=== PATIENT | female | born 1990 | race Caucasian/White ===

== ENCOUNTER 2023-07-24 13:07 | Outpatient (OUT) | payer OTHER, SELFPAY ==
--- NOTE | 2023-07-24 13:12 | US_ITS ---
[address] [address] Patient Name: JESSEE JEFFERS MRN: [id number] date: 1990 Sex: F Assigned Patient Location: [facility] Current Patient Location: [facility] Accession/Order Number: [id number] Exam Date: 07/24/2023 13:12 Report Date: 07/24/2023 14:24 At the request of: TEE RUBIN Procedure: US OB transvaginal EXAMINATION: US OB transvaginal HISTORY: MISSED MENSES COMPARISON: No relevant comparison available. FINDINGS: GESTATIONAL SAC: Present and normal appearing. YOLK SAC: Present and normal appearing. POLE: Present and normal appearing. CARDIAC: Present. UTERUS: Normal size and appearance. OVARIES: Right: Normal. Left: Normal. CERVIX: 3.7 cm in length and closed. CUL-DE-SAC: Normal. OTHER: None. AGE BY LMP: 8 weeks 4 days MEHUL BY LMP: 02/29/2024 AGE BY US CRL: 7 weeks 0 days MEHUL BY US CRL: 03/11/2024 US/US OB transvaginal IMPRESSION: 1. Single live intrauterine . Electronically authenticated by: JENNIFER HARTLEY Date: 07/24/2023 14:24
== END 2023-07-24 13:08 | disposition home or self-care (01) ==
LOC: NOMS 13:07
PROVIDERS: Visit Provider Obstetrics & Gynecology
DX: Z34.91 Encounter for supervision of normal pregnancy, unspecified, first trimester (principal); Z3A.01 Less than 8 weeks gestation of pregnancy; N92.6 Irregular menstruation, unspecified
CPT/HCPCS: 76817

== ENCOUNTER 2023-10-21 13:29 | Outpatient (REF) | payer OTHER, SELFPAY ==
[2023-10-27 10:07] LABS: Age Gdln ACOG Testing Note (.); HPV Aptima Negative (Negative); IGP, Aptima HPV, rfx 16/18,45 Note (.)
== END 2023-10-21 13:30 | disposition home or self-care (01) ==
LOC: LAB 13:29
PROVIDERS: Visit Provider Obstetrics & Gynecology
DX: Z01.419 Encounter for gynecological examination (general) (routine) without abnormal findings (principal)
CPT/HCPCS: 87624; 88175

== ENCOUNTER 2023-12-20 09:59 | Outpatient (OUT) | payer OTHER, SELFPAY ==
--- NOTE | 2023-12-20 | US_ITS ---
[address] [address] Patient Name: JESSEE JEFFERS MRN: [id number] date: 1990 Sex: F Assigned Patient Location: US Current Patient Location: Accession/Order Number: [id number] Exam Date: 12/20/2023 10:15 Report Date: 12/23/2023 13:32 At the request of: TEE RUBIN Procedure: US OB growth EXAMINATION: US OB growth HISTORY: THYROID DISEASE E07.9 COMPARISON: Ultrasound OB transvaginal 07/24/2023 FINDINGS: Heart Rate: 150 bpm Amniotic Fluid Volume: 12.4 cm; normal range Number: 1 Position: CEPHALIC BIOMETRY: BPD: 7.49 cm; 30 weeks 0 days; 88.20 % HC: 27.80 cm; 30 weeks 3 days; 82 % AC: 26.51 cm; 30 weeks 4 days; 95.40 % FL: 5.69 cm; 29 weeks 6 days; 79.50 % EFW: 1552.10 g; 96.80 % FL/AC: 21.48 FL/BPD: 76.01 HC/AC: 1.05 GESTATIONAL AGE: Age by EDC: 20 weeks 2 days MEHUL by EDC: 2024-03-11 Age by US: 30 weeks 2 days MEHUL by US: 2024-02-26 US/US OB growth IMPRESSION: 1. Single live intrauterine with growth detailed above. 2. Estimated weight is at 97th percentile. Electronically authenticated by: JENNIFER HARTLEY Date: 12/23/2023 13:32
== END 2023-12-20 10:00 | disposition home or self-care (01) ==
LOC: US 09:59
PROVIDERS: Visit Provider Obstetrics & Gynecology
DX: E07.9 Disorder of thyroid, unspecified (principal); Z3A.30 30 weeks gestation of pregnancy
CPT/HCPCS: 76816

== ENCOUNTER 2024-01-17 07:02 | Outpatient (OUT) | payer OTHER, SELFPAY ==
--- OUTSIDE RECORDS SUMMARY | 2024-01-17 07:05 | XMS_ITS | CCD ---
Author Organization [facility] ion Partnership HYPNOTHERAPIST [facility] Care Team Providers Care Biology Instructor Name Role Phone Unavailable Primary Care Provider UnavailCHELSEA Murrieta Primary Care Physician Janice De La Rosa Unavailable Unavailable Unavailable Primary Care Provider UnavailPRAVIN Mclean Admitting Unavailable PRAVIN SANDERSON Attending Unavailable PEDRO, DR OLIVEIRA Primary Care Unavailable PRAVIN SANDERSON Consulting Unavailable PEDRO, DR OLIVEIRA Admitting Unavailable PEDRO, DR OLIVEIRA Attending Unavailable MISC, DR GABRIEL Primary Care Unavailable PEDRO, DR OLIVEIRA Consulting Unavailable ZIEBER, DR JENNIFER Escudero Consulting Unavailable PEDRO, DR OLIVEIRA Admitting Unavailable PEDRO, DR OLIVEIRA Attending Unavailable PEDRO, DR OLIVEIRA Primary Care Unavailable WESLACO, DR EMELIA Luna Consulting Unavailable PEDRO, DR OLIVEIRA Consulting Unavailable Chayo Anen Attending Unavailable Roxanne MOSLEY Attending Unavailable Asaad, Imad Unavailable Anupama Brown DO Primary Care Provider Emile Mesa MD Unavailable Guillaume Vasquez DO Unavailable Anupama Brown DO Primary Care Provider Emile Mesa MD Unavailable Chelsea Kraus DO Primary Care Provider [phone] ASIF SCHAEFER Attending Unavailable CHELSEA KRAUS Referring Unavailable CHELSEA KRAUS Primary Care Unavailable Anupama Brown MD Primary Care Provider ASIF SCHAEFER Attending Unavailable EFRA, CHELSEA A Referring Unavailable EFRA, CHELSEA A Primary Care Unavailable EFRA, CHELSEA A Referring Unavailable EFRA, CHELSEA A Primary Care Unavailable HECTOR MANCERA Attending Unavailable EFRA, CHELSEA A Referring Unavailable EFRA, CHELSEA A Primary Care Unavailable KEVIN, ANUPAMA DANIELLE Primary Care Unavailabl e [facility] Unavailabl e ROSAS MCKINNEY Attending Unavailable ABHYANKAR, RONI Referring Unavailable KEVIN, ANUPAMA DANIELLE Primary Care Unavailabl e ABHYANKAR, RONI Referring Unavailable [facility] Unavailabl e PEDRO, GUILLAUME R Referring Unavailable KEVIN, ANUPAMA DANIELLE Primary Care Unavailabl e KEVIN, [facility] Primary Care Unavailabl e ELISEO SANDERSON Referring Unavailable [facility] Primary Care Unavailabl e KEVIN, [facility] Primary Care Unavailabl e PEDRO, GUILLAUME R Referring Unavailable PEDRO, GUILLAUME R Referring Unavailable KEVIN, ANUPAMA DANIELLE Primary Care Unavailabl e KEVIN, [facility] Primary Care Unavailabl e ASIF SCHAEFER Referring Unavailable Kevin DO Anupama Martin Primary Care Provider Moshe PALOMINO, Imkatlyn Unavailable Pedro DO, Guillaume R Unavailable MICHAEL VASQUEZY Attending Unavailable PEDRO, GUILLAUME Attending Unavailable PEDRO, GUILLAUME Attending Unavailable KIN ELISEO Attending Unavailable PEDRO, GUILLAUME Attending Unavailable KIN ELISEO Attending Unavailable PEDRO, GUILLAUME Attending Unavailable PEDRO, GUILLAUME Attending Unavailable PEDRO, GUILLAUME Attending Unavailable Unavailable Primary Care Provider Unavailabl e Medications Current Medications Medication Drug Class(es) Dates Sig (Normalized) Sig (Original) amoxicillin 500 mg oral capsule (1 source) Penicillin-class Antibacterial Start: 05-26-2022 End: 06-05-2022 take 1 capsule by mouth every twelve hours amoxicillin 500 mg Cap 500 mg = 1 cap(s), Oral, q12hr, X 10 day(s), # 20 cap(s), Refills(s) 0, Pharmacy: [facility], 172, cm, 05/26/22 9:34:00 EST, Height/Length Dosing, 83.6, kg, 05/26/22 9:34:00 EST, Weight Dosing Start Date: 05/26/22 Stop Date: 06/05/22 Status: Ordered Biotin (13 sources) Start: 05-26-2022 biotin Refills(s) 0 Start Date: 05/26/22 Status: Ordered BIOTIN ORAL Take by mouth. Active biotin 1 MG caps ule Biotin 0 Active biotin 5 mg tabl et Take by mouth. 0 Active BIOTIN ORAL Take by mouth. 0 Active Comment on above: Take by mouth. desogestrel 0.15 mg / ethinyl estradiol 0.03 mg oral tablet (2 sources) Progestin, Estrogen Start: 4 End: 4 take 1 tablet by mouth in the morning, then take 1 tablet by mouth once daily desogestrel-ethinyl estradiol (Apri) 0.15-30 MG-MCG tablet Indications: Menorrhagia with regular cycle Take 1 tablet by mouth in the morning. Take 1 tablet by mouth daily. 90 tablet 0 05/29/2023 08/27/2023 Active levothyroxine sodium 0.2 mg oral tablet (20 sources) l-Thyroxine Start: 3 take 1 tablet by mouth once daily levothyroxine (SYNTHROID) 200 mcg tablet Take 1 tablet by mouth once daily. 90 tablet 11/18/2022 Active Start: 05-26-2022 levothyroxine 175 mcg (0.175 mg) oral capsule Refills(s) 0 Start Date: 05/26/22 Status: Ordered Start: 09-11-2021 End: 11-19-2022 take 1 tablet by mouth once daily levothyroxine (SYNTHROID) 175 mcg tablet Take 1 tablet by mouth once daily. 90 tablet 3 09/11/2021 11/19/2022 Discontinued (Dosage adjustment) take 1 tablet by suzanna th every twenty-four hours Levothyroxine Sodium 175 MCG 1 tablet Orally Once a day for 90 days Active Comment on above: Take 1 tablet by suzanna th once daily. Take 1 tablet by suzanna th once daily in the morning lisinopril 40 mg oral tablet (20 sources) Angiotensin Converting Enzyme Inhibitor Start: 11-13-2022 take 1 tablet by mouth once daily lisinopril (ZESTRIL) 40 mg tablet Take 1 tablet by mouth once daily. 90 tablet 3 11/13/2022 Active Start: 01-30-2022 End: 02-25-2023 take 1 tablet by mouth once daily lisinopril (ZESTRIL) 20 mg tablet Take 1 tablet by mouth once daily. Take 20-30 minutes before eating or taking other medications 30 tablet 5 01/30/2022 02/25/2023 Discontinued Start: 11-01-2021 End: 02-25-2023 take 1 tablet by mouth once daily lisinopril (ZESTRIL, PRINIVIL) 10 mg tablet Take 1 tablet by mouth once daily. 30 tablet 2 11/01/2021 02/25/2023 Discontinued Start: 09-11-2021 End: 02-25-2023 take 1 tablet by mouth once daily lisinopril (ZESTRIL, PRINIVIL) 5 mg tablet Take 1 tablet by mouth once daily. 30 tablet 2 09/11/2021 02/25/2023 Discontinued Comment on above: Take 1 tablet by suzanna th once daily. Take 1 tablet by suzanna th once daily. Take 20-30 minutes before eating or taking other medications evening dosing 24 hr methylphenidate hydrochloride 20 mg extended release oral capsule (7 sources) Central Nervous System Stimulant Start: End: take 1 capsule by mouth once daily methylphenidate HCl (JORNAY PM) 20 mg capsule,del rel,ext rel sprink Indications: Attention deficit hyperactivity disorder (ADHD), predominantly inattentive type Take 20 mg by mouth nightly for 15 days. Max Daily Amount: 20 mg 15 each 0 05/02/2023 05/17/2023 Active Start: 12-17-2022 End: 02-25-2023 take 1 tablet by mouth once daily in the morning methylphenidate ER 27 mg biphasic tablet Take 1 tablet by mouth every morning. Max Daily Amount: 27 mg 15 tablet 12/17/2022 02/25/2023 Discontinued Start: 12-03-2022 End: 02-25-2023 take 1 tablet by mouth once daily in the morning methylphenidate ER 18 mg biphasic tablet Take 1 tablet (18 mg total) by mouth every morning. Max Daily Amount: 18 mg 15 tablet 12/03/2022 02/25/2023 Discontinued Comment on above: Take 1 tablet (18 mg total) by mouth every morning. Max Daily Amount: 18 mg Take 1 tablet by suzanna th every morning. Max Daily Amount: 27 mg mupirocin 0.02 mg/mg topical ointment (13 sources) RNA Synthetase Inhibitor Antibacterial Start: 2 mupirocin (BACTROBAN) 2 % ointment Apply to affected area three times a day 22 g 09/11/2021 Active Comment on above: Apply to affected ar ea three times a day omeprazole 20 mg delayed release oral capsule (20 sources) Proton Pump Inhibitor Start: 3 take 1 capsule by mouth twice daily omeprazole (PRILOSEC) 20 mg capsule Take 1 capsule by mouth twice daily. 180 capsule 1 11/13/2022 Active Start: 01-30-2022 End: 02-25-2023 take 1 capsule by mouth once daily omeprazole (PRILOSEC) 20 mg capsule Take 1 capsule by mouth once daily. 20-30 minutes before eating or taking other medications 30 capsule 5 01/30/2022 02/25/2023 Discontinued Start: 09-11-2021 take 1 capsule by mo ut once daily in the morning omeprazole (PRILOSEC) 40 mg capsule Take 1 capsule by mouth once daily in the morning, wait 20-30 minutes before eating or taking other medications 90 capsule 1 12/31/2021 Active Comment on above: Take 1 capsule by mo ut once daily. Wait 20-30 minutes before eating or taking other medications. Take 1 capsule by mo ut once daily in the morning, wait 20-30 minutes before eating or taking other medications Take 1 capsule by mo ut once daily. 20-30 minutes before eating or taking other medications Take 1 tablet by suzanna once daily in the morning, 20-30 minutes before eating or taking other medications Take 1 capsule by mo ut twice daily. PNV no.95/ferrous fum/folic ac ( ORAL) (8 sources) PNV no.95/ferrou s fum/folic ac ( ORAL) Take by mouth. Active PNV no.95/ferrou s fum/folic ac ( ORAL) Take by mouth. 0 Active Comment on above: Take by mouth. 25/iron fum/folic/dha (-1 ORAL) (1 source) take 1 tablet by mouth once daily 25/iron fum/folic/dha (-1 ORAL) Take 1 tablet by mouth daily. 0 Active Multivitamins (1 source) Start: 3 take 1 tablet by mouth once daily Multivitamins 1 tab(s), Oral, Daily, Refill(s) 0 Start Date: 05/26/22 Status: Ordered MV-Min-Fe Fum-FA-DHA ( 1 PO) (3 sources) MV-Min- Fe Fum-FA-DHA ( 1 PO) Take by mouth. 0 Active traZODone hydrochloride 100 mg oral tablet (11 sources) Serotonin Reuptake Inhibitor Start: 3 traZODone (Desyrel) 100 MG tablet Take 100 mg by mouth as needed at bedtime. 0 02/26/2023 Active Start: 10-30-2022 End: 02-25-2023 take 1 tablet by mouth at bedtime as needed for sleep traZODone (DESYREL) 50 mg tablet Take 1 tablet (50 mg total) by mouth at bedtime as needed for sleep. 30 tablet 6 01/29/2023 Active Comment on above: Take 1 tablet (50 mg total) by mouth nightly as needed for sleep. Take 1 tablet (50 mg total) by mouth at bedtime as needed for sleep. Completed/Discontinued Medications Medication Drug Class(es) Dates Sig (Normalized) Sig (Original) amphetamine aspartate 2.5 mg / amphetamine sulfate 2.5 mg / dextroamphetamine saccharate 2.5 mg / dextroamphetamine sulfate 2.5 mg oral tablet (7 sources) Central Nervous System Stimulant Start: 03-27-2023 End: 05-02-2023 take 1 tablet by mouth in the morning dextroamphetamine- amphetamine (AdderalL) 10 mg tablet Indications: Attention deficit hyperactivity disorder (ADHD), predominantly inattentive type Take 1 tablet by mouth in the morning. Take 1 tablet by mouth after lunch. 30 tablet 0 03/27/2023 05/02/2023 Discontinued (Alternate therapy) Start: 02-11-2023 take 1 capsule by [facility] once daily in the morning amphetamine-dextroamphetamine XR (ADDERA LL XR) 20 mg capsule Take 1 capsule (20 mg total) by mouth in the morning for 15 days. Max Daily Amount: 20 mg. 15 capsule 02/11/2023 Active Start: 01-29-2023 End: 02-25-2023 take 1 capsule by mouth once daily in the morning amphetamine-dextroamphetamine XR (ADDERA LL XR) 10 mg capsule Take 1 capsule (10 mg total) by mouth in the morning for 15 days. Max Daily Amount: 10 mg. 15 capsule 01/29/2023 02/25/2023 Discontinued Comment on above: Take 1 capsule (10 m g total) by mouth in the morning for 15 days. Max Daily Amount: 10 mg. Take 1 capsule (20 m g total) by mouth in the morning for 15 days. Max Daily Amount: 20 mg. atomoxetine 40 mg oral capsule (12 sources) Norepinephrine Reuptake Inhibitor Start: End: take 1 capsule by mouth once daily in the morning atomoxetine (STRATTERA) 40 mg capsule Take 1 capsule by mouth once daily in the morning. 30 capsule 11/07/2021 02/25/2023 Discontinued Comment on above: Take 1 capsule by mo uth once daily in the morning. bifidobacterium infantis 4 mg oral capsule (7 sources) Start: End: take 1 capsule by mouth once daily Bifidobacterium Infantis (ALIGN) 4 mg cap Take 1 capsule by mouth once daily. 30 capsule 3 07/10/2022 02/25/2023 Discontinued Comment on above: Take 1 capsule by mo uth once daily. citalopram 20 mg oral tablet (13 sources) Serotonin Reuptake Inhibitor Start: End: take 1 tablet by mouth once daily citalopram (CELEXA) 20 mg tablet Indications: mental disorders of mother Take 1 tablet by mouth daily 30 tablet 3 10/12/2020 02/25/2023 Discontinued Comment on above: Take 1 tablet by suzanna th daily doxycycline hyclate 100 mg oral capsule (8 sources) Tetracycline-class Drug Start: End: take 1 capsule by mouth twice daily doxycycline hyclate (VIBRAMYCIN) 100 mg capsule Take 1 capsule by mouth twice daily. 28 capsule 12/12/2021 02/25/2023 Discontinued Comment on above: Take 1 capsule by [facility] twice daily. escitalopram 20 mg oral tablet (20 sources) Serotonin Reuptake Inhibitor Start: 022 End: 023 take 1 tablet by mouth once daily escitalopram oxalate (LEXAPRO) 20 mg tablet Take 1 tablet by mouth once daily. 90 tablet 1 09/11/2021 02/25/2023 Discontinued Start: 08-16-2021 End: 02-25-2023 take 1 tablet by mouth once daily escitalopram oxalate (LEXAPRO) 10 mg tablet Take 1 tablet by mouth once daily. 30 tablet 2 08/16/2021 02/25/2023 Discontinued Comment on above: Take 1 tablet by [facility] once daily. fluconazole 150 mg oral tablet (8 sources) Azole Antifungal Start: 02-07-20 End: 02-26-20 take 1 tablet by mouth once fluconazole (DIFLUCAN) 150 mg tablet 1 (one) tablet by mouth one time dose 1 tablet 1 02/06/2022 02/25/2023 Discontinued Comment on above: 1 (one) tablet by [facility] one time dose hydrOXYzine hydrochloride 50 mg oral tablet (17 sources) Antihistamine Start: 08-09-19 End: 02-26-20 take 1 tablet by mouth every eight hours as needed hydrOXYzine HCl (ATARAX) 50 mg tablet Take 1 tablet by mouth three times daily as needed. 90 tablet 3 08/08/2022 02/25/2023 Discontinued Start: 10-16-2021 End: 02-25-2023 take 1 tablet by mouth three times daily as needed hydrOXYzine HCl (ATARAX) 25 mg tablet Take 1 tablet by mouth three times daily as needed. 90 tablet 10/16/2021 02/25/2023 Discontinued Comment on above: Take 1 tablet by [facility] three times daily as needed. 10 ml lidocaine hydrochloride 10 mg/ml injection (1 source) Antiarrhythmic, Amide Local Anesthetic Start: 3 End: 3 lidocaine (PF) 10 mg/mL (1 %) 4 mL injection (XYLOCAINE) 1 ml medroxyPROGESTERone acetate 150 mg/ml prefilled syringe (20 sources) Progestin Start: 1 End: medroxyPROGESTERone (DEPO-PROVERA) 150 mg/mL Indications: Excessive or frequent menstruation Inject 1 (one) Milliliter every 12 weeks 1 mL 3 09/26/2020 02/25/2023 Discontinued Start: 08-23-2020 End: 02-25-2023 medroxyPROGESTERone (DEPO-WV OVERA) 150 mg/mL injection Indications: Excessive or frequent menstruation Inject 1 mL intramuscularly every 11-12 weeks 1 mL 3 08/23/2020 02/25/2023 Discontinued Comment on above: Inject 1 mL intramus cularly every 11-12 weeks Inject 1 (one) Mara liter every 12 weeks 20 ml ropivacaine hydrochloride 5 mg/ml injection (1 source) Amide Local Anesthetic Start: End: ROPivacaine (PF) 5 mg/mL (0.5 %) 4 mL injection (NAROPIN) 1 ml triamcinolone acetonide 40 mg/ml injection (1 source) Corticosteroid Start: End: triamcinolone acetonide 80 mg injection (KeNALog 40) 24 hr venlafaxine 150 mg extended release oral capsule (20 sources) Serotonin and Norepinephrine Reuptake Inhibitor Start: End: take 1 capsule by mouth every twenty-four hours in the morning venlafaxine ER (EFFEXOR XR) 150 mg 24 hr capsule Take 1 capsule (150 mg total) by mouth in the morning. 30 capsule 6 01/29/2023 10/16/2023 Discontinued (Discontinued by another Health Care Provider) Start: 08-08-2022 End: 02-25-2023 take 1 capsule by mouth every twenty-four hours in the morning venlafaxine ER (EFFEXOR XR) 37.5 mg 24 hr capsule Take 1 capsule (37.5 mg total) by mouth in the morning. 30 capsule 3 08/08/2022 02/25/2023 Discontinued Start: 05-26-2022 Effexor XR 75 mg Cap-ER Refills(s) 0 Start Date: 05/26/22 Status: Ordered Start: 12-05-2021 End: 02-25-2023 take 1 capsule by mouth once daily venlafaxine ER (EFFEXOR XR) 75 mg 24 hr capsule Take 1 capsule by mouth once daily. 90 capsule 1 07/24/2022 02/25/2023 Discontinued Start: 11-07-2021 End: 02-25-2023 take 1 capsule by mouth once daily at mealtime venlafaxine ER (EFFEXOR XR) 37.5 mg 24 hr capsule Take 1 capsule by mouth once daily with food. 30 capsule 11/07/2021 02/25/2023 Discontinued Effexor Active Comment on above: Take 1 capsule by mo uth once daily with food. Take 1 capsule by mo uth once a day Take 1 capsule by mo uth once daily. Take 1 capsule (37.5 mg total) by mouth in the morning. Take 1 capsule (150 mg total) by mouth in the morning. Problems Active Problems Problem Classification Problem Date Documented Da te Episodic/Chronic Anxiety disorders (4 sources) Generalized anxiety disorder; Translations: [Generalized anxiety disorder] Onset: 08-08-2022 05-02-2023 Chronic Attention-deficit, conduct, and disruptive behavior disorders (2 sources) Attention deficit hyperactivity disorder, predominantly inattentive type; Translations: [Attention-deficit hyperactivity disorder, predominantly inattentive type] Onset: 12-03-2022 05-02-2023 Chronic Attention-deficit, conduct, and disruptive behavior disorders (2 sources) Attention-deficit hyperactivity disorder, predominantly inattentive type; Translations: [Attention-deficit hyperactivity disorder, predominantly inattentive type] Onset: 12-03-2022 Chronic Deficiency and other anemia (1 source) Vegan's anemia; Translations: [Other dietary vitamin B12 deficiency anemia] 11-15-2022 Episodic Disorders of lipid metabolism (2 sources) Raised low density lipoprotein cholesterol; Translations: [Pure hypercholesterolemi a, unspecified] 11-15-2022 Chronic Essential hypertension (1 source) Malignant essential hypertension; Translations: [Essential (primary) hypertension] 11-15-2022 Chronic Genitourinary symptoms and ill-defined conditions (2 sources) Dysuria; Translations: [Dysuria] Episodic Hypertension complicating ; childbirth and the puerperium (1 source) Unspecified maternal hypertension, first trimester; Translations: [Unspecified maternal hypertension, first trimester] Onset: 09-16-2023 Chronic Menstrual disorders (5 sources) Irregular periods; Translations: [Irregular menstruation, unspecified] Onset: 06-02-2023 06-02-2023 Chronic Mood disorders (5 sources) Recurrent major depressive episodes, mild ; Translations: [Major depressive disorder, recurrent, mild] Onset: 08-08-2022 Chronic Other bone disease and musculoskeletal deformities (6 sources) Disorder of thigh; Translations: [Disorder of bone, unspecified] Episodic Other connective tissue disease (2 sources) Trochanteric bursitis; Translations: [Trochanteric bursitis, right hip] Onset: 02-25-2023 02-25-2023 Episodic Other female genital disorders (4 sources) Abnormal uterine and vaginal bleeding, unspecified; Translations: [ABNORMAL UTERINE VAGINAL BLEED UNS] Onset: 02-09-2022 Chronic Other female genital disorders (1 source) Polyp of corpus uteri; Translations: [POLYP OF CORPUS UTERI] Onset: 02-13-2022 Episodic Other gastrointestinal disorders (1 source) Constipation; Translations: [Constipation, unspecified] Episodic Other gastrointestinal disorders (1 source) Flatulence, eructation and gas pain; Translations: [Abdominal distension (gaseous)] Episodic Other gastrointestinal disorders (1 source) Altered bowel function; Translations: [Change in bowel habit] Episodic Other gastrointestinal disorders (1 source) Diarrhea; Translations: [Diarrhea, unspecified] Episodic Other gastrointestinal disorders (1 source) Constipation, unspecified Episodic Other gastrointestinal disorders (1 source) Change in bowel habit Episodic Other gastrointestinal disorders (1 source) Diarrhea, unspecified Episodic Other gastrointestinal disorders (1 source) Abdominal distension (gaseous) Episodic Other non-traumatic joint disorders (2 sources) Hip pain; Translations: [Pain in right hip] Onset: 02-25-2023 02-25-2023 Episodic Other non-traumatic joint disorders (1 source) Pain in right hip joint; Translations: [Pain in right hip] 02-25-2023 Episodic Other nutritional; endocrine; and metabolic disorders (1 source) Overweight in adulthood with body mass index of 25 or more but less than 30; Translations: [Body mass index (BMI) 28.0-28.9, adult] Onset: 05-26-2022 Episodic Other screening for suspected conditions (not mental disorders or infectious disease) (3 sources) No current problems or disability; Translations: [Encounter for other specified screening] Onset: 10-16-2023 10-07-2013 Episodic Other upper respiratory infections (1 source) Streptococcal sore throat; Translations: [Streptococcal pharyngitis] Onset: 05-26-2022 Episodic Residual codes; unclassified (1 source) Insomnia, unspecified; Translations: [Insomnia, unspecified] Onset: 06-04-2023 Episodic Spondylosis; intervertebral disc disorders; other back problems (3 sources) Acute back pain with sciatica; Translations: [Lumbago with sciatica, left side] Onset: 02-25-2023 Episodic Sprains and strains (1 source) Sprain of left foot; Translations: [Unspecified sprain of left foot, initial encounter] Onset: 02-23-2022 Episodic Thyroid disorders (6 sources) Hypothyroidism; Translations: [Hypothyroidism, unspecified] Chronic Unclassified (1 source) mfm video visit Onset: 10-16-2023 Past or Other Problems Problem Classification Problem Date Documented Da te Episodic/Chronic Abdominal pain (5 sources) Pain in pelvis; Translations: [Pelvic and perineal pain] Onset: 01-08-2022 Episodic Mood disorders (1 source) Mood disorders Onset: 08-08-2022 08-08-2022 Other bone disease and musculoskeletal deformities (2 sources) Disorder of bone, unspecified; Translations: [Disorder of bone and cartilage, unspecified] Onset: 02-20-2023 02-25-2023 Episodic Other complications of (1 source) Hypothyroidism in ; Translations: [Endocrine, nutritional and metabolic diseases complicating , unspecified trimester] Onset: 07-02-2019 07-02-2019 Episodic Results Test Name Value Interpretation Reference Range Facil ity T4 Free SerPl-mCncon 024 Free T4 [Mass/Vol] 0.9 ng/dL Normal 0.9-1.[address] [facility] Comment on above: Order Comment: Speci men Type: BLOOD SPECIMEN Ordering Facility: [facility] Karina Address: [address] [place] [address] [place] [address] Performed By: #### 3 024-7, 3016-3 #### [facility] CLIA [id number] [address] [place] [address] [place] TSH SerPl-aCncon 01-05-2024 TSH Qn 1.220 m[IU]/L Normal 0.270-4.200 [facility] Comment on above: Order Comment: Tammy mares Type: BLOOD SPECIMEN Ordering Facility: [facility] Karina Address: [address] [place], [place] [address] [place] [address] Result Comment: If t he patient is , TSH reference range varies by gestational period: First Trimester (weeks 9-12): 0.180-2.990 mIU/L Second Trimester: 0.110-3.980 mIU/L Third Trimester: 0.480-4.710 mIU/L Manuel Grayson et al. A Practical Approach for the Verifications and Determination of Site- and Trimester-Specific Reference Intervals for Thyroid Function tests in . Thyroid, 2019:29:3:412-420. Emanuel Nassar, et al. 2017 Guidelines of the [place] [employer] for the Diagnosis and Management of Thyroid Disease during and the . Thyroid, 2017:27:3:315-389. Performed By: #### 3 024-7, 3016-3 #### [facility] CLIA [id number] [address] [place] [address] [place] T4 Free SerPl-mCncon 024 Free T4 [Mass/Vol] 1.1 ng/dL Normal 0.9-1.[address] [facility] Comment on above: Order Comment: Tammy mares Type: BLOOD SPECIMEN Ordering Facility: External Submitter Address: , , Performed By: #### 3 1201-7, 5195-3 #### [facility] CLIA [id number] [address] [place], [place] [id number] [place] TSH SerPl-aCncon 12-08-2023 TSH Qn 0.607 m[IU]/L Normal 0.270-4.200 [facility] Comment on above: Order Comment: Tammy mares Type: BLOOD SPECIMEN Ordering Facility: External Submitter Address: , , Result Comment: If t he patient is , TSH reference range varies by gestational period: First Trimester (weeks 9-12): 0.180-2.990 mIU/L Second Trimester: 0.110-3.980 mIU/L Third Trimester: 0.480-4.710 mIU/L Manuel Grayson et al. A Practical Approach for the Verifications and Determination of Site- and Trimester-Specific Reference Intervals for Thyroid Function tests in . Thyroid, 2019:29:3:412-420. Emanuel Nassar et al. 2017 Guidelines of the [place] [employer] Association for the Diagnosis and Management of Thyroid Disease during and the . Thyroid, 2017:27:3:315-389. Performed By: #### 3 1201-7, 5194-3 #### [facility] CLIA [id number] [address] [place] [address] [place] CBC W Auto Differential pane l (Bld)on 11-20-2023 Basophils (Bld) [#/Vol] 0.04 10*3/uL Normal <0.11 [facility] Comment on above: Order Comment: Speci men Type: BLOOD SPECIMEN Ordering Facility: External Submitter Address: , , Performed By: #### 3 1201-7, 3 #### [facility] CLIA [id number] [address] [place] [address] [place] Basophils/100 WBC (Bld) 0.6 % Normal [facility] Comment on above: Order Comment: Speci men Type: BLOOD SPECIMEN Ordering Facility: External Submitter Address: , , Performed By: #### 3 1201-7, 3 #### [facility] CLIA [id number] [address] [place] [address] [place] Differential cell count method Nom (Bld) Auto Normal [facility] Comment on above: Order Comment: Speci men Type: BLOOD SPECIMEN Ordering Facility: External Submitter Address: , , Performed By: #### 3 1201-7, 3 #### [facility] CLIA [id number] [address] [place] [address] [place] Eosinophils (Bld) [#/Vol] 0.05 10*3/uL Normal <0.46 [facility] Comment on above: Order Comment: Speci men Type: BLOOD SPECIMEN Ordering Facility: External Submitter Address: , , Performed By: #### 3 120-7, 5194-06 #### [facility] CLIA [id number] [address] [place] [address] [place] Eosinophils/100 WBC (Bld) 0.7 % Normal [facility] Comment on above: Order Comment: Speci men Type: BLOOD SPECIMEN Ordering Facility: External Submitter Address: , , Performed By: #### 3 1207, 5194-06 #### [facility] CLIA [id number] [address] [place] [address] [place] Erythrocyte distribution width (RBC) [Ratio] 12.9 % Normal 11.5-15.0 [facility] Comment on above: Order Comment: Speci men Type: BLOOD SPECIMEN Ordering Facility: External Submitter Address: , , Performed By: #### 3 1207, 5194-06 #### [facility] CLIA [id number] [address] [place] [address] [place] Hematocrit (Bld) [Volume fraction] 35.0 % Low 36.0-46.0 [facility] Comment on above: Order Comment: Speci men Type: BLOOD SPECIMEN Ordering Facility: External Submitter Address: , , Performed By: #### 3 1207, 5194-06 #### [facility] CLIA [id number] [address] [place] [address] [place] Hemoglobin (Bld) [Mass/Vol] 11.4 g/dL Low 11.5-15.5 [facility] Comment on above: Order Comment: Speci men Type: BLOOD SPECIMEN Ordering Facility: External Submitter Address: , , Performed By: #### 3 1207, 5194-06 #### [facility] CLIA [id number] [address] [place] [address] [place] Immature granulocytes (Bld) [#/Vol] 10*3/uL Normal <0.10 [facility] Comment on above: Order Comment: Speci men Type: BLOOD SPECIMEN Ordering Facility: External Submitter Address: , , Performed By: #### 3 120-7, 3 #### [facility] CLIA [id number] [address] [place] [address] [place] Immature granulocytes/100 WBC (Bld) 0.3 % Normal [facility] Comment on above: Order Comment: Speci men Type: BLOOD SPECIMEN Ordering Facility: External Submitter Address: , , Performed By: #### 3 1207, 5194-06 #### [facility] CLIA [id number] [address] [place] [address] [place] Lymphocytes (Bld) [#/Vol] 1.25 10*3/uL Normal 1.00-4.00 [facility] Comment on above: Order Comment: Speci men Type: BLOOD SPECIMEN Ordering Facility: External Submitter Address: , , Performed By: #### 3 1207, 3 #### [facility] CLIA [id number] [address] [place] [address] [place] Lymphocytes/100 WBC (Bld) 18.3 % Normal [facility] Comment on above: Order Comment: Speci men Type: BLOOD SPECIMEN Ordering Facility: External Submitter Address: , , Performed By: #### 3 1207, 3 #### [facility] CLIA [id number] [address] [place] [address] [place] MCH (RBC) [Entitic mass] 29.9 pg Normal 26.0-34.0 [facility] Comment on above: Order Comment: Speci men Type: BLOOD SPECIMEN Ordering Facility: External Submitter Address: , , Performed By: #### 3 1201-7, 3 #### [facility] CLIA [id number] [address] [place] [address] [place] MCHC (RBC) [Mass/Vol] 32.6 g/dL Normal 30.5-36.0 [facility] Comment on above: Order Comment: Speci men Type: BLOOD SPECIMEN Ordering Facility: External Submitter Address: , , Performed By: #### 3 1207, 5194-06 #### [facility] CLIA [id number] [address] [place] [address] [place] MCV (RBC) [Entitic vol] 91.9 fL Normal 80.0-100.0 [facility] Comment on above: Order Comment: Speci men Type: BLOOD SPECIMEN Ordering Facility: External Submitter Address: , , Performed By: #### 3 1207, 5194-06 #### [facility] CLIA [id number] [address] [place] [address] [place] Monocytes (Bld) [#/Vol] 0.52 10*3/uL Normal <0.87 [facility] Comment on above: Order Comment: Speci men Type: BLOOD SPECIMEN Ordering Facility: External Submitter Address: , , Performed By: #### 3 1200-10, 5194-06 #### [facility] CLIA [id number] [address] [place] [address] [place] Monocytes/100 WBC (Bld) 7.6 % Normal [facility] Comment on above: Order Comment: Speci men Type: BLOOD SPECIMEN Ordering Facility: External Submitter Address: , , Performed By: #### 3 1207, 5194-06 #### [facility] CLIA [id number] [address] [place] [address] [place] Neutrophils (Bld) [#/Vol] 4.94 10*3/uL Normal 1.45-7.50 [facility] Comment on above: Order Comment: Speci men Type: BLOOD SPECIMEN Ordering Facility: External Submitter Address: , , Performed By: #### 3 1207, 5194-06 #### [facility] CLIA [id number] [address] [place] [id number] [place] Neutrophils/100 WBC (Bld) 72.5 % Normal [facility] Comment on above: Order Comment: Speci men Type: BLOOD SPECIMEN Ordering Facility: External Submitter Address: , , Performed By: #### 3 1201-7, 3 #### [facility] CLIA [id number] [address] [place] [address] [place] Nucleated RBC (Bld) [#/Vol] 10*3/uL Normal <0.01 [facility] Comment on above: Order Comment: Speci men Type: BLOOD SPECIMEN Ordering Facility: External Submitter Address: , , Performed By: #### 3 1207, 5194-06 #### [facility] CLIA [id number] [address] [place] [address] [place] Nucleated RBC/100 WBC (Bld) [Ratio] 0.0 /100 WBC Normal [facility] Comment on above: Order Comment: Speci men Type: BLOOD SPECIMEN Ordering Facility: External Submitter Address: , , Performed By: #### 3 1207, 5194-06 #### [facility] CLIA [id number] [address] [place] [address] [place] Platelet mean volume (Bld) [Entitic vol] 11.4 fL Normal 9.0-12.7 [facility] Comment on above: Order Comment: Speci men Type: BLOOD SPECIMEN Ordering Facility: External Submitter Address: , , Performed By: #### 3 1201-7, 3 #### [facility] CLIA [id number] [address] [place] [address] [place] Platelets (Bld) [#/Vol] 167 10*3/uL Normal 150-400 [facility] Comment on above: Order Comment: Speci men Type: BLOOD SPECIMEN Ordering Facility: External Submitter Address: , , Performed By: #### 3 1201-7, 5194-3 #### [facility] CLIA [id number] [address] [place] [address] [place] RBC (Bld) [#/Vol] 3.81 10*6/uL Low 3.90-5.20 [facility] Comment on above: Order Comment: Speci men Type: BLOOD SPECIMEN Ordering Facility: External Submitter Address: , , Performed By: #### 3 1201-7, 5194-3 #### [facility] CLIA [id number] [address] [place] [address] [place] WBC (Bld) [#/Vol] 6.82 10*3/uL Normal 3.70-11.00 [facility] Comment on above: Order Comment: Speci men Type: BLOOD SPECIMEN Ordering Facility: External Submitter Address: , , Performed By: #### 3 1201-7, 5194-3 #### [facility] CLIA [id number] [address] [place] [address] [place] GESTATIONAL GLUCOSE SCREEN, 1-HOUR, 50 GRAM, NON-FASTINGon 11-20-2023 Glucose [Mass/Vol] 97 mg/dL Normal 74-[address] [facility] Comment on above: Order Comment: Speci men Type: BLOOD SPECIMEN Ordering Facility: [facility] [place] Address: [address] [place] [address] , [place] [address] Result Comment: [facility] Congress of Obstetricians and Gynecologists (Alma/Adrián) guidelines state a gestational diabetes mellitus positive screen is made, in women not previously diagnosed with overt diabetes, when the 1 hr plasma glucose level is equal to or above 140 mg/dL. The [facility] [employer] and [facility] recommends a 135 mg/dL cutoff. Performed By: #### G LTGST #### [facility] CLIA [id number] [address] [place] [id number] [place] T4 Free SerPl-mCncon 024 Free T4 [Mass/Vol] 1.0 ng/dL Normal 0.9-1.[address] [facility] Comment on above: Order Comment: Speci men Type: BLOOD SPECIMEN Ordering Facility: [facility] [place] Address: [facility] [address] [place] [address] Performed By: #### 3 024-7, 3016-3 #### [facility] CLIA [id number] [address] [place] [address] [place] TSH SerPl-aCncon 10-22-2023 TSH Qn 4.510 m[IU]/L High 0.270-4.200 [facility] Comment on above: Order Comment: Speci vishnu Type: BLOOD SPECIMEN Ordering Facility: [facility] [place] Address: [facility] [address] [place] [address] Result Comment: If t he patient is , TSH reference range varies by gestational period: First Trimester (weeks 9-12): 0.180-2.990 mIU/L Second Trimester: 0.110-3.980 mIU/L Third Trimester: 0.480-4.710 mIU/L Manuel Grayson et al. A Practical Approach for the Verifications and Determination of Site- and Trimester-Specific Reference Intervals for Thyroid Function tests in . Thyroid, 2019:29:3:412-420. Emanuel Nassar, et al. 2017 Guidelines of the [place] Thyroid Association for the Diagnosis and Management of Thyroid Disease during and the . Thyroid, 2017:27:3:315-389. Performed By: #### 3 024-7, 3015-3 #### [facility] CLIA [id number] [address] [place] [address] [place] CBC W Auto Differential pane l (Bld)on 08-08-2023 Basophils (Bld) [#/Vol] 10*3/uL Normal <0.11 [facility] Comment on above: Order Comment: Speci men Type: BLOOD SPECIMEN Ordering Facility: External Submitter Address: , , Performed By: #### 5 7021-8 #### [facility] CLIA [id number] [address] [place] [address] Basophils/100 WBC (Bld) 0.3 % Normal [facility] Comment on above: Order Comment: Speci men Type: BLOOD SPECIMEN Ordering Facility: External Submitter Address: , , Performed By: #### 5 7021-8 #### [facility] CLIA [id number] [address] [place] [address] Differential cell count method Nom (Bld) Auto Normal [facility] Comment on above: Order Comment: Speci men Type: BLOOD SPECIMEN Ordering Facility: External Submitter Address: , , Performed By: #### 5 7021-8 #### [facility] CLIA [id number] [address] [place] [address] Eosinophils (Bld) [#/Vol] 0.06 10*3/uL Normal <0.46 [facility] Comment on above: Order Comment: Speci men Type: BLOOD SPECIMEN Ordering Facility: External Submitter Address: , , Performed By: #### 5 7021-8 #### [facility] CLIA [id number] [address] [place] [address] Eosinophils/100 WBC (Bld) 0.9 % Normal [facility] Comment on above: Order Comment: Speci men Type: BLOOD SPECIMEN Ordering Facility: External Submitter Address: , , Performed By: #### 5 7021-8 #### [facility] CLIA [id number] [address] [place] [address] Erythrocyte distribution width (RBC) [Ratio] 13.7 % Normal 11.5-15.0 [facility] Comment on above: Order Comment: Speci men Type: BLOOD SPECIMEN Ordering Facility: External Submitter Address: , , Performed By: #### 5 7021-8 #### [facility] CLIA [id number] [address] [place] [address] Hematocrit (Bld) [Volume fraction] 40.1 % Normal 36.0-46.0 [facility] Comment on above: Order Comment: Speci men Type: BLOOD SPECIMEN Ordering Facility: External Submitter Address: , , Performed By: #### 5 7021-8 #### [facility] CLIA [id number] [address] [place] [address] Hemoglobin (Bld) [Mass/Vol] 13.4 g/dL Normal 11.5-15.5 [facility] Comment on above: Order Comment: Speci men Type: BLOOD SPECIMEN Ordering Facility: External Submitter Address: , , Performed By: #### 5 7021-8 #### [facility] CLIA [id number] [address] [place] [address] Immature granulocytes (Bld) [#/Vol] 10*3/uL Normal <0.10 [facility] Comment on above: Order Comment: Speci men Type: BLOOD SPECIMEN Ordering Facility: External Submitter Address: , , Performed By: #### 5 7021-8 #### [facility] CLIA [id number] [address] [place] [address] Immature granulocytes/100 WBC (Bld) 0.3 % Normal [facility] Comment on above: Order Comment: Speci men Type: BLOOD SPECIMEN Ordering Facility: External Submitter Address: , , Performed By: #### 5 7021-8 #### [facility] CLIA [id number] [address] [place] [address] Lymphocytes (Bld) [#/Vol] 1.67 10*3/uL Normal 1.00-4.00 [facility] Comment on above: Order Comment: Speci men Type: BLOOD SPECIMEN Ordering Facility: External Submitter Address: , , Performed By: #### 5 7021-8 #### [facility] CLIA [id number] [address] [place] [address] Lymphocytes/100 WBC (Bld) 24.9 % Normal [facility] Comment on above: Order Comment: Speci men Type: BLOOD SPECIMEN Ordering Facility: External Submitter Address: , , Performed By: #### 5 7021-8 #### [facility] CLIA [id number] [address] [place] [address] MCH (RBC) [Entitic mass] 31.1 pg Normal 26.0-34.0 [facility] Comment on above: Order Comment: Speci men Type: BLOOD SPECIMEN Ordering Facility: External Submitter Address: , , Performed By: #### 5 7021-8 #### [facility] CLIA [id number] [address] [place] [address] MCHC (RBC) [Mass/Vol] 33.4 g/dL Normal 30.5-36.0 [facility] Comment on above: Order Comment: Speci men Type: BLOOD SPECIMEN Ordering Facility: External Submitter Address: , , Performed By: #### 5 7021-8 #### [facility] CLIA [id number] [address] [place] [address] MCV (RBC) [Entitic vol] 93.0 fL Normal 80.0-100.0 [facility] Comment on above: Order Comment: Speci men Type: BLOOD SPECIMEN Ordering Facility: External Submitter Address: , , Performed By: #### 5 7021-8 #### [facility] CLIA [id number] [address] [place] [address] Monocytes (Bld) [#/Vol] 0.50 10*3/uL Normal <0.87 [facility] Comment on above: Order Comment: Speci men Type: BLOOD SPECIMEN Ordering Facility: External Submitter Address: , , Performed By: #### 5 7021-8 #### [facility] CLIA [id number] [address] [place] [address] Monocytes/100 WBC (Bld) 7.5 % Normal [facility] Comment on above: Order Comment: Speci men Type: BLOOD SPECIMEN Ordering Facility: External Submitter Address: , , Performed By: #### 5 7021-8 #### [facility] CLIA [id number] [address] [place] [address] Neutrophils (Bld) [#/Vol] 4.44 10*3/uL Normal 1.45-7.50 [facility] Comment on above: Order Comment: Speci men Type: BLOOD SPECIMEN Ordering Facility: External Submitter Address: , , Performed By: #### 5 7021-8 #### [facility] CLIA [id number] [address] [place] [address]183 Neutrophils/100 WBC (Bld) 66.1 % Normal [facility] Comment on above: Order Comment: Speci men Type: BLOOD SPECIMEN Ordering Facility: External Submitter Address: , , Performed By: #### 5 7021-8 #### [facility] CLIA [id number] [address] [place] [address]97 Nucleated RBC (Bld) [#/Vol] 10*3/uL Normal <0.01 [facility] Comment on above: Order Comment: Speci men Type: BLOOD SPECIMEN Ordering Facility: External Submitter Address: , , Performed By: #### 5 7021-8 #### [facility] CLIA [id number] [address] [place] [address] Nucleated RBC/100 WBC (Bld) [Ratio] 0.0 /100 WBC Normal [facility] Comment on above: Order Comment: Speci men Type: BLOOD SPECIMEN Ordering Facility: External Submitter Address: , , Performed By: #### 5 7021-8 #### [facility] CLIA [id number] [address] [place] [address] Platelet mean volume (Bld) [Entitic vol] 12.1 fL Normal 9.0-12.7 [facility] Comment on above: Order Comment: Speci men Type: BLOOD SPECIMEN Ordering Facility: External Submitter Address: , , Performed By: #### 5 7021-8 #### [facility] CLIA [id number] [address] [place] [address] Platelets (Bld) [#/Vol] 148 10*3/uL Low 150-400 [facility] Comment on above: Order Comment: Speci men Type: BLOOD SPECIMEN Ordering Facility: External Submitter Address: , , Performed By: #### 5 7021-8 #### [facility] CLIA [id number] [address] [place] [address] RBC (Bld) [#/Vol] 4.31 10*6/uL Normal 3.90-5.20 [facility] Comment on above: Order Comment: Speci men Type: BLOOD SPECIMEN Ordering Facility: External Submitter Address: , , Performed By: #### 5 7021-8 #### [facility] CLIA [id number] [address] [place] [address] WBC (Bld) [#/Vol] 6.71 10*3/uL Normal 3.70-11.00 [facility] Comment on above: Order Comment: Speci men Type: BLOOD SPECIMEN Ordering Facility: External Submitter Address: , , Performed By: #### 5 7021-8 #### [facility] CLIA [id number] [address] [place] [address]278 HBV surface Ag Ser Qlon 07-20 HBV surface Ag Ql (S) Negative Normal Negative [facility] Comment on above: Order Comment: Speci men Type: BLOOD SPECIMEN Ordering Facility: External Submitter Address: , , Performed By: #### 3 1201-7, 5195-3 #### [facility] CLIA [id number] [address] [place] [address] [place] HCV Ab Ser Qlon 08-08-2023 HCV Ab Ql (S) Negative Normal Negative [facility] Comment on above: Order Comment: Speci men Type: BLOOD SPECIMEN Ordering Facility: External Submitter Address: , , Result Comment: The result suggests no evidence of active infection with Hepatitis C virus. Should recent infection be suspected, repeat testing may be considered 4-6 weeks after this draw. Performed By: #### 1 6128-1 #### [facility] CLIA [id number] [address] [place] [address] [place] HIV 1+2 Ab IA Qlon 04-19-202 4 HIV 1 and 2 Ab IA.rapid Nom (S/P/Bld) Normal [facility] Comment on above: Order Comment: Specbertha mares Type: BLOOD SPECIMEN Ordering Facility: External Submitter Address: , , Result Comment: Test not indicated. Performed By: #### 3 1201-7, 5195-3 #### [facility] CLIA [id number] [address] [place] [address] [place] HIV 1+2 Ab+HIV1 p24 Ag IA Ql Non-Reactive Normal Nonreactive [facility] Comment on above: Order Comment: Tammy mares Type: BLOOD SPECIMEN Ordering Facility: External Submitter Address: , , Performed By: #### 3 1201-7, 5195-3 #### [facility] CLIA [id number] [address] [place] [address] [place] HIV immunoassay testing algorithm interpretation (S/P/Bld) [Interp] Normal [facility] Comment on above: Order Comment: Tammy mares Type: BLOOD SPECIMEN Ordering Facility: External Submitter Address: , , Result Comment: No e vidence of HIV-1 or HIV-2 infection. Should recent infection be suspected, repeat testing may be considered 2-3 weeks after this draw. [place] Rev. Code 3701.243(E): This information has been disclosed to you from confidential records protected from disclosure by state law. ???You shall make no further disclosure of this information without the specific, written, and informed release of the individual to whom it pertains or as otherwise permitted by state law. A general authorization for the release of medical or other information is not sufficient for the purpose of the release of HIV test results or diagnoses. Performed By: #### 3 1201-7, 5195-3 #### [facility] CLIA [id number] [address] [place] [address] [place] HbA1c (Bld)on 08-08-2023 Average glucose Estimated from glycated hemoglobin (Bld) [Mass/Vol] 105 mg/dL Normal [facility] Comment on above: Order Comment: Speci vishnu Type: BLOOD SPECIMEN Ordering Facility: External Submitter Address: , , Result Comment: eAG: (Estimated average glucose) is a calculated value from HgbA1c and is quality audit representative of the average blood glucose level in the last 2-3 month period. Performed By: #### 5 5454-3 #### [facility] CLIA [id number] [address] [place] [address] [place] HbA1c (Bld) [Mass fraction] 5.3 % Normal 4.3-5.6 [facility] Comment on above: Order Comment: Tammy mares Type: BLOOD SPECIMEN Ordering Facility: External Submitter Address: , , Result Comment: [place] [employer] guidelines indicate that patients with HgbA1c in the range 5.7-6.4% are at increased risk for development of diabetes, and intervention by lifestyle modification may be beneficial. HgbA1c greater or equal to 6.5% is considered diagnostic of diabetes. Performed By: #### 5 5454-3 #### [facility] CLIA [id number] [address] [place] [address] [place] RPR Ser Qlon 08-08-2023 Reagin Ab RPR Ql (S) Non-Reactive Normal Nonreactive [facility] Comment on above: Order Comment: Tammy mares Type: BLOOD SPECIMEN Ordering Facility: External Submitter Address: , , Result Comment: Rapi d plasma reagin (RPR) test detects non-treponemal antibodies. RPR may be reactive in a variety of infectious and non-infectious conditions. Correlation with clinical picture and with treponemal antibody results is required for final interpretation. Performed By: #### 3 1201-7, 5195-3 #### [facility] CLIA [id number] [address] [place] [address] OF [place] RUBELLA IGG ANTIBODYon 08-07 RUBELLA IGG AB, QUAL Positive Normal Positive [facility] Comment on above: Order Comment: Tammy mares Type: BLOOD SPECIMEN Ordering Facility: External Submitter Address: , , Result Comment: The result suggests recent or past exposure to Rubella virus or history of Rubella vaccination. Positive result may also be seen due to presence of passively-transferred antibodies. Please correlate with patient's history. Performed By: #### 3 1201-7, 5195-3 #### [facility] CLIA [id number] [facility] [address] OF [place] TYPE + SCREENon 08-08-2023 ABO A Normal [facility] Comment on above: Order Comment: Speci men Type: BLOOD SPECIMEN Ordering Facility: External Submitter Address: , , Performed By: #### T SCR #### [facility] CLIA [id number] [address] OF [place] HISTORICAL AB SCR STATUS Negative Normal [facility] Comment on above: Order Comment: Speci men Type: BLOOD SPECIMEN Ordering Facility: External Submitter Address: , , Performed By: #### T SCR #### [facility] CLIA [id number] [address] [place] [address] OF [place] Rh Nom (Bld) Positive Normal [facility] Comment on above: Order Comment: Speci men Type: BLOOD SPECIMEN Ordering Facility: External Submitter Address: , , Performed By: #### T SCR #### [facility] CLIA [id number] [address] [place] [address] OF [place] TYPE AND SCREEN EXPIRATION 08/11/2023 23:59 Normal [facility] Comment on above: Order Comment: Speci men Type: BLOOD SPECIMEN Ordering Facility: External Submitter Address: , , Performed By: #### T SCR #### [facility] CLIA [id number] [address] [place] [address] [place] B-HCG SerPl-aCncon 4 HCG.beta subunit Qn m[IU]/mL Normal <5.0 [facility] Comment on above: Order Comment: Speci men Type: BLOOD SPECIMEN Ordering Facility: [facility] [place] Address: [address] [place], [place] [address] [place] [address] Result Comment: Nega tiolvin Performed By: #### 3 024-7, 3016-3 #### [facility] CLIA [id number] [address] [place] [address] OF [facility] Jenni 05-16-2023 SUN Telephone (HEMASA) JESSEE ALMODOVAR ([id number]) 1990 [facility] Date Time Provider Department 05/16/23 RONI DUMAS During your visit today, we recorded the following information about you: Allergies As of Date: 05/16/2023 (No Known Allergies) Date Reviewed: 04/11/2023 Reviewed by: Macy Jones APRN.SHELL MOLDER - Fully Assessed Reason for Visit: Lab Orders [1688] Primary Visit Diagnosis:Possible , not confirmed [Z32.00] Order(s):HCG QUANTITATIVE [SQHCGQT] Order #: [id number] FUTURE Prescriptions as of 05/16/2023 - doxycycline hyclate (VIBRAMYCIN) 100 mg capsule Take 1 capsule (100 mg) by mouth in the morning and 1 capsule (100 mg) before bedtime. Do all this for 7 days. Take with at least 8 ounces (large glass) of water, do not lie down for 30 minutes after. - amphetamine-dextroamphe tamine XR (ADDERALL XR) 30 mg capsule Take 1 capsule (30 mg total) by mouth in the morning for 15 days. Max Daily Amount: 30 mg. - traZODone (DESYREL) 100 mg tablet Take 1 tablet (100 mg total) by mouth nightly as needed for sleep. - amphetamine-dextroamphe tamine XR (ADDERALL XR) 20 mg capsule Take 1 capsule (20 mg total) by mouth in the morning for 15 days. Max Daily Amount: 20 mg. - traZODone (DESYREL) 50 mg tablet Take 1 tablet (50 mg total) by mouth at bedtime as needed for sleep. - venlafaxine ER (EFFEXOR XR) 150 mg 24 hr capsule Take 1 capsule (150 mg total) by mouth in the morning. - levothyroxine (SYNTHROID) 200 mcg tablet Take 1 tablet by mouth once daily. - lisinopril (ZESTRIL) 40 mg tablet Take 1 tablet by mouth once daily. - omeprazole (PRILOSEC) 20 mg capsule Take 1 capsule by mouth twice daily. - venlafaxine ER (EFFEXOR XR) 150 mg 24 hr capsule Take 1 capsule (150 mg total) by mouth in the morning. - omeprazole (PRILOSEC) 20 mg capsule Take 1 tablet by mouth once daily in the morning, 20-30 minutes before eating or taking other medications - BIOTIN ORAL Take by mouth. - PNV no.95/ferrous fum/folic ac ( ORAL) Take by mouth. - omeprazole (PRILOSEC) 40 mg capsule Take 1 capsule by mouth once daily in the morning, wait 20-30 minutes before eating or taking other medications - mupirocin (BACTROBAN) 2 % ointment Apply to affected area three times a day Problem List As Of Date 05/16/2023 Noted Resolved Greater trochanteric bursitis of right hip [M70*02/25/2023 Chronic low back pain [M54.50, G89.29] 02/25/2023 Chronic pain of right hip [M25.551, G89.29] 02/25/2023 Encounter Status:Closed by RONI DUMAS on 05/16/23 Normal [facility] TOX SCREEN ROUT URon 024 Amphetamines Confirm (U) [Mass/Vol] Negative Normal Negative [facility] Comment on above: Order Comment: Speci men Type: BLOOD SPECIMEN Ordering Facility: [facility] [place] Address: [address] [place] [address] , [place] [address] Result Comment: Cuto ff threshold at 1000 ng/mL. Performed By: #### 3 024-7, 3016-3 #### [facility] CLIA [id number] [address] [place] [address] [place] BARBITURATES, URINE Negative Normal Negative [facility] Comment on above: Order Comment: Speci men Type: BLOOD SPECIMEN Ordering Facility: [facility] [place] Address: [facility] [address] [place] [address] Result Comment: Cuto ff threshold at 200 ng/mL. Performed By: #### 3 024-7, 301-3 #### [facility] CLIA [id number] [address] [place] [address] [place] BENZODIAZEPINES, UR Negative Normal Negative [facility] Comment on above: Order Comment: Speci men Type: BLOOD SPECIMEN Ordering Facility: [facility] [place] Address: [facility] [address] [place] [address] Result Comment: Cuto ff threshold at 200 ng/mL. Performed By: #### 3 024-7, 3015-3 #### [facility] CLIA [id number] [address] [place] [address] [place] Cannabinoids Screen Ql (U) Negative Normal Negative [facility] Comment on above: Order Comment: Speci men Type: BLOOD SPECIMEN Ordering Facility: [facility] [place] Address: [facility] [address] [place] [address] Result Comment: Cuto ff threshold at 50 ng/mL. Performed By: #### 3 024-7, 3015-3 #### [facility] CLIA [id number] [address] [place] [address] [place] Cocaine Ql (U) Negative Normal Negative [facility] Comment on above: Order Comment: Speci men Type: BLOOD SPECIMEN Ordering Facility: [facility] Address: [facility] [address] [place] [address] Result Comment: Cuto ff threshold at 300 ng/mL. Performed By: #### 3 024-7, 6-3 #### [facility] CLIA [id number] [address] [place] [id number] [place] Ethanol (U) [Mass/Vol] <11 Normal <11 [facility] Comment on above: Order Comment: Speci men Type: BLOOD SPECIMEN Ordering Facility: [facility] [place] Address: [facility] [address] [place] [address] Performed By: #### 3 024-7, 3016-3 #### [facility] IA [id number] [address] [place] [address] [place] Opiates Screen Ql (U) Negative Normal Negative [facility] Comment on above: Order Comment: Speci men Type: BLOOD SPECIMEN Ordering Facility: [facility] [place] Address: [facility] [address] [place] [address] Result Comment: Cuto ff threshold at 300 ng/mL. Performed By: #### 3 024-7, 6-3 #### [facility] IA [id number] [address] [place] [address] [place] oxyCODONE cutoff Screen (U) [Mass/Vol] Negative Normal Negative [facility] Comment on above: Order Comment: Speci men Type: BLOOD SPECIMEN Ordering Facility: [facility] Address: [address] [place], [place] [address] [place] [address] Result Comment: Cuto ff threshold at 100 ng/mL. Performed By: #### 3 024-7, 6-3 #### [facility] IA [id number] [address] [place] [address] [place] Phencyclidine Ql (U) Negative Normal Negative [facility] Comment on above: Order Comment: Speci men Type: BLOOD SPECIMEN Ordering Facility: [facility] Address: [facility] [address] [place] [address] Result Comment: Cuto ff threshold at 25 ng/mL. Performed By: #### 3 024-7, 3016-3 #### [facility] IA [id number] [address] [place] [address] [place] B-HCG SerPl-aCncon 4 HCG.beta subunit Qn m[IU]/mL Normal <5.0 [facility] Comment on above: Order Comment: Speci men Type: BLOOD SPECIMEN Ordering Facility: [facility] [place] Address: [address] [place] [address] , [place] [address] Result Comment: Dianne logan Performed By: #### 3 024-7, 3016-3 #### [facility] CLIA [id number] [address] [place] [address] CNOVon 02-25-2023 CNOV Office Visit (ORTHMN ) JESSEE ALMODOVAR ([id number]) 1990 [facility] Date Time Provider Department 02/25/23 1:00 PM ROSAS MCKINNEY ORTHMN During your visit today, we recorded the following information about you: Weight Height 76.7 kg 1.854 m Rosas Mckinney MD 03/01/2023 10:50 PM Signed [facility] Note Chief Complaint: Bone lesion of right femur- follow up Referring Physician: Roni Dumas History of Present Illness: Jessee is a 33-year-old female presenting for follow-up with right hip pain. She states she has had chronic pain on and off in the hip for many years but in the past year it has gotten worse. She notes most of her pain is on the lateral aspect of the hip and states that it can be worse at night. She notes the pain is Aching, pulsing, throbbing pain. Burning groin pain periodically she also notes low back /lateral hip pain along with iliac wing. She has tried Motrin and Tylenol, alternating, for pain. She has also been trying to do yoga and has done physical therapy in the past throughout the years. She does also note occasional groin pain and low back pain. She notes limited motion of the hip pain with range of motion and catching sensations. She does not walk with an assistive device. She denies any sensations of her leg giving out on her and she denies any radicular symptoms. She denies any swelling. She had updated x-rays of her right hip. She saw Dr. Mckinney last year for an incidental finding of a sclerotic bone lesion in the right proximal femur. Review of Systems: Review of systems is positive for easy bruising and abdominal pain. Other complete ROS is questioned and negative. PAST MEDICAL HISTORY Diagnosis Date Anxiety Depression Hypertension Hypothyroidism No past surgical history on file. ALLERGIES No Known Allergies No current facility-administered medications on file prior to visit. FAMILY HISTORY Problem Relation Age of Onset Anxiety disorder Mother Dementia Maternal Grandmother Pancreatic Cancer Maternal Grandfather Social History Tobacco Use Smoking status: Some Days Types: Cigarettes Passive exposure: Past Smokeless tobacco: Never Substance Use Topics Alcohol use: Yes Drug use: Not Currently Physical Examination: Ht 6' 1 (1.85m) Wt 169 lb 0.3 oz (76.7kg) LMP 02/04/2022 BMI 22.30 kg/(m2). General: alert, oriented, no acute distress Skin: small bruising lateral aspect of left foot HEENT: normocephalic, extraocular movements intact, mucous membranes moist/intact Neck: no cervical lymphadenopathy Cardiovascular: pulse regular, no lower extremity edema Pulmonary: normal respiratory effort and chest wall excursion Abdomen: soft, non-tender, non-distended Hip Musculoskeletal Exam Gait Gait is normal. Inspection Right Erythema: none Ecchymosis: none Edema: none Deformity: none Previous incision: no previous incision Palpation Right Increased warmth: none Tenderness: present Greater trochanteric region pain: moderate Range of Motion Right Right hip range of motion is within functional limits. Active ROM: pain. Passive ROM: pain. Active extension: 20. Passive extension: 20. Active flexion: 110. Passive flexion: 110. Active internal rotation: 30. Passive internal rotation: 30. Active external rotation: 30. Passive external rotation: 30. Active adduction: 30. Passive adduction: 30. Active abduction: 30. Passive abduction: 30. Strength Right Extension: 5/5. Flexion: 5/5. Internal rotation: 5/5. External rotation: 5/5. Adduction: 5/5. Abduction: 5/5. Neurovascular Right Right hip neurovascular exam is normal. Special Tests Right JOSE test (right): positive TTP over the right greater trochanter. Results Reviewed: Laboratory evaluation: CBC, CMP essentially normal, Cr with mild elevation to 1.00. Decreased ferritin and increased TIBC. Radiographic evaluation: XR HIP 02/19/2022 1. Intramedullary bone lesion in the proximal right femur with nonaggressive radiographic characteristics. Differential diagnosis considerations include liposclerosing myxofibrous tumor. CT ABD/PELV 02/09/2022: No acute intraperitoneal abnormality Indeterminate lytic lesion with sclerotic rim in the right intertrochanteric femur. Plain film correlation recommended. 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 Due to continue pain, recommend MRI to evaluate lesion along with a (more content not included)... Normal [facility] XR HIP 3V PELV+ AP/LAT RTon 02-20-2023 XR HIP 3V PELV+ AP/LAT RT * * *Final Report* * * DATE OF EXAM: Feb 20 2023 9:30AM [id number] [id number] - XR HIP 3V PELV+ AP/LAT RT / PROCEDURE REASON: Lytic bone lesion of femur * * * * Physician Interpretation * * * * RESULT: HISTORY: Lytic bone lesion of femur . bone lesion; increasing pain from pelvis through hip into groin area. TECHNIQUE: XR HIP 3V PELV+ AP/LAT RT Laterality: RIGHT Number of different views (projections): 3 COMPARISON: 02/18/2022 and 08/01/2022 RESULT: Again seen is a right intertrochanteric femur bone lesion with predominant lytic component centrally and more peripheral sclerotic component, measuring approximately 5.4 cm and craniocaudal dimension, and overall similar in size and configuration to the prior exams. No visualized cortical destruction or callus reaction. Right hip joint space is maintained. Left hip joint space and pubic symphysis are maintained. Bilateral sacroiliac and lower lumbar spine degenerative changes. Soft tissues about the right hip are unremarkable. IMPRESSION: Right intertrochanteric femur bone lesion, similar to prior, and 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 Transcribe Date/Time: Feb 20 2023 9:56A Dictated by: NEREYDA OSUNA MD This examination was interpreted and the report reviewed and electronically signed by: NEREYDA OSUNA MD on Feb 20 2023 10:04AM EST Thank you for allowing us to participate in the care of your patient. Should there be any questions regarding this interpretation, please call [phone]. If you are unable to reach us at the number above, please feel free to contact [facility]Radiology at [phone]. [id number] Normal [facility] XR Pelvis and Hip - right AP and Lateral frogon 02-20-2023 IMPRESSION: Right intertrochanteric femur bone lesion, similar to prior, and 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 Transcribe Date/Time: Feb 20 2023 9:56A Dictated by: NEREYDA OSUNA MD This examination was interpreted and the report reviewed and electronically signed by: NEREYDA OSUNA MD on Feb 20 2023 10:04AM EST Thank you for allowing us to participate in the care of your patient. Should there be any questions regarding this interpretation, please call [phone]. If you are unable to reach us at the number above, please feel free to contact [facility] at [phone]. DIVISION OF RADIOLOGY * * *Final Report* * * DATE OF EXAM: Feb 20 2023 9:30AM [id number] [id number] - XR HIP 3V PELV+ AP/LAT RT / PROCEDURE REASON: Lytic bone lesion of femur * * * * Physician Interpretation * * * * RESULT: HISTORY: Lytic bone lesion of femur . bone lesion; increasing pain from pelvis through hip into groin area. TECHNIQUE: XR HIP 3V PELV+ AP/LAT RT Laterality: RIGHT Number of different views (projections): 3 COMPARISON: 02/18/2022 and 08/01/2022 RESULT: Again seen is a right intertrochanteric femur bone lesion with predominant lytic component centrally and more peripheral sclerotic component, measuring approximately 5.4 cm and craniocaudal dimension, and overall similar in size and configuration to the prior exams. No visualized cortical destruction or callus reaction. Right hip joint space is maintained. Left hip joint space and pubic symphysis are maintained. Bilateral sacroiliac and lower lumbar spine degenerative changes. Soft tissues about the right hip are unremarkable. DIVISION OF RADIOLOGY Provider, Tom Salinas [facility] - 02/20/2023 * * *Final Report* * * DATE OF EXAM: Feb 20 2023 9:30AM [id number] [id number] - XR HIP 3V PELV+ AP/LAT RT / PROCEDURE REASON: Lytic bone lesion of femur * * * * Physician Interpretation * * * * RESULT: HISTORY: Lytic bone lesion of femur . bone lesion; increasing pain from pelvis through hip into groin area. TECHNIQUE: XR HIP 3V PELV+ AP/LAT RT Laterality: RIGHT Number of different views (projections): 3 COMPARISON: 02/18/2022 and 08/01/2022 RESULT: Again seen is a right intertrochanteric femur bone lesion with predominant lytic component centrally and more peripheral sclerotic component, measuring approximately 5.4 cm and craniocaudal dimension, and overall similar in size and configuration to the prior exams. No visualized cortical destruction or callus reaction. Right hip joint space is maintained. Left hip joint space and pubic symphysis are maintained. Bilateral sacroiliac and lower lumbar spine degenerative changes. Soft tissues about the right hip are unremarkable. IMPRESSION IMPRESSION: Right intertrochanteric femur bone lesion, similar to prior, and 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 Transcribe Date/Time: Feb 20 2023 9:56A Dictated by: NEREYDA OSUNA MD This examination was interpreted and the report reviewed and electronically signed by: NEREYDA OSUNA MD on Feb 20 2023 10:04AM EST Thank you for allowing us to participate in the care of your patient. Should there be any questions regarding this interpretation, please call [phone]. If you are unable to reach us at the number above, please feel free to contact [facility] eRadiology at [phone]. [facility] Radiology Study observation (narrative) [facility] XR Pelvis and Hip - right AP and Lateral frogOrdered By: [facility] Provider on 02-20-2023 [facility] Jenni 02-17-2023 YOLAN Telephone (HEMASA) JESSEE ALMODOVAR ([id number]) 1990 [facility] Date Time Provider Department 02/17/23 RONI DUMAS During your visit today, we recorded the following information about you: Roni Dumas MD 02/17/2023 8:20 AM Signed Jourdan Atkins, My MA Karyna is having quite a bit of pain and dysfunction in the right hip. Most days in the mornings especially, are excruciating for her and she's unable to sleep on her right side. Would you mind to see her again please? I can get additional imaging first, if you'd like. Thanks, Td. Allergies As of Date: 02/17/2023 (No Known Allergies) Date Reviewed: 01/20/2023 Reviewed by: Macy Jones APRN.SHELL MOLDER - Fully Assessed Primary Visit Diagnosis: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] Order(s):XR HIP GENERAL 3V PELV/AP/LAT RIGHT [[id number]] Order #: [id number] FUTURE Prescriptions as of 02/17/2023 - amphetamine-dextroamphe tamine XR (ADDERALL XR) 20 mg capsule Take 1 capsule (20 mg total) by mouth in the morning for 15 days. Max Daily Amount: 20 mg. - traZODone (DESYREL) 50 mg tablet Take 1 tablet (50 mg total) by mouth at bedtime as needed for sleep. - venlafaxine ER (EFFEXOR XR) 150 mg 24 hr capsule Take 1 capsule (150 mg total) by mouth in the morning. - amphetamine-dextroamphe tamine XR (ADDERALL XR) 10 mg capsule Take 1 capsule (10 mg total) by mouth in the morning for 15 days. Max Daily Amount: 10 mg. - methylphenidate ER 27 mg biphasic tablet Take 1 tablet by mouth every morning. Max Daily Amount: 27 mg - methylphenidate ER 18 mg biphasic tablet Take 1 tablet (18 mg total) by mouth every morning. Max Daily Amount: 18 mg - levothyroxine (SYNTHROID) 200 mcg tablet Take 1 tablet by mouth once daily. - lisinopril (ZESTRIL) 40 mg tablet Take 1 tablet by mouth once daily. - omeprazole (PRILOSEC) 20 mg capsule Take 1 capsule by mouth twice daily. - traZODone (DESYREL) 50 mg tablet Take 1 tablet (50 mg total) by mouth nightly as needed for sleep. - venlafaxine ER (EFFEXOR XR) 150 mg 24 hr capsule Take 1 capsule (150 mg total) by mouth in the morning. - hydrOXYzine HCl (ATARAX) 50 mg tablet Take 1 tablet by mouth three times daily as needed. - venlafaxine ER (EFFEXOR XR) 37.5 mg 24 hr capsule Take 1 capsule (37.5 mg total) by mouth in the morning. - venlafaxine ER (EFFEXOR XR) 75 mg 24 hr capsule Take 1 capsule by mouth once daily. - venlafaxine ER (EFFEXOR XR) 75 mg 24 hr capsule Take 1 capsule by mouth once daily. - Bifidobacterium Infantis (ALIGN) 4 mg cap Take 1 capsule by mouth once daily. - lisinopril (ZESTRIL) 20 mg tablet Take 1 tablet by mouth once daily. - omeprazole (PRILOSEC) 20 mg capsule Take 1 tablet by mouth once daily in the morning, 20-30 minutes before eating or taking other medications - venlafaxine ER (EFFEXOR XR) 75 mg 24 hr capsule Take 1 capsule by mouth once a day - BIOTIN ORAL Take by mouth. - PNV no.95/ferrous fum/folic ac ( ORAL) Take by mouth. - fluconazole (DIFLUCAN) 150 mg tablet 1 (one) tablet by mouth one time dose - lisinopril (ZESTRIL) 20 mg tablet Take 1 tablet by mouth once daily. Take 20-30 minutes before eating or taking other medications - omeprazole (PRILOSEC) 20 mg capsule Take 1 capsule by mouth once daily. 20-30 minutes before eating or taking other medications - omeprazole (PRILOSEC) 40 mg capsule Take 1 capsule by mouth once daily in the morning, wait 20-30 minutes before eating or taking other medications - doxycycline hyclate (VIBRAMYCIN) 100 mg capsule Take 1 capsule by mouth twice daily. - venlafaxine ER (EFFEXOR XR) 37.5 mg 24 hr capsule Take 1 capsule by mouth once daily with food. - atomoxetine (STRATTERA) 40 mg capsule Take 1 capsule by mouth once daily in the morning. - lisinopril (ZESTRIL, PRINIVIL) 10 mg tablet Take 1 tablet by mouth once daily. - hydrOXYzine HCl (ATARAX) 25 mg tablet Take 1 tablet by mouth three times daily as needed. - escitalopram oxalate (LEXAPRO) 20 mg tablet Take 1 tablet by mouth once daily. - lisinopril (ZESTRIL, PRINIVIL) 5 mg tablet Take 1 tablet by mouth once daily. - mupirocin (BACTROBAN) 2 % ointment Apply to affected area three times a day - escitalopram oxalate (LEXAPRO) 10 mg tablet Take 1 tablet by mouth once daily. - citalopram (CELEXA) 20 mg tablet Take 1 tablet by mouth daily - medroxyPROGESTERone (DEPO-PROVERA) 150 mg/mL Inject 1 (one) Milliliter every 12 weeks - medroxyPROGESTERone (DEPO-PROVERA) 150 mg/mL injection Inject 1 mL intramuscularly every 11-12 weeks Problem List As Of Date: 02/17/2023 (None) Encounter Status:Closed by TIANA CRONIN on 02/17/23 Normal [facility] CBC W Auto Differential pane l (Bld)on 11-15-2022 Basophils (Bld) [#/Vol] 0.04 10*3/uL <0.11 k/uL [facility] Basophils/100 WBC (Bld) 0.8 % [facility] Differential cell count method Nom (Bld) Auto [facility] Eosinophils (Bld) [#/Vol] 0.11 10*3/uL <0.46 k/uL [facility] Eosinophils/100 WBC (Bld) 2.1 % [facility] Erythrocyte distribution width (RBC) [Ratio] 13.7 % 11.5 - 15.0 % [facility] Hematocrit (Bld) [Volume fraction] 46.7 % High 36.0 - 46.0 % [facility] Hemoglobin (Bld) [Mass/Vol] 15.6 g/dL High 11.5 - 15.5 g/dL [facility] Immature granulocytes (Bld) [#/Vol] <0.10 k/uL [facility] Immature granulocytes/100 WBC (Bld) 0.2 % [facility] Lymphocytes (Bld) [#/Vol] 1.77 10*3/uL 1.00 - 4.00 k/uL [facility] Lymphocytes/100 WBC (Bld) 33.7 % [facility] MCH (RBC) [Entitic mass] 31.8 pg 26.0 - 34.0 pg [facility] MCHC (RBC) [Mass/Vol] 33.4 g/dL 30.5 - 36.0 g/dL [facility] MCV (RBC) [Entitic vol] 95.3 fL 80.0 - 100.0 fL [facility] Monocytes (Bld) [#/Vol] 0.64 10*3/uL <0.87 k/uL [facility] Monocytes/100 WBC (Bld) 12.2 % [facility] Neutrophils (Bld) [#/Vol] 2.68 10*3/uL 1.45 - 7.50 k/uL [facility] Neutrophils/100 WBC (Bld) 51.0 % [facility] Nucleated RBC (Bld) [#/Vol] <0.01 k/uL [facility] Nucleated RBC/100 WBC (Bld) [Ratio] 0.0 /100 WBC [facility] Platelet mean volume (Bld) [Entitic vol] 11.3 fL 9.0 - 12.7 fL [facility] Platelets (Bld) [#/Vol] 154 10*3/uL 150 - 400 k/uL [facility] RBC (Bld) [#/Vol] 4.90 10*6/uL 3.90 - 5.2 0 m/uL [facility] WBC (Bld) [#/Vol] 5.25 10*3/uL 3.70 - 11. 00 k/uL [facility] CBC W Auto Differential pane l (Bld)on 08-09-2022 Basophils (Bld) [#/Vol] 0.03 10*3/uL <0.11 k/uL [facility] Basophils/100 WBC (Bld) 0.6 % [facility] Differential cell count method Nom (Bld) Auto [facility] Eosinophils (Bld) [#/Vol] 0.05 10*3/uL <0.46 k/uL [facility] Eosinophils/100 WBC (Bld) 0.9 % [facility] Erythrocyte distribution width (RBC) [Ratio] 13.6 % 11.5 - 15.0 % [facility] Hematocrit (Bld) [Volume fraction] 42.0 % 36.0 - 46.0 % [facility] Hemoglobin (Bld) [Mass/Vol] 13.5 g/dL 11.5 - 15.5 g/dL [facility] Immature granulocytes (Bld) [#/Vol] <0.10 k/uL [facility] Immature granulocytes/100 WBC (Bld) 0.4 % [facility] Lymphocytes (Bld) [#/Vol] 1.57 10*3/uL 1.00 - 4.00 k/uL [facility] Lymphocytes/100 WBC (Bld) 29.0 % [facility] MCH (RBC) [Entitic mass] 30.5 pg 26.0 - 34.0 pg [facility] MCHC (RBC) [Mass/Vol] 32.1 g/dL 30.5 - 36.0 g/dL [facility] MCV (RBC) [Entitic vol] 94.8 fL 80.0 - 100.0 fL [facility] Monocytes (Bld) [#/Vol] 0.47 10*3/uL <0.87 k/uL [facility] Monocytes/100 WBC (Bld) 8.7 % [facility] Neutrophils (Bld) [#/Vol] 3.27 10*3/uL 1.45 - 7.50 k/uL [facility] Neutrophils/100 WBC (Bld) 60.4 % [facility] Nucleated RBC (Bld) [#/Vol] <0.01 k/uL [facility] Nucleated RBC/100 WBC (Bld) [Ratio] 0.0 /100 WBC [facility] Platelet mean volume (Bld) [Entitic vol] 11.1 fL 9.0 - 12.7 fL [facility] Platelets (Bld) [#/Vol] 145 10*3/uL Low 150 - 400 k/uL [facility] RBC (Bld) [#/Vol] 4.43 10*6/uL 3.90 - 5.2 0 m/uL [facility] WBC (Bld) [#/Vol] 5.41 10*3/uL 3.70 - 11. 00 k/uL [facility] XR Pelvis and Hip - right AP and Lateral frogon 08-01-2022 IMPRESSION: 1. Stable sclerotic lesion of the subtrochanteric RIGHT femur. 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 Transcribe Date/Time: Aug 01 2022 11:54A Dictated by: JUSTIN LORENZANA MD This examination was interpreted and the report reviewed and electronically signed by: JUSTIN LORENZANA MD on Aug 01 2022 11:56AM EST Thank you for allowing us to participate in the care of your patient. Should there be any questions regarding this interpretation, please call [phone]. If you are unable to reach us at the number above, please feel free to contact [facility] eRadiology at [phone]. DIVISION OF RADIOLOGY * * *Final Report* * * DATE OF EXAM: Aug 01 2022 8:52AM [id number] - XR HIP 3V PELV+ AP/LAT RT / PROCEDURE REASON: Lytic bone lesion of femur * * * * Physician Interpretation * * * * RESULT: Pelvis and RIGHT hip x-rays: HISTORY: Bone lesion TECHNIQUE: An AP view of the pelvis and AP and lateral views of the RIGHT hip are reviewed. COMPARISON: 02/18/2022 RESULT: There has been no significant interval change. Osseous structures are intact, without evidence of an acute fracture. The hip joints and sacroiliac joint spaces are maintained. Again demonstrated is a 5.3 cm lesion within the subtrochanteric RIGHT femur with peripheral sclerosis which appears unchanged in the interval. DIVISION OF RADIOLOGY Provider, [facility] - 08/01/2022 * * *Final Report* * * DATE OF EXAM: Aug 01 2022 8:52AM [id number] [id number] - XR HIP 3V PELV+ AP/LAT RT / PROCEDURE REASON: Lytic bone lesion of femur * * * * Physician Interpretation * * * * RESULT: Pelvis and RIGHT hip x-rays: HISTORY: Bone lesion TECHNIQUE: An AP view of the pelvis and AP and lateral views of the RIGHT hip are reviewed. COMPARISON: 02/18/2022 RESULT: There has been no significant interval change. Osseous structures are intact, without evidence of an acute fracture. The hip joints and sacroiliac joint spaces are maintained. Again demonstrated is a 5.3 cm lesion within the subtrochanteric RIGHT femur with peripheral sclerosis which appears unchanged in the interval. IMPRESSION IMPRESSION: 1. Stable sclerotic lesion of the subtrochanteric RIGHT femur. 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 Transcribe Date/Time: Aug 01 2022 11:54A Dictated by: JUSTIN LORENZANA MD This examination was interpreted and the report reviewed and electronically signed by: JUSTIN LORENZANA MD on Aug 01 2022 11:56AM EST Thank you for allowing us to participate in the care of your patient. Should there be any questions regarding this interpretation, please call [phone]. If you are unable to reach us at the number above, please feel free to contact [facility] eRadiology at [phone]. [facility] Radiology Study observation (narrative) [facility] XR Pelvis and Hip - right AP and Lateral frogOrdered By: [facility] Provider on 08-01-2022 [facility] Ambulatory Visit Summaryon 0 05-26-2022 Ambulatory Visit Summary JESSEE ALMODOVAR :1990 Visit Date:05/26/2022 Ambulatory Visit Instructions Your Diagnosis Strep pharyngitis BMI 28.0-28.9,adult Sore throat Your Care Team Attending Physician - Roxanne MOSLEY CNP Primary Care Physician - CHELSEA KRAUS DO This Is Your Medications List amoxicillin (amoxicillin 500 mg Cap) Contact prescribing physician if questions or concerns biotin levothyroxine (levothyroxine 175 mcg (0.175 mg) oral capsule) lisinopril (lisinopril 10 mg Tab) multivitamin, ( Multivitamins) omeprazole (omeprazole 40 mg Cap-DR) venlafaxine (Effexor XR 75 mg Cap-ER) Procedures Performed Dilatation and curettage (09/01/2015), Myringotomy with Insertion of Tube (1995). Discharge Vitals Temperature (Oral) 36.9 ?C Heart Rate (Peripheral) 115 Blood Pressure 120/78 Height 172 cm Height 68 in Weight 83.6 kg Weight 183.92 lb BMI 28.26 What to do next You Need to Schedule the Following Appointments Follow Up with CHELSEA KRAUS DO When: Where: [facility] [address] [place] [id number]- Medications What How Much When Why Instructions New amoxicillin (amoxicillin 500 mg Cap) 1 Capsules By Mouth Every 12 hours Strep pharyngitis Duration: 10 Days Pickup at [facility] 1985 Unchanged biotin Contact prescribing physician if questions or concerns Unchanged levothyroxine (levothyroxine 175 mcg (0.175 mg) oral capsule) Contact prescribing physician if questions or concerns Unchanged lisinopril (lisinopril 10 mg Tab) Contact prescribing physician if questions or concerns Unchanged multivitamin, ( Multivitamins) 1 Tablets By Mouth Every day Contact prescribing physician if questions or concerns Unchanged omeprazole (omeprazole 40 mg Cap-DR) Contact prescribing physician if questions or concerns Unchanged venlafaxine (Effexor XR 75 mg Cap-ER) Contact prescribing physician if questions or concerns Pharmacy Information [facility]: [address] [place], [place] [id number] [phone] Allergies No Known Allergies Problems Ongoing - Any problem that you are currently receiving treatment for. Denies Education Materials Strep Throat, Adult Strep throat is an infection of the throat. It is caused by germs (bacteria). Strep throat is common during the cold months of the year. It mostly affects children who are 5?15 years old. However, people of all ages can get it at any time of the year. When strep throat affects the tonsils, it is called tonsillitis. When it affects the back of the throat, it is called pharyngitis. This infection spreads from person to person through coughing, sneezing, or having close contact. What are the causes? This condition is caused by the Streptococcus pyogenes germ. What increases the risk? You are more likely to develop this condition if: ? You care for young children. Children are more likely to get strep throat and may spread it to others. ? You go to crowded places. Germs can spread easily in such places. ? You kiss or touch someone who has strep throat. What are the signs or symptoms? Symptoms of this condition include: ? Fever or chills. ? Redness, swelling, or pain in the tonsils or throat. ? Pain or trouble when swallowing. ? White or yellow spots on the tonsils or throat. ? Tender glands in the neck and under the jaw. ? Bad breath. ? Red rash all over the body. This is rare. How is this treated? This condition may be treated with: ? Medicines that kill germs (antibiotics). ? Medicines that treat pain or fever. These include: ? Ibuprofen or acetaminophen. ? Aspirin, only for patients who are over the age of 18. ? Throat lozenges. ? Throat sprays. Follow these instructions at home: Medicines ? Take rjnr-czf-rtkdtmw and prescription medicines only as told by your doctor. ? Take your antibiotic medicine as told by your doctor. Do not stop taking the antibiotic even if you start to feel better. Eating and drinking ? If you have trouble swallowing, eat soft foods until your throat feels better. ? Drink enough fluid to keep your pee (urine) pale yellow. ? To help with pain, you may have: ? Warm fluids, such as soup and tea. ? Cold fluids, such as frozen desserts or popsicles. General instructions ? Rinse your mouth (gargle) with a salt-water mixture 3?4 times a day or as needed. To make a salt-water mixture, dissolve ??1 tsp (3?6 g) of salt in 1 cup (237 mL) of warm water. ? Rest as much as you can. ? Stay home from work or school until you have been taking antibiotics for 24 hours. ? Avoid smoking or being around people who smoke. ? Keep all follow-up visits as told by your doctor. This is important. How is this prevented? ? Do not share food, drinking cup (more content not included)... Normal [facility] Family Medicine Office/Clini c Noteon 05-26-2022 Family Medicine Office/Clinic Note Chief Complaint [employer]- sore throat/ ear pain HPI Staff Jessee is a 32 year old female who presents for sore throat and ear pain. Symptoms started- x 2 weeks with a sore throat Headache- yes Body aches- yes Earache- yes LT Runny/stuffy nose- yes Problem with Smell- no Problem with Taste- no Sore throat- yes Cough- yes Scratchy tickly throat- yes Chest symptoms- no SOB- no Lung Hx asthma, bronchitis, chest colds- no Fever/chills- yes chills Nausea/ vomiting- no GI symptoms- no COVID exposure/ sick- no Treatments- Tylenol cold and FLU NyQuil. History of Present Illness I have reviewed and verified the staff HPI to be accurate for this encounter. Patient presents in office for concern of sore throat x 2 weeks. Nasal congestion, nasal drainage, left ear pain, body aches, headache x 1-2 days. Denies cough. Denies shortness of breath or wheezing. Symptoms started 2 weeks ago. Denies GI symptoms. Denies known COVID or flu exposure. Complains of chills. Denies fever. Has been using Tylenol Cold and flu, NyQuil with minimal improvement. No oapy-tdl-ysvwdnq medications today. Review of Systems PHQ Score Initial Depression Screen Score: 0 Physical Exam Vitals & Measurements T: 36.9 ?C(Oral) HR: 115(Peripheral) BP: 120/78 SpO2: 98% HT: 68 in HT: 172 cm WT: 83.6 kg WT: 183.92 lb BMI: 28.26 General: Well developed, well nourished, in no acute distress Ears: No deformity or lesion of external ear. Canals and TM appear normal bilaterally. TM?s intact, not inflamed, with normal light reflex. Hearing grossly normal to conversational speech Nose: mild nasal mucosa inflammation and edema, scant clear rhinorrhea Mouth: Moderate pharyngeal erythema, 2+ tonsils, Mild exudate to left tonsils. No petechiae, no palatal inflammation Neck: Palpable anterior cervical nodes bilaterally Lungs: clear to auscultation throughout, no wheezing, no rales. No respiratory distress Cardio: regular rate and rhythm, no murmur Mental Status: Alert and oriented x3. Normal mood and affect Assessment/Plan 1. Strep pharyngitis (J02.0: Streptococcal pharyngitis) Rapid strep +. Will treat with amoxil. Finish course. Fluids/rest, PRN tylenol/ibuprofen for pain and/or fever. May use salt water gargles, otc throat sprays and lozenges for pain. Change toothbrush and pillowcases after 48 hours on ATB. Advised significantly less contagious after 24 hours on ATB. Follow up with PCP if not improving over next 4-5 days with antibiotic or fevers continuing. Patient and/or parent verbalized understanding of treatment plan Ordered: amoxicillin, 500 mg = 1 cap(s), Oral, q12hr, X 10 day(s), # 20 cap(s), Refills(s) 0, Pharmacy: [facility], 172, cm, 05/26/22 9:34:00 EST, Height/Length Dosing, 83.6, kg, 05/26/22 9:34:00 EST, Weight Dosing 2. BMI 28.0-28.9,adult (Z68.28: Body mass index [BMI] 28.0-28.9, adult) The standard range for ages 18 and older is >=18.5 and < 25 kg/m2. Your BMI today was above this range, this falls in the overweight to obese category and there are medical benefits to weight loss. We can offer counselling, referral, and/or medical support in addressing this problem. Your BMI and weight management will be followed at subsequent visits. Ordered: Body Mass Index (BMI) documented 3008F Sore throat (J02.9: Acute pharyngitis, unspecified) Ordered: Rapid Strep POC 57598 Follow-up With When Contact Information CHELSEA KRAUS DO [facility] [address] [place] [phone]- Additional Instructions: Patient Education Strep Throat, Adult, Tukk-cc-Fbvv BMI for Adults Problem List/Past Medical History Ongoing Denies Historical No qualifying data Procedure/Surgical History Dilatation and curettage (09/01/2015), Myringotomy with Insertion of Tube (1995). Medications amoxicillin 500 mg Cap, 500 mg= 1 cap(s), Oral, q12hr biotin Effexor XR 75 mg Cap-ER levothyroxine 175 mcg (0.175 mg) oral capsule lisinopril 10 mg Tab omeprazole 40 mg Cap-DR Multivitamins, 1 tab(s), Oral, Daily Allergies No Known Allergies Social History Alcohol - Denies Alcohol Use, 04/26/2011 Substance Abuse - Denies Substance Abuse, 04/26/2011 Tobacco - No Risk, 05/26/2022 Former smoker, quit more than 30 days ago Tobacco Use:. Never Smokeless Tobacco Use:. Cigarettes, Household tobacco concerns: No., 05/26/2022 Former Smoker, Cigarettes, 03/21/2013 Cigarettes, 04/26/2011 Family History Family history is unknown Lab Results Ambulatory Point of Care Results Rapid Strep POC Result: Positive (05/26/22 09:56:00) Normal [facility] Comment on above: Result Comment: Rafal longo Signed By: Roxanne MOSLEY CNP.shelley\Date and Time Signed: 05/26/22 10:07 EST Patient Educationon 05-26-19 Patient Education Infectious Disease Strep Throat, Adult Strep throat is an infection of the throat. It is caused by germs (bacteria). Strep throat is common during the cold months of the year. It mostly affects children who are 5?15 years old. However, people of all ages can get it at any time of the year. When strep throat affects the tonsils, it is called tonsillitis. When it affects the back of the throat, it is called pharyngitis. This infection spreads from person to person through coughing, sneezing, or having close contact. What are the causes? This condition is caused by the Streptococcus pyogenes germ. What increases the risk? You are more likely to develop this condition if: ? You care for young children. Children are more likely to get strep throat and may spread it to others. ? You go to crowded places. Germs can spread easily in such places. ? You kiss or touch someone who has strep throat. What are the signs or symptoms? Symptoms of this condition include: ? Fever or chills. ? Redness, swelling, or pain in the tonsils or throat. ? Pain or trouble when swallowing. ? White or yellow spots on the tonsils or throat. ? Tender glands in the neck and under the jaw. ? Bad breath. ? Red rash all over the body. This is rare. How is this treated? This condition may be treated with: ? Medicines that kill germs (antibiotics). ? Medicines that treat pain or fever. These include: ? Ibuprofen or acetaminophen. ? Aspirin, only for patients who are over the age of 18. ? Throat lozenges. ? Throat sprays. Follow these instructions at home: Medicines ? Take pdtg-yrb-xuecvug and prescription medicines only as told by your doctor. ? Take your antibiotic medicine as told by your doctor. Do not stop taking the antibiotic even if you start to feel better. Eating and drinking ? If you have trouble swallowing, eat soft foods until your throat feels better. ? Drink enough fluid to keep your pee (urine) pale yellow. ? To help with pain, you may have: ? Warm fluids, such as soup and tea. ? Cold fluids, such as frozen desserts or popsicles. General instructions ? Rinse your mouth (gargle) with a salt-water mixture 3?4 times a day or as needed. To make a salt-water mixture, dissolve ??1 tsp (3?6 g) of salt in 1 cup (237 mL) of warm water. ? Rest as much as you can. ? Stay home from work or school until you have been taking antibiotics for 24 hours. ? Avoid smoking or being around people who smoke. ? Keep all follow-up visits as told by your doctor. This is important. How is this prevented? ? Do not share food, drinking cups, or personal items. They can cause the germs to spread. ? Wash your hands well with soap and water. Make sure that all people in your house wash their hands well. ? Have family members tested if they have a fever or a sore throat. They may need an antibiotic if they have strep throat. Contact a doctor if: ? You have swelling in your neck that keeps getting bigger. ? You get a rash, cough, or earache. ? You cough up a thick fluid that is green, yellow-brown, or bloody. ? You have pain that does not get better with medicine. ? Your symptoms get worse instead of getting better. ? You have a fever. Get help right away if: ? You vomit. ? You have a very bad headache. ? Your neck hurts or feels stiff. ? You have chest pain or are short of breath. ? You have drooling, very bad throat pain, or changes in your voice. ? Your neck is swollen, or the skin gets red and tender. ? Your mouth is dry, or you are peeing less than normal. ? You keep feeling more tired or have trouble waking up. ? Your joints are red or painful. Summary ? Strep throat is an infection of the throat. It is caused by germs (bacteria). ? This infection can spread from person to person through coughing, sneezing, or having close contact. ? Take your medicines, including antibiotics, as told by your doctor. Do not stop taking the antibiotic even if you start to feel better. ? To prevent the spread of germs, wash your hands well with soap and water. Have others do the same. Do not share food, drinking cups, or personal items. ? Get help right away if you have a bad headache, chest pain, shortness of breath, a stiff or painful neck, or you vomit. This information is not intended to replace advice given to you by your health care provider. Make sure you discuss any questions you have with your health care provider. Document Released: 09/23/2008 Document Revised: 06/25/2019 Document Reviewed: 06/25/2019 [employer] Patient Education ? 2019 [employer]. Nutrition BMI for Adults Body mass index (BMI) is a number that is calculated from a person's weight and height. BMI may help to estimate how much of a person's weight is composed of fat. BMI can help identify those who may be (more content not included)... Normal [facility] Coding Summary.on 02-26-2022 Coding Summary. [id number] Gh0 bWw+PGhlYWQ+MF0JBQKwE82 vkVJacE3KP4tCCF7HZAMRNH HWOF9LNG0bhFV6CFodL4Rgi iAv QecksXLvFP45VDu8GXP2iPv jCCnsdG8faBZyY9z7FlYyGJ 60wS43HYmpCHWtLaJ4JvJfo jsgbWFy T4jmAeUezQHnHhm+PHRhYmx lIHdpZHRoPScxMDAlJyBzdH ipAI8pWe4lCPYpOLAklIjrp HNlOiBj o5bbTLVyZHorKA6paVdvQ8N grXZ1NWSmx1g5Im80iRN+PH UnUWF4hYrmVMlvg338RrBwd 2qgRIB1 kCKiFQwdYRK9P30pt0D5JOJ wWBVuJAY2aEI7eS1waPfyqy ngZ3ZdiKKyWfI1BRZ9pZMyw H4blQgy cbfamA7gOqo+X71PWS9QLYH ILV6DWjo1Z6YzHdghyUE+PC 79WBAfMD49nISciTErt5cwj Xj3VwTx SYJsPHX9tUweTMmxq3PfTHD xV42glPVjh2L9UUVeqQhnbB WlNgOhcCK9pR4qHBdedksyz 2hvdzsn Qpiem8brso16aP93I61eLNw hEBCiQLM8QAUiAYUkdXrqrm 7gnV7bXs3+FMfix6feg3vgl Cz6DiVw HJNwjgMajPvbOOJ6d6FuWd0 3B5ZxcQwgg8IxLxf4kq17jS Qsy5C5bFK2CSpfWICkmC8yB WxlZnQ6 IVFlVrAckJ93bEXzBVseFj4 jdIzrgKcaLQ1aQQKccfrxKL EhcD4oNOAtrZRqbYkeAP9uV TBpbjtm h206VjRgNEG9DEGdyKQaE5M vhF6yOnQjUMKyVADaZ7DdwO XiTPhiY401KNfuYoB4DZJrt sYbY6We LVPyeBzsJoE5u9Y9Sm3Ah4A xzqxlBIC2YWcsECQsNsS7Yq SaDnP5L5FtHos3THDcoLbdV S5aS6Qt MLJqjcbksfjfhVW4ZPFcQLN aeV76rWDdBQgtFf0pa1N4l2 71COBpHGWezR04Zy3fiOvcF TBwdCBU qM1svuofu7archwhDuRiYDA vAPt6XBu2ZEGdnFfuGsYfCY S9YuP6TBH1yKOebZ4yxCmli mbtoM2s Oyc+A99mkN9nZFV3RSA4vva nJTAeflAeAX73WV97T7XfIu wvdGFibGU+PGRpdiBzdHlsZ S2uHzOx r0nje5MdBZkjW7SyTDNeAWk hTlk9TABfPAP7qRI7sW6dMC EvTPwaz4B1xPN8L4EfcfQsp o3jp1om MHJnEIwpE88ovVXsl9M2THA htCP3HHOecJglZoKhjC29Vk c+RIUqnFjqy1RsVmhcs6aza 6vyoYz2 OcXhQKVevxVrbUmrNZN8p7E aLb86X16tLDlmYCWxKYVkIS UqNFKgxGowcv2pvB8rVq4+P GNvbCB3 fLQ0sN7vIPDeRkW3SHxwI18 2JbSijOJeWgeal1tdp9ihlT f0OdFsKQPaxpFfpFzyLML3x 8LqPd68 V25tRGhvKIGyYNVmHIVmYQB ukDmthq6pwP6uKr6+PC9jb2 wnqp96gB34xDB+ZUAhKVN4x WxlPSdw RSHdzA8zFCmoRpJ1MTMbEvH fzT95kYSdDChsJp5abMoutP ctIT9yPDKentbzc958LxRkx 2xkIDEw mSLhAJfpBSC1M34zk0I1OFX dQPHdHCD7cPG4qS0tjKzunz ogbGVmdDsgdmVydGljYWwtY BhnV790 IHRvcDsnPlBhdGllbnQgTmF xWCv5R6PqUko0SSEdzDtqQM 0haUHtVPsyAw2koNoueQthX X3kFZAi bgbyy186HoQes5ftBGUtpCO sVQxdKTO3Y26dd0D3UEQzAB MnARW5zXS7qV2gqCjdqykof GVmdDsg svFncRwcOVhjJLreD045NOY zgRoaWzQkhvZdNSOowLJ7EJ 24WL90cZYfo2R3iST6P3LbO GRpbmct lnmpqEO4QWNiTQJpgT92Fe3 sdBpoOh5dVPIlTKQ8LWXutV BiN0QzsU3iZrRzWZJyYQXcD 3RleHQt MHjqJ454NPocKjH6WLAjajC uQ4ZxWPXbvCjyKvM8n3N1Fy 3QX6D3MQ82EK73zQHpl6B4f XQ4L7Yr TFAyugbiinmcwXN0QXHtEPU sbJ75Nz2aaTryWd1yQWOhZA E3QWNfkNWvT3UpaT1vDnBgC DAwMDAw X3HilRMkDLorI045MFvsKoP 0DZJqskJzB3NbJOYelKegDi L6z7Q7Yi0YYXp5KR44BU46a SRgr1P6 mXC5Y6ZoGMUkxuaopbcckBQ 7BVOqDLGhwI72Um9tjOwpKc 4hCZInKCZ8RVWhoVCvR0Wqp H3iHwSs RQQlVUKsB0EquMQtVOryV88 6LYggXtG0EPVzvsSjX2YhRZ NjsEqlWwC1y0S8Fc0NPLLtS W33JTY9 oMZ5SM12HW84I4TyJtztxXO ibGU+PHRhYmxlIHdpZHRoPS ceAMTnAdCqyXstVU4qVo6uE GVyLWNv eOxzfCIuVbZwa9dwKGVoBAw mGZ4mzBytZ1KyaGY4YBWdb7 n4Rb19C27fX1CykDA+PGNvb AU3bKQ7 lG6eTzEkDbA6HZxkO985RuB wjBNbSofpa8hnu7uvsPb4Ci E5OGDvyxTujNzxVFA1h0BgJ l52P22f IHdpZHRoPSIxNSUiIHZhbGl eqd1ssP0zTj0+VZXyePQ4mQ O4yQ7vGvSjEiS0QJbxB917D nRvcCIv Mzuvz7ovi8lmkRu4MpKrKXK cyfHjnMbtJUL0u9EvJj68U8 DsjQerr6NeVte8ef54aBSwq 8V8rBI6 Q5IhSEKodrniaVFsxKevWW5 bCSHiuwxkHKUfoN7uVKWkZ3 e6JtBqXmB8QJbtI9NtgvJ8V DEwcHQg SJiuDLY4P72pk5V7YNKvWPI xCFN4tBS8aW4pmZyzgqodqK VmdDsgdmVydGljYWwtYWxpZ 246IHRv kYgzHBPtuI2zNPIoyCBiaOk qQJ6sPXNlpeitQljXEJlGCD yQSkqjFHRMLA20Z7GvTpc1E CBzdHls MO4ffCYxHTyxLa5bqCshnIa gJB5rQAJtmxqkGBPwfY3jFV UfpTRzvJwxWE9iUWTfmuizr 250OiAx ARJ3XNLzcPRpH5UvhK9jGuD qXLPpQGKiN3HayTWtHVwtW1 19TLciVaM9WXXkvwQdK1XdI WFsaWdu TmV7g0T3Kb5pAI8mEG5oVVl cDA12JH35cPSew2O7lVE0J0 TfMCEjbnwhwfxzvIH9KVNxX DUwaW47 hSZzCSvtKq7ii6I6r373NQA hBHHrqJ04Ie7dbProLTUrdV PJgX0ygdhst0xbctplKiOwM DAwMDt0 TZr3EFMzgXuvOeFxGSX6HpW 3LYM0sCUsvC5tfNbyqlpylD 9wOyc+QiEiMWPhgxW0K4OxY eh9FIKa lXmrHZ3mgEQvOTlgEr8gcZb yqRddWD6xGARaovxgSPFcwZ 0jWHLqnAMfmUixOB4fGEOfa ifbc498 CnRmHRH2OFGqwUDdW5LctK3 hNtReWPToUHQzN7SbvEGhEE xtE698SShuUpS8FTWnpfLdQ 2FsLWFs aVngVnL6p3O4Ci9ALS5idPF 1K4NfSby5AKDqwQzeML8gmZ IvHHxvMu1hsRiqlQysEX4xX TBpbjtw WFWpiU4mMSVhiZResQqqYG7 pSTLvmdmlr927HuOzYEP0JH BdmNOjE4CdzH0cNtTcINFfZ YDgU6Nk aIUgXQyhL380PHifTnA0NRV zmzYuS8XsIJSudLlqPsJ2t4 F8Ci0HsNWjY1GzO4z7N5FxX jwvdHI+ JW28MCQgAD71fOXtsLVjw0i tcRr1RpWhVOXaSNP8sQpnZX hih7AgFLBtV59lzAOoj2U6C GNvbGxh gOVpIzEffRG5uY6pNIxdnsy aa8khqdajPnvva6dmwu82tO 48T64fUAfyARWcWQIhPPGdG HZhbGln np2myF9bDo2+AGGnzUT2tPC 1qF1vYkKjKfN1XPumB406Tw CqyLEnXzrae4lhy5jxlRx5S jIwJSIg wxYxnPzzTLD6t5UgSy05C65 sIHdpZHRoPSIyMCUiIHZhbG xwkr7mgM3dGq7+YJ4eb7giw z71pN69 dHI+HLBuPJW2qRgjMEwhWNJ gmU1kXTfrFlE9XZArMpGobK 19qHXqPRceCn6fnArkoTiwJ V2tIHQy wejwi447AeRzr9ppPXJaiED bRTbpRMR7Q02zr5E5UDSfOI PsFPX7wCO2dD1zlKrnczkih GVmdDsg qvAycYkmRDfaBWnzU224NDA mpYslErWznOCnU8edrnXQER 1lOjwvdGQ+JBUlPMK8nLpwU SdwYWRk kD9lZOReA0d9RwTkEdB0ZQk lL4WbdpI4ALIajEArPGMchK ZKdE8bdsogb8hynymyZhOwB DAwMDt0 FQv9IQQfvMedGuUnPZE3LpE 1PPG2nUAjyT8vnTbhhmpcmW 9wOyc+RklOOjwvdGQ+PHRkI XS8vOyt FRkqOXOqsL9fSDMcG2c9KxQ tXkK4HPqvK3ElvrN1UXBfuO MiSOVibQNNyI6majico0xqf jogIzAw KQCrRTf3ZYl6ICVquPucDeD kAGH5AmW5AAK4gUKxxU6xnU hxnyndjN4mUys+TVJOOjwvd GQ+PHRk SMO7aGinEFtwUKCwgA1ePFK kK8v5WdYrUgT2ETceF9Bxsz Z3IDDytSCiERNpgDYEaD0rg wbwc4gd qahpCkNqPQYjKYv2SDk6MOX zpLdkVoLrYXY7ZyO3TRW1bG ZiaX6cvOpafterwB3lRxl+U RQ9OEU1 YU71KM61S3JvZvxftZBmcMH +PHRhYmxlIHdpZHRoPScxMD HjFyAhcGuzZR3zFz5eLDWwT WNvbGxh cHNl (more content not included)... Normal [facility] Discharge Instructionson Discharge Instructions [id number] CD:127 Normal [facility] ED Clinical Summaryon 2021 ED Clinical Summary (Inserted Image. Kelsi ble to display) [address] [address] ED Clinical Summary Person Information Name: JESSEE ALMODOVAR/[facility] Age: 32 Years : 1990 Sex: Female Language: Argentine PCP: Marital Status: Phone: [phone] Visit Id: Visit Reason: Foot pain-swelling; HURT LEFT FOOT Speciality: Acuity: 4 Enc Type: Emergency Med Service: Emergency Arrival: 02/23/2022 09:05:13 Discharge: 02/23/2022 10:55:00 LOS: 000 01:50 Checkin: 02/23/2022 09:05:13 Checkout: 02/23/2022 10:55:00 Dispo Type: Home (Routine DC) EVENTS: Event Name Event Status Request Date/Time Start Date/Time Complete Date/Time Arrive Complete 02/23/2022 09:05:13 02/23/2022 09:05:13 02/23/2022 09:05:13 Document Home Meds Request 02/23/2022 09:05:13 Triage Complete 02/23/2022 09:05:13 02/23/2022 09:12:26 02/23/2022 09:12:26 Bed Assign Complete 02/23/2022 09:07:36 02/23/2022 09:07:36 02/23/2022 09:07:36 Dr Exam Complete 02/23/2022 09:07:36 02/23/2022 09:09:23 02/23/2022 09:09:23 RN Exam Complete 02/23/2022 09:07:36 02/23/2022 09:14:44 02/23/2022 09:14:44 Registration Complete 02/23/2022 09:08:31 02/23/2022 09:08:31 02/23/2022 09:08:31 Reg Complete Request 02/23/2022 09:08:31 Reg Bed Request Complete 02/23/2022 09:08:32 02/23/2022 09:08:32 02/23/2022 09:08:32 Registration Complete 02/23/2022 09:09:23 02/23/2022 09:17:54 02/23/2022 09:17:54 Dr Exam Complete 02/23/2022 09:11:26 02/23/2022 09:11:26 02/23/2022 09:11:26 X-Ray Complete 02/23/2022 09:14:39 02/23/2022 09:54:31 02/23/2022 10:11:59 Wet Read Complete 02/23/2022 10:11:59 02/23/2022 10:14:54 02/23/2022 10:14:54 Patient Care Request 02/23/2022 10:46:17 Discharge Complete 02/23/2022 10:47:04 02/23/2022 11:07:01 02/23/2022 11:07:01 Transfer Complete 02/23/2022 11:07:01 02/23/2022 11:07:01 02/23/2022 11:07:01 AD[address]ESS: [address] [place] [id number] PHYS DOC NOTES: MEDICAL INFORMATION: Prescriptions Given: PATIENT EDUCATION INFORMATION: Instructions: Foot Sprain; How to Use Cold Therapy, Azfk-lc-Amkg; Elastic Bandage and RICE Therapy Follow up: With: Address: When: [employer], [address] [place] [id number] Business (3) In 3 days 02/26/2022 Comments: Follow-up with your primary care provider in 3 to 5 days. If symptoms worsen, do not improve, or new symptoms arise please report back to emergency department for further evaluation. DIAGNOSIS: Sprain of left foot [facility] ED Note-Physicianon 02-24-20 ED Note-Physician Basic Information Time Seen: Jose BALL, Mohan Daily. 02/23/2022 09:09 Chief Complaint PT REPORTS L FOOT PAIN THAT STARTED IN THE NIGHT, STATES SHE WOKE UP THIS MORNING TO FOOT SWELLING BUT UNSURE OF ANY INJURY. HX OF SLEEP WALKING History of Present Illness 32-year-old female reports emergency department chief plaint of left foot pain. Reports it started last night. States that she woke up this morning with foot swelling, but is unsure of any injury. She states that she believes that she may have been sleepwalking, or was just barely awake, and thoughts that she did hear a pop in her left foot. Denies any other known trauma or injury to this area. Reports that she has a hard time walking on it because of the pain. Reports it is small on the outside of her foot. Denies taking any medication for this, but stated that she did ice it slightly. Denies any numbness or tingling in her foot. Review of Systems A 10 point review of systems is negative except as noted above. Medical and Surgical History: Reviewed and noted Social history: Lives at home Family History: Reviewed. Tobacco: Denies, former Physical Exam Vitals & Measurements T: 36.9 ?C(Oral) HR: 88(Peripheral) RR: 18 BP: 141/67 SpO2: 98% HT: 172 cm WT: 70 kg BMI: 23.66 General: The patient appears well and in no apparent distress. Patient is resting comfortably in chair. Afebrile. Skin: Warm, dry, no pallor noted. Head: Normocephalic, atraumatic Neck: No JVD Eye: PERRLA, EOMI ENT: Moist mucus membranes Cardiovascular: Regular rate normal peripheral perfusion Respiratory: No respiratory distress no accessory muscle use no obvious audible wheezing Chest Wall: no deformity Musculoskeletal: Limited range of motion of the left foot due to the pain. Tenderness on palpation through the third, fourth, and fifth metatarsal bones. Mild swelling noted on the lateral side of the left foot. GI: No obvious distention Neurological: A&O moves all extremities equal strength and symmetry. Full sensations Psychiatric: Cooperative and appropriate Medical Decision Making 32-year-old female reports emergency department with chief complaint of left foot pain. Denies any injury or trauma to this area, but states that she may have heard a popping sound late last night/early this morning. Reports that she may sleepwalk. Denies any falls or any other types of injuries to the foot. On physical exam, the foot is neurovascularly intact. There is some mild swelling noted on the lateral side of the left foot along the fifth metatarsal bone. Tenderness to palpation on the third, fourth, and fifth metatarsal bones. Based on the patient's concerns, we did perform an x-ray. X-ray reviewed and no acute osseous abnormalities were seen. I discussed with the patient. I discussed is likely a sprain or strain in her foot. Discussed that she needs to continue to rest, ice, compress, and elevate. Follow-up with your primary care provider in 3 to 5 days. If symptoms worsen, do not improve, or new symptoms arise please report back to emergency department for further evaluation. The patient was understanding and agreeable to plan moving forward. May take ibuprofen or Tylenol for pain. Assessment/Plan Sprain of left foot (S93.602A: Unspecified sprain of left foot, initial encounter) Orders: Crutches Elastic Bandage Application XR Foot 3+ Views Left Disposition Plan Patient Discharge Condition Stable Discharge Disposition To home Discharge Prescription List Prescriptions No active prescription medications Follow-up With When Contact Information CHELSEA KRAUS In 3 days 02/26/2022 [facility] [address] [place] [id number] [facility] (1) Additional Instructions: Follow-up with your primary care provider in 3 to 5 days. If symptoms worsen, do not improve, or new symptoms arise please report back to emergency department for further evaluation. Patient Education Foot Sprain How to Use Cold Therapy, Sgbd-bb-Vwvd Elastic Bandage and RICE Therapy Attestation Patient seen and evaluated by the physician program services assistant. Attending physician was present in the emergency department and supervised care. This visit was performed by both the physician and an APC. I performed all aspects of the MDM as documented. This report was transcribed using voice recognition software. Every effort was made to ensure accuracy, however, inadvertently computerized bi manager mistakes may be present. Appropriate healthcare PPE was used in evaluating this patient. The patient was placed in a mask. The healthcare provider was wearing mask, gloves, and utilizing proper hand hygiene. All equipment was properly cleansed. Problem List/Past Medical History Ongoing Denies Historical No qualifying data Procedure/Surgical History Dilatation and curettage (09/01/2015), Myringotomy with Insertion of Tube (1995). Medications Inpatient No active inpatient medications Ho (more content not included)... [facility] Comment on above: Result Comment: Elec tronically Signed By: Mohan Garcia PA-C\.br\Date and Time Signed: 02/23/22 13:47 EDT\.br\Electronically Co-Signed By: Chayo Anne DO\.shelley\Date and Time Co-Signed: 02/23/22 15:49 EDT ED Patient Education Noteon 02-23-2022 ED Patient Education Note Orthopedics Foot Sprain A foot sprain is an injury to one of the strong bands of tissue (ligaments) that connect and support the bones in your feet. The ligament can be stretched too much and tear. A tear can be either partial or complete. The severity of the sprain depends on how much of the ligament was damaged or torn. What are the causes? This condition is usually caused by suddenly twisting or pivoting your foot. What increases the risk? This injury is more likely to occur in people who: ? Play a sport, such as basketball or football. ? Exercise or play a sport without warming up. ? Start a new workout or sport. ? Suddenly increase how long or hard they exercise or play a sport. ? Have previously injured their foot or ankle. What are the signs or symptoms? Symptoms of this condition start soon after an injury and include: ? Pain, especially in the arch of the foot. ? Bruising. ? Swelling. ? Inability to walk or use the foot to support body weight. How is this diagnosed? This condition is diagnosed with a medical history and physical exam. You may also have imaging tests, such as: ? X-rays to make sure there are no broken bones (fractures). ? An MRI to see if the ligament is torn. How is this treated? Treatment for this condition depends on the severity of the sprain. ? Mild sprains can be treated with: ? Rest, ice, compression, and elevation (RICE). ? Keeping your foot in a fixed position (immobilization) for a period of time. This is done if your ligament is overstretched or partially torn. Your health care provider will apply a bandage, splint, or walking boot to keep your foot from moving until it heals. ? Using crutches or a scooter for a few weeks to avoid putting weight on your foot while it is healing. ? Major sprains can be treated with: ? Surgery. This is done if your ligament is fully torn and a procedure is needed to reconnect it to the bone. ? A cast or splint. This will be needed after surgery. A cast or splint will need to stay on your foot while it heals. ? In both types of sprains, you may need to exercise or have physical therapy to strengthen your foot. Follow these instructions at home: If you have a bandage, splint, or boot: ? Wear the bandage, splint, or boot as told by your health care provider. Remove only as told by your health care provider. ? Loosen the bandage, splint, or boot if your toes tingle, become numb, or turn cold and blue. ? Keep the bandage, splint, or boot clean and dry. If you have a cast: ? Do not stick anything inside the cast to scratch your skin. Doing that increases your risk for infection. ? Check the skin around the cast every day. Tell your health care provider about any concerns. ? You may put lotion on dry skin around the edges of the cast. Do not put lotion on the skin underneath the cast. ? Keep the cast clean and dry. Bathing ? Do not take baths, swim, or use a hot tub until your health care provider approves. Ask your health care provider if you may take showers. You may only be allowed to take sponge baths. ? If the bandage, splint, boot, or cast is not waterproof: ? Do not let it get wet. ? Cover it with a watertight covering when you take a shower. Managing pain, stiffness, and swelling ? If directed, put ice on the injured area: ? If you have a removable splint, boot, or immobilizer, remove it as told by your health care provider. ? Put ice in a plastic bag. ? Place a towel between your skin and the bag. ? Leave the ice on for 20 minutes, 2?3 times per day. ? Move your toes often to avoid stiffness and to lessen swelling. ? Raise (elevate) the injured area above the level of your heart while you are sitting or lying down. Driving ? Do not drive or operate heavy machinery while taking pain medicine. ? Ask your health care provider when it is safe to drive if you have a bandage, splint, or walking boot on your foot. Activity ? Do not use the injured foot to support your body weight until your health care provider says that you can. Use crutches or other supportive devices as directed by your health care provider. ? Ask your health care provider what activities are safe for you. Do any exercise or physical therapy as directed. ? Gradually increase how much and how far you walk until your health care provider says it is safe to return to full activity. General instructions ? If you have a cast, do not put pressure on any part of it until it is fully hardened. This may take several hours. ? Take cipy-hdi-rtayueu and prescription medicines only as told by your health care provider. ? When you can walk without pain, wear supportive shoes that have stiff soles. Do not wear flip-flops, and do not walk barefoot. ? Keep all follow-up visits as told by your health care provider. This is important. Contact a health care provider if: ? Your pain is no (more content not included)... [facility] ED Patient Summaryon 022 ED Patient Summary (Inserted Image. Kelsi ble to display) [address] [address] Patient Discharge Instructions Person Information Name: JESSEE ALMODOVAR Age: 32 Years Arrival Date: 02/23/2022 09:05:13 Discharge Diagnosis: Sprain of left foot Primary Care Physician: Provider Information Primary Provider: Chayo Anne DO Advanced Core Drill Operator:None The exam and treatment you received in the Emergency Department were for an urgent problem and are not intended as complete care. It is important that you follow up with a doctor, nurse practitioner, or physician?s program services assistant for ongoing care. If your symptoms become worse or you do not improve as expected and you are unable to reach your usual health care provider, you should return to the Emergency Department. We are available 24 hours a day. JESSEE ALMODOVAR has been given the following list of patient education materials, prescriptions and follow-up instructions: Follow-up Instructions: With: Address: When: CHELSEA COLEEAU [facility], [address] [place] [phone] Business (1) In 3 days 02/26/2022 Comments: Follow-up with your primary care provider in 3 to 5 days. If symptoms worsen, do not improve, or new symptoms arise please report back to emergency department for further evaluation. In the event that this physician does not participate in your insurance network, please consult with your insurance company to find a nearby participating provider. Patient Education Materials: Foot Sprain; How to Use Cold Therapy, Iocx-sx-Inbq; Elastic Bandage and RICE Therapy A MESSAGE TO ALL PATIENTS REGARDING OPIOIDS PRESCRIPTION OPIOIDS: WHAT YOU NEED TO KNOW Prescription opioids can be used to help relieve lklfirac-eo-xgctwp pain and are often prescribed following a surgery or injury, or for certain health conditions. These medications can be an important part of the treatment but also come with serious risks. It is important to work with your healthcare provider to make sure you are getting the safest, most effective care. WHAT ARE THE RISKS AND SIDE EFFECTS OF OPIOID USE? Prescription opioids carry serious risks of addiction and overdose, especially with prolonged use. An opioid overdose, often marked by slowed breathing, can cause sudden . The use of prescription opioids can have a number of side effects as well, even when taken as directed: ? Tolerance?meaning you might need to take more of the medication for the same pain relief ? Physical dependence?meaning you have symptoms of withdrawal when a medication is stopped ? Increased sensitivity to pain ? Constipation ? Nausea, vomiting, and dry mouth ? Sleepiness and dizziness ? Confusion ? Depression ? Low levels of testosterone that can result in lower sex drive, energy, and strength ? Itching and sweating RISKS ARE GREATER WITH: ? History of drug misuse, substance use disorder, or overdose ? Mental health conditions (such as depression or anxiety) ? Sleep apnea ? Older age (65 years and older) ? Avoid alcohol while taking prescription opioids. Also, unless specifically advised by your health care provider, medications to avoid include: ? Benzodiazepines (such as Xanax or Valium) ? Muscle relaxants (such as Soma or Flexeril) ? Hypnotics (such as Ambien or Lunesta) ? Other prescription opioids KNOW YOUR OPTIONS Talk to your health care provider about ways to manage your pain that don?t involve prescription opioids. Some of these options may actually work better and have fewer risks and side effects. Options may include: ? Pain relievers such as acetaminophen, ibuprofen, and naproxen ? Some medication that are also used for depression or seizures ? Physical therapy and exercise ? Cognitive behavioral therapy, a psychological, goal-directed approach, in which patients learn how to modify physical, behavioral, and emotional triggers of pain and stress. IF YOU ARE PRESCRIBED OPIOIDS FOR PAIN: ? Never take opioids in greater amounts or more often than prescribed. ? Follow up with your primary health care provider. o Work together to create a plan on how to manage your pain. o Talk about ways to help manage your pain that don?t involve prescription opioids. o Talk about any and all concerns and side effects. ? Help prevent misuse and abuse o Never sell or share prescription opioids. o Never use another person?s prescription opioids. ? Store prescription opioids in a secure place and out of reach of others (this may include visitors, children, friends, and family). ? Safely dispose of unused prescription opioids: Find your community drug take-back program or your pharmacy mail-back program, or flush them down the toilet, following guidance from the Food and Drug Administration (www.fda.gov/Drugs/Reso Noniu). ? Visit www.cdc.gov/ (more content not included)... [facility] XR Foot 3+ Views Lefton 11-0 XR Foot 3+ Views Left Exam Date/Time: 02/23/2022 10:11 EDT Reason for Exam: Pain, Non Traumatic Report IMPRESSION: NO ACUTE OSSEOUS ABNORMALITY. EXAM: XR Foot 3+ Views Left COMPARISON: None available HISTORY: Lateral foot pain. TECHNIQUE: AP, lateral and oblique views of the foot obtained. FINDINGS: No acute fracture or dislocation. Joint spaces are preserved. Soft tissues are within normal limits. FINAL REPORT Dictated: 02/23/2022 10:35 am Azar Chatterjee DO Signed (Electronic Signature): 02/23/2022 10:35 am Signed by: Azar Chatterjee DO Transcribed by: SUZY Technologist: TIM [facility] XR Pelvis and Hip - right AP and Lateral frogon 02-19-2022 IMPRESSION: 1. Intramedullary bone lesion in the proximal right femur with nonaggressive radiographic characteristics. Differential diagnosis considerations include liposclerosing myxofibrous tumor. Transcribe Date/Time: Feb 19 2022 8:13A Dictated by: CHAYO CORTEZ MD This examination was interpreted and the report reviewed and electronically signed by: CHAYO CORTEZ MD on Feb 19 2022 10:27AM EST Thank you for allowing us to participate in the care of your patient. Should there be any questions regarding this interpretation, please call [phone]. If you are unable to reach us at the number above, please feel free to contact [facility] at [phone]. DIVISION OF RADIOLOGY * * *Final Report* * * DATE OF EXAM: Feb 18 2022 3:07PM [id number] - XR HIP 3V PELV+ AP/LAT RT / PROCEDURE REASON: Lytic bone lesion of femur * * * * Physician Interpretation * * * * RESULT: HIP RADIOGRAPHS - RIGHT HISTORY: Lytic bone lesion of femur TECHNOLOGIST PROVIDED HISTORY (if applicable): pain; lesion on CT rt hip TECHNIQUE: XR HIP 3V PELV+ AP/LAT RT COMPARISON: CT pelvis 02/09/2022 RESULT: 5.4 cm intramedullary bone lesion in the right intertrochanteric femoral neck. There is an inner ring of well-defined sclerosis with peripheral sclerosis that is less well-defined. There is no cortical destruction, periostitis, or appreciated soft tissue mass. The femoral head and hip joint have normal appearance. Pelvic ring is intact. There is mild symphysis pubis arthrosis. Sacroiliac joints appear intact. The left femoral head and neck morphology is normal, and there is no radiographic abnormality of the femoral head. The hip joint appears preserved. DIVISION OF RADIOLOGY Provider, [facility] - 02/19/2022 * * *Final Report* * * DATE OF EXAM: Feb 18 2022 3:07PM [id number] - XR HIP 3V PELV+ AP/LAT RT / PROCEDURE REASON: Lytic bone lesion of femur * * * * Physician Interpretation * * * * RESULT: HIP RADIOGRAPHS - RIGHT HISTORY: Lytic bone lesion of femur TECHNOLOGIST PROVIDED HISTORY (if applicable): pain; lesion on CT rt hip TECHNIQUE: XR HIP 3V PELV+ AP/LAT RT COMPARISON: CT pelvis 02/09/2022 RESULT: 5.4 cm intramedullary bone lesion in the right intertrochanteric femoral neck. There is an inner ring of well-defined sclerosis with peripheral sclerosis that is less well-defined. There is no cortical destruction, periostitis, or appreciated soft tissue mass. The femoral head and hip joint have normal appearance. Pelvic ring is intact. There is mild symphysis pubis arthrosis. Sacroiliac joints appear intact. The left femoral head and neck morphology is normal, and there is no radiographic abnormality of the femoral head. The hip joint appears preserved. IMPRESSION IMPRESSION: 1. Intramedullary bone lesion in the proximal right femur with nonaggressive radiographic characteristics. Differential diagnosis considerations include liposclerosing myxofibrous tumor. Transcribe Date/Time: Feb 19 2022 8:13A Dictated by: CHAYO CORTEZ MD This examination was interpreted and the report reviewed and electronically signed by: CHAYO CORTEZ MD on Feb 19 2022 10:27AM EST Thank you for allowing us to participate in the care of your patient. Should there be any questions regarding this interpretation, please call [phone]. If you are unable to reach us at the number above, please feel free to contact [facility] eRadiology at [phone]. [facility] XR Pelvis and Hip - right AP and Lateral frogOrdered By: [facility] Provider on 02-19-2022 [facility] XR Pelvis and Hip - right AP and Lateral frogon 02-18-2022 Radiology Study observation (narrative) [facility] CT ABD/PELV W CONon 02-12-20 CT ABD/PELV W CON EXAMINATION: CT ABD/PELV W CON, 02/09/2022 8:33 AM EDT HISTORY: Abnormal uterine bleeding unrelated to menstrual cycle COMPARISON: None. TECHNIQUE: CT scan of the abdomen and pelvis was performed with IV contrast. CT dose reduction technique was used, including Automated Exposure Control. FINDINGS: LUNG BASES: No visible pulmonary or pleural disease. LIVER: No enlargement, atrophy, abnormal density, or significant focal lesion. BILIARY: No dilatation or calcification. PANCREAS: No lesion, fluid collection, ductal dilatation, or atrophy. SPLEEN: No enlargement or focal lesion. ADRENALS: No mass or enlargement. KIDNEYS: No mass, obstruction, or calcification. BOWEL/MESENTERY: No visible mass, obstruction, or bowel wall thickening. AORTA/VASCULAR: No aneurysm or dissection. RETROPERITONEUM: No mass or adenopathy. LYMPH NODES: No adenopathy. URINARY BLADDER: No visible focal wall thickening, lesion, or calculus. PELVIC ORGANS: No visible mass. Pelvic organs appropriate for patient age. Tampon in the vagina ABDOMINAL WALL: No mass or hernia. BONES: 4.5 cm lytic lesion with a wide zone of transition identified in the proximal right femur no cortical breakthrough. OTHER: Negative. IMPRESSION: No acute intraperitoneal abnormality Indeterminate lytic lesion with a sclerotic rim in the right intertrochanteric femur. Plain film correlation recommended Electronically authenticated by: EMELIA STEWART Date: 2022-02-11 07:23 Normal [facility] US PELVIS AND TRANSVAGon US PELVIS AND TRANSVAG EXAMINATION: US PELVIS AND TRANSVAG HISTORY: Pelvic and perineal pain ; intermittent right lower quadrant pain for 2 months COMPARISON: Ultrasound pelvis 10/28/2020 TECHNIQUE: Transabdominal and transvaginal sonographic examination. FINDINGS: UTERUS: Normal size and appearance. Uterus size: 8.2 x 3.8 x 5.3 cm ENDOMETRIUM: Normal homogeneous appearance. Endometrial thickness: 6 mm RIGHT OVARY: Normal size and appearance. Duplex Doppler demonstrates normal waveform and flow; resistive index 0.6. Ovary size: 2.4 x 1.3 x 3.0 cm LEFT OVARY: Normal size and appearance. Duplex Doppler demonstrates normal waveform and flow; resistive index 0.5. Ovary size: 3.4 x 1.6 x 3.2 cm CUL-DE-SAC: Unremarkable. No significant free fluid. BLADDER: Unremarkable. OTHER: None. IMPRESSION: 1. No abnormal or suspicious findings to account for patient's symptoms. Electronically authenticated by: JENNIFER HARTLEY Date: 2022-01-08 14:12 Normal [facility] UA DIP, URINE (POC)on 2021 BILIRUBIN UA (POCT) Negative Negative [facility] CLARITY UA (POCT) Cloudy [facility] COLOR UA (POCT) Yellow [facility] GLUCOSE UA (POCT) Negative Negative mg/dL [facility] HEMOGLOBIN/BLOOD UA (POCT) Trace-intact Abnormal Negative [facility] KETONE UA (POCT) Negative Negative mg/dL [facility] LEUKOCYTES UA (POCT) Small Abnormal Negative [facility] NITRITE UA (POCT) Negative Negative [facility] PH UA (POCT) 6.5 4.5 - 8.0 [facility] Protein Ql (U) Negative Negative mg/dL [facility] SPECIFIC GRAVITY UA (POCT) 1.015 1.005 - 1.030 [facility] UROBILINOGEN UA (POCT) 0.2 E.U./dL Normal E.U./dL [facility] Large Joint Arthro/Inj: R gr eater trochanteric bursa [facility] Vital Signs Date Time Vital Sign Value Performing Clinician Facility 02-25-2023 13:16050 Body height 185.4 cm Rosas Mckinney MD Work Phone: [facility] 02-25-2023 13:16050 Body weight 76.67 kg Rosas Mckinney MD Work Phone: [facility] 07-10-2022 15:15-0400 Body height 181.61 cm Imad Asaad Other [employer] Other 07-10-2022 15:15-0400 Body mass index (BMI) [Ratio] 24.48 kg/m2 Imad Asaad Other [employer] Other 07-10-2022 15:15-0400 Body weight 80.74 kg Imad Asaad Other [employer] Other 07-10-2022 15:15-0400 Diastolic blood pressure 78 mm[Hg] Imad Asaad Other [employer] Other 07-10-2022 15:15-0400 Systolic blood pressure 130 mm[Hg] Imad Asaad Other [employer] Other 05-26-2022 09:29-0500 Blood Pressure Location Roxanne MOSLEY [facility] 05-26-2022 09:29-0500 Body temperature 98.42 [degF] Roxanne MOSLEY [facility] 05-26-2022 09:29-0500 Diastolic blood pressure 78 mm[Hg] Roxanne MOSLEY [facility] 05-26-2022 09:29-0500 Heart rate 115 /min Roxanne MOSLEY [facility] 05-26-2022 09:29-0500 SaO2% (BldA) [Mass fraction] 98 % Roxanne MOSLEY [facility] 05-26-2022 09:29-0500 Systolic blood pressure 120 mm[Hg] Roxanne MOSLEY [facility] 02-23-2022 09:10-0400 Body temperature 98.42 [degF] Chayo Anne [facility] 02-23-2022 09:10-0400 Diastolic blood pressure 67 mm[Hg] Chayo Anne [facility] 02-23-2022 09:10-0400 Heart rate 88 /min Chayo Anne [facility] 02-23-2022 09:10-0400 Respiratory rate 18 /min Chayo Anne [facility] 02-23-2022 09:10-0400 SaO2% (BldA) [Mass fraction] 98 % Chayo Anne [facility] 02-23-2022 09:10-0400 Systolic blood pressure 141 mm[Hg] Chayo Anne [facility] Encounters Encounter Date Encounter Type Care Provider Facility Start: 01-13-2024 End: 01-13-2024 ambulatory GUILLAUME PEDRO Not Available Start: 01-05-2024 End: 01-05-2024 ambulatory ANUPAMA BROWN [facility] Start: 12-30-2023 End: 12-30-2023 ambulatory GUILLAUME PEDRO Not Available Start: 12-16-2023 End: 12-16-2023 ambulatory GUILLAUME PEDRO Not Available Start: 12-08-2023 End: 12-08-2023 ambulatory ANUPAMA BROWN Facility[facility] Start: 11-20-2023 End: 11-20-2023 ambulatory ANUPAMA BROWN [facility] Start: 11-18-2023 End: 11-18-2023 ambulatory ELISEO SANDERSON Not Available Start: 10-22-2023 End: 10-22-2023 ambulatory GUILLAUME R PEDRO Facility:[facility] Start: 10-21-2023 End: 10-21-2023 ambulatory GUILLAUME PEDRO Not Available Start: 10-16-2023 End: 10-16-2023 ambulatory [facility] Start: 09-24-2023 End: 09-24-2023 ambulatory ELISEO SANDERSON Not Available Start: 08-26-2023 End: 08-26-2023 ambulatory GUILLAUME PEDRO Not Available Start: 08-08-2023 End: 08-08-2023 ambulatory GUILLAUME R PEDRO Facility:[facility] Start: 07-24-2023 End: 07-24-2023 ambulatory GUILLAUME PEDRO Not Available Start: 06-04-2023 End: 06-04-2023 ambulatory ASIF SCHAEFER [facility] Start: 06-02-2023 End: 06-02-2023 Phys/qhp telephone evaluation 5-10 min Guillaume Pedro DO Work Phone: [facility] Comment on above: Irregular menses (Pr imary Dx) Start: 06-02-2023 End: 06-02-2023 ambulatory GUILLAUME PEDRO Not Available Start: 05-28-2023 Chart abstracting Guillaume Pedro DO Work Phone: [facility] Start: 05-16-2023 End: 05-16-2023 ambulatory ANUPAMA BROWN Facility[facility] Start: 05-05-2023 End: 05-05-2023 ambulatory ANUPAMA BROWN [facility] Start: 05-02-2023 End: 05-02-2023 ambulatory ASIF SCHAEFER [facility] Start: 05-02-2023 End: 05-02-2023 Office outpatient visit 25 minutes Asif Schaefer VIDEOTAPE EDITOR-SHELL MOLDER Work Phone: [facility] Comment on above: Attention deficit hy peractivity disorder (ADHD), predominantly inattentive type (Primary Dx); Moderate episode of recurrent major depressive disorder (CMS-HCC); Generalized anxiety disorder Start: 03-04-2023 End: 03-04-2023 ambulatory GUILLAUME PEDRO Not Available Start: 02-25-2023 End: 02-25-2023 ambulatory ANUPAMA BROWN Facility[facility] Start: 02-25-2023 End: 02-25-2023 Office outpatient visit 25 minutes Rosas Mckinney MD Work Phone: Orthopaedics Comment on above: Lytic bone lesion of femur (Primary Dx); Greater trochanteric bursitis of right hip; Chronic pain of right hip; Chronic low back pain, unspecified back pain laterality, unspecified whether sciatica present; Pain of right hip; Bone lesion Start: 02-20-2023 End: 02-20-2023 ambulatory ANUPAMA BROWN Facility[facility] Start: 02-20-2023 End: 02-20-2023 Subsequent hospital visit by physician General Thi Bunch Mc Work Phone: Radiology Comment on above: 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] Start: 02-17-2023 Telephone encounter Roni harvey MD Work Phone: Hematology/Oncology Start: 11-15-2022 Orders Only Anupama Brown DO Work Phone: Hematology/Oncology Comment on above: Unspecified hypothyr oidism (Primary Dx); Essential hypertension, malignant; Lipids blood increased; Vegans' anemia Start: 08-09-2022 Orders Only Roni escudero MD Work Phone: Hematology/Oncology Comment on above: Moderate episode of recurrent major depressive disorder (HCC) (Primary Dx) Start: 08-01-2022 End: 08-01-2022 Subsequent hospital visit by physician General Thi Bunch Work Phone: Radiology Comment on above: 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] Start: 07-10-2022 End: 07-10-2022 ambulatory Imad Asaad Other [employer] Other Start: 07-10-2022 Office outpatient ne w 45 minutes Imad Asaad [facility] Start: 05-26-2022 End: 05-27-2022 ambulatory Roxanne MOSLEY Facility:[facility] Start: 05-26-2022 End: 05-26-2022 Patient encounter procedure Roxanne MOSLEY [facility] Start: 05-08-2022 End: 05-08-2022 ambulatory PRAVIN ELISEO SANDERSON Facility: Start: 02-26-2022 End: 02-26-2022 Patient encounter procedure Rosas Mckinney MD Work Phone: Orthopaedics Comment on above: Lytic bone lesion of femur (Primary Dx) Start: 02-23-2022 End: 02-23-2022 Emergency department patient visit Chayo Anne Facility:[facility] Start: 02-23-2022 End: 02-23-2022 Emergency department patient visit hCayo Anne [facility] Start: 02-18-2022 End: 02-18-2022 Subsequent hospital visit by physician General Thi Bunch Mc Work Phone: Radiology Comment on above: 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] Start: 02-09-2022 End: 02-10-[address] GUILLAUME VASQUEZ Facility:[facility] Start: 01-08-2022 End: 01-09-[address] GUILLAUME VASQUEZ Facility: Start: 12-06-2021 Orders Only Rebecca Treadwell RN Hematol ogy/Oncology Comment on above: Unspecified hypothyr oidism (Primary Dx) Start: 11-08-2021 Manual pelvic examination Natanael Mixon MD Work Phone: Hematology/Oncology Comment on above: Pelvic pain (Primary Dx) Dysuria (Primary Dx) Start: 11-08-2021 End: 11-08-2021 Nursing evaluation of patient and report Félix Mcwilliams Work Phone: Hematology/Oncology Comment on above: Dysuria (Primary Dx) Start: 10-04-2021 Orders Only Macy Jones APRN.CNP Work Phone: Hematology/Oncology Comment on above: Acute bilateral low back pain with bilateral sciatica (Primary Dx) Procedures Date Procedure Procedure Detail Performing Clinician Start: 08-08-2023 Antibody screen ANUPAMA AVERY Comment on above: Order Comment: Speci men Type: BLOOD SPECIMEN Ordering Facility: External Submitter Address: , , Performed By: #### T SCR #### CC MAIN BLOOD BANK [facility] [id number] [place] [address] [place] Start: 02-25-2023 Arthrocentesis aspir &/inj major jt/bursa w/o us Tiana Cronin PA-C Work Phone: Start: 02-20-2023 Radex hip unilateral with pelvis 2-3 views Roni Dumas MD Work Phone: Start: 08-08-2022 Adult depression scr eening assessment Asif Schaefer VIDEOTAPE EDITOR-SHELL MOLDER Work Phone: Start: 08-01-2022 Radex hip unilateral with pelvis 2-3 views Jerome Avery DO Work Phone: Start: 02-18-2022 Radex hip unilateral with pelvis 2-3 views Roni Dumas MD Work Phone: Start: 11-08-2021 Urnls dip stick/tabl et rgnt auto w/o microscopy Natanael Mixon MD Work Phone: Start: 09-01-2015 Dilation and curetta ge of uterus Chayo Anne Start: 04-21-1995 Myringotomy with ins ertion of tube Chayo Anne Plan of Treatment Date Care Activity Detail Author Start: 01-04-2030 DTaP,Tdap and Td Vac cines (4 - Td or Tdap) DTaP,Tdap and Td Vaccines (4 - Td or Tdap) [facility] Start: 01-04-2030 Urine microalbumin profile DTa P,Tdap,Td Vaccine (4 - Td or Tdap) [facility] Start: 03-10-2024 Tobacco Screening Tobacco Screening [facility] Start: 02-23-2024 Screening for malign ant neoplasm of cervix [facility] Start: 12-21-2023 Covid-19 Vaccine ( season) Covid-19 Vaccine ( season) [facility] Start: 12-21-2023 Covid-19 Vaccine ( season) Covid-19 Vaccine ( season) [facility] Start: 12-21-2023 Influenza vaccination Influenza Vacc ine (#1) [facility] Start: 08-09-2023 Adult BMI Screening Adult BMI Screen ing [facility] Start: 08-09-2023 Depression Screening Depression Scre ening [facility] Start: 05-29-2023 End: 05-29-2023 Patient encounter procedure 05/29/2023 8:10 AM EST Office Visit [facility] [address] [place] [id number] Guillaume Vasquez, [address] [place], [place] [id number] Irregular menses [facility] Comment on above: Irregular menses Start: 12-20-2022 Covid-19 Vaccine ( season) Covid-19 Vaccine ( season) [facility] Start: 12-20-2022 Influenza vaccination INFLUENZA (#1) [facility] Start: 11-15-2022 End: 01-15-2023 Comprehensive metabolic 2000 panel - Serum or Plasma [facility] Work Phone: Comment on above: Expected: 11/15/2022 , Expires: 01/15/2023 Start: 11-15-2022 End: 01-15-2023 Lipid 1996 panel - Serum or Plasma [facility] Work Phone: Comment on above: Expected: 11/15/2022 , Expires: 01/15/2023 Start: 11-15-2022 End: 01-15-2023 T4/FTI/T4U [facility] Work Phone: Comment on above: Expected: 11/15/2022 , Expires: 01/15/2023 Start: 11-15-2022 End: 01-15-2023 Thyrotropin [Units/volume] in Serum or Plasma [facility] Work Phone: Comment on above: Expected: 11/15/2022 , Expires: 01/15/2023 Start: 08-26-2022 End: 03-28-2023 XR HIP GENERAL 3V PELV/AP/LAT RIGHT XR HIP GENERAL 3V PELV/AP/LAT RIGHT Radiology Routine Lytic bone lesion of femur Expected: 08/26/2022, Expires: 03/28/2023 [facility] Work Phone: Comment on above: Expected: 08/26/2022 , Expires: 03/28/2023 Start: 08-09-2022 End: 10-09-2022 25-hydroxyvitamin D3 [Mass/volume] in Serum or Plasma [facility] Work Phone: Comment on above: Expected: 08/09/2022 , Expires: 10/09/2022 Start: 04-21-2022 DEPRESSION ASSESSMENT [facility] Start: 12-20-2021 Influenza vaccination INFLUENZA (#1) [facility] Start: 12-06-2021 End: 02-05-2022 Thyrotropin [Units/volume] in Serum or Plasma [facility] Work Phone: Comment on above: Expected: 12/06/2021 , Expires: 02/05/2022 Start: 12-06-2021 End: 02-05-2022 Thyroxine (T4) free [Mass/volume] in Serum or Plasma [facility] Work Phone: Comment on above: Expected: 12/06/2021 , Expires: 02/05/2022 Start: 12-06-2021 End: 02-05-2022 Triiodothyronine (T3) [Mass/volume] in Serum or Plasma [facility] Work Phone: Comment on above: Expected: 12/06/2021 , Expires: 02/05/2022 Start: 11-08-2021 End: 01-08-2022 Choriogonadotropin ( test) [Presence] in Urine [facility] Work Phone: Comment on above: Expected: 11/08/2021 , Expires: 01/08/2022 Start: 11-08-2021 End: 01-08-2022 URINALYSIS, REFLEX MICROSCOPIC [facility] Work Phone: Comment on above: Expected: 11/08/2021 , Expires: 01/08/2022 Start: 04-21-2021 DEPRESSION ASSESSMENT DEPRESSION ASS ESSMENT [facility] Start: 2021 HPV TESTING HPV TESTING [facility] Start: 10-13-2020 COVID-19 VACCINE (3 - Booster for Moderna series) COVID-19 VACCINE (3 - Booster for Moderna series) [facility] Start: 07-10-2020 COVID-19 VACCINE (3 - Booster for Moderna series) COVID-19 VACCINE (3 - Booster for Moderna series) [facility] Start: 07-10-2020 COVID-19 VACCINE (3 - Moderna series) COVID-19 VACCINE (3 - Moderna series) [facility] Start: 02-08-2012 PAP TESTING PAP TESTING [facility] Start: 02-08-2012 Screening for malign ant neoplasm of cervix [facility] Start: 2010 Urine microalbumin profile DTA P,TDAP,TD (1 - Tdap) [facility] Start: 2009 Anxiety Screening Anxiety Screening [facility] Start: 2009 Depression Screening Depression Scre ening [facility] Start: 2009 HEPATITIS C SCREENING HEPATITIS C SC REENING [facility] Start: 2009 HIV SCREENING HIV SCREENING [facility] Start: 2003 Adult depression scr eening assessment DEPRESSION SCREENING [facility] Start: 1997 Pneumococcal vaccination [facility] Start: 1991 HEPATITIS B (1 of 3 - 3-dose series) HEPATITIS B (1 of 3 - 3-dose series) [facility] Bacteria identified in Urine by Culture URINE CULTURE Microbiology Routine Pelvic pain 11/08/2021 11:36 AM EDT [facility] Work Phone: End: 06-02-2023 Drug Screen, Urine Drug Screen, Urine Lab Routine Attention deficit hyperactivity disorder (ADHD), predominantly inattentive type 1 Occurrences starting 05/02/2023 until 06/02/2023 [facility] Work Phone: Comment on above: 1 Occurrences starti ng 05/02/2023 until 06/02/2023 End: 03-26-2024 MRI HIP WO IVCON RIGHT MRI HIP WO IVCON RIGHT Radiology Routine Greater trochanteric bursitis of right hip Chronic pain of right hip Pain of right hip Bone lesion 1 Occurrences starting 02/25/2023 until 03/26/2024 [facility] Work Phone: Comment on above: 1 Occurrences starti ng 02/25/2023 until 03/26/2024 End: 03-18-2024 XR HIP GENERAL 3V PELV/AP/LAT RIGHT XR HIP GENERAL 3V PELV/AP/LAT RIGHT Radiology Routine Lytic bone lesion of femur 1 Occurrences starting 02/17/2023 until 03/18/2024 [facility] Work Phone: Comment on above: 1 Occurrences starti ng 02/17/2023 until 03/18/2024 [facility] c Immunizations Immunization Date Immunization Notes Care Provider [facility] 01-28-2023 influenza virus vaccine, unspecified formulation Roni Dumas MD Work Phone: [facility] 02-14-2022 influenza virus vaccine, unspecified formulation Rosas Mckinney MD Work Phone: [facility] 01-18-2021 influenza virus vaccine, unspecified formulation Macy Jones APRN.CNP Work Phone: [facility] 03-01-2020 influenza, seasonal, injectable Imad Asaad Other [employer] Other 02-03-2016 influenza, injectable, quadrivalent, contains preservative Imad Asaad Other [employer] Other NEGATED: Highlighted row has not occurred!03-02-2019 influenza, seasonal, injectable Imad Asaad Other [employer] Other Payers Date Payer Category Payer Unknown [id number] 1991 Unknown [id number] 2.16.84 [id number] 1991 Unknown [id number] 2.16.84 [id number] 1991 Unknown [id number] 2.16.84 [id number] 1991 Unknown [id number] 2.16.8 40.1.978186.3.579.2.727 1991 Unknown [id number] 2.16.8 40.1.639975.3.579.2.727 1991 Unknown [id number] 2.16.84 0.1.489801.3.579.2.1286 1991 Unknown [id number] 2.16.8 40.1.211273.3.579.2.1286 1991 Unknown [id number] 2.16.8 40.1.436739.3.579.2.1286 1991 Unknown [id number] 2.16.8 40.1.168853.3.579.2.1286 1991 Unknown [id number] 2.16.84 0.1.016593.3.579.2.1259 1991 Unknown [id number] 2.16.84 0.1.253903.3.579.2.1259 1991 Unknown [id number] 2.16.84 0.1.999397.3.579.2.1259 1991 Unknown [id number] 2.16.84 0.1.548720.3.579.2.1259 1991 Unknown [id number] 2.16.84 0.1.855036.3.579.2.1259 1991 Unknown [id number] 2.16.84 0.1.642111.3.579.2.1259 1991 Unknown [id number] 2.16.84 0.1.968781.3.579.2.1259 1991 Unknown [id number] 2.16.84 0.1.861762.3.579.2.1259 1991 Unknown [id number] 2.16.84 0.1.567663.3.579.2.1259 1991 Unknown [id number] 2.16.840. [id number] 1959 Unknown [id number] Social History Date Type Detail Facility Tobacco smoking status AZIS Tobacco smoking consumption unknown [facility] Work Phone: Start: 1991 Sex Assigned At Not on file [facility] Start: 10-29-2021 End: 02-26-2022 Exposure to SARS-CoV-2 (event) Not sure [facility] Start: 03-21-2013 End: 02-11-2022 Tobacco smoking status Ex-smoker (finding) [facility] Comment on above: quit 01/2013 Start: 02-11-2022 End: 02-26-2022 Sex Assigned At Female [facility] History of tobacco use Current smoker [facility] History of tobacco use Cigarette Smoker [facility] History of tobacco use Passive smoker [facility] Start: 02-11-2022 End: 08-08-2022 Tobacco use and exposure Smokeless tobacco non-user [facility] Start: 02-11-2022 End: 02-26-2022 Alcohol intake Current drinker of alcohol (finding) [facility] Tobacco smoking status Never [facility] Start: 02-11-2022 End: 02-26-2022 History of Social function [facility] Start: 02-25-2023 End: 05-28-2023 Tobacco smoking status NHIS Occasional tobacco smoker [facility] Start: 08-08-2022 Alcohol Comment on the weekends [facility] Start: 05-28-2023 Alcohol Comment caffeine: 2-3 cups per day coffee; soda [facility] Functional Status Date Assessment Result Facility 05-26-2022 Functional Status N/A [facility] 02-23-2022 Functional Status N/A [facility] Clinical Notes 08-20-2015 to 06-02-2023 Guillaume Vasquez DO - 06/02/2023 4:20 PM ESTPsychiatric Progress Note - Asif Schaefer APRN-YOLA - 05/02/2023 10:00 AM ESTPatient Rosas Wilson MD - 02/25/2023 1:10 PM EST Note Date & Type Note Facility 06-02-2023 History of Present illness Narrative Reason for Appointment: Patient ID: Jessee Almodovar is a 33 y.o. female who presents for No chief complaint on file. Patient presents today via telephone call for a telehealth appointment. Patients Phone #: [phone] (mobile) Current Medications: has a current medication list which includes the following prescription(s): biotin, desogestrel-ethinyl estradiol, levothyroxine, lisinopril, omeprazole, mv-min-fe fum-fa-dha, trazodone, and venlafaxine xr. Medical History: Active Ambulatory Problems Diagnosis Date Noted No Active Ambulatory Problems Resolved Ambulatory Problems Diagnosis Date Noted No Resolved Ambulatory Problems Past Medical History: Diagnosis Date Acne Anxiety Endometrial polyp Hypertension (CMS/HCC) Hypothyroidism (CMS/HCC) Family History Problem Relation Name Age of Onset Hypertension Mother Osteoarthritis Father Other (Heart problems) Maternal Grandmother Cancer Maternal Grandfather Social History Tobacco Use Smoking status: Some Days Types: Cigarettes Smokeless tobacco: Not on file Substance Use Topics Alcohol use: Yes Comment: caffeine: 2-3 cups per day coffee; soda Drug use: Never Past Surgical History: Procedure Laterality Date CERVICAL BIOPSY W/ LOOP ELECTRODE EXCISION 2013 (CIN1...neg. margins). Dr. Hernandez COLPOSCOPY 2013 with biopsies (CIN2). Dr. Hernandez INNER EAR SURGERY tubes in ears No Known Allergies Vitals: Estimated body mass index is 22.74 kg/m as calculated from the following: Height as of 05/07/22: 6' 0.5 . Weight as of 03/04/23: 170 lb. BP: No LMP recorded. Assessment/Plan Irregular menses-start apri, obtain menorrhagia labs and ultrasound, pt considering all options, rto for yearly exam or as needed. Will consider referral to [facility] in future Documented by Guillaume Vasquez DO on behalf of: Guillaume Vasquez DO documented in this encounter [facility] 05-02-2023 Miscellaneous Notes [address] [facility] [id number] Patient: Jessee Almodovar Date of : 1990 Encounter Date: 05/02/2023 History of Present Illness/Psychiatric Review of Symptoms/Medical Review of Systems: Video Visit via Real-time Synchronous Audiovisual Provider Location: [facility] [address] [place] [address] Patient Location: patient's office in [place], [place] Video Visit Consent Statement: I discussed risks, benefits, and alternatives of a real-time synchronous audiovisual consultation with the patient (and any accompanying persons) including the risks that the patient's personal health details and medical records will be discussed over real-time, synchronous, interactive video/audio/telecommunication technology, the visit will not be recorded without the express consent of both the provider and the patient, and that there are some limitations compared to [id number] evaluations. The patient consented to the presence of additional virtual and/or in-person participants. We elected to proceed. Jessee is a 33 y.o. female, established patient, and is logged on via Monitor110 for a follow-up video visit. HPI: Jessee reports she is feeling about the same since last visit. She was unable to tell the difference between taking the immediate release Adderall. She expresses frustrations with still feeling easily distractible. She has had a lot going on since the holidays. She enjoyed Gina and new year's with her immediate family. She traveled to [place] to see her parents, which went well. Since she has been back at work, her schedule has been changing just about every week. She admits to feeling more irritable and becoming short tempered with her loved ones over the last month. She also attributes stress as she is looking for a 2nd job to pay off her stepdaughter's car that was repossessed after her stepdaughter failed to make payments. Jessee also found out that her stepdaughter is with her 2nd child. She reports everything going on with her stepdaughter has been weighing heavy on her and making her feel as if she is in 'limbo.' She endorses feeling tense and on edge. Her anxiety is somewhat triggered ranging between 4-7/10 (with 10 being severe). She is able to cope by talking with her , utilizing positive self talk and directing her thoughts, focusing on her daughter, and putting her energy into things she can control. She reports the depression has been 'pretty steady, ' rating symptoms as a 2/10. Her energy and motivation remains lower than expected. She describes her sleep schedule as a roller coaster. The trazodone has been helpful to obtain 6-7 hours of sleep. She denies major appetite changes, however noticed she has been snacking more than usual. She continues to enjoy spending time with her daughter. She denies feeling hopeless or helpless. She adamantly denies suicidal ideations, plans, or intent for self-harm whatsoever. Patient feels that they are doing well with current medications: Depression and anxiety is manageable. ADHD remains uncontrolled. Patient complains of constitutional, neurological, or gastrointestinal symptoms or other adverse effects possibly from the medication: Patient denies Review of Systems Past Medical, Family, and Social History Update: The following portions of the patient's history were reviewed and updated as appropriate: allergies, current medications, past family history, past medical history, past social history, past surgical history and problem list. Past Medical History: Diagnosis Date Anxiety Depression Thyroid disease Urinary tract infection Past Surgical History: Procedure Laterality Date TYMPANOSTOMY TUBE PLACEMENT Current Outpatient Medications Medication Sig Dispense Refill biotin 5 mg tablet Take by mouth. levothyroxine (SYNTHROID, LEVOTHROID) 175 MCG tablet Take 1 tablet (175 mcg total) by mouth in the morning. lisinopriL (PRINIVIL,ZESTRIL) 10 mg tablet Take 1 tablet (10 mg total) by mouth in the morning. methylphenidate HCl ( PM) 20 mg capsule,del rel,ext rel sprink Take 20 mg by mouth nightly for 15 days. Max Daily Amount: 20 mg 15 each 0 omeprazole (PriLOSEC) 40 mg capsule Take 1 capsule (40 mg total) by mouth in the morning. 25/iron fum/folic/dha (-1 ORAL) Take 1 tablet by mouth daily. traZODone (DESYREL) 100 mg tablet Take 1 tablet (100 mg total) by mouth nightly as needed for sleep. 30 tablet 3 venlafaxine XR (EFFEXOR-XR) 150 mg 24 hr capsule Take 1 capsule (150 mg total) by mouth in the morning. 30 capsule 6 No current facility-administered medications for this visit. (All medications reviewed and updated by provider since last office visit or hospitalization) Allergies: Patient has no known allergies. Tobacco History: Social History Tobacco Use Smoking Status Former Smokeless Tobacco Never (If patient a smoker, smoking cessation counseling offered) Social History: Social History Substance and Sexual Activity Alcohol Use Yes Alcohol/week: 2.0 standard drinks of alcohol Types: 2 Glasses of wine per week Comment: on the weekends Problem List: Patient Active Problem List Diagnosis Hypothyroidism affecting Moderate episode of recurrent major depressive disorder ([facility]) Generalized anxiety disorder Attention deficit hyperactivity disorder (ADHD), predominantly inattentive type ? Physical Exam: There were no vitals taken for this visit. MENTAL STATUS EXAM Level of consciousness: Alert and appears oriented x3. Appearance: Casually dressed. Appropriate for setting. Behavior/Motor: Coordinated and deliberate. Attitude toward examiner: Cooperative, pleasant and open to discussion. Speech: Normal rate, rhythm, and tone. Mood: The same Affect: Calm and mood congruent. Brightens on approach. Thought processes: Logical and linear. Thought content: Homicidal ideation: Patient denies HI, plans and intent. Suicidal Ideation: Patient denies SI, plans and intent for harming self during evaluation. Delusions: Not evident. Perceptual Disturbance: Does not appear to be responding to internal stimuli. Cognition: Age appropriate. Memory: Intact. Insight & Judgement: Intact. ? Assessment and Plan: Diagnoses and all orders for this visit: Attention deficit hyperactivity disorder (ADHD), predominantly inattentive type - methylphenidate HCl (RNA PM) 20 mg capsule,del rel,ext rel sprink; Take 20 mg by mouth nightly for 15 days. Max Daily Amount: 20 mg - Drug Screen, Urine; Future Moderate episode of recurrent major depressive disorder ([facility]) Generalized anxiety disorder Medication Changes: yes start Jornay 20mg nightly for ADHD Patient was well informed of side effects associated with stimulant therapy including risk of habit formation, headaches, increased heart rate and blood pressure, behavioral changes, appetite suppression, weight loss, insomnia, sweating, and anticholinergic effects. Labs Ordered: Urine drug screen per controlled medication protocol OARRS reviewed: Yes Listened and provided supportive therapy during session. YES 30 minutes Risks and benefits of medication reviewed. YES Patient voiced understanding and agreement with the treatment plan. YES Follow-up: In 4 weeks ASIF SCHAEFER CNP, PMHNP-BC. BARAK De Leon 05/02/23 1746 documented [facility] encounter [facility] Progress note Formatting of t his note is different from the original. [address] [facility] [facility] [id number] Patient: Jessee Almodovar Date of : 1990 Encounter Date: 05/02/2023 History of Present Illness/Psychiatric Review of Symptoms/Medical Review of Systems: Video Visit via Real-time Synchronous Audiovisual Provider Location: [facility] [address] [place] [address] Patient Location: patient's office in [place], [place] Video Visit Consent Statement: I discussed risks, benefits, and alternatives of a real-time synchronous audiovisual consultation with the patient (and any accompanying persons) including the risks that the patient's personal health details and medical records will be discussed over real-time, synchronous, interactive video/audio/telecommunication technology, the visit will not be recorded without the express consent of both the provider and the patient, and that there are some limitations compared to [id number] evaluations. The patient consented to the presence of additional virtual and/or in-person participants. We elected to proceed. Jessee is a 33 y.o. female, established patient, and is logged on via Monitor110 for a follow-up video visit. HPI: Jessee reports she is feeling about the same since last visit. She was unable to tell the difference between taking the immediate release Adderall. She expresses frustrations with still feeling easily distractible. She has had a lot going on since the holidays. She enjoyed Gina and new year's with her immediate family. She traveled to [place] to see her parents, which went well. Since she has been back at work, her schedule has been changing just about every week. She admits to feeling more irritable and becoming short tempered with her loved ones over the last month. She also attributes stress as she is looking for a 2nd job to pay off her stepdaughter's car that was repossessed after her stepdaughter failed to make payments. Jessee also found out that her stepdaughter is with her 2nd child. She reports everything going on with her stepdaughter has been weighing heavy on her and making her feel as if she is in 'limbo.' She endorses feeling tense and on edge. Her anxiety is somewhat triggered ranging between 4-7/10 (with 10 being severe). She is able to cope by talking with her , utilizing positive self talk and directing her thoughts, focusing on her daughter, and putting her energy into things she can control. She reports the depression has been 'pretty steady, ' rating symptoms as a 2/10. Her energy and motivation remains lower than expected. She describes her sleep schedule as a roller coaster. The trazodone has been helpful to obtain 6-7 hours of sleep. She denies major appetite changes, however noticed she has been snacking more than usual. She continues to enjoy spending time with her daughter. She denies feeling hopeless or helpless. She adamantly denies suicidal ideations, plans, or intent for self-harm whatsoever. Patient feels that they are doing well with current medications: Depression and anxiety is manageable. ADHD remains uncontrolled. Patient complains of constitutional, neurological, or gastrointestinal symptoms or other adverse effects possibly from the medication: Patient denies Review of Systems Past Medical, Family, and Social History Update: The following portions of the patient's history were reviewed and updated as appropriate: allergies, current medications, past family history, past medical history, past social history, past surgical history and problem list. Past Medical History: Diagnosis Date Anxiety Depression Thyroid disease Urinary tract infection Past Surgical History: Procedure Laterality Date TYMPANOSTOMY TUBE PLACEMENT Current Outpatient Medications Medication Sig Dispense Refill biotin 5 mg tablet Take by mouth. levothyroxine (SYNTHROID, LEVOTHROID) 175 MCG tablet Take 1 tablet (175 mcg total) by mouth in the morning. lisinopriL (PRINIVIL,ZESTRIL) 10 mg tablet Take 1 tablet (10 mg total) by mouth in the morning. methylphenidate HCl (JORNA PM) 20 mg capsule,del rel,ext rel sprink Take 20 mg by mouth nightly for 15 days. Max Daily Amount: 20 mg 15 each 0 omeprazole (PriLOSEC) 40 mg capsule Take 1 capsule (40 mg total) by mouth in the morning. 25/iron fum/folic/dha (-1 ORAL) Take 1 tablet by mouth daily. traZODone (DESYREL) 100 mg tablet Take 1 tablet (100 mg total) by mouth nightly as needed for sleep. 30 tablet 3 venlafaxine XR (EFFEXOR-XR) 150 mg 24 hr capsule Take 1 capsule (150 mg total) by mouth in the morning. 30 capsule 6 No current facility-administered medications for this visit. (All medications reviewed and updated by provider since last office visit or hospitalization) Allergies: Patient has no known allergies. Tobacco History: Social History Tobacco Use Smoking Status Former Smokeless Tobacco Never (If patient a smoker, smoking cessation counseling offered) Social History: Social History Substance and Sexual Activity Alcohol Use Yes Alcohol/week: 2.0 standard drinks of alcohol Types: 2 Glasses of wine per week Comment: on the weekends Problem List: Patient Active Problem List Diagnosis Hypothyroidism affecting Moderate episode of recurrent major depressive disorder (CMS-HCC) Generalized anxiety disorder Attention deficit hyperactivity disorder (ADHD), predominantly inattentive type ? Physical Exam: There were no vitals taken for this visit. MENTAL STATUS EXAM Level of consciousness: Alert and appears oriented x3. Appearance: Casually dressed. Appropriate for setting. Behavior/Motor: Coordinated and deliberate. Attitude toward examiner: Cooperative, pleasant and open to discussion. Speech: Normal rate, rhythm, and tone. Mood: The same Affect: Calm and mood congruent. Brightens on approach. Thought processes: Logical and linear. Thought content: Homicidal ideation: Patient denies HI, plans and intent. Suicidal Ideation: Patient denies SI, plans and intent for harming self during evaluation. Delusions: Not evident. Perceptual Disturbance: Does not appear to be responding to internal stimuli. Cognition: Age appropriate. Memory: Intact. Insight & Judgement: Intact. ? Assessment and Plan: Diagnoses and all orders for this visit: Attention deficit hyperactivity disorder (ADHD), predominantly inattentive type - methylphenidate HCl (JORNAY PM) 20 mg capsule,del rel,ext rel sprink; Take 20 mg by mouth nightly for 15 days. Max Daily Amount: 20 mg - Drug Screen, Urine; Future Moderate episode of recurrent major depressive disorder ([facility]) Generalized anxiety disorder Medication Changes: yes start Jornay 20mg nightly for ADHD Patient was well informed of side effects associated with stimulant therapy including risk of habit formation, headaches, increased heart rate and blood pressure, behavioral changes, appetite suppression, weight loss, insomnia, sweating, and anticholinergic effects. Labs Ordered: Urine drug screen per controlled medication protocol OARRS reviewed: Yes Listened and provided supportive therapy during session. YES 30 minutes Risks and benefits of medication reviewed. YES Patient voiced understanding and agreement with the treatment plan. YES Follow-up: In 4 weeks ASIF SCHAEFER CNP, PMP-. BARAK De Leon 05/02/23 1746 [facility] 02-25-2023 Instructions Tiana Cronin PA-C - 02/25/2023 1:56 PM EST Images from the original note were not included. MRI right hip Home exercises Continue with NSAIDS CSI right hip- may repeat in 3 months if needed documented in this encounter [facility] 02-25-2023 Note HNO ID: [id number] Author: Rosas Mckinney MD Service: ? Author Type: Physician Type: Progress Notes Filed: 03/01/2023 10:50 PM Note Text: [facility] Note Chief Complaint: Bone lesion of right femur- follow up Referring Physician: Roni Dumas History of Present Illness: Jessee is a 33-year-old female presenting for follow-up with right hip pain. She states she has had chronic pain on and off in the hip for many years but in the past year it has gotten worse. She notes most of her pain is on the lateral aspect of the hip and states that it can be worse at night. She notes the pain is Aching, pulsing, throbbing pain. Burning groin pain periodically she also notes low back /lateral hip pain along with iliac wing. She has tried Motrin and Tylenol, alternating, for pain. She has also been trying to do yoga and has done physical therapy in the past throughout the years. She does also note occasional groin pain and low back pain. She notes limited motion of the hip pain with range of motion and catching sensations. She does not walk with an assistive device. She denies any sensations of her leg giving out on her and she denies any radicular symptoms. She denies any swelling. She had updated x-rays of her right hip. She saw Dr. Mckinney last year for an incidental finding of a sclerotic bone lesion in the right proximal femur. Review of Systems: Review of systems is positive for easy bruising and abdominal pain. Other complete ROS is questioned and negative. PAST MEDICAL HISTORY Diagnosis Date Anxiety Depression Hypertension Hypothyroidism No past surgical history on file. ALLERGIES No Known Allergies No current facility-administered medications on file prior to visit. FAMILY HISTORY Problem Relation Age of Onset Anxiety disorder Mother Dementia Maternal Grandmother Pancreatic Cancer Maternal Grandfather Social History Tobacco Use Smoking status: Some Days Types: Cigarettes Passive exposure: Past Smokeless tobacco: Never Substance Use Topics Alcohol use: Yes Drug use: Not Currently Physical Examination: Ht 6' 1 (1.85m) Wt 169 lb 0.3 oz (76.7kg) LMP 02/04/2022 BMI 22.30 kg/(m2). General: alert, oriented, no acute distress Skin: small bruising lateral aspect of left foot HEENT: normocephalic, extraocular movements intact, mucous membranes moist/intact Neck: no cervical lymphadenopathy Cardiovascular: pulse regular, no lower extremity edema Pulmonary: normal respiratory effort and chest wall excursion Abdomen: soft, non-tender, non-distended Hip Musculoskeletal Exam Gait Gait is normal. Inspection Right Erythema: none Ecchymosis: none Edema: none Deformity: none Previous incision: no previous incision Palpation Right Increased warmth: none Tenderness: present Greater trochanteric region pain: moderate Range of Motion Right Right hip range of motion is within functional limits. Active ROM: pain. Passive ROM: pain. Active extension: 20. Passive extension: 20. Active flexion: 110. Passive flexion: 110. Active internal rotation: 30. Passive internal rotation: 30. Active external rotation: 30. Passive external rotation: 30. Active adduction: 30. Passive adduction: 30. Active abduction: 30. Passive abduction: 30. Strength Right Extension: 5/5. Flexion: 5/5. Internal rotation: 5/5. External rotation: 5/5. Adduction: 5/5. Abduction: 5/5. Neurovascular Right Right hip neurovascular exam is normal. Special Tests Right JOSE test (right): positive TTP over the right greater trochanter. Results Reviewed: Laboratory evaluation: CBC, CMP essentially normal, Cr with mild elevation to 1.00. Decreased ferritin and increased TIBC. Radiographic evaluation: XR HIP 02/19/2022 1. Intramedullary bone lesion in the proximal right femur with nonaggressive radiographic characteristics. Differential diagnosis considerations include liposclerosing myxofibrous tumor. CT ABD/PELV 02/09/2022: No acute intraperitoneal abnormality Indeterminate lytic lesion with sclerotic rim in the right intertrochanteric femur. Plain film correlation recommended. 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 Due to continue pain, recommend MRI to evaluate lesion along with assessing soft tissue in the right hip GTB right hip- recommend trialing CSI today into the right GTB MRI right hip due to continue pain failing conservative measures Continue with NDSAIDS Home exercises given from [facility] (more content not included)... [facility] 02-25-2023 History of Present illness Narrative Associated Order(s): Large Joint Arthro/Inj: R greater trochanteric bursa Post-Procedure Diagnose(s): Greater trochanteric bursitis of right hip [facility] Note Chief Complaint: Bone lesion of right femur- follow up Referring Physician: Roni Dumas History of Present Illness: Jessee is a 33-year-old female presenting for follow-up with right hip pain. She states she has had chronic pain on and off in the hip for many years but in the past year it has gotten worse. She notes most of her pain is on the lateral aspect of the hip and states that it can be worse at night. She notes the pain is Aching, pulsing, throbbing pain. Burning groin pain periodically she also notes low back /lateral hip pain along with iliac wing. She has tried Motrin and Tylenol, alternating, for pain. She has also been trying to do yoga and has done physical therapy in the past throughout the years. She does also note occasional groin pain and low back pain. She notes limited motion of the hip pain with range of motion and catching sensations. She does not walk with an assistive device. She denies any sensations of her leg giving out on her and she denies any radicular symptoms. She denies any swelling. She had updated x-rays of her right hip. She saw Dr. Mckinney last year for an incidental finding of a sclerotic bone lesion in the right proximal femur. Review of Systems: Review of systems is positive for easy bruising and abdominal pain. Other complete ROS is questioned and negative. PAST MEDICAL HISTORY Diagnosis Date Anxiety Depression Hypertension Hypothyroidism No past surgical history on file. ALLERGIES No Known Allergies No current facility-administered medications on file prior to visit. FAMILY HISTORY Problem Relation Age of Onset Anxiety disorder Mother Dementia Maternal Grandmother Pancreatic Cancer Maternal Grandfather Social History Tobacco Use Smoking status: Some Days Types: Cigarettes Passive exposure: Past Smokeless tobacco: Never Substance Use Topics Alcohol use: Yes Drug use: Not Currently Physical Examination: Ht 6' 1 (1.85m) Wt 169 lb 0.3 oz (76.7kg) LMP 02/04/2022 BMI 22.30 kg/(m^2). General: alert, oriented, no acute distress Skin: small bruising lateral aspect of left foot HEENT: normocephalic, extraocular movements intact, mucous membranes moist/intact Neck: no cervical lymphadenopathy Cardiovascular: pulse regular, no lower extremity edema Pulmonary: normal respiratory effort and chest wall excursion Abdomen: soft, non-tender, non-distended Hip Musculoskeletal Exam Gait Gait is normal. Inspection Right Erythema: none Ecchymosis: none Edema: none Deformity: none Previous incision: no previous incision Palpation Right Increased warmth: none Tenderness: present Greater trochanteric region pain: moderate Range of Motion Right Right hip range of motion is within functional limits. Active ROM: pain. Passive ROM: pain. Active extension: 20. Passive extension: 20. Active flexion: 110. Passive flexion: 110. Active internal rotation: 30. Passive internal rotation: 30. Active external rotation: 30. Passive external rotation: 30. Active adduction: 30. Passive adduction: 30. Active abduction: 30. Passive abduction: 30. Strength Right Extension: 5/5. Flexion: 5/5. Internal rotation: 5/5. External rotation: 5/5. Adduction: 5/5. Abduction: 5/5. Neurovascular Right Right hip neurovascular exam is normal. Special Tests Right JOSE test (right): positive TTP over the right greater trochanter. Results Reviewed: Laboratory evaluation: CBC, CMP essentially normal, Cr with mild elevation to 1.00. Decreased ferritin and increased TIBC. Radiographic evaluation: XR HIP 02/19/2022 1. Intramedullary bone lesion in the proximal right femur with nonaggressive radiographic characteristics. Differential diagnosis considerations include liposclerosing myxofibrous tumor. CT ABD/PELV 02/09/2022: No acute intraperitoneal abnormality Indeterminate lytic lesion with sclerotic rim in the right intertrochanteric femur. Plain film correlation recommended. 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 Due to continue pain, recommend MRI to evaluate lesion along with assessing soft tissue in the right hip GTB right hip- recommend trialing CSI today into the right GTB MRI right hip due to continue pain failing conservative measures Continue with NDSAIDS Home exercises given from [employer] website for hip conditioning Large Joint Arthro/Inj: R greater trochanteric bursa Informed Consent Consent Obtained: Verbal [place] Protocol A moment to CARE was completed. SIGN IN Personnel directly involved with the procedure wore the appropriate PPE. Special Equipment: N/A Patient/Surrogate Stated/Verified: Patient name, Date of , Relevant allergies and Intended procedure TIME OUT Intended patient and procedure match the source document(s). Consent documented and matches the intended procedure. Relevant labs, photos, and/or imaging studies have been reviewed. Correct side/site marked and visible. Medications required for procedure verified. Fire risk assessed and interventions discussed. No implant(s) inserted. 02/25/2023 2:00 PM The procedure site was prepped in the usual sterile fashion. Site: R greater trochanteric bursa Medications: 80 mg triamcinolone acetonide 40 mg/mL Anesthetics: 4 mL lidocaine (PF) 10 mg/mL (1 %); 4 mL ROPivacaine (PF) 5 mg/mL (0.5 %) Outcome: Tolerated well, no immediate complications Post-injection instructions were reviewed with the patient and the patient voiced understanding of these instructions. SIGN OUT All instruments, equipment, possible retained foreign bodies accounted for. Attending Note I have personally performed a face to face assessment of the patient and have reviewed the SHERRIE note. I performed a substantive portion of the visit including all aspects of the following. My matias findings include: History is both for worsening right hip pain. The pain is localized laterally Exam is significant for greater trochanteric bursitis. The pain extends across a broad area. There is no detectable abductor weakness. Medical Decision Making. Other additions or changes: None Signature: Rosas Mckinney MD Date: 03/01/2023 Time: 10:49 PM documented in this encounter [facility] 02-20-2023 History of Present illness Narrative Radiology Service Progress Note PATIENT NAME: Jessee Almodovar DATE OF SERVICE: February 20, 2023 TIME: 8:45 AM PATIENT IDENTITY VERIFICATION COMPLETED USING TWO (2) IDENTIFIERS: Name and Date of confirmed by patient verbally. FALL SCREENING: Has the patient had 2 falls in the last year or 1 fall with injury or currently using an Ambulatory Assistive Device (Walker, Cane, Wheelchair, Crutches, etc.)? No PATIENT GENDER DATA: Female. status: : No status: NO. PATIENT RELEVANT IMPLANT DATA REVIEWED: Not Applicable RADIOLOGY DEPARTMENT: General X-ray: Exam(s) Completed: Pelvis X-Ray: Pelvis with Hip Right PERIPHERAL IV DATA: Not applicable SIGNED BY: RT Francisco(R) February 20, 2023 8:45 AM documented in this encounter [facility] 02-20-2023 Note HNO ID: [id number] Author: Kathrine Smith RT(R) Service: ? Author Type: Technologist Type: Progress Notes Filed: 02/20/2023 8:46 AM Note Text: Radiology Service Progress Note PATIENT NAME: Jessee Almodovar DATE OF SERVICE: February 20, 2023 TIME: 8:45 AM PATIENT IDENTITY VERIFICATION COMPLETED USING TWO (2) IDENTIFIERS: Name and Date of confirmed by patient verbally. FALL SCREENING: Has the patient had 2 falls in the last year or 1 fall with injury or currently using an Ambulatory Assistive Device (Walker, Cane, Wheelchair, Crutches, etc.)? No PATIENT GENDER DATA: Female. status: : No status: NO. PATIENT RELEVANT IMPLANT DATA REVIEWED: Not Applicable RADIOLOGY DEPARTMENT: General X-ray: Exam(s) Completed: Pelvis X-Ray: Pelvis with Hip Right PERIPHERAL IV DATA: Not applicable SIGNED BY: RT Francisco(R) February 20, 2023 8:45 AM [facility] 02-17-2023 Miscellaneous Notes Jourdan Dennise, My MA Karyna is having quite a bit of pain and dysfunction in the right hip. Most days in the mornings especially, are excruciating for her and she's unable to sleep on her right side. Would you mind to see her again please? I can get additional imaging first, if you'd like. Thanks, Td. documented in this encounter [facility] 08-01-2022 History of Present illness Narrative Radiology Service Progress Note PATIENT NAME: Jessee Almodovar DATE OF SERVICE: August 01, 2022 TIME: 9:04 AM PATIENT IDENTITY VERIFICATION COMPLETED USING TWO (2) IDENTIFIERS: Name and Date of confirmed by patient verbally. FALL SCREENING: Has the patient had 2 falls in the last year or 1 fall with injury or currently using an Ambulatory Assistive Device (Walker, Cane, Wheelchair, Crutches, etc.)? No PATIENT GENDER DATA: Female. status: : No status: NO. PATIENT RELEVANT IMPLANT DATA REVIEWED: Not Applicable RADIOLOGY DEPARTMENT: General X-ray: Exam(s) Completed: Pelvis X-Ray: Pelvis with Hip Right PERIPHERAL IV DATA: Not applicable SIGNED BY: RT Francisco(R) August 01, 2022 9:04 AM documented in this encounter [facility] 07-10-2022 Evaluation note Encounter Date Diagnosis Assessment Notes Jun, Constipation (ICD-10 - K59.00) Jun, Change in bowel habits (ICD-10 - R19.4) Jun, Diarrhea (ICD-10 - R19.7) Patient to start Align probiotic. Jun, Bloating (ICD-10 - R14.0) [employer] Other 02-05-2023 Hospital Discharge instructions Patient Education 05/26/2022 10:06:58 Strep Throat, Adult, [id number] Strep Throat, Adult Strep throat is an infection of the throat. It is caused by germs (bacteria). Strep throat is common during the cold months of the year. It mostly affects children who are 5 15 years old. However, people of all ages can get it at any time of the year. When strep throat affects the tonsils, it is called tonsillitis. When it affects the back of the throat, it is called pharyngitis. This infection spreads from person to person through coughing, sneezing, or having close contact. What are the causes? This condition is caused by the Streptococcus pyogenes germ. What increases the risk? You are more likely to develop this condition if: You care for young children. Children are more likely to get strep throat and may spread it to others. You go to crowded places. Germs can spread easily in such places. You kiss or touch someone who has strep throat. What are the signs or symptoms? Symptoms of this condition include: Fever or chills. Redness, swelling, or pain in the tonsils or throat. Pain or trouble when swallowing. White or yellow spots on the tonsils or throat. Tender glands in the neck and under the jaw. Bad breath. Red rash all over the body. This is rare. How is this treated? This condition may be treated with: Medicines that kill germs (antibiotics). Medicines that treat pain or fever. These include: ?Ibuprofen or acetaminophen. ?Aspirin, only for patients who are over the age of 18. ?Throat lozenges. ?Throat sprays. Follow these instructions at home: Medicines Take [id number] and prescription medicines only as told by your doctor. Take your antibiotic medicine as told by your doctor. Do not stop taking the antibiotic even if youstart to feel better. Eating and drinking If you have trouble swallowing, eat soft foods until your throat feels better. Drink enough fluid to keep your pee (urine) pale yellow. To help with pain, you may have: ?Warm fluids, such as soup and tea. ?Cold fluids, such as frozen desserts or popsicles. General instructions Rinse your mouth (gargle) with a salt-water mixture 3 4 times a day or as needed. To make a salt-water mixture, dissolve 1 tsp (3 6 g) of salt in 1 cup (237 mL) of warm water. Rest as much as you can. Stay home from work or school until you have been taking antibiotics for 24 hours. Avoid smoking or being around people who smoke. Keep all follow-up visits as told by your doctor. This is important. How is this prevented? Do not share food, drinking cups, or personal items. They can cause the germs to spread. Wash your hands well with soap and water. Make sure that all people in your house wash their hands well. Have family members tested if they have a fever or a sore throat. They may need an antibiotic if they have strep throat. Contact a doctor if: You have swelling in your neck that keeps getting bigger. You get a rash, cough, or earache. You cough up a thick fluid that is green, yellow-brown, or bloody. You have pain that does not get better with medicine. Your symptoms get worse instead of getting better. You have a fever. Get help right away if: You vomit. You have a very bad headache. Your neck hurts or feels stiff. You have chest pain or are short of breath. You have drooling, very bad throat pain, or changes in your voice. Your neck is swollen, or the skin gets red and tender. Your mouth is dry, or you are peeing less than normal. You keep feeling more tired or have trouble waking up. Your joints are red or painful. Summary Strep throat is an infection of the throat. It is caused by germs (bacteria). This infection can spread from person to person through coughing, sneezing, or having close contact. Take your medicines, including antibiotics, as told by your doctor. Do not stop taking the antibiotic even if you start to feel better. To prevent the spread of germs, wash your hands well with soap and water. Have others do the same. Do not share food, drinking cups, or personal items. Get help right away if you have a bad headache, chest pain, shortness of breath, a stiff or painfulneck, or you vomit. This information is not intended to replace advice given to you by your health care provider. Make sure you discuss any questions you have with your health care provider. Document Released: 09/23/2008 Document Revised: 06/25/2019 Document Reviewed: 06/25/2019 [employer] Patient Education 2020 [employer]. 05/26/2022 10:06:56 BMI for Adults BMI for Adults Body mass index (BMI) is a number that is calculated from a person's weight and height. BMI may help to estimate how much of a person's weight is composed of fat. BMI can help identify those who may be at higher risk for certain medical problems. How is BMI used with adults? BMI is used as a screening tool to identify possible weight problems. It is used to check whether aperson is obese, overweight, healthy weight, or underweight. How is BMI calculated? BMI measures your weight and compares it to your height. This can be done either in [place] or metric measurements. Note that charts are available to help you find your BMI quickly and easily without having to do these calculations yourself. To calculate your BMI in [place] measurements, your health care provider will: 1.Measure your weight in pounds (lb). 2.Multiply the number of pounds by 703. For example, for a person who weighs 180 lb, multiply that number by 703, which equals 126,540. 3.Measure your height in inches (in). Then multiply that number by itself to get a measurement called inches squared. For example, for a person who is 70 in tall, the inches squared measurement is 70 in x 70 in, which equals 4900 inches squared. 4.Divide the total from Step 2 (number of lb x 703) by the total from Step 3 (inches squared): 126,540 4900 = 25.8. This is your BMI. To calculate your BMI in metric measurements, your health care provider will: 1.Measure your weight in kilograms (kg). 2.Measure your height in meters (m). Then multiply that number by itself to get a measurement called meters squared. For example, for a person who is 1.75 m tall, the meters squared measurement is 1.75 m x 1.75 m, which is equal to 3.1 meters squared. 3.Divide the number of kilograms (your weight) by the meters squared number. In this example: 70 3.1 = 22.6. This is your BMI. How is BMI interpreted? To interpret your results, your health care provider will use BMI charts to identify whether you are underweight, normal weight, overweight, or obese. The following guidelines will be used: Underweight: BMI less than 18.5. Normal weight: BMI between 18.5 and 24.9. Overweight: BMI between 25 and 29.9. Obese: BMI of 30 and above. Please note: Weight includes both fat and muscle, so someone with a muscular build, such as an athlete, may havea BMI that is higher than 24.9. In cases like these, BMI is not an accurate measure of body fat. To determine if excess body fat is the cause of a BMI of 25 or higher, further assessments may needto be done by a health care provider. BMI is usually interpreted in the same way for men and women. Why is BMI a useful tool? BMI is useful in two ways: Identifying a weight problem that may be related to a medical condition, or that may increase the risk for medical problems. Promoting lifestyle and diet changes in order to reach a healthy weight. Summary Body mass index (BMI) is a number that is calculated from a person's weight and height. BMI may help to estimate how much of a person's weight is composed of fat. BMI can help identify those who may be at higher risk for certain medical problems. BMI can be measured using [place] measurements or metric measurements. To interpret your results, your health care provider will use BMI charts to identify whether you are underweight, normal weight, overweight, or obese. This information is not intended to replace advice given to you by your health care provider. Make sure you discuss any questions you have with your health care provider. Document Released: 12/17/2004 Document Revised: 03/20/2018 Document Reviewed: 02/18/2018 [employer] Patient Education 2020 [employer] Follow Up Care 05/26/2022 09:09:50 With:CHELSEA KRAUS DO Address: [facility] [address] [place] [address]- When: Unknown [facility] 11-08-2022 History of Present illness Narrative* Rosas Mckinney MD - 02/26/2022 11:00 AM EST Orthopaedic Oncology New Patient Evaluation Chief Complaint: Bone lesion of right femur Referring Physician: Roni Dumas History of Present Illness: Jessee Almodovar is a 32 year old year old female who presents for evaluation of the above chief complaint. 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 She states she underwent a CT scan of her chest, abdomen, and pelvis that revealed an incidental finding of a lesion within the rightproximal femur, and presents today for evaluation. She reports baseline occasional hip pain that has been present since high school. She relates this to her prior basketball play in high school. States pain is located at outer aspect of hip over the IT band, and is burning in sensation, and is worsened by a long active day. Does states this pain improves with use of OTC tylenol. She denies any acute worsening in recent months, and denies associated radicular symptoms. States it does interfere with her day to day activities such as volleyball and lifting her 2 year old child. She does relate additional chronic low back pain which has been present for 9 years without any acute worsening. States present at lumbar spine and bilateral SI joints.Denies any recent trauma to this hip. States she has undergone PT, chiropractor, and ice without permanent relief. 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 Patient does endorse a remote history of bilateral lower leg stress fractures treated conservatively approximately 15 years ago. Review of Systems: Review of systems is positive for easy bruising and abdominal pain. Other complete ROS is questioned and negative. PAST MEDICAL HISTORY Diagnosis Date Anxiety Depression Hypertension Hypothyroidism No past surgical history on file. ALLERGIES No Known Allergies Current Outpatient Medications on File Prior to Visit Medication Sig BIOTIN ORAL Take by mouth. PNV no.95/ferrous fum/folic ac ( ORAL) Take by mouth. fluconazole (DIFLUCAN) 150 mg tablet 1 (one) tablet by mouth one time dose (Patient not taking: Reported on 02/11/2022) lisinopril (ZESTRIL, PRINIVIL) 20 mg tablet Take 1 tablet by mouth once daily. Take 20-30 minutes before eating or taking other medications (Patient not taking: Reported on 02/11/2022) omeprazole (PRILOSEC) 20 mg capsule Take 1 capsule by mouth once daily. 20-30 minutes before eatingor taking other medications omeprazole (PRILOSEC) 40 mg capsule Take 1 capsule by mouth once daily in the morning, wait 20-30 minutes before eating or taking other medications doxycycline hyclate (VIBRAMYCIN) 100 mg capsule Take 1 capsule by mouth twice daily. venlafaxine ER (EFFEXOR XR) 75 mg 24 hr capsule Take 1 capsule by mouth once a day venlafaxine ER (EFFEXOR XR) 37.5 mg 24 hr capsule Take 1 capsule by mouth once daily with food. atomoxetine (STRATTERA) 40 mg capsule Take 1 capsule by mouth once daily in the morning. lisinopril (ZESTRIL, PRINIVIL) 10 mg tablet Take 1 tablet by mouth once daily. hydrOXYzine HCl (ATARAX) 25 mg tablet Take 1 tablet by mouth three times daily as needed. (Patient not taking: Reported on 02/11/2022) escitalopram oxalate (LEXAPRO) 20 mg tablet Take 1 tablet by mouth once daily. levothyroxine (SYNTHROID) 175 mcg tablet Take 1 tablet by mouth once daily. lisinopril (ZESTRIL, PRINIVIL) 5 mg tablet Take 1 tablet by mouth once daily. mupirocin (BACTROBAN) 2 % ointment Apply to affected area three times a day escitalopram oxalate (LEXAPRO) 10 mg tablet Take 1 tablet by mouth once daily. citalopram (CELEXA) 20 mg tablet Take 1 tablet by mouth daily medroxyPROGESTERone (DEPO-PROVERA) 150 mg/mL Inject 1 (one) Milliliter every 12 weeks medroxyPROGESTERone (DEPO-PROVERA) 150 mg/mL injection Inject 1 mL intramuscularly every 11-12 weeks No current facility-administered medications on file prior to visit. FAMILY HISTORY Problem Relation Age of Onset Anxiety disorder Mother Dementia Maternal Grandmother Pancreatic Cancer Maternal Grandfather Social History Tobacco Use Smoking status: Former Types: Cigarettes Passive exposure: Past Smokeless tobacco: Never Substance Use Topics Alcohol use: Yes Drug use: Not Currently Physical Examination: LMP 02/04/2022 General: alert, oriented, no acute distress Skin: small bruising lateral aspect of left foot HEENT: normocephalic, extraocular movements intact, mucous membranes moist/intact Neck: no cervical lymphadenopathy Cardiovascular: pulse regular, no lower extremity edema Pulmonary: normal respiratory effort and chest wall excursion Abdomen: soft, non-tender, non-distended Hip Musculoskeletal Exam Gait Gait is normal. Inspection Right Erythema: none Ecchymosis: none Edema: none Deformity: none Previous incision: no previous incision Palpation Right Increased warmth: none Tenderness: none Range of Motion Right Right hip range of motion is within functional limits. Active extension: 20. Passive extension: 20. Active flexion: 120. Passive flexion: 120. Passive internal rotation: 30. Passive external rotation: 30. Passive adduction: 30. Passive abduction: 30. Strength Right Extension: 5/5. Flexion: 5/5. Internal rotation: 5/5. External rotation: 5/5. Adduction: 5/5. Abduction: 5/5. Neurovascular Right Right hip neurovascular exam is normal. TTP over the right greater trochanter. Results Reviewed: Laboratory evaluation: CBC, CMP essentially normal, Cr with mild elevation to 1.00. Decreased ferritin and increased TIBC. Radiographic evaluation: XR HIP 02/19/2022 1. Intramedullary bone lesion in the proximal right femur with nonaggressive radiographic characteristics. Differential diagnosis considerations include liposclerosing myxofibrous tumor. CT ABD/PELV 02/09/2022: No acute intraperitoneal abnormality Indeterminate lytic lesion with sclerotic rim in the right intertrochanteric femur. Plain film correlation recommended. Impression: No diagnosis found. Right hip liposclerosing myxofibrous tumor Plan: Discussed with patient that findings overall on right hip XR and CT demonstrate a benign picture. Discussed that the hip lesion likely represents a liposclerosing myxofibrous tumor. Discussed with patient this has likely been present for some time and at this juncture does not warrant additional testing such as MRI or biopsy. Given the overall benign presentation on imaging and exam, will plan for conservative observation with repeat XR in 6 months to assess for stability of lesion Discussed continued intervention for intermittent hip discomfort with tylenol, stretching, ice, PT. Will reevalute patient in 6 months with repeat XR at office followup. XR ordered. Jerome Avery DO (PGY-4) ATTENDING PHYSICIAN NOTE I have personally interviewed and examined the patient. I agree with the findings in the above note. This patient presents with an incidental finding of a right proximal femoral bone lesion. Radiographic characteristics of this are very indolent with no endosteal scalloping, no periosteal reaction or associated soft tissue mass and no perilesional lucencies. 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 Other benign etiologies are considered. Given that she does have some chronic pain associated in the area I recommend repeat plain radiographic surveillance in 6 months. Sooner if needed. All questions were answered and she is comfo rtable with this plan. These recommendations are being sent back to Roni Dumas via [employer] or Chart CC for [facility] Providers. Rosas Mckinney MD Slip Laster, Orthopaedic Surgery Division of Musculoskeletal Oncology documented in this encounterLouis [facility] Evaluation + Plan note Extracted from: Title:ED Note Author:Jose BALL, Mohan Diamond te:02/23/22 Sprain of left foot (S93.602 A: Unspecified sprain of left foot, initial encounter) Orders: Crutches Elastic Bandage Application XR Foot 3+ Views Left [facility]11-05-2022 Hospital Discharge instructions Patient Education 02/23/2022 11:07:01 Foot Sprain Foot Sprain A foot sprain is an injury to one of the strong bands of tissue (ligaments) that connect and support the bones in your feet. The ligament can be stretched too much and tear. A tear can be either partial or complete. The severity of the sprain depends on how much of the ligament was damaged or torn. What are the causes? This condition is usually caused by suddenly twisting or pivoting your foot. What increases the risk? This injury is more likely to occur in people who: Play a sport, such as basketball or football. Exercise or play a sport without warming up. Start a new workout or sport. Suddenly increase how long or hard they exercise or play a sport. Have previously injured their foot or ankle. What are the signs or symptoms? Symptoms of this condition start soon after an injury and include: Pain, especially in the arch of the foot. Bruising. Swelling. Inability to walk or use the foot to support body weight. How is this diagnosed? This condition is diagnosed with a medical history and physical exam. You may also have imaging tests, such as: X-rays to make sure there are no broken bones (fractures). An MRI to see if the ligament is torn. How is this treated? Treatment for this condition depends on the severity of the sprain. Mild sprains can be treated with: ?Rest, ice, compression, and elevation (RICE). ?Keeping your foot in a fixed position (immobilization) for a period of time. This is done if your ligament is overstretched or partially torn. Your health care provider will apply a bandage, splint,or walking boot to keep your foot from moving until it heals. ?Using crutches or a scooter for a few weeks to avoid putting weight on your foot while it is healing. Major sprains can be treated with: ?Surgery. This is done if your ligament is fully torn and a procedure is needed to reconnect it to the bone. ?A cast or splint. This will be needed after surgery. A cast or splint will need to stay on your foot while it heals. In both types of sprains, you may need to exercise or have physical therapy to strengthen your foot. Follow these instructions at home: If you have a bandage, splint, or boot: Wear the bandage, splint, or boot as told by your health care provider. Remove only as told by yourhealth care provider. Loosen the bandage, splint, or boot if your toes tingle, become numb, or turn cold and blue. Keep the bandage, splint, or boot clean and dry. If you have a cast: Do not stick anything inside the cast to scratch your skin. Doing that increases your risk for infection. Check the skin around the cast every day. Tell your health care provider about any concerns. You may put lotion on dry skin around the edges of the cast. Do not put lotion on the skin underneath the cast. Keep the cast clean and dry. Bathing Do not take baths, swim, or use a hot tub until your health care provider approves. Ask your healthcare provider if you may take showers. You may only be allowed to take sponge baths. If the bandage, splint, boot, or cast is not waterproof: ?Do not let it get wet. ?Cover it with a watertight covering when you take a shower. Managing pain, stiffness, and swelling If directed, put ice on the injured area: ?If you have a removable splint, boot, or immobilizer, remove it as told by your health care provider. ?Put ice in a plastic bag. ?Place a towel between your skin and the bag. ?Leave the ice on for 20 minutes, 2 3 times per day. Move your toes often to avoid stiffness and to lessen swelling. Raise (elevate) the injured area above the level of your heart while you are sitting or lying down. Driving Do not drive or operate heavy machinery while taking pain medicine. Ask your health care provider when it is safe to drive if you have a bandage, splint, or walking boot on your foot. Activity Do not use the injured foot to support your body weight until your health care provider says that you can. Use crutches or other supportive devices as directed by your health care provider. Ask your health care provider what activities are safe for you. Do any exercise or physical therapyas directed. Gradually increase how much and how far you walk until your health care provider says it is safe toreturn to full activity. General instructions If you have a cast, do not put pressure on any part of it until it is fully hardened. This may takeseveral hours. Take ezoh-fjr-ssndfjy and prescription medicines only as told by your health care provider. When you can walk without pain, wear supportive shoes that have stiff soles. Do not wear flip-flops, and do not walk barefoot. Keep all follow-up visits as told by your health care provider. This is important. Contact a health care provider if: Your pain is not controlled with medicine. Your bruising or swelling gets worse or does not get better with treatment. Your splint, boot, or cast is damaged. Get help right away if: You develop severe numbness or tingling in your foot. Your foot turns blue, white, or mitchell, and it feels cold. Summary A foot sprain is an injury to one of the strong bands of tissue (ligaments) that connect and support the bones in your feet. Your health care provider may recommend a splint or boot for your foot to support it while it heals. In some cases, surgery may be needed. Physical therapy can help keep your other muscles strong until your foot gets better. This information is not intended to replace advice given to you by your health care provider. Make sure you discuss any questions you have with your health care provider. Document Released: 09/27/2002 Document Revised: 04/11/2018 Document Reviewed: 04/11/2018 [employer] Patient Education 2020 [employer]. 02/23/2022 11:07:01 How to Use Cold Therapy, Tutc-ml-Fzwn How to Use Cold Therapy Cold therapy, or cryotherapy, is a treatment that uses cold temperatures to treat an injury or medical condition. It includes using cold packs or ice packs to reduce pain and swelling. Only use cold therapy if your doctor says it is okay. What are the risks? Generally, cold therapy is a safe treatment. However, it is not safe for: People who are not able to say they are in pain. These include small children and people who have memory problems. People who have certain conditions, such as: ?A problem in the vessels that slows blood flow to the fingers and toes (Raynaud's syndrome). ?Feeling very cold easily (cold hypersensitivity). ?Lack of feeling in the area being iced. Cold therapy may not be safe for people who have other conditions. Do not use it without talking toyour doctor if you have: A heart condition. High blood pressure. Open or healing wounds. An infection. Pain and swelling in your joints (rheumatoid arthritis). Poor blood flow in the body. Diabetes. Certain skin conditions. How can I make a cold pack? When using a cold pack at home to reduce pain and swelling, you can use: A silica gel cold pack that has been left in the freezer. You can buy this online or in stores. A sealable plastic bag that has been filled with crushed ice. A washcloth or paper towels soaked in cold (or ice) water. A plastic bag of frozen vegetables. Throw them away when you are finished using them as a cold pack. Supplies needed: A cold pack. A towel. This can be dry or damp, based on what you like. How to use cold therapy 1.Have your cold pack ready. 2.Place a towel between the cold pack and your skin. You may also wrap the cold pack in a towel. 3.Put the cold pack on the affected area. Keep it on for no more than 20 minutes at a time. 4.Check your skin after 5 minutes to make sure that there is no damage to the area. Check for: White spots on your skin. Your skin may look blotchy or mottled. Skin that looks blue or pale. Skin that feels waxy or hard. 5.Repeat these steps as many times each day as told by your doctor. Always use a towel to avoid direct contact with your skin. Contact a doctor if: You start to have white spots on your skin. This may give your skin a blotchy or mottled look. Your skin turns blue or pale. Your skin becomes waxy or hard. Your swelling gets worse. Summary Cold therapy, or cryotherapy, is used to treat an injury or other conditions. It includes using cold packs or ice packs to reduce pain and swelling. Cold therapy is not safe for people who are not able to say they are in pain. When using cold packs or ice packs, always place a towel between the cold source and your skin. Check your skin after 5 minutes of icing it. This is to make sure that there is no skin damage. Contact your doctor if you notice changes in your skin or your swelling gets worse. This information is not intended to replace advice given to you by your health care provider. Make sure you discuss any questions you have with your health care provider. Document Released: 09/23/2008 Document Revised: 01/04/2019 Document Reviewed: 01/04/2019 [employer] Patient Education 2020 [employer]. 02/23/2022 11:07:01 Elastic Bandage and RICE Therapy Elastic Bandage and RICE Therapy Elastic bandages come in different shapes and sizes. They generally provide support to your injury and reduce swelling while you are healing, but they can perform different functions. Your health care provider will help you to decide what is best for your protection, recovery, or rehabilitation after an injury. The routine care of many injuries includes rest, ice, compression, and elevation (RICE therapy). RICE therapy is often recommended for injuries to soft tissues, such as muscle strain, sprains, bruises, and overuse injuries. It can also be used for some bone injuries. Using RICE therapy can help to relieve pain and lessen swelling. What are some general tips for using an elastic bandage? Use the bandage as directed by the maker of the bandage that you are using. Do not wrap the bandage too tightly. This may block (cut off) the circulation in the arm or leg in the area below the bandage. ?If part of your body beyond the bandage becomes blue, numb, cold, swollen, or more painful, your bandage is probably too tight. If this occurs, remove your bandage and reapply it more loosely. Remove and reapply an elastic bandage every 3 4 hours or as told by your health care provider. See your health care provider if the bandage seems to be making your problems worse rather than better. How to care for your injury with RICE therapy Rest Rest your injury. This may help with the healing process. Rest usually involves limiting your normal activities and not using the injured part of your body. Generally, you can return to your normal activities when your health care provider says it is okay and you can do them without much discomfort. If you rest the injury too much, it may not heal as well. Some injuries heal better with early movement instead of resting for too long. Talk with your health care provider about how you should limityour activities and whether you should start jwblf-vs-rhzxfg exercises for your injury. Ice Ice your injury to lessen swelling and pain. Do not apply ice directly to your skin. Put ice in a plastic bag. Place a towel between your skin and the bag. Leave the ice on for 20 minutes, 2 3 times a day. Use ice on as many days as told by your health care provider. Compression Put pressure (compression) on your injured area to control swelling, give support, and help with discomfort. Compression may be done with an elastic bandage. Elevation Raise (elevate) your injured area to lessen swelling and pain. If possible, elevate your injured area at or above the level of your heart or the center of your chest. Contact a health care provider if: Your pain and swelling continue. Your symptoms are getting worse rather than improving. Having these problems may mean that you need further evaluation or imaging tests, such as X-rays radha MRI. Sometimes, X-rays may not show a small broken bone (fracture) until days after the injury happened. Make a follow-up appointment with your health care provider. Ask your health care provider,or the department that is doing the imaging test, when your results will be ready. Get help right away if: You have sudden severe pain at or below the area of your injury. You have redness or increased swelling around your injury. You have tingling or numbness at or below the area of your injury and it does not improve after youremove the elastic bandage. Summary Elastic bandages provide support to your injury and reduce swelling while you are healing. Your health care provider will help you decide which type of elastic bandage is best for your injury. Do not wrap the bandage too tightly. This may block (cut off) the circulation in the arm or leg in the area below the bandage. Putting pressure (compression) on your injured area with an elastic bandage is part of RICE therapy. RICE therapy includes rest, ice, compression, and elevation. This treatment is recommended for theroutine care of many injuries. This information is not intended to replace advice given to you by your health care provider. Make sure you discuss any questions you have with your health care provider. Document Released: 09/27/2002 Document Revised: 12/26/2017 Document Reviewed: 12/26/2017 [employer] Patient Education 2020 [employer]. Follow Up Care 02/23/2022 09:05:48 With:CHELSEA KRAUS Address: [employer] [address] [place] [address] Business (1) When:02/26/2022 10:46:43 Comments:Follow-up with your primary care provider in 3 to 5 days. If symptoms worsen, do not improve, or new symptoms arise please report back to emergency department for further evaluation. [facility]10-31-2022 History of Present illness Narrative* Kathrine Smith RT(R) - 02/18/2022 3:00 PM EDT Radiology Service Progress Note PATIENT NAME: Jessee Almodovar DATE OF SERVICE: February 18, 2022 TIME: 3:09 PM PATIENT IDENTITY VERIFICATION COMPLETED USING TWO (2) IDENTIFIERS: Name and Date of confirmedby patient verbally. FALL SCREENING: Has the patient had 2 falls in the last year or 1 fall with injury or currently using an Ambulatory Assistive Device (Walker, Cane, Wheelchair, Crutches, etc.)? No PATIENT GENDER DATA: Female. status: : No status: NO. PATIENT RELEVANT IMPLANT DATA REVIEWED: Not Applicable RADIOLOGY DEPARTMENT: General X-ray: Exam(s) Completed: Pelvis X-Ray: Pelvis with Hip Right PERIPHERAL IV DATA: Not applicable SIGNED BY: RT Francisco(R) February 18, 2022 3:09 PM documented in this encounterLouis [facility]07[facility] Nurse Note* Lillie Smith - 11/08/2021 11:25 AM EDT UA performed as ordered. Lillie Smith documented in this encounterLouis [facility]06-16-2022 History of Present illness Narrative* Macy Jones APRN.CNP - 10/04/2021 3:36 PM EDT Physical documented in this encounterLouis [facility]05-[facility]-2016 History general Narrative - Reported* Type Description Date Medical History Bernardo's thyroiditis Medical History Post- depression 2019 Surgical History D & C d/t miscarriage 08/2015 Surgical History LEEP 2012 Hospitalization History child [employer] Other Evaluation note* Diagnosis Acute bilateral low back pain with bilateral sciatica- Primary [facility]* Diagnosis Pelvic pain- Primary [facility]* Diagnosis Dysuria- Primary [facility]* Diagnosis Dysuria- Primary [facility]* Diagnosis Unspecified hypothyroidism- Primary [facility]* Diagnosis Lytic bone lesion of femur- Primary [facility]* Diagnosis Moderate episode of recurrent major depressive disorder (HCC)- Primary [facility]* Diagnosis Unspecified hypothyroidism- Primary Essential hypertension, malignant Lipids blood increased Other and unspecified hyperlipidemia Vegans' anemia Other vitamin B12 deficiency anemia [facility]* Diagnosis Lytic bone lesion of femur- Primary [facility]* Diagnosis Lytic bone lesion of femur- Primary Greater trochanteric bursitis of right hip Enthesopathy of hip region Chronic pain of right hip Chronic low back pain, unspecified back pain laterality, unspecified whether sciatica present Pain of right hip Bone lesion Disorder of bone and cartilage, unspecified [facility]* Diagnosis Attention deficit hyperactivity disorder (ADHD), predominantly 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 (CMS-HCC) Generalized anxiety disorder [facility] Diagnosis Irregular menses- Primary Irregular menstrual cycle [facility] Diagnosis Lytic bone lesion of femur [facility] Lytic bone lesion of femur [facility] Diagnosis Lytic bone lesion of femur [facility] Narrative No data available for this section [facility]* Attachments The following attachments cannot be sent through Care Everywhere. * Methylphenidate, ADULT ([place]) [facility] No data available for this section [facility] (narrative)* Diagnostic Procedure Only (Routine) - Pending Review Specialty Diagnoses / Procedures Referred By Contac t Referred To Contact XR IMAGING Diagnoses Lytic bone lesion of femur Procedures XR HIP GENERAL 3V PELV/AP/LAT RIGHT RADEX HIP UNILATERAL WITH PELVIS 2-3 VIEWS Rosas Mckinney MD [address] [place] [address] Xr Imaging Referral ID Status Reason Start Date Expiration Date Visits Requested Visits Authorized [id number] Pending Review Auto-Generat ed Referral 08/26/2022 03/28/2023 1 1 [facility] for referral (narrative)* Diagnostic Procedure Only (Routine) - Pending Review Specialty Diagnoses / Procedures Referred By Contac t Referred To Contact XR IMAGING Diagnoses Lytic bone lesion of femur Procedures XR HIP GENERAL 3V PELV/AP/LAT RIGHT RADEX HIP UNILATERAL WITH PELVIS 2-3 VIEWS Tiana Cronin PA-C [address] [place] [address] Xr Imaging [place] [address] Referral ID Status Reason Start Date Expiration Date Visits Requested Visits Authorized [id number] Pending Review Auto-Generat ed Referral 03/18/2024 1 1 [facility] for referral (narrative)* Diagnostic Procedure Only (Routine) - Closed Specialty Diagnoses / Procedures Referred By Contac t Referred To Contact XR IMAGING Diagnoses Lytic bone lesion of femur Procedures XR HIP GENERAL 3V PELV/AP/LAT RIGHT RADEX HIP UNILATERAL WITH PELVIS 2-3 VIEWS Abhyankar, Roni, MD [address] [place] [address] [place] [address] Referral ID Status Reason Start Date Expiration Date V isits Requested Visits Authorized [id number] Closed Auto-Generate d Referral 02/17/2023 03/18/2024 1 1 [facility] for referral (narrative)* Diagnostic Procedure Only (Routine) - Closed Specialty Diagnoses / Procedures Referred By Contac t Referred To Contact XR IMAGING Diagnoses Lytic bone lesion of femur Procedures XR HIP GENERAL 3V PELV/AP/LAT RIGHT RADEX HIP UNILATERAL WITH PELVIS 2-3 VIEWS Rosas Mckinney MD [address] [place] [address] [place] [address] Referral ID Status Reason Start Date Expiration Date V isits Requested Visits Authorized [id number] Closed Auto-Generate d Referral 08/26/2022 03/28/2023 1 1 [facility] for referral (narrative)* Diagnostic Procedure Only (Routine) - Closed Specialty Diagnoses / Procedures Referred By Contac t Referred To Contact XR IMAGING Diagnoses Lytic bone lesion of femur Procedures XR HIP GENERAL 3V PELV/AP/LAT RIGHT RADEX HIP UNILATERAL WITH PELVIS 2-3 VIEWS Roni Dumas MD [address] [place] [address] [place] [address] Referral ID Status Reason Start Date Expiration Date V isits Requested Visits Authorized [id number] Closed Auto-Generate d Referral 02/18/2022 03/20/2023 1 1 [facility] Reason for Referral Specialty Diagnoses / Procedures Referred By Contac t Referred To Contact [facility] Diagnoses Acute bilateral low back pain with bilateral sciatica Procedures CONSULT TO PHYSICAL THERAPY PHYSICAL THERAPY EVALUATION HIGH COMPLEX 45 MINS Macy Jones, VIDEOTAPE EDITOR.SHELL MOLDER [address] [place] [address] [place] [address] [facility] [address] [place] [address] Referral ID Status Reason Start Date Expiration Date Visits Requested Visits Authorized [id number] Pending Review Auto-Generat ed Referral 10/04/2021 10/04/2022 1 1 Specialty Diagnoses / Procedures Referred By Contac t Referred To Contact MR IMAGING Diagnoses Greater trochanteric bursitis of right hip Chronic pain of right hip Pain of right hip Bone lesion Procedures MRI HIP WO IVCON RIGHT MRI ANY JT LOWER EXTREM W/O CONTRAST Tiana Ji PA-C [address] [place] [address] [place] [address] Referral ID Status Reason Start Date Expiration Date Visits Requested Visits Authorized [id number] Authorized Auto-Generat ed Referral 02/25/2023 03/26/2024 1 1 Summary Purpose Family History No Family History Records FoundNo Family History Records FoundNo Family History Records FoundNo Family History Records FoundNo Family History Records FoundNo Family History Records FoundNo Family History Records Found Advance Directives No Advanced Directives Records FoundNo Advanced Directives Records FoundNo Advanced Directives Records FoundNo Advanced Directives Records FoundNo Advanced Directives Records FoundNo Advanced Directives Records FoundNo Advanced Directives Records Found Medications Administered Section Inactive Administered Medications - up to 3 most recent administrations Medication Order MAR Action Action Date Dose Rate Site lidocaine (PF) 10 mg/mL (1 %) 4 mL injection (XYLOCAINE) 4 mL, Injection - FOR ORTHO USE ONLY, ONCE, 1 dose, Starting on Fri02/25/23 at 1400, Until Fri02/25/23 at 1400 Given 02/25/2023 2:00 PM EST 4 mL Hip, Right ROPivacaine (PF) 5 mg/mL (0.5 %) 4 mL injection (NAROPIN) 4 mL, Injection - FOR ORTHO USE ONLY, ONCE, 1 dose, Starting on Fri02/25/23 at 1400, Until Fri02/25/23 at 1400 Given 02/25/2023 2:00 PM EST 4 mL Hip, Right triamcinolone acetonide 80 mg injection (KeNALog 40) 80 mg, Injection - FOR ORTHO USE ONLY, ONCE, 1 dose, Starting on Fri02/25/23 at 1400, Until Fri02/25/23 at 1400 Given 02/25/2023 2:00 PM EST 80 mg Hip, Right Additional Source Comments Source Comments (unrecognize d section and content) In the event this informatio n is protected by the Federal Confidentiality of Alcohol and Drug Abuse Patient Records regulations: The Federal rules restrict any use of the information to criminally investigate or prosecute any alcohol or drug abuse patient.[facility] the event this information is protected by the Federal Confidentiality of Alcohol and Drug Abuse Patient Records regulations: The Federal rules restrict any use of the information to criminally investigate or prosecute any alcohol or drug abuse patient.[facility] the event this information is protected by the Federal Confidentiality of Alcohol and Drug Abuse Patient Records regulations: The Federal rules restrict any use of the information to criminally investigate or prosecute any alcohol or drug abuse patient.[facility] the event this information is protected by the Federal Confidentiality of Alcohol and Drug Abuse Patient Records regulations: The Federal rules restrict any use of the information to criminally investigate or prosecute any alcohol or drug abuse patient.[facility] the event this information is protected by the Federal Confidentiality of Alcohol and Drug Abuse Patient Records regulations: The Federal rules restrict any use of the information to criminally investigate or prosecute any alcohol or drug abuse patient.[facility] the event this information is protected by the Federal Confidentiality of Alcohol and Drug Abuse Patient Records regulations: The Federal rules restrict any use of the information to criminally investigate or prosecute any alcohol or drug abuse patient.[facility] the event this information is protected by the Federal Confidentiality of Alcohol and Drug Abuse Patient Records regulations: The Federal rules restrict any use of the information to criminally investigate or prosecute any alcohol or drug abuse patient.[facility] the event this information is protected by the Federal Confidentiality of Alcohol and Drug Abuse Patient Records regulations: The Federal rules restrict any use of the information to criminally investigate or prosecute any alcohol or drug abuse patient.[facility] the event this information is protected by the Federal Confidentiality of Alcohol and Drug Abuse Patient Records regulations: The Federal rules restrict any use of the information to criminally investigate or prosecute any alcohol or drug abuse patient.[facility] the event this information is protected by the Federal Confidentiality of Alcohol and Drug Abuse Patient Records regulations: The Federal rules restrict any use of the information to criminally investigate or prosecute any alcohol or drug abuse patient.[facility] Center[facility] the event this information is protected by the Federal Confidentiality of Alcohol and Drug Abuse Patient Records regulations: The Federal rules restrict any use of the information to criminally investigate or prosecute any alcohol or drug abuse patient.[facility] Center[facility] the event this information is protected by the Federal Confidentiality of Alcohol and Drug Abuse Patient Records regulations: The Federal rules restrict any use of the information to criminally investigate or prosecute any alcohol or drug abuse patient.[facility] CenterIn the event this information is protected by the Federal Confidentiality of Alcohol and Drug Abuse Patient Records regulations: The Federal rules restrict any use of the information to criminally investigate or prosecute any alcohol or drug abuse patient.[facility] Patient Care team informatio n (unrecognized section and content) Biology Instructor Relationship Specialty Start Date End Date Anupama Brown DO [address] [place] [address] PCP - General Family Medicine 07/25/22 Emile Mesa MD [address] [address] Gastroenterology 07/25/22 Guillaume Vasquez, DO [address] [place] [address] [place] [address] DUCT LAYER SUPERVISOR 07/25/22 Biology Instructor Relationship Specialty Start Date End Date Anupama Brown DO [address] [place] [address] PCP - General Family Medicine 07/25/22 Emile Mesa MD [address] [place] [address] Gastroenterology 07/25/22 Guillaume Vasquez DO [address] [place] [address] DUCT LAYER SUPERVISOR 07/25/22 Biology Instructor Relationship Specialty Start Date End Date Anupama Brown DO [address] [place] [place] [address] PCP - General Family Medicine 07/25/22 Emile Mesa MD [address] [address] Gastroenterology 07/25/22 Guillaume Vasquez DO [address] [place] [address] DUCT LAYER SUPERVISOR 07/25/22 Biology Instructor Relationship Specialty Start Date End Date Anupama Brown DO [address] [place] [address] PCP - General Family Medicine 07/25/22 Emile Mesa MD [address] [place] [address] Gastroenterology 07/25/22 Guillaume Vasquez DO [address] [place] [address] DUCT LAYER SUPERVISOR 07/25/22 Biology Instructor Relationship Specialty Start Date End Date Chelsea Kraus DO [address] [facility] [address] [place] [address] PCP - General Family Medicine 07/02/19 Biology Instructor Relationship Specialty Start Date End Date Anupama Brown MD [address] [place] [id number] PCP - General Family Medicine 03/04/23 Biology Instructor Relationship Specialty Start Date End Date Anupama Brown MD [address] [place] [phone] PCP - General Family Medicine 03/04/23 Biology Instructor Relationship Specialty Start Date End Date Anupama Brown DO [address] [place] [address] PCP - General Family Medicine 07/25/22 Emile Mesa MD [address] [place] [address] Gastroenterology 07/25/22 Guillaume Vasquez DO [address] [place] [address] [place] [address] Gas Utility Worker 07/25/22 Biology Instructor Relationship Specialty Start Date End Date Anupama Brown DO [address] [place] [address] PCP - General Family Medicine 07/25/22 Emile Mesa MD [address] [place] [address] Gastroenterology 07/25/22 Guillaume Vasquez DO [address] [place] [address] [place] [address] Gas Utility Worker 07/25/22 Reason for Visit (unrecogniz ed section and content) Reason Comments New Pain Tumor/Mass Specialty Diagnoses / Procedures Referred By Contac t Referred To Contact Orthopedics Diagnoses Lytic bone lesion of femur Procedures CONSULT TO ORTHOPAEDICS OFFICE/OUTPATIENT NEW HIGH MDM 60-74 MINUTES Roni Dumas MD [address] [place] [address] [place] [address] Referral ID Status Reason Start Date Expiration Date V isits Requested Visits Authorized [id number] Closed PCP Requested Referral 02/18/2022 02/18/2023 1 1 Reason Comments New Pain Reason Comments Radio Gen RMP Specialty Diagnoses / Procedures Referred By Contac t Referred To Contact XR IMAGING Diagnoses Lytic bone lesion of femur Procedures XR HIP GENERAL 3V PELV/AP/LAT RIGHT RADEX HIP UNILATERAL WITH PELVIS 2-3 VIEWS Roni Dumas MD [address] [facility] [place] [address] [place] [address] Referral ID Status Reason Start Date Expiration Date V isits Requested Visits Authorized [id number] Closed Auto-Generate d Referral 02/17/2023 03/18/2024 1 1 Specialty Diagnoses / Procedures Referred By Contac t Referred To Contact XR IMAGING Diagnoses Lytic bone lesion of femur Procedures XR HIP GENERAL 3V PELV/AP/LAT RIGHT RADEX HIP UNILATERAL WITH PELVIS 2-3 VIEWS Rosas Mckinney MD [address] [place] [address] [place] [address] Referral ID Status Reason Start Date Expiration Date V isits Requested Visits Authorized [id number] Closed Auto-Generate d Referral 08/26/2022 03/28/2023 1 1 Referral ID Status Reason Start Date Expiration Date V isits Requested Visits Authorized [id number] Closed Auto-Generate d Referral 02/18/2022 03/20/2023 1 1 INFORMATION SOURCE (unrecogn ized section and content) DATE CREATED AUTHOR 05/08/2022 [facility] DATE CREATED AUTHOR AUTHOR'S ORGANIZ ATION 05/26/2022 [facility] DATE CREATED AUTHOR AUTHOR'S ORGANIZ ATION 05/04/2023 [facility] DATE CREATED AUTHOR AUTHOR'S ORGANIZ ATION 06/06/2023 [facility] DATE CREATED AUTHOR AUTHOR'S ORGANIZ ATION 10/17/2023 [facility] DATE CREATED AUTHOR AUTHOR'S ORGANIZ ATION 01/06/2024 [facility] DATE CREATED AUTHOR AUTHOR'S ORGANIZ ATION 01/15/2024 [facility] FOR RECORDS PERTAINING TO PATIENTS WHO ARE OR HAVE BEEN ENROLLED IN A CHEMICAL DEPENDENCY/SUBSTANCEABUSE PROGRAM, SOME INFORMATION MAY BE OMITTED. This clinical summary was aggregated from multiple sources. Caution should be exercised in using it in the provision of clinical care. This summary normalizes information from multiple sources, and as a consequence, information in this document may materially change the coding, format and clinical context of patient data. In addition, data may be omitted in some cases. CLINICAL DECISIONS SHOULD BE BASED ON THE PRIMARY CLINICAL RECORDS. [facility] [employer] [facility]. provides no warranty or guarantee of the accuracy or completeness of information in this document.
--- NOTE | 2024-01-17 13:03 | US_ITS ---
[address] [address] Patient Name: JESSEE JEFFERS MRN: [id number] date: 1990 Sex: F Assigned Patient Location: US Current Patient Location: US Accession/Order Number: [id number] Exam Date: 01/17/2024 13:30 Report Date: 01/18/2024 06:52 At the request of: TEE RUBIN Procedure: US OB BPP w non-stress EXAMINATION: US OB BPP w non-stress HISTORY:Thyroid disease COMPARISON: Ultrasound OB growth 12/20/2023 TECHNIQUE: Ultrasound biophysical profile was performed in the radiology department. BREATHING MOVEMENTS: 2 GROSS BODY MOVEMENTS: 2 TONE: 2 QUALITATIVE AMNIOTIC FLUID VOLUME: 2 PRESENTATION: CEPHALIC HEART RATE: 137.06 bpm AMNIOTIC FLUID VOLUME: 18.16 cm GESTATIONAL AGE: 32 weeks 2 days US/US OB BPP w non-stress IMPRESSION: Total biophysical profile score: 8 Electronically authenticated by: JENNIFER HARTLEY Date: 01/18/2024 06:52
--- NOTE | 2024-01-17 13:03 | US_ITS ---
[address] [address] Patient Name: JESSEE JEFFERS MRN: [id number] date: 1990 Sex: F Assigned Patient Location: US Current Patient Location: Accession/Order Number: [id number] Exam Date: 01/17/2024 13:30 Report Date: 01/18/2024 06:55 At the request of: TEE RUBIN Procedure: US OB growth EXAMINATION: US OB growth HISTORY: Excessive growth COMPARISON: Ultrasound OB growth 12/20/2023 FINDINGS: Heart Rate: 137.06 bpm Amniotic Fluid Volume: 18.2 cm; normal range. Number: 1 Position: CEPHALIC BIOMETRY: BPD: 8.63 cm; 34 weeks 6 days; 96.20 % HC: 32.40 cm; 36 weeks 5 days; >97 % AC: 29.87 cm; 33 weeks 6 days; 88.20 % FL: 6.57 cm; 33 weeks 6 days; 78.20 % EFW: 2377.31 g; 92.40 % FL/AC: 21.99 FL/BPD: 76.05 HC/AC: 1.08 GESTATIONAL AGE: Age by EDC: 32 weeks 2 days MEHUL by EDC: 2024-03-11 Age by US: 34 weeks 6 days MEHUL by US: 2024-02-22 US/US OB growth IMPRESSION: 1. Single live intrauterine with growth detailed above. 2. Head circumference is greater than 97th percentile. Electronically authenticated by: JENNIFER HARTLEY Date: 01/18/2024 06:55
[2024-01-17 13:04] VITALS: BP 131/63; PULSE 83
== END 2024-01-17 13:50 | disposition home or self-care (01) ==
LOC: US 07:02 → FBC 12:57
PROVIDERS: Visit Provider Obstetrics & Gynecology
DX: O36.63X0 Maternal care for excessive fetal growth, third trimester, not applicable or unspecified (principal); Z3A.34 34 weeks gestation of pregnancy
CPT/HCPCS: 76816; 76818

== ENCOUNTER 2024-01-21 07:00 | Outpatient (OUT) | payer OTHER, SELFPAY ==
--- OUTSIDE RECORDS SUMMARY | 2024-01-21 07:03 | XMS_ITS | CCD ---
Author Organization [facility] Care Team Providers Care Painter Touch Up Name Role Phone Unavailable Primary Care Provider UnavailCHELSEA Murrieta Primary Care Physician [phone] Janice De La Rosa Unavailable Unavailable Unavailable [...] Unavailable PEDRO, DR OLIVEIRA Primary Care Unavailable KINGSTREE, DR EMELIA Luna Consulting Unavailable PEDRO, DR OLIVEIRA Consulting Unavailable Chayo Anne Attending Unavailable Roxanne MOSLEY Attending Unavailable Asakatlyn, Imad Unavailable Anupama Brown DO Primary Care Provider Emile Mesa MD Unavailable Guillaume Vasquez DO Unavailable Anupama Brown DO Primary Care Provider Emile Mesa MD Unavailable Chelsea Kraus DO Primary Care Provider [phone] ASIF SCHAEFER Attending Unavailable CHELSEA KRAUS Referring Unavailable CHELSEA KRAUS Primary Care Unavailable Anupama Brown MD Primary Care Provider [phone] ASIF SCHAEFER Attending Unavailable EFRA, CHELSEA Quezada Referring Unavailable EFRA, CHELSEA A Primary Care Unavailable EFRA, CHELSEA A Referring Unavailable EFRA, CHELSEA A Primary Care Unavailable HECTOR MANCERA Attending Unavailable EFRA, CHELSEA A Referring Unavailable EFRA, CHELSEA A Primary Care Unavailable Kevin OVERTON Anupama Danielle Primary Care Provider Moshe PALOMINO, Imad Unavailable Pedro DO, Guillaume R Unavailable PEDRO, GUILLAUME Attending Unavailable PEDRO, GUILLAUME Attending Unavailable PEDRO, GUILLAUME Attending Unavailable KIN, ELISEO Attending Unavailable PEDRO, GUILLAUME Attending Unavailable KIN, ELISEO Attending Unavailable PEDRO, GUILLAUME Attending Unavailable PEDRO, GUILLAUME Attending Unavailable PEDRO, GUILLAUME Attending Unavailable Unavailable Primary Care Provider Unavailabl e PEDRO, GUILLAUME R Referring Unavailable [facility] Unavailabl e KEVIN, [facility] Primary Care Unavailabl e ELISEO SANDERSON Referring Unavailable PEDRO, GUILLAUME R Referring Unavailable [facility] Unavailabl e PEDRO, GUILLAUME R Referring Unavailable KEVIN, [facility] Primary Care Unavailabl e KEVIN, [facility] Primary Care Unavailabl e ASIF SCHAEFER Referring Unavailable [facility] Primary Care Unavailabl e KEVIN, [facility] Primary Care Unavailabl e KEVIN, [facility] Primary Care Unavailabl e ROSAS MCKINNEY Attending Unavailable ABHYANKAR, RONI Referring Unavailable KEVIN, [facility] Primary Care Unavailabl e ABHYANKAR, RONI Referring Unavailable KEVIN, [facility] Primary Care Unavailabl e KEVIN, [facility] Primary Care Unavailabl e Medications Current Medications Medication Drug Class(es) Dates Sig (Normalized) Sig (Original) amoxicillin 500 mg oral capsule (1 source) Penicillin-class Antibacterial Start: 05-26-2022 End: 06-05-2022 take 1 capsule by mouth every twelve hours amoxicillin 500 mg Cap 500 mg = 1 cap(s), Oral, q12hr, X 10 day(s), # 20 cap(s), Refills(s) 0, Pharmacy: [facility], 172, cm, 05/26/22 9:34:00 EST, [...] Start: 09-11-2021 take [address] [facility] once daily in the morning omeprazole (PRILOSEC) 40 mg capsule Take 1 capsule by mouth once daily in the morning, wait 20-30 minutes before eating or taking other medications 90 capsule 1 12/31/2021 Active Comment on above: Take 1 capsule by [facility] once daily. Wait 20-30 minutes before eating or taking other medications. Take [address] [facility] once daily in the morning, wait 20-30 minutes before eating or taking other medications Take [address] [facility] once daily. 20-30 minutes before eating or [...] therapy) Start: 02-11-2023 take 1 capsule by [facility] once daily in the morning amphetamine-dextroamphetamine XR [...] by mo ut once daily in the morning. bifidobacterium infantis 4 mg oral capsule (7 sources) Start: End: take 1 capsule by mouth once daily Bifidobacterium Infantis (ALIGN) 4 mg cap Take 1 capsule by mouth once daily. 30 capsule 3 07/10/2022 02/25/2023 Discontinued Comment on above: Take 1 capsule by mo ut once daily. citalopram 20 mg oral tablet [...] Comment on above: Take 1 capsule by [facility] twice daily. escitalopram 20 mg oral tablet [...] Comment on above: Take 1 tablet by [facility] once daily. fluconazole 150 mg oral tablet (8 sources) Azole Antifungal Start: 02-07-20 End: 02-26-20 take 1 tablet by mouth once fluconazole (DIFLUCAN) 150 mg tablet 1 (one) tablet by mouth one time dose 1 tablet 1 02/06/2022 02/25/2023 Discontinued Comment on above: 1 (one) tablet by [facility] one time dose hydrOXYzine hydrochloride 50 mg [...] Comment on above: Take 1 tablet by [facility] three times daily as needed. 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 Conditions associated with dizziness or vertigo (1 source) Dizziness and giddiness; Translations: [Dizziness] Onset: 01-19-2024 Episodic Deficiency and other anemia (1 source) Vegan's [...] Name Value Interpretation Reference Range Facil ity CBC W Auto Differential pane l (Bld)on 01-19-2024 Basophils (Bld) [#/Vol] 10*3/uL Normal <0.11 [facility] Comment on above: Order Comment: Speci men Type: BLOOD SPECIMEN Ordering Facility: External Submitter Address: , , Performed By: #### 5 5454-3 #### [facility] CLIA [id number] [address] [place] [address] [place] Basophils/100 WBC (Bld) 0.2 % Normal [facility] Comment on above: Order Comment: Speci men Type: BLOOD SPECIMEN Ordering Facility: External Submitter Address: , , Performed By: #### 5 5454-3 #### [facility] CLIA [id number] [address] [place] [address] [place] Differential cell count method Nom (Bld) Auto Normal [facility] Comment on above: Order Comment: Speci men Type: BLOOD SPECIMEN Ordering Facility: External Submitter Address: , , Performed By: #### 5 5454-3 #### [facility] CLIA [id number] [address] [place] [address] [place] Eosinophils (Bld) [#/Vol] 0.06 10*3/uL Normal <0.46 [facility] Comment on above: Order Comment: Speci men Type: BLOOD SPECIMEN Ordering Facility: External Submitter Address: , , Performed By: #### 5 5454-3 #### [facility] CLIA [id number] [address] [place] [address] [place] Eosinophils/100 WBC (Bld) 0.6 % Normal [facility] Comment on above: Order Comment: Speci men Type: BLOOD SPECIMEN Ordering Facility: External Submitter Address: , , Performed By: #### 5 5454-3 #### [facility] CLIA [id number] [address] [place] [address] [place] Erythrocyte distribution width (RBC) [Ratio] 13.3 % Normal 11.5-15.0 [facility] Comment on above: Order Comment: Speci men Type: BLOOD SPECIMEN Ordering Facility: External Submitter Address: , , Performed By: #### 5 5454-3 #### [facility] CLIA [id number] [address] [place] [address] [place] Hematocrit (Bld) [Volume fraction] 32.8 % Low 36.0-46.0 [facility] Comment on above: Order Comment: Speci men Type: BLOOD SPECIMEN Ordering Facility: External Submitter Address: , , Performed By: #### 5 5454-3 #### [facility] CLIA [id number] [address] [place] [address] [place] Hemoglobin (Bld) [Mass/Vol] 10.7 g/dL Low 11.5-15.5 [facility] Comment on above: Order Comment: Speci men Type: BLOOD SPECIMEN Ordering Facility: External Submitter Address: , , Performed By: #### 5 5454-3 #### [facility] CLIA [id number] [address] [place] [address] [place] Immature granulocytes (Bld) [#/Vol] 0.05 10*3/uL Normal <0.10 [facility] Comment on above: Order Comment: Speci men Type: BLOOD SPECIMEN Ordering Facility: External Submitter Address: , , Performed By: #### 5 5454-3 #### [facility] CLIA [id number] [address] [place] [address] [place] Immature granulocytes/100 WBC (Bld) 0.5 % Normal [facility] Comment on above: Order Comment: Speci men Type: BLOOD SPECIMEN Ordering Facility: External Submitter Address: , , Performed By: #### 5 5454-3 #### [facility] CLIA [id number] [address] [place] [address] [place] Lymphocytes (Bld) [#/Vol] 1.55 10*3/uL Normal 1.00-4.00 [facility] Comment on above: Order Comment: Speci men Type: BLOOD SPECIMEN Ordering Facility: External Submitter Address: , , Performed By: #### 5 5454-3 #### [facility] CLIA [id number] [address] [place] [address] [place] Lymphocytes/100 WBC (Bld) 15.1 % Normal [facility] Comment on above: Order Comment: Speci men Type: BLOOD SPECIMEN Ordering Facility: External Submitter Address: , , Performed By: #### 5 5454-3 #### [facility] CLIA [id number] [address] [place] [address] [place] MCH (RBC) [Entitic mass] 27.8 pg Normal 26.0-34.0 [facility] Comment on above: Order Comment: Speci men Type: BLOOD SPECIMEN Ordering Facility: External Submitter Address: , , Performed By: #### 5 5454-3 #### [facility] CLIA [id number] [address] [place] [address] [place] MCHC (RBC) [Mass/Vol] 32.6 g/dL Normal 30.5-36.0 [facility] Comment on above: Order Comment: Speci men Type: BLOOD SPECIMEN Ordering Facility: External Submitter Address: , , Performed By: #### 5 5454-3 #### [facility] CLIA [id number] [address] [place] [address] [place] MCV (RBC) [Entitic vol] 85.2 fL Normal 80.0-100.0 [facility] Comment on above: Order Comment: Speci men Type: BLOOD SPECIMEN Ordering Facility: External Submitter Address: , , Performed By: #### 5 5454-3 #### [facility] CLIA [id number] [address] [place] [address] [place] Monocytes (Bld) [#/Vol] 0.77 10*3/uL Normal <0.87 [facility] Comment on above: Order Comment: Speci men Type: BLOOD SPECIMEN Ordering Facility: External Submitter Address: , , Performed By: #### 5 5454-3 #### [facility] CLIA [id number] [address] [place] [address] [place] Monocytes/100 WBC (Bld) 7.5 % Normal [facility] Comment on above: Order Comment: Speci men Type: BLOOD SPECIMEN Ordering Facility: External Submitter Address: , , Performed By: #### 5 5454-3 #### [facility] CLIA [id number] [address] [place] [address] [place] Neutrophils (Bld) [#/Vol] 7.81 10*3/uL High 1.45-7.50 [facility] Comment on above: Order Comment: Speci men Type: BLOOD SPECIMEN Ordering Facility: External Submitter Address: , , Performed By: #### 5 5454-3 #### [facility] CLIA [id number] [address] [place] [address] [place] Neutrophils/100 WBC (Bld) 76.1 % Normal [facility] Comment on above: Order Comment: Speci men Type: BLOOD SPECIMEN Ordering Facility: External Submitter Address: , , Performed By: #### 5 5454-3 #### [facility] CLIA [id number] [address] [place] [address] [place] Nucleated RBC (Bld) [#/Vol] 10*3/uL Normal <0.01 [facility] Comment on above: Order Comment: Speci men Type: BLOOD SPECIMEN Ordering Facility: External Submitter Address: , , Performed By: #### 5 5454-3 #### [facility] CLIA [id number] [address] [place] [address] [place] Nucleated RBC/100 WBC (Bld) [Ratio] 0.0 /100 WBC Normal [facility] Comment on above: Order Comment: Speci men Type: BLOOD SPECIMEN Ordering Facility: External Submitter Address: , , Performed By: #### 5 5454-3 #### [facility] CLIA [id number] [address] [place] [address] [place] Platelet mean volume (Bld) [Entitic vol] 11.3 fL Normal 9.0-12.7 [facility] Comment on above: Order Comment: Speci men Type: BLOOD SPECIMEN Ordering Facility: External Submitter Address: , , Performed By: #### 5 5454-3 #### [facility] CLIA [id number] [address] [place] [address] [place] Platelets (Bld) [#/Vol] 172 10*3/uL Normal 150-400 [facility] Comment on above: Order Comment: Speci men Type: BLOOD SPECIMEN Ordering Facility: External Submitter Address: , , Performed By: #### 5 5454-3 #### [facility] CLIA [id number] [address] [place] [address] [place] RBC (Bld) [#/Vol] 3.85 10*6/uL Low 3.90-5.[address] [facility] Comment on above: Order Comment: Speci men Type: BLOOD SPECIMEN Ordering Facility: External Submitter Address: , , Performed By: #### 5 5454-3 #### [facility] CLIA [id number] [address] [place] [address] [place] WBC (Bld) [#/Vol] 10.26 10*3/uL Normal 3.70-11.00 [facility] Comment on above: Order Comment: Speci men Type: BLOOD SPECIMEN Ordering Facility: External Submitter Address: , , Performed By: #### 5 5454-3 #### [facility] CLIA [id number] [address] [place] [address] [place] T4 Free SerPl-mCncon 024 Free T4 [Mass/Vol] 0.9 ng/dL Normal 0.9-1.7 [facility] Comment on above: Order Comment: Speci men Type: BLOOD SPECIMEN Ordering Facility: [facility] [place]ina Address: [facility] [address] [place] [address] Performed By: #### 3 024-7, 3016-3 #### [facility] CLIA [id number] [address] [place] [id number] [place] TSH SerPl-aCncon 01-05-2024 TSH Qn 1.220 m[IU]/L Normal 0.270-4.200 [facility] Comment on above: Order Comment: Speci [...] Nassar, et al. 2017 Guidelines of the [place] [employer] for the Diagnosis and Management of Thyroid Disease during and the . Thyroid, 2017:27:3:315-389. Performed By: #### 5 5454-3 #### [facility] CLIA [id number] [address] [place], [place] [address] [place] T4 Free SerPl-mCncon 024 Free T4 [Mass/Vol] 1.1 ng/dL Normal 0.9-1.7 [facility] Comment on above: Order Comment: Speci men Type: BLOOD SPECIMEN Ordering Facility: [facility] OB-DENTAL PRACTITIONER [place] Address: [facility] [place] [address] [place] [address] Performed By: #### 3 024-7, 3016-3 #### [facility] CLIA [id number] [address] [place], [place] [address] [place] TSH SerPl-aCncon 12-08-2023 TSH Qn 0.607 m[IU]/L Normal 0.270-4.200 [facility] Comment on above: Order Comment: Speci men Type: BLOOD SPECIMEN Ordering Facility: [facility] OB-DENTAL PRACTITION[facility] [place] Address: [address] [place] [address] Result Comment: If t he patient is , TSH reference range varies by gestational period: First Trimester (weeks 9-12): 0.180-2.990 mIU/L Second Trimester: 0.110-3.980 mIU/L Third Trimester: 0.480-4.710 mIU/L Manuel Grayson et al. A Practical Approach for the Verifications and Determination of Site- and Trimester-Specific Reference Intervals for Thyroid Function tests in . Thyroid, 2019:29:3:412-420. Emanuel Nassar, et al. 2017 Guidelines of the [place] Thy[employer] Association for the Diagnosis and Management of Thyroid Disease during and the . Thyroid, 2017:27:3:315-389. Performed By: #### 3 024-7, 3016-3 #### [facility] CLIA [id number] [address] [place] [address] [place] CBC W Auto Differential pane l (Bld)on 11-20-2023 Basophils (Bld) [#/Vol] 0.04 10*3/uL Normal <0.11 [facility] Comment on above: Order Comment: Speci men Type: BLOOD SPECIMEN Ordering Facility: [facility] OB[facility]DENTAL PRACT[facility] [place] Address: [address] [place] [address] Performed By: #### 5 7021-8 #### [facility] CLIA [id number] [address] [place] [address] Basophils/100 WBC (Bld) 0.6 % Normal [facility] Comment on above: Order Comment: Speci men Type: BLOOD SPECIMEN Ordering Facility: [facility] OB-DENTAL PRACT[facility] [place] Address: [address] [place] [address] Performed By: #### 5 7021-8 #### [facility] CLIA [id number] [address] [place] [address]266 Differential cell count method Nom (Bld) Auto Normal [facility] Comment on above: Order Comment: Speci men Type: BLOOD SPECIMEN Ordering Facility: [facility] OB-DENTAL PRACTITIONER [place] Address: [address] [place] [id number] Performed By: #### 5 7021-8 #### [facility] CLIA [id number] [address] [place] [address] Eosinophils (Bld) [#/Vol] 0.05 10*3/uL Normal <0.46 [facility] Comment on above: Order Comment: Speci men Type: BLOOD SPECIMEN Ordering Facility: [facility] OB-DENTAL PRACTITION[facility] [place] Address: [facility] [place] [address] Performed By: #### 5 7021-8 #### [facility] CLIA [id number] [address] [place] [address]46 Eosinophils/100 WBC (Bld) 0.7 % Normal [facility] Comment on above: Order Comment: Speci men Type: BLOOD SPECIMEN Ordering Facility: [facility] OB-DENTAL PRACTITION[facility] [place] Address: [facility] [place] [address] Performed By: #### 5 7021-8 #### [facility] CLIA [id number] [address] [place] [address] 11838 Erythrocyte distribution width (RBC) [Ratio] 12.9 % Normal 11.5-15.0 [facility] Comment on above: Order Comment: Speci men Type: BLOOD SPECIMEN Ordering Facility: [facility] Address: [facility] [address] [place] [id number] Performed By: #### 5 7021-8 #### [facility] CLIA [id number] [address] [place] [address]28 Hematocrit (Bld) [Volume fraction] 35.0 % Low 36.0-46.0 [facility] Comment on above: Order Comment: Speci men Type: BLOOD SPECIMEN Ordering Facility: [facility] OBDENTAL PRACTITIONER [place] Address: [facility] [address] [place] [id number] Performed By: #### 5 7021-8 #### [facility] CLIA [id number] [address] [place] [address]6844 Hemoglobin (Bld) [Mass/Vol] 11.4 g/dL Low 11.5-15.5 [facility] Comment on above: Order Comment: Speci men Type: BLOOD SPECIMEN Ordering Facility: [facility] OB-DENTAL PRACTITIONER [place] Address: [address] [place] [address] Performed By: #### 5 7021-8 #### [facility] CLIA [id number] [address] [place] [address]758 Immature granulocytes (Bld) [#/Vol] 10*3/uL Normal <0.10 [facility] Comment on above: Order Comment: Speci men Type: BLOOD SPECIMEN Ordering Facility: [facility] OB-DENTAL PRACTITION[facility] [place] Address: [address] [place] [address] Performed By: #### 5 7021-8 #### [facility] CLIA [id number] [address] [place] [address] 22957 Immature granulocytes/100 WBC (Bld) 0.3 % Normal [facility] Comment on above: Order Comment: Speci men Type: BLOOD SPECIMEN Ordering Facility: [facility] OB-DENTAL PRACTITIONER [place] Address: [address] [place] [address] Performed By: #### 5 7021-8 #### [facility] CLIA [id number] [address] [place] [address] 58436 Lymphocytes (Bld) [#/Vol] 1.25 10*3/uL Normal 1.00-4.00 [facility] Comment on above: Order Comment: Speci men Type: BLOOD SPECIMEN Ordering Facility: [facility] OB-DENTAL PRACTITIONER [place] Address: [address] [place] [address] Performed By: #### 5 7021-8 #### [facility] CLIA [id number] [address] [place] [address] 67399 Lymphocytes/100 WBC (Bld) 18.3 % Normal [facility] Comment on above: Order Comment: Speci men Type: BLOOD SPECIMEN Ordering Facility: [facility] OB-DENTAL PRACTITIONER [place] Address: [address] [place] [address] Performed By: #### 5 7021-8 #### [facility] CLIA [id number] [address] [place] [address] MCH (RBC) [Entitic mass] 29.9 pg Normal 26.0-34.0 [facility] Comment on above: Order Comment: Speci men Type: BLOOD SPECIMEN Ordering Facility: [facility] OB-DENTAL PRACTITIONER [place] Address: [facility] [place] [place] [address] Performed By: #### 5 7021-8 #### [facility] CLIA [id number] [address] [place] [address] 42550 MCHC (RBC) [Mass/Vol] 32.6 g/dL Normal 30.5-36.0 [facility] Comment on above: Order Comment: Speci men Type: BLOOD SPECIMEN Ordering Facility: [facility] OB-DENTAL PRACTITIONER [place] Address: [facility] [address] [place] [id number] Performed By: #### 5 7021-8 #### [facility] CLIA [id number] [address] [place] [address] 23407 MCV (RBC) [Entitic vol] 91.9 fL Normal 80.0-100.0 [facility] Comment on above: Order Comment: Speci men Type: BLOOD SPECIMEN Ordering Facility: [facility] Address: [facility] [address] [place] [id number] Performed By: #### 5 7021-8 #### [facility] CLIA [id number] [address] [place] [address] 76948 Monocytes (Bld) [#/Vol] 0.52 10*3/uL Normal <0.87 [facility] Comment on above: Order Comment: Speci men Type: BLOOD SPECIMEN [facility] Address: [facility] [address] [place] [id number] Performed By: #### 5 7021-8 #### [facility] CLIA [id number] [address] [place] [address] 00244 Monocytes/100 WBC (Bld) 7.6 % Normal [facility] Comment on above: Order Comment: Speci men Type: BLOOD SPECIMEN Ordering Facility: [facility] OB-DENTAL PRACTITIONER [place] Address: [address] [place] [address] Performed By: #### 5 7021-8 #### [facility] CLIA [id number] [address] [place] [address] 13420 Neutrophils (Bld) [#/Vol] 4.94 10*3/uL Normal 1.45-7.50 [facility] Comment on above: Order Comment: Speci men Type: BLOOD SPECIMEN Ordering Facility: [facility] OB-DENTAL PRACTITIONER [place] Address: [address] [place] [address] Performed By: #### 5 7021-8 #### [facility] CLIA [id number] [address] [place] [address] 91271 Neutrophils/100 WBC (Bld) 72.5 % Normal [facility] Comment on above: Order Comment: Speci men Type: BLOOD SPECIMEN Ordering Facility: [facility] PRACTITION[facility] [place] Address: [address] [place] [address] Performed By: #### 5 7021-8 #### [facility] CLIA [id number] [address] [place] [address] 80028 Nucleated RBC (Bld) [#/Vol] 10*3/uL Normal <0.01 [facility] Comment on above: Order Comment: Speci men Type: BLOOD SPECIMEN Ordering Facility: [facility] [place] Address: [address] [place] [address] Performed By: #### 5 7021-8 #### [facility] CLIA [id number] [address] [place] [address] 29660 Nucleated RBC/100 WBC (Bld) [Ratio] 0.0 /100 WBC Normal [facility] Comment on above: Order Comment: Speci men Type: BLOOD SPECIMEN Ordering Facility: [facility] Address: [address] [place] [address] Performed By: #### 5 7021-8 #### [facility] CLIA [id number] [address] [place] [address] 82633 Platelet mean volume (Bld) [Entitic vol] 11.4 fL Normal 9.0-12.7 [facility] Comment on above: Order Comment: Speci men Type: BLOOD SPECIMEN [facility] Address: [facility] [place] [address] [place] [address] Performed By: #### 5 7021-8 #### [facility] CLIA [id number] [address] [place] [address] 11429 Platelets (Bld) [#/Vol] 167 10*3/uL Normal 150-400 [facility] Comment on above: Order Comment: Speci men Type: BLOOD SPECIMEN Ordering Facility: [facility] [place] Address: [facility] [place] [address] [place] [address] Performed By: #### 5 7021-8 #### [facility] CLIA [id number] [address] [place] [address] 34329 RBC (Bld) [#/Vol] 3.81 10*6/uL Low 3.90-5.[address] [facility] Comment on above: Order Comment: Speci men Type: BLOOD SPECIMEN Ordering Facility: [facility] Address: [facility] [place] [address] [place] [address] Performed By: #### 5 7021-8 #### [facility] CLIA [id number] [address] [place] [address] 44090 WBC (Bld) [#/Vol] 6.82 10*3/uL Normal 3.70-11.[address] [facility] Comment on above: Order Comment: Speci men Type: BLOOD SPECIMEN [facility]ing [facility] Address: [facility] [place] [address] [place] [address] Performed By: #### 5 7021-8 #### [facility] CLIA [id number] [address] [place] [address] 93990 GESTATIONAL GLUCOSE SCREEN, 1-HOUR, 50 GRAM, NON-FASTINGon 11-20-2023 Glucose [Mass/Vol] 97 mg/dL Normal 74-134 [facility] Comment on above: Order Comment: Tammy mares Type: BLOOD SPECIMEN Ordering Facility: [facility] OBDENTAL PRACTITION[facility] [place] Address: [facility] [place] [address] [place] [address] Result Comment: [facility] Congress of Obstetricians and Gynecologists (Alma/Adrián) guidelines state a gestational diabetes mellitus positive screen is made, in women not previously diagnosed with overt diabetes, when the 1 hr plasma glucose level is equal to or above 140 mg/dL. [facility] Personal Lines Appraiser and [facility] Cisne recommends a 135 mg/dL cutoff. Performed By: #### G LTGST #### [facility] CLIA [id number] [address] [place] [address] [place] T4 Free SerPl-mCncon 024 Free T4 [Mass/Vol] 1.0 ng/dL Normal 0.9-1.7 [facility] Comment on above: Order Comment: Tammy mares Type: BLOOD SPECIMEN Ordering Facility: [facility] Address: [facility] [place] [address] Performed By: #### 3 024-7, 3016-3 #### [facility] CLIA [id number] [address] [place] [address] [place] TSH SerPl-aCncon 10-22-2023 TSH Qn 4.510 m[IU]/L High 0.270-4.200 [facility] Comment on above: Order Comment: Tammy mares Type: BLOOD SPECIMEN Ordering Facility: [facility] Address: [facility] [place] [address] [place] [address] Result Comment: If t he patient is , TSH reference range varies by gestational period: First Trimester (weeks 9-12): 0.180-2.990 mIU/L Second Trimester: 0.110-3.980 mIU/L Third Trimester: 0.480-4.710 mIU/L Manuel Grayson et al. A Practical Approach for the Verifications and Determination of Site- and Trimester-Specific Reference Intervals for Thyroid Function tests in . Thyroid, 2019:29:3:412-420. Emanuel Nassar, et al. 2017 Guidelines of the [place] Thyroid Association for the Diagnosis and Management of Thyroid Disease during and the . Thyroid, 2017:27:3:315-389. Performed By: #### 3 024-7, 3016-3 #### [facility] CLIA [id number] [facility] [place] [address] [place] CBC W Auto Differential pane l (Bld)on 08-08-2023 Basophils (Bld) [#/Vol] 10*3/uL Normal <0.11 [facility] Comment on above: Order Comment: Speci men Type: BLOOD SPECIMEN Ordering Facility: External Submitter Address: , , Performed By: #### 5 7021-8 #### [facility] CLIA [id number] [address] [place] [address] 50252 Basophils/100 WBC (Bld) 0.3 % Normal [facility] Comment on above: Order Comment: Speci men Type: BLOOD SPECIMEN Ordering Facility: External Submitter Address: , , Performed By: #### 5 7021-8 #### [facility] CLIA [id number] [address] [place] [address] 23368 Differential cell count method Nom (Bld) Auto Normal [facility] Comment on above: Order Comment: Speci men Type: BLOOD SPECIMEN Ordering Facility: External Submitter Address: , , Performed By: #### 5 7021-8 #### [facility] CLIA [id number] [address] [place] [address] 77255 Eosinophils (Bld) [#/Vol] 0.06 10*3/uL Normal <0.46 [facility] Comment on above: Order Comment: Speci men Type: BLOOD SPECIMEN Ordering Facility: External Submitter Address: , , Performed By: #### 5 7021-8 #### [facility] CLIA [id number] [address] [place] [address] 19549 Eosinophils/100 WBC (Bld) 0.9 % Normal [facility] Comment on above: Order Comment: Speci men Type: BLOOD SPECIMEN Ordering Facility: External Submitter Address: , , Performed By: #### 5 7021-8 #### [facility] CLIA [id number] [address] [place] [address] 52815 Erythrocyte distribution width (RBC) [Ratio] 13.7 % Normal 11.5-15.0 [facility] Comment on above: Order Comment: Speci men Type: BLOOD SPECIMEN Ordering Facility: External Submitter Address: , , Performed By: #### 5 7021-8 #### [facility] CLIA [id number] [address] [place] [address] 90359 Hematocrit (Bld) [Volume fraction] 40.1 % Normal 36.0-46.0 [facility] Comment on above: Order Comment: Speci men Type: BLOOD SPECIMEN Ordering Facility: External Submitter Address: , , Performed By: #### 5 7021-8 #### [facility] CLIA [id number] [address] [place] [address] 39702 Hemoglobin (Bld) [Mass/Vol] 13.4 g/dL Normal 11.5-15.5 [facility] Comment on above: Order Comment: Speci men Type: BLOOD SPECIMEN Ordering Facility: External Submitter Address: , , Performed By: #### 5 7021-8 #### [facility] CLIA [id number] [address] [place] [address] 53281 Immature granulocytes (Bld) [#/Vol] 10*3/uL Normal <0.10 [facility] Comment on above: Order Comment: Speci men Type: BLOOD SPECIMEN Ordering Facility: External Submitter Address: , , Performed By: #### 5 7021-8 #### [facility] CLIA [id number] [address] [place] [address] 46224 Immature granulocytes/100 WBC (Bld) 0.3 % Normal [facility] Comment on above: Order Comment: Speci men Type: BLOOD SPECIMEN Ordering Facility: External Submitter Address: , , Performed By: #### 5 7021-8 #### [facility] CLIA [id number] [address] [place] [address] 17518 Lymphocytes (Bld) [#/Vol] 1.67 10*3/uL Normal 1.00-4.00 [facility] Comment on above: Order Comment: Speci men Type: BLOOD SPECIMEN Ordering Facility: External Submitter Address: , , Performed By: #### 5 7021-8 #### [facility] CLIA [id number] [address] [place] [address] 04216 Lymphocytes/100 WBC (Bld) 24.9 % Normal [facility] Comment on above: Order Comment: Speci men Type: BLOOD SPECIMEN Ordering Facility: External Submitter Address: , , Performed By: #### 5 7021-8 #### [facility] CLIA [id number] [address] [place] [address] 90134 MCH (RBC) [Entitic mass] 31.1 pg Normal 26.0-34.0 [facility] Comment on above: Order Comment: Speci men Type: BLOOD SPECIMEN Ordering Facility: External Submitter Address: , , Performed By: #### 5 7021-8 #### [facility] CLIA [id number] [address] [place] [address] 71791 MCHC (RBC) [Mass/Vol] 33.4 g/dL Normal 30.5-36.0 [facility] Comment on above: Order Comment: Speci men Type: BLOOD SPECIMEN Ordering Facility: External Submitter Address: , , Performed By: #### 5 7021-8 #### [facility] CLIA [id number] [address] [place] [address] 77165 MCV (RBC) [Entitic vol] 93.0 fL Normal 80.0-100.0 [facility] Comment on above: Order Comment: Speci men Type: BLOOD SPECIMEN Ordering Facility: External Submitter Address: , , Performed By: #### 5 7021-8 #### [facility] CLIA [id number] [address] [place] [address] 26606 Monocytes (Bld) [#/Vol] 0.50 10*3/uL Normal <0.87 [facility] Comment on above: Order Comment: Speci men Type: BLOOD SPECIMEN Ordering Facility: External Submitter Address: , , Performed By: #### 5 7021-8 #### [facility] CLIA [id number] [address] [place] [address] Monocytes/100 WBC (Bld) 7.5 % Normal [facility] Comment on above: Order Comment: Speci men Type: BLOOD SPECIMEN Ordering Facility: External Submitter Address: , , Performed By: #### 5 7021-8 #### [facility] CLIA [id number] [address] [place] [address] 77319 Neutrophils (Bld) [#/Vol] 4.44 10*3/uL Normal 1.45-7.50 [facility] Comment on above: Order Comment: Speci men Type: BLOOD SPECIMEN Ordering Facility: External Submitter Address: , , Performed By: #### 5 7021-8 #### [facility] CLIA [id number] [address] [place] [address] 37975 Neutrophils/100 WBC (Bld) 66.1 % Normal [facility] Comment on above: Order Comment: Speci men Type: BLOOD SPECIMEN Ordering Facility: External Submitter Address: , , Performed By: #### 5 7021-8 #### [facility] CLIA [id number] [address] [place] [address] 88616 Nucleated RBC (Bld) [#/Vol] 10*3/uL Normal <0.01 [facility] Comment on above: Order Comment: Speci men Type: BLOOD SPECIMEN Ordering Facility: External Submitter Address: , , Performed By: #### 5 7021-8 #### [facility] CLIA [id number] [address] [place] [address] 91735 Nucleated RBC/100 WBC (Bld) [Ratio] 0.0 /100 WBC Normal [facility] Comment on above: Order Comment: Speci men Type: BLOOD SPECIMEN Ordering Facility: External Submitter Address: , , Performed By: #### 5 7021-8 #### [facility] CLIA [id number] [address] [place] [address] 97847 Platelet mean volume (Bld) [Entitic vol] 12.1 fL Normal 9.0-12.7 [facility] Comment on above: Order Comment: Speci men Type: BLOOD SPECIMEN Ordering Facility: External Submitter Address: , , Performed By: #### 5 7021-8 #### [facility] CLIA [id number] [address] [place] [address] 22081 Platelets (Bld) [#/Vol] 148 10*3/uL Low 150-400 [facility] Comment on above: Order Comment: Speci men Type: BLOOD SPECIMEN Ordering Facility: External Submitter Address: , , Performed By: #### 5 7021-8 #### [facility] [place] [id number] [address] [place] [address] 68722 RBC (Bld) [#/Vol] 4.31 10*6/uL Normal 3.90-5.[address] [facility] Comment on above: Order Comment: Speci men Type: BLOOD SPECIMEN Ordering Facility: External Submitter Address: , , Performed By: #### 5 7021-8 #### [facility] [place] [id number] [address] [place] [address] 94155 WBC (Bld) [#/Vol] 6.71 10*3/uL Normal 3.70-11.[address] [facility] Comment on above: Order Comment: Speci men Type: BLOOD SPECIMEN Ordering Facility: External Submitter Address: , , Performed By: #### 5 7021-8 #### [facility] [place] [id number] [address] [place] [address] 27275 HBV surface Ag Ser Qlon 04- HBV surface Ag Ql (S) Negative Normal Negative [facility] Comment on above: Order Comment: Speci men Type: BLOOD SPECIMEN Ordering Facility: External Submitter Address: , , Performed By: #### 5 5454-3 #### [facility] CLIA [id number] [address] [place] [address] [place] HCV Ab Ser Qlon 08-08-2023 HCV Ab Ql (S) Negative Normal Negative [facility] Comment on above: Order Comment: Speci vishnu Type: BLOOD SPECIMEN Ordering Facility: External Submitter Address: , , Result Comment: The result suggests no evidence of active infection with Hepatitis C virus. Should recent infection be suspected, repeat testing may be considered 4-6 weeks after this draw. Performed By: #### 1 6128-1 #### [facility] CLIA [id number] [address] [place] [address] [facility] OF [place] HIV 1+2 Ab IA Qlon HIV 1 and 2 Ab IA.rapid Nom (S/P/Bld) Normal [facility] Comment on above: Order Comment: Speci vishnu Type: BLOOD SPECIMEN Ordering Facility: External Submitter Address: , , Result Comment: Test not indicated. Performed By: #### 5 5454-3 #### [facility] CLIA [id number] [address] [place] [address] [place] HIV 1+2 Ab+HIV1 p24 Ag IA Ql Non-Reactive Normal Nonreactive [facility] Comment on above: Order Comment: Speci vishnu Type: BLOOD SPECIMEN Ordering Facility: External Submitter Address: , , Performed By: #### 5 5454-3 #### [facility] CLIA [id number] [address] [place] [address] [place] HIV immunoassay testing algorithm interpretation (S/P/Bld) [Interp] Normal [facility] Comment on above: Order Comment: Speci vishnu Type: BLOOD SPECIMEN Ordering Facility: External Submitter Address: , , Result Comment: No e vidence of HIV-1 or HIV-2 infection. Should recent infection be suspected, repeat testing may be considered 2-3 weeks after this draw. [place] Rev. Code 3701.243(E): This information has been [...] test results or diagnoses. Performed By: #### 5 5454-3 #### [facility] CLIA [id number] [address] [place] [address] [place] [facility] HbA1c (Bld)on 08-08-2023 Average glucose Estimated from glycated hemoglobin (Bld) [Mass/Vol] 105 mg/dL Normal [facility] Comment on above: Order Comment: Tammy mares Type: BLOOD SPECIMEN Ordering Facility: External Submitter Address: , , Result Comment: eAG: (Estimated average glucose) is a calculated value from HgbA1c and is inside account representative of the average blood glucose level in the last 2-3 month period. Performed By: #### 5 5454-3 #### [facility] CLIA [id number] [address] [place] [address] [place] [facility] HbA1c (Bld) [Mass fraction] 5.3 % Normal 4.3-5.6 [facility] Comment on above: Order Comment: Tammy [...] diabetes. Performed By: #### 5 5454-3 #### [facility] CLIA [id number] [address] [place] [address] [place] RPR Ser Qlon 08-08-2023 Reagin Ab RPR Ql (S) Non-Reactive Normal Nonreactive [facility] Comment on above: Order Comment: Speci men Type: BLOOD SPECIMEN Ordering Facility: [facility] [place] Address: [address] [place], [place] [address] [place] [address] Result Comment: Rapi d plasma reagin (RPR) test detects non-treponemal antibodies. RPR may be reactive in a variety of infectious and non-infectious conditions. Correlation with clinical picture and with treponemal antibody results is required for final interpretation. Performed By: #### 3 024-7, 3016-3 #### [facility] CLIA [id number] [address] OF [place] RUBELLA IGG ANTIBODYon 08-07 RUBELLA IGG AB, QUAL Positive Normal Positive [facility] Comment on above: Order Comment: Speci men Type: BLOOD SPECIMEN Ordering Facility: [facility]ACT[facility] [place] Address: [address] [place] [address] [place] [address] Result Comment: The result suggests recent or past exposure to Rubella virus or history of Rubella vaccination. Positive result may also be seen due to presence of passively-transferred antibodies. Please correlate with patient's history. Performed By: #### 3 024-7, 3016-3 #### [facility] CLIA [id number] [address] [place] TYPE + SCREENon 08-08-2023 ABO A Normal [facility] Comment on above: Order Comment: Speci men Type: BLOOD SPECIMEN Ordering Facility: External Submitter Address: , , Performed By: #### T SCR #### [facility] CLIA [id number] [address] [place] [address] [place] HISTORICAL AB SCR STATUS Negative Normal [facility] Comment on above: Order Comment: Speci men Type: BLOOD SPECIMEN Ordering Facility: External Submitter Address: , , Performed By: #### T SCR #### [facility] CLIA [id number] [address] [place] [address] [place] Rh Nom (Bld) Positive Normal [facility] Comment on above: Order Comment: Speci men Type: BLOOD SPECIMEN Ordering Facility: External Submitter Address: , , Performed By: #### T SCR #### [facility] CLIA [id number] [address] [place] [id number] [facility] OF [place] TYPE AND SCREEN EXPIRATION 08/11/2023 23:59 Normal [facility] Comment on above: Order Comment: Tammy mares Type: BLOOD SPECIMEN Ordering Facility: External Submitter Address: , , Performed By: #### T SCR #### [facility] CLIA [id number] [address] OF [place] B-HCG SerPl-aCncon 4 HCG.beta subunit Qn m[IU]/mL Normal <5.[address] [facility] Comment on above: Order Comment: Tammy mares Type: BLOOD SPECIMEN Ordering Facility: External Submitter Address: , , Result Comment: Dianne logan Performed By: #### 5 5454-3 #### [facility] CLIA [id number] [address] OF [place] CNPBritt 05-16-2023 CNPN Telephone (HEMASA) JESSEE ALMODOVAR ([id number]) 1990 [facility] Date Time Provider Department 05/16/23 RONI DUMAS During your visit today, we recorded the following information about you: Allergies As of Date: 05/16/2023 (No Known Allergies) Date Reviewed: 04/11/2023 Reviewed by: Macy Jones APRN.WALL WASHER - Fully Assessed Reason for Visit: Lab Orders [1688] Primary Visit Diagnosis:Possible , not confirmed [Z32.00] Order(s):HCG QUANTITATIVE [SQHCGQT] Order #: [id number] FUTURE Prescriptions as of 05/16/2023 - doxycycline [...] Status:Closed by RONI DUMAS on 05/16/23 Normal [facility] TOX SCREEN ROUT URon 024 Amphetamines Confirm (U) [Mass/Vol] Negative Normal Negative [facility] Comment on above: Order Comment: Speci men Type: BLOOD SPECIMEN Ordering Facility: [facility] [place] Address: [facility] [address] [place] [address] Result Comment: Cuto ff threshold at 1000 ng/mL. Performed By: #### 3 024-7, 3016-3 #### [facility] CLIA [id number] [address] [place] [address] [place] BARBITURATES, URINE Negative Normal Negative [facility] Comment on above: Order Comment: Speci men Type: BLOOD SPECIMEN Ordering Facility: [facility] [place] Address: [facility] [address] [place] [address] Result Comment: Cuto ff threshold at 200 ng/mL. Performed By: #### 3 024-7, 3016-3 #### [facility] CLIA [id number] [address] [place] [address] [place] BENZODIAZEPINES, UR Negative Normal Negative [facility] Comment on above: Order Comment: Speci men Type: BLOOD SPECIMEN Ordering Facility: [facility] Address: [facility] [address] [place] [address] Result Comment: Cuto ff threshold at 200 ng/mL. Performed By: #### 3 024-7, 3016-3 #### [facility] CLIA [id number] [address] [place], [place] [address] [place] Cannabinoids Screen Ql (U) Negative Normal Negative [facility] Comment on above: Order Comment: Speci men Type: BLOOD SPECIMEN Ordering Facility: [facility] Address: [facility] [address] [place] [address] Result Comment: Cuto ff threshold at 50 ng/mL. Performed By: #### 3 024-7, 3016-3 #### [facility] CLIA [id number] [address] [place] [address] [place] Cocaine Ql (U) Negative Normal Negative [facility] Comment on above: Order Comment: Speci men Type: BLOOD SPECIMEN Ordering Facility: [facility] [place] Address: [facility] [address] [place] [address] Result Comment: Cuto ff threshold at 300 ng/mL. Performed By: #### 3 024-7, 3015-3 #### [facility] CLIA [id number] [address] [place] [address] [place] Ethanol (U) [Mass/Vol] <11 Normal <11 [facility] Comment on above: Order Comment: Speci men Type: BLOOD SPECIMEN Ordering Facility: [facility] Address: [facility] [address] [place] [address] Performed By: #### 3 024-7, 3015-3 #### [facility] CLIA [id number] [address] [place] [address] [place] Opiates Screen Ql (U) Negative Normal Negative [facility] Comment on above: Order Comment: Speci men Type: BLOOD SPECIMEN Ordering Facility: [facility] Address: [facility] [address] [place] [address] Result Comment: Cuto ff threshold at 300 ng/mL. Performed By: #### 3 024-7, 3015-3 #### [facility] CLIA [id number] [address] [address] [place] oxyCODONE cutoff Screen (U) [Mass/Vol] Negative Normal Negative [facility] Comment on above: Order Comment: Speci men Type: BLOOD SPECIMEN Ordering Facility: [facility] Address: [facility] [address] [place] [address] Result Comment: Cuto ff threshold at 100 ng/mL. Performed By: #### 3 024-7, 3015-3 #### [facility] CLIA [id number] [address] [place] [address] [place] Phencyclidine Ql (U) Negative Normal Negative [facility] Comment on above: Order Comment: Speci men Type: BLOOD SPECIMEN Ordering Facility: [facility]ACTITION[facility] [place] Address: [address] [place] [address] , [place] [address] Result Comment: Cuto ff threshold at 25 ng/mL. Performed By: #### 3 024-7, 3016-3 #### [facility] CLIA [id number] [address] [place] [address] [place] B-HCG SerPl-aCncon 4 HCG.beta subunit Qn m[IU]/mL Normal <5.[address] [facility] Comment on above: Order Comment: Speci men Type: BLOOD SPECIMEN Ordering Facility: External Submitter Address: , , Result Comment: Dianne logan Performed By: #### 5 [id number] #### [facility] CLIA [id number] [facility] [place] [address] [place] CNOVon 02-25-2023 CNOV Office Visit (ORTHMN ) JESSEE ALMODOVAR ([id number]) 1990 [facility] Date Time Provider Department 02/25/23 1:00 PM [...] with a (more content not included)... Normal [facility] XR HIP 3V PELV+ AP/LAT RTon [...] any questions regarding this interpretation, please call [phone]. If you are unable to reach us at the number above, please feel free to contact [facility]iology at [phone]. [id number] Normal [facility] XR Pelvis and Hip - right [...] any questions regarding this interpretation, please call [phone]. If you are unable to reach us at the number above, please feel free to contact [facility]iology at [phone]. DIVISION OF RADIOLOGY * * *Final Report* [...] hip are unremarkable. DIVISION OF RADIOLOGY Provider, [facility] - 02/20/2023 * * *Final Report* * [...] any questions regarding this interpretation, please call [phone]. If you are unable to reach us at the number above, please feel free to contact [facility] at [phone]. 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] Order(s):XR HIP GENERAL 3V PELV/AP/LAT RIGHT [[id number]] Order #: [id number] FUTURE Prescriptions as of 02/17/2023 - amphetamine-dextroamphe [...] Status:Closed by TIANA CRONIN on 02/17/23 Normal [facility] CBC W Auto Differential pane l (Bld)on 11-15-2022 Basophils (Bld) [#/Vol] 0.04 10*3/uL <0.11 k/uL [facility] Basophils/100 WBC (Bld) 0.8 % [facility] Differential cell count method Nom (Bld) Auto [facility] Eosinophils (Bld) [#/Vol] 0.11 10*3/uL <0.46 k/uL [facility] Eosinophils/100 WBC (Bld) 2.1 % [facility] Erythrocyte distribution width (RBC) [Ratio] 13.7 % 11.5 - 15.0 % [facility] Hematocrit (Bld) [Volume fraction] 46.7 % High 36.0 - 46.0 % [facility] Hemoglobin (Bld) [Mass/Vol] 15.6 g/dL High 11.5 - 15.5 g/dL [facility] Immature granulocytes (Bld) [#/Vol] <0.10 k/uL [facility] Immature granulocytes/100 WBC (Bld) 0.2 % [facility] Lymphocytes (Bld) [#/Vol] 1.77 10*3/uL 1.00 - 4.00 k/uL [facility] Lymphocytes/100 WBC (Bld) 33.7 % [facility] MCH (RBC) [Entitic mass] 31.8 pg 26.0 - 34.0 pg [facility] MCHC (RBC) [Mass/Vol] 33.4 g/dL 30.5 - 36.0 g/dL [facility] MCV (RBC) [Entitic vol] 95.3 fL 80.0 - 100.0 fL [facility] Monocytes (Bld) [#/Vol] 0.64 10*3/uL <0.87 k/uL [facility] Monocytes/100 WBC (Bld) 12.2 % [facility] Neutrophils (Bld) [#/Vol] 2.68 10*3/uL 1.45 - 7.50 k/uL [facility] Neutrophils/100 WBC (Bld) 51.0 % [facility] Nucleated RBC (Bld) [#/Vol] <0.01 k/uL [facility] Nucleated RBC/100 WBC (Bld) [Ratio] 0.0 /100 WBC [facility] Platelet mean volume (Bld) [Entitic vol] 11.3 fL 9.0 - 12.7 fL [facility] Platelets (Bld) [#/Vol] 154 10*3/uL 150 - 400 k/uL [facility] RBC (Bld) [#/Vol] 4.90 10*6/uL 3.90 - 5.2 0 m/uL [facility] WBC (Bld) [#/Vol] 5.25 10*3/uL 3.70 - 11. 00 k/uL [facility] CBC W Auto Differential pane l (Bld)on 08-09-2022 Basophils (Bld) [#/Vol] 0.03 10*3/uL <0.11 k/uL [facility] Basophils/100 WBC (Bld) 0.6 % [facility] Differential cell count method Nom (Bld) Auto [facility] Eosinophils (Bld) [#/Vol] 0.05 10*3/uL <0.46 k/uL [facility] Eosinophils/100 WBC (Bld) 0.9 % [facility] Erythrocyte distribution width (RBC) [Ratio] 13.6 % 11.5 - 15.0 % [facility] Hematocrit (Bld) [Volume fraction] 42.0 % 36.0 - 46.0 % [facility] Hemoglobin (Bld) [Mass/Vol] 13.5 g/dL 11.5 - 15.5 g/dL [facility] Immature granulocytes (Bld) [#/Vol] <0.10 k/uL [facility] Immature granulocytes/100 WBC (Bld) 0.4 % [facility] Lymphocytes (Bld) [#/Vol] 1.57 10*3/uL 1.00 - 4.00 k/uL [facility] Lymphocytes/100 WBC (Bld) 29.0 % [facility] MCH (RBC) [Entitic mass] 30.5 pg 26.0 - 34.0 pg [facility] MCHC (RBC) [Mass/Vol] 32.1 g/dL 30.5 - 36.0 g/dL [facility] MCV (RBC) [Entitic vol] 94.8 fL 80.0 - 100.0 fL [facility] Monocytes (Bld) [#/Vol] 0.47 10*3/uL <0.87 k/uL [facility] Monocytes/100 WBC (Bld) 8.7 % [facility] Neutrophils (Bld) [#/Vol] 3.27 10*3/uL 1.45 - 7.50 k/uL [facility] Neutrophils/100 WBC (Bld) 60.4 % [facility] Nucleated RBC (Bld) [#/Vol] <0.01 k/uL [facility] Nucleated RBC/100 WBC (Bld) [Ratio] 0.0 /100 WBC [facility] Platelet mean volume (Bld) [Entitic vol] 11.1 fL 9.0 - 12.7 fL [facility] Platelets (Bld) [#/Vol] 145 10*3/uL Low 150 - 400 k/uL [facility] RBC (Bld) [#/Vol] 4.43 10*6/uL 3.90 - 5.2 0 m/uL [facility] WBC (Bld) [#/Vol] 5.41 10*3/uL 3.70 - 11. 00 k/uL [facility] XR Pelvis and Hip - right [...] any questions regarding this interpretation, please call [phone]. If you are unable to reach us at the number above, please feel free to contact [facility] at [phone]. DIVISION OF RADIOLOGY * * *Final Report* [...] in the interval. DIVISION OF RADIOLOGY Provider, Tmo amaro Cisne - 08/01/2022 * * *Final Report* * [...] any questions regarding this interpretation, please call [phone]. If you are unable to reach us at the number above, please feel free to contact [facility] at [phone]. [facility] Radiology Study observation (narrative) [facility] XR Pelvis and Hip - right AP and Lateral frogOrdered By: Ccf Provider on 08-01-2022 [facility] Ambulatory Visit Summaryon 0 05-26-2022 Ambulatory Visit Summary ZEYAD JESSEE :1990 Visit Date:05/26/2022 Ambulatory Visit Instructions Your [...] Up with CHELSEA KRAUS DO When: Where: [facility] [address] [place] [id number]- Medications What How Much When Why Instructions New amoxicillin (amoxicillin 500 mg Cap) 1 Capsules By Mouth Every 12 hours Strep pharyngitis Duration: 10 Days Pickup at [facility] Unchanged biotin Contact prescribing physician if [...] physician if questions or concerns Pharmacy Information [facility]: [address] [place], [place] [id number] [phone] Allergies No Known Allergies Problems Ongoing - [...] these instructions at home: Medicines ? Take owzw-xzn-mwrvgxz and prescription medicines only as told by [...] cup (more content not included)... 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 No ksiw-rff-ypknfae medications today. Review of Systems PHQ Score [...] day(s), # 20 cap(s), Refills(s) 0, Pharmacy: [facility], 172, cm, 05/26/22 9:34:00 EST, [...] Acute pharyngitis, unspecified) Ordered: Rapid Strep POC 69590 Follow-up With When Contact Information CHELSEA KRAUS DO [facility] [address] [place] [address]- Additional Instructions: Patient Education Strep Throat, Adult, Oawp-xv-Vupo BMI for Adults Problem List/Past Medical History [...] Strep POC Result: Positive (05/26/22 09:56:00) Normal [facility] Comment on above: Result Comment: Elec tronically Signed By: Roxanne MOSLEY CNP\.br\Date and Time Signed: 05/26/22 10:07 EST Patient [...] these instructions at home: Medicines ? Take gngr-bvv-iinxlnj and prescription medicines only as told by [...] 09/23/2008 Document Revised: 06/25/2019 Document Reviewed: 06/25/2019 [employer]aTrace software Patient Education ? 2019 [employer]. Nutrition BMI for Adults Body mass index (BMI) is a number that is calculated from a person's weight and height. BMI may help to estimate how much of a person's weight is composed of fat. BMI can help identify those who may be (more content not included)... Normal [facility] Coding Summary.on 02-26-2022 Coding Summary. [id number] Gh0 bWw+PGhlYWQ+WP2RFHKaF93 upBRquC3ZI5fBJF6IULYCQJ DYIN2DZQ6uxJF8XJodK4Qxl iAv GygfzPGiTX92YNw2TYG1rLa oPBbkbM9gqMYjI9x5ElGrWS 86aQ46UEmkWUGeEvP1QnWiy jsgbWFy X1fkYsZygNRtWuz+PHRhYmx lIHdpZHRoPScxMDAlJyBzdH kvVK4eIy6nLBFaXNDcwSxjd HNlOiBj g0qhSWUbNFgoWH0vxLwkT2X rnAI3CXIoi9q8El27wMN+PH PsWZA2vSbyFLzbx769VzWkp 7qfOSP8 qEAaDXuiHWA7W34ab2Z4YVS xIQYwQTW6aTX3cJ6sjJrywh buC7JvhODlLhZ8SSD9dNRfx U2zdPxu xgzyhF0wObl+B53LSE1DWRO UJW5OZys6F4BrVouorRL+PC 02VTRjLZ38hXQqvLIxr8yok Yx8EeFd YQSmKGH6xZhpAYarj2BvTQL xL36zeDXbr1T3XNGosBwdhP EcPuGuiXC8iQ9dTCnjwztab 2hvdzsn Llast6gjvn53fA73U36lSCy oHCPiACP0BDBeRBWeoBqdvw 8kxV2hWq7+MWzww7wvk4bbd Ev7YkOt SVWnwlWeeZcnMJW6o3UcRc8 2U4HulOkfo3KkQam9bc18uD Eaj4G3zNL3DBcaYSGntX9wC WxlZnQ6 YNYaCmRepR66sDEdFVfdMv0 kgDbvoByrZI2tNFKeudyyTT CumL6dJAHpwFRiaWyzXG3eW TBpbjtm j600QlAkJAI7BUEcyYBlE4Y nxU1rBgJdNMDdHTGyR6LahB WnSJxvN448YVeiLfB1TEZkh nZqF9Ml KCMgzClbPuF4v0O9Qy5My0Z rdaxyUDN7IDdjTDWlFjX5Lh YrEdP2P9NzEsd1ZCMhfLrlK L4iO3Dn UZWgklrybnhurXP3NRFhGEC ulS80bTVjWYfsGk5wl6W4l0 08VTZrQHWnmQ07Pd6hdOcvM TBwdCBU lS2jvorvo4ttwuljIjGbYIJ iAVc6MOl5DAMqpJnfLeXbQD A3HaY9MMX4pAIogU0jqLmjc fuxsA9d Oyc+M01naA4vNAZ2KYL6ofi aFUVuoiEgLL55YX11B9LgZb wvdGFibGU+PGRpdiBzdHlsZ T5wYrKv a6iuj2CkUUnwO3HdUQSvTMg yYmz1QLRzNQC9tTL6xM4bTL VtAGtyx9G3rLV4K2ZnduSpb d7up3ky FEGzDZrdH02qwGHul1S3TXE vnRX0JHEenHnlZnAgoH54Cb c+QAXxoJxml3WeQyswy1ibw 9eslKl0 GlGoHREsxaHbsRplZTB5z0P qJw75Y95aWFeiHMTqMNUbFY OoXQVfjBcnff0reM1mWw8+P GNvbCB3 lXN1hJ9jAJPcNnJ7CTpfI61 9VmEbpONbSmqly1ciu1mypY c3HrOnQIDbfeLmpSqoKYD4d 8BnWm95 G21nNAqeRQVaAIOrGAJxAEP tpZtlhy5neH6cXf5+PC9jb2 wyie69yS48dWH+YNYjGKY0s WxlPSdw QWSkwQ5oWJiaQcI4DNBlGxR byH20fFScOKzaNn4eiJikvR loLX7mNRLjjixrx429RoCat 2xkIDEw vWFhRHtpWLX9O09no6K4JYO mXVXwGZS0aHP6gJ3vvJrknx ogbGVmdDsgdmVydGljYWwtY TbuI005 IHRvcDsnPlBhdGllbnQgTmF eVEq1M8KmTlg3GDSnmZadIO 8ntZBmKLzdHx2ifEbltJjfE Q9iEXQo zbcur903YtPur2jqHJHawUD pJBxvFDU6Q24mv5V4HVCpYX SdFVN1pMM8yH2qoQhnaakth GVmdDsg niOxgHqdSLusZWgkB827SDI yhFsgGeJlmiTgJZKrkUG3NE 37TM69mBVut5G8rER6G6MbX GRpbmct sdumhEX6XUEfBVFtlQ72Il4 hwFmeWg5hPNEbXAF8ETGqjO QuN0PhmP0bKrZjCTZaEZEnQ 3RleHQt REmxP980PHwlDtI1VHNrlzA mE0SsKHSogDdzArP6y3Z1Et 7YI6C0XF51FN45mOXvj8J2g LN9B3Vk PIHxzjnynnesjKV0FFGcQUD giL27Gu9llNrfFt3aVGXkEQ A7XJUhtOKhR9RxbE9jLzHkU DAwMDAw X2KxnJZwHVqsT957UQgrWfR 4FQFykiRwY3SpBCEroLzmBt X7n8O4Tf8YDZn7KM10ZO30f YMfd0Q2 jRO7N4PsCARtfwgydiomfZH 6CAJqSLNcaI67Ld4zwIayKk 4nVJFnNGO3GYRykVBtI1Ksu U9dNwYw WMRkYLQwS2OaaGZyMThfK44 3WWkxKcS4ODFztrZfW5VnMG WuqGvaHeQ0q7L1Iv6YUKQxL X42DFQ0 iRI5GX43SR59E4LvJdrxtYV ibGU+PHRhYmxlIHdpZHRoPS siRRWrQzFvpHadSD4xLw0gE GVyLWNv fSsjxITxKzKow9fzZJMfAVq eZQ7teDcoZ6NqhDJ5CDSgd6 s8Mi07Y85lX7RhjZD+PGNvb BA8jEX2 iR9lZzOuYzU2IJbeL888XwG plXKrHqupr0uri0ejhUo9My P0EHYzvaSdyLfoJYK6c6QyV c92B76h IHdpZHRoPSIxNSUiIHZhbGl uxk1cmV4dZo8+LLVjzWU9vU S3fN5iYeBxOkK5LBkbW294V nRvcCIv Hbazz8qbn3oamTn3CiNdEVS ebzXrfZblGPX4j4ZlCp88P8 IlzHjng4MxDda4ak22cOZdi 5Y5qFJ5 Q1ZePZRslifjoTBnfXfzKW4 cNFJhdcyvWUPpaN8cNKTbH1 l4JzShWqV4RYbcN9RwykI6B DEwcHQg NRqbRLW2E89in0G5NYGiETA bLVG6hDG0kK7fcZwuvaiobA VmdDsgdmVydGljYWwtYWxpZ 246IHRv rYloTIGwnH6cPRSidNBooXy hLH2sRRYeygatQbtUVXqUHY dJBilnBPEGLD50Y5OtKnq1C CBzdHls XN8rlJNsKOxjTj1osDbtzQj yEQ0mRFZidhtnHSLatW3wCH WxoAUuqXjtFZ0wOYYanzixw 250OiAx ASZ6WXPhfYRkT0GfqK7qNyC oKKYiSEYkZ8WubZFaWEpqY7 67GPdzEvA0VCQpfgQuF1XpA WFsaWdu ChB5l2B1Fq9iTC5xBZ2gPBu bYI88EX87kCIdo2M5dRN6E9 AmNEVomsnsgshvgKU2YOLmB DUwaW47 pTQbFHwrFk9zc4H3g208AMX oTQPywC45Yk3gzOyjBGHwbH YOkE6slbcit5sgpqxcBnLiA DAwMDt0 ZDg8NZIjsYuzUqQzIJM9SbV 9PFT5zVSslY6cvKtijjfleR 9wOyc+ObLdGFBhhcJ5W6QaQ hf0KHBl dIunAX2suSDyYTxdBl2wpTi fzFudDY7vQCZbqcugQAZxhA 7gFZWjlTZgaXvjQG4fMOWhz xmtx894 RuZzYJD4DDXnuVYgA4KcgH7 wZrFzZSUoGPFnJ1DqsBXuJZ tuU275HAtxUdR9BQZmetArD 2FsLWFs dDqqHjS8t9B0Op6CBJ7vmDX 3L8DwZto4IKKujRlcEV1ypC DqALxtQm9bcYswhMkuYN3gF TBpbjtw CJBuyU9nSBStlJOmbCizQQ7 sCAJayncem269XyTbUUF9PE VmfGBeF0EbkN6tBlKaYPUyS FUdI4Ge lHCzJQceP118KFslYyJ1YJE wpoKqD2YjVIZqkPsfVzG9u5 V9Dy2EuIFzR4QiZ9q5V7JyJ jwvdHI+ NE48TIToPE72eXTkmNJhi5w qbCw7TpGkJOJjHHS9qIrtHY ptf6FaVQUzH82tnZBuh7G8Y GNvbGxh xVWhMhYqmBV8lC3sYFzmbox zp0zmhrgaBxcrc7lwsc23eX 83E70dHSteFLGmEKNaNHTpE HZhbGln np5laK1lPx5+NCMyqKB7lGI 5iW4xYbGkBpO0ELrnJ929Oj ScjYBnWkluw6iap9dhoQr5G jIwJSIg ekEdyTtqYKX0n1RoLa68M75 sIHdpZHRoPSIyMCUiIHZhbG pyin3fpU1uXx2+DA6rk8fdp b30eQ48 dHI+SBOrXQZ9oIntYExaRTD xjX6wDZpyNmF6TZQpWbXsyW 69hXSnNTdvAb2piHccmMafL M4eUAYf lucgi606YsVij1sqYRYawDP kXQxxYFA1T98na3V4QJKpCL JbHIZ0dSO5pA8kzLytscugk GVmdDsg koXbpArcLPwdXPdjB951IMS beUlkBaXasOQiW5dsvkLZMN 1lOjwvdGQ+EWApSCV6lKgbH SdwYWRk qQ6jHNJcK3h4PeFmHaV2NZr fY8ZlphV0FPNahAKdVHNwfR FOcF6uvbktn0qhdcphTbXcS DAwMDt0 JCo4WTPjsUodBcJhIAQ1ZcR 3BGH3gQLidY9ipGaljrigvP 9wOyc+RklOOjwvdGQ+PHRkI PN5qGcz RDsnNSOoiX2hWCUgN7s0ZfQ fGtZ3JKpdL9HrfiS4KXXffP JpVGTlkMRWlD1ddkxlk3wfp jogIzAw TTWlIEb7ATl1RRTigAmvVpM wRIP1MpI9TMK4nKVopP5muT vikqhddB7wCqn+TVJOOjwvd GQ+PHRk UWS1sHysVOaqNRPenJ5gALX pP2g1ZpKvJoX3CBedI9Bqcr A7QKEtbADmCFRycZMCmB7fm xvyg1ih mdzvHyKiLJFnNEj1OBt6FCM zbMybMyMgHUY9MkF6SJA6kX UtdV3ujFtgpcbxcQ7kBjs+U KF1QYJ1 PR25ER80K4BnMidahSByrVJ +PHRhYmxlIHdpZHRoPScxMD SiCtOuzXoeMI1jRw5tTIGmG WNvbGxh cHNl (more content not included)... Normal [facility] Discharge Instructionson Discharge Instructions [id number] CD:127 Normal [facility] ED Clinical Summaryon 2021 ED Clinical Summary (Inserted Image. Kelsi ble to display) [place] [id number] ED Clinical Summary Person Information Name: [facility] Age: 32 Years : 1990 Sex: Female Language: Gabonese PCP: Marital Status: Phone: [phone] Visit Id: Visit Reason: Foot pain-swelling; HURT [...] 02/23/2022 11:07:01 02/23/2022 11:07:01 02/23/2022 11:07:01 ADDRESS: [address] [facility] [id number] PHYS DOC NOTES: MEDICAL INFORMATION: Prescriptions Given: PATIENT EDUCATION INFORMATION: Instructions: Foot Sprain; How to Use Cold Therapy, Wxxv-jl-Jibg; Elastic Bandage and RICE Therapy Follow up: With: Address: When: CHELSEA KRAUS [employer], [address] [place] [address] [facility] ([employer] In 3 days 02/26/2022 Comments: Follow-up with your primary care provider in 3 to 5 days. If symptoms worsen, do not improve, or new symptoms arise please report back to emergency department for further evaluation. DIAGNOSIS: Sprain of left foot Normal [facility] ED Note-Physicianon 02-24-20 ED Note-Physician Basic Information Time Seen: Mohan Garcia PA-C 02/23/2022 09:09 Chief Complaint PT REPORTS L [...] Information CHELSEA KRAUS In 3 days 02/26/2022 [facility] [employer] [address] [place], [place] [id number] [facility] (1) Additional Instructions: Follow-up with your primary care provider in 3 to 5 days. If symptoms worsen, do not improve, or new symptoms arise please report back to emergency department for further evaluation. Patient Education Foot Sprain How to Use Cold Therapy, Xiqk-ob-Dudl Elastic Bandage and RICE Therapy Attestation Patient seen and evaluated by the physician assistant import manager. Attending physician was present in the emergency department and supervised care. This visit was performed by both the physician and an APC. I performed all aspects of the MDM as documented. This report was transcribed using voice recognition software. Every effort was made to ensure accuracy, however, inadvertently computerized piano technician mistakes may be present. Appropriate healthcare PPE [...] medications Ho (more content not included)... Normal [facility] Comment on above: Result Comment: Elec tronically Signed By: Mohan Garcia PA-C\.br\Date and Time Signed: 02/23/22 13:47 EDT\.br\Electronically Co-Signed By: Chayo Anne DO\.br\Date and Time Co-Signed: 02/23/22 15:49 EDT ED [...] This may take several hours. ? Take vuhd-llp-ickfsbg and prescription medicines only as told by [...] is no (more content not included)... Normal [facility] ED Patient Summaryon 022 ED Patient Summary (Inserted Image. Kelsi ble to display) [address] [address] Patient Discharge Instructions Person Information Name: JESSEE ALMODOVAR Age: 32 Years Arrival Date: 02/23/2022 09:05:13 Discharge Diagnosis: Sprain of left foot Primary Care Physician: Provider Information Primary Provider: Chayo Anne DO Advanced Loan Representative:None The exam and treatment you received in the Emergency Department were for an urgent problem and are not intended as complete care. It is important that you follow up with a doctor, nurse practitioner, or physician?s assistant import manager for ongoing care. If your symptoms become worse or you do not improve as expected and you are unable to reach your usual health care provider, you should return to the Emergency Department. We are available 24 hours a day. JESSEE ALMODOVAR has been given the following list of patient education materials, prescriptions and follow-up instructions: Follow-up Instructions: With: Address: When: CHELSEA KRAUS [employer], [address] [place] [address] Business (1) In 3 days 02/26/2022 [...] Foot Sprain; How to Use Cold Therapy, Rdxb-di-Shiy; Elastic Bandage and RICE Therapy A MESSAGE TO ALL PATIENTS REGARDING OPIOIDS PRESCRIPTION OPIOIDS: WHAT YOU NEED TO KNOW Prescription opioids can be used to help relieve zzvgevjw-rk-qlvzlm pain and are often prescribed following a [...] from the Food and Drug Administration (www.fda.gov/Drugs/Reso urcesForYou). ? Visit www.cdc.gov/ (more content not included)... Normal [facility] XR Foot 3+ Views Lefton -0 XR Foot 3+ Views Left Exam Date/Time: [...] Chatterjee DO Transcribed by: SUZY Technologist: TIM Normal [facility] XR Pelvis and Hip - right [...] any questions regarding this interpretation, please call [phone]. If you are unable to reach us at the number above, please feel free to [facility] at [phone]. DIVISION OF RADIOLOGY * * *Final Report* [...] joint appears preserved. DIVISION OF RADIOLOGY Provider, [facility] - 02/19/2022 * * *Final Report* [...] any questions regarding this interpretation, please call [phone]. If you are unable to reach us at the number above, please feel free to contact [facility] eRadiology at [phone]. [facility] XR Pelvis and Hip - right AP and Lateral frogOrdered By: Ccf Provider on 02-19-2022 [facility] XR Pelvis and Hip - right AP and Lateral frogon 02-18-2022 Radiology Study observation (narrative) [facility] CT ABD/PELV W CONon 02-12-20 CT ABD/PELV [...] by: EMELIA STEWART Date: 2022-02-11 07:23 Normal [facility] US PELVIS AND TRANSVAGon US PELVIS AND [...] by: JENNIFER HARTLEY Date: 2022-01-08 14:12 Normal [facility] UA DIP, URINE (POC)on 2021 BILIRUBIN UA (POCT) Negative Negative [facility] CLARITY UA (POCT) Cloudy [facility] COLOR UA (POCT) Yellow [facility] GLUCOSE UA (POCT) Negative Negative mg/dL [facility] HEMOGLOBIN/BLOOD UA (POCT) Trace-intact Abnormal Negative [facility] KETONE UA (POCT) Negative Negative mg/dL [facility] LEUKOCYTES UA (POCT) Small Abnormal Negative [facility] NITRITE UA (POCT) Negative Negative [facility] PH UA (POCT) 6.5 4.5 - 8.0 [facility] Protein Ql (U) Negative Negative mg/dL [facility] SPECIFIC GRAVITY UA (POCT) 1.015 1.005 - 1.030 [facility] UROBILINOGEN UA (POCT) 0.2 E.U./dL Normal E.U./dL [facility] Large Joint Arthro/Inj: R gr eater trochanteric bursa [facility] Vital Signs Date Time Vital Sign Value Performing Clinician Facility 02-25-2023 13:16-0500 Body height 185.4 cm Rosas Mckinney MD Work Phone: [facility] 02-25-2023 [id number] Body weight 76.67 kg Rosas Mckinney MD Work Phone: [facility] 07-10-2022 15:15-0400 Body height 181.61 cm Imad Asaad Other [facility] [employer] Other 07-10-2022 15:15-0400 Body mass index (BMI) [Ratio] 24.48 kg/m2 Imad Asaad Other [employer] [employer] Other 07-10-2022 15:15-0400 Body weight 80.74 kg Imad Asaad Other [employer] Other 07-10-2022 15:15-0400 Diastolic blood pressure 78 mm[Hg] Imad Asaad Other [employer] [employer] Other 07-10-2022 15:15-0400 Systolic blood pressure 130 mm[Hg] Imad Asaad Other [employer] Other 05-26-2022 09:29-0500 Blood Pressure Location Roxanne MOSLEY [facility] 05-26-2022 09:29-0500 Body temperature 98.42 [degF] Roxanne MOSLEY [facility] 05-26-2022 09:29-0500 Diastolic blood pressure 78 mm[Hg] Roxanne MOSLEY [facility] 05-26-2022 09:29-0500 Heart rate 115 /min Roxanne MOSLEY [facility] 05-26-2022 09:29-0500 SaO2% (BldA) [Mass fraction] 98 % Roxanne MOSLEY [facility] 05-26-2022 09:29-0500 Systolic blood pressure 120 mm[Hg] Roxanne MOSLEY [facility] 02-23-2022 09:10-0400 Body temperature 98.42 [degF] Chayo Anne [facility] 02-23-2022 09:10-0400 Diastolic blood pressure 67 mm[Hg] Chayo Anne [facility] 02-23-2022 09:10-0400 Heart rate 88 /min Chayo Anne [facility] 02-23-2022 09:10-0400 Respiratory rate 18 /min Chayo Anne [facility] 02-23-2022 09:10-0400 SaO2% (BldA) [Mass fraction] 98 % Chayo Anne [facility] 02-23-2022 09:10-0400 Systolic blood pressure 141 mm[Hg] Chayo Anne [facility] Encounters Encounter Date Encounter Type Care Provider Facility Start: 01-19-2024 End: 01-19-2024 ambulatory ANUPAMA BROWN Facility:[facility] Start: 01-13-2024 End: 01-13-2024 ambulatory GUILLAUME VASQUEZ Not Available Start: 01-05-2024 End: 01-05-2024 ambulatory ANUPAMA BROWN Facility:[facility] Start: 12-30-2023 End: 12-30-2023 ambulatory GUILLAUME PEDRO Not Available Start: 12-16-2023 End: 12-16-2023 ambulatory GUILLAUME PEDRO Not Available Start: 12-08-2023 End: 12-08-2023 ambulatory GUILLAUME R PEDRO Facility:[facility] Start: 11-20-2023 End: 11-20-2023 ambulatory ANUPAMA BROWN Facility:[facility] Start: 11-18-2023 End: 11-18-2023 ambulatory ELISEO KIN Not Available Start: 10-22-2023 End: 10-22-2023 ambulatory GUILLAUME R PEDRO Facility:[facility] Start: 10-21-2023 End: 10-21-2023 ambulatory GUILLAUME PEDRO Not Available Start: 10-16-2023 End: 10-16-2023 ambulatory [facility] Start: 09-24-2023 End: 09-24-2023 ambulatory ELISEO KIN Not Available Start: 08-26-2023 End: 08-26-2023 ambulatory GUILLAUME PEDRO Not Available Start: 08-08-2023 End: 08-08-2023 ambulatory GUILLAUME R PEDRO Facility:[facility] Start: 07-24-2023 End: 07-24-2023 ambulatory GUILLAUME PEDRO Not Available Start: 06-04-2023 End: 06-04-2023 ambulatory ASIF GRIFFIN [facility] Start: 06-02-2023 End: 06-02-2023 Phys/qhp telephone evaluation 5-10 min Guillaume Pedro DO Work Phone: [facility] Comment on above: Irregular menses (Pr imary Dx) Start: 06-02-2023 End: 06-02-2023 ambulatory GUILLAUME PEDRO Not Available Start: 05-28-2023 Chart abstracting Guillaume Pedro DO Work Phone: [facility] Start: 05-16-2023 End: 05-16-2023 ambulatory ANUPAMA BROWN Facility:[facility] Start: 05-05-2023 End: 05-05-2023 ambulatory ASIF SCHAEFER Facility:[facility] Start: 05-02-2023 End: 05-02-2023 ambulatory [facility] Start: 05-02-2023 End: 05-02-2023 Office outpatient visit 25 minutes Asif Schaefer PORTRAIT PHOTOGRAPHER-WALL WASHER Work Phone: [facility] Comment on above: Attention deficit hy peractivity disorder (ADHD), predominantly inattentive type (Primary Dx); Moderate episode of recurrent major depressive disorder (CMS-HCC); Generalized anxiety disorder Start: 03-04-2023 End: 03-04-2023 ambulatory GUILLAUME VASQUEZ Not Available Start: 02-25-2023 End: 02-25-2023 ambulatory ANUPAMA DANIELLE BROWN Facility:[facility] Start: 02-25-2023 End: 02-25-2023 Office outpatient visit 25 minutes Rosas Mckinney MD Work Phone: Orthopaedics Comment on above: Lytic bone lesion of femur (Primary Dx); Greater trochanteric bursitis of right hip; Chronic pain of right hip; Chronic low back pain, unspecified back pain laterality, unspecified whether sciatica present; Pain of right hip; Bone lesion Start: 02-20-2023 End: 02-20-2023 ambulatory ANUPAMA BROWN Facility:[facility] Start: 02-20-2023 End: 02-20-2023 Subsequent hospital visit by physician General Thi Bunch Mc Work Phone: Radiology Comment on above: 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] Start: 02-17-2023 Telephone encounter Roni harvey MD Work Phone: Hematology/Oncology Start: 11-15-2022 Orders Only Anupama Danielle Brown DO Work Phone: Hematology/Oncology Comment on [...] 07-10-2022 End: 07-10-2022 ambulatory Imad Asaad Other [facility] [employer] Other Start: 07-10-2022 Office outpatient ne w 45 minutes Imad Asaad [facility] G[facility] Start: 05-26-2022 End: 05-27-2022 ambulatory Roxanne MOSLEY Facility:[facility] Start: 05-26-2022 End: 05-26-2022 Patient encounter procedure Roxanne MOSLEY [facility] Start: 05-08-2022 End: 05-08-2022 ambulatory PRAVIN SANDERSON Facility: Start: 02-26-2022 End: 02-26-2022 Patient encounter procedure Rosas Mckinney MD Work Phone: Orthopaedics Comment on above: Lytic bone lesion of femur (Primary Dx) Start: 02-23-2022 End: 02-23-2022 Emergency department patient visit Chayo Anne Facility:[facility] Start: 02-23-2022 End: 02-23-2022 Emergency department patient visit Chayo Anne [facility] Start: 02-18-2022 End: 02-18-2022 Subsequent hospital visit by physician General Thi Bunch Mc Work Phone: Radiology Comment on above: 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] Start: 02-09-2022 End: 02-10-[address] GUILLAUME VASQUEZ Facility: Start: 01-08-2022 End: 01-09-[address] GUILLAUME VASQUEZ Facility:[facility] Start: 12-06-2021 Orders Only Rebecca Treadwell RN Hematol ogy/Oncology Comment on above: Unspecified hypothyr oidism (Primary Dx) Start: 11-08-2021 Manual pelvic examination Natanael Mixon MD Work Phone: Hematology/Oncology Comment on above: Pelvic pain (Primary Dx) Dysuria (Primary Dx) Start: 11-08-2021 End: 11-08-2021 Nursing evaluation of patient and report Ma Nurse Yamil Mcwilliams Work Phone: Hematology/Oncology Comment on above: Dysuria (Primary Dx) Start: 10-04-2021 Orders Only Macy Jones APRN.WALL WASHER Work Phone: Hematology/Oncology Comment on above: Acute bilateral low back pain with bilateral sciatica (Primary Dx) Procedures Date Procedure Procedure Detail Performing Clinician Start: 08-08-2023 Antibody screen GUILLAUME MURILLO Comment on above: Order Comment: Speci men Type: BLOOD SPECIMEN Ordering Facility: External Submitter Address: , , Performed By: #### T SCR #### CC MAIN BLOOD BANK [facility] [id number] [address] [place] [address] [place] Start: 02-25-2023 Arthrocentesis aspir &/inj major jt/bursa w/o us Tiana Cronin PA-C Work Phone: Start: 02-20-2023 Radex hip unilateral with pelvis 2-3 views Roni Dumas MD Work Phone: Start: 08-08-2022 Adult depression scr eening assessment Asif Schaefer PORTRAIT PHOTOGRAPHER-WALL WASHER Work Phone: Start: 08-01-2022 Radex hip unilateral [...] Td Vaccines (4 - Td or Tdap) [facility] Start: 01-04-2030 Urine microalbumin profile DTa P,Tdap,Td Vaccine (4 - Td or Tdap) [facility] Start: 03-10-2024 Tobacco Screening Tobacco Screening [facility] Start: 02-23-2024 Screening for malign ant neoplasm of cervix [facility] Start: 12-21-2023 Covid-19 Vaccine () Covid-19 Vaccine () [facility] Start: 12-21-2023 Covid-19 Vaccine ( season) Covid-19 Vaccine () [facility] Start: 12-21-2023 Influenza vaccination Influenza Vacc ine (#1) [facility] Start: 08-09-2023 Adult BMI Screening Adult BMI Screen ing [facility] Start: 08-09-2023 Depression Screening Depression Scre ening [facility] Start: 05-29-2023 End: 05-29-2023 Patient encounter procedure 05/29/2023 8:10 AM EST Office Visit [facility] [address] [place] [address] Guillaume Vasquez, DO [address] [place] [address] Irregular menses [facility] Comment on above: Irregular menses Start: 12-20-2022 Covid-19 Vaccine () Covid-19 Vaccine () [facility] Start: 12-20-2022 Influenza vaccination INFLUENZA (#1) [facility] Start: 11-15-2022 End: 01-15-2023 Comprehensive metabolic 2000 panel - Serum or Plasma [facility] Work Phone: Comment on above: Expected: 11/15/2022 , Expires: 01/15/2023 Start: 11-15-2022 End: 01-15-2023 Lipid 1996 panel - Serum or Plasma [facility] Work Phone: Comment on above: Expected: 11/15/2022 , Expires: 01/15/2023 Start: 11-15-2022 End: 01-15-2023 T4/FTI/T4U [facility] Work Phone: Comment on above: Expected: 11/15/2022 , Expires: 01/15/2023 Start: 11-15-2022 End: 01-15-2023 Thyrotropin [Units/volume] in Serum or Plasma [facility] Work Phone: Comment on above: Expected: 11/15/2022 , Expires: 01/15/2023 Start: 08-26-2022 End: 03-28-2023 XR HIP GENERAL 3V PELV/AP/LAT RIGHT XR HIP GENERAL 3V PELV/AP/LAT RIGHT Radiology Routine Lytic bone lesion of femur Expected: 08/26/2022, Expires: 03/28/2023 [facility] Work Phone: Comment on above: Expected: 08/26/2022 , Expires: 03/28/2023 Start: 08-09-2022 End: 10-09-2022 25-hydroxyvitamin D3 [Mass/volume] in Serum or Plasma [facility] Work Phone: Comment on above: Expected: 08/09/2022 , Expires: 10/09/2022 Start: 04-21-2022 DEPRESSION ASSESSMENT DEPRESSION ASS ESSMENT [facility] Start: 12-20-2021 Influenza vaccination INFLUENZA (#1) [facility] Start: 12-06-2021 End: 02-05-2022 Thyrotropin [Units/volume] in Serum or Plasma [facility] Work Phone: Comment on above: Expected: 12/06/2021 , Expires: 02/05/2022 Start: 12-06-2021 End: 02-05-2022 Thyroxine (T4) free [Mass/volume] in Serum or Plasma [facility] Work Phone: Comment on above: Expected: 12/06/2021 , Expires: 02/05/2022 Start: 12-06-2021 End: 02-05-2022 Triiodothyronine (T3) [Mass/volume] in Serum or Plasma [facility] Work Phone: Comment on above: Expected: 12/06/2021 , Expires: 02/05/2022 Start: 11-08-2021 End: 01-08-2022 Choriogonadotropin ( test) [Presence] in Urine [facility] Work Phone: Comment on above: Expected: 11/08/2021 , Expires: 01/08/2022 Start: 11-08-2021 End: 01-08-2022 URINALYSIS, REFLEX MICROSCOPIC [facility] Work Phone: Comment on above: Expected: 11/08/2021 , Expires: 01/08/2022 Start: 04-21-2021 DEPRESSION ASSESSMENT DEPRESSION ASS ESSMENT [facility] Start: 2021 HPV TESTING HPV TESTING [facility] Start: 10-13-2020 COVID-19 VACCINE (3 - Booster for Moderna series) COVID-19 VACCINE (3 - Booster for Moderna series) [facility] Start: 07-10-2020 COVID-19 VACCINE (3 - Booster for Moderna series) COVID-19 VACCINE (3 - Booster for Moderna series) [facility] Start: 07-10-2020 COVID-19 VACCINE (3 - Moderna series) COVID-19 VACCINE (3 - Moderna series) [facility] Start: 02-08-2012 PAP TESTING PAP TESTING [facility] Start: 02-08-2012 Screening for malign ant neoplasm of cervix [facility] Start: 2010 Urine microalbumin profile DTA P,TDAP,TD (1 - Tdap) [facility] Start: 2009 Anxiety Screening Anxiety Screening [facility] Start: 2009 Depression Screening Depression Scre ening [facility] Start: 2009 HEPATITIS C SCREENING HEPATITIS C SC KILEY [facility] Start: 2009 HIV SCREENING HIV SCREENING [facility] Start: 2003 Adult depression scr eening assessment DEPRESSION SCREENING [facility] Start: 1997 Pneumococcal vaccination [facility] Start: 1991 HEPATITIS B (1 of 3 - 3-dose series) HEPATITIS B (1 of 3 - 3-dose series) [facility] Bacteria identified in Urine by Culture URINE CULTURE Microbiology Routine Pelvic pain 11/08/2021 11:36 AM EDT [facility] Work Phone: End: 06-02-2023 Drug Screen, Urine [...] lesion 1 Occurrences starting 02/25/2023 until 03/26/2024 [facility] Work Phone: Comment on above: 1 Occurrences starti ng 02/25/2023 until 03/26/2024 End: 03-18-2024 XR HIP GENERAL 3V PELV/AP/LAT RIGHT XR HIP GENERAL 3V PELV/AP/LAT RIGHT Radiology Routine Lytic bone lesion of femur 1 Occurrences starting 02/17/2023 until 03/18/2024 [facility] Work Phone: Comment on above: 1 Occurrences starti ng 02/17/2023 until 03/[facility] Immunization Date Immunization Notes Care Provider Jonathan lara 01-28-2023 influenza virus vaccine, unspecified formulation Roni Dumas MD Work Phone: [facility] 02-14-2022 influenza virus vaccine, unspecified formulation Rosas Mckinney MD Work Phone: [facility] 01-18-2021 influenza virus vaccine, unspecified formulation Macy Jones APRN.CNP Work Phone: [facility] 03-01-2020 influenza, seasonal, injectable Imad Asaad Other [facility] Other 02-03-2016 influenza, injectable, quadrivalent, contains preservative Imad Asaad Other [employer] Other NEGATED: Highlighted row has not occurred!03-02-2019 influenza, seasonal, injectable Imad Asaad Other [employer] Other Payers Date Payer Category Payer Unknown [id number] 1990 Unknown [id number] 2.16.84 [id number] 1991 Unknown [id number] 2.16.84 0.1.448081.3.579.2.593 1991 Unknown [id number] 2.16.84 0.1.249459.3.579.2.593 1991 Unknown [id number] 2.16.8 40.1.694176.3.579.2.727 1991 Unknown [id number] 2.16.8 40.1.103725.3.579.2.727 1991 Unknown [id number] 2.16.84 0.1.419694.3.579.2.1286 1991 Unknown [id number] 2.16.8 40.1.702881.3.579.2.1286 1991 Unknown [id number] 2.16.8 40.1.941828.3.579.2.1286 1991 Unknown [id number] 2.16.8 40.1.360677.3.579.2.1286 1991 Unknown [id number] 2.16.84 0.1.736528.3.579.2.1259 1991 Unknown [id number] 2.16.84 0.1.360579.3.579.2.1259 1991 Unknown [id number] 2.16.84 0.1.050361.3.579.2.1259 1991 Unknown [id number] 2.16.84 0.1.488129.3.579.2.1259 1991 Unknown [id number] 2.16.84 0.1.370105.3.579.2.1259 1991 Unknown [id number] 2.16.84 0.1.822368.3.579.2.1259 1991 Unknown [id number] 2.16.84 0.1.868126.3.579.2.1259 1991 Unknown [id number] 2.16.84 0.1.982873.3.579.2.1259 1991 Unknown [id number] 2.16.84 0.1.309723.3.579.2.1259 1991 Unknown [id number] 2.16.840. 1.863898.3.579.2.1259 1959 Unknown [id number] Social History Date Type Detail Facility Tobacco smoking status NJIS Tobacco smoking consumption unknown [facility] Work Phone: Start: 1990 Sex Assigned At Not on file [facility] Start: 10-29-2021 End: 02-26-2022 Exposure to SARS-CoV-2 (event) Not sure [facility] Start: 03-21-2013 End: 02-11-2022 Tobacco smoking status Ex-smoker (finding) [facility] Comment on above: quit 01/2013 Start: 02-11-2022 End: 02-26-2022 Sex Assigned At Female [facility] History of tobacco use Current smoker [facility] History of tobacco use Cigarette Smoker [facility] History of tobacco use Passive smoker [facility] Start: 02-11-2022 End: 08-08-2022 Tobacco use and exposure Smokeless tobacco non-user [facility] Start: 02-11-2022 End: 02-26-2022 Alcohol intake Current drinker of alcohol (finding) [facility] Tobacco smoking status Never [facility] Start: 02-11-2022 End: 02-26-2022 History of Social function [facility] Start: 02-25-2023 End: 05-28-2023 Tobacco smoking status NHIS Occasional tobacco smoker [facility] Start: 08-08-2022 Alcohol Comment on the weekends [facility] Start: 05-28-2023 Alcohol Comment caffeine: 2-3 cups per day coffee; soda [facility] Functional Status Date Assessment Result Facility 05-26-2022 Functional Status N/A [facility] 02-23-2022 Functional Status N/A [facility] Clinical Notes 08-20-2015 to 06-02-2023 Guillaume Vasquez DO - 06/02/2023 4:20 PM ESTPsychiatric Progress Note - Asif Schaefer APRN-WALL WASHER - 05/02/2023 10:00 AM ESTPatient Rosas Wilson MD - 02/25/2023 1:10 PM EST Note Date & Type Note Facility 06-02-2023 History of Present illness Narrative Reason for Appointment: Patient ID: Jessee Almodovar is a 33 y.o. female who presents for No chief complaint on file. Patient presents today via telephone call for a telehealth appointment. Patients Phone #: [phone] (mobile) Current Medications: has a current medication [...] or as needed. Will consider referral to [facility] in future Documented by Guillaume Vasquez DO on behalf of: Guillaume Vasquez DO documented in this encounter [facility] 05-02-2023 Miscellaneous Notes [address] [place] [address] Patient: Jessee Almodovar Date of : 1990 Encounter Date: 05/02/2023 History of Present Illness/Psychiatric Review of Symptoms/Medical Review of Systems: Video Visit via Real-time Synchronous Audiovisual Provider Location: [facility] [place] [facility] [address] [place] [address] Patient Location: patient's office in [place], [place] Video Visit Consent Statement: I discussed [...] that there are some limitations compared to hdgq-ie-plkl evaluations. The patient consented to the presence of additional virtual and/or in-person participants. We elected to proceed. Jessee is a 33 y.o. female, established patient, and is logged on via Aibo for a follow-up video visit. HPI: Jessee reports she is feeling about the same since last visit. She was unable to tell the difference between taking the immediate release Adderall. She expresses frustrations with still feeling easily distractible. She has had a lot going on since the holidays. She enjoyed Gina and new 's with her immediate family. She traveled to [place] to see her parents, which went well. [...] Moderate episode of recurrent major depressive disorder ([facility]) Generalized anxiety disorder Medication Changes: yes [...] CNP, PMP-. BARAK De Leon 05/02/23 1746 documented in this encounter Narrative 05-02-2023 Progress note Formatting of t his note is [place] [address] Patient: Jessee Almodovar Date of : 1990 Encounter Date: 05/02/2023 History of Present Illness/Psychiatric Review of Symptoms/Medical Review of Systems: Video Visit via Real-time Synchronous Audiovisual Provider Location: [facility] [place] [facility] [address] [place] [address] Patient Location: patient's office in [place], [place] Video Visit Consent Statement: I discussed [...] that there are some limitations compared to ktvj-sn-hrgl evaluations. The patient consented to the presence of additional virtual and/or in-person participants. We elected to proceed. Jessee is a 33 y.o. female, established patient, and is logged on via Aibo for a follow-up video visit. HPI: Jessee reports she is feeling about the same since last visit. She was unable to tell the difference between taking the immediate release Adderall. She expresses frustrations with still feeling easily distractible. She has had a lot going on since the holidays. She enjoyed Gina and 's with her immediate family. She traveled to [place] to see her parents, which went well. [...] by mouth in the morning. methylphenidate HCl (RNA PM) 20 mg capsule,del rel,ext rel sprink [...] Moderate episode of recurrent major depressive disorder ([facility]) Generalized anxiety disorder Attention deficit hyperactivity [...] Moderate episode of recurrent major depressive disorder ([facility]) Generalized anxiety disorder Medication Changes: yes [...] SCHAEFER CNP, PMP-. BARAK De Leon 05/02/23 5230 [facility] 02-25-2023 Instructions Tiana Cronin PA-C - 02/25/2023 1:56 PM EST Images from the original note were not included. MRI right hip Home exercises Continue with NSAIDS CSI right hip- may repeat in 3 months if needed documented in this encounter [facility] 02-25-2023 Note HNO ID: [id number] Author: Rosas Mckinney MD Service: ? Author [...] given from [facility] (more content not included)... [facility] 02-25-2023 History of Present illness Narrative [...] trochanteric bursa Informed Consent Consent Obtained: Verbal [place] Protocol A moment to CARE was completed. [...] Time: 10:49 PM documented in this encounter [facility] 02-20-2023 History of Present illness Narrative Radiology [...] IV DATA: Not applicable SIGNED BY: RT Francisco(Kena) February 20, 2023 8:45 AM documented in this encounter [facility] 02-20-2023 Note HNO ID: [id number] Author: Kathrine Smith RT(Kena) Service: ? Author Type: Technologist Type: Progress [...] RT Francisco(R) February 20, 2023 8:45 AM [facility] 02-17-2023 Miscellaneous Notes Jourdan Atkins, My MA Karyna is having quite a bit of pain and dysfunction in the right hip. Most days in the mornings especially, are excruciating for her and she's unable to sleep on her right side. Would you mind to see her again please? I can get additional imaging first, if you'd like. Thanks, Td. documented in this encounter [facility] 08-01-2022 History of Present illness Narrative Radiology [...] 2022 9:04 AM documented in this encounter [facility] 07-10-2022 Evaluation note Encounter Date Diagnosis Assessment Notes Jun, Constipation (ICD-10 - K59.00) Jun, Change in bowel habits (ICD-10 - R19.4) Jun, Diarrhea (ICD-10 - R19.7) Patient to start Align probiotic. Jun, Bloating (ICD-10 - R14.0) [facility] Other 02-05-2023 Hospital Discharge instructions Patient Education 05/26/2022 10:06:58 Strep Throat, Adult, Wrma-qs-Mbet Strep Throat, Adult Strep throat is an [...] Follow these instructions at home: Medicines Take xbvz-dxn-lftiomq and prescription medicines only as told by [...] 09/23/2008 Document Revised: 06/25/2019 Document Reviewed: 06/25/2019 [employer] software Patient Education 2020 [employer]. 05/26/2022 10:06:56 BMI for Adults BMI for [...] height. This can be done either in [place] ([place] or metric measurements. Note that charts are available to help you find your BMI quickly and easily without having to do these calculations yourself. To calculate your BMI in [place] measurements, your health care provider will: [...] medical problems. BMI can be measured using Gabonese measurements or metric measurements. To interpret your [...] 12/17/2004 Document Revised: 03/20/2018 Document Reviewed: 02/18/2018 [employer] Patient Education 2020 [employer]. Follow Up Care 05/26/2022 09:09:50 With:CHELSEA KRAUS DO Address: [employer] [address] [place] [address]- When: Unknown [facility] 11-08-2022 History of Present illness [...] she has undergone a workup with her rn clinical. She states she underwent a CT scan [...] abdominal pain with planned GI followup, as manager policy workup so far is unremarkable. Patient does [...] being sent back to Roni Dumas via [employer]amz[employer]e[facility] Epidemiologist or Chart CC for [facility] Providers. Rosas Mckinney MD Warehouse Material Handler, Orthopaedic Surgery Division of Musculoskeletal Oncology [facility] Evaluation + Plan note Extracted from: Title:ED Note Author:Mohan Garcia PA-C te:02/23/22 Sprain of left foot (S93.602 A: Unspecified sprain of left foot, initial encounter) Orders: Crutches Elastic Bandage Application XR Foot 3+ Views Left [facility]11-05-2022 Hospital Discharge instructions Patient Education 02/23/2022 11:07:01 [...] fully hardened. This may takeseveral hours. Take kvap-ukl-giabrky and prescription medicines only as told by [...] 09/27/2002 Document Revised: 04/11/2018 Document Reviewed: 04/11/2018 [employer] Patient Education 2020 [employer]. 02/23/2022 11:07:01 How to Use Cold Therapy, Jlqt-vv-Wmcl How to Use Cold Therapy Cold therapy, [...] 09/23/2008 Document Revised: 01/04/2019 Document Reviewed: 01/04/2019 [employer] software Patient Education 2020 [employer] 02/23/2022 11:07:01 Elastic Bandage and RICE Therapy [...] limityour activities and whether you should start wnjrw-jn-lyrbcb exercises for your injury. Ice Ice your [...] 09/27/2002 Document Revised: 12/26/2017 Document Reviewed: 12/26/2017 [employer] software Patient Education 2020 [employer]. Follow Up Care 02/23/2022 09:05:48 With:CHELSEA KRAUS Address: [employer] [address] [place], [place] [address]- Business (1) When:02/26/2022 10:46:43 Comments:Follow-up with your primary care provider in 3 to 5 days. If symptoms worsen, do not improve, or new symptoms arise please report back to emergency department for further evaluation. [facility]10-31-2022 History of Present illness Narrative* Kathrine Smith, RT(R) - 02/18/2022 3:00 PM EDT Radiology [...] PERIPHERAL IV DATA: Not applicable SIGNED BY: Kathrine Smith RT(R) February 18, 2022 3:09 PM [facility] Nurse Note* Lillie Smith - 11/08/2021 11:25 AM EDT UA performed as ordered. Lillie Smith [facility] History of Present illness Narrative* Macy Jones APRN.CNP - 10/04/2021 3:36 PM EDT Physical [facility] History general Narrative - Reported* Type Description Date Medical History Bernardo's thyroiditis Medical History Post- depression 2019 Surgical History D & C d/t miscarriage 08/2015 Surgical History LEEP 2012 Hospitalization History child [employer] Other Evaluation note* Diagnosis Acute bilateral low back pain with bilateral sciatica- Primary [facility]* Diagnosis Pelvic pain- Primary documented in this encounter [facility]* Diagnosis Dysuria- Primary documented in this encounter [facility]* Diagnosis Dysuria- Primary documented in this encounter [facility]* Diagnosis Unspecified hypothyroidism- Primary documented in this encounter [facility]* Diagnosis Lytic bone lesion of femur- Primary documented in this encounter [facility]* Diagnosis Moderate episode of recurrent major depressive disorder (HCC)- Primary documented [facility] this [facility]* Diagnosis Unspecified hypothyroidism- Primary Essential hypertension, malignant Lipids blood increased Other and unspecified hyperlipidemia Vegans' anemia Other vitamin B12 deficiency anemia [facility] Diagnosis Lytic bone lesion of femur- Primary [facility] Diagnosis Lytic bone lesion of femur- Primary Greater trochanteric bursitis of right hip Enthesopathy of hip region Chronic pain of right hip Chronic low back pain, unspecified back pain laterality, unspecified whether sciatica present Pain of right hip Bone lesion Disorder of bone and cartilage, unspecified [facility]* Diagnosis Attention deficit hyperactivity disorder (ADHD), predominantly 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 ([facility]) Generalized anxiety disorder [facility] Diagnosis Irregular menses- Primary Irregular menstrual cycle [facility] Diagnosis Lytic bone lesion of femur [facility]* Diagnosis Lytic bone lesion of femur [facility]* Diagnosis Lytic bone lesion of femur documented in this encounter [facility] course Narrative No data available for this section [facility]* Attachments The following attachments cannot be sent through Care Everywhere. * Methylphenidate, ADULT (Gabonese) [facility] No data available for this section [facility] CenterReason for referral (narrative)* Diagnostic Procedure Only (Routine) - Pending Review Specialty Diagnoses / Procedures Referred By Contac t Referred To Contact XR IMAGING Diagnoses Lytic bone lesion of femur Procedures XR HIP GENERAL 3V PELV/AP/LAT RIGHT RADEX HIP UNILATERAL WITH PELVIS 2-3 VIEWS Rosas Mckinney MD [address] [facility] [place] [address] Xr Imaging Referral ID Status Reason Start Date Expiration Date Visits Requested Visits Authorized [id number] Pending Review Auto-Generat ed Referral 08/26/2022 03/28/2023 1 1 [facility] for referral (narrative)* Diagnostic Procedure Only (Routine) - Pending Review Specialty Diagnoses / Procedures Referred By Contac t Referred To Contact XR IMAGING Diagnoses Lytic bone lesion of femur Procedures XR HIP GENERAL 3V PELV/AP/LAT RIGHT RADEX HIP UNILATERAL WITH PELVIS 2-3 VIEWS Tiana Cronin PA-C [address] [place] [address] [place] [address] Referral ID Status Reason Start Date Expiration Date Visits Requested Visits Authorized [id number] Pending Review Auto-Generat ed Referral 03/18/2024 1 1 [facility] for referral (narrative)* Diagnostic Procedure Only (Routine) - Closed Specialty Diagnoses / Procedures Referred By Contac t Referred To Contact XR IMAGING Diagnoses Lytic bone lesion of femur Procedures XR HIP GENERAL 3V PELV/AP/LAT RIGHT RADEX HIP UNILATERAL WITH PELVIS 2-3 VIEWS Roni Dumas MD [address] [place] [address] [place] [address] [place] [address] Referral ID Status Reason Start Date Expiration Date V isits Requested Visits Authorized [id number] Closed Auto-Generate d Referral 02/17/2023 03/18/2024 1 1 [facility] for referral (narrative)* Diagnostic Procedure Only (Routine) - Closed Specialty Diagnoses / Procedures Referred By Contac t Referred To Contact XR IMAGING Diagnoses Lytic bone lesion of femur Procedures XR HIP GENERAL 3V PELV/AP/LAT RIGHT RADEX HIP UNILATERAL WITH PELVIS 2-3 VIEWS Rosas Mckinney MD [address] [place] [address] [place] [address] Referral ID Status Reason Start Date Expiration Date V isits Requested Visits Authorized [id number] Closed Auto-Generate d Referral 08/26/2022 03/28/2023 1 1 [facility] for referral (narrative)* Diagnostic Procedure Only (Routine) - Closed Specialty Diagnoses / Procedures Referred By Bry pittman Referred To Contact XR IMAGING Diagnoses Lytic bone lesion of femur Procedures XR HIP GENERAL 3V PELV/AP/LAT RIGHT RADEX HIP UNILATERAL WITH PELVIS 2-3 VIEWS Roni Dumas MD [address] [facility] [place] [address] Xr Imaging [facility] Referral ID Status Reason Start Date Expiration Date V isits Requested Visits Authorized [id number] Closed Auto-Generate d Referral 02/18/2022 03/20/2023 1 1 [facility] Reason for Referral Specialty Diagnoses / Procedures Referred By Bry pittman Referred To Contact [facility] Diagnoses Acute bilateral low back pain with bilateral sciatica Procedures CONSULT TO PHYSICAL THERAPY PHYSICAL THERAPY EVALUATION HIGH COMPLEX 45 MINS Macy Jones, PORTRAIT PHOTOGRAPHER.WALL WASHER [address] [facility] [place] [address] [facility] [address] [place] [address] Referral ID Status Reason Start Date Expiration Date Visits Requested Visits Authorized [id number] Pending Review Auto-Generat ed Referral 10/04/2021 10/04/2022 1 1 Specialty Diagnoses / Procedures Referred By Bry pittman Referred To Contact MR IMAGING Diagnoses Greater trochanteric bursitis of right hip Chronic pain of right hip Pain of right hip Bone lesion Procedures MRI HIP WO IVCON RIGHT MRI ANY JT LOWER EXTREM W/O CONTRAST MATRL Tiana Cronin PA-C [address] [place] [address] Mr Imaging [place] [address] Referral ID Status Reason Start Date Expiration Date Visits Requested Visits Authorized [id number] Authorized Auto-Generat ed Referral 02/25/2023 03/26/2024 1 [...] or prosecute any alcohol or drug abuse patient.[facility] HospitalIn the event this information is protected by the Federal Confidentiality of Alcohol and Drug Abuse Patient Records regulations: The Federal rules restrict any use of the information to criminally investigate or prosecute any alcohol or drug abuse patient.[facility] HospitalIn the event this information is protected by the Federal Confidentiality of Alcohol and Drug Abuse Patient Records regulations: The Federal rules restrict any use of the information to criminally investigate or prosecute any alcohol or drug abuse patient.[facility] HospitalIn the event this information is protected by the Federal Confidentiality of Alcohol and Drug Abuse Patient Records regulations: The Federal rules restrict any use of the information to criminally investigate or prosecute any alcohol or drug abuse patient.[facility] HospitalIn the event this information is protected by the Federal Confidentiality of Alcohol and Drug Abuse Patient Records regulations: The Federal rules restrict any use of the information to criminally investigate or prosecute any alcohol or drug abuse patient.[facility] HospitalIn the event this information is protected by the Federal Confidentiality of Alcohol and Drug Abuse Patient Records regulations: The Federal rules restrict any use of the information to criminally investigate or prosecute any alcohol or drug abuse patient.[facility] HospitalIn the event this information is protected by the Federal Confidentiality of Alcohol and Drug Abuse Patient Records regulations: The Federal rules restrict any use of the information to criminally investigate or prosecute any alcohol or drug abuse patient.[facility] HospitalIn the event this information is protected by the Federal Confidentiality of Alcohol and Drug Abuse Patient Records regulations: The Federal rules restrict any use of the information to criminally investigate or prosecute any alcohol or drug abuse patient.[facility] HospitalIn the event this information is protected by the Federal Confidentiality of Alcohol and Drug Abuse Patient Records regulations: The Federal rules restrict any use of the information to criminally investigate or prosecute any alcohol or drug abuse patient.[facility] HospitalIn the event this information is protected by the Federal Confidentiality of Alcohol and Drug Abuse Patient Records regulations: The Federal rules restrict any use of the information to criminally investigate or prosecute any alcohol or drug abuse patient.[facility] HospitalIn the event this information is protected by the Federal Confidentiality of Alcohol and Drug Abuse Patient Records regulations: The Federal rules restrict any use of the information to criminally investigate or prosecute any alcohol or drug abuse patient.[facility] HospitalIn the event this information is protected by the Federal Confidentiality of Alcohol and Drug Abuse Patient Records regulations: The Federal rules restrict any use of the information to criminally investigate or prosecute any alcohol or drug abuse patient.[facility] HospitalIn the event this information is protected by the Federal Confidentiality of Alcohol and Drug Abuse Patient Records regulations: The Federal rules restrict any use of the information to criminally investigate or prosecute any alcohol or drug abuse patient.[facility] Patient Care team informatio n (unrecognized section and content) Painter Touch Up Relationship Specialty Start Date End Date Anupama Brown DO [address] [place] [address] [place] [address] PCP - General Family Medicine 07/25/22 Emile Mesa MD [address] [place] [address] Gastroenterology 07/25/22 Guillaume Vasquez, DO [address] [place] [address] PROGRAMMER ANALYST 07/25/22 Painter Touch Up Relationship Specialty Start Date End Date Anupama Brown DO [address] [address] PCP - General Family Medicine 07/25/22 Emile Mesa MD [address] [place] [address] Gastroenterology 07/25/22 Guillaume Vasquez DO [address] [place] [address] PROGRAMMER ANALYST 07/25/22 Painter Touch Up Relationship Specialty Start Date End Date Anupama Brown DO [address] [place] [address] PCP - General Family Medicine 07/25/22 Emile Mesa MD [address] [place] [address] Gastroenterology 07/25/22 Guillaume Vasquez DO [address] [place] [address] PROGRAMMER ANALYST 07/25/22 Painter Touch Up Relationship Specialty Start Date End Date Anupama Brown, [address] [place] [address] PCP - General Family Medicine 07/25/22 Emile Mesa MD [address] [place] [address] [place] [address] Gastroenterology 07/25/22 Guillaume Vasquez DO [address] [place] [address] [place] [address] PROGRAMMER ANALYST 07/25/22 Painter Touch Up Relationship Specialty Start Date End Date Chelsea Kraus DO [address] [facility] [address] [place] [address] PCP - General Family Medicine 07/02/19 Painter Touch Up Relationship Specialty Start Date End Date Anupama Brown MD [address] [place] [id number] PCP - General Family Medicine 03/04/23 Painter Touch Up Relationship Specialty Start Date End Date Anupama Brown MD [address] [place] [id number] PCP - General Family Medicine 03/04/23 Painter Touch Up Relationship Specialty Start Date End Date Anupama Brown DO [address] [place] [address] PCP - General Family Medicine 07/25/22 Emile Mesa MD [address] [place] [address] [place] [address] Gastroenterology 07/25/22 Guillaume Vasquez DO [address] [place] [address] Personal Lines Appraiser 07/25/22 Painter Touch Up Relationship Specialty Start Date End Date KevinAnupama garcía DanielleDO [address] [facility] [place] [address] PCP - General Family Medicine 07/25/22 Emile Mesa MD [address] [place] [address] Gastroenterology 07/25/22 Guillaume Vasquez DO [address] [place] [address] Personal Lines Appraiser 07/25/22 Reason for Visit (unrecogniz ed section and content) Reason Comments New Pain Tumor/Mass Specialty Diagnoses / Procedures Referred By Contac t Referred To Contact Orthopedics Diagnoses Lytic bone lesion of femur Procedures CONSULT TO ORTHOPAEDICS OFFICE/OUTPATIENT NEW HIGH MDM 60-74 MINUTES Roni Dumas MD [address] [place] [address] [place] [address] Referral ID Status Reason Start Date Expiration Date V isits Requested Visits Authorized [id number] Closed PCP Requested Referral 02/18/2022 02/18/2023 1 1 Reason Comments New Pain Reason Comments Radio Gen RMP Specialty Diagnoses / Procedures Referred By Contac t Referred To Contact XR IMAGING Diagnoses Lytic bone lesion of femur Procedures XR HIP GENERAL 3V PELV/AP/LAT RIGHT RADEX HIP UNILATERAL WITH PELVIS 2-3 VIEWS Roni Dumas MD [address] [facility] [place] [address] [place] [address] Referral ID Status Reason Start Date Expiration Date V isits Requested Visits Authorized [id number] Closed Auto-Generate d Referral 02/17/2023 03/18/2024 1 1 Specialty Diagnoses / Procedures Referred By Contac t Referred To Contact XR IMAGING Diagnoses Lytic bone lesion of femur Procedures XR HIP GENERAL 3V PELV/AP/LAT RIGHT RADEX HIP UNILATERAL WITH PELVIS 2-3 VIEWS Rosas Mckinney MD [address] [place] [address] Xr Imaging [place] [address] Referral ID Status Reason Start Date Expiration Date V isits Requested Visits Authorized [id number] Closed Auto-Generate d Referral 08/26/2022 03/28/2023 1 1 Referral ID Status Reason Start Date Expiration Date V isits Requested Visits Authorized [id number] Closed Auto-Generate d Referral 02/18/2022 03/20/2023 1 1 INFORMATION SOURCE (unrecogn ized section and content) DATE CREATED AUTHOR [facility]/08/2022 [facility] DATE CREATED AUTHOR AUTHOR'S ORGANIZ ATION 05/26/2022 [facility] DATE CREATED AUTHOR AUTHOR'S ORGANIZ ATION 05/04/2023 [facility] DATE CREATED AUTHOR AUTHOR'S ORGANIZ ATION 06/06/2023 [facility] DATE CREATED AUTHOR AUTHOR'S ORGANIZ ATION 10/17/2023 [facility] DATE CREATED AUTHOR AUTHOR'S ORGANIZ ATION 01/15/2024 [facility] EPIC DATE CREATED AUTHOR AUTHOR'S ORGANIZ ATION 01/20/2024 [facility] FOR RECORDS PERTAINING TO PATIENTS WHO ARE [...] BE BASED ON THE PRIMARY CLINICAL RECORDS. [employer] [facility]. provides no warranty or guarantee of the accuracy or completeness of information in this document.
[2024-01-21 18:32] VITALS: BP 135/75; PULSE 101
== END 2024-01-21 19:16 | disposition home or self-care (01) ==
LOC: FBCO 07:00
PROVIDERS: Visit Provider Obstetrics & Gynecology
DX: O36.63X0 Maternal care for excessive fetal growth, third trimester, not applicable or unspecified (principal)
CPT/HCPCS: 59025

== ENCOUNTER 2024-01-24 06:26 | Outpatient (OUT) | payer OTHER, SELFPAY ==
--- OUTSIDE RECORDS SUMMARY | 2024-01-24 06:28 | XMS_ITS | CCD ---
Author Organization 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 Name Role Phone Unavailable Primary Care Provider [...] Unavailable PEDRO, DR OLIVEIRA Primary Care Unavailable VINCENNES, DR EMELIA Luna Consulting Unavailable PEDRO, DR OLIVEIRA Consulting Unavailable Chayo Anne Attending Unavailable Roxanne MOSLEY Attending Unavailable [place], Imad Unavailable Anupama Brown DO Primary Care Provider Emile Mesa MD Unavailable Guillaume Vasquez DO Unavailable Anupama Brown DO Primary Care Provider Emile Mesa MD Unavailable Chlesea Kraus DO Primary Care Provider ASIF SCHAEFER Attending Unavailable CHELSEA KRAUS Referring Unavailable CHELSEA KRAUS Primary Care Unavailable Anupama Brown MD Primary Care Provider ASIF SCHAEFER Attending Unavailable EFRA, CHELSEA Quezada Referring Unavailable EFRA, CHELSEA A Primary Care Unavailable EFRA, CHELESA A Referring Unavailable EFRA, CHELSEA A Primary [...] e PEDRO, GUILLAUME R Referring Unavailable [facility] Unavailabl e KEVIN, [facility] Primary Care Unavailabl e ELISEO SANDERSON Referring Unavailable PEDRO, GUILLAUME R Referring Unavailable [facility], [facility] Primary Care Unavailabl e PEDRO, GUILLAUME R Referring Unavailable KEVIN, [facility] Primary Care Unavailabl e KEVIN, [facility] Primary Care Unavailabl e ASIF SCHAEFER Referring Unavailable [facility], [facility] Primary Care Unavailabl e KEVIN, [facility] Primary Care Unavailabl e KEVIN, [facility] Primary Care Unavailabl e ROSAS MCKINNEY Attending Unavailable ABHYANKAR, RONI Referring Unavailable KEVIN, [facility] Primary Care Unavailabl e ABHYANKAR, RONI Referring Unavailable KEVIN, [facility] Primary Care Unavailabl e KEVIN, [facility] Primary Care Unavailabl e Medications Current Medications Medication Drug Class(es) Dates Sig (Normalized) Sig (Original) amoxicillin 500 mg oral capsule (1 source) Penicillin-class Antibacterial Start: 05-26-2022 End: 06-05-2022 take 1 capsule by mouth every twelve hours amoxicillin 500 mg Cap 500 mg = 1 cap(s), Oral, q12hr, X 10 day(s), # 20 cap(s), Refills(s) 0, Pharmacy: [facility] 1986, 172, cm, 05/26/22 9:34:00 EST, [...] Start: 09-11-2021 take 1 capsule by mo [facility] once daily in the morning omeprazole (PRILOSEC) 40 mg capsule Take 1 capsule by mouth once daily in the morning, wait 20-30 minutes before eating or taking other medications 90 capsule 1 12/31/2021 Active Comment on above: Take 1 capsule by [facility] once daily. Wait 20-30 minutes before eating or taking other medications. Take 1 capsule by mo [facility] once daily in the morning, wait 20-30 minutes before eating or taking other medications Take 1 capsule by mo [facility] once daily. 20-30 minutes before eating [...] therapy) Start: 02-11-2023 take 1 capsule by [facility] once daily in the morning amphetamine-dextroamphetamine XR [...] Comment on above: Take 1 capsule by [facility] twice daily. escitalopram 20 mg oral tablet [...] Comment on above: Take 1 tablet by [facility] once daily. fluconazole 150 mg oral tablet (8 sources) Azole Antifungal Start: 02-07-20 End: 02-26-20 take 1 tablet by mouth once fluconazole (DIFLUCAN) 150 mg tablet 1 (one) tablet by mouth one time dose 1 tablet 1 02/06/2022 02/25/2023 Discontinued Comment on above: 1 (one) tablet by [facility] one time dose hydrOXYzine hydrochloride 50 mg [...] Comment on above: Take 1 tablet by [facility] three times daily as needed. 10 ml [...] 01-19-2024 Basophils (Bld) [#/Vol] 10*3/uL Normal <0.11 [facility] Comment on above: Order Comment: Speci men Type: BLOOD SPECIMEN Ordering Facility: External Submitter Address: , , Performed By: #### 5 5454-3 #### [facility] CLIA [id number] [address] [place] [address] [place] Basophils/100 WBC (Bld) 0.2 % Normal [facility] Comment on above: Order Comment: Speci men Type: BLOOD SPECIMEN Ordering Facility: External Submitter Address: , , Performed By: #### 5 5454-3 #### [facility] CLIA [id number] [address] [place] [address] [place] Differential cell count method Nom (Bld) Auto Normal [facility] Comment on above: Order Comment: Speci men Type: BLOOD SPECIMEN Ordering Facility: External Submitter Address: , , Performed By: #### 5 5454-3 #### [facility] CLIA [id number] [address] [place] [address] [place] Eosinophils (Bld) [#/Vol] 0.06 10*3/uL Normal <0.46 [facility] Comment on above: Order Comment: Speci men Type: BLOOD SPECIMEN Ordering Facility: External Submitter Address: , , Performed By: #### 5 5454-3 #### [facility] CLIA [id number] [address] [place] [address] [place] Eosinophils/100 WBC (Bld) 0.6 % Normal [facility] Comment on above: Order Comment: Speci men Type: BLOOD SPECIMEN Ordering Facility: External Submitter Address: , , Performed By: #### 5 5454-3 #### [facility] CLIA [id number] [address] [place] [address] [place] Erythrocyte distribution width (RBC) [Ratio] 13.3 % Normal 11.5-15.0 [facility] Comment on above: Order Comment: Speci men Type: BLOOD SPECIMEN Ordering Facility: External Submitter Address: , , Performed By: #### 5 5454-3 #### [facility] CLIA [id number] [address] [place] [address] [place] Hematocrit (Bld) [Volume fraction] 32.8 % Low 36.0-46.0 [facility] Comment on above: Order Comment: Speci men Type: BLOOD SPECIMEN Ordering Facility: External Submitter Address: , , Performed By: #### 5 5454-3 #### [facility] CLIA [id number] [address] [place] [address] [place] Hemoglobin (Bld) [Mass/Vol] 10.7 g/dL Low 11.5-15.5 [facility] Comment on above: Order Comment: Speci men Type: BLOOD SPECIMEN Ordering Facility: External Submitter Address: , , Performed By: #### 5 5454-3 #### [facility] CLIA [id number] [address] [place] [address] [place] Immature granulocytes (Bld) [#/Vol] 0.05 10*3/uL Normal <0.10 [facility] Comment on above: Order Comment: Speci men Type: BLOOD SPECIMEN Ordering Facility: External Submitter Address: , , Performed By: #### 5 5454-3 #### [facility] CLIA [id number] [address] [place] [address] [place] Immature granulocytes/100 WBC (Bld) 0.5 % Normal [facility] Comment on above: Order Comment: Speci men Type: BLOOD SPECIMEN Ordering Facility: External Submitter Address: , , Performed By: #### 5 5454-3 #### [facility] CLIA [id number] [address] [place] [address] [place] Lymphocytes (Bld) [#/Vol] 1.55 10*3/uL Normal 1.00-4.00 [facility] Comment on above: Order Comment: Speci men Type: BLOOD SPECIMEN Ordering Facility: External Submitter Address: , , Performed By: #### 5 5454-3 #### [facility] CLIA [id number] [address] [place] [address] [place] Lymphocytes/100 WBC (Bld) 15.1 % Normal [facility] Comment on above: Order Comment: Speci men Type: BLOOD SPECIMEN Ordering Facility: External Submitter Address: , , Performed By: #### 5 5454-3 #### [facility] CLIA [id number] [address] [place] [address] [place] MCH (RBC) [Entitic mass] 27.8 pg Normal 26.0-34.0 [facility] Comment on above: Order Comment: Speci men Type: BLOOD SPECIMEN Ordering Facility: External Submitter Address: , , Performed By: #### 5 5454-3 #### [facility] CLIA [id number] [address] [place] [address] [place] MCHC (RBC) [Mass/Vol] 32.6 g/dL Normal 30.5-36.0 [facility] Comment on above: Order Comment: Speci men Type: BLOOD SPECIMEN Ordering Facility: External Submitter Address: , , Performed By: #### 5 5454-3 #### [facility] CLIA [id number] [address] [place] [address] [place] MCV (RBC) [Entitic vol] 85.2 fL Normal 80.0-100.0 [facility] Comment on above: Order Comment: Speci men Type: BLOOD SPECIMEN Ordering Facility: External Submitter Address: , , Performed By: #### 5 5454-3 #### [facility] CLIA [id number] [address] [place] [address] [place] Monocytes (Bld) [#/Vol] 0.77 10*3/uL Normal <0.87 [facility] Comment on above: Order Comment: Speci men Type: BLOOD SPECIMEN Ordering Facility: External Submitter Address: , , Performed By: #### 5 5454-3 #### [facility] CLIA [id number] [address] [place] [address] [place] Monocytes/100 WBC (Bld) 7.5 % Normal [facility] Comment on above: Order Comment: Speci men Type: BLOOD SPECIMEN Ordering Facility: External Submitter Address: , , Performed By: #### 5 5454-3 #### [facility] CLIA [id number] [address] [place] [address] [place] Neutrophils (Bld) [#/Vol] 7.81 10*3/uL High 1.45-7.50 [facility] Comment on above: Order Comment: Speci men Type: BLOOD SPECIMEN Ordering Facility: External Submitter Address: , , Performed By: #### 5 5454-3 #### [facility] CLIA [id number] [address] [place] [address] [place] Neutrophils/100 WBC (Bld) 76.1 % Normal [facility] Comment on above: Order Comment: Speci men Type: BLOOD SPECIMEN Ordering Facility: External Submitter Address: , , Performed By: #### 5 5454-3 #### [facility] CLIA [id number] [address] [place] [address] [place] Nucleated RBC (Bld) [#/Vol] 10*3/uL Normal <0.01 [facility] Comment on above: Order Comment: Speci men Type: BLOOD SPECIMEN Ordering Facility: External Submitter Address: , , Performed By: #### 5 5454-3 #### [facility] CLIA [id number] [address] [place] [address] [place] Nucleated RBC/100 WBC (Bld) [Ratio] 0.0 /100 WBC Normal [facility] Comment on above: Order Comment: Speci men Type: BLOOD SPECIMEN Ordering Facility: External Submitter Address: , , Performed By: #### 5 5454-3 #### [facility] CLIA [id number] [address] [place] [address] [place] Platelet mean volume (Bld) [Entitic vol] 11.3 fL Normal 9.0-12.7 [facility] Comment on above: Order Comment: Speci men Type: BLOOD SPECIMEN Ordering Facility: External Submitter Address: , , Performed By: #### 5 5454-3 #### [facility] CLIA [id number] [address] [place] [address] [place] Platelets (Bld) [#/Vol] 172 10*3/uL Normal 150-400 [facility] Comment on above: Order Comment: Speci men Type: BLOOD SPECIMEN Ordering Facility: External Submitter Address: , , Performed By: #### 5 5454-3 #### [facility] CLIA [id number] [address] [place] [address] [place] RBC (Bld) [#/Vol] 3.85 10*6/uL Low 3.90-5.20 [facility] Comment on above: Order Comment: Speci men Type: BLOOD SPECIMEN Ordering Facility: External Submitter Address: , , Performed By: #### 5 5454-3 #### [facility] CLIA [id number] [address] [place] [address] [place] WBC (Bld) [#/Vol] 10.26 10*3/uL Normal 3.70-11.00 [facility] Comment on above: Order Comment: Speci men Type: BLOOD SPECIMEN Ordering Facility: External Submitter Address: , , Performed By: #### 5 5454-3 #### [facility] CLIA [id number] [address] [place] [address] [place] T4 Free SerPl-mCncon 024 Free T4 [Mass/Vol] 0.9 ng/dL Normal 0.9-1.7 [facility] Comment on above: Order Comment: Speci men Type: BLOOD SPECIMEN Ordering Facility: [facility] Address: [facility] [address] [place] [address] Performed By: #### 3 024-7, 3016-3 #### [facility] CLIA [id number] [address] [place] [id number] [place] TSH SerPl-aCncon 01-05-2024 TSH Qn 1.220 m[IU]/L Normal 0.270-4.200 [facility] Comment on above: Order Comment: Speci men [...] Nassar, et al. 2017 Guidelines of the [employer] Thy[employer] Association for the Diagnosis and Management of Thyroid Disease during and the . Thyroid, 2017:27:3:315-389. Performed By: #### 5 5454-3 #### [facility] CLIA [id number] [address] [place], [place] [address] [place] T4 Free SerPl-mCncon 024 Free T4 [Mass/Vol] 1.1 ng/dL Normal 0.9-1.7 [facility] Comment on above: Order Comment: Speci men Type: BLOOD SPECIMEN Ordering Facility: [facility] [facility] [place] Address: [facility] [address] [address] Performed By: #### 3 024-7, 3016-3 #### [facility] CLIA [id number] [address] [place], [place] [address] [place] TSH SerPl-aCncon 12-08-2023 TSH Qn 0.607 m[IU]/L Normal 0.270-4.200 [facility] Comment on above: Order Comment: Speci men Type: BLOOD SPECIMEN Ordering Facility: [facility] [place] Address: [address] [place] [address] Result Comment: If t he patient is , TSH reference range varies by gestational period: First Trimester (weeks 9-12): 0.180-2.990 mIU/L Second Trimester: 0.110-3.980 mIU/L Third Trimester: 0.480-4.710 mIU/L Manule Grayson et al. A Practical Approach for the Verifications and Determination of Site- and Trimester-Specific Reference Intervals for Thyroid Function tests in . Thyroid, 2019:29:3:412-420. Emanuel Nassar, et al. 2017 Guidelines of the [employer] Thy[employer] Association for the Diagnosis and Management of Thyroid Disease during and the . Thyroid, 2017:27:3:315-389. Performed By: #### 3 024-7, 3016-3 #### [facility] CLIA [id number] [address] [place] [address] [place] CBC W Auto Differential pane l (Bld)on 11-20-2023 Basophils (Bld) [#/Vol] 0.04 10*3/uL Normal <0.11 [facility] Comment on above: Order Comment: Speci men Type: BLOOD SPECIMEN Ordering Facility: [facility] [place] Address: [address] [place] [address] Performed By: #### 5 7021-8 #### [facility] CLIA [id number] [address] [place] [address] Basophils/100 WBC (Bld) 0.6 % Normal [facility] Comment on above: Order Comment: Speci men Type: BLOOD SPECIMEN Ordering Facility: [facility] [place] Address: [address] [place] [address] Performed By: #### 5 7021-8 #### [facility] CLIA [id number] [address] [place] [address] Differential cell count method Nom (Bld) Auto Normal [facility] Comment on above: Order Comment: Speci men Type: BLOOD SPECIMEN Ordering Facility: [facility] [place] Address: [address] [place] [id number] Performed By: #### 5 7021-8 #### [facility] CLIA [id number] [address] [place] [address] Eosinophils (Bld) [#/Vol] 0.05 10*3/uL Normal <0.46 [facility] Comment on above: Order Comment: Speci men Type: BLOOD SPECIMEN Ordering Facility: [facility] [place] Address: [facility] [place] [place] [address] Performed By: #### 5 7021-8 #### [facility] CLIA [id number] [address] [place] [address] Eosinophils/100 WBC (Bld) 0.7 % Normal [facility] Comment on above: Order Comment: Speci men Type: BLOOD SPECIMEN Ordering Facility: [facility] [place] Address: [facility] [place] [address] Performed By: #### 5 7021-8 #### [facility] CLIA [id number] [address] [place] [address] Erythrocyte distribution width (RBC) [Ratio] 12.9 % Normal 11.5-15.0 [facility] Comment on above: Order Comment: Speci men Type: BLOOD SPECIMEN Ordering Facility: [facility] Address: [facility] [address] [place] [id number] Performed By: #### 5 7021-8 #### [facility] CLIA [id number] [address] [place] [address] Hematocrit (Bld) [Volume fraction] 35.0 % Low 36.0-46.0 [facility] Comment on above: Order Comment: Speci men Type: BLOOD SPECIMEN Ordering Facility: [facility] [place] Address: [facility] [address] [place] [id number] Performed By: #### 5 7021-8 #### [facility] CLIA [id number] [address] [place] [address] Hemoglobin (Bld) [Mass/Vol] 11.4 g/dL Low 11.5-15.5 [facility] Comment on above: Order Comment: Speci men Type: BLOOD SPECIMEN Ordering Facility: [facility] [place] Address: [address] [place] [address] Performed By: #### 5 7021-8 #### [facility] CLIA [id number] [address] [place] [address] Immature granulocytes (Bld) [#/Vol] 10*3/uL Normal <0.10 [facility] Comment on above: Order Comment: Speci men Type: BLOOD SPECIMEN Ordering Facility: [facility] [place] Address: [address] [place] [address] Performed By: #### 5 7021-8 #### [facility] CLIA [id number] [address] [place] [address] Immature granulocytes/100 WBC (Bld) 0.3 % Normal [facility] Comment on above: Order Comment: Speci men Type: BLOOD SPECIMEN Ordering Facility: [facility] [place] Address: [address] [place] [address] Performed By: #### 5 7021-8 #### [facility] CLIA [id number] [address] [place] [address] Lymphocytes (Bld) [#/Vol] 1.25 10*3/uL Normal 1.00-4.00 [facility] Comment on above: Order Comment: Speci men Type: BLOOD SPECIMEN Ordering Facility: [facility] [place] Address: [address] [place] [address] Performed By: #### 5 7021-8 #### [facility] CLIA [id number] [address] [place] [address] Lymphocytes/100 WBC (Bld) 18.3 % Normal [facility] Comment on above: Order Comment: Speci men Type: BLOOD SPECIMEN Ordering Facility: [facility] [place] Address: [address] [place] [address] Performed By: #### 5 7021-8 #### [facility] CLIA [id number] [address] [place] [address] MCH (RBC) [Entitic mass] 29.9 pg Normal 26.0-34.0 [facility] Comment on above: Order Comment: Speci men Type: BLOOD SPECIMEN Ordering Facility: [facility] [place] Address: [facility] [place] [address] Performed By: #### 5 7021-8 #### [facility] CLIA [id number] [address] [place] [address] MCHC (RBC) [Mass/Vol] 32.6 g/dL Normal 30.5-36.0 [facility] Comment on above: Order Comment: Speci men Type: BLOOD SPECIMEN Ordering Facility: [facility] [facility] [place] Address: [facility] [address] [place] [id number] Performed By: #### 5 7021-8 #### [facility] CLIA [id number] [address] [place] [address] MCV (RBC) [Entitic vol] 91.9 fL Normal 80.0-100.0 [facility] Comment on above: Order Comment: Speci men Type: BLOOD SPECIMEN Ordering Facility: [facility] Address: [facility] [address] [place] [id number] Performed By: #### 5 7021-8 #### [facility] CLIA [id number] [address] [place] [address] Monocytes (Bld) [#/Vol] 0.52 10*3/uL Normal <0.87 [facility] Comment on above: Order Comment: Speci men Type: BLOOD SPECIMEN [facility] Address: [facility] [address] [place] [id number] Performed By: #### 5 7021-8 #### [facility] CLIA [id number] [address] [place] [address]644 Monocytes/100 WBC (Bld) 7.6 % Normal [facility] Comment on above: Order Comment: Speci men Type: BLOOD SPECIMEN Ordering Facility: [facility] [facility] [place] Address: [address] [place] [address] Performed By: #### 5 7021-8 #### [facility] CLIA [id number] [address] [place] [address]65 Neutrophils (Bld) [#/Vol] 4.94 10*3/uL Normal 1.45-7.50 [facility] Comment on above: Order Comment: Speci men Type: BLOOD SPECIMEN Ordering Facility: [facility] [facility] [place] Address: [address] [place] [address] Performed By: #### 5 7021-8 #### [facility] CLIA [id number] [address] [place] [address]237 Neutrophils/100 WBC (Bld) 72.5 % Normal [facility] Comment on above: Order Comment: Speci men Type: BLOOD SPECIMEN Ordering Facility: [facility] [facility] [place] Address: [address] [place] [address] Performed By: #### 5 7021-8 #### [facility] CLIA [id number] [address] [place] [address]3693 Nucleated RBC (Bld) [#/Vol] 10*3/uL Normal <0.01 [facility] Comment on above: Order Comment: Speci men Type: BLOOD SPECIMEN Ordering Facility: [facility] [facility] [place] Address: [address] [place] [address] Performed By: #### 5 7021-8 #### [facility] CLIA [id number] [address] [place] [address]346 Nucleated RBC/100 WBC (Bld) [Ratio] 0.0 /100 WBC Normal [facility] Comment on above: Order Comment: Speci men Type: BLOOD SPECIMEN Ordering Facility: [facility] Address: [address] [place] [address] Performed By: #### 5 7021-8 #### [facility] CLIA [id number] [address] [place] [address]207 Platelet mean volume (Bld) [Entitic vol] 11.4 fL Normal 9.0-12.7 [facility] Comment on above: Order Comment: Speci men Type: BLOOD SPECIMEN [facility] Address: [facility] [place] [address] Performed By: #### 5 7021-8 #### [facility] CLIA [id number] [address] [place] [address]182 Platelets (Bld) [#/Vol] 167 10*3/uL Normal 150-400 [facility] Comment on above: Order Comment: Speci men Type: BLOOD SPECIMEN Ordering Facility: [facility] [place] Address: [facility] [place] [address] Performed By: #### 5 7021-8 #### [facility] CLIA [id number] [address] [place] [address] 18765 RBC (Bld) [#/Vol] 3.81 10*6/uL Low 3.90-5.20 [facility] Comment on above: Order Comment: Speci men Type: BLOOD SPECIMEN Ordering Facility[facility] Address: [facility] [address] [address] Performed By: #### 5 7021-8 #### [facility] CLIA [id number] [address] [place] [address] 77791 WBC (Bld) [#/Vol] 6.82 10*3/uL Normal 3.70-11.00 [facility] Comment on above: Order Comment: Speci men Type: BLOOD SPECIMEN [facility] Address: [facility] [address] [address] Performed By: #### 5 7021-8 #### [facility] CLIA [id number] [address] [place] [address] 44396 GESTATIONAL GLUCOSE SCREEN, 1-HOUR, 50 GRAM, NON-FASTINGon 11-20-2023 Glucose [Mass/Vol] 97 mg/dL Normal 74-134 [facility] Comment on above: Order Comment: Tammy mares Type: BLOOD SPECIMEN Ordering Facility: [facility] [facility] [place] Address: [facility] [address] [address] Result Comment: [facility] Congress of Obstetricians and Gynecologists (Alma/Adrián) guidelines state a gestational diabetes mellitus positive screen is made, in women not previously diagnosed with overt diabetes, when the 1 hr plasma glucose level is equal to or above 140 mg/dL. The [facility] [place] recommends a 135 mg/dL cutoff. Performed By: #### G LTGST #### [facility] CLIA [id number] [address] [place] [address] [place] T4 Free SerPl-mCncon 024 Free T4 [Mass/Vol] 1.0 ng/dL Normal 0.9-1.7 [facility] Comment on above: Order Comment: Tammy mares Type: BLOOD SPECIMEN Ordering Facility: [facility] Address: [facility] [place] [place] [address] Performed By: #### 3 024-7, 3016-3 #### [facility] CLIA [id number] [address] [place] [address] [place] TSH SerPl-aCncon 10-22-2023 TSH Qn 4.510 m[IU]/L High 0.270-4.200 [facility] Comment on above: Order Comment: Tammy mares Type: BLOOD SPECIMEN Ordering Facility: [facility] Address: [facility] [place] [address] Result Comment: If t he patient is , TSH reference range varies by gestational period: First Trimester (weeks 9-12): 0.180-2.990 mIU/L Second Trimester: 0.110-3.980 mIU/L Third Trimester: 0.480-4.710 mIU/L Manuel Grayson et al. A Practical Approach for the Verifications and Determination of Site- and Trimester-Specific Reference Intervals for Thyroid Function tests in . Thyroid, 2019:29:3:412-420. Emanuel Nassar, et al. 2017 Guidelines of the [place] Thyroid Association for the Diagnosis and Management of Thyroid Disease during and the . Thyroid, 2017:27:3:315-389. Performed By: #### 3 024-7, 3016-3 #### [facility] CLIA [id number] [facility] [place] [address] [place] CBC W Auto Differential pane l (Bld)on 08-08-2023 Basophils (Bld) [#/Vol] 10*3/uL Normal <0.11 [facility] Comment on above: Order Comment: Speci men Type: BLOOD SPECIMEN Ordering Facility: [facility] Address: , , Performed By: #### 5 7021-8 #### [facility] CLIA [id number] [address] [place] [address] 26403 Basophils/100 WBC (Bld) 0.3 % Normal [facility] Comment on above: Order Comment: Speci men Type: BLOOD SPECIMEN Ordering Facility: [facility] Address: , , Performed By: #### 5 7021-8 #### [facility] CLIA [id number] [address] [place] [address] 74831 Differential cell count method Nom (Bld) Auto Normal [facility] Comment on above: Order Comment: Speci men Type: BLOOD SPECIMEN Ordering Facility: [facility] Address: , , Performed By: #### 5 7021-8 #### [facility] CLIA [id number] [address] [place] [address] 79126 Eosinophils (Bld) [#/Vol] 0.06 10*3/uL Normal <0.46 [facility] Comment on above: Order Comment: Speci men Type: BLOOD SPECIMEN Ordering Facility: [facility] Address: , , Performed By: #### 5 7021-8 #### [facility] CLIA [id number] [address] [place] [address] 84641 Eosinophils/100 WBC (Bld) 0.9 % Normal [facility] Comment on above: Order Comment: Speci men Type: BLOOD SPECIMEN Ordering Facility: [facility] Address: , , Performed By: #### 5 7021-8 #### [facility] CLIA [id number] [address] [place] [address] 42037 Erythrocyte distribution width (RBC) [Ratio] 13.7 % Normal 11.5-15.0 [facility] Comment on above: Order Comment: Speci men Type: BLOOD SPECIMEN Ordering Facility: [facility] Address: , , Performed By: #### 5 7021-8 #### [facility] CLIA [id number] [address] [place] [address] 34137 Hematocrit (Bld) [Volume fraction] 40.1 % Normal 36.0-46.0 [facility] Comment on above: Order Comment: Speci men Type: BLOOD SPECIMEN Ordering Facility: External [facility] Address: , , Performed By: #### 5 7021-8 #### [facility] CLIA [id number] [address] [place] [address] 88669 Hemoglobin (Bld) [Mass/Vol] 13.4 g/dL Normal 11.5-15.5 [facility] Comment on above: Order Comment: Speci men Type: BLOOD SPECIMEN Ordering Facility: [facility] Address: , , Performed By: #### 5 7021-8 #### [facility] CLIA [id number] [address] [place] [address] 06893 Immature granulocytes (Bld) [#/Vol] 10*3/uL Normal <0.10 [facility] Comment on above: Order Comment: Speci men Type: BLOOD SPECIMEN Ordering Facility: [facility] Address: , , Performed By: #### 5 7021-8 #### [facility] CLIA [id number] [address] [place] [address] 51771 Immature granulocytes/100 WBC (Bld) 0.3 % Normal [facility] Comment on above: Order Comment: Speci men Type: BLOOD SPECIMEN Ordering Facility: [facility] Address: , , Performed By: #### 5 7021-8 #### [facility] CLIA [id number] [address] [place] [address] 62269 Lymphocytes (Bld) [#/Vol] 1.67 10*3/uL Normal 1.00-4.00 [facility] Comment on above: Order Comment: Speci men Type: BLOOD SPECIMEN Ordering Facility: [facility] Address: , , Performed By: #### 5 7021-8 #### [facility] CLIA [id number] [address] [place] [address] 46146 Lymphocytes/100 WBC (Bld) 24.9 % Normal [facility] Comment on above: Order Comment: Speci men Type: BLOOD SPECIMEN Ordering Facility: [facility] Address: , , Performed By: #### 5 7021-8 #### [facility] CLIA [id number] [address] [place] [address] 36474 MCH (RBC) [Entitic mass] 31.1 pg Normal 26.0-34.0 [facility] Comment on above: Order Comment: Speci men Type: BLOOD SPECIMEN Ordering Facility: [facility] Address: , , Performed By: #### 5 7021-8 #### [facility] CLIA [id number] [address] [place] [address] 09777 MCHC (RBC) [Mass/Vol] 33.4 g/dL Normal 30.5-36.0 [facility] Comment on above: Order Comment: Speci men Type: BLOOD SPECIMEN Ordering Facility: [facility] Address: , , Performed By: #### 5 7021-8 #### [facility] CLIA [id number] [address] [place] [address] 92363 MCV (RBC) [Entitic vol] 93.0 fL Normal 80.0-100.0 [facility] Comment on above: Order Comment: Speci men Type: BLOOD SPECIMEN Ordering Facility: [facility] Address: , , Performed By: #### 5 7021-8 #### [facility] CLIA [id number] [address] [place] [address] 58228 Monocytes (Bld) [#/Vol] 0.50 10*3/uL Normal <0.87 [facility] Comment on above: Order Comment: Speci men Type: BLOOD SPECIMEN Ordering Facility: [facility] Address: , , Performed By: #### 5 7021-8 #### [facility] CLIA [id number] [address] [place] [address] Monocytes/100 WBC (Bld) 7.5 % Normal [facility] Comment on above: Order Comment: Speci men Type: BLOOD SPECIMEN Ordering Facility: [facility] Address: , , Performed By: #### 5 7021-8 #### [facility] CLIA [id number] [address] [place] [address] 85710 Neutrophils (Bld) [#/Vol] 4.44 10*3/uL Normal 1.45-7.50 [facility] Comment on above: Order Comment: Speci men Type: BLOOD SPECIMEN Ordering Facility: [facility] Address: , , Performed By: #### 5 7021-8 #### [facility] CLIA [id number] [address] [place] [address] 84008 Neutrophils/100 WBC (Bld) 66.1 % Normal [facility] Comment on above: Order Comment: Speci men Type: BLOOD SPECIMEN Ordering Facility: [facility] Address: , , Performed By: #### 5 7021-8 #### [facility] CLIA [id number] [address] [place] [address] 38306 Nucleated RBC (Bld) [#/Vol] 10*3/uL Normal <0.01 [facility] Comment on above: Order Comment: Speci men Type: BLOOD SPECIMEN Ordering Facility: [facility] Address: , , Performed By: #### 5 7021-8 #### [facility] CLIA [id number] [address] [place] [address] 17924 Nucleated RBC/100 WBC (Bld) [Ratio] 0.0 /100 WBC Normal [facility] Comment on above: Order Comment: Speci men Type: BLOOD SPECIMEN Ordering Facility: [facility] Address: , , Performed By: #### 5 7021-8 #### [facility] CLIA [id number] [address] [place] [address] 00642 Platelet mean volume (Bld) [Entitic vol] 12.1 fL Normal 9.0-12.7 [facility] Comment on above: Order Comment: Speci men Type: BLOOD SPECIMEN Ordering Facility: External [facility]mitter Address: , , Performed By: #### 5 7021-8 #### [facility] CLIA [id number] [address] [place] [address] 90645 Platelets (Bld) [#/Vol] 148 10*3/uL Low 150-400 [facility] Comment on above: Order Comment: Speci men Type: BLOOD SPECIMEN Ordering Facility: [facility] Address: , , Performed By: #### 5 7021-8 #### [facility] IA [id number] [address] [place] [address] 04244 RBC (Bld) [#/Vol] 4.31 10*6/uL Normal 3.90-5.20 [facility] Comment on above: Order Comment: Speci men Type: BLOOD SPECIMEN Ordering Facility: External [facility]mitter Address: , , Performed By: #### 5 7021-8 #### [facility] IA [id number] [address] [place] [address] 81904 WBC (Bld) [#/Vol] 6.71 10*3/uL Normal 3.70-11.00 [facility] Comment on above: Order Comment: Speci men Type: BLOOD SPECIMEN Ordering Facility: External [facility]mitter Address: , , Performed By: #### 5 7021-8 #### [facility] IA [id number] [address] [place] [address] 15981 HBV surface Ag Ser Qlon 04- HBV surface Ag Ql (S) Negative Normal Negative [facility] Comment on above: Order Comment: Speci men Type: BLOOD SPECIMEN Ordering Facility: External [facility] Address: , , Performed By: #### 5 5454-3 #### [facility] CLIA [id number] [address] [place] [address] [place] HCV Ab Ser Qlon 08-08-2023 HCV Ab Ql (S) Negative Normal Negative [facility] Comment on above: Order Comment: Speci vishnu Type: BLOOD SPECIMEN Ordering Facility: External [facility] Address: , , Result Comment: The result suggests no evidence of active infection with Hepatitis C virus. Should recent infection be suspected, repeat testing may be considered 4-6 weeks after this draw. Performed By: #### 1 6128-1 #### [facility] CLIA [id number] [address] [place] [address] [facility] [place] HIV 1+2 Ab IA Qlon HIV 1 and 2 Ab IA.rapid Nom (S/P/Bld) Normal [facility] Comment on above: Order Comment: Speci vishnu Type: BLOOD SPECIMEN Ordering Facility: External [facility] Address: , , Result Comment: Test not indicated. Performed By: #### 5 5454-3 #### [facility] CLIA [id number] [address] [place] [address] OF [place] HIV 1+2 Ab+HIV1 p24 Ag IA Ql Non-Reactive Normal Nonreactive [facility] Comment on above: Order Comment: Speci vishnu Type: BLOOD SPECIMEN Ordering Facility: External Submitter Address: , , Performed By: #### 5 5454-3 #### [facility] CLIA [id number] [address] [place] [address] [place] HIV immunoassay testing algorithm interpretation (S/P/Bld) [Interp] Normal [facility] Comment on above: Order Comment: Speci vishnu Type: BLOOD SPECIMEN Ordering Facility: External Submitter Address: , , Result Comment: No e vidence of HIV-1 or HIV-2 infection. Should recent infection be suspected, repeat testing may be considered 2-3 weeks after this draw. [place] Rev. Code 3701.243(E): This information has been [...] diagnoses. Performed By: #### 5 5454-3 #### [facility] CLIA [id number] [address] [place] [address] [place] [facility] HbA1c (Bld)on 08-08-2023 Average glucose Estimated from glycated hemoglobin (Bld) [Mass/Vol] 105 mg/dL Normal [facility] Comment on above: Order Comment: Tammy mares Type: BLOOD SPECIMEN Ordering Facility: External [facility] Address: , , Result Comment: eAG: (Estimated average glucose) is a calculated value from HgbA1c and is sales representative consultant of the average blood glucose level in the last 2-3 month period. Performed By: #### 5 5454-3 #### [facility] CLIA [id number] [address] [place] [address] STATES OF [facility] HbA1c (Bld) [Mass fraction] 5.3 % Normal 4.3-5.6 [facility] Comment on above: Order Comment: Tammy mares [...] diabetes. Performed By: #### 5 5454-3 #### [facility] CLIA [id number] [address] [place] [address] [place] RPR Ser Qlon 08-08-2023 Reagin Ab RPR Ql (S) Non-Reactive Normal Nonreactive [facility] Comment on above: Order Comment: Speci men Type: BLOOD SPECIMEN Ordering Facility: [facility] [facility] [place] Address: [address] [place], [place] [address] [place] [address] Result Comment: Rapi d plasma reagin (RPR) test detects non-treponemal antibodies. RPR may be reactive in a variety of infectious and non-infectious conditions. Correlation with clinical picture and with treponemal antibody results is required for final interpretation. Performed By: #### 3 024-7, 3016-3 #### [facility] CLIA [id number] [address] OF [place] RUBELLA IGG ANTIBODYon 08-07 RUBELLA IGG AB, QUAL Positive Normal Positive [facility] Comment on above: Order Comment: Speci men Type: BLOOD SPECIMEN Ordering Facility: [facility] [facility] [place] Address: [address] [place] [address] [place] [address] Result Comment: The result suggests recent or past exposure to Rubella virus or history of Rubella vaccination. Positive result may also be seen due to presence of passively-transferred antibodies. Please correlate with patient's history. Performed By: #### 3 024-7, 3016-3 #### [facility] CLIA [id number] [address] STATES [place] TYPE + SCREENon 08-08-2023 ABO A Normal [facility] Comment on above: Order Comment: Speci men Type: BLOOD SPECIMEN Ordering Facility: External Submitter Address: , , Performed By: #### T SCR #### [facility] CLIA [id number] [address] [place] [address] [place] HISTORICAL AB SCR STATUS Negative Normal [facility] Comment on above: Order Comment: Speci men Type: BLOOD SPECIMEN Ordering Facility: External [facility] Address: , , Performed By: #### T SCR #### [facility] CLIA [id number] [address] [place] [address] [place] Rh Nom (Bld) Positive Normal [facility] Comment on above: Order Comment: Speci men Type: BLOOD SPECIMEN Ordering Facility: External Submitter Address: , , Performed By: #### T SCR #### [facility] CLIA [id number] [address] [place] [id number] [facility] OF [place] TYPE AND SCREEN EXPIRATION 08/11/2023 23:59 Normal [facility] Comment on above: Order Comment: Tammy mares Type: BLOOD SPECIMEN Ordering Facility: External Submitter Address: , , Performed By: #### T SCR #### [facility] CLIA [id number] [address] OF [place] B-HCG SerPl-aCncon 4 HCG.beta subunit Qn m[IU]/mL Normal <5.0 [facility] Comment on above: Order Comment: Tammy mares Type: BLOOD SPECIMEN Ordering Facility: External [facility] Address: , , Result Comment: Dianne logan Performed By: #### 5 5454-3 #### [facility] CLIA [id number] [address] OF [place] CNPBritt 05-16-2023 CNPN Telephone (HEMASA) JESSEE ALMODOVAR ([id number]) 1990 [facility] Date Time Provider Department 05/16/23 RONI DUMAS During your visit today, we recorded the following information about you: Allergies As of Date: 05/16/2023 (No Known Allergies) Date Reviewed: 04/11/2023 Reviewed by: Macy Jones APRN.ANNEALING OPERATOR - Fully Assessed Reason for Visit: Lab Orders [1688] Primary Visit Diagnosis:Possible , not confirmed [Z32.00] Order(s):HCG QUANTITATIVE [SQHCGQT] Order #: [id number] FUTURE Prescriptions as of 05/16/2023 - doxycycline [...] Status:Closed by RONI DUMAS on 05/16/23 Normal [facility] TOX SCREEN ROUT URon 024 Amphetamines Confirm (U) [Mass/Vol] Negative Normal Negative [facility] Comment on above: Order Comment: Speci men Type: BLOOD SPECIMEN Ordering Facility: [facility] [facility] [place] Address: [facility] [address] [place] [address] Result Comment: Cuto ff threshold at 1000 ng/mL. Performed By: #### 3 024-7, 3016-3 #### [facility] CLIA [id number] [address] [place] [address] [place] BARBITURATES, URINE Negative Normal Negative [facility] Comment on above: Order Comment: Speci men Type: BLOOD SPECIMEN Ordering Facility: [facility] [facility] [place] Address: [facility] [address] [place] [address] Result Comment: Cuto ff threshold at 200 ng/mL. Performed By: #### 3 024-7, 3016-3 #### [facility] CLIA [id number] [address] [place] [address] [place] BENZODIAZEPINES, UR Negative Normal Negative [facility] Comment on above: Order Comment: Speci men Type: BLOOD SPECIMEN Order[facility] Address: [facility] [address] [place] [address] Result Comment: Cuto ff threshold at 200 ng/mL. Performed By: #### 3 024-7, 3016-3 #### [facility] CLIA [id number] [address] [place], [place] [address] [place] Cannabinoids Screen Ql (U) Negative Normal Negative [facility] Comment on above: Order Comment: Speci men Type: BLOOD SPECIMEN Ordering Facility: [facility] Address: [facility] [address] [place] [address] Result Comment: Cuto ff threshold at 50 ng/mL. Performed By: #### 3 024-7, 3016-3 #### [facility] CLIA [id number] [address] [place] [address] [place] Cocaine Ql (U) Negative Normal Negative [facility] Comment on above: Order Comment: Speci men Type: BLOOD SPECIMEN Ordering Facility: [facility] [facility] [place] Address: [facility] [address] [place] [address] Result Comment: Cuto ff threshold at 300 ng/mL. Performed By: #### 3 024-7, 3015-3 #### [facility] CLIA [id number] [address] [place] [address] [place] Ethanol (U) [Mass/Vol] <11 Normal <11 [facility] Comment on above: Order Comment: Speci men Type: BLOOD SPECIMEN Ordering Facility: [facility] Address: [facility] [address] [place] [address] Performed By: #### 3 024-7, 3015-3 #### [facility] CLIA [id number] [address] [place] [address] [place] Opiates Screen Ql (U) Negative Normal Negative [facility] Comment on above: Order Comment: Speci men Type: BLOOD SPECIMEN Ordering Facility: [facility] Address: [facility] [address] [place] [address] Result Comment: Cuto ff threshold at 300 ng/mL. Performed By: #### 3 024-7, 3015-3 #### [facility] CLIA [id number] [address] [address] [place] oxyCODONE cutoff Screen (U) [Mass/Vol] Negative Normal Negative [facility] Comment on above: Order Comment: Speci men Type: BLOOD SPECIMEN Ordering Facility: [facility] Address: [facility] [address] [place] [address] Result Comment: Cuto ff threshold at 100 ng/mL. Performed By: #### 3 024-7, 3015-3 #### [facility] CLIA [id number] [address] [place] [address] [place] Phencyclidine Ql (U) Negative Normal Negative [facility] Comment on above: Order Comment: Speci men Type: BLOOD SPECIMEN Ordering Facility: [facility] [place] Address: [address] [place] [address] , [place] [address] Result Comment: Cuto ff threshold at 25 ng/mL. Performed By: #### 3 024-7, 3016-3 #### [facility] CLIA [id number] [address] [place] [address] [place] B-HCG SerPl-aCncon 4 HCG.beta subunit Qn m[IU]/mL Normal <5.0 [facility] Comment on above: Order Comment: Speci men Type: BLOOD SPECIMEN Ordering Facility: External Submitter Address: , , Result Comment: Dianne logan Performed By: #### 5 5454-3 #### [facility] CLIA [id number] [facility] [place] [address] [place] CNOVon 02-25-2023 CNOV Office Visit (ORTHMN ) JESSEE ALMODOVAR ([id number]) 1990 [facility] Date Time Provider Department 02/25/23 1:00 [...] with a (more content not included)... Normal [facility] XR HIP 3V PELV+ AP/LAT RTon 02-20-2023 [...] any questions regarding this interpretation, please call [phone]. If you are unable to reach us at the number above, please feel free to contact [facility] at [phone]. [id number] Normal [facility] XR Pelvis and Hip - right AP [...] any questions regarding this interpretation, please call [phone]. If you are unable to reach us at the number above, please feel free to contact [facility] at [phone]. DIVISION OF RADIOLOGY * * *Final Report* [...] hip are unremarkable. DIVISION OF RADIOLOGY Provider, [facility] - 02/20/2023 * * *Final Report* [...] any questions regarding this interpretation, please call [phone]. If you are unable to reach us at the number above, please feel free to contact [facility] at [phone]. 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] Order(s):XR HIP GENERAL 3V PELV/AP/LAT RIGHT [[id number]] Order #: [id number] FUTURE Prescriptions as of 02/17/2023 - amphetamine-dextroamphe [...] Status:Closed by TIANA CRONIN on 02/17/23 Normal [facility] CBC W Auto Differential pane l (Bld)on 11-15-2022 Basophils (Bld) [#/Vol] 0.04 10*3/uL <0.11 k/uL [facility] Basophils/100 WBC (Bld) 0.8 % [facility] Differential cell count method Nom (Bld) Auto [facility] Eosinophils (Bld) [#/Vol] 0.11 10*3/uL <0.46 k/uL [facility] Eosinophils/100 WBC (Bld) 2.1 % [facility] Erythrocyte distribution width (RBC) [Ratio] 13.7 % 11.5 - 15.0 % [facility] Hematocrit (Bld) [Volume fraction] 46.7 % High 36.0 - 46.0 % [facility] Hemoglobin (Bld) [Mass/Vol] 15.6 g/dL High 11.5 - 15.5 g/dL [facility] Immature granulocytes (Bld) [#/Vol] <0.10 k/uL [facility] Immature granulocytes/100 WBC (Bld) 0.2 % [facility] Lymphocytes (Bld) [#/Vol] 1.77 10*3/uL 1.00 - 4.00 k/uL [facility] Lymphocytes/100 WBC (Bld) 33.7 % [facility] MCH (RBC) [Entitic mass] 31.8 pg 26.0 - 34.0 pg [facility] MCHC (RBC) [Mass/Vol] 33.4 g/dL 30.5 - 36.0 g/dL [facility] MCV (RBC) [Entitic vol] 95.3 fL 80.0 - 100.0 fL [facility] Monocytes (Bld) [#/Vol] 0.64 10*3/uL <0.87 k/uL [facility] Monocytes/100 WBC (Bld) 12.2 % [facility] Neutrophils (Bld) [#/Vol] 2.68 10*3/uL 1.45 - 7.50 k/uL [facility] Neutrophils/100 WBC (Bld) 51.0 % [facility] Nucleated RBC (Bld) [#/Vol] <0.01 k/uL [facility] Nucleated RBC/100 WBC (Bld) [Ratio] 0.0 /100 WBC [facility] Platelet mean volume (Bld) [Entitic vol] 11.3 fL 9.0 - 12.7 fL [facility] Platelets (Bld) [#/Vol] 154 10*3/uL 150 - 400 k/uL [facility] RBC (Bld) [#/Vol] 4.90 10*6/uL 3.90 - 5.2 0 m/uL [facility] WBC (Bld) [#/Vol] 5.25 10*3/uL 3.70 - 11. 00 k/uL [facility] CBC W Auto Differential pane l (Bld)on 08-09-2022 Basophils (Bld) [#/Vol] 0.03 10*3/uL <0.11 k/uL [facility] Basophils/100 WBC (Bld) 0.6 % [facility] Differential cell count method Nom (Bld) Auto [facility] Eosinophils (Bld) [#/Vol] 0.05 10*3/uL <0.46 k/uL [facility] Eosinophils/100 WBC (Bld) 0.9 % [facility] Erythrocyte distribution width (RBC) [Ratio] 13.6 % 11.5 - 15.0 % [facility] Hematocrit (Bld) [Volume fraction] 42.0 % 36.0 - 46.0 % [facility] Hemoglobin (Bld) [Mass/Vol] 13.5 g/dL 11.5 - 15.5 g/dL [facility] Immature granulocytes (Bld) [#/Vol] <0.10 k/uL [facility] Immature granulocytes/100 WBC (Bld) 0.4 % [facility] Lymphocytes (Bld) [#/Vol] 1.57 10*3/uL 1.00 - 4.00 k/uL [facility] Lymphocytes/100 WBC (Bld) 29.0 % [facility] MCH (RBC) [Entitic mass] 30.5 pg 26.0 - 34.0 pg [facility] MCHC (RBC) [Mass/Vol] 32.1 g/dL 30.5 - 36.0 g/dL [facility] MCV (RBC) [Entitic vol] 94.8 fL 80.0 - 100.0 fL [facility] Monocytes (Bld) [#/Vol] 0.47 10*3/uL <0.87 k/uL [facility] Monocytes/100 WBC (Bld) 8.7 % [facility] Neutrophils (Bld) [#/Vol] 3.27 10*3/uL 1.45 - 7.50 k/uL [facility] Neutrophils/100 WBC (Bld) 60.4 % [facility] Nucleated RBC (Bld) [#/Vol] <0.01 k/uL [facility] Nucleated RBC/100 WBC (Bld) [Ratio] 0.0 /100 WBC [facility] Platelet mean volume (Bld) [Entitic vol] 11.1 fL 9.0 - 12.7 fL [facility] Platelets (Bld) [#/Vol] 145 10*3/uL Low 150 - 400 k/uL [facility] RBC (Bld) [#/Vol] 4.43 10*6/uL 3.90 - 5.2 0 m/uL [facility] WBC (Bld) [#/Vol] 5.41 10*3/uL 3.70 - 11. 00 k/uL [facility] XR Pelvis and Hip - right AP [...] any questions regarding this interpretation, please call [phone]. If you are unable to reach us at the number above, please feel free to contact [facility] eRadiology at [phone]. DIVISION OF RADIOLOGY * * *Final Report* [...] in the interval. DIVISION OF RADIOLOGY Provider, Tom amaro Rodeo - 08/01/2022 * * *Final Report* * [...] any questions regarding this interpretation, please call [phone]. If you are unable to reach us at the number above, please feel free to contact [facility] eRadiology at [phone]. [facility] Radiology Study observation (narrative) [facility] XR Pelvis and Hip - right AP and Lateral frogOrdered By: Ccf Provider on 08-01-2022 [facility] Ambulatory Visit Summaryon 0 05-26-2022 Ambulatory Visit [...] Up with CHELSEA KRAUS DO When: Where: [facility] [address] [place] [id number]- Medications What How Much When Why Instructions New amoxicillin (amoxicillin 500 mg Cap) 1 Capsules By Mouth Every 12 hours Strep pharyngitis Duration: 10 Days Pickup at [facility] Unchanged biotin Contact prescribing physician [...] physician if questions or concerns Pharmacy Information [facility]: [address] [place], [place] [id number] [phone] Allergies No Known Allergies Problems Ongoing - [...] these instructions at home: Medicines ? Take edwj-kyd-atrdmow and prescription medicines only as told by [...] cup (more content not included)... Normal [facility] Family Medicine Office/Clini c Noteon 05-26-2022 Family Medicine Office/Clinic Note Chief Complaint [employer]- sore throat/ ear pain HPI Staff [...] and flu, NyQuil with minimal improvement. No lswd-eya-qqbpeox medications today. Review of Systems PHQ Score [...] day(s), # 20 cap(s), Refills(s) 0, Pharmacy: [facility] 1985, 172, cm, 05/26/22 9:34:00 EST, [...] Acute pharyngitis, unspecified) Ordered: Rapid Strep POC 47823 Follow-up With When Contact Information CHELSEA KRAUS DO [facility] [address] [place] [address]- Additional Instructions: Patient Education Strep Throat, Adult, Hwlf-rx-Raon BMI for Adults Problem List/Past Medical History [...] Strep POC Result: Positive (05/26/22 09:56:00) Normal [facility] Comment on above: Result Comment: Elec [...] these instructions at home: Medicines ? Take twfi-ksn-pbccbcb and prescription medicines only as told by [...] 09/23/2008 Document Revised: 06/25/2019 Document Reviewed: 06/25/2019 [employer] Patient Education ? 2019 [employer] Nutrition BMI for Adults Body mass index (BMI) is a number that is calculated from a person's weight and height. BMI may help to estimate how much of a person's weight is composed of fat. BMI can help identify those who may be (more content not included)... Normal [facility] Coding Summary.on 02-26-2022 Coding Summary. [id number] Gh0 bWw+PGhlYWQ+LF3PFCQxH08 pcLOxdR5HZ9rYKD2UBRIQBC BRSZ1SNO5swUF5OFmeO9Xiz iAv AavvpAHiNI11OVf5EBI1dVt bWPbrpP8hmRByN8j3JePgDV 35fJ03TTeqLWVnViK3BsVcf jsgbWFy O5flSnEvxPPtFnx+PHRhYmx lIHdpZHRoPScxMDAlJyBzdH nnZP0oEn1iINDyYRHkyKdos HNlOiBj c7pqIQSwQWttYW7ttMioS8U rxXL3TMOss0r0Px69kMJ+PH OhFJQ6sZilURglq404OmDjh 7vcXYO7 jBOyDIciCZP0W29hk0X7LBQ kNCKqRYH6gTZ7mM7mnGxpxb gfD4VncDXmXoM9ANX0zTHgg B9elYjn rzsdbA8dUrv+Q31UKG9LENR TMD7DXyi4X0WxZzmkmXK+PC 53OEYmAM07cQUziREpe4epm Ic3OyNm FIPwPZJ3iHouPDiif9MqTEA lJ90dpASsq6W0CPKooNvosN CeLvAsgWI5pF1iWQttkgyzn 2hvdzsn Igtjg2monc50hE57Y78gLLk hWSZjINI9ZPMfDKUuxEbegh 4fzR2tQy7+VIfet6nem0rpu Py6CjYp APTrkoKkbAxfIWJ4w1VhEn0 1D3FayEnpl3HhXdn5pk05dT Ntd6R6iNV4GSycAVZspT7zN WxlZnQ6 EMUiGjSxwF68iREsHRgiSd8 kkGltqRnhSU6hJQVabocgKY EvlF3eFZPawWOdrUgmAU1nL TBpbjtm p541GgWmCWQ1HEFtgPIlX4S zwU6cCmUpIBCiOSOrA1KrqQ BsHCnxM111BMufWoB0NROei wTvD4Hl EYDrdKpuXjY1r3S1Sc1Vz7H wgvugATS7TXniFFNcVoL0Ge MuUrW3B0CxJou1YEXtiKosT M2xS0Av QPZgzwgbdhacaGR3ZNRuRGO ymD08pQPeONbnFw1uy0S9g2 60LUZqKFBswK42Ow1jaBcsQ TBwdCBU kW2vadsrn5qipsvbHoMbABR mXJw2XHk9XUNmhVpsQkLjPN X3NuH5PFG8nPXdgU4ezFfxa sewxN4t Oyc+S44zrK0bEXW3LUL7fxw kQYOfxzCsGI18IV44D9ZcAi wvdGFibGU+PGRpdiBzdHlsZ W5xWjKr y5csw0AuXKcrS9IrOYGcPJx yYhb1YTMhKPQ3vGH7fB9kDC ZwLQvuc7R9cNX1J3XeqdJhm c4pa7vy KQOzWGgsU60yoPCry2G6CUK ptBT8DCNluGfuPaXxrM89Wk c+UCQhvNyza2LgEokkr0acl 8gppSr3 FcNaMJPiozVwmLcqWLR7q3D fRu13K76aSRbjJXUuFIUfQE SpOKPheLwyzr8upD5rEk6+P GNvbCB3 dCY0yC9zPLLzTyK3WUbjV93 3VoEfnXSyCcmkj0neu1ovwM m8CrMjOEFtoxBcuMluXYF7k 4AuGg15 N38lAGhjMXCjDDEvAJRtDVB rgZmmix1keI0vIy8+PC9jb2 kyza58lV43xFU+GBFjLWO4s WxlPSdw AKOjxX9yRZhtIpV8VOQkTmF trD88qSAxYTuxZt8fvQqhxY vaRV7qYYDiaxpnw898SkUyt 2xkIDEw rRLaAVlvEVJ2L35xp8C8IAC hVQOoZRH7bVO3kQ5kaXnsvb ogbGVmdDsgdmVydGljYWwtY PfqB383 IHRvcDsnPlBhdGllbnQgTmF vQUy5E8DuSjz6XUBjdEhlPK 9htQBsZUmrVd4irIznaIllW O6qCRId ibkzj569XcZrb6xcTRPziGQ lUJdsXDH3X38ol6A1XWLkBD AuZQH6sOY4zQ1zvHrbbulnu GVmdDsg gsUwyEdyALtrYGcoW800QVA pnFdqEzXlzwXnZKMbgKP9UD 71QR42dBNxz6Y0uVS6E6OrP GRpbmct xnvnhKW2SRLbBMMwkV62Vi5 jcGjlTw3vSXJmYVM7IRWzuJ RlS4MqdJ0oAeUwCUYdHZUzR 3RleHQt THwoG645DReuZgI4BEJpftM uY5NkTKDisPcxLaM6r2C0Tl 6ZT9T0LB08MQ66mLIps0X9z EC7A4Db RGCdxsewuhqvwYY2LGNhTMR wcK21Vq8nhMkzBt7nFCYuKN W2RIJquZDwM8CrcO9kUySxF DAwMDAw E1SkqSIiCIdoT037YLqkFvL 0TODjpfIdM0PeKTDnhDdhPu E6a4G7Um4BWGg7QF14LY09t IZhq9V1 fHM6F1SuBFYcmzbfocwiqHK 6XGFfXWSvmL47Ic6qmRcpQn 6lGNDjFNE1QAPbvCKcN9Axl T4kJyAl FHSsFLKcQ0YuuNJaCIvsH80 1ALepLeQ7OTUzynMoY4OxRP HqyKqjYtB0k6I5Or2NPSAhC P72VLD7 pUR9FF96VT32D6JqHajsmGD ibGU+PHRhYmxlIHdpZHRoPS kjBPZdGiJjcYslQW6mHu5pX GVyLWNv dKxivRFdIzKdd1rfJGMoPLa lFG2rjGeuD2VpiHS0LOOin7 m9We93Y99fB0OnwHG+PGNvb GQ6dRQ1 dA2kCpEuDgY5YCjcC057TwO shDFhMgene6sru1czlYj6Ry L1RTCscgXbvGslVZY4p4CsI p06V59e IHdpZHRoPSIxNSUiIHZhbGl mpy9snC2kNg1+UDWkzLH7iK B4zH2sOfLwJrK2LMujT034H nRvcCIv Nboqb4lhr7lsvHs5CmSxPJY elrAxjRkmPYB7g6FeJb10O9 WidLfmp1WjXqy9mm01sELhm 1B1cKG3 Q3EyQDYbiulpzVUgnZjuGY2 gDCHxeaaaXYPluZ7bQCXeP6 y8JsMtZfV6EKpmY7WdnaI6X DEwcHQg ZBwePOJ2V83qu3W4IJOtIFQ pFQQ4qXW4uD5joNtzpscmdV VmdDsgdmVydGljYWwtYWxpZ 246IHRv uUrmPWZuvU0yBQXsiNHneJz xIQ8sJQZqgtuzMzkMAUxUDB mETbwiDAQRNO14X8CuLeo9T CBzdHls BX5dtZGnQZxhNx1qbVltvBw lBF6cTTGxnlvgAJJzoH1gRO UncGKtsVefNJ9yRRHmgolsq 250OiAx BKK6QFKpuVCuY0CfqM7gDkD fBYNvDTMiP4EdpBHcMJquL3 64LDkfTlY7LFUzhtLyU4SwA WFsaWdu CoR2a8M7Rc3jIC1wWC5qRHa sZD64RH69mJYvx1W3sWU1B4 JrOXVjgapvkiouqGH8EGWlJ DUwaW47 eHUeKSojWf8nr1V2a953QOG vQLLvgY99Vj1xoGfsRYEokT OWbX1fxddjw3rtugbyIeVqV DAwMDt0 DUr0ATDfdDrxGmZbXUD8PeT 7XAC7kEZzzK6ypIdjlqasgK 9wOyc+RgEbEFVwstN4B0SdG vr3UYSd uTxvWW1etJPsOJxkJt8obSc ayWicPY6cENCfpypiNCDctD 6xTSGasSLcuCupXD2iZZPki njrj951 BzKgGED6FTIqkUSjK4RtpY6 cSdYwMLGtBUYnE8LjoSMoSZ bbN190YZukLbO2EAYyhfQwZ 2FsLWFs sXlrZwR7d7P5Sj3YZC5tfKI 4O9EvKrv4JONyySjzUM1qzI IwKLgcVz5yoVdcaOmxWB4jK TBpbjtw KXQfsN9vHQYycEWnwKugKX0 uFELtilplk142YxSnPQW3FJ BhfLTtT5FsuC9rHxKjUVGgL JRsL3Bn jVYhEWdhJ256QIfxSxQ5RPR aswHlG3NaCGUziLozPcN1q1 H3Xl3MhICrS0MhB5z0H4KfM jwvdHI+ RI82OFYvXX96wGYfcBEiq6p ytKu5PnRdZCSsHXQ7uNwlSJ mgn5NvDNBoG01jxMImp1Y1T GNvbGxh fMAtGgRtoVG9cU2cEFohosv pd4sjkypgCffwk6rhss24tP 41B13qEMvfCXIrXSExOEChW HZhbGln le4djS9mOb3+WUWmqTC2uBI 8pN6dZuVoSgS7NUvvK866Al DrdUEhIuvrq8mau4vbfZj9W jIwJSIg dlFkcMrlGJS0q1CaJl21C41 sIHdpZHRoPSIyMCUiIHZhbG vmtk4qmA2gXk2+CX6lx2dox y04dZ58 dHI+CVMpKOD9mNyoRXyyCLJ xbV6qCElfVvV3SFAbHtSyzF 10iYPnLBptKu2mkQwnnFxfI A2kRISp jgxpd939RyFzn0ruQSXtzZZ xOOevKKB6V90yo4N3SSHcWB LjBIW5mHZ6dH8wgFkibrvhh GVmdDsg koRjnDffYAarKMddB724FRH wkPljJjHclATtH7buupGTFF 1lOjwvdGQ+IBJuZTC0hLviF SdwYWRk sH6mTULoZ6v6JbWoNmF0WOx rP8EkijU6MSNfiVMwCROogA FJcM9iqmkpx7mpfyaoLcBnY DAwMDt0 RLv3LQIhdYjeMpKtNXH7RiP 6TJS4cAEfsT3yxDfvmnnyvA 9wOyc+RklOOjwvdGQ+PHRkI PB0qHrq SUeqJCQdpY5qVJMcD6k5OcT vYdL1DWwmL4HshgY7ZEXtuK JnYXOixPIWhM9rhkadp2whv jogIzAw COTdKHa4SNd3TZPkuZfkXsI gTJY4MtX4JDI2hXPsiC5doP lasqmszX4zJyj+TVJOOjwvd GQ+PHRk IUM2qLgoTWqdBXPfcB0bPTC xU9h7BaKzQsN3OUkcT1Xokw V2TCGhxNQeKDXngJZQtO0az zqhy7nh gqbfKqAfZZKcPZt9TFt0TVG nwMcpRdOlLFA6PgP8WLR7hJ DzoS9caRugrejxsX1xUmm+U DM7XID2 PB60CH22U9FpGrppgZDqlHD +PHRhYmxlIHdpZHRoPScxMD TkRyDfaSorPT0kDc2qYYEoK WNvbGxh cHNl (more content not included)... Normal [facility] Discharge Instructionson Discharge Instructions [id number] CD:127 Normal [facility] ED Clinical Summaryon 2021 ED Clinical Summary (Inserted Image. Kelsi ble to display) [place] [id number] ED Clinical Summary Person Information [facility] Age: 32 Years : 1990 Sex: Female Language: Swiss PCP: Marital Status: Phone: [phone] Visit Id: Visit Reason: Foot pain-swelling; HURT [...] 02/23/2022 11:07:01 02/23/2022 11:07:01 ADDRESS: [address] [address] [facility] [id number] PHYS DOC NOTES: MEDICAL INFORMATION: Prescriptions Given: PATIENT EDUCATION INFORMATION: Instructions: Foot Sprain; How to Use Cold Therapy, Qlos-gz-Njtj; Elastic Bandage and RICE Therapy Follow up: With: Address: When: CHELSEA KRAUS [employer] [facility], [address] [place] [address] [facility] ([employer] In 3 days 02/26/2022 Comments: Follow-up with your primary care provider in 3 to 5 days. If symptoms worsen, do not improve, or new symptoms arise please report back to emergency department for further evaluation. DIAGNOSIS: Sprain of left foot Normal [facility] ED Note-Physicianon 02-24-20 ED Note-Physician Basic [...] Information CHELSEA KRAUS In 3 days 02/26/2022 RUST [employer] [facility] [address] [place], [place] [id number] [facility] (1) Additional Instructions: Follow-up with your primary care provider in 3 to 5 days. If symptoms worsen, do not improve, or new symptoms arise please report back to emergency department for further evaluation. Patient Education Foot Sprain How to Use Cold Therapy, Kjpz-gv-Ofbi Elastic Bandage and RICE Therapy Attestation Patient seen and evaluated by the physician commercial lines assistant. Attending physician was present in the emergency department and supervised care. This visit was performed by both the physician and an APC. I performed all aspects of the MDM as documented. This report was transcribed using voice recognition software. Every effort was made to ensure accuracy, however, inadvertently computerized piece dyeing machine tender mistakes may be present. Appropriate healthcare PPE [...] medications Ho (more content not included)... Normal [facility] Comment on above: Result Comment: Elec [...] This may take several hours. ? Take cmub-jqr-ijetzce and prescription medicines only as told by [...] is no (more content not included)... Normal [facility] ED Patient Summaryon 022 ED Patient Summary (Inserted Image. Kelsi ble to display) [address] [address] Patient Discharge Instructions Person Information Name: JESSEE ALMODOVAR Age: 32 Years Arrival Date: 02/23/2022 09:05:13 Discharge Diagnosis: Sprain of left foot Primary Care Physician: Provider Information Primary Provider: Chayo Anne DO Advanced Collections Agent:None The exam and treatment you received in the Emergency Department were for an urgent problem and are not intended as complete care. It is important that you follow up with a doctor, nurse practitioner, or physician?s commercial lines assistant for ongoing care. If your symptoms [...] Follow-up Instructions: With: Address: When: CHELSEA KRAUS [employer], [address] [place] [address] Business (1) In 3 days 02/26/2022 [...] Foot Sprain; How to Use Cold Therapy, Sydm-eo-Jpio; Elastic Bandage and RICE Therapy A MESSAGE TO ALL PATIENTS REGARDING OPIOIDS PRESCRIPTION OPIOIDS: WHAT YOU NEED TO KNOW Prescription opioids can be used to help relieve vlfdtcvy-ux-rnloky pain and are often prescribed following a [...] Visit www.cdc.gov/ (more content not included)... Normal [facility] XR Foot 3+ Views Lefton -0 [...] DO Transcribed by: SUZY Technologist: TIM Normal [facility] XR Pelvis and Hip - [...] any questions regarding this interpretation, please call [phone]. If you are unable to reach us at the number above, please feel free to [facility] at [phone]. DIVISION OF RADIOLOGY * * *Final Report* [...] joint appears preserved. DIVISION OF RADIOLOGY Provider, [facility] - 02/19/2022 * * *Final Report* [...] any questions regarding this interpretation, please call [phone]. If you are unable to reach us at the number above, please feel free to contact [facility] eRadiology at [phone]. [facility] XR Pelvis and Hip - right AP and Lateral frogOrdered By: Ccf Provider on 02-19-2022 [facility] XR Pelvis and Hip - right AP and Lateral frogon 02-18-2022 Radiology Study observation (narrative) [facility] CT ABD/PELV W CONon 02-12-20 CT ABD/PELV [...] by: EMELIA STEWART Date: 2022-02-11 07:23 Normal [facility] US PELVIS AND TRANSVAGon US PELVIS [...] by: JENNIFER HARTLEY Date: 2022-01-08 14:12 Normal [facility] UA DIP, URINE (POC)on 2021 BILIRUBIN UA (POCT) Negative Negative [facility] CLARITY UA (POCT) Cloudy [facility] COLOR UA (POCT) Yellow [facility] GLUCOSE UA (POCT) Negative Negative mg/dL [facility] HEMOGLOBIN/BLOOD UA (POCT) Trace-intact Abnormal Negative [facility] KETONE UA (POCT) Negative Negative mg/dL [facility] LEUKOCYTES UA (POCT) Small Abnormal Negative [facility] NITRITE UA (POCT) Negative Negative [facility] PH UA (POCT) 6.5 4.5 - 8.0 [facility] Protein Ql (U) Negative Negative mg/dL [facility] SPECIFIC GRAVITY UA (POCT) 1.015 1.005 - 1.030 [facility] UROBILINOGEN UA (POCT) 0.2 E.U./dL Normal E.U./dL [facility] Large Joint Arthro/Inj: R gr eater trochanteric bursa [facility] Vital Signs Date Time Vital Sign Value Performing Clinician Facility 02-25-2023 13:16-0500 Body height 185.4 cm Rosas Mckinney MD Work Phone: [facility] 02-25-2023 13:16050 Body weight 76.67 kg Rosas Mckinney MD Work Phone: [facility] 07-10-2022 15:15-0400 Body height 181.61 cm Imad Asaad Other [email or web address] Other 07-10-2022 15:15-0400 Body mass index (BMI) [Ratio] 24.48 kg/m2 Imad Asaad Other [email or web address] Other 07-10-2022 15:15-0400 Body weight 80.74 kg Imad Asaad Other [email or web address] Other 07-10-2022 15:15-0400 Diastolic blood pressure 78 mm[Hg] Imad Asaad Other [email or web address] Other 07-10-2022 15:15-0400 Systolic blood pressure 130 mm[Hg] Imad Asaad Other [email or web address] Other 05-26-2022 09:29-0500 Blood Pressure Location Roxanne MOSLEY [facility] 05-26-2022 09:29-0500 Body temperature 98.42 [degF] Roxanne MOSLEY [facility] 05-26-2022 09:29-0500 Diastolic blood pressure 78 mm[Hg] Roxanne MOSLEY [facility] 05-26-2022 09:29-0500 Heart rate 115 /min Roxanne MOSLEY [facility] 05-26-2022 09:29-0500 SaO2% (BldA) [Mass fraction] 98 % Roxanne MOSLEY [facility] 05-26-2022 09:29-0500 Systolic blood pressure 120 mm[Hg] Roxanne MOSLEY [facility] 02-23-2022 09:10-0400 Body temperature 98.42 [degF] Chayo Anne [facility] 02-23-2022 09:10-0400 Diastolic blood pressure 67 mm[Hg] Chayo Anne [facility] 02-23-2022 09:10-0400 Heart rate 88 /min Chayo Anne [facility] 02-23-2022 09:10-0400 Respiratory rate 18 /min Chayo Anne [facility] 02-23-2022 09:10-0400 SaO2% (BldA) [Mass fraction] 98 % Chayo Anne [facility] 02-23-2022 09:10-0400 Systolic blood pressure 141 mm[Hg] Chayo Anne [facility] Encounters Encounter Date Encounter Type Care Provider Facility Start: 01-19-2024 End: 01-19-2024 ambulatory ANUPAMA BROWN Facility:[facility] Start: 01-13-2024 End: 01-13-2024 ambulatory GUILLAUME VASQUEZ Not Available Start: 01-05-2024 End: 01-05-2024 ambulatory ANUPAMA BROWN Facility:[facility] Start: 12-30-2023 End: 12-30-2023 ambulatory GUILLAUME PEDRO Not Available Start: 12-16-2023 End: 12-16-2023 ambulatory GUILLAUME PEDRO Not Available Start: 12-08-2023 End: 12-08-2023 ambulatory GUILLAUME R PEDRO Facility:[facility] Start: 11-20-2023 End: 11-20-2023 ambulatory ANUPAMA BROWN Facility:[facility] Start: 11-18-2023 End: 11-18-2023 ambulatory ELISEO KIN Not Available Start: 10-22-2023 End: 10-22-2023 ambulatory GUILLAUME R PEDRO Facility:[facility] Start: 10-21-2023 End: 10-21-2023 ambulatory GUILLAUME PEDRO Not Available Start: 10-16-2023 End: 10-16-2023 ambulatory [facility] Start: 09-24-2023 End: 09-24-2023 ambulatory ELISEO KIN Not Available Start: 08-26-2023 End: 08-26-2023 ambulatory GUILLAUME PEDRO Not Available Start: 08-08-2023 End: 08-08-2023 ambulatory GUILLAUME R PEDRO Facility:[facility] Start: 07-24-2023 End: 07-24-2023 ambulatory GUILLAUME PEDRO Not Available Start: 06-04-2023 End: 06-04-2023 ambulatory ASIF GRIFFIN [facility] Start: 06-02-2023 End: 06-02-2023 Phys/qhp telephone evaluation 5-10 min Guillaume Pedro DO Work Phone: [facility] Comment on above: Irregular menses (Pr imary Dx) Start: 06-02-2023 End: 06-02-2023 ambulatory GUILLAUME PEDRO Not Available Start: 05-28-2023 Chart abstracting Guillaume Pedro DO Work Phone: [facility] Start: 05-16-2023 End: 05-16-2023 ambulatory ANUPAMA BROWN Facility:[facility] Start: 05-05-2023 End: 05-05-2023 ambulatory ASIF SCHAEFER Facility:[facility] Start: 05-02-2023 End: 05-02-2023 ambulatory [facility] Start: 05-02-2023 End: 05-02-2023 Office outpatient visit 25 minutes Asif Schaefer [employer] Work Phone: [facility] Comment on above: Attention deficit hy peractivity disorder (ADHD), predominantly inattentive type (Primary Dx); Moderate episode of recurrent major depressive disorder (CMS-HCC); Generalized anxiety disorder Start: 03-04-2023 End: 03-04-2023 ambulatory GUILLAUME VASQUEZ Not Available Start: 02-25-2023 End: 02-25-2023 ambulatory ANUPAMA DANIELLE BROWN Facility:[facility] Start: 02-25-2023 End: 02-25-2023 Office outpatient visit 25 minutes Rosas Mckinney MD Work Phone: Orthopaedics Comment on above: Lytic bone lesion of femur (Primary Dx); Greater trochanteric bursitis of right hip; Chronic pain of right hip; Chronic low back pain, unspecified back pain laterality, unspecified whether sciatica present; Pain of right hip; Bone lesion Start: 02-20-2023 End: 02-20-2023 ambulatory ANUPAMA BROWN Facility:[facility] Start: 02-20-2023 End: 02-20-2023 Subsequent hospital [...] 07-10-2022 End: 07-10-2022 ambulatory Imad Asaad Other [facility] [employer] Other Start: 07-10-2022 Office outpatient ne w 45 minutes Imad Asaad [facility] G[facility] Start: 05-26-2022 End: 05-27-2022 ambulatory Roxanne MOSLEY Facility:[facility] Start: 05-26-2022 End: 05-26-2022 Patient encounter procedure Roxanne MOSLEY [facility] Start: 05-08-2022 End: 05-08-2022 ambulatory PRAVIN SANDERSON Facility: Start: 02-26-2022 End: 02-26-2022 Patient encounter procedure Rosas Mckinney MD Work Phone: Orthopaedics Comment on above: Lytic bone lesion of femur (Primary Dx) Start: 02-23-2022 End: 02-23-2022 Emergency department patient visit Chayo Anne Facility:[facility] Start: 02-23-2022 End: 02-23-2022 Emergency department patient visit Chayo Anne [facility] Start: 02-18-2022 End: 02-18-2022 Subsequent hospital [...] Dx) Start: 10-04-2021 Orders Only Macy Jones APRN.ANNEALING OPERATOR Work Phone: Hematology/Oncology Comment on above: Acute bilateral low back pain with bilateral sciatica (Primary Dx) Procedures Date Procedure Procedure Detail Performing Clinician Start: 08-08-2023 Antibody screen GUILLAUME MURILLO Comment on above: Order Comment: Speci men Type: BLOOD SPECIMEN Ordering Facility: External Submitter Address: , , Performed By: #### T SCR #### CC MAIN BLOOD BANK [facility] [id number] [address] [place] [address] [place] Start: 02-25-2023 Arthrocentesis aspir &/inj major jt/bursa w/o us Tiana Cronin PA-C Work Phone: Start: 02-20-2023 Radex hip unilateral with pelvis 2-3 views Roni Dumas MD Work Phone: Start: 08-08-2022 Adult depression scr eening assessment Asif Schaefer LEGEND MAKER-ANNEALING OPERATOR Work Phone: Start: 08-01-2022 Radex hip unilateral [...] Td Vaccines (4 - Td or Tdap) [facility] Start: 01-04-2030 Urine microalbumin profile DTa P,Tdap,Td Vaccine (4 - Td or Tdap) [facility] Start: 03-10-2024 Tobacco Screening Tobacco Screening [facility] Start: 02-23-2024 Screening for malign ant neoplasm of cervix [facility] Start: 12-21-2023 Covid-19 Vaccine () Covid-19 Vaccine () [facility] Start: 12-21-2023 Covid-19 Vaccine ( season) Covid-19 Vaccine () [facility] Start: 12-21-2023 Influenza vaccination Influenza Vacc ine (#1) [facility] Start: 08-09-2023 Adult BMI Screening Adult BMI Screen ing [facility] Start: 08-09-2023 Depression Screening Depression Scre ening [facility] Start: 05-29-2023 End: 05-29-2023 Patient encounter procedure 05/29/2023 8:10 AM EST Office Visit [facility] [address] [address] Guillaume Vasquez, DO [address] [place] [address] Irregular menses [facility] Comment on above: Irregular menses Start: 12-20-2022 Covid-19 Vaccine () Covid-19 Vaccine () [facility] Start: 12-20-2022 Influenza vaccination INFLUENZA (#1) [facility] Start: 11-15-2022 End: 01-15-2023 Comprehensive metabolic 2000 panel - Serum or Plasma [facility] Work Phone: Comment on above: Expected: 11/15/2022 , Expires: 01/15/2023 Start: 11-15-2022 End: 01-15-2023 Lipid 1996 panel - Serum or Plasma [facility] Work Phone: Comment on above: Expected: 11/15/2022 , Expires: 01/15/2023 Start: 11-15-2022 End: 01-15-2023 T4/FTI/T4U [facility] Work Phone: Comment on above: Expected: 11/15/2022 , Expires: 01/15/2023 Start: 11-15-2022 End: 01-15-2023 Thyrotropin [Units/volume] in Serum or Plasma [facility] Work Phone: Comment on above: Expected: 11/15/2022 , Expires: 01/15/2023 Start: 08-26-2022 End: 03-28-2023 XR HIP GENERAL 3V PELV/AP/LAT RIGHT XR HIP GENERAL 3V PELV/AP/LAT RIGHT Radiology Routine Lytic bone lesion of femur Expected: 08/26/2022, Expires: 03/28/2023 [facility] Work Phone: Comment on above: Expected: 08/26/2022 , Expires: 03/28/2023 Start: 08-09-2022 End: 10-09-2022 25-hydroxyvitamin D3 [Mass/volume] in Serum or Plasma [facility] Work Phone: Comment on above: Expected: 08/09/2022 , Expires: 10/09/2022 Start: 04-21-2022 DEPRESSION ASSESSMENT DEPRESSION ASS ESSMENT [facility] Start: 12-20-2021 Influenza vaccination INFLUENZA (#1) [facility] Start: 12-06-2021 End: 02-05-2022 Thyrotropin [Units/volume] in Serum or Plasma [facility] Work Phone: Comment on above: Expected: 12/06/2021 , Expires: 02/05/2022 Start: 12-06-2021 End: 02-05-2022 Thyroxine (T4) free [Mass/volume] in Serum or Plasma [facility] Work Phone: Comment on above: Expected: 12/06/2021 , Expires: 02/05/2022 Start: 12-06-2021 End: 02-05-2022 Triiodothyronine (T3) [Mass/volume] in Serum or Plasma [facility] Work Phone: Comment on above: Expected: 12/06/2021 , Expires: 02/05/2022 Start: 11-08-2021 End: 01-08-2022 Choriogonadotropin ( test) [Presence] in Urine [facility] Work Phone: Comment on above: Expected: 11/08/2021 , Expires: 01/08/2022 Start: 11-08-2021 End: 01-08-2022 URINALYSIS, REFLEX MICROSCOPIC [facility] Work Phone: Comment on above: Expected: 11/08/2021 , Expires: 01/08/2022 Start: 04-21-2021 DEPRESSION ASSESSMENT DEPRESSION ASS ESSMENT [facility] Start: 2021 HPV TESTING HPV TESTING [facility] Start: 10-13-2020 COVID-19 VACCINE (3 - Booster for Moderna series) COVID-19 VACCINE (3 - Booster for Moderna series) [facility] Start: 07-10-2020 COVID-19 VACCINE (3 - Booster for Moderna series) COVID-19 VACCINE (3 - Booster for Moderna series) [facility] Start: 07-10-2020 COVID-19 VACCINE (3 - Moderna series) COVID-19 VACCINE (3 - Moderna series) [facility] Start: 02-08-2012 PAP TESTING PAP TESTING [facility] Start: 02-08-2012 Screening for malign ant neoplasm of cervix [facility] Start: 2010 Urine microalbumin profile DTA P,TDAP,TD (1 - Tdap) [facility] Start: 2009 Anxiety Screening Anxiety Screening [facility] Start: 2009 Depression Screening Depression Scre ening [facility] Start: 2009 HEPATITIS C SCREENING HEPATITIS C SC KILEY [facility] Start: 2009 HIV SCREENING HIV SCREENING [facility] Start: 2003 Adult depression scr eening assessment DEPRESSION SCREENING [facility] Start: 1997 Pneumococcal vaccination [facility] Start: 1991 HEPATITIS B (1 of 3 - 3-dose series) HEPATITIS B (1 of 3 - 3-dose series) [facility] Bacteria identified in Urine by Culture URINE CULTURE Microbiology Routine Pelvic pain 11/08/2021 11:36 AM EDT [facility] Work Phone: End: 06-02-2023 Drug Screen, [...] lesion 1 Occurrences starting 02/25/2023 until 03/26/2024 [facility] Work Phone: Comment on above: 1 Occurrences starti ng 02/25/2023 until 03/26/2024 End: 03-18-2024 XR HIP GENERAL 3V PELV/AP/LAT RIGHT XR HIP GENERAL 3V PELV/AP/LAT RIGHT Radiology Routine Lytic bone lesion of femur 1 Occurrences starting 02/17/2023 until 03/18/2024 [facility] Work Phone: Comment on above: 1 Occurrences starti ng 02/17/2023 until 03/[facility] Immunization Date Immunization Notes Care Provider Jonathan lara 01-28-2023 influenza virus vaccine, unspecified formulation Roni Dumas MD Work Phone: [facility] 02-14-2022 influenza virus vaccine, unspecified formulation Rosas Mckinney MD Work Phone: [facility] 01-18-2021 influenza virus vaccine, unspecified formulation Macy Jones APRN.CNP Work Phone: [facility] 03-01-2020 influenza, seasonal, injectable Imad Asaad Other [email or web address] Other 02-03-2016 influenza, injectable, quadrivalent, contains preservative Imad Asaad Other [email or web address] Other NEGATED: Highlighted row has not occurred!03-02-2019 influenza, seasonal, injectable Imad Asaad Other [email or web address] Other Payers Date Payer Category Payer Unknown [id number] 1991 Unknown [id number] 2.16.84 [id number] 1991 Unknown [id number] 2.16.84 0.1.988963.3.579.2.593 1991 Unknown [id number] 2.16.84 0.1.989282.3.579.2.593 1991 Unknown [id number] 2.16.8 40.1.216618.3.579.2.727 1991 Unknown [id number] 2.16.8 40.1.588937.3.579.2.727 1991 Unknown [id number] 2.16.84 0.1.340093.3.579.2.1286 1991 Unknown [id number] 2.16.8 40.1.370730.3.579.2.1286 1991 Unknown [id number] 2.16.8 40.1.084381.3.579.2.1286 1991 Unknown [id number] 2.16.8 40.1.564359.3.579.2.1286 1991 Unknown [id number] 2.16.84 0.1.627117.3.579.2.1259 1991 Unknown [id number] 2.16.84 0.1.939435.3.579.2.1259 1991 Unknown [id number] 2.16.84 0.1.751698.3.579.2.1259 1991 Unknown [id number] 2.16.84 0.1.247723.3.579.2.1259 1991 Unknown [id number] 2.16.84 0.1.772333.3.579.2.1259 1991 Unknown [id number] 2.16.84 0.1.977882.3.579.2.1259 1991 Unknown [id number] 2.16.84 0.1.154098.3.579.2.1259 1991 Unknown [id number] 2.16.84 0.1.401408.3.579.2.1259 1991 Unknown [id number] 2.16.84 0.1.667636.3.579.2.1259 1991 Unknown [id number] 2.16.840. 1.906965.3.579.2.1259 1959 Unknown [id number] Social History Date Type Detail Facility Tobacco smoking status MAIS Tobacco smoking consumption unknown [facility] Work Phone: Start: 1990 Sex Assigned At Not on file C [facility] Start: 10-29-2021 End: 02-26-2022 Exposure to SARS-CoV-2 (event) Not sure [facility] Start: 03-21-2013 End: 02-11-2022 Tobacco smoking status Ex-smoker (finding) [facility] Comment on above: quit 01/2013 Start: 02-11-2022 End: 02-26-2022 Sex Assigned At Female [facility] History of tobacco use Current smoker [facility] History of tobacco use Cigarette Smoker [facility] History of tobacco use Passive smoker [facility] Start: 02-11-2022 End: 08-08-2022 Tobacco use and exposure Smokeless tobacco non-user [facility] Start: 02-11-2022 End: 02-26-2022 Alcohol intake Current drinker of alcohol (finding) [facility] Tobacco smoking status Never [facility] Start: 02-11-2022 End: 02-26-2022 History of Social function [facility] Start: 02-25-2023 End: 05-28-2023 Tobacco smoking status NHIS Occasional tobacco smoker [facility] Start: 08-08-2022 Alcohol Comment on the weekends [facility] Start: 05-28-2023 Alcohol Comment caffeine: 2-3 cups per day coffee; soda [facility] Functional Status Date Assessment Result Facility 05-26-2022 Functional Status N/A [facility] 02-23-2022 Functional Status N/A [facility] Clinical Notes 08-20-2015 to 06-02-2023 Guillaume Vasquez DO - 06/02/2023 4:20 PM ESTPsychiatric Progress Note - Asif Schaefer APRN-ANNEALING OPERATOR - 05/02/2023 10:00 AM ESTPatient Rosas Wilson MD - 02/25/2023 1:10 PM EST Note Date & Type Note Facility 06-02-2023 History of Present illness Narrative Reason for Appointment: Patient ID: Jessee Almodovar is a 33 y.o. female who presents for No chief complaint on file. Patient presents today via telephone call for a telehealth appointment. Patients Phone #: [phone] (mobile) Current Medications: has a current medication [...] or as needed. Will consider referral to [facility] in future Documented by Guillaume Vasquez DO on behalf of: Guillaume Vasquez DO documented in this encounter [facility] 05-02-2023 Miscellaneous Notes [address] [place] [address] Patient: Jessee Almodovar Date of : 1990 Encounter Date: 05/02/2023 History of Present Illness/Psychiatric Review of Symptoms/Medical Review of Systems: Video Visit via Real-time Synchronous Audiovisual Provider [facility] [address] [place] [address] Patient Location: patient's office in [place], [place] Video Visit Consent Statement: I discussed [...] that there are some limitations compared to mapl-uu-bhoa evaluations. The patient consented to the presence of additional virtual and/or in-person participants. We elected to proceed. Jessee is a 33 y.o. female, established patient, and is logged on via [employer] for a follow-up video visit. HPI: Jessee [...] Moderate episode of recurrent major depressive disorder ([facility]) Generalized anxiety disorder Medication Changes: yes start [...] Leon 05/02/23 1746 documented in this encounter [facility] 05-02-2023 Progress note Formatting of t his note is different [place] [address] Patient: Jessee Almodovar Date of : 1990 Encounter Date: 05/02/2023 History of Present Illness/Psychiatric Review of Symptoms/Medical Review of Systems: Video Visit via Real-time Synchronous Audiovisual Provider Location: [facility] [address] [facility] [place] [address] Patient Location: patient's office in [place], [place] Video Visit Consent Statement: I discussed [...] that there are some limitations compared to qsvj-jp-jlsy evaluations. The patient consented to the presence of additional virtual and/or in-person participants. We elected to proceed. Jessee is a 33 y.o. female, established patient, and is logged on via [employer] for a follow-up video visit. HPI: Jessee [...] Moderate episode of recurrent major depressive disorder ([facility]) Generalized anxiety disorder Attention deficit hyperactivity disorder [...] Moderate episode of recurrent major depressive disorder ([facility]) Generalized anxiety disorder Medication Changes: yes start [...] SCHAEFER CNP, PMP-. BARAK De Leon 05/02/23 6047 [facility] 02-25-2023 Instructions Tiana Cronin PA-C - 02/25/2023 1:56 PM EST Images from the original note were not included. MRI right hip Home exercises Continue with NSAIDS CSI right hip- may repeat in 3 months if needed documented in this encounter [facility] 02-25-2023 Note HNO ID: [id number] Author: Rosas Mckinney MD Service: ? Author [...] given from AAOS (more content not included)... [facility] 02-25-2023 History of Present illness Narrative Associated Order(s): Large Joint Arthro/Inj: R greater trochanteric bursa Post-Procedure Diagnose(s): Greater trochanteric bursitis of right hip [facility] Note Chief Complaint: Bone lesion of right femur- follow up Referring Physician: Roni Dumas History of Present Illness: eJssee is a 33-year-old female presenting for follow-up [...] trochanteric bursa Informed Consent Consent Obtained: Verbal [place] Protocol A moment to CARE was completed. [...] Time: 10:49 PM documented in this encounter [facility] 02-20-2023 History of Present illness Narrative Radiology [...] 2023 8:45 AM documented in this encounter [facility] 02-20-2023 Note HNO ID: [id number] Author: Kathrine Smith RT(Kena) Service: ? Author [...] RT Francisco(R) February 20, 2023 8:45 AM [facility] 02-17-2023 Miscellaneous Notes Jourdan Atkins, My MA Karyna is having quite a bit of pain and dysfunction in the right hip. Most days in the mornings especially, are excruciating for her and she's unable to sleep on her right side. Would you mind to see her again please? I can get additional imaging first, if you'd like. Thanks, Td. documented in this encounter [facility] 08-01-2022 History of Present illness Narrative Radiology [...] 2022 9:04 AM documented in this encounter [facility] 07-10-2022 Evaluation note Encounter Date Diagnosis Assessment Notes Jun, Constipation (ICD-10 - K59.00) Jun, Change in bowel habits (ICD-10 - R19.4) Jun, Diarrhea (ICD-10 - R19.7) Patient to start Align probiotic. Jun, Bloating (ICD-10 - R14.0) [email or web address] Other 02-05-2023 Hospital Discharge instructions Patient Education 05/26/2022 10:06:58 Strep Throat, Adult, Ojfm-gh-Btpl Strep Throat, Adult Strep throat is an [...] Follow these instructions at home: Medicines Take rcob-axh-iqkcjyw and prescription medicines only as told by [...] 09/23/2008 Document Revised: 06/25/2019 Document Reviewed: 06/25/2019 [employer] Patient Education 2020 [employer]Connect. 05/26/2022 10:06:56 BMI for Adults BMI for [...] height. This can be done either in [place] ([place] or metric measurements. Note that charts are available to help you find your BMI quickly and easily without having to do these calculations yourself. To calculate your BMI in [place] ([place] measurements, your health care provider will: [...] medical problems. BMI can be measured using Swiss measurements or metric measurements. To interpret your [...] 12/17/2004 Document Revised: 03/20/2018 Document Reviewed: 02/18/2018 [employer] Patient Education 2020 uConnect. 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 She states she underwent a CT scan [...] abdominal pain with planned GI followup, as mortarman workup so far is unremarkable. Patient does [...] being sent back to Roni Dumas via [employer]sRunae/[employer] or Chart CC for [facility] Providers. Rosas Mckinney MD Colon Therapist, Orthopaedic Surgery Division of Musculoskeletal Oncology [facility] Evaluation + Plan note Extracted from: Title:ED Note Author:Mohan Garcia PA-C te:02/23/22 Sprain of left foot (S93.602 A: Unspecified sprain of left foot, initial encounter) Orders: Crutches Elastic Bandage Application XR Foot 3+ Views Left [facility]11-05-2022 Hospital Discharge instructions Patient Education 02/23/2022 [...] fully hardened. This may takeseveral hours. Take pmrp-icv-bbdcycj and prescription medicines only as told by [...] 09/27/2002 Document Revised: 04/11/2018 Document Reviewed: 04/11/2018 [employer] Patient Education 2020 [employer]Connect. 02/23/2022 11:07:01 How to Use Cold Therapy, Eycj-lq-Ryiq How to Use Cold Therapy Cold therapy, [...] 09/23/2008 Document Revised: 01/04/2019 Document Reviewed: 01/04/2019 [employer] Patient Education 2020 [employer] 02/23/2022 11:07:01 Elastic Bandage and RICE [...] limityour activities and whether you should start rvjjt-ar-hxcbua exercises for your injury. Ice Ice your [...] 09/27/2002 Document Revised: 12/26/2017 Document Reviewed: 12/26/2017 [employer] Patient Education 2020 uConnect. Follow Up Care 02/23/2022 09:05:48 With:CHELSEA KRAUS Address: [employer] [address] [place], [place] [id number]- Business (1) When:02/26/2022 10:46:43 Comments:Follow-up with your primary care provider in 3 to 5 days. If symptoms worsen, do not improve, or new symptoms arise please report back to emergency department for further evaluation. [facility]10-31-2022 History of Present illness Narrative* Kathrine Smith, [...] 18, 2022 3:09 PM [facility] Nurse Note* Lillie Smith - 11/08/2021 11:25 AM EDT UA performed as ordered. Lillie Smith [facility] History of Present illness Narrative* Macy Jones APRN.CNP - 10/04/2021 3:36 PM EDT Physical [facility] History general Narrative - Reported* Type Description Date Medical History Bernardo's thyroiditis Medical History Post- depression 2019 Surgical History D & C d/t miscarriage 08/2015 Surgical History LEEP 2012 Hospitalization History child [email or web address] Other Evaluation note* Diagnosis Acute bilateral low back pain with bilateral sciatica- Primary [facility]* Diagnosis Pelvic pain- Primary [facility]* Diagnosis Dysuria- Primary [facility]* Diagnosis Dysuria- Primary [facility]* Diagnosis Unspecified hypothyroidism- Primary [facility]* Diagnosis Lytic bone lesion of femur- Primary [facility]* Diagnosis Moderate episode of recurrent major depressive disorder (HCC)- Primary [facility]* Diagnosis Unspecified hypothyroidism- Primary Essential hypertension, malignant Lipids blood increased Other and unspecified hyperlipidemia Vegans' anemia Other vitamin B12 deficiency anemia [facility] Diagnosis Lytic bone lesion of femur- Primary [facility] Diagnosis Lytic bone lesion of femur- Primary Greater trochanteric bursitis of right hip Enthesopathy of hip region Chronic pain of right hip Chronic low back pain, unspecified back pain laterality, unspecified whether sciatica present Pain of right hip Bone lesion Disorder of bone and cartilage, unspecified [facility] [place] [facility]* Diagnosis Attention deficit hyperactivity disorder (ADHD), predominantly 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 ([facility]) Generalized anxiety disorder [facility] Diagnosis Irregular menses- Primary Irregular menstrual cycle [facility] Diagnosis Lytic bone lesion of femur documented in this [facility] [place] [facility]* Diagnosis Lytic bone lesion of femur documented in this [facility] [place] [facility]* Diagnosis Lytic bone lesion of femur documented in this encounter [facility] course Narrative No data available for this section [facility]* Attachments The following attachments cannot be sent through Care Everywhere. * Methylphenidate, ADULT (Swiss) [facility] No data available for this section [facility] (narrative)* Diagnostic Procedure Only (Routine) - Pending Review Specialty Diagnoses / Procedures Referred By Contac t Referred To Contact XR IMAGING Diagnoses Lytic bone lesion of femur Procedures XR HIP GENERAL 3V PELV/AP/LAT RIGHT RADEX HIP UNILATERAL WITH PELVIS 2-3 VIEWS Rosas Mckinney MD [address] [facility] [address] [place] [address] Xr Imaging Referral ID Status Reason Start Date Expiration Date Visits Requested Visits Authorized [id number] Pending Review Auto-Generat ed Referral 08/26/2022 03/28/2023 1 1 [facility] for referral (narrative)* Diagnostic Procedure Only (Routine) - Pending Review Specialty Diagnoses / Procedures Referred By Contac t Referred To Contact XR IMAGING Diagnoses Lytic bone lesion of femur Procedures XR HIP GENERAL 3V PELV/AP/LAT RIGHT RADEX HIP UNILATERAL WITH PELVIS 2-3 VIEWS Tiana Cronin PA-C [address] [place] [address] [place] [address] Referral ID Status Reason Start Date Expiration Date Visits Requested Visits Authorized [id number] Pending Review Auto-Generat ed Referral 03/18/2024 [address] [facility] for referral (narrative)* Diagnostic Procedure Only (Routine) - Closed Specialty Diagnoses / Procedures Referred By Contac t Referred To Contact XR IMAGING Diagnoses Lytic bone lesion of femur Procedures XR HIP GENERAL 3V PELV/AP/LAT RIGHT RADEX HIP UNILATERAL WITH PELVIS 2-3 VIEWS Roni Dumas MD [address] [place] [address] [place] [address] [place] [address] Referral ID Status Reason Start Date Expiration Date V isits Requested Visits Authorized [id number] Closed Auto-Generate d Referral 02/17/2023 03/18/2024 [address] [facility] for referral (narrative)* Diagnostic Procedure Only (Routine) - Closed Specialty Diagnoses / Procedures Referred By Contac t Referred To Contact XR IMAGING Diagnoses Lytic bone lesion of femur Procedures XR HIP GENERAL 3V PELV/AP/LAT RIGHT RADEX HIP UNILATERAL WITH PELVIS 2-3 VIEWS Rosas Mckinney MD [address] [place] [address] [place] [address] Referral ID Status Reason Start Date Expiration Date V isits Requested Visits Authorized [id number] Closed Auto-Generate d Referral 08/26/2022 03/28/2023 [address] [facility] for referral (narrative)* Diagnostic Procedure Only (Routine) - Closed Specialty Diagnoses / Procedures Referred By Bry pittman Referred To Contact XR IMAGING Diagnoses Lytic bone lesion of femur Procedures XR HIP GENERAL 3V PELV/AP/LAT RIGHT RADEX HIP UNILATERAL WITH PELVIS 2-3 VIEWS Roni Dumas MD [address] [place] [address] Xr Imaging [facility] Referral ID Status Reason Start Date Expiration Date V isits Requested Visits Authorized [id number] Closed Auto-Generate d Referral 02/18/2022 03/20/2023 1 1 [facility] Reason for Referral Specialty Diagnoses / Procedures Referred By Bry pittman Referred To Contact [facility] Diagnoses Acute bilateral low back pain with bilateral sciatica Procedures CONSULT TO PHYSICAL THERAPY PHYSICAL THERAPY EVALUATION HIGH COMPLEX 45 MINS Macy Jones, LEGEND MAKER.ANNEALING OPERATOR [address] [place] [address] [facility] [place] [address] [place] [address] Referral ID Status Reason Start Date Expiration Date Visits Requested Visits Authorized [id number] Pending Review Auto-Generat ed Referral 10/04/2021 10/04/2022 1 1 Specialty Diagnoses / Procedures Referred By Bry pittman Referred To Contact MR IMAGING Diagnoses Greater trochanteric bursitis of right hip Chronic pain of right hip Pain of right hip Bone lesion Procedures MRI HIP WO IVCON RIGHT MRI ANY JT LOWER EXTREM W/O CONTRAST MATRL Tiana Cronin PA-C [address] [place] [address] Mr Imaging [place] [address] Referral ID Status Reason Start Date Expiration Date Visits Requested Visits Authorized [id number] Authorized Auto-Generat ed Referral 02/25/2023 03/26/2024 1 [...] or prosecute any alcohol or drug abuse patient.[facility] the event this information is protected by the Federal Confidentiality of Alcohol and Drug Abuse Patient Records regulations: The Federal rules restrict any use of the information to criminally investigate or prosecute any alcohol or drug abuse patient.[facility] the event this information is protected by the Federal Confidentiality of Alcohol and Drug Abuse Patient Records regulations: The Federal rules restrict any use of the information to criminally investigate or prosecute any alcohol or drug abuse patient.[facility] the event this information is protected by the Federal Confidentiality of Alcohol and Drug Abuse Patient Records regulations: The Federal rules restrict any use of the information to criminally investigate or prosecute any alcohol or drug abuse patient.[facility] the event this information is protected by the Federal Confidentiality of Alcohol and Drug Abuse Patient Records regulations: The Federal rules restrict any use of the information to criminally investigate or prosecute any alcohol or drug abuse patient.[facility] the event this information is protected by the Federal Confidentiality of Alcohol and Drug Abuse Patient Records regulations: The Federal rules restrict any use of the information to criminally investigate or prosecute any alcohol or drug abuse patient.[facility]on[facility] the event this information is protected by the Federal Confidentiality of Alcohol and Drug Abuse Patient Records regulations: The Federal rules restrict any use of the information to criminally investigate or prosecute any alcohol or drug abuse patient.[facility]on[facility] the event this information is protected by the Federal Confidentiality of Alcohol and Drug Abuse Patient Records regulations: The Federal rules restrict any use of the information to criminally investigate or prosecute any alcohol or drug abuse patient.[facility]on[facility] the event this information is protected by the Federal Confidentiality of Alcohol and Drug Abuse Patient Records regulations: The Federal rules restrict any use of the information to criminally investigate or prosecute any alcohol or drug abuse patient.[facility]on[facility] the event this information is protected by the Federal Confidentiality of Alcohol and Drug Abuse Patient Records regulations: The Federal rules restrict any use of the information to criminally investigate or prosecute any alcohol or drug abuse patient.[facility]on[facility] the event this information is protected by the Federal Confidentiality of Alcohol and Drug Abuse Patient Records regulations: The Federal rules restrict any use of the information to criminally investigate or prosecute any alcohol or drug abuse patient.[facility]on[facility] the event this information is protected by the Federal Confidentiality of Alcohol and Drug Abuse Patient Records regulations: The Federal rules restrict any use of the information to criminally investigate or prosecute any alcohol or drug abuse patient.[facility]on[facility] the event this information is protected by the Federal Confidentiality of Alcohol and Drug Abuse Patient Records regulations: The Federal rules restrict any use of the information to criminally investigate or prosecute any alcohol or drug abuse patient.[facility] Patient Care team informatio n (unrecognized section and content) Machine Overhauler Relationship Specialty Start Date End Date Anupama Brown DO [address] [place] [address] [place] [address] PCP - General Family Medicine 07/25/22 Emile Mesa MD [address] [place] [address] Gastroenterology 07/25/22 Guillaume Vasquez, DO [address] [place] [address] ROTARY SAW OPERATOR 07/25/22 Machine Overhauler Relationship Specialty Start Date End Date Anupama Brown DO [address] [address] PCP - General Family Medicine 07/25/22 Emile Mesa MD [address] [place] [address] Gastroenterology 07/25/22 Guillaume Vasquez DO [address] [place] [address] ROTARY SAW OPERATOR 07/25/22 Machine Overhauler Relationship Specialty Start Date End Date Anupama Brown DO [address] [place] [address] PCP - General Family Medicine 07/25/22 Emile Mesa MD [address] [place] [address] Gastroenterology 07/25/22 Guillaume Vasquez DO [address] [place] [address] ROTARY SAW OPERATOR 07/25/22 Machine Overhauler Relationship Specialty Start Date End Date Anupama Brown, [address] [place] [address] PCP - General Family Medicine 07/25/22 Emile Mesa MD [address] [place] [address] [place] [address] Gastroenterology 07/25/22 Guillaume Vasquez DO [address] [place] [address] [place] [address] ROTARY SAW OPERATOR 07/25/22 Machine Overhauler Relationship Specialty Start Date End Date Chelsea Kraus DO [address] [facility] [address] [place] [address] PCP - General Family Medicine 07/02/19 Machine Overhauler Relationship Specialty Start Date End Date Anupama Brown MD [address] [place] [id number] PCP - General Family Medicine 03/04/23 Machine Overhauler Relationship Specialty Start Date End Date Anupama Brown MD [address] [place] [id number] PCP - General Family Medicine 03/04/23 Machine Overhauler Relationship Specialty Start Date End Date Anupama Brown DO [address] [place] [address] PCP - General Family Medicine 07/25/22 Emile Mesa MD [address] [place] [address] [place] [address] Gastroenterology 07/25/22 Guillaume Vasquez DO [address] [place] [address] Tunneller 07/25/22 Machine Overhauler Relationship Specialty Start Date End Date KevinAnupama garcía DanielleDO [address] [facility] [place] [address] PCP - General Family Medicine 07/25/22 Emile Mesa MD [address] [place] [address] Gastroenterology 07/25/22 Guillaume Vasquez DO [address] [place] [address] Tunneller 07/25/22 Reason for Visit (unrecogniz ed section and content) Reason Comments New Pain Tumor/Mass Specialty Diagnoses / Procedures Referred By Contac t Referred To Contact Orthopedics Diagnoses Lytic bone lesion of femur Procedures CONSULT TO ORTHOPAEDICS OFFICE/OUTPATIENT NEW HIGH MDM 60-74 MINUTES Roni Dumas MD [address] [place] [address] [place] [address] Referral ID Status Reason Start Date Expiration Date V isits Requested Visits Authorized [id number] Closed PCP Requested Referral 02/18/2022 02/18/2023 1 1 Reason Comments New Pain Reason Comments Radio Gen RMP Specialty Diagnoses / Procedures Referred By Contac t Referred To Contact XR IMAGING Diagnoses Lytic bone lesion of femur Procedures XR HIP GENERAL 3V PELV/AP/LAT RIGHT RADEX HIP UNILATERAL WITH PELVIS 2-3 VIEWS Roni Dumas MD [address] [facility] [place] [address] [place] [address] Referral ID Status Reason Start Date Expiration Date V isits Requested Visits Authorized [id number] Closed Auto-Generate d Referral 02/17/2023 03/18/2024 1 1 Specialty Diagnoses / Procedures Referred By Contac t Referred To Contact XR IMAGING Diagnoses Lytic bone lesion of femur Procedures XR HIP GENERAL 3V PELV/AP/LAT RIGHT RADEX HIP UNILATERAL WITH PELVIS 2-3 VIEWS Rosas Mckinney MD [address] [place] [address] Xr Imaging [place] [address] Referral ID Status Reason Start Date Expiration Date V isits Requested Visits Authorized [id number] Closed Auto-Generate d Referral 08/26/2022 03/28/2023 1 1 Referral ID Status Reason Start Date Expiration Date V isits Requested Visits Authorized [id number] Closed Auto-Generate d Referral 02/18/2022 03/20/2023 1 1 INFORMATION SOURCE (unrecogn ized section and content) DATE CREATED AUTHOR [facility]/08/2022 [facility] DATE CREATED AUTHOR AUTHOR'S ORGANIZ ATION 05/26/2022 [facility] DATE CREATED AUTHOR AUTHOR'S ORGANIZ ATION 05/04/2023 [facility] DATE CREATED AUTHOR AUTHOR'S ORGANIZ ATION 06/06/2023 [facility] DATE CREATED AUTHOR AUTHOR'S ORGANIZ ATION 10/17/2023 [facility] DATE CREATED AUTHOR AUTHOR'S ORGANIZ ATION 01/15/2024 [facility] DATE CREATED AUTHOR AUTHOR'S ORGANIZ ATION 01/20/2024 [facility] FOR RECORDS PERTAINING TO PATIENTS WHO ARE [...] BE BASED ON THE PRIMARY CLINICAL RECORDS. [employer] [facility]. provides no warranty or guarantee of the accuracy or completeness of information in this document.
[2024-01-24 11:09] VITALS: BP 120/73; PULSE 89
--- NOTE | 2024-01-24 11:36 | US_ITS ---
[address] [address] Patient Name: JESSEE JEFFERS MRN: [id number] date: 1990 Sex: F Assigned Patient Location: US Current Patient Location: US Accession/Order Number: [id number] Exam Date: 01/24/2024 11:40 Report Date: 01/25/2024 06:17 At the request of: TEE RUBIN Procedure: US OB BPP w non-stress EXAMINATION: US OB BPP w non-stress HISTORY:LARGE FOR GESTATIONAL AGE COMPARISON: Ultrasound OB biophysical 01/09/2024 TECHNIQUE: Ultrasound biophysical profile was performed in the radiology department. BREATHING MOVEMENTS: 0 GROSS BODY MOVEMENTS: 2 TONE: 2 QUALITATIVE AMNIOTIC FLUID VOLUME: 2 PRESENTATION: CEPHALIC HEART RATE: 125.58 bpm AMNIOTIC FLUID VOLUME: 24.15 cm GESTATIONAL AGE: 33 weeks 2 days US/US OB BPP w non-stress IMPRESSION: 1. Total biophysical profile score: 6 2. Amniotic fluid volume is at 95th percentile. [facility] notified of these findings at time of imaging. Electronically authenticated by: JENNIFER HARTLEY Date: 01/25/2024 06:17
== END 2024-01-24 12:45 | disposition home or self-care (01) ==
LOC: US 06:26 → FBC 11:01
PROVIDERS: Visit Provider Obstetrics & Gynecology
DX: O36.63X0 Maternal care for excessive fetal growth, third trimester, not applicable or unspecified (principal); Z3A.33 33 weeks gestation of pregnancy
CPT/HCPCS: 76818

== ENCOUNTER 2024-01-28 07:01 | Outpatient (OUT) | payer OTHER, SELFPAY ==
--- OUTSIDE RECORDS SUMMARY | 2024-01-28 07:05 | XMS_ITS | CCD ---
Author Organization [facility] Care Team Providers Care Disciplinary Hearing Officer Name Role Phone Unavailable Primary Care Provider UnavailCHELSEA Murrieta Primary Care Physician [phone] Janice De La Rosa Unavailable Unavailable Unavailable [...] Unavailable PEDRO, DR OLIVEIRA Primary Care Unavailable GUSTINE, DR EMELIA Luna Consulting Unavailable PEDRO, DR OLIVEIRA Consulting Unavailable Chayo Anne Attending Unavailable Roxanne MOSLEY Attending Unavailable [place]akatlyn, Imad Unavailable Anupama Brown DO Primary Care Provider Moshe PALOMINO, Emile Unavailable Guillaume Vasquez DO Unavailable Anupama Brown DO Primary Care Provider Emile Mesa MD Unavailable Chelsea Kraus DO Primary Care Provider ASIF SCHAEFER [...] Unavailable Unavailable Primary Care Provider Unavailabl e PERDO, GUILLAUME R Referring Unavailable [facility] Unavailabl e [facility], [facility] Primary Care Unavailabl e ELISEO SANDERSON Referring Unavailable PEDRO, GUILLAUME R Referring Unavailable [facility] Unavailabl e PEDRO, GUILLAUME R Referring Unavailable KEVIN, [facility] Primary Care Unavailabl e KEVIN, [facility] Primary Care Unavailabl e ASIF SCHAEFER Referring Unavailable [facility], [facility] Primary Care Unavailabl e KEVIN, [facility] Primary Care Unavailabl e KEVIN, [facility] Primary Care Unavailabl e ROSAS MCKINNEY Attending Unavailable ABHYANKAR, RONI Referring Unavailable KEVIN, [facility] Primary Care Unavailabl e ABHYANKAR, RONI Referring Unavailable KEVIN, [facility] Primary Care Unavailabl e KEVIN, [facility] Primary Care Unavailabl e Medications Current Medications Medication Drug Class(es) Dates Sig (Normalized) Sig (Original) amoxicillin 500 mg oral capsule (1 source) Penicillin-class Antibacterial Start: 05-26-2022 End: 06-05-2022 take 1 capsule by mouth every twelve hours amoxicillin 500 mg Cap 500 mg = 1 cap(s), Oral, q12hr, X 10 day(s), # 20 cap(s), Refills(s) 0, Pharmacy: [facility], 172, cm, 05/26/22 9:34:00 EST, [...] Start: 09-11-2021 take 1 capsule by [facility] once daily in the morning omeprazole (PRILOSEC) 40 mg capsule Take 1 capsule by mouth once daily in the morning, wait 20-30 minutes before eating or taking other medications 90 capsule 1 12/31/2021 Active Comment on above: Take 1 capsule by [facility] once daily. Wait 20-30 minutes before eating or taking other medications. Take 1 capsule by mo [facility] once daily in the morning, wait 20-30 minutes before eating or taking other medications Take 1 capsule by mo [facility] once daily. 20-30 minutes before eating or [...] therapy) Start: 02-11-2023 take 1 capsule by [facility] once daily in the morning amphetamine-dextroamphetamine XR [...] Comment on above: Take 1 capsule by [facility] twice daily. escitalopram 20 mg oral tablet [...] Comment on above: Take 1 tablet by [facility] once daily. fluconazole 150 mg oral tablet (8 sources) Azole Antifungal Start: 02-07-20 End: 02-26-20 take 1 tablet by mouth once fluconazole (DIFLUCAN) 150 mg tablet 1 (one) tablet by mouth one time dose 1 tablet 1 02/06/2022 02/25/2023 Discontinued Comment on above: 1 (one) tablet by [facility] one time dose hydrOXYzine hydrochloride 50 mg [...] Comment on above: Take 1 tablet by [facility] three times daily as needed. 10 [...] 02/25/2023 Discontinued Start: 08-23-2020 End: 02-25-2023 medroxyPROGESTERone (DEPO-KY OVERA) 150 mg/mL injection Indications: Excessive or [...] (Bld) [#/Vol] 10*3/uL Normal <0.11 [facility] Comment on above: Order Comment: Speci men Type: BLOOD SPECIMEN Ordering Facility: External Submitter Address: , , Performed By: #### 5 5454-3 #### [facility] CLIA [id number] [address] [place] [address] [place] Basophils/100 WBC (Bld) 0.2 % Normal [facility] Comment on above: Order Comment: Speci men Type: BLOOD SPECIMEN Ordering Facility: External Submitter Address: , , Performed By: #### 5 5454-3 #### [facility] CLIA [id number] [address] [place] [address] [place] Differential cell count method Nom (Bld) Auto Normal [facility] Comment on above: Order Comment: Speci men Type: BLOOD SPECIMEN Ordering Facility: External Submitter Address: , , Performed By: #### 5 5454-3 #### [facility] CLIA [id number] [address] [place] [address] [place] Eosinophils (Bld) [#/Vol] 0.06 10*3/uL Normal <0.46 [facility] Comment on above: Order Comment: Speci men Type: BLOOD SPECIMEN Ordering Facility: External Submitter Address: , , Performed By: #### 5 5454-3 #### [facility] CLIA [id number] [address] [place] [address] [place] Eosinophils/100 WBC (Bld) 0.6 % Normal [facility] Comment on above: Order Comment: Speci men Type: BLOOD SPECIMEN Ordering Facility: External Submitter Address: , , Performed By: #### 5 5454-3 #### [facility] CLIA [id number] [address] [place] [address] [place] Erythrocyte distribution width (RBC) [Ratio] 13.3 % Normal 11.5-15.0 [facility] Comment on above: Order Comment: Speci men Type: BLOOD SPECIMEN Ordering Facility: External Submitter Address: , , Performed By: #### 5 5454-3 #### [facility] CLIA [id number] [address] [place] [address] [place] Hematocrit (Bld) [Volume fraction] 32.8 % Low 36.0-46.0 [facility] Comment on above: Order Comment: Speci men Type: BLOOD SPECIMEN Ordering Facility: External Submitter Address: , , Performed By: #### 5 5454-3 #### [facility] CLIA [id number] [address] [place] [address] [place] Hemoglobin (Bld) [Mass/Vol] 10.7 g/dL Low 11.5-15.5 [facility] Comment on above: Order Comment: Speci men Type: BLOOD SPECIMEN Ordering Facility: External Submitter Address: , , Performed By: #### 5 5454-3 #### [facility] CLIA [id number] [address] [place] [address] [place] Immature granulocytes (Bld) [#/Vol] 0.05 10*3/uL Normal <0.10 [facility] Comment on above: Order Comment: Speci men Type: BLOOD SPECIMEN Ordering Facility: External Submitter Address: , , Performed By: #### 5 5454-3 #### [facility] CLIA [id number] [address] [place] [address] [place] Immature granulocytes/100 WBC (Bld) 0.5 % Normal [facility] Comment on above: Order Comment: Speci men Type: BLOOD SPECIMEN Ordering Facility: External Submitter Address: , , Performed By: #### 5 5454-3 #### [facility] CLIA [id number] [address] [place] [address] [place] Lymphocytes (Bld) [#/Vol] 1.55 10*3/uL Normal 1.00-4.00 [facility] Comment on above: Order Comment: Speci men Type: BLOOD SPECIMEN Ordering Facility: External Submitter Address: , , Performed By: #### 5 5454-3 #### [facility] CLIA [id number] [address] [place] [address] [place] Lymphocytes/100 WBC (Bld) 15.1 % Normal [facility] Comment on above: Order Comment: Speci men Type: BLOOD SPECIMEN Ordering Facility: External Submitter Address: , , Performed By: #### 5 5454-3 #### [facility] CLIA [id number] [address] [place] [address] [place] MCH (RBC) [Entitic mass] 27.8 pg Normal 26.0-34.0 [facility] Comment on above: Order Comment: Speci men Type: BLOOD SPECIMEN Ordering Facility: External Submitter Address: , , Performed By: #### 5 5454-3 #### [facility] CLIA [id number] [address] [place] [address] [place] MCHC (RBC) [Mass/Vol] 32.6 g/dL Normal 30.5-36.0 [facility] Comment on above: Order Comment: Speci men Type: BLOOD SPECIMEN Ordering Facility: External Submitter Address: , , Performed By: #### 5 5454-3 #### [facility] CLIA [id number] [address] [place] [address] [place] MCV (RBC) [Entitic vol] 85.2 fL Normal 80.0-100.0 [facility] Comment on above: Order Comment: Speci men Type: BLOOD SPECIMEN Ordering Facility: External Submitter Address: , , Performed By: #### 5 5454-3 #### [facility] CLIA [id number] [address] [place] [address] [place] Monocytes (Bld) [#/Vol] 0.77 10*3/uL Normal <0.87 [facility] Comment on above: Order Comment: Speci men Type: BLOOD SPECIMEN Ordering Facility: External Submitter Address: , , Performed By: #### 5 5454-3 #### [facility] CLIA [id number] [address] [place] [address] [place] Monocytes/100 WBC (Bld) 7.5 % Normal [facility] Comment on above: Order Comment: Speci men Type: BLOOD SPECIMEN Ordering Facility: External Submitter Address: , , Performed By: #### 5 5454-3 #### [facility] CLIA [id number] [address] [place] [address] [place] Neutrophils (Bld) [#/Vol] 7.81 10*3/uL High 1.45-7.50 [facility] Comment on above: Order Comment: Speci men Type: BLOOD SPECIMEN Ordering Facility: External Submitter Address: , , Performed By: #### 5 5454-3 #### [facility] CLIA [id number] [address] [place] [address] [place] Neutrophils/100 WBC (Bld) 76.1 % Normal [facility] Comment on above: Order Comment: Speci men Type: BLOOD SPECIMEN Ordering Facility: External Submitter Address: , , Performed By: #### 5 5454-3 #### [facility] CLIA [id number] [address] [place] [address] [place] Nucleated RBC (Bld) [#/Vol] 10*3/uL Normal <0.01 [facility] Comment on above: Order Comment: Speci men Type: BLOOD SPECIMEN Ordering Facility: External Submitter Address: , , Performed By: #### 5 5454-3 #### [facility] CLIA [id number] [address] [place] [address] [place] Nucleated RBC/100 WBC (Bld) [Ratio] 0.0 /100 WBC Normal [facility] Comment on above: Order Comment: Speci men Type: BLOOD SPECIMEN Ordering Facility: External Submitter Address: , , Performed By: #### 5 5454-3 #### [facility] CLIA [id number] [address] [place] [address] [place] Platelet mean volume (Bld) [Entitic vol] 11.3 fL Normal 9.0-12.7 [facility] Comment on above: Order Comment: Speci men Type: BLOOD SPECIMEN Ordering Facility: External Submitter Address: , , Performed By: #### 5 5454-3 #### [facility] CLIA [id number] [address] [place] [address] [place] Platelets (Bld) [#/Vol] 172 10*3/uL Normal 150-400 [facility] Comment on above: Order Comment: Speci men Type: BLOOD SPECIMEN Ordering Facility: External Submitter Address: , , Performed By: #### 5 5454-3 #### [facility] CLIA [id number] [address] [place] [address] [place] RBC (Bld) [#/Vol] 3.85 10*6/uL Low 3.90-5.20 [facility] Comment on above: Order Comment: Speci men Type: BLOOD SPECIMEN Ordering Facility: External Submitter Address: , , Performed By: #### 5 5454-3 #### [facility] CLIA [id number] [address] [place] [address] [place] WBC (Bld) [#/Vol] 10.26 10*3/uL Normal 3.70-11.00 [facility] Comment on above: Order Comment: Speci men Type: BLOOD SPECIMEN Ordering Facility: External Submitter Address: , , Performed By: #### 5 5454-3 #### [facility] CLIA [id number] [address] [place] [address] [place] T4 Free SerPl-mCncon 024 Free T4 [Mass/Vol] 0.9 ng/dL Normal 0.9-1.7 [facility] Comment on above: Order Comment: Speci men Type: BLOOD SPECIMEN Ordering Facility: [facility] Karina Address: [facility] [address] [place] [address] Performed By: #### 3 024-7, 3016-3 #### [facility] CLIA [id number] [address] [place] [address] [place] TSH SerPl-aCncon 01-05-2024 TSH Qn 1.220 m[IU]/L Normal 0.270-4.200 [facility] Comment on above: Order Comment: Speci men [...] Nassar, et al. 2017 Guidelines of the [place] [employer] for the Diagnosis and Management of Thyroid Disease during and the . Thyroid, 2017:27:3:315-389. Performed By: #### 5 5454-3 #### [facility] CLIA [id number] [address] [place], [place] [address] [place] T4 Free SerPl-mCncon 024 Free T4 [Mass/Vol] 1.1 ng/dL Normal 0.9-1.7 [facility] Comment on above: Order Comment: Speci men Type: BLOOD SPECIMEN Ordering Facility: [facility] Karina Address: [facility] [place] [place] [address] Performed By: #### 3 024-7, 3016-3 #### [facility] CLIA [id number] [address] [place], [place] [address] [place] TSH SerPl-aCncon 12-08-2023 TSH Qn 0.607 m[IU]/L Normal 0.270-4.200 [facility] Comment on above: Order Comment: Speci men Type: BLOOD SPECIMEN Ordering Facility: [facility] Burna Address: [address] [place] [address] Result Comment: If t he patient is , TSH reference range varies by gestational period: First Trimester (weeks 9-12): 0.180-2.990 mIU/L Second Trimester: 0.110-3.980 mIU/L Third Trimester: 0.480-4.710 mIU/L Manuel Grayson et al. A Practical Approach for the Verifications and Determination of Site- and Trimester-Specific Reference Intervals for Thyroid Function tests in . Thyroid, 2019:29:3:412-420. Emanuel Nassar, et al. 2017 Guidelines of the [place] Thy[employer] Association for the Diagnosis and Management of Thyroid Disease during and the . Thyroid, 2017:27:3:315-389. Performed By: #### 3 024-7, 3016-3 #### [facility] CLIA [id number] [address] [place] [address] [place] CBC W Auto Differential pane l (Bld)on 11-20-2023 Basophils (Bld) [#/Vol] 0.04 10*3/uL Normal <0.11 [facility] Comment on above: Order Comment: Speci men Type: BLOOD SPECIMEN Ordering Facility: [facility] Burna Address: [address] [place] [address] Performed By: #### 5 7021-8 #### [facility] CLIA [id number] [address] [place] [address] Basophils/100 WBC (Bld) 0.6 % Normal [facility] Comment on above: Order Comment: Speci men Type: BLOOD SPECIMEN Ordering Facility: [facility] Burna Address: [address] [place] [address] Performed By: #### 5 7021-8 #### [facility] CLIA [id number] [address] [place] [address] Differential cell count method Nom (Bld) Auto Normal [facility] Comment on above: Order Comment: Speci men Type: BLOOD SPECIMEN Ordering Facility: [facility] Burna Address: [address] [place] [id number] Performed By: #### 5 7021-8 #### [facility] CLIA [id number] [address] [place] [address] Eosinophils (Bld) [#/Vol] 0.05 10*3/uL Normal <0.46 [facility] Comment on above: Order Comment: Speci men Type: BLOOD SPECIMEN Ordering Facility: [facility] Burna Address: [facility] [address] [place] [address] Performed By: #### 5 7021-8 #### [facility] CLIA [id number] [address] [place] [address] Eosinophils/100 WBC (Bld) 0.7 % Normal [facility] Comment on above: Order Comment: Speci men Type: BLOOD SPECIMEN Ordering Facility: [facility] Burna Address: [facility] [address] [place] [address] Performed By: #### 5 7021-8 #### [facility] CLIA [id number] [address] [place] [address] Erythrocyte distribution width (RBC) [Ratio] 12.9 % Normal 11.5-15.0 [facility] Comment on above: Order Comment: Speci men Type: BLOOD SPECIMEN Ordering Facility: [facility] Address: [facility] [address] [place] [id number] Performed By: #### 5 7021-8 #### [facility] CLIA [id number] [address] [place] [address] Hematocrit (Bld) [Volume fraction] 35.0 % Low 36.0-46.0 [facility] Comment on above: Order Comment: Speci men Type: BLOOD SPECIMEN Ordering Facility: [facility] OBTIMING INSPECTOR Burna Address: [facility] [address] [place] [id number] Performed By: #### 5 7021-8 #### [facility] CLIA [id number] [address] [place] [address]76 Hemoglobin (Bld) [Mass/Vol] 11.4 g/dL Low 11.5-15.5 [facility] Comment on above: Order Comment: Speci men Type: BLOOD SPECIMEN Ordering Facility: [facility] Burna Address: [address] [place] [address] Performed By: #### 5 7021-8 #### [facility] CLIA [id number] [address] [place] [address]1988 Immature granulocytes (Bld) [#/Vol] 10*3/uL Normal <0.10 [facility] Comment on above: Order Comment: Speci men Type: BLOOD SPECIMEN Ordering Facility: [facility] Burna Address: [address] [place] [address] Performed By: #### 5 7021-8 #### [facility] CLIA [id number] [address] [place] [address] Immature granulocytes/100 WBC (Bld) 0.3 % Normal [facility] Comment on above: Order Comment: Speci men Type: BLOOD SPECIMEN Ordering Facility: [facility] Burna Address: [address] [place] [address] Performed By: #### 5 7021-8 #### [facility] CLIA [id number] [address] [place] [address] 19650 Lymphocytes (Bld) [#/Vol] 1.25 10*3/uL Normal 1.00-4.00 [facility] Comment on above: Order Comment: Speci men Type: BLOOD SPECIMEN Ordering Facility: [facility] INSPECTOR Burna Address: [address] [place] [address] Performed By: #### 5 7021-8 #### [facility] CLIA [id number] [address] [place] [address] 59118 Lymphocytes/100 WBC (Bld) 18.3 % Normal [facility] Comment on above: Order Comment: Speci men Type: BLOOD SPECIMEN Ordering Facility: [facility] Burna Address: [address] [place] [address] Performed By: #### 5 7021-8 #### [facility] CLIA [id number] [address] [place] [address] MCH (RBC) [Entitic mass] 29.9 pg Normal 26.0-34.0 [facility] Comment on above: Order Comment: Speci men Type: BLOOD SPECIMEN Ordering Facility: [facility] INSPECT[facility] Burna Address: [facility] [place] [address] Performed By: #### 5 7021-8 #### [facility] CLIA [id number] [address] [place] [address] 67673 MCHC (RBC) [Mass/Vol] 32.6 g/dL Normal 30.5-36.0 [facility] Comment on above: Order Comment: Speci men Type: BLOOD SPECIMEN Ordering Facility: [facility] INS[facility] Burna Address: [facility] [address] [place] [id number] Performed By: #### 5 7021-8 #### [facility] CLIA [id number] [address] [place] [address] 22485 MCV (RBC) [Entitic vol] 91.9 fL Normal 80.0-100.0 [facility] Comment on above: Order Comment: Speci men Type: BLOOD SPECIMEN Ordering Facility: [facility] Address: [facility] [address] [place] [id number] Performed By: #### 5 7021-8 #### [facility] CLIA [id number] [address] [place] [address] 20065 Monocytes (Bld) [#/Vol] 0.52 10*3/uL Normal <0.87 [facility] Comment on above: Order Comment: Speci men Type: BLOOD SPECIMEN [facility] Address: [facility] [address] [place] [id number] Performed By: #### 5 7021-8 #### [facility] CLIA [id number] [address] [place] [address] 69319 Monocytes/100 WBC (Bld) 7.6 % Normal [facility] Comment on above: Order Comment: Speci men Type: BLOOD SPECIMEN Ordering Facility: [facility]ING INSPECTOR Burna Address: [address] [place] [address] Performed By: #### 5 7021-8 #### [facility] CLIA [id number] [address] [place] [address] 04595 Neutrophils (Bld) [#/Vol] 4.94 10*3/uL Normal 1.45-7.50 [facility] Comment on above: Order Comment: Speci men Type: BLOOD SPECIMEN Ordering Facility: [facility] INS[facility] Burna Address: [address] [place] [address] Performed By: #### 5 7021-8 #### [facility] CLIA [id number] [address] [place] [address] 35798 Neutrophils/100 WBC (Bld) 72.5 % Normal [facility] Comment on above: Order Comment: Speci men Type: BLOOD SPECIMEN Ordering Facility: [facility] INSPECT[facility] Burna Address: [address] [place] [address] Performed By: #### 5 7021-8 #### [facility] CLIA [id number] [address] [place] [address] 72335 Nucleated RBC (Bld) [#/Vol] 10*3/uL Normal <0.01 [facility] Comment on above: Order Comment: Speci men Type: BLOOD SPECIMEN Ordering Facility: [facility] Burna Address: [address] [place] [address] Performed By: #### 5 7021-8 #### [facility] CLIA [id number] [address] [place] [address] 38979 Nucleated RBC/100 WBC (Bld) [Ratio] 0.0 /100 WBC Normal [facility] Comment on above: Order Comment: Speci men Type: BLOOD SPECIMEN Ordering Facility: [facility] Address: [address] [place] [address] Performed By: #### 5 7021-8 #### [facility] CLIA [id number] [address] [place] [address] 14136 Platelet mean volume (Bld) [Entitic vol] 11.4 fL Normal 9.0-12.7 [facility] Comment on above: Order Comment: Speci men Type: BLOOD SPECIMEN [facility] Address: [facility] [place] [place] [address] Performed By: #### 5 7021-8 #### [facility] CLIA [id number] [address] [place] [address] 76498 Platelets (Bld) [#/Vol] 167 10*3/uL Normal 150-400 [facility] Comment on above: Order Comment: Speci men Type: BLOOD SPECIMEN Ordering Facility: [facility] INSPECT[facility] Burna Address: [facility] [place] [address] Performed By: #### 5 7021-8 #### [facility] CLIA [id number] [address] [place] [address] 78778 RBC (Bld) [#/Vol] 3.81 10*6/uL Low 3.90-5.20 [facility] Comment on above: Order Comment: Speci men Type: BLOOD SPECIMEN Ordering Facility: [facility] Address: [facility] [place] [address] Performed By: #### 5 7021-8 #### [facility] CLIA [id number] [address] [place] [address] 16227 WBC (Bld) [#/Vol] 6.82 10*3/uL Normal 3.70-11.00 [facility] Comment on above: Order Comment: Speci men Type: BLOOD SPECIMEN [facility] Facility[facility] Address: [facility] [place] [place] [address] Performed By: #### 5 7021-8 #### [facility] CLIA [id number] [address] [place] [address] 31821 GESTATIONAL GLUCOSE SCREEN, 1-HOUR, 50 GRAM, NON-FASTINGon 11-20-2023 Glucose [Mass/Vol] 97 mg/dL Normal 74-134 [facility] Comment on above: Order Comment: Tammy mares Type: BLOOD SPECIMEN Ordering Facility: [facility] OBT[facility] INSPECTOR Burna Address: [facility] [place] [address] [place] [address] Result Comment: [facility] Congress of Obstetricians and Gynecologists (Alma/Adrián) guidelines state a gestational diabetes mellitus positive screen is made, in women not previously diagnosed with overt diabetes, when the 1 hr plasma glucose level is equal to or above 140 mg/dL. The [facility] [place] recommends a 135 mg/dL cutoff. Performed By: #### G LTGST #### [facility] CLIA [id number] [address] [place] [address] [place] T4 Free SerPl-mCncon 024 Free T4 [Mass/Vol] 1.0 ng/dL Normal 0.9-1.7 [facility] Comment on above: Order Comment: Tammy mares Type: BLOOD SPECIMEN Ordering Facility: [facility] Address: [facility] [address] [place] [address] Performed By: #### 3 024-7, 3016-3 #### [facility] CLIA [id number] [address] [place] [address] [place] TSH SerPl-aCncon 10-22-2023 TSH Qn 4.510 m[IU]/L High 0.270-4.200 [facility] Comment on above: Order Comment: Tammy mares Type: BLOOD SPECIMEN Ordering Facility: [facility] Address: [facility] [place] [place] [address] Result Comment: If t he patient is , TSH reference range varies by gestational period: First Trimester (weeks 9-12): 0.180-2.990 mIU/L Second Trimester: 0.110-3.980 mIU/L Third Trimester: 0.480-4.710 mIU/L Manuel Grayson et al. A Practical Approach for the Verifications and Determination of Site- and Trimester-Specific Reference Intervals for Thyroid Function tests in . Thyroid, 2019:29:3:412-420. Emanuel Nassar, et al. 2017 Guidelines of the [place] Thyroid Association for the Diagnosis and Management of Thyroid Disease during and the . Thyroid, 2017:27:3:315-389. Performed By: #### 3 024-7, 3016-3 #### [facility] CLIA [id number] [facility] [place] [address] [place] CBC W Auto Differential pane l (Bld)on 08-08-2023 Basophils (Bld) [#/Vol] 10*3/uL Normal <0.11 [facility] Comment on above: Order Comment: Speci men Type: BLOOD SPECIMEN Ordering Facility: External Submitter Address: , , Performed By: #### 5 7021-8 #### [facility] CLIA [id number] [address] [place] [address] Basophils/100 WBC (Bld) 0.3 % Normal [facility] Comment on above: Order Comment: Speci men Type: BLOOD SPECIMEN Ordering Facility: External Submitter Address: , , Performed By: #### 5 7021-8 #### [facility] CLIA [id number] [address] [place] [address] 46114 Differential cell count method Nom (Bld) Auto Normal [facility] Comment on above: Order Comment: Speci men Type: BLOOD SPECIMEN Ordering Facility: External Submitter Address: , , Performed By: #### 5 7021-8 #### [facility] CLIA [id number] [address] [place] [address] 77376 Eosinophils (Bld) [#/Vol] 0.06 10*3/uL Normal <0.46 [facility] Comment on above: Order Comment: Speci men Type: BLOOD SPECIMEN Ordering Facility: External Submitter Address: , , Performed By: #### 5 7021-8 #### [facility] CLIA [id number] [address] [place] [address] 06292 Eosinophils/100 WBC (Bld) 0.9 % Normal [facility] Comment on above: Order Comment: Speci men Type: BLOOD SPECIMEN Ordering Facility: External Submitter Address: , , Performed By: #### 5 7021-8 #### [facility] CLIA [id number] [address] [place] [address] 17513 Erythrocyte distribution width (RBC) [Ratio] 13.7 % Normal 11.5-15.0 [facility] Comment on above: Order Comment: Speci men Type: BLOOD SPECIMEN Ordering Facility: External Submitter Address: , , Performed By: #### 5 7021-8 #### [facility] CLIA [id number] [address] [place] [address]5824 Hematocrit (Bld) [Volume fraction] 40.1 % Normal 36.0-46.0 [facility] Comment on above: Order Comment: Speci men Type: BLOOD SPECIMEN Ordering Facility: External Submitter Address: , , Performed By: #### 5 7021-8 #### [facility] CLIA [id number] [address] [place] [address] 25818 Hemoglobin (Bld) [Mass/Vol] 13.4 g/dL Normal 11.5-15.5 [facility] Comment on above: Order Comment: Speci men Type: BLOOD SPECIMEN Ordering Facility: External Submitter Address: , , Performed By: #### 5 7021-8 #### [facility] CLIA [id number] [address] [place] [address]39 Immature granulocytes (Bld) [#/Vol] 10*3/uL Normal <0.10 [facility] Comment on above: Order Comment: Speci men Type: BLOOD SPECIMEN Ordering Facility: External Submitter Address: , , Performed By: #### 5 7021-8 #### [facility] CLIA [id number] [address] [place] [address] 01124 Immature granulocytes/100 WBC (Bld) 0.3 % Normal [facility] Comment on above: Order Comment: Speci men Type: BLOOD SPECIMEN Ordering Facility: External Submitter Address: , , Performed By: #### 5 7021-8 #### [facility] CLIA [id number] [address] [place] [address] 07127 Lymphocytes (Bld) [#/Vol] 1.67 10*3/uL Normal 1.00-4.00 [facility] Comment on above: Order Comment: Speci men Type: BLOOD SPECIMEN Ordering Facility: External Submitter Address: , , Performed By: #### 5 7021-8 #### [facility] CLIA [id number] [address] [place] [address] 25631 Lymphocytes/100 WBC (Bld) 24.9 % Normal [facility] Comment on above: Order Comment: Speci men Type: BLOOD SPECIMEN Ordering Facility: External Submitter Address: , , Performed By: #### 5 7021-8 #### [facility] CLIA [id number] [address] [place] [address] 06176 MCH (RBC) [Entitic mass] 31.1 pg Normal 26.0-34.0 [facility] Comment on above: Order Comment: Speci men Type: BLOOD SPECIMEN Ordering Facility: External Submitter Address: , , Performed By: #### 5 7021-8 #### [facility] CLIA [id number] [address] [place] [address] 08284 MCHC (RBC) [Mass/Vol] 33.4 g/dL Normal 30.5-36.0 [facility] Comment on above: Order Comment: Speci men Type: BLOOD SPECIMEN Ordering Facility: External Submitter Address: , , Performed By: #### 5 7021-8 #### [facility] CLIA [id number] [address] [place] [address] 02611 MCV (RBC) [Entitic vol] 93.0 fL Normal 80.0-100.0 [facility] Comment on above: Order Comment: Speci men Type: BLOOD SPECIMEN Ordering Facility: External Submitter Address: , , Performed By: #### 5 7021-8 #### [facility] CLIA [id number] [address] [place] [address] 19076 Monocytes (Bld) [#/Vol] 0.50 10*3/uL Normal <0.87 [facility] Comment on above: Order Comment: Speci men Type: BLOOD SPECIMEN Ordering Facility: External Submitter Address: , , Performed By: #### 5 7021-8 #### [facility] CLIA [id number] [address] [place] [address] Monocytes/100 WBC (Bld) 7.5 % Normal [facility] Comment on above: Order Comment: Speci men Type: BLOOD SPECIMEN Ordering Facility: External Submitter Address: , , Performed By: #### 5 7021-8 #### [facility] CLIA [id number] [address] [place] [address] 06618 Neutrophils (Bld) [#/Vol] 4.44 10*3/uL Normal 1.45-7.50 [facility] Comment on above: Order Comment: Speci men Type: BLOOD SPECIMEN Ordering Facility: External Submitter Address: , , Performed By: #### 5 7021-8 #### [facility] CLIA [id number] [address] [place] [address] 72159 Neutrophils/100 WBC (Bld) 66.1 % Normal [facility] Comment on above: Order Comment: Speci men Type: BLOOD SPECIMEN Ordering Facility: External Submitter Address: , , Performed By: #### 5 7021-8 #### [facility] CLIA [id number] [address] [place] [address] 22332 Nucleated RBC (Bld) [#/Vol] 10*3/uL Normal <0.01 [facility] Comment on above: Order Comment: Speci men Type: BLOOD SPECIMEN Ordering Facility: External Submitter Address: , , Performed By: #### 5 7021-8 #### [facility] CLIA [id number] [address] [place] [address] 42548 Nucleated RBC/100 WBC (Bld) [Ratio] 0.0 /100 WBC Normal [facility] Comment on above: Order Comment: Speci men Type: BLOOD SPECIMEN Ordering Facility: External Submitter Address: , , Performed By: #### 5 7021-8 #### [facility] CLIA [id number] [address] [place] [address] 02043 Platelet mean volume (Bld) [Entitic vol] 12.1 fL Normal 9.0-12.7 [facility] Comment on above: Order Comment: Speci men Type: BLOOD SPECIMEN Ordering Facility: External Submitter Address: , , Performed By: #### 5 7021-8 #### [facility] CLIA [id number] [address] [place] [address] 29551 Platelets (Bld) [#/Vol] 148 10*3/uL Low 150-400 [facility] Comment on above: Order Comment: Speci men Type: BLOOD SPECIMEN Ordering Facility: External Submitter Address: , , Performed By: #### 5 7021-8 #### [facility] IA [id number] [address] [place] [address] 25992 RBC (Bld) [#/Vol] 4.31 10*6/uL Normal 3.90-5.20 [facility] Comment on above: Order Comment: Speci men Type: BLOOD SPECIMEN Ordering Facility: External Submitter Address: , , Performed By: #### 5 7021-8 #### [facility] IA [id number] [address] [place] [address] 93225 WBC (Bld) [#/Vol] 6.71 10*3/uL Normal 3.70-11.00 [facility] Comment on above: Order Comment: Speci men Type: BLOOD SPECIMEN Ordering Facility: External Submitter Address: , , Performed By: #### 5 7021-8 #### [facility] IA [id number] [address] [place] [address] 05763 HBV surface Ag Ser Qlon 04- HBV surface Ag Ql (S) Negative Normal Negative [facility] Comment on above: Order Comment: Speci men Type: BLOOD SPECIMEN Ordering Facility: External Submitter Address: , , Performed By: #### 5 5454-3 #### [facility] CLIA [id number] [address] [place] [address] OF [place] HCV Ab Ser Qlon 08-08-2023 HCV Ab Ql (S) Negative Normal Negative [facility] Comment on above: Order Comment: Speci vishnu Type: BLOOD SPECIMEN Ordering Facility: External Submitter Address: , , Result Comment: The result suggests no evidence of active infection with Hepatitis C virus. Should recent infection be suspected, repeat testing may be considered 4-6 weeks after this draw. Performed By: #### 1 6128-1 #### [facility] CLIA [id number] [address] [place] [address] [facility] [place] HIV 1+2 Ab IA Qlon HIV 1 and 2 Ab IA.rapid Nom (S/P/Bld) Normal [facility] Comment on above: Order Comment: Speci vishnu Type: BLOOD SPECIMEN Ordering Facility: External Submitter Address: , , Result Comment: Test not indicated. Performed By: #### 5 5454-3 #### [facility] CLIA [id number] [address] [place] [address] OF [place] HIV 1+2 Ab+HIV1 p24 Ag IA Ql Non-Reactive Normal Nonreactive [facility] Comment on above: Order Comment: Speci vishnu Type: BLOOD SPECIMEN Ordering Facility: External Submitter Address: , , Performed By: #### 5 5454-3 #### [facility] CLIA [id number] [address] [place] [address] OF [place] HIV immunoassay testing algorithm interpretation (S/P/Bld) [Interp] Normal [facility] Comment on above: Order Comment: Speci vishnu Type: BLOOD SPECIMEN Ordering Facility: External Submitter Address: , , Result Comment: No e vidence of HIV-1 or HIV-2 infection. Should recent infection be suspected, repeat testing may be considered 2-3 weeks after this draw. [place] Rev. Code 3701.243(E): This information has been [...] diagnoses. Performed By: #### 5 5454-3 #### [facility] CLIA [id number] [address] [place] [address] STATES OF [facility] HbA1c (Bld)on 08-08-2023 Average glucose Estimated from glycated hemoglobin (Bld) [Mass/Vol] 105 mg/dL Normal [facility] Comment on above: Order Comment: Tammy mares Type: BLOOD SPECIMEN Ordering Facility: External Submitter Address: , , Result Comment: eAG: (Estimated average glucose) is a calculated value from HgbA1c and is agricultural sales representative of the average blood glucose level in the last 2-3 month period. Performed By: #### 5 5454-3 #### [facility] CLIA [id number] [address] [place] [address] STATES OF [facility] HbA1c (Bld) [Mass fraction] 5.3 % Normal 4.3-5.6 [facility] Comment on above: Order Comment: Tammy mraes Type: BLOOD SPECIMEN Ordering Facility: External Submitter Address: , , Result Comment: [place] Diabetes Association guidelines indicate that patients with HgbA1c in the range 5.7-6.4% are at increased risk for development of diabetes, and intervention by lifestyle modification may be beneficial. HgbA1c greater or equal to 6.5% is considered diagnostic of diabetes. Performed By: #### 5 5454-3 #### [facility] CLIA [id number] [address] [place] [address] [place] RPR Ser Qlon 08-08-2023 Reagin Ab RPR Ql (S) Non-Reactive Normal Nonreactive [facility] Comment on above: Order Comment: Speci men Type: BLOOD SPECIMEN Ordering Facility: [facility]-TIMING INSPECTOR Karina Address: [address] [place], [place] [address] [place] [address] Result Comment: Rapi d plasma reagin (RPR) test detects non-treponemal antibodies. RPR may be reactive in a variety of infectious and non-infectious conditions. Correlation with clinical picture and with treponemal antibody results is required for final interpretation. Performed By: #### 3 024-7, 3016-3 #### [facility] CLIA [id number] [address] OF [place] RUBELLA IGG ANTIBODYon 08-07 RUBELLA IGG AB, QUAL Positive Normal Positive [facility] Comment on above: Order Comment: Speci men Type: BLOOD SPECIMEN [facility]TIM[facility] INSPECTOR Burna Address: [address] [place] [address] [place] [address] Result Comment: The result suggests recent or past exposure to Rubella virus or history of Rubella vaccination. Positive result may also be seen due to presence of passively-transferred antibodies. Please correlate with patient's history. Performed By: #### 3 024-7, 3016-3 #### [facility] CLIA [id number] [address] STATES [place] TYPE + SCREENon 08-08-2023 ABO A Normal [facility] Comment on above: Order Comment: Speci men Type: BLOOD SPECIMEN Ordering Facility: External Submitter Address: , , Performed By: #### T SCR #### [facility] CLIA [id number] [address] [place] [address] [place] HISTORICAL AB SCR STATUS Negative Normal [facility] Comment on above: Order Comment: Speci men Type: BLOOD SPECIMEN Ordering Facility: External Submitter Address: , , Performed By: #### T SCR #### [facility] CLIA [id number] [address] [place] [address] [place] Rh Nom (Bld) Positive Normal [facility] Comment on above: Order Comment: Speci men Type: BLOOD SPECIMEN Ordering Facility: External Submitter Address: , , Performed By: #### T SCR #### [facility] CLIA [id number] [address] [place] [id number] [facility] OF [place] TYPE AND SCREEN EXPIRATION 08/11/2023 23:59 Normal [facility] Comment on above: Order Comment: Tammy mares Type: BLOOD SPECIMEN Ordering Facility: External Submitter Address: , , Performed By: #### T SCR #### [facility] CLIA [id number] [address] OF [place] B-HCG SerPl-aCncon 4 HCG.beta subunit Qn m[IU]/mL Normal <5.0 [facility] Comment on above: Order Comment: Tammy mares Type: BLOOD SPECIMEN Ordering Facility: External Submitter Address: , , Result Comment: Dianne logan Performed By: #### 5 5454-3 #### [facility] CLIA [id number] [address] OF [place] CNPBritt 05-16-2023 CNPN Telephone (HEMASA) JESSEE ALMODOVAR ([id number]) [address] [facility] Date Time Provider Department 05/16/23 RONI DUMAS During your visit today, we recorded the following information about you: Allergies As of Date: 05/16/2023 (No Known Allergies) Date Reviewed: 04/11/2023 Reviewed by: Macy Jones APRN.ELECTROTYPER HELPER - Fully Assessed Reason for Visit: Lab Orders [1688] Primary Visit Diagnosis:Possible , not confirmed [Z32.00] Order(s):HCG QUANTITATIVE [SQHCGQT] Order #: [id number] FUTURE Prescriptions as of 05/16/2023 - doxycycline [...] RONI DUMAS on 05/16/23 Normal [facility] TOX SCREEN ROUT URon 024 Amphetamines Confirm (U) [Mass/Vol] Negative Normal Negative [facility] Comment on above: Order Comment: Speci men Type: BLOOD SPECIMEN Ordering Facility: [facility]-TIMING INSPECTOR Burna Address: [facility] [address] [place] [address] Result Comment: Cuto ff threshold at 1000 ng/mL. Performed By: #### 3 024-7, 3016-3 #### [facility] CLIA [id number] [address] [place] [address] [place] BARBITURATES, URINE Negative Normal Negative [facility] Comment on above: Order Comment: Speci men Type: BLOOD SPECIMEN Ordering Facility: [facility]-TIMING INSPECTOR Burna Address: [facility] [address] [place] [address] Result Comment: Cuto ff threshold at 200 ng/mL. Performed By: #### 3 024-7, 3016-3 #### [facility] CLIA [id number] [address] [place] [address] [place] BENZODIAZEPINES, UR Negative Normal Negative [facility] Comment on above: Order Comment: Speci men Type: BLOOD SPECIMEN Ordering Facility: [facility] Address: [facility] [address] [place] [address] Result Comment: Cuto ff threshold at 200 ng/mL. Performed By: #### 3 024-7, 3016-3 #### [facility] CLIA [id number] [address] [place], [place] [address] [place] Cannabinoids Screen Ql (U) Negative Normal Negative [facility] Comment on above: Order Comment: Speci men Type: BLOOD SPECIMEN Ordering Facility: [facility] Address: [facility] [address] [place] [address] Result Comment: Cuto ff threshold at 50 ng/mL. Performed By: #### 3 024-7, 3016-3 #### [facility] CLIA [id number] [address] [place] [address] [place] Cocaine Ql (U) Negative Normal Negative [facility] Comment on above: Order Comment: Speci men Type: BLOOD SPECIMEN Ordering Facility: [facility] OB-TIMING INSPECTOR Burna Address: [facility] [address] [place] [address] Result Comment: Cuto ff threshold at 300 ng/mL. Performed By: #### 3 024-7, 3015-3 #### [facility] CLIA [id number] [address] [place] [address] [place] Ethanol (U) [Mass/Vol] <11 Normal <11 [facility] Comment on above: Order Comment: Speci men Type: BLOOD SPECIMEN Ordering Facility: [facility] Address: [facility] [address] [place] [address] Performed By: #### 3 024-7, 3015-3 #### [facility] CLIA [id number] [address] [place] [address] [place] Opiates Screen Ql (U) Negative Normal Negative [facility] Comment on above: Order Comment: Speci men Type: BLOOD SPECIMEN Ordering Facility: [facility] Address: [facility] [address] [place] [address] Result Comment: Cuto ff threshold at 300 ng/mL. Performed By: #### 3 024-7, 3015-3 #### [facility] CLIA [id number] [address] [address] [place] oxyCODONE cutoff Screen (U) [Mass/Vol] Negative Normal Negative [facility] Comment on above: Order Comment: Speci men Type: BLOOD SPECIMEN Ordering Facility: [facility] Address: [facility] [address] [place] [address] Result Comment: Cuto ff threshold at 100 ng/mL. Performed By: #### 3 024-7, 3015-3 #### [facility] CLIA [id number] [address] [place] [address] [place] Phencyclidine Ql (U) Negative Normal Negative [facility] Comment on above: Order Comment: Speci men Type: BLOOD SPECIMEN Ordering Facility: [facility] OB-TIMING INSPECTOR Karina Address: [address] [place] [address] , [place] [address] Result Comment: Cuto ff threshold at 25 ng/mL. Performed By: #### 3 024-7, 3016-3 #### [facility] CLIA [id number] [address] [place] [address] [place] B-HCG SerPl-aCncon 4 HCG.beta subunit Qn m[IU]/mL Normal <5.0 [facility] Comment on above: Order Comment: Speci men Type: BLOOD SPECIMEN Ordering Facility: External Submitter Address: , , Result Comment: Dianne logan Performed By: #### 5 5454-3 #### [facility] CLIA [id number] [facility] [place] [address] [place] CNOVon 02-25-2023 CNOV Office Visit (ORTHMN ) JESSEE ALMODOVAR ([id number]) 1990 [facility] Date Time Provider Department 02/25/23 [...] (more content not included)... Normal [facility] XR HIP 3V PELV+ AP/LAT RTon 02-20-2023 [...] any questions regarding this interpretation, please call [phone]. If you are unable to reach us at the number above, please feel free to contact [facility] at [phone]. [id number] Normal [facility] XR Pelvis and Hip - right AP [...] any questions regarding this interpretation, please call [phone]. If you are unable to reach us at the number above, please feel free to contact [facility] at [phone]. DIVISION OF RADIOLOGY * * *Final Report* [...] hip are unremarkable. DIVISION OF RADIOLOGY Provider, [facility] - 02/20/2023 * * *Final Report* * [...] any questions regarding this interpretation, please call [phone]. If you are unable to reach us at the number above, please feel free to contact [facility] at [phone]. 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] Order(s):XR HIP GENERAL 3V PELV/AP/LAT RIGHT [[id number]] Order #: [id number] FUTURE Prescriptions as of 02/17/2023 - amphetamine-dextroamphe [...] TIANA CRONIN on 02/17/23 Normal [facility] CBC W Auto Differential pane l (Bld)on 11-15-2022 Basophils (Bld) [#/Vol] 0.04 10*3/uL <0.11 k/uL [facility] Basophils/100 WBC (Bld) 0.8 % [facility] Differential cell count method Nom (Bld) Auto [facility] Eosinophils (Bld) [#/Vol] 0.11 10*3/uL <0.46 k/uL [facility] Eosinophils/100 WBC (Bld) 2.1 % [facility] Erythrocyte distribution width (RBC) [Ratio] 13.7 % 11.5 - 15.0 % [facility] Hematocrit (Bld) [Volume fraction] 46.7 % High 36.0 - 46.0 % [facility] Hemoglobin (Bld) [Mass/Vol] 15.6 g/dL High 11.5 - 15.5 g/dL [facility] Immature granulocytes (Bld) [#/Vol] <0.10 k/uL [facility] Immature granulocytes/100 WBC (Bld) 0.2 % [facility] Lymphocytes (Bld) [#/Vol] 1.77 10*3/uL 1.00 - 4.00 k/uL [facility] Lymphocytes/100 WBC (Bld) 33.7 % [facility] MCH (RBC) [Entitic mass] 31.8 pg 26.0 - 34.0 pg [facility] MCHC (RBC) [Mass/Vol] 33.4 g/dL 30.5 - 36.0 g/dL [facility] MCV (RBC) [Entitic vol] 95.3 fL 80.0 - 100.0 fL [facility] Monocytes (Bld) [#/Vol] 0.64 10*3/uL <0.87 k/uL [facility] Monocytes/100 WBC (Bld) 12.2 % [facility] Neutrophils (Bld) [#/Vol] 2.68 10*3/uL 1.45 - 7.50 k/uL [facility] Neutrophils/100 WBC (Bld) 51.0 % [facility] Nucleated RBC (Bld) [#/Vol] <0.01 k/uL [facility] Nucleated RBC/100 WBC (Bld) [Ratio] 0.0 /100 WBC [facility] Platelet mean volume (Bld) [Entitic vol] 11.3 fL 9.0 - 12.7 fL [facility] Platelets (Bld) [#/Vol] 154 10*3/uL 150 - 400 k/uL [facility] RBC (Bld) [#/Vol] 4.90 10*6/uL 3.90 - 5.2 0 m/uL [facility] WBC (Bld) [#/Vol] 5.25 10*3/uL 3.70 - 11. 00 k/uL [facility] CBC W Auto Differential pane l (Bld)on 08-09-2022 Basophils (Bld) [#/Vol] 0.03 10*3/uL <0.11 k/uL [facility] Basophils/100 WBC (Bld) 0.6 % [facility] Differential cell count method Nom (Bld) Auto [facility] Eosinophils (Bld) [#/Vol] 0.05 10*3/uL <0.46 k/uL [facility] Eosinophils/100 WBC (Bld) 0.9 % [facility] Erythrocyte distribution width (RBC) [Ratio] 13.6 % 11.5 - 15.0 % [facility] Hematocrit (Bld) [Volume fraction] 42.0 % 36.0 - 46.0 % [facility] Hemoglobin (Bld) [Mass/Vol] 13.5 g/dL 11.5 - 15.5 g/dL [facility] Immature granulocytes (Bld) [#/Vol] <0.10 k/uL [facility] Immature granulocytes/100 WBC (Bld) 0.4 % [facility] Lymphocytes (Bld) [#/Vol] 1.57 10*3/uL 1.00 - 4.00 k/uL [facility] Lymphocytes/100 WBC (Bld) 29.0 % [facility] MCH (RBC) [Entitic mass] 30.5 pg 26.0 - 34.0 pg [facility] MCHC (RBC) [Mass/Vol] 32.1 g/dL 30.5 - 36.0 g/dL [facility] MCV (RBC) [Entitic vol] 94.8 fL 80.0 - 100.0 fL [facility] Monocytes (Bld) [#/Vol] 0.47 10*3/uL <0.87 k/uL [facility] Monocytes/100 WBC (Bld) 8.7 % [facility] Neutrophils (Bld) [#/Vol] 3.27 10*3/uL 1.45 - 7.50 k/uL [facility] Neutrophils/100 WBC (Bld) 60.4 % [facility] Nucleated RBC (Bld) [#/Vol] <0.01 k/uL [facility] Nucleated RBC/100 WBC (Bld) [Ratio] 0.0 /100 WBC [facility] Platelet mean volume (Bld) [Entitic vol] 11.1 fL 9.0 - 12.7 fL [facility] Platelets (Bld) [#/Vol] 145 10*3/uL Low 150 - 400 k/uL [facility] RBC (Bld) [#/Vol] 4.43 10*6/uL 3.90 - 5.2 0 m/uL [facility] WBC (Bld) [#/Vol] 5.41 10*3/uL 3.70 - 11. 00 k/uL [facility] XR Pelvis and Hip - right AP [...] any questions regarding this interpretation, please call [phone]. If you are unable to reach us at the number above, please feel free to contact [facility] eRadiology at [phone]. DIVISION OF RADIOLOGY * * *Final Report* [...] interval. DIVISION OF RADIOLOGY Provider, Tom amaro Florala - 08/01/2022 * * *Final Report* * [...] any questions regarding this interpretation, please call [phone]. If you are unable to reach us at the number above, please feel free to contact [facility] at [phone]. [facility] Radiology Study observation (narrative) [facility] XR Pelvis and Hip - right AP and Lateral frogOrdered By: Ccf Provider on 08-01-2022 [facility] Ambulatory Visit Summaryon 0 05-26-2022 Ambulatory Visit [...] Up with CHELSEA KRAUS DO When: Where: [facility] [address] [place] [phone]- Medications What How Much When Why Instructions New amoxicillin (amoxicillin 500 mg Cap) 1 Capsules By Mouth Every 12 hours Strep pharyngitis Duration: 10 Days Pickup at [facility] 1984 Unchanged biotin Contact prescribing physician [...] physician if questions or concerns Pharmacy Information [facility] 1985: [address] [place], [place] [phone] Allergies No Known Allergies Problems Ongoing - [...] these instructions at home: Medicines ? Take yrsr-mcq-vcpkoty and prescription medicines only as told by [...] cup (more content not included)... 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 No bgpt-jzp-bjqagyg medications today. Review of Systems PHQ Score [...] day(s), # 20 cap(s), Refills(s) 0, Pharmacy: [facility] 1985, 172, cm, 05/26/22 9:34:00 EST, [...] Acute pharyngitis, unspecified) Ordered: Rapid Strep POC 88871 Follow-up With When Contact Information CHELSEA KRAUS DO [facility] [address] [place] [phone]- Additional Instructions: Patient Education Strep Throat, Adult, Uhbx-te-Fyhs BMI for Adults Problem List/Past Medical History [...] Strep POC Result: Positive (05/26/22 09:56:00) Normal [facility] Comment on above: Result Comment: Elec tronically [...] these instructions at home: Medicines ? Take hdxd-owk-imegijb and prescription medicines only as told by [...] 09/23/2008 Document Revised: 06/25/2019 Document Reviewed: 06/25/2019 [employer] Patient Education ? 2019 [employer]. Nutrition BMI for Adults Body mass index (BMI) is a number that is calculated from a person's weight and height. BMI may help to estimate how much of a person's weight is composed of fat. BMI can help identify those who may be (more content not included)... Normal [facility] Coding Summary.on 02-26-2022 Coding Summary. [id number] Gh0 bWw+PGhlYWQ+OJ8ZREGmI89 bkVOggV9HR6oVSS5AAOTFNJ ZTLS3FOE9fnEW6EVgdY1Xwr iAv EekysAEoTR96MRt0BRR9mOx yMKcyrM0ubHJzY9h6AnQoQN 20cB22RFdjIQClRfP5IpJhv jsgbWFy A4leFtKfwYUzUor+PHRhYmx lIHdpZHRoPScxMDAlJyBzdH urYP1eTa4cBDRvWBRcrPncd HNlOiBj y9gqXDPwWUzyIL8lqNovG6H cnTJ9SXFwx4h6Hj22sVA+PH BcUPZ4dJhjDFpij945OkYeh 6vvXHA7 cCNqNJtuDGU7W61in1L0LKS tDVZhOQP9lYH8nY1rlZdbon sfW4QacVBtUnU9OQU8sXEbi R0rfSnj nwrrlA1sUgb+D82VEO3YTLW YJD1QKdw4N3ZoOkwhpFQ+PC 26XXHhCB87nTGgmDFsp4otx Gi5KeTd PDIwALD9cRnnXPuug0ZlLEA eV82lcLLir1Y8QYMsbLehgB FbJiOedLJ8nK5vDGxdivsaf 2hvdzsn Qnsob1rubf33vT17E71aJHp jJIRwKCW7TTMhEYBnrVjkiy 1ihR9yFc7+VUosk2ypg6fes Ba2VpHf DFBsfpKqpBmvNIW6q6UbBm2 6W4YrnAegq3OtHjd4gg88cS Gzs8O1jZF7XFvqTOVioX4lD WxlZnQ6 VMWlOuTtdE55xHKjMGjfYw0 zqUrclReeZJ4vLRKfgwcbVJ ZruJ7cQJQitXIkbEhzLF0sW TBpbjtm s638TcKuWWI1OYDmfGBbM5Q tqK9jSmVmBNArFTVrI6EdkA IfLDhzT919UDtsGdJ2ENEqy fVfF4Zg EWGenVuoIcJ2g2T6Zy6Ol8X cisgpIAK2YYcnJXTzNmI0Vm NkJkJ9G5SmIiw1KSKceCwqX U2lZ5Ok JJUeseovvczdgXG9DUVdZFP rsB08gRQjGQpaKf6ys1L8h3 22TRRlRKGreM60Kl5spTbeL TBwdCBU zN2ujviwd5ehbjdsCbZpOTM qOXx9RTy1AQFpkIqfUmZtAA O4JpF0TUU3yWJszP8vdMudn bayhI5a Oyc+G07ldO8mOYH4QJU8xkf mWBRathKnKF37LB50R9McLw wvdGFibGU+PGRpdiBzdHlsZ M1nAxJw u2dqy6VyCDcfT6BbMZVeQVz oAng9GGQtEKL3iKA8bB1cIU PjBAaac8V8lCS7R8XwulVlo z5oo0bn OQLbMVzqF32kiYVpf9E6BIA luVC4ZLCojBukBhQtvM31Rs c+SGUnhStat1WcFpvth0xja 4zpkBe7 SkMgYYXgbpZkvBgyFNJ6v9N wVe73B64bCSalTINtVSZwRF GkOFNbmZtmqm0ynC7fBp6+P GNvbCB3 jFA4nX4vBQQgWzW8OVvwC17 2BdWasLUfRbpvz2ejw9erlK x4WgStEVUwqdMftEadOCE9u 0BdIg73 F08bGNpmFPWuCGSqBRYcKSX zfLhoyb8toT4uIg0+PC9jb2 dfkg44xY24rMD+UEMwOWF2s WxlPSdw HZJmwC0uPJylSaM0GUOfOqW soM58rTPgPSevBp2mlXdjhB vuLJ7bRNOnlnpwt116VwUtv 2xkIDEw vNEaCWemTBA3W56ru2C7NZG mUNCzMRC9mUZ5sD4jnOcwon ogbGVmdDsgdmVydGljYWwtY WgsA068 IHRvcDsnPlBhdGllbnQgTmF oJLh2R9BuGpy1LNYnjUmeNA 6oqAYkHDqwEi7orHhzcFyuS C4kDRVj nliiq353DzJlr8znTZVxrWD eWWmcOCM6K64ze1J0ECOyTK FnRFQ2gRQ4iO2oiTrllpptt GVmdDsg apZwwAakUTnkDDhbY762RBQ cdRpqYrWtpsDoYRMegXS6KA 72FZ94aLFlw6Q8tFB2Z6KwJ GRpbmct znocjQS8LBWcGQTdcN93Zw6 tiYyuQd9qHIGvDHF9ERFtsD NgB4TmiY1uBzMoLNLnWTZbT 3RleHQt ODoyJ901AEnkXrH2WCHgkiW lB1TkIMIirBzjMsO3s8Q0Kh 9PI7Q6KZ88NR36sAQtn1N0k WJ9T6Hm JFIkmwglcxcvgKE8JMPdFZU fgN30Zv8cvMuyDt7vEHIkZE B2NAGkgUTnA6RawG3bJpVqR DAwMDAw C7VdeYFgBDngC153LXduYmZ 0HGCaygGpX5TdHFYkbCwuGh Z3b9X0Ui9MJVe2HC78JN75c WIks1U3 gFT3O8IzOXEzsvybgbzowBC 2SEXiVSQkfR71Eb9oiYpoKy 3dLRScAAY8ZXLudFWuF0Gjf V8gTlDf SBCeJUKhI3VarGEuHIieE96 3VSwxCuL1CRKhtmZbX6BrBE RwwCfpWpG4n8V2Mi3SZAKkO J08UGH3 yKB7RX65WU45B5LqRmidhEH ibGU+PHRhYmxlIHdpZHRoPS okMUIkWsWacLjiYE9pHv8kC GVyLWNv eKdkgKPtJhZxh8daRAXhIOf fVJ0bfJrjB3YzgLR1DANkl3 f4Se04Y84cO6OpaSE+PGNvb PV2ySF0 oK8nUnPqQgV8HTyfC922HlI vsJDoPinfg1qtr3uikBo8Zx X8RSDbxcUtpRsiQMQ0z4YtD d44A84c IHdpZHRoPSIxNSUiIHZhbGl jkk0czY1nYm7+NWDcvIM6fQ X6aJ2vUtPwHeF6JGbsA550V nRvcCIv Plbhh2kia0uiyBe8DwVmDYF qngBdaSrkAHV7m9IwHr75W0 JugHmkd4GuDcz1yx30bAAbg 8Y6lTE2 B2IfXMLrydwowUEdbXtpPU6 sAEZikfgxPOEvgW6qVUTnP7 q2MmPlLuL8KZpyR2CfenO7P DEwcHQg MSaxUQX3S68ku8J9UQTbKTX cPPZ6hBS0oU4vmHqhriaqgM VmdDsgdmVydGljYWwtYWxpZ 246IHRv wMfhLRPrcE6wEDEwiPBlcYf iZX1mVNDtrubpBkmVKLlKKH dWXmboNMHIUK78I2SoMfv9F CBzdHls WO0hvOLqNDagDi4njPpniPu kCY2vJDWzndwpUDZoiX0dPD HzeADzuLbuWI0iYYCpbksfu 250OiAx DQE2QGAuwUOjV9OtvF9pIcM nZDDxYTKiC8ZmpNFwRZrpY5 94GLauVvZ3MOGxeoQcB6WpH WFsaWdu SmZ8f6I4Na8hER3iNX3uSMe hOL12DQ98nBAau2T8iRL1Y5 LjFSIxifnugtmogFU1EHFhP DUwaW47 bFZrVRfuPe8ne8X4h650BTC vWWWhcG12Pf1giIaiEGJurI YBeH8ogjkbn9ucwayrZnOaD DAwMDt0 VXi4UUEfqEeyYtFjDQW0IlC 2ELJ3aADqkG2xcVagdumviT 9wOyc+DfIyXQQdkrE9G1CwS ll8CHOx dWyaKW9cnRLaGUucZx6yyJg paQfxGS8kSDUerfvxCEAtjR 0oUWXddRIlxLduSN1gXOSlm zzhb729 VzZiXHW1ILDvbIEjD4FqtU7 yLpBgDQQeIAToJ5KcbRGaVU epJ261PNbbPbV7LZOhwrZaY 2FsLWFs rTymGrV6x0W4Ty4VSA8xcIE 0W4CjEhg8OYPlcLrqDV0enK MgFRqlAx2zmBizqIuvOW6bW TBpbjtw AEWyvC9bOWXvhKUxiSeqWC7 qPMRfcshuc834OiIeZKN1EG EwtQTtV0ZaiC5rSyJjOQUlM HRuZ1We hNQvOCouM916SGscSlU1LEF wdzOwY6FhYHBytXggIkI0w1 W4Ry3NzIKnV0WcL4l5F8YvZ jwvdHI+ YO91NWLfRM08pMKtdAFnk4o jlTh7XkQxPAExVVN6qXmcSL xxl3SwTNDyF96fpZOzv5H2A GNvbGxh jDIaZlPeoEY0kM3fVUumfxz ui1gfmcfsLbydp8khog56xQ 43Y44uOWtyRNOiOMUnWOSkW HZhbGln oc4mmR8gNz8+BXWysAU4iID 5gW3sWnBqQbD8LSmhO873Co JlkNNmOmhli2exq4stsHk4V jIwJSIg wgWqdIkpDQS7e2WyPc84U74 sIHdpZHRoPSIyMCUiIHZhbG xixv9qmC1gPf8+JR9rq2qrj i09hL82 dHI+DTIoVLP2jVomQJsqCAJ mtA8kEFhoYiB2TGDnWkGbcH 00eNYhCJhnLv8veBfbyUgmH J8eNECf qyuel744DmJkb0afFDWmoOA hAHrwVVK9K73mi1U3AKFpPL UtHWN3oXO0zZ7muRgteppvb GVmdDsg smIdrSjyUWgcRLicD114EBE hlFetQvNemIEwT8fsyaEWED 1lOjwvdGQ+FGUhXFI3eZmhE SdwYWRk kS8mOHWcN7q3DxXaJxR4SLk xC4CnygW4XHThcFKaGDIznC FDpZ2gyroqg3dpgnyvLjUyD DAwMDt0 TYz1VITqrPsdJqGhKUX9PiO 1TMX5xKClaC9ocVfipufvvA 9wOyc+RklOOjwvdGQ+PHRkI TD5tLeq BKpsQJXnkY9hJKQzE5x1MrC eFsL9CLskF2ErqwR0OJTbkW MgEYRedCMGlY4gfpoqt6wgk jogIzAw ZUKwXSx1HCe1KVRjhWgwMlS qNER5OfV1YJQ2rIIwqB0wsK lhnjotcL0mQlo+TVJOOjwvd GQ+PHRk KWC1dVoxQSwhQWKauK3uPYJ yL2n2SxKeTbD7VTqxK7Ouyi Y9GHIzcGQvASQnbESPwA4zc yiwu7vr jfgkAxEaAGYgYBb7LXs8ULZ jzCrmRqXlVWL8PaW1UFS2gM KqlR8woRdhrcvhtF4kAts+U SS4FPO7 HV30UF50R4TjBcisoFCdaBW +PHRhYmxlIHdpZHRoPScxMD CmTmUnfWevFC0vSb4xSJLkL WNvbGxh cHNl (more content not included)... Normal [facility] Discharge Instructionson Discharge Instructions [id number] CD:127 Normal [facility] ED Clinical Summaryon 2021 ED Clinical Summary (Inserted Image. Kelsi ble to display) [place] [id number] ED Clinical Summary Person Information Name[facility] Age[facility] 32 Years : 1990 Sex: Female Language: Botswanan PCP: Marital Status: Phone: [phone] Visit Id: Visit Reason: Foot pain-swelling; HURT [...] 02/23/2022 11:07:01 02/23/2022 11:07:01 ADDRESS: [address] [facility] [id number] PHYS DOC NOTES: MEDICAL INFORMATION: Prescriptions Given: PATIENT EDUCATION INFORMATION: Instructions: Foot Sprain; How to Use Cold Therapy, Jaol-co-Yvub; Elastic Bandage and RICE Therapy Follow up: With: Address: When: CHELSEA KRAUS [facility], [address] [place] [phone] [facility] In 3 days 02/26/2022 Comments: Follow-up with your primary care provider in 3 to 5 days. If symptoms worsen, do not improve, or new symptoms arise please report back to emergency department for further evaluation. DIAGNOSIS: Sprain of left foot Normal [facility] ED Note-Physicianon 02-24-20 ED Note-Physician Basic Information [...] In 3 days 02/26/2022 [facility] [address] [place], [place] [id number] [facility] (1) Additional Instructions: Follow-up with your primary care provider in 3 to 5 days. If symptoms worsen, do not improve, or new symptoms arise please report back to emergency department for further evaluation. Patient Education Foot Sprain How to Use Cold Therapy, Aqtc-yx-Uwfm Elastic Bandage and RICE Therapy Attestation Patient seen and evaluated by the physician observation assistant. Attending physician was present in the emergency department and supervised care. This visit was performed by both the physician and an APC. I performed all aspects of the MDM as documented. This report was transcribed using voice recognition software. Every effort was made to ensure accuracy, however, inadvertently computerized soakers supervisor mistakes may be present. Appropriate healthcare PPE [...] medications Ho (more content not included)... Normal [facility] Comment on above: Result Comment: Elec tronically [...] This may take several hours. ? Take mvjd-mrp-yoetzwl and prescription medicines only as told by [...] is no (more content not included)... Normal [facility] ED Patient Summaryon 022 ED Patient Summary (Inserted Image. Kelsi ble to display) [address] [address] Patient Discharge Instructions Person Information Name: JESSEE ALMODOVAR Age: 32 Years Arrival Date: 02/23/2022 09:05:13 Discharge Diagnosis: Sprain of left foot Primary Care Physician: Provider Information Primary Provider: Chayo Anne DO Advanced Retirement Manager:None The exam and treatment you received in the Emergency Department were for an urgent problem and are not intended as complete care. It is important that you follow up with a doctor, nurse practitioner, or physician?s observation assistant for ongoing care. If your symptoms [...] Follow-up Instructions: With: Address: When: CHELSEA KRAUS [facility], [address] [place] [id number] [employer] (1) In 3 days 02/26/2022 [...] Foot Sprain; How to Use Cold Therapy, Vizb-ff-Mgmg; Elastic Bandage and RICE Therapy A MESSAGE TO ALL PATIENTS REGARDING OPIOIDS PRESCRIPTION OPIOIDS: WHAT YOU NEED TO KNOW Prescription opioids can be used to help relieve sbcvarkv-ym-sgnhqw pain and are often prescribed following a [...] Visit www.cdc.gov/ (more content not included)... Normal [facility] XR Foot 3+ Views Lefton -0 XR [...] DO Transcribed by: SUZY Technologist: TIM Normal [facility] XR Pelvis and Hip - right AP [...] any questions regarding this interpretation, please call [phone]. If you are unable to reach us at the number above, please feel free to contact [facility] at [phone]. DIVISION OF RADIOLOGY * * *Final Report* [...] joint appears preserved. DIVISION OF RADIOLOGY Provider, [facility] - 02/19/2022 * * *Final Report* * [...] any questions regarding this interpretation, please call [phone]. If you are unable to reach us at the number above, please feel free to contact [facility]iology at [phone]. [facility] XR Pelvis and Hip - right AP and Lateral frogOrdered By: Ccf Provider on 02-19-2022 [facility] XR Pelvis and Hip - right AP and Lateral frogon 02-18-2022 Radiology Study observation (narrative) [facility] CT ABD/PELV W CONon 02-12-20 CT ABD/PELV [...] by: EMELIA STEWART Date: 2022-02-11 07:23 Normal [facility] US PELVIS AND TRANSVAGon US PELVIS [...] by: JENNIFER HARTLEY Date: 2022-01-08 14:12 Normal [facility] UA DIP, URINE (POC)on 2021 BILIRUBIN UA (POCT) Negative Negative [facility] CLARITY UA (POCT) Cloudy [facility] COLOR UA (POCT) Yellow [facility] GLUCOSE UA (POCT) Negative Negative mg/dL [facility] HEMOGLOBIN/BLOOD UA (POCT) Trace-intact Abnormal Negative [facility] KETONE UA (POCT) Negative Negative mg/dL [facility] LEUKOCYTES UA (POCT) Small Abnormal Negative [facility] NITRITE UA (POCT) Negative Negative [facility] PH UA (POCT) 6.5 4.5 - 8.0 [facility] Protein Ql (U) Negative Negative mg/dL [facility] SPECIFIC GRAVITY UA (POCT) 1.015 1.005 - 1.030 [facility] UROBILINOGEN UA (POCT) 0.2 E.U./dL Normal E.U./dL [facility] Large Joint Arthro/Inj: R gr eater trochanteric bursa [facility] Vital Signs Date Time Vital Sign Value Performing Clinician Facility 02-25-2023 13:16-0500 Body height 185.4 cm Rosas Mckinney MD Work Phone: [facility] 02-25-2023 13:16050 Body weight 76.67 kg Rosas Mckinney MD Work Phone: [facility] 07-10-2022 15:15-0400 Body height 181.61 cm Imad Asaad Other [employer] Other 07-10-2022 15:15-0400 Body mass index (BMI) [Ratio] 24.48 kg/m2 Imad Asaad Other [employer] Other 07-10-2022 15:15-0400 Body weight 80.74 kg Imad Asaad Other [employer] Other 07-10-2022 15:15-0400 Diastolic blood pressure 78 mm[Hg] Imad Asaad Other [employer] Other 07-10-2022 15:15-0400 Systolic blood pressure 130 mm[Hg] Imad Asaad Other [employer] Other 05-26-2022 09:29-0500 Blood Pressure Location Roxanne MOSLEY [facility] 05-26-2022 09:29-0500 Body temperature 98.42 [degF] Roxanne MOSLEY [facility] 05-26-2022 09:29-0500 Diastolic blood pressure 78 mm[Hg] Roxanne MOSLEY [facility] 05-26-2022 09:29-0500 Heart rate 115 /min Roxanne MOSLEY [facility] 05-26-2022 09:29-0500 SaO2% (BldA) [Mass fraction] 98 % Roxanne MOSLEY [facility] 05-26-2022 09:29-0500 Systolic blood pressure 120 mm[Hg] Roxanne MOSLEY [facility] 02-23-2022 09:10-0400 Body temperature 98.42 [degF] Chayo Anne [facility] 02-23-2022 09:10-0400 Diastolic blood pressure 67 mm[Hg] Chayo Anne [facility] 02-23-2022 09:10-0400 Heart rate 88 /min Chayo Anne [facility] 02-23-2022 09:10-0400 Respiratory rate 18 /min Chayo Anne [facility] 02-23-2022 09:10-0400 SaO2% (BldA) [Mass fraction] 98 % Chayo Anne [facility] 02-23-2022 09:10-0400 Systolic blood pressure 141 mm[Hg] Chayo Anne [facility] Encounters Encounter Date Encounter Type Care Provider Facility Start: 01-19-2024 End: 01-19-2024 ambulatory ANUPAMA BROWN Facility:[facility] Start: 01-13-2024 End: 01-13-2024 ambulatory GUILLAUME VASQUEZ Not Available Start: 01-05-2024 End: 01-05-2024 ambulatory ANUPAMA BROWN Facility:[facility] Start: 12-30-2023 End: 12-30-2023 ambulatory GUILLAUME PEDRO Not Available Start: 12-16-2023 End: 12-16-2023 ambulatory GUILLAUME PEDRO Not Available Start: 12-08-2023 End: 12-08-2023 ambulatory GUILLAUME R PEDRO Facility:[facility] Start: 11-20-2023 End: 11-20-2023 ambulatory ANUPAMA BROWN Facility:[facility] Start: 11-18-2023 End: 11-18-2023 ambulatory ELISEO KIN Not Available Start: 10-22-2023 End: 10-22-2023 ambulatory GUILLAUME R PEDRO Facility:[facility] Start: 10-21-2023 End: 10-21-2023 ambulatory GUILLAUME PEDRO Not Available Start: 10-16-2023 End: 10-16-2023 ambulatory [facility] Start: 09-24-2023 End: 09-24-2023 ambulatory ELISEO KIN Not Available Start: 08-26-2023 End: 08-26-2023 ambulatory GUILLAUME PEDRO Not Available Start: 08-08-2023 End: 08-08-2023 ambulatory GUILLAUME R PEDRO Facility:[facility] Start: 07-24-2023 End: 07-24-2023 ambulatory GUILLAUME PEDRO Not Available Start: 06-04-2023 End: 06-04-2023 ambulatory ASIF GRIFFIN [facility] Start: 06-02-2023 End: 06-02-2023 Phys/qhp telephone evaluation 5-10 min Guillaume Pedro DO Work Phone: [facility] Comment on above: Irregular menses (Pr imary Dx) Start: 06-02-2023 End: 06-02-2023 ambulatory GUILLAUME PEDRO Not Available Start: 05-28-2023 Chart abstracting Guillaume Pedro DO Work Phone: [facility] Start: 05-16-2023 End: 05-16-2023 ambulatory ANUPAMA BROWN Facility:[facility] Start: 05-05-2023 End: 05-05-2023 ambulatory ASIF SCHAEFER Facility:[facility] Start: 05-02-2023 End: 05-02-2023 [facility] Start: 05-02-2023 End: 05-02-2023 Office outpatient visit 25 minutes Asif Schaefer CERTIFIED BREASTFEEDING EDUCATOR-ELECTROTYPER HELPER Work Phone: [facility] Comment on above: Attention deficit hy peractivity disorder (ADHD), predominantly inattentive type (Primary Dx); Moderate episode of recurrent major depressive disorder (CMS-HCC); Generalized anxiety disorder Start: 03-04-2023 End: 03-04-2023 ambulatory GUILLAUME VASQUEZ Not Available Start: 02-25-2023 End: 02-25-2023 ambulatory ANUPAMA DANIELLE BROWN Facility:[facility] Start: 02-25-2023 End: 02-25-2023 Office outpatient visit 25 minutes Rosas Mckinney MD Work Phone: Orthopaedics Comment on above: Lytic bone lesion of femur (Primary Dx); Greater trochanteric bursitis of right hip; Chronic pain of right hip; Chronic low back pain, unspecified back pain laterality, unspecified whether sciatica present; Pain of right hip; Bone lesion Start: 02-20-2023 End: 02-20-2023 ambulatory ANUPAMA BROWN Facility:[facility] Start: 02-20-2023 End: 02-20-2023 Subsequent hospital visit [...] 07-10-2022 End: 07-10-2022 ambulatory Imad Asaad Other [facility] [employer] Other Start: 07-10-2022 Office outpatient ne w 45 minutes Imad Asaad [facility] Start: 05-26-2022 End: 05-27-2022 ambulatory Roxanne MOSLEY Facility:[facility] Start: 05-26-2022 End: 05-26-2022 Patient encounter procedure Roxanne MOSLEY [facility] Start: 05-08-2022 End: 05-08-2022 ambulatory PRAVIN SANDERSON Facility: Start: 02-26-2022 End: 02-26-2022 Patient encounter procedure Rosas Mckinney MD Work Phone: Orthopaedics Comment on above: Lytic bone lesion of femur (Primary Dx) Start: 02-23-2022 End: 02-23-2022 Emergency department patient visit Chayo Anne Facility:[facility] [place] Start: 02-23-2022 End: 02-23-2022 Emergency department patient visit Chayo Anne [facility] Start: 02-18-2022 End: 02-18-2022 Subsequent hospital [...] Dx) Start: 10-04-2021 Orders Only Macy Jones APRN.ELECTROTYPER HELPER Work Phone: Hematology/Oncology Comment on above: Acute bilateral low back pain with bilateral sciatica (Primary Dx) Procedures Date Procedure Procedure Detail Performing Clinician Start: 08-08-2023 Antibody screen GUILLAUME MURILLO Comment on above: Order Comment: Speci men Type: BLOOD SPECIMEN Ordering Facility: External Submitter Address: , , Performed By: #### T SCR #### CC MAIN BLOOD BANK [facility] [id number] [address] [place] [address] [place] Start: 02-25-2023 Arthrocentesis aspir &/inj major jt/bursa w/o us Tiana Cronin PA-C Work Phone: Start: 02-20-2023 Radex hip unilateral with pelvis 2-3 views Roni Dumas MD Work Phone: Start: 08-08-2022 Adult depression scr eening assessment Asif Schaefer CERTIFIED BREASTFEEDING EDUCATOR-ELECTROTYPER HELPER Work Phone: Start: 08-01-2022 Radex hip unilateral [...] Td Vaccines (4 - Td or Tdap) [facility] Start: 01-04-2030 Urine microalbumin profile DTa P,Tdap,Td Vaccine (4 - Td or Tdap) [facility] Start: 03-10-2024 Tobacco Screening Tobacco Screening [facility] Start: 02-23-2024 Screening for malign ant neoplasm of cervix [facility] Start: 12-21-2023 Covid-19 Vaccine () Covid-19 Vaccine () [facility] Start: 12-21-2023 Covid-19 Vaccine ( season) Covid-19 Vaccine () [facility] Start: 12-21-2023 Influenza vaccination Influenza Vacc ine (#1) [facility] Start: 08-09-2023 Adult BMI Screening Adult BMI Screen ing [facility] Start: 08-09-2023 Depression Screening Depression Scre ening [facility] Start: 05-29-2023 End: 05-29-2023 Patient encounter procedure 05/29/2023 8:10 AM EST Office Visit [facility] [address] [place] [place] [address] Guillaume Vasquez, DO [address] [place] [address] Irregular menses [facility] Comment on above: Irregular menses Start: 12-20-2022 Covid-19 Vaccine () Covid-19 Vaccine () [facility] Start: 12-20-2022 Influenza vaccination INFLUENZA (#1) [facility] Start: 11-15-2022 End: 01-15-2023 Comprehensive metabolic 2000 panel - Serum or Plasma [facility] Work Phone: Comment on above: Expected: 11/15/2022 , Expires: 01/15/2023 Start: 11-15-2022 End: 01-15-2023 Lipid 1996 panel - Serum or Plasma [facility] Work Phone: Comment on above: Expected: 11/15/2022 , Expires: 01/15/2023 Start: 11-15-2022 End: 01-15-2023 T4/FTI/T4U [facility] Work Phone: Comment on above: Expected: 11/15/2022 , Expires: 01/15/2023 Start: 11-15-2022 End: 01-15-2023 Thyrotropin [Units/volume] in Serum or Plasma [facility] Work Phone: Comment on above: Expected: 11/15/2022 , Expires: 01/15/2023 Start: 08-26-2022 End: 03-28-2023 XR HIP GENERAL 3V PELV/AP/LAT RIGHT XR HIP GENERAL 3V PELV/AP/LAT RIGHT Radiology Routine Lytic bone lesion of femur Expected: 08/26/2022, Expires: 03/28/2023 [facility] Work Phone: Comment on above: Expected: 08/26/2022 , Expires: 03/28/2023 Start: 08-09-2022 End: 10-09-2022 25-hydroxyvitamin D3 [Mass/volume] in Serum or Plasma [facility] Work Phone: Comment on above: Expected: 08/09/2022 , Expires: 10/09/2022 Start: 04-21-2022 DEPRESSION ASSESSMENT DEPRESSION ASS ESSMENT [facility] Start: 12-20-2021 Influenza vaccination INFLUENZA (#1) [facility] Start: 12-06-2021 End: 02-05-2022 Thyrotropin [Units/volume] in Serum or Plasma [facility] Work Phone: Comment on above: Expected: 12/06/2021 , Expires: 02/05/2022 Start: 12-06-2021 End: 02-05-2022 Thyroxine (T4) free [Mass/volume] in Serum or Plasma [facility] Work Phone: Comment on above: Expected: 12/06/2021 , Expires: 02/05/2022 Start: 12-06-2021 End: 02-05-2022 Triiodothyronine (T3) [Mass/volume] in Serum or Plasma [facility] Work Phone: Comment on above: Expected: 12/06/2021 , Expires: 02/05/2022 Start: 11-08-2021 End: 01-08-2022 Choriogonadotropin ( test) [Presence] in Urine [facility] Work Phone: Comment on above: Expected: 11/08/2021 , Expires: 01/08/2022 Start: 11-08-2021 End: 01-08-2022 URINALYSIS, REFLEX MICROSCOPIC [facility] Work Phone: Comment on above: Expected: 11/08/2021 , Expires: 01/08/2022 Start: 04-21-2021 DEPRESSION ASSESSMENT DEPRESSION ASS ESSMENT [facility] Start: 2021 HPV TESTING HPV TESTING [facility] Start: 10-13-2020 COVID-19 VACCINE (3 - Booster for Moderna series) COVID-19 VACCINE (3 - Booster for Moderna series) [facility] Start: 07-10-2020 COVID-19 VACCINE (3 - Booster for Moderna series) COVID-19 VACCINE (3 - Booster for Moderna series) [facility] Start: 07-10-2020 COVID-19 VACCINE (3 - Moderna series) COVID-19 VACCINE (3 - Moderna series) [facility] Start: 02-08-2012 PAP TESTING PAP TESTING [facility] Start: 02-08-2012 Screening for malign ant neoplasm of cervix [facility] Start: 2010 Urine microalbumin profile DTA P,TDAP,TD (1 - Tdap) [facility] Start: 2009 Anxiety Screening Anxiety Screening [facility] Start: 2009 Depression Screening Depression Scre ening [facility] Start: 2009 HEPATITIS C SCREENING HEPATITIS C SC KILEY [facility] Start: 2009 HIV SCREENING HIV SCREENING [facility] Start: 2003 Adult depression scr eening assessment DEPRESSION SCREENING [facility] Start: 1997 Pneumococcal vaccination [facility] Start: 1991 HEPATITIS B (1 of 3 - 3-dose series) HEPATITIS B (1 of 3 - 3-dose series) [facility] Bacteria identified in Urine by Culture URINE CULTURE Microbiology Routine Pelvic pain 11/08/2021 11:36 AM EDT [facility] Work Phone: End: 06-02-2023 Drug Screen, Urine [...] lesion 1 Occurrences starting 02/25/2023 until 03/26/2024 [facility] Work Phone: Comment on above: 1 Occurrences starti ng 02/25/2023 until 03/26/2024 End: 03-18-2024 XR HIP GENERAL 3V PELV/AP/LAT RIGHT XR HIP GENERAL 3V PELV/AP/LAT RIGHT Radiology Routine Lytic bone lesion of femur 1 Occurrences starting 02/17/2023 until 03/18/2024 [facility] Work Phone: Comment on above: 1 Occurrences starti ng 02/17/2023 until 03/18/20[facility] Immunization Date Immunization Notes Care Provider Jonathan lara 01-28-2023 influenza virus vaccine, unspecified formulation Roni Dumas MD Work Phone: [facility] 02-14-2022 influenza virus vaccine, unspecified formulation Rosas Mckinney MD Work Phone: [facility] 01-18-2021 influenza virus vaccine, unspecified formulation Macy Jones APRN.CNP Work Phone: [facility] 03-01-2020 influenza, seasonal, injectable Imad Asaad Other [employer] Other 02-03-2016 influenza, injectable, quadrivalent, contains preservative Imad Asaad Other [employer] Other NEGATED: Highlighted row has not occurred!03-02-2019 influenza, seasonal, injectable Imad Asaad Other [employer] Other Payers Date Payer Category Payer Unknown [id number] 1990 Unknown [id number] 2.16.84 [id number] 1991 Unknown [id number] 2.16.84 0.1.656403.3.579.2.593 1991 Unknown [id number] 2.16.84 0.1.395536.3.579.2.593 1991 Unknown [id number] 2.16.8 40.1.259838.3.579.2.727 1991 Unknown [id number] 2.16.8 40.1.449751.3.579.2.727 1991 Unknown [id number] 2.16.84 0.1.270314.3.579.2.1286 1991 Unknown [id number] 2.16.8 40.1.575765.3.579.2.1286 1991 Unknown [id number] 2.16.8 40.1.346668.3.579.2.1286 1991 Unknown [id number] 2.16.8 40.1.543558.3.579.2.1286 1991 Unknown [id number] 2.16.84 0.1.233780.3.579.2.1259 1991 Unknown [id number] 2.16.84 0.1.388015.3.579.2.1259 1991 Unknown [id number] 2.16.84 0.1.873442.3.579.2.1259 1991 Unknown [id number] 2.16.84 0.1.412186.3.579.2.1259 1991 Unknown [id number] 2.16.84 0.1.483132.3.579.2.1259 1991 Unknown [id number] 2.16.84 0.1.529896.3.579.2.1259 1991 Unknown [id number] 2.16.84 0.1.921382.3.579.2.1259 1991 Unknown [id number] 2.16.84 0.1.872522.3.579.2.1259 1991 Unknown [id number] 2.16.84 0.1.742684.3.579.2.1259 1991 Unknown [id number] 2.16.840. 1.591228.3.579.2.1259 1959 Unknown [id number] Social History Date Type Detail Facility Tobacco smoking status ORIS Tobacco smoking consumption unknown [facility] Work Phone: Start: 1990 Sex Assigned At Not on file [facility] Start: 10-29-2021 End: 02-26-2022 Exposure to SARS-CoV-2 (event) Not sure [facility] Start: 03-21-2013 End: 02-11-2022 Tobacco smoking status Ex-smoker (finding) [facility] Comment on above: quit 01/2013 Start: 02-11-2022 End: 02-26-2022 Sex Assigned At Female [facility] History of tobacco use Current smoker [facility] History of tobacco use Cigarette Smoker [facility] History of tobacco use Passive smoker [facility] Start: 02-11-2022 End: 08-08-2022 Tobacco use and exposure Smokeless tobacco non-user [facility] Start: 02-11-2022 End: 02-26-2022 Alcohol intake Current drinker of alcohol (finding) [facility] Tobacco smoking status Never [facility] Start: 02-11-2022 End: 02-26-2022 History of Social function [facility] Start: 02-25-2023 End: 05-28-2023 Tobacco smoking status NHIS Occasional tobacco smoker [facility] Start: 08-08-2022 Alcohol Comment on the weekends [facility] Start: 05-28-2023 Alcohol Comment caffeine: 2-3 cups per day coffee; soda [facility] Functional Status Date Assessment Result Facility 05-26-2022 Functional Status N/A [facility] 02-23-2022 Functional Status N/A [facility] Clinical Notes 08-20-2015 to 06-02-2023 Guillaume Vasquez DO - 06/02/2023 4:20 PM ESTPsychiatric Progress Note - Asif Schaefer APRN-ELECTROTYPER HELPER - 05/02/2023 10:00 AM ESTPatient Rosas Wilson MD - 02/25/2023 1:10 PM EST Note Date & Type Note Facility 06-02-2023 History of Present illness Narrative Reason for Appointment: Patient ID: Jessee Almodovar is a 33 y.o. female who presents for No chief complaint on file. Patient presents today via telephone call for a telehealth appointment. Patients Phone #: [phone] (mobile) Current Medications: has a current medication [...] or as needed. Will consider referral to [facility] in future Documented by Guillaume Vasquez DO on behalf of: Guillaume Vasquez DO documented in this encounter [facility] 05-02-2023 Miscellaneous Notes [address] [place] [address] Patient: Jessee Almodovar Date of : 1990 Encounter Date: 05/02/2023 History of Present Illness/Psychiatric Review of Symptoms/Medical Review of Systems: Video Visit via Real-time Synchronous Audiovisual Provider Location: [facility] [address] [place] [address] Patient Location: patient's office in [place], [place] Video Visit Consent Statement: I discussed [...] that there are some limitations compared to tvmw-op-lxpn evaluations. The patient consented to the presence of additional virtual and/or in-person participants. We elected to proceed. Jessee is a 33 y.o. female, established patient, and is logged on via [employer] [place] for a follow-up video visit. HPI: Jessee reports she is feeling about the same since last visit. She was unable to tell the difference between taking the immediate release Adderall. She expresses frustrations with still feeling easily distractible. She has had a lot going on since the holidays. She enjoyed Gina and new 's with her immediate family. She traveled to [place] to see her parents, which went well. [...] Moderate episode of recurrent major depressive disorder ([facility]) Generalized anxiety disorder Medication Changes: yes [...] Leon 05/02/23 1746 documented in this encounter [facility] 05-02-2023 Progress note Formatting of t his note is different [place] [address] Patient: Jessee Almodovar Date of : 1990 Encounter Date: 05/02/2023 History of Present Illness/Psychiatric Review of Symptoms/Medical Review of Systems: Video Visit via Real-time Synchronous Audiovisual Provider [facility] [address] [place] [address] Patient Location: patient's office in [place], [place] Video Visit Consent Statement: I discussed [...] that there are some limitations compared to nprc-ja-dgjt evaluations. The patient consented to the presence of additional virtual and/or in-person participants. We elected to proceed. Jessee is a 33 y.o. female, established patient, and is logged on via [employer] [place] for a follow-up video visit. HPI: Jessee reports she is feeling about the same since last visit. She was unable to tell the difference between taking the immediate release Adderall. She expresses frustrations with still feeling easily distractible. She has had a lot going on since the holidays. She enjoyed Gina and 's with her immediate family. She traveled to [place] to see her parents, which went well. [...] Moderate episode of recurrent major depressive disorder ([facility]) Generalized anxiety disorder Attention deficit hyperactivity [...] Moderate episode of recurrent major depressive disorder ([facility]) Generalized anxiety disorder Medication Changes: yes [...] SCHAEFER CNP, PMP-. BARAK De Leon 05/02/23 3204 [facility] 02-25-2023 Instructions Tiana Croinn PA-C - 02/25/2023 1:56 PM EST Images from the original note were not included. MRI right hip Home exercises Continue with NSAIDS CSI right hip- may repeat in 3 months if needed documented in this encounter [facility] 02-25-2023 Note HNO ID: [id number] Author: Rosas Mckinney MD Service: ? Author [...] AAOS (more content not included)... [facility] 02-25-2023 History of Present illness Narrative Associated [...] trochanteric bursa Informed Consent Consent Obtained: Verbal [place] Protocol A moment to CARE was completed. [...] Time: 10:49 PM documented in this encounter [facility] 02-20-2023 History of Present illness Narrative Radiology [...] 2023 8:45 AM documented in this encounter [facility] 02-20-2023 Note HNO ID: [id number] Author: Kathrine Smith RT(Kena) Service: ? Author [...] February 20, 2023 8:45 AM [facility] 02-17-2023 Miscellaneous Notes Jourdan Atkins, My MA Karyna is having quite a bit of pain and dysfunction in the right hip. Most days in the mornings especially, are excruciating for her and she's unable to sleep on her right side. Would you mind to see her again please? I can get additional imaging first, if you'd like. Thanks, Td. documented in this encounter [facility] 08-01-2022 History of Present illness Narrative Radiology [...] 2022 9:04 AM documented in this encounter [facility] 07-10-2022 Evaluation note Encounter Date Diagnosis Assessment Notes Jun, Constipation (ICD-10 - K59.00) Jun, Change in bowel habits (ICD-10 - R19.4) Jun, Diarrhea (ICD-10 - R19.7) Patient to start Align probiotic. Jun, Bloating (ICD-10 - R14.0) [employer] Other 02-05-2023 Hospital Discharge instructions Patient Education 05/26/2022 10:06:58 Strep Throat, Adult, Iwad-ke-Bqby Strep Throat, Adult Strep throat is an [...] Follow these instructions at home: Medicines Take ybsj-fvh-szxazdn and prescription medicines only as told by [...] 09/23/2008 Document Revised: 06/25/2019 Document Reviewed: 06/25/2019 [employer] Patient Education 2020 [employer]. 05/26/2022 10:06:56 BMI for Adults BMI for [...] height. This can be done either in [place] or metric measurements. Note that charts are available to help you find your BMI quickly and easily without having to do these calculations yourself. To calculate your BMI in [place] measurements, your health care provider will: [...] medical problems. BMI can be measured using [place] measurements or metric measurements. To interpret your [...] 12/17/2004 Document Revised: 03/20/2018 Document Reviewed: 02/18/2018 [employer] Patient Education 2020 [employer]. Follow Up Care 05/26/2022 09:09:50 With:CHELSEA KRAUS DO Address: [employer] [address] [place] [address]- When: Unknown 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 Patient does [...] being sent back to Roni Dumas via [email or web address] Historical Interpreter or Chart CC for [facility] Providers. Rosas Mckinney MD [employer] Fabrication Supervisor, Orthopaedic Surgery Division of Musculoskeletal Oncology [facility] Evaluation + Plan note Extracted from: Title:ED Note Author:Mohan Garcia PA-C te:02/23/22 Sprain of left foot (S93.602 A: Unspecified sprain of left foot, initial encounter) Orders: Crutches Elastic Bandage Application XR Foot 3+ Views Left [facility]11-05-2022 Hospital Discharge instructions Patient Education 02/23/2022 [...] fully hardened. This may takeseveral hours. Take enbs-mbl-pyjznou and prescription medicines only as told by [...] 09/27/2002 Document Revised: 04/11/2018 Document Reviewed: 04/11/2018 [employer] Patient Education 2020 [employer]. 02/23/2022 11:07:01 How to Use Cold Therapy, Oxun-sg-Ylif How to Use Cold Therapy Cold therapy, [...] 09/23/2008 Document Revised: 01/04/2019 Document Reviewed: 01/04/2019 [employer] Patient Education 2020 [employer] 02/23/2022 11:07:01 Elastic Bandage and RICE [...] limityour activities and whether you should start cglpd-sm-nfrldk exercises for your injury. Ice Ice your [...] 09/27/2002 Document Revised: 12/26/2017 Document Reviewed: 12/26/2017 [employer] Patient Education 2020 [employer]. Follow Up Care 02/23/2022 09:05:48 With:CHELSEA KRAUS Address: [employer] [address] [place], [place] [address]- Business (1) When:02/26/2022 10:46:43 Comments:Follow-up with your primary care provider in 3 to 5 days. If symptoms worsen, do not improve, or new symptoms arise please report back to emergency department for further evaluation. [facility]10-31-2022 History of Present illness Narrative* Kathrine [...] 18, 2022 3:09 PM [facility] Nurse Note* Lillie Smith - 11/08/2021 11:25 AM EDT UA performed as ordered. Lillie Smith documented in this encounterBl[facility]06-[facility] History of Present illness Narrative* Macy Jones APRN.CNP - 10/04/2021 3:36 PM EDT Physical documented in this [facility]2016 History general Narrative - Reported* Type Description Date Medical History Bernardo's thyroiditis Medical History Post- depression 2019 Surgical History D & C d/t miscarriage 08/2015 Surgical History LEEP 2012 Hospitalization History child [employer] Other Evaluation note* Diagnosis Acute bilateral low back pain with bilateral sciatica- Primary [facility]* Diagnosis Pelvic pain- Primary [facility]* Diagnosis Dysuria- Primary [facility]* Diagnosis Dysuria- Primary [facility]* Diagnosis Unspecified hypothyroidism- Primary [facility]* Diagnosis Lytic bone lesion of femur- Primary [facility]* Diagnosis Moderate episode of recurrent major depressive disorder (HCC)- Primary [facility]* Diagnosis Unspecified hypothyroidism- Primary Essential hypertension, malignant Lipids blood increased Other and unspecified hyperlipidemia Vegans' anemia Other vitamin B12 deficiency anemia [facility] Diagnosis Lytic bone lesion of femur- Primary [facility]* Diagnosis Lytic bone lesion of femur- Primary Greater trochanteric bursitis of right hip Enthesopathy of hip region Chronic pain of right hip Chronic low back pain, unspecified back pain laterality, unspecified whether sciatica present Pain of right hip Bone lesion Disorder of bone and cartilage, unspecified [facility]* Diagnosis Attention deficit hyperactivity disorder (ADHD), predominantly 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 ([facility]) Generalized anxiety disorder [facility]* Diagnosis Irregular menses- Primary Irregular menstrual cycle [facility] Diagnosis Lytic bone lesion of femur [facility]* Diagnosis Lytic bone lesion of femur [facility]* Diagnosis Lytic bone lesion of femur documented in this encounter [facility] course Narrative No data available for this section [facility]* Attachments The following attachments cannot be sent through Care Everywhere. * Methylphenidate, ADULT ([place]ots[place]an) [facility] No data available for this section [facility] (narrative)* Diagnostic Procedure Only (Routine) - Pending Review Specialty Diagnoses / Procedures Referred By Contac t Referred To Contact XR IMAGING Diagnoses Lytic bone lesion of femur Procedures XR HIP GENERAL 3V PELV/AP/LAT RIGHT RADEX HIP UNILATERAL WITH PELVIS 2-3 VIEWS Rosas Mckinney MD [address] [facility] [address] [place] [address] Xr Imaging Referral ID Status Reason Start Date Expiration Date Visits Requested Visits Authorized [id number] Pending Review Auto-Generat ed Referral 08/26/2022 03/28/2023 1 1 [facility] for referral (narrative)* Diagnostic Procedure Only (Routine) - Pending Review Specialty Diagnoses / Procedures Referred By Contac t Referred To Contact XR IMAGING Diagnoses Lytic bone lesion of femur Procedures XR HIP GENERAL 3V PELV/AP/LAT RIGHT RADEX HIP UNILATERAL WITH PELVIS 2-3 VIEWS Tiana Cronin PA-C [address] [place] [address] [place] [address] Referral ID Status Reason Start Date Expiration Date Visits Requested Visits Authorized [id number] Pending Review Auto-Generat ed Referral 03/18/2024 1 1 [facility] for referral (narrative)* Diagnostic Procedure Only (Routine) - Closed Specialty Diagnoses / Procedures Referred By Contac t Referred To Contact XR IMAGING Diagnoses Lytic bone lesion of femur Procedures XR HIP GENERAL 3V PELV/AP/LAT RIGHT RADEX HIP UNILATERAL WITH PELVIS 2-3 VIEWS Roni Dumas MD [address] [place] [address] [place] [address] [place] [address] Referral ID Status Reason Start Date Expiration Date V isits Requested Visits Authorized [id number] Closed Auto-Generate d Referral 02/17/2023 03/18/2024 1 1 [facility] for referral (narrative)* Diagnostic Procedure Only (Routine) - Closed Specialty Diagnoses / Procedures Referred By Contac t Referred To Contact XR IMAGING Diagnoses Lytic bone lesion of femur Procedures XR HIP GENERAL 3V PELV/AP/LAT RIGHT RADEX HIP UNILATERAL WITH PELVIS 2-3 VIEWS Rosas Mckinney MD [address] [place] [address] [place] [address] Referral ID Status Reason Start Date Expiration Date V isits Requested Visits Authorized [id number] Closed Auto-Generate d Referral 08/26/2022 03/28/2023 1 1 [facility] for referral (narrative)* Diagnostic Procedure Only (Routine) - Closed Specialty Diagnoses / Procedures Referred By Bry pittman Referred To Contact XR IMAGING Diagnoses Lytic bone lesion of femur Procedures XR HIP GENERAL 3V PELV/AP/LAT RIGHT RADEX HIP UNILATERAL WITH PELVIS 2-3 VIEWS Roni Dumas MD [address] [address] Xr Imaging [facility] Referral ID Status Reason Start Date Expiration Date V isits Requested Visits Authorized [id number] Closed Auto-Generate d Referral 02/18/2022 03/20/2023 1 1 [facility] Reason for Referral Specialty Diagnoses / Procedures Referred By Bry pittman Referred To Contact [facility] Diagnoses Acute bilateral low back pain with bilateral sciatica Procedures CONSULT TO PHYSICAL THERAPY PHYSICAL THERAPY EVALUATION HIGH COMPLEX 45 MINS Macy Jones, CERTIFIED BREASTFEEDING EDUCATOR.ELECTROTYPER HELPER [address] [place] [address] [facility] [place] [address] [place] [address] Referral ID Status Reason Start Date Expiration Date Visits Requested Visits Authorized [id number] Pending Review Auto-Generat ed Referral 10/04/2021 10/04/2022 1 1 Specialty Diagnoses / Procedures Referred By Bry pittman Referred To Contact MR IMAGING Diagnoses Greater trochanteric bursitis of right hip Chronic pain of right hip Pain of right hip Bone lesion Procedures MRI HIP WO IVCON RIGHT MRI ANY JT LOWER EXTREM W/O CONTRAST MATRL Tiana Cronin PA-C [address] [place] [address] Mr Imaging [place] [address] Referral ID Status Reason Start Date Expiration Date Visits Requested Visits Authorized [id number] Authorized Auto-Generat ed Referral 02/25/2023 03/26/2024 1 [...] or prosecute any alcohol or drug abuse patient.[facility] the event this information is protected by the Federal Confidentiality of Alcohol and Drug Abuse Patient Records regulations: The Federal rules restrict any use of the information to criminally investigate or prosecute any alcohol or drug abuse patient.[facility] System[facility] the event this information is protected by the Federal Confidentiality of Alcohol and Drug Abuse Patient Records regulations: The Federal rules restrict any use of the information to criminally investigate or prosecute any alcohol or drug abuse patient.[facility] System[facility] the event this information is protected by the Federal Confidentiality of Alcohol and Drug Abuse Patient Records regulations: The Federal rules restrict any use of the information to criminally investigate or prosecute any alcohol or drug abuse patient.[facility] System[facility] the event this information is protected by the Federal Confidentiality of Alcohol and Drug Abuse Patient Records regulations: The Federal rules restrict any use of the information to criminally investigate or prosecute any alcohol or drug abuse patient.[facility] System[facility] the event this information is protected by the Federal Confidentiality of Alcohol and Drug Abuse Patient Records regulations: The Federal rules restrict any use of the information to criminally investigate or prosecute any alcohol or drug abuse patient.[facility] System[facility] the event this information is protected by the Federal Confidentiality of Alcohol and Drug Abuse Patient Records regulations: The Federal rules restrict any use of the information to criminally investigate or prosecute any alcohol or drug abuse patient.[facility] System[facility] the event this information is protected by the Federal Confidentiality of Alcohol and Drug Abuse Patient Records regulations: The Federal rules restrict any use of the information to criminally investigate or prosecute any alcohol or drug abuse patient.[facility] System[facility] the event this information is protected by the Federal Confidentiality of Alcohol and Drug Abuse Patient Records regulations: The Federal rules restrict any use of the information to criminally investigate or prosecute any alcohol or drug abuse patient.[facility] System[facility] the event this information is protected by the Federal Confidentiality of Alcohol and Drug Abuse Patient Records regulations: The Federal rules restrict any use of the information to criminally investigate or prosecute any alcohol or drug abuse patient.[facility] System[facility] the event this information is protected by the Federal Confidentiality of Alcohol and Drug Abuse Patient Records regulations: The Federal rules restrict any use of the information to criminally investigate or prosecute any alcohol or drug abuse patient.[facility] System[facility] the event this information is protected by the Federal Confidentiality of Alcohol and Drug Abuse Patient Records regulations: The Federal rules restrict any use of the information to criminally investigate or prosecute any alcohol or drug abuse patient.[facility] SystemIn the event this information is protected by the Federal Confidentiality of Alcohol and Drug Abuse Patient Records regulations: The Federal rules restrict any use of the information to criminally investigate or prosecute any alcohol or drug abuse patient.[facility] Patient Care team informatio n (unrecognized section and content) Disciplinary Hearing Officer Relationship Specialty Start Date End Date Anupama Brown DO [address] [place] [address] [place] [address] PCP - General Family Medicine 07/25/22 Emile Mesa MD [address] [place] [address] Gastroenterology 07/25/22 Guillaume Vasquez, DO [address] [place] [place] [address] MILK RUNNER 07/25/22 Disciplinary Hearing Officer Relationship Specialty Start Date End Date Anupama Brown DO [address] [address] PCP - General Family Medicine 07/25/22 Emile Mesa MD [address] [place] [address] Gastroenterology 07/25/22 Guillaume Vasquez DO [address] [place] [place] [address] MILK RUNNER 07/25/22 Disciplinary Hearing Officer Relationship Specialty Start Date End Date Anupama Brown DO [address] [place] [address] PCP - General Family Medicine 07/25/22 Emile Mesa MD [address] [place] [address] Gastroenterology 07/25/22 Guillaume Vasquez DO [address] [place] [address] MILK RUNNER 07/25/22 Disciplinary Hearing Officer Relationship Specialty Start Date End Date Anupama Brown, [address] [place] [address] PCP - General Family Medicine 07/25/22 Emile Mesa MD [address] [place] [address] [place] [address] Gastroenterology 07/25/22 Guillaume Vasquez DO [address] [place] [address] [place] [address] MILK RUNNER 07/25/22 Disciplinary Hearing Officer Relationship Specialty Start Date End Date Chelsea Kraus DO [address] [facility] [address] [place] [address] PCP - General Family Medicine 07/02/19 Disciplinary Hearing Officer Relationship Specialty Start Date End Date Anupama Brown MD [address] [place] [id number] PCP - General Family Medicine 03/04/23 Disciplinary Hearing Officer Relationship Specialty Start Date End Date Anupama Brown MD [address] [place] [id number] PCP - General Family Medicine 03/04/23 Disciplinary Hearing Officer Relationship Specialty Start Date End Date Anupama Brown DO [address] [place] [address] PCP - General Family Medicine 07/25/22 Emile Mesa MD [address] [place] [address] [place] [address] Gastroenterology 07/25/22 Guillaume Vasquez DO [address] [place] [address] Meal Cooker 07/25/22 Disciplinary Hearing Officer Relationship Specialty Start Date End Date KevinAnupama garcía DanielleDO [address] [facility] [place] [address] PCP - General Family Medicine 07/25/22 Emile Mesa MD [address] [place] [address] Gastroenterology 07/25/22 Guillaume Vasquez DO [address] [place] [address] Meal Cooker 07/25/22 Reason for Visit (unrecogniz ed section and content) Reason Comments New Pain Tumor/Mass Specialty Diagnoses / Procedures Referred By Contac t Referred To Contact Orthopedics Diagnoses Lytic bone lesion of femur Procedures CONSULT TO ORTHOPAEDICS OFFICE/OUTPATIENT NEW HIGH MDM 60-74 MINUTES Roni Dumas MD [address] [place] [address] [place] [address] Referral ID Status Reason Start Date Expiration Date V isits Requested Visits Authorized [id number] Closed PCP Requested Referral 02/18/2022 02/18/2023 1 1 Reason Comments New Pain Reason Comments Radio Gen RMP Specialty Diagnoses / Procedures Referred By Contac t Referred To Contact XR IMAGING Diagnoses Lytic bone lesion of femur Procedures XR HIP GENERAL 3V PELV/AP/LAT RIGHT RADEX HIP UNILATERAL WITH PELVIS 2-3 VIEWS Roni Dumas MD [address] [facility] [place] [address] [place] [address] Referral ID Status Reason Start Date Expiration Date V isits Requested Visits Authorized [id number] Closed Auto-Generate d Referral 02/17/2023 03/18/2024 1 1 Specialty Diagnoses / Procedures Referred By Contac t Referred To Contact XR IMAGING Diagnoses Lytic bone lesion of femur Procedures XR HIP GENERAL 3V PELV/AP/LAT RIGHT RADEX HIP UNILATERAL WITH PELVIS 2-3 VIEWS Rosas Mckinney MD [address] [place] [address] Xr Imaging [place] [address] Referral ID Status Reason Start Date Expiration Date V isits Requested Visits Authorized [id number] Closed Auto-Generate d Referral 08/26/2022 03/28/2023 1 1 Referral ID Status Reason Start Date Expiration Date V isits Requested Visits Authorized [id number] Closed Auto-Generate d Referral 02/18/2022 03/20/2023 1 1 INFORMATION SOURCE (unrecogn ized section and content) DATE CREATED AUTHOR 05/08/2022 [facility] DATE CREATED AUTHOR AUTHOR'S ORGANIZ ATION 05/26/2022 [facility] DATE CREATED AUTHOR AUTHOR'S ORGANIZ ATION 05/04/2023 [facility] DATE CREATED AUTHOR AUTHOR'S ORGANIZ ATION 06/06/2023 [facility] DATE CREATED AUTHOR AUTHOR'S ORGANIZ ATION 10/17/2023 [facility] DATE CREATED AUTHOR AUTHOR'S ORGANIZ ATION 01/15/2024 [facility] EPIC DATE CREATED AUTHOR AUTHOR'S ORGANIZ ATION 01/20/2024 [facility] FOR RECORDS PERTAINING TO PATIENTS WHO ARE [...] BE BASED ON THE PRIMARY CLINICAL RECORDS. [employer] [facility]. provides no warranty or guarantee of the accuracy or completeness of information in this document.
--- NOTE | 2024-01-28 09:18 | US_ITS ---
[address] [address] Patient Name: JESSEE JEFFERS MRN: [id number] date: 1990 Sex: F Assigned Patient Location: [facility] Current Patient Location: [facility] Accession/Order Number: [id number] Exam Date: 01/28/2024 09:20 Report Date: 01/28/2024 10:20 At the request of: TEE RUBIN Procedure: US OB BPP w non-stress EXAMINATION: US OB BPP w non-stress HISTORY:repeat - 09/26 on Friday01/24/24 COMPARISON: Ultrasound OB biophysical 01/24/2024 TECHNIQUE: Ultrasound biophysical profile was performed in the radiology department. BREATHING MOVEMENTS: 2 GROSS BODY MOVEMENTS: 2 TONE: 2 QUALITATIVE AMNIOTIC FLUID VOLUME: 2 PRESENTATION: CEPHALIC HEART RATE: 142.86 bpm AMNIOTIC FLUID VOLUME: 21.89 cm GESTATIONAL AGE: 33 weeks 6 days US/US OB BPP w non-stress IMPRESSION: Total biophysical profile score: 8 Electronically authenticated by: JENNIFER HARTLEY Date: 01/28/2024 10:20
[2024-01-28 09:48] VITALS: BP 122/75; PULSE 85
== END 2024-01-28 10:27 | disposition home or self-care (01) ==
LOC: FBCO 07:01 → FBC 09:16
PROVIDERS: Visit Provider Obstetrics & Gynecology
DX: O99.283 Endocrine, nutritional and metabolic diseases complicating pregnancy, third trimester (principal); Z3A.33 33 weeks gestation of pregnancy
CPT/HCPCS: 76818

== ENCOUNTER 2024-01-31 06:32 | Outpatient (OUT) | payer OTHER, SELFPAY ==
--- OUTSIDE RECORDS SUMMARY | 2024-01-31 06:34 | XMS_ITS | CCD ---
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 [facility] Care Team Providers Care External Auditor Name Role Phone Unavailable Primary Care Provider [...] Unavailable PEDRO, DR OLIVEIRA Primary Care Unavailable [place], DR EMELIA Luna Consulting Unavailable PEDRO, DR OLIVEIRA Consulting Unavailable Chayo Anne Attending Unavailable Roxanne MOSLEY Attending Unavailable Asaad, Imad Unavailable Anupama Brown DO Primary Care Provider Emile Mesa MD Unavailable Guillaume Vasquez DO Unavailable Anupama Brown DO Primary Care Provider Emile Mesa MD Unavailable Chelsea Kraus DO Primary Care Provider ASIF SCHAEFER Attending Unavailable CHELSEA KRAUS Referring Unavailable CHELSEA KRAUS Primary Care Unavailable Anupama Brown MD Primary Care Provider [phone] ASIF SCHAEFER Attending Unavailable EFRA, CHELSEA Quezada Referring Unavailable EFRA, CHELSEA A Primary Care Unavailable EFRA, CHELSEA A Referring Unavailable EFRA, CHELSEA A Primary Care Unavailable HECTOR MANCERA Attending Unavailable EFRA, CHELSEA A Referring Unavailable EFRA, CHELSEA A Primary Care Unavailable Kevin Anupama Danielle Primary Care Provider Moshe PALOMINO, Imkatlyn Unavailable Pedro DO, Guillaume R Unavailable Unavailable Primary Care Provider Unavailabl e PEDRO, GUILLAUME R Referring Unavailable KEVIN, [facility] Primary Care Unavailabl e KEVIN, [facility] Primary Care Unavailabl e ELISEO SANDERSON Referring Unavailable PEDRO, GUILLAUME R Referring Unavailable [facility] Primary Care Unavailabl e PEDRO, GUILLAUME R Referring Unavailable KEVIN, [facility] Care Unavailabl e KEVIN, [facility] Primary Care Unavailabl e ASIF SCHAEFER Referring Unavailable KEVIN, [facility] Primary Care Unavailabl e KEVIN, [facility] Primary Care Unavailabl e KEVIN, [facility] Primary Care Unavailabl e ROSAS MCKINNEY Attending Unavailable ABHYANKAR, RONI Referring Unavailable [facility], [facility] Primary Care Unavailabl e ABHYANKARDOUGLASEK Referring Unavailable KEVIN, [facility] Primary Care Unavailabl e KEVIN, [facility] Primary Care Unavailabl e PEDRO, GUILLAUME Attending Unavailable PEDRO, GUILLAUME Attending Unavailable PEDRO, GUILLAUME Attending Unavailable KINELISEO BUTLER Attending Unavailable PEDRO, GUILLAUME Attending Unavailable KINELISEO BUTLER Attending Unavailable PEDRO, GUILLAUME Attending Unavailable PEDRO, GUILLAUME Attending Unavailable PEDRO, GUILLAUME Attending Unavailable KIN, ELISEO Attending Unavailable Medications Current Medications Medication Drug Class(es) Dates Sig (Normalized) Sig (Original) amoxicillin 500 mg oral capsule (1 source) Penicillin-class Antibacterial Start: 05-26-2022 End: 06-05-2022 take 1 capsule by mouth every twelve hours amoxicillin 500 mg Cap 500 mg = 1 cap(s), Oral, q12hr, X 10 day(s), # 20 cap(s), Refills(s) 0, Pharmacy: [facility], 172, cm, 05/26/22 9:34:00 [...] Start: 09-11-2021 take 1 capsule by mo uth once daily in the morning omeprazole (PRILOSEC) 40 mg capsule Take 1 capsule by mouth once daily in the morning, wait 20-30 minutes before eating or taking other medications 90 capsule 1 12/31/2021 Active Comment on above: Take 1 capsule by mo uth once daily. Wait 20-30 minutes before eating or taking other medications. Take 1 capsule by mo uth once daily in the morning, wait 20-30 minutes before eating or taking other medications Take 1 capsule by mo uth once daily. 20-30 minutes before eating or taking other medications Take 1 tablet by suzanna th once daily in the morning, 20-30 minutes before eating or taking other medications Take 1 capsule by mo uth twice daily. PNV no.95/ferrous fum/folic ac ( [...] tablet (11 sources) Serotonin Reuptake Inhibitor Start: traZODone (Desyrel) 100 MG tablet Take 100 [...] therapy) Start: 02-11-2023 take 1 capsule by mo ut once daily in the morning amphetamine-dextroamphetamine XR [...] on above: Take 1 capsule by mo [facility] once daily. citalopram 20 mg oral tablet [...] Comment on above: Take 1 capsule by [facility] twice daily. escitalopram 20 mg oral tablet [...] above: Take 1 tablet by [facility] once daily. fluconazole 150 mg oral tablet (8 sources) Azole Antifungal Start: 02-07-20 End: 02-26-20 take 1 tablet by mouth once fluconazole (DIFLUCAN) 150 mg tablet 1 (one) tablet by mouth one time dose 1 tablet 1 02/06/2022 02/25/2023 Discontinued Comment on above: 1 (one) tablet by [facility] one time dose hydrOXYzine hydrochloride 50 mg [...] above: Take 1 tablet by [facility] three times daily as needed. 10 ml lidocaine hydrochloride 10 mg/ml injection (1 source) Antiarrhythmic, Amide Local Anesthetic Start: 3 End: lidocaine (PF) 10 mg/mL (1 %) 4 mL injection (XYLOCAINE) 1 ml medroxyPROGESTERone acetate 150 mg/ml prefilled syringe (20 sources) Progestin Start: End: medroxyPROGESTERone (DEPO-PROVERA) 150 mg/mL Indications: Excessive or frequent menstruation Inject 1 (one) Milliliter every 12 weeks 1 mL 3 09/26/2020 02/25/2023 Discontinued Start: 08-23-2020 End: 02-25-2023 medroxyPROGESTERone (DEPO-[place] OVERA) 150 mg/mL injection Indications: Excessive or [...] 01-19-2024 Basophils (Bld) [#/Vol] 10*3/uL Normal <0.11 [facility] Comment on above: Order Comment: Speci men Type: BLOOD SPECIMEN Ordering Facility: External Submitter Address: , , Performed By: #### 5 5454-3 #### [facility] CLIA [id number] [address] [place] [address] [place] Basophils/100 WBC (Bld) 0.2 % Normal [facility] Comment on above: Order Comment: Speci men Type: BLOOD SPECIMEN Ordering Facility: External Submitter Address: , , Performed By: #### 5 5454-3 #### [facility] CLIA [id number] [address] [place] [address] [place] Differential cell count method Nom (Bld) Auto Normal [facility] Comment on above: Order Comment: Speci men Type: BLOOD SPECIMEN Ordering Facility: External Submitter Address: , , Performed By: #### 5 5454-3 #### [facility] CLIA [id number] [address] [place] [address] [place] Eosinophils (Bld) [#/Vol] 0.06 10*3/uL Normal <0.46 [facility] Comment on above: Order Comment: Speci men Type: BLOOD SPECIMEN Ordering Facility: External Submitter Address: , , Performed By: #### 5 5454-3 #### [facility] CLIA [id number] [address] [place] [address] [place] Eosinophils/100 WBC (Bld) 0.6 % Normal [facility] Comment on above: Order Comment: Speci men Type: BLOOD SPECIMEN Ordering Facility: External Submitter Address: , , Performed By: #### 5 5454-3 #### [facility] CLIA [id number] [address] [place] [address] [place] Erythrocyte distribution width (RBC) [Ratio] 13.3 % Normal 11.5-15.0 [facility] Comment on above: Order Comment: Speci men Type: BLOOD SPECIMEN Ordering Facility: External Submitter Address: , , Performed By: #### 5 5454-3 #### [facility] CLIA [id number] [address] [place] [address] [place] Hematocrit (Bld) [Volume fraction] 32.8 % Low 36.0-46.0 [facility] Comment on above: Order Comment: Speci men Type: BLOOD SPECIMEN Ordering Facility: External Submitter Address: , , Performed By: #### 5 5454-3 #### [facility] CLIA [id number] [address] [place] [address] [place] Hemoglobin (Bld) [Mass/Vol] 10.7 g/dL Low 11.5-15.5 [facility] Comment on above: Order Comment: Speci men Type: BLOOD SPECIMEN Ordering Facility: External Submitter Address: , , Performed By: #### 5 5454-3 #### [facility] CLIA [id number] [address] [place] [address] [place] Immature granulocytes (Bld) [#/Vol] 0.05 10*3/uL Normal <0.10 [facility] Comment on above: Order Comment: Speci men Type: BLOOD SPECIMEN Ordering Facility: External Submitter Address: , , Performed By: #### 5 5454-3 #### [facility] CLIA [id number] [address] [place] [address] [place] Immature granulocytes/100 WBC (Bld) 0.5 % Normal [facility] Comment on above: Order Comment: Speci men Type: BLOOD SPECIMEN Ordering Facility: External Submitter Address: , , Performed By: #### 5 5454-3 #### [facility] CLIA [id number] [address] [place] [address] [place] Lymphocytes (Bld) [#/Vol] 1.55 10*3/uL Normal 1.00-4.00 [facility] Comment on above: Order Comment: Speci men Type: BLOOD SPECIMEN Ordering Facility: External Submitter Address: , , Performed By: #### 5 5454-3 #### [facility] CLIA [id number] [address] [place] [address] [place] Lymphocytes/100 WBC (Bld) 15.1 % Normal [facility] Comment on above: Order Comment: Speci men Type: BLOOD SPECIMEN Ordering Facility: External Submitter Address: , , Performed By: #### 5 5454-3 #### [facility] CLIA [id number] [address] [place] [address] [place] MCH (RBC) [Entitic mass] 27.8 pg Normal 26.0-34.0 [facility] Comment on above: Order Comment: Speci men Type: BLOOD SPECIMEN Ordering Facility: External Submitter Address: , , Performed By: #### 5 5454-3 #### [facility] CLIA [id number] [address] [place] [address] [place] MCHC (RBC) [Mass/Vol] 32.6 g/dL Normal 30.5-36.0 [facility] Comment on above: Order Comment: Speci men Type: BLOOD SPECIMEN Ordering Facility: External Submitter Address: , , Performed By: #### 5 5454-3 #### [facility] CLIA [id number] [address] [place] [address] [place] MCV (RBC) [Entitic vol] 85.2 fL Normal 80.0-100.0 [facility] Comment on above: Order Comment: Speci men Type: BLOOD SPECIMEN Ordering Facility: External Submitter Address: , , Performed By: #### 5 5454-3 #### [facility] CLIA [id number] [address] [place] [address] [place] Monocytes (Bld) [#/Vol] 0.77 10*3/uL Normal <0.87 [facility] Comment on above: Order Comment: Speci men Type: BLOOD SPECIMEN Ordering Facility: External Submitter Address: , , Performed By: #### 5 5454-3 #### [facility] CLIA [id number] [address] [place] [address] [place] Monocytes/100 WBC (Bld) 7.5 % Normal [facility] Comment on above: Order Comment: Speci men Type: BLOOD SPECIMEN Ordering Facility: External Submitter Address: , , Performed By: #### 5 5454-3 #### [facility] CLIA [id number] [address] [place] [address] [place] Neutrophils (Bld) [#/Vol] 7.81 10*3/uL High 1.45-7.50 [facility] Comment on above: Order Comment: Speci men Type: BLOOD SPECIMEN Ordering Facility: External Submitter Address: , , Performed By: #### 5 5454-3 #### [facility] CLIA [id number] [address] [place] [address] [place] Neutrophils/100 WBC (Bld) 76.1 % Normal [facility] Comment on above: Order Comment: Speci men Type: BLOOD SPECIMEN Ordering Facility: External Submitter Address: , , Performed By: #### 5 5454-3 #### [facility] CLIA [id number] [address] [place] [address] [place] Nucleated RBC (Bld) [#/Vol] 10*3/uL Normal <0.01 [facility] Comment on above: Order Comment: Speci men Type: BLOOD SPECIMEN Ordering Facility: External Submitter Address: , , Performed By: #### 5 5454-3 #### [facility] CLIA [id number] [facility] [place] [address] [place] Nucleated RBC/100 WBC (Bld) [Ratio] 0.0 /[address] [facility] Comment on above: Order Comment: Speci men Type: BLOOD SPECIMEN Ordering Facility: External Submitter Address: , , Performed By: #### 5 5454-3 #### [facility] CLIA [id number] [address] [place] [address] [place] Platelet mean volume (Bld) [Entitic vol] 11.3 fL Normal 9.0-12.7 [facility] Comment on above: Order Comment: Speci men Type: BLOOD SPECIMEN Ordering Facility: External Submitter Address: , , Performed By: #### 5 5454-3 #### [facility] CLIA [id number] [address] [place] [address] [place] Platelets (Bld) [#/Vol] 172 10*3/uL Normal 150-400 [facility] Comment on above: Order Comment: Speci men Type: BLOOD SPECIMEN Ordering Facility: External Submitter Address: , , Performed By: #### 5 5454-3 #### [facility] CLIA [id number] [address] [place] [address] [place] RBC (Bld) [#/Vol] 3.85 10*6/uL Low 3.90-5.20 [facility] Comment on above: Order Comment: Speci men Type: BLOOD SPECIMEN Ordering Facility: External Submitter Address: , , Performed By: #### 5 5454-3 #### [facility] CLIA [id number] [address] [place] [address] [place] WBC (Bld) [#/Vol] 10.26 10*3/uL Normal 3.70-11.00 [facility] Comment on above: Order Comment: Speci men Type: BLOOD SPECIMEN Ordering Facility: External Submitter Address: , , Performed By: #### 5 5454-3 #### [facility] CLIA [id number] [address] [place] [address] [place] T4 Free SerPl-mCncon 024 Free T4 [Mass/Vol] 0.9 ng/dL Normal 0.9-1.7 [facility] Comment on above: Order Comment: Speci men Type: BLOOD SPECIMEN Ordering Facility: [facility] Karina Address: [address] [place], [place] [address] [place] [address] Performed By: #### 3 024-7, 3016-3 #### [facility] CLIA [id number] [facility] [place] [id number] [place] TSH SerPl-aCncon 01-05-2024 TSH Qn 1.220 m[IU]/L Normal 0.270-4.200 [facility] Comment on above: Order Comment: Speci [...] Thyroid Function tests in . Thyroid, 2019:29:3:412-420. Emanule E, et al. 2017 Guidelines of the [place] Thy[employer] Association for the Diagnosis and Management of Thyroid Disease during and the . Thyroid, 2017:27:3:315-389. Performed By: #### 5 5454-3 #### [facility] IA [id number] [address] [place] [address] [place] T4 Free SerPl-mCncon 024 Free T4 [Mass/Vol] 1.1 ng/dL Normal 0.9-1.7 [facility] Comment on above: Order Comment: Tammy mares Type: BLOOD SPECIMEN Ordering Facility: [facility] Karina Address: [address] [place] [address] Performed By: #### 3 024-7, 3016-3 #### [facility] CLIA [id number] [address] [place] [address] [place] TSH SerPl-aCncon 12-08-2023 TSH Qn 0.607 m[IU]/L Normal 0.270-4.200 [facility] Comment on above: Order Comment: Roycei vishnu Type: BLOOD SPECIMEN Ordering Facility: [facility] Karina Address: [address] [place] [address] Result Comment: If t he patient is , TSH reference range varies by gestational period: First Trimester (weeks 9-12): 0.180-2.990 mIU/L Second Trimester: 0.110-3.980 mIU/L Third Trimester: 0.480-4.710 mIU/L Manuel Grayson et al. A Practical Approach for the Verifications and Determination of Site- and Trimester-Specific Reference Intervals for Thyroid Function tests in . Thyroid, 2019:29:3:412-420. Emanuel Nassar, et al. 2017 Guidelines of the [place] Thyroid Association for the Diagnosis and Management of Thyroid Disease during and the . Thyroid, 2017:27:3:315-389. Performed By: #### 3 024-7, 3016-3 #### [facility] CLIA [id number] [address] [place] [address] [place] CBC W Auto Differential pane l (Bld)on 11-20-2023 Basophils (Bld) [#/Vol] 0.04 10*3/uL Normal <0.11 [facility] Comment on above: Order Comment: Speci men Type: BLOOD SPECIMEN Ordering Facility: [facility] Address: [address] [place] [address] Performed By: #### 5 7021-8 #### [facility] CLIA [id number] [address] [place] [address] Basophils/100 WBC (Bld) 0.6 % Normal [facility] Comment on above: Order Comment: Speci men Type: BLOOD SPECIMEN Ordering Facility: [facility] Address: [address] [place] [address] Performed By: #### 5 7021-8 #### [facility] CLIA [id number] [address] [place] [address] 19763 Differential cell count method Nom (Bld) Auto Normal [facility] Comment on above: Order Comment: Speci men Type: BLOOD SPECIMEN Ordering Facility: [facility] Address: [address] [place] [id number] Performed By: #### 5 7021-8 #### [facility] CLIA [id number] [address] [place] [address]347 Eosinophils (Bld) [#/Vol] 0.05 10*3/uL Normal <0.46 [facility] Comment on above: Order Comment: Speci men Type: BLOOD SPECIMEN Ordering Facility: [facility] Address: [address] [place] [address] Performed By: #### 5 7021-8 #### [facility] CLIA [id number] [address] [place] [address] 10664 Eosinophils/100 WBC (Bld) 0.7 % Normal [facility] Comment on above: Order Comment: Speci men Type: BLOOD SPECIMEN Ordering Facility: [facility] Address: [address] [place] [address] Performed By: #### 5 7021-8 #### [facility] CLIA [id number] [address] [place] [address]405 Erythrocyte distribution width (RBC) [Ratio] 12.9 % Normal 11.5-15.0 [facility] Comment on above: Order Comment: Speci men Type: BLOOD SPECIMEN Ordering Facility: [facility] Address: [address] [place] [id number] Performed By: #### 5 7021-8 #### [facility] CLIA [id number] [address] [place] [address] 21903 Hematocrit (Bld) [Volume fraction] 35.0 % Low 36.0-46.0 [facility] Comment on above: Order Comment: Speci men Type: BLOOD SPECIMEN Ordering Facility: [facility] Address: [address] [place] [id number] Performed By: #### 5 7021-8 #### [facility] CLIA [id number] [address] [place] [address]909 Hemoglobin (Bld) [Mass/Vol] 11.4 g/dL Low 11.5-15.5 [facility] Comment on above: Order Comment: Speci men Type: BLOOD SPECIMEN Ordering Facility: [facility] Address: [address] [place] [address] Performed By: #### 5 7021-8 #### [facility] CLIA [id number] [address] [place] [address] 32658 Immature granulocytes (Bld) [#/Vol] 10*3/uL Normal <0.10 [facility] Comment on above: Order Comment: Speci men Type: BLOOD SPECIMEN Ordering Facility: [facility] Address: [address] [place] [address] Performed By: #### 5 7021-8 #### [facility] CLIA [id number] [address] [place] [address] 97300 Immature granulocytes/100 WBC (Bld) 0.3 % Normal [facility] Comment on above: Order Comment: Speci men Type: BLOOD SPECIMEN [facility] Address: [address] [place] [address] Performed By: #### 5 7021-8 #### [facility] CLIA [id number] [address] [place] [address] 87389 Lymphocytes (Bld) [#/Vol] 1.25 10*3/uL Normal 1.00-4.00 [facility] Comment on above: Order Comment: Speci men Type: BLOOD SPECIMEN Ordering Facility: [facility] Address: [address] [place] [address] Performed By: #### 5 7021-8 #### [facility] CLIA [id number] [address] [place] [address] 30633 Lymphocytes/100 WBC (Bld) 18.3 % Normal [facility] Comment on above: Order Comment: Speci men Type: BLOOD SPECIMEN [facility]ing [facility] Address: [address] [place] [address] Performed By: #### 5 7021-8 #### [facility] CLIA [id number] [address] [place] [address] 45005 MCH (RBC) [Entitic mass] 29.9 pg Normal 26.0-34.0 [facility] Comment on above: Order Comment: Speci men Type: BLOOD SPECIMEN Ordering Facility: [facility] Address: [facility] [address] [place] [id number] Performed By: #### 5 7021-8 #### [facility] CLIA [id number] [address] [place] [address] 19081 MCHC (RBC) [Mass/Vol] 32.6 g/dL Normal 30.5-36.0 [facility] Comment on above: Order Comment: Speci men Type: BLOOD SPECIMEN Ordering Facility: [facility] Address: [facility] [place] [address] Performed By: #### 5 7021-8 #### [facility] CLIA [id number] [address] [place] [address] 90303 MCV (RBC) [Entitic vol] 91.9 fL Normal 80.0-100.0 [facility] Comment on above: Order Comment: Speci men Type: BLOOD SPECIMEN Ordering Facility: [facility] Address: [facility] [address] [place] [id number] Performed By: #### 5 7021-8 #### [facility] CLIA [id number] [address] [place] [address] 02386 Monocytes (Bld) [#/Vol] 0.52 10*3/uL Normal <0.87 [facility] Comment on above: Order Comment: Speci men Type: BLOOD SPECIMEN Ordering Facility: [facility] Address: [facility] [address] [place] [id number] Performed By: #### 5 7021-8 #### [facility] CLIA [id number] [address] [place] [address] 93990 Monocytes/100 WBC (Bld) 7.6 % Normal [facility] Comment on above: Order Comment: Speci men Type: BLOOD SPECIMEN Ordering Facility: [facility] Address: [address] [place] [address] Performed By: #### 5 7021-8 #### [facility] CLIA [id number] [address] [place] [address] Neutrophils (Bld) [#/Vol] 4.94 10*3/uL Normal 1.45-7.50 [facility] Comment on above: Order Comment: Speci men Type: BLOOD SPECIMEN Ordering Facility: [facility] Address: [address] [place] [address] Performed By: #### 5 7021-8 #### [facility] CLIA [id number] [address] [place] [address] 73826 Neutrophils/100 WBC (Bld) 72.5 % Normal [facility] Comment on above: Order Comment: Speci men Type: BLOOD SPECIMEN Ordering Facility: [facility] Address: [address] [place] [address] Performed By: #### 5 7021-8 #### [facility] CLIA [id number] [address] [place] [address] 31836 Nucleated RBC (Bld) [#/Vol] 10*3/uL Normal <0.01 [facility] Comment on above: Order Comment: Speci men Type: BLOOD SPECIMEN Ordering Facility: [facility] Address: [address] [place] [address] Performed By: #### 5 7021-8 #### [facility] CLIA [id number] [address] [place] [address] 11057 Nucleated RBC/100 WBC (Bld) [Ratio] 0.0 /[address] [facility] Comment on above: Order Comment: Speci men Type: BLOOD SPECIMEN Ordering Facility: [facility] Address: [address] [place] [address] Performed By: #### 5 7021-8 #### [facility] CLIA [id number] [address] [place] [address] Platelet mean volume (Bld) [Entitic vol] 11.4 fL Normal 9.0-12.7 [facility] Comment on above: Order Comment: Speci men Type: BLOOD SPECIMEN Ordering Facility: [facility] Address: [facility] [place] [place] [address] Performed By: #### 5 7021-8 #### [facility] CLIA [id number] [address] [place] [address] Platelets (Bld) [#/Vol] 167 10*3/uL Normal 150-400 [facility] Comment on above: Order Comment: Speci men Type: BLOOD SPECIMEN Ordering Facility: [facility] Address: [facility] [place] [address] Performed By: #### 5 7021-8 #### [facility] CLIA [id number] [address] [place] [address] 42418 RBC (Bld) [#/Vol] 3.81 10*6/uL Low 3.90-5.20 [facility] Comment on above: Order Comment: Speci men Type: BLOOD SPECIMEN [facility] Address: [facility] [place] [address] Performed By: #### 5 7021-8 #### [facility] CLIA [id number] [address] [place] [address] 92456 WBC (Bld) [#/Vol] 6.82 10*3/uL Normal 3.70-11.00 [facility] Comment on above: Order Comment: Speci men Type: BLOOD SPECIMEN Ordering Facility: [facility] Address: [facility] [place] [address] Performed By: #### 5 7021-8 #### [facility] CLIA [id number] [address] [place] [address] 88229 GESTATIONAL GLUCOSE SCREEN, 1-HOUR, 50 GRAM, NON-FASTINGon 11-20-2023 Glucose [Mass/Vol] 97 mg/dL Normal 74-134 [facility] Comment on above: Order Comment: Tammy mares Type: BLOOD SPECIMEN Ordering Facility: [facility] Address: [facility] [place] [address] Result Comment: [facility] Congress of Obstetricians and Gynecologists (Alma/Adrián) guidelines state a gestational diabetes mellitus positive screen is made, in women not previously diagnosed with overt diabetes, when the 1 hr plasma glucose level is equal to or above 140 mg/dL. The [facility] [employer] and [facility] [place] recommends a 135 mg/dL cutoff. Performed By: #### G LTGST #### [facility] CLIA [id number] [address] [place] [address] [place] T4 Free SerPl-mCncon 024 Free T4 [Mass/Vol] 1.0 ng/dL Normal 0.9-1.7 [facility] Comment on above: Order Comment: Tammy mares Type: BLOOD SPECIMEN Ordering Facility[facility] Address: [facility] [address] [place] [address] Performed By: #### 3 024-7, 3016-3 #### [facility] CLIA [id number] [address] [place] [address] [place] TSH SerPl-aCncon 10-22-2023 TSH Qn 4.510 m[IU]/L High 0.270-4.200 [facility] Comment on above: Order Comment: Tammy mares Type: BLOOD SPECIMEN Ordering Facility: [facility] Address: [facility] [place] [address] Result Comment: If t he patient is , TSH reference range varies by gestational period: First Trimester (weeks 9-12): 0.180-2.990 mIU/L Second Trimester: 0.110-3.980 mIU/L Third Trimester: 0.480-4.710 mIU/L Manuel Grayson et al. A Practical Approach for the Verifications and Determination of Site- and Trimester-Specific Reference Intervals for Thyroid Function tests in . Thyroid, 2019:29:3:412-420. Emanuel E, et al. 2017 Guidelines of the [place] Thyroid Association for the Diagnosis and Management of Thyroid Disease during and the . Thyroid, 2017:27:3:315-389. Performed By: #### 3 024-7, 3016-3 #### [facility] CLIA [id number] [facility] [address] [place] CBC W Auto Differential pane l (Bld)on 08-08-2023 Basophils (Bld) [#/Vol] 10*3/uL Normal <0.11 [facility] Comment on above: Order Comment: Speci men Type: BLOOD SPECIMEN Ordering Facility: [facility] Address: , , Performed By: #### 5 7021-8 #### [facility] CLIA [id number] [address] [place] [address] 47946 Basophils/100 WBC (Bld) 0.3 % Normal [facility] Comment on above: Order Comment: Speci men Type: BLOOD SPECIMEN Ordering Facility: [facility] Address: , , Performed By: #### 5 7021-8 #### [facility] CLIA [id number] [address] [place] [address] 42680 Differential cell count method Nom (Bld) Auto Normal [facility] Comment on above: Order Comment: Speci vishnu Type: BLOOD SPECIMEN Ordering Facility: [facility] Address: , , Performed By: #### 5 7021-8 #### [facility] CLIA [id number] [address] [place] [address] 67694 Eosinophils (Bld) [#/Vol] 0.06 10*3/uL Normal <0.46 [facility] Comment on above: Order Comment: Roycei vishnu Type: BLOOD SPECIMEN Ordering Facility: [facility] Address: , , Performed By: #### 5 7021-8 #### [facility] CLIA [id number] [address] [place] [address] 07441 Eosinophils/100 WBC (Bld) 0.9 % Normal [facility] Comment on above: Order Comment: Speci men Type: BLOOD SPECIMEN Ordering Facility: [facility] Address: , , Performed By: #### 5 7021-8 #### [facility] CLIA [id number] [address] [place] [address] 61860 Erythrocyte distribution width (RBC) [Ratio] 13.7 % Normal 11.5-15.0 [facility] Comment on above: Order Comment: Speci men Type: BLOOD SPECIMEN Ordering Facility: [facility] Address: , , Performed By: #### 5 7021-8 #### [facility] CLIA [id number] [address] [place] [address] 81718 Hematocrit (Bld) [Volume fraction] 40.1 % Normal 36.0-46.0 [facility] Comment on above: Order Comment: Speci men Type: BLOOD SPECIMEN Ordering Facility: [facility] Address: , , Performed By: #### 5 7021-8 #### [facility] CLIA [id number] [address] [place] [address] 60261 Hemoglobin (Bld) [Mass/Vol] 13.4 g/dL Normal 11.5-15.5 [facility] Comment on above: Order Comment: Speci men Type: BLOOD SPECIMEN Ordering Facility: [facility] Address: , , Performed By: #### 5 7021-8 #### [facility] CLIA [id number] [address] [place] [address] 42170 Immature granulocytes (Bld) [#/Vol] 10*3/uL Normal <0.10 [facility] Comment on above: Order Comment: Speci men Type: BLOOD SPECIMEN Ordering Facility: [facility] Address: , , Performed By: #### 5 7021-8 #### [facility] CLIA [id number] [address] [place] [address] 14747 Immature granulocytes/100 WBC (Bld) 0.3 % Normal [facility] Comment on above: Order Comment: Speci men Type: BLOOD SPECIMEN Ordering Facility: [facility] Address: , , Performed By: #### 5 7021-8 #### [facility] CLIA [id number] [address] [place] [address] 48197 Lymphocytes (Bld) [#/Vol] 1.67 10*3/uL Normal 1.00-4.00 [facility] Comment on above: Order Comment: Speci men Type: BLOOD SPECIMEN Ordering Facility: [facility] Address: , , Performed By: #### 5 7021-8 #### [facility] CLIA [id number] [address] [place] [address] 73922 Lymphocytes/100 WBC (Bld) 24.9 % Normal [facility] Comment on above: Order Comment: Speci men Type: BLOOD SPECIMEN Ordering Facility: [facility] Address: , , Performed By: #### 5 7021-8 #### [facility] CLIA [id number] [address] [place] [address] 08631 MCH (RBC) [Entitic mass] 31.1 pg Normal 26.0-34.0 [facility] Comment on above: Order Comment: Speci men Type: BLOOD SPECIMEN Ordering Facility: [facility] Address: , , Performed By: #### 5 7021-8 #### [facility] CLIA [id number] [address] [place] [address] 73554 MCHC (RBC) [Mass/Vol] 33.4 g/dL Normal 30.5-36.0 [facility] Comment on above: Order Comment: Speci men Type: BLOOD SPECIMEN Ordering Facility: [facility] Address: , , Performed By: #### 5 7021-8 #### [facility] CLIA [id number] [address] [place] [address] 68699 MCV (RBC) [Entitic vol] 93.0 fL Normal 80.0-100.0 [facility] Comment on above: Order Comment: Speci men Type: BLOOD SPECIMEN Ordering Facility: [facility] Address: , , Performed By: #### 5 7021-8 #### [facility] CLIA [id number] [address] [place] [address] 95163 Monocytes (Bld) [#/Vol] 0.50 10*3/uL Normal <0.87 [facility] Comment on above: Order Comment: Speci men Type: BLOOD SPECIMEN Ordering Facility: [facility] Address: , , Performed By: #### 5 7021-8 #### [facility] CLIA [id number] [address] [place] [address] 01863 Monocytes/100 WBC (Bld) 7.5 % Normal [facility] Comment on above: Order Comment: Speci men Type: BLOOD SPECIMEN Ordering Facility: [facility] Address: , , Performed By: #### 5 7021-8 #### [facility] CLIA [id number] [address] [place] [address] 60963 Neutrophils (Bld) [#/Vol] 4.44 10*3/uL Normal 1.45-7.50 [facility] Comment on above: Order Comment: Speci men Type: BLOOD SPECIMEN Ordering Facility: [facility] Address: , , Performed By: #### 5 7021-8 #### [facility] CLIA [id number] [address] [place] [address] 39876 Neutrophils/100 WBC (Bld) 66.1 % Normal [facility] Comment on above: Order Comment: Speci men Type: BLOOD SPECIMEN Ordering Facility: [facility] Address: , , Performed By: #### 5 7021-8 #### [facility] CLIA [id number] [address] [place] [address] 30621 Nucleated RBC (Bld) [#/Vol] 10*3/uL Normal <0.01 [facility] Comment on above: Order Comment: Speci men Type: BLOOD SPECIMEN Ordering Facility: External Submitter Address: , , Performed By: #### 5 7021-8 #### [facility] CLIA [id number] [address] [place] [address] 12199 Nucleated RBC/100 WBC (Bld) [Ratio] 0.0 /[address] [facility] Comment on above: Order Comment: Speci men Type: BLOOD SPECIMEN Ordering Facility: External Submitter Address: , , Performed By: #### 5 7021-8 #### [facility] CLIA [id number] [address] [place] [address] 54230 Platelet mean volume (Bld) [Entitic vol] 12.1 fL Normal 9.0-12.7 [facility] Comment on above: Order Comment: Speci men Type: BLOOD SPECIMEN Ordering Facility: [facility] Address: , , Performed By: #### 5 7021-8 #### [facility] CLIA [id number] [address] [place] [address] 15079 Platelets (Bld) [#/Vol] 148 10*3/uL Low 150-400 [facility] Comment on above: Order Comment: Speci men Type: BLOOD SPECIMEN Ordering Facility: [facility] Address: , , Performed By: #### 5 7021-8 #### [facility] CLIA [id number] [address] [place] [address] 93245 RBC (Bld) [#/Vol] 4.31 10*6/uL Normal 3.90-5.20 [facility] Comment on above: Order Comment: Speci men Type: BLOOD SPECIMEN Ordering Facility: [facility]mitter Address: , , Performed By: #### 5 7021-8 #### [facility] CLIA [id number] [address] [place] [address] 97017 WBC (Bld) [#/Vol] 6.71 10*3/uL Normal 3.70-11.00 [facility] Comment on above: Order Comment: Speci men Type: BLOOD SPECIMEN Ordering Facility: [facility] Address: , , Performed By: #### 5 7021-8 #### [facility] CLIA [id number] [address] [place] [address] 47436 HBV surface Ag Ser Qlon 04- HBV surface Ag Ql (S) Negative Normal Negative [facility] Comment on above: Order Comment: Speci men Type: BLOOD SPECIMEN Ordering Facility: External Submitter Address: , , Performed By: #### 5 5454-3 #### [facility] IA [id number] [address] [place] [address] OF [place] HCV Ab Ser Qlon 08-08-2023 HCV Ab Ql (S) Negative Normal Negative [facility] Comment on above: Order Comment: Speci men Type: BLOOD SPECIMEN Ordering Facility: [facility] Address: , , Result Comment: The result suggests no evidence of active infection with Hepatitis C virus. Should recent infection be suspected, repeat testing may be considered 4-6 weeks after this draw. Performed By: #### 1 6128-1 #### [facility] IA [id number] [address] [place] [address] OF [place] HIV 1+2 Ab IA Qlon HIV 1 and 2 Ab IA.rapid Nom (S/P/Bld) Normal [facility] Comment on above: Order Comment: Speci men Type: BLOOD SPECIMEN Ordering Facility: External Submitter Address: , , Result Comment: Test not indicated. Performed By: #### 5 5454-3 #### [facility] IA [id number] [address] [place] [address] OF [facility] HIV 1+2 Ab+HIV1 p24 Ag IA Ql Non-Reactive Normal Nonreactive [facility] Comment on above: Order Comment: Speci men Type: BLOOD SPECIMEN Ordering Facility: External Submitter Address: , , Performed By: #### 5 5454-3 #### [facility] IA [id number] [address] [place] [address] OF [place] HIV immunoassay testing algorithm interpretation (S/P/Bld) [Interp] Normal [facility] Comment on above: Order Comment: Speci vishnu Type: BLOOD SPECIMEN Ordering Facility: External Submitter Address: , , Result Comment: No e vidence of HIV-1 or HIV-2 infection. Should recent infection be suspected, repeat testing may be considered 2-3 weeks after this draw. [place] Rev. Code 3701.243(E): This information has been [...] By: #### 5 5454-3 #### [facility] IA [id number] [address] [place] [address] OF [place] HbA1c (Bld)on 08-08-2023 Average glucose Estimated from glycated hemoglobin (Bld) [Mass/Vol] 105 mg/dL Normal [facility] Comment on above: Order Comment: Tammy mares Type: BLOOD SPECIMEN Ordering Facility: External Submitter Address: , , Result Comment: eAG: (Estimated average glucose) is a calculated value from HgbA1c and is underwriting service representative of the average blood glucose level in the last 2-3 month period. Performed By: #### 5 5454-3 #### [facility] IA [id number] [address] [place] [address] [place] HbA1c (Bld) [Mass fraction] 5.3 % Normal 4.3-5.6 [facility] Comment on above: Order Comment: Tammy [...] By: #### 5 5454-3 #### [facility] IA [id number] [address] [place] [address] [place] RPR Ser Qlon 08-08-2023 Reagin Ab RPR Ql (S) Non-Reactive Normal Nonreactive [facility] Comment on above: Order Comment: Tammy mares Type: BLOOD SPECIMEN Ordering Facility: [facility] Address: [address] [place] [address] [address] [place] [address] Result Comment: Rapi d plasma reagin (RPR) test detects non-treponemal antibodies. RPR may be reactive in a variety of infectious and non-infectious conditions. Correlation with clinical picture and with treponemal antibody results is required for final interpretation. Performed By: #### 3 024-7, 3016-3 #### [facility] CLIA [id number] [address] [place] [address] [place] RUBELLA IGG ANTIBODYon 08-07 RUBELLA IGG AB, QUAL Positive Normal Positive [facility] Comment on above: Order Comment: Speci men Type: BLOOD SPECIMEN Ordering Facility: [facility] [place] Address: [address] [place], [place] [address] [place] [address] Result Comment: The result suggests recent or past exposure to Rubella virus or history of Rubella vaccination. Positive result may also be seen due to presence of passively-transferred antibodies. Please correlate with patient's history. Performed By: #### 3 024-7, 3016-3 #### [facility] CLIA [id number] [address] [place] [address] [place] TYPE + SCREENon 08-08-[address] [facility] Comment on above: Order Comment: Speci men Type: BLOOD SPECIMEN Ordering Facility: External Submitter Address: , , Performed By: #### T SCR #### [facility] CLIA [id number] [facility] [place] [address] [place] HISTORICAL AB SCR STATUS Negative Normal [facility] Comment on above: Order Comment: Speci men Type: BLOOD SPECIMEN Ordering Facility: External Submitter Address: , , Performed By: #### T SCR #### [facility] CLIA [id number] [facility] [place] [address] [place] Rh Nom (Bld) Positive Normal [facility] Comment on above: Order Comment: Speci men Type: BLOOD SPECIMEN Ordering Facility: External Submitter Address: , , Performed By: #### T SCR #### [facility] CLIA [id number] [address] TYPE AND SCREEN EXPIRATION 08/11/2023 23:[address] [facility] Comment on above: Order Comment: Specbertha mares Type: BLOOD SPECIMEN Ordering Facility: External Submitter Address: , , Performed By: #### T SCR #### [facility] CLIA [id number] [address] B-HCG SerPl-aCncon 4 HCG.beta subunit Qn m[IU]/mL Normal <5.0 [facility] Comment on above: Order Comment: Speci men Type: BLOOD SPECIMEN Ordering Facility: External Submitter Address: , , Result Comment: Dianne logan Performed By: #### 5 5454-3 #### [facility] CLIA [id number] [address] CNPBritt 05-16-2023 CNPN Telephone (HEMASA) JESSEE ALMODOVAR ([id number]) 1990 [facility] Date Time Provider Department 05/16/23 RONI DUMAS During your visit today, we recorded the following information about you: Allergies As of Date: 05/16/2023 (No Known Allergies) Date Reviewed: 04/11/2023 Reviewed by: Macy Jones APRN.OUTREACH LIBRARIAN - Fully Assessed Reason for Visit: Lab Orders [1688] Primary Visit Diagnosis:Possible , not confirmed [Z32.00] Order(s):HCG QUANTITATIVE [SQHCGQT] Order #: [id number] FUTURE Prescriptions as of 05/16/2023 - doxycycline [...] Status:Closed by RONI DUMAS on 05/16/[address] [facility] TOX SCREEN ROUT URon 024 Amphetamines Confirm (U) [Mass/Vol] Negative Normal Negative [facility] Comment on above: Order Comment: Speci men Type: BLOOD SPECIMEN Ordering Facility: [facility] Address: [facility] [address] [place] [address] Result Comment: Cuto ff threshold at 1000 ng/mL. Performed By: #### 3 024-7, 3016-3 #### [facility] CLIA [id number] [address] [place] [address] [place] BARBITURATES, URINE Negative Normal Negative [facility] Comment on above: Order Comment: Speci men Type: BLOOD SPECIMEN Ordering Facility: [facility] Address: [facility] [address] [place] [address] Result Comment: Cuto ff threshold at 200 ng/mL. Performed By: #### 3 024-7, 3016-3 #### [facility] CLIA [id number] [address] [place] [address] [place] BENZODIAZEPINES, UR Negative Normal Negative [facility] Comment on above: Order Comment: Speci men Type: BLOOD SPECIMEN Ordering Facility: [facility] Address: [facility] [address] [place] [address] Result Comment: Cuto ff threshold at 200 ng/mL. Performed By: #### 3 024-7, 3016-3 #### [facility] CLIA [id number] [address] [place] [address] [place] Cannabinoids Screen Ql (U) Negative Normal Negative [facility] Comment on above: Order Comment: Speci men Type: BLOOD SPECIMEN Ordering Facility: [facility] Address: [facility] [address] [place] [address] Result Comment: Cuto ff threshold at 50 ng/mL. Performed By: #### 3 024-7, 3015-3 #### [facility] CLIA [id number] [address] [place] [address] [place] Cocaine Ql (U) Negative Normal Negative [facility] Comment on above: Order Comment: Speci men Type: BLOOD SPECIMEN Ordering Facility: [facility] Address: [facility] [address] [place] [address] Result Comment: Cuto ff threshold at 300 ng/mL. Performed By: #### 3 024-7, 3015-3 #### [facility] CLIA [id number] [address] [place], [place] [address] [place] Ethanol (U) [Mass/Vol] <11 Normal <11 [facility] Comment on above: Order Comment: Speci men Type: BLOOD SPECIMEN Ordering Facility: [facility] [place] Address: [facility] [address] [place] [address] Performed By: #### 3 024-7, 3 #### [facility] IA [id number] [address] [place] [address] [place] Opiates Screen Ql (U) Negative Normal Negative [facility] Comment on above: Order Comment: Speci men Type: BLOOD SPECIMEN Ordering Facility: [facility] Address: [facility] [address] [place] [address] Result Comment: Cuto ff threshold at 300 ng/mL. Performed By: #### 3 024-7, 3015-3 #### [facility] CLIA [id number] [address] [address] [place] oxyCODONE cutoff Screen (U) [Mass/Vol] Negative Normal Negative [facility] Comment on above: Order Comment: Speci men Type: BLOOD SPECIMEN Ordering Facility: [facility] Address: [facility] [address] [place] [address] Result Comment: Cuto ff threshold at 100 ng/mL. Performed By: #### 3 024-7, 3016-3 #### [facility] CLIA [id number] [facility] [place] [address] [place] Phencyclidine Ql (U) Negative Normal Negative [facility] Comment on above: Order Comment: Speci men Type: BLOOD SPECIMEN Ordering Facility: [facility] Address: [address] [place] [address] , [place] [address] Result Comment: Cuto ff threshold at 25 ng/mL. Performed By: #### 3 024-7, 3016-3 #### [facility] CLIA [id number] [address] [place] [address] [place] B-HCG SerPl-aCncon 4 HCG.beta subunit Qn m[IU]/mL Normal <5.0 [facility] Comment on above: Order Comment: Speci men Type: BLOOD SPECIMEN Ordering Facility: External Submitter Address: , , Result Comment: Dianne logan Performed By: #### 5 5454-3 #### [facility] CLIA [id number] [facility] [place] [address] [place] SAGRARIOOVernie 02-25-2023 CNOV Office Visit (ORTHMN ) JESSEE ALMODOVAR ([id number]) 1990 [facility] Date Time Provider Department 02/25/23 1:00 PM ROSAS MCKINNEY ORTHVERONIKA During your visit today, we recorded the [...] with a (more content not included)... Normal [facility] XR HIP 3V PELV+ AP/LAT RTon [...] any questions regarding this interpretation, please call [phone]. If you are unable to reach us at the number above, please feel free to contact [facility] at [phone]. [id number] Normal [facility] XR Pelvis and Hip - right [...] any questions regarding this interpretation, please call [phone]. If you are unable to reach us at the number above, please feel free to contact [facility] eRadiology at [phone]. DIVISION OF RADIOLOGY * * *Final Report* [...] hip are unremarkable. DIVISION OF RADIOLOGY Provider, [facility] - 02/20/2023 * * *Final [...] any questions regarding this interpretation, please call [phone]. If you are unable to reach us at the number above, please feel free to contact [facility] at [phone]. [facility] Radiology Study observation (narrative) [facility] XR Pelvis and Hip - right AP and Lateral frogOrdered By: Ccf Provider on 02-20-2023 [facility] CNPNon 02-17-2023 CNPN Telephone (HEMASA) JESSEE ALMODOVAR ([id number]) 1990 [address] [facility] [facility] Date Time Provider Department 02/17/23 RONI DUMAS During your visit today, we recorded the following information about you: Roni Dumas MD 02/17/2023 8:20 AM Signed Hi Wilbert, My MA Karyna is having quite a [...] Date Reviewed: 01/20/2023 Reviewed by: Macy Jones APRN.OUTREACH LIBRARIAN - Fully Assessed 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 CBC W Auto Differential pane l (Bld)on 11-15-2022 Basophils (Bld) [#/Vol] 0.04 10*3/uL <0.11 k/uL [facility] Basophils/100 WBC (Bld) 0.8 % [facility] Differential cell count method Nom (Bld) Auto [facility] Eosinophils (Bld) [#/Vol] 0.11 10*3/uL <0.46 k/uL [facility] Eosinophils/100 WBC (Bld) 2.1 % [facility] Erythrocyte distribution width (RBC) [Ratio] 13.7 % 11.5 - 15.0 % [facility] Hematocrit (Bld) [Volume fraction] 46.7 % High 36.0 - 46.0 % [facility] Hemoglobin (Bld) [Mass/Vol] 15.6 g/dL High 11.5 - 15.5 g/dL [facility] Immature granulocytes (Bld) [#/Vol] <0.10 k/uL [facility] Immature granulocytes/100 WBC (Bld) 0.2 % [facility] Lymphocytes (Bld) [#/Vol] 1.77 10*3/uL 1.00 - 4.00 k/uL [facility] Lymphocytes/100 WBC (Bld) 33.7 % [facility] MCH (RBC) [Entitic mass] 31.8 pg 26.0 - 34.0 pg [facility] MCHC (RBC) [Mass/Vol] 33.4 g/dL 30.5 - 36.0 g/dL [facility] MCV (RBC) [Entitic vol] 95.3 fL 80.0 - 100.0 fL [facility] Monocytes (Bld) [#/Vol] 0.64 10*3/uL <0.87 k/uL [facility] Monocytes/100 WBC (Bld) 12.2 % [facility] Neutrophils (Bld) [#/Vol] 2.68 10*3/uL 1.45 - 7.50 k/uL [facility] Neutrophils/100 WBC (Bld) 51.0 % [facility] Nucleated RBC (Bld) [#/Vol] <0.01 k/uL [facility] Nucleated RBC/100 WBC (Bld) [Ratio] 0.0 /100 WBC [facility] Platelet mean volume (Bld) [Entitic vol] 11.3 fL 9.0 - 12.7 fL [facility] Platelets (Bld) [#/Vol] 154 10*3/uL 150 - 400 k/uL [facility] RBC (Bld) [#/Vol] 4.90 10*6/uL 3.90 - 5.2 0 m/uL [facility] WBC (Bld) [#/Vol] 5.25 10*3/uL 3.70 - 11. 00 k/uL [facility] CBC W Auto Differential pane l (Bld)on 08-09-2022 Basophils (Bld) [#/Vol] 0.03 10*3/uL <0.11 k/uL [facility] Basophils/100 WBC (Bld) 0.6 % [facility] Differential cell count method Nom (Bld) Auto [facility] Eosinophils (Bld) [#/Vol] 0.05 10*3/uL <0.46 k/uL [facility] Eosinophils/100 WBC (Bld) 0.9 % [facility] Erythrocyte distribution width (RBC) [Ratio] 13.6 % 11.5 - 15.0 % [facility] Hematocrit (Bld) [Volume fraction] 42.0 % 36.0 - 46.0 % [facility] Hemoglobin (Bld) [Mass/Vol] 13.5 g/dL 11.5 - 15.5 g/dL [facility] Immature granulocytes (Bld) [#/Vol] <0.10 k/uL [facility] Immature granulocytes/100 WBC (Bld) 0.4 % [facility] Lymphocytes (Bld) [#/Vol] 1.57 10*3/uL 1.00 - 4.00 k/uL [facility] Lymphocytes/100 WBC (Bld) 29.0 % [facility] MCH (RBC) [Entitic mass] 30.5 pg 26.0 - 34.0 pg [facility] MCHC (RBC) [Mass/Vol] 32.1 g/dL 30.5 - 36.0 g/dL [facility] MCV (RBC) [Entitic vol] 94.8 fL 80.0 - 100.0 fL [facility] Monocytes (Bld) [#/Vol] 0.47 10*3/uL <0.87 k/uL [facility] Monocytes/100 WBC (Bld) 8.7 % [facility] Neutrophils (Bld) [#/Vol] 3.27 10*3/uL 1.45 - 7.50 k/uL [facility] Neutrophils/100 WBC (Bld) 60.4 % [facility] Nucleated RBC (Bld) [#/Vol] <0.01 k/uL [facility] Nucleated RBC/100 WBC (Bld) [Ratio] 0.0 /100 WBC [facility] Platelet mean volume (Bld) [Entitic vol] 11.1 fL 9.0 - 12.7 fL [facility] Platelets (Bld) [#/Vol] 145 10*3/uL Low 150 - 400 k/uL [facility] RBC (Bld) [#/Vol] 4.43 10*6/uL 3.90 - 5.2 0 m/uL [facility] WBC (Bld) [#/Vol] 5.41 10*3/uL 3.70 - 11. 00 k/uL [facility] XR Pelvis and Hip - [...] any questions regarding this interpretation, please call [phone]. If you are unable to reach us at the number above, please feel free to contact [facility]iology at [phone]. DIVISION OF RADIOLOGY * * *Final Report* [...] the interval. DIVISION OF RADIOLOGY Provider, Tom Salinas [facility] - 08/01/2022 * * *Final Report* * [...] any questions regarding this interpretation, please call [phone]. If you are unable to reach us at the number above, please feel free to contact [facility] at [phone]. [facility] Radiology Study observation (narrative) [facility] XR Pelvis and Hip - right AP and Lateral frogOrdered By: Ccf Provider on 08-01-2022 [facility] Ambulatory Visit Summaryon 0 05-26-2022 [...] Up with CHELSEA KRAUS DO When: Where: [facility] [address] [place] [phone]- Medications What How Much When Why Instructions New amoxicillin (amoxicillin 500 mg Cap) 1 Capsules By Mouth Every 12 hours Strep pharyngitis Duration: 10 Days Pickup at [facility] Unchanged biotin Contact prescribing [...] physician if questions or concerns Pharmacy Information [facility]: [address] [place], [place] [id number] [phone] Allergies No Known Allergies Problems Ongoing - [...] these instructions at home: Medicines ? Take edtl-efk-swxmsjp and prescription medicines only as told by [...] cup (more content not included)... 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 No bmsa-snw-tezwirk medications today. Review of Systems PHQ Score [...] day(s), # 20 cap(s), Refills(s) 0, Pharmacy: [facility] 1985, 172, cm, 05/26/22 9:34:00 [...] Acute pharyngitis, unspecified) Ordered: Rapid Strep POC 49064 Follow-up With When Contact Information CHELSEA KRAUS DO [facility] [address] [place] [phone]- Additional Instructions: Patient Education Strep Throat, Adult, Ithr-xd-Mjjb BMI for Adults Problem List/Past Medical History [...] Strep POC Result: Positive (05/26/22 09:56:00) Normal [facility] Comment on above: Result Comment: Elec tronically [...] these instructions at home: Medicines ? Take vjam-dsp-artutrs and prescription medicines only as told by [...] 09/23/2008 Document Revised: 06/25/2019 Document Reviewed: 06/25/2019 [employer] Patient Education ? 2019 [employer]. Nutrition BMI for Adults Body mass index (BMI) is a number that is calculated from a person's weight and height. BMI may help to estimate how much of a person's weight is composed of fat. BMI can help identify those who may be (more content not included)... Normal [facility] Coding Summary.on 02-26-2022 Coding Summary. [id number] Gh0 bWw+PGhlYWQ+SK2DUMLeK10 ouCHwlQ0AR1mSNN3UCFPLQA NZOI6IGE7nvOE9LIweD8Yyj iAv TdyuoCMsZM48BVh7YHH8kNw bMNculV1rjTSiO5x1QwHtVQ 26qK79KQeoBPNpRaU8PhAtv jsgbWFy Y8hbQwQleXZsDjj+PHRhYmx lIHdpZHRoPScxMDAlJyBzdH uoDR9tTd1pVZLzTGHsjDauk HNlOiBj o7pkPWUbGKrpOW9uxJsjQ0C kgGZ9RHHmv6f4Gg27pQR+PH PoSTP1fSqaMDycu156BhEbb 9fjYSH7 lYYsYUoqKJL2O35kf3U2HLR zPZGgUWO2dXP8wU4rcEuxfw gdI3ZceXVkOpK0HMU3qWXfb T7qwCui mhjciA7eFqf+Q40NRJ8BTEQ IGG2FFgj6R9FcJiiuqXY+PC 38DENrJP92pTWxnIVux3ynr Yd7AdXs SLJfRBV2pRixPMsay2YyPQF uZ24icYOds7K4JXEghSukkW PuQpQnzAS2dK3uEVuflegis 2hvdzsn Ieqnv3jgtc38uE58B28kWQs qCCKxXQF2DCAyCPYewGssfe 3fuV6pYl9+EYfqi0kdq3mzv Sx3JmZg VVWgcmBelCtrEWK3b1AkEx6 1J8EfwGnfm0LbZlg8sh18bO Rmc1F9dLI6VWzfQAFiuB4aA WxlZnQ6 TOXlHsRwgW88kPCaQVqtBr5 hsEdwyQbhFH2cLNOypyobTF RgpJ5dMSZxmXDhjGtzLW6aI TBpbjtm x256LtVzUQR0HBKosDJcS7K inZ4nYpXmHXWwWLKxE1LqnI ItOYjjS274LDakKeW8JBHyz wJhS5Ow JUXsbFtkJqO6e6E8Fb9Uv0X jieipSBR8UYpqPDJyWpP3Uf IaZiU1I9MrBbt7IJFibQsnN M0jA9Lu LJOjwcxejzcpjKL4QUGgJLI iwZ64qSNvYKenSl6pa3B8l2 56CTPsPHOrrJ64Xn9bvNggM TBwdCBU pK6txjxim0apfahoOySrMHG tKRm4BYr5FCNsfIwsHoTrMH K1SwJ0VTG2vVVjhO7jrLssz vzadO1s Oyc+N77kpC9lVJY3LYS5sbi lNJCovaEwTT96UJ63G1DnTi wvdGFibGU+PGRpdiBzdHlsZ E0oIpNj w0zlb0RmLSuyI8TxZXWcBYe tWoe5DRGiCBF6wRU6cK9tEQ CfBJwgn9X6nXG0G0KzhhHeu p7zv0ip NJVmJApcL35upBShe9M0EFJ olDC8VYLqwDsjCfStoJ53Hk c+VLTcxGana0GiClegw9axj 8cawZp3 YrXjDJYrcyDidXkhNII5k5W qOe45C62jSQwsVRAwUOLhCJ WvGJLzfPqfob4uoU9cSe1+P GNvbCB3 zDH9bS6wVSNrTnZ1VOosM31 1SzQgiPLcKcwvb3nmh3eiaN d7GgPtQXMsunThgJpoMKC7q 5KzLd39 X61zFSzbNXCyNZFjXJAvABH glSdamc3neX4gFj4+PC9jb2 guvc24bB02nBL+UDKpBHU6q WxlPSdw OMDugL7mMTcbKvZ5AGPzMwZ sjP64kYVtLRepXq8ulWlbpO prFW5tLQOfrpmry460AfBkv 2xkIDEw wUJjHAfwOYP7R98xx4M2HXN wNZYjNRK2jQC7zY9zdCzgqv ogbGVmdDsgdmVydGljYWwtY NejU040 IHRvcDsnPlBhdGllbnQgTmF bHEk4T4WqOjf2UJOieZbcBL 6ywXIsZNdvUn4ryBmluJcdC C4cLEUv intqy280KoQxi9hzJSTtlJP xTIxrEKA5O30zi1X4SCVmZL BoRRC5bZA5uJ6ttKeocxcij GVmdDsg jjKggWqdSBcqRYqoN300ZGL ynEftMhCigsHeYYFazPN7CX 05LN51oOAef9S8kJP0J6ItD GRpbmct iavzsXW2NPTpOMXaoU18Ql5 ypKjsQe2hBJTpBPT7ONDesZ TvH1PvzJ9oQfMuOTTgCGUoT 3RleHQt ONuwN255NGbbRoA7FFMqlrM eK9UzLOFowTxtJoT7q8N3Zw 4RJ8E3TG86EP30nAFuc0F7b HT3T8Hq BSFaxcbltlkurQV5URLmLCX ttN81Ys8hfQjzRm5fQJZpYT F5OIRskAJeV8BqxM8fHoUeZ DAwMDAw E2AgjYExDZsmT617AAuoNxF 1QWCwftHkH0YbZEQqnDmzCz W2c3B1Cc0VDRx2ZP19SA16g INdh3E0 nUZ3C9JeNSAspzsoczcluBP 2AZIgDKXztU25Bt0ysGupFh 1yICGjIFR6BPWcrHXuE8Wka Y0gXoXf NXYvAIKcX7KmxXCwZTchX42 5ZJhkWcM0IMHjzfVkE4HjYW DdkUewRqD2b7Q3Jk0RUZHwG A69DCU9 eVE9MQ57GN68K4YmFpwmeWY ibGU+PHRhYmxlIHdpZHRoPS qmKBNmAvAcpXnaSO8lGo8sJ GVyLWNv aEvjdBRcNbNov8iaZSLoYRp oDZ0wcPxlT8TjyBY7ABAux2 s1Sc43J54wE7RwmZU+PGNvb NO5uPE9 pR0qHgHbBdI4EFbtN269UaX asWXsOthza4qko0qgaNq4Yk L2AUEyydRhcRffDYK9m0LyB s61H07c IHdpZHRoPSIxNSUiIHZhbGl nrw2fgM1hGg6+YXBqyPG3lO C4iD8tCbQhEeS5HEfcT716O nRvcCIv Kpgyz3gks7atcCz1UkTaKED tqmKqrZihAKY2w6QoVt57U3 HumEmgd8VdNzz4at50oAZmu 4M7rMU9 E7TzLJLynmhyjUIwyVtiBE5 fBLIwvinsLXVgqG5uQBLmV0 f3UlTeTbH4MTtaX0LjixU3K DEwcHQg DGmmSYK3L29dz7L3SKUwKIH nGGG0aEV0mV6pwRqshrgrpL VmdDsgdmVydGljYWwtYWxpZ 246IHRv kXhuCNIbuI4yKQCdeMUxnIi mEG3nNFWsockbYngALLcBJF eSTxzrZFDLDZ25A3NfKpy0D CBzdHls UH7rvFKbKRbrLf3itHebdZj dLT2wLGVkdvyuHGUbtU3gMW YeuPNedZasVV2zZAXdcznrw 250OiAx DBR7DMYawQEqL3SsqY7jDqU oIMUiLTMlP0IzrXXsMKfoZ1 97VBskIjL7CGMcdzLbC0KmD WFsaWdu LyX6i7R4Lc8vFG9tBV4yLDg eWM60YD34aKNnu6H9uUL2M8 QmMLAnnczpqwzfgED2XDEuO DUwaW47 rSAzBVroZq2rw4Q6b790VTA tCIHqxY41Ma3gdMehDSAppI TFmL0flfpbw4wtoqobFdQaS DAwMDt0 UAo8SNVazHzwIxZhNLF9MeM 3JPY9xZCgaW3zdGdkdlrnpZ 9wOyc+XtLxKRMjrrO7S8IiU yt0SBGv bGfzQL2fyNJtDHnmXq0rnBw jiLpgNO2hQNFaphglYUNeqS 3nWMWgvDZdhFpmJT7kYEPfc cokj804 YbPwENA9ZEYhwFZoB4TwgE5 gYiXaFYGwXQOkR3VnkJZrAO itE537XTigFkK4WGNcbsEdB 2FsLWFs uOtbIzU3q1Y9Ub2SVH1gmDM 4W7CdFoj5XZAbbAfrNF9yyB NqMUyoJu4nkDzvjPyyWX3gE TBpbjtw QTIjqJ8bOREkeFMviMnwLP8 sDHIclvcox031UyAnHKS7IW HcdYWtE2DzpY6fDgXtELZjZ GOfT5Rf uKUvEAehU277HSfbDzY9DJG gjoTjP9TiRTDraOkkYkP9j3 L0Vv2InSXmM4YnT0g2R9GtZ jwvdHI+ GV29FNQaRD32rNEfrNLkp5u lnDf2IkUjOIXzNBV3aHjhVM oqg2QfHCEyJ15exOEgw8J3T GNvbGxh aRQaVgEekLA4tN1oGBvldrj lq3iicgxcZcueq4atov98qN 24U18oZBvcNEMoXFRoYVExZ HZhbGln va3aoR5kEg4+NVZokXL4lKY 3pF1gTsPsQnB2OMjkU554Rb YyzSNiMprrf9vju9kliIc6X jIwJSIg rsSqbDuuXHE7k8ZqId15Z67 sIHdpZHRoPSIyMCUiIHZhbG prja6jhJ2bXh8+BD8np0hsm f62mF96 dHI+RXQnODD9lQwjICezUBB jbU3iQBioKrP2ODSoJxKaxL 26uDBkZDseNa6baGyhxWjtK Z1uOQSn zqkkv002GmRpa0lvDPFbgHC mOMkyKXR6H90uc9I8QANcOW SrUXF0rWQ0iT1ngTsqxredv GVmdDsg ykPhkNceAJwgSVfqZ833UCW zhMhuQjHceEJdN6jphwFRXU 1lOjwvdGQ+WPUsCAB2tJckX SdwYWRk yT4zGJZcH9e2TeYzTcK3TEb pW5NtruO0TXNijOHsWBEoaF DZjZ8rhqagn9hutvkzPaMqY DAwMDt0 SIa9ENLwgSglDyYwQRQ4VtY 2LTD0jMOuxA0chZlmisbrcG 9wOyc+RklOOjwvdGQ+PHRkI BZ1nOca FFmxNLYwpA8vIMEaO3b1SoS qRmK7EWrnJ4MvpoP5MAGnoU UrITRhkFFCkA5jgnqdg0wlu jogIzAw BOPuUHl8NIm3PKXgtEhrRmH oJRM3RzV4KKO8gGKfbY0imH qbaetakT8eDea+TVJOOjwvd GQ+PHRk TUD1fEukWHmkGVGqtP1rLES eS6x9VfDsJeG5WVobO6Jkco M5LDVzvIDoJFQhvKLWuC8ow wucd7bs cqidAvWaRMCsMSy4DDz5BGY asJsnShOoDSF0IuU5FDI9fU HuuV1noBcdgxmwmK2bDfp+U RE5XIH2 BY54NN23G6NyAqrzgSKhlXS +PHRhYmxlIHdpZHRoPScxMD MdYjTnuHndNG1fWg8zKXQkV WNvbGxh cHNl (more content not included)... Normal [facility] Discharge Instructionson Discharge Instructions [id number] CD:127 Normal [facility] ED Clinical Summaryon 2021 ED Clinical Summary (Inserted Image. Kelsi ble to display) [place] [id number] ED Clinical Summary Person Information Name: JESSEE ALMODOVAR/[employer] [facility] Age: 32 Years : 1990 Sex: Female Language: Estonian PCP: Marital Status: Phone: [phone] Visit Id: Visit Reason: Foot pain-swelling; HURT [...] 11:07:01 02/23/2022 11:07:01 02/23/2022 11:07:01 ADDRESS: [place] [id number] PHYS DOC NOTES: MEDICAL INFORMATION: Prescriptions Given: PATIENT EDUCATION INFORMATION: Instructions: Foot Sprain; How to Use Cold Therapy, Qeas-kx-Wwtr; Elastic Bandage and RICE Therapy Follow up: With: Address: When: [employer], [address] [place] [address] [facility] In 3 days 02/26/2022 Comments: Follow-up with your primary care provider in 3 to 5 days. If symptoms worsen, do not improve, or new symptoms arise please report back to emergency department for further evaluation. DIAGNOSIS: Sprain of left foot Normal [facility] ED Note-Physicianon 02-24-20 ED Note-Physician Basic Information [...] Information CHELSEA KRAUS In 3 days 02/26/2022 [facility] [employer] [address] [place] [address]- Business (1) Additional Instructions: Follow-up with your primary care provider in 3 to 5 days. If symptoms worsen, do not improve, or new symptoms arise please report back to emergency department for further evaluation. Patient Education Foot Sprain How to Use Cold Therapy, Mggv-uc-Zmmk Elastic Bandage and RICE Therapy Attestation Patient seen and evaluated by the physician medical assistant internal medicine. Attending physician was present in the emergency department and supervised care. This visit was performed by both the physician and an APC. I performed all aspects of the MDM as documented. This report was transcribed using voice recognition software. Every effort was made to ensure accuracy, however, inadvertently computerized cable mock up assembler mistakes may be present. Appropriate healthcare PPE [...] medications Ho (more content not included)... Normal [facility] Comment on above: Result Comment: Elec tronically [...] This may take several hours. ? Take bqcb-lua-trysdqe and prescription medicines only as told by [...] is no (more content not included)... Normal [facility] ED Patient Summaryon 022 ED Patient Summary (Inserted Image. Kelsi ble to display) [place] [id number] Patient Discharge Instructions Person Information Name: JESSEE ALMODOVAR Age: 32 Years Arrival Date: 02/23/2022 09:05:13 Discharge Diagnosis: Sprain of left foot Primary Care Physician: Provider Information Primary Provider: Chayo Anne DO [employer] Manager:None The exam and treatment you received in the Emergency Department were for an urgent problem and are not intended as complete care. It is important that you follow up with a doctor, nurse practitioner, or physician?s medical assistant internal medicine for ongoing care. If your symptoms become worse or you do not improve as expected and you are unable to reach your usual health care provider, you should return to the Emergency Department. We are available 24 hours a day. JESSEE ALMODOVAR has been given the following list of patient education materials, prescriptions and follow-up instructions: Follow-up Instructions: With: Address: When: CHELSEA KRAUS [employer], [address] [place] [address] Business (1) In 3 days 02/26/2022 [...] Foot Sprain; How to Use Cold Therapy, Iqpl-sc-Hddd; Elastic Bandage and RICE Therapy A MESSAGE TO ALL PATIENTS REGARDING OPIOIDS PRESCRIPTION OPIOIDS: WHAT YOU NEED TO KNOW Prescription opioids can be used to help relieve bmjsnhxl-ku-alsgmg pain and are often prescribed following a [...] Visit www.cdc.gov/ (more content not included)... Normal [facility] XR Foot 3+ Views Lefton XR Foot 3+ Views Left Exam Date/Time: [...] DO Transcribed by: SUZY Technologist: TIM Normal [facility] XR Pelvis and Hip - right [...] any questions regarding this interpretation, please call [phone]. If you are unable to reach us at the number above, please feel free to contact [facility] at [phone]. DIVISION OF RADIOLOGY * * *Final Report* [...] joint appears preserved. DIVISION OF RADIOLOGY Provider, [facility] - 02/19/2022 * * *Final [...] any questions regarding this interpretation, please call [phone]. If you are unable to reach us at the number above, please feel free to contact [facility] eRadiology at [phone]. [facility] XR Pelvis and Hip - right AP and Lateral frogOrdered By: Ccf Provider on 02-19-2022 [facility] XR Pelvis and Hip - right AP and Lateral frogon 02-18-2022 Radiology Study observation (narrative) [facility] CT ABD/PELV W CONon 02-12-20 [...] by: EMELIA STEWART Date: 2022-02-11 07:23 Normal [facility] US PELVIS AND TRANSVAGon US PELVIS [...] by: JENNIFER HARTLEY Date: 2022-01-08 14:12 Normal [facility] UA DIP, URINE (POC)on 2021 BILIRUBIN UA (POCT) Negative Negative [facility] CLARITY UA (POCT) Cloudy [facility] COLOR UA (POCT) Yellow [facility] GLUCOSE UA (POCT) Negative Negative mg/dL [facility] HEMOGLOBIN/BLOOD UA (POCT) Trace-intact Abnormal Negative [facility] KETONE UA (POCT) Negative Negative mg/dL [facility] LEUKOCYTES UA (POCT) Small Abnormal Negative [facility] NITRITE UA (POCT) Negative Negative [facility] PH UA (POCT) 6.5 4.5 - 8.0 [facility] Protein Ql (U) Negative Negative mg/dL [facility] SPECIFIC GRAVITY UA (POCT) 1.015 1.005 - 1.030 [facility] UROBILINOGEN UA (POCT) 0.2 E.U./dL Normal E.U./dL [facility] Large Joint Arthro/Inj: R gr eater trochanteric bursa [facility] Vital Signs Date Time Vital Sign Value Performing Clinician Facility 02-25-2023 13:16-0500 Body height 185.4 cm Rosas Mckinney MD Work Phone: [facility] 02-25-2023 13:16050 Body weight 76.67 kg Rosas Mckinney MD Work Phone: [facility] 07-10-2022 15:15-0400 Body height 181.61 cm Imad Asaad Other [facility] Other 07-10-2022 15:15-0400 Body mass index (BMI) [Ratio] 24.48 kg/m2 Imad Asaad Other [facility] Other 07-10-2022 15:15-0400 Body weight 80.74 kg Imad Asaad Other [facility] Other 07-10-2022 15:15-0400 Diastolic blood pressure 78 mm[Hg] Imad Asaad Other [facility] Other 07-10-2022 15:15-0400 Systolic blood pressure 130 mm[Hg] Imad Asaad Other [facility] Other 05-26-2022 09:29-0500 Blood Pressure Location Roxanne MOSLEY [facility] 05-26-2022 09:29-0500 Body temperature 98.42 [degF] Roxanne MOSLEY [facility] 05-26-2022 09:29-0500 Diastolic blood pressure 78 mm[Hg] Roxanne MOSLEY [facility] 05-26-2022 09:29-0500 Heart rate 115 /min Roxanne MOSLEY [facility] 05-26-2022 09:29-0500 SaO2% (BldA) [Mass fraction] 98 % Roxanne MOSLEY [facility] 05-26-2022 09:29-0500 Systolic blood pressure 120 mm[Hg] Roxanne MOSLEY [facility] 02-23-2022 09:10-0400 Body temperature 98.42 [degF] Chayo Anne [facility] 02-23-2022 09:10-0400 Diastolic blood pressure 67 mm[Hg] Chayo Anne [facility] 02-23-2022 09:10-0400 Heart rate 88 /min Chayo Anne [facility] 02-23-2022 09:10-0400 Respiratory rate 18 /min Chayo Anne [facility] 02-23-2022 09:10-0400 SaO2% (BldA) [Mass fraction] 98 % Chayo Anne [facility] 02-23-2022 09:10-0400 Systolic blood pressure 141 mm[Hg] Chayo Anen [facility] Encounters Encounter Date Encounter Type Care Provider Facility Start: 01-27-2024 End: 01-27-2024 ambulatory ELISEO SANDERSON Not Available Start: 01-19-2024 End: 01-19-2024 ambulatory ANUPAMA BROWN Facility:[facility] Start: 01-13-2024 End: 01-13-2024 ambulatory GUILLAUME PEDRO Not Available Start: 01-05-2024 End: 01-05-2024 ambulatory ANUPAMA BROWN Facility:[facility] Start: 12-30-2023 End: 12-30-2023 ambulatory GUILLAUME PEDRO Not Available Start: 12-16-2023 End: 12-16-2023 ambulatory GUILLAUME PEDRO Not Available Start: 12-08-2023 End: 12-08-2023 ambulatory GUILLAUME R PEDRO Facility:[facility] Start: 11-20-2023 End: 11-20-2023 ambulatory ANUPAMA BROWN Facility:[facility] Start: 11-18-2023 End: 11-18-2023 ambulatory ELISEO KIN Not Available Start: 10-22-2023 End: 10-22-2023 ambulatory GUILLAUME R PEDRO Facility:[facility] Start: 10-21-2023 End: 10-21-2023 ambulatory GUILLAUME PEDRO Not Available Start: 10-16-2023 End: 10-16-2023 ambulatory [facility] Start: 09-24-2023 End: 09-24-2023 ambulatory ELISEO KIN Not Available Start: 08-26-2023 End: 08-26-2023 ambulatory GUILLAUME PEDRO Not Available Start: 08-08-2023 End: 08-08-2023 ambulatory GUILLAUME R PEDRO Facility:[facility] Start: 07-24-2023 End: 07-24-2023 ambulatory GUILLAUME PEDRO Not Available Start: 06-04-2023 End: 06-04-2023 ambulatory [facility] Start: 06-02-2023 End: 06-02-2023 Phys/qhp telephone evaluation 5-10 min Guillaume Pedro DO Work Phone: [facility] Comment on above: Irregular menses (Pr imary Dx) Start: 06-02-2023 End: 06-02-2023 ambulatory GUILLAUME PEDRO Not Available Start: 05-28-2023 Chart abstracting Guillaume Pedro DO Work Phone: [facility] Start: 05-16-2023 End: 05-16-2023 ambulatory ANUPAMA HENDRICKSKER Facility:[facility] Start: 05-05-2023 End: 05-05-2023 ambulatory ASIF SCHAEFER Facility:[facility] Start: 05-02-2023 End: 05-02-2023 ambulatory ASIF SCHAEFER [facility] Start: 05-02-2023 End: 05-02-2023 Office outpatient visit 25 minutes Asif Schaefer USER INTERFACE ARTIST-OUTREACH LIBRARIAN Work Phone: [facility] Comment on above: Attention deficit hy peractivity disorder (ADHD), predominantly inattentive type (Primary Dx); Moderate episode of recurrent major depressive disorder (CMS-HCC); Generalized anxiety disorder Start: 03-04-2023 End: 03-04-2023 ambulatory GUILLAUME PEDRO Not Available Start: 02-25-2023 End: 02-25-2023 ambulatory ANUPAMA BROWN Facility:[facility] Start: 02-25-2023 End: 02-25-2023 Office outpatient visit 25 minutes Rosas Mckinney MD Work Phone: Orthopaedics Comment on above: Lytic bone lesion of femur (Primary Dx); Greater trochanteric bursitis of right hip; Chronic pain of right hip; Chronic low back pain, unspecified back pain laterality, unspecified whether sciatica present; Pain of right hip; Bone lesion Start: 02-20-2023 End: 02-20-2023 ambulatory ANUPAMA SANTOS KEVIN Facility:[facility] Start: 02-20-2023 End: 02-20-2023 Subsequent hospital [...] 07-10-2022 End: 07-10-2022 ambulatory Imad Asaad Other [facility] Other Start: 07-10-2022 Office outpatient ne w 45 minutes Imad Asaad [facility] Start: 05-26-2022 End: 05-27-2022 ambulatory Roxanne MOSLEY Facility:[facility] [place] Start: 05-26-2022 End: 05-26-2022 Patient encounter procedure Roxanne MOSLEY [facility] Start: 05-08-2022 End: 05-08-2022 ambulatory PRAVIN SANDERSON Facility: Start: 02-26-2022 End: 02-26-2022 Patient encounter procedure Rosas Mckinney MD Work Phone: Orthopaedics Comment on above: Lytic bone lesion of femur (Primary Dx) Start: 02-23-2022 End: 02-23-2022 Emergency department patient visit Chayo Anne Facility:[facility] Start: 02-23-2022 End: 02-23-2022 Emergency department patient visit Chayo Anne [facility] Start: 02-18-2022 End: 02-18-2022 Subsequent hospital [...] Dx) Start: 10-04-2021 Orders Only Macy Jones USER INTERFACE ARTIST.OUTREACH LIBRARIAN Work Phone: Hematology/Oncology Comment on above: Acute bilateral low back pain with bilateral sciatica (Primary Dx) Procedures Date Procedure Procedure Detail Performing Clinician Start: 08-08-2023 Antibody screen GUILLAUME MURILLO Comment on above: Order Comment: Speci men Type: BLOOD SPECIMEN Ordering Facility: External Submitter Address: , , Performed By: #### T SCR #### CC MAIN BLOOD BANK [facility] [id number] [address] [place] [address] [place] Start: 02-25-2023 Arthrocentesis aspir &/inj major jt/bursa w/o us Tiana Cronin PA-C Work Phone: Start: 02-20-2023 Radex hip unilateral with pelvis 2-3 views Roni Dumas MD Work Phone: Start: 08-08-2022 Adult depression scr eening assessment Asif Schaefer USER INTERFACE ARTIST-OUTREACH LIBRARIAN Work Phone: Start: 08-01-2022 Radex hip unilateral [...] Td Vaccines (4 - Td or Tdap) [facility] Start: 01-04-2030 Urine microalbumin profile DTa P,Tdap,Td Vaccine (4 - Td or Tdap) [facility] Start: 03-10-2024 Tobacco Screening Tobacco Screening [facility] Start: 02-23-2024 Screening for malign ant neoplasm of cervix [facility] Start: 12-21-2023 Covid-19 Vaccine ( season) Covid-19 Vaccine ( season) [facility] Start: 12-21-2023 Covid-19 Vaccine ( season) Covid-19 Vaccine ( season) [facility] Start: 12-21-2023 Influenza vaccination Influenza Vacc ine (#1) [facility] Start: 08-09-2023 Adult BMI Screening Adult BMI Screen ing [facility] Start: 08-09-2023 Depression Screening Depression Scre ening [facility] Start: 05-29-2023 End: 05-29-2023 Patient encounter procedure 05/29/2023 8:10 AM EST Office Visit [facility] [address] [place] [address] Guillaume Vasquez, [address], [place] [id number] Irregular menses [facility] Comment on above: Irregular menses Start: 12-20-2022 Covid-19 Vaccine ( season) Covid-19 Vaccine () [facility] Start: 12-20-2022 Influenza vaccination INFLUENZA (#1) [facility] Start: 11-15-2022 End: 01-15-2023 Comprehensive metabolic 2000 panel - Serum or Plasma [facility] Work Phone: Comment on above: Expected: 11/15/2022 , Expires: 01/15/2023 Start: 11-15-2022 End: 01-15-2023 Lipid 1996 panel - Serum or Plasma [facility] Work Phone: Comment on above: Expected: 11/15/2022 , Expires: 01/15/2023 Start: 11-15-2022 End: 01-15-2023 T4/FTI/T4U [facility] Work Phone: Comment on above: Expected: 11/15/2022 , Expires: 01/15/2023 Start: 11-15-2022 End: 01-15-2023 Thyrotropin [Units/volume] in Serum or Plasma [facility] Work Phone: Comment on above: Expected: 11/15/2022 , Expires: 01/15/2023 Start: 08-26-2022 End: 03-28-2023 XR HIP GENERAL 3V PELV/AP/LAT RIGHT XR HIP GENERAL 3V PELV/AP/LAT RIGHT Radiology Routine Lytic bone lesion of femur Expected: 08/26/2022, Expires: 03/28/2023 [facility] Work Phone: Comment on above: Expected: 08/26/2022 , Expires: 03/28/2023 Start: 08-09-2022 End: 10-09-2022 25-hydroxyvitamin D3 [Mass/volume] in Serum or Plasma [facility] Work Phone: Comment on above: Expected: 08/09/2022 , Expires: 10/09/2022 Start: 04-21-2022 DEPRESSION ASSESSMENT DEPRESSION ASS ESSMENT [facility] Start: 12-20-2021 Influenza vaccination INFLUENZA (#1) [facility] Start: 12-06-2021 End: 02-05-2022 Thyrotropin [Units/volume] in Serum or Plasma [facility] Work Phone: Comment on above: Expected: 12/06/2021 , Expires: 02/05/2022 Start: 12-06-2021 End: 02-05-2022 Thyroxine (T4) free [Mass/volume] in Serum or Plasma [facility] Work Phone: Comment on above: Expected: 12/06/2021 , Expires: 02/05/2022 Start: 12-06-2021 End: 02-05-2022 Triiodothyronine (T3) [Mass/volume] in Serum or Plasma [facility] Work Phone: Comment on above: Expected: 12/06/2021 , Expires: 02/05/2022 Start: 11-08-2021 End: 01-08-2022 Choriogonadotropin ( test) [Presence] in Urine [facility] Work Phone: Comment on above: Expected: 11/08/2021 , Expires: 01/08/2022 Start: 11-08-2021 End: 01-08-2022 URINALYSIS, REFLEX MICROSCOPIC [facility] Work Phone: Comment on above: Expected: 11/08/2021 , Expires: 01/08/2022 Start: 04-21-2021 DEPRESSION ASSESSMENT DEPRESSION ASS ESSMENT [facility] Start: 2021 HPV TESTING HPV TESTING [facility] Start: 10-13-2020 COVID-19 VACCINE (3 - Booster for Moderna series) COVID-19 VACCINE (3 - Booster for Moderna series) [facility] Start: 07-10-2020 COVID-19 VACCINE (3 - Booster for Moderna series) COVID-19 VACCINE (3 - Booster for Moderna series) [facility] Start: 07-10-2020 COVID-19 VACCINE (3 - Moderna series) COVID-19 VACCINE (3 - Moderna series) [facility] Start: 02-08-2012 PAP TESTING PAP TESTING [facility] Start: 02-08-2012 Screening for malign ant neoplasm of cervix [facility] Start: 2010 Urine microalbumin profile DTA P,TDAP,TD (1 - Tdap) [facility] Start: 2009 Anxiety Screening Anxiety Screening [facility] Start: 2009 Depression Screening Depression Scre ening [facility] Start: 2009 HEPATITIS C SCREENING HEPATITIS C SC REENING [facility] Start: 2009 HIV SCREENING HIV SCREENING [facility] Start: 2003 Adult depression scr eening assessment DEPRESSION SCREENING [facility] Start: 1997 Pneumococcal vaccination [facility] Start: 1991 HEPATITIS B (1 of 3 - 3-dose series) HEPATITIS B (1 of 3 - 3-dose series) [facility] Bacteria identified in Urine by Culture URINE CULTURE Microbiology Routine Pelvic pain 11/08/2021 11:36 AM EDT [facility] Work Phone: End: 06-02-2023 Drug Screen, Urine Drug Screen, Urine Lab Routine Attention deficit hyperactivity disorder (ADHD), predominantly inattentive type 1 Occurrences starting 05/02/2023 until 06/02/2023 [facility] Work Phone: Comment on above: 1 Occurrences starti ng 05/02/2023 until 06/02/2023 End: 03-26-2024 MRI HIP WO IVCON RIGHT MRI HIP WO IVCON RIGHT Radiology Routine Greater trochanteric bursitis of right hip Chronic pain of right hip Pain of right hip Bone lesion 1 Occurrences starting 02/25/2023 until 03/26/2024 [facility] Work Phone: Comment on above: 1 Occurrences starti ng 02/25/2023 until 03/26/2024 End: 03-18-2024 XR HIP GENERAL 3V PELV/AP/LAT RIGHT XR HIP GENERAL 3V PELV/AP/LAT RIGHT Radiology Routine Lytic bone lesion of femur 1 Occurrences starting 02/17/2023 until 03/18/2024 [facility] Work Phone: Comment on above: 1 Occurrences starti ng 02/17/2023 until 03/18/2024 [facility] Immunization Date Immunization Notes Care Provider Jonathan lara 01-28-2023 influenza virus vaccine, unspecified formulation Roni Dumas MD Work Phone: [facility] 02-14-2022 influenza virus vaccine, unspecified formulation Rosas Mckinney MD Work Phone: [facility] 01-18-2021 influenza virus vaccine, unspecified formulation Macy Jones APRN.CNP Work Phone: [facility] 03-01-2020 influenza, seasonal, injectable Imad Asaad Other [facility] Other 02-03-2016 influenza, injectable, quadrivalent, contains preservative Imad Asaad Other [facility] Other NEGATED: Highlighted row has not occurred!03-02-2019 influenza, seasonal, injectable Imad Asaad Other [facility] Other Payers Date Payer Category Payer Unknown [id number] 1990 Unknown [id number] 2.16.84 [id number] 1990 Unknown [id number] 2.16.84 0.1.641315.3.579.2.593 1991 Unknown [id number] 2.16.84 0.1.692667.3.579.2.593 1991 Unknown [id number] 2.16.8 40.1.104279.3.579.2.727 1991 Unknown [id number] 2.16.8 40.1.810690.3.579.2.727 1991 Unknown [id number] 2.16.84 0.1.013056.3.579.2.1286 1991 Unknown [id number] 2.16.8 40.1.506366.3.579.2.1286 1991 Unknown [id number] 2.16.8 40.1.375355.3.579.2.1286 1991 Unknown [id number] 2.16.8 40.1.004728.3.579.2.1286 1991 Unknown [id number] 2.16.84 0.1.023159.3.579.2.1259 1991 Unknown [id number] 2.16.84 0.1.376067.3.579.2.1259 1991 Unknown [id number] 2.16.84 0.1.781651.3.579.2.1259 1991 Unknown [id number] 2.16.84 0.1.362481.3.579.2.1259 1991 Unknown [id number] 2.16.84 0.1.560544.3.579.2.1259 1991 Unknown [id number] 2.16.84 0.1.891170.3.579.2.1259 1991 Unknown [id number] 2.16.84 0.1.521273.3.579.2.1259 1991 Unknown [id number] 2.16.84 0.1.657827.3.579.2.1259 1991 Unknown [id number] 2.16.84 0.1.424853.3.579.2.1259 1991 Unknown [id number] 2.16.84 0.1.190737.3.579.2.1259 1991 Unknown [id number] 2.16.840. 1.313322.3.579.2.1259 1959 Unknown [id number] Social History Date Type Detail Facility Tobacco smoking status MSIS Tobacco smoking consumption unknown [facility] Work Phone: Start: 1990 Sex Assigned At Not on file [facility] Start: 10-29-2021 End: 02-26-2022 Exposure to SARS-CoV-2 (event) Not sure [facility] Start: 03-21-2013 End: 02-11-2022 Tobacco smoking status Ex-smoker (finding) [facility] Comment on above: quit 01/2013 Start: 02-11-2022 End: 02-26-2022 Sex Assigned At Female [facility] History of tobacco use Current smoker [facility] History of tobacco use Cigarette Smoker [facility] History of tobacco use Passive smoker [facility] Start: 02-11-2022 End: 08-08-2022 Tobacco use and exposure Smokeless tobacco non-user [facility] Start: 02-11-2022 End: 02-26-2022 Alcohol intake Current drinker of alcohol (finding) [facility] Tobacco smoking status Never [facility] Start: 02-11-2022 End: 02-26-2022 History of Social function [facility] Start: 02-25-2023 End: 05-28-2023 Tobacco smoking status NHIS Occasional tobacco smoker [facility] Start: 08-08-2022 Alcohol Comment on the weekends [facility] Start: 05-28-2023 Alcohol Comment caffeine: 2-3 cups per day coffee; soda [facility] Functional Status Date Assessment Result Facility 05-26-2022 Functional Status N/A [facility] 02-23-2022 Functional Status N/A [facility] Clinical Notes 08-20-2015 to 06-02-2023 Guillaume Vasquez DO - 06/02/2023 4:20 PM ESTPsychiatric Progress Note - Asif Schaefer APRN-[facility] - 05/02/2023 10:00 AM ESTPatient Rosas Wilson MD - 02/25/2023 1:10 PM EST Note Date & Type Note Facility 06-02-2023 History of Present illness Narrative Reason for Appointment: Patient ID: Jessee Almodovar is a 33 y.o. female who presents for No chief complaint on file. Patient presents today via telephone call for a telehealth appointment. Patients Phone #: [phone] (mobile) Current Medications: has a current medication [...] or as needed. Will consider referral to [facility] in future Documented by Guillaume Vasquez DO on behalf of: Guillaume Vasquez DO documented in this encounter [facility] 05-02-2023 Miscellaneous Notes [address] [place] [address] Patient: Jessee Almodovar Date of : 1990 Encounter Date: 05/02/2023 History of Present Illness/Psychiatric Review of Symptoms/Medical Review of Systems: Video Visit via Real-time Synchronous Audiovisual Provider Location: [facility] [address] [place] [address] Patient Location: patient's office in [place], [place] Video Visit Consent Statement: I discussed [...] that there are some limitations compared to wvae-ae-psex evaluations. The patient consented to the presence of additional virtual and/or in-person participants. We elected to proceed. Jessee is a 33 y.o. female, established patient, and is logged on via [employer] for a follow-up video visit. HPI: Jessee reports she is feeling about the same since last visit. She was unable to tell the difference between taking the immediate release Adderall. She expresses frustrations with still feeling easily distractible. She has had a lot going on since the holidays. She enjoyed [place] and new 's with her immediate family. She traveled to [place] to see her parents, which went well. [...] Moderate episode of recurrent major depressive disorder ([facility]) Generalized anxiety disorder Attention deficit hyperactivity disorder [...] Moderate episode of recurrent major depressive disorder ([facility]) Generalized anxiety disorder Medication Changes: yes [...] SCHAEFER CNP, PMP-. BARAK De Leon 05/02/23 1369 [facility] Progress note Formatting of t his note is different from the original. [address] [facility] [address] Patient: Jessee Almodovar Date of : 1990 Encounter Date: 05/02/2023 History of Present Illness/Psychiatric Review of Symptoms/Medical Review of Systems: Video Visit via Real-time Synchronous Audiovisual Provider Location: [facility] [address] [place] [address] Patient Location: patient's office in [place], [place] Video Visit Consent Statement: I discussed [...] that there are some limitations compared to nmcv-ac-pdcx evaluations. The patient consented to the presence of additional virtual and/or in-person participants. We elected to proceed. Jessee is a 33 y.o. female, established patient, and is logged on via Air[employer] for a follow-up video visit. HPI: Jessee reports she is feeling about the same since last visit. She was unable to tell the difference between taking the immediate release Adderall. She expresses frustrations with still feeling easily distractible. She has had a lot going on since the holidays. She enjoyed [place] and 's with her immediate family. She traveled to [place] to see her parents, which went well. [...] Moderate episode of recurrent major depressive disorder ([facility]) Generalized anxiety disorder Attention deficit hyperactivity disorder [...] Moderate episode of recurrent major depressive disorder [facility] Generalized anxiety disorder Medication Changes: yes start [...] Follow-up: In 4 weeks ASIF SCHAEFER CNP, PMHNP-. BARAK De Leon 05/02/23 1746 [facility] 02-25-2023 Instructions Tiana Cronin PA-C - 02/25/2023 1:56 PM EST Images from the original note were not included. MRI right hip Home exercises Continue with NSAIDS CSI right hip- may repeat in 3 months if needed documented in this encounter [facility] 02-25-2023 Note HNO ID: [id number] Author: Rosas Mckinney MD Service: ? Author [...] given from [facility] (more content not included)... [facility] 02-25-2023 History of Present illness Narrative [...] trochanteric bursa Informed Consent Consent Obtained: Verbal [place] Protocol A moment to CARE was completed. [...] Time: 10:49 PM documented in this encounter [facility] 02-20-2023 History of Present illness [...] 2023 8:45 AM documented in this encounter [facility] 02-20-2023 Note HNO ID: [id number] Author: Kathrine Smith RT(Kena) Service: ? Author [...] RT Francisco(R) February 20, 2023 8:[address] [facility] 02-17-2023 Miscellaneous Notes Jourdan Atkins, My [...] like. Thanks, Td. documented in this encounter [facility] 08-01-2022 History of Present illness [...] 2022 9:04 AM documented in this encounter [facility] 07-10-2022 Evaluation note Encounter Date Diagnosis Assessment Notes Jun, Constipation (ICD-10 - K59.00) Jun, Change in bowel habits (ICD-10 - R19.4) Jun, Diarrhea (ICD-10 - R19.7) Patient to start Align probiotic. Jun, Bloating (ICD-10 - R14.0) [facility] Other 02-05-2023 Hospital Discharge instructions Patient Education 05/26/2022 10:06:58 Strep Throat, Adult, Ztrd-xw-Brue Strep Throat, Adult Strep throat is an [...] Follow these instructions at home: Medicines Take zfck-esh-oyeuhmj and prescription medicines only as told by [...] 09/23/2008 Document Revised: 06/25/2019 Document Reviewed: 06/25/2019 Attune Patient Education 2020 [employer]. 05/26/2022 10:06:56 BMI for Adults BMI for [...] height. This can be done either in [place]ian ([place] or metric measurements. Note that charts are available to help you find your BMI quickly and easily without having to do these calculations yourself. To calculate your BMI in [place]ian ([place] measurements, your health care provider will: [...] medical problems. BMI can be measured using Estonian measurements or metric measurements. To interpret your [...] 12/17/2004 Document Revised: 03/20/2018 Document Reviewed: 02/18/2018 Elsevier Patient Education 2020 [employer] Inc. Follow Up Care 05/26/2022 09:09:50 With:CHELSEA KRAUS DO Address: [employer] [address] [place] [address]- When: Unknown [facility] 11-08-2022 History of Present [...] she has undergone a workup with her social group worker. 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 Patient does [...] being sent back to Roni Dumas via facsAppirioe/[employer] Office Support Associate or Chart CC for [facility] Providers. Rosas Mckinney MD Health And Wellness Advisor, Orthopaedic Surgery Division of Musculoskeletal Oncology [facility] Evaluation + Plan note Extracted from: Title:ED Note Author:Mohan Garcia PA-C te:02/23/22 Sprain of left foot (S93.602 A: Unspecified sprain of left foot, initial encounter) Orders: Crutches Elastic Bandage Application XR Foot 3+ Views Left [facility]11-05-2022 Hospital Discharge instructions Patient Education 02/23/2022 [...] fully hardened. This may takeseveral hours. Take loez-sik-wfdgpju and prescription medicines only as told by [...] 09/27/2002 Document Revised: 04/11/2018 Document Reviewed: 04/11/2018 Attune Patient Education 2020 [employer]. 02/23/2022 11:07:01 How to Use Cold Therapy, Weir-qj-Rfuu How to Use Cold Therapy Cold therapy, [...] 09/23/2008 Document Revised: 01/04/2019 Document Reviewed: 01/04/2019 Attune Patient Education 2020 [employer] 02/23/2022 11:07:01 Elastic Bandage and RICE [...] limityour activities and whether you should start bzapk-gk-rkbjsd exercises for your injury. Ice Ice your [...] 09/27/2002 Document Revised: 12/26/2017 Document Reviewed: 12/26/2017 Attune Patient Education 2020 [employer]. Follow Up Care 02/23/2022 09:05:48 With:CHELSEA KRAUS Address: [employer] [address] [place], [place] [id number] Business (1) When:02/26/2022 10:46:43 Comments:Follow-up with your primary care provider in 3 to 5 days. If symptoms worsen, do not improve, or new symptoms arise please report back to emergency department for further evaluation. [facility]10-31-2022 History of Present illness Narrative* Kathrine [...] 18, 2022 3:09 PM [facility] Nurse Note* Lillie Smith - 11/08/2021 11:25 AM EDT UA performed as ordered. Lillie Smith [facility] History of Present illness Narrative* Macy Jones APRN.CNP - 10/04/2021 3:36 PM EDT Physical documented [facility]2016 History general Narrative - Reported* Type Description Date Medical History Bernardo's thyroiditis Medical History Post- depression 2019 Surgical History D & C d/t miscarriage 08/2015 Surgical History LEEP 2012 Hospitalization History child [facility] Other Evaluation note* Diagnosis Acute bilateral low back pain with bilateral sciatica- Primary [facility]* Diagnosis Pelvic pain- Primary [facility] Diagnosis Dysuria- Primary [facility]* Diagnosis Dysuria- Primary [facility]* Diagnosis Unspecified hypothyroidism- [facility] Diagnosis Lytic bone lesion of femur- Primary [facility]* Diagnosis Moderate episode of recurrent major depressive disorder (HCC)- Primary [facility]* Diagnosis Unspecified hypothyroidism- Primary Essential hypertension, malignant Lipids blood increased Other and unspecified hyperlipidemia Vegans' anemia Other vitamin B12 deficiency anemia [facility]* Diagnosis Lytic bone lesion of femur- Primary [facility]* Diagnosis Lytic bone lesion of femur- Primary Greater trochanteric bursitis of right hip Enthesopathy of hip region Chronic pain of right hip Chronic low back pain, unspecified back pain laterality, unspecified whether sciatica present Pain of right hip Bone lesion Disorder of bone and cartilage, unspecified documented in this [facility] Diagnosis Attention deficit hyperactivity disorder (ADHD), predominantly 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 (CMS-HCC) Generalized anxiety disorder documented in this encounter [facility]* Diagnosis Irregular menses- Primary Irregular menstrual cycle [facility] Diagnosis Lytic bone lesion of femur documented in this encounter [facility]* Diagnosis Lytic bone lesion of femur documented in this encounter [facility]* Diagnosis Lytic bone lesion of femur [facility] Narrative No data available for this section [facility] Attachments The following attachments cannot be sent through Care Everywhere. * Methylphenidate, ADULT (Estonian) [facility] No data available for this section [facility] (narrative)* Diagnostic Procedure Only (Routine) - Pending Review Specialty Diagnoses / Procedures Referred By Spencerac t Referred To Contact XR IMAGING Diagnoses Lytic bone lesion of femur Procedures XR HIP GENERAL 3V PELV/AP/LAT RIGHT RADEX HIP UNILATERAL WITH PELVIS 2-3 VIEWS Rosas Mckinney MD [address] [place] [address] Xr Imaging Referral ID Status Reason Start Date Expiration Date Visits Requested Visits Authorized [id number] Pending Review Auto-Generat ed Referral 08/26/2022 03/28/2023 1 1 [facility] for referral (narrative)* Diagnostic Procedure Only (Routine) - Pending Review Specialty Diagnoses / Procedures Referred By Contac t Referred To Contact XR IMAGING Diagnoses Lytic bone lesion of femur Procedures XR HIP GENERAL 3V PELV/AP/LAT RIGHT RADEX HIP UNILATERAL WITH PELVIS 2-3 VIEWS Tiana Cronin PA-C [address] [place] [address] [place] [address] Referral ID Status Reason Start Date Expiration Date Visits Requested Visits Authorized [id number] Pending Review Auto-Generat ed Referral 03/18/2024 1 1 [facility] for referral (narrative)* Diagnostic Procedure Only (Routine) - Closed Specialty Diagnoses / Procedures Referred By Contac t Referred To Contact XR IMAGING Diagnoses Lytic bone lesion of femur Procedures XR HIP GENERAL 3V PELV/AP/LAT RIGHT RADEX HIP UNILATERAL WITH PELVIS 2-3 VIEWS Roni Dumas MD [address] [place] [address] [place] [address] [place] [address] Referral ID Status Reason Start Date Expiration Date V isits Requested Visits Authorized [id number] Closed Auto-Generate d Referral 02/17/2023 03/18/2024 1 1 [facility] for referral (narrative)* Diagnostic Procedure Only (Routine) - Closed Specialty Diagnoses / Procedures Referred By Contac t Referred To Contact XR IMAGING Diagnoses Lytic bone lesion of femur Procedures XR HIP GENERAL 3V PELV/AP/LAT RIGHT RADEX HIP UNILATERAL WITH PELVIS 2-3 VIEWS Rosas Mckinney MD [address] [place] [address] [place] [address] Referral ID Status Reason Start Date Expiration Date V isits Requested Visits Authorized [id number] Closed Auto-Generate d Referral 08/26/2022 03/28/2023 1 1 [facility] Diagnostic Procedure Only (Routine) - Closed Specialty Diagnoses / Procedures Referred By Contac t Referred To Contact XR IMAGING Diagnoses Lytic bone lesion of femur Procedures XR HIP GENERAL 3V PELV/AP/LAT RIGHT RADEX HIP UNILATERAL WITH PELVIS 2-3 VIEWS Roni Dumas MD [address] [place] [address] [place] [address] Referral ID Status Reason Start Date Expiration Date V isits Requested Visits Authorized [id number] Closed Auto-Generate d Referral 02/18/2022 03/20/2023 1 1 [facility] Reason for Referral Specialty Diagnoses / Procedures Referred By Contac t Referred To Contact [facility] Diagnoses Acute bilateral low back pain with bilateral sciatica Procedures CONSULT TO PHYSICAL THERAPY PHYSICAL THERAPY EVALUATION HIGH COMPLEX 45 MINS Macy Jones, USER INTERFACE ARTIST.OUTREACH LIBRARIAN [address] [place] [address] [facility] [place] [address] [place] [address] Referral ID Status Reason Start Date Expiration Date Visits Requested Visits Authorized [id number] Pending Review Auto-Generat ed Referral 10/04/2021 10/04/2022 1 1 Specialty Diagnoses / Procedures Referred By Contac t Referred To Contact MR IMAGING Diagnoses Greater trochanteric bursitis of right hip Chronic pain of right hip Pain of right hip Bone lesion Procedures MRI HIP WO IVCON RIGHT MRI ANY JT LOWER EXTREM W/O CONTRAST MATRL Tiana Cronin, LIZZY [address] [facility] [address] [place] [address] [place] [address] Referral ID Status Reason Start Date Expiration Date Visits Requested Visits Authorized [id number] Authorized Auto-Generat ed Referral 02/25/2023 03/26/2024 1 [...] or prosecute any alcohol or drug abuse patient.[facility] the event this information is protected by the Federal Confidentiality of Alcohol and Drug Abuse Patient Records regulations: The Federal rules restrict any use of the information to criminally investigate or prosecute any alcohol or drug abuse patient.[facility] CenterIn the event this information is protected by the Federal Confidentiality of Alcohol and Drug Abuse Patient Records regulations: The Federal rules restrict any use of the information to criminally investigate or prosecute any alcohol or drug abuse patient.[facility] Center[facility] the event this information is protected by the Federal Confidentiality of Alcohol and Drug Abuse Patient Records regulations: The Federal rules restrict any use of the information to criminally investigate or prosecute any alcohol or drug abuse patient.[facility] Center[facility] the event this information is protected by the Federal Confidentiality of Alcohol and Drug Abuse Patient Records regulations: The Federal rules restrict any use of the information to criminally investigate or prosecute any alcohol or drug abuse patient.[facility] CenterIn the event this information is protected by the Federal Confidentiality of Alcohol and Drug Abuse Patient Records regulations: The Federal rules restrict any use of the information to criminally investigate or prosecute any alcohol or drug abuse patient.[facility] CenterIn the event this information is protected by the Federal Confidentiality of Alcohol and Drug Abuse Patient Records regulations: The Federal rules restrict any use of the information to criminally investigate or prosecute any alcohol or drug abuse patient.[facility] Center[facility] the event this information is protected by the Federal Confidentiality of Alcohol and Drug Abuse Patient Records regulations: The Federal rules restrict any use of the information to criminally investigate or prosecute any alcohol or drug abuse patient.[facility] CenterIn the event this information is protected by the Federal Confidentiality of Alcohol and Drug Abuse Patient Records regulations: The Federal rules restrict any use of the information to criminally investigate or prosecute any alcohol or drug abuse patient.[facility] CenterIn the event this information is protected by the Federal Confidentiality of Alcohol and Drug Abuse Patient Records regulations: The Federal rules restrict any use of the information to criminally investigate or prosecute any alcohol or drug abuse patient.[facility] CenterIn the event this information is protected by the Federal Confidentiality of Alcohol and Drug Abuse Patient Records regulations: The Federal rules restrict any use of the information to criminally investigate or prosecute any alcohol or drug abuse patient.[facility] CenterIn the event this information is protected by the Federal Confidentiality of Alcohol and Drug Abuse Patient Records regulations: The Federal rules restrict any use of the information to criminally investigate or prosecute any alcohol or drug abuse patient.[facility] CenterIn the event this information is protected by the Federal Confidentiality of Alcohol and Drug Abuse Patient Records regulations: The Federal rules restrict any use of the information to criminally investigate or prosecute any alcohol or drug abuse patient.[facility] Patient Care team informatio n (unrecognized section and content) External Auditor Relationship Specialty Start Date End Date Anupama Brown DO [address] [place] [address] PCP - General Family Medicine 07/25/22 Emile Mesa MD [address] [address] Gastroenterology 07/25/22 Guillaume Vasquez DO [address] [place] [address] [place] [address] GEOTECHNICAL DEPARTMENT MANAGER 07/25/22 External Auditor Relationship Specialty Start Date End Date Anupama Brown DO [address] [place] [address] PCP - General Family Medicine 07/25/22 Emile Mesa MD [address] [place] [address] Gastroenterology 07/25/22 Guillaume Vasquez DO [address] [place] [address] [place] [address] GEOTECHNICAL DEPARTMENT MANAGER 07/25/22 External Auditor Relationship Specialty Start Date End Date Anupama Brown DO [address] [place] [address] PCP - General Family Medicine 07/25/22 Emile Mesa MD [address] [place] [address] Gastroenterology 07/25/22 Guillaume Vasquez, DO [address] [facility] [place] [address] GEOTECHNICAL DEPARTMENT MANAGER 07/25/22 External Auditor Relationship Specialty Start Date End Date Anupama Brown, DO [address] [place] [address] PCP - General Family Medicine 07/25/22 Emile Mesa MD [address] [place] [address], [place] [address] Gastroenterology 07/25/22 Guillaume Vasquez, DO [address] [place] [address] GEOTECHNICAL DEPARTMENT MANAGER 07/25/22 External Auditor Relationship Specialty Start Date End Date Chelsea Kraus, DO [address] [facility] [address] [place] [address] PCP - General Family Medicine 07/02/19 External Auditor Relationship Specialty Start Date End Date Anupama Brown MD [address] [place] [id number] PCP - General Family Medicine 03/04/23 External Auditor Relationship Specialty Start Date End Date Anupama Brown MD [address] [place] [phone] PCP - General Family Medicine 03/04/23 External Auditor Relationship Specialty Start Date End Date Anupama Brown, DO [address] [place] [address] PCP - General Family Medicine 07/25/22 Emile Mesa MD [address] [place] [address] Gastroenterology 07/25/22 Guillaume Vasquez DO [address] [place] [address] Shellfish Dredge Operator 07/25/22 External Auditor Relationship Specialty Start Date End Date Anupama Brown DO [address] [facility] [place] [address] PCP - General [facility] 07/25/22 Emile Mesa MD [address] [place] [address] Gastroenterology 07/25/22 Guillaume Vasquez DO [address] [place] [address] Shellfish Dredge Operator 07/25/22 Reason for Visit (unrecogniz ed section and content) Reason Comments New Pain Tumor/Mass Specialty Diagnoses / Procedures Referred By Contac t Referred To Contact Orthopedics Diagnoses Lytic bone lesion of femur Procedures CONSULT TO ORTHOPAEDICS OFFICE/OUTPATIENT NEW HIGH MDM 60-74 MINUTES Roni Dumas MD [address] [place] [address] [place] [address] Referral ID Status Reason Start Date Expiration Date V isits Requested Visits Authorized [id number] Closed PCP Requested Referral 02/18/2022 02/18/2023 1 1 Reason Comments New Pain Reason Comments Radio Gen RMP Specialty Diagnoses / Procedures Referred By Contac t Referred To Contact XR IMAGING Diagnoses Lytic bone lesion of femur Procedures XR HIP GENERAL 3V PELV/AP/LAT RIGHT RADEX HIP UNILATERAL WITH PELVIS 2-3 VIEWS Roni Dumas MD [address] [place] [address] [place] [address] Referral ID Status Reason Start Date Expiration Date V isits Requested Visits Authorized [id number] Closed Auto-Generate d Referral 02/17/2023 03/18/2024 1 1 Specialty Diagnoses / Procedures Referred By Contac t Referred To Contact XR IMAGING Diagnoses Lytic bone lesion of femur Procedures XR HIP GENERAL 3V PELV/AP/LAT RIGHT RADEX HIP UNILATERAL WITH PELVIS 2-3 VIEWS Rosas Mckinney MD [address] [place] [address] [place] [address] Referral ID Status Reason Start Date Expiration Date V isits Requested Visits Authorized [id number] Closed Auto-Generate d Referral 08/26/2022 03/28/2023 1 1 Referral ID Status Reason Start Date Expiration Date V isits Requested Visits Authorized [id number] Closed Auto-Generate d Referral 02/18/2022 03/20/2023 1 1 INFORMATION SOURCE (unrecogn ized section and content) DATE CREATED AUTHOR 05/08/2022 [facility] DATE CREATED AUTHOR AUTHOR'S ORGANIZ ATION 05/26/2022 [facility] DATE CREATED AUTHOR AUTHOR'S ORGANIZ ATION 05/04/2023 [facility] DATE CREATED AUTHOR AUTHOR'S ORGANIZ ATION 06/06/2023 [facility] DATE CREATED AUTHOR AUTHOR'S ORGANIZ ATION 10/17/2023 [facility] DATE CREATED AUTHOR AUTHOR'S ORGANIZ ATION 01/20/2024 [facility] DATE CREATED AUTHOR AUTHOR'S ORGANIZ ATION 01/28/2024 [facility] dical Specialists EPIC FOR RECORDS PERTAINING TO PATIENTS WHO ARE [...] BE BASED ON THE PRIMARY CLINICAL RECORDS. [facility] [employer] [facility]. provides no warranty or guarantee of the accuracy or completeness of information in this document.
--- NOTE | 2024-01-31 13:04 | US_ITS ---
[address] [address] Patient Name: JESSEE JEFFERS MRN: [id number] date: 1990 Sex: F Assigned Patient Location: [facility] Current Patient Location: Accession/Order Number: [id number] Exam Date: 01/31/2024 13:06 Report Date: 02/01/2024 04:24 At the request of: TEE RUBIN Procedure: US OB BPP w non-stress EXAMINATION: US OB BPP w non-stress HISTORY:EXCESSIVE GROWTH AFFECTING O36.63X0 COMPARISON: Ultrasound OB biophysical 01/28/2024 TECHNIQUE: Ultrasound biophysical profile was performed in the radiology department. BREATHING MOVEMENTS: 2 GROSS BODY MOVEMENTS: 2 TONE: 2 QUALITATIVE AMNIOTIC FLUID VOLUME: 2 PRESENTATION: CEPHALIC HEART RATE: 142.86 bpm AMNIOTIC FLUID VOLUME: 16.45 cm GESTATIONAL AGE: 34 weeks 2 days US/US OB BPP w non-stress IMPRESSION: Total biophysical profile score: 8 Electronically authenticated by: JENNIFER HARTLEY Date: 02/01/2024 04:24
[2024-01-31 13:37] VITALS: BP 123/79; PULSE 88
== END 2024-01-31 14:10 | disposition home or self-care (01) ==
LOC: US 06:32 → FBC 13:01
PROVIDERS: Visit Provider Obstetrics & Gynecology
DX: O36.63X0 Maternal care for excessive fetal growth, third trimester, not applicable or unspecified (principal)
CPT/HCPCS: 76818

== ENCOUNTER 2024-02-04 06:57 | Outpatient (OUT) | payer OTHER, SELFPAY ==
--- OUTSIDE RECORDS SUMMARY | 2024-02-04 07:01 | XMS_ITS | CCD ---
Author Organization [facility] Care Team Providers Care Dress Fitter Name Role Phone Unavailable Primary Care Provider [...] Unavailable PEDRO, DR OLIVEIRA Primary Care Unavailable HAZEN, DR EMELIA Luna Consulting Unavailable PEDRO, DR OLIVEIRA Consulting Unavailable Chayo Anne Attending Unavailable Roxanne MOSLEY Attending Unavailable Asakatlyn, Imad Unavailable Anupama Brown DO Primary Care Provider Eimle Mesa MD Unavailable Guillaume Vasquez DO Unavailable Anupama Brown DO Primary Care Provider Emile Mesa MD Unavailable Chelsea Kraus DO Primary Care Provider [phone] ASIF SCHAEFER Attending Unavailable CHELSEA KRAUS Referring Unavailable CHELSEA KRAUS Primary Care Unavailable Anupama Brown MD Primary Care Provider [phone] ASIF SCHAEFER Attending Unavailable EFRA, CHELSEA Quezada Referring Unavailable EFRA, CHELSEA A Primary Care Unavailable EFRA, CHELSEA A Referring Unavailable EFRA, CHELSEA A Primary Care Unavailable HECTOR MANCERA Attending Unavailable EFRA, CHELSEA A Referring Unavailable EFRA, CHELSEA A Primary Care Unavailable Kevin , Anupama Veronica Primary Care Provider Moshe PALOMINO, Imkatlyn Unavailable Pedro DO, Guillaume R Unavailable Unavailable Primary Care Provider Unavailabl e PEDRO, GUILLAUME R Referring Unavailable KEVIN, [facility] Primary Care Unavailabl e KEVIN, [facility] Primary Care Unavailabl e FRANNY SANDERSON Referring Unavailable PEDRO, GUILLAUME R Referring Unavailable KEVIN, [facility] Primary Care Unavailabl e PEDRO, GUILLAUME R Referring Unavailable KEVIN, [facility] Unavailabl e KEVIN, [facility] Primary Care Unavailabl e ASIF SCHAEFER Referring Unavailable KEVIN, [facility] Primary Care Unavailabl e KEVIN, [facility] Primary Care Unavailabl e KEVIN, [facility] Primary Care Unavailabl e ROSAS MCKINNEY Attending Unavailable ABHYANKAR, RONI Referring Unavailable KEVIN, [facility] Primary Care Unavailabl e ABHYANKAR, RONI Referring Unavailable KEVIN, [facility] Primary Care Unavailabl e KEVIN, [facility] Primary Care Unavailabl e PEDROMICHAELY Attending Unavailable PEDRO, GUILLAUME Attending Unavailable PEDRO, GUILLAUME Attending Unavailable KINFRANNY Attending Unavailable PEDRO, GUILLAUME Attending Unavailable KIN FRANNY Attending Unavailable PEDRO, GUILLAUME Attending Unavailable PEDRO, GUILLAUME Attending Unavailable PEDRO, GUILLAUME Attending Unavailable KIN, FRANNY Attending Unavailable Medications Current Medications Medication Drug Class(es) Dates Sig (Normalized) Sig (Original) amoxicillin 500 mg oral capsule (1 source) Penicillin-class Antibacterial Start: 05-26-2022 End: 06-05-2022 take 1 capsule by mouth every twelve hours amoxicillin 500 mg Cap 500 mg = 1 cap(s), Oral, q12hr, X 10 day(s), # 20 cap(s), Refills(s) 0, Pharmacy: [facility], 172, cm, 05/26/22 9:34:00 EST, Height/Length Dosing, 83.6, kg, 05/26/22 9:34:00 EST, Weight Dosing Start Date: 05/26/22 Stop Date: 06/05/22 Status: Ordered aspirin 81 mg delayed release oral tablet (3 sources) Platelet Aggregation Inhibitor, Nonsteroidal Anti-inflammatory Drug take 1 tablet by mouth once daily aspirin 81 MG EC tablet Take 81 mg by mouth Daily Active Biotin (13 sources) Start: 05-26-2022 biotin Refills(s) [...] oral tablet (2 sources) Progestin, Estrogen Start: 05-29-19 End: 08-27-19 24 take 1 tablet by mouth in the morning, then take 1 tablet by mouth once daily desogestrel-ethinyl estradiol (Apri) 0.15-30 MG-MCG tablet Indications: Menorrhagia with regular cycle Take 1 tablet by mouth in the morning. Take 1 tablet by mouth daily. 90 tablet 0 05/29/2023 08/27/2023 Active docusate sodium 100 mg oral capsule (2 sources) Start: 01-27-20 End: 02-26-20 take 1 capsule by mouth twice daily as needed for constipation docusate sodium (Colace) 100 MG capsule Indications: Constipation, unspecified constipation type Take 1 capsule (100 mg) by mouth 2 (two) times a day as needed for constipation 30 capsule 5 01/27/2024 02/26/2024 Active labetalol hydrochloride 100 mg oral tablet (3 sources) beta-Adrenergic Anais Start: 07-24-19 End: 07-24-19 take 1 tablet by mouth in the morning labetalol (Normodyne) 100 MG tablet Indications: Pre-existing hypertension during , antepartum, unspecified pre-existing hypertension type Take 1 tablet (100 mg) by mouth in the morning and 1 tablet (100 mg) before bedtime. 60 tablet 11 07/24/2023 07/23/2024 Active levothyroxine sodium 0.025 mg oral tablet (20 sources) l-Thyroxine Start: 11-03-19 End: 11-03-19 take 1 tablet by mouth before mealtime levothyroxine (Synthroid) 25 MCG tablet Indications: Thyroid disease (CMS/HCC) Take 1 tablet (25 mcg) by mouth in the morning. Take before meals. 30 tablet 11 11/03/2023 11/02/2024 Active Start: 11-18-2022 take 1 tablet by suzanna th in the morning levothyroxine (Synthroid, Levoxyl) 200 MCG tablet Take 200 mcg by mouth in the morning. 11/18/2022 Active Start: 05-26-2022 levothyroxine 175 mcg [...] minutes before eating or taking other medications magnesium oxide 400 mg oral tablet (2 sources) Start: End: take 1 tablet by mouth once daily magnesium oxide (Mag-Ox) 400 MG tablet Indications: Nonintractable headache, unspecified chronicity pattern, unspecified headache type Take 1 tablet (400 mg) by mouth Daily 90 tablet 01/27/2024 04/26/2024 Active evening dosing 24 hr methylphenidate hydrochloride 20 [...] 18 mg Take 1 tablet by suzanna every morning. Max Daily Amount: 27 mg [...] 09-11-2021 take 1 capsule by mo ut before mealtime omeprazole (PriLOSEC) [address] capsule Take 40 mg by mouth in the morning. Take before meals. 05/26/2022 Active Comment on above: Take 1 capsule by mo ut once daily. Wait 20-30 minutes before eating or taking other medications. Take 1 capsule by mo ut once daily in the morning, wait 20-30 minutes before eating or taking other medications Take 1 capsule by mo [facility] once daily. 20-30 minutes before eating or taking other medications Take 1 tablet by [facility] once daily in the morning, 20-30 minutes before eating or taking other medications Take 1 capsule by mo ut twice daily. PNV no.95/ferrous fum/folic ac ( ORAL) (8 sources) PNV no.95/ferrou s fum/folic ac ( ORAL) Take by mouth. Active PNV no.95/ferrou s fum/folic ac ( ORAL) Take by mouth. 0 Active Comment on above: Take by mouth. polysaccharide iron complex 391 mg oral capsule (2 sources) Start: 4 End: 5 take 1 capsule by mouth once daily iron polysaccharides (ProFe) 391.3 (180 Fe) MG capsule Indications: Low iron Take 1 capsule (391.3 mg) by mouth Daily 90 capsule 01/27/2024 04/26/2024 Active 25/iron fum/folic/dha (-1 ORAL) (1 source) take 1 tablet by mouth once daily 25/iron fum/folic/dha (-1 ORAL) Take 1 tablet by mouth daily. 0 Active Multivitamins (1 source) Start: take 1 tablet by mouth once daily Multivitamins 1 tab(s), Oral, Daily, Refill(s) 0 Start Date: 05/26/22 Status: Ordered MV-Min-Fe Fum-FA-DHA ( 1 PO) (6 sources) MV-Min- Fe Fum-FA-DHA ( 1 PO) Take by mouth. Active MV-Min- Fe Fum-FA-DHA ( 1 PO) Take by mouth. 0 Active traZODone hydrochloride 100 mg oral tablet (11 sources) Serotonin Reuptake Inhibitor Start: 02-26-2023 traZODone (Desyrel) 100 MG tablet Take 100 [...] therapy) Start: 02-11-2023 take 1 capsule by [facility] once daily in the morning [...] Comment on above: Take 1 capsule by [facility] twice daily. escitalopram 20 mg [...] Comment on above: Take 1 tablet by [facility] once daily. fluconazole 150 mg oral tablet (8 sources) Azole Antifungal Start: 02-07-20 End: 02-26-20 take 1 tablet by mouth once fluconazole (DIFLUCAN) 150 mg tablet 1 (one) tablet by mouth one time dose 1 tablet 1 02/06/2022 02/25/2023 Discontinued Comment on above: 1 (one) tablet by [facility] one time dose hydrOXYzine hydrochloride [...] Comment on above: Take 1 tablet by [facility] three times daily as needed. 10 ml [...] 02/25/2023 Discontinued Start: 08-23-2020 End: 02-25-2023 medroxyPROGESTERone (DEPO-IA OVERA) 150 mg/mL injection Indications: Excessive or [...] conditions (2 sources) Dysuria; Translations: [Dysuria] Episodic Headache; including migraine (2 sources) Headache; Translations: [Nonintractable headache, unspecified chronicity pattern, unspecified headache type] 01-27-2024 Episodic Hypertension complicating ; childbirth and the puerperium (1 source) Unspecified maternal hypertension, first trimester; Translations: [Unspecified maternal hypertension, first trimester] Onset: 09-16-2023 Chronic Menstrual disorders (8 sources) Irregular periods; Translations: [Irregular menstruation, unspecified] Onset: 06-02-2023 06-02-2023 Chronic Mood disorders (5 sources) Recurrent major depressive episodes, mild ; Translations: [Major depressive disorder, recurrent, mild] Onset: 08-08-2022 Chronic Nutritional deficiencies (2 sources) Serum iron low; Translations: [Iron deficiency] 01-27-2024 Episodic Other bone disease and musculoskeletal deformities (6 [...] UTERI] Onset: 02-13-2022 Episodic Other gastrointestinal disorders (3 sources) Constipation; Translations: [Constipation, unspecified] 01-27-2024 Episodic Other gastrointestinal disorders (1 source) Flatulence, [...] (BMI) 28.0-28.9, adult] Onset: 05-26-2022 Episodic Other and delivery including normal (2 sources) Third trimester ; Translations: [Encounter for supervision of normal , unspecified, third trimester] 01-27-2024 Episodic Other screening for suspected conditions (not mental disorders or infectious disease) (3 sources) No current problems or disability; Translations: [Encounter for other specified screening] Onset: 10-16-2023 10-07-2013 Episodic Other upper respiratory infections (1 source) Streptococcal sore throat; Translations: [Streptococcal pharyngitis] Onset: 05-26-2022 Episodic Residual codes; unclassified (1 source) Insomnia, unspecified; Translations: [Insomnia, unspecified] Onset: 06-04-2023 Episodic Residual codes; unclassified (2 sources) Gestation period, 33 weeks; Translations: [33 weeks gestation of ] 01-27-2024 Episodic Spondylosis; intervertebral disc disorders; other back problems (3 sources) Acute back pain with sciatica; Translations: [Lumbago with sciatica, left side] Onset: 02-25-2023 Episodic Sprains and strains (1 source) Sprain of left foot; Translations: [Unspecified sprain of left foot, initial encounter] Onset: 02-23-2022 Episodic Thyroid disorders (6 sources) Hypothyroidism; Translations: [Hypothyroidism, unspecified] Chronic Unclassified (1 source) [facility] video visit Onset: 10-16-2023 Past or Other [...] Name Value Interpretation Reference Range Facil ity Urinalysis macro (dipstick) panel (U)on 01-27-2024 Bilirubin, UA Negative Negative - 4(70) +++ mg/dL [facility] Blood, UA Negative Negative - 50 Pepito/mcL [facility] Clarity, UA Clear [facility] Color, UA Yellow [facility] Glucose, UA Negative Negative - 2000(110) ++++ mg/dL [facility] Interpretation and review of laboratory results Normal [facility] Ketones, UA Negative Negative - 160(16) ++++ mg/dL [facility] Leukocytes, UA Negative Negative - 500+++ Ilia/mcL [facility] Nitrite, UA Negative Negative - Positive [facility] pH, UA 5.5 5 - 9 [facility] Protein, UA Negative Negative - 2000(20) ++++ mg/dL [facility] Spec Grav, UA 1.020 1 - 1.03 [facility] Urobilinogen, UA 0.2 0.2 - 12 mg/dL [facility] CBC W Auto Differential pane l (Bld)on 01-19-2024 Basophils (Bld) [#/Vol] 10*3/uL Normal <0.11 [facility] Comment on above: Order Comment: Speci men Type: BLOOD SPECIMEN Ordering Facility: External Submitter Address: , , Performed By: #### 5 5454-3 #### [facility] CLIA [id number] [address] [place] [address] [place] Basophils/100 WBC (Bld) 0.2 % Normal [facility] Comment on above: Order Comment: Speci men Type: BLOOD SPECIMEN Ordering Facility: External Submitter Address: , , Performed By: #### 5 5454-3 #### [facility] CLIA [id number] [address] [place] [address] [place] Differential cell count method Nom (Bld) Auto Normal [facility] Comment on above: Order Comment: Speci men Type: BLOOD SPECIMEN Ordering Facility: External Submitter Address: , , Performed By: #### 5 5154-3 #### [facility] CLIA [id number] [address] [place] [address] [place] Eosinophils (Bld) [#/Vol] 0.06 10*3/uL Normal <0.46 [facility] Comment on above: Order Comment: Speci men Type: BLOOD SPECIMEN Ordering Facility: External Submitter Address: , , Performed By: #### 5 5454-3 #### [facility] CLIA [id number] [address] [place] [address] [place] Eosinophils/100 WBC (Bld) 0.6 % Normal [facility] Comment on above: Order Comment: Speci men Type: BLOOD SPECIMEN Ordering Facility: External Submitter Address: , , Performed By: #### 5 5454-3 #### [facility] CLIA [id number] [address] [place] [address] [place] Erythrocyte distribution width (RBC) [Ratio] 13.3 % Normal 11.5-15.0 [facility] Comment on above: Order Comment: Speci men Type: BLOOD SPECIMEN Ordering Facility: External Submitter Address: , , Performed By: #### 5 5454-3 #### [facility] CLIA [id number] [address] [place] [address] [place] Hematocrit (Bld) [Volume fraction] 32.8 % Low 36.0-46.0 [facility] Comment on above: Order Comment: Speci men Type: BLOOD SPECIMEN Ordering Facility: External Submitter Address: , , Performed By: #### 5 5454-3 #### [facility] CLIA [id number] [address] [place] [address] [place] Hemoglobin (Bld) [Mass/Vol] 10.7 g/dL Low 11.5-15.5 [facility] Comment on above: Order Comment: Speci men Type: BLOOD SPECIMEN Ordering Facility: External Submitter Address: , , Performed By: #### 5 5454-3 #### [facility] CLIA [id number] [address] [place] [address] [place] Immature granulocytes (Bld) [#/Vol] 0.05 10*3/uL Normal <0.10 [facility] Comment on above: Order Comment: Speci men Type: BLOOD SPECIMEN Ordering Facility: External Submitter Address: , , Performed By: #### 5 5454-3 #### [facility] CLIA [id number] [address] [place] [address] [place] Immature granulocytes/100 WBC (Bld) 0.5 % Normal [facility] Comment on above: Order Comment: Speci men Type: BLOOD SPECIMEN Ordering Facility: External Submitter Address: , , Performed By: #### 5 5454-3 #### [facility] CLIA [id number] [address] [place] [address] [place] Lymphocytes (Bld) [#/Vol] 1.55 10*3/uL Normal 1.00-4.00 [facility] Comment on above: Order Comment: Speci men Type: BLOOD SPECIMEN Ordering Facility: External Submitter Address: , , Performed By: #### 5 5454-3 #### [facility] CLIA [id number] [address] [place] [address] [place] Lymphocytes/100 WBC (Bld) 15.1 % Normal [facility] Comment on above: Order Comment: Speci men Type: BLOOD SPECIMEN Ordering Facility: External Submitter Address: , , Performed By: #### 5 5454-3 #### [facility] CLIA [id number] [address] [place] [address] [place] MCH (RBC) [Entitic mass] 27.8 pg Normal 26.0-34.0 [facility] Comment on above: Order Comment: Speci men Type: BLOOD SPECIMEN Ordering Facility: External Submitter Address: , , Performed By: #### 5 5454-3 #### [facility] CLIA [id number] [address] [place] [address] [place] MCHC (RBC) [Mass/Vol] 32.6 g/dL Normal 30.5-36.0 [facility] Comment on above: Order Comment: Speci men Type: BLOOD SPECIMEN Ordering Facility: External Submitter Address: , , Performed By: #### 5 5454-3 #### [facility] CLIA [id number] [address] [place] [address] [place] MCV (RBC) [Entitic vol] 85.2 fL Normal 80.0-100.0 [facility] Comment on above: Order Comment: Speci men Type: BLOOD SPECIMEN Ordering Facility: External Submitter Address: , , Performed By: #### 5 5454-3 #### [facility] CLIA [id number] [address] [place] [address] [place] Monocytes (Bld) [#/Vol] 0.77 10*3/uL Normal <0.87 [facility] Comment on above: Order Comment: Speci men Type: BLOOD SPECIMEN Ordering Facility: External Submitter Address: , , Performed By: #### 5 5454-3 #### [facility] CLIA [id number] [address] [place] [address] [place] Monocytes/100 WBC (Bld) 7.5 % Normal [facility] Comment on above: Order Comment: Speci men Type: BLOOD SPECIMEN Ordering Facility: External Submitter Address: , , Performed By: #### 5 5454-3 #### [facility] CLIA [id number] [address] [place] [address] [place] Neutrophils (Bld) [#/Vol] 7.81 10*3/uL High 1.45-7.50 [facility] Comment on above: Order Comment: Speci men Type: BLOOD SPECIMEN Ordering Facility: External Submitter Address: , , Performed By: #### 5 5454-3 #### [facility] CLIA [id number] [address] [place] [address] [place] Neutrophils/100 WBC (Bld) 76.1 % Normal [facility] Comment on above: Order Comment: Speci men Type: BLOOD SPECIMEN Ordering Facility: External Submitter Address: , , Performed By: #### 5 5454-3 #### [facility] CLIA [id number] [address] [place] [address] [place] Nucleated RBC (Bld) [#/Vol] 10*3/uL Normal <0.01 [facility] Comment on above: Order Comment: Speci men Type: BLOOD SPECIMEN Ordering Facility: External Submitter Address: , , Performed By: #### 5 5454-3 #### [facility] CLIA [id number] [address] [place] [address] [place] Nucleated RBC/100 WBC (Bld) [Ratio] 0.0 /100 WBC Normal [facility] Comment on above: Order Comment: Speci men Type: BLOOD SPECIMEN Ordering Facility: External Submitter Address: , , Performed By: #### 5 5454-3 #### [facility] CLIA [id number] [address] [place] [address] [place] Platelet mean volume (Bld) [Entitic vol] 11.3 fL Normal 9.0-12.7 [facility] Comment on above: Order Comment: Speci men Type: BLOOD SPECIMEN Ordering Facility: External Submitter Address: , , Performed By: #### 5 5454-3 #### [facility] CLIA [id number] [address] [place] [address] [place] Platelets (Bld) [#/Vol] 172 10*3/uL Normal 150-400 [facility] Comment on above: Order Comment: Speci men Type: BLOOD SPECIMEN Ordering Facility: External Submitter Address: , , Performed By: #### 5 5454-3 #### [facility] CLIA [id number] [address] [place] [address] [place] RBC (Bld) [#/Vol] 3.85 10*6/uL Low 3.90-5.20 [facility] Comment on above: Order Comment: Speci men Type: BLOOD SPECIMEN Ordering Facility: External Submitter Address: , , Performed By: #### 5 5454-3 #### [facility] IA [id number] [address] [place] [address] [place] WBC (Bld) [#/Vol] 10.26 10*3/uL Normal 3.70-11.00 [facility] Comment on above: Order Comment: Speci men Type: BLOOD SPECIMEN Ordering Facility: External Submitter Address: , , Performed By: #### 5 5454-3 #### [facility] IA [id number] [address] [place] [address] [place] T4 Free SerPl-mCncon 024 Free T4 [Mass/Vol] 0.9 ng/dL Normal 0.9-1.7 [facility] Comment on above: Order Comment: Speci men Type: BLOOD SPECIMEN Ordering Facility: [facility] AND CHIEF INFORMATION OFFICER Karina Address: [address] [place] [address] , [place] [address] Performed By: #### 3 024-7, 3016-3 #### [facility] IA [id number] [address] [place] [address] [place] TSH SerPl-aCncon 01-05-2024 TSH Qn 1.220 m[IU]/L Normal 0.270-4.200 [facility] Comment on above: Order Comment: Speci men Type: BLOOD SPECIMEN Ordering Facility: External Submitter Address: , , Result Comment: If t he patient is , TSH reference range varies by gestational period: First Trimester (weeks 9-12): 0.180-2.990 mIU/L Second Trimester: 0.110-3.980 mIU/L Third Trimester: 0.480-4.710 mIU/L Manuel L, et al. A Practical Approach for the Verifications and Determination of Site- and Trimester-Specific Reference Intervals for Thyroid Function tests in . Thyroid, 2019:29:3:412-420. Emanuel Nassar et al. 2017 Guidelines of the [place] [employer] for the Diagnosis and Management of Thyroid Disease during and the . Thyroid, 2017:27:3:315-389. Performed By: #### 5 5454-3 #### [facility] CLIA [id number] [facility] [place] [address] [place] T4 Free SerPl-mCncon 024 Free T4 [Mass/Vol] 1.1 ng/dL Normal 0.9-1.7 [facility] Comment on above: Order Comment: Specbertha mares Type: BLOOD SPECIMEN Ordering Facility: [facility] VICE PRESIDENT AND CHIEF INFORMATION OFFICER [place] Address: [facility] [address] [place] [address] Performed By: #### 3 024-7, 3016-3 #### [facility] CLIA [id number] [address] [place] [address] [place] TSH SerPl-aCncon 12-08-2023 TSH Qn 0.607 m[IU]/L Normal 0.270-4.200 [facility] Comment on above: Order Comment: Speci vishnu Type: BLOOD SPECIMEN Ordering Facility: [facility] Address: [facility] [address] [place] [address] Result Comment: If t he patient is , TSH reference range varies by gestational period: First Trimester (weeks 9-12): 0.180-2.990 mIU/L Second Trimester: 0.110-3.980 mIU/L Third Trimester: 0.480-4.710 mIU/L Manuel Grayson et al. A Practical Approach for the Verifications and Determination of Site- and Trimester-Specific Reference Intervals for Thyroid Function tests in . Thyroid, 2019:29:3:412-420. Emanuel Nassar et al. 2017 Guidelines of the [place] Thy[employer] for the Diagnosis and Management of Thyroid Disease during and the . Thyroid, 2017:27:3:315-389. Performed By: #### 3 024-7, 3016-3 #### [facility] CLIA [id number] [address] [place] [address] [place] CBC W Auto Differential pane l (Bld)on 11-20-2023 Basophils (Bld) [#/Vol] 0.04 10*3/uL Normal <0.11 [facility] Comment on above: Order Comment: Speci men Type: BLOOD SPECIMEN Ordering Facility: [facility]ICE PRESIDENT AND CHIEF INFORMATION OFFICER [place] Address: [address] [place] [address] Performed By: #### 5 7021-8 #### [facility] CLIA [id number] [address] [place] [address] 17748 Basophils/100 WBC (Bld) 0.6 % Normal [facility] Comment on above: Order Comment: Speci men Type: BLOOD SPECIMEN Ordering Facility: [facility] [employer] PRES[employer] AND CHIEF INFORMATION OFFIC[employer] [place] Address: [address] [place] [address] Performed By: #### 5 7021-8 #### [facility] CLIA [id number] [address] [place] [address] 08638 Differential cell count method Nom (Bld) Auto Normal [facility] Comment on above: Order Comment: Speci men Type: BLOOD SPECIMEN Ordering Facility: [facility] VICE PRESIDENT AND [employer]IEF INFORMATION OFFIC[employer] [place] Address: [address] [place] [address] Performed By: #### 5 7021-8 #### [facility] CLIA [id number] [address] [place] [address] 02429 Eosinophils (Bld) [#/Vol] 0.05 10*3/uL Normal <0.46 [facility] Comment on above: Order Comment: Speci men Type: BLOOD SPECIMEN Ordering Facility: [facility] VICE PRESIDENT AND [employer]IEF INFORMATION OFFIC[employer] [place] Address: [address] [place] [address] Performed By: #### 5 7021-8 #### [facility] CLIA [id number] [address] [place] [address] 95892 Eosinophils/100 WBC (Bld) 0.7 % Normal [facility] Comment on above: Order Comment: Speci men Type: BLOOD SPECIMEN Ordering Facility: [facility] Address: [address] [place] [address] Performed By: #### 5 7021-8 #### [facility] CLIA [id number] [address] [place] [address] 09508 Erythrocyte distribution width (RBC) [Ratio] 12.9 % Normal 11.5-15.0 [facility] Comment on above: Order Comment: Speci men Type: BLOOD SPECIMEN Ordering Facility: [facility] Address: [address] [place] [address] Performed By: #### 5 7021-8 #### [facility] CLIA [id number] [address] [place] [address] 35394 Hematocrit (Bld) [Volume fraction] 35.0 % Low 36.0-46.0 [facility] Comment on above: Order Comment: Speci men Type: BLOOD SPECIMEN Ordering Facility: [facility] Address: [address] [place] [address] Performed By: #### 5 7021-8 #### [facility] CLIA [id number] [address] [place] [address] 21653 Hemoglobin (Bld) [Mass/Vol] 11.4 g/dL Low 11.5-15.5 [facility] Comment on above: Order Comment: Speci men Type: BLOOD SPECIMEN Ordering Facility: [facility] Address: [address] [place] [address] Performed By: #### 5 7021-8 #### [facility] CLIA [id number] [address] [place] [address] 79380 Immature granulocytes (Bld) [#/Vol] 10*3/uL Normal <0.10 [facility] Comment on above: Order Comment: Speci men Type: BLOOD SPECIMEN [facility]FORMATION [facility] [place] Address: [address] [place] [id number] Performed By: #### 5 7021-8 #### [facility] CLIA [id number] [address] [place] [address] Immature granulocytes/100 WBC (Bld) 0.3 % Normal [facility] Comment on above: Order Comment: Speci men Type: BLOOD SPECIMEN Ordering Facility: [facility]-SENIOR VICE PRESIDENT AND CHIEF INFORMATION OFFICER [place] Address: [address] [place] [address] Performed By: #### 5 7021-8 #### [facility] CLIA [id number] [address] [place] [address] 36315 Lymphocytes (Bld) [#/Vol] 1.25 10*3/uL Normal 1.00-4.00 [facility] Comment on above: Order Comment: Speci men Type: BLOOD SPECIMEN Ordering Facility: [facility] Address: [facility] [address] [place] [address] Performed By: #### 5 7021-8 #### [facility] CLIA [id number] [address] [place] [address] 60929 Lymphocytes/100 WBC (Bld) 18.3 % Normal [facility] Comment on above: Order Comment: Speci men Type: BLOOD SPECIMEN Ordering Facility: [facility] Address: [facility] [address] [place] [address] Performed By: #### 5 7021-8 #### [facility] CLIA [id number] [address] [place] [address] 07107 MCH (RBC) [Entitic mass] 29.9 pg Normal 26.0-34.0 [facility] Comment on above: Order Comment: Speci men Type: BLOOD SPECIMEN Ordering Facility: [facility] Address: [address] [place] [id number] Performed By: #### 5 7021-8 #### [facility] CLIA [id number] [address] [place] [address] 93648 MCHC (RBC) [Mass/Vol] 32.6 g/dL Normal 30.5-36.0 [facility] Comment on above: Order Comment: Speci men Type: BLOOD SPECIMEN Ordering Facility: [facility] VICE PRESIDENT AND CHIEF INFORMATION OFFIC[employer] [place] Address: [address] [place] [address] Performed By: #### 5 7021-8 #### [facility] CLIA [id number] [address] [place] [address] MCV (RBC) [Entitic vol] 91.9 fL Normal 80.0-100.0 [facility] Comment on above: Order Comment: Speci men Type: BLOOD SPECIMEN Ordering Facility: [facility] OBSENIOR VICE PRESIDENT AND CHIEF INFORMATION OFFICER [place] Address: [address] [place] [address] Performed By: #### 5 7021-8 #### [facility] CLIA [id number] [address] [place] [address] 43380 Monocytes (Bld) [#/Vol] 0.52 10*3/uL Normal <0.87 [facility] Comment on above: Order Comment: Speci men Type: BLOOD SPECIMEN Ordering Facility: [facility] Address: [address] [place] [address] Performed By: #### 5 7021-8 #### [facility] CLIA [id number] [address] [place] [address] 98328 Monocytes/100 WBC (Bld) 7.6 % Normal [facility] Comment on above: Order Comment: Speci men Type: BLOOD SPECIMEN [facility] Address: [address] [place] [address] Performed By: #### 5 7021-8 #### [facility] CLIA [id number] [address] [place] [address] 88560 Neutrophils (Bld) [#/Vol] 4.94 10*3/uL Normal 1.45-7.50 [facility] Comment on above: Order Comment: Speci men Type: BLOOD SPECIMEN Ordering Facility: [facility]-SENIOR VICE PRESIDENT AND CHIEF INFORMATION OFFICER [place] Address: [address] [place] [id number] Performed By: #### 5 7021-8 #### [facility] CLIA [id number] [address] [place] [address] Neutrophils/100 WBC (Bld) 72.5 % Normal [facility] Comment on above: Order Comment: Speci men Type: BLOOD SPECIMEN Ordering Facility: [facility] Address: [address] [place] [address] Performed By: #### 5 7021-8 #### [facility] CLIA [id number] [address] [place] [address] 04259 Nucleated RBC (Bld) [#/Vol] 10*3/uL Normal <0.01 [facility] Comment on above: Order Comment: Speci men Type: BLOOD SPECIMEN Ordering Facility: [facility]-SENIOR VICE PRESIDENT AND CHIEF INFORMATION OFFIC[employer] [place] Address: [facility] [place] [address] Performed By: #### 5 7021-8 #### [facility] CLIA [id number] [address] [place] [address] 68998 Nucleated RBC/100 WBC (Bld) [Ratio] 0.0 /100 WBC Normal [facility] Comment on above: Order Comment: Speci men Type: BLOOD SPECIMEN Ordering Facility: [facility] Address: [facility] [place] [address] Performed By: #### 5 7021-8 #### [facility] CLIA [id number] [address] [place] [address] 73848 Platelet mean volume (Bld) [Entitic vol] 11.4 fL Normal 9.0-12.7 [facility] Comment on above: Order Comment: Speci men Type: BLOOD SPECIMEN [facility] Address: [facility] [place] [address] Performed By: #### 5 7021-8 #### [facility] CLIA [id number] [address] [place] [address] Platelets (Bld) [#/Vol] 167 10*3/uL Normal 150-400 [facility] Comment on above: Order Comment: Speci men Type: BLOOD SPECIMEN Ordering Facility: [facility]-SENIOR VICE PRESIDENT AND CHIEF INFORMATION OFFIC[employer] [place] Address: [address] [place] [address] Performed By: #### 5 7021-8 #### [facility] CLIA [id number] [address] [place] [address] 40968 RBC (Bld) [#/Vol] 3.81 10*6/uL Low 3.90-5.20 [facility] Comment on above: Order Comment: Speci men Type: BLOOD SPECIMEN Ordering Facility: [facility]-SENIOR VICE PRESIDENT AND CHIEF INFORMATION OFFIC[employer] [place] Address: [address] [place] [address] Performed By: #### 5 7021-8 #### [facility] CLIA [id number] [address] [place] [address] 55860 WBC (Bld) [#/Vol] 6.82 10*3/uL Normal 3.70-11.00 [facility] Comment on above: Order Comment: Speci men Type: BLOOD SPECIMEN Ordering Facility: [facility]-SENIOR VICE PRESIDENT AND CHIEF INFORMATION OFFIC[employer] [place] Address: [facility] [place] [address] Performed By: #### 5 7021-8 #### [facility] CLIA [id number] [address] [place] [address] 42171 GESTATIONAL GLUCOSE SCREEN, 1-HOUR, 50 GRAM, NON-FASTINGon 11-20-2023 Glucose [Mass/Vol] 97 mg/dL Normal 74-134 [facility] Comment on above: Order Comment: Speci men Type: BLOOD SPECIMEN Ordering Facility: [facility]-SENIOR VICE PRESIDENT AND CHIEF INFORMATION OFFICER [place] Address: [address] [place] [address] Result Comment: [facility] Congress of Obstetricians and Gynecologists (Alma/Adrián) guidelines state a gestational diabetes mellitus positive screen is made, in women not previously diagnosed with overt diabetes, when the 1 hr plasma glucose level is equal to or above 140 mg/dL. The [facility] Supervisor [employer] [facility] [place] recommends a 135 mg/dL cutoff. Performed By: #### G LTGST #### [facility] CLIA [id number] [address] [place] [address] [place] T4 Free SerPl-mCncon 024 Free T4 [Mass/Vol] 1.0 ng/dL Normal 0.9-1.7 [facility] Comment on above: Order Comment: Speci men Type: BLOOD SPECIMEN Ordering Facility: [facility] VICE PRESIDENT AND CHIEF INFORMATION OFFICER [place] Address: [facility] [address] [place] [address] Performed By: #### 3 024-7, 3016-3 #### [facility] CLIA [id number] [address] [place] [address] [place] TSH SerPl-aCncon 10-22-2023 TSH Qn 4.510 m[IU]/L High 0.270-4.200 [facility] Comment on above: Order Comment: Speci men Type: BLOOD SPECIMEN Ordering Facility: [facility] VICE PRESIDENT AND CHIEF INFORMATION OFFICER [place] Address: [facility] [address] [place] [address] Result Comment: If t he patient is , TSH reference range varies by gestational period: First Trimester (weeks 9-12): 0.180-2.990 mIU/L Second Trimester: 0.110-3.980 mIU/L Third Trimester: 0.480-4.710 mIU/L Manuel Grayson et al. A Practical Approach for the Verifications and Determination of Site- and Trimester-Specific Reference Intervals for Thyroid Function tests in . Thyroid, 2019:29:3:412-420. Emanuel Nassar, et al. 2017 Guidelines of the [place] Thyroid Association for the Diagnosis and Management of Thyroid Disease during and the . Thyroid, 2017:27:3:315-389. Performed By: #### 3 024-7, 6-3 #### [facility] CLIA [id number] [facility] [place] [id number] [place] CBC W Auto Differential pane l (Bld)on 08-08-2023 Basophils (Bld) [#/Vol] 10*3/uL Normal <0.11 [facility] Comment on above: Order Comment: Speci men Type: BLOOD SPECIMEN Ordering Facility: [facility] Address: , , Performed By: #### 5 7021-8 #### [facility] CLIA [id number] [address] [place] [address] 62439 Basophils/100 WBC (Bld) 0.3 % Normal [facility] Comment on above: Order Comment: Speci men Type: BLOOD SPECIMEN Ordering Facility: [facility] Address: , , Performed By: #### 5 7021-8 #### [facility] CLIA [id number] [address] [place] [address] 31226 Differential cell count method Nom (Bld) Auto Normal [facility] Comment on above: Order Comment: Speci men Type: BLOOD SPECIMEN Ordering Facility: [facility] Address: , , Performed By: #### 5 7021-8 #### [facility] CLIA [id number] [address] [place] [address] 00795 Eosinophils (Bld) [#/Vol] 0.06 10*3/uL Normal <0.46 [facility] Comment on above: Order Comment: Speci men Type: BLOOD SPECIMEN Ordering Facility: [facility] Address: , , Performed By: #### 5 7021-8 #### [facility] CLIA [id number] [address] [place] [address] 18303 Eosinophils/100 WBC (Bld) 0.9 % Normal [facility] Comment on above: Order Comment: Speci men Type: BLOOD SPECIMEN Ordering Facility: [facility] Address: , , Performed By: #### 5 7021-8 #### [facility] CLIA [id number] [address] [place] [address] 66273 Erythrocyte distribution width (RBC) [Ratio] 13.7 % Normal 11.5-15.0 [facility] Comment on above: Order Comment: Speci men Type: BLOOD SPECIMEN Ordering Facility: [facility] Address: , , Performed By: #### 5 7021-8 #### [facility] CLIA [id number] [address] [place] [address] 06847 Hematocrit (Bld) [Volume fraction] 40.1 % Normal 36.0-46.0 [facility] Comment on above: Order Comment: Speci men Type: BLOOD SPECIMEN Ordering Facility: [facility] Address: , , Performed By: #### 5 7021-8 #### [facility] CLIA [id number] [address] [place] [address] 91310 Hemoglobin (Bld) [Mass/Vol] 13.4 g/dL Normal 11.5-15.5 [facility] Comment on above: Order Comment: Speci men Type: BLOOD SPECIMEN Ordering Facility: [facility] Address: , , Performed By: #### 5 7021-8 #### [facility] CLIA [id number] [address] [place] [address] 32200 Immature granulocytes (Bld) [#/Vol] 10*3/uL Normal <0.10 [facility] Comment on above: Order Comment: Speci men Type: BLOOD SPECIMEN Ordering Facility: [facility] Address: , , Performed By: #### 5 7021-8 #### [facility] CLIA [id number] [address] [place] [address] 94334 Immature granulocytes/100 WBC (Bld) 0.3 % Normal [facility] Comment on above: Order Comment: Speci men Type: BLOOD SPECIMEN Ordering Facility: [facility] Address: , , Performed By: #### 5 7021-8 #### [facility] CLIA [id number] [address] [place] [address] 29320 Lymphocytes (Bld) [#/Vol] 1.67 10*3/uL Normal 1.00-4.00 [facility] Comment on above: Order Comment: Speci men Type: BLOOD SPECIMEN Ordering Facility: [facility] Address: , , Performed By: #### 5 7021-8 #### [facility] CLIA [id number] [address] [place] [address] 56445 Lymphocytes/100 WBC (Bld) 24.9 % Normal [facility] Comment on above: Order Comment: Speci men Type: BLOOD SPECIMEN Ordering Facility: [facility] Address: , , Performed By: #### 5 7021-8 #### [facility] CLIA [id number] [address] [place] [address] 39590 MCH (RBC) [Entitic mass] 31.1 pg Normal 26.0-34.0 [facility] Comment on above: Order Comment: Speci men Type: BLOOD SPECIMEN Ordering Facility: [facility] Address: , , Performed By: #### 5 7021-8 #### [facility] CLIA [id number] [address] [place] [address] 98907 MCHC (RBC) [Mass/Vol] 33.4 g/dL Normal 30.5-36.0 [facility] Comment on above: Order Comment: Speci men Type: BLOOD SPECIMEN Ordering Facility: [facility] Address: , , Performed By: #### 5 7021-8 #### [facility] CLIA [id number] [address] [place] [address] 93010 MCV (RBC) [Entitic vol] 93.0 fL Normal 80.0-100.0 [facility] Comment on above: Order Comment: Speci men Type: BLOOD SPECIMEN Ordering Facility: [facility] Address: , , Performed By: #### 7021-8 #### [facility] CLIA [id number] [address] [place] [address] 29233 Monocytes (Bld) [#/Vol] 0.50 10*3/uL Normal <0.87 [facility] Comment on above: Order Comment: Speci men Type: BLOOD SPECIMEN Ordering Facility: [facility] Address: , , Performed By: #### 1 0321-8 #### [facility] CLIA [id number] [address] [place] [address] 86723 Monocytes/100 WBC (Bld) 7.5 % Normal [facility] Comment on above: Order Comment: Speci men Type: BLOOD SPECIMEN Ordering Facility: [facility] Address: , , Performed By: #### 8 3821-8 #### [facility] CLIA [id number] [address] [place] [address] 44194 Neutrophils (Bld) [#/Vol] 4.44 10*3/uL Normal 1.45-7.50 [facility] Comment on above: Order Comment: Speci men Type: BLOOD SPECIMEN Ordering Facility: [facility]mitter Address: , , Performed By: #### 5 7021-8 #### [facility] CLIA [id number] [address] [place] [address] 63547 Neutrophils/100 WBC (Bld) 66.1 % Normal [facility] Comment on above: Order Comment: Speci men Type: BLOOD SPECIMEN Ordering Facility: External [facility]mitter Address: , , Performed By: #### 5 7021-8 #### [facility] CLIA [id number] [address] [place] [address] 97401 Nucleated RBC (Bld) [#/Vol] 10*3/uL Normal <0.01 [facility] Comment on above: Order Comment: Speci men Type: BLOOD SPECIMEN Ordering Facility: External Submitter Address: , , Performed By: #### 5 7021-8 #### [facility] CLIA [id number] [address] [place] [address] 44551 Nucleated RBC/100 WBC (Bld) [Ratio] 0.0 /100 WBC Normal [facility] Comment on above: Order Comment: Speci men Type: BLOOD SPECIMEN Ordering Facility: External Submitter Address: , , Performed By: #### 5 7021-8 #### [facility] CLIA [id number] [address] [place] [address] 23963 Platelet mean volume (Bld) [Entitic vol] 12.1 fL Normal 9.0-12.7 [facility] Comment on above: Order Comment: Speci men Type: BLOOD SPECIMEN Ordering Facility: External Submitter Address: , , Performed By: #### 5 7021-8 #### [facility] CLIA [id number] [address] [place] [address] 81437 Platelets (Bld) [#/Vol] 148 10*3/uL Low 150-400 [facility] Comment on above: Order Comment: Speci men Type: BLOOD SPECIMEN Ordering Facility: External Submitter Address: , , Performed By: #### 5 7021-8 #### [facility] CLIA [id number] [address] [place] [address] 34131 RBC (Bld) [#/Vol] 4.31 10*6/uL Normal 3.90-5.20 [facility] Comment on above: Order Comment: Speci men Type: BLOOD SPECIMEN Ordering Facility: External Submitter Address: , , Performed By: #### 5 7021-8 #### [facility] CLIA [id number] [address] [place] [address] 57773 WBC (Bld) [#/Vol] 6.71 10*3/uL Normal 3.70-11.00 [facility] Comment on above: Order Comment: Speci men Type: BLOOD SPECIMEN Ordering Facility: External Submitter Address: , , Performed By: #### 5 7021-8 #### [facility] CLIA [id number] [address] [place] [address] 54612 HBV surface Ag Ser Qlon 07-20 HBV surface Ag Ql (S) Negative Normal Negative [facility] Comment on above: Order Comment: Speci [facility] Type: BLOOD SPECIMEN Ordering Facility: External Submitter Address: , , Performed By: #### 5 5454-3 #### [facility] CLIA [id number] [address] [place] [address] [place] HCV Ab Ser Qlon 08-08-2023 HCV Ab Ql (S) Negative Normal Negative [facility] Comment on above: Order Comment: Roycei men Type: BLOOD SPECIMEN Ordering Facility: External Submitter Address: , , Result Comment: The result suggests no evidence of active infection with Hepatitis C virus. Should recent infection be suspected, repeat testing may be considered 4-6 weeks after this draw. Performed By: #### 1 6128-1 #### [facility] CLIA [id number] [address] [place] [address] [place] HIV 1+2 Ab IA Qlon HIV 1 and 2 Ab IA.rapid Nom (S/P/Bld) Normal [facility] Comment on above: Order Comment: Speci men Type: BLOOD SPECIMEN Ordering Facility: External Submitter Address: , , Result Comment: Test not indicated. Performed By: #### 5 5454-3 #### [facility] CLIA [id number] [address] [place] [address] [place] HIV 1+2 Ab+HIV1 p24 Ag IA Ql Non-Reactive Normal Nonreactive [facility] Comment on above: Order Comment: Speci men Type: BLOOD SPECIMEN Ordering Facility: External Submitter Address: , , Performed By: #### 5 5454-3 #### [facility] CLIA [id number] [address] [place] [address] [place] HIV immunoassay testing algorithm interpretation (S/P/Bld) [Interp] Normal [facility] Comment on above: Order Comment: Speci men Type: BLOOD SPECIMEN Ordering Facility: External Submitter Address: , , Result Comment: No e vidence of HIV-1 or HIV-2 infection. Should recent infection be suspected, repeat testing may be considered 2-3 weeks after this draw. [place] Rev. Code 3701.243(E): This information has been [...] diagnoses. Performed By: #### 5 5454-3 #### [facility] CLIA [id number] [address] [place] [address] [place] HbA1c (Bld)on 08-08-2023 Average glucose Estimated from glycated hemoglobin (Bld) [Mass/Vol] 105 mg/dL Normal [facility] Comment on above: Order Comment: Speci men Type: BLOOD SPECIMEN Ordering Facility: External Submitter Address: , , Result Comment: eAG: (Estimated average glucose) is a calculated value from HgbA1c and is software sales representative of the average blood glucose level in the last 2-3 month period. Performed By: #### 5 5454-3 #### [facility] CLIA [id number] [address] [place] [address] [place] HbA1c (Bld) [Mass fraction] 5.3 % Normal 4.3-5.6 [facility] Comment on above: Order Comment: Specbertha [facility] Type: BLOOD SPECIMEN Ordering Facility: External Submitter Address: , , Result Comment: Amer ican Diabetes Association guidelines indicate that patients with HgbA1c in the range 5.7-6.4% are at increased risk for development of diabetes, and intervention by lifestyle modification may be beneficial. HgbA1c greater or equal to 6.5% is considered diagnostic of diabetes. Performed By: #### 5 5454-3 #### [facility] CLIA [id number] [facility] [place] [address] [place] RPR Ser Qlon 08-08-2023 Reagin Ab RPR Ql (S) Non-Reactive Normal Nonreactive [facility] Comment on above: Order Comment: Roycei vishnu Type: BLOOD SPECIMEN Ordering Facility: [facility] OB-SENIOR VICE PRESIDENT AND CHIEF INFORMATION OFFICER [place] Address: [address] [place] [address] [address]A [address], [place] [address] Result Comment: Rapi d plasma reagin (RPR) test detects non-treponemal antibodies. RPR may be reactive in a variety of infectious and non-infectious conditions. Correlation with clinical picture and with treponemal antibody results is required for final interpretation. Performed By: #### 3 024-7, 3016-3 #### [facility] CLIA [id number] [address] [place] [id number] [place] RUBELLA IGG ANTIBODYon 08-07 RUBELLA IGG AB, QUAL Positive Normal Positive [facility] Comment on above: Order Comment: Speci men Type: BLOOD SPECIMEN Ordering Facility: [facility] OB-SENIOR VICE PRESIDENT AND CHIEF INFORMATION OFFICER [place] Address: [address] [place], [place] [address] [place], [place] [address] Result Comment: The result suggests recent or past exposure to Rubella virus or history of Rubella vaccination. Positive result may also be seen due to presence of passively-transferred antibodies. Please correlate with patient's history. Performed By: #### 3 024-7, 3016-3 #### [facility] CLIA [id number] [facility] [address] OF [facility] TYPE + SCREENon 08-08-2023 ABO A Normal [facility] Comment on above: Order Comment: Speci men Type: BLOOD SPECIMEN Ordering Facility: External Submitter Address: , , Performed By: #### T SCR #### [facility] CLIA [id number] [facility] [address] OF [place] HISTORICAL AB SCR STATUS Negative Normal [facility] Comment on above: Order Comment: Speci men Type: BLOOD SPECIMEN Ordering Facility: External Submitter Address: , , Performed By: #### T SCR #### [facility] CLIA [id number] [facility] [place] [address] [place] Rh Nom (Bld) Positive Normal [facility] Comment on above: Order Comment: Speci men Type: BLOOD SPECIMEN Ordering Facility: External Submitter Address: , , Performed By: #### T SCR #### [facility] CLIA [id number] [facility] [place] [address] [place] TYPE AND SCREEN EXPIRATION 08/11/2023 23:59 Normal [facility] Comment on above: Order Comment: Speci men Type: BLOOD SPECIMEN Ordering Facility: External Submitter Address: , , Performed By: #### T SCR #### [facility] CLIA [id number] [address] [place] [address] [place] B-HCG SerPl-aCncon 4 HCG.beta subunit Qn m[IU]/mL Normal <5.0 [facility] Comment on above: Order Comment: Speci men Type: BLOOD SPECIMEN Ordering Facility: External Submitter Address: , , Result Comment: Dianne logan Performed By: #### 5 5454-3 #### [facility] CLIA [id number] [address] [place] [id number] [facility] CNPBritt 05-16-2023 CNPN Telephone (HEMASA) JESSEE ALMODOVAR ([id number]) 1990 [facility] Date Time Provider Department 05/16/23 RONI DUMAS During your visit today, we recorded the following information about you: Allergies As of Date: 05/16/2023 (No Known Allergies) Date Reviewed: 04/11/2023 Reviewed by: Macy Jones APRN.LEASING PROPERTY MANAGER - Fully Assessed Reason for Visit: Lab Orders [1688] Primary Visit Diagnosis:Possible , not confirmed [Z32.00] Order(s):HCG QUANTITATIVE [SQHCGQT] Order #: [id number] FUTURE Prescriptions as of 05/16/2023 - doxycycline [...] Status:Closed by RONI DUMAS on 05/16/23 Normal [facility] TOX SCREEN ROUT URon 024 Amphetamines Confirm (U) [Mass/Vol] Negative Normal Negative [facility] Comment on above: Order Comment: Speci men Type: BLOOD SPECIMEN Ordering Facility: [facility] OB-SENIOR VICE PRESIDENT AND CHIEF INFORMATION OFFICER [place] Address: [address] [place] [address] , [place] [address] Result Comment: Cuto ff threshold at 1000 ng/mL. Performed By: #### 3 024-7, 3016-3 #### [facility] CLIA [id number] [address] [place] [address] [place] BARBITURATES, URINE Negative Normal Negative [facility] Comment on above: Order Comment: Speci men Type: BLOOD SPECIMEN Ordering Facility: [facility] OB-SENIOR VICE PRESIDENT AND CHIEF INFORMATION OFFICER [place] Address: [facility] [address] [place] [address] Result Comment: Cuto ff threshold at 200 ng/mL. Performed By: #### 3 024-7, 3016-3 #### [facility] CLIA [id number] [facility] [place] [address] [place] BENZODIAZEPINES, UR Negative Normal Negative [facility] Comment on above: Order Comment: Speci men Type: BLOOD SPECIMEN Ordering Facility: [facility] OB-SENIOR VICE PRESIDENT AND CHIEF INFORMATION OFFICER [place] Address: [facility] [address] [place] [address] Result Comment: Cuto ff threshold at 200 ng/mL. Performed By: #### 3 024-7, 3016-3 #### [facility] CLIA [id number] [address] [place] [address] [place] Cannabinoids Screen Ql (U) Negative Normal Negative [facility] Comment on above: Order Comment: Speci men Type: BLOOD SPECIMEN Ordering Facility: [facility] OB-SENIOR VICE PRESIDENT AND CHIEF INFORMATION OFFICER [place] Address: [address] [place], [place] [address] [place] [address] Result Comment: Cuto ff threshold at 50 ng/mL. Performed By: #### 3 024-7, 3016-3 #### [facility] CLIA [id number] [address] [place] [address] [place] Cocaine Ql (U) Negative Normal Negative [facility] Comment on above: Order Comment: Speci men Type: BLOOD SPECIMEN Ordering Facility: [facility] OB-SENIOR VICE PRESIDENT AND CHIEF INFORMATION OFFICER [place] Address: [facility] [address] [place] [address] Result Comment: Cuto ff threshold at 300 ng/mL. Performed By: #### 3 024-7, 3016-3 #### [facility] CLIA [id number] [address] [place] [address] [place] Ethanol (U) [Mass/Vol] <11 Normal <11 [facility] Comment on above: Order Comment: Speci men Type: BLOOD SPECIMEN Ordering Facility: [facility] OB-SENIOR VICE PRESIDENT AND CHIEF INFORMATION OFFICER [place] Address: [facility] [address] [place] [address] Performed By: #### 3 024-7, 3016-3 #### [facility] CLIA [id number] [address] [place] [address] [place] Opiates Screen Ql (U) Negative Normal Negative [facility] Comment on above: Order Comment: Speci men Type: BLOOD SPECIMEN Ordering Facility: [facility] OB-SENIOR VICE PRESIDENT AND CHIEF INFORMATION OFFICER [place] Address: [facility] [address] [place] [address] Result Comment: Cuto ff threshold at 300 ng/mL. Performed By: #### 3 024-7, 3016-3 #### [facility] CLIA [id number] [address] [place] [address] [place] oxyCODONE cutoff Screen (U) [Mass/Vol] Negative Normal Negative [facility] Comment on above: Order Comment: Speci men Type: BLOOD SPECIMEN [facility] CHIEF INFORMATION OFFIC[facility] [place] Address: [facility] [address] [place] [address] Result Comment: Cuto ff threshold at 100 ng/mL. Performed By: #### 3 024-7, 3016-3 #### [facility] CLIA [id number] [address] [place] [address] [place] Phencyclidine Ql (U) Negative Normal Negative [facility] Comment on above: Order Comment: Speci men Type: BLOOD SPECIMEN Ordering Facility: [facility] OB-SENIOR VICE PRESIDENT AND CHIEF INFORMATION OFFICER [place] Address: [facility] [address] [place] [address] Result Comment: Cuto ff threshold at 25 ng/mL. Performed By: #### 3 024-7, 3016-3 #### [facility] CLIA [id number] [address] [place] [address] [place] B-HCG SerPl-aCncon 4 HCG.beta subunit Qn m[IU]/mL Normal <5.0 [facility] Comment on above: Order Comment: Speci men Type: BLOOD SPECIMEN Ordering Facility: External Submitter Address: , , Result Comment: Dianne logan Performed By: #### 5 5454-3 #### [facility] CLIA [id number] [address] [place], [place] [address], [place] [address] [facility] CNOVon 02-25-2023 CNOV Office Visit (ORTHMN ) JESSEE ALMODOVAR ([id number]) 1990 [facility] Date Time Provider [...] with a (more content not included)... Normal [facility] XR HIP 3V PELV+ AP/LAT RTon 02-20-2023 [...] any questions regarding this interpretation, please call [phone]. If you are unable to reach us at the number above, please feel free to contact [facility] eRadiology at [phone]. [id number] Normal [facility] XR Pelvis and Hip - right AP [...] any questions regarding this interpretation, please call [phone]. If you are unable to reach us at the number above, please feel free to contact [facility]iology at [phone]. DIVISION OF RADIOLOGY * * *Final Report* [...] hip are unremarkable. DIVISION OF RADIOLOGY Provider, [facility] - 02/20/2023 * * *Final Report* [...] any questions regarding this interpretation, please call [phone]. If you are unable to reach us at the number above, please feel free to contact [facility] at [phone]. 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] Order(s):XR HIP GENERAL 3V PELV/AP/LAT RIGHT [[id number]] Order #: [id number] FUTURE Prescriptions as of 02/17/2023 - amphetamine-dextroamphe [...] Status:Closed by TIANA CRONIN on 02/17/23 Normal [facility] CBC W Auto Differential pane l (Bld)on 11-15-2022 Basophils (Bld) [#/Vol] 0.04 10*3/uL <0.11 k/uL [facility] Basophils/100 WBC (Bld) 0.8 % [facility] Differential cell count method Nom (Bld) Auto [facility] Eosinophils (Bld) [#/Vol] 0.11 10*3/uL <0.46 k/uL [facility] Eosinophils/100 WBC (Bld) 2.1 % [facility] Erythrocyte distribution width (RBC) [Ratio] 13.7 % 11.5 - 15.0 % [facility] Hematocrit (Bld) [Volume fraction] 46.7 % High 36.0 - 46.0 % [facility] Hemoglobin (Bld) [Mass/Vol] 15.6 g/dL High 11.5 - 15.5 g/dL [facility] Immature granulocytes (Bld) [#/Vol] <0.10 k/uL [facility] Immature granulocytes/100 WBC (Bld) 0.2 % [facility] Lymphocytes (Bld) [#/Vol] 1.77 10*3/uL 1.00 - 4.00 k/uL [facility] Lymphocytes/100 WBC (Bld) 33.7 % [facility] MCH (RBC) [Entitic mass] 31.8 pg 26.0 - 34.0 pg [facility] MCHC (RBC) [Mass/Vol] 33.4 g/dL 30.5 - 36.0 g/dL [facility] MCV (RBC) [Entitic vol] 95.3 fL 80.0 - 100.0 fL [facility] Monocytes (Bld) [#/Vol] 0.64 10*3/uL <0.87 k/uL [facility] Monocytes/100 WBC (Bld) 12.2 % [facility] Neutrophils (Bld) [#/Vol] 2.68 10*3/uL 1.45 - 7.50 k/uL [facility] Neutrophils/100 WBC (Bld) 51.0 % [facility] Nucleated RBC (Bld) [#/Vol] <0.01 k/uL [facility] Nucleated RBC/100 WBC (Bld) [Ratio] 0.0 /100 WBC [facility] Platelet mean volume (Bld) [Entitic vol] 11.3 fL 9.0 - 12.7 fL [facility] Platelets (Bld) [#/Vol] 154 10*3/uL 150 - 400 k/uL [facility] RBC (Bld) [#/Vol] 4.90 10*6/uL 3.90 - 5.2 0 m/uL [facility] WBC (Bld) [#/Vol] 5.25 10*3/uL 3.70 - 11. 00 k/uL [facility] CBC W Auto Differential pane l (Bld)on 08-09-2022 Basophils (Bld) [#/Vol] 0.03 10*3/uL <0.11 k/uL [facility] Basophils/100 WBC (Bld) 0.6 % [facility] Differential cell count method Nom (Bld) Auto [facility] Eosinophils (Bld) [#/Vol] 0.05 10*3/uL <0.46 k/uL [facility] Eosinophils/100 WBC (Bld) 0.9 % [facility] Erythrocyte distribution width (RBC) [Ratio] 13.6 % 11.5 - 15.0 % [facility] Hematocrit (Bld) [Volume fraction] 42.0 % 36.0 - 46.0 % [facility] Hemoglobin (Bld) [Mass/Vol] 13.5 g/dL 11.5 - 15.5 g/dL [facility] Immature granulocytes (Bld) [#/Vol] <0.10 k/uL [facility] Immature granulocytes/100 WBC (Bld) 0.4 % [facility] Lymphocytes (Bld) [#/Vol] 1.57 10*3/uL 1.00 - 4.00 k/uL [facility] Lymphocytes/100 WBC (Bld) 29.0 % [facility] MCH (RBC) [Entitic mass] 30.5 pg 26.0 - 34.0 pg [facility] MCHC (RBC) [Mass/Vol] 32.1 g/dL 30.5 - 36.0 g/dL [facility] MCV (RBC) [Entitic vol] 94.8 fL 80.0 - 100.0 fL [facility] Monocytes (Bld) [#/Vol] 0.47 10*3/uL <0.87 k/uL [facility] Monocytes/100 WBC (Bld) 8.7 % [facility] Neutrophils (Bld) [#/Vol] 3.27 10*3/uL 1.45 - 7.50 k/uL [facility] Neutrophils/100 WBC (Bld) 60.4 % [facility] Nucleated RBC (Bld) [#/Vol] <0.01 k/uL [facility] Nucleated RBC/100 WBC (Bld) [Ratio] 0.0 /100 WBC [facility] Platelet mean volume (Bld) [Entitic vol] 11.1 fL 9.0 - 12.7 fL [facility] Platelets (Bld) [#/Vol] 145 10*3/uL Low 150 - 400 k/uL [facility] RBC (Bld) [#/Vol] 4.43 10*6/uL 3.90 - 5.2 0 m/uL [facility] WBC (Bld) [#/Vol] 5.41 10*3/uL 3.70 - 11. 00 k/uL [facility] XR Pelvis and Hip - right [...] any questions regarding this interpretation, please call [phone]. If you are unable to reach us at the number above, please feel free to contact [facility] at [phone]. DIVISION OF RADIOLOGY * * *Final Report* [...] the interval. DIVISION OF RADIOLOGY Provider, Tom Diaz - 08/01/2022 * * *Final Report* * [...] any questions regarding this interpretation, please call [phone]. If you are unable to reach us at the number above, please feel free to contact [facility] at [phone]. [facility] Radiology Study observation (narrative) [facility] XR Pelvis and Hip - right AP and Lateral frogOrdered By: Ccf Provider on 08-01-2022 [facility] Ambulatory Visit Summaryon 0 05-26-2022 Ambulatory [...] Up with CHELSEA KRAUS DO When: Where: [facility] [address] [place] [address]- Medications What How Much When Why Instructions New amoxicillin (amoxicillin 500 mg Cap) 1 Capsules By Mouth Every 12 hours Strep pharyngitis Duration: 10 Days Pickup at [facility] 1985 Unchanged biotin Contact prescribing [...] physician if questions or concerns Pharmacy Information [facility] 1985: [address] [facility] [place], [place] [phone] Allergies No Known Allergies Problems Ongoing - [...] these instructions at home: Medicines ? Take rzap-ugl-rpnlhdv and prescription medicines only as told by [...] cup (more content not included)... 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 No fzzx-uew-soteqzm medications today. Review of Systems PHQ Score [...] day(s), # 20 cap(s), Refills(s) 0, Pharmacy: [facility] 1986, 172, cm, 05/26/22 9:34:00 [...] Acute pharyngitis, unspecified) Ordered: Rapid Strep POC 65946 Follow-up With When Contact Information CHELSEA KRAUS DO [facility] [address] [place] [address]- Additional Instructions: Patient Education Strep Throat, Adult, Vefr-vd-Utsj BMI for Adults Problem List/Past Medical History [...] POC Result: Positive (05/26/22 09:56:00) Normal [facility] Comment on above: Result Comment: Elec tronically Signed By: Roxanne MOSLEY CNP.shelley\Date and Time [...] these instructions at home: Medicines ? Take ldjs-nfu-jpgyxck and prescription medicines only as told by [...] 09/23/2008 Document Revised: 06/25/2019 Document Reviewed: 06/25/2019 [facility] Patient Education ? 2019 [employer]. Nutrition BMI for Adults Body mass index (BMI) is a number that is calculated from a person's weight and height. BMI may help to estimate how much of a person's weight is composed of fat. BMI can help identify those who may be (more content not included)... Normal [facility] Coding Summary.on 02-26-2022 Coding Summary. [id number] Gh0 bWw+PGhlYWQ+SB0ADUQtX25 yvTJgaW8VP4oLMZ5PMKOHHG DYOW4RXZ7ixYC4CIvmH9Jmy iAv ZgrhwXUdTB47JMa8WYN9qXp nZMqlyI3hqYZlA2x2JpYnPI 12zZ60ULidIDTzTiC8OtOpk jsgbWFy E6ryToRvrKIxAsq+PHRhYmx lIHdpZHRoPScxMDAlJyBzdH plSV2gMb5jUNAeYSBzxEldm HNlOiBj j7hwPODrETkiOP6lmBmsY7R xrLG5ANKvw9c0Pj56vNP+PH TtMVO2wRdjAZaum912SbEmf 2pnNKV7 cBSlNSfhGEM1O27rj9F1QNG tPIFeHFG6lER5hN1scDcxhf mqC6NeuJVwKxU8LJA8oMBlq L8fhRjd lnlqlX9lJdv+R74MEO4QOBY OHX5MOfv4A4PuKaqqtUV+PC 17VCKeBI21lIBocFPra4wcx Ie5McMx DFNoZPW7wBkjBFngl8MiGVS fN68qwRBze1R1RXLieFzkoU YwKbLviOG0fY9nRKffodzge 2hvdzsn Qnctz6rkil59sX91Z53gCLw wWGJsYHY5TJSpPORyaOpbcl 4vvU0wVc3+WVswd8ofp7fuk Xh5FjSz WDCtkdVejZqiOZM5i9GvTg2 4X9QamXhxi5QfExl8bu79mK Ckl6J9tHW8NOcrZECpiK4uS WxlZnQ6 CVLrYxJwlY72eKRwVVlkPd4 rkQnkcNxfCM7jHGYlthkmOO RrmW4yHXLxhDXyiNjbCT1pA TBpbjtm g021UmPsOPQ1MHLpdBSmH8D xwR3aKxGlPXMyVWWrN5EydO BbWQtdF833GFqmHpC1CZHyc sRsU4Mk XQIagFvqOlB7f5F9Lv3Sn0J xbsxuIDO0UBkrAKYmHdD1Ye SlWlX0V6JcLwx0AFWfyMryD Z7yX6Vx MBUjuztvnwjwjXO0KHIfAHY yvE89uVKeVIfjBc4bk7C3x9 18POQxOLXilN69Qs0mcQdoE TBwdCBU oJ8qovksy3fpcodsSaPiVFQ qIXm3SGu6DDCetFwcIeSlCG M0TbD6AWQ2jEAxpQ8vcGpdv ikunD4f Oyc+V99otQ0cLSP6VWM9avl dYQQjjpMfAE16UC18W5LuOn wvdGFibGU+PGRpdiBzdHlsZ U1pXbQw t7ers9HhFWwiE5IrIBRyNHq vApy3FQAsAGX7cRJ0sX5cGG JwRQfgg5J3wTJ0Z2QfkrQgq d6qn2jg EKUtVMtbN45wtOXlw8E3XSA htTI8UEYhqIvyPuVwnA98Qh c+MASoiIayd0OqHjblo6hxd 0urzLj8 EuAzNQCsrwXufEquPQH4g2H hWo23R45wOTckCEOgPDStEB XcUJLvsEbtrx5ucO8oOb0+P GNvbCB3 vCF4vV0nOVMvWeV3MYydE14 7UkOrcPXyDsujz3srf4cuxD f2UzYiYIIavkInpVzuHFF6s 2QwGb81 M93gCKmrYTLsROUtVTSpBIK vdVecyn2eeH7uNi7+PC9jb2 sfxl03lH10vBZ+YRItJJR1g WxlPSdw TISxvJ2dXMxmNaD2LKPeHiE nyR91cCFqOQrmOe5cfTwjnP hdVT0qODQicbker747OiJnc 2xkIDEw fJNmPMwcSKA5N36gs8F2KVW qQVKwWIE4fLA7yF4bnBdgdp ogbGVmdDsgdmVydGljYWwtY SbzE334 IHRvcDsnPlBhdGllbnQgTmF tGJz2E6NgXts3DIFyjZccUA 9ccVGbECewKt6pdLjasGafD W0uBDXf nhybn040JaXgm4hbYRSsqEE oDWfvURT5C69ok7H9CRMxVN LwYYF2mSV8rB8duTplapnub GVmdDsg jqMavYxkXZkqNHfeD862DFL dqLciBjZlvqXtHFOdvGE0TT 83JP79tHEnk1D8tZU4F0DmY GRpbmct dhpocSE5BRAkJSWwiB01Yy7 wcQknRa6sEFIqZFC2SXLyqQ WkX3JsuB6wLbRkDSBaIEJnG 3RleHQt AIpyV185NVseZpE7SVGqbxG mX8WvIPUvaKnfLjB2u3T6Ch 3SR1M2WD85JP93mFHzb8L6q CY5D9Pn VXEfdxsdjdthmES2HITnAGI cmP92Ga6mvEpjXl5kMVNcEC F6OBWdsDIiT2FmkA7tNlYkC DAwMDAw F1JxqOFzIXhpE144IUutKwA 7QNEbhwThN0AdYUCoeAsmVu H2h9R5Gc9QVAu1QG27WZ46p ZAql8X9 wTW6M6YiBRQnirjjysgnjTN 8KYTgGFOdiT46Gu3zfQwjQc 6gYJOlOMY2MNUrhKCcW9Eik P5mWoCe OUDcVIBfL1WahUEeFDgrP39 9YPwkWkZ7ACZltvUuX4CyYH YldDssXzI1j9X9Fs3BSVYoA O39TJF7 lZI3XS59DZ13M3JlFdybnPS ibGU+PHRhYmxlIHdpZHRoPS qkWIYrOiDprWpxUW7tMo8sZ GVyLWNv tBwxvCQnBjNuf7jlKDDnCIb vGI2jqRqwD9PzuIE0KIVqa3 h2Vi08I44sX7RddUD+PGNvb RL9rKT5 mL4eVaXsHzR1CHxsF781KwJ pcMVyIzchy4crn9hhvIh9Go O8VRIygjNldNrtWTB1a6VrA p23K33g IHdpZHRoPSIxNSUiIHZhbGl pnu5cnP3tIe6+EHLbxCD3dF R2qQ2gIxNuPdO3LYbdH110I nRvcCIv Mcdun8ckf6eucHh6FoTfLKC sekVwiJdkBVX3n1TrBg27W0 AtzXziu8CsWwb0xw54mRBlr 0B3oDS5 S8EqCUCaesoldVNzwAowBN0 qDCRjgqxiAKJreU9gOQBeW2 i7AxKzArT8FKmsL8OltsN4E DEwcHQg FVcmRFA9Y56ma9D8BPOrUPN bIGM9wYX6xD6tuSwaozgfcE VmdDsgdmVydGljYWwtYWxpZ 246IHRv jAmwPLYnqQ7xNNClcGAveHk gEB6qAADhoknpIgyMRVsDNS eGTkouNUCGKX79R7EqCqn3V CBzdHls BJ1heJApIJbuEu5xbRnjuLe xAN5uLQAdnaftQTGjtR2wRE NypOFogVehBE8fCSBulcbbh 250OiAx IPM6RHZkpQLpB5KbnI4rUsT wUYYjRNYrQ7WsdZHjCGfqD6 10OOqfDgP0PXVcwiXvY6LpE WFsaWdu WmL6n8E9We2qUZ9tNO6eSPy sTN03ET86iNGgt8O9cWJ2Y7 BxIAZdtvlroffvgXR2CZVrL DUwaW47 kNGdGSolIk6iv3F4x691YSE jSSHudI26Qx7isIaaLTAwtG ALrX2yjazoi2ekodzuYpAbK DAwMDt0 DAd2QWIomJieIeSdMDR0VwI 9OHH7uBAmcP2dzLhsibwznV 9wOyc+XzSdCFXnjnW1P2HjI ps5AXPv nGvtAY8pnWMoWHvlRr9icGd scQooDG4oUNHncaywIAVsbP 2rVALwuNQptAduLX4iVRJti bwgh716 FvTjKVY1MFEycYEqL5HbjT7 oAiTcSCUoLMWsG3EmiQMlVB rjZ331TTraEeC6YEJkxcXvT 2FsLWFs gOmbGdJ0y2L1Gl6AGR8ljJB 4G9RxMgn8WZNfrRamZZ2uaY FjPGnwEf7ejCelbMwyMX9xF TBpbjtw SVCyiN4zNFDnzOJthDrxKY5 qWBTycnnno936DoFfMWC1GJ UbwNYrD6MgpK7aOxWxKHWgG WSdR4Bo vZZjLAptP745ATinAoQ0KZH fmeMeM6RmATNmfBzbXjX3r5 A0Ht2NzJYeU2HfQ4p6R9ZwS jwvdHI+ AB01KNEsVQ01fDZyvJUjb4b wnYx9UxCqIPLrWNG9rQvqUP hky2AdKXIkP54pdOHzl3H7T GNvbGxh xTYfSsWrePU3iZ6nJQbiabz no5ausahoOapue4abmx69oS 48S62xAVgbKXItWWHcZMAeZ HZhbGln ry8dvJ2vKr1+TECzuXL1uMH 3pX3hQlCdRwJ4ZUxjV419Wz WktDLpVlypu2kub9qexTr2S jIwJSIg naUouVzrGBO3t3HdRd60G08 sIHdpZHRoPSIyMCUiIHZhbG jqao1reA8pPk1+WC7lj9nex k69pK11 dHI+PQUcHAW4oSdkCGgbLDT fqK5tAEqjRyH5RFGgJiDdqQ 57wNWsIKcvPz9mtTuwbJdcF Z8rIYPd icsvv121DaDvp5oyDVUhwLT uNYorMMI7C75yf2M3UGOkVS TpYFS6uYI1iB6enAtukdufh GVmdDsg faVngTnfMHuiNJlsL426RQN ovGolGrZcjTZlP2sgnzIMUM 1lOjwvdGQ+COTxUNJ7iGteN SdwYWRk lW5cJLDfM6b4UxUkIlF6ZMu bC1QbfyE0HRQehOQzZKBvlW ZRgV3yuofbu9tohribQeHyZ DAwMDt0 XXy7PHKhaWphNxXcHUS3GoE 0LUE8hCTyrG5uuZvhcsmgkH 9wOyc+RklOOjwvdGQ+PHRkI YN6yYza QWefABQewB1cATYxY8y2RyH dXdU1SAgpA5YdbqF4CRMvjW DdGBEhwFTDkD6vjgkhc1owe jogIzAw GPVlBOy6AFo7TUWkyYumQkD qOCQ0SmF2XKI7oCYrpW5ovQ owtqntaP9tFgd+TVJOOjwvd GQ+PHRk BVQ6vBsfLRraOHSeyY4kAAB iL0x4YoPoOvS9FNdaT6Knqo Y1UKReqGWhBQRehRUYzB9kb lqth4yj fcuwRzPcNIWdMJs1ZBk7SYH keMmlOiMwDGA3CnX5SPC7cQ SdeQ3rsPuemuvfpW8xIaf+U VN1JKP5 NB31IT03I1KnAdigvXPhmOS +PHRhYmxlIHdpZHRoPScxMD ZyVyNbnBxdPB4iCm2wDRUqA WNvbGxh cHNl (more content not included)... Normal [facility] Discharge Instructionson Discharge Instructions [id number] CD:127 Normal [facility] ED Clinical Summaryon 2021 ED Clinical Summary [address] [address] ED Clinical Summary Person Information Name: JESSEE ALMODOVAR[place] Age: 32 Years : 1990 Sex: Female Language: Uruguayan PCP: Marital Status: Phone: [phone] Visit Id: Visit Reason: Foot pain-swelling; HURT [...] 11:07:01 02/23/2022 11:07:01 ADDRESS: [address] [place] [place] [id number] PHYS DOC NOTES: MEDICAL INFORMATION: Prescriptions Given: PATIENT EDUCATION INFORMATION: Instructions: Foot Sprain; How to Use Cold Therapy, Nnxf-tk-Iscv; Elastic Bandage and RICE Therapy Follow up: With: Address: When: [employer], [address] [place], [place] [id number] [facility] () In 3 days 02/26/2022 Comments: Follow-up with your primary care provider in 3 to 5 days. If symptoms worsen, do not improve, or new symptoms arise please report back to emergency department for further evaluation. DIAGNOSIS: Sprain of left foot Normal [facility] ED Note-Physicianon 02-24-20 ED Note-Physician Basic [...] Information CHELSEA KRAUS In 3 days 02/26/2022 [facility] [employer] [address] [place] [phone] Business (1) Additional Instructions: Follow-up with your primary care provider in 3 to 5 days. If symptoms worsen, do not improve, or new symptoms arise please report back to emergency department for further evaluation. Patient Education Foot Sprain How to Use Cold Therapy, Oevy-rx-Iyyb Elastic Bandage and RICE Therapy Attestation Patient seen and evaluated by the physician seismic survey assistant. Attending physician was present in the emergency department and supervised care. This visit was performed by both the physician and an APC. I performed all aspects of the MDM as documented. This report was transcribed using voice recognition software. Every effort was made to ensure accuracy, however, inadvertently computerized planimeter operator mistakes may be present. Appropriate healthcare PPE [...] medications Ho (more content not included)... Normal [facility] Comment on above: Result Comment: Elec [...] This may take several hours. ? Take ylbs-hvg-eodcasp and prescription medicines only as told by [...] is no (more content not included)... Normal [facility] ED Patient Summaryon ED Patient Summary (Inserted Image. Kelsi ble to display) [address] [address] Patient Discharge Instructions Person Information Name: JESSEE ALMODOVAR Age: 32 Years Arrival Date: 02/23/2022 09:05:13 Discharge Diagnosis: Sprain of left foot Primary Care Physician: Provider Information Primary Provider: Chayo Anne DO Advanced Parts Administrator:None The exam and treatment you received in the Emergency Department were for an urgent problem and are not intended as complete care. It is important that you follow up with a doctor, nurse practitioner, or physician?s seismic survey assistant for ongoing care. If your symptoms become worse or you do not improve as expected and you are unable to reach your usual health care provider, you should return to the Emergency Department. We are available 24 hours a day. JESSEE ALMODOVAR has been given the following list of patient education materials, prescriptions and follow-up instructions: Follow-up Instructions: With: Address: When: CHELSEA EFRABj[employer], [address] [place] [address] Business (1) In 3 days 02/26/2022 [...] Foot Sprain; How to Use Cold Therapy, Pxrn-ma-Tsny; Elastic Bandage and RICE Therapy A MESSAGE TO ALL PATIENTS REGARDING OPIOIDS PRESCRIPTION OPIOIDS: WHAT YOU NEED TO KNOW Prescription opioids can be used to help relieve znaafbyx-bs-gmyman pain and are often prescribed following a [...] Visit www.cdc.gov/ (more content not included)... Normal [facility] XR Foot 3+ Views Lefton 11- XR Foot 3+ Views Left Exam Date/Time: [...] DO Transcribed by: SUZY Technologist: TIM Normal [facility] XR Pelvis and Hip - right [...] any questions regarding this interpretation, please call [phone]. If you are unable to reach us at the number above, please feel free to contact [facility] at [phone]. DIVISION OF RADIOLOGY * * *Final Report* [...] any questions regarding this interpretation, please call [phone]. If you are unable to reach us at the number above, please feel free to contact [facility] eRadiology at [phone]. [facility] XR Pelvis and Hip - right AP and Lateral frogOrdered By: Ccf Provider on 02-19-2022 [facility] XR Pelvis and Hip - right AP and Lateral frogon 02-18-2022 Radiology Study observation (narrative) [facility] CT ABD/PELV W CONon 02-12-20 CT [...] STEWART Date: 2022-02-11 07:23 Normal [facility] US PELVIS AND TRANSVAGon US PELVIS [...] JENNIFER HARTLEY Date: 2022-01-08 14:12 Normal [facility] UA DIP, URINE (POC)on 2021 BILIRUBIN UA (POCT) Negative Negative [facility] CLARITY UA (POCT) Cloudy [facility] COLOR UA (POCT) Yellow [facility] GLUCOSE UA (POCT) Negative Negative mg/dL [facility] HEMOGLOBIN/BLOOD UA (POCT) Trace-intact Abnormal Negative [facility] KETONE UA (POCT) Negative Negative mg/dL [facility] LEUKOCYTES UA (POCT) Small Abnormal Negative [facility] NITRITE UA (POCT) Negative Negative [facility] PH UA (POCT) 6.5 4.5 - 8.0 [facility] Protein Ql (U) Negative Negative mg/dL [facility] SPECIFIC GRAVITY UA (POCT) 1.015 1.005 - 1.030 [facility] UROBILINOGEN UA (POCT) 0.2 E.U./dL Normal E.U./dL [facility] Large Joint Arthro/Inj: R gr eater trochanteric bursa [facility] Vital Signs Date Time Vital Sign Value Performing Clinician Facility 01-27-2024 10:040 Body mass index (BMI) [Ratio] 29 kg/m2 Franny COSTELLO Work Phone: [facility] 01-27-2024 10:17-0400 Body weight 98.34 kg Franny COSTELLO Work Phone: [facility] 01-27-2024 10:17-0400 Diastolic blood pressure 60 mm[Hg] Franny COSTELLO Work Phone: [facility] 01-27-2024 10:17-0400 Systolic blood pressure 110 mm[Hg] Franny COSTELLO Work Phone: [facility] 02-25-2023 13:16-0500 Body height 185.4 cm Rosas Mckinney MD Work Phone: [facility] 02-25-2023 13:16-0500 Body weight 76.67 kg Rosas Mckinney MD Work Phone: [facility] 07-10-2022 15:15-0400 Body height 181.61 cm Imad Asaad Other [facility] Other 07-10-2022 15:15-0400 Body mass index (BMI) [Ratio] 24.48 kg/m2 Imad Asaad Other [facility] 07-10-2022 15:15-0400 Body weight 80.74 kg Imad Asaad Other [facility] Other 07-10-2022 15:15-0400 Diastolic blood pressure 78 mm[Hg] Imad Asaad Other [facility] Other 07-10-2022 15:15-0400 Systolic blood pressure 130 mm[Hg] Imad Asaad Other [facility] Other 05-26-2022 09:29-0500 Blood Pressure Location Roxanne MOSLEY [facility] 05-26-2022 09:29-0500 Body temperature 98.42 [degF] Roxanne MOSLEY [facility] 05-26-2022 09:29-0500 Diastolic blood pressure 78 mm[Hg] Roxanne MOSLEY [facility] 05-26-2022 09:29-0500 Heart rate 115 /min Roxanne MOSLEY [facility] 05-26-2022 09:29-0500 SaO2% (BldA) [Mass fraction] 98 % Roxanne MOSLEY [facility] 05-26-2022 09:29-0500 Systolic blood pressure 120 mm[Hg] Roxanne MOSLEY [facility] 02-23-2022 09:10-0400 Body temperature 98.42 [degF] Chayo Anne [facility] 02-23-2022 09:10-0400 Diastolic blood pressure 67 mm[Hg] Chayo Anne [facility] 02-23-2022 09:10-0400 Heart rate 88 /min Chayo Anne [facility] 02-23-2022 09:10-0400 Respiratory rate 18 /min Chayo Anne [facility] 02-23-2022 09:10-0400 SaO2% (BldA) [Mass fraction] 98 % Chayo Anne [facility] 02-23-2022 09:10-0400 Systolic blood pressure 141 mm[Hg] Chayo Anne [facility] Encounters Encounter Date Encounter Type Care Provider Facility Start: 01-27-2024 End: 01-27-2024 Alexandra COSTELLO Work Phone: [facility] Start: 01-27-2024 End: 01-27-2024 Alexandra flowsunruly COSTELLO Work Phone: [facility] Start: 01-27-2024 End: 01-27-2024 ambulatory FRANNY SANDERSON Not Available Start: 01-27-2024 End: 01-27-2024 flow sheet Franny COSTELLO Work Phone: [facility] Comment on above: 33 weeks gestation o f ; Third trimester ; Low iron; Nonintractable headache, unspecified chronicity pattern, unspecified headache type; Constipation, unspecified constipation type Start: 01-19-2024 End: 01-19-2024 ambulatory ANUPAMA BROWN Facility:[facility] Start: 01-13-2024 End: 01-13-2024 ambulatory GUILLAUME PEDRO Not Available Start: 01-05-2024 End: 01-05-2024 ambulatory ANUPAMA BROWN Facility:[facility] Start: 12-30-2023 End: 12-30-2023 ambulatory GUILLAUME PEDRO Not Available Start: 12-16-2023 End: 12-16-2023 ambulatory GUILLAUME PEDRO Not Available Start: 12-08-2023 End: 12-08-2023 ambulatory GUILLAUME R PEDRO Facility:[facility] Start: 11-20-2023 End: 11-20-2023 ambulatory ANUPAMA BROWN Facility:[facility] Start: 11-18-2023 End: 11-18-2023 ambulatory FRANNY SANDERSON Not Available Start: 10-22-2023 End: 10-22-2023 ambulatory GUILLAUME R PEDRO Facility:[facility] Start: 10-21-2023 End: 10-21-2023 ambulatory GUILLAUME PEDRO Not Available Start: 10-16-2023 End: 10-16-2023 ambulatory [facility] Start: 09-24-2023 End: 09-24-2023 ambulatory FRANNY SANDERSON Not Available Start: 08-26-2023 End: 08-26-2023 ambulatory GUILLAUME PEDRO Not Available Start: 08-08-2023 End: 08-08-2023 ambulatory GUILLAUME R PEDRO Facility:[facility] Start: 07-24-2023 End: 07-24-2023 ambulatory GUILLAUME PEDRO Not Available Start: 06-04-2023 End: 06-04-2023 ambulatory ASIF SCHAEFER [facility] Start: 06-02-2023 End: 06-02-2023 Phys/qhp telephone evaluation 5-10 min Guillaume Pedro DO Work Phone: [facility] Comment on above: Irregular menses (Pr imary Dx) Start: 06-02-2023 End: 06-02-2023 ambulatory GUILLAUME PEDRO Not Available Start: 05-28-2023 Chart abstracting Guillaume Pedro DO Work Phone: [facility] Start: 05-16-2023 End: 05-16-2023 ambulatory ANUPAMA BROWN Facility:[facility] Start: 05-05-2023 End: 05-05-2023 ambulatory ASIF SCHAEFER Facility:[facility] Start: 05-02-2023 End: 05-02-2023 ambulatory ASIF SCHAEFER [facility] Start: 05-02-2023 End: 05-02-2023 Office outpatient visit 25 minutes Asif Schaefer DIVISION OPERATIONS SPECIALIST-LEASING PROPERTY MANAGER Work Phone: [facility] Comment on above: Attention deficit hy peractivity disorder (ADHD), predominantly inattentive type (Primary Dx); Moderate episode of recurrent major depressive disorder (CMS-HCC); Generalized anxiety disorder Start: 03-04-2023 End: 03-04-2023 ambulatory GUILLAUME PEDRO Not Available Start: 02-25-2023 End: 02-25-2023 ambulatory ANUPAMA BROWN Facility:[facility] Start: 02-25-2023 End: 02-25-2023 Office outpatient visit 25 minutes Rosas Mckinney MD Work Phone: Orthopaedics Comment on above: Lytic bone lesion of femur (Primary Dx); Greater trochanteric bursitis of right hip; Chronic pain of right hip; Chronic low back pain, unspecified back pain laterality, unspecified whether sciatica present; Pain of right hip; Bone lesion Start: 02-20-2023 End: 02-20-2023 ambulatory ANUPAMA BROWN Facility:[facility] Start: 02-20-2023 End: 02-20-2023 Subsequent hospital [...] 07-10-2022 End: 07-10-2022 ambulatory Imad Asaad Other [facility] Other Start: 07-10-2022 Office outpatient ne w 45 minutes Imad Asaad [facility] Start: 05-26-2022 End: 05-27-2022 ambulatory Roxanne MOSLEY Facility:[facility] Start: 05-26-2022 End: 05-26-2022 Patient encounter procedure Roxanne MOSLEY [facility] Start: 05-08-2022 End: 05-08-2022 ambulatory PRAVIN SANDERSON Facility:[facility] Start: 02-26-2022 End: 02-26-2022 Patient encounter procedure Rosas Mckinney MD Work Phone: Orthopaedics Comment on above: Lytic bone lesion of femur (Primary Dx) Start: 02-23-2022 End: 02-23-2022 Emergency department patient visit Chayo Anne Facility:[facility] Start: 02-23-2022 End: 02-23-2022 Emergency department patient visit Chayo Anne [facility] Start: 02-18-2022 End: 02-18-2022 Subsequent hospital visit by physician General Thi Bunch Work Phone: Radiology Comment on above: 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] Start: 02-09-2022 End: 02-10-[address] GUILLAUME VASQUEZ Facility:[facility] Start: 01-08-2022 End: 01-09-[address] GUILLAUME VASQUEZ Facility: Start: 12-06-2021 Orders Only Reebcca Treadwell RN Hematol ogy/Oncology Comment on above: Unspecified hypothyr oidism (Primary Dx) Start: 11-08-2021 Manual pelvic examination Natanael Mixon MD Work Phone: Hematology/Oncology Comment on above: Pelvic pain (Primary Dx) Dysuria (Primary Dx) Start: 11-08-2021 End: 11-08-2021 Nursing evaluation of patient and report Ma Nurse Yamil Poppy Work Phone: Hematology/Oncology Comment on above: Dysuria (Primary Dx) Start: 10-04-2021 Orders Only Macy Jones APRN.CNP Work Phone: Hematology/Oncology Comment on above: Acute bilateral low back pain with bilateral sciatica (Primary Dx) Procedures Date Procedure Procedure Detail Performing Clinician Start: 01-27-2024 Urnls dip stick/tabl et rgnt non-auto w/o micrscp Franny COSTELLO Work Phone: Start: 10-21-2023 Microscopic observat ion [Identifier] in Cervix by Cyto stain Franny COSTELLO Work Phone: Start: 08-08-2023 Antibody screen GUILLAUME MURILLO Comment on above: Order Comment: Speci men Type: BLOOD SPECIMEN Ordering Facility: External Submitter Address: , , Performed By: #### T SCR #### [facility] [place] [id number] [address] [place] [address] [place] Start: 02-25-2023 Arthrocentesis aspir &/inj major jt/bursa w/o us Tiana Cronin PA-C Work Phone: Start: 02-20-2023 Radex hip unilateral with pelvis 2-3 views Roni Dumas MD Work Phone: Start: 08-08-2022 Adult depression scr eening assessment Asif Schaefer DIVISION OPERATIONS SPECIALIST-LEASING PROPERTY MANAGER Work Phone: Start: 08-01-2022 Radex hip unilateral [...] Td Vaccines (4 - Td or Tdap) [facility] Start: 01-04-2030 Urine microalbumin profile DTa P,Tdap,Td Vaccine (4 - Td or Tdap) [facility] Start: 10-20-2028 Screening for malign ant neoplasm of cervix [facility] Start: 03-10-2024 Tobacco Screening Tobacco Screening [facility] Start: 02-23-2024 Screening for malign ant neoplasm of cervix [facility] Start: 02-10-2024 End: 02-10-2024 Patient encounter procedure 02/10/2024 1:00 PM EDT Routine [facility] [address] [place] [phone] Guillaume Vasquez, [address] [place] [address] [facility] Start: 12-21-2023 Covid-19 Vaccine () Covid-19 Vaccine () [facility] Start: 12-21-2023 Covid-19 Vaccine () Covid-19 Vaccine () [facility] Start: 12-21-2023 Influenza vaccination Influenza Vacc ine (#1) [facility] Start: 08-09-2023 Adult BMI Screening Adult BMI Screen ing [facility] Start: 08-09-2023 Depression Screening Depression Scre ening [facility] Start: 05-29-2023 End: 05-29-2023 Patient encounter procedure 05/29/2023 8:10 AM EST Office Visit [facility] [address] [place] [phone] Guillaume Vasquez, [address] [place] [address] Irregular menses [facility] Comment on above: Irregular menses Start: 12-20-2022 Covid-19 Vaccine () Covid-19 Vaccine () [facility] Start: 12-20-2022 Influenza vaccination INFLUENZA (#1) [facility] Start: 11-15-2022 End: 01-15-2023 Comprehensive metabolic 2000 panel - Serum or Plasma [facility] Work Phone: Comment on above: Expected: 11/15/2022 , Expires: 01/15/2023 Start: 11-15-2022 End: 01-15-2023 Lipid 1996 panel - Serum or Plasma [facility] Work Phone: Comment on above: Expected: 11/15/2022 , Expires: 01/15/2023 Start: 11-15-2022 End: 01-15-2023 T4/FTI/T4U [facility] Work Phone: Comment on above: Expected: 11/15/2022 , Expires: 01/15/2023 Start: 11-15-2022 End: 01-15-2023 Thyrotropin [Units/volume] in Serum or Plasma [facility] Work Phone: Comment on above: Expected: 11/15/2022 , Expires: 01/15/2023 Start: 08-26-2022 End: 03-28-2023 XR HIP GENERAL 3V PELV/AP/LAT RIGHT XR HIP GENERAL 3V PELV/AP/LAT RIGHT Radiology Routine Lytic bone lesion of femur Expected: 08/26/2022, Expires: 03/28/2023 [facility] Work Phone: Comment on above: Expected: 08/26/2022 , Expires: 03/28/2023 Start: 08-09-2022 End: 10-09-2022 25-hydroxyvitamin D3 [Mass/volume] in Serum or Plasma [facility] Work Phone: Comment on above: Expected: 08/09/2022 , Expires: 10/09/2022 Start: 04-21-2022 DEPRESSION ASSESSMENT DEPRESSION ASS ESSMENT [facility] Start: 12-20-2021 Influenza vaccination INFLUENZA (#1) [facility] Start: 12-06-2021 End: 02-05-2022 Thyrotropin [Units/volume] in Serum or Plasma [facility] Work Phone: Comment on above: Expected: 12/06/2021 , Expires: 02/05/2022 Start: 12-06-2021 End: 02-05-2022 Thyroxine (T4) free [Mass/volume] in Serum or Plasma [facility] Work Phone: Comment on above: Expected: 12/06/2021 , Expires: 02/05/2022 Start: 12-06-2021 End: 02-05-2022 Triiodothyronine (T3) [Mass/volume] in Serum or Plasma [facility] Work Phone: Comment on above: Expected: 12/06/2021 , Expires: 02/05/2022 Start: 11-08-2021 End: 01-08-2022 Choriogonadotropin ( test) [Presence] in Urine [facility] Work Phone: Comment on above: Expected: 11/08/2021 , Expires: 01/08/2022 Start: 11-08-2021 End: 01-08-2022 URINALYSIS, REFLEX MICROSCOPIC [facility] Work Phone: Comment on above: Expected: 11/08/2021 , Expires: 01/08/2022 Start: 04-21-2021 DEPRESSION ASSESSMENT DEPRESSION ASS ESSMENT [facility] Start: 2021 HPV TESTING HPV TESTING [facility] Start: 10-13-2020 COVID-19 VACCINE (3 - Booster for Moderna series) COVID-19 VACCINE (3 - Booster for Moderna series) [facility] Start: 07-10-2020 COVID-19 VACCINE (3 - Booster for Moderna series) COVID-19 VACCINE (3 - Booster for Moderna series) [facility] Start: 07-10-2020 COVID-19 VACCINE (3 - Moderna series) COVID-19 VACCINE (3 - Moderna series) [facility] Start: 02-08-2012 PAP TESTING PAP TESTING [facility] Start: 02-08-2012 Screening for malign ant neoplasm of cervix [facility] Start: 2010 Urine microalbumin profile DTA P,TDAP,TD (1 - Tdap) [facility] Start: 2009 Anxiety Screening Anxiety Screening [facility] Start: 2009 Depression Screening Depression Scre ening [facility] Start: 2009 HEPATITIS C SCREENING HEPATITIS C SC REENING [facility] Start: 2009 HIV SCREENING HIV SCREEN[facility] Start: 2003 Adult depression scr eening assessment DEPRESSION SCREENING [facility] Start: 1997 Pneumococcal vaccination [facility] Start: 1991 HEPATITIS B (1 of 3 - 3-dose series) HEPATITIS B (1 of 3 - 3-dose series) [facility] Bacteria identified in Urine by Culture URINE CULTURE Microbiology Routine Pelvic pain 11/08/2021 11:36 AM EDT [facility] Work Phone: End: 06-02-2023 Drug Screen, Urine [...] lesion 1 Occurrences starting 02/25/2023 until 03/26/2024 [facility] Work Phone: Comment on above: 1 Occurrences starti ng 02/25/2023 until 03/26/2024 End: 03-18-2024 XR HIP GENERAL 3V PELV/AP/LAT RIGHT XR HIP GENERAL 3V PELV/AP/LAT RIGHT Radiology Routine Lytic bone lesion of femur 1 Occurrences starting 02/17/2023 until 03/18/2024 [facility] Work Phone: Comment on above: 1 Occurrences starti ng 02/17/2023 until 03/18/2024 [facility] Immunizations Immunization Date Immunization Notes Care Provider [facility] 01-28-2023 influenza virus vaccine, unspecified formulation Roni Dumas MD Work Phone: [facility] 02-14-2022 influenza virus vaccine, unspecified formulation Rosas Mckinney MD Work Phone: [facility] 01-18-2021 influenza virus vaccine, unspecified formulation Macy Jones APRN.CNP Work Phone: [facility] 03-01-2020 influenza, seasonal, injectable Imad Asaad Other [facility] Other 02-03-2016 influenza, injectable, quadrivalent, contains preservative Imad Asaad Other [facility] Other NEGATED: Highlighted row has not occurred!03-02-2019 influenza, seasonal, injectable Imad Asaad Other [facility] Other Payers Date Payer Category Payer Unknown [id number] 1990 Unknown [id number] 2.16.84 [id number] 1990 Unknown [id number] 2.16.84 0.1.726212.3.579.2.593 1990 Unknown [id number] 2.16.84 0.1.226023.3.579.2.593 1990 Unknown [id number] 2.16.8 40.1.513998.3.579.2.727 1990 Unknown [id number] 2.16.8 40.1.681124.3.579.2.727 1990 Unknown [id number] 2.16.84 0.1.475675.3.579.2.1286 1990 Unknown [id number] 2.16.8 40.1.352633.3.579.2.1286 1990 Unknown [id number] 2.16.8 40.1.208299.3.579.2.1286 1990 Unknown [id number] 2.16.8 40.1.884189.3.579.2.1286 1991 Unknown [id number] 2.16.84 0.1.578865.3.579.2.1259 1990 Unknown [id number] 2.16.84 0.1.412512.3.579.2.1259 1991 Unknown [id number] 2.16.84 0.1.727766.3.579.2.1259 1991 Unknown [id number] 2.16.84 0.1.811985.3.579.2.1259 1991 Unknown [id number] 2.16.84 0.1.961695.3.579.2.1259 1991 Unknown [id number] 2.16.84 0.1.030101.3.579.2.1259 1991 Unknown [id number] 2.16.84 0.1.980339.3.579.2.1259 1991 Unknown [id number] 2.16.84 0.1.242586.3.579.2.1259 1991 Unknown [id number] 2.16.84 0.1.990169.3.579.2.1259 1991 Unknown [id number] 2.16.84 0.1.084446.3.579.2.1259 1991 Unknown [id number] 2.16.840. 1.640060.3.579.2.1259 1959 Unknown [id number] Social History Date Type Detail [facility] Work Phone: Start: 1990 Sex Assigned At Not on file [facility] Start: 10-29-2021 End: 02-26-2022 Exposure to SARS-CoV-2 (event) Not sure [facility] Start: 03-21-2013 End: 10-21-2023 Tobacco smoking status Ex-smoker (finding) [facility] Comment on above: quit 01/2013 Start: 02-26-2022 End: 10-21-2023 Sex Assigned At Female [facility] History of tobacco use Current smoker [facility] History of tobacco use Cigarette Smoker [facility] History of tobacco use Passive smoker [facility] Start: 02-11-2022 End: 10-21-2023 Tobacco use and exposure Smokeless tobacco non-user [facility] Start: 02-11-2022 End: 02-26-2022 Alcohol intake Current drinker of alcohol (finding) [facility] Tobacco smoking status Never [facility] Start: 02-26-2022 End: 10-21-2023 History of Social function [facility] Start: 02-25-2023 End: 05-28-2023 Tobacco smoking status NHIS Occasional tobacco smoker [facility] Start: 08-08-2022 Alcohol Comment on the weekends [facility] Start: 05-28-2023 Alcohol Comment caffeine: 2-3 cups per day coffee; soda [facility] Start: 01-13-2024 End: 01-27-2024 Alcoholic beverage intake Ex-drinker (finding) [facility] Start: 06-19-2023 [facility] Functional Status Date Assessment Result Facility 05-26-2022 Functional Status N/A [facility] 02-23-2022 Functional Status N/A [facility] Clinical Notes 08-20-2015 to 01-27-2024 PRAVIN Dumont - 01/27/2024 9:50 AM Billie Vasquez DO - 06/02/2023 4:20 PM ESTPsychiatric Progress Note - Asif Schaefer, DIVISION OPERATIONS SPECIALIST-LEASING PROPERTY MANAGER - 05/02/2023 10:00 AM ESTPatient Instructions Note Date & Type Note Facility 01-27-2024 History of Present illness Narrative Reason for Appointment: Patient ID: Jessee Almodovar is a 33 y.o. female who presents for Routine Visit Patient presents today for Return OB appointment. MEDICATIONS Current Outpatient Medications Medication Instructions aspirin 81 mg, Oral, Daily labetalol (NORMODYNE) 100 mg, Oral, 2 times daily levothyroxine (SYNTHROID) 25 mcg, Oral, Daily before breakfast levothyroxine (SYNTHROID, LEVOXYL) 200 mcg, Oral, Daily RT omeprazole (PRILOSEC) 40 mg, Oral, Daily before breakfast MV-Min-Fe Fum-FA-DHA ( 1 PO) Oral ALLERGIES No Known Allergies PROBLEMS Active Ambulatory Problems Diagnosis Date Noted Irregular menses 06/02/2023 Resolved Ambulatory Problems Diagnosis Date Noted No Resolved Ambulatory Problems Past Medical History: Diagnosis Date Acne Anxiety Endometrial polyp Hypertension (CMS/HCC) Hypothyroidism (CMS/HCC) HISTORY PAST MEDICAL HISTORY SOCIAL HISTORY Past Medical History: Diagnosis Date Acne Anxiety Endometrial polyp Hypertension (CMS/HCC) Hypothyroidism (CMS/HCC) Social History Tobacco Use Smoking status: Former Types: Cigarettes Smokeless tobacco: Never Substance Use Topics Alcohol use: Not Currently Comment: caffeine: 2-3 cups per day coffee; soda Drug use: Never FAMILY HISTORY Family History Problem Relation Name Age of Onset Hypertension Mother Osteoarthritis Father Other (Heart problems) Maternal Grandmother Cancer Maternal Grandfather Grandpa SURGICAL HISTORY Past Surgical History: Procedure Laterality Date CERVICAL BIOPSY W/ LOOP ELECTRODE EXCISION 2013 (CIN1...neg. margins). Dr. Hernandez COLPOSCOPY 2013 with biopsies (CIN2). Dr. Hernandez INNER EAR SURGERY tubes in ears REVIEW OF SYSTEMS Review of Systems: Review of Systems Constitutional: Negative. HENT: Negative. Eyes: Negative. Respiratory: Negative. Cardiovascular: Negative. Gastrointestinal: Negative. Genitourinary: Negative. Musculoskeletal: Negative. Skin: Negative. Neurological: Negative. All other systems reviewed and are negative. Hematological: Negative. Endocrine: Negative. Allergic/Immunologic: Negative. OBJECTIVE Objective: Physical Exam Constitutional: Appearance: Normal appearance. She is well-developed and normal weight. HENT: Head: Normocephalic. Cardiovascular: Rate and Rhythm: Normal rate and regular rhythm. Pulses: Normal pulses. Pulmonary: Effort: Pulmonary effort is normal. Breath sounds: Normal breath sounds. Abdominal: General: Bowel sounds are normal. There is no distension. Palpations: Abdomen is soft. Tenderness: There is no abdominal tenderness. There is no guarding or rebound. Musculoskeletal: General: No swelling. Normal range of motion. Right lower leg: No edema. Left lower leg: No edema. Neurological: General: No focal deficit present. Mental Status: She is alert and oriented to person, place, and time. Skin: General: Skin is warm and dry. Psychiatric: Mood and Affect: Mood normal. Behavior: Behavior normal. Thought Content: Thought content normal. Judgment: Judgment normal. Vitals and nursing note reviewed. Exam conducted with a fur blower present. Vitals: Estimated body mass index is 29 kg/m as calculated from the following: Height as of 05/07/22: 6' 0.5 . Weight as of this encounter: 216 lb 12.8 oz. BP: 110/60 Patient's last menstrual period was 05/25/2023. ASSESSMENT & PLAN ICD-10-CM 1. 33 weeks gestation of Z3A.33 POCT urinalysis dipstick manually resulted 2. Third trimester Z34.93 POCT urinalysis dipstick manually resulted Return OB: Patient presents today for a routine obstetrics appointment. Patient is currently 33w5d . Patient states she is doing well but has complaints of being tired due to current . Patient has verbalizes frequent movement. labor precautions was discussed/given and patient was instructed to perform kick counts three times a day. Orders Placed This Encounter Procedures POCT urinalysis dipstick manually resulted Follow Up: Patient is to return to office in 2 week for routine OB appointment. Documented by Lisa Montes LPN on behalf of: PRAVIN Dumont documented in this encounter [facility] 06-02-2023 History of Present illness Narrative Reason for Appointment: Patient ID: Jessee Almodovar is a 33 y.o. female who presents for No chief complaint on file. Patient presents today via telephone call for a telehealth appointment. Patients Phone #: [phone] (mobile) Current Medications: has a current medication [...] Hernandez COLPOSCOPY 2013 with biopsies (CIN2). Dr. Mary INNER EAR SURGERY tubes in ears No Known Allergies Vitals: Estimated body mass index is 22.74 kg/m as calculated from the following: Height as of 05/07/22: 6' 0.5 . Weight as of 03/04/23: 170 lb. BP: No LMP recorded. Assessment/Plan Irregular menses-start apri, obtain menorrhagia labs and ultrasound, pt considering all options, rto for yearly exam or as needed. Will consider referral to [facility] in future Documented by Guillaume Vasquez DO on behalf of: Guillaume Vasquez DO documented in this encounter [facility] 05-02-2023 Miscellaneous Notes [address] [facility] [id number] Patient: Jessee Almodovar Date of : 1990 Encounter Date: 05/02/2023 History of Present Illness/Psychiatric Review of Symptoms/Medical Review of Systems: Video Visit via Real-time Synchronous Audiovisual Provider Location: [facility] [address] [place] [address] Patient Location: patient's office in [place], [place] Video Visit Consent Statement: I discussed [...] that there are some limitations compared to xzlg-td-qgbu evaluations. The patient consented to the presence of additional virtual and/or in-person participants. We elected to proceed. Jessee is a 33 y.o. female, established patient, and is logged on via [employer] for a follow-up video visit. HPI: Jessee reports she is feeling about the same since last visit. She was unable to tell the difference between taking the immediate release Adderall. She expresses frustrations with still feeling easily distractible. She has had a lot going on since the holidays. She enjoyed Gina and new 's with her immediate family. She traveled to [place] to see her parents, which went well. [...] Moderate episode of recurrent major depressive disorder ([facility]) Generalized anxiety disorder Attention deficit hyperactivity [...] major depressive disorder (CMS-HCC) Generalized anxiety disorder Medication Changes: yes start [...] Leon 05/02/23 1746 documented in this encounter [facility] 05-02-2023 Progress note Formatting of t his note is different from the original. [address] [facility] [address] Patient: Jessee Almodovar Date of : 1990 Encounter Date: 05/02/2023 History of Present Illness/Psychiatric Review of Symptoms/Medical Review of Systems: Video Visit via Real-time Synchronous Audiovisual Provider Location: [facility] [address] [place] [address] Patient Location: patient's office in [place], [place] Video Visit Consent Statement: I discussed [...] that there are some limitations compared to nfjp-mo-yugx evaluations. The patient consented to the presence of additional virtual and/or in-person participants. We elected to proceed. Jessee is a 33 y.o. female, established patient, and is logged on via [employer] for a follow-up video visit. HPI: Jessee reports she is feeling about the same since last visit. She was unable to tell the difference between taking the immediate release Adderall. She expresses frustrations with still feeling easily distractible. She has had a lot going on since the holidays. She enjoyed Gina and new 's with her immediate family. She traveled to [place] to see her parents, which went well. [...] Moderate episode of recurrent major depressive disorder ([facility]) Generalized anxiety disorder Medication Changes: yes [...] CNP, PMP-. BARAK De Leon 05/02/23 1746 [facility] 02-25-2023 Instructions Tiana Cronin PA-C - 02/25/2023 1:56 PM EST Images from the original note were not included. MRI right hip Home exercises Continue with NSAIDS CSI right hip- may repeat in 3 months if needed documented in this encounter [facility] 02-25-2023 Note HNO ID: [id number] Author: Rosas Mckinney MD Service: ? Author [...] given from AAOS (more content not included)... [facility] 02-25-2023 History of Present illness Narrative Associated [...] trochanteric bursa Informed Consent Consent Obtained: Verbal Brewer Protocol A moment to CARE was completed. [...] Time: 10:49 PM documented in this encounter [facility] 11-02-2023 History of Present illness Narrative Radiology Service [...] 2023 8:45 AM documented in this encounter [facility] 02-20-2023 Note HNO ID: [id number] Author: Kathrine Smith RT(Kena) Service: ? Author [...] RT Francisco(R) February 20, 2023 8:45 AM [facility] 02-17-2023 Miscellaneous Notes Jourdan Atkins, My MA Karyna is having quite a bit of pain and dysfunction in the right hip. Most days in the mornings especially, are excruciating for her and she's unable to sleep on her right side. Would you mind to see her again please? I can get additional imaging first, if you'd like. Thanks, Td. documented in this encounter [facility] 08-01-2022 History of Present illness Narrative [...] 2022 9:04 AM documented in this encounter [facility] 07-10-2022 Evaluation note Encounter Date Diagnosis Assessment Notes Jun, Constipation (ICD-10 - K59.00) Jun, Change in bowel habits (ICD-10 - R19.4) Jun, Diarrhea (ICD-10 - R19.7) Patient to start Align probiotic. Jun, Bloating (ICD-10 - R14.0) [facility] Other 02-05-2023 Hospital Discharge instructions Patient Education 05/26/2022 10:06:58 Strep Throat, Adult, Vnrf-wc-Qlul Strep Throat, Adult Strep throat is an [...] Follow these instructions at home: Medicines Take vegj-iwg-hqinyao and prescription medicines only as told by [...] 09/23/2008 Document Revised: 06/25/2019 Document Reviewed: 06/25/2019 [facility] Patient Education 2020 [facility] 05/26/2022 10:06:56 BMI for Adults BMI for [...] height. This can be done either in [place] or metric measurements. Note that charts are available to help you find your BMI quickly and easily without having to do these calculations yourself. To calculate your BMI in [place] measurements, your health care provider will: [...] medical problems. BMI can be measured using [place] measurements or metric measurements. To interpret your [...] 12/17/2004 Document Revised: 03/20/2018 Document Reviewed: 02/18/2018 [facility] Patient Education 2020 [employer]. Follow Up Care 05/26/2022 09:09:50 With:CHELSEA KRAUS DO Address: [facility] [address] [place] [address]- When: Unknown [facility] 11-08-2022 History of Present [...] she has undergone a workup with her optometrist. She states she underwent a CT scan [...] abdominal pain with planned GI followup, as mica paster workup so far is unremarkable. Patient does [...] being sent back to Roni Dumas via [employer]School Admissions Senior Cobol Developer or Chart CC for [facility] Providers. Rosas Mckinney MD Jewelry Model Maker, Orthopaedic Surgery Division of Musculoskeletal Oncology [facility] Evaluation + Plan note Extracted from: Title:ED Note Author:Jose BALL, Mohan Diamond te:02/23/22 Sprain of left foot (S93.602 A: Unspecified sprain of left foot, initial encounter) Orders: Crutches Elastic Bandage Application XR Foot 3+ Views Left [facility]11-05-2022 Hospital Discharge instructions Patient Education 02/23/2022 [...] fully hardened. This may takeseveral hours. Take reor-gfb-badwmug and prescription medicines only as told by [...] 09/27/2002 Document Revised: 04/11/2018 Document Reviewed: 04/11/2018 [facility] Patient Education 2020 [employer]. 02/23/2022 11:07:01 How to Use Cold Therapy, Nomf-ju-Lbge How to Use Cold Therapy Cold therapy, [...] 09/23/2008 Document Revised: 01/04/2019 Document Reviewed: 01/04/2019 [facility] Patient Education 2020 [employer]. 02/23/2022 11:07:01 Elastic Bandage and RICE Therapy [...] limityour activities and whether you should start ttajq-dm-gvwnhs exercises for your injury. Ice Ice your [...] 09/27/2002 Document Revised: 12/26/2017 Document Reviewed: 12/26/2017 [facility] Patient Education 2020 [email or web address] Follow Up Care 02/23/2022 09:05:48 With:CHELSEA KRAUS Address: [employer] [address] [place], [place] [id number]- Business (1) When:02/26/2022 10:46:43 Comments:Follow-up with your primary care provider in 3 to 5 days. If symptoms worsen, do not improve, or new symptoms arise please report back to emergency department for further evaluation. [facility]10-31-2022 History of Present illness Narrative* Kathrine [...] 18, 2022 3:09 PM [facility] Nurse Note* Lillie Smith - 11/08/2021 11:25 AM EDT UA performed as ordered. Lillie Smith [facility] History of Present illness Narrative* Macy Jones APRN.CNP - 10/04/2021 3:36 PM EDT Physical [facility] History general Narrative - Reported* Type Description Date Medical History Bernardo's thyroiditis Medical History Post- depression 2019 Surgical History D & C d/t miscarriage 08/2015 Surgical History LEEP 2012 Hospitalization History child [facility] Other Evaluation note* Diagnosis Acute bilateral low back pain with bilateral sciatica- Primary [facility] Diagnosis Pelvic pain- Primary [facility]* Diagnosis Dysuria- Primary [facility]* Diagnosis Dysuria- Primary [facility]* Diagnosis Unspecified hypothyroidism- Primary [facility]* Diagnosis Lytic bone lesion of femur- Primary [facility]* Diagnosis Moderate episode of recurrent major depressive disorder (HCC)- Primary [facility]* Diagnosis Unspecified hypothyroidism- Primary Essential hypertension, malignant Lipids blood increased Other and unspecified hyperlipidemia Vegans' anemia Other vitamin B12 deficiency anemia [facility] Diagnosis Lytic bone lesion of femur- Primary [facility] Diagnosis Lytic bone lesion of femur- Primary Greater trochanteric bursitis of right hip Enthesopathy of hip region Chronic pain of right hip Chronic low back pain, unspecified back pain laterality, unspecified whether sciatica present Pain of right hip Bone lesion Disorder of bone and cartilage, unspecified [facility] Diagnosis Attention deficit hyperactivity disorder (ADHD), predominantly 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 ([facility]) Generalized anxiety disorder [facility] Diagnosis Irregular menses- Primary Irregular menstrual cycle documented in this encounter [facility]* Diagnosis Lytic bone lesion of femur [facility] Diagnosis Lytic bone lesion of femur [facility] Diagnosis Lytic bone lesion of femur [facility]* Diagnosis 33 weeks gestation of Third trimester state, incidental Low iron Unspecified iron deficiency anemia Nonintractable headache, unspecified chronicity pattern, unspecified headache type Constipation, unspecified constipation type documented in this encounter [facility] HealthcareHospital course Narrative No data available for this section [facility]* Attachments The following attachments cannot be sent through Care Everywhere. * Methylphenidate, ADULT ([place]) [facility] No data available for this section [facility] (narrative)* Diagnostic Procedure Only (Routine) - Pending Review Specialty Diagnoses / Procedures Referred By Bry pittman Referred To Contact XR IMAGING Diagnoses Lytic bone lesion of femur Procedures XR HIP GENERAL 3V PELV/AP/LAT RIGHT RADEX HIP UNILATERAL WITH PELVIS 2-3 VIEWS Rosas Mckinney MD [address] [place] [address] Xr Imaging Referral ID Status Reason Start Date Expiration Date Visits Requested Visits Authorized [id number] Pending Review Auto-Generat ed Referral 08/26/2022 03/28/2023 1 1 [facility] for referral (narrative)* Diagnostic Procedure Only (Routine) - Pending Review Specialty Diagnoses / Procedures Referred By Bry pittman Referred To Contact XR IMAGING Diagnoses Lytic bone lesion of femur Procedures XR HIP GENERAL 3V PELV/AP/LAT RIGHT RADEX HIP UNILATERAL WITH PELVIS 2-3 VIEWS Tiana Cronin PA-C [address] [place] [address] Xr Imaging [place] [address] Referral ID Status Reason Start Date Expiration Date Visits Requested Visits Authorized [id number] Pending Review Auto-Generat ed Referral 03/18/2024 1 1 [facility] for referral (narrative)* Diagnostic Procedure Only (Routine) - Closed Specialty Diagnoses / Procedures Referred By Contac t Referred To Contact XR IMAGING Diagnoses Lytic bone lesion of femur Procedures XR HIP GENERAL 3V PELV/AP/LAT RIGHT RADEX HIP UNILATERAL WITH PELVIS 2-3 VIEWS Roni Dumas MD [address] [place] [address] [place] [address] Referral ID Status Reason Start Date Expiration Date V isits Requested Visits Authorized [id number] Closed Auto-Generate d Referral 02/17/2023 03/18/2024 1 1 [facility] for referral (narrative)* Diagnostic Procedure Only (Routine) - Closed Specialty Diagnoses / Procedures Referred By Contac t Referred To Contact XR IMAGING Diagnoses Lytic bone lesion of femur Procedures XR HIP GENERAL 3V PELV/AP/LAT RIGHT RADEX HIP UNILATERAL WITH PELVIS 2-3 VIEWS Rosas Mckinney MD [address] [place] [address] [place] [address] Referral ID Status Reason Start Date Expiration Date V isits Requested Visits Authorized [id number] Closed Auto-Generate d Referral 08/26/2022 03/28/2023 1 1 T [facility] for referral (narrative)* Diagnostic Procedure Only (Routine) - Closed Specialty Diagnoses / Procedures Referred By Contac t Referred To Contact XR IMAGING Diagnoses Lytic bone lesion of femur Procedures XR HIP GENERAL 3V PELV/AP/LAT RIGHT RADEX HIP UNILATERAL WITH PELVIS 2-3 VIEWS Roni Dumas MD [address] [place] [address] [place] [address] Referral ID Status Reason Start Date Expiration Date V isits Requested Visits Authorized [id number] Closed Auto-Generate d Referral 02/18/2022 03/20/2023 1 1 [facility] Reason for Referral Specialty Diagnoses / Procedures Referred By Contac t Referred To Contact [facility] Diagnoses Acute bilateral low back pain with bilateral sciatica Procedures CONSULT TO PHYSICAL THERAPY PHYSICAL THERAPY EVALUATION HIGH COMPLEX 45 MINS Macy Jones, DIVISION OPERATIONS SPECIALIST.LEASING PROPERTY MANAGER [address] [place] [address] [place] [address] [facility] [place] [address] [place] [phone] Referral ID Status Reason Start Date Expiration Date Visits Requested Visits Authorized [id number] Pending Review Auto-Generat ed Referral 10/04/2021 10/04/2022 1 1 Specialty Diagnoses / Procedures Referred By Contac t Referred To Contact MR IMAGING Diagnoses Greater trochanteric bursitis of right hip Chronic pain of right hip Pain of right hip Bone lesion Procedures MRI HIP WO IVCON RIGHT MRI ANY JT LOWER EXTREM W/O CONTRAST MATRL Tiana Cronin, LIZZY [address] [place] [id number] Mr Imaging [facility] Referral ID Status Reason Start Date Expiration Date Visits Requested Visits Authorized [id number] Authorized Auto-Generat ed Referral 02/25/2023 03/26/2024 1 [...] or prosecute any alcohol or drug abuse patient.[facility] HospitalIn the event this information is protected by the Federal Confidentiality of Alcohol and Drug Abuse Patient Records regulations: The Federal rules restrict any use of the information to criminally investigate or prosecute any alcohol or drug abuse patient.[facility] HospitalIn the event this information is protected by the Federal Confidentiality of Alcohol and Drug Abuse Patient Records regulations: The Federal rules restrict any use of the information to criminally investigate or prosecute any alcohol or drug abuse patient.[facility] HospitalIn the event this information is protected by the Federal Confidentiality of Alcohol and Drug Abuse Patient Records regulations: The Federal rules restrict any use of the information to criminally investigate or prosecute any alcohol or drug abuse patient.[facility] HospitalIn the event this information is protected by the Federal Confidentiality of Alcohol and Drug Abuse Patient Records regulations: The Federal rules restrict any use of the information to criminally investigate or prosecute any alcohol or drug abuse patient.[facility] HospitalIn the event this information is protected by the Federal Confidentiality of Alcohol and Drug Abuse Patient Records regulations: The Federal rules restrict any use of the information to criminally investigate or prosecute any alcohol or drug abuse patient.[facility] HospitalIn the event this information is protected by the Federal Confidentiality of Alcohol and Drug Abuse Patient Records regulations: The Federal rules restrict any use of the information to criminally investigate or prosecute any alcohol or drug abuse patient.[facility] HospitalIn the event this information is protected by the Federal Confidentiality of Alcohol and Drug Abuse Patient Records regulations: The Federal rules restrict any use of the information to criminally investigate or prosecute any alcohol or drug abuse patient.[facility] HospitalIn the event this information is protected by the Federal Confidentiality of Alcohol and Drug Abuse Patient Records regulations: The Federal rules restrict any use of the information to criminally investigate or prosecute any alcohol or drug abuse patient.[facility] HospitalIn the event this information is protected by the Federal Confidentiality of Alcohol and Drug Abuse Patient Records regulations: The Federal rules restrict any use of the information to criminally investigate or prosecute any alcohol or drug abuse patient.[facility] HospitalIn the event this information is protected by the Federal Confidentiality of Alcohol and Drug Abuse Patient Records regulations: The Federal rules restrict any use of the information to criminally investigate or prosecute any alcohol or drug abuse patient.[facility] HospitalIn the event this information is protected by the Federal Confidentiality of Alcohol and Drug Abuse Patient Records regulations: The Federal rules restrict any use of the information to criminally investigate or prosecute any alcohol or drug abuse patient.[facility] HospitalIn the event this information is protected by the Federal Confidentiality of Alcohol and Drug Abuse Patient Records regulations: The Federal rules restrict any use of the information to criminally investigate or prosecute any alcohol or drug abuse patient.[facility] Patient Care team informatio n (unrecognized section and content) Dress Fitter Relationship Specialty Start Date End Date Anupama Brown DO [address] [place] [address] PCP - General Family Medicine 07/25/22 Emile Mesa MD [address] [address] Gastroenterology 07/25/22 Guillaume Vasquez, DO [address] [facility] [place] [address] MARINA DRY DOCK MANAGER 07/25/22 Dress Fitter Relationship Specialty Start Date End Date Anupama Brown, DO [address] [place] [address] PCP - General Family Medicine 07/25/22 Emile Mesa MD [address] [facility] [address] [place] [address] Gastroenterology 07/25/22 Guillaume Vasquez, DO [address] [facility] [address] [address] MARINA DRY DOCK MANAGER 07/25/22 Dress Fitter Relationship Specialty Start Date End Date Anupama Brown, DO [address] [place] [address] PCP - General Family Medicine 07/25/22 Emile Mesa MD [address] [address] Gastroenterology 07/25/22 Guillaume Vasquez, DO [address] [facility] [place] [address] MARINA DRY DOCK MANAGER 07/25/22 Dress Fitter Relationship Specialty Start Date End Date Anupama Brown, [address] [place] [address] PCP - General Family Medicine 07/25/22 Emile Mesa MD [address] [place] [address] [place] [address] Gastroenterology 07/25/22 Guillaume Vasquez DO [address] [facility] [place] [address] MARINA DRY DOCK MANAGER 07/25/22 Dress Fitter Relationship Specialty Start Date End Date Chelsea Kraus DO [address] [facility] [address] [place] [address] PCP - General Family Medicine 07/02/19 Dress Fitter Relationship Specialty Start Date End Date Anupama Brown MD [address] [place] [id number] PCP - General Family Medicine 03/04/23 Dress Fitter Relationship Specialty Start Date End Date Anupama Brown MD [address] [place] [phone] PCP - General Family Medicine 03/04/23 Dress Fitter Relationship Specialty Start Date End Date Anupama Brown DO [address] [place] [address] PCP - General Family Medicine 07/25/22 Emile Mesa MD [address] [place] [address] [place] [address] Gastroenterology 07/25/22 Guillaume Vasquez DO [address] [place] [address] Supervisor Capacitor Processing 07/25/22 Dress Fitter Relationship Specialty Start Date End Date Anupama Brown DO [address] [place] [address] PCP - General Family Medicine 07/25/22 Emile Mesa MD [address] [place] [address] [address] [place] [address] Gastroenterology 07/25/22 Guillaume Vasquez DO [address] [place] [address] [place] [address] Supervisor Capacitor Processing 07/25/22 Dress Fitter Relationship Specialty Start Date End Date Anupama Brown MD [address] [place] [phone] PCP - General Family Medicine 03/04/23 Dress Fitter Relationship Specialty Start Date End Date Anupama Brown MD [address] [place] [phone] PCP - General Family Medicine 03/04/23 Reason for Visit (unrecogniz ed section and content) Reason Comments New Pain Tumor/Mass Specialty Diagnoses / Procedures Referred By Contac t Referred To Contact Orthopedics Diagnoses Lytic bone lesion of femur Procedures CONSULT TO ORTHOPAEDICS OFFICE/OUTPATIENT NEW HIGH MDM 60-74 MINUTES Roni Dumas MD [address] [place] [address] [place] [address] Referral ID Status Reason Start Date Expiration Date V isits Requested Visits Authorized [id number] Closed PCP Requested Referral 02/18/2022 02/18/2023 1 1 Reason Comments New Pain Reason Comments Radio Gen RMP Specialty Diagnoses / Procedures Referred By Contac t Referred To Contact XR IMAGING Diagnoses Lytic bone lesion of femur Procedures XR HIP GENERAL 3V PELV/AP/LAT RIGHT RADEX HIP UNILATERAL WITH PELVIS 2-3 VIEWS Abhyankar, Roni, MD [address] [facility] [place] [address] [place] [address] Referral ID Status Reason Start Date Expiration Date V isits Requested Visits Authorized [id number] Closed Auto-Generate d Referral 02/17/2023 03/18/2024 1 1 Specialty Diagnoses / Procedures Referred By Contac t Referred To Contact XR IMAGING Diagnoses Lytic bone lesion of femur Procedures XR HIP GENERAL 3V PELV/AP/LAT RIGHT RADEX HIP UNILATERAL WITH PELVIS 2-3 VIEWS Rosas Mckinney MD [address] [place] [address] [place] [address] Referral ID Status Reason Start Date Expiration Date V isits Requested Visits Authorized [id number] Closed Auto-Generate d Referral 08/26/2022 03/28/2023 1 1 Referral ID Status Reason Start Date Expiration Date V isits Requested Visits Authorized [id number] Closed Auto-Generate d Referral 02/18/2022 03/20/2023 1 1 Reason Comments Routine Visit INFORMATION SOURCE (unrecogn ized section and content) DATE CREATED AUTHOR 05/08/2022 [facility] DATE CREATED AUTHOR AUTHOR'S ORGANIZ ATION 05/26/2022 [facility] DATE CREATED AUTHOR AUTHOR'S ORGANIZ ATION 05/04/2023 [facility] DATE CREATED AUTHOR AUTHOR'S ORGANIZ ATION 06/06/2023 [facility] DATE CREATED AUTHOR AUTHOR'S ORGANIZ ATION 10/17/2023 [facility] DATE CREATED AUTHOR AUTHOR'S ORGANIZ ATION 01/20/2024 [facility] DATE CREATED AUTHOR AUTHOR'S ORGANIZ ATION 01/28/2024 [facility] EPIC FOR RECORDS PERTAINING TO [...] BE BASED ON THE PRIMARY CLINICAL RECORDS. [facility]. provides no warranty or guarantee of the accuracy or completeness of information in this document.
[2024-02-04 09:24] VITALS: BP 131/80; PULSE 106
== END 2024-02-04 09:53 | disposition home or self-care (01) ==
LOC: FBCO 06:59 → FBC 09:17
PROVIDERS: Visit Provider Obstetrics & Gynecology
DX: O40.3XX0 Polyhydramnios, third trimester, not applicable or unspecified (principal); Z3A.34 34 weeks gestation of pregnancy
CPT/HCPCS: 59025

== ENCOUNTER 2024-02-07 07:27 | Outpatient (OUT) | payer OTHER, SELFPAY ==
--- NOTE | 2024-02-07 | US_ITS ---
[address] [address] Patient Name: JESSEE JEFFERS MRN: [id number] date: 1990 Sex: F Assigned Patient Location: Current Patient Location: Accession/Order Number: [id number] Exam Date: 02/07/2024 13:01 Report Date: 02/09/2024 07:33 At the request of: TEE RUBIN Procedure: US OB BPP w non-stress EXAMINATION: US OB BPP w non-stress HISTORY: Excessive growth O36.63x0 COMPARISON: No relevant comparison available. TECHNIQUE: Ultrasound biophysical profile was performed in the radiology department. non-reactive stress testing was performed by nursing staff in the birthing center. FINDINGS: BREATHING MOVEMENTS: 2 GROSS BODY MOVEMENTS: 2 TONE: 2 QUALITATIVE AMNIOTIC FLUID VOLUME: 2 PRESENTATION: CEPHALIC HEART RATE: 127.96 bpm AMNIOTIC FLUID VOLUME: 25.2 cm GESTATIONAL AGE: 35 weeks 2 days US/US OB BPP w non-stress IMPRESSION: Total biophysical profile score: 8 Electronically authenticated by: EMELIA STEWART Date: 02/09/2024 07:33
--- OUTSIDE RECORDS SUMMARY | 2024-02-07 07:30 | XMS_ITS | CCD ---
Author Organization [facility] Care Team Providers Care Practice Manager Name Role Phone Unavailable Primary Care Provider [...] Unavailable PEDRO, DR OLIVEIRA Primary Care Unavailable INGRAM, DR EMELIA Luna Consulting Unavailable PEDRO, DR OLIVEIRA Consulting Unavailable Chayo Anne Attending Unavailable Roxanne MOSLEY Attending Unavailable [place]ak[place], Imad Unavailable Anupama Brown DO Primary Care Provider Emile Mesa MD Unavailable Guillaume Vasquez DO Unavailable Anupama Brown DO Primary Care Provider Emile Mesa MD Unavailable Chelsea Kraus DO Primary Care Provider [phone] ASIF SCHAEFER Attending Unavailable CHELSEA KRAUS Referring [...] e PEDRO, GUILLAUME R Referring Unavailable [facility], [facility] Primary Care Unavailabl e [facility]EVIN, [facility] Primary Care Unavailabl e FRANNY SANDERSON Referring Unavailable PEDRO, GUILLAUME R Referring Unavailable KEVIN, [facility] Primary Care Unavailabl e PEDRO, GUILLAUME R Referring Unavailable KEVIN, [facility] Care Unavailabl e KEVIN, [facility] Primary Care Unavailabl e ASIF SCHAEFER Referring Unavailable KEVIN, [facility] Primary Care Unavailabl e KEVIN, [facility] Primary Care Unavailabl e KEVIN, [facility] Primary Care Unavailabl e ROSAS MCKINNEY Attending Unavailable ABHYANKAR, RONI Referring Unavailable KEVIN, [facility] Primary Care Unavailabl e ABHYANKAR, RONI Referring Unavailable KEVIN, [facility] Primary Care Unavailabl e KEVIN, [facility] Primary Care Unavailabl e PEDROMICHAELY Attending Unavailable [...] day(s), # 20 cap(s), Refills(s) 0, Pharmacy: [facility], 172, cm, 05/26/22 9:34:00 [...] other medications Take 1 capsule by mo [facility] once daily. 20-30 minutes before eating or taking other medications Take 1 tablet by [facility] once daily in the morning, 20-30 minutes [...] therapy) Start: 02-11-2023 take 1 capsule by [facility] once daily in the morning amphetamine-dextroamphetamine XR [...] Comment on above: Take 1 capsule by [facility] twice daily. escitalopram 20 mg oral tablet [...] Comment on above: Take 1 tablet by [facility] once daily. fluconazole 150 mg oral tablet (8 sources) Azole Antifungal Start: 02-07-20 End: 02-26-20 take 1 tablet by mouth once fluconazole (DIFLUCAN) 150 mg tablet 1 (one) tablet by mouth one time dose 1 tablet 1 02/06/2022 02/25/2023 Discontinued Comment on above: 1 (one) tablet by [facility] one time dose hydrOXYzine hydrochloride 50 mg [...] Comment on above: Take 1 tablet by [facility] three times daily as needed. 10 [...] 02/25/2023 Discontinued Start: 08-23-2020 End: 02-25-2023 medroxyPROGESTERone (DEPO-HI OVERA) 150 mg/mL injection Indications: Excessive or [...] Translations: [Hypothyroidism, unspecified] Chronic Unclassified (1 source) [facility] video visit Onset: 10-16-2023 Past or [...] UA Negative Negative - 4(70) +++ mg/dL [facility] Blood, UA Negative Negative - 50 Pepito/mcL [facility] Clarity, UA Clear [facility] Color, UA Yellow [facility] Glucose, UA Negative Negative - 2000(110) ++++ mg/dL [facility] Interpretation and review of laboratory results Normal [facility] Ketones, UA Negative Negative - 160(16) ++++ mg/dL [facility] Leukocytes, UA Negative Negative - 500+++ Ilia/mcL [facility] Nitrite, UA Negative Negative - Positive [facility] pH, UA 5.5 5 - 9 [facility] Protein, UA Negative Negative - 2000(20) ++++ mg/dL [facility] Spec Grav, UA 1.020 1 - 1.03 [facility] Urobilinogen, UA 0.2 0.2 - 12 mg/dL [facility] CBC W Auto Differential pane l (Bld)on 01-19-2024 Basophils (Bld) [#/Vol] 10*3/uL Normal <0.11 [facility] Comment on above: Order Comment: Speci men Type: BLOOD SPECIMEN Ordering Facility: External Submitter Address: , , Performed By: #### 5 5454-3 #### [facility] CLIA [id number] [address] [place] [address] [place] Basophils/100 WBC (Bld) 0.2 % Normal [facility] Comment on above: Order Comment: Speci men Type: BLOOD SPECIMEN Ordering Facility: External Submitter Address: , , Performed By: #### 5 5454-3 #### [facility] CLIA [id number] [address] [place] [address] [place] Differential cell count method Nom (Bld) Auto Normal [facility] Comment on above: Order Comment: Speci men Type: BLOOD SPECIMEN Ordering Facility: External Submitter Address: , , Performed By: #### 2 9854-3 #### [facility] CLIA [id number] [address] [place] [address] [place] Eosinophils (Bld) [#/Vol] 0.06 10*3/uL Normal <0.46 [facility] Comment on above: Order Comment: Speci men Type: BLOOD SPECIMEN Ordering Facility: External Submitter Address: , , Performed By: #### 5 5454-3 #### [facility] CLIA [id number] [address] [place] [address] [place] Eosinophils/100 WBC (Bld) 0.6 % Normal [facility] Comment on above: Order Comment: Speci men Type: BLOOD SPECIMEN Ordering Facility: External Submitter Address: , , Performed By: #### 5 5454-3 #### [facility] CLIA [id number] [address] [place] [address] [place] Erythrocyte distribution width (RBC) [Ratio] 13.3 % Normal 11.5-15.0 [facility] Comment on above: Order Comment: Speci men Type: BLOOD SPECIMEN Ordering Facility: External Submitter Address: , , Performed By: #### 5 5454-3 #### [facility] CLIA [id number] [address] [place] [address] [place] Hematocrit (Bld) [Volume fraction] 32.8 % Low 36.0-46.0 [facility] Comment on above: Order Comment: Speci men Type: BLOOD SPECIMEN Ordering Facility: External Submitter Address: , , Performed By: #### 5 5454-3 #### [facility] CLIA [id number] [address] [place] [address] [place] Hemoglobin (Bld) [Mass/Vol] 10.7 g/dL Low 11.5-15.5 [facility] Comment on above: Order Comment: Speci men Type: BLOOD SPECIMEN Ordering Facility: External Submitter Address: , , Performed By: #### 5 5454-3 #### [facility] CLIA [id number] [address] [place] [address] [place] Immature granulocytes (Bld) [#/Vol] 0.05 10*3/uL Normal <0.10 [facility] Comment on above: Order Comment: Speci men Type: BLOOD SPECIMEN Ordering Facility: External Submitter Address: , , Performed By: #### 5 5454-3 #### [facility] CLIA [id number] [address] [place] [address] [place] Immature granulocytes/100 WBC (Bld) 0.5 % Normal [facility] Comment on above: Order Comment: Speci men Type: BLOOD SPECIMEN Ordering Facility: External Submitter Address: , , Performed By: #### 5 5454-3 #### [facility] CLIA [id number] [address] [place] [address] [place] Lymphocytes (Bld) [#/Vol] 1.55 10*3/uL Normal 1.00-4.00 [facility] Comment on above: Order Comment: Speci men Type: BLOOD SPECIMEN Ordering Facility: External Submitter Address: , , Performed By: #### 5 5454-3 #### [facility] CLIA [id number] [address] [place] [address] [place] Lymphocytes/100 WBC (Bld) 15.1 % Normal [facility] Comment on above: Order Comment: Speci men Type: BLOOD SPECIMEN Ordering Facility: External Submitter Address: , , Performed By: #### 5 5454-3 #### [facility] CLIA [id number] [address] [place] [address] [place] MCH (RBC) [Entitic mass] 27.8 pg Normal 26.0-34.0 [facility] Comment on above: Order Comment: Speci men Type: BLOOD SPECIMEN Ordering Facility: External Submitter Address: , , Performed By: #### 5 5454-3 #### [facility] CLIA [id number] [address] [place] [address] [place] MCHC (RBC) [Mass/Vol] 32.6 g/dL Normal 30.5-36.0 [facility] Comment on above: Order Comment: Speci men Type: BLOOD SPECIMEN Ordering Facility: External Submitter Address: , , Performed By: #### 5 5454-3 #### [facility] CLIA [id number] [address] [place] [address] [place] MCV (RBC) [Entitic vol] 85.2 fL Normal 80.0-100.0 [facility] Comment on above: Order Comment: Speci men Type: BLOOD SPECIMEN Ordering Facility: External Submitter Address: , , Performed By: #### 5 5454-3 #### [facility] CLIA [id number] [address] [place] [address] [place] Monocytes (Bld) [#/Vol] 0.77 10*3/uL Normal <0.87 [facility] Comment on above: Order Comment: Speci men Type: BLOOD SPECIMEN Ordering Facility: External Submitter Address: , , Performed By: #### 5 5454-3 #### [facility] CLIA [id number] [address] [place] [address] [place] Monocytes/100 WBC (Bld) 7.5 % Normal [facility] Comment on above: Order Comment: Speci men Type: BLOOD SPECIMEN Ordering Facility: External Submitter Address: , , Performed By: #### 5 5454-3 #### [facility] CLIA [id number] [address] [place] [address] [place] Neutrophils (Bld) [#/Vol] 7.81 10*3/uL High 1.45-7.50 [facility] Comment on above: Order Comment: Speci men Type: BLOOD SPECIMEN Ordering Facility: External Submitter Address: , , Performed By: #### 5 5454-3 #### [facility] CLIA [id number] [address] [place] [address] [place] Neutrophils/100 WBC (Bld) 76.1 % Normal [facility] Comment on above: Order Comment: Speci men Type: BLOOD SPECIMEN Ordering Facility: External Submitter Address: , , Performed By: #### 5 5454-3 #### [facility] CLIA [id number] [address] [place] [address] [place] Nucleated RBC (Bld) [#/Vol] 10*3/uL Normal <0.01 [facility] Comment on above: Order Comment: Speci men Type: BLOOD SPECIMEN Ordering Facility: External Submitter Address: , , Performed By: #### 5 5454-3 #### [facility] CLIA [id number] [address] [place] [address] [place] Nucleated RBC/100 WBC (Bld) [Ratio] 0.0 /100 WBC Normal [facility] Comment on above: Order Comment: Speci men Type: BLOOD SPECIMEN Ordering Facility: External Submitter Address: , , Performed By: #### 5 5454-3 #### [facility] CLIA [id number] [address] [place] [address] [place] Platelet mean volume (Bld) [Entitic vol] 11.3 fL Normal 9.0-12.7 [facility] Comment on above: Order Comment: Speci men Type: BLOOD SPECIMEN Ordering Facility: External Submitter Address: , , Performed By: #### 5 5454-3 #### [facility] CLIA [id number] [address] [place] [address] [place] Platelets (Bld) [#/Vol] 172 10*3/uL Normal 150-400 [facility] Comment on above: Order Comment: Speci men Type: BLOOD SPECIMEN Ordering Facility: External Submitter Address: , , Performed By: #### 5 5454-3 #### [facility] CLIA [id number] [address] [place] [address] [place] RBC (Bld) [#/Vol] 3.85 10*6/uL Low 3.90-5.20 [facility] Comment on above: Order Comment: Speci men Type: BLOOD SPECIMEN Ordering Facility: External Submitter Address: , , Performed By: #### 5 5454-3 #### [facility] IA [id number] [address] [place] [address] [place] WBC (Bld) [#/Vol] 10.26 10*3/uL Normal 3.70-11.00 [facility] Comment on above: Order Comment: Speci men Type: BLOOD SPECIMEN Ordering Facility: External Submitter Address: , , Performed By: #### 5 5454-3 #### [facility] IA [id number] [address] [place] [address] [place] T4 Free SerPl-mCncon 024 Free T4 [Mass/Vol] 0.9 ng/dL Normal 0.9-1.7 [facility] Comment on above: Order Comment: Speci men Type: BLOOD SPECIMEN Ordering Facility: [facility] Address: [address] [place] [address] , [place] [address] Performed By: #### 3 024-7, 3016-3 #### [facility] IA [id number] [address] [place] [address] [place] TSH SerPl-aCncon 01-05-2024 TSH Qn 1.220 m[IU]/L Normal 0.270-4.200 [facility] Comment on above: Order Comment: [...] Nassar et al. 2017 Guidelines of the [place] [employer] for the Diagnosis and Management of Thyroid Disease during and the . Thyroid, 2017:27:3:315-389. Performed By: #### 5 5454-3 #### [facility] CLIA [id number] [facility] [place] [address] [place] T4 Free SerPl-mCncon 024 Free T4 [Mass/Vol] 1.1 ng/dL Normal 0.9-1.7 [facility] Comment on above: Order Comment: Specbertha mares Type: BLOOD SPECIMEN Ordering Facility: [facility] Address: [facility] [address] [place] [address] Performed By: #### 3 024-7, 3016-3 #### [facility] CLIA [id number] [address] [place] [address] [place] TSH SerPl-aCncon 12-08-2023 TSH Qn 0.607 m[IU]/L Normal 0.270-4.200 [facility] Comment on above: Order Comment: Speci vishnu Type: BLOOD SPECIMEN Ordering Facility: [facility] Address: [facility] [address] [place] [address] Result Comment: If t he patient is , TSH reference range varies by gestational period: First Trimester (weeks 9-12): 0.180-2.990 mIU/L Second Trimester: 0.110-3.980 mIU/L Third Trimester: 0.480-4.710 mIU/L Manuel Grayson et al. A Practical Approach for the Verifications and Determination of Site- and Trimester-Specific Reference Intervals for Thyroid Function tests in . Thyroid, 2019:29:3:412-420. Emanuel Nassar et al. 2017 Guidelines of the [place] Thy[employer] for the Diagnosis and Management of Thyroid Disease during and the . Thyroid, 2017:27:3:315-389. Performed By: #### 3 024-7, 3016-3 #### [facility] CLIA [id number] [address] [place] [address] [place] CBC W Auto Differential pane l (Bld)on 11-20-2023 Basophils (Bld) [#/Vol] 0.04 10*3/uL Normal <0.11 [facility] Comment on above: Order Comment: Speci men Type: BLOOD SPECIMEN Ordering Facility: [facility] Address: [address] [place] [address] Performed By: #### 5 7021-8 #### [facility] CLIA [id number] [address] [place] [address] Basophils/100 WBC (Bld) 0.6 % Normal [facility] Comment on above: Order Comment: Speci men Type: BLOOD SPECIMEN Ordering Facility: [facility] Address: [address] [place] [address] Performed By: #### 5 7021-8 #### [facility] CLIA [id number] [address] [place] [address] Differential cell count method Nom (Bld) Auto Normal [facility] Comment on above: Order Comment: Speci men Type: BLOOD SPECIMEN Ordering Facility: [facility] Address: [address] [place] [address] Performed By: #### 5 7021-8 #### [facility] CLIA [id number] [address] [place] [address] Eosinophils (Bld) [#/Vol] 0.05 10*3/uL Normal <0.46 [facility] Comment on above: Order Comment: Speci men Type: BLOOD SPECIMEN Ordering Facility: [facility] Address: [address] [place] [address] Performed By: #### 5 7021-8 #### [facility] CLIA [id number] [address] [place] [address] Eosinophils/100 WBC (Bld) 0.7 % Normal [facility] Comment on above: Order Comment: Speci men Type: BLOOD SPECIMEN Ordering Facility: [facility] Address: [address] [place] [address] Performed By: #### 5 7021-8 #### [facility] CLIA [id number] [address] [place] [address] Erythrocyte distribution width (RBC) [Ratio] 12.9 % Normal 11.5-15.0 [facility] Comment on above: Order Comment: Speci men Type: BLOOD SPECIMEN Ordering Facility: [facility] Address: [address] [place] [address] Performed By: #### 5 7021-8 #### [facility] CLIA [id number] [address] [place] [address]108 Hematocrit (Bld) [Volume fraction] 35.0 % Low 36.0-46.0 [facility] Comment on above: Order Comment: Speci men Type: BLOOD SPECIMEN Ordering Facility: [facility] Address: [address] [place] [address] Performed By: #### 5 7021-8 #### [facility] CLIA [id number] [address] [place] [address]12 Hemoglobin (Bld) [Mass/Vol] 11.4 g/dL Low 11.5-15.5 [facility] Comment on above: Order Comment: Speci men Type: BLOOD SPECIMEN Ordering Facility: [facility] Address: [address] [place] [address] Performed By: #### 5 7021-8 #### [facility] CLIA [id number] [address] [place] [address]843 Immature granulocytes (Bld) [#/Vol] 10*3/uL Normal <0.10 [facility] Comment on above: Order Comment: Speci men Type: BLOOD SPECIMEN [facility] Address: [address] [place] [address] Performed By: #### 5 7021-8 #### [facility] CLIA [id number] [address] [place] [address] Immature granulocytes/100 WBC (Bld) 0.3 % Normal [facility] Comment on above: Order Comment: Speci men Type: BLOOD SPECIMEN Ordering Facility: [facility] Address: [address] [place] [address] Performed By: #### 5 7021-8 #### [facility] CLIA [id number] [address] [place] [address]91 Lymphocytes (Bld) [#/Vol] 1.25 10*3/uL Normal 1.00-4.00 [facility] Comment on above: Order Comment: Speci men Type: BLOOD SPECIMEN Ordering Facility: [facility] Address: [facility] [address] [place] [address] Performed By: #### 5 7021-8 #### [facility] CLIA [id number] [address] [place] [address] 34649 Lymphocytes/100 WBC (Bld) 18.3 % Normal [facility] Comment on above: Order Comment: Speci men Type: BLOOD SPECIMEN Ordering Facility: [facility] Address: [facility] [address] [place] [address] Performed By: #### 5 7021-8 #### [facility] CLIA [id number] [address] [place] [address]9364 MCH (RBC) [Entitic mass] 29.9 pg Normal 26.0-34.0 [facility] Comment on above: Order Comment: Speci men Type: BLOOD SPECIMEN Ordering Facility: [facility] Address: [address] [place] [address] Performed By: #### 5 7021-8 #### [facility] CLIA [id number] [address] [place] [address] 59995 MCHC (RBC) [Mass/Vol] 32.6 g/dL Normal 30.5-36.0 [facility] Comment on above: Order Comment: Speci men Type: BLOOD SPECIMEN Ordering Facility: [facility] Address: [address] [place] [address] Performed By: #### 5 7021-8 #### [facility] CLIA [id number] [address] [place] [address] MCV (RBC) [Entitic vol] 91.9 fL Normal 80.0-100.0 [facility] Comment on above: Order Comment: Speci men Type: BLOOD SPECIMEN Ordering Facility: [facility] Address: [address] [place] [address] Performed By: #### 5 7021-8 #### [facility] CLIA [id number] [address] [place] [address] 52968 Monocytes (Bld) [#/Vol] 0.52 10*3/uL Normal <0.87 [facility] Comment on above: Order Comment: Speci men Type: BLOOD SPECIMEN Ordering Facility: [facility] Address: [address] [place] [address] Performed By: #### 5 7021-8 #### [facility] CLIA [id number] [address] [place] [address] 17557 Monocytes/100 WBC (Bld) 7.6 % Normal [facility] Comment on above: Order Comment: Speci men Type: BLOOD SPECIMEN [facility] Address: [address] [place] [address] Performed By: #### 5 7021-8 #### [facility] CLIA [id number] [address] [place] [address] 86446 Neutrophils (Bld) [#/Vol] 4.94 10*3/uL Normal 1.45-7.50 [facility] Comment on above: Order Comment: Speci men Type: BLOOD SPECIMEN Ordering Facility: [facility] Address: [address] [place] [address] Performed By: #### 5 7021-8 #### [facility] CLIA [id number] [address] [place] [address] Neutrophils/100 WBC (Bld) 72.5 % Normal [facility] Comment on above: Order Comment: Speci men Type: BLOOD SPECIMEN Ordering Facility: [facility] Address: [address] [place] [address] Performed By: #### 5 7021-8 #### [facility] CLIA [id number] [address] [place] [address] 16366 Nucleated RBC (Bld) [#/Vol] 10*3/uL Normal <0.01 [facility] Comment on above: Order Comment: Speci men Type: BLOOD SPECIMEN Ordering Facility: [facility] Address: [facility] [address] [place] [address] Performed By: #### 5 7021-8 #### [facility] CLIA [id number] [address] [place] [address] 13709 Nucleated RBC/100 WBC (Bld) [Ratio] 0.0 /100 WBC Normal [facility] Comment on above: Order Comment: Speci men Type: BLOOD SPECIMEN Ordering Facility: [facility] Address: [facility] [address] [place] [address] Performed By: #### 5 7021-8 #### [facility] CLIA [id number] [address] [place] [address] 33792 Platelet mean volume (Bld) [Entitic vol] 11.4 fL Normal 9.0-12.7 [facility] Comment on above: Order Comment: Speci men Type: BLOOD SPECIMEN [facility]ing [facility]: [facility] Address: [facility] [address] [place] [address] Performed By: #### 5 7021-8 #### [facility] CLIA [id number] [address] [place] [address] Platelets (Bld) [#/Vol] 167 10*3/uL Normal 150-400 [facility] Comment on above: Order Comment: Speci men Type: BLOOD SPECIMEN [facility] [facility] Address: [address] [place] [address] Performed By: #### 5 7021-8 #### [facility] CLIA [id number] [address] [place] [address] 57091 RBC (Bld) [#/Vol] 3.81 10*6/uL Low 3.90-5.20 [facility] Comment on above: Order Comment: Speci men Type: BLOOD SPECIMEN Ordering Facility: [facility] Address: [address] [place] [address] Performed By: #### 5 7021-8 #### [facility] CLIA [id number] [address] [place] [address] 69690 WBC (Bld) [#/Vol] 6.82 10*3/uL Normal 3.70-11.00 [facility] Comment on above: Order Comment: Speci men Type: BLOOD SPECIMEN Ordering Facility: [facility] Address: [facility] [address] [place] [address] Performed By: #### 5 7021-8 #### [facility] CLIA [id number] [address] [place] [address] 62988 GESTATIONAL GLUCOSE SCREEN, 1-HOUR, 50 GRAM, NON-FASTINGon 11-20-2023 Glucose [Mass/Vol] 97 mg/dL Normal 74-134 [facility] Comment on above: Order Comment: Speci men Type: BLOOD SPECIMEN Ordering Facility: [facility] Address: [address] [place] [address] Result Comment: Amer [facility] Congress of Obstetricians and Gynecologists (Alma/Adrián) guidelines state a gestational diabetes mellitus positive screen is made, in women not previously diagnosed with overt diabetes, when the 1 hr plasma glucose level is equal to or above 140 mg/dL. The [facility] and [facility] [place] recommends a 135 mg/dL cutoff. Performed By: #### G LTGST #### [facility] CLIA [id number] [address] [place] [address] [place] T4 Free SerPl-mCncon 024 Free T4 [Mass/Vol] 1.0 ng/dL Normal 0.9-1.7 [facility] Comment on above: Order Comment: Speci men Type: BLOOD SPECIMEN Ordering Facility: [facility] Address: [facility] [address] [place] [address] Performed By: #### 3 024-7, 3016-3 #### [facility] CLIA [id number] [address] [place] [address] [place] TSH SerPl-aCncon 10-22-2023 TSH Qn 4.510 m[IU]/L High 0.270-4.200 [facility] Comment on above: Order Comment: Speci men Type: BLOOD SPECIMEN Ordering Facility: [facility] Address: [facility] [address] [place] [address] Result Comment: If t he patient is , TSH reference range varies by gestational period: First Trimester (weeks 9-12): 0.180-2.990 mIU/L Second Trimester: 0.110-3.980 mIU/L Third Trimester: 0.480-4.710 mIU/L Manuel Grayson et al. A Practical Approach for the Verifications and Determination of Site- and Trimester-Specific Reference Intervals for Thyroid Function tests in . Thyroid, 2019:29:3:412-420. Emanuel Nassar, et al. 2017 Guidelines of the [place] Thyroid Association for the Diagnosis and Management of Thyroid Disease during and the . Thyroid, 2017:27:3:315-389. Performed By: #### 3 024-7, 6-3 #### [facility] CLIA [id number] [facility] [place] [id number] [place] CBC W Auto Differential pane l (Bld)on 08-08-2023 Basophils (Bld) [#/Vol] 10*3/uL Normal <0.11 [facility] Comment on above: Order Comment: Speci men Type: BLOOD SPECIMEN Ordering Facility: External Submitter Address: , , Performed By: #### 5 7021-8 #### [facility] CLIA [id number] [address] [place] [address] 92593 Basophils/100 WBC (Bld) 0.3 % Normal [facility] Comment on above: Order Comment: Speci men Type: BLOOD SPECIMEN Ordering Facility: External Submitter Address: , , Performed By: #### 5 7021-8 #### [facility] CLIA [id number] [address] [place] [address] 39529 Differential cell count method Nom (Bld) Auto Normal [facility] Comment on above: Order Comment: Speci men Type: BLOOD SPECIMEN Ordering Facility: External Submitter Address: , , Performed By: #### 5 7021-8 #### [facility] CLIA [id number] [address] [place] [address] 65731 Eosinophils (Bld) [#/Vol] 0.06 10*3/uL Normal <0.46 [facility] Comment on above: Order Comment: Speci men Type: BLOOD SPECIMEN Ordering Facility: External Submitter Address: , , Performed By: #### 5 7021-8 #### [facility] CLIA [id number] [address] [place] [address] 03976 Eosinophils/100 WBC (Bld) 0.9 % Normal [facility] Comment on above: Order Comment: Speci men Type: BLOOD SPECIMEN Ordering Facility: External Submitter Address: , , Performed By: #### 5 7021-8 #### [facility] CLIA [id number] [address] [place] [address] 19818 Erythrocyte distribution width (RBC) [Ratio] 13.7 % Normal 11.5-15.0 [facility] Comment on above: Order Comment: Speci men Type: BLOOD SPECIMEN Ordering Facility: External Submitter Address: , , Performed By: #### 5 7021-8 #### [facility] CLIA [id number] [address] [place] [address] 99198 Hematocrit (Bld) [Volume fraction] 40.1 % Normal 36.0-46.0 [facility] Comment on above: Order Comment: Speci men Type: BLOOD SPECIMEN Ordering Facility: External Submitter Address: , , Performed By: #### 5 7021-8 #### [facility] CLIA [id number] [address] [place] [address] 77013 Hemoglobin (Bld) [Mass/Vol] 13.4 g/dL Normal 11.5-15.5 [facility] Comment on above: Order Comment: Speci men Type: BLOOD SPECIMEN Ordering Facility: External Submitter Address: , , Performed By: #### 5 7021-8 #### [facility] CLIA [id number] [address] [place] [address] 61576 Immature granulocytes (Bld) [#/Vol] 10*3/uL Normal <0.10 [facility] Comment on above: Order Comment: Speci men Type: BLOOD SPECIMEN Ordering Facility: External Submitter Address: , , Performed By: #### 5 7021-8 #### [facility] CLIA [id number] [address] [place] [address] 54827 Immature granulocytes/100 WBC (Bld) 0.3 % Normal [facility] Comment on above: Order Comment: Speci men Type: BLOOD SPECIMEN Ordering Facility: External Submitter Address: , , Performed By: #### 5 7021-8 #### [facility] CLIA [id number] [address] [place] [address] 36599 Lymphocytes (Bld) [#/Vol] 1.67 10*3/uL Normal 1.00-4.00 [facility] Comment on above: Order Comment: Speci men Type: BLOOD SPECIMEN Ordering Facility: External Submitter Address: , , Performed By: #### 5 7021-8 #### [facility] CLIA [id number] [address] [place] [address] 29726 Lymphocytes/100 WBC (Bld) 24.9 % Normal [facility] Comment on above: Order Comment: Speci men Type: BLOOD SPECIMEN Ordering Facility: External Submitter Address: , , Performed By: #### 5 7021-8 #### [facility] CLIA [id number] [address] [place] [address] 06831 MCH (RBC) [Entitic mass] 31.1 pg Normal 26.0-34.0 [facility] Comment on above: Order Comment: Speci men Type: BLOOD SPECIMEN Ordering Facility: External Submitter Address: , , Performed By: #### 5 7021-8 #### [facility] CLIA [id number] [address] [place] [address] 73430 MCHC (RBC) [Mass/Vol] 33.4 g/dL Normal 30.5-36.0 [facility] Comment on above: Order Comment: Speci men Type: BLOOD SPECIMEN Ordering Facility: External Submitter Address: , , Performed By: #### 5 7021-8 #### [facility] CLIA [id number] [address] [place] [address] 99443 MCV (RBC) [Entitic vol] 93.0 fL Normal 80.0-100.0 [facility] Comment on above: Order Comment: Speci men Type: BLOOD SPECIMEN Ordering Facility: External Submitter Address: , , Performed By: #### 6 7021-8 #### [facility] CLIA [id number] [address] [place] [address] 96837 Monocytes (Bld) [#/Vol] 0.50 10*3/uL Normal <0.87 [facility] Comment on above: Order Comment: Speci men Type: BLOOD SPECIMEN Ordering Facility: External Submitter Address: , , Performed By: #### 5 1721-8 #### [facility] CLIA [id number] [address] [place] [address] 15298 Monocytes/100 WBC (Bld) 7.5 % Normal [facility] Comment on above: Order Comment: Speci men Type: BLOOD SPECIMEN Ordering Facility: External Submitter Address: , , Performed By: #### 3 7621-8 #### [facility] CLIA [id number] [address] [place] [address] 68643 Neutrophils (Bld) [#/Vol] 4.44 10*3/uL Normal 1.45-7.50 [facility] Comment on above: Order Comment: Speci men Type: BLOOD SPECIMEN Ordering Facility: External Submitter Address: , , Performed By: #### 5 7021-8 #### [facility] CLIA [id number] [address] [place] [address] 77911 Neutrophils/100 WBC (Bld) 66.1 % Normal [facility] Comment on above: Order Comment: Speci men Type: BLOOD SPECIMEN Ordering Facility: External Submitter Address: , , Performed By: #### 5 7021-8 #### [facility] CLIA [id number] [address] [place] [address] 56660 Nucleated RBC (Bld) [#/Vol] 10*3/uL Normal <0.01 [facility] Comment on above: Order Comment: Speci men Type: BLOOD SPECIMEN Ordering Facility: External Submitter Address: , , Performed By: #### 5 7021-8 #### [facility] CLIA [id number] [address] [place] [address] 41149 Nucleated RBC/100 WBC (Bld) [Ratio] 0.0 /100 WBC Normal [facility] Comment on above: Order Comment: Speci men Type: BLOOD SPECIMEN Ordering Facility: External Submitter Address: , , Performed By: #### 5 7021-8 #### [facility] CLIA [id number] [address] [place] [address] 48491 Platelet mean volume (Bld) [Entitic vol] 12.1 fL Normal 9.0-12.7 [facility] Comment on above: Order Comment: Speci men Type: BLOOD SPECIMEN Ordering Facility: External Submitter Address: , , Performed By: #### 5 7021-8 #### [facility] CLIA [id number] [address] [place] [address] 28630 Platelets (Bld) [#/Vol] 148 10*3/uL Low 150-400 [facility] Comment on above: Order Comment: Speci men Type: BLOOD SPECIMEN Ordering Facility: External Submitter Address: , , Performed By: #### 5 7021-8 #### [facility] CLIA [id number] [address] [place] [address] 58245 RBC (Bld) [#/Vol] 4.31 10*6/uL Normal 3.90-5.20 [facility] Comment on above: Order Comment: Speci men Type: BLOOD SPECIMEN Ordering Facility: External Submitter Address: , , Performed By: #### 5 7021-8 #### [facility] CLIA [id number] [address] [place] [address] 30007 WBC (Bld) [#/Vol] 6.71 10*3/uL Normal 3.70-11.00 [facility] Comment on above: Order Comment: Speci men Type: BLOOD SPECIMEN Ordering Facility: External Submitter Address: , , Performed By: #### 5 7021-8 #### [facility] CLIA [id number] [address] [place] [address] 30686 HBV surface Ag Ser Qlon 07-20 HBV surface Ag Ql (S) Negative Normal Negative [facility] Comment on above: Order Comment: Speci [facility] Type: BLOOD SPECIMEN Ordering Facility: External Submitter Address: , , Performed By: #### 5 5454-3 #### [facility] CLIA [id number] [address] [place] [address] [place] HCV Ab Ser Qlon 08-08-2023 HCV Ab Ql (S) Negative Normal Negative [facility] Comment on above: Order Comment: Roycei men Type: BLOOD SPECIMEN Ordering Facility: External Submitter Address: , , Result Comment: The result suggests no evidence of active infection with Hepatitis C virus. Should recent infection be suspected, repeat testing may be considered 4-6 weeks after this draw. Performed By: #### 1 6128-1 #### [facility] CLIA [id number] [address] [place] [address] [place] HIV 1+2 Ab IA Qlon HIV 1 and 2 Ab IA.rapid Nom (S/P/Bld) Normal [facility] Comment on above: Order Comment: Speci men Type: BLOOD SPECIMEN Ordering Facility: External Submitter Address: , , Result Comment: Test not indicated. Performed By: #### 5 5454-3 #### [facility] CLIA [id number] [address] [place] [address] [place] HIV 1+2 Ab+HIV1 p24 Ag IA Ql Non-Reactive Normal Nonreactive [facility] Comment on above: Order Comment: Speci men Type: BLOOD SPECIMEN Ordering Facility: External Submitter Address: , , Performed By: #### 5 5454-3 #### [facility] CLIA [id number] [address] [place] [address] [place] HIV immunoassay testing algorithm interpretation (S/P/Bld) [Interp] Normal [facility] Comment on above: Order Comment: Speci men Type: BLOOD SPECIMEN Ordering Facility: External Submitter Address: , , Result Comment: No e vidence of HIV-1 or HIV-2 infection. Should recent infection be suspected, repeat testing may be considered 2-3 weeks after this draw. [place] Rev. Code 3701.243(E): This information has been [...] diagnoses. Performed By: #### 5 5454-3 #### [facility] CLIA [id number] [address] [place] [address] [place] HbA1c (Bld)on 08-08-2023 Average glucose Estimated from glycated hemoglobin (Bld) [Mass/Vol] 105 mg/dL Normal [facility] Comment on above: Order Comment: Speci men Type: BLOOD SPECIMEN Ordering Facility: External Submitter Address: , , Result Comment: eAG: (Estimated average glucose) is a calculated value from HgbA1c and is home furnishings sales representative of the average blood glucose level in the last 2-3 month period. Performed By: #### 5 5454-3 #### [facility] CLIA [id number] [address] [place] [address] [place] HbA1c (Bld) [Mass fraction] 5.3 % Normal 4.3-5.6 [facility] Comment on above: Order Comment: [facility] Type: BLOOD SPECIMEN Ordering Facility: External Submitter Address: , , Result Comment: Amer [place] Diabetes Association guidelines indicate that patients with HgbA1c in the range 5.7-6.4% are at increased risk for development of diabetes, and intervention by lifestyle modification may be beneficial. HgbA1c greater or equal to 6.5% is considered diagnostic of diabetes. Performed By: #### 5 5454-3 #### [facility] CLIA [id number] [facility] [place] [address] [place] RPR Ser Qlon 08-08-2023 Reagin Ab RPR Ql (S) Non-Reactive Normal Nonreactive [facility] Comment on above: Order Comment: Roycei vishnu Type: BLOOD SPECIMEN Ordering Facility: [facility] Address: [address] [place] [address] [place] [address], [place] [address] Result Comment: Rapi d plasma reagin (RPR) test detects non-treponemal antibodies. RPR may be reactive in a variety of infectious and non-infectious conditions. Correlation with clinical picture and with treponemal antibody results is required for final interpretation. Performed By: #### 3 024-7, 3016-3 #### [facility] CLIA [id number] [address] [place] [id number] [place] RUBELLA IGG ANTIBODYon 08-07 RUBELLA IGG AB, QUAL Positive Normal Positive [facility] Comment on above: Order Comment: Speci men Type: BLOOD SPECIMEN Ordering Facility: [facility] Address: [address] [place], [place] [address] [place], [place] [address] Result Comment: The result suggests recent or past exposure to Rubella virus or history of Rubella vaccination. Positive result may also be seen due to presence of passively-transferred antibodies. Please correlate with patient's history. Performed By: #### 3 024-7, 3016-3 #### [facility] CLIA [id number] [facility] [address] [facility] TYPE + SCREENon 08-08-2023 ABO A Normal [facility] Comment on above: Order Comment: Speci men Type: BLOOD SPECIMEN Ordering Facility: External Submitter Address: , , Performed By: #### T SCR #### [facility] CLIA [id number] [facility] [address] OF [place] HISTORICAL AB SCR STATUS Negative Normal [facility] Comment on above: Order Comment: Speci men Type: BLOOD SPECIMEN Ordering Facility: External Submitter Address: , , Performed By: #### T SCR #### [facility] CLIA [id number] [facility] [place] [address] [place] Rh Nom (Bld) Positive Normal [facility] Comment on above: Order Comment: Speci men Type: BLOOD SPECIMEN Ordering Facility: External Submitter Address: , , Performed By: #### T SCR #### [facility] CLIA [id number] [facility] [place] [address] [place] TYPE AND SCREEN EXPIRATION 08/11/2023 23:59 Normal [facility] Comment on above: Order Comment: Speci men Type: BLOOD SPECIMEN Ordering Facility: External Submitter Address: , , Performed By: #### T SCR #### [facility] CLIA [id number] [address] [place] [address] [place] B-HCG SerPl-aCncon 4 HCG.beta subunit Qn m[IU]/mL Normal <5.0 [facility] Comment on above: Order Comment: Speci men Type: BLOOD SPECIMEN Ordering Facility: External Submitter Address: , , Result Comment: Dianne logan Performed By: #### 5 5454-3 #### [facility] CLIA [id number] [address] [place] [id number] [facility] CNPBritt 05-16-2023 CNPN Telephone (HEMASA) JESSEE ALMODOVAR ([id number]) 1990 [facility] Date Time Provider Department 05/16/23 RONI DUMAS During your visit today, we recorded the following information about you: Allergies As of Date: 05/16/2023 (No Known Allergies) Date Reviewed: 04/11/2023 Reviewed by: Macy Jones APRN.ESTHETICIAN AND MANAGER MEDICAL SPA - Fully Assessed Reason for Visit: Lab Orders [1688] Primary Visit Diagnosis:Possible , not confirmed [Z32.00] Order(s):HCG QUANTITATIVE [SQHCGQT] Order #: [id number] FUTURE Prescriptions as of 05/16/2023 - doxycycline [...] Status:Closed by RONI DUMAS on 05/16/23 Normal [facility] TOX SCREEN ROUT URon 024 Amphetamines Confirm (U) [Mass/Vol] Negative Normal Negative [facility] Comment on above: Order Comment: Speci men Type: BLOOD SPECIMEN Ordering Facility: [facility] Address: [address] [place] [address] , [place] [address] Result Comment: Cuto ff threshold at 1000 ng/mL. Performed By: #### 3 024-7, 3016-3 #### [facility] CLIA [id number] [address] [place] [address] [place] BARBITURATES, URINE Negative Normal Negative [facility] Comment on above: Order Comment: Speci men Type: BLOOD SPECIMEN Ordering Facility: [facility] Address: [facility] [place] [address] Result Comment: Cuto ff threshold at 200 ng/mL. Performed By: #### 3 024-7, 3016-3 #### [facility] CLIA [id number] [facility] [place] [address] [place] BENZODIAZEPINES, UR Negative Normal Negative [facility] Comment on above: Order Comment: Speci men Type: BLOOD SPECIMEN Ordering Facility: [facility] Address: [facility] [place] [address] Result Comment: Cuto ff threshold at 200 ng/mL. Performed By: #### 3 024-7, 3016-3 #### [facility] CLIA [id number] [address] [place] [address] [place] Cannabinoids Screen Ql (U) Negative Normal Negative [facility] Comment on above: Order Comment: Speci men Type: BLOOD SPECIMEN Ordering Facility: [facility] Address: [address] [place], [place] [address] [place] [address] Result Comment: Cuto ff threshold at 50 ng/mL. Performed By: #### 3 024-7, 3016-3 #### [facility] CLIA [id number] [address] [place] [address] [place] Cocaine Ql (U) Negative Normal Negative [facility] Comment on above: Order Comment: Speci men Type: BLOOD SPECIMEN Ordering Facility: [facility] Karina Address: [facility] [place] [address] Result Comment: Cuto ff threshold at 300 ng/mL. Performed By: #### 3 024-7, 3016-3 #### [facility] CLIA [id number] [address] [place] [address] [place] Ethanol (U) [Mass/Vol] <11 Normal <11 [facility] Comment on above: Order Comment: Speci men Type: BLOOD SPECIMEN Ordering Facility: [facility] Address: [facility] [address] [place] [address] Performed By: #### 3 024-7, 3016-3 #### [facility] CLIA [id number] [address] [place] [address] [place] Opiates Screen Ql (U) Negative Normal Negative [facility] Comment on above: Order Comment: Speci men Type: BLOOD SPECIMEN Ordering Facility: [facility] Address: [facility] [address] [place] [address] Result Comment: Cuto ff threshold at 300 ng/mL. Performed By: #### 3 024-7, 3016-3 #### [facility] CLIA [id number] [address] [place] [address] [place] oxyCODONE cutoff Screen (U) [Mass/Vol] Negative Normal Negative [facility] Comment on above: Order Comment: Speci men Type: BLOOD SPECIMEN [facility] Address: [facility] [address] [place] [address] Result Comment: Cuto ff threshold at 100 ng/mL. Performed By: #### 3 024-7, 3016-3 #### [facility] CLIA [id number] [address] [place] [address] [place] Phencyclidine Ql (U) Negative Normal Negative [facility] Comment on above: Order Comment: Speci men Type: BLOOD SPECIMEN Ordering Facility: [facility] Address: [facility] [address] [place] [address] Result Comment: Cuto ff threshold at 25 ng/mL. Performed By: #### 3 024-7, 3016-3 #### [facility] CLIA [id number] [address] [place] [address] [place] B-HCG SerPl-aCncon 4 HCG.beta subunit Qn m[IU]/mL Normal <5.0 [facility] Comment on above: Order Comment: Speci men Type: BLOOD SPECIMEN Ordering Facility: External Submitter Address: , , Result Comment: Dianne logan Performed By: #### 5 5454-3 #### [facility] CLIA [id number] [address] [place], [place] [address], [place] [address] [facility] CNOVon 02-25-2023 CNOV Office Visit (ORTHMN ) JESSEE ALMODOVAR ([id number]) 1990 [facility] Date Time Provider Department 02/25/23 [...] with a (more content not included)... Normal [facility] XR HIP 3V PELV+ AP/LAT RTon [...] any questions regarding this interpretation, please call [phone]. If you are unable to reach us at the number above, please feel free to contact [facility] [employer] at [phone]. 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 Transcribe Date/Time: Feb 20 2023 9:56A Dictated by: NEERYDA OSUNA MD This examination was interpreted and the report reviewed and electronically signed by: NEREYDA OSUNA MD on Feb 20 2023 10:04AM EST Thank you for allowing us to participate in the care of your patient. Should there be any questions regarding this interpretation, please call [phone]. If you are unable to reach us at the number above, please feel free to contact [facility] eRadiology at [phone]. DIVISION OF RADIOLOGY * * *Final Report* [...] hip are unremarkable. DIVISION OF RADIOLOGY Provider, [facility]/20/[facility]23 * * *Final Report* * [...] any questions regarding this interpretation, please call [phone]. If you are unable to reach us at the number above, please feel free to contact [facility] eRadiology at [phone]. 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] Order(s):XR HIP GENERAL 3V PELV/AP/LAT RIGHT [[id number]] Order #: [id number] FUTURE Prescriptions as of 02/17/2023 - amphetamine-dextroamphe [...] Status:Closed by TIANA CRONIN on 02/17/23 Normal [facility] CBC W Auto Differential pane l (Bld)on 11-15-2022 Basophils (Bld) [#/Vol] 0.04 10*3/uL <0.11 k/uL [facility] Basophils/100 WBC (Bld) 0.8 % [facility] Differential cell count method Nom (Bld) Auto [facility] Eosinophils (Bld) [#/Vol] 0.11 10*3/uL <0.46 k/uL [facility] Eosinophils/100 WBC (Bld) 2.1 % [facility] Erythrocyte distribution width (RBC) [Ratio] 13.7 % 11.5 - 15.0 % [facility] Hematocrit (Bld) [Volume fraction] 46.7 % High 36.0 - 46.0 % [facility] Hemoglobin (Bld) [Mass/Vol] 15.6 g/dL High 11.5 - 15.5 g/dL [facility] Immature granulocytes (Bld) [#/Vol] <0.10 k/uL [facility] Immature granulocytes/100 WBC (Bld) 0.2 % [facility] Lymphocytes (Bld) [#/Vol] 1.77 10*3/uL 1.00 - 4.00 k/uL [facility] Lymphocytes/100 WBC (Bld) 33.7 % [facility] MCH (RBC) [Entitic mass] 31.8 pg 26.0 - 34.0 pg [facility] MCHC (RBC) [Mass/Vol] 33.4 g/dL 30.5 - 36.0 g/dL [facility] MCV (RBC) [Entitic vol] 95.3 fL 80.0 - 100.0 fL [facility] Monocytes (Bld) [#/Vol] 0.64 10*3/uL <0.87 k/uL [facility] Monocytes/100 WBC (Bld) 12.2 % [facility] Neutrophils (Bld) [#/Vol] 2.68 10*3/uL 1.45 - 7.50 k/uL [facility] Neutrophils/100 WBC (Bld) 51.0 % [facility] Nucleated RBC (Bld) [#/Vol] <0.01 k/uL [facility] Nucleated RBC/100 WBC (Bld) [Ratio] 0.0 /100 WBC [facility] Platelet mean volume (Bld) [Entitic vol] 11.3 fL 9.0 - 12.7 fL [facility] Platelets (Bld) [#/Vol] 154 10*3/uL 150 - 400 k/uL [facility] RBC (Bld) [#/Vol] 4.90 10*6/uL 3.90 - 5.2 0 m/uL [facility] WBC (Bld) [#/Vol] 5.25 10*3/uL 3.70 - 11. 00 k/uL [facility] CBC W Auto Differential pane l (Bld)on 08-09-2022 Basophils (Bld) [#/Vol] 0.03 10*3/uL <0.11 k/uL [facility] Basophils/100 WBC (Bld) 0.6 % [facility] Differential cell count method Nom (Bld) Auto [facility] Eosinophils (Bld) [#/Vol] 0.05 10*3/uL <0.46 k/uL [facility] Eosinophils/100 WBC (Bld) 0.9 % [facility] Erythrocyte distribution width (RBC) [Ratio] 13.6 % 11.5 - 15.0 % [facility] Hematocrit (Bld) [Volume fraction] 42.0 % 36.0 - 46.0 % [facility] Hemoglobin (Bld) [Mass/Vol] 13.5 g/dL 11.5 - 15.5 g/dL [facility] Immature granulocytes (Bld) [#/Vol] <0.10 k/uL [facility] Immature granulocytes/100 WBC (Bld) 0.4 % [facility] Lymphocytes (Bld) [#/Vol] 1.57 10*3/uL 1.00 - 4.00 k/uL [facility] Lymphocytes/100 WBC (Bld) 29.0 % [facility] MCH (RBC) [Entitic mass] 30.5 pg 26.0 - 34.0 pg [facility] MCHC (RBC) [Mass/Vol] 32.1 g/dL 30.5 - 36.0 g/dL [facility] MCV (RBC) [Entitic vol] 94.8 fL 80.0 - 100.0 fL [facility] Monocytes (Bld) [#/Vol] 0.47 10*3/uL <0.87 k/uL [facility] Monocytes/100 WBC (Bld) 8.7 % [facility] Neutrophils (Bld) [#/Vol] 3.27 10*3/uL 1.45 - 7.50 k/uL [facility] Neutrophils/100 WBC (Bld) 60.4 % [facility] Nucleated RBC (Bld) [#/Vol] <0.01 k/uL [facility] Nucleated RBC/100 WBC (Bld) [Ratio] 0.0 /100 WBC [facility] Platelet mean volume (Bld) [Entitic vol] 11.1 fL 9.0 - 12.7 fL [facility] Platelets (Bld) [#/Vol] 145 10*3/uL Low 150 - 400 k/uL [facility] RBC (Bld) [#/Vol] 4.43 10*6/uL 3.90 - 5.2 0 m/uL [facility] WBC (Bld) [#/Vol] 5.41 10*3/uL 3.70 - 11. 00 k/uL [facility] XR Pelvis and Hip - [...] any questions regarding this interpretation, please call [phone]. If you are unable to reach us at the number above, please feel free to contact [facility] eRadiology at [phone]. DIVISION OF RADIOLOGY * * *Final Report* [...] any questions regarding this interpretation, please call [phone]. If you are unable to reach us at the number above, please feel free to contact [facility] eRadiology at [phone]. [facility] Radiology Study observation (narrative) [facility] XR Pelvis and Hip - right AP and Lateral frogOrdered By: Ccf Provider on 08-01-2022 [facility] Ambulatory Visit Summaryon 0 05-26-2022 [...] Up with CHELSEA KRAUS DO When: Where: [facility] [address] [place] [id number]- Medications What How Much When Why Instructions New amoxicillin (amoxicillin 500 mg Cap) 1 Capsules By Mouth Every 12 hours Strep pharyngitis Duration: 10 Days Pickup at [facility] 1985 Unchanged biotin Contact prescribing [...] physician if questions or concerns Pharmacy Information [facility]: [address] [facility] [place], [place] [id number] [phone] Allergies No Known Allergies Problems Ongoing - [...] these instructions at home: Medicines ? Take dvdp-zof-zkcporw and prescription medicines only as told by [...] cup (more content not included)... Normal 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 No kkfm-gxr-mgefsxl medications today. Review of Systems PHQ Score [...] day(s), # 20 cap(s), Refills(s) 0, Pharmacy: [facility] 1985, 172, cm, 05/26/22 9:34:00 [...] Acute pharyngitis, unspecified) Ordered: Rapid Strep POC 60188 Follow-up With When Contact Information CHELSEA KRAUS DO [facility] [address] [place] [id number]- Additional Instructions: Patient Education Strep Throat, Adult, Wcek-bu-Oiew BMI for Adults Problem List/Past Medical History [...] POC Result: Positive (05/26/22 09:56:00) Normal [facility] Comment on above: Result Comment: Elec [...] these instructions at home: Medicines ? Take xxjj-mzf-gbutihc and prescription medicines only as told by [...] 09/23/2008 Document Revised: 06/25/2019 Document Reviewed: 06/25/2019 [employer] Patient Education ? 2019 Status Overload. Nutrition BMI for Adults Body mass index (BMI) is a number that is calculated from a person's weight and height. BMI may help to estimate how much of a person's weight is composed of fat. BMI can help identify those who may be (more content not included)... Normal [facility] Coding Summary.on 02-26-2022 Coding Summary. CD:[id number] Gh0 bWw+PGhlYWQ+ZT2CHXUxA92 odNQlbK8DS6bJLF5ZHITQVL CMMK0MRZ4bdQL7WDmtY4Gqs iAv NubdoONkZF66NMr2HIY2wYy zOTtkvS5agIAqU5k5GcUyIK 19xZ41VAvtSYIzKkL1BvTzg jsgbWFy H9gaQsWzrJJhUla+PHRhYmx lIHdpZHRoPScxMDAlJyBzdH yoHA1bYe2sPGGkNSJjpXfgg HNlOiBj k1suCOIfUAddGY1xcIowK1B lgLN0AAEqa1i2Wg58jNF+PH HwHUW3jGkoXGtur041FcZtd 3eoNFI1 rCYzDChnSAP7Y81vm2A2TIA fBVGcYVG1dRO6jQ5arQmytl kbB7PziGFzVwI2AZX2vRAjv A0olKde rxylpE3lIjt+Y37AVW2GGQC CSR8BTxs6A7BiYcrdtDQ+PC 24YSTnSY45dSDywVHcm5xfb Dd6DhDl LXUkKAE6nGftKCtww5EnNPN rB53hwVYze7B3LSFqoMeseZ RgPbTmyAV8mK7nZIouktfpp 2hvdzsn Bsceu1jpdg16fH14J08qKAw pYRGxLRA1RMJyFWTyhAnbmt 6qqN4wRd5+GYvjh3bbq7jnu Nd2ZmJb QAHseuSchOcaRCS6t8RfBt0 1K3TgbPgwi6EkClv8jw18iL Oma7B4rMQ2AWrcOTXvvR7vE WxlZnQ6 HVGxYaQnfU13cVBtFKpvHa2 fvYfjuRoxYY3rNUUyodysNE GywT6pHSDgjEDxoSpuUV0bL TBpbjtm e516RzUtDZS5DUFrwRObK4Q npX2xLyVxSZXoQKJyM8RwpJ HcVAbxG016HMapKqA8YPQdz aRuT9Oa VTLofElaFhK6h3R9Kp8Il2W ahaxwPEB7VYoaSBDsSkP9Yx FpBcI7F9OuNwy1NRBlcNqoU H4aQ8Hz RBJoqqcelikysZN6FGIxCBV voS61lGGxOCffVo5wf4R6u6 24YVBjVQZicH47Ob1gpShgM TBwdCBU kD7kacqdd9wzajiyLzJiFGE yMAl4DJm9YJGakWcfSuGjHD P3RpV9FKN7hFVmqG9uxLspo mgwkG5s Oyc+R76heA2zBNW7IQB9ewx fEARtsfViVG55SH92Z8HhSc wvdGFibGU+PGRpdiBzdHlsZ M3cQuUh i7qae9MiFWmkW5QlVYZwEMt hLul7JOTqOEO9tLS1dN1qJG OkARvkr1X2xRA2B2VgreMth b1mk0hz GDBlIKswW62ewUWor1Y1EMZ kmCU2NWAuvYsjTnKlbS09Ue c+SGAnqBjay9XrIrkgi7ngp 5lbvCa9 PnIlRMNggiOkxBjlNJU8i4G bUk30N36fJOqnKANkWFVkQV UtJPRwnHpclx3ifO2dCw7+P GNvbCB3 rYA4nJ1tFYJnTnB2FMxxC40 7QyJckWKsHyepo5phn9ymcV p4PaMwZLXzkfJhrKknBOS5i 8DdYw77 C37sIOzqLKDkGIKsXNAnONC maFtlfg0luH7hDo1+PC9jb2 pzve85iA85iCF+NHTjJBD8y WxlPSdw VBSxwX4oICjcBuO4KSApOrP zuE97cSTbPOkaXx0prMfcoU kuYS0yMLBaqyyle561TxLzm 2xkIDEw iELkNAoqIXD7T44iv2B7SSF aYAOhXTJ5kJH0iR4yyPpait ogbGVmdDsgdmVydGljYWwtY IrjD997 IHRvcDsnPlBhdGllbnQgTmF jTTh0Q9HyQrt1XZFduWtaVT 9luPFuITgzGr4qtWtqzZzfG V7qMCNg uoigz320ScXxs9uuVUUhmLJ mXCuhOHQ4B29fo8C5RTWdBV RjTFJ8iME0pV4amOgukpxhj GVmdDsg ofGxbLzyAPgdIWveV602KGP cbNkjCjOzsoMdPKVwwYG8AH 49QG02wFMap0H5kWZ8F4AmP GRpbmct xolbxEM3QZBhABLaaR89Ap4 uzDlrAz4eJMZuUNM4AWWukH PkZ1ZlfM5iSrStXDWmKYPxK 3RleHQt FYilB579OGhiJwP0JCSafyZ wZ9XfGKFdcZofNsE3w3V0Sd 7HN1N6CA80VO65vWNhh3M8k RM0V3Ll APOncxmvguzxvJT4EHUzRAI wlX05Pz8eiQhpNv3xKYHaWT Z0IRGseQHmH1YaoF7aHcUbG DAwMDAw W6QcrFReRCwbB479RWqlTiH 1GHPitrZjD3OjLSHtqBsbGx T7t0P2Rw6BYGo0JA03ZS37w BAlm9B9 rBW7A1JrVBSvcwmhrgyyoOJ 9PIBdVOGllT34Qj7jgSfqNs 9eNLBbCBD7ALXmvDRrK4Jbd O7iOmMb FYBmBXDqJ2GqfUQyXTynY34 7JAahZsZ8ZLNvzsSfE2CnNZ TtrBooLgJ8p2P9So2OSAStM O19CQZ4 lTE0XQ73ST06A9GnDkinbJI ibGU+PHRhYmxlIHdpZHRoPS jcJEGyIlUcxOjuZG8lLo6rZ GVyLWNv pDapzCWlPdVkm8rjMDNkWOk lPI7wxMkdM5DaxQW6DVBcj9 c8Tw64A48bH2IeeUB+PGNvb IO9sVK8 gI9uXvVlUrW5GKscT835CmH vxKQkQommr4znu9vhaWx4Hv L1IUUklsFyvNplHZD2l6ByD c32G42d IHdpZHRoPSIxNSUiIHZhbGl dsl1gwX7vAa1+HHAjxDF3pR W3wK6qLoVmLyI0KPpzQ825P nRvcCIv Jmppv9cug1xclPm8OdHzNIX oqdJfuBeyGSN2g2BkUd97Y4 BnyVkiu4UjHnd2sx14cSMxc 3H8dRD1 E6AuQHTjoaxdaXBscZhmYB5 vPNBlebgnKYLsuM6tSXDkW2 x1WrHiIdO9YVjqT3DbteE8T DEwcHQg DBtkMDA7Q84co7P1XRLmPYI iAJP1hWC3bS7oyXrpxhiiaU VmdDsgdmVydGljYWwtYWxpZ 246IHRv dQorMUQxcA3cKOJgcZCjoZv iFN3rTOZwsfunBlpMVCoYVC eEPcyyAWCLYO25N0GwWzz2M CBzdHls TN3uwIBjTBjeKn4ypCebxTp sKG1pPRGgtcwbKKZfnA1hZG LinEMajMeeED9uGZTclymmh 250OiAx SYK9MKZpiDMcM6SxvW6dQbT jAFCaMTUpY2YlvIHvXMnoJ7 37LPjwWlZ3ODHknnIuG8CmN WFsaWdu BbV1z0E7Om4oHQ2iMV6aQHo wXD08MT65wUVsm2C8vJV6Q6 QrMFMtgurwxlevwXN6PLSvK DUwaW47 zRUhSVhmJh8dc9J7k017CVO aRJQsrZ34Pf7vsRmiAPJrzV VVwO9bntbbl3ktpuzeFhDgF DAwMDt0 ENb8BUTlmQnzHnHaWLZ2MyI 1DAH1eDLxhM2xlJlkbdzqsI 9wOyc+WoMlHUFvuvI3P4SwD ke9JGRt bHpoIE6noCXsFNyrQt2fdNf tfSxbYZ3pKYYsmeaiUFEwuR 2bLCJhmEWosRtmDL3vDDSns iulh225 JkPvARB2TRWutRUtY9WchR7 jVcChFGLuUNZsI1NadJPvVH wuE489VWmzZiC1CBTrvaTmK 2FsLWFs qGhfEbT4n9W9Fx2ZWF4niTE 2E8IcXoz4QMTbcCikLW6kgG OpDKjnMn3jkJaevKdkXL2aZ TBpbjtw QTCcpE0nKJNicILhtWjqFH7 dKWJoybtia220KrSuJSA2ZR NrsYAcB7UghZ7iPkDsBQWfM NKvW1Tc zNLjYYfyS609OOwzInP6NEL tcrOhD2EoSWCfyRatXgX8p1 B7Ty9IwMDxP2XqN9t4L4TaN jwvdHI+ XQ38LLQjJR34cMXbgNVwf0n fyMb0BrQfUAUhZGZ4oDxsYB tqo4DpJTXaS10ljFRul9L2H GNvbGxh mMEfXyTdhGV3bY3tNBpdhnk iy6qpddgmCyodp1poix57nY 23U21pKEreCCKiJZRgKSQjP HZhbGln nm9scH0xFe1+JQClbVB7fKO 2gB7oPdEkAsO5AAqoJ568Md SmqUSjBmgxg2ukd1eblWf5J jIwJSIg tuNmgBbtVHC0e9RrAl30Z01 sIHdpZHRoPSIyMCUiIHZhbG xexs4mkC5uCx2+WU3vb6hre t84vK29 dHI+GDYeJWP8mZcfQSfbLJU hpL8pTWttAiF7UBPxGhCeiJ 86cGPlBOapJz7ceRiszGdpH P8yKFEn vxdfo170HfJjt9qwNXNwtVI wEEosMSM1J53ix3R7YFMaEX CdEDQ1aAA8tG1gvPfxztskc GVmdDsg rpNlcFheGWgdBRrlE053GBQ ayLpzTiAvjTXeZ7dbtwODVY 1lOjwvdGQ+ZWRoQTQ2vIbcN SdwYWRk oO5oDGIzN7b8DeVdAsF4RLa sB5InilZ3HCHqnILuOHPgcZ TNvH9yjjnts5hgcvhhUyWuJ DAwMDt0 MAp0BNIubZjwCeGoEER7DqF 9VDC0aHHmiY4uxZetcyxglY 9wOyc+RklOOjwvdGQ+PHRkI WH1cMhk SRayQZEppY2jTOLaB7i1ZtA fHsG6VYcwA2SsszE8JCUnlZ VdYQBakBJXqI2kewdzs4ort jogIzAw IOVfYQj5NGn3SVOzoBivOcA rMSS7GcG3RZA7rYQwxP8svK uczanifV9xMlq+TVJOOjwvd GQ+PHRk LIR3tCisMMccFKUteJ6iYKQ sR3n8RsZrHkU5SJxkZ5Bgnq B2MAFhoCPhLVWquVUMiH5st tzcw8hm zfaaKnJoXKLoYPp2HRw9UJO gcNvuNyHsYIV5CuL6CTL6vQ YxuK3tcLjkofiskV4yGsn+U DF4QXB1 OU18TX98U8PkAjzuaHUdoZN +PHRhYmxlIHdpZHRoPScxMD BtHzVqtMvdTQ4xVj6eWGCgW WNvbGxh cHNl (more content not included)... Normal [facility] Discharge Instructionson Discharge Instructions [id number] CD:127 Normal [facility] ED Clinical Summaryon 2021 ED Clinical Summary [address] [address] ED Clinical Summary Person Information Name: JESSEE ALMODOVAR[place] Age: 32 Years : 1990 Sex: Female Language: Australian PCP: Marital Status: Phone: [phone] Visit Id: Visit Reason: Foot pain-swelling; HURT [...] 11:07:01 02/23/2022 11:07:01 ADDRESS: [address] [place] [id number] PHYS DOC NOTES: MEDICAL INFORMATION: Prescriptions Given: PATIENT EDUCATION INFORMATION: Instructions: Foot Sprain; How to Use Cold Therapy, Tdoq-um-Tbvh; Elastic Bandage and RICE Therapy Follow up: With: Address: When: [facility], [address] [place], [place] [id number] [facility] () In 3 days 02/26/2022 Comments: Follow-up with your primary care provider in 3 to 5 days. If symptoms worsen, do not improve, or new symptoms arise please report back to emergency department for further evaluation. DIAGNOSIS: Sprain of left foot Normal [facility] ED Note-Physicianon 02-24-20 ED Note-Physician Basic [...] In 3 days 02/26/2022 [facility] [address] [place] [id number] Business (1) Additional Instructions: Follow-up with your primary care provider in 3 to 5 days. If symptoms worsen, do not improve, or new symptoms arise please report back to emergency department for further evaluation. Patient Education Foot Sprain How to Use Cold Therapy, Jfze-iw-Hvfg Elastic Bandage and RICE Therapy Attestation Patient seen and evaluated by the physician medical billing assistant. Attending physician was present in the emergency department and supervised care. This visit was performed by both the physician and an APC. I performed all aspects of the MDM as documented. This report was transcribed using voice recognition software. Every effort was made to ensure accuracy, however, inadvertently computerized sewer digger mistakes may be present. Appropriate healthcare PPE [...] medications Ho (more content not included)... Normal [facility] Comment on above: Result Comment: Elec [...] This may take several hours. ? Take svbn-lxe-zdasgsh and prescription medicines only as told by [...] is no (more content not included)... Normal [facility] ED Patient Summaryon ED Patient Summary (Inserted Image. Kelsi ble to display) [address] [address] Patient Discharge Instructions Person Information Name: JESSEE ALMODOVAR Age: 32 Years Arrival Date: 02/23/2022 09:05:13 Discharge Diagnosis: Sprain of left foot Primary Care Physician: Provider Information Primary Provider: Chayo Anne DO Advanced Dressing Room Attendant:None The exam and treatment you received in the Emergency Department were for an urgent problem and are not intended as complete care. It is important that you follow up with a doctor, nurse practitioner, or physician?s medical billing assistant for ongoing care. If your symptoms become worse or you do not improve as expected and you are unable to reach your usual health care provider, you should return to the Emergency Department. We are available 24 hours a day. JESSEE ALMODOVAR has been given the following list of patient education materials, prescriptions and follow-up instructions: Follow-up Instructions: With: Address: When: [facility] [employer], [address] [place] [id number] Business (1) In 3 days 02/26/2022 [...] Foot Sprain; How to Use Cold Therapy, Wwlp-bj-Oeoe; Elastic Bandage and RICE Therapy A MESSAGE TO ALL PATIENTS REGARDING OPIOIDS PRESCRIPTION OPIOIDS: WHAT YOU NEED TO KNOW Prescription opioids can be used to help relieve vvbfosaz-mf-scbepi pain and are often prescribed following a [...] Visit www.cdc.gov/ (more content not included)... Normal [facility] XR Foot 3+ Views Lefton 11- XR [...] DO Transcribed by: SUZY Technologist: TIM Normal [facility] XR Pelvis and Hip - [...] any questions regarding this interpretation, please call [phone]. If you are unable to reach us at the number above, please feel free to [facility] at [phone]. DIVISION OF RADIOLOGY * * *Final Report* [...] joint appears preserved. DIVISION OF RADIOLOGY Provider, [facility] - 02/19/2022 * * *Final Report* * [...] any questions regarding this interpretation, please call [phone]. If you are unable to reach us at the number above, please feel free to contact [facility] eRadiology at [phone]. [facility] XR Pelvis and Hip - right AP and Lateral frogOrdered By: Ccf Provider on 02-19-2022 [facility] XR Pelvis and Hip - right AP and Lateral frogon 02-18-2022 Radiology Study observation (narrative) [facility] CT ABD/PELV W CONon 02-12-20 [...] STEWART Date: 2022-02-11 07:23 Normal [facility] US PELVIS AND TRANSVAGon US PELVIS [...] HARTLEY Date: 2022-01-08 14:12 Normal [facility] UA DIP, URINE (POC)on 2021 BILIRUBIN UA (POCT) Negative Negative [facility] CLARITY UA (POCT) Cloudy [facility] COLOR UA (POCT) Yellow [facility] GLUCOSE UA (POCT) Negative Negative mg/dL [facility] HEMOGLOBIN/BLOOD UA (POCT) Trace-intact Abnormal Negative [facility] KETONE UA (POCT) Negative Negative mg/dL [facility] LEUKOCYTES UA (POCT) Small Abnormal Negative [facility] NITRITE UA (POCT) Negative Negative [facility] PH UA (POCT) 6.5 4.5 - 8.0 [facility] Protein Ql (U) Negative Negative mg/dL [facility] SPECIFIC GRAVITY UA (POCT) 1.015 1.005 - 1.030 [facility] UROBILINOGEN UA (POCT) 0.2 E.U./dL Normal E.U./dL [facility] Large Joint Arthro/Inj: R gr eater trochanteric bursa [facility] Vital Signs Date Time Vital Sign Value Performing Clinician Facility 01-27-2024 10:040 Body mass index (BMI) [Ratio] 29 kg/m2 Franny COSTELLO Work Phone: [facility] 01-27-2024 10:17-0400 Body weight 98.34 kg Franny COSTELLO Work Phone: [facility] 01-27-2024 10:17-0400 Diastolic blood pressure 60 mm[Hg] Franny COSTELLO Work Phone: [facility] 01-27-2024 10:17-0400 Systolic blood pressure 110 mm[Hg] Franny COSTELLO Work Phone: [facility] 02-25-2023 13:16-0500 Body height 185.4 cm Rosas Mckinney MD Work Phone: [facility] 02-25-2023 13:16-0500 Body weight 76.67 kg Rosas Mckinney MD Work Phone: [facility] 07-10-2022 15:15-0400 Body height 181.61 cm Imad Asaad Other [facility] Other 07-10-2022 15:15-0400 Body mass index (BMI) [Ratio] 24.48 kg/m2 Imad Asaad Other [facility] Other 07-10-2022 15:15-0400 Body weight 80.74 kg Imad Asaad Other [facility] Other 07-10-2022 15:15-0400 Diastolic blood pressure 78 mm[Hg] Imad Asaad Other [facility] Other 07-10-2022 15:15-0400 Systolic blood pressure 130 mm[Hg] Imad Asaad Other [facility] Other 05-26-2022 09:29-0500 Blood Pressure Location Roxanne MOSLEY [facility] 05-26-2022 09:29-0500 Body temperature 98.42 [degF] Roxanne MOSLEY [facility] 05-26-2022 09:29-0500 Diastolic blood pressure 78 mm[Hg] Roxanne MOSLEY [facility] 05-26-2022 09:29-0500 Heart rate 115 /min Roxanne MOSLEY [facility] 05-26-2022 09:29-0500 SaO2% (BldA) [Mass fraction] 98 % Roxanne MOSLEY [facility] 05-26-2022 09:29-0500 Systolic blood pressure 120 mm[Hg] Roxanne MOSLEY [facility] 02-23-2022 09:10-0400 Body temperature 98.42 [degF] [facility] 02-23-2022 09:10-0400 Diastolic blood pressure 67 mm[Hg] [facility] 02-23-2022 09:10-0400 Heart rate 88 /min [facility] 02-23-2022 09:10-0400 Respiratory rate 18 /min [facility] 02-23-2022 09:10-0400 SaO2% (BldA) [Mass fraction] 98 % [facility] 02-23-2022 09:10-0400 Systolic blood pressure 141 mm[Hg] [facility] Encounters Encounter Date Encounter Type Care [...] Start: 01-19-2024 End: 01-19-2024 ambulatory ANUPAMA BROWN Facility:[facility] Start: 01-13-2024 End: 01-13-2024 ambulatory GUILLAUME PEDRO Not Available Start: 01-05-2024 End: 01-05-2024 ambulatory ANUPAMA BROWN Facility:[facility] Start: 12-30-2023 End: 12-30-2023 ambulatory GUILLAUME PEDRO Not Available Start: 12-16-2023 End: 12-16-2023 ambulatory GUILLAUME PEDRO Not Available Start: 12-08-2023 End: 12-08-2023 ambulatory GUILLAUME R PEDRO Facility:[facility] Start: 11-20-2023 End: 11-20-2023 ambulatory ANUPAMA BROWN Facility:[facility] Start: 11-18-2023 End: 11-18-2023 ambulatory FRANNY SANDERSON Not Available Start: 10-22-2023 End: 10-22-2023 ambulatory GUILLAUME R PEDRO Facility:[facility] Start: 10-21-2023 End: 10-21-2023 ambulatory GUILLAUME PEDRO Not Available Start: 10-16-2023 End: 10-16-2023 ambulatory [facility] Start: 09-24-2023 End: 09-24-2023 ambulatory FRANNY SANDERSON Not Available Start: 08-26-2023 End: 08-26-2023 ambulatory GUILLAUME PEDRO Not Available Start: 08-08-2023 End: 08-08-2023 ambulatory GUILLAUME R PEDRO Facility:[facility] Start: 07-24-2023 End: 07-24-2023 ambulatory GUILLAUME PEDRO Not Available Start: 06-04-2023 End: 06-04-[address] [facility] Start: 06-02-2023 End: 06-02-2023 Phys/qhp telephone evaluation 5-10 min Guillaume Pedro DO Work Phone: [facility] Comment on above: Irregular menses (Pr imary Dx) Start: 06-02-2023 End: 06-02-2023 ambulatory GUILLAUME PEDRO Not Available Start: 05-28-2023 Chart abstracting Guillaume Pedro DO Work Phone: [facility] Start: 05-16-2023 End: 05-16-2023 ambulatory ANUPAMA BROWN Facility:[facility] Start: 05-05-2023 End: 05-05-2023 ambulatory ASIF SCHAEFER Facility:[facility] Start: 05-02-2023 End: 05-02-2023 ambulatory ASIF SCHAEFER [facility] Start: 05-02-2023 End: 05-02-2023 Office outpatient visit 25 minutes Asif Schaefer MACHINE TOOL BUILDER-ESTHETICIAN AND MANAGER MEDICAL SPA Work Phone: [facility] Comment on above: Attention deficit hy peractivity disorder (ADHD), predominantly inattentive type (Primary Dx); Moderate episode of recurrent major depressive disorder (CMS-HCC); Generalized anxiety disorder Start: 03-04-2023 End: 03-04-2023 ambulatory GUILLAUME PEDRO Not Available Start: 02-25-2023 End: 02-25-2023 ambulatory ANUPAMA BROWN Facility:[facility] Start: 02-25-2023 End: 02-25-2023 Office outpatient visit 25 minutes Rosas Mckinney MD Work Phone: Orthopaedics Comment on above: Lytic bone lesion of femur (Primary Dx); Greater trochanteric bursitis of right hip; Chronic pain of right hip; Chronic low back pain, unspecified back pain laterality, unspecified whether sciatica present; Pain of right hip; Bone lesion Start: 02-20-2023 End: 02-20-2023 ambulatory ANUPAMA BROWN Facility:[facility] Start: 02-20-2023 End: 02-20-2023 Subsequent [...] 07-10-2022 End: 07-10-2022 ambulatory Imad Asaad Other [facility] Other Start: 07-10-2022 Office outpatient ne w 45 minutes Imad Asaad [facility] Start: 05-26-2022 End: 05-27-2022 ambulatory Roxanne MOSLEY Facility:[facility] Start: 05-26-2022 End: 05-26-2022 Patient encounter procedure Roxanne MOSLEY [facility] Start: 05-08-2022 End: 05-08-2022 ambulatory PRAVIN SANDERSON Facility:[facility] Start: 02-26-2022 End: 02-26-2022 Patient encounter procedure Rosas Mckinney MD Work Phone: Orthopaedics Comment on above: Lytic bone lesion of femur (Primary Dx) Start: 02-23-2022 End: 02-23-2022 Emergency department patient visit Chayo Anne Facility:[facility] Start: 02-23-2022 End: 02-23-2022 Emergency department patient visit Chayo Anne [facility] Start: 02-18-2022 End: 02-18-2022 Subsequent hospital [...] SCR #### CC MAIN BLOOD BANK [place] [id number] [address] [place] [address] [place] Start: 02-25-2023 Arthrocentesis aspir &/inj major jt/bursa w/o us Tiana Cronin PA-C Work Phone: Start: 02-20-2023 Radex hip unilateral with pelvis 2-3 views Roni Dumas MD Work Phone: Start: 08-08-2022 Adult depression scr eening assessment Asif Schaefer MACHINE TOOL BUILDER-ESTHETICIAN AND MANAGER MEDICAL SPA Work Phone: Start: 08-01-2022 Radex hip unilateral with pelvis 2-3 views Jerome Avery DO Work Phone: Start: 02-18-2022 Radex hip unilateral with pelvis 2-3 views Roni Dumas MD Work Phone: Start: 11-08-2021 Urnls dip stick/tabl et rgnt auto w/o microscopy Natanael Mixon MD Work Phone: Start: 09-01-2015 Dilation and curetta ge of uterus Chayo Anen Start: 04-21-1995 Myringotomy with ins ertion of tube Chayo Anne Plan of Treatment Date Care Activity Detail Author Start: 01-04-2030 DTaP,Tdap and Td Vac cines (4 - Td or Tdap) DTaP,Tdap and Td Vaccines (4 - Td or Tdap) [facility] Start: 01-04-2030 Urine microalbumin profile DTa P,Tdap,Td Vaccine (4 - Td or Tdap) [facility] Start: 10-20-2028 Screening for malign ant neoplasm of cervix [facility] Start: 03-10-2024 Tobacco Screening Tobacco Screening [facility] Start: 02-23-2024 Screening for malign ant neoplasm of cervix [facility] Start: 02-10-2024 End: 02-10-2024 Patient encounter procedure 02/10/2024 1:00 PM EDT Routine [facility] [address] [place] [id number] Guillaume Vasquez, [address] [place] [address] [facility] Start: 12-21-2023 Covid-19 Vaccine () Covid-19 Vaccine () [facility] Start: 12-21-2023 Covid-19 Vaccine () Covid-19 Vaccine () [facility] Start: 12-21-2023 Influenza vaccination Influenza Vacc ine (#1) [facility] Start: 08-09-2023 Adult BMI Screening Adult BMI Screen ing [facility] Start: 08-09-2023 Depression Screening Depression Scre ening [facility] Start: 05-29-2023 End: 05-29-2023 Patient encounter procedure 05/29/2023 8:10 AM EST Office Visit [facility] [address] [id number] Guillaume Vasquez, [address] [place] [address] Irregular menses [facility] Comment on above: Irregular menses Start: 12-20-2022 Covid-19 Vaccine () Covid-19 Vaccine () [facility] Start: 12-20-2022 Influenza vaccination INFLUENZA (#1) [facility] Start: 11-15-2022 End: 01-15-2023 Comprehensive metabolic 2000 panel - Serum or Plasma [facility] Work Phone: Comment on above: Expected: 11/15/2022 , Expires: 01/15/2023 Start: 11-15-2022 End: 01-15-2023 Lipid 1996 panel - Serum or Plasma [facility] Work Phone: Comment on above: Expected: 11/15/2022 , Expires: 01/15/2023 Start: 11-15-2022 End: 01-15-2023 T4/FTI/T4U [facility] Work Phone: Comment on above: Expected: 11/15/2022 , Expires: 01/15/2023 Start: 11-15-2022 End: 01-15-2023 Thyrotropin [Units/volume] in Serum or Plasma [facility] Work Phone: Comment on above: Expected: 11/15/2022 , Expires: 01/15/2023 Start: 08-26-2022 End: 03-28-2023 XR HIP GENERAL 3V PELV/AP/LAT RIGHT XR HIP GENERAL 3V PELV/AP/LAT RIGHT Radiology Routine Lytic bone lesion of femur Expected: 08/26/2022, Expires: 03/28/2023 [facility] Work Phone: Comment on above: Expected: 08/26/2022 , Expires: 03/28/2023 Start: 08-09-2022 End: 10-09-2022 25-hydroxyvitamin D3 [Mass/volume] in Serum or Plasma [facility] Work Phone: Comment on above: Expected: 08/09/2022 , Expires: 10/09/2022 Start: 04-21-2022 DEPRESSION ASSESSMENT DEPRESSION ASS ESSMENT [facility] Start: 12-20-2021 Influenza vaccination INFLUENZA (#1) [facility] Start: 12-06-2021 End: 02-05-2022 Thyrotropin [Units/volume] in Serum or Plasma [facility] Work Phone: Comment on above: Expected: 12/06/2021 , Expires: 02/05/2022 Start: 12-06-2021 End: 02-05-2022 Thyroxine (T4) free [Mass/volume] in Serum or Plasma [facility] Work Phone: Comment on above: Expected: 12/06/2021 , Expires: 02/05/2022 Start: 12-06-2021 End: 02-05-2022 Triiodothyronine (T3) [Mass/volume] in Serum or Plasma [facility] Work Phone: Comment on above: Expected: 12/06/2021 , Expires: 02/05/2022 Start: 11-08-2021 End: 01-08-2022 Choriogonadotropin ( test) [Presence] in Urine [facility] Work Phone: Comment on above: Expected: 11/08/2021 , Expires: 01/08/2022 Start: 11-08-2021 End: 01-08-2022 URINALYSIS, REFLEX MICROSCOPIC [facility] Work Phone: Comment on above: Expected: 11/08/2021 , Expires: 01/08/2022 Start: 04-21-2021 DEPRESSION ASSESSMENT DEPRESSION ASS ESSMENT [facility] Start: 2021 HPV TESTING HPV TESTING [facility] Start: 10-13-2020 COVID-19 VACCINE (3 - Booster for Moderna series) COVID-19 VACCINE (3 - Booster for Moderna series) [facility] Start: 07-10-2020 COVID-19 VACCINE (3 - Booster for Moderna series) COVID-19 VACCINE (3 - Booster for Moderna series) [facility] Start: 07-10-2020 COVID-19 VACCINE (3 - Moderna series) COVID-19 VACCINE (3 - Moderna series) [facility] Start: 02-08-2012 PAP TESTING PAP TESTING [facility] Start: 02-08-2012 Screening for malign ant neoplasm of cervix [facility] Start: 2010 Urine microalbumin profile DTA P,TDAP,TD (1 - Tdap) [facility] Start: 2009 Anxiety Screening Anxiety Screening [facility] Start: 2009 Depression Screening Depression Scre ening [facility] Start: 2009 HEPATITIS C SCREENING HEPATITIS C SC REENING [facility] Start: 2009 HIV SCREENING HIV SCREENING [facility] Start: 2003 Adult depression scr eening assessment DEPRESSION SCREENING [facility] Start: 1997 Pneumococcal vaccination [facility] Start: 1991 HEPATITIS B (1 of 3 - 3-dose series) HEPATITIS B (1 of 3 - 3-dose series) [facility] Bacteria identified in Urine by Culture URINE CULTURE Microbiology Routine Pelvic pain 11/08/2021 11:36 AM EDT [facility] Work Phone: End: 06-02-2023 Drug Screen, [...] lesion 1 Occurrences starting 02/25/2023 until 03/26/2024 [facility] Work Phone: Comment on above: 1 Occurrences starti ng 02/25/2023 until 03/26/2024 End: 03-18-2024 XR HIP GENERAL 3V PELV/AP/LAT RIGHT XR HIP GENERAL 3V PELV/AP/LAT RIGHT Radiology Routine Lytic bone lesion of femur 1 Occurrences starting 02/17/2023 until 03/18/2024 [facility] Work Phone: Comment on above: 1 Occurrences starti ng 02/17/2023 until 03/18/2024 [facility] Immunizations Immunization Date Immunization Notes Care Provider [facility] 01-28-2023 influenza virus vaccine, unspecified formulation Roni Dumas MD Work Phone: [facility] 02-14-2022 influenza virus vaccine, unspecified formulation Rosas Mckinney MD Work Phone: [facility] 01-18-2021 influenza virus vaccine, unspecified formulation Macy Jones APRN.CNP Work Phone: [facility] 03-01-2020 influenza, seasonal, injectable Imad Asaad Other [facility] Other 02-03-2016 influenza, injectable, quadrivalent, contains preservative Imad Asaad Other [facility] Other NEGATED: Highlighted row has not occurred!03-02-2019 influenza, seasonal, injectable Imad Asaad Other [facility] Other Payers Date Payer Category Payer Unknown [id number] 1990 Unknown [id number] 2.16.84 [id number] 1990 Unknown [id number] 2.16.84 0.1.057335.3.579.2.593 1991 Unknown [id number] 2.16.84 0.1.334385.3.579.2.593 1991 Unknown [id number] 2.16.8 40.1.055360.3.579.2.727 1991 Unknown [id number] 2.16.8 40.1.144918.3.579.2.727 1991 Unknown [id number] 2.16.84 0.1.160745.3.579.2.1286 1991 Unknown [id number] 2.16.8 40.1.413014.3.579.2.1286 1991 Unknown [id number] 2.16.8 40.1.622723.3.579.2.1286 1991 Unknown [id number] 2.16.8 40.1.632178.3.579.2.1286 1991 Unknown [id number] 2.16.84 0.1.987216.3.579.2.1259 1991 Unknown [id number] 2.16.84 0.1.454851.3.579.2.1259 1991 Unknown [id number] 2.16.84 0.1.261952.3.579.2.1259 1991 Unknown [id number] 2.16.84 0.1.190897.3.579.2.1259 1991 Unknown [id number] 2.16.84 0.1.776182.3.579.2.1259 1991 Unknown [id number] 2.16.84 0.1.580834.3.579.2.1259 1991 Unknown [id number] 2.16.84 0.1.142031.3.579.2.1259 1991 Unknown [id number] 2.16.84 0.1.251906.3.579.2.1259 1991 Unknown [id number] 2.16.84 0.1.303524.3.579.2.1259 1991 Unknown [id number] 2.16.84 0.1.120102.3.579.2.1259 1991 Unknown [id number] 2.16.840. 1.721682.3.579.2.1259 1959 Unknown [id number] Social History Date Type Detail [facility] Work Phone: Start: 1990 Sex Assigned At Not on file C [facility] Start: 10-29-2021 End: 02-26-2022 Exposure to SARS-CoV-2 (event) Not sure [facility] Start: 03-21-2013 End: 10-21-2023 Tobacco smoking status Ex-smoker (finding) [facility] Comment on above: quit 01/2013 Start: 02-26-2022 End: 10-21-2023 Sex Assigned At Female [facility] History of tobacco use Current smoker [facility] History of tobacco use Cigarette Smoker C [facility] History of tobacco use Passive smoker [facility] Start: 02-11-2022 End: 10-21-2023 Tobacco use and exposure Smokeless tobacco non-user [facility] Start: 02-11-2022 End: 02-26-2022 Alcohol intake Current drinker of alcohol (finding) [facility] Tobacco smoking status Never [facility] Start: 02-26-2022 End: 10-21-2023 History of Social function [facility] Start: 02-25-2023 End: 05-28-2023 Tobacco smoking status [facility] Occasional tobacco smoker [facility] Start: 08-08-2022 Alcohol Comment on the weekends [facility] Start: 05-28-2023 Alcohol Comment caffeine: 2-3 cups per day coffee; soda [facility] Start: 01-13-2024 End: 01-27-2024 Alcoholic beverage intake Ex-drinker (finding) [facility] Start: 06-19-2023 [facility] Functional Status Date Assessment Result Facility 05-26-2022 Functional Status N/A 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 Exam conducted with a hatchery helper present. Vitals: Estimated body mass index is [...] of: PRAVIN Dumont documented in this encounter [facility] 06-02-2023 History of Present illness Narrative Reason for Appointment: Patient ID: Jessee Almodovar is a 33 y.o. female who presents for No chief complaint on file. Patient presents today via telephone call for a telehealth appointment. Patients Phone #: [phone] (mobile) Current Medications: has a current medication [...] or as needed. Will consider referral to [facility] in future Documented by Guillaume Vasquez DO on behalf of: Guillaume Vasquez DO documented in this encounter [facility] 05-02-2023 Miscellaneous Notes [address] [facility] [id number] Patient: Jessee Almodovar Date of : 1990 Encounter Date: 05/02/2023 History of Present Illness/Psychiatric Review of Symptoms/Medical Review of Systems: Video Visit via Real-time Synchronous Audiovisual Provider [facility] [address] [address] Patient Location: patient's office in [place], [place] Video Visit Consent Statement: I discussed [...] that there are some limitations compared to exsv-pj-byxo evaluations. The patient consented to the presence of additional virtual and/or in-person participants. We elected to proceed. Jessee is a 33 y.o. female, established patient, and is logged on via HSystem for a follow-up video visit. HPI: Jessee reports she is feeling about the same since last visit. She was unable to tell the difference between taking the immediate release Adderall. She expresses frustrations with still feeling easily distractible. She has had a lot going on since the holidays. She enjoyed [place]ina and new 's with her immediate family. She traveled to [place] to see her parents, which went well. [...] episode of recurrent major depressive disorder ([facility]) Generalized anxiety disorder Attention deficit hyperactivity [...] Leon 05/02/23 1746 documented in this encounter [facility] 05-02-2023 Progress note Formatting of t his note is different from the original. [address] [facility] [address] Patient: Jessee Almodovar Date of : 1990 Encounter Date: 05/02/2023 History of Present Illness/Psychiatric Review of Symptoms/Medical Review of Systems: Video Visit via Real-time Synchronous Audiovisual Provider Location: [facility] [address] [place] [address] Patient Location: patient's office in [place], [place] Video Visit Consent Statement: I discussed [...] that there are some limitations compared to maab-tt-snel evaluations. The patient consented to the presence of additional virtual and/or in-person participants. We elected to proceed. Jessee is a 33 y.o. female, established patient, and is logged on via [employer]System for a follow-up video visit. HPI: Jessee reports she is feeling about the same since last visit. She was unable to tell the difference between taking the immediate release Adderall. She expresses frustrations with still feeling easily distractible. She has had a lot going on since the holidays. She enjoyed [place] and new 's with her immediate family. She traveled to [place] to see her parents, which went well. [...] episode of recurrent major depressive disorder ([facility]) Generalized anxiety disorder Medication Changes: yes [...] CNP, PMP-. BARAK De Leon 05/02/23 1746 [employer] 02-25-2023 Instructions Tiana Cronin PA-C - 02/25/2023 1:56 PM EST Images from the original note were not included. MRI right hip Home exercises Continue with NSAIDS CSI right hip- may repeat in 3 months if needed documented in this encounter [facility] 02-25-2023 Note HNO ID: [id number] Author: Rosas Mckinney MD Service: ? Author [...] given from AAOS (more content not included)... [facility] 02-25-2023 History of Present illness Narrative [...] bursa Informed Consent Consent Obtained: Verbal [place] Protocol A moment to CARE was completed. [...] Time: 10:49 PM documented in this encounter [facility] 11-02-2023 History of Present illness Narrative Radiology [...] 2023 8:45 AM documented in this encounter [facility] 02-20-2023 Note HNO ID: [id number] Author: Kathrine Smith RT(Kena) Service: ? Author [...] RT Francisco(R) February 20, 2023 8:45 AM [facility] 02-17-2023 Miscellaneous Notes Jourdan Atkins, My [...] like. Thanks, Td. documented in this encounter [facility] 08-01-2022 History of Present illness [...] 2022 9:04 AM documented in this encounter [facility] 07-10-2022 Evaluation note Encounter Date Diagnosis Assessment Notes Jun, Constipation (ICD-10 - K59.00) Jun, Change in bowel habits (ICD-10 - R19.4) Jun, Diarrhea (ICD-10 - R19.7) Patient to start Align probiotic. Jun, Bloating (ICD-10 - R14.0) [facility] Other 02-05-2023 Hospital Discharge instructions Patient Education 05/26/2022 10:06:58 Strep Throat, Adult, Zcrp-lb-Byuk Strep Throat, Adult Strep throat is an [...] Follow these instructions at home: Medicines Take gdtk-qjj-rzjrfkm and prescription medicines only as told by [...] 09/23/2008 Document Revised: 06/25/2019 Document Reviewed: 06/25/2019 [employer] Patient Education 2020 [employer] 05/26/2022 10:06:56 BMI for Adults BMI [...] height. This can be done either in [place] ([place] or metric measurements. Note that charts are available to help you find your BMI quickly and easily without having to do these calculations yourself. To calculate your BMI in Australian ([place] measurements, your health care provider will: [...] medical problems. BMI can be measured using Australian measurements or metric measurements. To interpret your [...] 12/17/2004 Document Revised: 03/20/2018 Document Reviewed: 02/18/2018 [employer] Patient Education 2020 Status Overload. Follow Up Care 05/26/2022 09:09:50 With:CHELSEA KRAUS DO Address: [facility] [address] [place] [address]- When: Unknown [facility] 11-08-2022 History of [...] she has undergone a workup with her barrel repairer. 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 Patient does [...] being sent back to Roni Dumas via facsByAllAccountse/[employer] Dressing Room Attendant or Chart CC for [facility] Providers. Rosas Mckinney MD Conveyor Belt Installer, Orthopaedic Surgery Division of Musculoskeletal Oncology documented in this encounter[facility]11-[facility] Evaluation + Plan note Extracted from: Title:ED Note Author:Jose BALL, Mohan Diamond te:02/23/22 Sprain of left foot (S93.602 A: Unspecified sprain of left foot, initial encounter) Orders: Crutches Elastic Bandage Application XR Foot 3+ Views Left [facility]11-05-2022 Hospital Discharge instructions Patient Education 02/23/2022 [...] fully hardened. This may takeseveral hours. Take swhc-gre-cunorgp and prescription medicines only as told by [...] 09/27/2002 Document Revised: 04/11/2018 Document Reviewed: 04/11/2018 [employer] Patient Education 2020 Status Overload. 02/23/2022 11:07:01 How to Use Cold Therapy, Zcjg-kd-Nmgg How to Use Cold Therapy Cold therapy, [...] 09/23/2008 Document Revised: 01/04/2019 Document Reviewed: 01/04/2019 [employer] Patient Education 2020 Status Overload. 02/23/2022 11:07:01 Elastic Bandage and RICE Therapy [...] limityour activities and whether you should start gtupe-tu-ypqvdz exercises for your injury. Ice Ice your [...] 09/27/2002 Document Revised: 12/26/2017 Document Reviewed: 12/26/2017 [employer] Patient Education 2020 [employer] Electronic Follow Up Care 02/23/2022 09:05:48 With:CHELSEA KRAUS Address: [facility] [address] [place], [place] [id number]- Business (1) When:02/26/2022 10:46:43 Comments:Follow-up with your primary care provider in 3 to 5 days. If symptoms worsen, do not improve, or new symptoms arise please report back to emergency department for further evaluation. [facility]10-31-2022 History of Present illness Narrative* Kathrine [...] 18, 2022 3:09 PM [facility] Nurse Note* Lillie Smith - 11/08/2021 11:25 AM EDT UA performed as ordered. Lillie Smith documented in this encounterK[facility]06-16-[facility] History of Present illness Narrative* Macy Jones APRN.CNP - 10/04/2021 3:36 PM EDT Physical documented in this encounterK[facility]05-01-2016 History general Narrative - Reported* Type Description Date Medical History Bernardo's thyroiditis Medical History Post- depression 2019 Surgical History D & C d/t miscarriage 08/2015 Surgical History LEEP 2012 Hospitalization History child [facility] Other Evaluation note* Diagnosis Acute bilateral low back pain with bilateral sciatica- Primary [facility] Diagnosis Pelvic pain- Primary documented in this encounter [facility] ClinicEvaluation note* Diagnosis Dysuria- Primary [facility] Diagnosis Dysuria- Primary [facility] Diagnosis Unspecified hypothyroidism- Primary [facility] Diagnosis Lytic bone lesion of femur- Primary [facility]* Diagnosis Moderate episode of recurrent major depressive disorder (HCC)- Primary [facility]* Diagnosis Unspecified hypothyroidism- Primary Essential hypertension, malignant Lipids blood increased Other and unspecified hyperlipidemia Vegans' anemia Other vitamin B12 deficiency anemia [facility] Diagnosis Lytic bone lesion of femur- Primary [facility] Diagnosis Lytic bone lesion of femur- Primary Greater trochanteric bursitis of right hip Enthesopathy of hip region Chronic pain of right hip Chronic low back pain, unspecified back pain laterality, unspecified whether sciatica present Pain of right hip Bone lesion Disorder of bone and cartilage, unspecified [facility] Diagnosis Attention deficit hyperactivity disorder (ADHD), predominantly 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 ([facility]) Generalized anxiety disorder [facility] Diagnosis Irregular menses- Primary Irregular menstrual cycle documented in this encounter [facility] HealthcareEvaluation note* Diagnosis Lytic bone lesion of femur [facility] Diagnosis Lytic bone lesion of femur [facility]* Diagnosis Lytic bone lesion of femur [facility]* Diagnosis 33 weeks gestation of Third trimester state, incidental Low iron Unspecified iron deficiency anemia Nonintractable headache, unspecified chronicity pattern, unspecified headache type Constipation, unspecified constipation type documented in this encounter [facility] HealthcareHospital course Narrative No data available for this section [facility] Attachments The following attachments cannot be sent through Care Everywhere. * Methylphenidate, ADULT (Australian) [facility] No data available for this section [facility] (narrative)* Diagnostic Procedure Only (Routine) - Pending Review Specialty Diagnoses / Procedures Referred By Bry pittman Referred To Contact XR IMAGING Diagnoses Lytic bone lesion of femur Procedures XR HIP GENERAL 3V PELV/AP/LAT RIGHT RADEX HIP UNILATERAL WITH PELVIS 2-3 VIEWS Rosas Mckinney MD [address] [place] [address] Xr Imaging Referral ID Status Reason Start Date Expiration Date Visits Requested Visits Authorized [id number] Pending Review Auto-Generat ed Referral 08/26/2022 03/28/2023 1 1 [facility] for referral (narrative)* Diagnostic Procedure Only (Routine) - Pending Review Specialty Diagnoses / Procedures Referred By Bry pittman Referred To Contact XR IMAGING Diagnoses Lytic bone lesion of femur Procedures XR HIP GENERAL 3V PELV/AP/LAT RIGHT RADEX HIP UNILATERAL WITH PELVIS 2-3 VIEWS Tiana Cronin PA-C [address] [place] [address] Xr Imaging [place] [address] Referral ID Status Reason Start Date Expiration Date Visits Requested Visits Authorized [id number] Pending Review Auto-Generat ed Referral 03/18/2024 1 1 [facility] for referral (narrative)* Diagnostic Procedure Only (Routine) - Closed Specialty Diagnoses / Procedures Referred By Contac t Referred To Contact XR IMAGING Diagnoses Lytic bone lesion of femur Procedures XR HIP GENERAL 3V PELV/AP/LAT RIGHT RADEX HIP UNILATERAL WITH PELVIS 2-3 VIEWS Roni Dumas MD [address] [place] [address] [place] [address] Referral ID Status Reason Start Date Expiration Date V isits Requested Visits Authorized [id number] Closed Auto-Generate d Referral 02/17/2023 03/18/2024 1 1 [facility] for referral (narrative)* Diagnostic Procedure Only (Routine) - Closed Specialty Diagnoses / Procedures Referred By Contac t Referred To Contact XR IMAGING Diagnoses Lytic bone lesion of femur Procedures XR HIP GENERAL 3V PELV/AP/LAT RIGHT RADEX HIP UNILATERAL WITH PELVIS 2-3 VIEWS Rosas Mckinney MD [address] [facility] [address] [place] [address] [place] [address] Referral ID Status Reason Start Date Expiration Date V isits Requested Visits Authorized [id number] Closed Auto-Generate d Referral 08/26/2022 03/28/2023 1 1 T [facility] for referral (narrative)* Diagnostic Procedure Only (Routine) - Closed Specialty Diagnoses / Procedures Referred By Contac t Referred To Contact XR IMAGING Diagnoses Lytic bone lesion of femur Procedures XR HIP GENERAL 3V PELV/AP/LAT RIGHT RADEX HIP UNILATERAL WITH PELVIS 2-3 VIEWS Roni Dumas MD [address] [place] [address] [place] [address] Referral ID Status Reason Start Date Expiration Date V isits Requested Visits Authorized [id number] Closed Auto-Generate d Referral 02/18/2022 03/20/2023 1 1 [facility] Reason for Referral Specialty Diagnoses / Procedures Referred By Contac t Referred To Contact [facility] Diagnoses Acute bilateral low back pain with bilateral sciatica Procedures CONSULT TO PHYSICAL THERAPY PHYSICAL THERAPY EVALUATION HIGH COMPLEX 45 MINS Macy Jones, MACHINE TOOL BUILDER.ESTHETICIAN AND MANAGER MEDICAL [employer]PA [address] [place] [address] [place] [address] [facility] [place] [address] [place] [id number] Referral ID Status Reason Start Date Expiration Date Visits Requested Visits Authorized [id number] Pending Review Auto-Generat ed Referral 10/04/2021 10/04/2022 1 1 Specialty Diagnoses / Procedures Referred By Contac t Referred To Contact MR IMAGING Diagnoses Greater trochanteric bursitis of right hip Chronic pain of right hip Pain of right hip Bone lesion Procedures MRI HIP WO IVCON RIGHT MRI ANY JT LOWER EXTREM W/O CONTRAST MATRL Tiana Cronin, LIZZY [address] [place] [id number] Mr Imaging [id number] Referral ID Status Reason Start Date Expiration Date Visits Requested Visits Authorized [id number] Authorized Auto-Generat ed Referral 02/25/2023 03/26/2024 1 [...] or prosecute any alcohol or drug abuse patient.[facility] CenterIn the event this information is protected by the Federal Confidentiality of Alcohol and Drug Abuse Patient Records regulations: The Federal rules restrict any use of the information to criminally investigate or prosecute any alcohol or drug abuse patient.[facility] CenterIn the event this information is protected by the Federal Confidentiality of Alcohol and Drug Abuse Patient Records regulations: The Federal rules restrict any use of the information to criminally investigate or prosecute any alcohol or drug abuse patient.[facility] CenterIn the event this information is protected by the Federal Confidentiality of Alcohol and Drug Abuse Patient Records regulations: The Federal rules restrict any use of the information to criminally investigate or prosecute any alcohol or drug abuse patient.[facility] CenterIn the event this information is protected by the Federal Confidentiality of Alcohol and Drug Abuse Patient Records regulations: The Federal rules restrict any use of the information to criminally investigate or prosecute any alcohol or drug abuse patient.[facility] CenterIn the event this information is protected by the Federal Confidentiality of Alcohol and Drug Abuse Patient Records regulations: The Federal rules restrict any use of the information to criminally investigate or prosecute any alcohol or drug abuse patient.[facility] CenterIn the event this information is protected by the Federal Confidentiality of Alcohol and Drug Abuse Patient Records regulations: The Federal rules restrict any use of the information to criminally investigate or prosecute any alcohol or drug abuse patient.[facility] CenterIn the event this information is protected by the Federal Confidentiality of Alcohol and Drug Abuse Patient Records regulations: The Federal rules restrict any use of the information to criminally investigate or prosecute any alcohol or drug abuse patient.[facility] CenterIn the event this information is protected by the Federal Confidentiality of Alcohol and Drug Abuse Patient Records regulations: The Federal rules restrict any use of the information to criminally investigate or prosecute any alcohol or drug abuse patient.[facility] CenterIn the event this information is protected by the Federal Confidentiality of Alcohol and Drug Abuse Patient Records regulations: The Federal rules restrict any use of the information to criminally investigate or prosecute any alcohol or drug abuse patient.[facility] CenterIn the event this information is protected by the Federal Confidentiality of Alcohol and Drug Abuse Patient Records regulations: The Federal rules restrict any use of the information to criminally investigate or prosecute any alcohol or drug abuse patient.[facility] CenterIn the event this information is protected by the Federal Confidentiality of Alcohol and Drug Abuse Patient Records regulations: The Federal rules restrict any use of the information to criminally investigate or prosecute any alcohol or drug abuse patient.[facility] CenterIn the event this information is protected by the Federal Confidentiality of Alcohol and Drug Abuse Patient Records regulations: The Federal rules restrict any use of the information to criminally investigate or prosecute any alcohol or drug abuse patient.[facility] Patient Care team informatio n (unrecognized section and content) Practice Manager Relationship Specialty Start Date End Date Anupama Brown DO [address] [place] [address] PCP - General Family Medicine 07/25/22 Emile Mesa MD [address] [address] Gastroenterology 07/25/22 Guillaume Vasquez, DO [address] [facility] [place] [address] SIDING MECHANIC 07/25/22 Practice Manager Relationship Specialty Start Date End Date Anupama Brown, DO [address] [place] [address] PCP - General Family Medicine 07/25/22 Emile Mesa MD [address] [facility] [address] [place] [address] Gastroenterology 07/25/22 Guillaume Vasquez, DO [address] [facility] [place] [address] SIDING MECHANIC 07/25/22 Practice Manager Relationship Specialty Start Date End Date Anupama Brown, DO [address] [place] [address] PCP - General Family Medicine 07/25/22 Emile Mesa MD [address] [address] Gastroenterology 07/25/22 Guillaume Vasquez, DO [address] [facility] [address] SIDING MECHANIC 07/25/22 Practice Manager Relationship Specialty Start Date End Date Anupama Brown, [address] [place] [address] PCP - General Family Medicine 07/25/22 Emile Mesa MD [address] [place] [address] [place] [address] Gastroenterology 07/25/22 Guillaume Vasquez DO [address] [facility] [place] [address] SIDING MECHANIC 07/25/22 Practice Manager Relationship Specialty Start Date End Date Chelsea Kraus DO [address] [facility] [address] [place] [address] PCP - General Family Medicine 07/02/19 Practice Manager Relationship Specialty Start Date End Date Anupama Brown MD [address] [place] [phone] PCP - General Family Medicine 03/04/23 Practice Manager Relationship Specialty Start Date End Date Anupama Brown MD [address] [place] [phone] PCP - General Family Medicine 03/04/23 Practice Manager Relationship Specialty Start Date End Date Anupama Brown DO [address] [place] [address] PCP - General Family Medicine 07/25/22 Emile Mesa MD [address] [place] [address] [place] [address] Gastroenterology 07/25/22 Guillaume Vasquez DO [address] [place] [address] Forging Roll Operator 07/25/22 Practice Manager Relationship Specialty Start Date End Date Anupama Brown DO [address] [place] [address] PCP - General Family Medicine 07/25/22 Emile Mesa MD [address] [place] [address] [address] [place] [address] Gastroenterology 07/25/22 Guillaume Vasquez DO [address] [place] [address] [place] [address] Forging Roll Operator 07/25/22 Practice Manager Relationship Specialty Start Date End Date Anupama Brown MD [address] [place] [phone] PCP - General Family Medicine 03/04/23 Practice Manager Relationship Specialty Start Date End Date Anupama Brown MD [address] [place] [place] [phone] PCP - General Family Medicine 03/04/23 Reason for Visit (unrecogniz ed section and content) Reason Comments New Pain Tumor/Mass Specialty Diagnoses / Procedures Referred By Contac t Referred To Contact Orthopedics Diagnoses Lytic bone lesion of femur Procedures CONSULT TO ORTHOPAEDICS OFFICE/OUTPATIENT NEW HIGH MDM 60-74 MINUTES Roni Dumas MD [address] [place] [address] [place] [address] Referral ID Status Reason Start Date Expiration Date V isits Requested Visits Authorized [id number] Closed PCP Requested Referral 02/18/2022 02/18/2023 1 1 Reason Comments New Pain Reason Comments Radio Gen RMP Specialty Diagnoses / Procedures Referred By Contac t Referred To Contact XR IMAGING Diagnoses Lytic bone lesion of femur Procedures XR HIP GENERAL 3V PELV/AP/LAT RIGHT RADEX HIP UNILATERAL WITH PELVIS 2-3 VIEWS Abhyankar, Roni, MD [address] [place] [address] [place] [address] Referral ID Status Reason Start Date Expiration Date V isits Requested Visits Authorized [id number] Closed Auto-Generate d Referral 02/17/2023 03/18/2024 1 1 Specialty Diagnoses / Procedures Referred By Contac t Referred To Contact XR IMAGING Diagnoses Lytic bone lesion of femur Procedures XR HIP GENERAL 3V PELV/AP/LAT RIGHT RADEX HIP UNILATERAL WITH PELVIS 2-3 VIEWS Rosas Mckinney MD [address] [place] [address] [place] [address] Referral ID Status Reason Start Date Expiration Date V isits Requested Visits Authorized [id number] Closed Auto-Generate d Referral 08/26/2022 03/28/2023 1 1 Referral ID Status Reason Start Date Expiration Date V isits Requested Visits Authorized [id number] Closed Auto-Generate d Referral 02/18/2022 03/20/2023 1 1 Reason Comments Routine Visit INFORMATION SOURCE (unrecogn ized section and content) DATE CREATED AUTHOR 05/08/2022 [facility] DATE CREATED AUTHOR AUTHOR'S ORGANIZ ATION 05/26/2022 [facility] DATE CREATED AUTHOR AUTHOR'S ORGANIZ ATION 05/04/2023 [facility] DATE CREATED AUTHOR AUTHOR'S ORGANIZ ATION 06/06/2023 [facility] DATE CREATED AUTHOR AUTHOR'S ORGANIZ ATION 10/17/[address] [facility] Ambulatory [facility] DATE CREATED AUTHOR AUTHOR'S ORGANIZ ATION 01/20/2024 [facility] DATE CREATED AUTHOR AUTHOR'S ORGANIZ ATION 01/28/2024 [facility] dical Specialists EPIC FOR RECORDS [...] BE BASED ON THE PRIMARY CLINICAL RECORDS. [facility] [employer] [facility]. provides no warranty or guarantee of the accuracy or completeness of information in this document.
[2024-02-07 13:19] VITALS: BP 133/88; PULSE 90
== END 2024-02-07 14:00 | disposition home or self-care (01) ==
LOC: US 07:28 → FBC 13:01
PROVIDERS: Visit Provider Obstetrics & Gynecology
DX: O36.63X0 Maternal care for excessive fetal growth, third trimester, not applicable or unspecified (principal); Z3A.35 35 weeks gestation of pregnancy
CPT/HCPCS: 76818

== ENCOUNTER 2024-02-10 19:29 | Outpatient (REF) | payer OTHER, SELFPAY ==
--- OUTSIDE RECORDS SUMMARY | 2024-02-10 19:34 | XMS_ITS | CCD ---
Author Organization [facility] Care Team Providers Care Grid Maker Name Role Phone Unavailable Primary Care Provider UnavailCHELSEA Murrieta Primary Care Physician [phone] Janice De La Rosa Unavailable Unavailable Unavailable [...] Unavailable PEDRO, DR OLIVEIRA Primary Care Unavailable WORCESTER, DR EMELIA Luna Consulting Unavailable PEDRO, DR [...] Unavailable Anupama Brown MD Primary Care Provider [phone] ASIF SCHAEFER Attending Unavailable EFRA, CHELSEA A [...] Primary Care Provider Unavailabl e PEDRO, GUILLAUME Attending Unavailable PEDRO, GUILLAUME Attending Unavailable PEDRO, GUILLAUME Attending Unavailable KIN, FRANNY Attending Unavailable PEDRO, GUILLAUME Attending Unavailable KIN, FRANNY Attending Unavailable PEDRO, GUILLAUME Attending Unavailable PEDRO, GUILLAUME Attending Unavailable PEDRO, GUILLAUME Attending Unavailable KIN, FRANNY Attending Unavailable KEVIN, [facility] Care Unavailabl e KEVIN, [facility] Primary Care Unavailabl e ABHYANKAR, RONI Referring Unavailable ROSAS MCKINNEY Attending Unavailable KEVIN, [facility] Primary Care Unavailabl e ABHYANKAR, RONI Referring Unavailable KEVIN, [facility] Primary Care Unavailabl e KEVIN, [facility] Primary Care Unavailabl e KEVIN, [facility] Primary Care Unavailabl e PEDRO, GUILLAUME R Referring Unavailable KEVIN, [facility] Care Unavailabl e KIN, FRANNY L Referring Unavailable KEVIN, [facility] Care Unavailabl e PEDRO, GIULLAUME R Referring Unavailable KEVIN, [facility] Primary Care Unavailabl e KEVIN, [facility] Primary Care Unavailabl e PEDRO, GUILLAUME R Referring Unavailable KEVIN, [facility] Care Unavailabl e KEVIN, [facility] Primary Care Unavailabl e ASIF SCHAEFER Referring Unavailable Medications Current Medications Medication Drug Class(es) Dates Sig (Normalized) Sig (Original) amoxicillin 500 mg oral capsule (1 source) Penicillin-class Antibacterial Start: 05-26-2022 End: 06-05-2022 take 1 capsule by mouth every twelve hours amoxicillin 500 mg Cap 500 mg = 1 cap(s), Oral, q12hr, X 10 day(s), # 20 cap(s), Refills(s) 0, Pharmacy: [facility], 172, cm, 05/26/22 [...] sources) Progestin, Estrogen Start: 05-29-19 End: 08-27-19 take 1 tablet by mouth in the morning, then take 1 tablet by mouth once daily desogestrel-ethinyl estradiol (Apri) 0.15-30 MG-MCG tablet Indications: Menorrhagia with regular cycle Take 1 tablet by mouth in the morning. Take 1 tablet by mouth daily. 90 tablet 0 05/29/2023 08/27/2023 Active docusate sodium 100 mg oral capsule (2 sources) Start: 01-27-20 End: 02-26-20 24 take 1 capsule by mouth twice daily as needed for constipation docusate sodium (Colace) 100 MG capsule Indications: Constipation, unspecified constipation type Take 1 capsule (100 mg) by mouth 2 (two) times a day as needed for constipation 30 capsule 5 01/27/2024 02/26/2024 Active labetalol hydrochloride 100 mg oral tablet (3 sources) beta-Adrenergic Anais Start: 07-24-19 End: 07-24-19 25 take 1 tablet by mouth in the morning labetalol (Normodyne) 100 MG tablet Indications: Pre-existing hypertension during , antepartum, unspecified pre-existing hypertension type Take 1 tablet (100 mg) by mouth in the morning and 1 tablet (100 mg) before bedtime. 60 tablet 11 07/24/2023 07/23/2024 Active levothyroxine sodium 0.025 mg oral tablet (20 sources) l-Thyroxine Start: 11-03-19 End: 11-03-19 25 take 1 tablet by mouth before mealtime [...] Discontinued Start: 09-11-2021 take 1 capsule by [facility] before mealtime omeprazole (PriLOSEC) [address] capsule Take 40 mg by mouth in the morning. Take before meals. 05/26/2022 Active Comment on above: Take 1 capsule by [facility] once daily. Wait 20-30 minutes before eating or taking other medications. Take 1 capsule by [facility] once daily in the morning, wait 20-30 minutes before eating or taking other medications Take 1 capsule by [facility] once daily. 20-30 minutes before eating or taking other medications Take 1 tablet by [facility] once daily in the morning, 20-30 minutes before eating or taking other medications Take 1 capsule by [facility] twice daily. PNV no.95/ferrous fum/folic ac ( [...] Start: 02-11-2023 take 1 capsule by [facility] once daily in the morning amphetamine-dextroamphetamine XR [...] on above: Take 1 capsule by [facility] twice daily. escitalopram 20 mg oral [...] Comment on above: Take 1 tablet by [facility] once daily. fluconazole 150 mg oral tablet (8 sources) Azole Antifungal Start: 02-07-20 End: 02-26-20 take 1 tablet by mouth once fluconazole (DIFLUCAN) 150 mg tablet 1 (one) tablet by mouth one time dose 1 tablet 1 02/06/2022 02/25/2023 Discontinued Comment on above: 1 (one) tablet by [facility] one time dose hydrOXYzine hydrochloride 50 [...] Comment on above: Take 1 tablet by [facility] three times daily as needed. 10 [...] 02/25/2023 Discontinued Start: 08-23-2020 End: 02-25-2023 medroxyPROGESTERone (DEPO-WI OVERA) 150 mg/mL injection Indications: Excessive or [...] Translations: [Hypothyroidism, unspecified] Chronic Unclassified (1 source) [facility] video visit Onset: 10-16-2023 Past or [...] Free T4 [Mass/Vol] 1.1 ng/dL Normal 0.9-1.7 [facility] Comment on above: Order Comment: Speci men Type: BLOOD SPECIMEN Ordering Facility: [facility] [employer] [facility] [place] Address: [facility] [address] [place] [address] Performed By: #### 3 016-3, 3024-7 #### [facility] CLIA [id number] [address] [place] [address] [place] TSH SerPl-aCncon 02-05-2024 TSH Qn 1.340 m[IU]/L Normal 0.270-4.200 [facility] Comment on above: Order Comment: Speci men Type: BLOOD SPECIMEN Ordering Facility: [facility] [employer] [facility] [place] Address: [facility] [address] [place] [address] Result Comment: If t he patient is , TSH reference range varies by gestational period: First Trimester (weeks 9-12): 0.180-2.990 mIU/L Second Trimester: 0.110-3.980 mIU/L Third Trimester: 0.480-4.710 mIU/L Manuel Grayson et al. A Practical Approach for the Verifications and Determination of Site- and Trimester-Specific Reference Intervals for Thyroid Function tests in . Thyroid, 2019:29:3:412-420. Emanuel Nassar, et al. 2017 Guidelines of the [place] [employer] for the Diagnosis and Management of Thyroid Disease during and the . Thyroid, 2017:27:3:315-389. Performed By: #### 3 016-3, 3024-7 #### [facility] CLIA [id number] [address] [place] [address] [place] Urinalysis macro (dipstick) panel (U)on 01-27-2024 Bilirubin, UA Negative Negative - 4(70) +++ mg/dL [facility] Blood, UA Negative Negative - 50 Pepito/mcL [facility] Clarity, UA Clear [facility] Color, UA Yellow [facility] Glucose, UA Negative Negative - 2000(110) ++++ mg/dL [facility] Interpretation and review of laboratory results Normal [facility] Ketones, UA Negative Negative - 160(16) ++++ mg/dL [facility] Leukocytes, UA Negative Negative - 500+++ Ilia/mcL [facility] Nitrite, UA Negative Negative - Positive [facility] pH, UA 5.5 5 - [address] [facility] Protein, UA Negative Negative - 2000(20) ++++ mg/dL [facility] Spec Grav, UA 1.020 1 - 1.[address] [facility] Urobilinogen, UA 0.2 0.2 - 12 mg/dL [facility] CBC W Auto Differential pane l (Bld)on 01-19-2024 Basophils (Bld) [#/Vol] 10*3/uL Normal <0.11 [facility] Comment on above: Order Comment: Speci men Type: BLOOD SPECIMEN Ordering Facility: External Submitter Address: , , Performed By: #### 5 7021-8 #### [facility] CLIA [id number] [address] [place] [address] 20181 Basophils/100 WBC (Bld) 0.2 % Normal [facility] Comment on above: Order Comment: Speci men Type: BLOOD SPECIMEN Ordering Facility: External Submitter Address: , , Performed By: #### 5 7021-8 #### [facility] CLIA [id number] [address] [place] [address] 00484 Differential cell count method Nom (Bld) Auto Normal [facility] Comment on above: Order Comment: Speci men Type: BLOOD SPECIMEN Ordering Facility: External Submitter Address: , , Performed By: #### 5 7021-8 #### [facility] CLIA [id number] [address] [place] [address] 92935 Eosinophils (Bld) [#/Vol] 0.06 10*3/uL Normal <0.46 [facility] Comment on above: Order Comment: Speci men Type: BLOOD SPECIMEN Ordering Facility: External Submitter Address: , , Performed By: #### 5 7021-8 #### [facility] CLIA [id number] [address] [place] [address] 09869 Eosinophils/100 WBC (Bld) 0.6 % Normal [facility] Comment on above: Order Comment: Speci men Type: BLOOD SPECIMEN Ordering Facility: External Submitter Address: , , Performed By: #### 5 7021-8 #### [facility] CLIA [id number] [address] [place] [address] 69152 Erythrocyte distribution width (RBC) [Ratio] 13.3 % Normal 11.5-15.0 [facility] Comment on above: Order Comment: Speci men Type: BLOOD SPECIMEN Ordering Facility: External Submitter Address: , , Performed By: #### 5 7021-8 #### [facility] CLIA [id number] [address] [place] [address] 36341 Hematocrit (Bld) [Volume fraction] 32.8 % Low 36.0-46.0 [facility] Comment on above: Order Comment: Speci men Type: BLOOD SPECIMEN Ordering Facility: External Submitter Address: , , Performed By: #### 5 7021-8 #### [facility] CLIA [id number] [address] [place] [address] 92705 Hemoglobin (Bld) [Mass/Vol] 10.7 g/dL Low 11.5-15.5 [facility] Comment on above: Order Comment: Speci men Type: BLOOD SPECIMEN Ordering Facility: External Submitter Address: , , Performed By: #### 5 7021-8 #### [facility] CLIA [id number] [address] [place] [address] 82305 Immature granulocytes (Bld) [#/Vol] 0.05 10*3/uL Normal <0.10 [facility] Comment on above: Order Comment: Speci men Type: BLOOD SPECIMEN Ordering Facility: External Submitter Address: , , Performed By: #### 5 7021-8 #### [facility] CLIA [id number] [address] [place] [address] Immature granulocytes/100 WBC (Bld) 0.5 % Normal [facility] Comment on above: Order Comment: Speci men Type: BLOOD SPECIMEN Ordering Facility: External Submitter Address: , , Performed By: #### 5 7021-8 #### [facility] CLIA [id number] [address] [place] [address] 01701 Lymphocytes (Bld) [#/Vol] 1.55 10*3/uL Normal 1.00-4.00 [facility] Comment on above: Order Comment: Speci men Type: BLOOD SPECIMEN Ordering Facility: External Submitter Address: , , Performed By: #### 5 7021-8 #### [facility] CLIA [id number] [address] [place] [address] 50749 Lymphocytes/100 WBC (Bld) 15.1 % Normal [facility] Comment on above: Order Comment: Speci men Type: BLOOD SPECIMEN Ordering Facility: External Submitter Address: , , Performed By: #### 5 7021-8 #### [facility] CLIA [id number] [address] [place] [address] 38411 MCH (RBC) [Entitic mass] 27.8 pg Normal 26.0-34.0 [facility] Comment on above: Order Comment: Speci men Type: BLOOD SPECIMEN Ordering Facility: External Submitter Address: , , Performed By: #### 5 7021-8 #### [facility] CLIA [id number] [address] [place] [address] 09364 MCHC (RBC) [Mass/Vol] 32.6 g/dL Normal 30.5-36.0 [facility] Comment on above: Order Comment: Speci men Type: BLOOD SPECIMEN Ordering Facility: External Submitter Address: , , Performed By: #### 5 7021-8 #### [facility] CLIA [id number] [address] [place] [address] 36077 MCV (RBC) [Entitic vol] 85.2 fL Normal 80.0-100.0 [facility] Comment on above: Order Comment: Speci men Type: BLOOD SPECIMEN Ordering Facility: External Submitter Address: , , Performed By: #### 5 7021-8 #### [facility] CLIA [id number] [address] [place] [address] 19078 Monocytes (Bld) [#/Vol] 0.77 10*3/uL Normal <0.87 [facility] Comment on above: Order Comment: Speci men Type: BLOOD SPECIMEN Ordering Facility: External Submitter Address: , , Performed By: #### 5 7021-8 #### [facility] CLIA [id number] [address] [place] [address] 47820 Monocytes/100 WBC (Bld) 7.5 % Normal [facility] Comment on above: Order Comment: Speci men Type: BLOOD SPECIMEN Ordering Facility: External Submitter Address: , , Performed By: #### 5 7021-8 #### [facility] CLIA [id number] [address] [place] [address] 33680 Neutrophils (Bld) [#/Vol] 7.81 10*3/uL High 1.45-7.50 [facility] Comment on above: Order Comment: Speci men Type: BLOOD SPECIMEN Ordering Facility: External Submitter Address: , , Performed By: #### 5 7021-8 #### [facility] CLIA [id number] [address] [place] [address] 23634 Neutrophils/100 WBC (Bld) 76.1 % Normal [facility] Comment on above: Order Comment: Speci men Type: BLOOD SPECIMEN Ordering Facility: External Submitter Address: , , Performed By: #### 5 7021-8 #### [facility] CLIA [id number] [address] [place] [address] 77858 Nucleated RBC (Bld) [#/Vol] 10*3/uL Normal <0.01 [facility] Comment on above: Order Comment: Speci men Type: BLOOD SPECIMEN Ordering Facility: External Submitter Address: , , Performed By: #### 5 7021-8 #### [facility] CLIA [id number] [address] [place] [address] 58840 Nucleated RBC/100 WBC (Bld) [Ratio] 0.0 /100 WBC Normal [facility] Comment on above: Order Comment: Speci men Type: BLOOD SPECIMEN Ordering Facility: External Submitter Address: , , Performed By: #### 5 7021-8 #### [facility] CLIA [id number] [address] [place] [address] 71819 Platelet mean volume (Bld) [Entitic vol] 11.3 fL Normal 9.0-12.7 [facility] Comment on above: Order Comment: Speci men Type: BLOOD SPECIMEN Ordering Facility: External Submitter Address: , , Performed By: #### 5 7021-8 #### [facility] CLIA [id number] [address] [place] [address] 04103 Platelets (Bld) [#/Vol] 172 10*3/uL Normal 150-400 [facility] Comment on above: Order Comment: Speci men Type: BLOOD SPECIMEN Ordering Facility: External Submitter Address: , , Performed By: #### 5 7021-8 #### [facility] CLIA [id number] [address] [place] [address] 32732 RBC (Bld) [#/Vol] 3.85 10*6/uL Low 3.90-5.20 [facility] Comment on above: Order Comment: Speci men Type: BLOOD SPECIMEN Ordering Facility: External Submitter Address: , , Performed By: #### 5 7021-8 #### [facility] CLIA [id number] [address] [place] [address] 34904 WBC (Bld) [#/Vol] 10.26 10*3/uL Normal 3.70-11.00 [facility] Comment on above: Order Comment: Speci men Type: BLOOD SPECIMEN Ordering Facility: External Submitter Address: , , Performed By: #### 5 7021-8 #### [facility] CLIA [id number] [address] [place] [address] T4 Free SerPl-mCncon 024 Free T4 [Mass/Vol] 0.9 ng/dL Normal 0.9-1.7 [facility] Comment on above: Order Comment: Speci men Type: BLOOD SPECIMEN Ordering Facility: [facility] [employer] [place] Address: [facility] [address] [place] [address] Performed By: #### G LTGST #### [facility] CLIA [id number] [address] [place] TSH SerPl-aCncon 01-05-2024 TSH Qn 1.220 m[IU]/L Normal 0.270-4.200 [facility] Comment on above: Order Comment: Speci men [...] E, et al. 2017 Guidelines of the [place] [employer] Association for the Diagnosis and Management of Thyroid Disease during and the . Thyroid, 2017:27:3:315-389. Performed By: #### 5 7021-8 #### [facility] CLIA [id number] [address] [place] [address] T4 Free SerPl-mCncon 024 Free T4 [Mass/Vol] 1.1 ng/dL Normal 0.9-1.7 [facility] Comment on above: Order Comment: Speci men Type: BLOOD SPECIMEN Ordering Facility: [facility] [employer] [place] Address: [address] [place] [address] Performed By: #### G LTGST #### [facility] CLIA [id number] [address] [place] [address] [place] TSH SerPl-aCncon 12-08-2023 TSH Qn 0.607 m[IU]/L Normal 0.270-4.200 [facility] Comment on above: Order Comment: Speci men Type: BLOOD SPECIMEN Ordering Facility: [facility] [employer] [place] Address: [facility] [address] [place] [address] Result Comment: If t he patient is , TSH reference range varies by gestational period: First Trimester (weeks 9-12): 0.180-2.990 mIU/L Second Trimester: 0.110-3.980 mIU/L Third Trimester: 0.480-4.710 mIU/L Manuel Grayson et al. A Practical Approach for the Verifications and Determination of Site- and Trimester-Specific Reference Intervals for Thyroid Function tests in . Thyroid, 2019:29:3:412-420. Emanuel Nassar, et al. 2017 Guidelines of the [place] Thy[employer] Association for the Diagnosis and Management of Thyroid Disease during and the . Thyroid, 2017:27:3:315-389. Performed By: #### G LTGST #### [facility] CLIA [id number] [address] [place] [address] [place] CBC W Auto Differential pane l (Bld)on 11-20-2023 Basophils (Bld) [#/Vol] 0.04 10*3/uL Normal <0.11 [facility] Comment on above: Order Comment: Speci men Type: BLOOD SPECIMEN Ordering Facility: [facility] [employer] [facility] [place] Address: [address] [place] [address] Performed By: #### 5 7021-8 #### [facility] CLIA [id number] [address] [place] [address] 85024 Basophils/100 WBC (Bld) 0.6 % Normal [facility] Comment on above: Order Comment: Speci men Type: BLOOD SPECIMEN Ordering Facility: [facility] [employer] [place] Address: [address] [place] [address] Performed By: #### 5 7021-8 #### [facility] CLIA [id number] [address] [place] [address] 22382 Differential cell count method Nom (Bld) Auto Normal [facility] Comment on above: Order Comment: Speci men Type: BLOOD SPECIMEN Ordering Facility: [facility] [employer] [facility] [place] Address: [address] [place] [address] Performed By: #### 5 7021-8 #### [facility] CLIA [id number] [address] [place] [address] 46675 Eosinophils (Bld) [#/Vol] 0.05 10*3/uL Normal <0.46 [facility] Comment on above: Order Comment: Speci men Type: BLOOD SPECIMEN Ordering Facility: [facility] Address: [address] [place] [address] Performed By: #### 5 7021-8 #### [facility] CLIA [id number] [address] [place] [address] 75961 Eosinophils/100 WBC (Bld) 0.7 % Normal [facility] Comment on above: Order Comment: Speci men Type: BLOOD SPECIMEN Ordering Facility: [facility] Address: [address] [place] [address] Performed By: #### 5 7021-8 #### [facility] CLIA [id number] [address] [place] [address] 32415 Erythrocyte distribution width (RBC) [Ratio] 12.9 % Normal 11.5-15.0 [facility] Comment on above: Order Comment: Speci men Type: BLOOD SPECIMEN Ordering Facility: [facility] Address: [address] [place] [id number] Performed By: #### 5 7021-8 #### [facility] CLIA [id number] [address] [place] [address] 75923 Hematocrit (Bld) [Volume fraction] 35.0 % Low 36.0-46.0 [facility] Comment on above: Order Comment: Speci men Type: BLOOD SPECIMEN Ordering Facility: [facility] [employer] [facility] [place] Address: [address] [place] [address] Performed By: #### 5 7021-8 #### [facility] CLIA [id number] [address] [place] [address] 03294 Hemoglobin (Bld) [Mass/Vol] 11.4 g/dL Low 11.5-15.5 [facility] Comment on above: Order Comment: Speci men Type: BLOOD SPECIMEN Ordering Facility: [facility] [employer] [place] Address: [address] [place] [address] Performed By: #### 5 7021-8 #### [facility] CLIA [id number] [address] [place] [address] 83263 Immature granulocytes (Bld) [#/Vol] 10*3/uL Normal <0.10 [facility] Comment on above: Order Comment: Speci men Type: BLOOD SPECIMEN Ordering Facility: [facility] [employer] [facility] [place] Address: [address] [place] [address] Performed By: #### 5 7021-8 #### [facility] CLIA [id number] [address] [place] [address] 48134 Immature granulocytes/100 WBC (Bld) 0.3 % Normal [facility] Comment on above: Order Comment: Speci men Type: BLOOD SPECIMEN Ordering Facility: [facility] [employer] [place] Address: [address] [place] [address] Performed By: #### 5 7021-8 #### [facility] CLIA [id number] [address] [place] [address] 22823 Lymphocytes (Bld) [#/Vol] 1.25 10*3/uL Normal 1.00-4.00 [facility] Comment on above: Order Comment: Speci men Type: BLOOD SPECIMEN Ordering Facility: [facility] [employer] [place] Address: [address] [place] [address] Performed By: #### 5 7021-8 #### [facility] CLIA [id number] [address] [place] [address] Lymphocytes/100 WBC (Bld) 18.3 % Normal [facility] Comment on above: Order Comment: Speci men Type: BLOOD SPECIMEN Ordering Facility: [facility] [employer] [place] Address: [facility] [address] [place] [id number] Performed By: #### 5 7021-8 #### [facility] CLIA [id number] [address] [place] [address] 84097 MCH (RBC) [Entitic mass] 29.9 pg Normal 26.0-34.0 [facility] Comment on above: Order Comment: Speci men Type: BLOOD SPECIMEN Ordering Facility: [facility] [employer] [place] Address: [facility] [address] [place] [id number] Performed By: #### 5 7021-8 #### [facility] CLIA [id number] [address] [place] [address] 00800 MCHC (RBC) [Mass/Vol] 32.6 g/dL Normal 30.5-36.0 [facility] Comment on above: Order Comment: Speci men Type: BLOOD SPECIMEN Ordering Facility: [facility] [employer] [facility] [place] Address: [facility] [address] [place] [id number] Performed By: #### 5 7021-8 #### [facility] CLIA [id number] [address] [place] [address] 99983 MCV (RBC) [Entitic vol] 91.9 fL Normal 80.0-100.0 [facility] Comment on above: Order Comment: Speci men Type: BLOOD SPECIMEN Ordering Facility: [facility] [employer] [facility] [place] Address: [facility] [address] [place] [phone] Performed By: #### 5 7021-8 #### [facility] CLIA [id number] [address] [place] [address] 82095 Monocytes (Bld) [#/Vol] 0.52 10*3/uL Normal <0.87 [facility] Comment on above: Order Comment: Speci men Type: BLOOD SPECIMEN Ordering Facility: [facility] [employer]MENT [facility] [place] Address: [address] [place] [address] Performed By: #### 5 7021-8 #### [facility] CLIA [id number] [address] [place] [address] Monocytes/100 WBC (Bld) 7.6 % Normal [facility] Comment on above: Order Comment: Speci men Type: BLOOD SPECIMEN Ordering Facility: [facility] OBBUILDING EQUIPMENT OPER[facility] [place] Address: [address] [place] [address] Performed By: #### 5 7021-8 #### [facility] CLIA [id number] [address] [place] [address] 05813 Neutrophils (Bld) [#/Vol] 4.94 10*3/uL Normal 1.45-7.50 [facility] Comment on above: Order Comment: Speci men Type: BLOOD SPECIMEN Ordering Facility: [facility] Address: [address] [place] [address] Performed By: #### 5 7021-8 #### [facility] CLIA [id number] [address] [place] [address] Neutrophils/100 WBC (Bld) 72.5 % Normal [facility] Comment on above: Order Comment: Speci men Type: BLOOD SPECIMEN Ordering Facility: [facility] Address: [address] [place] [address] Performed By: #### 5 7021-8 #### [facility] CLIA [id number] [address] [place] [address] Nucleated RBC (Bld) [#/Vol] 10*3/uL Normal <0.01 [facility] Comment on above: Order Comment: Speci men Type: BLOOD SPECIMEN Ordering Facility: [facility] Address: [address] [place] [address] Performed By: #### 5 7021-8 #### [facility] CLIA [id number] [address] [place] [address] Nucleated RBC/100 WBC (Bld) [Ratio] 0.0 /100 WBC Normal [facility] Comment on above: Order Comment: Speci men Type: BLOOD SPECIMEN [facility] Address: [facility] [place] [place] [address] Performed By: #### 5 7021-8 #### [facility] CLIA [id number] [address] [place] [address] Platelet mean volume (Bld) [Entitic vol] 11.4 fL Normal 9.0-12.7 [facility] Comment on above: Order Comment: Speci men Type: BLOOD SPECIMEN Ordering Facility: [facility] [employer]QUIPMENT [employer] [place] Address: [facility] [place] [place] [address] Performed By: #### 5 7021-8 #### [facility] CLIA [id number] [address] [place] [address] 02324 Platelets (Bld) [#/Vol] 167 10*3/uL Normal 150-400 [facility] Comment on above: Order Comment: Speci men Type: BLOOD SPECIMEN Ordering Facility: [facility] Address: [facility] [place] [address] Performed By: #### 5 7021-8 #### [facility] CLIA [id number] [address] [place] [address] 14149 RBC (Bld) [#/Vol] 3.81 10*6/uL Low 3.90-5.20 [facility] Comment on above: Order Comment: Speci men Type: BLOOD SPECIMEN Ordering Facility: [facility] OBBUILDING EQUIPMENT OPER[facility] [place] Address: [facility] [place] [address] Performed By: #### 5 7021-8 #### [facility] CLIA [id number] [address] [place] [address] 93111 WBC (Bld) [#/Vol] 6.82 10*3/uL Normal 3.70-11.00 [facility] Comment on above: Order Comment: Tammy mares Type: BLOOD SPECIMEN Ordering Facility: [facility] OB-BUILDING EQUIPMENT OPERATOR [place] Address: [address] [place] [address] Performed By: #### 5 7021-8 #### [facility] CLIA [id number] [address] [place] [address] 47301 GESTATIONAL GLUCOSE SCREEN, 1-HOUR, 50 GRAM, NON-FASTINGon 11-20-2023 Glucose [Mass/Vol] 97 mg/dL Normal 74-134 [facility] Comment on above: Order Comment: Tammy mares Type: BLOOD SPECIMEN Ordering Facility: [facility] [employer]QUIPMENT [employer] [place] Address: [address] [place] [address] Result Comment: [facility] Congress of Obstetricians and Gynecologists (Alma/Adrián) guidelines state a gestational diabetes mellitus positive screen is made, in women not previously diagnosed with overt diabetes, when the 1 hr plasma glucose level is equal to or above 140 mg/dL. The [facility] E/M Engineer and [facility] recommends a 135 mg/dL cutoff. Performed By: #### G LTGST #### [facility] CLIA [id number] [address] [place] [address] [place] T4 Free SerPl-mCncon 024 Free T4 [Mass/Vol] 1.0 ng/dL Normal 0.9-1.7 [facility] Comment on above: Order Comment: Tammy mares Type: BLOOD SPECIMEN Ordering Facility: External Submitter Address: , , Performed By: #### 5 7021-8 #### [facility] CLIA [id number] [address] [place] [address] 00818 TSH SerPl-aCncon 10-22-2023 TSH Qn 4.510 m[IU]/L High 0.270-4.200 [facility] Comment on above: Order Comment: Tammy mares [...] E, et al. 2017 Guidelines of the [place] [employer] for the Diagnosis and Management of Thyroid Disease during and the . Thyroid, 2017:27:3:315-389. Performed By: #### 5 7021-8 #### [facility] CLIA [id number] [address] [place] [address] 59923 CBC W Auto Differential pane l (Bld)on 08-08-2023 Basophils (Bld) [#/Vol] 10*3/uL Normal <0.11 [facility] Comment on above: Order Comment: Speci men Type: BLOOD SPECIMEN Ordering Facility: External Submitter Address: , , Performed By: #### 5 7021-8 #### [facility] CLIA [id number] [address] [place] [address] 01339 Basophils/100 WBC (Bld) 0.3 % Normal [facility] Comment on above: Order Comment: Speci men Type: BLOOD SPECIMEN Ordering Facility: External Sub[facility] Address: , , Performed By: #### 5 7021-8 #### [facility] CLIA [id number] [address] [place] [address] 31107 Differential cell count method Nom (Bld) Auto Normal [facility] Comment on above: Order Comment: Speci men Type: BLOOD SPECIMEN Ordering Facility: [facility] Address: , , Performed By: #### 5 7021-8 #### [facility] CLIA [id number] [address] [place] [address] 01630 Eosinophils (Bld) [#/Vol] 0.06 10*3/uL Normal <0.46 [facility] Comment on above: Order Comment: Speci men Type: BLOOD SPECIMEN Ordering Facility: [facility] Address: , , Performed By: #### 5 7021-8 #### [facility] CLIA [id number] [address] [place] [address] 02203 Eosinophils/100 WBC (Bld) 0.9 % Normal [facility] Comment on above: Order Comment: Speci men Type: BLOOD SPECIMEN Ordering Facility: [facility] Address: , , Performed By: #### 5 7021-8 #### [facility] CLIA [id number] [address] [place] [address] 77059 Erythrocyte distribution width (RBC) [Ratio] 13.7 % Normal 11.5-15.0 [facility] Comment on above: Order Comment: Speci men Type: BLOOD SPECIMEN Ordering Facility: [facility] Address: , , Performed By: #### 5 7021-8 #### [facility] CLIA [id number] [address] [place] [address] 94051 Hematocrit (Bld) [Volume fraction] 40.1 % Normal 36.0-46.0 [facility] Comment on above: Order Comment: Speci men Type: BLOOD SPECIMEN Ordering Facility: [facility] Address: , , Performed By: #### 5 7021-8 #### [facility] CLIA [id number] [address] [place] [address] 70282 Hemoglobin (Bld) [Mass/Vol] 13.4 g/dL Normal 11.5-15.5 [facility] Comment on above: Order Comment: Speci men Type: BLOOD SPECIMEN Ordering Facility: [facility] Address: , , Performed By: #### 5 7021-8 #### [facility] CLIA [id number] [address] [place] [address] 86093 Immature granulocytes (Bld) [#/Vol] 10*3/uL Normal <0.10 [facility] Comment on above: Order Comment: Speci men Type: BLOOD SPECIMEN Ordering Facility: External Sub[facility] Address: , , Performed By: #### 5 7021-8 #### [facility] CLIA [id number] [address] [place] [address] 00097 Immature granulocytes/100 WBC (Bld) 0.3 % Normal [facility] Comment on above: Order Comment: Speci men Type: BLOOD SPECIMEN Ordering Facility: External [facility]mitter Address: , , Performed By: #### 5 7021-8 #### [facility] CLIA [id number] [address] [place] [address] Lymphocytes (Bld) [#/Vol] 1.67 10*3/uL Normal 1.00-4.00 [facility] Comment on above: Order Comment: Speci men Type: BLOOD SPECIMEN Ordering Facility: External [facility]mitter Address: , , Performed By: #### 5 7021-8 #### [facility] CLIA [id number] [address] [place] [address] 37185 Lymphocytes/100 WBC (Bld) 24.9 % Normal [facility] Comment on above: Order Comment: Speci men Type: BLOOD SPECIMEN Ordering Facility: [facility] Address: , , Performed By: #### 5 7021-8 #### [facility] CLIA [id number] [address] [place] [address] 90662 MCH (RBC) [Entitic mass] 31.1 pg Normal 26.0-34.0 [facility] Comment on above: Order Comment: Speci men Type: BLOOD SPECIMEN Ordering Facility: [facility] Address: , , Performed By: #### 5 7021-8 #### [facility] CLIA [id number] [address] [place] [address] 87053 MCHC (RBC) [Mass/Vol] 33.4 g/dL Normal 30.5-36.0 [facility] Comment on above: Order Comment: Speci men Type: BLOOD SPECIMEN Ordering Facility: External Submitter Address: , , Performed By: #### 5 7021-8 #### [facility] CLIA [id number] [address] [place] [address] 22012 MCV (RBC) [Entitic vol] 93.0 fL Normal 80.0-100.0 [facility] Comment on above: Order Comment: Speci men Type: BLOOD SPECIMEN Ordering Facility: External [facility]mitter Address: , , Performed By: #### 5 7021-8 #### [facility] CLIA [id number] [address] [place] [address] 26735 Monocytes (Bld) [#/Vol] 0.50 10*3/uL Normal <0.87 [facility] Comment on above: Order Comment: Speci men Type: BLOOD SPECIMEN Ordering Facility: [facility] Address: , , Performed By: #### 5 7021-8 #### [facility] CLIA [id number] [address] [place] [address] 69952 Monocytes/100 WBC (Bld) 7.5 % Normal [facility] Comment on above: Order Comment: Speci men Type: BLOOD SPECIMEN Ordering Facility: External [facility] Address: , , Performed By: #### 5 7021-8 #### [facility] CLIA [id number] [address] [place] [address] 75718 Neutrophils (Bld) [#/Vol] 4.44 10*3/uL Normal 1.45-7.50 [facility] Comment on above: Order Comment: Speci men Type: BLOOD SPECIMEN Ordering Facility: External Submitter Address: , , Performed By: #### 5 7021-8 #### [facility] CLIA [id number] [address] [place] [address] 72719 Neutrophils/100 WBC (Bld) 66.1 % Normal [facility] Comment on above: Order Comment: Speci men Type: BLOOD SPECIMEN Ordering Facility: External Submitter Address: , , Performed By: #### 5 7021-8 #### [facility] CLIA [id number] [address] [place] [address] 68258 Nucleated RBC (Bld) [#/Vol] 10*3/uL Normal <0.01 [facility] Comment on above: Order Comment: Speci men Type: BLOOD SPECIMEN Ordering Facility: External Submitter Address: , , Performed By: #### 5 7021-8 #### [facility] CLIA [id number] [address] [place] [address] Nucleated RBC/100 WBC (Bld) [Ratio] 0.0 /100 WBC Normal [facility] Comment on above: Order Comment: Speci men Type: BLOOD SPECIMEN Ordering Facility: External Submitter Address: , , Performed By: #### 5 7021-8 #### [facility] CLIA [id number] [address] [place] [address] 53319 Platelet mean volume (Bld) [Entitic vol] 12.1 fL Normal 9.0-12.7 [facility] Comment on above: Order Comment: Speci men Type: BLOOD SPECIMEN Ordering Facility: External Submitter Address: , , Performed By: #### 5 7021-8 #### [facility] CLIA [id number] [address] [place] [address] 11210 Platelets (Bld) [#/Vol] 148 10*3/uL Low 150-400 [facility] Comment on above: Order Comment: Speci men Type: BLOOD SPECIMEN Ordering Facility: External Submitter Address: , , Performed By: #### 5 7021-8 #### [facility] CLIA [id number] [address] [place] [address] 18520 RBC (Bld) [#/Vol] 4.31 10*6/uL Normal 3.90-5.20 [facility] Comment on above: Order Comment: Speci men Type: BLOOD SPECIMEN Ordering Facility: External Submitter Address: , , Performed By: #### 5 7021-8 #### [facility] CLIA [id number] [address] [place] [address] 19909 WBC (Bld) [#/Vol] 6.71 10*3/uL Normal 3.70-11.00 [facility] Comment on above: Order Comment: Speci men Type: BLOOD SPECIMEN Ordering Facility: External Submitter Address: , , Performed By: #### 5 7021-8 #### [facility] CLIA [id number] [address] [place] [address] 47394 HBV surface Ag Ser Qlon 07-20 HBV surface Ag Ql (S) Negative Normal Negative [facility] Comment on above: Order Comment: Speci men Type: BLOOD SPECIMEN Ordering Facility: External Submitter Address: , , Performed By: #### 5 7021-8 #### [facility] CLIA [id number] [address] [place] [id number] HCV Ab Ser Qlon 08-08-2023 HCV Ab Ql (S) Negative Normal Negative [facility] Comment on above: Order Comment: Speci men Type: BLOOD SPECIMEN Ordering Facility: External Submitter Address: , , Result Comment: The result suggests no evidence of active infection with Hepatitis C virus. Should recent infection be suspected, repeat testing may be considered 4-6 weeks after this draw. Performed By: #### 1 6128-1 #### [facility] CLIA [id number] [address] [place] [address] [place] HIV 1+2 Ab IA Qlon HIV 1 and 2 Ab IA.rapid Nom (S/P/Bld) Normal [facility] Comment on above: Order Comment: Speci vishnu Type: BLOOD SPECIMEN Ordering Facility: External Submitter Address: , , Result Comment: Test not indicated. Performed By: #### 5 7021-8 #### [facility] CLIA [id number] [address] [place], [place] [address] HIV 1+2 Ab+HIV1 p24 Ag IA Ql Non-Reactive Normal Nonreactive [facility] Comment on above: Order Comment: Speci men Type: BLOOD SPECIMEN Ordering Facility: External Submitter Address: , , Performed By: #### 5 7021-8 #### [facility] CLIA [id number] [address] [place] [address] 61588 HIV immunoassay testing algorithm interpretation (S/P/Bld) [Interp] Normal [facility] Comment on above: Order Comment: Speci men Type: BLOOD SPECIMEN Ordering Facility: External Submitter Address: , , Result Comment: No e vidence of HIV-1 or HIV-2 infection. Should recent infection be suspected, repeat testing may be considered 2-3 weeks after this draw. [place] Rev. Code 3701.243(E): This information has been [...] results or diagnoses. Performed By: #### 5 7021-8 #### [facility] CLIA [id number] [address] [place] [address] HbA1c (Bld)on 08-08-2023 Average glucose Estimated from glycated hemoglobin (Bld) [Mass/Vol] 105 mg/dL Normal [facility] Comment on above: Order Comment: Speci men Type: BLOOD SPECIMEN Ordering Facility: External Submitter Address: , , Result Comment: eAG: (Estimated average glucose) is a calculated value from HgbA1c and is personal service representative of the average blood glucose level in the last 2-3 month period. Performed By: #### 5 5454-3 #### [facility] CLIA [id number] [address] [place] [address] [place] HbA1c (Bld) [Mass fraction] 5.3 % Normal 4.3-5.6 [facility] Comment on above: Order Comment: Tammy mares [...] diabetes. 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 RPR may be reactive in a variety of infectious and non-infectious conditions. Correlation with clinical picture and with treponemal antibody results is required for final interpretation. Performed By: #### G LTGST #### [facility] CLIA [id number] [address] [place] [address] [place] RUBELLA IGG ANTIBODYon 08-07 RUBELLA IGG AB, QUAL Positive Normal Positive [facility] Comment on above: Order Comment: Tammy mares Type: BLOOD SPECIMEN Ordering Facility: [facility] Address: [address] [place] [address] [place] [address] Result Comment: The result suggests recent or past exposure to Rubella virus or history of Rubella vaccination. Positive result may also be seen due to presence of passively-transferred antibodies. Please correlate with patient's history. Performed By: #### G LTGST #### [facility] CLIA [id number] [address] [place] [address] [place] TYPE + SCREENon 08-08-2023 ABO A Normal [facility] Comment on above: Order Comment: Speci men Type: BLOOD SPECIMEN Ordering Facility: External Submitter Address: , , Performed By: #### T SCR #### [facility] CLIA [id number] [facility] [place] [address] [place] HISTORICAL AB SCR STATUS Negative Normal [facility] Comment on above: Order Comment: Speci men Type: BLOOD SPECIMEN Ordering Facility: External Submitter Address: , , Performed By: #### T SCR #### [facility] CLIA [id number] [address] [place] [address] [place] Rh Nom (Bld) Positive Normal [facility] Comment on above: Order Comment: Speci men Type: BLOOD SPECIMEN Ordering Facility: External Submitter Address: , , Performed By: #### T SCR #### [facility] CLIA [id number] [address] TYPE AND SCREEN EXPIRATION 08/11/2023 23:59 Normal [facility] Comment on above: Order Comment: Specbertha mares Type: BLOOD SPECIMEN Ordering Facility: External Submitter Address: , , Performed By: #### T SCR #### [facility] CLIA [id number] [address] B-HCG SerPl-aCncon 4 HCG.beta subunit Qn m[IU]/mL Normal <5.0 [facility] Comment on above: Order Comment: Specbertha mares Type: BLOOD SPECIMEN Ordering Facility: External Submitter Address: , , Result Comment: Dianne logan Performed By: #### 5 7021-8 #### [facility] CLIA [id number] [address] [place] [address] [facility] CNPN Telephone (HEMASA) JESSEE ALMODOVAR ([id number]) 1990 [facility] Date Time Provider Department 05/16/23 RONI DUMAS During your visit today, we recorded the following information about you: Allergies As of Date: 05/16/2023 (No Known Allergies) Date Reviewed: 04/11/2023 Reviewed by: Macy Jones APRN.PSYCHOLOGY CLINICIAN - Fully Assessed Reason for Visit: Lab Orders [1688] Primary Visit Diagnosis:Possible , not confirmed [Z32.00] Order(s):HCG QUANTITATIVE [SQHCGQT] Order #: [id number] FUTURE Prescriptions as of 05/16/2023 - doxycycline [...] RONI DUMAS on 05/16/23 Normal [facility] TOX SCREEN ROUT URon 024 Amphetamines Confirm (U) [Mass/Vol] Negative Normal Negative [facility] Comment on above: Order Comment: Speci men Type: BLOOD SPECIMEN Ordering Facility: [facility]-[employer]MENT [employer] [place] Address: [facility] [address] [place] [address] Result Comment: Cuto ff threshold at 1000 ng/mL. Performed By: #### G LTGST #### [facility] CLIA [id number] [address] [place] [address] [place] BARBITURATES, URINE Negative Normal Negative [facility] Comment on above: Order Comment: Speci men Type: BLOOD SPECIMEN Ordering Facility: [facility]-[employer]QUIPMENT [employer] [place] Address: [facility] [address] [place] [address] Result Comment: Cuto ff threshold at 200 ng/mL. Performed By: #### G LTGST #### [facility] [facility] [place] [id number] [address] [place] [address] [place] BENZODIAZEPINES, [place] Negative Normal Negative [facility] Comment on above: Order Comment: Speci men Type: BLOOD SPECIMEN Ordering Facility: [facility] [facility] [place] Address: [facility] [address] [place] [address] Result Comment: Cuto ff threshold at 200 ng/mL. Performed By: #### G LTGST #### [facility] CLIA [id number] [address] [place] [address] [place] Cannabinoids Screen Ql (U) Negative Normal Negative [facility] Comment on above: Order Comment: Speci men Type: BLOOD SPECIMEN Ordering Facility: [facility] [facility] [place] Address: [facility] [address] [place] [address] Result Comment: Cuto ff threshold at 50 ng/mL. Performed By: #### G LTGST #### [facility] CLIA [id number] [address] [place] [address] [place] Cocaine Ql (U) Negative Normal Negative [facility] Comment on above: Order Comment: Speci men Type: BLOOD SPECIMEN Ordering Facility: [facility]MENT [facility] [place] Address: [facility] [address] [place] [address] Result Comment: Cuto ff threshold at 300 ng/mL. Performed By: #### G LTGST #### [facility] CLIA [id number] [address] [place] [id number] [place] Ethanol (U) [Mass/Vol] <11 Normal <11 [facility] Comment on above: Order Comment: Speci men Type: BLOOD SPECIMEN [facility] Address: [facility] [address] [place] [address] Performed By: #### G LTGST #### [facility] CLIA [id number] [address] [place] [address] [place] Opiates Screen Ql (U) Negative Normal Negative [facility] Comment on above: Order Comment: Speci men Type: BLOOD SPECIMEN Ordering Facility: [facility] Address: [facility] [address] [place] [address] Result Comment: Cuto ff threshold at 300 ng/mL. Performed By: #### G LTGST #### [facility] CLIA [id number] [address] [place] [address] [place] oxyCODONE cutoff Screen (U) [Mass/Vol] Negative Normal Negative [facility] Comment on above: Order Comment: Speci men Type: BLOOD SPECIMEN Ordering Facility: [facility] OBBUILDING EQUIPMENT OPER[facility] [place] Address: [facility] [address] [place] [address] Result Comment: Cuto ff threshold at 100 ng/mL. Performed By: #### G LTGST #### [facility] CLIA [id number] [facility] [place] [address] [place] Phencyclidine Ql (U) Negative Normal Negative [facility] Comment on above: Order Comment: Tammy mares Type: BLOOD SPECIMEN Ordering Facility: [facility] OB-BUILDING EQUIPMENT OPERATOR [place] Address: [address] [place] [address] , [place] [address] Result Comment: Cuto ff threshold at 25 ng/mL. Performed By: #### G LTGST #### [facility] CLIA [id number] [address] [place] [id number] [place] B-HCG SerPl-aCncon 4 HCG.beta subunit Qn m[IU]/mL Normal <5.0 [facility] Comment on above: Order Comment: Tammy mares Type: BLOOD SPECIMEN Ordering Facility: External Submitter Address: , , Result Comment: Dianne logan Performed By: #### 5 [id number] #### [facility] CLIA [id number] [address] [place] [address] CNOVon 02-25-2023 CNOV Office Visit (ORTHMN ) JESSEE ALMODOVAR ([id number]) 1990 [facility] Date Time Provider Department 02/25/23 1:00 [...] (more content not included)... Normal [facility] XR HIP 3V PELV+ AP/LAT RTon 02-20-2023 [...] any questions regarding this interpretation, please call [phone]. If you are unable to reach us at the number above, please feel free to contact [facility] eRadiology at [phone]. [id number] Normal [facility] XR Pelvis and Hip - right AP [...] any questions regarding this interpretation, please call [phone]. If you are unable to reach us at the number above, please feel free to contact [facility] eRadiology at [phone]. DIVISION OF RADIOLOGY * * *Final Report* [...] any questions regarding this interpretation, please call [phone]. If you are unable to reach us at the number above, please feel free to contact [facility] eRadiology at [phone]. 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 W Auto Differential pane l (Bld)on 11-15-2022 Basophils (Bld) [#/Vol] 0.04 10*3/uL <0.11 k/uL [facility] Basophils/100 WBC (Bld) 0.8 % [facility] Differential cell count method Nom (Bld) Auto [facility] Eosinophils (Bld) [#/Vol] 0.11 10*3/uL <0.46 k/uL [facility] Eosinophils/100 WBC (Bld) 2.1 % [facility] Erythrocyte distribution width (RBC) [Ratio] 13.7 % 11.5 - 15.0 % [facility] Hematocrit (Bld) [Volume fraction] 46.7 % High 36.0 - 46.0 % [facility] Hemoglobin (Bld) [Mass/Vol] 15.6 g/dL High 11.5 - 15.5 g/dL [facility] Immature granulocytes (Bld) [#/Vol] <0.10 k/uL [facility] Immature granulocytes/100 WBC (Bld) 0.2 % [facility] Lymphocytes (Bld) [#/Vol] 1.77 10*3/uL 1.00 - 4.00 k/uL [facility] Lymphocytes/100 WBC (Bld) 33.7 % [facility] MCH (RBC) [Entitic mass] 31.8 pg 26.0 - 34.0 pg [facility] MCHC (RBC) [Mass/Vol] 33.4 g/dL 30.5 - 36.0 g/dL [facility] MCV (RBC) [Entitic vol] 95.3 fL 80.0 - 100.0 fL [facility] Monocytes (Bld) [#/Vol] 0.64 10*3/uL <0.87 k/uL [facility] Monocytes/100 WBC (Bld) 12.2 % [facility] Neutrophils (Bld) [#/Vol] 2.68 10*3/uL 1.45 - 7.50 k/uL [facility] Neutrophils/100 WBC (Bld) 51.0 % [facility] Nucleated RBC (Bld) [#/Vol] <0.01 k/uL [facility] Nucleated RBC/100 WBC (Bld) [Ratio] 0.0 /100 WBC [facility] Platelet mean volume (Bld) [Entitic vol] 11.3 fL 9.0 - 12.7 fL [facility] Platelets (Bld) [#/Vol] 154 10*3/uL 150 - 400 k/uL [facility] RBC (Bld) [#/Vol] 4.90 10*6/uL 3.90 - 5.2 0 m/uL [facility] WBC (Bld) [#/Vol] 5.25 10*3/uL 3.70 - 11. 00 k/uL [facility] CBC W Auto Differential pane l (Bld)on 08-09-2022 Basophils (Bld) [#/Vol] 0.03 10*3/uL <0.11 k/uL [facility] Basophils/100 WBC (Bld) 0.6 % [facility] Differential cell count method Nom (Bld) Auto [facility] Eosinophils (Bld) [#/Vol] 0.05 10*3/uL <0.46 k/uL [facility] Eosinophils/100 WBC (Bld) 0.9 % [facility] Erythrocyte distribution width (RBC) [Ratio] 13.6 % 11.5 - 15.0 % [facility] Hematocrit (Bld) [Volume fraction] 42.0 % 36.0 - 46.0 % [facility] Hemoglobin (Bld) [Mass/Vol] 13.5 g/dL 11.5 - 15.5 g/dL [facility] Immature granulocytes (Bld) [#/Vol] <0.10 k/uL [facility] Immature granulocytes/100 WBC (Bld) 0.4 % [facility] Lymphocytes (Bld) [#/Vol] 1.57 10*3/uL 1.00 - 4.00 k/uL [facility] Lymphocytes/100 WBC (Bld) 29.0 % [facility] MCH (RBC) [Entitic mass] 30.5 pg 26.0 - 34.0 pg [facility] MCHC (RBC) [Mass/Vol] 32.1 g/dL 30.5 - 36.0 g/dL [facility] MCV (RBC) [Entitic vol] 94.8 fL 80.0 - 100.0 fL [facility] Monocytes (Bld) [#/Vol] 0.47 10*3/uL <0.87 k/uL [facility] Monocytes/100 WBC (Bld) 8.7 % [facility] Neutrophils (Bld) [#/Vol] 3.27 10*3/uL 1.45 - 7.50 k/uL [facility] Neutrophils/100 WBC (Bld) 60.4 % [facility] Nucleated RBC (Bld) [#/Vol] <0.01 k/uL [facility] Nucleated RBC/100 WBC (Bld) [Ratio] 0.0 /100 WBC [facility] Platelet mean volume (Bld) [Entitic vol] 11.1 fL 9.0 - 12.7 fL [facility] Platelets (Bld) [#/Vol] 145 10*3/uL Low 150 - 400 k/uL [facility] RBC (Bld) [#/Vol] 4.43 10*6/uL 3.90 - 5.2 0 m/uL [facility] WBC (Bld) [#/Vol] 5.41 10*3/uL 3.70 - 11. 00 k/uL [facility] XR Pelvis and Hip - right AP [...] any questions regarding this interpretation, please call [phone]. If you are unable to reach us at the number above, please feel free to contact [facility] eRadiology at [phone]. DIVISION OF RADIOLOGY * * *Final Report* [...] any questions regarding this interpretation, please call [phone]. If you are unable to reach us at the number above, please feel free to contact [facility] eRadiology at [phone]. [facility] Radiology Study observation (narrative) [facility] XR Pelvis and Hip - right AP and Lateral frogOrdered By: Ccf Provider on 08-01-2022 [facility] Ambulatory Visit Summaryon 0 05-26-2022 Ambulatory Visit [...] Up with CHELSEA KRAUS DO When: Where: [facility] [address] [place] [address]- Medications What How Much When Why Instructions New amoxicillin (amoxicillin 500 mg Cap) 1 Capsules By Mouth Every 12 hours Strep pharyngitis Duration: 10 Days Pickup at [facility] Unchanged biotin Contact [...] physician if questions or concerns Pharmacy Information [facility]: [address] [facility] [place], [place] [id number] [phone] Allergies No Known Allergies Problems Ongoing - [...] these instructions at home: Medicines ? Take jlmb-sbg-llvmsln and prescription medicines only as told by [...] cup (more content not included)... Normal 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 No fxym-qao-vcuyuah medications today. Review of Systems PHQ Score [...] day(s), # 20 cap(s), Refills(s) 0, Pharmacy: [facility] 1985, 172, cm, 05/26/22 [...] Acute pharyngitis, unspecified) Ordered: Rapid Strep POC 31734 Follow-up With When Contact Information CHELSEA KRAUS DO [facility] [address] [place] [address]- Additional Instructions: Patient Education Strep Throat, Adult, Gkse-tc-Eccr BMI for Adults Problem List/Past Medical History [...] Strep POC Result: Positive (05/26/22 09:56:00) Normal [facility] Comment on above: Result Comment: Elec [...] these instructions at home: Medicines ? Take sbbr-ggr-digxqyu and prescription medicines only as told by [...] 09/23/2008 Document Revised: 06/25/2019 Document Reviewed: 06/25/2019 [employer] Patient Education ? 2019 [employer]. Nutrition BMI for Adults Body mass index (BMI) is a number that is calculated from a person's weight and height. BMI may help to estimate how much of a person's weight is composed of fat. BMI can help identify those who may be (more content not included)... Normal [facility] Coding Summary.on 02-26-2022 Coding Summary. [id number] Gh0 bWw+PGhlYWQ+AD7FNXUoT78 reKCcvS6AP0eYKU1SUXQFRR NFAW3UHU0shSY6NLfgS7Hds iAv IqlkyPUeSO49DBl1HYH2uEo zXSqaeR7dkMZdS6a7LvScIV 92fO11UKeoSRQzNoU3KdWlg jsgbWFy L2buSqQtsPTjLfj+PHRhYmx lIHdpZHRoPScxMDAlJyBzdH okJK8zKg7uGIXmSMJlfVdwv HNlOiBj q8wkBAJtHJnzVY5akFzeW7F keBY3DQDrt1d0Yr26lGV+PH GgGMN6xBenVSdqx546XiClg 6dqTMT3 sPAbOAntQOU9F41fb2K0FCM qUMEnTBH2wAC9jI9sgBofww jbY0CwrPXqVyK2OMX3aKQcg R6miIpr uzbxaR0qHit+N70QAP3NURO IBY1CEkf9F8ItQkjviPR+PC 91MIFqRO38kSLjcUTht4ybd Fr9AfDd JZGdIQP4zVcdPEqvo3TwXHY oO54ehWJly3V8SOCbtDlebI DbCzEkvSC6aL7hOAhgjnxsk 2hvdzsn Xlsan6lflb09rP73Y74gMLu bSZWhRKM3GKLyDYMoeKrulf 3urT5sCw0+TTmpr9mzp7xrk Fg7OnXn AKMfydCjhDpuPPQ3v6WyCc0 0Z4UfpZejf2ZcJjn0hh82cJ Nbq3L1hJN1UYdcWYKulZ0bO WxlZnQ6 HKPwQiRzuK71vMVbUNxjCc3 wdYcanLlsRH6rUCCqpzqhLF IkzP9qXBFtxWYsgVywVF7fZ TBpbjtm j980WbCeVOE3MDTpzWWdA2Z sgE5aBuExFGGpVVIeB9OsaF MeFAfxL236NTikBkX1YQBlv zAxK2Qg JBDvaIswGcM4i6K4Do6Dy7I dcidaSKN0PHzwMTHrXyC1Cd XwVyI2H4UwAik2ESImaCffQ P4zK7Yl YCIzlzmkndvreIF4OXWuYPP wnQ24bDHoQBqiFh5ld5Q5s5 92XKJmNUWmzY68Rc2iyNigD TBwdCBU nN5ifufbj4tzewvbZqIkAUH cAZt6QWi8VGPtkUlaAjRhJO S6CqS6RDP4pYFnlK0igPqjq jlolU4x Oyc+D25tuH3oLSY5PVJ1prj rHTWuxtJhVK43DM31R5TnAg wvdGFibGU+PGRpdiBzdHlsZ E8yGqMi a7eqj0TfRKmtB7KmWHKeGCg sEbp6ISIrRSB7wZV6lF0qXJ OoZWnvi3A9zGP3P1VxbnKnr c2al9cx RPFoPSteE57doVUan4K3XIN kfKM2ZAQboVyiKrOsgW17Bg c+UUGwgRkln0LzBmubn1vzf 8twyFi1 MuCgKHUlqkQztBiyNSY5b1E rXq01N13sFKtpETBmAPVdHX SlHERnwJgckh7veW4wYy5+P GNvbCB3 gGP9nS2uTMGiNiT9OSnmD72 2KfSajIIbEvceb5wam0eonN e2RpBbHSWleqYwpByhOYW0n 2PeYu81 S67vGJdtGLYaRRUmJUZmWTR clOyieh3cuR8nDv2+PC9jb2 cmau29pJ46zDC+YOInTLM6t WxlPSdw EDTgvM1kRViwTwA8RQXbIrT lxM35kJIxLAphOs4syPeizF mcOT9wESSagsmns919AoMoo 2xkIDEw uURsHZauFBK4G41zt6A9WSY yZLMjNEY8jYS4kN6ssYjsff ogbGVmdDsgdmVydGljYWwtY MvtG290 IHRvcDsnPlBhdGllbnQgTmF eGQa3D3VfTzh0SLNzhNzuUJ 7jeTTlDQolMz1auWkxlPjtS Y4nCAUo thvql969ThZkc8noHGItiGV sRIffFES6C78tu8C3ICWyJZ PrKCW4qVY3jE0jqCbbhoavx GVmdDsg wdRyiAiqPKhqSQovF231ZEX otUivZkHnuiKmCXYheEQ3BP 32OV70yCGca8B3jKH2P9JxX GRpbmct kjefiPO7MJHqFEKvkO05Oi5 wwVexCt8kAHNeQQF5UOUpnI XpA8QevF7wXqWoQDDgJORlF 3RleHQt WUolF117WEsfXgP0MWSpasT aU2IhSXVuiAzvOhQ9z2L9Cu 0QW8D8VS21EN99cONis6C6b WE7C3Cb AUZyilttmhqsoCL7EBVtCHY bzN64Uu5bjMmtKc7zKQAaIO U1ATUvtXHqM4MkfO1yJuYwG DAwMDAw Q4JrpQOhZDneJ876PDzmUnV 3DKIpcjTaS2HtOQQdbOejQr R6x6K9Xm7ONYs3QY93PX78k ELql7M4 gBG3M6QfFUVkzwmaskqzrDJ 5KTXcUXKjfU32Tu3ipCieEp 0mWNCqFWU0USQyzSYwA0Oqe V9fQvQc NRDlPQQeS2UbmFFlGAxiQ70 2FBmjZxU7PUFfssLgB6CuFW HfdTvjIzX5e0O6Rz3ERUFnL L89LLS7 aAW1FL07MT55F5OqBqdrbJP ibGU+PHRhYmxlIHdpZHRoPS tqYOAfUqShkZeyZQ5uBj8iP GVyLWNv pWbxsYRdMaPay7naYLDqPLq mXK1wyRfiX6CliRG6RKBzb8 f3Me91X97iD6FrsLU+PGNvb RL9dQP7 vK6pWfNaTqU2NAnbR415ZtK qwFRuYyngh5vvb8xsdYw2Ug F4BRPspzAniDcbHLE8x0PcS h64H92k IHdpZHRoPSIxNSUiIHZhbGl sfz8ceQ8cNy7+DAVhsBG1uZ M3gY0sRuXzIjT0BQomI293G nRvcCIv Wxqio3vxf8twwJq7DcZhJIY uhlYilQzpGJC4k6QcKi99E7 MvqVzdc4SzXbf2cm38oRIug 2A0yQQ9 X5CtGIQhvcnntFQrgLskNW6 dCZBncfyhMYCuxJ3aSPTjB9 q8IjOdSoC0JNajU7CqftX8I DEwcHQg ZZkcKED4O78eq8J4BPFaZLT yYHA1sHJ4tY6owKhdlwqxjQ VmdDsgdmVydGljYWwtYWxpZ 246IHRv vPyaMWNhsX0bTYZkuWJozGj jTV9iIWIpgxtjJwxIJAvFDJ pCUpbkBMATLU41P6BoMjn1O CBzdHls II6sfLWhHQitOd8ifCmijUs aXR7iEYDkzpfuTDApbN8tRX RtiBFnjHuqXL9mKWRxtcabc 250OiAx HST0LWWzlYTqD3OrzC6iRgJ oXAYqQSHeI0WxlBToVGcwG5 66UJyxGfO7FRMzmhTmQ5HgT WFsaWdu QnO2n7D2Lp2mKP4pAR0lUXj iLW48GQ58oJUlt9T9bGI1I3 TcEWBpaqtbtmbsfXL9LBOdH DUwaW47 xGPaJZgxEi4gk6Y7x343WBE aAWOeuN52Gk1ynFrpXLHoaU RMaK1lqfxqy4ivlvpsLlLcZ DAwMDt0 KHj4MBHekAtjDiAhWBM1LkL 9IID5oTOlzS2htEomkprraA 9wOyc+DcMzJVZirfL5C8IiQ lv6VALk vCliFC4ctTVhVCpeZy8ycOz viKwnGF4aXTHtbbfuBCZofI 1aXDTecNUvsAvyWI2mSCEek zvcw884 CtWbPPT3AHJiqSZgB6WkzQ3 cWsOuJSGpBEOsY8AvkNQtXL fpS625QDnzKiR1JRQowbZsZ 2FsLWFs fGzlXcK1l8J5Zy9CDT3shIK 5R2ZgWma2RBFprJbjIO6viH SwOJpuEj9zxToutQpbGX9qF TBpbjtw GPDrdA4rJFZadQDnuOraFD2 gUXSxdxxux629JmCpZDK7GI KqpPIxR9MmkF0uIdMpKSElB AEcU6Dy fWYaVXrvU690YDeoEnL1ONR enkAiH3YiXELmuJxaYcR6i0 U4Ts5MyVLfU7BeA6b3G0ZoM jwvdHI+ GX50WCTeQC23qXObaTZtl1r lnDy7GoYoPTWfDSF8tUyoNV ina9WjSKKuD34phSBts6B4C GNvbGxh eLTsFiTosUF4xP8bVHbldvw ws7qgimevYcxqx6prkd90mF 82U25yUCofKLQuOUEoYONjN HZhbGln jy4evE1kHd0+UCKjaBG3zTL 9yW4uVgGvAkZ0OQejE977Df QtcXVeUfivt8rdh4recJr9U jIwJSIg bxOrkSnrSXN7z9DlJg25C34 sIHdpZHRoPSIyMCUiIHZhbG kiqn0rsP5hHi3+DZ0tq2iag a27wH69 dHI+ACLtCWV9lKvhDUezROE dbX9mGYpsHrZ1VPMbXiSaiR 46lUExSUbmXn6udXrryYzbV N6wRUPf gefeh707GnAya9kuUYEriLN hMXalWUH1F09io4U6KMXuGC BdDRO6lJQ8tK0ykYtrdjkmw GVmdDsg hoFwtKouTJerQRcjV115CFJ owXvgGdBjwWBjW2bmzzEYVA 1lOjwvdGQ+AITpPCZ5lKgvE SdwYWRk kO6gXRVmG4w6RoYyGzF9DAg gC9YumwM9JWChaNGwFJKoeS FPoJ2zngbjf2xcvqsnTdIhH DAwMDt0 OVl9NBBztKdtQgTpGKC3WqI 7WCV1fEUaeP7ouUiavpxeeX 9wOyc+RklOOjwvdGQ+PHRkI HT4lCfe DVwhTMMysI4vICWaN2q5XdW aZyZ4LRipZ6AoaqI1BMAweG NaKGQffNIHfG0noieyb5qzc jogIzAw ENBrVRk4KPs8FRUkmBsiMgA lWBV6OeK2TWT8tEIzaN9wzM gpazhzgL6aQvk+TVJOOjwvd GQ+PHRk LQP1qUlpMIgdBPVhbX3uTTR nD5p4FtLnVvR9JLpxC9Pkig W8AMPngUYrSGQmyMFRdS5nw eiwo5vo rnvjCgRiZEBfFVl4KXs0UUR rnDjgIrSpHDE2BcD0PKN1lD SjbM5zuPichtnncR8fBkb+U KD4FUW5 ZD48VO46H0FjLmdnaQMutJI +PHRhYmxlIHdpZHRoPScxMD MsYlZqxOmqVX2rSv7tQUFgR WNvbGxh cHNl (more content not included)... Normal [facility] Discharge Instructionson Discharge Instructions [id number] CD:127 Normal [facility] ED Clinical Summaryon 2021 ED Clinical Summary [address] [address] ED Clinical Summary Person Information Name: JESSEE ALMODOVAR/NewMerrick Age: 32 Years : 1990 Sex: Female Language: [place] Islander PCP: Marital Status: Phone: [phone] Visit Id: Visit Reason: Foot pain-swelling; HURT [...] 02/23/2022 11:07:01 02/23/2022 11:07:01 ADDRESS: [address] [facility] [id number] PHYS DOC NOTES: MEDICAL INFORMATION: Prescriptions Given: PATIENT EDUCATION INFORMATION: Instructions: Foot Sprain; How to Use Cold Therapy, Eewk-cn-Cozn; Elastic Bandage and RICE Therapy Follow up: With: Address: When: CHELSEA [employer], [address] [place], [place] [id number] [facility] () In 3 days 02/26/2022 Comments: Follow-up with your primary care provider in 3 to 5 days. If symptoms worsen, do not improve, or new symptoms arise please report back to emergency department for further evaluation. DIAGNOSIS: Sprain of left foot Normal [facility] ED Note-Physicianon 02-24-20 ED Note-Physician Basic [...] medications Follow-up With When Contact Information CHELSEA EFRA In 3 days 02/26/2022 [facility] [address] [place], [place] [id number] Business (1) Additional Instructions: Follow-up with your primary care provider in 3 to 5 days. If symptoms worsen, do not improve, or new symptoms arise please report back to emergency department for further evaluation. Patient Education Foot Sprain How to Use Cold Therapy, Bpoh-wr-Lxhb Elastic Bandage and RICE Therapy Attestation Patient seen and evaluated by the physician web assistant. Attending physician was present in the emergency department and supervised care. This visit was performed by both the physician and an APC. I performed all aspects of the MDM as documented. This report was transcribed using voice recognition software. Every effort was made to ensure accuracy, however, inadvertently computerized freezer assistant mistakes may be present. Appropriate healthcare PPE [...] medications Ho (more content not included)... [facility] Comment on above: Result Comment: Elec tronically Signed By: Jose BALL, Mohan Mendoza\.br\Date and Time Signed: 02/23/22 13:47 EDT\.br\Electronically Co-Signed [...] This may take several hours. ? Take qqsr-ihx-lvfjqyn and prescription medicines only as told by [...] is no (more content not included)... [facility] ED Patient Summaryon ED Patient Summary (Inserted Image. Kelsi ble to display) [address] [address] Patient Discharge Instructions Person Information Name: JESSEE ALMODOVAR Age: 32 Years Arrival Date: 02/23/2022 09:05:13 Discharge Diagnosis: Sprain of left foot Primary Care Physician: Provider Information Primary Provider: Chayo Anne DO Advanced Ore Crusher:None The exam and treatment you received in the Emergency Department were for an urgent problem and are not intended as complete care. It is important that you follow up with a doctor, nurse practitioner, or physician?s web assistant for ongoing care. If your symptoms [...] Follow-up Instructions: With: Address: When: CHELSEA KRAUS [employer], [address] [place] [id number] Business (1) In 3 days 02/26/2022 [...] Foot Sprain; How to Use Cold Therapy, Ffev-dk-Mzsd; Elastic Bandage and RICE Therapy A MESSAGE TO ALL PATIENTS REGARDING OPIOIDS PRESCRIPTION OPIOIDS: WHAT YOU NEED TO KNOW Prescription opioids can be used to help relieve mzrdtpqi-gb-seqlhm pain and are often prescribed following a [...] Visit www.cdc.gov/ (more content not included)... [facility] XR Foot 3+ Views Lefton XR Foot [...] DO Transcribed by: SUZY Technologist: TIM [facility] XR Pelvis and Hip - right [...] any questions regarding this interpretation, please call [phone]. If you are unable to reach us at the number above, please feel free to contact [facility] at [phone]. DIVISION OF RADIOLOGY * * *Final Report* [...] joint appears preserved. DIVISION OF RADIOLOGY Provider, [facility]The [facility]/19/[facility]22 * * *Final Report* [...] any questions regarding this interpretation, please call [phone]. If you are unable to reach us at the number above, please feel free to contact [facility] at [phone]. [facility] XR Pelvis and Hip - right AP and Lateral frogOrdered By: Ccf Provider on 02-19-2022 [facility] XR Pelvis and Hip - right AP and Lateral frogon 02-18-2022 Radiology Study observation (narrative) [facility] CT ABD/PELV W CONon 02-12-20 CT ABD/PELV [...] by: EMELIA STEWART Date: 2022-02-11 07:23 Normal [facility] US PELVIS AND TRANSVAGon US PELVIS AND [...] JENNIFER HARTLEY Date: 2022-01-08 14:12 Normal [facility] UA DIP, URINE (POC)on 2021 BILIRUBIN UA (POCT) Negative Negative [facility] CLARITY UA (POCT) Cloudy [facility] COLOR UA (POCT) Yellow [facility] GLUCOSE UA (POCT) Negative Negative mg/dL [facility] HEMOGLOBIN/BLOOD UA (POCT) Trace-intact Abnormal Negative [facility] KETONE UA (POCT) Negative Negative mg/dL [facility] LEUKOCYTES UA (POCT) Small Abnormal Negative [facility] NITRITE UA (POCT) Negative Negative [facility] PH UA (POCT) 6.5 4.5 - 8.0 [facility] Protein Ql (U) Negative Negative mg/dL [facility] SPECIFIC GRAVITY UA (POCT) 1.015 1.005 - 1.030 [facility] UROBILINOGEN UA (POCT) 0.2 E.U./dL Normal E.U./dL [facility] Large Joint Arthro/Inj: R gr eater trochanteric bursa [facility] Vital Signs Date Time Vital Sign Value Performing Clinician Facility 01-27-2024 10:17-0400 Body mass index (BMI) [Ratio] 29 kg/m2 Franny COSTELLO Work Phone: [facility] 01-27-2024 10:17-040 Body weight 98.34 kg Franny COSTELLO Work Phone: [facility] 01-27-2024 10:17-0400 Diastolic blood pressure 60 mm[Hg] Franny COSTELLO Work Phone: [facility] 01-27-2024 10:17-0400 Systolic blood pressure 110 mm[Hg] Franny COSTELLO Work Phone: [facility] 02-25-2023 13:16-0500 Body height 185.4 cm Rosas Mckinney MD Work Phone: [facility] 02-25-2023 13:16-0500 Body weight 76.67 kg Rosas Mckinney MD Work Phone: [facility] 07-10-2022 15:15-0400 Body height 181.61 cm Imad Asaad Other [employer] Other 07-10-2022 15:15-0400 Body mass index (BMI) [Ratio] 24.48 kg/m2 Imad Asaad Other [employer] Other 07-10-2022 15:15-0400 Body weight 80.74 kg Imad Asaad Other [employer] Other 07-10-2022 15:15-0400 Diastolic blood pressure 78 mm[Hg] Imad Asaad Other [employer] Other 07-10-2022 15:15-0400 Systolic blood pressure 130 mm[Hg] Imad Asaad Other [facility] [employer] Other 05-26-2022 09:29-0500 Blood Pressure Location Roxanne MOSLEY [facility] 05-26-2022 09:29-0500 Body temperature 98.42 [degF] Roxanne MOSLEY [facility] 05-26-2022 09:29-0500 Diastolic blood pressure 78 mm[Hg] Roxanne MOSLEY [facility] 05-26-2022 09:29-0500 Heart rate 115 /min Roxanne MOSLEY [facility] 05-26-2022 09:29-0500 SaO2% (BldA) [Mass fraction] 98 % Roxanne MOSLEY [facility] 05-26-2022 09:29-0500 Systolic blood pressure 120 mm[Hg] Roxanne MOSLEY [facility] 02-23-2022 09:10-0400 Body temperature 98.42 [degF] Chayo Mcneile [facility] 02-23-2022 09:10-0400 Diastolic blood pressure 67 mm[Hg] Chayo Anne [facility] 02-23-2022 09:10-0400 Heart rate 88 /min Chayo Anne [facility] 02-23-2022 09:10-0400 Respiratory rate 18 /min Chayo Anne [facility] 02-23-2022 09:10-0400 SaO2% (BldA) [Mass fraction] 98 % Chayo Anne [facility] 02-23-2022 09:10-0400 Systolic blood pressure 141 mm[Hg] Chayo Anne [facility] Encounters Encounter Date Encounter Type Care Provider Facility Start: 02-05-2024 End: 02-05-2024 ambulatory ANUPAMA BROWN Facility:[facility] Start: 01-27-2024 End: 01-27-2024 Bamboo flowsheet Franny COSTELLO Work Phone: [facility] Start: 01-27-2024 End: 01-27-2024 Bamboo flowsheet Franny OCSTELLO Work Phone: [facility] Start: 01-27-2024 End: 01-27-2024 ambulatory FRANNY SANDERSON Not Available Start: 01-27-2024 End: 01-27-2024 flow sheet Franny COSTELLO Work Phone: [facility] Comment on above: 33 weeks gestation o f ; Third trimester ; Low iron; Nonintractable headache, unspecified chronicity pattern, unspecified headache type; Constipation, unspecified constipation type Start: 01-19-2024 End: 01-19-2024 ambulatory ANUPAMA BROWN Facility:[facility] Start: 01-13-2024 End: 01-13-2024 ambulatory GUILLAUME PEDRO Not Available Start: 01-05-2024 End: 01-05-2024 ambulatory ANUPAMA DANIELLE KEVIN Facility:[facility] Start: 12-30-2023 End: 12-30-2023 ambulatory GUILLAUME PEDRO Not Available Start: 12-16-2023 End: 12-16-2023 ambulatory GUILLAUME PEDRO Not Available Start: 12-08-2023 End: 12-08-2023 ambulatory GUILLAUME R PEDRO Facility:[facility] Start: 11-20-2023 End: 11-20-2023 ambulatory FRANNY SANDERSON Facility:[facility] Start: 11-18-2023 End: 11-18-2023 ambulatory FRANNY SANDERSON Not Available Start: 10-22-2023 End: 10-22-2023 ambulatory GUILLAUME R PEDRO Facility:[facility] Start: 10-21-2023 End: 10-21-2023 ambulatory GUILLAUME PEDRO Not Available Start: 10-16-2023 End: 10-16-2023 ambulatory [facility] Start: 09-24-2023 End: 09-24-2023 ambulatory FRANNY SANDERSON Not Available Start: 08-26-2023 End: 08-26-2023 ambulatory GUILLAUME PEDRO Not Available Start: 08-08-2023 End: 08-08-2023 ambulatory ANUPAMA DANIELLE KEVIN Facility:[facility] Start: 07-24-2023 End: 07-24-2023 ambulatory GUILLAUME PEDRO Not Available Start: 06-04-2023 End: 06-04-2023 ambulatory ASIF SCHAEFER [facility] Start: 06-02-2023 End: 06-02-2023 Phys/qhp telephone evaluation 5-10 min Guillaume Pedro DO Work Phone: [facility] Comment on above: Irregular menses (Pr imary Dx) Start: 06-02-2023 End: 06-02-2023 ambulatory GUILLAUME PEDRO Not Available Start: 05-28-2023 Chart abstracting Guillaume Pedro DO Work Phone: [facility] Start: 05-16-2023 End: 05-16-2023 ambulatory ANUPAMA BROWN Facility:[facility] Start: 05-05-2023 End: 05-05-2023 ambulatory ANUPAMA DANIELLE BROWN Facility:[facility] Start: 05-02-2023 End: 05-02-2023 ambulatory ASIF SCHAEFER [facility] Start: 05-02-2023 End: 05-02-2023 Office outpatient visit 25 minutes Asif Schaefer GRIEVANCE COORDINATOR-PSYCHOLOGY CLINICIAN Work Phone: [facility] Comment on above: Attention deficit hy peractivity disorder (ADHD), predominantly inattentive type (Primary Dx); Moderate episode of recurrent major depressive disorder (CMS-HCC); Generalized anxiety disorder Start: 03-04-2023 End: 03-04-2023 ambulatory GUILLAUME VASQUEZ Not Available Start: 02-25-2023 End: 02-25-2023 ambulatory ANUPAMA BROWN Facility:[facility] Start: 02-25-2023 End: 02-25-2023 Office outpatient visit 25 minutes Rosas Mckinney MD Work Phone: Orthopaedics Comment on above: Lytic bone lesion of femur (Primary Dx); Greater trochanteric bursitis of right hip; Chronic pain of right hip; Chronic low back pain, unspecified back pain laterality, unspecified whether sciatica present; Pain of right hip; Bone lesion Start: 02-20-2023 End: 02-20-2023 ambulatory ANUPAMA BROWN Facility:[facility] Start: 02-20-2023 End: 02-20-2023 Subsequent [...] 07-10-2022 End: 07-10-2022 ambulatory Imad Asaad Other [employer] Other Start: 07-10-2022 Office outpatient ne w 45 minutes Imad Asaad [facility] Start: 05-26-2022 End: 05-27-2022 ambulatory Roxanne MOSLEY Facility:[facility] Start: 05-26-2022 End: 05-26-2022 Patient encounter procedure Roxanne Villareal DIMITRI [facility] Start: 05-08-2022 End: 05-08-2022 ambulatory PRAVIN SANDERSON Facility: Start: 02-26-2022 End: 02-26-2022 Patient encounter procedure Rosas Mckinney MD Work Phone: Orthopaedics Comment on above: Lytic bone lesion of femur (Primary Dx) Start: 02-23-2022 End: 02-23-2022 Emergency department patient visit Chayo Anne [facility] Start: 02-23-2022 End: 02-23-2022 Emergency department patient visit Chayo Dayana [facility] Start: 02-18-2022 End: 02-18-2022 Subsequent hospital visit [...] Dx) Start: 10-04-2021 Orders Only Macy Jones GRIEVANCE COORDINATOR.PSYCHOLOGY CLINICIAN Work Phone: Hematology/Oncology Comment on above: Acute bilateral low back pain with bilateral sciatica (Primary Dx) Procedures Date Procedure Procedure Detail Performing Clinician Start: 01-27-2024 Urnls dip stick/tabl et rgnt non-auto w/o micrscp Franny COSTELLO Work Phone: Start: 10-21-2023 Microscopic observat ion [Identifier] in Cervix by Cyto stain Franny COSTELLO Work Phone: Start: 08-08-2023 Antibody screen ANUPAMA AVERY Comment on above: Order Comment: Speci men Type: BLOOD SPECIMEN Ordering Facility: External Submitter Address: , , Performed By: #### T SCR #### [facility] [place] [id number] [address] [place] [address] [place] Start: 02-25-2023 Arthrocentesis aspir &/inj major jt/bursa w/o us Tiana Cronin PA-C Work Phone: Start: 02-20-2023 Radex hip unilateral with pelvis 2-3 views Roni Dumas MD Work Phone: Start: 08-08-2022 Adult depression scr eening assessment Asif Heribertoele GRIEVANCE COORDINATOR-PSYCHOLOGY CLINICIAN Work Phone: Start: 08-01-2022 Radex hip unilateral [...] Td Vaccines (4 - Td or Tdap) [facility] Start: 01-04-2030 Urine microalbumin profile DTa P,Tdap,Td Vaccine (4 - Td or Tdap) [facility] Start: 10-20-2028 Screening for malign ant neoplasm of cervix [facility] Start: 03-10-2024 Tobacco Screening Tobacco Screening [facility] Start: 02-23-2024 Screening for malign ant neoplasm of cervix [facility] Start: 02-10-2024 End: 02-10-2024 Patient encounter procedure 02/10/2024 1:00 PM EDT Routine [facility] [address] [place] [place] [id number] Guillaume Vasquez, DO [address] [place], [place] [id number] [facility] Start: 12-21-2023 Covid-19 Vaccine ( season) Covid-19 Vaccine ( season) [facility] Start: 12-21-2023 Covid-19 Vaccine ( season) Covid-19 Vaccine ( season) [facility] Start: 12-21-2023 Influenza vaccination Influenza Vacc ine (#1) [facility] Start: 08-09-2023 Adult BMI Screening Adult BMI Screen ing [facility] Start: 08-09-2023 Depression Screening Depression Scre ening [facility] Start: 05-29-2023 End: 05-29-2023 Patient encounter procedure 05/29/2023 8:10 AM EST Office Visit [facility] [address] [place] [id number] Guillaume Vasquez, DO [address] [place], [place] [id number] Irregular menses [facility] Comment on above: Irregular menses Start: 12-20-2022 Covid-19 Vaccine (3 - 2023-24 season) Covid-19 Vaccine () [facility] Start: 12-20-2022 Influenza vaccination INFLUENZA (#1) [facility] Start: 11-15-2022 End: 01-15-2023 Comprehensive metabolic 2000 panel - Serum or Plasma [place] Work Phone: Comment on above: Expected: 11/15/2022 , Expires: 01/15/2023 Start: 11-15-2022 End: 01-15-2023 Lipid 1996 panel - Serum or Plasma [place] Work Phone: Comment on above: Expected: 11/15/2022 , Expires: 01/15/2023 Start: 11-15-2022 End: 01-15-2023 T4/FTI/T4U [facility] Work Phone: Comment on above: Expected: 11/15/2022 , Expires: 01/15/2023 Start: 11-15-2022 End: 01-15-2023 Thyrotropin [Units/volume] in Serum or Plasma [place] Work Phone: Comment on above: Expected: 11/15/2022 , Expires: 01/15/2023 Start: 08-26-2022 End: 03-28-2023 XR HIP GENERAL 3V PELV/AP/LAT RIGHT XR HIP GENERAL 3V PELV/AP/LAT RIGHT Radiology Routine Lytic bone lesion of femur Expected: 08/26/2022, Expires: 03/28/2023 [place] Work Phone: Comment on above: Expected: 08/26/2022 , Expires: 03/28/2023 Start: 08-09-2022 End: 10-09-2022 25-hydroxyvitamin D3 [Mass/volume] in Serum or Plasma [place] Work Phone: Comment on above: Expected: 08/09/2022 , Expires: 10/09/2022 Start: 04-21-2022 DEPRESSION ASSESSMENT DEPRESSION ASS ESSMENT [facility] Start: 12-20-2021 Influenza vaccination INFLUENZA (#1) [facility] Start: 12-06-2021 End: 02-05-2022 Thyrotropin [Units/volume] in Serum or Plasma [place] Work Phone: Comment on above: Expected: 12/06/2021 , Expires: 02/05/2022 Start: 12-06-2021 End: 02-05-2022 Thyroxine (T4) free [Mass/volume] in Serum or Plasma [place] Work Phone: Comment on above: Expected: 12/06/2021 , Expires: 02/05/2022 Start: 12-06-2021 End: 02-05-2022 Triiodothyronine (T3) [Mass/volume] in Serum or Plasma [place] Work Phone: Comment on above: Expected: 12/06/2021 , Expires: 02/05/2022 Start: 11-08-2021 End: 01-08-2022 Choriogonadotropin ( test) [Presence] in Urine [place] Work Phone: Comment on above: Expected: 11/08/2021 , Expires: 01/08/2022 Start: 11-08-2021 End: 01-08-2022 URINALYSIS, REFLEX MICROSCOPIC [place] Work Phone: Comment on above: Expected: 11/08/2021 , Expires: 01/08/2022 Start: 04-21-2021 DEPRESSION ASSESSMENT DEPRESSION ASS ESSMENT [facility] Start: 2021 HPV TESTING HPV TESTING [facility] Start: 10-13-2020 COVID-19 VACCINE (3 - Booster for Moderna series) COVID-19 VACCINE (3 - Booster for Moderna series) [facility] Start: 07-10-2020 COVID-19 VACCINE (3 - Booster for Moderna series) COVID-19 VACCINE (3 - Booster for Moderna series) [facility] Start: 07-10-2020 COVID-19 VACCINE (3 - Moderna series) COVID-19 VACCINE (3 - Moderna series) [facility] Start: 02-08-2012 PAP TESTING PAP TESTING [facility] Start: 02-08-2012 [facility] Start: 2010 Urine microalbumin profile DTA P,TDAP,TD (1 - Tdap) [facility] Start: 2009 Anxiety Screening Anxiety Screening [facility] Start: 2009 Depression Screening Depression Scre ening [facility] Start: 2009 HEPATITIS C SCREENING HEPATITIS C SC REENING [facility] Start: 2009 HIV SCREENING HIV SCREENING [facility] Start: 2003 Adult depression scr eening assessment DEPRESSION SCREENING [facility] Start: 1997 Pneumococcal vaccination [facility] Start: 1991 HEPATITIS B (1 of 3 - 3-dose series) HEPATITIS B (1 of 3 - 3-dose series) [facility] Bacteria identified in Urine by Culture URINE CULTURE Microbiology Routine Pelvic pain 11/08/2021 11:36 AM EDT [place] Work Phone: End: 06-02-2023 Drug Screen, Urine Drug Screen, Urine Lab Routine Attention deficit hyperactivity disorder (ADHD), predominantly inattentive type 1 Occurrences starting 05/02/2023 until 06/02/2023 [facility] Work Phone: Comment on above: 1 Occurrences starti ng 05/02/2023 until 06/02/2023 End: 03-26-2024 MRI HIP WO IVCON RIGHT MRI HIP WO IVCON RIGHT Radiology Routine Greater trochanteric bursitis of right hip Chronic pain of right hip Pain of right hip Bone lesion 1 Occurrences starting 02/25/2023 until 03/26/2024 [place] Work Phone: Comment on above: 1 Occurrences starti ng 02/25/2023 until 03/26/2024 End: 03-18-2024 XR HIP GENERAL 3V PELV/AP/LAT RIGHT XR HIP GENERAL 3V PELV/AP/LAT RIGHT Radiology Routine Lytic bone lesion of femur 1 Occurrences starting 02/17/2023 until 03/18/2024 [place] Work Phone: Comment on above: 1 Occurrences starti ng 02/17/2023 [facility] Immunization Date Immunization Notes Care Provider Jonathan lara 01-28-2023 influenza virus vaccine, unspecified formulation Roni Dumas MD Work Phone: [facility] 02-14-2022 influenza virus vaccine, unspecified formulation Rosas Mckinney MD Work Phone: [facility] 01-18-2021 influenza virus vaccine, unspecified formulation Macy Jones APRN.CNP Work Phone: [facility] 03-01-2020 influenza, seasonal, injectable Imad Asaad Other [employer] Other 02-03-2016 influenza, injectable, quadrivalent, contains preservative Imad Asaad Other [employer] Other NEGATED: Highlighted row has not occurred!03-02-2019 influenza, seasonal, injectable Imad Asaad Other [employer] Other Payers Date Payer Category Payer Unknown [id number] 1990 Unknown [id number] 2.16.84 [id number] 1990 Unknown [id number] 2.16.84 [id number] 1991 Unknown [id number] 2.16.84 0.1.282997.3.579.2.593 1991 Unknown [id number] 2.16.8 40.1.171763.3.579.2.727 1990 Unknown [id number] 2.16.8 40.1.826064.3.579.2.727 1991 Unknown [id number] 2.16.84 0.1.870554.3.579.2.1286 1991 Unknown [id number] 2.16.8 40.1.156312.3.579.2.1286 1991 Unknown [id number] 2.16.8 40.1.176242.3.579.2.1286 1991 Unknown [id number] 2.16.8 40.1.049368.3.579.2.1286 1991 Unknown [id number] 2.16.84 0.1.976590.3.579.2.1259 1991 Unknown [id number] 2.16.84 0.1.476961.3.579.2.1259 1991 Unknown [id number] 2.16.84 0.1.685188.3.579.2.1259 1991 Unknown [id number] 2.16.84 0.1.835941.3.579.2.1259 1991 Unknown [id number] 2.16.84 0.1.435596.3.579.2.1259 1991 Unknown [id number] 2.16.84 0.1.281371.3.579.2.1259 1991 Unknown [id number] 2.16.84 0.1.406878.3.579.2.1259 1991 Unknown [id number] 2.16.84 0.1.437015.3.579.2.1259 1991 Unknown [id number] 2.16.84 0.1.414326.3.579.2.1259 1991 Unknown [id number] 2.16.84 0.1.335021.3.579.2.1259 1991 Unknown [id number] 2.16.840. [id number] 1959 Unknown [id number] Social History Date Type Detail Facility Tobacco smoking stat [facility] Tobacco smoking consumption unknown [facility] Work Phone: Start: 1990 Sex Assigned At Not on file [facility] Start: 10-29-2021 End: 02-26-2022 Exposure to SARS-CoV-2 (event) Not sure [facility] Start: 03-21-2013 End: 10-21-2023 Tobacco smoking status Ex-smoker (finding) [facility] Comment on above: quit 01/2013 Start: 02-26-2022 End: 10-21-2023 Sex Assigned At Female [facility] History of tobacco use Current smoker [facility] History of tobacco use Cigarette Smoker C [facility] History of tobacco use Passive smoker [facility] Start: 02-11-2022 End: 10-21-2023 Tobacco use and exposure Smokeless tobacco non-user [facility] Start: 02-11-2022 End: 02-26-2022 Alcohol intake Current drinker of alcohol (finding) [facility] Tobacco smoking status Never [facility] Start: 02-26-2022 End: 10-21-2023 History of Social function [facility] Start: 02-25-2023 End: 05-28-2023 Tobacco smoking status NHIS Occasional tobacco smoker [facility] Start: 08-08-2022 Alcohol Comment on the weekends [facility] Start: 05-28-2023 Alcohol Comment caffeine: 2-3 cups per day coffee; soda [facility] Start: 01-13-2024 End: 01-27-2024 Alcoholic beverage intake Ex-drinker (finding) [facility] Start: 06-19-2023 [facility] Functional Status Date Assessment Result Facility 05-26-2022 Functional Status N/A [facility] 02-23-2022 Functional Status N/A [facility] Clinical Notes 08-20-2015 to 01-27-2024 PRAVIN Dumont - 01/27/2024 9:50 AM Billie Vasquez DO - 06/02/2023 4:20 PM ESTPsychiatric Progress Note - Asif Schaefer APRN-YOLA - 05/02/2023 10:00 AM ESTPatient Instructions Note [...] nursing note reviewed. Exam conducted with a statistician theoretical present. Vitals: Estimated body mass index is [...] PRAVIN Dumont documented in this encounter [facility] 06-02-2023 History of Present illness Narrative Reason for Appointment: Patient ID: Jessee Almodovar is a 33 y.o. female who presents for No chief complaint on file. Patient presents today via telephone call for a telehealth appointment. Patients Phone #: [phone] (mobile) Current Medications: has a current medication [...] or as needed. Will consider referral to [facility] in future Documented by Guillaume Vasquez DO on behalf of: Guillaume Vasquez DO documented in this encounter [facility] 05-02-2023 Miscellaneous Notes [address] [place] [address] Patient: Jessee Almodovar Date of : 1990 Encounter Date: 05/02/2023 History of Present Illness/Psychiatric Review of Symptoms/Medical Review of Systems: Video Visit via Real-time Synchronous Audiovisual Provider Location: [facility] [address] [place] [address] Patient Location: patient's office in [place], [place] Video Visit Consent Statement: I discussed [...] that there are some limitations compared to [id number] evaluations. The patient consented to the presence of additional virtual and/or in-person participants. We elected to proceed. Jessee is a 33 y.o. female, established patient, and is logged on via [employer] for a follow-up video visit. HPI: Jessee reports she is feeling about the same since last visit. She was unable to tell the difference between taking the immediate release Adderall. She expresses frustrations with still feeling easily distractible. She has had a lot going on since the holidays. She enjoyed [place] and new 's with her immediate family. She traveled to [place] to see her parents, which went well. [...] by mouth in the morning. methylphenidate HCl (JORNAY PM) 20 mg capsule,del [...] Moderate episode of recurrent major depressive disorder ([facility]) Generalized anxiety disorder Medication Changes: yes [...] Leon 05/02/23 [id number] documented in this encounter [facility] 05-02-2023 Progress note Formatting of t his note is different from the original. [address] [place] [place] [address] Patient: Jessee Almodovar Date of : 1990 Encounter Date: 05/02/2023 History of Present Illness/Psychiatric Review of Symptoms/Medical Review of Systems: Video Visit via Real-time Synchronous Audiovisual Provider [facility] [address] [address] Patient Location: patient's office in [place], [place] Video Visit Consent Statement: I discussed [...] that there are some limitations compared to tmev-zs-ttwl evaluations. The patient consented to the presence of additional virtual and/or in-person participants. We elected to proceed. Jessee is a 33 y.o. female, established patient, and is logged on via [employer] for a follow-up video visit. HPI: Jessee reports she is feeling about the same since last visit. She was unable to tell the difference between taking the immediate release Adderall. She expresses frustrations with still feeling easily distractible. She has had a lot going on since the holidays. She enjoyed Gina and ' with her immediate family. She traveled to [place] to see her parents, which went well. [...] by mouth in the morning. methylphenidate HCl (JORNAY PM) 20 mg capsule,del [...] Moderate episode of recurrent major depressive disorder ([facility]) Generalized anxiety disorder Attention deficit hyperactivity disorder [...] Moderate episode of recurrent major depressive disorder ([facility]) Generalized anxiety disorder Medication Changes: yes [...] In 4 weeks ASIF SCHAEFER CNP, PMHNP-BC. Asif Schaefer APRN-YOLA 05/02/23 7148 [facility] 02-25-2023 Instructions Tiana Cronin PA-C - 02/25/2023 1:56 PM EST Images from the original note were not included. MRI right hip Home exercises Continue with NSAIDS CSI right hip- may repeat in 3 months if needed documented in this encounter [facility] 02-25-2023 Note HNO ID: [id number] Author: Rosas Mckinney MD Service: ? Author [...] AAOS (more content not included)... [facility] 02-25-2023 History of Present illness Narrative Associated [...] trochanteric bursa Informed Consent Consent Obtained: Verbal [place] Protocol A moment to CARE was completed. [...] Time: 10:49 PM documented in this encounter [facility] 02-20-2023 History of Present illness Narrative Radiology [...] PERIPHERAL IV DATA: Not applicable SIGNED BY: SENDY Singh) February 20, 2023 8:45 AM documented in this encounter [facility] 02-20-2023 Note HNO ID: [id number] Author: Kathrine Smith RT(Kena) Service: ? Author [...] IV DATA: Not applicable SIGNED BY: RT Francicso(R) February 20, 2023 8:45 AM [facility] 02-17-2023 Miscellaneous Notes Hi Wilbert, My MA Karyna is having quite a bit of pain and dysfunction in the right hip. Most days in the mornings especially, are excruciating for her and she's unable to sleep on her right side. Would you mind to see her again please? I can get additional imaging first, if you'd like. Thanks, Td. documented in this encounter [facility] 08-01-2022 History of Present illness Narrative Radiology [...] 2022 9:04 AM documented in this encounter [facility] 07-10-2022 Evaluation note Encounter Date Diagnosis Assessment Notes Jun, Constipation (ICD-10 - K59.00) Jun, Change in bowel habits (ICD-10 - R19.4) Jun, Diarrhea (ICD-10 - R19.7) Patient to start Align probiotic. Jun, Bloating (ICD-10 - R14.0) [employer] Other 02-05-2023 Hospital Discharge instructions Patient Education 05/26/2022 10:06:58 Strep Throat, Adult, Eiit-vn-Uhik Strep Throat, Adult Strep throat is an [...] Follow these instructions at home: Medicines Take yxep-jeq-zfvwliy and prescription medicines only as told by [...] 09/23/2008 Document Revised: 06/25/2019 Document Reviewed: 06/25/2019 [employer] Patient Education 2019 [employer]. 05/26/2022 10:06:56 BMI for Adults BMI for [...] height. This can be done either in [place] or metric measurements. Note that charts are available to help you find your BMI quickly and easily without having to do these calculations yourself. To calculate your BMI in [place] measurements, your health care provider will: [...] medical problems. BMI can be measured using [place]er measurements or metric measurements. To interpret your [...] 12/17/2004 Document Revised: 03/20/2018 Document Reviewed: 02/18/2018 [employer] Patient Education 2020 [employer] Follow Up Care 05/26/2022 09:09:50 With:CHELSEA KRAUS DO Address: [employer] [address] [place] [address]- When: Unknown [facility] 11-08-2022 History of Present [...] she has undergone a workup with her activities manager. She states she underwent a CT scan [...] abdominal pain with planned GI followup, as cooker chip workup so far is unremarkable. Patient does [...] being sent back to Roni Dumas via [employer] Electric Relay Tester or Chart CC for [facility] Providers. Rosas Mckinney MD Agricultural Technical Officer, Orthopaedic Surgery Division of Musculoskeletal Oncology documented in [facility] encounter[facility] Evaluation + Plan note Extracted from: Title:ED Note Author:Jose BALL, Mohan Diamond te:02/23/22 Sprain of left foot (S93.602 A: Unspecified sprain of left foot, initial encounter) Orders: Crutches Elastic Bandage Application XR Foot 3+ Views Left [facility]11-05-2022 Hospital Discharge instructions Patient Education 02/23/2022 11:07:01 [...] fully hardened. This may takeseveral hours. Take hboa-jdq-skkbwal and prescription medicines only as told by [...] 09/27/2002 Document Revised: 04/11/2018 Document Reviewed: 04/11/2018 [employer] Patient Education 2020 [employer]. 02/23/2022 11:07:01 How to Use Cold Therapy, Enkq-ej-Hnxe How to Use Cold Therapy Cold therapy, [...] 09/23/2008 Document Revised: 01/04/2019 Document Reviewed: 01/04/2019 [employer] Patient Education 2020 [employer] 02/23/2022 11:07:01 Elastic Bandage and RICE [...] limityour activities and whether you should start clwee-fl-osexhl exercises for your injury. Ice Ice your [...] 09/27/2002 Document Revised: 12/26/2017 Document Reviewed: 12/26/2017 [employer] Patient Education 2020 [employer]. Follow Up Care 02/23/2022 09:05:48 With:CHELSEA KRAUS Address: [employer] [address] [place], [place] [id number] Business (1) When:02/26/2022 10:46:43 Comments:Follow-up with your primary care provider in 3 to 5 days. If symptoms worsen, do not improve, or new symptoms arise please report back to emergency department for further evaluation. [facility]10-31-2022 History of Present illness Narrative* Kathrine Smith, [...] 18, 2022 3:09 PM documented in [facility] Nurse Note* Lillie Smith - 11/08/2021 11:25 AM EDT UA performed as ordered. Lillie Smith documented in this encounterC[facility] History of Present illness Narrative* Macy Jones APRN.CNP - 10/04/2021 3:36 PM EDT Physical documented in this encounterC[facility] History general Narrative - Reported* Type Description Date Medical History Bernardo's thyroiditis Medical History Post- depression 2019 Surgical History D & C d/t miscarriage 08/2015 Surgical History LEEP 2012 Hospitalization History child [employer] Other Evaluation note* Diagnosis Acute bilateral low back pain with bilateral sciatica- Primary [facility]* Diagnosis Pelvic pain- Primary [facility]* Diagnosis Dysuria- Primary [facility]* Diagnosis Dysuria- Primary [facility]* Diagnosis Unspecified hypothyroidism- Primary [facility]* Diagnosis Lytic bone lesion of femur- Primary [facility]* Diagnosis Moderate episode of recurrent major depressive disorder (HCC)- Primary [facility]* Diagnosis Unspecified hypothyroidism- Primary Essential hypertension, malignant Lipids blood increased Other and unspecified hyperlipidemia Vegans' anemia Other vitamin B12 deficiency anemia [facility]* Diagnosis Lytic bone lesion of femur- Primary [facility]* Diagnosis Lytic bone lesion of femur- Primary Greater trochanteric bursitis of right hip Enthesopathy of hip region Chronic pain of right hip Chronic low back pain, unspecified back pain laterality, unspecified whether sciatica present Pain of right hip Bone lesion Disorder of bone and cartilage, unspecified [facility]* Diagnosis Attention deficit hyperactivity disorder (ADHD), predominantly 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 ([facility]) Generalized anxiety disorder [facility]* Diagnosis Irregular menses- Primary Irregular menstrual cycle documented in this encounter [facility]* Diagnosis Lytic bone lesion of femur [facility]* Diagnosis Lytic bone lesion of femur documented [facility]* Diagnosis Lytic bone lesion of femur [facility]* Diagnosis 33 weeks gestation of Third trimester state, incidental Low iron Unspecified iron deficiency anemia Nonintractable headache, unspecified chronicity pattern, unspecified headache type Constipation, unspecified constipation type [facility] Narrative No data available for this section [facility]* Attachments The following attachments cannot be sent through Care Everywhere. * Methylphenidate, ADULT ([place] Islander) [facility] No data available for this section [facility] (narrative)* Diagnostic Procedure Only (Routine) - Pending Review Specialty Diagnoses / Procedures Referred By Bry t Referred To Contact XR IMAGING Diagnoses Lytic bone lesion of femur Procedures XR HIP GENERAL 3V PELV/AP/LAT RIGHT RADEX HIP UNILATERAL WITH PELVIS 2-3 VIEWS Rosas Mckinney MD [address] [place] [address] Xr Imaging Referral ID Status Reason Start Date Expiration Date Visits Requested Visits Authorized [id number] Pending Review Auto-Generat ed Referral 08/26/2022 03/28/2023 1 1 [facility] for referral (narrative)* Diagnostic Procedure Only (Routine) - Pending Review Specialty Diagnoses / Procedures Referred By Contac t Referred To Contact XR IMAGING Diagnoses Lytic bone lesion of femur Procedures XR HIP GENERAL 3V PELV/AP/LAT RIGHT RADEX HIP UNILATERAL WITH PELVIS 2-3 VIEWS Tiana Cronin PA-C [address] [place] [address] [place] [address] Referral ID Status Reason Start Date Expiration Date Visits Requested Visits Authorized [id number] Pending Review Auto-Generat ed Referral 03/18/2024 1 1 [facility] for referral (narrative)* Diagnostic Procedure Only (Routine) - Closed Specialty Diagnoses / Procedures Referred By Contac t Referred To Contact XR IMAGING Diagnoses Lytic bone lesion of femur Procedures XR HIP GENERAL 3V PELV/AP/LAT RIGHT RADEX HIP UNILATERAL WITH PELVIS 2-3 VIEWS Roni Dumas MD [address] [place] [address] [place] [address] [place] [address] Referral ID Status Reason Start Date Expiration Date V isits Requested Visits Authorized [id number] Closed Auto-Generate d Referral 02/17/2023 03/18/2024 1 1 [facility] for referral (narrative)* Diagnostic Procedure Only (Routine) - Closed Specialty Diagnoses / Procedures Referred By Contac t Referred To Contact XR IMAGING Diagnoses Lytic bone lesion of femur Procedures XR HIP GENERAL 3V PELV/AP/LAT RIGHT RADEX HIP UNILATERAL WITH PELVIS 2-3 VIEWS Rosas Mckinney MD [address] [place] [address] [place] [address] Referral ID Status Reason Start Date Expiration Date V isits Requested Visits Authorized [id number] Closed Auto-Generate d Referral 08/26/2022 03/28/2023 1 1 [facility])* Diagnostic Procedure Only (Routine) - Closed Specialty Diagnoses / Procedures Referred By Contac t Referred To Contact XR IMAGING Diagnoses Lytic bone lesion of femur Procedures XR HIP GENERAL 3V PELV/AP/LAT RIGHT RADEX HIP UNILATERAL WITH PELVIS 2-3 VIEWS Roni Dumas MD [address] [address] [place] [address] Referral ID Status Reason Start Date Expiration Date V isits Requested Visits Authorized [id number] Closed Auto-Generate d Referral 02/18/2022 03/20/2023 1 1 [facility] Reason for Referral Specialty Diagnoses / Procedures Referred By Contac t Referred To Contact [facility] Diagnoses Acute bilateral low back pain with bilateral sciatica Procedures CONSULT TO PHYSICAL THERAPY PHYSICAL THERAPY EVALUATION HIGH COMPLEX 45 MINS Macy Jones, GRIEVANCE COORDINATOR.PSYCHOLOGY CLINICIAN [address] [address] [facility] [place] [address] [id number] Referral ID Status Reason Start Date Expiration Date Visits Requested Visits Authorized [id number] Pending Review Auto-Generat ed Referral 10/04/2021 10/04/2022 1 1 Specialty Diagnoses / Procedures Referred By Contac t Referred To Contact MR IMAGING Diagnoses Greater trochanteric bursitis of right hip Chronic pain of right hip Pain of right hip Bone lesion Procedures MRI HIP WO IVCON RIGHT MRI ANY JT LOWER EXTREM W/O CONTRAST MATRL Tiana Cronin PA-C [address] [place] [address] [place] [address] Referral ID Status Reason Start Date Expiration Date Visits Requested Visits Authorized [id number] Authorized Auto-Generat ed Referral 02/25/2023 03/26/2024 1 [...] or prosecute any alcohol or drug abuse patient.[facility] RehabilitationIn the event this information is protected by the Federal Confidentiality of Alcohol and Drug Abuse Patient Records regulations: The Federal rules restrict any use of the information to criminally investigate or prosecute any alcohol or drug abuse patient.[facility] RehabilitationIn the event this information is protected by the Federal Confidentiality of Alcohol and Drug Abuse Patient Records regulations: The Federal rules restrict any use of the information to criminally investigate or prosecute any alcohol or drug abuse patient.[facility] RehabilitationIn the event this information is protected by the Federal Confidentiality of Alcohol and Drug Abuse Patient Records regulations: The Federal rules restrict any use of the information to criminally investigate or prosecute any alcohol or drug abuse patient.[facility] RehabilitationIn the event this information is protected by the Federal Confidentiality of Alcohol and Drug Abuse Patient Records regulations: The Federal rules restrict any use of the information to criminally investigate or prosecute any alcohol or drug abuse patient.[facility] RehabilitationIn the event this information is protected by the Federal Confidentiality of Alcohol and Drug Abuse Patient Records regulations: The Federal rules restrict any use of the information to criminally investigate or prosecute any alcohol or drug abuse patient.[facility] RehabilitationIn the event this information is protected by the Federal Confidentiality of Alcohol and Drug Abuse Patient Records regulations: The Federal rules restrict any use of the information to criminally investigate or prosecute any alcohol or drug abuse patient.[facility] RehabilitationIn the event this information is protected by the Federal Confidentiality of Alcohol and Drug Abuse Patient Records regulations: The Federal rules restrict any use of the information to criminally investigate or prosecute any alcohol or drug abuse patient.[facility] RehabilitationIn the event this information is protected by the Federal Confidentiality of Alcohol and Drug Abuse Patient Records regulations: The Federal rules restrict any use of the information to criminally investigate or prosecute any alcohol or drug abuse patient.[facility] RehabilitationIn the event this information is protected by the Federal Confidentiality of Alcohol and Drug Abuse Patient Records regulations: The Federal rules restrict any use of the information to criminally investigate or prosecute any alcohol or drug abuse patient.[facility] RehabilitationIn the event this information is protected by the Federal Confidentiality of Alcohol and Drug Abuse Patient Records regulations: The Federal rules restrict any use of the information to criminally investigate or prosecute any alcohol or drug abuse patient.[facility] RehabilitationIn the event this information is protected by the Federal Confidentiality of Alcohol and Drug Abuse Patient Records regulations: The Federal rules restrict any use of the information to criminally investigate or prosecute any alcohol or drug abuse patient.[facility] RehabilitationIn the event this information is protected by the Federal Confidentiality of Alcohol and Drug Abuse Patient Records regulations: The Federal rules restrict any use of the information to criminally investigate or prosecute any alcohol or drug abuse patient.[facility] Patient Care team informatio n (unrecognized section and content) Grid Maker Relationship Specialty Start Date End Date Anupama Brown DO [address] [place] [address] PCP - General Family Medicine 07/25/22 Emile Mesa MD [address] [address] Gastroenterology 07/25/22 Guillaume Vasquez DO [address] [facility] [place] [address] MARKETING COMMUNITY LIAISON 07/25/22 Grid Maker Relationship Specialty Start Date End Date Anupama Brown DO [address] [place] [address] PCP - General Family Medicine 07/25/22 Emile Mesa MD [address] [place] [address] Gastroenterology 07/25/22 Guillaume Vasquez DO [address] [place] [address] [place] [address] MARKETING COMMUNITY LIAISON 07/25/22 Grid Maker Relationship Specialty Start Date End Date Anupama Brown DO [address] [place] [address] PCP - General Family Medicine 07/25/22 Emile Mesa MD [address] [place] [address] Gastroenterology 07/25/22 Guillaume Vasquez, DO [address] [place] [place] [address] MARKETING COMMUNITY LIAISON 07/25/22 Grid Maker Relationship Specialty Start Date End Date Anupama Brown, DO [address] [place] [address] PCP - General Family Medicine 07/25/22 Emile Mesa MD [address] [place] [address], [place] [address] Gastroenterology 07/25/22 Guillaume Vasquez, DO [address] [place] [address] MARKETING COMMUNITY LIAISON 07/25/22 Grid Maker Relationship Specialty Start Date End Date Chelsea Kraus, DO [address] [facility] [address] [place] [address] PCP - General Family Medicine 07/02/19 Grid Maker Relationship Specialty Start Date End Date Anupama Brown MD [address] [place] [phone] PCP - General Family Medicine 03/04/23 Grid Maker Relationship Specialty Start Date End Date Anupama Brown MD [address] [place] [address] PCP - General Family Medicine 03/04/23 Grid Maker Relationship Specialty Start Date End Date Anupama Brown, DO [address] [place] [address] PCP - General Family Medicine 07/25/22 Emile Mesa MD [address] [place] [address] Gastroenterology 07/25/22 Guillaume Vasquez DO [facility] [place] [address] E/M Engineer 07/25/22 Grid Maker Relationship Specialty Start Date End Date Anupama Brown DO [address] [place] [address] PCP - General [facility] 07/25/22 Emile Mesa MD [address] [place] [address] Gastroenterology 07/25/22 Guillaume Vasquez DO [facility] [place] [address] E/M Engineer 07/25/22 Grid Maker Relationship Specialty Start Date End Date Anupama Brown MD [address] [place] [phone] PCP - General Family Medicine 03/04/23 Grid Maker Relationship Specialty Start Date End Date Anupama Brown MD [address] [place] [phone] PCP - General Family Medicine 03/04/23 Reason for Visit (unrecogniz ed section and content) Reason Comments New Pain Tumor/Mass Specialty Diagnoses / Procedures Referred By Contac t Referred To Contact Orthopedics Diagnoses Lytic bone lesion of femur Procedures CONSULT TO ORTHOPAEDICS OFFICE/OUTPATIENT NEW HIGH MDM 60-74 MINUTES Roni Dumas MD [address] [place] [address] [place] [address] Referral ID Status Reason Start Date Expiration Date V isits Requested Visits Authorized [id number] Closed PCP Requested Referral 02/18/2022 02/18/2023 1 1 Reason Comments New Pain Reason Comments Radio Gen RMP Specialty Diagnoses / Procedures Referred By Contac t Referred To Contact XR IMAGING Diagnoses Lytic bone lesion of femur Procedures XR HIP GENERAL 3V PELV/AP/LAT RIGHT RADEX HIP UNILATERAL WITH PELVIS 2-3 VIEWS Roni Dumas MD [address] [place] [address] [place] [address] [place] [address] Referral ID Status Reason Start Date Expiration Date V isits Requested Visits Authorized [id number] Closed Auto-Generate d Referral 02/17/2023 03/18/2024 1 1 Specialty Diagnoses / Procedures Referred By Contac t Referred To Contact XR IMAGING Diagnoses Lytic bone lesion of femur Procedures XR HIP GENERAL 3V PELV/AP/LAT RIGHT RADEX HIP UNILATERAL WITH PELVIS 2-3 VIEWS Rosas Mckinney MD [address] [place] [address] [place] [address] Referral ID Status Reason Start Date Expiration Date V isits Requested Visits Authorized [id number] Closed Auto-Generate d Referral 08/26/2022 03/28/2023 1 1 Referral ID Status Reason Start Date Expiration Date V isits Requested Visits Authorized [id number] Closed Auto-Generate d Referral 02/18/2022 03/20/2023 1 1 Reason Comments Routine Visit INFORMATION SOURCE (unrecogn ized section and content) DATE CREATED AUTHOR 05/08/2022 [facility] DATE CREATED AUTHOR AUTHOR'S ORGANIZ ATION 05/26/2022 [facility] DATE CREATED AUTHOR AUTHOR'S ORGANIZ ATION 05/04/2023 [facility] DATE CREATED AUTHOR AUTHOR'S ORGANIZ ATION 06/06/2023 [facility] DATE CREATED AUTHOR AUTHOR'S ORGANIZ ATION 10/17/2023 [facility] DATE CREATED AUTHOR AUTHOR'S ORGANIZ ATION 01/28/2024 [facility] DATE CREATED AUTHOR AUTHOR'S ORGANIZ ATION 2024 [facility] FOR RECORDS PERTAINING TO PATIENTS WHO ARE [...] BE BASED ON THE PRIMARY CLINICAL RECORDS. [facility] [employer] provides no warranty or guarantee of the accuracy or [phone] information in [phone] [id number]
== END 2024-02-10 19:30 | disposition home or self-care (01) ==
LOC: LAB 19:29
PROVIDERS: Visit Provider Obstetrics & Gynecology
DX: Z34.93 Encounter for supervision of normal pregnancy, unspecified, third trimester (principal); Z3A.35 35 weeks gestation of pregnancy
CPT/HCPCS: 87081; 87150

== ENCOUNTER 2024-02-11 06:59 | Outpatient (OUT) | payer OTHER, SELFPAY ==
--- OUTSIDE RECORDS SUMMARY | 2024-02-11 07:02 | XMS_ITS | CCD ---
Author Organization [facility] Care Team Providers Care Group President Name Role Phone Unavailable Primary Care Provider UnavailCHELSEA Murrieta Primary Care Physician Janice De La Rosa Unavailable Unavailable Unavailable Primary Care Provider UnavailPRAVIN Mclean Admitting Unavailable PRAVIN HAGER Attending Unavailable PEDRO, DR OLIVEIRA Primary Care Unavailable PRAVIN HAGER Consulting Unavailable PEDRO, DR OLIVEIRA Admitting Unavailable PEDRO, DR OLIVEIRA Attending Unavailable MISC, DR GABRIEL Primary Care Unavailable PEDRO, DR OLIVEIRA Consulting Unavailable ZIEBER, DR JENNIFER Escudero Consulting Unavailable PEDRO, DR OLIVEIRA Admitting Unavailable PEDRO, DR OLIVEIRA Attending Unavailable PEDRO, DR OLIVEIRA Primary Care Unavailable JIM FALLS, DR EMELIA Luna Consulting Unavailable PEDRO, DR [...] Unavailable EFRA, CHELSEA A Primary Care Unavailable Anupama Brown DO Primary Care Provider Moshe PALOMINO, Imkatlyn Unavailable Pedro DO, Guillaume R Unavailable Unavailable Primary Care Provider Unavailabl e PEDOR, GUILLAUME Attending Unavailable PEDRO, GUILLAUME Attending Unavailable PEDRO, GUILLAUME Attending Unavailable KIN, FRANNY Attending Unavailable PEDRO, GUILLAUME Attending Unavailable KIN, FRANNY Attending Unavailable PEDRO, GUILLAUME Attending Unavailable PEDRO, GUILLAUME Attending Unavailable PEDRO, GUILLAUME Attending Unavailable KIN, FRANNY Attending Unavailable [facility] KEVIN, [facility] Primary Care Unavailabl e ABHYANKAR, RONI Referring Unavailable ROSAS MCKINNEY Attending Unavailable KEVIN, [facility] Primary Care Unavailabl e ABHYANKAR, RONI Referring Unavailable KEVIN, [facility] Care Unavailabl e KEVIN, [facility] Care Unavailabl e KEVIN, [facility] Care Unavailabl e PEDRO, GUILLAUME R Referring Unavailable KEVIN, [facility] Care Unavailabl e KIN, FRANNY L Referring Unavailable KEVIN, [facility] Care Unavailabl e PEDRO, GUILLAUME R Referring Unavailable KEVIN, [facility] Primary Care Unavailabl e KEVIN, [facility] Care Unavailabl e PEDRO, GUILLAUME R Referring Unavailable KEVIN, [facility] Unavailabl e KEVIN, [facility] Primary Care Unavailabl e ASIF SCHAEFER Referring Unavailable Medications Current Medications Medication Drug Class(es) Dates Sig (Normalized) Sig (Original) amoxicillin 500 mg oral capsule (1 source) Penicillin-class Antibacterial Start: 05-26-2022 End: 06-05-2022 take 1 capsule by mouth every twelve hours amoxicillin 500 mg Cap 500 mg = 1 cap(s), Oral, q12hr, X 10 day(s), # 20 cap(s), Refills(s) 0, Pharmacy: [facility], 172, cm, 05/26/22 9:34:00 EST, Height/Length Dosing, 83.6, kg, 05/26/22 9:34:00 EST, Weight Dosing Start Date: 05/26/22 Stop Date: 06/05/22 Status: Ordered aspirin 81 mg delayed release oral tablet (4 sources) Platelet Aggregation Inhibitor, Nonsteroidal Anti-inflammatory Drug [...] Active docusate sodium 100 mg oral capsule (3 sources) Start: 01-27-20 End: 02-26-20 24 take 1 capsule by mouth twice daily as needed for constipation docusate sodium (Colace) 100 MG capsule Indications: Constipation, unspecified constipation type Take 1 capsule (100 mg) by mouth 2 (two) times a day as needed for constipation 30 capsule 5 01/27/2024 02/26/2024 Active labetalol hydrochloride 100 mg oral tablet (4 sources) beta-Adrenergic Anais Start: 07-24-19 24 End: 07-24-19 25 take 1 tablet by [...] medications magnesium oxide 400 mg oral tablet (3 sources) Start: End: take 1 tablet by [...] on above: Take 1 capsule by mo [facility] once daily. Wait 20-30 minutes before eating or taking other medications. Take 1 capsule by mo [facility] once daily in the morning, wait 20-30 minutes before eating or taking other medications Take 1 capsule by mo [facility] once daily. 20-30 minutes before eating or taking other medications Take 1 tablet by [facility] once daily in the morning, 20-30 minutes before eating or taking other medications Take 1 capsule by mo [facility] twice daily. PNV no.95/ferrous fum/folic ac ( ORAL) (8 sources) PNV no.95/ferrou s fum/folic ac ( ORAL) Take by mouth. Active PNV no.95/ferrou s fum/folic ac ( ORAL) Take by mouth. 0 Active Comment on above: Take by mouth. polysaccharide iron complex 391 mg oral capsule (3 sources) Start: 4 End: 5 take 1 [...] Status: Ordered MV-Min-Fe Fum-FA-DHA ( 1 PO) (7 sources) MV-Min- Fe Fum-FA-DHA ( 1 PO) [...] on above: Take 1 capsule by mo [facility] once daily. citalopram 20 mg oral [...] Comment on above: Take 1 capsule by [facility] twice daily. escitalopram 20 mg [...] Comment on above: Take 1 tablet by [facility] once daily. fluconazole 150 mg oral tablet (8 sources) Azole Antifungal Start: 02-07-20 End: 02-26-20 take 1 tablet by mouth once fluconazole (DIFLUCAN) 150 mg tablet 1 (one) tablet by mouth one time dose 1 tablet 1 02/06/2022 02/25/2023 Discontinued Comment on above: 1 (one) tablet by [facility] one time dose hydrOXYzine hydrochloride [...] Comment on above: Take 1 tablet by [facility] three times daily as needed. 10 [...] 02/25/2023 Discontinued Start: 08-23-2020 End: 02-25-2023 medroxyPROGESTERone (DEPO-NV OVERA) 150 mg/mL injection Indications: Excessive or [...] first trimester] Onset: 09-16-2023 Chronic Menstrual disorders (9 sources) Irregular periods; Translations: [Irregular menstruation, unspecified] [...] Translations: [Hypothyroidism, unspecified] Chronic Unclassified (1 source) [facility] video visit Onset: 10-16-2023 Past or [...] Free T4 [Mass/Vol] 1.1 ng/dL Normal 0.9-1.7 [facility] Comment on above: Order Comment: Speci men Type: BLOOD SPECIMEN Ordering Facility: [facility] [employer] [place] Address: [facility] [address] [place] [address] Performed By: #### 3 016-3, 3024-7 #### [facility] CLIA [id number] [address] [place] [address] [place] [facility] 02-05-2024 TSH Qn 1.340 m[IU]/L Normal 0.270-4.200 [facility] Comment on above: Order Comment: Speci men Type: BLOOD SPECIMEN Ordering Facility: [facility] [employer] [place] Address: [facility] [address] [place] [address] Result Comment: If t he patient is [...] Performed By: #### 3 016-3, 3024-7 #### [facility] CLIA [id number] [address] [place] [address] [place] Urinalysis macro (dipstick) panel (U)on 01-27-2024 Bilirubin, UA Negative Negative - 4(70) +++ mg/dL [facility] Blood, UA Negative Negative - 50 Pepito/mcL [facility] Clarity, UA Clear [facility] Color, UA Yellow [facility] Glucose, UA Negative Negative - 2000(110) ++++ mg/dL [facility] Interpretation and review of laboratory results Normal [facility] Ketones, UA Negative Negative - 160(16) ++++ mg/dL [facility] Leukocytes, UA Negative Negative - 500+++ Ilia/mcL [facility] Nitrite, UA Negative Negative - Positive [facility] pH, UA 5.5 5 - 9 [facility] Protein, UA Negative Negative - 2000(20) ++++ mg/dL [facility] Spec Grav, UA 1.020 1 - 1.03 [facility] Urobilinogen, UA 0.2 0.2 - 12 mg/dL [facility] CBC W Auto Differential pane l (Bld)on 01-19-2024 Basophils (Bld) [#/Vol] 10*3/uL Normal <0.11 [facility] Comment on above: Order Comment: Speci men Type: BLOOD SPECIMEN Ordering Facility: External Submitter Address: , , Performed By: #### 5 7021-8 #### [facility] CLIA [id number] [address] [place] [address] 91113 Basophils/100 WBC (Bld) 0.2 % Normal [facility] Comment on above: Order Comment: Speci men Type: BLOOD SPECIMEN Ordering Facility: External Submitter Address: , , Performed By: #### 5 7021-8 #### [facility] CLIA [id number] [address] [place] [address] 97641 Differential cell count method Nom (Bld) Auto Normal [facility] Comment on above: Order Comment: Speci men Type: BLOOD SPECIMEN Ordering Facility: External Submitter Address: , , Performed By: #### 5 7021-8 #### [facility] CLIA [id number] [address] [place] [address] 08201 Eosinophils (Bld) [#/Vol] 0.06 10*3/uL Normal <0.46 [facility] Comment on above: Order Comment: Speci men Type: BLOOD SPECIMEN Ordering Facility: External Submitter Address: , , Performed By: #### 5 7021-8 #### [facility] CLIA [id number] [address] [place] [address] 91913 Eosinophils/100 WBC (Bld) 0.6 % Normal [facility] Comment on above: Order Comment: Speci men Type: BLOOD SPECIMEN Ordering Facility: External Submitter Address: , , Performed By: #### 5 7021-8 #### [facility] CLIA [id number] [address] [place] [address] 39004 Erythrocyte distribution width (RBC) [Ratio] 13.3 % Normal 11.5-15.0 [facility] Comment on above: Order Comment: Speci men Type: BLOOD SPECIMEN Ordering Facility: External Submitter Address: , , Performed By: #### 5 7021-8 #### [facility] CLIA [id number] [address] [place] [address] 69398 Hematocrit (Bld) [Volume fraction] 32.8 % Low 36.0-46.0 [facility] Comment on above: Order Comment: Speci men Type: BLOOD SPECIMEN Ordering Facility: External Submitter Address: , , Performed By: #### 5 7021-8 #### [facility] CLIA [id number] [address] [place] [address] 82528 Hemoglobin (Bld) [Mass/Vol] 10.7 g/dL Low 11.5-15.5 [facility] Comment on above: Order Comment: Speci men Type: BLOOD SPECIMEN Ordering Facility: External Submitter Address: , , Performed By: #### 5 7021-8 #### [facility] CLIA [id number] [address] [place] [address] 29280 Immature granulocytes (Bld) [#/Vol] 0.05 10*3/uL Normal <0.10 [facility] Comment on above: Order Comment: Speci men Type: BLOOD SPECIMEN Ordering Facility: External Submitter Address: , , Performed By: #### 5 7021-8 #### [facility] CLIA [id number] [address] [place] [address] 08053 Immature granulocytes/100 WBC (Bld) 0.5 % Normal [facility] Comment on above: Order Comment: Speci men Type: BLOOD SPECIMEN Ordering Facility: External Submitter Address: , , Performed By: #### 5 7021-8 #### [facility] CLIA [id number] [address] [place] [address] 14795 Lymphocytes (Bld) [#/Vol] 1.55 10*3/uL Normal 1.00-4.00 [facility] Comment on above: Order Comment: Speci men Type: BLOOD SPECIMEN Ordering Facility: External Submitter Address: , , Performed By: #### 5 7021-8 #### [facility] CLIA [id number] [address] [place] [address] 07696 Lymphocytes/100 WBC (Bld) 15.1 % Normal [facility] Comment on above: Order Comment: Speci men Type: BLOOD SPECIMEN Ordering Facility: External Submitter Address: , , Performed By: #### 5 7021-8 #### [facility] CLIA [id number] [address] [place] [address] 24015 MCH (RBC) [Entitic mass] 27.8 pg Normal 26.0-34.0 [facility] Comment on above: Order Comment: Speci men Type: BLOOD SPECIMEN Ordering Facility: External Submitter Address: , , Performed By: #### 5 7021-8 #### [facility] CLIA [id number] [address] [place] [address] 31569 MCHC (RBC) [Mass/Vol] 32.6 g/dL Normal 30.5-36.0 [facility] Comment on above: Order Comment: Speci men Type: BLOOD SPECIMEN Ordering Facility: External Submitter Address: , , Performed By: #### 5 7021-8 #### [facility] CLIA [id number] [address] [place] [address] 97615 MCV (RBC) [Entitic vol] 85.2 fL Normal 80.0-100.0 [facility] Comment on above: Order Comment: Speci men Type: BLOOD SPECIMEN Ordering Facility: External Submitter Address: , , Performed By: #### 5 7021-8 #### [facility] CLIA [id number] [address] [place] [address] 61360 Monocytes (Bld) [#/Vol] 0.77 10*3/uL Normal <0.87 [facility] Comment on above: Order Comment: Speci men Type: BLOOD SPECIMEN Ordering Facility: External Submitter Address: , , Performed By: #### 5 7021-8 #### [facility] CLIA [id number] [address] [place] [address] 54517 Monocytes/100 WBC (Bld) 7.5 % Normal [facility] Comment on above: Order Comment: Speci men Type: BLOOD SPECIMEN Ordering Facility: External Submitter Address: , , Performed By: #### 5 7021-8 #### [facility] CLIA [id number] [address] [place] [address] 76199 Neutrophils (Bld) [#/Vol] 7.81 10*3/uL High 1.45-7.50 [facility] Comment on above: Order Comment: Speci men Type: BLOOD SPECIMEN Ordering Facility: External Submitter Address: , , Performed By: #### 5 7021-8 #### [facility] CLIA [id number] [address] [place] [address] 98533 Neutrophils/100 WBC (Bld) 76.1 % Normal [facility] Comment on above: Order Comment: Speci men Type: BLOOD SPECIMEN Ordering Facility: External Submitter Address: , , Performed By: #### 5 7021-8 #### [facility] CLIA [id number] [address] [place] [address] 49753 Nucleated RBC (Bld) [#/Vol] 10*3/uL Normal <0.01 [facility] Comment on above: Order Comment: Speci men Type: BLOOD SPECIMEN Ordering Facility: External Submitter Address: , , Performed By: #### 5 7021-8 #### [facility] CLIA [id number] [address] [place] [address] Nucleated RBC/100 WBC (Bld) [Ratio] 0.0 /100 WBC Normal [facility] Comment on above: Order Comment: Speci men Type: BLOOD SPECIMEN Ordering Facility: External Submitter Address: , , Performed By: #### 5 7021-8 #### [facility] CLIA [id number] [address] [place] [address] 09021 Platelet mean volume (Bld) [Entitic vol] 11.3 fL Normal 9.0-12.7 [facility] Comment on above: Order Comment: Speci men Type: BLOOD SPECIMEN Ordering Facility: External Submitter Address: , , Performed By: #### 5 7021-8 #### [facility] CLIA [id number] [address] [place] [address] 07924 Platelets (Bld) [#/Vol] 172 10*3/uL Normal 150-400 [facility] Comment on above: Order Comment: Speci men Type: BLOOD SPECIMEN Ordering Facility: External Submitter Address: , , Performed By: #### 5 7021-8 #### [facility] CLIA [id number] [address] [place] [address] 63220 RBC (Bld) [#/Vol] 3.85 10*6/uL Low 3.90-5.20 [facility] Comment on above: Order Comment: Speci men Type: BLOOD SPECIMEN Ordering Facility: External Submitter Address: , , Performed By: #### 5 7021-8 #### [facility] CLIA [id number] [address] [place] [address] 76808 WBC (Bld) [#/Vol] 10.26 10*3/uL Normal 3.70-11.00 [facility] Comment on above: Order Comment: Speci men Type: BLOOD SPECIMEN Ordering Facility: External Submitter Address: , , Performed By: #### 5 7021-8 #### [facility] CLIA [id number] [address] [place] [address] T4 Free SerPl-mCncon 024 Free T4 [Mass/Vol] 0.9 ng/dL Normal 0.9-1.7 [facility] Comment on above: Order Comment: Speci men Type: BLOOD SPECIMEN Ordering Facility: [facility] [employer] [place] Address: [facility] [address] [place] [address] Performed By: #### G LTGST #### [facility] CLIA [id number] [address] [place] [address] [place] TSH SerPl-aCncon 01-05-2024 TSH Qn 1.220 m[IU]/L Normal 0.270-4.200 [facility] Comment on above: Order Comment: Speci [...] 2017:27:3:315-389. Performed By: #### 5 7021-8 #### [facility] CLIA [id number] [address] [place] [address] T4 Free SerPl-mCncon 024 Free T4 [Mass/Vol] 1.1 ng/dL Normal 0.9-1.7 [facility] Comment on above: Order Comment: Speci men Type: BLOOD SPECIMEN Ordering Facility: [facility] [employer] [place] Address: [facility] [address] [place] [address] Performed By: #### G LTGST #### [facility] CLIA [id number] [address] [place] [address] [place] TSH SerPl-aCncon 12-08-2023 TSH Qn 0.607 m[IU]/L Normal 0.270-4.200 [facility] Comment on above: Order Comment: Speci men Type: BLOOD SPECIMEN Ordering Facility: [facility] [employer]CHN[employer] [place] Address: [facility] [address] [place] [address] Result Comment: If t he patient is [...] 2017:27:3:315-389. Performed By: #### G LTGST #### [facility] CLIA [id number] [address] [place] [address] [place] CBC W Auto Differential pane l (Bld)on 11-20-2023 Basophils (Bld) [#/Vol] 0.04 10*3/uL Normal <0.11 [facility] Comment on above: Order Comment: Speci men Type: BLOOD SPECIMEN Ordering Facility: [facility] [employer]CHN[employer] [place] Address: [facility] [place] [place] [place] [address] Performed By: #### 5 7021-8 #### [facility] CLIA [id number] [address] [place] [address] 22029 Basophils/100 WBC (Bld) 0.6 % Normal [facility] Comment on above: Order Comment: Speci men Type: BLOOD SPECIMEN Ordering Facility: [facility] [employer]CHN[employer] [place] Address: [facility] [place] [place] [place] [address] Performed By: #### 5 7021-8 #### [facility] CLIA [id number] [address] [place] [address] 10297 Differential cell count method Nom (Bld) Auto Normal [facility] Comment on above: Order Comment: Speci men Type: BLOOD SPECIMEN Ordering Facility: [facility] Address: [facility] [address] [address] Performed By: #### 5 7021-8 #### [facility] CLIA [id number] [address] [place] [address] 72167 Eosinophils (Bld) [#/Vol] 0.05 10*3/uL Normal <0.46 [facility] Comment on above: Order Comment: Speci men Type: BLOOD SPECIMEN Ordering Facility: [facility] [employer] [place] Address: [facility] [place] [address] Performed By: #### 5 7021-8 #### [facility] CLIA [id number] [address] [place] [address] 82322 Eosinophils/100 WBC (Bld) 0.7 % Normal [facility] Comment on above: Order Comment: Speci men Type: BLOOD SPECIMEN [facility] Address: [facility] [address] [place] [address] Performed By: #### 5 7021-8 #### [facility] CLIA [id number] [address] [place] [address] 56147 Erythrocyte distribution width (RBC) [Ratio] 12.9 % Normal 11.5-15.0 [facility] Comment on above: Order Comment: Speci men Type: BLOOD SPECIMEN Ordering Facility: [facility] [employer]CHNIC[employer] [place] Address: [facility] [address] [place] [address] Performed By: #### 5 7021-8 #### [facility] CLIA [id number] [address] [place] [address] 86170 Hematocrit (Bld) [Volume fraction] 35.0 % Low 36.0-46.0 [facility] Comment on above: Order Comment: Speci men Type: BLOOD SPECIMEN Ordering Facility: [facility] [employer] [place] Address: [address] [place] [address] Performed By: #### 5 7021-8 #### [facility] CLIA [id number] [address] [place] [address] 22507 Hemoglobin (Bld) [Mass/Vol] 11.4 g/dL Low 11.5-15.5 [facility] Comment on above: Order Comment: Speci men Type: BLOOD SPECIMEN Ordering Facility: [facility] [employer] [place] Address: [address] [place] [address] Performed By: #### 5 7021-8 #### [facility] CLIA [id number] [address] [place] [address] 22852 Immature granulocytes (Bld) [#/Vol] 10*3/uL Normal <0.10 [facility] Comment on above: Order Comment: Speci men Type: BLOOD SPECIMEN Ordering Facility: [facility] [employer] [place] Address: [address] [place] [address] Performed By: #### 5 7021-8 #### [facility] CLIA [id number] [address] [place] [address] 27746 Immature granulocytes/100 WBC (Bld) 0.3 % Normal [facility] Comment on above: Order Comment: Speci men Type: BLOOD SPECIMEN Ordering Facility: [facility] [employer] [place] Address: [address] [place] [address] Performed By: #### 5 7021-8 #### [facility] CLIA [id number] [address] [place] [address] 24716 Lymphocytes (Bld) [#/Vol] 1.25 10*3/uL Normal 1.00-4.00 [facility] Comment on above: Order Comment: Speci men Type: BLOOD SPECIMEN Ordering Facility: [facility] [employer] [place] Address: [address] [place] [address] Performed By: #### 5 7021-8 #### [facility] CLIA [id number] [address] [place] [address] Lymphocytes/100 WBC (Bld) 18.3 % Normal [facility] Comment on above: Order Comment: Speci men Type: BLOOD SPECIMEN Ordering Facility: [facility] Address: [facility] [place] [address] Performed By: #### 5 7021-8 #### [facility] CLIA [id number] [address] [place] [address] 10649 MCH (RBC) [Entitic mass] 29.9 pg Normal 26.0-34.0 [facility] Comment on above: Order Comment: Speci men Type: BLOOD SPECIMEN Ordering Facility: [facility] [employer] [place] Address: [facility] [address] [place] [address] Performed By: #### 5 7021-8 #### [facility] CLIA [id number] [address] [place] [address] 13751 MCHC (RBC) [Mass/Vol] 32.6 g/dL Normal 30.5-36.0 [facility] Comment on above: Order Comment: Speci men Type: BLOOD SPECIMEN Ordering Facility: [facility] Address: [facility] [address] [place] [address] Performed By: #### 5 7021-8 #### [facility] CLIA [id number] [address] [place] [address] 96400 MCV (RBC) [Entitic vol] 91.9 fL Normal 80.0-100.0 [facility] Comment on above: Order Comment: Speci men Type: BLOOD SPECIMEN [facility] Address: [facility] [address] [place] [address] Performed By: #### 5 7021-8 #### [facility] CLIA [id number] [address] [place] [address] 03450 Monocytes (Bld) [#/Vol] 0.52 10*3/uL Normal <0.87 [facility] Comment on above: Order Comment: Speci men Type: BLOOD SPECIMEN Ordering Facility: [facility] [employer] [place] Address: [address] [address] Performed By: #### 5 7021-8 #### [facility] CLIA [id number] [address] [place] [address] Monocytes/100 WBC (Bld) 7.6 % Normal [facility] Comment on above: Order Comment: Speci men Type: BLOOD SPECIMEN Ordering Facility: [facility] [employer] [place] Address: [address] [place] [address] Performed By: #### 5 7021-8 #### [facility] CLIA [id number] [address] [place] [address] Neutrophils (Bld) [#/Vol] 4.94 10*3/uL Normal 1.45-7.50 [facility] Comment on above: Order Comment: Speci men Type: BLOOD SPECIMEN Ordering Facility: [facility] [employer] [place] Address: [address] [place] [address] Performed By: #### 5 7021-8 #### [facility] CLIA [id number] [address] [place] [address]229 Neutrophils/100 WBC (Bld) 72.5 % Normal [facility] Comment on above: Order Comment: Speci men Type: BLOOD SPECIMEN Ordering Facility: [facility] Address: [address] [place] [address] Performed By: #### 5 7021-8 #### [facility] CLIA [id number] [address] [place] [address] 02386 Nucleated RBC (Bld) [#/Vol] 10*3/uL Normal <0.01 [facility] Comment on above: Order Comment: Speci men Type: BLOOD SPECIMEN [facility] [place] Address: [address] [place] [address] Performed By: #### 5 7021-8 #### [facility] CLIA [id number] [address] [place] [address] Nucleated RBC/100 WBC (Bld) [Ratio] 0.0 /100 WBC Normal [facility] Comment on above: Order Comment: Speci men Type: BLOOD SPECIMEN [facility] Address: [facility] [place] [place] [address] Performed By: #### 5 7021-8 #### [facility] CLIA [id number] [address] [place] [address] Platelet mean volume (Bld) [Entitic vol] 11.4 fL Normal 9.0-12.7 [facility] Comment on above: Order Comment: Speci men Type: BLOOD SPECIMEN Ordering Facility: [facility] [employer] [place] Address: [facility] [place] [place] [place] [address] Performed By: #### 5 7021-8 #### [facility] CLIA [id number] [address] [place] [address] 62980 Platelets (Bld) [#/Vol] 167 10*3/uL Normal 150-400 [facility] Comment on above: Order Comment: Speci men Type: BLOOD SPECIMEN Ordering Facility: [facility] Address: [facility] [place] [place] [place] [address] Performed By: #### 5 7021-8 #### [facility] CLIA [id number] [address] [place] [address] 33251 RBC (Bld) [#/Vol] 3.81 10*6/uL Low 3.90-5.20 [facility] Comment on above: Order Comment: Speci men Type: BLOOD SPECIMEN Ordering Facility: [facility] Address: [facility] [place] [place] [address] Performed By: #### 5 7021-8 #### [facility] CLIA [id number] [address] [place] [address] 05601 WBC (Bld) [#/Vol] 6.82 10*3/uL Normal 3.70-11.00 [facility] Comment on above: Order Comment: Speci men Type: BLOOD SPECIMEN Ordering Facility: [facility] OB-[employer] TECHNICIAN [place] Address: [address] [place] [address] Performed By: #### 5 7021-8 #### [facility] CLIA [id number] [address] [place] [address] 19463 GESTATIONAL GLUCOSE SCREEN, 1-HOUR, 50 GRAM, NON-FASTINGon 11-20-2023 Glucose [Mass/Vol] 97 mg/dL Normal 74-134 [facility] Comment on above: Order Comment: Tammy mares Type: BLOOD SPECIMEN Ordering Facility: [facility] [employer]CHNIC[employer] [place] Address: [address] [place] [address] Result Comment: [facility] Congress of Obstetricians and Gynecologists (Alma/Adrián) guidelines state a gestational diabetes mellitus positive screen is made, in women not previously diagnosed with overt diabetes, when the 1 hr plasma glucose level is equal to or above 140 mg/dL. The [facility] Implementation Director and [facility] [place] recommends a 135 mg/dL cutoff. Performed By: #### G LTGST #### [facility] CLIA [id number] [address] [place] [address] [place] T4 Free SerPl-mCncon 024 Free T4 [Mass/Vol] 1.0 ng/dL Normal 0.9-1.7 [facility] Comment on above: Order Comment: Tammy mares Type: BLOOD SPECIMEN Ordering Facility: External [facility] Address: , , Performed By: #### 5 7021-8 #### [facility] CLIA [id number] [address] [place] [address]44 TSH SerPl-aCncon 10-22-2023 TSH Qn 4.510 m[IU]/L High 0.270-4.200 [facility] Comment on above: Order Comment: Tammy [...] 2017:27:3:315-389. Performed By: #### 5 7021-8 #### [facility] CLIA [id number] [address] [place] [address] 33537 CBC W Auto Differential pane l (Bld)on 08-08-2023 Basophils (Bld) [#/Vol] 10*3/uL Normal <0.11 [facility] Comment on above: Order Comment: Speci men Type: BLOOD SPECIMEN Ordering Facility: [facility] Address: , , Performed By: #### 5 7021-8 #### [facility] CLIA [id number] [address] [place] [address] 88743 Basophils/100 WBC (Bld) 0.3 % Normal [facility] Comment on above: Order Comment: Speci men Type: BLOOD SPECIMEN Ordering Facility: [facility] Address: , , Performed By: #### 5 7021-8 #### [facility] CLIA [id number] [address] [place] [address] 13984 Differential cell count method Nom (Bld) Auto Normal [facility] Comment on above: Order Comment: Speci men Type: BLOOD SPECIMEN Ordering Facility: [facility] Address: , , Performed By: #### 5 7021-8 #### [facility] CLIA [id number] [address] [place] [address] 23879 Eosinophils (Bld) [#/Vol] 0.06 10*3/uL Normal <0.46 [facility] Comment on above: Order Comment: Speci men Type: BLOOD SPECIMEN Ordering Facility: [facility] Address: , , Performed By: #### 5 7021-8 #### [facility] CLIA [id number] [address] [place] [address] 37818 Eosinophils/100 WBC (Bld) 0.9 % Normal [facility] Comment on above: Order Comment: Speci men Type: BLOOD SPECIMEN Ordering Facility: [facility] Address: , , Performed By: #### 5 7021-8 #### [facility] CLIA [id number] [address] [place] [address] 97566 Erythrocyte distribution width (RBC) [Ratio] 13.7 % Normal 11.5-15.0 [facility] Comment on above: Order Comment: Speci men Type: BLOOD SPECIMEN Ordering Facility: [facility] Address: , , Performed By: #### 5 7021-8 #### [facility] CLIA [id number] [address] [place] [address] 97814 Hematocrit (Bld) [Volume fraction] 40.1 % Normal 36.0-46.0 [facility] Comment on above: Order Comment: Speci men Type: BLOOD SPECIMEN Ordering Facility: External [facility]mitter Address: , , Performed By: #### 5 7021-8 #### [facility] CLIA [id number] [address] [place] [address] 72359 Hemoglobin (Bld) [Mass/Vol] 13.4 g/dL Normal 11.5-15.5 [facility] Comment on above: Order Comment: Speci men Type: BLOOD SPECIMEN Ordering Facility: [facility] Address: , , Performed By: #### 5 7021-8 #### [facility] CLIA [id number] [address] [place] [address] 97785 Immature granulocytes (Bld) [#/Vol] 10*3/uL Normal <0.10 [facility] Comment on above: Order Comment: Speci men Type: BLOOD SPECIMEN Ordering Facility: [facility] Address: , , Performed By: #### 5 7021-8 #### [facility] CLIA [id number] [address] [place] [address] 23392 Immature granulocytes/100 WBC (Bld) 0.3 % Normal [facility] Comment on above: Order Comment: Speci men Type: BLOOD SPECIMEN Ordering Facility: [facility] Address: , , Performed By: #### 5 7021-8 #### [facility] CLIA [id number] [address] [place] [address] 76944 Lymphocytes (Bld) [#/Vol] 1.67 10*3/uL Normal 1.00-4.00 [facility] Comment on above: Order Comment: Speci men Type: BLOOD SPECIMEN Ordering Facility: [facility] Address: , , Performed By: #### 5 7021-8 #### [facility] CLIA [id number] [address] [place] [address] 82103 Lymphocytes/100 WBC (Bld) 24.9 % Normal [facility] Comment on above: Order Comment: Speci men Type: BLOOD SPECIMEN Ordering Facility: [facility] Address: , , Performed By: #### 5 7021-8 #### [facility] CLIA [id number] [address] [place] [address] 23942 MCH (RBC) [Entitic mass] 31.1 pg Normal 26.0-34.0 [facility] Comment on above: Order Comment: Speci men Type: BLOOD SPECIMEN Ordering Facility: [facility] Address: , , Performed By: #### 5 7021-8 #### [facility] CLIA [id number] [address] [place] [address] 28699 MCHC (RBC) [Mass/Vol] 33.4 g/dL Normal 30.5-36.0 [facility] Comment on above: Order Comment: Speci men Type: BLOOD SPECIMEN Ordering Facility: [facility] Address: , , Performed By: #### 5 7021-8 #### [facility] CLIA [id number] [address] [place] [address] 17791 MCV (RBC) [Entitic vol] 93.0 fL Normal 80.0-100.0 [facility] Comment on above: Order Comment: Speci men Type: BLOOD SPECIMEN Ordering Facility: [facility] Address: , , Performed By: #### 5 7021-8 #### [facility] CLIA [id number] [address] [place] [address] 74687 Monocytes (Bld) [#/Vol] 0.50 10*3/uL Normal <0.87 [facility] Comment on above: Order Comment: Speci men Type: BLOOD SPECIMEN Ordering Facility: [facility] Address: , , Performed By: #### 5 7021-8 #### [facility] CLIA [id number] [address] [place] [address] 71225 Monocytes/100 WBC (Bld) 7.5 % Normal [facility] Comment on above: Order Comment: Speci men Type: BLOOD SPECIMEN Ordering Facility: [facility] Address: , , Performed By: #### 5 7021-8 #### [facility] CLIA [id number] [address] [place] [address] 56788 Neutrophils (Bld) [#/Vol] 4.44 10*3/uL Normal 1.45-7.50 [facility] Comment on above: Order Comment: Speci men Type: BLOOD SPECIMEN Ordering Facility: [facility] Address: , , Performed By: #### 5 7021-8 #### [facility] CLIA [id number] [address] [place] [address] 07377 Neutrophils/100 WBC (Bld) 66.1 % Normal [facility] Comment on above: Order Comment: Speci men Type: BLOOD SPECIMEN Ordering Facility: External [facility]mitter Address: , , Performed By: #### 5 7021-8 #### [facility] CLIA [id number] [address] [place] [address] 16679 Nucleated RBC (Bld) [#/Vol] 10*3/uL Normal <0.01 [facility] Comment on above: Order Comment: Speci men Type: BLOOD SPECIMEN Ordering Facility: [facility] Address: , , Performed By: #### 5 7021-8 #### [facility] CLIA [id number] [address] [place] [address] 35874 Nucleated RBC/100 WBC (Bld) [Ratio] 0.0 /100 WBC Normal [facility] Comment on above: Order Comment: Speci men Type: BLOOD SPECIMEN Ordering Facility: [facility] Address: , , Performed By: #### 5 7021-8 #### [facility] CLIA [id number] [address] [place] [address] 54929 Platelet mean volume (Bld) [Entitic vol] 12.1 fL Normal 9.0-12.7 [facility] Comment on above: Order Comment: Speci men Type: BLOOD SPECIMEN Ordering Facility: [facility] Address: , , Performed By: #### 5 7021-8 #### [facility] IA [id number] [address] [place] [address] 10013 Platelets (Bld) [#/Vol] 148 10*3/uL Low 150-400 [facility] Comment on above: Order Comment: Speci men Type: BLOOD SPECIMEN Ordering Facility: [facility] Address: , , Performed By: #### 5 7021-8 #### [facility] IA [id number] [address] [place] [address] 84000 RBC (Bld) [#/Vol] 4.31 10*6/uL Normal 3.90-5.20 [facility] Comment on above: Order Comment: Speci men Type: BLOOD SPECIMEN Ordering Facility: External Submitter Address: , , Performed By: #### 5 7021-8 #### [facility] IA [id number] [address] [place] [address] 63994 WBC (Bld) [#/Vol] 6.71 10*3/uL Normal 3.70-11.00 [facility] Comment on above: Order Comment: Speci men Type: BLOOD SPECIMEN Ordering Facility: External [facility] Address: , , Performed By: #### 5 7021-8 #### [facility] CLIA [id number] [address] [place] [address] 20521 HBV surface Ag Ser Qlon 04 HBV surface Ag Ql (S) Negative Normal Negative [facility] Comment on above: Order Comment: Speci men Type: BLOOD SPECIMEN Ordering Facility: External [facility] Address: , , Performed By: #### 5 7021-8 #### [facility] CLIA [id number] [address] [place] [address] 97659 HCV Ab Ser Qlon 08-08-2023 HCV Ab Ql (S) Negative Normal Negative [facility] Comment on above: Order Comment: Speci men Type: BLOOD SPECIMEN Ordering Facility: External Submitter Address: , , Result Comment: The result suggests no evidence of active infection with Hepatitis C virus. Should recent infection be suspected, repeat testing may be considered 4-6 weeks after this draw. Performed By: #### 1 6128-1 #### [facility] CLIA [id number] [address] [place] [address] [place] HIV 1+2 Ab IA Qlon HIV 1 and 2 Ab IA.rapid Nom (S/P/Bld) Normal [facility] Comment on above: Order Comment: Speci vishnu Type: BLOOD SPECIMEN Ordering Facility: External [facility]mitter Address: , , Result Comment: Test not indicated. Performed By: #### 5 7021-8 #### [facility] CLIA [id number] [address] [place] [address] 87670 HIV 1+2 Ab+HIV1 p24 Ag IA Ql Non-Reactive Normal Nonreactive [facility] Comment on above: Order Comment: Speci men Type: BLOOD SPECIMEN Ordering Facility: External Submitter Address: , , Performed By: #### 5 7021-8 #### [facility] CLIA [id number] [address] [place] [address] 64632 HIV immunoassay testing algorithm interpretation (S/P/Bld) [Interp] Normal [facility] Comment on above: Order Comment: Specbertha [...] diagnoses. Performed By: #### 5 7021-8 #### [facility] CLIA [id number] [address] [place] [address] HbA1c (Bld)on 08-08-2023 Average glucose Estimated from glycated hemoglobin (Bld) [Mass/Vol] 105 mg/dL Normal [facility] Comment on above: Order Comment: Tammy mares Type: BLOOD SPECIMEN Ordering Facility: External Submitter Address: , , Result Comment: eAG: (Estimated average glucose) is a calculated value from HgbA1c and is chain sales representative of the average blood glucose level in the last 2-3 month period. Performed By: #### 5 5454-3 #### [facility] CLIA [id number] [address] [place] [address] [place] HbA1c (Bld) [Mass fraction] 5.3 % Normal 4.3-5.6 [facility] Comment on above: Order Comment: Tammy [...] 5 5454-3 #### [facility] CLIA [id number] [address] [place] [address] [place] RPR Ser Qlon 08-08-2023 Reagin Ab RPR Ql (S) Non-Reactive Normal Nonreactive [facility] Comment on above: Order Comment: Speci men Type: BLOOD SPECIMEN [facility] Address: [facility] [address] [place] [address] Result Comment: Rapi d plasma reagin (RPR) test detects non-treponemal antibodies. RPR may be reactive in a variety of infectious and non-infectious conditions. Correlation with clinical picture and with treponemal antibody results is required for final interpretation. Performed By: #### G LTGST #### [facility] CLIA [id number] [address] [place] [address] [place] RUBELLA IGG ANTIBODYon 08-07 RUBELLA IGG AB, QUAL Positive Normal Positive [facility] Comment on above: Order Comment: Tammy vishnu Type: BLOOD SPECIMEN [facility] Address: [address] [place], [place] [address] [place] [address] Result Comment: The result suggests recent or past exposure to Rubella virus or history of Rubella vaccination. Positive result may also be seen due to presence of passively-transferred antibodies. Please correlate with patient's history. Performed By: #### G LTGST #### [facility] CLIA [id number] [facility] [place] [address] [place] TYPE + SCREENon 08-08-2023 ABO A Normal [facility] Comment on above: Order Comment: Speci vishnu Type: BLOOD SPECIMEN Ordering Facility: External Submitter Address: , , Performed By: #### T SCR #### [facility] CLIA [id number] [facility] [place] [address] [place] HISTORICAL AB SCR STATUS Negative Normal [facility] Comment on above: Order Comment: Speci men Type: BLOOD SPECIMEN Ordering Facility: External Submitter Address: , , Performed By: #### T SCR #### [facility] CLIA [id number] [address] [place] [address] [place] Rh Nom (Bld) Positive Normal [facility] Comment on above: Order Comment: Speci men Type: BLOOD SPECIMEN Ordering Facility: External Submitter Address: , , Performed By: #### T SCR #### [facility] CLIA [id number] [address] [place] TYPE AND SCREEN EXPIRATION 08/11/2023 23:59 Normal [facility] Comment on above: Order Comment: Speci men Type: BLOOD SPECIMEN Ordering Facility: External Submitter Address: , , Performed By: #### T SCR #### [facility] CLIA [id number] [address] [place] B-HCG SerPl-aCncon 4 HCG.beta subunit Qn m[IU]/mL Normal <5.0 [facility] Comment on above: Order Comment: Speci men Type: BLOOD SPECIMEN Ordering Facility: External Submitter Address: , , Result Comment: Dianne logan Performed By: #### 5 7021-8 #### [facility] CLIA [id number] [address] [place] [address] 28421 [facility] 05-16-2023 CNPN Telephone (HEMASA) JESSEE ALMODOVAR ([id number]) 1990 [facility] Date Time Provider Department 05/16/23 RONI DUMAS During your visit today, we recorded the following information about you: Allergies As of Date: 05/16/2023 (No Known Allergies) Date Reviewed: 04/11/2023 Reviewed by: Macy Jones APRN.RN FLOAT - Fully Assessed Reason for Visit: Lab Orders [1688] Primary Visit Diagnosis:Possible , not confirmed [Z32.00] Order(s):HCG QUANTITATIVE [SQHCGQT] Order #: [id number] FUTURE Prescriptions as of 05/16/2023 - doxycycline [...] Status:Closed by RONI DUMAS on 05/16/23 Normal [facility] TOX SCREEN ROUT URon 024 Amphetamines Confirm (U) [Mass/Vol] Negative Normal Negative [facility] Comment on above: Order Comment: Speci men Type: BLOOD SPECIMEN Ordering Facility: [facility] [place] Address: [facility] [address] [place] [address] Result Comment: Cuto ff threshold at 1000 ng/mL. Performed By: #### G LTGST #### [facility] CLIA [id number] [address] [place] [address] [place] BARBITURATES, URINE Negative Normal Negative [facility] Comment on above: Order Comment: Speci men Type: BLOOD SPECIMEN Ordering Facility: [facility] TECHNIC[facility] [place] Address: [facility] [address] [place] [address] Result Comment: Cuto ff threshold at 200 ng/mL. Performed By: #### G LTGST #### [facility] CLIA [id number] [address] [place] [address] [place] BENZODIAZEPINES, UR Negative Normal Negative [facility] Comment on above: Order Comment: Speci men Type: BLOOD SPECIMEN Ordering Facility: [facility]CHNIC[facility] [place] Address: [facility] [address] [place] [address] Result Comment: Cuto ff threshold at 200 ng/mL. Performed By: #### G LTGST #### [facility] CLIA [id number] [address] [place] [address] [place] Cannabinoids Screen Ql (U) Negative Normal Negative [facility] Comment on above: Order Comment: Speci men Type: BLOOD SPECIMEN Ordering Facility: [facility] TECHNIC[facility] [place] Address: [facility] [address] [place] [address] Result Comment: Cuto ff threshold at 50 ng/mL. Performed By: #### G LTGST #### [facility] CLIA [id number] [address] [place] [address] [place] Cocaine Ql (U) Negative Normal Negative [facility] Comment on above: Order Comment: Speci men Type: BLOOD SPECIMEN Ordering Facility: [facility] TECHNIC[facility] [place] Address: [facility] [address] [place] [address] Result Comment: Cuto ff threshold at 300 ng/mL. 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 Performed By: #### G LTGST #### [facility] CLIA [id number] [address] [place] [address] [place] oxyCODONE cutoff Screen (U) [Mass/Vol] Negative Normal Negative [facility] Comment on above: Order Comment: Speci men Type: BLOOD SPECIMEN Ordering Facility: [facility] Address: [facility] [place] [address] Result Comment: Cuto ff threshold at 100 ng/mL. Performed By: #### G LTGST #### [facility] CLIA [id number] [address] [place] [address] [place] Phencyclidine Ql (U) Negative Normal Negative [facility] Comment on above: Order Comment: Specbertha mares Type: BLOOD SPECIMEN Ordering Facility: [facility] [employer] TECHNICIAN Karina Address: [address] [place] [address] , [place] [address] Result Comment: Cuto ff threshold at 25 ng/mL. Performed By: #### G LTGST #### [facility] CLIA [id number] [address] [place], [place] [address] [place] B-HCG SerPl-aCncon 4 HCG.beta subunit Qn m[IU]/mL Normal <5.0 [facility] Comment on above: Order Comment: Tammy mares Type: BLOOD SPECIMEN Ordering Facility: External Submitter Address: , , Result Comment: Dianne logan Performed By: #### 5 7021-8 #### [facility] CLIA [id number] [address] [place] [address] 15293 CNOVon 02-25-2023 CNOV Office Visit (ORTHMN ) JESSEE ALMODOVAR ([id number]) 1990 [facility] Date Time Provider Department 02/25/23 1:00 PM ROSAS MCKINNEY ORTHMN During your visit today, we recorded the following information about you: Weight Height 76.7 kg 1.854 m Rosas Mckinnye MD 03/01/2023 10:50 PM Signed Orthopaedic Oncology [...] with a (more content not included)... Normal [facility] XR HIP 3V PELV+ AP/LAT RTon [...] any questions regarding this interpretation, please call [phone]. If you are unable to reach us at the number above, please feel free to contact [facility] at [phone]. [id number] Normal [facility] XR Pelvis and Hip - right [...] any questions regarding this interpretation, please call [phone]. If you are unable to reach us at the number above, please feel free to contact [facility] at [phone]. DIVISION OF RADIOLOGY * * *Final Report* [...] hip are unremarkable. DIVISION OF RADIOLOGY Provider, [facility] - 02/20/2023 * * *Final Report* [...] any questions regarding this interpretation, please call [phone]. If you are unable to reach us at the number above, please feel free to contact [facility] at [phone]. 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] Order(s):XR HIP GENERAL 3V PELV/AP/LAT RIGHT [[id number]] Order #: [id number] FUTURE Prescriptions as of 02/17/2023 - amphetamine-dextroamphe [...] Status:Closed by TIANA CRONIN on 02/17/23 Normal [facility] CBC W Auto Differential pane l (Bld)on 11-15-2022 Basophils (Bld) [#/Vol] 0.04 10*3/uL <0.11 k/uL [facility] Basophils/100 WBC (Bld) 0.8 % [facility] Differential cell count method Nom (Bld) Auto [facility] Eosinophils (Bld) [#/Vol] 0.11 10*3/uL <0.46 k/uL [facility] Eosinophils/100 WBC (Bld) 2.1 % [facility] Erythrocyte distribution width (RBC) [Ratio] 13.7 % 11.5 - 15.0 % [facility] Hematocrit (Bld) [Volume fraction] 46.7 % High 36.0 - 46.0 % [facility] Hemoglobin (Bld) [Mass/Vol] 15.6 g/dL High 11.5 - 15.5 g/dL [facility] Immature granulocytes (Bld) [#/Vol] <0.10 k/uL [facility] Immature granulocytes/100 WBC (Bld) 0.2 % [facility] Lymphocytes (Bld) [#/Vol] 1.77 10*3/uL 1.00 - 4.00 k/uL [facility] Lymphocytes/100 WBC (Bld) 33.7 % [facility] MCH (RBC) [Entitic mass] 31.8 pg 26.0 - 34.0 pg [facility] MCHC (RBC) [Mass/Vol] 33.4 g/dL 30.5 - 36.0 g/dL [facility] MCV (RBC) [Entitic vol] 95.3 fL 80.0 - 100.0 fL [facility] Monocytes (Bld) [#/Vol] 0.64 10*3/uL <0.87 k/uL [facility] Monocytes/100 WBC (Bld) 12.2 % [facility] Neutrophils (Bld) [#/Vol] 2.68 10*3/uL 1.45 - 7.50 k/uL [facility] Neutrophils/100 WBC (Bld) 51.0 % [facility] Nucleated RBC (Bld) [#/Vol] <0.01 k/uL [facility] Nucleated RBC/100 WBC (Bld) [Ratio] 0.0 /100 WBC [facility] Platelet mean volume (Bld) [Entitic vol] 11.3 fL 9.0 - 12.7 fL [facility] Platelets (Bld) [#/Vol] 154 10*3/uL 150 - 400 k/uL [facility] RBC (Bld) [#/Vol] 4.90 10*6/uL 3.90 - 5.2 0 m/uL [facility] WBC (Bld) [#/Vol] 5.25 10*3/uL 3.70 - 11. 00 k/uL [facility] CBC W Auto Differential pane l (Bld)on 08-09-2022 Basophils (Bld) [#/Vol] 0.03 10*3/uL <0.11 k/uL [facility] Basophils/100 WBC (Bld) 0.6 % [facility] Differential cell count method Nom (Bld) Auto [facility] Eosinophils (Bld) [#/Vol] 0.05 10*3/uL <0.46 k/uL [facility] Eosinophils/100 WBC (Bld) 0.9 % [facility] Erythrocyte distribution width (RBC) [Ratio] 13.6 % 11.5 - 15.0 % [facility] Hematocrit (Bld) [Volume fraction] 42.0 % 36.0 - 46.0 % [facility] Hemoglobin (Bld) [Mass/Vol] 13.5 g/dL 11.5 - 15.5 g/dL [facility] Immature granulocytes (Bld) [#/Vol] <0.10 k/uL [facility] Immature granulocytes/100 WBC (Bld) 0.4 % [facility] Lymphocytes (Bld) [#/Vol] 1.57 10*3/uL 1.00 - 4.00 k/uL [facility] Lymphocytes/100 WBC (Bld) 29.0 % [facility] MCH (RBC) [Entitic mass] 30.5 pg 26.0 - 34.0 pg [facility] MCHC (RBC) [Mass/Vol] 32.1 g/dL 30.5 - 36.0 g/dL [facility] MCV (RBC) [Entitic vol] 94.8 fL 80.0 - 100.0 fL [facility] Monocytes (Bld) [#/Vol] 0.47 10*3/uL <0.87 k/uL [facility] Monocytes/100 WBC (Bld) 8.7 % [facility] Neutrophils (Bld) [#/Vol] 3.27 10*3/uL 1.45 - 7.50 k/uL [facility] Neutrophils/100 WBC (Bld) 60.4 % [facility] Nucleated RBC (Bld) [#/Vol] <0.01 k/uL [facility] Nucleated RBC/100 WBC (Bld) [Ratio] 0.0 /100 WBC [facility] Platelet mean volume (Bld) [Entitic vol] 11.1 fL 9.0 - 12.7 fL [facility] Platelets (Bld) [#/Vol] 145 10*3/uL Low 150 - 400 k/uL [facility] RBC (Bld) [#/Vol] 4.43 10*6/uL 3.90 - 5.2 0 m/uL [facility] WBC (Bld) [#/Vol] 5.41 10*3/uL 3.70 - 11. 00 k/uL [facility] XR Pelvis and Hip - right AP [...] any questions regarding this interpretation, please call [phone]. If you are unable to reach us at the number above, please feel free to contact [facility] at [phone]. DIVISION OF RADIOLOGY * * *Final Report* [...] the interval. DIVISION OF RADIOLOGY Provider, Tom Lakhanicris [facility] - 08/01/2022 * * *Final Report* [...] any questions regarding this interpretation, please call [phone]. If you are unable to reach us at the number above, please feel free to contact [facility] at [phone]. [facility] Study observation (narrative) [facility] XR Pelvis and Hip - right AP and Lateral frogOrdered By: Ccf Provider on 08-01-2022 [facility] Ambulatory Visit Summaryon 0 05-26-2022 Ambulatory Visit [...] Up with CHELSEA KRAUS DO When: Where: [facility] [address] [place] [phone]- Medications What How Much When Why Instructions New amoxicillin (amoxicillin 500 mg Cap) 1 Capsules By Mouth Every 12 hours Strep pharyngitis Duration: 10 Days Pickup at [facility] 1985 Unchanged biotin Contact prescribing [...] physician if questions or concerns Pharmacy Information [facility]: [address] [place], [place] [phone] Allergies No Known Allergies Problems Ongoing - [...] these instructions at home: Medicines ? Take liiu-rhm-mjbfdwr and prescription medicines only as told by [...] included)... Normal [facility] Medicine Office/Clini c Noteon 05-26-2022 Family Medicine Office/Clinic Note Chief Complaint [employer]- sore throat/ ear pain HPI Staff Jessee [...] and flu, NyQuil with minimal improvement. No tggw-iab-afswpbq medications today. Review of Systems PHQ Score [...] day(s), # 20 cap(s), Refills(s) 0, Pharmacy: [facility] 1985, 172, cm, 05/26/22 9:34:00 [...] Acute pharyngitis, unspecified) Ordered: Rapid Strep POC 57634 Follow-up With When Contact Information CHELSEA KRAUS DO [facility] [address] [place] [phone]- Additional Instructions: Patient Education Strep Throat, Adult, Vlwz-ts-Tdca BMI for Adults Problem List/Past Medical History [...] Strep POC Result: Positive (05/26/22 09:56:00) Normal [facility] Comment on above: Result Comment: Elec tronically [...] these instructions at home: Medicines ? Take ayjl-hrx-cihaxao and prescription medicines only as told by [...] 09/23/2008 Document Revised: 06/25/2019 Document Reviewed: 06/25/2019 [employer] Patient Education ? 2019 [employer]. Nutrition BMI for Adults Body mass index (BMI) is a number that is calculated from a person's weight and height. BMI may help to estimate how much of a person's weight is composed of fat. BMI can help identify those who may be (more content not included)... Normal [facility] Coding Summary.on 02-26-2022 Coding Summary. [id number] Gh0 bWw+PGhlYWQ+FG1CUUUiO79 cpJWjeW8AR5tQEL7HRRGEAW GBUM5ZIO0ugXG8PIpbL3Tav iAv YeybfUIfOA37MSo4MVJ4qUm aXAotaQ7ctPGnV1u6IgMuWA 60lU06LKzvTGHxTeU0OhVln jsgbWFy E5ivThAmlSEiCzg+PHRhYmx lIHdpZHRoPScxMDAlJyBzdH ljNI4pCu2rFHSiYYTuzIgbs HNlOiBj u8afNLSyMVwwSQ4geXvuT9C woPG8QKSzp9p0Au07nNQ+PH KrFXH4iYszFEasy813XoSqv 9kbXSW2 sJXsEFjiPVL8K17nx8C7KSI kQEBpPXR3pVP6rS4mqCzegk asK0KjbLOoMjK3CRB3rABpu N5ktZvf stpngN8cKht+Y02FIG4CWWE RET1AXrs4F6VcFmzyyBR+PC 78POOxTZ93oSLcnDCks5jov Sw4FqJk MDVeYBC0mKubSBhge2KiQYD nA43ouJWzr4F9RXFiiXdvvE JwZqUtaMU3yM6kYOjdqlvaf 2hvdzsn Gjfqj3hmsm72sG11S80rIFn aKFDxYZX6ZDZxIQEdpMdomp 4mfV1vPm5+RFlfa0lky1wry Zw6XkZl NRLjvmMecGgeEJC6f3JsKg1 4S6JkoVdxi4GpHos1xm69iZ Eyv0K9sRH1PTucYSGqpC8vY WxlZnQ6 ALErKdIntM35vMZwYZqmZo4 vsNvleQvfWP4cMBKthqdvEX KowF3uXGHqnDUshFkcHP7uJ TBpbjtm t678JhPcFTE0UQPybOSfZ0P otF9uJdEbHXZpPYPoJ2QrnS LeZObaH666YYzaIeK8FLDfl xXzA9Ih XFRnbXszIwJ9w0E8Vn5Gy3V xwgcxLLJ6MAftHAMxIvV1Zb XbRfC1T5TvXen0FYWsnCmfK J7wB3Qw BJBwpnrfklmxhIO1IBLbAGC seT83xTJjNSkgTr6lb9D5k6 08GVRzPZVklH02Gj4boCtmA TBwdCBU kF5dxiufw2mtxojwYjCtUMD eFPw8PFs2FEWxnHcuTuDxCF O3HiZ4ICF3aTJlxM1ocTgvb sskiC5i Oyc+U42poC7gMER8LSG3wvo cHDZwghWkBI70RP84L1PlPr wvdGFibGU+PGRpdiBzdHlsZ U2nSiDv d9nol8TqYBpqZ6LtFUMlAEj eZpp4QDReSUP5sNI3bP1rID ZcCKugg6O4aMT3T0NupjTkf c9aj4jt VVEcEOmwZ35waPFww3A0PNU pbOW8VVKaaOkxXkQmoT98Vm c+UERnhSywm3IoUnecf7tvt 4exsEv4 HiNuAWArnoZmuSscQTX3i2Q oQz05W20mILcwPPVaZBPiRQ MfSNRoaHlric9ngR6aYu3+P GNvbCB3 yTW4mR4pSEYsQlZ5QMdpI67 9JjUzyLKlVhwnd4jmt4huvE p6BcCnOGSbiqPayMhbFWX2u 6TfZt06 H00fNDarAPKlIBPdDKJxXHM mrUgkhd8lyI8gLh5+PC9jb2 kuup64lY72rHJ+SJNwGFI0u WxlPSdw IVSggZ5yDDuxOaP8DGZwUjD rjR31fGJwYTslYu8zgDsavG jzBU1uURBexhdhw714DaBgb 2xkIDEw xOOhNKozUUB0J41ru2S9HZW wZJDvGRJ7yOO2nL9akCaths ogbGVmdDsgdmVydGljYWwtY ZfsG033 IHRvcDsnPlBhdGllbnQgTmF xGPs4P1UqDgo4NMSlvKmeOG 6lxRJvEKneEp5qaFsjrItmZ D2mCNXe wburq256BdPbo6ipVBXygSO uRBfoPHP5C20iy9C4SADmID TaEHE2jJV3gY0pbDzjooirl GVmdDsg ugJrjIbdAOqkDEbxH411CGR rwLhjNfPwkfSgIOZlnUC2XM 67VI06mCKnd2E7hBW5V1DkH GRpbmct nfxzbAT2OJMhMVRvrV33Xs5 ykXboIn0xYPJzZCE8MXEvaP FfB7GbmB0lNlHjRXCtBHJeQ 3RleHQt BTevV481YLbeJpQ5HKMejzS jY3LlIOLruJwlZaW7s3K7Zx 6JP0C8BO19DO46cYWoa4X3w CC4F0Ex RRZbcmqosdznmCD9IDBoUFW xkM15Fa7krJttGl8xSQPhYO T1FZJppXQjG1WwqT9bUnTgR DAwMDAw U1JeoFCbHHreG352BLnkFcE 2JPQstwZkI6JuOQWasVbuPw H5w3E6Sh3JPCm3CB00FC74v OMnl8N3 dCU8T1UwDWWzznakxmsbwEO 5RKAwHPPwmA62Uw6gaHmtVm 4oACZnNPU2CKHdmHJzU3Ydp P8pYdGa VWNzRGJwU9RjgQHeZLpyP05 6CDkqKhQ7UUYnmwArO2DrDH RtxMsiWhE6l7G2Bw8BFSJiJ V89HZV9 nLW3QE08MX54G3WhHddreND ibGU+PHRhYmxlIHdpZHRoPS omUTVjFrBorNnwTV2oOx8yN GVyLWNv hJnmsEDeRhQya6zmZDCyJAk qUT1vtMpzC6KzcCV9XPRoo0 l6Av65Q22oI8ExnRW+PGNvb VG3mPY4 kX5dPfLqTqL0TGcfG450FdD khVGpQudbm4aat6nlcUe4Ik B0QLCghrAkjRyeIEG5v6IoM x50M46p IHdpZHRoPSIxNSUiIHZhbGl hzw0brW6uBq5+JINquKK1jA W9fZ0nQlZfKkV5FGsgN811B nRvcCIv Tbzaw2tdn5fwiHa0LvQlWCF sgdPmyJmtJFD9x5CcDa06P0 McwAjyo3TtLvj2zg70kEMzg 0X6tFH5 G3JxBXGihohchXMudRyeTD2 nLZCljepoXGUfjF9lGOYfP2 a6DnBjKqK1EXvrE7AlzqY3N DEwcHQg ZEhfQRW2U35ut5N5CTVjQVV qKNI5dXM9aT8ltKmfdlcufK VmdDsgdmVydGljYWwtYWxpZ 246IHRv yUxfSXKxwB6eBAJubRDbeIn eYF4wDGNylqrvNbaSBVhFNC aFGaqaSTGWQK46C4BvPsb5K CBzdHls AM5fbAItNNimQk5cpQtegHb nVV1hJYJbradwYNRkvY1vCF FctUDmrHgjMR6pYCZfadcqo 250OiAx CZM2FWHpxUOhR1GewH4sYkC bHWHkFBBuU3UruEZiVShnY9 70DDczBpC0QGGkzuNaL8FcH WFsaWdu YnL1v5G1Hy7sCO7rFL4xSWg wJP38ZE60yWVat0H2zCK4J7 OsIKTvsrfcnmdfvND5PVAmH DUwaW47 fSBwMFraXq0qg8B1k953NEC gPUUydA94Sp6dbXdcVPZyeB OJrW8tijmvq4tcprgcWdHpF DAwMDt0 LQp4MSZezGvrMrCwXUF0CoV 0KCZ0hVUfkB4mdIanddlcuD 9wOyc+JzEsZZEmncH9D4McM vf3IOLe oOanOA5gvYGhHWtzLs7zjHz fuRunCD0zEGWwgpznDZKnuR 5yTXAgxBVmlBuwFB4yVWPyr pitr435 XaMjTTI1PVQnnIKaZ8LanM5 bOoTvWFXjNXDbA0NnyBVsWL clA820KDofFeT8ZUNvwrYiF 2FsLWFs nOjvRlO0q5A8Kn1GBI8wsGF 5O0BeAfy2MYBezMklNE1bjX EqHLxhVv8vtOgflTieFI0rM TBpbjtw CFPjlH6lHCDkzETemCnkDN8 kHYRctxxrs839UxTsWVL9JK PjbEQkZ7TouL1wVfLyLUYxQ IHmP9Iq iKObISntI301UVioNaL5GMC ytuGlG6YdIWQzrXemZyA5t0 X0Zr3YgSWuA4FlF2m5G7CfE jwvdHI+ DR51VBUrNX32yRKfiDApp6z hgYl6ChTmLHLzNIP4kGuuEZ dte9RqIMJtC57qiXHbd1K1L GNvbGxh sDOpFkTeaDX9vV6vJQawiqi re8utjawhGqukz0eawy71fI 59C71yNJtpFCJcVYHaZVEuK HZhbGln zt9xvL9yRp7+LGLqeYN3yKB 3pS6dNdRbKpX0QNnsE965Py ThsBBfMsfue7cyv5ztpVq5L jIwJSIg unUlxTspYSR2u9BmSq79L56 sIHdpZHRoPSIyMCUiIHZhbG yuko2ojM4zCh9+FF5pz1tkd p19sO31 dHI+MENjXLE5sPguKTfyBOO avI7bKVnlCpW3BHSbAkIgpP 32oSMfNYmiHf8mdWbapShaN A1aMJEe qcbab407NkAic8tnRQLawYG aZFlpZFF9W93qe8G5OBTxEE EcTUM5kLW1sA7ckEmofxivc GVmdDsg ekXtxZjvDKbjCZgiI273EAW ziLyxUjFcwDOkD6nhgxXSRP 1lOjwvdGQ+BFMdOQE3rCevA SdwYWRk zP4vWBBfI4p2BhJwCgS9TQf kG1SkzzB5CVZbhVXyBKKeiK CQyV1zckkdf3sdszjzGkSmT DAwMDt0 TRi4IITpgBcrZtUwODV0OcH 5NIG8rASwkD4bpIzhsqpodY 9wOyc+RklOOjwvdGQ+PHRkI AU5eCas TGfwJKUjpH8mYMEkQ4j8MeP oTjK5WEheN8GaebY6YVQtuW TmSLNjrTMHtJ4ltclms6mxw jogIzAw DIUyXVl7ELw1KVAljBdsKxT kIAY2GcI6EWE8yYYguY5rnW uldcuzoS2mYij+TVJOOjwvd GQ+PHRk KXA8iCsqHXanJSMgvQ9pYOI lD5m8KwWwXmN7ERdnX2Ygze B5ACHwwEKyYTWxvKMQlT1td ufbu0ko yybkUbCqXYPtJMc8MOk8TXH dwErwZtUoFXU2QjU2TRN6gR YrzP8giAaashlsrG9kTkp+U ZM7ALW6 RK86IL12P8ZlGxpzfDIawCX +PHRhYmxlIHdpZHRoPScxMD AwUoSkkVzlCZ1qPo7nPJQiD WNvbGxh cHNl (more content not included)... Normal [facility] Discharge Instructionson Discharge Instructions [id number] CD:127 Normal [facility] ED Clinical Summaryon 2021 ED Clinical Summary [address] [address] ED Clinical Summary Person Information [facility] Age[facility] 32 Years : 1990 Sex: Female Language: Moldovan PCP: Marital Status: Phone: [phone] Visit Id: Visit Reason: Foot pain-swelling; HURT [...] 02/23/2022 11:07:01 02/23/2022 11:07:01 ADDRESS: [place] [facility] [id number] PHYS DOC NOTES: MEDICAL INFORMATION: Prescriptions Given: PATIENT EDUCATION INFORMATION: Instructions: Foot Sprain; How to Use Cold Therapy, Xfiy-gx-Sgrp; Elastic Bandage and RICE Therapy Follow up: With: Address: When: CHELSEA HALLPegg'd, [address] [place], [place] [id number] [facility] In 3 days 02/26/2022 Comments: Follow-up with your primary care provider in 3 to 5 days. If symptoms worsen, do not improve, or new symptoms arise please report back to emergency department for further evaluation. DIAGNOSIS: Sprain of left foot Normal [facility] ED Note-Physicianon 02-24-20 ED Note-Physician Basic Information [...] Information CHELSEA EFRA In 3 days 02/26/2022 [facility] [employer] [address] [place] [phone]- Business (1) Additional Instructions: Follow-up with your primary care provider in 3 to 5 days. If symptoms worsen, do not improve, or new symptoms arise please report back to emergency department for further evaluation. Patient Education Foot Sprain How to Use Cold Therapy, Osjq-jn-Dsph Elastic Bandage and RICE Therapy Attestation Patient seen and evaluated by the physician freezer assistant. Attending physician was present in the emergency department and supervised care. This visit was performed by both the physician and an APC. I performed all aspects of the MDM as documented. This report was transcribed using voice recognition software. Every effort was made to ensure accuracy, however, inadvertently computerized application administrator mistakes may be present. Appropriate healthcare PPE [...] medications Ho (more content not included)... Normal [facility] Comment on above: Result Comment: Elec tronically [...] This may take several hours. ? Take soaq-eer-abdnlmj and prescription medicines only as told by [...] is no (more content not included)... Normal [facility] ED Patient Summaryon ED Patient Summary (Inserted Image. Kelsi ble to display) [address] [address] Patient Discharge Instructions Person Information Name: JESSEE ALMODOVAR Age: 32 Years Arrival Date: 02/23/2022 09:05:13 Discharge Diagnosis: Sprain of left foot Primary Care Physician: Provider Information Primary Provider: Chayo Anne DO Advanced Cage Unloader:None The exam and treatment you received in the Emergency Department were for an urgent problem and are not intended as complete care. It is important that you follow up with a doctor, nurse practitioner, or physician?s freezer assistant for ongoing care. If your symptoms [...] Follow-up Instructions: With: Address: When: CHELSEA KRAUS [employer], [address] [place] [id number] Business (1) In 3 days 02/26/2022 [...] Foot Sprain; How to Use Cold Therapy, Drdf-cp-Aaww; Elastic Bandage and RICE Therapy A MESSAGE TO ALL PATIENTS REGARDING OPIOIDS PRESCRIPTION OPIOIDS: WHAT YOU NEED TO KNOW Prescription opioids can be used to help relieve dgpzitbt-ej-njuvae pain and are often prescribed following a [...] Visit www.cdc.gov/ (more content not included)... Normal [facility] XR Foot 3+ Views Lefton XR Foot [...] DO Transcribed by: SUZY Technologist: TIM Normal [facility] XR Pelvis and Hip - right AP [...] any questions regarding this interpretation, please call [phone]. If you are unable to reach us at the number above, please feel free to contact [facility] at [phone]. DIVISION OF RADIOLOGY * * *Final Report* [...] joint appears preserved. DIVISION OF RADIOLOGY [facility] * * *Final Report* [...] any questions regarding this interpretation, please call [phone]. If you are unable to reach us at the number above, please feel free to contact [facility] at [phone]. [facility] XR Pelvis and Hip - right AP and Lateral frogOrdered By: Ccf Provider on 02-19-2022 [facility] XR Pelvis and Hip - right AP and Lateral frogon 02-18-2022 Radiology Study observation (narrative) [facility] CT ABD/PELV W CONon 02-12-20 CT ABD/PELV [...] EMELIA STEWART Date: 2022-02-11 07:23 Normal [facility] US PELVIS AND TRANSVAGon US PELVIS AND [...] JENNIFER HARTLEY Date: 2022-01-08 14:12 Normal [facility] UA DIP, URINE (POC)on 2021 BILIRUBIN UA (POCT) Negative Negative [facility] CLARITY UA (POCT) Cloudy [facility] COLOR UA (POCT) Yellow [facility] GLUCOSE UA (POCT) Negative Negative mg/dL [facility] HEMOGLOBIN/BLOOD UA (POCT) Trace-intact Abnormal Negative [facility] KETONE UA (POCT) Negative Negative mg/dL [facility] LEUKOCYTES UA (POCT) Small Abnormal Negative [facility] NITRITE UA (POCT) Negative Negative [facility] PH UA (POCT) 6.5 4.5 - 8.0 [facility] Protein Ql (U) Negative Negative mg/dL [facility] SPECIFIC GRAVITY UA (POCT) 1.015 1.005 - 1.030 [facility] UROBILINOGEN UA (POCT) 0.2 E.U./dL Normal E.U./dL [facility] Large Joint Arthro/Inj: R gr eater trochanteric bursa [facility] Vital Signs Date Time Vital Sign Value Performing Clinician Facility 01-27-2024 10:17-0400 Body mass index (BMI) [Ratio] 29 kg/m2 Franny COSTELLO Work Phone: [facility] 01-27-2024 10:17-040 Body weight 98.34 kg Franny COSTELLO Work Phone: [facility] 01-27-2024 10:17-040 Diastolic blood pressure 60 mm[Hg] Franny COSTELLO Work Phone: [facility] 01-27-2024 10:17-040 Systolic blood pressure 110 mm[Hg] Franny COSTELLO Work Phone: [facility] 02-25-2023 13:16-0500 Body height 185.4 cm Rosas Mckinney MD Work Phone: [facility] 02-25-2023 13:16-0500 Body weight 76.67 kg Rosas Mckinney MD Work Phone: [facility] 07-10-2022 15:15-0400 Body height 181.61 cm Imad Asaad Other [employer] Other 07-10-2022 15:15-0400 Body mass index (BMI) [Ratio] 24.48 kg/m2 Imad Asaad Other [employer] Other 07-10-2022 15:15-0400 Body weight 80.74 kg Imad Asaad Other [employer] Other 07-10-2022 15:15-0400 Diastolic blood pressure 78 mm[Hg] Imad Asaad Other [employer] Other 07-10-2022 15:15-0400 Systolic blood pressure 130 mm[Hg] Imad Asaad Other [facility] [employer] Other 05-26-2022 09:29-0500 Blood Pressure Location Roxanne MOSLEY [facility] 05-26-2022 09:29-0500 Body temperature 98.42 [degF] Roxanne MOSLEY [facility] 05-26-2022 09:29-0500 Diastolic blood pressure 78 mm[Hg] Roxanne MOSLEY [facility] 05-26-2022 09:29-0500 Heart rate 115 /min Roxanne MOSLEY [facility] 05-26-2022 09:29-0500 SaO2% (BldA) [Mass fraction] 98 % Roxanne MOSLEY [facility] 05-26-2022 09:29-0500 Systolic blood pressure 120 mm[Hg] Roxanne MOSLEY [facility] 02-23-2022 09:10-0400 Body temperature 98.42 [degF] Chayo Anne [facility] 02-23-2022 09:10-0400 Diastolic blood pressure 67 mm[Hg] Chayo Mcneile [facility] 02-23-2022 09:10-0400 Heart rate 88 /min Chayo Mcneile [facility] 02-23-2022 09:10-0400 Respiratory rate 18 /min Chayo Anne [facility] 02-23-2022 09:10-0400 SaO2% (BldA) [Mass fraction] 98 % Chayo Dayana [facility] 02-23-2022 09:10-0400 Systolic blood pressure 141 mm[Hg] Chayo Anne [facility] Encounters Encounter Date Encounter Type Care Provider Facility Start: 02-10-2024 End: 02-10-2024 Bamboo flowsheet Guillaume Pedro DO Work Phone: [facility] Start: 02-10-2024 End: 02-10-2024 Bamboo flowsheet Guillaume Pedro DO Work Phone: [facility] Start: 02-05-2024 End: 02-05-2024 ambulatory ANUPAMA BROWN Facility:[facility] Start: 01-27-2024 End: 01-27-2024 Bamboo flowsheet Franny COSTELLO Work Phone: [facility] Start: 01-27-2024 End: 01-27-2024 Bamboo flowsheet Franny COSTELLO Work Phone: [facility] Start: 01-27-2024 End: 01-27-2024 ambulatory FRANNY HAGER Not Available Start: 01-27-2024 End: 01-27-2024 flow sheet Franny COSTELLO Work Phone: [facility] Comment on above: 33 weeks gestation o f ; Third trimester ; Low iron; Nonintractable headache, unspecified chronicity pattern, unspecified headache type; Constipation, unspecified constipation type Start: 01-19-2024 End: 01-19-2024 ambulatory ANUPAMA BROWN Facility:[facility] Start: 01-13-2024 End: 01-13-2024 ambulatory GUILLAUME PEDRO Not Available Start: 01-05-2024 End: 01-05-2024 ambulatory ANUPAMA BROWN Facility:[facility] Start: 12-30-2023 End: 12-30-2023 ambulatory GUILLAUME PEDRO Not Available Start: 12-16-2023 End: 12-16-2023 ambulatory GUILLAUME PEDRO Not Available Start: 12-08-2023 End: 12-08-2023 ambulatory GUILLAUME R PEDRO Facility:[facility] Start: 11-20-2023 End: 11-20-2023 ambulatory FRANNY L KIN Facility:[facility] Start: 11-18-2023 End: 11-18-2023 ambulatory FRANNY HAGER Not Available Start: 10-22-2023 End: 10-22-2023 ambulatory GUILLAUME R PEDRO Facility:[facility] Start: 10-21-2023 End: 10-21-2023 ambulatory GUILLAUME PEDRO Not Available Start: 10-16-2023 End: 10-16-2023 ambulatory [facility] Start: 09-24-2023 End: 09-24-2023 ambulatory FRANNY HAGER Not Available Start: 08-26-2023 End: 08-26-2023 ambulatory GUILLAUME PEDRO Not Available Start: 08-08-2023 End: 08-08-2023 ambulatory ANUPAMA BROWN Facility:[facility] Start: 07-24-2023 End: 07-24-2023 ambulatory GUILLAUME PEDRO Not Available Start: 06-04-2023 End: 06-04-2023 ambulatory ASIF GRIFFIN [facility] Start: 06-02-2023 End: 06-02-2023 Phys/qhp telephone evaluation 5-10 min Guillaume Pedro DO Work Phone: [facility] Comment on above: Irregular menses (Pr imary Dx) Start: 06-02-2023 End: 06-02-2023 ambulatory GUILLAUME PEDRO Not Available Start: 05-28-2023 Chart abstracting Guillaume Pedro DO Work Phone: [facility] Start: 05-16-2023 End: 05-16-2023 ambulatory ANUPAMA BROWN Facility:[facility] Start: 05-05-2023 End: 05-05-2023 ambulatory ANUPAMA BROWN Facility:[facility] Start: 05-02-2023 End: 05[facility] Start: 05-02-2023 End: 05-02-2023 Office outpatient visit 25 minutes Asif Tino Heribertoele SERVICE OPERATIONS MANAGER-RN FLOAT Work Phone: [facility] [facility] Comment on above: Attention deficit hy peractivity disorder (ADHD), predominantly inattentive type (Primary Dx); Moderate episode of recurrent major depressive disorder (CMS-HCC); Generalized anxiety disorder Start: 03-04-2023 End: 03-04-2023 ambulatory GUILLAUME VASQUEZ Not Available Start: 02-25-2023 End: 02-25-2023 ambulatory ANUPAMA BROWN Facility:[facility] Start: 02-25-2023 End: 02-25-2023 Office outpatient visit 25 minutes Rosas Mckinney MD Work Phone: Orthopaedics Comment on above: Lytic bone lesion of femur (Primary Dx); Greater trochanteric bursitis of right hip; Chronic pain of right hip; Chronic low back pain, unspecified back pain laterality, unspecified whether sciatica present; Pain of right hip; Bone lesion Start: 02-20-2023 End: 02-20-2023 ambulatory ANUPAMA BROWN Facility:[facility] Start: 02-20-2023 End: 02-20-2023 Subsequent hospital [...] 07-10-2022 End: 07-10-2022 ambulatory Imad Asaad Other [employer] Other Start: 07-10-2022 Office outpatient ne w 45 minutes Imad Asaad [facility] Start: 05-26-2022 End: 05-27-2022 ambulatory Roxannezen SELLERSLEY Facility: [place] Start: 05-26-2022 End: 05-26-2022 Patient encounter procedure Roxnane Villareal DIMITRI [facility] Start: 05-08-2022 End: 05-08-2022 ambulatory PRAVIN HAGER Facility: Start: 02-26-2022 End: 02-26-2022 Patient encounter procedure Rosas Mckinney MD Work Phone: Orthopaedics Comment on above: Lytic bone lesion of femur (Primary Dx) Start: 02-23-2022 End: 02-23-2022 Emergency department patient visit Chayo Anne Facility:[facility] Start: 02-23-2022 End: 02-23-2022 Emergency department patient visit Chayo Anne [facility] Start: 02-18-2022 End: 02-18-2022 Subsequent hospital [...] Dx) Start: 10-04-2021 Orders Only Macy Jones APRN.RN FLOAT Work Phone: Hematology/Oncology Comment on above: Acute [...] T SCR #### CC MAIN BLOOD BANK [facility] [id number] [address] [place] [address] [place] Start: 02-25-2023 Arthrocentesis aspir &/inj major jt/bursa w/o us Tiana Cronin PA-C Work Phone: Start: 02-20-2023 Radex hip unilateral with pelvis 2-3 views Roni Dumas MD Work Phone: Start: 08-08-2022 Adult depression scr eening assessment Asif Schaefer SERVICE OPERATIONS MANAGER-RN FLOAT Work Phone: Start: 08-01-2022 Radex hip unilateral [...] Td Vaccines (4 - Td or Tdap) [facility] Start: 01-04-2030 Urine microalbumin profile DTa P,Tdap,Td Vaccine (4 - Td or Tdap) [facility] Start: 10-20-2028 Screening for malign ant neoplasm of cervix [facility] Start: 03-10-2024 Tobacco Screening Tobacco Screening [facility] Start: 02-23-2024 Screening for malign ant neoplasm of cervix [facility] Start: 02-10-2024 End: 02-10-2024 Patient encounter procedure 02/10/2024 1:00 PM EDT Routine [facility] [address] [place] [id number] Guillaume Vasquez, DO [address] [place] [address] [facility] Start: 12-21-2023 Covid-19 Vaccine ( season) Covid-19 Vaccine ( season) [facility] Start: 12-21-2023 Covid-19 Vaccine ( season) Covid-19 Vaccine ( season) [facility] Start: 12-21-2023 Influenza vaccination Influenza Vacc ine (#1) [facility] Start: 08-09-2023 Adult BMI Screening Adult BMI Screen ing [facility] Start: 08-09-2023 Depression Screening Depression Scre ening [facility] Start: 05-29-2023 End: 05-29-2023 Patient encounter procedure 05/29/2023 8:10 AM EST Office Visit [facility] [address] [place] [id number] Guillaume Vasquez, [address] [place] [address] Irregular menses [facility] Comment on above: Irregular menses Start: 12-20-2022 Covid-19 Vaccine ( season) Covid-19 Vaccine () [facility] Start: 12-20-2022 Influenza vaccination INFLUENZA (#1) [facility] Start: 11-15-2022 End: 01-15-2023 Comprehensive metabolic 2000 panel - Serum or Plasma [facility] Work Phone: Comment on above: Expected: 11/15/2022 , Expires: 01/15/2023 Start: 11-15-2022 End: 01-15-2023 Lipid 1996 panel - Serum or Plasma [facility] Work Phone: Comment on above: Expected: 11/15/2022 , Expires: 01/15/2023 Start: 11-15-2022 End: 01-15-2023 T4/FTI/T4U [facility] Work Phone: Comment on above: Expected: 11/15/2022 , Expires: 01/15/2023 Start: 11-15-2022 End: 01-15-2023 Thyrotropin [Units/volume] in Serum or Plasma [facility] Work Phone: Comment on above: Expected: 11/15/2022 , Expires: 01/15/2023 Start: 08-26-2022 End: 03-28-2023 XR HIP GENERAL 3V PELV/AP/LAT RIGHT XR HIP GENERAL 3V PELV/AP/LAT RIGHT Radiology Routine Lytic bone lesion of femur Expected: 08/26/2022, Expires: 03/28/2023 [facility] Work Phone: Comment on above: Expected: 08/26/2022 , Expires: 03/28/2023 Start: 08-09-2022 End: 10-09-2022 25-hydroxyvitamin D3 [Mass/volume] in Serum or Plasma [facility] Work Phone: Comment on above: Expected: 08/09/2022 , Expires: 10/09/2022 Start: 04-21-2022 DEPRESSION ASSESSMENT DEPRESSION ASS [facility] Start: 12-20-2021 Influenza vaccination INFLUENZA (#1) [facility] Start: 12-06-2021 End: 02-05-2022 Thyrotropin [Units/volume] in Serum or Plasma [facility] Work Phone: Comment on above: Expected: 12/06/2021 , Expires: 02/05/2022 Start: 12-06-2021 End: 02-05-2022 Thyroxine (T4) free [Mass/volume] in Serum or Plasma [facility] Work Phone: Comment on above: Expected: 12/06/2021 , Expires: 02/05/2022 Start: 12-06-2021 End: 02-05-2022 Triiodothyronine (T3) [Mass/volume] in Serum or Plasma [facility] Work Phone: Comment on above: Expected: 12/06/2021 , Expires: 02/05/2022 Start: 11-08-2021 End: 01-08-2022 Choriogonadotropin ( test) [Presence] in Urine [facility] Work Phone: Comment on above: Expected: 11/08/2021 , Expires: 01/08/2022 Start: 11-08-2021 End: 01-08-2022 URINALYSIS, REFLEX MICROSCOPIC [facility] Work Phone: Comment on above: Expected: 11/08/2021 , Expires: 01/08/2022 Start: 04-21-2021 [facility] Start: 2021 HPV TESTING HPV TESTING [facility] Start: 10-13-2020 COVID-19 VACCINE (3 - Booster for Moderna series) COVID-19 VACCINE (3 - Booster for Moderna series) [facility] Start: 07-10-2020 COVID-19 VACCINE (3 - Booster for Moderna series) COVID-19 VACCINE (3 - Booster for Moderna series) [facility] Start: 07-10-2020 COVID-19 VACCINE (3 - Moderna series) COVID-19 VACCINE (3 - Moderna series) [facility] Start: 02-08-2012 PAP TESTING PAP TESTING [facility] Start: 02-08-2012 Screening for malign ant neoplasm of cervix [facility] Start: 2010 Urine microalbumin profile DTA P,TDAP,TD (1 - Tdap) [facility] Start: 2009 Anxiety Screening Anxiety Screening [facility] Start: 2009 Depression Screening Depression Scre ening [facility] Start: 2009 HEPATITIS C SCREENING HEPATITIS C SC REENING [facility] Start: 2009 HIV SCREENING HIV SCREENING [facility] Start: 2003 Adult depression scr eening assessment DEPRESSION SCREENING [facility] Start: 1997 Pneumococcal vaccination [facility] Start: 1991 HEPATITIS B (1 of 3 - 3-dose series) HEPATITIS B (1 of 3 - 3-dose series) [facility] Bacteria identified in Urine by Culture URINE CULTURE Microbiology Routine Pelvic pain 11/08/2021 11:36 AM EDT [facility] Work Phone: End: 06-02-2023 Drug Screen, Urine Drug Screen, Urine Lab Routine Attention deficit hyperactivity disorder (ADHD), predominantly inattentive type 1 Occurrences starting 05/02/2023 until 06/02/2023 [facility] Work Phone: Comment on above: 1 Occurrences starti ng 05/02/2023 until 06/02/2023 End: 03-26-2024 MRI HIP WO IVCON RIGHT MRI HIP WO IVCON RIGHT Radiology Routine Greater trochanteric bursitis of right hip Chronic pain of right hip Pain of right hip Bone lesion 1 Occurrences starting 02/25/2023 until 03/26/2024 [facility] Work Phone: Comment on above: 1 Occurrences starti ng 02/25/2023 until 03/26/2024 End: 03-18-2024 XR HIP GENERAL 3V PELV/AP/LAT RIGHT XR HIP GENERAL 3V PELV/AP/LAT RIGHT Radiology Routine Lytic bone lesion of femur 1 Occurrences starting 02/17/2023 until 03/18/2024 [facility] Work Phone: Comment on above: 1 Occurrences starti ng 02/17/2023 until 03/18/2024 [facility] Immunization Date Immunization Notes Care Provider Jonathan lara 01-28-2023 influenza virus vaccine, unspecified formulation Roni Dumas MD Work Phone: [facility] 02-14-2022 influenza virus vaccine, unspecified formulation Rosas Mckinney MD Work Phone: [facility] 01-18-2021 influenza virus vaccine, unspecified formulation Macy Jones APRN.CNP Work Phone: [facility] 03-01-2020 influenza, seasonal, injectable Imad Asaad Other [employer] Other 02-03-2016 influenza, injectable, quadrivalent, contains preservative Imad Asaad Other [employer] Other NEGATED: Highlighted row has not occurred!03-02-2019 influenza, seasonal, injectable Imad Asaad Other [facility] [employer] Other Payers Date Payer Category Payer Private Health Insurance [employer] [id number] 2018 Unknown [id number] 1991 Unknown [id number] 2.16.840.1.602611.3.579.2. 593 1991 Unknown [id number] 2.16.840.1.177372.3.579.2. 593 1991 Unknown [id number] 2.16.840.1.223915.3.579.2. 593 1991 Unknown [id number] 2.16.840.1.741644.3.579.2. 727 1991 Unknown [id number] 2.16.840.1.723462.3.579.2. 727 1991 Unknown [id number] 2.16.840.1.387637.3.579.2. 1286 1991 Unknown [id number] 2.16.840.1.543537.3.579.2. 1286 1991 Unknown [id number] 2.16.840.1.796440.3.579.2. 1286 1991 Unknown [id number] 2.16.840.1.915198.3.579.2. 1286 1991 Unknown [id number] 2.16.840.1.335880.3.579.2. 1259 1991 Unknown [id number] 2.16.840.1.858736.3.579.2. 1259 1991 Unknown [id number] 2.16.840.1.199014.3.579.2. 1259 1991 Unknown [id number] 2.16.840.1.232218.3.579.2. 1259 1991 Unknown [id number] 2.16.840.1.194103.3.579.2. 1259 1991 Unknown [id number] 2.16.840.1.479171.3.579.2. 1259 1991 Unknown [id number] 2.16.840.1.881155.3.579.2. 1259 1991 Unknown [id number] 2.16.840.1.955744.3.579.2. 1259 1991 Unknown [id number] 2.16.840.1.446990.3.579.2. 1259 1991 Unknown [id number] 2.16.840.1.265680.3.579.2. 1259 1991 Unknown [id number] 2.16.840.1.151286.3.579.2. 1259 1959 Unknown [id number] Social History Date Type Detail Facility [facility] Work Phone: Start: 1990 Sex Assigned At Not on file C [facility] Start: 10-29-2021 End: 02-26-2022 Exposure to SARS-CoV-2 (event) Not sure [facility] Start: 03-21-2013 End: 10-21-2023 Tobacco smoking status Ex-smoker (finding) [facility] Comment on above: quit 01/2013 Start: 02-26-2022 End: 10-21-2023 Sex Assigned At Female [facility] History of tobacco use Current smoker [facility] History of tobacco use Cigarette Smoker C [facility] History of tobacco use Passive smoker [facility] Start: 02-11-2022 End: 10-21-2023 Tobacco use and exposure Smokeless tobacco non-user [facility] Start: 02-11-2022 End: 02-26-2022 Alcohol intake Current drinker of alcohol (finding) [facility] Tobacco smoking status Never [facility] Start: 02-26-2022 End: 10-21-2023 History of Social function [facility] Start: 02-25-2023 End: 05-28-2023 Tobacco smoking status AKIS Occasional tobacco smoker [facility] Start: 08-08-2022 Alcohol Comment on the weekends [facility] Start: 05-28-2023 Alcohol Comment caffeine: 2-3 cups per day coffee; soda [facility] Start: 01-13-2024 End: 01-27-2024 Alcoholic beverage intake Ex-drinker (finding) [facility] Start: 06-19-2023 [facility] andrade Functional Status Date Assessment Result Facility 05-26-2022 Functional Status N/A [facility] 02-23-2022 Functional Status N/A [facility] Clinical Notes 08-20-2015 to 01-27-2024 Franny Hager, PRAVIN - 01/27/2024 9:50 AM Billie Vasquez, - 06/02/2023 4:20 PM ESTPsychiatric Progress Note - Asif Schaefer, SERVICE OPERATIONS MANAGER-RN FLOAT - 05/02/2023 10:00 AM ESTPatient Instructions Note [...] EXCISION 2013 (CIN1...neg. margins). Dr. Hernandez COLPOSCOPY 2014 with biopsies (CIN2). Dr. Hernandez INNER EAR [...] nursing note reviewed. Exam conducted with a chicken cutter present. Vitals: Estimated body mass index is [...] of: PRAVIN Dumont documented in this encounter [facility] 06-02-2023 History of Present illness Narrative Reason for Appointment: Patient ID: Jessee Almodovar is a 33 y.o. female who presents for No chief complaint on file. Patient presents today via telephone call for a telehealth appointment. Patients Phone #: [phone] (mobile) Current Medications: has a current medication [...] or as needed. [facility] Documented by Guillaume Vasquez DO on behalf of: Guillaume Vasquez DO documented in this encounter [facility] 05-02-2023 Miscellaneous Notes [address] [facility] [id number] Patient: Jessee Almodovar Date of : 1990 Encounter Date: 05/02/2023 History of Present Illness/Psychiatric Review of Symptoms/Medical Review of Systems: Video Visit via Real-time Synchronous Audiovisual [facility] [address] [place] [address] Patient Location: patient's office in [place], [place] Video Visit Consent Statement: I discussed [...] that there are some limitations compared to [id number] evaluations. The patient consented to the presence of additional virtual and/or in-person participants. We elected to proceed. Jessee is a 33 y.o. female, established patient, and is logged on via [employer] for a follow-up video visit. HPI: Jessee reports she is feeling about the same since last visit. She was unable to tell the difference between taking the immediate release Adderall. She expresses frustrations with still feeling easily distractible. She has had a lot going on since the holidays. She enjoyed Paden and new year's with her immediate family. She traveled to [place] to see her parents, which went well. [...] Moderate episode of recurrent major depressive disorder ([facility]-HCC) Generalized anxiety disorder Attention deficit hyperactivity disorder [...] Moderate episode of recurrent major depressive disorder ([facility]-HCC) Generalized anxiety disorder Medication Changes: yes start [...] CNP, PMHNP-. BARAK De Leon 05/02/23 1746 [facility] 05-02[facility]2023 Progress note Formatting of t his note is different from the original. [address] [place] [id number] Patient: Jessee Almodovar Date of : 1990 Encounter Date: 05/02/2023 History of Present Illness/Psychiatric Review of Symptoms/Medical Review of Systems: Video Visit via Real-time Synchronous Audiovisual Provider Location: [facility] [address] [place] [address] Patient Location: patient's office in [place], [place] Video Visit Consent Statement: I discussed [...] that there are some limitations compared to ksna-[id number] evaluations. The patient consented to the presence of additional virtual and/or in-person participants. We elected to proceed. Jessee is a 33 y.o. female, established patient, and is logged on via [employer] for a follow-up video visit. HPI: Jessee reports she is feeling about the same since last visit. She was unable to tell the difference between taking the immediate release Adderall. She expresses frustrations with still feeling easily distractible. She has had a lot going on since the holidays. She enjoyed Paden and new year's with her immediate family. She traveled to [place] to see her parents, which went well. [...] CNP, PMHNP-. BARAK De Leon 05/02/23 1746 [facility]25[facility]23 Instructions Tiana Cronin PA-C - 02/25/2023 1:56 PM EST Images from the original note were not included. MRI right hip Home exercises Continue with NSAIDS CSI right hip- may repeat in 3 months if needed documented in this encounter [facility] 02-25-2023 Note HNO ID: [id number] Author: Rosas Mckinney MD Service: ? Author [...] given from AAOS (more content not included)... [facility] 02-25-2023 History of Present illness Narrative [...] trochanteric bursa Informed Consent Consent Obtained: Verbal [place] Protocol A moment to CARE was completed. [...] Time: 10:49 PM documented in this encounter [facility] 02-20-2023 History of Present illness Narrative Radiology [...] 2023 8:45 AM documented in this encounter [facility] 02-20-2023 Note HNO ID: [id number] Author: Kathrine Smith RT(R) Service: ? Author [...] RT Francisco(R) February 20, 2023 8:45 AM [facility] 02-17-2023 Miscellaneous Notes Jourdan Atkins, My [...] like. Thanks, Td. documented in this encounter [facility] 08-01-2022 History of Present illness Narrative Radiology [...] 2022 9:04 AM documented in this encounter [facility] 07-10-2022 Evaluation note Encounter Date Diagnosis Assessment Notes Jun, Constipation (ICD-10 - K59.00) Jun, Change in bowel habits (ICD-10 - R19.4) Jun, Diarrhea (ICD-10 - R19.7) Patient to start Align probiotic. Jun, Bloating (ICD-10 - R14.0) [employer] Other 02-05-2023 Hospital Discharge instructions Patient Education 05/26/2022 10:06:58 Strep Throat, Adult, Tvqq-ld-Nego Strep Throat, Adult Strep throat is an [...] Follow these instructions at home: Medicines Take iieo-oxr-svbvttt and prescription medicines only as told by [...] 09/23/2008 Document Revised: 06/25/2019 Document Reviewed: 06/25/2019 [employer] Patient Education 2020 [employer]. 05/26/2022 10:06:56 BMI for Adults BMI for [...] height. This can be done either in [place] ([place] or metric measurements. Note that charts are available to help you find your BMI quickly and easily without having to do these calculations yourself. To calculate your BMI in [place] ([place] measurements, your health care provider will: [...] medical problems. BMI can be measured using Moldovan measurements or metric measurements. To interpret your [...] 12/17/2004 Document Revised: 03/20/2018 Document Reviewed: 02/18/2018 [employer] Patient Education [employer]. 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 She states she underwent a CT scan [...] abdominal pain with planned GI followup, as instrument person workup so far is unremarkable. Patient does [...] being sent back to Roni Dumas via facsimile/[employer] Maintenance Person or Chart CC for [facility] Providers. Rosas Mckinney MD Traveling Operator, Orthopaedic Surgery Division of Musculoskeletal Oncology [facility] Evaluation + Plan note Extracted from: Title:ED Note Author:Jose BALL, Mohan Diamond te:02/23/22 Sprain of left foot (S93.602 A: Unspecified sprain of left foot, initial encounter) Orders: Crutches Elastic Bandage Application XR Foot 3+ Views Left [facility]11-05-2022 Hospital Discharge instructions Patient Education 02/23/2022 [...] fully hardened. This may takeseveral hours. Take ccqu-lcb-wllikvi and prescription medicines only as told by [...] 09/27/2002 Document Revised: 04/11/2018 Document Reviewed: 04/11/2018 [employer] Patient Education 2020 [employer]. 02/23/2022 11:07:01 How to Use Cold Therapy, Iosb-nx-Bteb How to Use Cold Therapy Cold therapy, [...] 09/23/2008 Document Revised: 01/04/2019 Document Reviewed: 01/04/2019 [employer] Patient Education 2020 [employer]. 02/23/2022 11:07:01 Elastic Bandage and RICE Therapy [...] limityour activities and whether you should start firxu-ao-rzynxx exercises for your injury. Ice Ice your [...] 09/27/2002 Document Revised: 12/26/2017 Document Reviewed: 12/26/2017 [employer] Patient Education 2020 [employer]. Follow Up Care 02/23/2022 09:05:48 With:CHELSEA KRAUS Address: [employer] [address] [place], [place] [id number]- Business (1) When:02/26/2022 10:46:43 Comments:Follow-up with your primary care provider in 3 to 5 days. If symptoms worsen, do not improve, or new symptoms arise please report back to emergency department for further evaluation. [facility]10-[facility] History of Present illness Narrative* Kathrine [...] 18, 2022 3:09 PM [facility] Nurse Note* Lillie Smith - 11/08/2021 11:25 AM EDT UA performed as ordered. Lillie Smith documented in this encounter[facility]06-16-2022 History of Present illness Narrative* Macy Jones APRN.YOLA - 10/04/2021 3:36 PM EDT Physical documented in this encounter[facility]health05-[facility]-2016 History general Narrative - Reported* Type Description Date Medical History Bernardo's thyroiditis Medical History Post- depression 2019 Surgical History D & C d/t miscarriage 08/2015 Surgical History LEEP 2012 Hospitalization History child [employer] Other Evaluation note* Diagnosis Acute bilateral low back pain with bilateral sciatica- Primary documented in this encounter [facility] note* Diagnosis Pelvic pain- Primary [facility]* Diagnosis Dysuria- Primary [facility]* Diagnosis Dysuria- Primary documented in this encounter [facility] note* Diagnosis Unspecified hypothyroidism- Primary [facility]* Diagnosis Lytic bone lesion of femur- Primary [facility]* Diagnosis Moderate episode of recurrent major depressive disorder (HCC)- Primary [facility]* Diagnosis Unspecified hypothyroidism- Primary Essential hypertension, malignant Lipids blood increased Other and unspecified hyperlipidemia Vegans' anemia Other vitamin B12 deficiency anemia [facility]* Diagnosis Lytic bone lesion of femur- Primary [facility]* Diagnosis Lytic bone lesion of femur- Primary Greater trochanteric bursitis of right hip Enthesopathy of hip region Chronic pain of right hip Chronic low back pain, unspecified back pain laterality, unspecified whether sciatica present Pain of right hip Bone lesion Disorder of bone and cartilage, unspecified [facility]* Diagnosis Attention deficit hyperactivity disorder (ADHD), predominantly 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 (CMS-HCC) Generalized anxiety disorder [facility] Diagnosis Irregular menses- Primary Irregular menstrual cycle [facility] Lytic bone lesion of femur documented in this encounter [facility]* Diagnosis Lytic bone lesion of femur documented in this encounter [facility]* Diagnosis Lytic bone lesion of femur documented in this encounter [facility]* Diagnosis 33 weeks gestation of Third trimester state, incidental Low iron Unspecified iron deficiency anemia Nonintractable headache, unspecified chronicity pattern, unspecified headache type Constipation, unspecified constipation type documented in this encounter [facility] Narrative No data available for this section [facility]* Attachments The following attachments cannot be sent through Care Everywhere. * Methylphenidate, ADULT (Moldovan) documented in [facility] note No data available for this section [facility] HospitalReason for referral (narrative)* Diagnostic Procedure Only (Routine) - Pending Review Specialty Diagnoses / Procedures Referred By Contac t Referred To Contact XR IMAGING Diagnoses Lytic bone lesion of femur Procedures XR HIP GENERAL 3V PELV/AP/LAT RIGHT RADEX HIP UNILATERAL WITH PELVIS 2-3 VIEWS Rosas Mckinney MD [address] [place] [address] Xr Imaging Referral ID Status Reason Start Date Expiration Date Visits Requested Visits Authorized [id number] Pending Review Auto-Generat ed Referral 08/26/2022 03/28/2023 1 1 [facility] for referral (narrative)* Diagnostic Procedure Only (Routine) - Pending Review Specialty Diagnoses / Procedures Referred By Contac t Referred To Contact XR IMAGING Diagnoses Lytic bone lesion of femur Procedures XR HIP GENERAL 3V PELV/AP/LAT RIGHT RADEX HIP UNILATERAL WITH PELVIS 2-3 VIEWS Tiana Cronin PA-C [address] [place] [address] Xr Imaging [place] [address] Referral ID Status Reason Start Date Expiration Date Visits Requested Visits Authorized [id number] Pending Review Auto-Generat ed Referral 03/18/2024 1 1 [facility] for referral (narrative)* Diagnostic Procedure Only (Routine) - Closed Specialty Diagnoses / Procedures Referred By Contac t Referred To Contact XR IMAGING Diagnoses Lytic bone lesion of femur Procedures XR HIP GENERAL 3V PELV/AP/LAT RIGHT RADEX HIP UNILATERAL WITH PELVIS 2-3 VIEWS Roni Dumas MD [address] [facility] [place] [address] [place] [address] Referral ID Status Reason Start Date Expiration Date V isits Requested Visits Authorized [id number] Closed Auto-Generate d Referral 02/17/2023 03/18/2024 1 1 [facility] for referral (narrative)* Diagnostic Procedure Only (Routine) - Closed Specialty Diagnoses / Procedures Referred By Contac t Referred To Contact XR IMAGING Diagnoses Lytic bone lesion of femur Procedures XR HIP GENERAL 3V PELV/AP/LAT RIGHT RADEX HIP UNILATERAL WITH PELVIS 2-3 VIEWS Rsoas Mckineny MD [address] [facility] [address] [place] [id number] [place] [address] Referral ID Status Reason Start Date Expiration Date V isits Requested Visits Authorized [id number] Closed Auto-Generate d Referral 08/26/2022 03/28/2023 1 1 [facility] for referral (narrative)* Diagnostic Procedure Only (Routine) - Closed Specialty Diagnoses / Procedures Referred By Contac t Referred To Contact XR IMAGING Diagnoses Lytic bone lesion of femur Procedures XR HIP GENERAL 3V PELV/AP/LAT RIGHT RADEX HIP UNILATERAL WITH PELVIS 2-3 VIEWS Roni Dumas MD [address] [facility] [place] [address] [place] [address] Referral ID Status Reason Start Date Expiration Date V isits Requested Visits Authorized [id number] Closed Auto-Generate d Referral 02/18/2022 03/20/2023 1 1 [facility] Reason for Referral Specialty Diagnoses / Procedures Referred By Contac t Referred To Contact [facility] Diagnoses Acute bilateral low back pain with bilateral sciatica Procedures CONSULT TO PHYSICAL THERAPY PHYSICAL THERAPY EVALUATION HIGH COMPLEX 45 MINS Macy Jones, LAKISHA.RN FLOAT [address] [place] [address] [facility] [place] [address] [place] [address] Referral ID Status Reason Start Date Expiration Date Visits Requested Visits Authorized [id number] Pending Review Auto-Generat ed Referral 10/04/2021 10/04/2022 1 1 Specialty Diagnoses / Procedures Referred By Contac t Referred To Contact MR IMAGING Diagnoses Greater trochanteric bursitis of right hip Chronic pain of right hip Pain of right hip Bone lesion Procedures MRI HIP WO IVCON RIGHT MRI ANY JT LOWER EXTREM W/O CONTRAST MATRTiana Beard PA-C [address] [place] [address] Mr Imaging [facility] Referral ID Status Reason Start Date Expiration Date Visits Requested Visits Authorized [id number] Authorized Auto-Generat ed Referral 02/25/2023 03/26/2024 1 [...] or prosecute any alcohol or drug abuse patient.[facility] the event this information is protected by the Federal Confidentiality of Alcohol and Drug Abuse Patient Records regulations: The Federal rules restrict any use of the information to criminally investigate or prosecute any alcohol or drug abuse patient.[facility] the event this information is protected by the Federal Confidentiality of Alcohol and Drug Abuse Patient Records regulations: The Federal rules restrict any use of the information to criminally investigate or prosecute any alcohol or drug abuse patient.[facility] the event this information is protected by the Federal Confidentiality of Alcohol and Drug Abuse Patient Records regulations: The Federal rules restrict any use of the information to criminally investigate or prosecute any alcohol or drug abuse patient.[facility] the event this information is protected by the Federal Confidentiality of Alcohol and Drug Abuse Patient Records regulations: The Federal rules restrict any use of the information to criminally investigate or prosecute any alcohol or drug abuse patient.[facility] the event this information is protected by the Federal Confidentiality of Alcohol and Drug Abuse Patient Records regulations: The Federal rules restrict any use of the information to criminally investigate or prosecute any alcohol or drug abuse patient.[facility] the event this information is protected by the Federal Confidentiality of Alcohol and Drug Abuse Patient Records regulations: The Federal rules restrict any use of the information to criminally investigate or prosecute any alcohol or drug abuse patient.[facility] the event this information is protected by the Federal Confidentiality of Alcohol and Drug Abuse Patient Records regulations: The Federal rules restrict any use of the information to criminally investigate or prosecute any alcohol or drug abuse patient.[facility] the event this information is protected by the Federal Confidentiality of Alcohol and Drug Abuse Patient Records regulations: The Federal rules restrict any use of the information to criminally investigate or prosecute any alcohol or drug abuse patient.[facility] the event this information is protected by the Federal Confidentiality of Alcohol and Drug Abuse Patient Records regulations: The Federal rules restrict any use of the information to criminally investigate or prosecute any alcohol or drug abuse patient.[facility] the event this information is protected by the Federal Confidentiality of Alcohol and Drug Abuse Patient Records regulations: The Federal rules restrict any use of the information to criminally investigate or prosecute any alcohol or drug abuse patient.[facility] the event this information is protected by the Federal Confidentiality of Alcohol and Drug Abuse Patient Records regulations: The Federal rules restrict any use of the information to criminally investigate or prosecute any alcohol or drug abuse patient.[facility] the event this information is protected by the Federal Confidentiality of Alcohol and Drug Abuse Patient Records regulations: The Federal rules restrict any use of the information to criminally investigate or prosecute any alcohol or drug abuse patient.[facility] Patient Care team informatio n (unrecognized section and content) Group President Relationship Specialty Start Date End Date Anupama Brown DO [address] [place] [address] PCP - General Family Medicine 07/25/22 Emile Mesa MD [address] [address] Gastroenterology 07/25/22 Guillaume Vasquez, DO [address] [place] [address] [place] [address] DIRECTOR IT PROJECT 07/25/22 Group President Relationship Specialty Start Date End Date Anupama Brown DO [address] [place] [address] PCP - General Family Medicine 07/25/22 Emile Mesa MD [address] [place] [address] Gastroenterology 07/25/22 Guillaume Vasquez, DO [address] [place] [address] DIRECTOR IT PROJECT 07/25/22 Group President Relationship Specialty Start Date End Date Anupama Brown, DO [address] [place] [address] PCP - General Family Medicine 07/25/22 Emile Mesa MD [address] [place] [address] Gastroenterology 07/25/22 Guillaume Vasquez DO [address] [place] [address] DIRECTOR IT PROJECT 07/25/22 Group President Relationship Specialty Start Date End Date Anupama Brown, DO [address] [place] [address] PCP - General Family Medicine 07/25/22 Emile Mesa MD [address] [place] [address] Gastroenterology 07/25/22 Guillaume Vasquez DO [address] [place] [address] DIRECTOR IT PROJECT 07/25/22 Group President Relationship Specialty Start Date End Date EfraChelsea mosqueda DO [address] [place] [address] PCP - General Family Medicine 07/02/19 Group President Relationship Specialty Start Date End Date Anupama Brown MD [address] [place] [id number] PCP - General Family Medicine 03/04/23 Group President Relationship Specialty Start Date End Date Anupama Brown MD [address] [place] [id number] PCP - General Family Medicine 03/04/23 Group President Relationship Specialty Start Date End Date Anupama Brown DO [address] [place] [address] PCP - General Family Medicine 07/25/22 Emile Mesa MD [address] [place] [address] Gastroenterology 07/25/22 Guillaume Vasquez DO [address] [place] [address] [place] [address] Implementation Director 07/25/22 Group President Relationship Specialty Start Date End Date Anupama Brown DO [address] [place] [address] PCP - General Family Medicine 07/25/22 Emile Mesa MD [address] [place] [address] Gastroenterology 07/25/22 Guillaume Vasquez DO [address] [place] [address] [place] [address] Implementation Director 07/25/22 Group President Relationship Specialty Start Date End Date Anupama Brown MD [address] [place] [address] PCP - General Family Medicine 03/04/23 Group President Relationship Specialty Start Date End Date Anupama Brown MD [address] [place] [address] PCP - General Family Medicine 03/04/23 Group President Relationship Specialty Start Date End Date Anupama Brown MD [address] [place] [address] PCP - General Family Medicine 03/04/23 Reason for Visit (unrecogniz ed section and content) Reason Comments New Pain Tumor/Mass Specialty Diagnoses / Procedures Referred By Contac t Referred To Contact Orthopedics Diagnoses Lytic bone lesion of femur Procedures CONSULT TO ORTHOPAEDICS OFFICE/OUTPATIENT NEW HIGH MDM 60-74 MINUTES Roni Dumas MD [facility] [place] [address] Referral ID Status Reason Start Date Expiration Date V isits Requested Visits Authorized [id number] Closed PCP Requested Referral 02/18/2022 02/18/2023 1 1 Reason Comments New Pain Reason Comments Radio Gen RMP Specialty Diagnoses / Procedures Referred By Contac t Referred To Contact XR IMAGING Diagnoses Lytic bone lesion of femur Procedures XR HIP GENERAL 3V PELV/AP/LAT RIGHT RADEX HIP UNILATERAL WITH PELVIS 2-3 VIEWS Roni uDmas MD [facility] [place] [address] [place] [address] Referral ID Status Reason Start Date Expiration Date V isits Requested Visits Authorized [id number] Closed Auto-Generate d Referral 02/17/2023 03/18/2024 1 1 Specialty Diagnoses / Procedures Referred By Bry pittman Referred To Contact XR IMAGING Diagnoses Lytic bone lesion of femur Procedures XR HIP GENERAL 3V PELV/AP/LAT RIGHT RADEX HIP UNILATERAL WITH PELVIS 2-3 VIEWS Rosas Mckinney MD [address] [place] [address] [place] [address] Referral ID Status Reason Start Date Expiration Date V isits Requested Visits Authorized [id number] Closed Auto-Generate d Referral 08/26/2022 03/28/2023 1 1 Referral ID Status Reason Start Date Expiration Date V isits Requested Visits Authorized [id number] Closed Auto-Generate d Referral 02/18/2022 03/20/2023 1 1 Reason Comments Routine Visit INFORMATION SOURCE (unrecogn ized section and content) DATE CREATED AUTHOR 05/08/2022 [facility] DATE CREATED AUTHOR AUTHOR'S ORGANIZ ATION 05/26/[address] [facility] DATE CREATED AUTHOR AUTHOR'S ORGANIZ ATION 05/04/2023 [facility] DATE CREATED AUTHOR AUTHOR'S ORGANIZ ATION 06/06/2023 [facility] DATE CREATED AUTHOR AUTHOR'S ORGANIZ ATION 10/17/2023 [facility] DATE CREATED AUTHOR AUTHOR'S ORGANIZ ATION 01/28/2024 [facility] DATE CREATED AUTHOR AUTHOR'S ORGANIZ ATION 2024 [facility] FOR RECORDS PERTAINING TO PATIENTS WHO [...] BE BASED ON THE PRIMARY CLINICAL RECORDS. [employer] provides no warranty or guarantee of the accuracy or completeness of information in this document.
[2024-02-11 19:05] VITALS: BP 142/86; PULSE 92
[2024-02-11 19:29] VITALS: BP 129/74; PULSE 86; TEMP 37.1
== END 2024-02-11 19:34 | disposition home or self-care (01) ==
LOC: FBCO 06:59 → FBC 18:57
PROVIDERS: Visit Provider Obstetrics & Gynecology
DX: O36.63X0 Maternal care for excessive fetal growth, third trimester, not applicable or unspecified (principal); Z3A.35 35 weeks gestation of pregnancy
CPT/HCPCS: 59025

== ENCOUNTER 2024-02-14 06:48 | Outpatient (OUT) | payer OTHER, SELFPAY ==
--- NOTE | 2024-02-14 | US_ITS ---
[address] [address] Patient Name: JESSEE JEFFERS MRN: [id number] date: 1990 Sex: F Assigned Patient Location: [facility] Current Patient Location: Accession/Order Number: [id number] Exam Date: 02/14/2024 13:15 Report Date: 02/16/2024 04:32 At the request of: TEE RUBIN Procedure: US OB BPP w non-stress EXAMINATION: US OB BPP w non-stress HISTORY:EXCESSIVE GROWTH 036.63X0 COMPARISON: Ultrasound OB biophysical 02/07/2024 TECHNIQUE: Ultrasound biophysical profile was performed in the radiology department. BREATHING MOVEMENTS: 2 GROSS BODY MOVEMENTS: 2 TONE: 2 QUALITATIVE AMNIOTIC FLUID VOLUME: 2 PRESENTATION: CEPHALIC HEART RATE: 115.88 bpm AMNIOTIC FLUID VOLUME: 25.30 cm GESTATIONAL AGE: 36 weeks 2 days US/US OB BPP w non-stress IMPRESSION: Total biophysical profile score: 8 Electronically authenticated by: JENNIFER HARTLEY Date: 02/16/2024 04:32
--- OUTSIDE RECORDS SUMMARY | 2024-02-14 06:51 | XMS_ITS | CCD ---
Author Organization [facility] Care Team Providers Care Insurance Territory Manager Name Role Phone Unavailable Primary Care [...] Unavailable PEDRO, DR OLIVEIRA Primary Care Unavailable INDEPENDENCE, DR EMELIA Luna Consulting Unavailable PEDRO, DR OLIVEIRA Consulting Unavailable Chayo Anne Attending Unavailable Roxanne MOSLEY Attending Unavailable [place]akatlyn, Imad Unavailable Anupama Brown DO Primary Care Provider Moshe PALOMINO Imkatlyn Unavailable Guillaume Vasquez DO Unavailable Anupama Brown DO Primary Care Provider Emile Mesa MD Unavailable Chelsea Kraus DO Primary Care Provider [phone] ASIF SCHAEFER Attending Unavailable CHELSEA KRAUS Referring [...] Attending Unavailable PEDRO, GUILLAUME Attending Unavailable PEDRO, GUILLAMUE Attending Unavailable KIN, FRANNY Attending Unavailable [facility] KEVIN, [facility] Primary Care Unavailabl e ABHYANKAR, RONI Referring Unavailable ROSAS MCKINNEY Attending Unavailable KEVIN, [facility] Primary Care Unavailabl e ABHYANKAR, RONI Referring Unavailable KEVIN, [facility] Care Unavailabl e KEVIN, [facility] Care Unavailabl e KEVIN, [facility] Care Unavailabl e PEDRO, GUILLAUME R Referring Unavailable KEVIN, [facility] Care Unavailabl e KIN, FRANNY L Referring Unavailable KEVIN, [facility] Care Unavailabl e PEDRO, GUILLAUME R Referring Unavailable KEVIN, [facility] Primary Care Unavailabl e KEVIN, [facility] Care Unavailabl e PEDRO, GUILLAUME R Referring Unavailable KEVIN, [facility] Unavailabl e KEVIN, [facility] Primary Care Unavailabl e ASIF SCHAEFER Referring Unavailable Medications Current Medications Medication Drug Class(es) Dates Sig (Normalized) Sig (Original) amoxicillin 500 mg oral capsule (1 source) Penicillin-class Antibacterial Start: 05-26-2022 End: 06-05-2022 take 1 capsule by mouth every twelve hours amoxicillin 500 mg Cap 500 mg = 1 cap(s), Oral, q12hr, X 10 day(s), # 20 cap(s), Refills(s) 0, Pharmacy: [facility], 172, cm, 05/26/22 9:34:00 EST, Height/Length Dosing, 83.6, kg, 05/26/22 9:34:00 EST, Weight Dosing Start Date: 05/26/22 Stop Date: 06/05/22 Status: Ordered aspirin 81 mg delayed release oral tablet (6 sources) Platelet Aggregation Inhibitor, Nonsteroidal Anti-inflammatory Drug [...] Active docusate sodium 100 mg oral capsule (5 sources) Start: 01-27-20 End: 02-26-20 24 take 1 capsule by mouth twice daily as needed for constipation docusate sodium (Colace) 100 MG capsule Indications: Constipation, unspecified constipation type Take 1 capsule (100 mg) by mouth 2 (two) times a day as needed for constipation 30 capsule 5 01/27/2024 02/26/2024 Active labetalol hydrochloride 100 mg oral tablet (6 sources) beta-Adrenergic Anais Start: 07-24-19 24 End: [...] medications magnesium oxide 400 mg oral tablet (5 sources) Start: End: take 1 tablet by [...] on above: Take 1 capsule by mo [facility] once daily. Wait 20-30 minutes before eating or taking other medications. Take 1 capsule by mo [facility] once daily in the morning, wait 20-30 minutes before eating or taking other medications Take 1 capsule by mo [facility] once daily. 20-30 minutes before eating or taking other medications Take 1 tablet by [facility] once daily in the morning, 20-30 minutes before eating or taking other medications Take 1 capsule by mo [facility] twice daily. PNV no.95/ferrous fum/folic ac ( ORAL) (8 sources) PNV no.95/ferrou s fum/folic ac ( ORAL) Take by mouth. Active PNV no.95/ferrou s fum/folic ac ( ORAL) Take by mouth. 0 Active Comment on above: Take by mouth. polysaccharide iron complex 391 mg oral capsule (5 sources) Start: 4 End: 5 take 1 [...] Status: Ordered MV-Min-Fe Fum-FA-DHA ( 1 PO) (9 sources) MV-Min- Fe Fum-FA-DHA ( 1 PO) [...] on above: Take 1 capsule by mo [facility] once daily. citalopram 20 mg [...] Comment on above: Take [address] capsule by [facility] twice daily. escitalopram 20 mg oral tablet [...] Comment on above: Take 1 tablet by [facility] once daily. fluconazole 150 mg oral tablet (8 sources) Azole Antifungal Start: 02-07-20 End: 02-26-20 take 1 tablet by mouth once fluconazole (DIFLUCAN) 150 mg tablet 1 (one) tablet by mouth one time dose 1 tablet 1 02/06/2022 02/25/2023 Discontinued Comment on above: 1 (one) tablet by [facility] one time dose hydrOXYzine hydrochloride 50 mg [...] Comment on above: Take 1 tablet by [facility] three times daily as needed. 10 ml [...] 02/25/2023 Discontinued Start: 08-23-2020 End: 02-25-2023 medroxyPROGESTERone (DEPO-MT OVERA) 150 mg/mL injection Indications: Excessive or [...] first trimester] Onset: 09-16-2023 Chronic Menstrual disorders (11 sources) Irregular periods; Translations: [Irregular menstruation, unspecified] [...] 05-26-2022 Episodic Other and delivery including normal (4 sources) Third trimester ; Translations: [Encounter for [...] [33 weeks gestation of ] 01-27-2024 Episodic Residual codes; unclassified (2 sources) Gestation period, 35 weeks; Translations: [35 weeks gestation of ] 02-10-2024 Episodic Spondylosis; intervertebral disc disorders; other back [...] Facil ity Urinalysis macro (dipstick) panel (U)on 02-10-2024 Bilirubin, UA Negative Negative - 4(70) +++ mg/dL [facility] Blood, UA Negative Negative - 50 Pepito/mcL [facility] Clarity, UA Clear [facility] Color, UA Yellow [facility] Glucose, UA Negative Negative - 2000(110) ++++ mg/dL [facility] Interpretation and review of laboratory results Normal [facility] Ketones, UA Negative Negative - 160(16) ++++ mg/dL [facility] Leukocytes, UA Negative Negative - 500+++ Ilia/mcL [facility] Nitrite, UA Negative Negative - Positive [facility] pH, UA 6.5 5 - 9 [facility] Protein, UA Negative Negative - 2000(20) ++++ mg/dL [facility] Spec Grav, UA 1.01 1 - 1.03 [facility] Urobilinogen, UA 0.2 0.2 - 12 mg/dL [facility] T4 Free SerPl-mCncon 024 Free T4 [Mass/Vol] 1.1 ng/dL Normal 0.9-1.7 [facility] Comment on above: Order Comment: Speci men Type: BLOOD SPECIMEN Ordering Facility: [facility] [place] Address: [facility] [place] [place] [place] [address] Performed By: #### 3 016-3, 3024-7 #### [facility] CLIA [id number] [address] [place] [address] [place] TSH SerPl-aCncon 02-05-2024 TSH Qn 1.340 m[IU]/L Normal 0.270-4.200 [facility] Comment on above: Order Comment: Speci men Type: BLOOD SPECIMEN Ordering Facility: [facility] [place] Address: [facility] [place] [place] [place] [address] Result Comment: If t he patient is , TSH reference range varies by gestational period: First Trimester (weeks 9-12): 0.180-2.990 mIU/L Second Trimester: 0.110-3.980 mIU/L Third Trimester: 0.480-4.710 mIU/L Manuel Grayson et al. A Practical Approach for the Verifications and Determination of Site- and Trimester-Specific Reference Intervals for Thyroid Function tests in . Thyroid, 2019:29:3:412-420. Emanuel Nassar et al. 2017 Guidelines of the [place] [employer] Association for the Diagnosis and Management of Thyroid Disease during and the . Thyroid, 2017:27:3:315-389. Performed By: #### 3 016-3, 3024-7 #### [facility] CLIA [id number] [address] [place] [address] [place] Urinalysis macro (dipstick) panel (U)on 01-27-2024 Bilirubin, UA Negative Negative - 4(70) +++ mg/dL [facility] Blood, UA Negative Negative - 50 Pepito/mcL [facility] Clarity, UA Clear [facility] Color, UA Yellow [facility] Glucose, UA Negative Negative - 2000(110) ++++ mg/dL [facility] Interpretation and review of laboratory results Normal [facility] Ketones, UA Negative Negative - 160(16) ++++ mg/dL [facility] Leukocytes, UA Negative Negative - 500+++ Ilia/mcL [facility] Nitrite, UA Negative Negative - Positive [facility] pH, UA 5.5 5 - 9 [facility] Protein, UA Negative Negative - 2000(20) ++++ mg/dL [facility] Spec Grav, UA 1.020 1 - 1.03 [facility] Urobilinogen, UA 0.2 0.2 - 12 mg/dL [facility] CBC W Auto Differential pane l (Bld)on 01-19-2024 Basophils (Bld) [#/Vol] 10*3/uL Normal <0.11 [facility] Comment on above: Order Comment: Speci men Type: BLOOD SPECIMEN Ordering Facility: External Submitter Address: , , Performed By: #### 5 7021-8 #### [facility] CLIA [id number] [address] [place] [address]13 Basophils/100 WBC (Bld) 0.2 % Normal [facility] Comment on above: Order Comment: Speci men Type: BLOOD SPECIMEN Ordering Facility: [facility] Address: , , Performed By: #### 5 7021-8 #### [facility] CLIA [id number] [address] [place] [address] 40017 Differential cell count method Nom (Bld) Auto Normal [facility] Comment on above: Order Comment: Speci men Type: BLOOD SPECIMEN Ordering Facility: [facility] Address: , , Performed By: #### 5 7021-8 #### [facility] CLIA [id number] [address] [place] [address] 44319 Eosinophils (Bld) [#/Vol] 0.06 10*3/uL Normal <0.46 [facility] Comment on above: Order Comment: Speci men Type: BLOOD SPECIMEN Ordering Facility: External Sub[facility] Address: , , Performed By: #### 5 7021-8 #### [facility] CLIA [id number] [address] [place] [address] 19535 Eosinophils/100 WBC (Bld) 0.6 % Normal [facility] Comment on above: Order Comment: Speci men Type: BLOOD SPECIMEN Ordering Facility: External [facility] Address: , , Performed By: #### 5 7021-8 #### [facility] CLIA [id number] [address] [place] [address] 60457 Erythrocyte distribution width (RBC) [Ratio] 13.3 % Normal 11.5-15.0 [facility] Comment on above: Order Comment: Speci men Type: BLOOD SPECIMEN Ordering Facility: [facility] Sub[facility] Address: , , Performed By: #### 5 7021-8 #### [facility] CLIA [id number] [address] [place] [address] 53255 Hematocrit (Bld) [Volume fraction] 32.8 % Low 36.0-46.0 [facility] Comment on above: Order Comment: Speci men Type: BLOOD SPECIMEN Ordering Facility: External Sub[facility] Address: , , Performed By: #### 5 7021-8 #### [facility] CLIA [id number] [address] [place] [address] 32814 Hemoglobin (Bld) [Mass/Vol] 10.7 g/dL Low 11.5-15.5 [facility] Comment on above: Order Comment: Speci men Type: BLOOD SPECIMEN Ordering Facility: External [facility] Address: , , Performed By: #### 5 7021-8 #### [facility] CLIA [id number] [address] [place] [address] 79862 Immature granulocytes (Bld) [#/Vol] 0.05 10*3/uL Normal <0.10 [facility] Comment on above: Order Comment: Speci men Type: BLOOD SPECIMEN Ordering Facility: External Submitter Address: , , Performed By: #### 5 7021-8 #### [facility] CLIA [id number] [address] [place] [address] 17691 Immature granulocytes/100 WBC (Bld) 0.5 % Normal [facility] Comment on above: Order Comment: Speci men Type: BLOOD SPECIMEN Ordering Facility: [facility] Address: , , Performed By: #### 5 7021-8 #### [facility] CLIA [id number] [address] [place] [address] 60410 Lymphocytes (Bld) [#/Vol] 1.55 10*3/uL Normal 1.00-4.00 [facility] Comment on above: Order Comment: Speci men Type: BLOOD SPECIMEN Ordering Facility: [facility] Address: , , Performed By: #### 5 7021-8 #### [facility] CLIA [id number] [address] [place] [address] 12999 Lymphocytes/100 WBC (Bld) 15.1 % Normal [facility] Comment on above: Order Comment: Speci men Type: BLOOD SPECIMEN Ordering Facility: [facility] Address: , , Performed By: #### 5 7021-8 #### [facility] CLIA [id number] [address] [place] [address] 34193 MCH (RBC) [Entitic mass] 27.8 pg Normal 26.0-34.0 [facility] Comment on above: Order Comment: Speci men Type: BLOOD SPECIMEN Ordering Facility: [facility] Address: , , Performed By: #### 5 7021-8 #### [facility] CLIA [id number] [address] [place] [address] 27547 MCHC (RBC) [Mass/Vol] 32.6 g/dL Normal 30.5-36.0 [facility] Comment on above: Order Comment: Speci men Type: BLOOD SPECIMEN Ordering Facility: [facility] Address: , , Performed By: #### 5 7021-8 #### [facility] CLIA [id number] [address] [place] [address] 67149 MCV (RBC) [Entitic vol] 85.2 fL Normal 80.0-100.0 [facility] Comment on above: Order Comment: Speci men Type: BLOOD SPECIMEN Ordering Facility: [facility] Address: , , Performed By: #### 5 7921-8 #### [facility] CLIA [id number] [address] [place] [address] 21545 Monocytes (Bld) [#/Vol] 0.77 10*3/uL Normal <0.87 [facility] Comment on above: Order Comment: Speci men Type: BLOOD SPECIMEN Ordering Facility: [facility] Address: , , Performed By: #### 5 7021-8 #### [facility] CLIA [id number] [address] [place] [address] 28475 Monocytes/100 WBC (Bld) 7.5 % Normal [facility] Comment on above: Order Comment: Speci men Type: BLOOD SPECIMEN Ordering Facility: [facility] Address: , , Performed By: #### 5 7021-8 #### [facility] CLIA [id number] [address] [place] [address] 27534 Neutrophils (Bld) [#/Vol] 7.81 10*3/uL High 1.45-7.50 [facility] Comment on above: Order Comment: Speci men Type: BLOOD SPECIMEN Ordering Facility: [facility] Address: , , Performed By: #### 5 7021-8 #### [facility] CLIA [id number] [address] [place] [address] Neutrophils/100 WBC (Bld) 76.1 % Normal [facility] Comment on above: Order Comment: Speci men Type: BLOOD SPECIMEN Ordering Facility: [facility] Address: , , Performed By: #### 5 7021-8 #### [facility] CLIA [id number] [address] [place] [address] 78745 Nucleated RBC (Bld) [#/Vol] 10*3/uL Normal <0.01 [facility] Comment on above: Order Comment: Speci men Type: BLOOD SPECIMEN Ordering Facility: External [facility] Address: , , Performed By: #### 5 7021-8 #### [facility] CLIA [id number] [address] [place] [address] Nucleated RBC/100 WBC (Bld) [Ratio] 0.0 /100 WBC Normal [facility] Comment on above: Order Comment: Speci men Type: BLOOD SPECIMEN Ordering Facility: External [facility] Address: , , Performed By: #### 5 7021-8 #### [facility] CLIA [id number] [address] [place] [address] 84164 Platelet mean volume (Bld) [Entitic vol] 11.3 fL Normal 9.0-12.7 [facility] Comment on above: Order Comment: Speci men Type: BLOOD SPECIMEN Ordering Facility: External [facility] Address: , , Performed By: #### 5 7021-8 #### [facility] CLIA [id number] [address] [place] [address] Platelets (Bld) [#/Vol] 172 10*3/uL Normal 150-400 [facility] Comment on above: Order Comment: Speci men Type: BLOOD SPECIMEN Ordering Facility: External [facility] Address: , , Performed By: #### 5 7021-8 #### [facility] CLIA [id number] [address] [place] [address] RBC (Bld) [#/Vol] 3.85 10*6/uL Low 3.90-5.20 [facility] Comment on above: Order Comment: Speci men Type: BLOOD SPECIMEN Ordering Facility: External [facility] Address: , , Performed By: #### 5 7021-8 #### [facility] CLIA [id number] [address] [place] [address] WBC (Bld) [#/Vol] 10.26 10*3/uL Normal 3.70-11.00 [facility] Comment on above: Order Comment: Speci men Type: BLOOD SPECIMEN Ordering Facility: External Submitter Address: , , Performed By: #### 5 7021-8 #### [facility] CLIA [id number] [address] [place] [address] 44308 T4 Free SerPl-mCncon 024 Free T4 [Mass/Vol] 0.9 ng/dL Normal 0.9-1.7 [facility] Comment on above: Order Comment: Speci men Type: BLOOD SPECIMEN Ordering Facility: [facility] [place] Address: [address] [place] [address] , [place] [address] Performed By: #### G LTGST #### [facility] CLIA [id number] [address] [place] [address] [place] TSH SerPl-aCncon 01-05-2024 TSH Qn 1.220 m[IU]/L Normal 0.270-4.200 [facility] Comment on above: Order Comment: Speci [...] Nassar et al. 2017 Guidelines of the [place] Thy[employer] Association for the Diagnosis and Management of Thyroid Disease during and the . Thyroid, 2017:27:3:315-389. Performed By: #### 5 7021-8 #### [facility] CLIA [id number] [address] [place] [address] 54919 T4 Free SerPl-mCncon 024 Free T4 [Mass/Vol] 1.1 ng/dL Normal 0.9-1.7 [facility] Comment on above: Order Comment: Speci men Type: BLOOD SPECIMEN Ordering Facility: [facility] [place] Address: [facility] [address] [place] [address] Performed By: #### G LTGST #### [facility] CLIA [id number] [address] [place] [address] [place] TSH SerPl-aCncon 12-08-2023 TSH Qn 0.607 m[IU]/L Normal 0.270-4.200 [facility] Comment on above: Order Comment: Speci men Type: BLOOD SPECIMEN Ordering Facility: [facility] [place] Address: [facility] [address] [place] [address] Result Comment: If t he patient is , TSH reference range varies by gestational period: First Trimester (weeks 9-12): 0.180-2.990 mIU/L Second Trimester: 0.110-3.980 mIU/L Third Trimester: 0.480-4.710 mIU/L Manuel Grayson et al. A Practical Approach for the Verifications and Determination of Site- and Trimester-Specific Reference Intervals for Thyroid Function tests in . Thyroid, 2019:29:3:412-420. Emanuel Nassar et al. 2017 Guidelines of the [place] Thy[employer] Association for the Diagnosis and Management of Thyroid Disease during and the . Thyroid, 2017:27:3:315-389. Performed By: #### G LTGST #### [facility] CLIA [id number] [address] [place] [address] [place] CBC W Auto Differential pane l (Bld)on 11-20-2023 Basophils (Bld) [#/Vol] 0.04 10*3/uL Normal <0.11 [facility] Comment on above: Order Comment: Speci men Type: BLOOD SPECIMEN Ordering Facility: [facility] [place] Address: [address] [place] [address] Performed By: #### 5 7021-8 #### [facility] CLIA [id number] [address] [place] [address] 61996 Basophils/100 WBC (Bld) 0.6 % Normal [facility] Comment on above: Order Comment: Speci men Type: BLOOD SPECIMEN Ordering Facility: [facility] [place] Address: [address] [place] [address] Performed By: #### 5 7021-8 #### [facility] CLIA [id number] [address] [place] [address] 29682 Differential cell count method Nom (Bld) Auto Normal [facility] Comment on above: Order Comment: Speci men Type: BLOOD SPECIMEN Ordering Facility: [facility] [place] Address: [address] [place] [address] Performed By: #### 5 7021-8 #### [facility] CLIA [id number] [address] [place] [address] 54568 Eosinophils (Bld) [#/Vol] 0.05 10*3/uL Normal <0.46 [facility] Comment on above: Order Comment: Speci men Type: BLOOD SPECIMEN Ordering Facility: [facility] [place] Address: [address] [place] [address] Performed By: #### 5 7021-8 #### [facility] CLIA [id number] [address] [place] [address] 82536 Eosinophils/100 WBC (Bld) 0.7 % Normal [facility] Comment on above: Order Comment: Speci men Type: BLOOD SPECIMEN Ordering Facility: [facility] Address: [address] [place] [address] Performed By: #### 5 7021-8 #### [facility] CLIA [id number] [address] [place] [address] 31263 Erythrocyte distribution width (RBC) [Ratio] 12.9 % Normal 11.5-15.0 [facility] Comment on above: Order Comment: Speci men Type: BLOOD SPECIMEN Ordering Facility: [facility] Address: [address] [place] [id number] Performed By: #### 5 7021-8 #### [facility] CLIA [id number] [address] [place] [address] 24880 Hematocrit (Bld) [Volume fraction] 35.0 % Low 36.0-46.0 [facility] Comment on above: Order Comment: Speci men Type: BLOOD SPECIMEN Ordering Facility: [facility] Address: [address] [place] [address] Performed By: #### 5 7021-8 #### [facility] CLIA [id number] [address] [place] [address] 97886 Hemoglobin (Bld) [Mass/Vol] 11.4 g/dL Low 11.5-15.5 [facility] Comment on above: Order Comment: Speci men Type: BLOOD SPECIMEN Ordering Facility: [facility] Address: [address] [place] [id number] Performed By: #### 5 7021-8 #### [facility] CLIA [id number] [address] [place] [address] 20153 Immature granulocytes (Bld) [#/Vol] 10*3/uL Normal <0.10 [facility] Comment on above: Order Comment: Speci men Type: BLOOD SPECIMEN [facility] [place] Address: [address] [place] [address] Performed By: #### 5 7021-8 #### [facility] CLIA [id number] [address] [place] [address] 05567 Immature granulocytes/100 WBC (Bld) 0.3 % Normal [facility] Comment on above: Order Comment: Speci men Type: BLOOD SPECIMEN Ordering Facility: [facility] [place] Address: [address] [place] [place] [address] Performed By: #### 5 7021-8 #### [facility] CLIA [id number] [address] [place] [address] 51424 Lymphocytes (Bld) [#/Vol] 1.25 10*3/uL Normal 1.00-4.00 [facility] Comment on above: Order Comment: Speci men Type: BLOOD SPECIMEN Ordering Facility: [facility] [place] Address: [address] [place] [address] Performed By: #### 5 7021-8 #### [facility] CLIA [id number] [address] [place] [address] 45269 Lymphocytes/100 WBC (Bld) 18.3 % Normal [facility] Comment on above: Order Comment: Speci men Type: BLOOD SPECIMEN [facility] Address: [address] [place] [address] Performed By: #### 5 7021-8 #### [facility] CLIA [id number] [address] [place] [address] 13097 MCH (RBC) [Entitic mass] 29.9 pg Normal 26.0-34.0 [facility] Comment on above: Order Comment: Speci men Type: BLOOD SPECIMEN Ordering Facility: [facility] [place] Address: [address] [place] [id number] Performed By: #### 5 7021-8 #### [facility] CLIA [id number] [address] [place] [address] 65407 MCHC (RBC) [Mass/Vol] 32.6 g/dL Normal 30.5-36.0 [facility] Comment on above: Order Comment: Speci men Type: BLOOD SPECIMEN [facility] Address: [address] [place] [address] Performed By: #### 5 7021-8 #### [facility] CLIA [id number] [address] [place] [address] MCV (RBC) [Entitic vol] 91.9 fL Normal 80.0-100.0 [facility] Comment on above: Order Comment: Speci men Type: BLOOD SPECIMEN Ordering Facility: [facility] Address: [address] [place] [address] Performed By: #### 5 7021-8 #### [facility] CLIA [id number] [address] [place] [address] 66372 Monocytes (Bld) [#/Vol] 0.52 10*3/uL Normal <0.87 [facility] Comment on above: Order Comment: Speci men Type: BLOOD SPECIMEN Ordering Facility: [facility] Address: [address] [place] [address] Performed By: #### 5 7021-8 #### [facility] CLIA [id number] [address] [place] [address] 73390 Monocytes/100 WBC (Bld) 7.6 % Normal [facility] Comment on above: Order Comment: Speci men Type: BLOOD SPECIMEN Ordering Facility: [facility] Address: [address] [place] [address] Performed By: #### 5 7021-8 #### [facility] CLIA [id number] [address] [place] [address] 97174 Neutrophils (Bld) [#/Vol] 4.94 10*3/uL Normal 1.45-7.50 [facility] Comment on above: Order Comment: Speci men Type: BLOOD SPECIMEN Ordering Facility: [facility] Address: [address] [place] [address] Performed By: #### 5 7021-8 #### [facility] CLIA [id number] [address] [place] [address] Neutrophils/100 WBC (Bld) 72.5 % Normal [facility] Comment on above: Order Comment: Speci men Type: BLOOD SPECIMEN Ordering Facility: [facility] Address: [address] [place] [address] Performed By: #### 5 7021-8 #### [facility] CLIA [id number] [address] [place] [address] Nucleated RBC (Bld) [#/Vol] 10*3/uL Normal <0.01 [facility] Comment on above: Order Comment: Speci men Type: BLOOD SPECIMEN Ordering Facility: [facility] Address: [facility] [address] [place] [address] Performed By: #### 5 7021-8 #### [facility] CLIA [id number] [address] [place] [address] 47431 Nucleated RBC/100 WBC (Bld) [Ratio] 0.0 /100 WBC Normal [facility] Comment on above: Order Comment: Speci men Type: BLOOD SPECIMEN Ordering Facility: [facility] Address: [address] [place] [address] Performed By: #### 5 7021-8 #### [facility] CLIA [id number] [address] [place] [address] 65638 Platelet mean volume (Bld) [Entitic vol] 11.4 fL Normal 9.0-12.7 [facility] Comment on above: Order Comment: Speci men Type: BLOOD SPECIMEN Ordering Facility: [facility] Address: [address] [place] [address] Performed By: #### 5 7021-8 #### [facility] CLIA [id number] [address] [place] [address] Platelets (Bld) [#/Vol] 167 10*3/uL Normal 150-400 [facility] Comment on above: Order Comment: Speci men Type: BLOOD SPECIMEN Ordering Facility: [facility] [place] Address: [address] [place] [address] Performed By: #### 5 7021-8 #### [facility] CLIA [id number] [address] [place] [address]1621 RBC (Bld) [#/Vol] 3.81 10*6/uL Low 3.90-5.20 [facility] Comment on above: Order Comment: Speci men Type: BLOOD SPECIMEN Ordering Facility: [facility] [place] Address: [address] [place] [address] Performed By: #### 5 7021-8 #### [facility] CLIA [id number] [address] [place] [address] 81026 WBC (Bld) [#/Vol] 6.82 10*3/uL Normal 3.70-11.00 [facility] Comment on above: Order Comment: Speci men Type: BLOOD SPECIMEN Ordering Facility: [facility] [place] Address: [address] [place] [address] Performed By: #### 5 7021-8 #### [facility] CLIA [id number] [address] [place] [address] 73984 GESTATIONAL GLUCOSE SCREEN, 1-HOUR, 50 GRAM, NON-FASTINGon 11-20-2023 Glucose [Mass/Vol] 97 mg/dL Normal 74-134 [facility] Comment on above: Order Comment: Speci men Type: BLOOD SPECIMEN Ordering Facility: [facility] [place] Address: [address] [place] [address] Result Comment: [facility] Congress of Obstetricians and Gynecologists (Alma/Adrián) guidelines state a gestational diabetes mellitus positive screen is made, in women not previously diagnosed with overt diabetes, when the 1 hr plasma glucose level is equal to or above 140 mg/dL. The [facility] and [facility] [place] recommends a 135 mg/dL cutoff. Performed By: #### G LTGST #### [facility] CLIA [id number] [address] [facility] [id number] [place] [address] [place] T4 Free SerPl-mCncon 024 Free T4 [Mass/Vol] 1.0 ng/dL Normal 0.9-1.7 [facility] Comment on above: Order Comment: Speci men Type: BLOOD SPECIMEN Ordering Facility: [facility] Address: , , Performed By: #### 5 7021-8 #### [facility] CLIA [id number] [address] [place] [address] TSH SerPl-aCncon 10-22-2023 TSH Qn 4.510 m[IU]/L High 0.270-4.200 [facility] Comment on above: Order Comment: Speci men Type: BLOOD SPECIMEN Ordering Facility: [facility] Address: , , Result Comment: If t he patient is , TSH reference range varies by gestational period: First Trimester (weeks 9-12): 0.180-2.990 mIU/L Second Trimester: 0.110-3.980 mIU/L Third Trimester: 0.480-4.710 mIU/L Manuel Grayson, et al. A Practical Approach for the Verifications and Determination of Site- and Trimester-Specific Reference Intervals for Thyroid Function tests in . Thyroid, 2019:29:3:412-420. Emanuel E, et al. 2017 Guidelines of the [place] Thyroid Association for the Diagnosis and Management of Thyroid Disease during and the . Thyroid, 2017:27:3:315-389. Performed By: #### 5 7021-8 #### [facility] CLIA [id number] [address] [place] [address] CBC W Auto Differential pane l (Bld)on 08-08-2023 Basophils (Bld) [#/Vol] 10*3/uL Normal <0.11 [facility] Comment on above: Order Comment: Roycei men Type: BLOOD SPECIMEN Ordering Facility: [facility] Address: , , Performed By: #### 5 7021-8 #### [facility] CLIA [id number] [address] [place] [address] Basophils/100 WBC (Bld) 0.3 % Normal [facility] Comment on above: Order Comment: Speci men Type: BLOOD SPECIMEN Ordering Facility: [facility] Address: , , Performed By: #### 5 7021-8 #### [facility] CLIA [id number] [address] [place] [address] 54227 Differential cell count method Nom (Bld) Auto Normal [facility] Comment on above: Order Comment: Speci men Type: BLOOD SPECIMEN Ordering Facility: [facility] Address: , , Performed By: #### 5 7021-8 #### [facility] CLIA [id number] [address] [place] [address] 11780 Eosinophils (Bld) [#/Vol] 0.06 10*3/uL Normal <0.46 [facility] Comment on above: Order Comment: Speci men Type: BLOOD SPECIMEN Ordering Facility: [facility] Address: , , Performed By: #### 5 7021-8 #### [facility] CLIA [id number] [address] [place] [address] 12706 Eosinophils/100 WBC (Bld) 0.9 % Normal [facility] Comment on above: Order Comment: Speci men Type: BLOOD SPECIMEN Ordering Facility: [facility] Address: , , Performed By: #### 5 7021-8 #### [facility] CLIA [id number] [address] [place] [address] 69955 Erythrocyte distribution width (RBC) [Ratio] 13.7 % Normal 11.5-15.0 [facility] Comment on above: Order Comment: Speci men Type: BLOOD SPECIMEN Ordering Facility: [facility] Address: , , Performed By: #### 5 7021-8 #### [facility] CLIA [id number] [address] [place] [address] 09882 Hematocrit (Bld) [Volume fraction] 40.1 % Normal 36.0-46.0 [facility] Comment on above: Order Comment: Speci men Type: BLOOD SPECIMEN Ordering Facility: [facility] Address: , , Performed By: #### 5 7021-8 #### [facility] CLIA [id number] [address] [place] [address] 86213 Hemoglobin (Bld) [Mass/Vol] 13.4 g/dL Normal 11.5-15.5 [facility] Comment on above: Order Comment: Speci men Type: BLOOD SPECIMEN Ordering Facility: [facility] Address: , , Performed By: #### 5 7021-8 #### [facility] CLIA [id number] [address] [place] [address] 51504 Immature granulocytes (Bld) [#/Vol] 10*3/uL Normal <0.10 [facility] Comment on above: Order Comment: Speci men Type: BLOOD SPECIMEN Ordering Facility: [facility] Address: , , Performed By: #### 5 7021-8 #### [facility] CLIA [id number] [address] [place] [address] 40259 Immature granulocytes/100 WBC (Bld) 0.3 % Normal [facility] Comment on above: Order Comment: Speci men Type: BLOOD SPECIMEN Ordering Facility: [facility] Address: , , Performed By: #### 5 7021-8 #### [facility] CLIA [id number] [address] [place] [address] 10410 Lymphocytes (Bld) [#/Vol] 1.67 10*3/uL Normal 1.00-4.00 [facility] Comment on above: Order Comment: Speci men Type: BLOOD SPECIMEN Ordering Facility: [facility] Address: , , Performed By: #### 5 7021-8 #### [facility] CLIA [id number] [address] [place] [address] 72621 Lymphocytes/100 WBC (Bld) 24.9 % Normal [facility] Comment on above: Order Comment: Speci men Type: BLOOD SPECIMEN Ordering Facility: [facility] Address: , , Performed By: #### 5 7021-8 #### [facility] CLIA [id number] [address] [place] [address] 85527 MCH (RBC) [Entitic mass] 31.1 pg Normal 26.0-34.0 [facility] Comment on above: Order Comment: Speci men Type: BLOOD SPECIMEN Ordering Facility: [facility] Address: , , Performed By: #### 5 7021-8 #### [facility] CLIA [id number] [address] [place] [address] 35535 MCHC (RBC) [Mass/Vol] 33.4 g/dL Normal 30.5-36.0 [facility] Comment on above: Order Comment: Speci men Type: BLOOD SPECIMEN Ordering Facility: [facility] Address: , , Performed By: #### 5 7021-8 #### [facility] CLIA [id number] [address] [place] [address] 08950 MCV (RBC) [Entitic vol] 93.0 fL Normal 80.0-100.0 [facility] Comment on above: Order Comment: Speci men Type: BLOOD SPECIMEN Ordering Facility: [facility] Address: , , Performed By: #### 5 7021-8 #### [facility] CLIA [id number] [address] [place] [address] 72721 Monocytes (Bld) [#/Vol] 0.50 10*3/uL Normal <0.87 [facility] Comment on above: Order Comment: Speci men Type: BLOOD SPECIMEN Ordering Facility: [facility] Address: , , Performed By: #### 5 7021-8 #### [facility] CLIA [id number] [address] [place] [address] 75584 Monocytes/100 WBC (Bld) 7.5 % Normal [facility] Comment on above: Order Comment: Speci men Type: BLOOD SPECIMEN Ordering Facility: [facility] Address: , , Performed By: #### 5 7021-8 #### [facility] CLIA [id number] [address] [place] [address] 14100 Neutrophils (Bld) [#/Vol] 4.44 10*3/uL Normal 1.45-7.50 [facility] Comment on above: Order Comment: Speci men Type: BLOOD SPECIMEN Ordering Facility: [facility] Address: , , Performed By: #### 5 7021-8 #### [facility] CLIA [id number] [address] [place] [address] 17103 Neutrophils/100 WBC (Bld) 66.1 % Normal [facility] Comment on above: Order Comment: Speci men Type: BLOOD SPECIMEN Ordering Facility: [facility] Address: , , Performed By: #### 5 7021-8 #### [facility] CLIA [id number] [address] [place] [address] 80374 Nucleated RBC (Bld) [#/Vol] 10*3/uL Normal <0.01 [facility] Comment on above: Order Comment: Speci men Type: BLOOD SPECIMEN Ordering Facility: [facility] Address: , , Performed By: #### 5 7021-8 #### [facility] CLIA [id number] [address] [place] [address] 43892 Nucleated RBC/100 WBC (Bld) [Ratio] 0.0 /100 WBC Normal [facility] Comment on above: Order Comment: Speci men Type: BLOOD SPECIMEN Ordering Facility: [facility] Address: , , Performed By: #### 5 7021-8 #### [facility] CLIA [id number] [address] [place] [address] 16883 Platelet mean volume (Bld) [Entitic vol] 12.1 fL Normal 9.0-12.7 [facility] Comment on above: Order Comment: Speci men Type: BLOOD SPECIMEN Ordering Facility: [facility] Address: , , Performed By: #### 5 7021-8 #### [facility] CLIA [id number] [address] [place] [address] 49434 Platelets (Bld) [#/Vol] 148 10*3/uL Low 150-400 [facility] Comment on above: Order Comment: Speci men Type: BLOOD SPECIMEN Ordering Facility: [facility] Address: , , Performed By: #### 5 7021-8 #### [facility] CLIA [id number] [address] [place] [address] 66767 RBC (Bld) [#/Vol] 4.31 10*6/uL Normal 3.90-5.20 [facility] Comment on above: Order Comment: Speci men Type: BLOOD SPECIMEN Ordering Facility: [facility] Address: , , Performed By: #### 5 7021-8 #### [facility] CLIA [id number] [address] [place] [address] 59452 WBC (Bld) [#/Vol] 6.71 10*3/uL Normal 3.70-11.00 [facility] Comment on above: Order Comment: Speci men Type: BLOOD SPECIMEN Ordering Facility: [facility] Address: , , Performed By: #### 5 7021-8 #### [facility] CLIA [id number] [address] [place] [address] 34455 HBV surface Ag Ser Qlon 07-20 HBV surface Ag Ql (S) Negative Normal Negative [facility] Comment on above: Order Comment: Speci men Type: BLOOD SPECIMEN Ordering Facility: [facility] Address: , , Performed By: #### 5 7021-8 #### [facility] CLIA [id number] [address] [place] [address] 19792 HCV Ab Ser Qlon 08-08-2023 HCV Ab Ql (S) Negative Normal Negative [facility] Comment on above: Order Comment: Speci men Type: BLOOD SPECIMEN Ordering Facility: [facility] Address: , , Result Comment: The result suggests no evidence of active infection with Hepatitis C virus. Should recent infection be suspected, repeat testing may be considered 4-6 weeks after this draw. Performed By: #### 1 6128-1 #### [facility] CLIA [id number] [address] [place] [address] [place] HIV 1+2 Ab IA Qlon 4 HIV 1 and 2 Ab IA.rapid Nom (S/P/Bld) Normal [facility] Comment on above: Order Comment: Speci men Type: BLOOD SPECIMEN Ordering Facility: [facility] Address: , , Result Comment: Test not indicated. Performed By: #### 5 7021-8 #### [facility] CLIA [id number] [address] [place] [address] 81906 HIV 1+2 Ab+HIV1 p24 Ag IA Ql Non-Reactive Normal Nonreactive [facility] Comment on above: Order Comment: Speci men Type: BLOOD SPECIMEN Ordering Facility: [facility] Address: , , Performed By: #### 5 7021-8 #### [facility] CLIA [id number] [address] [place], [place] [address] HIV immunoassay testing algorithm interpretation (S/P/Bld) [Interp] Normal [facility] Comment on above: Order Comment: Speci vishnu Type: BLOOD SPECIMEN Ordering Facility: [facility] Address: , , Result Comment: No e vidence of HIV-1 or HIV-2 infection. Should recent infection be suspected, repeat testing may be considered 2-3 weeks after this draw. [place] Rev. Code 3701.243(E): This information has been [...] diagnoses. Performed By: #### 5 7021-8 #### [facility] CLIA [id number] [address] [place] [address] 47801 HbA1c (Bld)on 08-08-2023 Average glucose Estimated from glycated hemoglobin (Bld) [Mass/Vol] 105 mg/dL Normal [facility] Comment on above: Order Comment: Tammy mares Type: BLOOD SPECIMEN Ordering Facility: [facility] Address: , , Result Comment: eAG: (Estimated average glucose) is a calculated value from HgbA1c and is sales development representative of the average blood glucose level in the last 2-3 month period. Performed By: #### 5 5454-3 #### [facility] CLIA [id number] [facility] [place] [address] [place] HbA1c (Bld) [Mass fraction] 5.3 % Normal 4.3-5.6 [facility] Comment on above: Order Comment: Speci [facility] Type: BLOOD SPECIMEN Ordering Facility: [facility] Address: , , Result Comment: Amer [place] Diabetes Association guidelines indicate that patients with HgbA1c in the range 5.7-6.4% are at increased risk for development of diabetes, and intervention by lifestyle modification may be beneficial. HgbA1c greater or equal to 6.5% is considered diagnostic of diabetes. Performed By: #### 5 5454-3 #### [facility] CLIA [id number] [address] [place] [address] [place] RPR Ser Qlon 08-08-2023 Reagin Ab RPR Ql (S) Non-Reactive Normal Nonreactive [facility] Comment on above: Order Comment: Tammy [facility] Type: BLOOD SPECIMEN Ordering Facility: [facility] [place] Address: [facility] [address] [place] [address] Result Comment: Rapi d plasma reagin (RPR) test detects non-treponemal antibodies. RPR may be reactive in a variety of infectious and non-infectious conditions. Correlation with clinical picture and with treponemal antibody results is required for final interpretation. Performed By: #### G LTGST #### [facility] CLIA [id number] [address] [place] [address] [place] RUBELLA IGG ANTIBODYon 08-07 RUBELLA IGG AB, QUAL Positive Normal Positive [facility] Comment on above: Order Comment: Roycebertha [facility] Type: BLOOD SPECIMEN Ordering Facility: [facility] [place] Address: [address] [place] [address] Result Comment: The result suggests recent or past exposure to Rubella virus or history of Rubella vaccination. Positive result may also be seen due to presence of passively-transferred antibodies. Please correlate with patient's history. Performed By: #### G LTGST #### [facility] CLIA [id number] [address] [place] [address] [place] TYPE + SCREENon 08-08-2023 ABO A Normal [facility] Comment on above: Order Comment: Speci men Type: BLOOD SPECIMEN Ordering Facility: [facility] Address: , , Performed By: #### T SCR #### [facility] CLIA [id number] [address] [place] [address] [place] HISTORICAL AB SCR STATUS Negative Normal [facility] Comment on above: Order Comment: Speci men Type: BLOOD SPECIMEN Ordering Facility: [facility] Address: , , Performed By: #### T SCR #### [facility] CLIA [id number] [address] [place] [address] [place] Rh Nom (Bld) Positive Normal [facility] Comment on above: Order Comment: Speci men Type: BLOOD SPECIMEN Ordering Facility: [facility] Address: , , Performed By: #### T SCR #### [facility] CLIA [id number] [address] [place] [address] [place] TYPE AND SCREEN EXPIRATION 08/11/2023 23:59 Normal [facility] Comment on above: Order Comment: Speci men Type: BLOOD SPECIMEN Ordering Facility: [facility] Address: , , Performed By: #### T SCR #### [facility] CLIA [id number] [address] [place] [address] [place] B-HCG SerPl-aCncon 4 HCG.beta subunit Qn m[IU]/mL Normal <5.0 [facility] Comment on above: Order Comment: Speci men Type: BLOOD SPECIMEN Ordering Facility: [facility] Address: , , Result Comment: Dianne logan Performed By: #### 5 7021-8 #### [facility] CLIA [id number] [address] [place] [address] Jenni [facility]-2023 [facility] JESSEE ALMODOVAR ([id number]) 1990 [facility] Date Time Provider Department 05/16/23 VANESSABENJAMINTEDDYRONI CHAN During your visit today, we recorded the following information about you: Allergies As of Date: 05/16/2023 (No Known Allergies) Date Reviewed: 04/11/2023 Reviewed by: Macy Jones APRN.COMPLEX CARE NURSE PRACTITIONER - Fully Assessed Reason for Visit: Lab Orders [1688] Primary Visit Diagnosis:Possible , not confirmed [Z32.00] Order(s):HCG QUANTITATIVE [SQHCGQT] Order #: [id number] FUTURE Prescriptions as of 05/16/2023 - doxycycline [...] Status:Closed by RONI DUMAS on 05/16/23 Normal [facility] TOX SCREEN ROUT URon 024 Amphetamines Confirm (U) [Mass/Vol] Negative Normal Negative [facility] Comment on above: Order Comment: Speci men Type: BLOOD SPECIMEN Ordering Facility: [facility] [place] Address: [facility] [address] [place] [address] Result Comment: Cuto ff threshold at 1000 ng/mL. Performed By: #### G LTGST #### [facility] CLIA [id number] [address] [place] [address] [place] BARBITURATES, URINE Negative Normal Negative [facility] Comment on above: Order Comment: Speci men Type: BLOOD SPECIMEN Ordering Facility: [facility] [place] Address: [facility] [address] [place] [address] Result Comment: Cuto ff threshold at 200 ng/mL. Performed By: #### G LTGST #### [facility] CLIA [id number] [address] [place] [address] [place] BENZODIAZEPINES, UR Negative Normal Negative [facility] Comment on above: Order Comment: Speci men Type: BLOOD SPECIMEN Ordering Facility: [facility] [place] Address: [facility] [address] [place] [address] Result Comment: Cuto ff threshold at 200 ng/mL. Performed By: #### G LTGST #### [facility] CLIA [id number] [address] [place] [address] [place] Cannabinoids Screen Ql (U) Negative Normal Negative [facility] Comment on above: Order Comment: Speci men Type: BLOOD SPECIMEN Ordering Facility: [facility] [place] Address: [facility] [place] [address] Result Comment: Cuto ff threshold at 50 ng/mL. Performed By: #### G LTGST #### [facility] CLIA [id number] [facility] [place] [address] [place] Cocaine Ql (U) Negative Normal Negative [facility] Comment on above: Order Comment: Speci men Type: BLOOD SPECIMEN [facility] Address: [facility] [address] [place] [address] Result Comment: Cuto ff threshold at 300 ng/mL. Performed By: #### G LTGST #### [facility] CLIA [id number] [address] [place] [address] [place] Ethanol (U) [Mass/Vol] <11 Normal <11 [facility] Comment on above: Order Comment: Speci men Type: BLOOD SPECIMEN [facility] Address: [facility] [place] [address] Performed By: #### G LTGST #### [facility] CLIA [id number] [facility] [address] [place] Opiates Screen Ql (U) Negative Normal Negative [facility] Comment on above: Order Comment: Speci men Type: BLOOD SPECIMEN Ordering Facility: [facility] [place] Address: [facility] [address] [place] [address] Result Comment: Cuto ff threshold at 300 ng/mL. Performed By: #### G LTGST #### [facility] CLIA [id number] [address] [place] [address] OF [place] oxyCODONE cutoff Screen (U) [Mass/Vol] Negative Normal Negative [facility] Comment on above: Order Comment: Speci men Type: BLOOD SPECIMEN Ordering Facility: [facility] [place] Address: [facility] [address] [place] [address] Result Comment: Cuto ff threshold at 100 ng/mL. Performed By: #### G LTGST #### [facility] CLIA [id number] [address] [place] [address] Phencyclidine Ql (U) Negative Normal Negative [facility] Comment on above: Order Comment: Speci men Type: BLOOD SPECIMEN Ordering Facility: [facility] Address: [facility] [address] [place] [address] Result Comment: Cuto ff threshold at 25 ng/mL. Performed By: #### G LTGST #### [facility] CLIA [id number] [address] [place] [address] [place] B-HCG SerPl-aCncon 4 HCG.beta subunit Qn m[IU]/mL Normal <5.0 [facility] Comment on above: Order Comment: Speci men Type: BLOOD SPECIMEN Ordering Facility: External Submitter Address: , , Result Comment: Dianne logan Performed By: #### 5 [id number] #### [facility] CLIA [id number] [address] [place], [place] [address] CNOVon 02-25-2023 CNOV Office Visit (ORTHMN ) JESSEE ALMODOVAR ([id number]) 1990 F [facility] Date Time Provider Department 02/25/23 1:00 PM ROSAS MCKINNEY During your visit today, we recorded the [...] with a (more content not included)... Normal [facility] XR HIP 3V PELV+ AP/LAT RTon [...] any questions regarding this interpretation, please call [phone]. If you are unable to reach us at the number above, please feel free to contact [facility] eRadiology at [phone]. [id number] Normal [facility] XR Pelvis and Hip - right [...] any questions regarding this interpretation, please call [phone]. If you are unable to reach us at the number above, please feel free to contact [facility] at [phone]. DIVISION OF RADIOLOGY * * *Final Report* [...] unremarkable. DIVISION OF RADIOLOGY Provider, Tom Salinas [facility] - 02/20/2023 * * *Final Report* * [...] any questions regarding this interpretation, please call [phone]. If you are unable to reach us at the number above, please feel free to contact [facility] eRadiology at [phone]. 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] Order(s):XR HIP GENERAL 3V PELV/AP/LAT RIGHT [[id number]] Order #: [id number] FUTURE Prescriptions as of 02/17/2023 - amphetamine-dextroamphe [...] Status:Closed by TIANA CRONIN on 02/17/23 Normal [facility] CBC W Auto Differential pane l (Bld)on 11-15-2022 Basophils (Bld) [#/Vol] 0.04 10*3/uL <0.11 k/uL [facility] Basophils/100 WBC (Bld) 0.8 % [facility] Differential cell count method Nom (Bld) Auto [facility] Eosinophils (Bld) [#/Vol] 0.11 10*3/uL <0.46 k/uL [facility] Eosinophils/100 WBC (Bld) 2.1 % [facility] Erythrocyte distribution width (RBC) [Ratio] 13.7 % 11.5 - 15.0 % [facility] Hematocrit (Bld) [Volume fraction] 46.7 % High 36.0 - 46.0 % [facility] Hemoglobin (Bld) [Mass/Vol] 15.6 g/dL High 11.5 - 15.5 g/dL [facility] Immature granulocytes (Bld) [#/Vol] <0.10 k/uL [facility] Immature granulocytes/100 WBC (Bld) 0.2 % [facility] Lymphocytes (Bld) [#/Vol] 1.77 10*3/uL 1.00 - 4.00 k/uL [facility] Lymphocytes/100 WBC (Bld) 33.7 % [facility] MCH (RBC) [Entitic mass] 31.8 pg 26.0 - 34.0 pg [facility] MCHC (RBC) [Mass/Vol] 33.4 g/dL 30.5 - 36.0 g/dL [facility] MCV (RBC) [Entitic vol] 95.3 fL 80.0 - 100.0 fL [facility] Monocytes (Bld) [#/Vol] 0.64 10*3/uL <0.87 k/uL [facility] Monocytes/100 WBC (Bld) 12.2 % [facility] Neutrophils (Bld) [#/Vol] 2.68 10*3/uL 1.45 - 7.50 k/uL [facility] Neutrophils/100 WBC (Bld) 51.0 % [facility] Nucleated RBC (Bld) [#/Vol] <0.01 k/uL [facility] Nucleated RBC/100 WBC (Bld) [Ratio] 0.0 /100 WBC [facility] Platelet mean volume (Bld) [Entitic vol] 11.3 fL 9.0 - 12.7 fL [facility] Platelets (Bld) [#/Vol] 154 10*3/uL 150 - 400 k/uL [facility] RBC (Bld) [#/Vol] 4.90 10*6/uL 3.90 - 5.2 0 m/uL [facility] WBC (Bld) [#/Vol] 5.25 10*3/uL 3.70 - 11. 00 k/uL [facility] CBC W Auto Differential pane l (Bld)on 08-09-2022 Basophils (Bld) [#/Vol] 0.03 10*3/uL <0.11 k/uL [facility] Basophils/100 WBC (Bld) 0.6 % [facility] Differential cell count method Nom (Bld) Auto [facility] Eosinophils (Bld) [#/Vol] 0.05 10*3/uL <0.46 k/uL [facility] Eosinophils/100 WBC (Bld) 0.9 % [facility] Erythrocyte distribution width (RBC) [Ratio] 13.6 % 11.5 - 15.0 % [facility] Hematocrit (Bld) [Volume fraction] 42.0 % 36.0 - 46.0 % [facility] Hemoglobin (Bld) [Mass/Vol] 13.5 g/dL 11.5 - 15.5 g/dL [facility] Immature granulocytes (Bld) [#/Vol] <0.10 k/uL [facility] Immature granulocytes/100 WBC (Bld) 0.4 % [facility] Lymphocytes (Bld) [#/Vol] 1.57 10*3/uL 1.00 - 4.00 k/uL [facility] Lymphocytes/100 WBC (Bld) 29.0 % [facility] MCH (RBC) [Entitic mass] 30.5 pg 26.0 - 34.0 pg [facility] MCHC (RBC) [Mass/Vol] 32.1 g/dL 30.5 - 36.0 g/dL [facility] MCV (RBC) [Entitic vol] 94.8 fL 80.0 - 100.0 fL [facility] Monocytes (Bld) [#/Vol] 0.47 10*3/uL <0.87 k/uL [facility] Monocytes/100 WBC (Bld) 8.7 % [facility] Neutrophils (Bld) [#/Vol] 3.27 10*3/uL 1.45 - 7.50 k/uL [facility] Neutrophils/100 WBC (Bld) 60.4 % [facility] Nucleated RBC (Bld) [#/Vol] <0.01 k/uL [facility] Nucleated RBC/100 WBC (Bld) [Ratio] 0.0 /100 WBC [facility] Platelet mean volume (Bld) [Entitic vol] 11.1 fL 9.0 - 12.7 fL [facility] Platelets (Bld) [#/Vol] 145 10*3/uL Low 150 - 400 k/uL [facility] RBC (Bld) [#/Vol] 4.43 10*6/uL 3.90 - 5.2 0 m/uL [facility] WBC (Bld) [#/Vol] 5.41 10*3/uL 3.70 - 11. 00 k/uL [facility] XR Pelvis and Hip - [...] any questions regarding this interpretation, please call [phone]. If you are unable to reach us at the number above, please feel free to contact [facility] at [phone]. DIVISION OF RADIOLOGY * * *Final Report* [...] in the interval. DIVISION OF RADIOLOGY Provider, [facility] - 08/01/2022 * * *Final [...] any questions regarding this interpretation, please call [phone]. If you are unable to reach us at the number above, please feel free to contact [facility] eRadiology at [phone]. [facility] Radiology Study observation (narrative) [facility] XR Pelvis and Hip - right AP and Lateral frogOrdered By: Ccf Provider on 08-01-2022 [facility] Ambulatory Visit Summaryon 0 05-26-2022 [...] Up with CHELSEA KRAUS DO When: Where: [facility] [address] [place] [phone]- Medications What How Much When Why Instructions New amoxicillin (amoxicillin 500 mg Cap) 1 Capsules By Mouth Every 12 hours Strep pharyngitis Duration: 10 Days Pickup at [facility] 1985 Unchanged biotin Contact prescribing physician if [...] physician if questions or concerns Pharmacy Information [facility]: [address] [place] [id number] [phone] Allergies No Known Allergies Problems Ongoing - [...] these instructions at home: Medicines ? Take bbcd-jfz-brorkpv and prescription medicines only as told by [...] drinking cup (more content not included)... 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 No aptt-gez-wyivmmw medications today. Review of Systems PHQ Score [...] day(s), # 20 cap(s), Refills(s) 0, Pharmacy: [facility], 172, cm, 05/26/22 [...] Acute pharyngitis, unspecified) Ordered: Rapid Strep POC 52554 Follow-up With When Contact Information CHELSEA KRAUS DO [facility] [address] [place] [address]- Additional Instructions: Patient Education Strep Throat, Adult, Vzqh-kr-Isfx BMI for Adults Problem List/Past Medical History [...] Strep POC Result: Positive (05/26/22 09:56:00) Normal [facility] Comment on above: Result Comment: Elec tronically Signed By: Roxanne MOSLEY CNP.br\Date and Time Signed: 05/26/22 10:07 EST Patient [...] these instructions at home: Medicines ? Take musn-qwe-ibibfuv and prescription medicines only as told by [...] 09/23/2008 Document Revised: 06/25/2019 Document Reviewed: 06/25/2019 Elsevier Patient Education ? 2019 [employer] Nutrition BMI for Adults Body mass index (BMI) is a number that is calculated from a person's weight and height. BMI may help to estimate how much of a person's weight is composed of fat. BMI can help identify those who may be (more content not included)... Normal [facility] Coding Summary.on 02-26-2022 Coding Summary. CD:[id number] Gh0 bWw+PGhlYWQ+AC5VRMIzN51 gfIBdaZ8UT2vMDN5EDOEFFC PQZA5ZMK4piCJ3XSpvN0Nfr iAv IgkmzAMePB58LTk0AGA4kMq bXGellM0yqMVlZ6v6TjWwLC 98sX40OFstKPFcCtA7WkJkw jsgbWFy E4fiRpJwfCTyCrv+PHRhYmx lIHdpZHRoPScxMDAlJyBzdH trYX1kQx0gVKVoHJNddFqsv HNlOiBj r7teECMjLIwiAZ6wePskH9X fqTE1DMMpd0f4Qe77lYA+PH ErVSY8pBylOBjhy638KyAef 3ksSZE4 kNSbHOzoDTH5A76xz3M1EQV lIVWaXTL5zWF7dF4lmOdfan tmR2YmsORwRnM2JWQ2rXPaz T7suUtb zjtpvC5yXao+H98DVN8HVFJ VAY1GXwt1I8FcLgwbjNG+PC 42CQQlLT84fYZbbDNsp3ynf Iu5XwBn ZKKnEOA1sPqzPOlbg4WuXSB bP43puMOtw4B3GMLniPlzzR NhAkIcmVL3aM4kWBdededad 2hvdzsn Qzqou3upmm92tO53H61tEYl eFAAyBRJ2VYJkTFJllSjiii 6dkL5xBm0+LSpxz5bar7ona Gv6WwGp ECXycbLabXefDRQ5g4ZqGm4 9T1SzwQjwh7MgKut9uh36bO Ohb6L7wRX1ZDmyIXOmvT1bH WxlZnQ6 SLWyGdRkxA32fKMmSQdoGd2 imJwevRehNM5yNXOkybijKX IpeL8jPYOkyZAreTtmKM4lV TBpbjtm v003KnVsYVB6OSWhzSBqT8G axQ3wWyHgZCMoDDLoW8UdaO DuJUaxR617LWdkVjR2KNGvq mOxZ5Ef OMYcvNpsMzD7i8Z2Tk4De4L omrlbSSG8GCmgUGYvWbI4Ey YdKcT9A5JjDbr1HADfqMivK F6pS1Qs NQYrahjomjezpDC8LHEsMGB hrT71yFPwGQayCl9zp6K9t4 30AXWrFKDswH19Ud7fuGyyI TBwdCBU dX0mmnxly2dlhtedCtAnXDB sXZm1UQt0YWBxvZxvSgAxTQ X4UlY6UCU1fVGcaO3jhUtzr srfaJ1x Oyc+J41neA4nKDJ9XVD9mcp zDEQtmgLyNT96ZI51F9VpYi wvdGFibGU+PGRpdiBzdHlsZ T4lJmRv t3zbi0SvLUihJ7FdDIMaSEg cCky4QGYzKPH1gFO4wQ2hWV YtOYofu4Q2wIS3L5KzfxZeo k9cc1nn VZRfCZjiS04vdBVkh1Q3RXE leVF7VHRpwLaeTcOhjQ61Ur c+DRStgAstv0IsWmdht6ecm 8uldQa0 MpFgLTJbsqJsrOltWLW5u4V dBm84L87yXVecUMSqWIIzTQ BdUMTupYcgdy5blE2lWv7+P GNvbCB3 hTN6mT3qSCLrSlF2YIulO34 2LmRdmXRoXynkm5rhq9zytW m9LaDyLKZqjdEdhYylBGL5l 8UzOr31 E16pZRycVAAhVGFiPLUlAJM zbHaiau5gmU9mIa8+PC9jb2 xhya99qV35sIZ+JVUfVRH3r WxlPSdw UNLfuH3dVRbuMqO0HKPfEwI owJ35eBQiTIceTn1pgRvjaV jmZP8uZZYtamlaz698BpIfe 2xkIDEw sOUgSFqpPJN6T54yk1Z4YVR gQVEcSLD2gJJ4nY2esNwyib ogbGVmdDsgdmVydGljYWwtY BviC392 IHRvcDsnPlBhdGllbnQgTmF hGIq8I4PqRyq2SECmvIysEB 7wxPOwVStiPy6hvIlvqUzbL Q4tPGJn moecy539XpEwk0cwDGJqoYH sIWorJOJ7N11gr7Y7PEUkFM EoDYS6nQX0rC1iiDrsoquag GVmdDsg znMcsHliMTrdIRkqE027HWS siRroWhBxkiRvRCKljJV6OW 09VM70mGNat1I8nEK1X5BnI GRpbmct qsmgnVH3CYGwDHPhiE00Xl7 mnSsxQj8bCMDnBRN1GGXpmX EeC0LyrY5zCoMiPJIjAXUjM 3RleHQt ZLuoH193PUkfCtP5GOGybnR uE4RhXQQnjVwrIuO2w8R6No 1TL7L4MN44NE40fRTjj9A8e CD9U0Hg EAQnsjjrimesxVN5UDMlDSL liM04Iu0saGqdUn8qVDOgTK O4FPTelKJmZ6IkeB8gUkLbW DAwMDAw V5QbqJMmUAhtM324KTgtVmY 7RZGbojZjI2OmZLImiNycEm F1z2V6Nt4LSJd2PH05RR25t IVug0Z1 qSJ1U7FyGCKjyyocedeufKW 8RMLvYFBtiR74Eo4nyMosVw 2bITZcGYS3SPSguLGeJ4Efy S1zGfOk UPLrRTDcG3CkqNXxZMtuH03 9OBwmGpY4QTViveSqF6BdDL CjuXekIcA7c1V7Hw4XATWiF A96JVM3 jEB3TX80ST74J7QzRgudlFL ibGU+PHRhYmxlIHdpZHRoPS ddPRMbOzYzrYlwPG2eBp7sH GVyLWNv bLdosKTzCyNcl5ixXMKuBHx sPP7ftVkbX3HqwNI4PBQyz7 k4Uu02E99fX0DelAA+PGNvb XD5mOE3 uC9sSlZwNpY8GCkgX643CrN yxUGzNfqvj6aal4byqXi7Dg N5CUVzvpFjvChdKRJ6f7RoI g45V63f IHdpZHRoPSIxNSUiIHZhbGl dyd5vtL0tTs2+KZPnfER9pZ K8hS7tFrDoCyU4JJyuZ096F nRvcCIv Riyyg5tko9koxUd9JfNvJTR eytMqsXwtVJE9b1EhFz70I5 GkpUotu0RtUod2ks36xFRes 0K1mXQ5 F3BnUFMakaokvBSiiUrgOM3 tPWGqyxuoBNXlbN7zJRWeM1 e2SaReSxC3WWbwH9NeylD8O DEwcHQg KJfiBYU6B87sy3G6UMBkGZI yLSY9kFI8aB3okPuwoqyfxK VmdDsgdmVydGljYWwtYWxpZ 246IHRv rQlxZQDolJ2uDYPgoGJstRy hYH7zJEExcgciJkmIIXbLYL mKUriwEWUMGY34G8MsQxg2H CBzdHls CV4smKAgJBzmIc5jvGwozKj jIC2hLQGsvmfsIXQnvY7iBQ CxjNBntOwqBN1rXWHyecyev 250OiAx MAU3RPIhnLErR2KfiX2wZsO dNSNmNKRqX4BhjJJwDIvfQ3 14UZxmBlW1VUPvubQbX9EuG WFsaWdu EkK8f3N2Cj9kEY0oSO3cLBl vYX41MM50gKBan9U3bLT6K0 TrTYRpskwpztqzpHA4XIHgV DUwaW47 bGBxEKalQx8ts1N8o796ZRE kUARanF65Fx4hcToiUPLmkM KJvD2vylsum1uzgtmgPzUqR DAwMDt0 FDd5QWXiwVvmNsVbZVB3GqW 8YVB1sXEnxG2ujSukcqfibN 9wOyc+EcYbAUQzztA6W8RnB ha2VFVx aSovTR7qtRXqZAlnIl0dmWw hiInrCY8mPBTgnmayQEZjjA 0rOTFxaPTdlVnjVD1qQYPeq lgfq897 AkPaUAC8CRVosLXvI2VryP8 vAxQzDJMlVSHpQ4MhbTFgSU ikR865MHheKtQ8SXIoqeSuL 2FsLWFs aHepVgF3u6U1To5SGX2qrMW 3Q3TrFzc2GSYvlGlzOY5pzY CxUQalEn7xnLpwgNpqNL3iI TBpbjtw XUGaxU2sBCKnjZNgvSfiWE5 dQAGngjdwa700NnUlIZV9WF SffINtH6IknF9nCeIaIZEnA YHzR6Vr eISyNTegT925FJsiOdW3FPS pydYjT4KlHSWqiYoeTfG1u3 A5Jz5OvQYqA8YeX3p5W1GrV jwvdHI+ SL32RLSoFT69bMUdwZRjn5k clIn2VbZwYYGgENN3wJvyBJ btq1DhQLRdV47leUOsg7B6W GNvbGxh jKEkNiClkTD0tD6hZNefcrz gy2vkahfrWwgvz9zavc86iK 14U32yCPwgZYQtHSIdDWOjX HZhbGln wo0bdT7lXp6+FXQecLO6cWL 2cI6pQsHxToE3UPefV491Co ZlfYReYrsei4koi2dcdDw4B jIwJSIg erWxjRwvVYY4m0TdWb77S03 sIHdpZHRoPSIyMCUiIHZhbG szbs6kiJ9kYk2+HM9vs1mvh h46fG69 dHI+YRZrVTW4vHhcCYqmADK vfI5tECjvByU1HFYvZeKkeF 20jGAaBDwcIo6ygRgufOitT Q2gQBPr gofxe285YfDkr6vjZGFajWH nNIroUNA8I12pf3M8FARzSY UqAZZ6xRR6nP5htKlwhsyti GVmdDsg awEueIvpUHseAJxtE447TVG znBgjRjZdrQUwA0vmzpNZRT 1lOjwvdGQ+IQQqISH2tTehG SdwYWRk jC8fIBQqV4d1QaLmDrT7QQh lO7DgnpL3GOZjbEKePVAfjG FQwQ2evkeqe1iobxowFtQxB DAwMDt0 ZTl8VLEczFvvKlPbEGK9McY 8YVQ2wZProH6kxRynfdezgY 9wOyc+RklOOjwvdGQ+PHRkI ML8aVop BMjwNZXveO5nXROvM7k2RsA sHyA1IKsuE7GnmaI6ULZvpG OnIEDfwCMLiU5ekfvln3gib jogIzAw VFHwPIe4TLa7UGUnaDgcOfL aRXO1RdM8NNQ2pWGtxP0tpN eaodzlpO2oRzn+TVJOOjwvd GQ+PHRk VFL7wCklIEuhYBClbN4fEQS kK1o5IsFeUbQ7XNxtK1Ktmm Y2JIJdwQPxIATylSYRmM9vd ycit8ny gnspEiItIRMnORa6QDc3DBS kpKhvUaQoMPS0WiO2NIQ9vB VyeS5grLfbgokiqX2uWix+U PK0OUC0 ZX55YU13H0YqLoaedZXpbKR +PHRhYmxlIHdpZHRoPScxMD ZbHpMxzVcfGH3wOd1bOOUgK WNvbGxh cHNl (more content not included)... Normal [facility] Discharge Instructionson Discharge Instructions [id number] CD:127 Normal [facility] ED Clinical Summaryon 2021 ED Clinical Summary [address] [address] ED Clinical Summary Person Information Name: JESSEE ALMODOVAR/[facility] Age: 32 Years : 1990 Sex: Female Language: Mozambican PCP: Marital Status: Phone: [phone] Visit Id: Visit Reason: Foot pain-swelling; HURT [...] 02/23/2022 11:07:01 02/23/2022 11:07:01 ADDRESS: [address] [place] [id number] PHYS DOC NOTES: MEDICAL INFORMATION: Prescriptions Given: PATIENT EDUCATION INFORMATION: Instructions: Foot Sprain; How to Use Cold Therapy, Dstx-xr-Alul; Elastic Bandage and RICE Therapy Follow up: With: Address: When: CHELSEA KRAUS [facility], [address] [place] [address] Spine Pain Management (1) In 3 days 02/26/2022 Comments: Follow-up with your primary care provider in 3 to 5 days. If symptoms worsen, do not improve, or new symptoms arise please report back to emergency department for further evaluation. DIAGNOSIS: Sprain of left foot Normal [facility] ED Note-Physicianon 02-24-20 ED Note-Physician Basic Information Time Seen: Jose BALL, Mohan Mendoza 02/23/2022 09:09 Chief Complaint PT REPORTS L [...] Information CHELSEA KRAUS In 3 days 02/26/2022 [facility] [address] [place] [address]- Business (1) Additional Instructions: Follow-up with your primary care provider in 3 to 5 days. If symptoms worsen, do not improve, or new symptoms arise please report back to emergency department for further evaluation. Patient Education Foot Sprain How to Use Cold Therapy, Mwro-uj-Oiii Elastic Bandage and RICE Therapy Attestation Patient seen and evaluated by the physician physicians assistant. Attending physician was present in the emergency department and supervised care. This visit was performed by both the physician and an APC. I performed all aspects of the MDM as documented. This report was transcribed using voice recognition software. Every effort was made to ensure accuracy, however, inadvertently computerized curriculum and instruction director mistakes may be present. Appropriate healthcare PPE [...] medications Ho (more content not included)... Normal [facility] Comment on above: Result Comment: Elec [...] This may take several hours. ? Take vqpe-vzl-puvhqsd and prescription medicines only as told by [...] is no (more content not included)... Normal [facility] ED Patient Summaryon 022 ED Patient Summary (Inserted Image. Kelsi ble to display) [place] [id number] Patient Discharge Instructions Person Information Name: JESSEE ALMODOVAR Age: 32 Years Arrival Date: 02/23/2022 09:05:13 Discharge Diagnosis: Sprain of left foot Primary Care Physician: Provider Information Primary Provider: Chayo Anne DO [facility] Orderly:None The exam and treatment you received in the Emergency Department were for an urgent problem and are not intended as complete care. It is important that you follow up with a doctor, nurse practitioner, or physician?s physicians assistant for ongoing care. If your symptoms become worse or you do not improve as expected and you are unable to reach your usual health care provider, you should return to the Emergency Department. We are available 24 hours a day. JESSEE ALMODOVAR has been given the following list of patient education materials, prescriptions and follow-up instructions: Follow-up Instructions: With: Address: When: [email or web address], [address] [place], [place] [id number] Business (1) In 3 days 02/26/2022 Comments: [...] Foot Sprain; How to Use Cold Therapy, Slnq-xo-Wwjo; Elastic Bandage and RICE Therapy A MESSAGE TO ALL PATIENTS REGARDING OPIOIDS PRESCRIPTION OPIOIDS: WHAT YOU NEED TO KNOW Prescription opioids can be used to help relieve bxwanpot-wc-iazgbq pain and are often prescribed following a [...] Visit www.cdc.gov/ (more content not included)... Normal [facility] XR Foot 3+ Views Lefton 11-0 [...] Chatterjee DO Transcribed by: SUZY Technologist: TIM Olguin [facility] XR Pelvis and Hip - right [...] any questions regarding this interpretation, please call [phone]. If you are unable to reach us at the number above, please feel free to contact [facility] at [phone]. DIVISION OF RADIOLOGY * * *Final Report* [...] appears preserved. DIVISION OF RADIOLOGY Provider, Tom Diaz - 02/19/2022 * * *Final Report* * [...] any questions regarding this interpretation, please call [phone]. If you are unable to reach us at the number above, please feel free to contact [facility] eRadiology at [phone]. [facility] XR Pelvis and Hip - right AP and Lateral frogOrdered By: Ccf Provider on 02-19-2022 [facility] XR Pelvis and Hip - right AP and Lateral frogon 02-18-2022 Radiology Study observation (narrative) [facility] CT ABD/PELV W CONon 02-12-20 [...] EMELIA STEWART Date: 2022-02-11 07:23 Normal [facility] US PELVIS AND TRANSVAGon US [...] JENNIFER HARTLEY Date: 2022-01-08 14:12 Normal [facility] UA DIP, URINE (POC)on 2021 BILIRUBIN UA (POCT) Negative Negative [facility] CLARITY UA (POCT) [facility] COLOR UA (POCT) Yellow [facility] GLUCOSE UA (POCT) Negative Negative mg/dL [facility] HEMOGLOBIN/BLOOD UA (POCT) Trace-intact Abnormal Negative [facility] KETONE UA (POCT) Negative Negative mg/dL [facility] LEUKOC[facility]TES [facility]A (POCT) Small Abnormal Negative [facility] NITRITE UA (POCT) Negative Negative [facility] PH UA (POCT) 6.5 4.5 - 8.0 [facility] Protein Ql (U) Negative Negative mg/dL [facility] SPECIFIC GRAVITY UA (POCT) 1.015 1.005 - 1.030 [facility] UROBILINOGEN UA (POCT) 0.2 E.U./dL Normal E.U./dL [facility] Large Joint Arthro/Inj: R gr eater trochanteric bursa [facility] Vital Signs Date Time Vital Sign Value Performing Clinician Facility 02-10-2024 13:39-0400 Body mass index (BMI) [Ratio] 29.83 kg/m2 [email or web address] Work Phone: [facility] 02-10-2024 13:39-0400 Body weight 101.15 kg [email or web address] Work Phone: [facility] 02-10-2024 13:39-0400 Diastolic blood pressure 70 mm[Hg] [email or web address] Work Phone: [facility] 02-10-2024 13:39-0400 Systolic blood pressure 120 mm[Hg] [email or web address] Work Phone: [facility] 01-27-2024 10:17-0400 Body mass index (BMI) [Ratio] 29 kg/m2 Franny COSTELLO Work Phone: [facility] 01-27-2024 10:17-0400 Body weight 98.34 kg Franny Hager PA Work Phone: [facility] 01-27-2024 10:17-0400 Diastolic blood pressure 60 mm[Hg] Franny Hager PA Work Phone: [facility] 01-27-2024 10:17-0400 Systolic blood pressure 110 mm[Hg] Franny Hager PA Work Phone: [facility] 02-25-2023 13:16-0500 Body height 185.4 cm Rosas Mckinney MD Work Phone: [facility] 02-25-2023 13:16-0500 Body weight 76.67 kg Rosas Mckinney MD Work Phone: [facility] 07-10-2022 15:15-0400 Body height 181.61 cm Imad Asaad Other [employer] Other 07-10-2022 15:15-0400 Body mass index (BMI) [Ratio] 24.48 kg/m2 Imad Asaad Other [employer] Other 07-10-2022 15:15-0400 Body weight 80.74 kg Imad Asaad Other [employer] Other 07-10-2022 15:15-0400 Diastolic blood pressure 78 mm[Hg] Imad Asaad Other [employer] Other 07-10-2022 15:15-0400 Systolic blood pressure 130 mm[Hg] Imad Asaad Other [employer] Other 05-26-2022 09:29-0500 Blood Pressure Location Roxanne DIMITRI [facility] 05-26-2022 09:29-0500 Body temperature 98.42 [degF] Roxanne MOSLEY [facility] 05-26-2022 09:29-0500 Diastolic blood pressure 78 mm[Hg] Roxanne MOSLEY [facility] 05-26-2022 09:29-0500 Heart rate 115 /min Roxanne MOSLEY [facility] 05-26-2022 09:29-0500 SaO2% (BldA) [Mass fraction] 98 % Roxanne MOSLEY [facility] 05-26-2022 09:29-0500 Systolic blood pressure 120 mm[Hg] Roxanne MOSLEY [facility] 02-23-2022 09:10-0400 Body temperature 98.42 [degF] Chayo Anne [facility] 02-23-2022 09:10-0400 Diastolic blood pressure 67 mm[Hg] [facility] [facility]22 09:10-0400 Heart rate 88 /min Chayo Anne [facility] 02-23-2022 09:10-0400 Respiratory rate 18 /min Chayo Anne [facility] 02-23-2022 09:10-0400 SaO2% (BldA) [Mass fraction] 98 % Chayo Anne [facility] 02-23-2022 09:10-0400 Systolic blood pressure 141 mm[Hg] Chayo Anne [facility] Encounters Encounter Date Encounter Type Care Provider Facility Start: 02-10-2024 End: 02-10-2024 Bamboo flowsheet Guillaume Vasquez DO Work Phone: [facility] Start: 02-10-2024 End: 02-10-2024 Bamboo flowsheet Guillaume Pedro DO Work Phone: [facility] Start: 02-10-2024 End: 02-10-2024 flow sheet Guillaume Pedro DO Work Phone: [facility] Comment on above: 35 weeks gestation o f ; Third trimester Start: 02-05-2024 End: 02-05-2024 ambulatory ANUPAMA BROWN Facility:[facility] Start: 01-27-2024 End: 01-27-2024 Bamboo flowsheet Franny COSTELLO Work Phone: [facility] Start: 01-27-2024 End: 01-27-2024 Bamboo flowsheet Franny COSTELLO Work Phone: [facility] Start: 01-27-2024 End: 01-27-2024 ambulatory FRANNY HAGER Not Available Start: 01-27-2024 End: 01-27-2024 flow sheet Franny COSTELLO Work Phone: [facility] Comment on above: 33 weeks gestation o f ; Third trimester ; Low iron; Nonintractable headache, unspecified chronicity pattern, unspecified headache type; Constipation, unspecified constipation type Start: 01-19-2024 End: 01-19-2024 ambulatory ANUPAMA DANIELLE BROWN Facility:[facility] Start: 01-13-2024 End: 01-13-2024 ambulatory GUILLAUME PEDRO Not Available Start: 01-05-2024 End: 01-05-2024 ambulatory ANUPAMAMaday BROWN Facility:[facility] Start: 12-30-2023 End: 12-30-2023 ambulatory GUILLAUME PEDRO Not Available Start: 12-16-2023 End: 12-16-2023 ambulatory GUILLAUME PEDRO Not Available Start: 12-08-2023 End: 12-08-2023 ambulatory GUILLAUME R PEDRO Facility:[facility] Start: 11-20-2023 End: 11-20-2023 ambulatory FRANNY HAGER Facility:[facility] Start: 11-18-2023 End: 11-18-2023 ambulatory FRANNY ANGLINEY Not Available Start: 10-22-2023 End: 10-22-2023 ambulatory GUILLAUME R PEDRO Facility:[facility] Start: 10-21-2023 End: 10-21-2023 ambulatory GUILLAUME PEDRO Not Available Start: 10-16-2023 End: 10-16-2023 ambulatory [facility] Start: 09-24-2023 End: 09-24-2023 ambulatory FRANNY HAGER Not Available Start: 08-26-2023 End: 08-26-2023 ambulatory GUILLAUME PEDRO Not Available Start: 08-08-2023 End: 08-08-2023 ambulatory ANUPAMA BROWN Facility:[facility] Start: 07-24-2023 End: 07-24-2023 ambulatory GUILLAUME PEDRO Not Available Start: 06-04-2023 End: 06-04-2023 ambulatory ASIF SCHAEFER [facility] Start: 06-02-2023 End: 06-02-2023 Phys/qhp telephone evaluation 5-10 min Guillaume Pedro DO Work Phone: [facility] Comment on above: Irregular menses (Pr imary Dx) Start: 06-02-2023 End: 06-02-2023 ambulatory GUILLAUME PEDRO Not Available Start: 05-28-2023 Chart abstracting Guillaume Pedro DO Work Phone: [facility] Start: 05-16-2023 End: 05-16-2023 ambulatory ANUPAMA BROWN Facility:[facility] Start: 05-05-2023 End: 05-05-2023 ambulatory ANUPAMA BROWN Facility:[facility] Start: 05-02-2023 End: 05-02-2023 ambulatory ASIF SCHAEFER [facility] Start: 05-02-2023 End: 05-02-2023 Office outpatient visit 25 minutes Asif Schaefer 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 Work Phone: [facility] Comment on above: Attention deficit hy peractivity disorder (ADHD), predominantly inattentive type (Primary Dx); Moderate episode of recurrent major depressive disorder (CMS-HCC); Generalized anxiety disorder Start: 03-04-2023 End: 03-04-2023 ambulatory GUILLAUME VASQUEZ Not Available Start: 02-25-2023 End: 02-25-2023 ambulatory ANUPAMA BROWN Facility:[facility] Start: 02-25-2023 End: 02-25-2023 Office outpatient visit 25 minutes Rosas Mckinney MD Work Phone: Orthopaedics Comment on above: Lytic bone lesion of femur (Primary Dx); Greater trochanteric bursitis of right hip; Chronic pain of right hip; Chronic low back pain, unspecified back pain laterality, unspecified whether sciatica present; Pain of right hip; Bone lesion Start: 02-20-2023 End: 02-20-2023 ambulatory ANUPAMA BROWN Facility:[facility] Start: 02-20-2023 End: 02-20-2023 Subsequent hospital visit [...] femur [M89.9] Start: 07-10-2022 End: 07-10-2022 ambulatory Emile Mesa Other [facility] [employer] Other Start: 07-10-2022 Office outpatient ne w 45 minutes Imad Darrenad [facility] Start: 05-26-2022 End: 05-27-2022 ambulatory Roxanne MOSLEY Facility: [facility] Start: 05-26-2022 End: 05-26-2022 Patient encounter procedure Roxanne MOSLEY [facility] Start: 05-08-2022 End: 05-08-2022 ambulatory PRAVIN HAGER Facility: Start: 02-26-2022 End: 02-26-2022 Patient encounter procedure Rosas Mckinney MD Work Phone: Orthopaedics Comment on above: Lytic bone lesion of femur (Primary Dx) Start: 02-23-2022 End: 02-23-2022 Emergency department patient visit Chayo Dayana Facility[facility] Start: 02-23-2022 End: 02-23-2022 Emergency department patient visit Chayo Anne [facility] Start: 02-18-2022 End: 02-18-2022 Subsequent hospital [...] of patient and report Ma Nurse Yamil Sand Work Phone: Hematology/Oncology Comment on above: Dysuria (Primary Dx) Start: 10-04-2021 Orders Only Macy Jones APRN.COMPLEX CARE NURSE PRACTITIONER Work Phone: Hematology/Oncology Comment on above: Acute bilateral low back pain with bilateral sciatica (Primary Dx) Procedures Date Procedure Procedure Detail Performing Clinician Start: 02-10-2024 Urnls dip stick/tabl et rgnt non-auto w/o micrscp Guillaumecodey Vasquez DO Work Phone: Start: 01-27-2024 Urnls dip stick/tabl et rgnt non-auto w/o micrscp Franny COSTELLO Work Phone: Start: 10-21-2023 Microscopic observat ion [Identifier] in Cervix by Cyto stain Franny COSTELLO Work Phone: Start: 08-08-2023 Antibody screen ANUPAMA AVERY Comment on above: Order Comment: Speci men Type: BLOOD SPECIMEN Ordering Facility: External Submitter Address: , , Performed By: #### T SCR #### CC MAIN BLOOD BANK [facility] [id number] [address] [place] [address] [place] Start: 02-25-2023 Arthrocentesis aspir &/inj major jt/bursa w/o us Tiana Cronin PA-C Work Phone: Start: 02-20-2023 Radex hip unilateral with pelvis 2-3 views Roni Dumas MD Work Phone: Start: 08-08-2022 Adult depression scr eening assessment Asif Schaefer 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 Work Phone: Start: 08-01-2022 Radex hip unilateral with pelvis 2-3 views Jerome Avery DO Work Phone: Start: 02-18-2022 Radex hip unilateral with pelvis 2-3 views Roni Dumas MD Work Phone: Start: 11-08-2021 Urnls dip stick/tabl et rgnt auto w/o microscopy Natanael Kunte MD Work Phone: Start: 09-01-2015 Dilation and curetta ge of uterus Chayo Anne Start: 04-21-1995 Myringotomy with ins ertion of tube Chayo Anne Plan of Treatment Date Care Activity Detail Author Start: 01-04-2030 DTaP,Tdap and Td Vac cines (4 - Td or Tdap) DTaP,Tdap and Td Vaccines (4 - Td or Tdap) [facility] Start: 01-04-2030 Urine microalbumin profile DTa P,Tdap,Td Vaccine (4 - Td or Tdap) [facility] Start: 10-20-2028 Screening for malign ant neoplasm of cervix [facility] Start: 03-10-2024 Tobacco Screening Tobacco Screening [facility] Start: 02-23-2024 Screening for malign ant neoplasm of cervix [facility] Start: 02-18-2024 End: 02-18-2024 Patient encounter procedure 02/18/2024 9:40 AM EDT Routine [facility] [address] [place] [address] Franny Hager PA [address] [place], [place] [id number] [facility] Start: 02-10-2024 End: 02-09-2025 Strep B DNA probe, amplification Strep B DNA probe, amplification Lab Routine Third trimester Expected: 02/10/2024 (Approximate), Expires: 02/09/2025 [facility] Work Phone: Comment on above: Expected: 02/10/2024 (Approximate), Expires: 02/09/2025 Start: 02-10-2024 End: 02-10-2024 Patient encounter procedure 02/10/2024 1:00 PM EDT Routine [facility] [address] [place] [address] Gulilaume Vasquez, [address] [place] [address] [facility] Start: 12-21-2023 Covid-19 Vaccine ( season) Covid-19 Vaccine ( season) [facility] Start: 12-21-2023 Covid-19 Vaccine ( season) Covid-19 Vaccine ( season) [facility] Start: 12-21-2023 Influenza vaccination Influenza Vacc ine (#1) [facility] Start: 08-09-2023 Adult BMI Screening Adult BMI Screen ing [facility] Start: 08-09-2023 Depression Screening Depression Scre ening [facility] Start: 05-29-2023 End: 05-29-2023 Patient encounter procedure 05/29/2023 8:10 AM EST Office Visit [facility] [address] [place] [place] [id number] Guillaume Vasquez, [address] [place] [address] Irregular menses [facility] Comment on above: Irregular menses Start: 12-20-2022 Covid-19 Vaccine ( season) Covid-19 Vaccine ( season) [facility] Start: 12-20-2022 Influenza vaccination INFLUENZA (#1) [facility] Start: 11-15-2022 End: 01-15-2023 Comprehensive metabolic 2000 panel - Serum or Plasma [facility] Work Phone: Comment on above: Expected: 11/15/2022 , Expires: 01/15/2023 Start: 11-15-2022 End: 01-15-2023 Lipid 1996 panel - Serum or Plasma [facility] Work Phone: Comment on above: Expected: 11/15/2022 , Expires: 01/15/2023 Start: 11-15-2022 End: 01-15-2023 T4/FTI/T4U [facility] Work Phone: Comment on above: Expected: 11/15/2022 , Expires: 01/15/2023 Start: 11-15-2022 End: 01-15-2023 Thyrotropin [Units/volume] in Serum or Plasma [facility] Work Phone: Comment on above: Expected: 11/15/2022 , Expires: 01/15/2023 Start: 08-26-2022 End: 03-28-2023 XR HIP GENERAL 3V PELV/AP/LAT RIGHT XR HIP GENERAL 3V PELV/AP/LAT RIGHT Radiology Routine Lytic bone lesion of femur Expected: 08/26/2022, Expires: 03/28/2023 [facility] Work Phone: Comment on above: Expected: 08/26/2022 , Expires: 03/28/2023 Start: 08-09-2022 End: 10-09-2022 25-hydroxyvitamin D3 [Mass/volume] in Serum or Plasma [facility] Work Phone: Comment on above: Expected: 08/09/2022 , Expires: 10/09/2022 Start: 04-21-2022 DEPRESSION ASSESSMENT DEPRESSION ASS ESSMENT [facility] Start: 12-20-2021 Influenza vaccination INFLUENZA (#1) [facility] Start: 12-06-2021 End: 02-05-2022 Thyrotropin [Units/volume] in Serum or Plasma [facility] Work Phone: Comment on above: Expected: 12/06/2021 , Expires: 02/05/2022 Start: 12-06-2021 End: 02-05-2022 Thyroxine (T4) free [Mass/volume] in Serum or Plasma [facility] Work Phone: Comment on above: Expected: 12/06/2021 , Expires: 02/05/2022 Start: 12-06-2021 End: 02-05-2022 Triiodothyronine (T3) [Mass/volume] in Serum or Plasma [facility] Work Phone: Comment on above: Expected: 12/06/2021 , Expires: 02/05/2022 Start: 11-08-2021 End: 01-08-2022 Choriogonadotropin ( test) [Presence] in Urine [facility] Work Phone: Comment on above: Expected: 11/08/2021 , Expires: 01/08/2022 Start: 11-08-2021 End: 01-08-2022 URINALYSIS, REFLEX MICROSCOPIC [facility] Work Phone: Comment on above: Expected: 11/08/2021 , Expires: 01/08/2022 Start: 04-21-2021 DEPRESSION ASSESSMENT DEPRESSION ASS ESSMENT [facility] Start: 2021 HPV TESTING HPV TESTING [facility] Start: 10-13-2020 COVID-19 VACCINE (3 - Booster for Moderna series) COVID-19 VACCINE (3 - Booster for Moderna series) [facility] Start: 07-10-2020 COVID-19 VACCINE (3 - Booster for Moderna series) COVID-19 VACCINE (3 - Booster for Moderna series) [facility] Start: 07-10-2020 COVID-19 VACCINE (3 - Moderna series) COVID-19 VACCINE (3 - Moderna series) [facility] Start: 02-08-2012 PAP TESTING PAP TESTING [facility] Start: 02-08-2012 Screening for malign ant neoplasm of cervix [facility] Start: 2010 Urine microalbumin profile DTA P,TDAP,TD (1 - Tdap) [facility] Start: 2009 Anxiety Screening Anxiety Screening [facility] Start: 2009 Depression Screening Depression Scre ening [facility] Start: 2009 HEPATITIS C SCREENING HEPATITIS C SC REENING [facility] Start: 2009 HIV SCREENING HIV SCREENING [facility] Start: 2003 Adult depression scr eening assessment DEPRESSION SCREENING [facility] Start: 1997 Pneumococcal vaccination [facility] Start: 1991 HEPATITIS B (1 of 3 - 3-dose series) HEPATITIS B (1 of 3 - 3-dose series) [facility] Bacteria identified in Urine by Culture URINE CULTURE Microbiology Routine Pelvic pain 11/08/2021 11:36 AM EDT [facility] Work Phone: End: 06-02-2023 Drug Screen, [...] lesion 1 Occurrences starting 02/25/2023 until 03/26/2024 [facility] Work Phone: Comment on above: 1 Occurrences starti ng 02/25/2023 until 03/26/2024 End: 03-18-2024 XR HIP GENERAL 3V PELV/AP/LAT RIGHT XR HIP GENERAL 3V PELV/AP/LAT RIGHT Radiology Routine Lytic bone lesion of femur 1 Occurrences starting 02/17/2023 until 03/18/2024 [facility] Work Phone: Comment on above: 1 Occurrences starti ng 02/17/2023 until 03/18/2024 [facility] Immunizations Immunization Date Immunization Notes Care Provider [facility] 01-28-2023 influenza virus vaccine, unspecified formulation Roni Dumas MD Work Phone: [facility] 02-14-2022 influenza virus vaccine, unspecified formulation Rosas Mckinney MD Work Phone: [facility] 01-18-2021 influenza virus vaccine, unspecified formulation Macy Jones APRN.CNP Work Phone: [facility] 03-01-2020 influenza, seasonal, injectable Imad Asaad Other [employer] Other 02-03-2016 influenza, injectable, quadrivalent, contains preservative Imad Asaad Other [employer] Other NEGATED: Highlighted row has not occurred!03-02-2019 influenza, seasonal, injectable Imad Asaad Other [employer] Other Payers Date Payer Category Payer Private Health Insurance [employer] [id number] 2018 Unknown [id number] 1991 Unknown [id number] 2.16.840.1.701162.3.579.2. 593 1991 Unknown [id number] 2.16.840.1.798561.3.579.2. 593 1991 Unknown [id number] 2.16.840.1.825003.3.579.2. 593 1991 Unknown [id number] 2.16.840.1.433289.3.579.2. 727 1991 Unknown [id number] 2.16.840.1.712267.3.579.2. 727 1991 Unknown [id number] 2.16.840.1.821865.3.579.2. 1286 1991 Unknown [id number] 2.16.840.1.371796.3.579.2. 1286 1991 Unknown [id number] 2.16.840.1.875743.3.579.2. 1286 1991 Unknown [id number] 2.16.840.1.320275.3.579.2. 1286 1991 Unknown [id number] 2.16.840.1.630162.3.579.2. 1259 1991 Unknown [id number] 2.16.840.1.173313.3.579.2. 1259 1991 Unknown [id number] 2.16.840.1.611318.3.579.2. 1259 1991 Unknown [id number] 2.16.840.1.928276.3.579.2. 1259 1991 Unknown [id number] 2.16.840.1.304776.3.579.2. 1259 1991 Unknown [id number] 2.16.840.1.451288.3.579.2. 1259 1991 Unknown [id number] 2.16.840.1.673476.3.579.2. 1259 1991 Unknown [id number] 2.16.840.1.459669.3.579.2. 1259 1991 Unknown [id number] 2.16.840.1.355591.3.579.2. 1259 1991 Unknown [id number] 2.16.840.1.236781.3.579.2. 1259 1991 Unknown [id number] 2.16.840.1.606776.3.579.2. 1259 1959 Unknown [id number] Social History Date Type Detail [facility] Work Phone: Start: 1990 Sex Assigned At Not on file [facility] Start: 10-29-2021 End: 02-26-2022 Exposure to SARS-CoV-2 (event) Not sure [facility] Start: 03-21-2013 End: 10-21-2023 Tobacco smoking status Ex-smoker (finding) [facility] Comment on above: quit 01/2013 Start: 02-26-2022 End: 10-21-2023 Sex Assigned At Female [facility] History of tobacco use Current smoker [facility] History of tobacco use Cigarette Smoker C [facility] History of tobacco use Passive smoker [facility] Start: 02-11-2022 End: 10-21-2023 Tobacco use and exposure Smokeless tobacco non-user [facility] Start: 02-11-2022 End: 02-26-2022 Alcohol intake Current drinker of alcohol (finding) [facility] Tobacco smoking status Never [facility] Start: 02-26-2022 End: 10-21-2023 History of Social function [facility] Start: 02-25-2023 End: 05-28-2023 Tobacco smoking status NHIS Occasional tobacco smoker [facility] Start: 08-08-2022 Alcohol Comment on the weekends [facility] Start: 05-28-2023 Alcohol Comment caffeine: 2-3 cups per day coffee; soda [facility] Start: 01-13-2024 End: 02-10-2024 Alcoholic beverage intake Ex-drinker (finding) [facility] Start: 06-19-2023 [facility] Status Date Assessment Result Facility 05-26-2022 Functional Status N/A [facility] 02-23-2022 Functional Status N/A [facility] Clinical Notes 08-20-2015 to 02-10-2024 Wilda Francis LPN - 02/10/2024 1:00 PM PRAVIN Kemp - 01/27/2024 9:50 AM Billie Vasquez DO - 06/02/2023 4:20 PM ESTPsychiatric Progress Note - Asif Schaefer, LAKISHA-YOLA - 05/02/2023 10:00 AM EST Note Date & Type Note Facility 02-10-2024 History of Present illness Narrative Reason for Appointment: Patient ID: Jessee Almodovar is a 34 y.o. female who presents for Routine Visit Patient presents today for Return OB appointment. MEDICATIONS Current Outpatient Medications Medication Instructions aspirin 81 mg, Daily docusate sodium (COLACE) 100 mg, Oral, 2 times daily PRN iron polysaccharides (PROFE) 391.3 mg, Oral, Daily labetalol (NORMODYNE) 100 mg, Oral, 2 times daily levothyroxine (SYNTHROID) 25 mcg, Oral, Daily before breakfast levothyroxine (SYNTHROID, LEVOXYL) 200 mcg, Daily RT magnesium oxide (MAG-OX) 400 mg, Oral, Daily omeprazole (PRILOSEC) 40 mg, Daily before breakfast MV-Min-Fe Fum-FA-DHA ( 1 PO) Take by mouth. ALLERGIES No Known Allergies PROBLEMS Active Ambulatory [...] Exam Constitutional: Appearance: Normal appearance. She is well-developed. Genitourinary: Vulva normal. Cardiovascular: Rate and Rhythm: Normal rate and regular rhythm. Pulmonary: Effort: Pulmonary effort is normal. Breath sounds: Normal breath sounds. Abdominal: General: Bowel sounds are normal. There is no distension. Palpations: Abdomen is soft. Tenderness: There is no abdominal tenderness. There is no guarding or rebound. Musculoskeletal: General: No swelling. Normal range of motion. Right lower leg: No edema. Left lower leg: No edema. Neurological: Mental Status: She is alert and oriented to person, place, and time. Skin: General: Skin is warm and dry. Psychiatric: Mood and Affect: Mood normal. Behavior: Behavior normal. Vitals and nursing note reviewed. Exam conducted with a osha inspector present. Vitals: Estimated body mass index is 29 kg/m as calculated from the following: Height as of 05/07/22: 6' 0.5 . Weight as of 01/27/24: 216 lb 12.8 oz. BP: Patient's last menstrual period was 05/25/2023. ASSESSMENT & PLAN ICD-10-CM 1. 35 weeks gestation of Z3A.35 POCT urinalysis dipstick manually resulted 2. Third trimester Z34.93 POCT urinalysis dipstick manually resulted Strep B DNA probe, amplification Patient is doing well but has complaints of being tired and having maternal discomfort due to . Patient verbalized frequent movement and was instructed to perform kick counts three times per day. labor precautions were given, LARC consent was signed/declined, and GBS was obtained. Cervical check was performed and patient is 1cm dilated. Orders Placed This Encounter Procedures Strep B DNA probe, amplification POCT urinalysis dipstick manually resulted Follow Up: Patient is to return to office in 1 week for routine OB appointment Documented by Wilda Francis LPN on behalf of: Guillaume Vasquez DO documented in this encounter [facility] 01-27-2024 History of Present illness Narrative Reason [...] nursing note reviewed. Exam conducted with a osha inspector present. Vitals: Estimated body mass index is [...] PRAVIN Dumont documented in this encounter [facility] 06-02-2023 History of Present illness Narrative Reason for Appointment: Patient ID: Jessee Almodovar is a 33 y.o. female who presents for No chief complaint on file. Patient presents today via telephone call for a telehealth appointment. Patients Phone #: [phone] (mobile) Current Medications: has a current medication [...] or as needed. Will consider referral to [facility] in future Documented by Guillaume Vasquez DO on behalf of: Guillaume Vasquez DO documented in this encounter [facility] 05-02-2023 Miscellaneous Notes [address] [facility] [address] Patient: Jessee Almodovar Date of : 1990 Encounter Date: 05/02/2023 History of Present Illness/Psychiatric Review of Symptoms/Medical Review of Systems: Video Visit via Real-time Synchronous Audiovisual Provider Location: [facility] [address] [place] [address] Patient Location: patient's office in [place], [place] Video Visit Consent Statement: I discussed [...] that there are some limitations compared to gkkn-bz-ulhm evaluations. The patient consented to the presence of additional virtual and/or in-person participants. We elected to proceed. Jsesee is a 33 y.o. female, established patient, and is logged on via [employer] for a follow-up video visit. HPI: Jessee [...] Moderate episode of recurrent major depressive disorder ([facility]) Generalized anxiety disorder Medication Changes: [...] SCHAEFER CNP, PMP-. BARAK De Leon 05/02/23 2309 documented in this encounter [facility] 05-02-2023 Progress note Formatting of t his note is different from the original. Bernardo [facility] [address] Patient: Jessee Almodovar Date of : 1990 Encounter Date: 05/02/2023 History of Present Illness/Psychiatric Review of Symptoms/Medical Review of Systems: Video Visit via Real-time Synchronous Audiovisual Provider Location: [facility] [address] [place] [address] Patient Location: patient's office in [place], [place] Video Visit Consent Statement: I discussed [...] that there are some limitations compared to wmip-[id number] evaluations. The patient consented to the presence of additional virtual and/or in-person participants. We elected to proceed. Jessee is a 33 y.o. female, established patient, and is logged on via [employer] for a follow-up video visit. HPI: Jessee [...] Moderate episode of recurrent major depressive disorder ([facility]) Generalized anxiety disorder Medication Changes: [...] CNP, PMP-. BARAK De Leon 05/02/23 1746 [employer] 02-25-2023 Instructions Tiana Cronin PA-C - 02/25/2023 1:56 PM EST Images from the original note were not included. MRI right hip Home exercises Continue with NSAIDS CSI right hip- may repeat in 3 months if needed documented in this encounter [facility] 02-25-2023 Note HNO ID: [id number] Author: Rosas Mckinney MD Service: ? Author [...] given from [facility] (more content not included)... [facility] [facility] 02-25-2023 History of Present illness Narrative [...] trochanteric bursa Informed Consent Consent Obtained: Verbal [place] Protocol A moment to CARE was completed. [...] Time: 10:49 PM documented in this encounter [facility] 02-20-2023 History of Present illness Narrative [...] 2023 8:45 AM documented in this encounter [facility] 02-20-2023 Note HNO ID: [id number] Author: Kathrine Smith RT(R) Service: ? Author [...] RT Francisco(Kena) February 20, 2023 8:45 AM [facility] 02-17-2023 Miscellaneous Notes Jourdan Atkins, My [...] like. Thanks, Td. documented in this encounter [facility] 08-01-2022 History of Present illness [...] 2022 9:04 AM documented in this encounter [facility] 07-10-2022 Evaluation note Encounter Date Diagnosis Assessment Notes Jun, Constipation (ICD-10 - K59.00) Jun, Change in bowel habits (ICD-10 - R19.4) Jun, Diarrhea (ICD-10 - R19.7) Patient to start Align probiotic. Jun, Bloating (ICD-10 - R14.0) [facility] Other 02-05-2023 Hospital Discharge instructions Patient Education 05/26/2022 10:06:58 Strep Throat, Adult, Bmxx-wi-Xfhi Strep Throat, Adult Strep throat is an [...] Follow these instructions at home: Medicines Take digq-ibb-vihlcuz and prescription medicines only as told by [...] 09/23/2008 Document Revised: 06/25/2019 Document Reviewed: 06/25/2019 Elsevier Patient Education 2020 Elsevier Inc. 05/26/2022 10:06:56 BMI for Adults BMI [...] height. This can be done either in [place] ([place] or metric measurements. Note that charts are available to help you find your BMI quickly and easily without having to do these calculations yourself. To calculate your BMI in [place] measurements, your health care provider will: [...] medical problems. BMI can be measured using [place] measurements or metric measurements. To interpret your [...] 12/17/2004 Document Revised: 03/20/2018 Document Reviewed: 02/18/2018 Inveshare Patient Education 2019 DotAlign. Follow Up Care 05/26/2022 09:09:50 With:CHELSEA KRAUS DO Address: [employer] [address] [place], [place] [id number]- When: Unknown [facility] 11-08-2022 History of [...] she has undergone a workup with her buckle inspector. 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 Patient does [...] being sent back to Roni Dumas via [employer] or Chart CC for [facility] Providers. Rosas Mckinney MD Boilerhouse Mechanic, Orthopaedic Surgery Division of Musculoskeletal Oncology [facility] Evaluation + Plan note Extracted from: Title:ED Note Author:Jose BALL, Mohan Diamond te:02/23/22 Sprain of left foot (S93.602 A: Unspecified sprain of left foot, initial encounter) Orders: Crutches Elastic Bandage Application XR Foot 3+ Views Left [facility]11-05-2022 Hospital Discharge instructions Patient Education 02/23/2022 [...] fully hardened. This may takeseveral hours. Take pgys-zrl-yieseue and prescription medicines only as told by [...] 09/27/2002 Document Revised: 04/11/2018 Document Reviewed: 04/11/2018 Invesh[employer] Patient Education 2020 [employer]. 02/23/2022 11:07:01 How to Use Cold Therapy, Fbrc-xi-Dmfy How to Use Cold Therapy Cold therapy, [...] 09/23/2008 Document Revised: 01/04/2019 Document Reviewed: 01/04/2019 In[employer] Patient Education 2020 [employer]. 02/23/2022 11:07:01 Elastic Bandage and RICE Therapy [...] limityour activities and whether you should start tuejy-iq-ewzlur exercises for your injury. Ice Ice your [...] 09/27/2002 Document Revised: 12/26/2017 Document Reviewed: 12/26/2017 Inveshare Patient Education 2020 Dot[employer]. Follow Up Care 02/23/2022 09:05:48 With:CHELSEA KRAUS Address: [employer] [address] [place], [place] [id number] Business (1) When:02/26/2022 10:46:43 Comments:Follow-up with your primary care provider in 3 to 5 days. If symptoms worsen, do not improve, or new symptoms arise please report back to emergency department for further evaluation. [facility]10-31-2022 History of Present illness Narrative* Kathrine [...] Not applicable SIGNED BY: RT Francisco(Kena) February 18, 2022 3:09 PM [facility] Nurse Note* Lillie Smith - 11/08/2021 11:25 AM EDT UA performed as ordered. Lillie Smith documented [facility] History of Present illness Narrative* Macy Jones APRN.CNP - 10/04/2021 3:36 PM EDT Physical [facility] History general Narrative - Reported* Type Description Date Medical History Bernardo's thyroiditis Medical History Post- depression 2019 Surgical History D & C d/t miscarriage 08/2015 Surgical History LEEP 2012 Hospitalization History child [facility] Other Evaluation note* Diagnosis Acute bilateral low back pain with bilateral sciatica- [facility] Pelvic pain- Primary [facility] Diagnosis Dysuria- Primary [facility] Diagnosis Dysuria- Primary [facility] Diagnosis Unspecified hypothyroidism- Primary [facility] Diagnosis Lytic bone lesion of femur- Primary [facility] Diagnosis Moderate episode of recurrent major depressive disorder (HCC)- Primary [facility] Diagnosis Unspecified hypothyroidism- Primary Essential hypertension, malignant Lipids blood increased Other and unspecified hyperlipidemia Vegans' anemia Other vitamin B12 deficiency anemia [facility] Diagnosis Lytic bone lesion of femur- Primary [facility] Diagnosis Lytic bone lesion of femur- Primary Greater trochanteric bursitis of right hip Enthesopathy of hip region Chronic pain of right hip Chronic low back pain, unspecified back pain laterality, unspecified whether sciatica present Pain of right hip Bone lesion Disorder of bone and cartilage, unspecified [facility] Diagnosis Attention deficit hyperactivity disorder (ADHD), predominantly 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 ([facility]) Generalized anxiety disorder [facility] Diagnosis Irregular menses- Primary Irregular menstrual cycle documented in this encounter [facility]* Diagnosis Lytic bone lesion of femur [facility] Diagnosis Lytic bone lesion of femur [facility]* Diagnosis Lytic bone lesion of femur [facility]* Diagnosis 33 weeks gestation of Third trimester state, incidental Low iron Unspecified iron deficiency anemia Nonintractable headache, unspecified chronicity pattern, unspecified headache type Constipation, unspecified constipation type documented in this encounter [facility] HealthcareEvaluation note* Diagnosis 35 weeks gestation of Third trimester state, incidental [facility] N[facility] No data available for this section [facility]* Attachments The following attachments cannot be sent through Care Everywhere. * Methylphenidate, ADULT (Moz[place]ican) [facility] in [facility] encounter[facility] No data available for this section [facility]Reason for referral (narrative)* Diagnostic Procedure Only (Routine) - Pending Review Specialty Diagnoses / Procedures Referred By Bry pittman Referred To Contact XR IMAGING Diagnoses Lytic bone lesion of femur Procedures XR HIP GENERAL 3V PELV/AP/LAT RIGHT RADEX HIP UNILATERAL WITH PELVIS 2-3 VIEWS Rosas Mckinney MD [address] [facility] [address] [place] [address] Xr Imaging Referral ID Status Reason Start Date Expiration Date Visits Requested Visits Authorized [id number] Pending Review Auto-Generat ed Referral 08/26/2022 03/28/2023 1 1 [facility] for referral (narrative)* Diagnostic Procedure Only (Routine) - Pending Review Specialty Diagnoses / Procedures Referred By Contsteffen t Referred To Contact XR IMAGING Diagnoses Lytic bone lesion of femur Procedures XR HIP GENERAL 3V PELV/AP/LAT RIGHT RADEX HIP UNILATERAL WITH PELVIS 2-3 VIEWS Tiana Cronin PA-C [address] [place] [address] [place] [address] Referral ID Status Reason Start Date Expiration Date Visits Requested Visits Authorized [id number] Pending Review Auto-Generat ed Referral 03/18/[address] [facility] for referral (narrative)* Diagnostic Procedure Only (Routine) - Closed Specialty Diagnoses / Procedures Referred By Contac t Referred To Contact XR IMAGING Diagnoses Lytic bone lesion of femur Procedures XR HIP GENERAL 3V PELV/AP/LAT RIGHT RADEX HIP UNILATERAL WITH PELVIS 2-3 VIEWS Roni Dumas MD [address] [place] [address] [place] [address] [place] [address] Referral ID Status Reason Start Date Expiration Date V isits Requested Visits Authorized [id number] Closed Auto-Generate d Referral 02/17/2023 03/18/[address] [facility] for referral (narrative)* Diagnostic Procedure Only (Routine) - Closed Specialty Diagnoses / Procedures Referred By Contac t Referred To Contact XR IMAGING Diagnoses Lytic bone lesion of femur Procedures XR HIP GENERAL 3V PELV/AP/LAT RIGHT RADEX HIP UNILATERAL WITH PELVIS 2-3 VIEWS Rosas Mckinney MD [address] [place] [address] [place] [address] Referral ID Status Reason Start Date Expiration Date V isits Requested Visits Authorized [id number] Closed Auto-Generate d Referral 08/26/2022 03/28/[address] [facility] for referral (narrative)* Diagnostic Procedure Only (Routine) - Closed Specialty Diagnoses / Procedures Referred By Contac t Referred To Contact XR IMAGING Diagnoses Lytic bone lesion of femur Procedures XR HIP GENERAL 3V PELV/AP/LAT RIGHT RADEX HIP UNILATERAL WITH PELVIS 2-3 VIEWS Roni Dumas MD [address] [facility] [place] [address] Xr Imaging [facility] Referral ID Status Reason Start Date Expiration Date V isits Requested Visits Authorized [id number] Closed Auto-Generate d Referral 02/18/2022 03/20/2023 1 1 [facility] Reason for Referral Specialty Diagnoses / Procedures Referred By Contac t Referred To Contact [facility] Diagnoses Acute bilateral low back pain with bilateral sciatica Procedures CONSULT TO PHYSICAL THERAPY PHYSICAL THERAPY EVALUATION HIGH COMPLEX 45 MINS Macy Jones, FERMENTER HELPER.COMPLEX CARE NURSE PRACTITIONER [address] [place] [address] [facility] [place] [address] [place] [address] Referral ID Status Reason Start Date Expiration Date Visits Requested Visits Authorized [id number] Pending Review Auto-Generat ed Referral 10/04/2021 10/04/2022 1 1 Specialty Diagnoses / Procedures Referred By Bry t Referred To Contact MR IMAGING Diagnoses Greater trochanteric bursitis of right hip Chronic pain of right hip Pain of right hip Bone lesion Procedures MRI HIP WO IVCON RIGHT MRI ANY JT LOWER EXTREM W/O CONTRAST MATRL Tiana Cronin, PA-C [address] [place] [id number] Mr Imaging [facility]95 Referral ID Status Reason Start Date Expiration Date Visits Requested Visits Authorized [id number] Authorized Auto-Generat ed Referral 02/25/2023 03/26/2024 1 [...] or prosecute any alcohol or drug abuse patient.[facility] HospitalIn the event this information is protected by the Federal Confidentiality of Alcohol and Drug Abuse Patient Records regulations: The Federal rules restrict any use of the information to criminally investigate or prosecute any alcohol or drug abuse patient.[facility] HospitalIn the event this information is protected by the Federal Confidentiality of Alcohol and Drug Abuse Patient Records regulations: The Federal rules restrict any use of the information to criminally investigate or prosecute any alcohol or drug abuse patient.[facility] HospitalIn the event this information is protected by the Federal Confidentiality of Alcohol and Drug Abuse Patient Records regulations: The Federal rules restrict any use of the information to criminally investigate or prosecute any alcohol or drug abuse patient.[facility] HospitalIn the event this information is protected by the Federal Confidentiality of Alcohol and Drug Abuse Patient Records regulations: The Federal rules restrict any use of the information to criminally investigate or prosecute any alcohol or drug abuse patient.[facility] HospitalIn the event this information is protected by the Federal Confidentiality of Alcohol and Drug Abuse Patient Records regulations: The Federal rules restrict any use of the information to criminally investigate or prosecute any alcohol or drug abuse patient.[facility] HospitalIn the event this information is protected by the Federal Confidentiality of Alcohol and Drug Abuse Patient Records regulations: The Federal rules restrict any use of the information to criminally investigate or prosecute any alcohol or drug abuse patient.[facility] HospitalIn the event this information is protected by the Federal Confidentiality of Alcohol and Drug Abuse Patient Records regulations: The Federal rules restrict any use of the information to criminally investigate or prosecute any alcohol or drug abuse patient.[facility] HospitalIn the event this information is protected by the Federal Confidentiality of Alcohol and Drug Abuse Patient Records regulations: The Federal rules restrict any use of the information to criminally investigate or prosecute any alcohol or drug abuse patient.[facility] HospitalIn the event this information is protected by the Federal Confidentiality of Alcohol and Drug Abuse Patient Records regulations: The Federal rules restrict any use of the information to criminally investigate or prosecute any alcohol or drug abuse patient.[facility] HospitalIn the event this information is protected by the Federal Confidentiality of Alcohol and Drug Abuse Patient Records regulations: The Federal rules restrict any use of the information to criminally investigate or prosecute any alcohol or drug abuse patient.[facility] HospitalIn the event this information is protected by the Federal Confidentiality of Alcohol and Drug Abuse Patient Records regulations: The Federal rules restrict any use of the information to criminally investigate or prosecute any alcohol or drug abuse patient.[facility] HospitalIn the event this information is protected by the Federal Confidentiality of Alcohol and Drug Abuse Patient Records regulations: The Federal rules restrict any use of the information to criminally investigate or prosecute any alcohol or drug abuse patient.[facility] Patient Care team informatio n (unrecognized section and content) Insurance Territory Manager Relationship Specialty Start Date End Date Anupama Brown DO [address] [place] [place] [address] PCP - General Family Medicine 07/25/22 Emile Mesa MD [address] [address] Gastroenterology 07/25/22 Guillaume Vasquez, DO [address] [place] [address] [employer]BAGE [employer]ER 07/25/22 Insurance Territory Manager Relationship Specialty Start Date End Date Anupama Brown DO [address] [place] [address] PCP - General Family Medicine 07/25/22 Emile Mesa MD [address] [address] Gastroenterology 07/25/22 Guillaume Vasquez, DO [address] [place] [address] [employer]ARBAGE [employer] 07/25/22 Insurance Territory Manager Relationship Specialty Start Date End Date Anupama Brown, [address] [place] [address] PCP - General Family Medicine 07/25/22 Emile Mesa MD [address] [address] Gastroenterology 07/25/22 Guillaume Vasquez, [address] [place] [address] [employer]ARBAGE [employer] 07/25/22 Insurance Territory Manager Relationship Specialty Start Date End Date Anupama Brown, [address] [place] [address] PCP - General Family Medicine 07/25/22 Emile Mesa MD [address] [place] [address] [place] [address] Gastroenterology 07/25/22 Guillaume Vasquez DO [address] [place] [address] [place] [address] GARBAGE [employer]ER 07/25/22 Insurance Territory Manager Relationship Specialty Start Date End Date Chelsea Kraus DO [address] [place] [address] PCP - General Family Medicine 07/02/19 Insurance Territory Manager Relationship Specialty Start Date End Date Anupama Brown MD [address] [place] [phone] PCP - General Family Medicine 03/04/23 Insurance Territory Manager Relationship Specialty Start Date End Date Anupama Brown MD [address] [place] [phone] PCP - General Family Medicine 03/04/23 Insurance Territory Manager Relationship Specialty Start Date End Date Anupama Brown DO [address] [place] [address] PCP - General Family Medicine 07/25/22 Emile Mesa MD [address] [place] [address] [place] [address] Gastroenterology 07/25/22 Guillaume Vasquez DO [address] [facility] [place] [address] Pet Adoption Counselor 07/25/22 Insurance Territory Manager Relationship Specialty Start Date End Date Anupama Brown DO [address] [place] [address] PCP - General Family Medicine 07/25/22 Emile Mesa MD [address] [place] [address] [place] [address] Gastroenterology 07/25/22 Guillaume Vasquez DO [address] [facility] [place] [address] Pet Adoption Counselor 07/25/22 Insurance Territory Manager Relationship Specialty Start Date End Date Anupama Brown MD [address] [place] [phone] PCP - General Family Medicine 03/04/23 Insurance Territory Manager Relationship Specialty Start Date End Date Anupama Brown MD [address] [place] [phone] PCP - General Family Medicine 03/04/23 Insurance Territory Manager Relationship Specialty Start Date End Date Anupama Brown MD [address] [place] [phone] PCP - General Family Medicine 03/04/23 Reason for Visit (unrecogniz ed section and content) Reason Comments New Pain Tumor/Mass Specialty Diagnoses / Procedures Referred By Bry t Referred To Contact Orthopedics Diagnoses Lytic bone lesion of femur Procedures CONSULT TO ORTHOPAEDICS OFFICE/OUTPATIENT NEW HIGH MDM 60-74 MINUTES Roni Dumas MD [address] [facility] [place] [address] Referral ID Status Reason Start Date Expiration Date V isits Requested Visits Authorized [id number] Closed PCP Requested Referral 02/18/2022 02/18/2023 1 1 Reason Comments New Pain Reason Comments Radio Gen RMP Specialty Diagnoses / Procedures Referred By Contac t Referred To Contact XR IMAGING Diagnoses Lytic bone lesion of femur Procedures XR HIP GENERAL 3V PELV/AP/LAT RIGHT RADEX HIP UNILATERAL WITH PELVIS 2-3 VIEWS Roni Dumas MD [address] [facility] [address] [place] [address] Referral ID Status Reason Start Date Expiration Date V isits Requested Visits Authorized [id number] Closed Auto-Generate d Referral 02/17/2023 03/18/2024 1 1 Specialty Diagnoses / Procedures Referred By Contac t Referred To Contact XR IMAGING Diagnoses Lytic bone lesion of femur Procedures XR HIP GENERAL 3V PELV/AP/LAT RIGHT RADEX HIP UNILATERAL WITH PELVIS 2-3 VIEWS Rosas Mckinney MD [address] [place] [address] [place] [address] Referral ID Status Reason Start Date Expiration Date V isits Requested Visits Authorized [id number] Closed Auto-Generate d Referral 08/26/2022 03/28/2023 1 1 Referral ID Status Reason Start Date Expiration Date V isits Requested Visits Authorized [id number] Closed Auto-Generate d Referral 02/18/2022 03/20/2023 1 1 Reason Comments Routine Visit INFORMATION SOURCE (unrecogn ized section and content) DATE CREATED AUTHOR 05/08/2022 [facility] DATE CREATED AUTHOR AUTHOR'S ORGANIZ ATION 05/26/2022 [facility] DATE CREATED AUTHOR AUTHOR'S ORGANIZ ATION 05/04/2023 [facility] DATE CREATED AUTHOR AUTHOR'S ORGANIZ ATION 06/06/2023 [facility] DATE CREATED AUTHOR AUTHOR'S ORGANIZ ATION 10/17/2023 [facility] DATE CREATED AUTHOR AUTHOR'S ORGANIZ ATION 01/28/2024 [facility] EPIC DATE CREATED AUTHOR AUTHOR'S ORGANIZ ATION 2024 [facility] FOR RECORDS PERTAINING TO PATIENTS WHO [...] BE BASED ON THE PRIMARY CLINICAL RECORDS. [facility]. provides no warranty or guarantee of the accuracy or completeness of information in this document.
--- NOTE | 2024-02-14 13:13 | US_ITS ---
[address] [address] Patient Name: JESSEE JEFFERS MRN: [id number] date: 1990 Sex: F Assigned Patient Location: Current Patient Location: US Accession/Order Number: [id number] Exam Date: 02/14/2024 13:15 Report Date: 02/16/2024 04:34 At the request of: TEE RUBIN Procedure: US OB growth EXAMINATION: US OB growth HISTORY: LGA COMPARISON: Ultrasound OB growth 01/17/2024 FINDINGS: Heart Rate: 115.88 bpm Amniotic Fluid Volume: 25.3 cm; greater than 95th percentile. Number: 1 Position: CEPHALIC BIOMETRY: BPD: 9.47 cm; 38 weeks 4 days; 97 % HC: 34.54 cm; 40 weeks 0 days; 94.30 % AC: 35.57 cm; 39 weeks 3 days; 97 % FL: 7.09 cm; 36 weeks 2 days; 47.90 % EFW: 3586.42 g; 97 % FL/AC: 19.93 FL/BPD: 74.86 HC/AC: 0.97 GESTATIONAL AGE: Age by EDC: 36 weeks 2 days MEHUL by EDC: 2024-03-11 Age by US: 38 weeks 4 days MEHUL by US: 2024-02-24 US/US OB growth IMPRESSION: 1. Single live intrauterine with growth detailed above. 2. Estimated weight is greater than 97th percentile. 3. Polyhydramnios. Electronically authenticated by: JENNIFER HARTLEY Date: 02/16/2024 04:34
[2024-02-14 13:44] VITALS: BP 149/91; PULSE 90; TEMP 36.8
[2024-02-14 13:50] VITALS: BP 133/89; PULSE 92
== END 2024-02-14 14:17 | disposition home or self-care (01) ==
LOC: US 06:48 → FBC 12:57
PROVIDERS: Visit Provider Obstetrics & Gynecology
DX: O36.63X0 Maternal care for excessive fetal growth, third trimester, not applicable or unspecified (principal); Z3A.38 38 weeks gestation of pregnancy; O40.3XX0 Polyhydramnios, third trimester, not applicable or unspecified
CPT/HCPCS: 59025; 76816; 76818

== ENCOUNTER 2024-02-18 07:16 | Outpatient (OUT) | payer OTHER, SELFPAY ==
--- OUTSIDE RECORDS SUMMARY | 2024-02-18 07:18 | XMS_ITS | CCD ---
Author Organization [facility] Care Team Providers [employer] Sewer Name Role Phone Unavailable Primary Care Provider UnavailCHELSEA Murrieta Primary Care Physician [phone] Janice De La Rosa Unavailable Unavailable Unavailable [...] Unavailable PEDRO, DR OLIVEIRA Primary Care Unavailable PERR[place], DR EMELIA Luna Consult[employer] Unavailable PEDRO, DR [...] Attending Unavailable KIN, FRANNY Attending Unavailable [facility] KEVIN, [facility] Primary Care Unavailabl e ABHYANKAR, RONI Referring Unavailable ROSAS MCKINNEY Attending Unavailable KEVIN, [facility] Primary Care Unavailabl e ABHYANKAR, RONI Referring Unavailable KEVIN, [facility] Care Unavailabl e KEVIN, [facility] Care Unavailabl e KEVIN, [facility] Care Unavailabl e PEDRO, GUILLAUME R Referring Unavailable KEVIN, [facility] Care Unavailabl e KIN, FRANNY L Referring Unavailable KEVIN, [facility] Care Unavailabl e PEDRO, GUILLAUME R Referring Unavailable KEVIN, [facility] Primary Care Unavailabl e KEVIN, [facility] Care Unavailabl e PEDRO, GUILLAUME R Referring Unavailable KEVIN, [facility] Unavailabl e KEVIN, [facility] Primary Care Unavailabl e ASIF SCHAEFER Referring Unavailable Medications Current Medications Medication Drug Class(es) Dates Sig (Normalized) Sig (Original) amoxicillin 500 mg oral capsule (1 source) Penicillin-class Antibacterial Start: 05-26-2022 End: 06-05-2022 take 1 capsule by mouth every twelve hours amoxicillin 500 mg Cap 500 mg = 1 cap(s), Oral, q12hr, X 10 day(s), # 20 cap(s), Refills(s) 0, Pharmacy: [facility], 172, cm, 05/26/22 9:34:00 [...] on above: Take 1 capsule by mo [facility] once daily. Wait 20-30 minutes before eating or taking other medications. Take 1 capsule by mo [facility] once daily in the morning, wait 20-30 minutes before eating or taking other medications Take 1 capsule by mo [facility] once daily. 20-30 minutes before eating or taking other medications Take 1 tablet by [facility] once daily in the morning, 20-30 minutes before eating or taking other medications Take 1 capsule by mo [facility] twice daily. PNV no.95/ferrous fum/folic ac ( [...] on above: Take 1 capsule by mo [facility] once daily. citalopram 20 mg oral tablet [...] Comment on above: Take 1 capsule by [facility] twice daily. escitalopram 20 mg oral [...] Comment on above: Take 1 tablet by [facility] once daily. fluconazole 150 mg oral tablet (8 sources) Azole Antifungal Start: 02-07-20 End: 02-26-20 take 1 tablet by mouth once fluconazole (DIFLUCAN) 150 mg tablet 1 (one) tablet by mouth one time dose 1 tablet 1 02/06/2022 02/25/2023 Discontinued Comment on above: 1 (one) tablet by [facility] one time dose hydrOXYzine hydrochloride 50 [...] Comment on above: Take 1 tablet by [facility] three times daily as needed. 10 [...] 02/25/2023 Discontinued Start: 08-23-2020 End: 02-25-2023 medroxyPROGESTERone (DEPO-AL OVERA) 150 mg/mL injection Indications: Excessive or [...] UA Negative Negative - 4(70) +++ mg/dL [facility] Blood, UA Negative Negative - 50 Pepito/mcL [facility] Clarity, UA Clear [facility] Color, UA Yellow [facility] Glucose, UA Negative Negative - 2000(110) ++++ mg/dL [facility] Interpretation and review of laboratory results Normal [facility] Ketones, UA Negative Negative - 160(16) ++++ mg/dL [facility] Leukocytes, UA Negative Negative - 500+++ Ilia/mcL [facility] Nitrite, UA Negative Negative - Positive [facility] pH, UA 6.5 5 - 9 [facility] Protein, UA Negative Negative - 2000(20) ++++ mg/dL [facility] Spec Grav, UA 1.01 1 - 1.03 [facility] Urobilinogen, UA 0.2 0.2 - 12 mg/dL [facility] T4 Free SerPl-mCncon 024 Free T4 [Mass/Vol] 1.1 ng/dL Normal 0.9-1.7 [facility] Comment on above: Order Comment: Speci men Type: BLOOD SPECIMEN Ordering Facility: [facility] [place] Address: [facility] [address] [place] [address] Performed By: #### 3 016-3, 3024-7 #### [facility] CLIA [id number] [address] [place] [address] [place] TSH SerPl-aCncon 02-05-2024 TSH Qn 1.340 m[IU]/L Normal 0.270-4.200 [facility] Comment on above: Order Comment: Speci men Type: BLOOD SPECIMEN Ordering Facility: [facility] [place] Address: [facility] [address] [place] [address] Result Comment: If t he patient is , TSH reference range varies by gestational period: First Trimester (weeks 9-12): 0.180-2.990 mIU/L Second Trimester: 0.110-3.980 mIU/L Third Trimester: 0.480-4.710 mIU/L Manuel Grayson et al. A Practical Approach for the Verifications and Determination of Site- and Trimester-Specific Reference Intervals for Thyroid Function tests in . Thyroid, 2019:29:3:412-420. Emanuel Nassar et al. 2017 Guidelines of the [place] [employer] Association for the Diagnosis and Management of Thyroid Disease during and the . Thyroid, 2017:27:3:315-389. Performed By: #### 3 016-3, 3024-7 #### [facility] CLIA [id number] [address] [place] [address] [place] Urinalysis macro (dipstick) panel (U)on 01-27-2024 Bilirubin, UA Negative Negative - 4(70) +++ mg/dL [facility] Blood, UA Negative Negative - 50 Pepito/mcL [facility] Clarity, UA Clear [facility] Color, UA Yellow [facility] Glucose, UA Negative Negative - 2000(110) ++++ mg/dL [facility] Interpretation and review of laboratory results Normal [facility] Ketones, UA Negative Negative - 160(16) ++++ mg/dL [facility] Leukocytes, UA Negative Negative - 500+++ Ilia/mcL [facility] Nitrite, UA Negative Negative - Positive [facility] pH, UA 5.5 5 - 9 [facility] Protein, UA Negative Negative - 2000(20) ++++ mg/dL [facility] Spec Grav, UA 1.020 1 - 1.03 [facility] Urobilinogen, UA 0.2 0.2 - 12 mg/dL [facility] CBC W Auto Differential pane l (Bld)on 01-19-2024 Basophils (Bld) [#/Vol] 10*3/uL Normal <0.11 [facility] Comment on above: Order Comment: Speci men Type: BLOOD SPECIMEN Ordering Facility: External Submitter Address: , , Performed By: #### 5 7021-8 #### [facility] CLIA [id number] [address] [place] [address] 94425 Basophils/100 WBC (Bld) 0.2 % Normal [facility] Comment on above: Order Comment: Speci men Type: BLOOD SPECIMEN Ordering Facility: External Submitter Address: , , Performed By: #### 5 7021-8 #### [facility] CLIA [id number] [address] [place] [address] 66163 Differential cell count method Nom (Bld) Auto Normal [facility] Comment on above: Order Comment: Speci men Type: BLOOD SPECIMEN Ordering Facility: External Submitter Address: , , Performed By: #### 5 7021-8 #### [facility] CLIA [id number] [address] [place] [address] 09276 Eosinophils (Bld) [#/Vol] 0.06 10*3/uL Normal <0.46 [facility] Comment on above: Order Comment: Speci men Type: BLOOD SPECIMEN Ordering Facility: External Submitter Address: , , Performed By: #### 5 7021-8 #### [facility] CLIA [id number] [address] [place] [address] 84576 Eosinophils/100 WBC (Bld) 0.6 % Normal [facility] Comment on above: Order Comment: Speci men Type: BLOOD SPECIMEN Ordering Facility: External Submitter Address: , , Performed By: #### 5 7021-8 #### [facility] CLIA [id number] [address] [place] [address] 46837 Erythrocyte distribution width (RBC) [Ratio] 13.3 % Normal 11.5-15.0 [facility] Comment on above: Order Comment: Speci men Type: BLOOD SPECIMEN Ordering Facility: External Submitter Address: , , Performed By: #### 5 7021-8 #### [facility] CLIA [id number] [address] [place] [address] 73987 Hematocrit (Bld) [Volume fraction] 32.8 % Low 36.0-46.0 [facility] Comment on above: Order Comment: Speci men Type: BLOOD SPECIMEN Ordering Facility: External Submitter Address: , , Performed By: #### 5 7021-8 #### [facility] CLIA [id number] [address] [place] [address] 21852 Hemoglobin (Bld) [Mass/Vol] 10.7 g/dL Low 11.5-15.5 [facility] Comment on above: Order Comment: Speci men Type: BLOOD SPECIMEN Ordering Facility: External Submitter Address: , , Performed By: #### 5 7021-8 #### [facility] CLIA [id number] [address] [place] [address] 58961 Immature granulocytes (Bld) [#/Vol] 0.05 10*3/uL Normal <0.10 [facility] Comment on above: Order Comment: Speci men Type: BLOOD SPECIMEN Ordering Facility: External Submitter Address: , , Performed By: #### 5 7021-8 #### [facility] CLIA [id number] [address] [place] [address] 85005 Immature granulocytes/100 WBC (Bld) 0.5 % Normal [facility] Comment on above: Order Comment: Speci men Type: BLOOD SPECIMEN Ordering Facility: External Submitter Address: , , Performed By: #### 5 7021-8 #### [facility] CLIA [id number] [address] [place] [address] 86154 Lymphocytes (Bld) [#/Vol] 1.55 10*3/uL Normal 1.00-4.00 [facility] Comment on above: Order Comment: Speci men Type: BLOOD SPECIMEN Ordering Facility: External Submitter Address: , , Performed By: #### 5 7021-8 #### [facility] CLIA [id number] [address] [place] [address] 63797 Lymphocytes/100 WBC (Bld) 15.1 % Normal [facility] Comment on above: Order Comment: Speci men Type: BLOOD SPECIMEN Ordering Facility: External Submitter Address: , , Performed By: #### 5 7021-8 #### [facility] CLIA [id number] [address] [place] [address] 46051 MCH (RBC) [Entitic mass] 27.8 pg Normal 26.0-34.0 [facility] Comment on above: Order Comment: Speci men Type: BLOOD SPECIMEN Ordering Facility: External Submitter Address: , , Performed By: #### 5 7021-8 #### [facility] CLIA [id number] [address] [place] [address] 12752 MCHC (RBC) [Mass/Vol] 32.6 g/dL Normal 30.5-36.0 [facility] Comment on above: Order Comment: Speci men Type: BLOOD SPECIMEN Ordering Facility: External Submitter Address: , , Performed By: #### 5 7021-8 #### [facility] CLIA [id number] [address] [place] [address] 18565 MCV (RBC) [Entitic vol] 85.2 fL Normal 80.0-100.0 [facility] Comment on above: Order Comment: Speci men Type: BLOOD SPECIMEN Ordering Facility: External Submitter Address: , , Performed By: #### 5 3621-8 #### [facility] CLIA [id number] [address] [place] [address] 39900 Monocytes (Bld) [#/Vol] 0.77 10*3/uL Normal <0.87 [facility] Comment on above: Order Comment: Speci men Type: BLOOD SPECIMEN Ordering Facility: External Submitter Address: , , Performed By: #### 5 7021-8 #### [facility] CLIA [id number] [address] [place] [address] 85670 Monocytes/100 WBC (Bld) 7.5 % Normal [facility] Comment on above: Order Comment: Speci men Type: BLOOD SPECIMEN Ordering Facility: External Submitter Address: , , Performed By: #### 5 7021-8 #### [facility] CLIA [id number] [address] [place] [address] 43775 Neutrophils (Bld) [#/Vol] 7.81 10*3/uL High 1.45-7.50 [facility] Comment on above: Order Comment: Speci men Type: BLOOD SPECIMEN Ordering Facility: External Submitter Address: , , Performed By: #### 5 7021-8 #### [facility] CLIA [id number] [address] [place] [address] Neutrophils/100 WBC (Bld) 76.1 % Normal [facility] Comment on above: Order Comment: Speci men Type: BLOOD SPECIMEN Ordering Facility: External Submitter Address: , , Performed By: #### 5 7021-8 #### [facility] CLIA [id number] [address] [place] [address] 89266 Nucleated RBC (Bld) [#/Vol] 10*3/uL Normal <0.01 [facility] Comment on above: Order Comment: Speci men Type: BLOOD SPECIMEN Ordering Facility: External Submitter Address: , , Performed By: #### 5 7021-8 #### [facility] CLIA [id number] [address] [place] [address] Nucleated RBC/100 WBC (Bld) [Ratio] 0.0 /100 WBC Normal [facility] Comment on above: Order Comment: Speci men Type: BLOOD SPECIMEN Ordering Facility: External Submitter Address: , , Performed By: #### 5 7021-8 #### [facility] CLIA [id number] [address] [place] [address] 77656 Platelet mean volume (Bld) [Entitic vol] 11.3 fL Normal 9.0-12.7 [facility] Comment on above: Order Comment: Speci men Type: BLOOD SPECIMEN Ordering Facility: External Submitter Address: , , Performed By: #### 5 7021-8 #### [facility] CLIA [id number] [address] [place] [address] Platelets (Bld) [#/Vol] 172 10*3/uL Normal 150-400 [facility] Comment on above: Order Comment: Speci men Type: BLOOD SPECIMEN Ordering Facility: External Submitter Address: , , Performed By: #### 5 7021-8 #### [facility] CLIA [id number] [address] [place] [address] RBC (Bld) [#/Vol] 3.85 10*6/uL Low 3.90-5.20 [facility] Comment on above: Order Comment: Speci men Type: BLOOD SPECIMEN Ordering Facility: External Submitter Address: , , Performed By: #### 5 7021-8 #### [facility] CLIA [id number] [address] [place] [address] WBC (Bld) [#/Vol] 10.26 10*3/uL Normal 3.70-11.00 [facility] Comment on above: Order Comment: Speci men Type: BLOOD SPECIMEN Ordering Facility: External Submitter Address: , , Performed By: #### 5 7021-8 #### [facility] CLIA [id number] [address] [place] [address] 16703 T4 Free SerPl-mCncon 024 Free T4 [Mass/Vol] 0.9 ng/dL Normal 0.9-1.7 [facility] Comment on above: Order Comment: Speci men Type: BLOOD SPECIMEN Ordering Facility: [facility] [place] Address: [address] [place] [address] , [place] [address] Performed By: #### G LTGST #### [facility] CLIA [id number] [address] [place] [address] [place] TSH SerPl-aCncon 01-05-2024 TSH Qn 1.220 m[IU]/L Normal 0.270-4.200 [facility] Comment on above: Order Comment: [...] Nassar et al. 2017 Guidelines of the [place] Thy[employer] Association for the Diagnosis and Management of Thyroid Disease during and the . Thyroid, 2017:27:3:315-389. Performed By: #### 5 7021-8 #### [facility] CLIA [id number] [address] [place] [address] 63712 T4 Free SerPl-mCncon 024 Free T4 [Mass/Vol] 1.1 ng/dL Normal 0.9-1.7 [facility] Comment on above: Order Comment: Speci men Type: BLOOD SPECIMEN Ordering Facility: [facility] [place] Address: [facility] [address] [place] [address] Performed By: #### G LTGST #### [facility] CLIA [id number] [address] [place] [address] [place] TSH SerPl-aCncon 12-08-2023 TSH Qn 0.607 m[IU]/L Normal 0.270-4.200 [facility] Comment on above: Order Comment: Speci men Type: BLOOD SPECIMEN Ordering Facility: [facility] [place] Address: [facility] [address] [place] [address] Result Comment: If t he patient is , TSH reference range varies by gestational period: First Trimester (weeks 9-12): 0.180-2.990 mIU/L Second Trimester: 0.110-3.980 mIU/L Third Trimester: 0.480-4.710 mIU/L Manuel Grayson et al. A Practical Approach for the Verifications and Determination of Site- and Trimester-Specific Reference Intervals for Thyroid Function tests in . Thyroid, 2019:29:3:412-420. Emanuel Nassar et al. 2017 Guidelines of the [place] Thy[employer] Association for the Diagnosis and Management of Thyroid Disease during and the . Thyroid, 2017:27:3:315-389. Performed By: #### G LTGST #### [facility] CLIA [id number] [address] [place] [address] [place] CBC W Auto Differential pane l (Bld)on 11-20-2023 Basophils (Bld) [#/Vol] 0.04 10*3/uL Normal <0.11 [facility] Comment on above: Order Comment: Speci men Type: BLOOD SPECIMEN Ordering Facility: [facility] [place] Address: [address] [place] [address] Performed By: #### 5 7021-8 #### [facility] CLIA [id number] [address] [place] [address] 94400 Basophils/100 WBC (Bld) 0.6 % Normal [facility] Comment on above: Order Comment: Speci men Type: BLOOD SPECIMEN Ordering Facility: [facility] [place] Address: [address] [place] [address] Performed By: #### 5 7021-8 #### [facility] CLIA [id number] [address] [place] [address] 31626 Differential cell count method Nom (Bld) Auto Normal [facility] Comment on above: Order Comment: Speci men Type: BLOOD SPECIMEN Ordering Facility: [facility] [place] Address: [address] [place] [address] Performed By: #### 5 7021-8 #### [facility] CLIA [id number] [address] [place] [address] 68150 Eosinophils (Bld) [#/Vol] 0.05 10*3/uL Normal <0.46 [facility] Comment on above: Order Comment: Speci men Type: BLOOD SPECIMEN Ordering Facility: [facility] [place] Address: [address] [place] [address] Performed By: #### 5 7021-8 #### [facility] CLIA [id number] [address] [place] [address] 29342 Eosinophils/100 WBC (Bld) 0.7 % Normal [facility] Comment on above: Order Comment: Speci men Type: BLOOD SPECIMEN Ordering Facility: [facility] Address: [address] [place] [address] Performed By: #### 5 7021-8 #### [facility] CLIA [id number] [address] [place] [address] 73088 Erythrocyte distribution width (RBC) [Ratio] 12.9 % Normal 11.5-15.0 [facility] Comment on above: Order Comment: Speci men Type: BLOOD SPECIMEN Ordering Facility: [facility] Address: [address] [place] [address] Performed By: #### 5 7021-8 #### [facility] CLIA [id number] [address] [place] [address] 83687 Hematocrit (Bld) [Volume fraction] 35.0 % Low 36.0-46.0 [facility] Comment on above: Order Comment: Speci men Type: BLOOD SPECIMEN Ordering Facility: [facility] Address: [address] [place] [address] Performed By: #### 5 7021-8 #### [facility] CLIA [id number] [address] [place] [address] 60776 Hemoglobin (Bld) [Mass/Vol] 11.4 g/dL Low 11.5-15.5 [facility] Comment on above: Order Comment: Speci men Type: BLOOD SPECIMEN Ordering Facility: [facility] Address: [address] [place] [address] Performed By: #### 5 7021-8 #### [facility] CLIA [id number] [address] [place] [address] 92234 Immature granulocytes (Bld) [#/Vol] 10*3/uL Normal <0.10 [facility] Comment on above: Order Comment: Speci men Type: BLOOD SPECIMEN [facility] [place] Address: [address] [place] [address] Performed By: #### 5 7021-8 #### [facility] CLIA [id number] [address] [place] [address] 03727 Immature granulocytes/100 WBC (Bld) 0.3 % Normal [facility] Comment on above: Order Comment: Speci men Type: BLOOD SPECIMEN Ordering Facility: [facility] [place] Address: [address] [place] [address] Performed By: #### 5 7021-8 #### [facility] CLIA [id number] [address] [place] [address] 10827 Lymphocytes (Bld) [#/Vol] 1.25 10*3/uL Normal 1.00-4.00 [facility] Comment on above: Order Comment: Speci men Type: BLOOD SPECIMEN Ordering Facility: [facility] [place] Address: [address] [place] [address] Performed By: #### 5 7021-8 #### [facility] CLIA [id number] [address] [place] [address] 05837 Lymphocytes/100 WBC (Bld) 18.3 % Normal [facility] Comment on above: Order Comment: Speci men Type: BLOOD SPECIMEN [facility] Address: [address] [place] [address] Performed By: #### 5 7021-8 #### [facility] CLIA [id number] [address] [place] [address] 54663 MCH (RBC) [Entitic mass] 29.9 pg Normal 26.0-34.0 [facility] Comment on above: Order Comment: Speci men Type: BLOOD SPECIMEN Ordering Facility: [facility] [place] Address: [address] [place] [id number] Performed By: #### 5 7021-8 #### [facility] CLIA [id number] [address] [place] [address] 03792 MCHC (RBC) [Mass/Vol] 32.6 g/dL Normal 30.5-36.0 [facility] Comment on above: Order Comment: Speci men Type: BLOOD SPECIMEN [facility] Address: [address] [place] [address] Performed By: #### 5 7021-8 #### [facility] CLIA [id number] [address] [place] [address] MCV (RBC) [Entitic vol] 91.9 fL Normal 80.0-100.0 [facility] Comment on above: Order Comment: Speci men Type: BLOOD SPECIMEN Ordering Facility: [facility] Address: [address] [place] [address] Performed By: #### 5 7021-8 #### [facility] CLIA [id number] [address] [place] [address] 68074 Monocytes (Bld) [#/Vol] 0.52 10*3/uL Normal <0.87 [facility] Comment on above: Order Comment: Speci men Type: BLOOD SPECIMEN Ordering Facility: [facility] Address: [address] [place] [address] Performed By: #### 5 7021-8 #### [facility] CLIA [id number] [address] [place] [address] 34586 Monocytes/100 WBC (Bld) 7.6 % Normal [facility] Comment on above: Order Comment: Speci men Type: BLOOD SPECIMEN Ordering Facility: [facility] Address: [address] [place] [address] Performed By: #### 5 7021-8 #### [facility] CLIA [id number] [address] [place] [address] 17850 Neutrophils (Bld) [#/Vol] 4.94 10*3/uL Normal 1.45-7.50 [facility] Comment on above: Order Comment: Speci men Type: BLOOD SPECIMEN Ordering Facility: [facility] Address: [address] [place] [address] Performed By: #### 5 7021-8 #### [facility] CLIA [id number] [address] [place] [address] Neutrophils/100 WBC (Bld) 72.5 % Normal [facility] Comment on above: Order Comment: Speci men Type: BLOOD SPECIMEN Ordering Facility: [facility] Address: [address] [place] [id number] Performed By: #### 5 7021-8 #### [facility] CLIA [id number] [address] [place] [address] Nucleated RBC (Bld) [#/Vol] 10*3/uL Normal <0.01 [facility] Comment on above: Order Comment: Speci men Type: BLOOD SPECIMEN Ordering Facility: [facility] Address: [facility] [address] [place] [id number] Performed By: #### 5 7021-8 #### [facility] CLIA [id number] [address] [place] [address] 29934 Nucleated RBC/100 WBC (Bld) [Ratio] 0.0 /100 WBC Normal [facility] Comment on above: Order Comment: Speci men Type: BLOOD SPECIMEN Ordering Facility: [facility] Address: [address] [place] [id number] Performed By: #### 5 7021-8 #### [facility] CLIA [id number] [address] [place] [address] 94223 Platelet mean volume (Bld) [Entitic vol] 11.4 fL Normal 9.0-12.7 [facility] Comment on above: Order Comment: Speci men Type: BLOOD SPECIMEN Ordering Facility: [facility] Address: [address] [place] [address] Performed By: #### 5 7021-8 #### [facility] CLIA [id number] [address] [place] [address] Platelets (Bld) [#/Vol] 167 10*3/uL Normal 150-400 [facility] Comment on above: Order Comment: Speci men Type: BLOOD SPECIMEN Ordering Facility: [facility] [place] Address: [address] [place] [address] Performed By: #### 5 7021-8 #### [facility] CLIA [id number] [address] [place] [address] 59706 RBC (Bld) [#/Vol] 3.81 10*6/uL Low 3.90-5.20 [facility] Comment on above: Order Comment: Speci men Type: BLOOD SPECIMEN Ordering Facility: [facility] [place] Address: [address] [place] [address] Performed By: #### 5 7021-8 #### [facility] CLIA [id number] [address] [place] [address] 58938 WBC (Bld) [#/Vol] 6.82 10*3/uL Normal 3.70-11.00 [facility] Comment on above: Order Comment: Speci men Type: BLOOD SPECIMEN Ordering Facility: [facility] [place] Address: [address] [place] [address] Performed By: #### 5 7021-8 #### [facility] CLIA [id number] [address] [place] [address] 77934 GESTATIONAL GLUCOSE SCREEN, 1-HOUR, 50 GRAM, NON-FASTINGon 11-20-2023 Glucose [Mass/Vol] 97 mg/dL Normal 74-134 [facility] Comment on above: Order Comment: Speci men Type: BLOOD SPECIMEN Ordering Facility: [facility] [place] Address: [address] [place] [address] Result Comment: [facility] [employer] of Obstetricians and Gynecologists (Alma/Adrián) guidelines state a gestational diabetes mellitus positive screen is made, in women not previously diagnosed with overt diabetes, when the 1 hr plasma glucose level is equal to or above 140 mg/dL. [facility] Coordinator and [facility] [place] recommends a 135 mg/dL cutoff. Performed By: #### G LTGST #### [facility] CLIA [id number] [address] [facility] [id number] [place] [address] [place] T4 Free SerPl-mCncon 024 Free T4 [Mass/Vol] 1.0 ng/dL Normal 0.9-1.7 [facility] Comment on above: Order Comment: Speci men Type: BLOOD SPECIMEN Ordering Facility: [facility] Sub[facility] Address: , , Performed By: #### 5 7021-8 #### [facility] CLIA [id number] [address] [place] [address] TSH SerPl-aCncon 10-22-2023 TSH Qn 4.510 m[IU]/L High 0.270-4.200 [facility] Comment on above: Order Comment: [...] E, et al. 2017 Guidelines of the [place] Thyroid Association for the Diagnosis and Management of Thyroid Disease during and the . Thyroid, 2017:27:3:315-389. Performed By: #### 5 7021-8 #### [facility] CLIA [id number] [address] [place] [address] CBC W Auto Differential pane l (Bld)on 08-08-2023 Basophils (Bld) [#/Vol] 10*3/uL Normal <0.11 [facility] Comment on above: Order Comment: Roycei men Type: BLOOD SPECIMEN Ordering Facility: [facility] Address: , , Performed By: #### 5 7021-8 #### [facility] CLIA [id number] [address] [place] [address] Basophils/100 WBC (Bld) 0.3 % Normal [facility] Comment on above: Order Comment: Speci men Type: BLOOD SPECIMEN Ordering Facility: [facility] Address: , , Performed By: #### 5 7021-8 #### [facility] CLIA [id number] [address] [place] [address] 30192 Differential cell count method Nom (Bld) Auto Normal [facility] Comment on above: Order Comment: Speci men Type: BLOOD SPECIMEN Ordering Facility: [facility] Address: , , Performed By: #### 5 7021-8 #### [facility] CLIA [id number] [address] [place] [address] 39218 Eosinophils (Bld) [#/Vol] 0.06 10*3/uL Normal <0.46 [facility] Comment on above: Order Comment: Speci men Type: BLOOD SPECIMEN Ordering Facility: [facility] Address: , , Performed By: #### 5 7021-8 #### [facility] CLIA [id number] [address] [place] [address] 56398 Eosinophils/100 WBC (Bld) 0.9 % Normal [facility] Comment on above: Order Comment: Speci men Type: BLOOD SPECIMEN Ordering Facility: [facility] Address: , , Performed By: #### 5 7021-8 #### [facility] CLIA [id number] [address] [place] [address] 55445 Erythrocyte distribution width (RBC) [Ratio] 13.7 % Normal 11.5-15.0 [facility] Comment on above: Order Comment: Speci men Type: BLOOD SPECIMEN Ordering Facility: [facility] Address: , , Performed By: #### 5 7021-8 #### [facility] CLIA [id number] [address] [place] [address] 19090 Hematocrit (Bld) [Volume fraction] 40.1 % Normal 36.0-46.0 [facility] Comment on above: Order Comment: Speci men Type: BLOOD SPECIMEN Ordering Facility: External Submitter Address: , , Performed By: #### 5 7021-8 #### [facility] CLIA [id number] [address] [place] [address] 60064 Hemoglobin (Bld) [Mass/Vol] 13.4 g/dL Normal 11.5-15.5 [facility] Comment on above: Order Comment: Speci men Type: BLOOD SPECIMEN Ordering Facility: [facility] Address: , , Performed By: #### 5 7021-8 #### [facility] CLIA [id number] [address] [place] [address] 40385 Immature granulocytes (Bld) [#/Vol] 10*3/uL Normal <0.10 [facility] Comment on above: Order Comment: Speci men Type: BLOOD SPECIMEN Ordering Facility: [facility] Address: , , Performed By: #### 5 7021-8 #### [facility] CLIA [id number] [address] [place] [address] 81682 Immature granulocytes/100 WBC (Bld) 0.3 % Normal [facility] Comment on above: Order Comment: Speci men Type: BLOOD SPECIMEN Ordering Facility: [facility] Address: , , Performed By: #### 5 7021-8 #### [facility] CLIA [id number] [address] [place] [address] 35557 Lymphocytes (Bld) [#/Vol] 1.67 10*3/uL Normal 1.00-4.00 [facility] Comment on above: Order Comment: Speci men Type: BLOOD SPECIMEN Ordering Facility: [facility] Address: , , Performed By: #### 5 7021-8 #### [facility] CLIA [id number] [address] [place] [address] 15857 Lymphocytes/100 WBC (Bld) 24.9 % Normal [facility] Comment on above: Order Comment: Speci men Type: BLOOD SPECIMEN Ordering Facility: [facility] Address: , , Performed By: #### 5 7021-8 #### [facility] CLIA [id number] [address] [place] [address] 53270 MCH (RBC) [Entitic mass] 31.1 pg Normal 26.0-34.0 [facility] Comment on above: Order Comment: Speci men Type: BLOOD SPECIMEN Ordering Facility: [facility] Address: , , Performed By: #### 5 7021-8 #### [facility] CLIA [id number] [address] [place] [address] 05820 MCHC (RBC) [Mass/Vol] 33.4 g/dL Normal 30.5-36.0 [facility] Comment on above: Order Comment: Speci men Type: BLOOD SPECIMEN Ordering Facility: [facility] Address: , , Performed By: #### 5 7021-8 #### [facility] CLIA [id number] [address] [place] [address] 95523 MCV (RBC) [Entitic vol] 93.0 fL Normal 80.0-100.0 [facility] Comment on above: Order Comment: Speci men Type: BLOOD SPECIMEN Ordering Facility: [facility] Address: , , Performed By: #### 5 7021-8 #### [facility] CLIA [id number] [address] [place] [address] 83602 Monocytes (Bld) [#/Vol] 0.50 10*3/uL Normal <0.87 [facility] Comment on above: Order Comment: Speci men Type: BLOOD SPECIMEN Ordering Facility: [facility] Address: , , Performed By: #### 5 7021-8 #### [facility] CLIA [id number] [address] [place] [address] 14080 Monocytes/100 WBC (Bld) 7.5 % Normal [facility] Comment on above: Order Comment: Speci men Type: BLOOD SPECIMEN Ordering Facility: [facility] Address: , , Performed By: #### 5 7021-8 #### [facility] CLIA [id number] [address] [place] [address] 84515 Neutrophils (Bld) [#/Vol] 4.44 10*3/uL Normal 1.45-7.50 [facility] Comment on above: Order Comment: Speci men Type: BLOOD SPECIMEN Ordering Facility: External [facility]mitter Address: , , Performed By: #### 5 7021-8 #### [facility] CLIA [id number] [address] [place] [address] 74755 Neutrophils/100 WBC (Bld) 66.1 % Normal [facility] Comment on above: Order Comment: Speci men Type: BLOOD SPECIMEN Ordering Facility: [facility] Address: , , Performed By: #### 5 7021-8 #### [facility] CLIA [id number] [address] [place] [address] 84099 Nucleated RBC (Bld) [#/Vol] 10*3/uL Normal <0.01 [facility] Comment on above: Order Comment: Speci men Type: BLOOD SPECIMEN Ordering Facility: External Submitter Address: , , Performed By: #### 5 7021-8 #### [facility] CLIA [id number] [address] [place] [address] 92968 Nucleated RBC/100 WBC (Bld) [Ratio] 0.0 /100 WBC Normal [facility] Comment on above: Order Comment: Speci men Type: BLOOD SPECIMEN Ordering Facility: External [facility]mitter Address: , , Performed By: #### 5 7021-8 #### [facility] CLIA [id number] [address] [place] [address] 85143 Platelet mean volume (Bld) [Entitic vol] 12.1 fL Normal 9.0-12.7 [facility] Comment on above: Order Comment: Speci men Type: BLOOD SPECIMEN Ordering Facility: External Submitter Address: , , Performed By: #### 5 7021-8 #### [facility] CLIA [id number] [address] [place] [address] 44587 Platelets (Bld) [#/Vol] 148 10*3/uL Low 150-400 [facility] Comment on above: Order Comment: Speci men Type: BLOOD SPECIMEN Ordering Facility: External Submitter Address: , , Performed By: #### 5 7021-8 #### [facility] CLIA [id number] [address] [place] [address] 28466 RBC (Bld) [#/Vol] 4.31 10*6/uL Normal 3.90-5.20 [facility] Comment on above: Order Comment: Speci men Type: BLOOD SPECIMEN Ordering Facility: External Submitter Address: , , Performed By: #### 5 7021-8 #### [facility] CLIA [id number] [address] [place] [address] 36866 WBC (Bld) [#/Vol] 6.71 10*3/uL Normal 3.70-11.00 [facility] Comment on above: Order Comment: Speci men Type: BLOOD SPECIMEN Ordering Facility: External Submitter Address: , , Performed By: #### 5 7021-8 #### [facility] CLIA [id number] [address] [place] [address] 60191 HBV surface Ag Ser Qlon 07-20 HBV surface Ag Ql (S) Negative Normal Negative [facility] Comment on above: Order Comment: Speci men Type: BLOOD SPECIMEN Ordering Facility: External Submitter Address: , , Performed By: #### 5 7021-8 #### [facility] CLIA [id number] [address] [place] [address] 60912 HCV Ab Ser Qlon 08-08-2023 HCV Ab Ql (S) Negative Normal Negative [facility] Comment on above: Order Comment: Speci men Type: BLOOD SPECIMEN Ordering Facility: External Submitter Address: , , Result Comment: The result suggests no evidence of active infection with Hepatitis C virus. Should recent infection be suspected, repeat testing may be considered 4-6 weeks after this draw. Performed By: #### 1 6128-1 #### [facility] CLIA [id number] [address] [place] [address] [place] HIV 1+2 Ab IA Qlon 4 HIV 1 and 2 Ab IA.rapid Nom (S/P/Bld) Normal [facility] Comment on above: Order Comment: Speci men Type: BLOOD SPECIMEN Ordering Facility: External Submitter Address: , , Result Comment: Test not indicated. Performed By: #### 5 7021-8 #### [facility] CLIA [id number] [address] [place] [address] 32891 HIV 1+2 Ab+HIV1 p24 Ag IA Ql Non-Reactive Normal Nonreactive [facility] Comment on above: Order Comment: Speci men Type: BLOOD SPECIMEN Ordering Facility: External Submitter Address: , , Performed By: #### 5 7021-8 #### [facility] CLIA [id number] [address] [place], [place] [address] HIV immunoassay testing algorithm interpretation (S/P/Bld) [Interp] Normal [facility] Comment on above: Order Comment: Speci vishnu Type: BLOOD SPECIMEN Ordering Facility: External Submitter Address: , , Result Comment: No e vidence of HIV-1 or HIV-2 infection. Should recent infection be suspected, repeat testing may be considered 2-3 weeks after this draw. [place] Rev. Code 3701.243(E): This information has been [...] diagnoses. Performed By: #### 5 7021-8 #### [facility] CLIA [id number] [address] [place] [address] 81543 HbA1c (Bld)on 08-08-2023 Average glucose Estimated from glycated hemoglobin (Bld) [Mass/Vol] 105 mg/dL Normal [facility] Comment on above: Order Comment: Tammy mares Type: BLOOD SPECIMEN Ordering Facility: External Submitter Address: , , Result Comment: eAG: (Estimated average glucose) is a calculated value from HgbA1c and is operations support representative of the average blood glucose level in the last 2-3 month period. Performed By: #### 5 5454-3 #### [facility] CLIA [id number] [facility] [place] [address] [place] HbA1c (Bld) [Mass fraction] 5.3 % Normal 4.3-5.6 [facility] Comment on above: Order Comment: [facility] Type: BLOOD SPECIMEN Ordering Facility: External Submitter Address: , , Result Comment: [place] Diabetes Association guidelines indicate that patients with HgbA1c in the range 5.7-6.4% are at increased risk for development of diabetes, and intervention by lifestyle modification may be beneficial. HgbA1c greater or equal to 6.5% is considered diagnostic of diabetes. Performed By: #### 5 5454-3 #### [facility] CLIA [id number] [address] [place] [address] [place] RPR Ser Qlon 08-08-2023 Reagin Ab RPR Ql (S) Non-Reactive Normal Nonreactive [facility] Comment on above: Order Comment: [facility] Type: BLOOD SPECIMEN Ordering Facility: [facility] [place] Address: [facility] [address] [place] [address] Result Comment: Rapi d plasma reagin (RPR) test detects non-treponemal antibodies. RPR may be reactive in a variety of infectious and non-infectious conditions. Correlation with clinical picture and with treponemal antibody results is required for final interpretation. Performed By: #### G LTGST #### [facility] CLIA [id number] [address] [place] [address] [place] RUBELLA IGG ANTIBODYon 08-07 RUBELLA IGG AB, QUAL Positive Normal Positive [facility] Comment on above: Order Comment: [facility] Type: BLOOD SPECIMEN Ordering Facility: [facility] [place] Address: [address] [place] [address] Result Comment: The result suggests recent or past exposure to Rubella virus or history of Rubella vaccination. Positive result may also be seen due to presence of passively-transferred antibodies. Please correlate with patient's history. Performed By: #### G LTGST #### [facility] CLIA [id number] [address] [place] [address] [place] TYPE + SCREENon 08-08-2023 ABO A Normal [facility] Comment on above: Order Comment: Speci men Type: BLOOD SPECIMEN Ordering Facility: External Submitter Address: , , Performed By: #### T SCR #### [facility] CLIA [id number] [address] [place] [address] [place] HISTORICAL AB SCR STATUS Negative Normal [facility] Comment on above: Order Comment: Speci men Type: BLOOD SPECIMEN Ordering Facility: External Submitter Address: , , Performed By: #### T SCR #### [facility] CLIA [id number] [address] [place] [address] [place] Rh Nom (Bld) Positive Normal [facility] Comment on above: Order Comment: Speci men Type: BLOOD SPECIMEN Ordering Facility: External Submitter Address: , , Performed By: #### T SCR #### [facility] CLIA [id number] [address] [place] [address] [place] TYPE AND SCREEN EXPIRATION 08/11/2023 23:59 Normal [facility] Comment on above: Order Comment: Speci men Type: BLOOD SPECIMEN Ordering Facility: External Submitter Address: , , Performed By: #### T SCR #### [facility] CLIA [id number] [address] [place] [address] [place] B-HCG SerPl-aCncon 4 HCG.beta subunit Qn m[IU]/mL Normal <5.0 [facility] Comment on above: Order Comment: Speci men Type: BLOOD SPECIMEN Ordering Facility: External Submitter Address: , , Result Comment: Dianne logan Performed By: #### 5 7021-8 #### [facility] CLIA [id number] [address] [place] [address] [facility] JESSEE ALMODOVAR ([id number]) 1990 [facility] Date Time Provider Department 05/16/23 VANESSABENJAMINTEDDYRONI CHAN During your visit today, we recorded the following information about you: Allergies As of Date: 05/16/2023 (No Known Allergies) Date Reviewed: 04/11/2023 Reviewed by: Macy Jones APRN.PHARMACOLOGY TEACHER - Fully Assessed Reason for Visit: Lab Orders [1688] Primary Visit Diagnosis:Possible , not confirmed [Z32.00] Order(s):HCG QUANTITATIVE [SQHCGQT] Order #: [id number] FUTURE Prescriptions as of 05/16/2023 - doxycycline [...] Status:Closed by RONI DUMAS on 05/16/23 Normal [facility] TOX SCREEN ROUT URon 024 Amphetamines Confirm (U) [Mass/Vol] Negative Normal Negative [facility] Comment on above: Order Comment: Speci men Type: BLOOD SPECIMEN Ordering Facility: [facility] [place] Address: [facility] [address] [place] [address] Result Comment: Cuto ff threshold at 1000 ng/mL. Performed By: #### G LTGST #### [facility] CLIA [id number] [address] [place] [address] [place] BARBITURATES, URINE Negative Normal Negative [facility] Comment on above: Order Comment: Speci men Type: BLOOD SPECIMEN Ordering Facility: [facility] [place] Address: [facility] [address] [place] [address] Result Comment: Cuto ff threshold at 200 ng/mL. Performed By: #### G LTGST #### [facility] CLIA [id number] [address] [place] [address] [place] BENZODIAZEPINES, UR Negative Normal Negative [facility] Comment on above: Order Comment: Speci men Type: BLOOD SPECIMEN Ordering Facility: [facility] [place] Address: [facility] [address] [place] [address] Result Comment: Cuto ff threshold at 200 ng/mL. Performed By: #### G LTGST #### [facility] CLIA [id number] [address] [place] [address] [place] Cannabinoids Screen Ql (U) Negative Normal Negative [facility] Comment on above: Order Comment: Speci men Type: BLOOD SPECIMEN Ordering Facility: [facility] [place] Address: [facility] [address] [place] [address] Result Comment: Cuto ff threshold at 50 ng/mL. Performed By: #### G LTGST #### [facility] CLIA [id number] [facility] [place] [address] [place] Cocaine Ql (U) Negative Normal Negative [facility] Comment on above: Order Comment: Speci men Type: BLOOD SPECIMEN [facility] Address: [facility] [address] [place] [address] Result Comment: Cuto ff threshold at 300 ng/mL. Performed By: #### G LTGST #### [facility] CLIA [id number] [address] [place] [address] [place] Ethanol (U) [Mass/Vol] <11 Normal <11 [facility] Comment on above: Order Comment: Speci men Type: BLOOD SPECIMEN [facility] Address: [facility] [address] [place] [address] Performed By: #### G LTGST #### [facility] CLIA [id number] [facility] [address] [place] Opiates Screen Ql (U) Negative Normal Negative [facility] Comment on above: Order Comment: Speci men Type: BLOOD SPECIMEN Ordering Facility: [facility] [place] Address: [facility] [address] [place] [address] Result Comment: Cuto ff threshold at 300 ng/mL. Performed By: #### G LTGST #### [facility] CLIA [id number] [address] [place] [address] [place] oxyCODONE cutoff Screen (U) [Mass/Vol] Negative Normal Negative [facility] Comment on above: Order Comment: Speci men Type: BLOOD SPECIMEN Ordering Facility: [facility] [place] Address: [facility] [address] [place] [address] Result Comment: Cuto ff threshold at 100 ng/mL. Performed By: #### G LTGST #### [facility] [facility] CLIA [id number] [address] [place] [address] Phencyclidine Ql (U) Negative Normal Negative [facility] Comment on above: Order Comment: Speci men Type: BLOOD SPECIMEN Ordering Facility: [facility] Address: [facility] [address] [place] [address] Result Comment: Cuto ff threshold at 25 ng/mL. Performed By: #### G LTGST #### [facility] CLIA [id number] [address] [place] [address] [place] B-HCG SerPl-aCncon 4 HCG.beta subunit Qn m[IU]/mL Normal <5.0 [facility] Comment on above: Order Comment: Speci men Type: BLOOD SPECIMEN Ordering Facility: External Submitter Address: , , Result Comment: Dianne logan Performed By: #### 5 [id number] #### [facility] CLIA [id number] [address] [place], [place] [id number] CNOVon 02-25-2023 CNOV Office Visit (ORTHMN ) JESSEE ALMODOVAR ([id number]) 1990 F [facility] Date Time Provider Department 02/25/23 1:00 [...] with a (more content not included)... Normal [facility] XR HIP 3V PELV+ AP/LAT RTon 02-20-2023 [...] any questions regarding this interpretation, please call [phone]. If you are unable to reach us at the number above, please feel free to contact [facility] eRadiology at [phone]. [id number] Normal [facility] XR Pelvis and Hip - [...] any questions regarding this interpretation, please call [phone]. If you are unable to reach us at the number above, please feel free to contact [facility] at [phone]. DIVISION OF RADIOLOGY * * *Final Report* [...] unremarkable. DIVISION OF RADIOLOGY Provider, Tom Salinas [facility] - 02/20/2023 * * *Final [...] any questions regarding this interpretation, please call [phone]. If you are unable to reach us at the number above, please feel free to contact [facility] eRadiology at [phone]. 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] Order(s):XR HIP GENERAL 3V PELV/AP/LAT RIGHT [[id number]] Order #: [id number] FUTURE Prescriptions as of 02/17/2023 - amphetamine-dextroamphe [...] Status:Closed by TIANA CRONIN on 02/17/23 Normal [facility] CBC W Auto Differential pane l (Bld)on 11-15-2022 Basophils (Bld) [#/Vol] 0.04 10*3/uL <0.11 k/uL [facility] Basophils/100 WBC (Bld) 0.8 % [facility] Differential cell count method Nom (Bld) Auto [facility] Eosinophils (Bld) [#/Vol] 0.11 10*3/uL <0.46 k/uL [facility] Eosinophils/100 WBC (Bld) 2.1 % [facility] Erythrocyte distribution width (RBC) [Ratio] 13.7 % 11.5 - 15.0 % [facility] Hematocrit (Bld) [Volume fraction] 46.7 % High 36.0 - 46.0 % [facility] Hemoglobin (Bld) [Mass/Vol] 15.6 g/dL High 11.5 - 15.5 g/dL [facility] Immature granulocytes (Bld) [#/Vol] <0.10 k/uL [facility] Immature granulocytes/100 WBC (Bld) 0.2 % [facility] Lymphocytes (Bld) [#/Vol] 1.77 10*3/uL 1.00 - 4.00 k/uL [facility] Lymphocytes/100 WBC (Bld) 33.7 % [facility] MCH (RBC) [Entitic mass] 31.8 pg 26.0 - 34.0 pg [facility] MCHC (RBC) [Mass/Vol] 33.4 g/dL 30.5 - 36.0 g/dL [facility] MCV (RBC) [Entitic vol] 95.3 fL 80.0 - 100.0 fL [facility] Monocytes (Bld) [#/Vol] 0.64 10*3/uL <0.87 k/uL [facility] Monocytes/100 WBC (Bld) 12.2 % [facility] Neutrophils (Bld) [#/Vol] 2.68 10*3/uL 1.45 - 7.50 k/uL [facility] Neutrophils/100 WBC (Bld) 51.0 % [facility] Nucleated RBC (Bld) [#/Vol] <0.01 k/uL [facility] Nucleated RBC/100 WBC (Bld) [Ratio] 0.0 /100 WBC [facility] Platelet mean volume (Bld) [Entitic vol] 11.3 fL 9.0 - 12.7 fL [facility] Platelets (Bld) [#/Vol] 154 10*3/uL 150 - 400 k/uL [facility] RBC (Bld) [#/Vol] 4.90 10*6/uL 3.90 - 5.2 0 m/uL [facility] WBC (Bld) [#/Vol] 5.25 10*3/uL 3.70 - 11. 00 k/uL [facility] CBC W Auto Differential pane l (Bld)on 08-09-2022 Basophils (Bld) [#/Vol] 0.03 10*3/uL <0.11 k/uL [facility] Basophils/100 WBC (Bld) 0.6 % [facility] Differential cell count method Nom (Bld) Auto [facility] Eosinophils (Bld) [#/Vol] 0.05 10*3/uL <0.46 k/uL [facility] Eosinophils/100 WBC (Bld) 0.9 % [facility] Erythrocyte distribution width (RBC) [Ratio] 13.6 % 11.5 - 15.0 % [facility] Hematocrit (Bld) [Volume fraction] 42.0 % 36.0 - 46.0 % [facility] Hemoglobin (Bld) [Mass/Vol] 13.5 g/dL 11.5 - 15.5 g/dL [facility] Immature granulocytes (Bld) [#/Vol] <0.10 k/uL [facility] Immature granulocytes/100 WBC (Bld) 0.4 % [facility] Lymphocytes (Bld) [#/Vol] 1.57 10*3/uL 1.00 - 4.00 k/uL [facility] Lymphocytes/100 WBC (Bld) 29.0 % [facility] MCH (RBC) [Entitic mass] 30.5 pg 26.0 - 34.0 pg [facility] MCHC (RBC) [Mass/Vol] 32.1 g/dL 30.5 - 36.0 g/dL [facility] MCV (RBC) [Entitic vol] 94.8 fL 80.0 - 100.0 fL [facility] Monocytes (Bld) [#/Vol] 0.47 10*3/uL <0.87 k/uL [facility] Monocytes/100 WBC (Bld) 8.7 % [facility] Neutrophils (Bld) [#/Vol] 3.27 10*3/uL 1.45 - 7.50 k/uL [facility] Neutrophils/100 WBC (Bld) 60.4 % [facility] Nucleated RBC (Bld) [#/Vol] <0.01 k/uL [facility] Nucleated RBC/100 WBC (Bld) [Ratio] 0.0 /100 WBC [facility] Platelet mean volume (Bld) [Entitic vol] 11.1 fL 9.0 - 12.7 fL [facility] Platelets (Bld) [#/Vol] 145 10*3/uL Low 150 - 400 k/uL [facility] RBC (Bld) [#/Vol] 4.43 10*6/uL 3.90 - 5.2 0 m/uL [facility] WBC (Bld) [#/Vol] 5.41 10*3/uL 3.70 - 11. 00 k/uL [facility] XR Pelvis and Hip - [...] any questions regarding this interpretation, please call [phone]. If you are unable to reach us at the number above, please feel free to contact [facility] at [phone]. DIVISION OF RADIOLOGY * * *Final Report* [...] in the interval. DIVISION OF RADIOLOGY Provider, [facility] - 08/01/2022 * * *Final [...] any questions regarding this interpretation, please call [phone]. If you are unable to reach us at the number above, please feel free to contact [facility] eRadiology at [phone]. [facility] Radiology Study observation (narrative) [facility] XR Pelvis and Hip - right AP and Lateral frogOrdered By: Ccf Provider on 08-01-2022 [facility] Ambulatory Visit Summaryon 0 05-26-2022 Ambulatory [...] Up with CHELSEA KRAUS DO When: Where: [facility] [address] [place] [phone]- Medications What How Much When Why Instructions New amoxicillin (amoxicillin 500 mg Cap) 1 Capsules By Mouth Every 12 hours Strep pharyngitis Duration: 10 Days Pickup at [facility] 1985 Unchanged biotin Contact prescribing physician if [...] physician if questions or concerns Pharmacy Information [facility]: [address] [place] [id number] [phone] Allergies No Known Allergies Problems Ongoing - [...] these instructions at home: Medicines ? Take cqzp-gje-wlnweln and prescription medicines only as told by [...] drinking cup (more content not included)... 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 No ndfn-osq-kmxppjs medications today. Review of Systems PHQ Score [...] day(s), # 20 cap(s), Refills(s) 0, Pharmacy: [facility] 1984, 172, cm, 05/26/22 9:34:00 [...] Acute pharyngitis, unspecified) Ordered: Rapid Strep POC 34372 Follow-up With When Contact Information CHELSEA KRAUS DO [facility] [address] [place] [phone]- Additional Instructions: Patient Education Strep Throat, Adult, Iuts-wj-Epom BMI for Adults Problem List/Past Medical History [...] Strep POC Result: Positive (05/26/22 09:56:00) Normal [facility] Comment on above: Result Comment: Elec [...] these instructions at home: Medicines ? Take tlkr-nje-tdlwiul and prescription medicines only as told by [...] Reviewed: 06/25/2019 Elsevier Patient Education ? 2019 [employer] Nutrition BMI for Adults Body mass index (BMI) is a number that is calculated from a person's weight and height. BMI may help to estimate how much of a person's weight is composed of fat. BMI can help identify those who may be (more content not included)... Normal [facility] Coding Summary.on 02-26-2022 Coding Summary. [id number] Gh0 bWw+PGhlYWQ+IS7RVNJlO83 elVWgdX6MP4aFHT5VCPEUMX YDKH7FXX6siRA5QUztW1Ddp iAv HdrtnZBfAG97UXd0DZT8eDb wIBtoqE8zpGHyM1q7OuFyHQ 52nB08JAxnMUDjOyB9ArWpj jsgbWFy N4faLvByjTSwVdf+PHRhYmx lIHdpZHRoPScxMDAlJyBzdH urUP5tTj5vHGDhBDFizLajq HNlOiBj o1faEIGuMFfmYG5lzBraO8B klJC3XULvj4a9Gr43sZO+PH NfHXF2uPknUUhcv226LxOgs 0ikRFD6 rGFzWQkmMFL0Q09jm1B0LEI oLVYnFBV8yAD6fC6neIqgkn akT9DcuSKoZxK5QWP6jOXas M8vfOjp ihslmR5yWbf+A01BOO6VWJD OMV0GCmg6T9SpIarpcNA+PC 87VEKiHL36cUYjsWAww3orm Ls7YzXn UQPlYHS3fEhqBQydt2JgPVQ dV47siBPcw7X2ESJvvVqoeG GvTcPiiZX3nM5kGQhsowthv 2hvdzsn Jdziy4voyz01hH15Y05fKVt qKBYzGBQ8JSUaWVMdzIebzk 6fwN9oSr2+BDwxm1aul2omu Am7ToAd DSLxfmXtlOtbVWF6v6AiEa0 6D5BfrHcky8BeZiu9aj31yY Mcm2S1qVE0WVlnCSKtiM3uP WxlZnQ6 ZHFySqTseI98yKSlKAsmJv0 fzYrbhQaqYU4xOWHvdzquHG BkvT0eFIGirLHocZesJO9bU TBpbjtm f221QsKyUYP1RSYaqXWeO4H kkC0kEhEcRFIlBRWvZ8BezS BoABjfJ677IQxgVjL8RPArn kAqW8Ku YKAjlYepFkK1k9Z9Rp6Im7A bqmhgVTG7ZZmjIZMlXgV2Jg WjUmH6W4SpOrj9ZPDktAlzO H7sU7Bc KORuokaeificzPN0RBUuLPZ qwK35yEZcDAsdMq7wy8C2u9 75DKTrXDQfwJ83Ad7apEwtK TBwdCBU hX5rmrrzh5mraubxAiPvAGI aCPr6SUr9QMZijYjfGwFoTN D0BfQ7ENY1bOPisE7qxIbjf zbyeJ1w Oyc+U11enY9fCAK3OZU1qhs oRVHcgjTzAW72BS18X3EgWa wvdGFibGU+PGRpdiBzdHlsZ F5dVcOy d2weo0FwBXtbC9XqYLDnUId cCkz3EGJyPKK2tPC8bD9lIL TfOWrgw4A5wJE6O1EeycBmp t9oo7ol HNXuVKbhX99jsPEzv3M7AUK pwKZ7UPBzjDmvKeSakR02Yz c+MNNewPdjv2YsDyani6gwq 9wnjUa6 HaWqPPBrvaIhjRszKOT0v2Z gNk97I00iJAlbEPVqJJQzWV IwPUYzpRngqu2bcD4bYy8+P GNvbCB3 qXU1lR0mBVStAsY2IAsgY39 5XsEziYNuDbsbv9bjl1ewaO g0EcAtFKIzwnVitVzmHTG4l 3TfGl87 Y78fMNgrPMTxZDPzHFZyQHY ghBrgtw5ssY7lUl2+PC9jb2 tytg47lS08xTA+IEBdAKI9p WxlPSdw WKWmcZ7qSMmnFuH6LJNcIcW fiH80gFOzPPcvDt2gxQvsnZ nmDV0oWOOiqxcfv721MoDth 2xkIDEw lKSsYHujDOW7M44aq7V4INY xFBInLVP9bDY8kY2hbZnbha ogbGVmdDsgdmVydGljYWwtY EfgM736 IHRvcDsnPlBhdGllbnQgTmF aHIi8H2HaRdj5FDYazDedKB 6bvPXtNGfaKp4hhUhxlIigH U8vJHOa camqt907HzCtp0ccSMBdyTU bUQndLIH3A68rd8H1PRGrVP SdAOV7bZW1sO2pfBcykqwnb GVmdDsg lpFgoUegWEwtYJrfC592QPW mqTkbPgDkqxRgCONboTW5BM 78YD10vIKth1A9uFA8Z4FsY GRpbmct cccdaOD1RVKnSFOnbY02Ds9 geSpoYo7oFIObSGN0FGGooN MrG1ZpfC1qWwVrFWTuULJnJ 3RleHQt VTfyL462CBsrGsB3AGOccmS yD2PiYJFczTtaEaH2m9X2Fc 4LE2F6PF72MR80uSVyt0O1w SJ9Y6Py KEZbqgqlgusncQW7GPPgDWN clN25Xj0xrXgvTk5hDMIcWK U8DCVkaVExV8ZqzP6rTkEgT DAwMDAw P0UtfSQgUUdyF050UBdnVzH 7SYZrkhFbE8CxCAApySknHd W7u4O9Lv5JLYb6WY67KS92t JXip0U9 yMJ0Y3OiCWEcdbpwiwnzjVV 4CXXqRQHibE42Ul6ifEtiNi 3jQTTqNDK1DUKyiSXtU2Ovh K2vFrKz FHEyBCOeW3KlnEUvZLvzO99 8UAzrTnI5QJBaepPiL5CgRW AjyPjiKsB6p6H9Yn3AFDNmU N33YVD0 iJF5RU80KK24A6EsMirknAX ibGU+PHRhYmxlIHdpZHRoPS dtLSWeCsKcqDdpHE2fIj8kS GVyLWNv cRmibOLdGtKdp5qbWEAcGAm uDP1wuAsrK4XklSS9DLVwy3 b1Ly35X54zI2VomBX+PGNvb ZX9qRG6 bY3lNrHfSwG6BAtpS865VvU mcDMtGjtvp2skt8bknWg3Wn T9NFAnwtOsyNplXKK5a0CnY h60L44f IHdpZHRoPSIxNSUiIHZhbGl nyh6ifJ2gYl8+TXDpvQI8uY Q4pT4eKlYhCwV2DPucG648B nRvcCIv Uygjc4ydu8bwxFk0QdZyVQJ soyZukGiaZPO9x1LtYe23F6 WhbUkpk1MsIca3an96gXNsh 9X7yDY2 G1KgHIIpxflwyFLsnYcrGA7 sIXBlyfajXLXjrQ5mNPQsQ8 u7MoZlAlL9ACllD3KsosT9E DEwcHQg CEzzZLA3W97rx4E1KPUzGJJ yIYB7uVM7aK6yyVlzilfpeA VmdDsgdmVydGljYWwtYWxpZ 246IHRv kKxiOWKqnX1lZCSfrHSbdIx uRT2lEWVrcehhPaaLBFhVJP rUEzopMAJBLM24H1GkQtl7C CBzdHls VS2thIAuYXopCs5okHbmuYn kAU8bYZLdqczwQEXtgC2yAK QffQUkmIpfPO1oGPIwzgbmj 250OiAx JPG8UBKyxVZyQ8YxsO8tLfV yXQKmHNEzG9OzhZKdPOofH4 10CPvuQqV2BKAbqrNyZ4WqY WFsaWdu NuZ0v6F0Wk0nGG5bUN0xPNn zIN97PZ69eVQuz2T8oYT0J5 NrRZEztwakzegsgJA8TTVqI DUwaW47 zFYnQPcpRy4ls9I3i414ZSZ lAQTxcC97It2gpXvuNWYqmY BBuD2alvwzc7lnwxurUtMsD DAwMDt0 KVd2LXStjMnnOvIsKTQ9OlZ 5PYQ6aAJmyI8xwRoekmpqiN 9wOyc+ZlZdMXHilrG8E5TqW tv8EIOt xTztCI9ymKCkNXtkSt3giRv kyWmsKX5rEGXmqnsmGYLjnK 3tSSTakTFhtOldCO6nEJQwu trgb470 ToQkSOM5HOUyuGVyC2CttB9 oGbYaTOQjHASrP9TaiGEoZS pmT170NBusRuI8TFVauzDaQ 2FsLWFs fXopOjE5k0S1Qr8EUU3ukZX 2K3TpDfb9SROqkNhuCB5wlH XoLDnsDo5nfKerxXwcWD7wX TBpbjtw PFMhyJ3eKQHnsRUfxWedUM0 zNFZptajuv362ZgXsFPL3MS MbzHNoN5IfrZ7eNiDoLTUiK SJfU0Py dEYbGRamA613DGtfRlH4TSR txcYsW6BeMKHrrShvByR1m9 S0Dd6MfRSnX7PvK5s8X2UpW jwvdHI+ UK21OEHjJT75fOQxuJNse4g whLj1YwUuXPNrOGK4gCbyCB myi5KjHSBpO51plNZzu8N7N GNvbGxh tHMrAmMiuFL8yV6lRMbxuiz gu7yabgsrNayll3pfmm30wL 24O95fPPckAXCzGLLkQGUwH HZhbGln dy0obJ1sLj7+UKVdgXV6zKA 9iU6cBpJjAaY9QXfpR119Hj KmdFVcOqdsp7gub7wriHu0V jIwJSIg xoMlwQacYPB5d0OzGq31F08 sIHdpZHRoPSIyMCUiIHZhbG awbr4inJ3rHv1+FB2qd2uge x21sZ61 dHI+BETwHTG6uYsvPFjnFFC jcV3nYBqbLuW9HEOgBeQebR 63yLHpDGofHw7tmIyrwJyaD E8xIVZj xbjvt128DiBkr0tgHCPdfSY mCIqvEVK1Q54qm1U8RFMbKA FfJSG1mLQ0jY1atOtubkmyi GVmdDsg rzChhKxpGBpcOYcnP612YRP djLveGjOkaQTzD3urcxPQTM 1lOjwvdGQ+XHQyBMA9iFbnD SdwYWRk bH1iAGOzY8z6RgGzAfQ2ZMl eG3PmnmG5NEFcdDQuPINfmQ JEnX8bbtbiq3wutpqlQyHiX DAwMDt0 OVw1ETUorVfxDoRuXLL9EpZ 5TDX2nZUrkU0eeFzydkoatN 9wOyc+RklOOjwvdGQ+PHRkI CN8zAeo GFnrGQFwgT1qRRCpU2d7DvW fTuT9XThkN0RmjgV8GTKwmZ MhPLUgoNWEwC4ddnixu5rdc jogIzAw INGyRCo9WFk9SJVxxSdfIgT uYET2YfW4LVD7tNEjqH6rbR ogpeepiN8tNhx+TVJOOjwvd GQ+PHRk VUA7sQewRTzvBSZsaT3sJNS yI2g6QtEbRqX7GRemX4Zvvm R5WVBwxJZdJHNbgXEMxM0kb qvjv1vf xitePuVhMXMmHXm7TTs6FXV seLvoMjFhULU3YfV2VEO8lM OdoE9vbNuukrkoaO7tAib+U JP8TWF0 XU17XJ08O8FdQmjhyGAicDF +PHRhYmxlIHdpZHRoPScxMD FuUuLzsGndHV4aFs8wGPYeN WNvbGxh cHNl (more content not included)... Normal [facility] Discharge Instructionson Discharge Instructions [id number] CD:127 Normal [facility] ED Clinical Summaryon 2021 ED Clinical Summary [address] [address] ED Clinical Summary Person Information Name: JESSEE ALMODOVAR/[facility] Age: 32 Years : 1990 Sex: Female Language: Irish PCP: Marital Status: Phone: [phone] Visit Id: Visit Reason: Foot pain-swelling; HURT [...] 11:07:01 02/23/2022 11:07:01 ADDRESS: [address] [place] [id number] PHYS DOC NOTES: MEDICAL INFORMATION: Prescriptions Given: PATIENT EDUCATION INFORMATION: Instructions: Foot Sprain; How to Use Cold Therapy, Gfdy-lk-Cylj; Elastic Bandage and RICE Therapy Follow up: With: Address: When: CHELSEA KRAUS [facility], [address] [place] [address] [employer] (1) In 3 days 02/26/2022 Comments: Follow-up with your primary care provider in 3 to 5 days. If symptoms worsen, do not improve, or new symptoms arise please report back to emergency department for further evaluation. DIAGNOSIS: Sprain of left foot Normal [facility] ED Note-Physicianon 02-24-20 ED Note-Physician Basic [...] Information CHELSEA KRAUS In 3 days 02/26/2022 [facility] [address] [place] [phone]- Business (1) Additional Instructions: Follow-up with your primary care provider in 3 to 5 days. If symptoms worsen, do not improve, or new symptoms arise please report back to emergency department for further evaluation. Patient Education Foot Sprain How to Use Cold Therapy, Iunb-pf-Izyy Elastic Bandage and RICE Therapy Attestation Patient seen and evaluated by the physician gallery assistant. Attending physician was present in the emergency department and supervised care. This visit was performed by both the physician and an APC. I performed all aspects of the MDM as documented. This report was transcribed using voice recognition software. Every effort was made to ensure accuracy, however, inadvertently computerized civil technician mistakes may be present. Appropriate healthcare [...] medications Ho (more content not included)... Normal [facility] Comment on above: Result Comment: Elec [...] This may take several hours. ? Take puab-puv-qkmfcec and prescription medicines only as told by [...] is no (more content not included)... Normal [facility] ED Patient Summaryon 022 ED Patient Summary (Inserted Image. Kelsi ble to display) [place] [id number] Patient Discharge Instructions Person Information Name: JESSEE ALMODOVAR Age: 32 Years Arrival Date: 02/23/2022 09:05:13 Discharge Diagnosis: Sprain of left foot Primary Care Physician: Provider Information Primary Provider: Chayo Anne DO [employer] Main Fitter:None The exam and treatment you received in the Emergency Department were for an urgent problem and are not intended as complete care. It is important that you follow up with a doctor, nurse practitioner, or physician?s gallery assistant for ongoing care. If your symptoms become worse or you do not improve as expected and you are unable to reach your usual health care provider, you should return to the Emergency Department. We are available 24 hours a day. JESSEE ALMODOVAR has been given the following list of patient education materials, prescriptions and follow-up instructions: Follow-up Instructions: With: Address: When: [employer], [address] [place], [place] [id number] Business (1) In 3 days 02/26/2022 Comments: [...] Foot Sprain; How to Use Cold Therapy, Yvce-al-Jffs; Elastic Bandage and RICE Therapy A MESSAGE TO ALL PATIENTS REGARDING OPIOIDS PRESCRIPTION OPIOIDS: WHAT YOU NEED TO KNOW Prescription opioids can be used to help relieve unzeoggw-mh-eekzlv pain and are often prescribed following a [...] Visit www.cdc.gov/ (more content not included)... Normal [facility] XR Foot 3+ Views Lefton 11-0 [...] DO Transcribed by: SUZY Technologist: TIM Olguin [facility] XR Pelvis and Hip - right [...] any questions regarding this interpretation, please call [phone]. If you are unable to reach us at the number above, please feel free to contact [facility] at [phone]. DIVISION OF RADIOLOGY * * *Final Report* [...] any questions regarding this interpretation, please call [phone]. If you are unable to reach us at the number above, please feel free to contact [facility] eRadiology at [phone]. [facility] XR Pelvis and Hip - right AP and Lateral frogOrdered By: Ccf Provider on 02-19-2022 [facility] XR Pelvis and Hip - right AP and Lateral frogon 02-18-2022 Radiology Study observation (narrative) [facility] CT ABD/PELV W CONon 02-12-20 CT [...] EMELIA STEWART Date: 2022-02-11 07:23 Normal [facility] US PELVIS AND TRANSVAGon US [...] (POC)on 2021 BILIRUBIN UA (POCT) Negative Negative [facility] CLARITY UA (POCT) Cloudy [facility] COLOR UA (POCT) Yellow [facility] GLUCOSE UA (POCT) Negative Negative mg/dL [facility] HEMOGLOBIN/BLOOD UA (POCT) Trace-intact Abnormal Negative [facility] KETONE UA (POCT) Negative Negative mg/dL [facility] LEUKOCYTES UA (POCT) Small Abnormal Negative [facility] NITRITE UA (POCT) Negative Negative [facility] PH UA (POCT) 6.5 4.5 - 8.0 [facility] Protein Ql (U) Negative Negative mg/dL [facility] SPECIFIC GRAVITY UA (POCT) 1.015 1.005 - 1.030 [facility] UROBILINOGEN UA (POCT) 0.2 E.U./dL Normal E.U./dL [facility] Large Joint Arthro/Inj: R gr eater trochanteric bursa [facility] Vital Signs Date Time Vital Sign Value Performing Clinician Facility 02-10-2024 13:39-0400 Body mass index (BMI) [Ratio] 29.83 kg/m2 [employer] Work Phone: [facility] 02-10-2024 13:39-0400 Body weight 101.15 kg [employer] Work Phone: [facility] 02-10-2024 13:39-0400 Diastolic blood pressure 70 mm[Hg] [employer] Work Phone: [facility] 02-10-2024 13:39-0400 Systolic blood pressure 120 mm[Hg] [employer] Work Phone: [facility] 01-27-2024 10:17-0400 Body mass index (BMI) [Ratio] 29 kg/m2 Franny COSTELLO Work Phone: [facility] 01-27-2024 10:17-0400 Body weight 98.34 kg Franny Hager PA Work Phone: [facility] 01-27-2024 10:17-0400 Diastolic blood pressure 60 mm[Hg] Franny Hager PA Work Phone: [facility] 01-27-2024 10:17-0400 Systolic blood pressure 110 mm[Hg] Franny Hager PA Work Phone: [facility] 02-25-2023 13:16-0500 Body height 185.4 cm Rosas Mckinney MD Work Phone: [facility] 02-25-2023 13:16-0500 Body weight 76.67 kg Rosas Mckinney MD Work Phone: [facility] 07-10-2022 15:15-0400 Body height 181.61 cm Imad Asaad Other [employer] Other 07-10-2022 15:15-0400 Body mass index (BMI) [Ratio] 24.48 kg/m2 Imad Asaad Other [employer] Other 07-10-2022 15:15-0400 Body weight 80.74 kg Imad Asaad Other [employer] Other 07-10-2022 15:15-0400 Diastolic blood pressure 78 mm[Hg] Imad Asaad Other [employer] Other 07-10-2022 15:15-0400 Systolic blood pressure 130 mm[Hg] Imad Asaad Other [employer] Other 05-26-2022 09:29-0500 Blood Pressure Location Roxanne DIMITRI [facility] 05-26-2022 09:29-0500 Body temperature 98.42 [degF] Roxanne MOSLEY [facility] 05-26-2022 09:29-0500 Diastolic blood pressure 78 mm[Hg] Roxanne MOSLEY [facility] 05-26-2022 09:29-0500 Heart rate 115 /min Roxanne MOSLEY [facility] 05-26-2022 09:29-0500 SaO2% (BldA) [Mass fraction] 98 % Roxanne MOSLEY [facility] 05-26-2022 09:29-0500 Systolic blood pressure 120 mm[Hg] Roxanne MOSLEY [facility] 02-23-2022 09:10-0400 Body temperature 98.42 [degF] [facility] 02-23-2022 09:10-0400 Diastolic blood pressure 67 mm[Hg] [facility] 02-23-2022 09:10-0400 Heart rate 88 /min [facility] 02-23-2022 09:10-0400 Respiratory rate 18 /min [facility] 02-23-2022 09:10-0400 SaO2% (BldA) [Mass fraction] 98 % [facility] 02-23-2022 09:10-0400 Systolic blood pressure 141 mm[Hg] [facility] Encounters Encounter Date Encounter Type Care Provider Facility Start: 02-10-2024 End: 02-10-2024 Bamboo flowsheet Guillaume Vasquez DO Work Phone: [facility] Start: 02-10-2024 End: 02-10-2024 [employer]amboo flowsheet Guillaume Pedro DO Work Phone: [facility] Start: 02-10-2024 End: 02-10-2024 flow sheet Guillaume Pedro DO Work Phone: [facility] Comment on above: 35 weeks gestation o f ; Third trimester Start: 02-05-2024 End: 02-05-2024 ambulatory ANUPAMA BROWN Facility:[facility] Start: 01-27-2024 End: 01-27-2024 [employer]amboo flowsheet Franny COSTELLO Work Phone: [facility] Start: 01-27-2024 End: 01-27-2024 Bamboo flowsheet Franny COSTELLO Work Phone: [facility] Start: 01-27-2024 End: 01-27-2024 ambulatory FRANNY HAGER Not Available Start: 01-27-2024 End: 01-27-2024 flow sheet Franny COSTELLO Work Phone: [facility] Comment on above: 33 weeks gestation o f ; Third trimester ; Low iron; Nonintractable headache, unspecified chronicity pattern, unspecified headache type; Constipation, unspecified constipation type Start: 01-19-2024 End: 01-19-2024 ambulatory ANUPAMA DANIELLE BROWN Facility:[facility] Start: 01-13-2024 End: 01-13-2024 ambulatory GUILLAUME PEDRO Not Available Start: 01-05-2024 End: 01-05-2024 ambulatory ANUPAMAMaday BROWN Facility:[facility] Start: 12-30-2023 End: 12-30-2023 ambulatory GUILLAUME PEDRO Not Available Start: 12-16-2023 End: 12-16-2023 ambulatory GUILLAUME PEDRO Not Available Start: 12-08-2023 End: 12-08-2023 ambulatory GUILLAUME R PEDRO Facility:[facility] Start: 11-20-2023 End: 11-20-2023 ambulatory FRANNY HAGER Facility:[facility] Start: 11-18-2023 End: 11-18-2023 ambulatory FRANNY ANGLINEY Not Available Start: 10-22-2023 End: 10-22-2023 ambulatory GUILLAUME R PEDRO Facility:[facility] Start: 10-21-2023 End: 10-21-2023 ambulatory GUILLAUME PEDRO Not Available Start: 10-16-2023 End: 10-16-[address] [facility] Start: 09-24-2023 End: 09-24-2023 ambulatory FRANNY HAGER Not Available Start: 08-26-2023 End: 08-26-2023 ambulatory GUILLAUME PEDRO Not Available Start: 08-08-2023 End: 08-08-2023 ambulatory ANUPAMA BROWN Facility:[facility] Start: 07-24-2023 End: 07-24-2023 ambulatory GUILLAUME PEDRO Not Available Start: 06-04-2023 End: 06-04-2023 ambulatory ASIF SCHAEFER [facility] Start: 06-02-2023 End: 06-02-2023 Phys/qhp telephone evaluation 5-10 min Guillaume Pedro DO Work Phone: [facility] Comment on above: Irregular menses (Pr imary Dx) Start: 06-02-2023 End: 06-02-2023 ambulatory GUILLAUME PEDRO Not Available Start: 05-28-2023 Chart abstracting Guillaume Pedro DO Work Phone: [facility] Start: 05-16-2023 End: 05-16-2023 ambulatory ANUPAMA BROWN Facility:[facility] Start: 05-05-2023 End: 05-05-2023 ambulatory ANUPAMA BROWN Facility:[facility] Start: 05-02-2023 End: 05-02-2023 ambulatory ASIF SCHAEFER [facility] Start: 05-02-2023 End: 05-02-2023 Office outpatient visit 25 minutes Asif Schaefer LAP WINDER-PHARMACOLOGY TEACHER Work Phone: [facility] Comment on above: Attention deficit hy peractivity disorder (ADHD), predominantly inattentive type (Primary Dx); Moderate episode of recurrent major depressive disorder (CMS-HCC); Generalized anxiety disorder Start: 03-04-2023 End: 03-04-2023 ambulatory GUILLAUME VASQUEZ Not Available Start: 02-25-2023 End: 02-25-2023 ambulatory ANUPAMA BROWN Facility:[facility] Start: 02-25-2023 End: 02-25-2023 Office outpatient visit 25 minutes Rosas Mckinney MD Work Phone: Orthopaedics Comment on above: Lytic bone lesion of femur (Primary Dx); Greater trochanteric bursitis of right hip; Chronic pain of right hip; Chronic low back pain, unspecified back pain laterality, unspecified whether sciatica present; Pain of right hip; Bone lesion Start: 02-20-2023 End: 02-20-2023 ambulatory ANUPAMA BROWN Facility:[facility] Start: 02-20-2023 End: 02-20-2023 Subsequent hospital visit [...] 07-10-2022 End: 07-10-2022 ambulatory Emile Mesa Other [facility] Other Start: 07-10-2022 Office outpatient ne w 45 minutes Imad Darrenad [facility] Start: 05-26-2022 End: 05-27-2022 ambulatory Roxanne MOSLEY Facility: [place] Start: 05-26-2022 End: 05-26-2022 Patient encounter procedure Roxanne MOSLEY [facility] Start: 05-08-2022 End: 05-08-2022 ambulatory PRAVIN HAGER Facility: Start: 02-26-2022 End: 02-26-2022 Patient encounter procedure Rosas Mckinney MD Work Phone: Orthopaedics Comment on above: Lytic bone lesion of femur (Primary Dx) Start: 02-23-2022 End: 02-23-2022 Emergency department patient visit Chayo Dayana Facility:[facility] Start: 02-23-2022 End: 02-23-2022 Emergency department patient visit Chayo [facility] Start: 02-18-2022 End: 02-18-2022 Subsequent [...] Dx) Start: 10-04-2021 Orders Only Macy Jones APRN.PHARMACOLOGY TEACHER Work Phone: Hematology/Oncology Comment on above: Acute [...] T SCR #### CC MAIN BLOOD BANK [facility] [id number] [address] [place] [address] [place] Start: 02-25-2023 Arthrocentesis aspir &/inj major jt/bursa w/o us Tiana Cronin PA-C Work Phone: Start: 02-20-2023 Radex hip unilateral with pelvis 2-3 views Roni Dumas MD Work Phone: Start: 08-08-2022 Adult depression scr eening assessment Asif Schaefer LAP WINDER-PHARMACOLOGY TEACHER Work Phone: Start: 08-01-2022 Radex hip unilateral [...] Td Vaccines (4 - Td or Tdap) [facility] Start: 01-04-2030 Urine microalbumin profile DTa P,Tdap,Td Vaccine (4 - Td or Tdap) [facility] Start: 10-20-2028 Screening for malign ant neoplasm of cervix [facility] Start: 03-10-2024 Tobacco Screening Tobacco Screening [facility] Start: 02-23-2024 Screening for malign ant neoplasm of cervix [facility] Start: 02-18-2024 End: 02-18-2024 Patient encounter procedure 02/18/2024 9:40 AM EDT Routine [facility] [address] [place] [address] Franny Hager PA [address] [place], [place] [id number] [facility] Start: 02-10-2024 End: 02-09-2025 Strep B DNA probe, amplification Strep B DNA probe, amplification Lab Routine Third trimester Expected: 02/10/2024 (Approximate), Expires: 02/09/2025 [facility] Work Phone: Comment on above: Expected: 02/10/2024 (Approximate), Expires: 02/09/2025 Start: 02-10-2024 End: 02-10-2024 Patient encounter procedure 02/10/2024 1:00 PM EDT Routine [facility] [address] [place] [address] Guillaume Vasquez, [address] [place] [address] [facility] Start: 12-21-2023 Covid-19 Vaccine ( season) Covid-19 Vaccine ( season) [facility] Start: 12-21-2023 Covid-19 Vaccine ( season) Covid-19 Vaccine ( season) [facility] Start: 12-21-2023 Influenza vaccination Influenza Vacc ine (#1) [facility] Start: 08-09-2023 Adult BMI Screening Adult BMI Screen ing [facility] Start: 08-09-2023 Depression Screening Depression Scre ening [facility] Start: 05-29-2023 End: 05-29-2023 Patient encounter procedure 05/29/2023 8:10 AM EST Office Visit [facility] [address] [place] [id number] Guillaume Vasquez, [address] [place] [address] Irregular menses [facility] Comment on above: Irregular menses Start: 12-20-2022 Covid-19 Vaccine ( season) Covid-19 Vaccine ( season) [facility] Start: 12-20-2022 Influenza vaccination INFLUENZA (#1) [facility] Start: 11-15-2022 End: 01-15-2023 Comprehensive metabolic 2000 panel - Serum or Plasma [facility] Work Phone: Comment on above: Expected: 11/15/2022 , Expires: 01/15/2023 Start: 11-15-2022 End: 01-15-2023 Lipid 1996 panel - Serum or Plasma [facility] Work Phone: Comment on above: Expected: 11/15/2022 , Expires: 01/15/2023 Start: 11-15-2022 End: 01-15-2023 T4/FTI/T4U [facility] Work Phone: Comment on above: Expected: 11/15/2022 , Expires: 01/15/2023 Start: 11-15-2022 End: 01-15-2023 Thyrotropin [Units/volume] in Serum or Plasma [facility] Work Phone: Comment on above: Expected: 11/15/2022 , Expires: 01/15/2023 Start: 08-26-2022 End: 03-28-2023 XR HIP GENERAL 3V PELV/AP/LAT RIGHT XR HIP GENERAL 3V PELV/AP/LAT RIGHT Radiology Routine Lytic bone lesion of femur Expected: 08/26/2022, Expires: 03/28/2023 [facility] Work Phone: Comment on above: Expected: 08/26/2022 , Expires: 03/28/2023 Start: 08-09-2022 End: 10-09-2022 25-hydroxyvitamin D3 [Mass/volume] in Serum or Plasma [facility] Work Phone: Comment on above: Expected: 08/09/2022 , Expires: 10/09/2022 Start: 04-21-2022 DEPRESSION ASSESSMENT DEPRESSION ASS ESSMENT [facility] Start: 12-20-2021 Influenza vaccination INFLUENZA (#1) [facility] Start: 12-06-2021 End: 02-05-2022 Thyrotropin [Units/volume] in Serum or Plasma [facility] Work Phone: Comment on above: Expected: 12/06/2021 , Expires: 02/05/2022 Start: 12-06-2021 End: 02-05-2022 Thyroxine (T4) free [Mass/volume] in Serum or Plasma [facility] Work Phone: Comment on above: Expected: 12/06/2021 , Expires: 02/05/2022 Start: 12-06-2021 End: 02-05-2022 Triiodothyronine (T3) [Mass/volume] in Serum or Plasma [facility] Work Phone: Comment on above: Expected: 12/06/2021 , Expires: 02/05/2022 Start: 11-08-2021 End: 01-08-2022 Choriogonadotropin ( test) [Presence] in Urine [facility] Work Phone: Comment on above: Expected: 11/08/2021 , Expires: 01/08/2022 Start: 11-08-2021 End: 01-08-2022 URINALYSIS, REFLEX MICROSCOPIC [facility] Work Phone: Comment on above: Expected: 11/08/2021 , Expires: 01/08/2022 Start: 04-21-2021 DEPRESSION ASSESSMENT DEPRESSION ASS ESSMENT [facility] Start: 2021 HPV TESTING HPV TESTING [facility] Start: 10-13-2020 COVID-19 VACCINE (3 - Booster for Moderna series) COVID-19 VACCINE (3 - Booster for Moderna series) [facility] Start: 07-10-2020 COVID-19 VACCINE (3 - Booster for Moderna series) COVID-19 VACCINE (3 - Booster for Moderna series) [facility] Start: 07-10-2020 COVID-19 VACCINE (3 - Moderna series) COVID-19 VACCINE (3 - Moderna series) [facility] Start: 02-08-2012 PAP TESTING PAP TESTING [facility] Start: 02-08-2012 Screening for malign ant neoplasm of cervix [facility] Start: 2010 Urine microalbumin profile DTA P,TDAP,TD (1 - Tdap) [facility] Start: 2009 Anxiety Screening Anxiety Screening [facility] Start: 2009 Depression Screening Depression Scre ening [facility] Start: 2009 HEPATITIS C SCREENING HEPATITIS C SC REENING [facility] Start: 2009 HIV SCREENING HIV SCREENING [facility] Start: 2003 Adult depression scr eening assessment DEPRESSION SCREENING [facility] Start: 1997 Pneumococcal vaccination [facility] Start: 1991 HEPATITIS B (1 of 3 - 3-dose series) HEPATITIS B (1 of 3 - 3-dose series) [facility] Bacteria identified in Urine by Culture URINE CULTURE Microbiology Routine Pelvic pain 11/08/2021 11:36 AM EDT [facility] Work Phone: End: 06-02-2023 Drug Screen, [...] lesion 1 Occurrences starting 02/25/2023 until 03/26/2024 [facility] Work Phone: Comment on above: 1 Occurrences starti ng 02/25/2023 until 03/26/2024 End: 03-18-2024 XR HIP GENERAL 3V PELV/AP/LAT RIGHT XR HIP GENERAL 3V PELV/AP/LAT RIGHT Radiology Routine Lytic bone lesion of femur 1 Occurrences starting 02/17/2023 until 03/18/2024 [facility] Work Phone: Comment on above: 1 Occurrences starti ng 02/17/2023 until 03/18/2024 [facility] Immunizations Immunization Date Immunization Notes Care Provider [facility] 01-28-2023 influenza virus vaccine, unspecified formulation Roni Dumas MD Work Phone: [facility] 02-14-2022 influenza virus vaccine, unspecified formulation Rosas Mckinney MD Work Phone: [facility] 01-18-2021 influenza virus vaccine, unspecified formulation Macy Jones APRN.CNP Work Phone: [facility] 03-01-2020 influenza, seasonal, injectable Imad Asaad Other [employer] Other 02-03-2016 influenza, injectable, quadrivalent, contains preservative Imad Asaad Other [employer] Other NEGATED: Highlighted row has not occurred!03-02-2019 influenza, seasonal, injectable Imad Asaad Other [employer] Other Payers Date Payer Category Payer Private Health Insurance [employer] [id number] 2018 Unknown [id number] 1991 Unknown [id number] 2.16.840.1.494398.3.579.2. 593 1991 Unknown [id number] 2.16.840.1.734520.3.579.2. 593 1991 Unknown [id number] 2.16.840.1.091203.3.579.2. 593 1991 Unknown [id number] 2.16.840.1.373232.3.579.2. 727 1991 Unknown [id number] 2.16.840.1.428902.3.579.2. 727 1991 Unknown [id number] 2.16.840.1.355925.3.579.2. 1286 1991 Unknown [id number] 2.16.840.1.603781.3.579.2. 1286 1991 Unknown [id number] 2.16.840.1.411365.3.579.2. 1286 1991 Unknown [id number] 2.16.840.1.014793.3.579.2. 1286 1991 Unknown [id number] 2.16.840.1.189484.3.579.2. 1259 1991 Unknown [id number] 2.16.840.1.106425.3.579.2. 1259 1991 Unknown [id number] 2.16.840.1.773901.3.579.2. 1259 1991 Unknown [id number] 2.16.840.1.895009.3.579.2. 1259 1991 Unknown [id number] 2.16.840.1.854753.3.579.2. 1259 1991 Unknown [id number] 2.16.840.1.575665.3.579.2. 1259 1991 Unknown [id number] 2.16.840.1.650078.3.579.2. 1259 1991 Unknown [id number] 2.16.840.1.005446.3.579.2. 1259 1991 Unknown [id number] 2.16.840.1.810273.3.579.2. 1259 1991 Unknown [id number] 2.16.840.1.680709.3.579.2. 1259 1991 Unknown [id number] 2.16.840.1.044613.3.579.2. 1259 1959 Unknown [id number] Social History Date Type Detail Facility Tobacco smoking stat RUSTIS Tobacco smoking consumption unknown [facility] Work Phone: Start: 1990 Sex Assigned At Not on file [facility] Start: 10-29-2021 End: 02-26-2022 Exposure to SARS-CoV-2 (event) Not sure [facility] Start: 03-21-2013 End: 10-21-2023 Tobacco smoking status Ex-smoker (finding) [facility] Comment on above: quit 01/2013 Start: 02-26-2022 End: 10-21-2023 Sex Assigned At Female [facility] History of tobacco use Current smoker [facility] History of tobacco use Cigarette Smoker [facility] History of tobacco use Passive smoker [facility] Start: 02-11-2022 End: 10-21-2023 Tobacco use and exposure Smokeless tobacco non-user [facility] Start: 02-11-2022 End: 02-26-2022 Alcohol intake Current drinker of alcohol (finding) [facility] Tobacco smoking status Never [facility] Start: 02-26-2022 End: 10-21-2023 History of Social function [facility] Start: 02-25-2023 End: 05-28-2023 Tobacco smoking status NHIS Occasional tobacco smoker [facility] Start: 08-08-2022 Alcohol Comment on the weekends [facility] Start: 05-28-2023 Alcohol Comment caffeine: 2-3 cups per day coffee; soda [facility] Start: 01-13-2024 End: 02-10-2024 Alcoholic beverage intake Ex-drinker (finding) [facility] Start: 06-19-2023 [facility] Functional Status Date Assessment Result Facility 05-26-2022 Functional Status N/A [facility] 02-23-2022 Functional Status N/A [facility] Clinical Notes 08-20-2015 to 02-10-2024 Wilda [...] nursing note reviewed. Exam conducted with a cleaner assistant present. Vitals: Estimated body mass index is [...] Guillaume Vasquez DO documented in this encounter [facility] 01-27-2024 History of Present illness [...] nursing note reviewed. Exam conducted with a cleaner assistant present. Vitals: Estimated body mass index is [...] of: PRAVIN Dumont documented in this encounter [facility] 06-02-2023 History of Present illness Narrative Reason for Appointment: Patient ID: Jessee Almodovar is a 33 y.o. female who presents for No chief complaint on file. Patient presents today via telephone call for a telehealth appointment. Patients Phone #: [phone] (mobile) Current Medications: has a current medication [...] consider referral to [facility] in future Documented by Guillaume Vasquez DO on behalf of: Guillaume Vasquez DO documented in this encounter [facility] 05-02-2023 Miscellaneous Notes [address] [facility] [address] Patient: Jessee Almodovar Date of : 1990 Encounter Date: 05/02/2023 History of Present Illness/Psychiatric Review of Symptoms/Medical Review of Systems: Video Visit via Real-time Synchronous Audiovisual Provider Location: [facility] [address] [address] Patient Location: patient's office in [place], [place] Video Visit Consent Statement: I discussed [...] that there are some limitations compared to gvjo-gr-kqes evaluations. The patient consented to the presence of additional virtual and/or in-person participants. We elected to proceed. Jessee is a 33 y.o. female, established patient, and is logged on via [email or web address] for a follow-up video visit. HPI: Jessee reports she is feeling about the same since last visit. She was unable to tell the difference between taking the immediate release Adderall. She expresses frustrations with still feeling easily distractible. She has had a lot going on since the holidays. She enjoyed Gina and new year's with her immediate family. She traveled to [place] to see her parents, which went well. [...] Moderate episode of recurrent major depressive disorder ([facility]-HCC) Generalized anxiety disorder Medication Changes: yes [...] SCHAEFER CNP, PMP-. BARAK De Leon 05/02/23 0344 documented in this encounter [facility] 05-02-2023 Progress note Formatting of t his note is different from the original. [facility] [address] Patient: Jessee Almodovar Date of : 1990 Encounter Date: 05/02/2023 History of Present Illness/Psychiatric Review of Symptoms/Medical Review of Systems: Video Visit via Real-time Synchronous Audiovisual Provider Location: [facility] [address] [place] [address] Patient Location: patient's office in [place], [place] Video Visit Consent Statement: I discussed [...] that there are some limitations compared to sciv-dr-qxez evaluations. The patient consented to the presence of additional virtual and/or in-person participants. We elected to proceed. Jessee is a 33 y.o. female, established patient, and is logged on via [email or web address] for a follow-up video visit. HPI: Jessee reports she is feeling about the same since last visit. She was unable to tell the difference between taking the immediate release Adderall. She expresses frustrations with still feeling easily distractible. She has had a lot going on since the holidays. She enjoyed Gina and new 's with her immediate family. She traveled to [place] to see her parents, which went well. [...] Moderate episode of recurrent major depressive disorder ([facility]) Generalized anxiety disorder Medication Changes: yes [...] CNP, PMP-. BARAK De Leon 05/02/23 1746 Post-i 02-25-2023 Instructions Tiana Cronin PA-C - 02/25/2023 1:56 PM EST Images from the original note were not included. MRI right hip Home exercises Continue with NSAIDS CSI right hip- may repeat in 3 months if needed documented in this encounter [facility] 02-25-2023 Note HNO ID: [id number] Author: Rosas Mckinney MD Service: ? Author [...] given from [facility] (more content not included)... [facility] 02-25-2023 History of Present illness Narrative Associated [...] trochanteric bursa Informed Consent Consent Obtained: Verbal Champion Protocol A moment to CARE was completed. [...] Time: 10:49 PM documented in this encounter [facility] 02-20-2023 History of Present illness Narrative [...] 2023 8:45 AM documented in this encounter [facility] 02-20-2023 Note HNO ID: [id number] Author: Kathrine Smith RT(R) Service: ? Author [...] RT Francisco(Kena) February 20, 2023 8:45 AM [facility] 02-17-2023 Miscellaneous Notes Jourdan Atkins, My MA Karyna is having quite a bit of pain and dysfunction in the right hip. Most days in the mornings especially, are excruciating for her and she's unable to sleep on her right side. Would you mind to see her again please? I can get additional imaging first, if you'd like. Thanks, Td. documented in this encounter [facility] 08-01-2022 History of Present illness Narrative [...] 2022 9:04 AM documented in this encounter [facility] 07-10-2022 Evaluation note Encounter Date Diagnosis Assessment Notes Jun, Constipation (ICD-10 - K59.00) Jun, Change in bowel habits (ICD-10 - R19.4) Jun, Diarrhea (ICD-10 - R19.7) Patient to start Align probiotic. Jun, Bloating (ICD-10 - R14.0) [employer] Other 02-05-2023 Hospital Discharge instructions Patient Education 05/26/2022 10:06:58 Strep Throat, Adult, Zctx-ze-Ltba Strep Throat, Adult Strep throat is an [...] Follow these instructions at home: Medicines Take cedl-nqs-ghdscvr and prescription medicines only as told by [...] height. This can be done either in Irish ([place] or metric measurements. Note that charts are available to help you find your BMI quickly and easily without having to do these calculations yourself. To calculate your BMI in Irish ([place] measurements, your health care provider will: [...] medical problems. BMI can be measured using Irish measurements or metric measurements. To interpret your [...] 12/17/2004 Document Revised: 03/20/2018 Document Reviewed: 02/18/2018 [employer] Patient Education 2019 [employer]. Follow Up Care 05/26/2022 09:09:50 With:CHELSEA KRAUS DO Address: [employer] [address] [place], [place] [id number]- When: Unknown [facility] 11-08-2022 History of Present [...] she has undergone a workup with her seedling sorter. She states she underwent a CT scan [...] abdominal pain with planned GI followup, as africana studies professor workup so far is unremarkable. Patient does [...] being sent back to Roni Dumas via [employer] Office Electrician or Chart CC for [facility] Providers. Rosas Mckinney MD [employer] Packages Tester, Orthopaedic Surgery Division of Musculoskeletal Oncology [facility] Evaluation + Plan note Extracted from: Title:ED Note Author:Jose BALL, Mohan Diamond te:02/23/22 Sprain of left foot (S93.602 A: Unspecified sprain of left foot, initial encounter) Orders: Crutches Elastic Bandage Application XR Foot 3+ Views Left [facility]11-05-2022 Hospital Discharge instructions Patient Education [...] fully hardened. This may takeseveral hours. Take aqyq-onv-qiopcuc and prescription medicines only as told by [...] 09/27/2002 Document Revised: 04/11/2018 Document Reviewed: 04/11/2018 [employer] Patient Education 2020 [employer]. 02/23/2022 11:07:01 How to Use Cold Therapy, Prxj-ag-Edrm How to Use Cold Therapy Cold therapy, [...] 09/23/2008 Document Revised: 01/04/2019 Document Reviewed: 01/04/2019 [employer] Patient Education 2020 [employer]. 02/23/2022 11:07:01 Elastic Bandage and RICE Therapy [...] limityour activities and whether you should start jqvop-uf-hlxwxh exercises for your injury. Ice Ice your [...] 09/27/2002 Document Revised: 12/26/2017 Document Reviewed: 12/26/2017 [employer] Patient Education 2020 [employer]. Follow Up Care 02/23/2022 09:05:48 With:CHELSEA KRAUS Address: [employer] [address] [place], [place] [id number] Business (1) When:02/26/2022 10:46:43 Comments:Follow-up with your primary care provider in 3 to 5 days. If symptoms worsen, do not improve, or new symptoms arise please report back to emergency department for further evaluation. [facility] History of Present illness Narrative* [...] 18, 2022 3:09 PM [facility] Nurse Note* Lillie Smith - 11/08/2021 11:25 AM EDT UA performed as ordered. Lillie Smith [facility] History of Present illness Narrative* Macy Jones APRN.CNP - 10/04/2021 3:36 PM EDT [facility] History general Narrative - Reported* Type Description Date Medical History Bernardo's thyroiditis Medical History Post- depression 2019 Surgical History D & C d/t miscarriage 08/2015 Surgical History LEEP 2012 Hospitalization History child [employer] Other Evaluation note* Diagnosis Acute bilateral low back pain with bilateral sciatica- [facility] Pel[facility]- [facility] Diagnosis Dysuria- [facility] Diagnosis Dysuria- [facility] Diagnosis Unspecified hypothyroidism- [facility] Diagnosis Lytic bone lesion of femur- Primary [facility] Diagnosis Moderate episode of recurrent major depressive disorder (HCC)- [facility] Diagnosis Unspecified hypothyroidism- Primary Essential hypertension, malignant Lipids blood increased Other and unspecified hyperlipidemia Vegans' anemia Other vitamin B12 deficiency anemia [facility] Diagnosis Lytic bone lesion of femur- Primary [facility] Diagnosis Lytic bone lesion of femur- Primary Greater trochanteric bursitis of right hip Enthesopathy of hip region Chronic pain of right hip Chronic low back pain, unspecified back pain laterality, unspecified whether sciatica present Pain of right hip Bone lesion Disorder of bone and cartilage, unspecified [facility] Diagnosis Attention deficit hyperactivity disorder (ADHD), predominantly 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 ([facility]) Generalized anxiety disorder documented [facility]* Diagnosis Irregular menses- Primary Irregular menstrual cycle documented in this encounter [facility]* Diagnosis Lytic bone lesion of femur [facility]* Diagnosis Lytic bone lesion of femur [facility]* Diagnosis Lytic bone lesion of femur [facility]* Diagnosis 33 weeks gestation of Third trimester state, incidental Low iron Unspecified iron deficiency anemia Nonintractable headache, unspecified chronicity pattern, unspecified headache type Constipation, unspecified constipation type documented in this encounter [facility] HealthcareEvaluation note* Diagnosis 35 weeks gestation of Third trimester state, incidental [facility] Narrative No data available for this section [facility] Attachments The following attachments cannot be sent through Care Everywhere. * Methylphenidate, ADULT (Irish) [facility] No data available for this section [facility] (n[facility]ative)* Diagnostic Procedure Only (Routine) - Pending Review Specialty Diagnoses / Procedures Referred By Bry pittman Referred To Contact XR IMAGING Diagnoses Lytic bone lesion of femur Procedures XR HIP GENERAL 3V PELV/AP/LAT RIGHT RADEX HIP UNILATERAL WITH PELVIS 2-3 VIEWS Rosas Mckinney MD [address] [facility] [address] [place] [address] Xr Imaging Referral ID Status Reason Start Date Expiration Date Visits Requested Visits Authorized [id number] Pending Review Auto-Generat ed Referral 08/26/2022 03/28/2023 1 1 [facility] for referral (narrative)* Diagnostic Procedure Only (Routine) - Pending Review Specialty Diagnoses / Procedures Referred By Contsteffen t Referred To Contact XR IMAGING Diagnoses Lytic bone lesion of femur Procedures XR HIP GENERAL 3V PELV/AP/LAT RIGHT RADEX HIP UNILATERAL WITH PELVIS 2-3 VIEWS Tiana Cronin PA-C [address] [place] [address] [place] [address] Referral ID Status Reason Start Date Expiration Date Visits Requested Visits Authorized [id number] Pending Review Auto-Generat ed Referral 03/18/2024 1 1 [facility] for referral (narrative)* Diagnostic Procedure Only (Routine) - Closed Specialty Diagnoses / Procedures Referred By Contac t Referred To Contact XR IMAGING Diagnoses Lytic bone lesion of femur Procedures XR HIP GENERAL 3V PELV/AP/LAT RIGHT RADEX HIP UNILATERAL WITH PELVIS 2-3 VIEWS Roni Dumas MD [address] [place] [address] [place] [address] [place] [address] Referral ID Status Reason Start Date Expiration Date V isits Requested Visits Authorized [id number] Closed Auto-Generate d Referral 02/17/2023 03/18/2024 1 1 [facility] for referral (narrative)* Diagnostic Procedure Only (Routine) - Closed Specialty Diagnoses / Procedures Referred By Contac t Referred To Contact XR IMAGING Diagnoses Lytic bone lesion of femur Procedures XR HIP GENERAL 3V PELV/AP/LAT RIGHT RADEX HIP UNILATERAL WITH PELVIS 2-3 VIEWS Rosas Mckinney MD [address] [place] [address] [place] [address] Referral ID Status Reason Start Date Expiration Date V isits Requested Visits Authorized [id number] Closed Auto-Generate d Referral 08/26/2022 03/28/2023 1 1 [facility] for referral (narrative)* Diagnostic Procedure Only (Routine) - Closed Specialty Diagnoses / Procedures Referred By Contac t Referred To Contact XR IMAGING Diagnoses Lytic bone lesion of femur Procedures XR HIP GENERAL 3V PELV/AP/LAT RIGHT RADEX HIP UNILATERAL WITH PELVIS 2-3 VIEWS Roni Dumas MD [address] [place] [address] Xr Imaging [facility]95 Referral ID Status Reason Start Date Expiration Date V isits Requested Visits Authorized [id number] Closed Auto-Generate d Referral 02/18/2022 03/20/2023 1 1 [facility] Reason for Referral Specialty Diagnoses / Procedures Referred By Contac t Referred To Contact [facility] Diagnoses Acute bilateral low back pain with bilateral sciatica Procedures CONSULT TO PHYSICAL THERAPY PHYSICAL THERAPY EVALUATION HIGH COMPLEX 45 MINS Macy Joens, LAP WINDER.PHARMACOLOGY TEACHER [address] [place] [address] [facility] [address] [place] [address] Referral ID Status Reason Start Date Expiration Date Visits Requested Visits Authorized [id number] Pending Review Auto-Generat ed Referral 10/04/2021 10/04/2022 1 1 Specialty Diagnoses / Procedures Referred By Bry t Referred To Contact MR IMAGING Diagnoses Greater trochanteric bursitis of right hip Chronic pain of right hip Pain of right hip Bone lesion Procedures MRI HIP WO IVCON RIGHT MRI ANY JT LOWER EXTREM W/O CONTRAST MATRL Tiana Cronin, PA-C [address] [place] [id number] Mr Imaging [facility]95 Referral ID Status Reason Start Date Expiration Date Visits Requested Visits Authorized [id number] Authorized Auto-Generat ed Referral 02/25/2023 03/26/2024 1 [...] or prosecute any alcohol or drug abuse patient.[facility] HospitalIn the event this information is protected by the Federal Confidentiality of Alcohol and Drug Abuse Patient Records regulations: The Federal rules restrict any use of the information to criminally investigate or prosecute any alcohol or drug abuse patient.[facility] HospitalIn the event this information is protected by the Federal Confidentiality of Alcohol and Drug Abuse Patient Records regulations: The Federal rules restrict any use of the information to criminally investigate or prosecute any alcohol or drug abuse patient.[facility] HospitalIn the event this information is protected by the Federal Confidentiality of Alcohol and Drug Abuse Patient Records regulations: The Federal rules restrict any use of the information to criminally investigate or prosecute any alcohol or drug abuse patient.[facility] HospitalIn the event this information is protected by the Federal Confidentiality of Alcohol and Drug Abuse Patient Records regulations: The Federal rules restrict any use of the information to criminally investigate or prosecute any alcohol or drug abuse patient.[facility] HospitalIn the event this information is protected by the Federal Confidentiality of Alcohol and Drug Abuse Patient Records regulations: The Federal rules restrict any use of the information to criminally investigate or prosecute any alcohol or drug abuse patient.[facility] HospitalIn the event this information is protected by the Federal Confidentiality of Alcohol and Drug Abuse Patient Records regulations: The Federal rules restrict any use of the information to criminally investigate or prosecute any alcohol or drug abuse patient.[facility] HospitalIn the event this information is protected by the Federal Confidentiality of Alcohol and Drug Abuse Patient Records regulations: The Federal rules restrict any use of the information to criminally investigate or prosecute any alcohol or drug abuse patient.[facility] HospitalIn the event this information is protected by the Federal Confidentiality of Alcohol and Drug Abuse Patient Records regulations: The Federal rules restrict any use of the information to criminally investigate or prosecute any alcohol or drug abuse patient.[facility] HospitalIn the event this information is protected by the Federal Confidentiality of Alcohol and Drug Abuse Patient Records regulations: The Federal rules restrict any use of the information to criminally investigate or prosecute any alcohol or drug abuse patient.[facility] HospitalIn the event this information is protected by the Federal Confidentiality of Alcohol and Drug Abuse Patient Records regulations: The Federal rules restrict any use of the information to criminally investigate or prosecute any alcohol or drug abuse patient.[facility] HospitalIn the event this information is protected by the Federal Confidentiality of Alcohol and Drug Abuse Patient Records regulations: The Federal rules restrict any use of the information to criminally investigate or prosecute any alcohol or drug abuse patient.[facility] HospitalIn the event this information is protected by the Federal Confidentiality of Alcohol and Drug Abuse Patient Records regulations: The Federal rules restrict any use of the information to criminally investigate or prosecute any alcohol or drug abuse patient.[facility] Patient Care team informatio n (unrecognized section and content) [employer]ining [employer] Sewer Relationship Specialty Start Date End Date Anupama Brown DO [address] [place] [address] PCP - General Family Medicine 07/25/22 Emile Mesa MD [address] [address] Gastroenterology 07/25/22 Guillaume Vasquez, DO [address] [place] [address] DIVIDING MACHINE OPERATOR HELPER 07/25/22 [employer] Sewer Relationship Specialty Start Date End Date Anupama Brown DO [address] [place] [address] PCP - General Family Medicine 07/25/22 Emile Mesa MD [address] [address] Gastroenterology 07/25/22 Guillaume Vasquez, DO [address] [place] [address] DIVIDING MACHINE OPERATOR HELPER 07/25/22 [employer] Sewer Relationship Specialty Start Date End Date Anupama Brown, [address] [place] [address] PCP - General Family Medicine 07/25/22 Emile Mesa MD [address] [address] Gastroenterology 07/25/22 Guillaume Vasquez, [address] [place] [address] DIVIDING MACHINE OPERATOR HELPER 07/25/22 [employer] Sewer Relationship Specialty Start Date End Date Anupama Brown, [address] [place] [address] PCP - General Family Medicine 07/25/22 Emile Mesa MD [address] [place] [address] [place] [address] Gastroenterology 07/25/22 Guillaume Vasquez DO [address] [place] [address] [place] [address] DIVIDING MACHINE OPERATOR HELPER 07/25/22 [employer] Sewer Relationship Specialty Start Date End Date Chelsea Kraus DO [address] [place] [address] PCP - General Family Medicine 07/02/19 [employer] Sewer Relationship Specialty Start Date End Date Anupama Brown MD [address] [place] [phone] PCP - General Family Medicine 03/04/23 [employer] Sewer Relationship Specialty Start Date End Date Anupama Brown MD [address] [place] [address] PCP - General Family Medicine 03/04/23 [employer] Sewer Relationship Specialty Start Date End Date Anupama Brown DO [address] [place] [address] PCP - General Family Medicine 07/25/22 Emile Mesa MD [address] [place] [address] [place] [address] Gastroenterology 07/25/22 Guillaume Vasquez DO [address] [facility] [place] [address] Spa Coordinator 07/25/22 [employer] Sewer Relationship Specialty Start Date End Date Anupama Brown DO [address] [place] [address] PCP - General Family Medicine 07/25/22 Emile Mesa MD [address] [place] [address] [place] [address] Gastroenterology 07/25/22 Guillaume Vasquez DO [address] [facility] [place] [address] Spa Coordinator 07/25/22 [employer] Sewer Relationship Specialty Start Date End Date Anupama Brown MD [address] [place] [phone] PCP - General Family Medicine 03/04/23 [employer] Sewer Relationship Specialty Start Date End Date Anupama Brown MD [address] [place] [phone] PCP - General Family Medicine 03/04/23 [employer] Sewer Relationship Specialty Start Date End Date Anupama Brown MD [address] [place] [phone] PCP - General Family Medicine 03/04/23 Reason for Visit (unrecogniz ed section and content) Reason Comments New Pain Tumor/Mass Specialty Diagnoses / Procedures Referred By Bry t Referred To Contact Orthopedics Diagnoses Lytic bone lesion of femur Procedures CONSULT TO ORTHOPAEDICS OFFICE/OUTPATIENT NEW HIGH MDM 60-74 MINUTES Roni Dumas MD [address] [place] [address] Referral ID Status Reason Start Date Expiration Date V isits Requested Visits Authorized [id number] Closed PCP Requested Referral 02/18/2022 02/18/2023 1 1 Reason Comments New Pain Reason Comments Radio Gen RMP Specialty Diagnoses / Procedures Referred By Contac t Referred To Contact XR IMAGING Diagnoses Lytic bone lesion of femur Procedures XR HIP GENERAL 3V PELV/AP/LAT RIGHT RADEX HIP UNILATERAL WITH PELVIS 2-3 VIEWS Roni Dumas MD [address] [facility] [place] [address] [place] [address] Referral ID Status Reason Start Date Expiration Date V isits Requested Visits Authorized [id number] Closed Auto-Generate d Referral 02/17/2023 03/18/2024 1 1 Specialty Diagnoses / Procedures Referred By Contac t Referred To Contact XR IMAGING Diagnoses Lytic bone lesion of femur Procedures XR HIP GENERAL 3V PELV/AP/LAT RIGHT RADEX HIP UNILATERAL WITH PELVIS 2-3 VIEWS Rosas Mckinney MD [address] [place] [address] [place] [address] Referral ID Status Reason Start Date Expiration Date V isits Requested Visits Authorized [id number] Closed Auto-Generate d Referral 08/26/2022 03/28/2023 1 1 Referral ID Status Reason Start Date Expiration Date V isits Requested Visits Authorized [id number] Closed Auto-Generate d Referral 02/18/2022 03/20/2023 1 1 Reason Comments Routine Visit INFORMATION SOURCE (unrecogn ized section and content) DATE CREATED AUTHOR 05/08/2022 [facility] DATE CREATED AUTHOR AUTHOR'S ORGANIZ ATION 05/26/2022 [facility] DATE CREATED AUTHOR AUTHOR'S ORGANIZ ATION 05/04/2023 [facility] DATE CREATED AUTHOR AUTHOR'S ORGANIZ ATION 06/06/2023 [facility] DATE CREATED AUTHOR AUTHOR'S ORGANIZ ATION 10/17/2023 [facility] DATE CREATED AUTHOR AUTHOR'S ORGANIZ ATION 01/28/2024 [facility] EPIC DATE CREATED AUTHOR AUTHOR'S ORGANIZ ATION 2024 [facility] FOR RECORDS PERTAINING TO PATIENTS WHO ARE [...] BE BASED ON THE PRIMARY CLINICAL RECORDS. [employer] [facility]. provides no warranty or guarantee of the accuracy or completeness of information in this document.
[2024-02-18 09:30] VITALS: BP 127/88; PULSE 101
== END 2024-02-18 10:10 | disposition home or self-care (01) ==
LOC: FBCO 07:16 → FBC 09:27
PROVIDERS: Visit Provider Obstetrics & Gynecology
DX: O99.280 Endocrine, nutritional and metabolic diseases complicating pregnancy, unspecified trimester (principal); E07.9 Disorder of thyroid, unspecified; Z3A.00 Weeks of gestation of pregnancy not specified
CPT/HCPCS: 59025

== ENCOUNTER 2024-02-21 07:45 | Outpatient (OUT) | payer OTHER, SELFPAY ==
--- OUTSIDE RECORDS SUMMARY | 2024-02-21 07:48 | XMS_ITS | CCD ---
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 Name Role Phone Unavailable Primary Care Provider [...] Unavailable PEDRO, DR OLIVEIRA Primary Care Unavailable [place], DR EMELIA Luna Consulting Unavailable PEDRO, DR [...] Unavailable EFRA, CHELSEA A Primary Care Unavailable Kevinricky OVERTON Anupama Santos Primary Care Provider Moshe PALOMINO, Emile Unavailable Pedro DO, Guillaume R Unavailable Unavailable Primary Care Provider Unavailabl e KEVIN, [facility] Primary Care Unavailabl e KEVIN, [facility] Primary Care Unavailabl e ABHYANKAR, RONI Referring Unavailable ROSAS MCKINNEY Attending Unavailable KEVIN, [facility] Care Unavailabl e ABHYANKAR, RONI Referring Unavailable KEVIN, [facility] Care Unavailabl e KEVIN, [facility] Care Unavailabl e KEVIN, [facility] Primary Care Unavailabl e PEDRO, GUILLAUME R Referring Unavailable KEVIN, [facility] Care Unavailabl e FRANNY HAGER Referring Unavailable KEVIN, [facility] Care Unavailabl e PEDRO, GUILLAUME R Referring Unavailable KEVIN, [facility] Primary Care Unavailabl e KEVIN, [facility] Primary Care Unavailabl e PEDRO, GUILLAUME R Referring Unavailable KEVIN, [facility] Care Unavailabl e KEVIN, [facility] Primary Care Unavailabl e ASIF SCHAEFER Referring Unavailable PEDRO, GUILLAUME Attending Unavailable PEDRO, GUILLAUME Attending Unavailable PEDRO, GUILLAUME Attending Unavailable MADAN, FRANNY Attending Unavailable PEDRO, GUILLAUME Attending Unavailable MADAN, FRANNY Attending Unavailable PEDRO, GUILLAUME Attending Unavailable PEDRO, GUILLAUME Attending Unavailable PEDRO, GUILLAUME Attending Unavailable MADAN, FRANNY Attending Unavailable PEDRO, GUILLAUME Attending Unavailable MADAN, FRANNY Attending Unavailable Medications Current Medications Medication Drug Class(es) Dates Sig (Normalized) Sig (Original) amoxicillin 500 mg oral capsule (1 source) Penicillin-class Antibacterial Start: 05-26-2022 End: 02-15-2023 take 1 capsule by mouth every twelve hours amoxicillin 500 mg Cap 500 mg = 1 cap(s), Oral, q12hr, X 10 day(s), # 20 cap(s), Refills(s) 0, Pharmacy: [facility], 172, cm, 05/26/22 9:34:00 EST, Height/Length Dosing, 83.6, kg, 05/26/22 9:34:00 EST, Weight Dosing Start Date: 05/26/22 Stop Date: 06/05/22 Status: Ordered aspirin 81 mg delayed release oral tablet (9 sources) Platelet Aggregation Inhibitor, Nonsteroidal Anti-inflammatory Drug [...] Active docusate sodium 100 mg oral capsule (8 sources) Start: 01-27-20 24 End: 02-26-20 24 take 1 capsule by mouth twice daily as needed for constipation docusate sodium (Colace) 100 MG capsule Indications: Constipation, unspecified constipation type Take 1 capsule (100 mg) by mouth 2 (two) times a day as needed for constipation 30 capsule 5 01/27/2024 02/26/2024 Active labetalol hydrochloride 100 mg oral tablet (9 sources) beta-Adrenergic Anais Start: 07-24-19 24 End: [...] medications magnesium oxide 400 mg oral tablet (8 sources) Start: End: take 1 tablet by [...] Start: 09-11-2021 take 1 capsule by mo [facility] before mealtime omeprazole (PriLOSEC) [address] capsule Take 40 mg by mouth in the morning. Take before meals. 05/26/2022 Active Comment on above: Take 1 capsule by mo [facility] once daily. Wait 20-30 minutes before eating or taking other medications. Take 1 capsule by mo [facility] once daily in the morning, wait 20-30 minutes before eating or taking other medications Take 1 capsule by mo [facility] once daily. 20-30 minutes before eating or [...] polysaccharide iron complex 391 mg oral capsule (8 sources) Start: 4 End: 5 take 1 [...] Status: Ordered MV-Min-Fe Fum-FA-DHA ( 1 PO) (12 sources) MV-Min- Fe Fum-FA-DHA ( 1 PO) [...] capsule (8 sources) Tetracycline-class Drug Start: End: 11-07-2 023 take 1 capsule by mouth twice daily doxycycline hyclate (VIBRAMYCIN) 100 mg capsule Take 1 capsule by mouth twice daily. 28 capsule 12/12/2021 02/25/2023 Discontinued Comment on above: Take 1 capsule by [facility] twice daily. escitalopram 20 mg oral tablet (20 sources) Serotonin Reuptake Inhibitor Start: End: take [...] Comment on above: Take 1 tablet by [facility] once daily. fluconazole 150 mg oral tablet (8 sources) Azole Antifungal Start: 02-07-20 End: 02-26-20 take 1 tablet by mouth once fluconazole (DIFLUCAN) 150 mg tablet 1 (one) tablet by mouth one time dose 1 tablet 1 02/06/2022 02/25/2023 Discontinued Comment on above: 1 (one) tablet by [facility] one time dose hydrOXYzine hydrochloride 50 [...] Comment on above: Take 1 tablet by [facility] three times daily as needed. [...] 02/25/2023 Discontinued Start: 08-23-2020 End: 02-25-2023 medroxyPROGESTERone (DEPO-TX OVERA) 150 mg/mL injection Indications: Excessive or [...] first trimester] Onset: 09-16-2023 Chronic Menstrual disorders (14 sources) Irregular periods; Translations: [Irregular menstruation, unspecified] [...] 05-26-2022 Episodic Other and delivery including normal (6 sources) Third trimester ; Translations: [Encounter for [...] [35 weeks gestation of ] 02-10-2024 Episodic Residual codes; unclassified (2 sources) Gestation period, 37 weeks; Translations: [37 weeks gestation of ] 02-18-2024 Episodic Spondylosis; intervertebral disc disorders; other back [...] Negative Negative - 4(70) +++ mg/dL [facility] Blood, UA Negative Negative - 50 Pepito/mcL [facility] Clarity, UA Clear [facility] Color, UA Yellow [facility] Glucose, UA Negative Negative - 2000(110) ++++ mg/dL [facility] Interpretation and review of laboratory results Normal [facility] Ketones, UA Negative Negative - 160(16) ++++ mg/dL [facility] Leukocytes, UA Negative Negative - 500+++ Ilia/mcL [facility] Nitrite, UA Negative Negative - Positive [facility] pH, UA 6.5 5 - 9 [facility] Protein, UA Negative Negative - 2000(20) ++++ mg/dL [facility] Spec Grav, UA 1.01 1 - 1.03 [facility] Urobilinogen, UA 0.2 0.2 - 12 mg/dL [facility] T4 Free SerPl-mCncon 024 Free T4 [Mass/Vol] 1.1 ng/dL Normal 0.9-1.7 [facility] Comment on above: Order Comment: Speci men Type: BLOOD SPECIMEN Ordering Facility: [facility] [employer]-FINISHED [employer] STOCK CLERK Karina Address: [address] [place] [address] , [place] [address] Performed By: #### 3 016-3, 3024-7 #### [facility] CLIA [id number] [address] [place] [address] [place] TSH SerPl-aCncon 02-05-2024 TSH Qn 1.340 m[IU]/L Normal 0.270-4.200 [facility] Comment on above: Order Comment: Speci men Type: BLOOD SPECIMEN Ordering Facility: [facility] [employer]-FINISHED GOODS STOCK CLERK Karina Address: [address] [place], [place] [address] [place] [address] Result Comment: If t he patient is , TSH reference range varies by gestational period: First Trimester (weeks 9-12): 0.180-2.990 mIU/L Second Trimester: 0.110-3.980 mIU/L Third Trimester: 0.480-4.710 mIU/L Manuel Grayson et al. A Practical Approach for the Verifications and Determination of Site- and Trimester-Specific Reference Intervals for Thyroid Function tests in . Thyroid, 2019:29:3:412-420. Emanuel E, et al. 2017 Guidelines of the [place] Thyroid Association for the Diagnosis and Management of Thyroid Disease during and the . Thyroid, 2017:27:3:315-389. Performed By: #### 3 016-3, 3024-7 #### [facility] CLIA [id number] [address] [place] [address] [place] OF [facility] Urinalysis macro (dipstick) panel (U)on 01-27-2024 Bilirubin, UA Negative Negative - 4(70) +++ mg/dL [facility] Blood, UA Negative Negative - 50 Pepito/mcL [facility] Clarity, UA Clear [facility] Color, UA Yellow [facility] Glucose, UA Negative Negative - 2000(110) ++++ mg/dL [facility] Interpretation and review of laboratory results Normal [facility] Ketones, UA Negative Negative - 160(16) ++++ mg/dL [facility] Leukocytes, UA Negative Negative - 500+++ Ilia/mcL [facility] Nitrite, UA Negative Negative - Positive [facility] pH, UA 5.5 5 - 9 [facility] Protein, UA Negative Negative - 2000(20) ++++ mg/dL [facility] Spec Grav, UA 1.020 1 - 1.03 [facility] Urobilinogen, UA 0.2 0.2 - 12 mg/dL [facility] CBC W Auto Differential pane l (Bld)on 01-19-2024 Basophils (Bld) [#/Vol] 10*3/uL Normal <0.11 [facility] Comment on above: Order Comment: Speci men Type: BLOOD SPECIMEN Ordering Facility: External Submitter Address: , , Performed By: #### 5 7021-8 #### [facility] CLIA [id number] [address] [place] [address] Basophils/100 WBC (Bld) 0.2 % Normal [facility] Comment on above: Order Comment: Speci men Type: BLOOD SPECIMEN Ordering Facility: External Submitter Address: , , Performed By: #### 5 7021-8 #### [facility] CLIA [id number] [address] [place] [address] Differential cell count method Nom (Bld) Auto Normal [facility] Comment on above: Order Comment: Speci men Type: BLOOD SPECIMEN Ordering Facility: External Submitter Address: , , Performed By: #### 5 7021-8 #### [facility] CLIA [id number] [address] [place] [address] Eosinophils (Bld) [#/Vol] 0.06 10*3/uL Normal <0.46 [facility] Comment on above: Order Comment: Speci men Type: BLOOD SPECIMEN Ordering Facility: External Submitter Address: , , Performed By: #### 5 7021-8 #### [facility] CLIA [id number] [address] [place] [address] Eosinophils/100 WBC (Bld) 0.6 % Normal [facility] Comment on above: Order Comment: Speci men Type: BLOOD SPECIMEN Ordering Facility: External Submitter Address: , , Performed By: #### 5 7021-8 #### [facility] CLIA [id number] [address] [place] [address] Erythrocyte distribution width (RBC) [Ratio] 13.3 % Normal 11.5-15.0 [facility] Comment on above: Order Comment: Speci men Type: BLOOD SPECIMEN Ordering Facility: External Submitter Address: , , Performed By: #### 5 7021-8 #### [facility] CLIA [id number] [address] [place] [address] Hematocrit (Bld) [Volume fraction] 32.8 % Low 36.0-46.0 [facility] Comment on above: Order Comment: Speci men Type: BLOOD SPECIMEN Ordering Facility: External Submitter Address: , , Performed By: #### 5 7021-8 #### [facility] CLIA [id number] [address] [place] [address] Hemoglobin (Bld) [Mass/Vol] 10.7 g/dL Low 11.5-15.5 [facility] Comment on above: Order Comment: Speci men Type: BLOOD SPECIMEN Ordering Facility: External Submitter Address: , , Performed By: #### 5 7021-8 #### [facility] IA [id number] [address] [place] [address] Immature granulocytes (Bld) [#/Vol] 0.05 10*3/uL Normal <0.10 [facility] Comment on above: Order Comment: Speci men Type: BLOOD SPECIMEN Ordering Facility: External Submitter Address: , , Performed By: #### 5 7021-8 #### [facility] IA [id number] [address] [place] [address] Immature granulocytes/100 WBC (Bld) 0.5 % Normal [facility] Comment on above: Order Comment: Speci men Type: BLOOD SPECIMEN Ordering Facility: External Submitter Address: , , Performed By: #### 5 7021-8 #### [facility] IA [id number] [address] [place] [address] Lymphocytes (Bld) [#/Vol] 1.55 10*3/uL Normal 1.00-4.00 [facility] Comment on above: Order Comment: Speci men Type: BLOOD SPECIMEN Ordering Facility: External Submitter Address: , , Performed By: #### 5 7021-8 #### [facility] IA [id number] [address] [place] [address] Lymphocytes/100 WBC (Bld) 15.1 % Normal [facility] Comment on above: Order Comment: Speci men Type: BLOOD SPECIMEN Ordering Facility: External Submitter Address: , , Performed By: #### 5 7021-8 #### [facility] CLIA [id number] [address] [place] [address]003 MCH (RBC) [Entitic mass] 27.8 pg Normal 26.0-34.0 [facility] Comment on above: Order Comment: Speci men Type: BLOOD SPECIMEN Ordering Facility: External Submitter Address: , , Performed By: #### 5 7021-8 #### [facility] CLIA [id number] [address] [place] [address] 52682 MCHC (RBC) [Mass/Vol] 32.6 g/dL Normal 30.5-36.0 [facility] Comment on above: Order Comment: Speci men Type: BLOOD SPECIMEN Ordering Facility: External Submitter Address: , , Performed By: #### 5 7021-8 #### [facility] CLIA [id number] [address] [place] [address] 28674 MCV (RBC) [Entitic vol] 85.2 fL Normal 80.0-100.0 [facility] Comment on above: Order Comment: Speci men Type: BLOOD SPECIMEN Ordering Facility: External Submitter Address: , , Performed By: #### 5 7021-8 #### [facility] CLIA [id number] [address] [place] [address]23 Monocytes (Bld) [#/Vol] 0.77 10*3/uL Normal <0.87 [facility] Comment on above: Order Comment: Speci men Type: BLOOD SPECIMEN Ordering Facility: External Submitter Address: , , Performed By: #### 5 7021-8 #### [facility] CLIA [id number] [address] [place] [address] 78663 Monocytes/100 WBC (Bld) 7.5 % Normal [facility] Comment on above: Order Comment: Speci men Type: BLOOD SPECIMEN Ordering Facility: External Submitter Address: , , Performed By: #### 5 7021-8 #### [facility] CLIA [id number] [address] [place] [address] 65117 Neutrophils (Bld) [#/Vol] 7.81 10*3/uL High 1.45-7.50 [facility] Comment on above: Order Comment: Speci men Type: BLOOD SPECIMEN Ordering Facility: External Submitter Address: , , Performed By: #### 5 7021-8 #### [facility] CLIA [id number] [address] [place] [address] 55283 Neutrophils/100 WBC (Bld) 76.1 % Normal [facility] Comment on above: Order Comment: Speci men Type: BLOOD SPECIMEN Ordering Facility: External Submitter Address: , , Performed By: #### 5 7021-8 #### [facility] CLIA [id number] [address] [place] [address]116 Nucleated RBC (Bld) [#/Vol] 10*3/uL Normal <0.01 [facility] Comment on above: Order Comment: Speci men Type: BLOOD SPECIMEN Ordering Facility: External Submitter Address: , , Performed By: #### 5 7021-8 #### [facility] CLIA [id number] [address] [place] [address] 97494 Nucleated RBC/100 WBC (Bld) [Ratio] 0.0 /100 WBC Normal [facility] Comment on above: Order Comment: Speci men Type: BLOOD SPECIMEN Ordering Facility: External Submitter Address: , , Performed By: #### 5 7021-8 #### [facility] CLIA [id number] [address] [place] [address] 15332 Platelet mean volume (Bld) [Entitic vol] 11.3 fL Normal 9.0-12.7 [facility] Comment on above: Order Comment: Speci men Type: BLOOD SPECIMEN Ordering Facility: External Submitter Address: , , Performed By: #### 5 7021-8 #### [facility] CLIA [id number] [address] [place] [address] 74776 Platelets (Bld) [#/Vol] 172 10*3/uL Normal 150-400 [facility] Comment on above: Order Comment: Speci men Type: BLOOD SPECIMEN Ordering Facility: External Submitter Address: , , Performed By: #### 5 7021-8 #### [facility] CLIA [id number] [address] [place] [address] 25215 RBC (Bld) [#/Vol] 3.85 10*6/uL Low 3.90-5.20 [facility] Comment on above: Order Comment: Speci men Type: BLOOD SPECIMEN Ordering Facility: External Submitter Address: , , Performed By: #### 5 7021-8 #### [facility] CLIA [id number] [address] [place] [address] 57525 WBC (Bld) [#/Vol] 10.26 10*3/uL Normal 3.70-11.00 [facility] Comment on above: Order Comment: Speci men Type: BLOOD SPECIMEN Ordering Facility: External Submitter Address: , , Performed By: #### 5 7021-8 #### [facility] IA [id number] [address] [place] [address] 48385 T4 Free SerPl-mCncon 024 Free T4 [Mass/Vol] 0.9 ng/dL Normal 0.9-1.7 [facility] Comment on above: Order Comment: Speci men Type: BLOOD SPECIMEN Ordering Facility: [facility] [employer]ISHED [employer] STOCK CLERK Karina Address: [address] [place], [place] [address] [address] Performed By: #### G LTGST #### [facility] CLIA [id number] [address] [place] [address] [place] TSH SerPl-aCncon 01-05-2024 TSH Qn 1.220 m[IU]/L Normal 0.270-4.200 [facility] Comment on above: Order Comment: Speci [...] Nassar, et al. 2017 Guidelines of the [place] Thyroid Association for the Diagnosis and Management of Thyroid Disease during and the . Thyroid, 2017:27:3:315-389. Performed By: #### 5 7021-8 #### [facility] CLIA [id number] [address] [place], [place] [address] T4 Free SerPl-mCncon 024 Free T4 [Mass/Vol] 1.1 ng/dL Normal 0.9-1.7 [facility] Comment on above: Order Comment: Speci men Type: BLOOD SPECIMEN Ordering Facility: [facility] [employer]-FINISHED [employer] STOCK CLERK [place] Address: [facility] [address] [place] [address] Performed By: #### G LTGST #### [facility] CLIA [id number] [address] [place] [address] [place] TSH SerPl-aCncon 12-08-2023 TSH Qn 0.607 m[IU]/L Normal 0.270-4.200 [facility] Comment on above: Order Comment: Speci vishnu Type: BLOOD SPECIMEN Ordering Facility: [facility] [employer]ISHED [employer] STOCK CLERK [place] Address: [facility] [place] [place] [address] Result Comment: If t he patient is , TSH reference range varies by gestational period: First Trimester (weeks 9-12): 0.180-2.990 mIU/L Second Trimester: 0.110-3.980 mIU/L Third Trimester: 0.480-4.710 mIU/L Manuel Grayson et al. A Practical Approach for the Verifications and Determination of Site- and Trimester-Specific Reference Intervals for Thyroid Function tests in . Thyroid, 2019:29:3:412-420. Emanuel E, et al. 2017 Guidelines of the [place] Thyroid Association for the Diagnosis and Management of Thyroid Disease during and the . Thyroid, 2017:27:3:315-389. Performed By: #### G LTGST #### [facility] CLIA [id number] [facility] [place] [address] [place] CBC W Auto Differential pane l (Bld)on 11-20-2023 Basophils (Bld) [#/Vol] 0.04 10*3/uL Normal <0.11 [facility] Comment on above: Order Comment: Speci men Type: BLOOD SPECIMEN Ordering Facility: [facility] [employer]ISHED [employer] STOCK CLERK [place] Address: [address] [place] [address] Performed By: #### 5 7021-8 #### [facility] CLIA [id number] [address] [place] [address]14 Basophils/100 WBC (Bld) 0.6 % Normal [facility] Comment on above: Order Comment: Speci men Type: BLOOD SPECIMEN Ordering Facility: [facility] Address: [address] [place] [address] Performed By: #### 5 7021-8 #### [facility] CLIA [id number] [address] [place] [address] 43503 Differential cell count method Nom (Bld) Auto Normal [facility] Comment on above: Order Comment: Speci men Type: BLOOD SPECIMEN Ordering Facility: [facility] O[employer]ISHED [employer] STOCK CLERK [place] Address: [address] [place] [address] Performed By: #### 5 7021-8 #### [facility] CLIA [id number] [address] [place] [address] 92337 Eosinophils (Bld) [#/Vol] 0.05 10*3/uL Normal <0.46 [facility] Comment on above: Order Comment: Speci men Type: BLOOD SPECIMEN Ordering Facility: [facility] [employer]ISHED [employer] STOCK CLERK [place] Address: [address] [place] [address] Performed By: #### 5 7021-8 #### [facility] CLIA [id number] [address] [place] [address] 72460 Eosinophils/100 WBC (Bld) 0.7 % Normal [facility] Comment on above: Order Comment: Speci men Type: BLOOD SPECIMEN [facility] Address: [address] [place] [address] Performed By: #### 5 7021-8 #### [facility] CLIA [id number] [address] [place] [address] 31297 Erythrocyte distribution width (RBC) [Ratio] 12.9 % Normal 11.5-15.0 [facility] Comment on above: Order Comment: Speci men Type: BLOOD SPECIMEN Ordering Facility: [facility] Address: [facility] [place] [address] Performed By: #### 5 7021-8 #### [facility] CLIA [id number] [address] [place] [address] 14301 Hematocrit (Bld) [Volume fraction] 35.0 % Low 36.0-46.0 [facility] Comment on above: Order Comment: Speci men Type: BLOOD SPECIMEN Ordering Facility: [facility] Address: [address] [place] [address] Performed By: #### 5 7021-8 #### [facility] CLIA [id number] [address] [place] [address] 66408 Hemoglobin (Bld) [Mass/Vol] 11.4 g/dL Low 11.5-15.5 [facility] Comment on above: Order Comment: Speci men Type: BLOOD SPECIMEN Ordering Facility: [facility] Address: [address] [place] [id number] Performed By: #### 5 7021-8 #### [facility] CLIA [id number] [address] [place] [address] 71022 Immature granulocytes (Bld) [#/Vol] 10*3/uL Normal <0.10 [facility] Comment on above: Order Comment: Speci men Type: BLOOD SPECIMEN Ordering Facility: [facility] [employer]ISHED [employer] STOCK CLERK [place] Address: [address] [place] [address] Performed By: #### 5 7021-8 #### [facility] CLIA [id number] [address] [place] [address] Immature granulocytes/100 WBC (Bld) 0.3 % Normal [facility] Comment on above: Order Comment: Speci men Type: BLOOD SPECIMEN Ordering Facility: [facility] OBF[employer]ISHED GOODS STOCK CLERK [place] Address: [address] [place] [address] Performed By: #### 5 7021-8 #### [facility] CLIA [id number] [address] [place] [address] 55968 Lymphocytes (Bld) [#/Vol] 1.25 10*3/uL Normal 1.00-4.00 [facility] Comment on above: Order Comment: Speci men Type: BLOOD SPECIMEN Ordering Facility: [facility] Address: [address] [place] [address] Performed By: #### 5 7021-8 #### [facility] CLIA [id number] [address] [place] [address] 96986 Lymphocytes/100 WBC (Bld) 18.3 % Normal [facility] Comment on above: Order Comment: Speci men Type: BLOOD SPECIMEN Ordering Facility: [facility] OB-FINISHED GOODS STOCK CLERK [place] Address: [address] [place] [address] Performed By: #### 5 7021-8 #### [facility] CLIA [id number] [address] [place] [address] 04299 MCH (RBC) [Entitic mass] 29.9 pg Normal 26.0-34.0 [facility] Comment on above: Order Comment: Speci men Type: BLOOD SPECIMEN [facility] [place] Address: [address] [place] [address] Performed By: #### 5 7021-8 #### [facility] CLIA [id number] [address] [place] [address] MCHC (RBC) [Mass/Vol] 32.6 g/dL Normal 30.5-36.0 [facility] Comment on above: Order Comment: Speci men Type: BLOOD SPECIMEN Ordering Facility: [facility] [employer]-FINISHED GOODS STOCK CLERK [place] Address: [facility] [address] [place] [id number] Performed By: #### 5 7021-8 #### [facility] CLIA [id number] [address] [place] [address] MCV (RBC) [Entitic vol] 91.9 fL Normal 80.0-100.0 [facility] Comment on above: Order Comment: Speci men Type: BLOOD SPECIMEN Ordering Facility: [facility] OB-FINISHED GOODS STOCK CLERK [place] Address: [facility] [address] [place] [id number] Performed By: #### 5 7021-8 #### [facility] CLIA [id number] [address] [place] [address] 17629 Monocytes (Bld) [#/Vol] 0.52 10*3/uL Normal <0.87 [facility] Comment on above: Order Comment: Speci men Type: BLOOD SPECIMEN Ordering Facility: [facility] Address: [facility] [address] [place] [id number] Performed By: #### 5 7021-8 #### [facility] CLIA [id number] [address] [place] [address] 03675 Monocytes/100 WBC (Bld) 7.6 % Normal [facility] Comment on above: Order Comment: Speci men Type: BLOOD SPECIMEN Ordering Facility: [facility] [employer]-FINISHED GOODS STOCK CLERK [place] Address: [facility] [address] [place] [phone] Performed By: #### 5 7021-8 #### [facility] CLIA [id number] [address] [place] [address] 33190 Neutrophils (Bld) [#/Vol] 4.94 10*3/uL Normal 1.45-7.50 [facility] Comment on above: Order Comment: Speci men Type: BLOOD SPECIMEN Ordering Facility: [facility] OB-FINISHED GOODS STOCK CLERK [place] Address: [address] [place] [address] Performed By: #### 5 7021-8 #### [facility] CLIA [id number] [address] [place] [address] Neutrophils/100 WBC (Bld) 72.5 % Normal [facility] Comment on above: Order Comment: Speci men Type: BLOOD SPECIMEN Ordering Facility: [facility] OB-FINISHED GOODS STOCK CLERK [place] Address: [address] [place] [address] Performed By: #### 5 7021-8 #### [facility] CLIA [id number] [address] [place] [address] 60136 Nucleated RBC (Bld) [#/Vol] 10*3/uL Normal <0.01 [facility] Comment on above: Order Comment: Speci men Type: BLOOD SPECIMEN Ordering Facility: [facility] Address: [address] [place] [address] Performed By: #### 5 7021-8 #### [facility] CLIA [id number] [address] [place] [address] 70373 Nucleated RBC/100 WBC (Bld) [Ratio] 0.0 /100 WBC Normal [facility] Comment on above: Order Comment: Speci men Type: BLOOD SPECIMEN Ordering Facility: [facility] Address: [address] [place] [address] Performed By: #### 5 7021-8 #### [facility] CLIA [id number] [address] [place] [address] Platelet mean volume (Bld) [Entitic vol] 11.4 fL Normal 9.0-12.7 [facility] Comment on above: Order Comment: Speci men Type: BLOOD SPECIMEN Ordering Facility: [facility] Address: [address] [place] [address] Performed By: #### 5 7021-8 #### [facility] CLIA [id number] [address] [place] [address] Platelets (Bld) [#/Vol] 167 10*3/uL Normal 150-400 [facility] Comment on above: Order Comment: Speci men Type: BLOOD SPECIMEN [facility] Address: [facility] [place] [address] Performed By: #### 5 7021-8 #### [facility] CLIA [id number] [address] [place] [address] 11296 RBC (Bld) [#/Vol] 3.81 10*6/uL Low 3.90-5.20 [facility] Comment on above: Order Comment: Speci men Type: BLOOD SPECIMEN Ordering Facility: [facility] Address: [facility] [place] [address] Performed By: #### 5 7021-8 #### [facility] CLIA [id number] [address] [place] [address] 39176 WBC (Bld) [#/Vol] 6.82 10*3/uL Normal 3.70-11.00 [facility] Comment on above: Order Comment: Speci men Type: BLOOD SPECIMEN Ordering Facility: [facility] Address: [facility] [place] [address] Performed By: #### 5 7021-8 #### [facility] CLIA [id number] [address] [place] [address] 99555 GESTATIONAL GLUCOSE SCREEN, 1-HOUR, 50 GRAM, NON-FASTINGon 11-20-2023 Glucose [Mass/Vol] 97 mg/dL Normal 74-134 [facility] Comment on above: Order Comment: Speci men Type: BLOOD SPECIMEN Ordering Facility: [facility] Address: [facility] [place] [place] [address] Result Comment: [facility] Congress of Obstetricians and Gynecologists (Alma/Adrián) guidelines state a gestational diabetes mellitus positive screen is made, in women not previously diagnosed with overt diabetes, when the 1 hr plasma glucose level is equal to or above 140 mg/dL. [facility] [employer] [facility] and [facility] [place] recommends a 135 mg/dL cutoff. Performed By: #### G LTGST #### [facility] CLIA [id number] [facility] [place] [address] [place] T4 Free SerPl-mCncon 024 Free T4 [Mass/Vol] 1.0 ng/dL Normal 0.9-1.7 [facility] Comment on above: Order Comment: Speci men Type: BLOOD SPECIMEN Ordering Facility: [facility] Address: , , Performed By: #### 5 7021-8 #### [facility] CLIA [id number] [address] [place] [address] 66715 TSH SerPl-aCncon 10-22-2023 TSH Qn 4.510 m[IU]/L High 0.270-4.200 [facility] Comment on above: Order Comment: Speci [...] Function tests in . Thyroid, 2019:29:3:412-420. Emanuel Nsasar, et al. 2017 Guidelines of the [place] Thyroid Association for the Diagnosis and Management of Thyroid Disease during and the . Thyroid, 2017:27:3:315-389. Performed By: #### 5 7021-8 #### [facility] CLIA [id number] [address] [place] [address] 82782 CBC W Auto Differential pane l (Bld)on 08-08-2023 Basophils (Bld) [#/Vol] 10*3/uL Normal <0.11 [facility] Comment on above: Order Comment: Speci men Type: BLOOD SPECIMEN Ordering Facility: [facility] Address: , , Performed By: #### 5 7021-8 #### [facility] CLIA [id number] [address] [place] [address] 33689 Basophils/100 WBC (Bld) 0.3 % Normal [facility] Comment on above: Order Comment: Speci men Type: BLOOD SPECIMEN Ordering Facility: [facility] Address: , , Performed By: #### 5 7021-8 #### [facility] CLIA [id number] [address] [place] [address] 60591 Differential cell count method Nom (Bld) Auto Normal [facility] Comment on above: Order Comment: Speci men Type: BLOOD SPECIMEN Ordering Facility: [facility] Address: , , Performed By: #### 5 7021-8 #### [facility] CLIA [id number] [address] [place] [address] 99134 Eosinophils (Bld) [#/Vol] 0.06 10*3/uL Normal <0.46 [facility] Comment on above: Order Comment: Speci men Type: BLOOD SPECIMEN Ordering Facility: [facility] Address: , , Performed By: #### 5 7021-8 #### [facility] CLIA [id number] [address] [place] [address] 27468 Eosinophils/100 WBC (Bld) 0.9 % Normal [facility] Comment on above: Order Comment: Speci men Type: BLOOD SPECIMEN Ordering Facility: External Submitter Address: , , Performed By: #### 5 7021-8 #### [facility] CLIA [id number] [address] [place] [address] 63039 Erythrocyte distribution width (RBC) [Ratio] 13.7 % Normal 11.5-15.0 [facility] Comment on above: Order Comment: Speci men Type: BLOOD SPECIMEN Ordering Facility: External Submitter Address: , , Performed By: #### 5 7021-8 #### [facility] CLIA [id number] [address] [place] [address] 88911 Hematocrit (Bld) [Volume fraction] 40.1 % Normal 36.0-46.0 [facility] Comment on above: Order Comment: Speci men Type: BLOOD SPECIMEN Ordering Facility: External Sub[facility] Address: , , Performed By: #### 5 7021-8 #### [facility] CLIA [id number] [address] [place] [address] Hemoglobin (Bld) [Mass/Vol] 13.4 g/dL Normal 11.5-15.5 [facility] Comment on above: Order Comment: Speci men Type: BLOOD SPECIMEN Ordering Facility: [facility] Address: , , Performed By: #### 5 7021-8 #### [facility] CLIA [id number] [address] [place] [address] 15845 Immature granulocytes (Bld) [#/Vol] 10*3/uL Normal <0.10 [facility] Comment on above: Order Comment: Speci men Type: BLOOD SPECIMEN Ordering Facility: [facility] Address: , , Performed By: #### 5 7021-8 #### [facility] CLIA [id number] [address] [place] [address] 98914 Immature granulocytes/100 WBC (Bld) 0.3 % Normal [facility] Comment on above: Order Comment: Speci men Type: BLOOD SPECIMEN Ordering Facility: [facility] Address: , , Performed By: #### 5 7021-8 #### [facility] CLIA [id number] [address] [place] [address] 57075 Lymphocytes (Bld) [#/Vol] 1.67 10*3/uL Normal 1.00-4.00 [facility] Comment on above: Order Comment: Speci men Type: BLOOD SPECIMEN Ordering Facility: [facility] Address: , , Performed By: #### 5 7021-8 #### [facility] CLIA [id number] [address] [place] [address] 74830 Lymphocytes/100 WBC (Bld) 24.9 % Normal [facility] Comment on above: Order Comment: Speci men Type: BLOOD SPECIMEN Ordering Facility: External [facility]mitter Address: , , Performed By: #### 5 7021-8 #### [facility] CLIA [id number] [address] [place] [address] 47469 MCH (RBC) [Entitic mass] 31.1 pg Normal 26.0-34.0 [facility] Comment on above: Order Comment: Speci men Type: BLOOD SPECIMEN Ordering Facility: External Submitter Address: , , Performed By: #### 5 7021-8 #### [facility] CLIA [id number] [address] [place] [address] 28751 MCHC (RBC) [Mass/Vol] 33.4 g/dL Normal 30.5-36.0 [facility] Comment on above: Order Comment: Speci men Type: BLOOD SPECIMEN Ordering Facility: External Submitter Address: , , Performed By: #### 5 7021-8 #### [facility] CLIA [id number] [address] [place] [address] 96030 MCV (RBC) [Entitic vol] 93.0 fL Normal 80.0-100.0 [facility] Comment on above: Order Comment: Speci men Type: BLOOD SPECIMEN Ordering Facility: External Submitter Address: , , Performed By: #### 5 7021-8 #### [facility] CLIA [id number] [address] [place] [address] 53437 Monocytes (Bld) [#/Vol] 0.50 10*3/uL Normal <0.87 [facility] Comment on above: Order Comment: Speci men Type: BLOOD SPECIMEN Ordering Facility: External Submitter Address: , , Performed By: #### 5 7021-8 #### [facility] CLIA [id number] [address] [place] [address] 94653 Monocytes/100 WBC (Bld) 7.5 % Normal [facility] Comment on above: Order Comment: Speci men Type: BLOOD SPECIMEN Ordering Facility: External Submitter Address: , , Performed By: #### 2 3321-8 #### [facility] CLIA [id number] [address] [place] [address] 24503 Neutrophils (Bld) [#/Vol] 4.44 10*3/uL Normal 1.45-7.50 [facility] Comment on above: Order Comment: Speci men Type: BLOOD SPECIMEN Ordering Facility: External Submitter Address: , , Performed By: #### 5 7021-8 #### [facility] CLIA [id number] [address] [place] [address] 22823 Neutrophils/100 WBC (Bld) 66.1 % Normal [facility] Comment on above: Order Comment: Speci men Type: BLOOD SPECIMEN Ordering Facility: External Submitter Address: , , Performed By: #### 5 7021-8 #### [facility] CLIA [id number] [address] [place] [address] 07226 Nucleated RBC (Bld) [#/Vol] 10*3/uL Normal <0.01 [facility] Comment on above: Order Comment: Speci men Type: BLOOD SPECIMEN Ordering Facility: External Submitter Address: , , Performed By: #### 5 7021-8 #### [facility] CLIA [id number] [address] [place] [address] 31634 Nucleated RBC/100 WBC (Bld) [Ratio] 0.0 /100 WBC Normal [facility] Comment on above: Order Comment: Speci men Type: BLOOD SPECIMEN Ordering Facility: External Submitter Address: , , Performed By: #### 5 7021-8 #### [facility] CLIA [id number] [address] [place] [address] 53101 Platelet mean volume (Bld) [Entitic vol] 12.1 fL Normal 9.0-12.7 [facility] Comment on above: Order Comment: Speci men Type: BLOOD SPECIMEN Ordering Facility: External Submitter Address: , , Performed By: #### 5 7021-8 #### [facility] CLIA [id number] [address] [place] [address] 14077 Platelets (Bld) [#/Vol] 148 10*3/uL Low 150-400 [facility] Comment on above: Order Comment: Speci men Type: BLOOD SPECIMEN Ordering Facility: External Submitter Address: , , Performed By: #### 5 7021-8 #### [facility] CLIA [id number] [address] [place] [address] 62386 RBC (Bld) [#/Vol] 4.31 10*6/uL Normal 3.90-5.20 [facility] Comment on above: Order Comment: Speci men Type: BLOOD SPECIMEN Ordering Facility: External Submitter Address: , , Performed By: #### 5 7021-8 #### [facility] CLIA [id number] [address] [place] [address] 47096 WBC (Bld) [#/Vol] 6.71 10*3/uL Normal 3.70-11.00 [facility] Comment on above: Order Comment: Speci men Type: BLOOD SPECIMEN Ordering Facility: External Submitter Address: , , Performed By: #### 5 7021-8 #### [facility] CLIA [id number] [address] [place] [address] 39454 HBV surface Ag Ser Qlon 07-20 HBV surface Ag Ql (S) Negative Normal Negative [facility] Comment on above: Order Comment: [facility] Type: BLOOD SPECIMEN Ordering Facility: External Submitter Address: , , Performed By: #### 5 7021-8 #### [facility] CLIA [id number] [address] [place] [address] 38463 HCV Ab Ser Qlon 08-08-2023 HCV Ab Ql (S) Negative Normal Negative [facility] Comment on above: Order Comment: [facility] Type: BLOOD SPECIMEN Ordering Facility: External Submitter Address: , , Result Comment: The result suggests no evidence of active infection with Hepatitis C virus. Should recent infection be suspected, repeat testing may be considered 4-6 weeks after this draw. Performed By: #### 1 6128-1 #### [facility] CLIA [id number] [address] [place], [place] [address] [place] HIV 1+2 Ab IA Qlon HIV 1 and 2 Ab IA.rapid Nom (S/P/Bld) Normal [facility] Comment on above: Order Comment: Speci men Type: BLOOD SPECIMEN Ordering Facility: External Submitter Address: , , Result Comment: Test not indicated. Performed By: #### 5 7021-8 #### [facility] CLIA [id number] [address] [place] [address] 17002 HIV 1+2 Ab+HIV1 p24 Ag IA Ql Non-Reactive Normal Nonreactive [facility] Comment on above: Order Comment: Speci vishnu Type: BLOOD SPECIMEN Ordering Facility: External Submitter Address: , , Performed By: #### 5 7021-8 #### [facility] CLIA [id number] [address] [place] [address] 99250 HIV immunoassay testing algorithm interpretation (S/P/Bld) [Interp] Normal [facility] Comment on above: Order Comment: Speci vishnu Type: BLOOD SPECIMEN Ordering Facility: External Submitter Address: , , Result Comment: No e vidence of HIV-1 or HIV-2 infection. Should recent infection be suspected, repeat testing may be considered 2-3 weeks after this draw. [place] Rev. Code 3701.243(E): This information has been [...] diagnoses. Performed By: #### 5 7021-8 #### [facility] CLIA [id number] [address] [place] [address] 46502 HbA1c (Bld)on 08-08-2023 Average glucose Estimated from glycated hemoglobin (Bld) [Mass/Vol] 105 mg/dL Normal [facility] Comment on above: Order Comment: Speci vishnu Type: BLOOD SPECIMEN Ordering Facility: External Submitter Address: , , Result Comment: eAG: (Estimated average glucose) is a calculated value from HgbA1c and is medical sales representative of the average blood glucose level in the last 2-3 month period. Performed By: #### 5 5454-3 #### [facility] CLIA [id number] [address] [place] [address] [place] HbA1c (Bld) [Mass fraction] 5.3 % Normal 4.3-5.6 [facility] Comment on above: Order Comment: Speci [...] By: #### 5 5454-3 #### [facility] CLIA [id number] [address] [place] [address] [place] RPR Ser Qlon 08-08-2023 Reagin Ab RPR Ql (S) Non-Reactive Normal Nonreactive [facility] Comment on above: Order Comment: Tammy [facility] Type: BLOOD SPECIMEN Ordering Facility: [facility] [employer]ISHED [employer] STOCK [employer] [place] Address: [facility] [address] [place] [address] Result Comment: Rapi d plasma reagin (RPR) test detects non-treponemal antibodies. RPR may be reactive in a variety of infectious and non-infectious conditions. Correlation with clinical picture and with treponemal antibody results is required for final interpretation. Performed By: #### G LTGST #### [facility] CLIA [id number] [facility] [place] [address] [place] RUBELLA IGG ANTIBODYon 08-07 RUBELLA IGG AB, QUAL Positive Normal Positive [facility] Comment on above: Order Comment: [facility] Type: BLOOD SPECIMEN Ordering Facility: [facility] [employer]-FINISHED [employer] STOCK CLERK [place] Address: [facility] [address] [place] [address] Result Comment: The result suggests recent or past exposure to Rubella virus or history of Rubella vaccination. Positive result may also be seen due to presence of passively-transferred antibodies. Please correlate with patient's history. Performed By: #### G LTGST #### [facility] CLIA [id number] [address] [place] TYPE + SCREENon 08-08-2023 ABO A Normal [facility] Comment on above: Order Comment: Speci men Type: BLOOD SPECIMEN Ordering Facility: External Submitter Address: , , Performed By: #### T SCR #### [facility] CLIA [id number] [address] [place] [address] [place] HISTORICAL AB SCR STATUS Negative Normal [facility] Comment on above: Order Comment: Speci men Type: BLOOD SPECIMEN Ordering Facility: External Submitter Address: , , Performed By: #### T SCR #### [facility] CLIA [id number] [address] [place] [address] [place] Rh Nom (Bld) Positive Normal [facility] Comment on above: Order Comment: Speci men Type: BLOOD SPECIMEN Ordering Facility: External Submitter Address: , , Performed By: #### T SCR #### [facility] CLIA [id number] [address] [place] [address] [place] TYPE AND SCREEN EXPIRATION 08/11/2023 23:59 Normal [facility] Comment on above: Order Comment: Speci men Type: BLOOD SPECIMEN Ordering Facility: External Submitter Address: , , Performed By: #### T SCR #### [facility] CLIA [id number] [address] [place] [address] [place] B-HCG SerPl-aCncon 4 HCG.beta subunit Qn m[IU]/mL Normal <5.0 [facility] Comment on above: Order Comment: Speci men Type: BLOOD SPECIMEN Ordering Facility: External Submitter Address: , , Result Comment: Negdonita tiolvin Performed By: #### 5 7021-8 #### [facility] CLIA [id number] [address] [place] [address] 43184 Jenni 05-16-2023 SUN Telephone (MAGDYASA) JESSEE ALMODOVAR ([id number]) 1990 [address] [facility] Date Time Provider Department 05/16/23 RONI DUMAS During your visit today, we recorded the following information about you: Allergies As of Date: 05/16/2023 (No Known Allergies) Date Reviewed: 04/11/2023 Reviewed by: Macy Jones APRN.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 Reason for Visit: Lab Orders [1688] Primary Visit Diagnosis:Possible , not confirmed [Z32.00] Order(s):HCG QUANTITATIVE [SQHCGQT] Order #: [id number] FUTURE Prescriptions as of 05/16/2023 - doxycycline [...] Status:Closed by RONI DUMAS on 05/16/23 Normal [facility] TOX SCREEN ROUT URon 024 Amphetamines Confirm (U) [Mass/Vol] Negative Normal Negative [facility] [facility] Comment on above: Order Comment: Speci men Type: BLOOD SPECIMEN Ordering Facility: [facility] OB-FINISHED GOODS STOCK CLERK [place] Address: [address] [place] [address] NILA BOYD, [place] [address] Result Comment: Cuto ff threshold at 1000 ng/mL. Performed By: #### G LTGST #### [facility] CLIA [id number] [address] [place] [address] [place] BARBITURATES, URINE Negative Normal Negative [facility] Comment on above: Order Comment: Speci men Type: BLOOD SPECIMEN Ordering Facility: [facility] OB-FINISHED GOODS STOCK CLERK [place] Address: [facility] [place] [place] [address] Result Comment: Cuto ff threshold at 200 ng/mL. Performed By: #### G LTGST #### [facility] CLIA [id number] [address] [place] [address] [place] BENZODIAZEPINES, UR Negative Normal Negative [facility] Comment on above: Order Comment: Speci men Type: BLOOD SPECIMEN Ordering Facility: [facility] OB-FINISHED GOODS STOCK CLERK [place] Address: [facility] [place] [address] [place] [address] Result Comment: Cuto ff threshold at 200 ng/mL. Performed By: #### G LTGST #### [facility] CLIA [id number] [address] [place] [address] [place] Cannabinoids Screen Ql (U) Negative Normal Negative [facility] Comment on above: Order Comment: Speci men Type: BLOOD SPECIMEN [facility] [place] Address: [facility] [place] [address] [place] [address] Result Comment: Cuto ff threshold at 50 ng/mL. Performed By: #### G LTGST #### [facility] IA [id number] [address] [place] [address] [place] Cocaine Ql (U) Negative Normal Negative [facility] Comment on above: Order Comment: Speci men Type: BLOOD SPECIMEN Ordering Facility: [facility] OB-FINISHED GOODS STOCK CLERK [place] Address: [facility] [place] [address] Result Comment: Cuto ff threshold at 300 ng/mL. Performed By: #### G LTGST #### [facility] CLIA [id number] [address] [place] [address] [place] Ethanol (U) [Mass/Vol] <11 Normal <11 [facility] Comment on above: Order Comment: Speci men Type: BLOOD SPECIMEN Ordering Facility: [facility] OB-FINISHED GOODS STOCK CLERK [place] Address: [facility] [place] [address] Performed By: #### G LTGST #### [facility] CLIA [id number] [address] [place] [address] [place] Opiates Screen Ql (U) Negative Normal Negative [facility] Comment on above: Order Comment: Speci men Type: BLOOD SPECIMEN Ordering Facility: [facility] OB-FINISHED GOODS STOCK CLERK [place] Address: [facility] [place] [address] Result Comment: Cuto ff threshold at 300 ng/mL. Performed By: #### G LTGST #### [facility] CLIA [id number] [address] [place] [address] [place] oxyCODONE cutoff Screen (U) [Mass/Vol] Negative Normal Negative [facility] Comment on above: Order Comment: Speci men Type: BLOOD SPECIMEN Ordering Facility: [facility] OB-FINISHED GOODS STOCK CLERK [place] Address: [address] [place] [address] [place] [address] Result Comment: Cuto ff threshold at 100 ng/mL. Performed By: #### G LTGST #### [facility] CLIA [id number] [address] [place] [address] [place] Phencyclidine Ql (U) Negative Normal Negative [facility] Comment on above: Order Comment: Speci men Type: BLOOD SPECIMEN Ordering Facility: [facility] Address: [address] [place], [place] [address] [place] [address] Result Comment: Cuto ff threshold at 25 ng/mL. Performed By: #### G LTGST #### [facility] CLIA [id number] [address] [place] [address] [place] B-HCG SerPl-aCncon 4 HCG.beta subunit Qn m[IU]/mL Normal <5.0 [facility] Comment on above: Order Comment: Speci men Type: BLOOD SPECIMEN Ordering Facility: External Submitter Address: , , Result Comment: Dianne logan Performed By: #### 5 [id number] #### [facility] CLIA [id number] [address] [place] [address] SAGRARIOOVernie 02-25-2023 CNOV Office Visit (ORTHMN ) JESSEE ALMODOVAR ([id number]) 1990 F [facility] Date Time Provider Department 02/25/23 1:00 [...] with a (more content not included)... Normal [facility] XR HIP 3V PELV+ AP/LAT RTon [...] any questions regarding this interpretation, please call [phone]. If you are unable to reach us at the number above, please feel free to contact [facility] at [phone]. [id number] Normal [facility] XR Pelvis and Hip - right [...] any questions regarding this interpretation, please call [phone]. If you are unable to reach us at the number above, please feel free to contact [facility]Radiology at [phone]. DIVISION OF RADIOLOGY * * *Final Report* [...] unremarkable. DIVISION OF RADIOLOGY Provider, Tom Salinas [facility] - 02/20/2023 * * *Final Report* [...] any questions regarding this interpretation, please call [phone]. If you are unable to reach us at the number above, please feel free to contact [facility] at [phone]. 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] Order(s):XR HIP GENERAL 3V PELV/AP/LAT RIGHT [[id number]] Order #: [id number] FUTURE Prescriptions as of 02/17/2023 - amphetamine-dextroamphe [...] Status:Closed by TIANA CRONIN on 02/17/23 Normal [facility] CBC W Auto Differential pane l (Bld)on 11-15-2022 Basophils (Bld) [#/Vol] 0.04 10*3/uL <0.11 k/uL [facility] Basophils/100 WBC (Bld) 0.8 % [facility] Differential cell count method Nom (Bld) Auto [facility] Eosinophils (Bld) [#/Vol] 0.11 10*3/uL <0.46 k/uL [facility] Eosinophils/100 WBC (Bld) 2.1 % [facility] Erythrocyte distribution width (RBC) [Ratio] 13.7 % 11.5 - 15.0 % [facility] Hematocrit (Bld) [Volume fraction] 46.7 % High 36.0 - 46.0 % [facility] Hemoglobin (Bld) [Mass/Vol] 15.6 g/dL High 11.5 - 15.5 g/dL [facility] Immature granulocytes (Bld) [#/Vol] <0.10 k/uL [facility] Immature granulocytes/100 WBC (Bld) 0.2 % [facility] Lymphocytes (Bld) [#/Vol] 1.77 10*3/uL 1.00 - 4.00 k/uL [facility] Lymphocytes/100 WBC (Bld) 33.7 % [facility] MCH (RBC) [Entitic mass] 31.8 pg 26.0 - 34.0 pg [facility] MCHC (RBC) [Mass/Vol] 33.4 g/dL 30.5 - 36.0 g/dL [facility] MCV (RBC) [Entitic vol] 95.3 fL 80.0 - 100.0 fL [facility] Monocytes (Bld) [#/Vol] 0.64 10*3/uL <0.87 k/uL [facility] Monocytes/100 WBC (Bld) 12.2 % [facility] Neutrophils (Bld) [#/Vol] 2.68 10*3/uL 1.45 - 7.50 k/uL [facility] Neutrophils/100 WBC (Bld) 51.0 % [facility] Nucleated RBC (Bld) [#/Vol] <0.01 k/uL [facility] Nucleated RBC/100 WBC (Bld) [Ratio] 0.0 /100 WBC [facility] Platelet mean volume (Bld) [Entitic vol] 11.3 fL 9.0 - 12.7 fL [facility] Platelets (Bld) [#/Vol] 154 10*3/uL 150 - 400 k/uL [facility] RBC (Bld) [#/Vol] 4.90 10*6/uL 3.90 - 5.2 0 m/uL [facility] WBC (Bld) [#/Vol] 5.25 10*3/uL 3.70 - 11. 00 k/uL [facility] CBC W Auto Differential pane l (Bld)on 08-09-2022 Basophils (Bld) [#/Vol] 0.03 10*3/uL <0.11 k/uL [facility] Basophils/100 WBC (Bld) 0.6 % [facility] Differential cell count method Nom (Bld) Auto [facility] Eosinophils (Bld) [#/Vol] 0.05 10*3/uL <0.46 k/uL [facility] Eosinophils/100 WBC (Bld) 0.9 % [facility] Erythrocyte distribution width (RBC) [Ratio] 13.6 % 11.5 - 15.0 % [facility] Hematocrit (Bld) [Volume fraction] 42.0 % 36.0 - 46.0 % [facility] Hemoglobin (Bld) [Mass/Vol] 13.5 g/dL 11.5 - 15.5 g/dL [facility] Immature granulocytes (Bld) [#/Vol] <0.10 k/uL [facility] Immature granulocytes/100 WBC (Bld) 0.4 % [facility] Lymphocytes (Bld) [#/Vol] 1.57 10*3/uL 1.00 - 4.00 k/uL [facility] Lymphocytes/100 WBC (Bld) 29.0 % [facility] MCH (RBC) [Entitic mass] 30.5 pg 26.0 - 34.0 pg [facility] MCHC (RBC) [Mass/Vol] 32.1 g/dL 30.5 - 36.0 g/dL [facility] MCV (RBC) [Entitic vol] 94.8 fL 80.0 - 100.0 fL [facility] Monocytes (Bld) [#/Vol] 0.47 10*3/uL <0.87 k/uL [facility] Monocytes/100 WBC (Bld) 8.7 % [facility] Neutrophils (Bld) [#/Vol] 3.27 10*3/uL 1.45 - 7.50 k/uL [facility] Neutrophils/100 WBC (Bld) 60.4 % [facility] Nucleated RBC (Bld) [#/Vol] <0.01 k/uL [facility] Nucleated RBC/100 WBC (Bld) [Ratio] 0.0 /100 WBC [facility] Platelet mean volume (Bld) [Entitic vol] 11.1 fL 9.0 - 12.7 fL [facility] Platelets (Bld) [#/Vol] 145 10*3/uL Low 150 - 400 k/uL [facility] RBC (Bld) [#/Vol] 4.43 10*6/uL 3.90 - 5.2 0 m/uL [facility] WBC (Bld) [#/Vol] 5.41 10*3/uL 3.70 - 11. 00 k/uL [facility] XR Pelvis and Hip - right [...] any questions regarding this interpretation, please call [phone]. If you are unable to reach us at the number above, please feel free to contact [facility] at [phone]. DIVISION OF RADIOLOGY * * *Final Report* [...] DIVISION OF RADIOLOGY Provider, [facility] - 08/01/2022 * * *Final Report* * [...] any questions regarding this interpretation, please call [phone]. If you are unable to reach us at the number above, please feel free to contact [facility]iology at [phone]. [facility] Radiology Study observation (narrative) [facility] XR Pelvis and Hip - right AP and Lateral frogOrdered By: Ccf Provider on 08-01-2022 [facility] Ambulatory Visit Summaryon 0 05-26-2022 Ambulatory [...] Up with CHELSEA KRAUS DO When: Where: [facility] [address] [place] [id number]- Medications What How Much When Why Instructions New amoxicillin (amoxicillin 500 mg Cap) 1 Capsules By Mouth Every 12 hours Strep pharyngitis Duration: 10 Days Pickup at [facility] 1985 Unchanged biotin Contact prescribing physician if [...] physician if questions or concerns Pharmacy Information [facility] 1986: [address] [place], [place] [phone] Allergies No Known Allergies Problems Ongoing - [...] these instructions at home: Medicines ? Take wxom-srk-bszpeoj and prescription medicines only as told by [...] drinking cup (more content not included)... 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 No riyd-qyl-vgrqzcq medications today. Review of Systems PHQ Score [...] day(s), # 20 cap(s), Refills(s) 0, Pharmacy: [facility] 1984, 172, cm, 05/26/22 [...] Acute pharyngitis, unspecified) Ordered: Rapid Strep POC 55214 Follow-up With When Contact Information CHELSEA KRAUS DO [facility] [address] [place] [address]- Additional Instructions: Patient Education Strep Throat, Adult, Qlxt-qj-Ufnm BMI for Adults Problem List/Past Medical History [...] Strep POC Result: Positive (05/26/22 09:56:00) Normal [facility] Comment on above: Result Comment: [...] these instructions at home: Medicines ? Take paod-mxr-ivgxurg and prescription medicines only as told by [...] 09/23/2008 Document Revised: 06/25/2019 Document Reviewed: 06/25/2019 [employer] Patient Education ? 2019 [employer]. Nutrition BMI for Adults Body mass index (BMI) is a number that is calculated from a person's weight and height. BMI may help to estimate how much of a person's weight is composed of fat. BMI can help identify those who may be (more content not included)... Normal [facility] Coding Summary.on 02-26-2022 Coding Summary. [id number] Gh0 bWw+PGhlYWQ+NR8FURHgM19 naAEatV9YH9sBLX2LNNBBRA CZQO9CSK5azFI4DEacE2Ofh iAv DboqdDRqFB67IIq6JLW9sSu jHXhdfX5ptYTpX4w8BnEdJT 18cT54IIauPHImMlU7SnXbd jsgbWFy X4xuZaFmuHCkCiq+PHRhYmx lIHdpZHRoPScxMDAlJyBzdH oaKP0iKb5bQITgFIIggGcnf HNlOiBj z4mhQKYaIOlnQS3sfFuaH4W avLX4PAEyj3l9Kg31lPA+PH ReYNN0lKtrVOxid803PrRap 3kuDZN6 bTUoFZxlLXV0F36gs9K4QKL hKTBeXXY7wNV9rF5knOfnwc brB9FvxRYzMuR6XZH7eTUrj Y7ntYln paicdS8cQew+T72JRR7QCXO ZVH3DJtd5H0ExDnkddIH+PC 06YIJgJX72wHLcpAHjd8jef Kw3BiXi TPFiQGR0xRaxKAerq2MgWLQ fA26fpFVzi4W0MYOrsHjrfB CbXnMryJS0zV3yRKgasehuz 2hvdzsn Fpmhg6umqs19cI19V66vHFl lCWHfPYP3CLUaHSVplEnosl 8joR7lHh9+SLewm4ygy9xcn Tz7PkCj ZMOsnoUtqYmzIIS3g2EnMm5 1R9OyePnud3IlRxj2bm54hO Img5P5yTM6YFtaTAFowR4uW WxlZnQ6 FBZwPgNacH69yLMsKTyeSr1 syOtyqTpnXK6iFTDrcsnrXY ZvxU0zKJBhxUXcxSciTC3vC TBpbjtm q634LySlYCA5EEHcmAKaF0X scS0lXgYuTSMmAPRvR2XcsZ SeDBwfV011RMetRxT7UGThz oNaS8Xc QTOdcGafDqC3j7Z7Mp7Eb2L pihmtKSS8KZgbOYCuDdS2Ji OkRrB4P3OfDww6IIRzaByxH E1zE6Hf MQGnmsmpptblaCZ3DGTtPKR exZ59qEIrHAqoEc1fc6L2g1 49RYUaUMXmrW60Vw6sgMxyQ TBwdCBU nG1nnlerd7zsuovgZgCyIWB kWNk2AVy7WOVkiAtqHkNwFX W8FdT6TMB3fIRigS6jyYflq qtvpP5b Oyc+I60uwQ8qIBG8NJF5orn cPRIfhwIrTH45AH54G5WbBv wvdGFibGU+PGRpdiBzdHlsZ G9mFoGd t0plz0BmCUgfR3AsVCUeBXy hKau2NNLpVZY2xQK3lT9xKO DlYGicx7K0yOJ8R1RghwSqo g6yv8tz VSTuGLtuT32xrDUgb2X8MTG uaHS8RKPfoFqzFlWeiF34Bl c+DHQakFfge6WrAchra2xdn 9vpzKs5 NmTsJCBitxLauDvaBNX3i0I zCh83N82iNUboCWToEDZmQW VwESIqsCwjrt3nhC2dVt8+P GNvbCB3 zWQ4dR6mDSStEpT0QVrcN24 4BqSyfROxMkrch4ksg6yyiZ n5JsLpAXIkglYmtQwnMPJ9r 5BbBj07 M80lZIbjEDHuNYXnVQHoSXQ ycLptlt9byZ4yCf5+PC9jb2 kcxp87tQ94wVE+KXBvOCL4s WxlPSdw PBJpdM7iUDgnKnG8ROUePwS qvV84dUMtYRzgQg8ofVacaZ btYJ4sTJGadjglo698WwAzb 2xkIDEw uCDqNGbjDJP0Q33rx3M0SQT sYUAqVPM6fUA6uV4tsIicby ogbGVmdDsgdmVydGljYWwtY FhbZ390 IHRvcDsnPlBhdGllbnQgTmF pNQa1T7OmYdx6QKNnxGjrWR 9zaUDuPVkjNv6nrOcakWerB R8jHZSy qtpia724MgMxs6bhQBEwgJA fUEbpNCP5N23hf8C4NCPrHH UgACG4wYO9hD0iiZxrsmejw GVmdDsg jqOzfHnlJRmcADupG990FDC gyXguLxMijdYeBYYeoFQ2VP 75HJ81hEWkx5E4oUR6D2UqN GRpbmct ztmaeEY0NJLtHQUkhQ13Xu6 zxIeyLk6jVNVeBMP6LANnkY GtH4McvG3fZzAmUDStHPFhX 3RleHQt NMirV573MTgsCrT9HAIfxvM qV7AiEVJsbQpzSyZ1f7Y7Pd 0XY6E2RI29MH02tYCos7Z0p SI1W9Ec PVSzmlsrmegxbJM0FYDaRDX idQ77Qu1ykXplWi0xHTLuGA A5NUMinFOqW1DcgE0vLpZvJ DAwMDAw P0XakAHpQVisV773YDgrVfL 1WTUuahTmZ6WqHHSwvFhcSo U7h5P5Nw1CPSd0KZ98UI77k SFhv3F3 lXH0C0AiWHAoqpwvmebneOS 4QLYiTECrqR15Jj5gyKamZb 6fWSNlRUJ7OXZwcZQuG6Poq J2xUwTe IVSzJOQdT4JqsGAqTXqhY24 0WHgaGsR8RSNcckUcL0AeYK KcpYbbMfR8p8D2Nj8GQHSoA V55OGB0 yNQ1BR55VA79E1ZvUdfszUZ ibGU+PHRhYmxlIHdpZHRoPS pgKSHfPfHhtCinXG6nJm8yF GVyLWNv bKueqUBoIzGos0kbBVGjBAq mIC8poNssN7PetPQ5MLQju0 x8Xt73G58xW7WnbMU+PGNvb UQ0gQD9 aE3rVgEbBaN7DCohZ642JgU plBZjPwrxl1iit2mjjQh0Wn P8BIMvtuBlwEdyFQX5q1WxU a99H70l IHdpZHRoPSIxNSUiIHZhbGl flo9ekQ9oTj7+WITuwOV4uH L7cV0wPsWaTlJ7XPejZ261S nRvcCIv Kgoyj9whk2zvbAl6KhFqAOH vloOppWroELV5q8HyWm95C8 AfuRici5OlYiu0pb34rVUpo 1F8iVJ8 Y6KoFNWchzembWLokKqkUE3 vUCEktoshJJPpeK6vPZOuI6 z9WxXyLxD2BUmqC5WsmpY2B DEwcHQg IJqnGYN6W69ej3P8BQAjFSK eIQE1gNI7tN6dxAkpquchyM VmdDsgdmVydGljYWwtYWxpZ 246IHRv vYseOLEqbC6rGSGkvJHloXn fKL0hYETczkksGnaWCPqEIA zWDvgnJAQLNJ28Z4CoXfz7H CBzdHls WA2xgCThJZvwPu5rhXaxlMb vXS8mMHCbeuoaFQAjkF8mVM IlpIQgcPdqWG0wNVHpkzvak 250OiAx RTY7JLBoeCYmA3RbiQ4pVtR lAYZfONYkL2KraPUcLVhdR7 45ZNekDjK4NVFgxwRaC0KaJ WFsaWdu SiF2m9H7Vk6dMM8vJS1bADt sKT50EL69vKUhw9P4zSI4N2 VsQUIzbhxdyufilBM8NONfV DUwaW47 bOTpIWdsUt3tp5X1n947WGP hXFEfrF01Nw3miXkpWERbmV XZsY4gqteqy3andtjwGlDmJ DAwMDt0 HTm5WNMsqAktIkIpQTA2IyG 7RIX1lRNmoX9cnQyowtpkcP 9wOyc+SdMuSBNnshZ9B2KkN bw6MLQj pKkjQW2gaKGsJCvaBr9lmAa quDbdVL2fQTUzqnfaHGXvlO 3nLWXsgVPimMrpGW3rRRGet lbuj931 QkIkBIM8PAHkeQRaW3QooT5 yCqZvABRaFFAfK2DthLKyJW gbL686QPjxIzO0GDCfsxTvL 2FsLWFs xYvdNeU7g4W0Kr2MEL9ckGI 5A3MyQrl5JDEjnOujKH7lyX DgAHcbZk4xcShlkCinYL4zW TBpbjtw MSLlwJ9xQVAdjYGmbVxjIZ7 gBAEfammlc857BxQkGLD5IQ CrjKKsO8TcsU1cTuCbNTQvT YMwM7Dw sZZxQCqzW107MGscFwV4OOC ijcCkX7HnQCCmgMgoCbE9o7 Z1Cv6ZbEEbV4WbN2h2G5QrK jwvdHI+ PD48NOAyLD09kVOdvYJwy1r spCn3WyJvGORiPYM2yFzsOM ddk4TlNPWmY63hhFWyc1H7Y GNvbGxh iLZjSiUxpLJ8jH3bMXvmlqu tu4zzahgpJjbsd2ynvs90qF 29A16iSQmrMDLlCOEsXWLrM HZhbGln lo9sjY0oRo8+LXMjcRL2iEV 5jX7mYgZcBdZ5ZXgyL082Gz BspNYaMrtyo4ywu4xmoBr1G jIwJSIg ugEiiOpcAZS8n8LdWo65W64 sIHdpZHRoPSIyMCUiIHZhbG ypix8wtL0eSx3+ZT0dc0wui y67xV27 dHI+DFQsYVB5sNliKXeqQFO uwW6gWDkhPdC4OYJcNsDyeE 59gKNwKCrzCm7glMigxHdkG K3iAWZu wbajw343RwJwf9wsEURpkXH lJKzlCSD6K50bb3Y4IMSwXR RoPWV6jDJ9lT3zuGgdiadyc GVmdDsg voXhsPtrZLcoRVctB245RKY emLhlPqBzlCVdN6mnnfKPDM 1lOjwvdGQ+XOTvLEZ1vFkcM SdwYWRk kD9iMHJaC4l4NoWePcO9IZj iW1UjxsN3KTTvaASaVKVzoH CAaY0gjuxil7qkttmaXmAdU DAwMDt0 TGi7NXCknTrzXjAiVHW7TcE 1ZNJ8jCVvtC1nqBursteaxC 9wOyc+RklOOjwvdGQ+PHRkI YS4bMzh INlvIOGffO4xMMHkB6f1NpT wWqY4JJvrH5UvjjU5ZMLycE EtIYHocHWVzN9xiwmpl2sfi jogIzAw KTGzIUb7CTo6GNUxgEwrEgN uAUC5MpU4LGG5vHLeyR3arO jodincwS3kIqi+TVJOOjwvd GQ+PHRk QDA6nNegMUbmHFDefQ1cTIN dI6b9NjTiDqS1BZzvO9Lbcr L2TQByvFYsCCZkxTABsN9fu ifqb1ir dbbnLgMiGUYvVMy3LXs5KYU ztWrhTyWbMXG6NbK7CYK0bR OnmT9wtVljujhrpK3rSra+U YV9VZW5 BK30PT57M5XrKlmlcENsvIT +PHRhYmxlIHdpZHRoPScxMD PaUoEaaGygNV2qIw0mFALmO WNvbGxh cHNl (more content not included)... Normal [facility] Discharge Instructionson Discharge Instructions [id number] CD:127 Normal [facility] ED Clinical Summaryon 2021 ED Clinical Summary [address] [address] ED Clinical Summary Person Information Name: JESSEE ALMODOVAR/[facility] Age: 32 Years : 1990 Sex: Female Language: Eritrean PCP: Marital Status: Phone: [phone] Visit Id: Visit Reason: Foot pain-swelling; HURT [...] 11:07:01 02/23/2022 11:07:01 02/23/2022 11:07:01 ADDRESS: [place] [id number] PHYS DOC NOTES: MEDICAL INFORMATION: Prescriptions Given: PATIENT EDUCATION INFORMATION: Instructions: Foot Sprain; How to Use Cold Therapy, Ynpn-vz-Kheq; Elastic Bandage and RICE Therapy Follow up: With: Address: When: CHELSEA EFRA [facility], [address] [place] [address] [employer] ([employer] In 3 days 02/26/2022 Comments: Follow-up with your primary care provider in 3 to 5 days. If symptoms worsen, do not improve, or new symptoms arise please report back to emergency department for further evaluation. DIAGNOSIS: Sprain of left foot Normal [facility] ED Note-Physicianon 02-24-20 ED Note-Physician [...] CHELSEA KRAUS In 3 days 02/26/2022 [facility] [employer] [address] [place] [id number] Business (1) Additional Instructions: Follow-up with your primary care provider in 3 to 5 days. If symptoms worsen, do not improve, or new symptoms arise please report back to emergency department for further evaluation. Patient Education Foot Sprain How to Use Cold Therapy, Oqko-xi-Jkri Elastic Bandage and RICE Therapy Attestation Patient seen and evaluated by the physician print shop assistant. Attending physician was present in the emergency department and supervised care. This visit was performed by both the physician and an APC. I performed all aspects of the MDM as documented. This report was transcribed using voice recognition software. Every effort was made to ensure accuracy, however, inadvertently computerized billiard table mechanic mistakes may be present. Appropriate healthcare PPE [...] medications Ho (more content not included)... Normal [facility] Comment on above: Result Comment: [...] This may take several hours. ? Take vqxb-btk-qzfondn and prescription medicines only as told by [...] is no (more content not included)... Normal [facility] ED Patient Summaryon 022 ED Patient Summary (Inserted Image. Kelsi ble to display) [address] [id number] Patient Discharge Instructions Person Information Name: JESSEE ALMODOVAR Age: 32 Years Arrival Date: 02/23/2022 09:05:13 Discharge Diagnosis: Sprain of left foot Primary Care Physician: Provider Information Primary Provider: Chayo Anne DO Advanced Rigger Supervisor:None The exam and treatment you received in the Emergency Department were for an urgent problem and are not intended as complete care. It is important that you follow up with a doctor, nurse practitioner, or physician?s print shop assistant for ongoing care. If your symptoms become worse or you do not improve as expected and you are unable to reach your usual health care provider, you should return to the Emergency Department. We are available 24 hours a day. JESSEE ALMODOVAR has been given the following list of patient education materials, prescriptions and follow-up instructions: Follow-up Instructions: With: Address: When: [employer], [address] [place], [place] [id number] Business (1) In 3 days 02/26/2022 Comments: [...] Foot Sprain; How to Use Cold Therapy, Dbwu-ca-Zqtd; Elastic Bandage and RICE Therapy A MESSAGE TO ALL PATIENTS REGARDING OPIOIDS PRESCRIPTION OPIOIDS: WHAT YOU NEED TO KNOW Prescription opioids can be used to help relieve lyyzmrkd-ai-wpvave pain and are often prescribed following a [...] Visit www.cdc.gov/ (more content not included)... Normal [facility] XR Foot 3+ Views Lefton 11-0 XR [...] DO Transcribed by: SUZY Technologist: TIM Normal [facility] XR Pelvis and Hip - [...] any questions regarding this interpretation, please call [phone]. If you are unable to reach us at the number above, please feel free to contact [facility] at [phone]. DIVISION OF RADIOLOGY * * *Final Report* [...] joint appears preserved. DIVISION OF RADIOLOGY [facility] * * *Final Report* [...] any questions regarding this interpretation, please call [phone]. If you are unable to reach us at the number above, please feel free to contact [facility] at [phone]. [facility] XR Pelvis and Hip - right AP and Lateral frogOrdered By: Ccf Provider on 02-19-2022 [facility] XR Pelvis and Hip - right AP and Lateral frogon 02-18-2022 Radiology Study observation (narrative) [facility] CT ABD/PELV W CONon 02-12-20 CT [...] STEWART Date: 2022-02-11 07:23 Normal [facility] US PELVIS AND TRANSVAGon US PELVIS [...] HARTLEY Date: 2022-01-08 14:12 Normal [facility] UA DIP, URINE (POC)on 2021 BILIRUBIN UA (POCT) Negative Negative [facility] CLARITY UA (POCT) Cloudy [facility] COLOR UA (POCT) Yellow [facility] GLUCOSE UA (POCT) Negative Negative mg/dL Mohsen [facility] HEMOGLOBIN/BLOOD UA (POCT) Trace-intact Abnormal Negative [facility] KETONE UA (POCT) Negative Negative mg/dL [facility] LEUKOCYTES UA (POCT) Small Abnormal Negative [facility] NITRITE UA (POCT) Negative Negative [facility] PH UA (POCT) 6.5 4.5 - 8.0 [facility] Protein Ql (U) Negative Negative mg/dL [facility] SPECIFIC GRAVITY UA (POCT) 1.015 1.005 - 1.030 [facility] UROBILINOGEN UA (POCT) 0.2 E.U./dL Normal E.U./dL [facility] Large Joint Arthro/Inj: R gr eater trochanteric bursa [facility] Vital Signs Date Time Vital Sign Value Performing Clinician Facility 02-18-2024 10:23-040 Body mass index (BMI) [Ratio] 30.42 kg/m2 Franny COSTELLO Work Phone: [facility] 02-18-2024 10:23-040 Body weight 103.15 kg Franny COSTELLO Work Phone: [facility] 02-18-2024 10:23-040 Diastolic blood pressure 68 mm[Hg] Franny COSTELLO Work Phone: [facility] 02-18-2024 10:23-0400 Systolic blood pressure 112 mm[Hg] Franny COSTELLO Work Phone: [facility] 02-10-2024 13:39-0400 Body mass index (BMI) [Ratio] 29.83 kg/m2 Guillaume Pedro DO Work Phone: [facility] 02-10-2024 13:39-0400 Body weight 101.15 kg Guillaume Pedro DO Work Phone: [facility] 02-10-2024 13:39-0400 Diastolic blood pressure 70 mm[Hg] Guillaume Pedro DO Work Phone: [facility] 02-10-2024 13:39-0400 Systolic blood pressure 120 mm[Hg] Guillaume Pedro DO Work Phone: [facility] 01-27-2024 10:17-0400 Body mass index (BMI) [Ratio] 29 kg/m2 Franny Madan PA Work Phone: [facility] 01-27-2024 10:17-0400 Body weight 98.34 kg Franny Madan PA Work Phone: [facility] 01-27-2024 10:17-0400 Diastolic blood pressure 60 mm[Hg] Franny Minot PA Work Phone: [facility] 01-27-2024 10:17-0400 Systolic blood pressure 110 mm[Hg] Franny Madan PA Work Phone: [facility] 02-25-2023 13:16-0500 Body height 185.4 cm Rosas Mckinney MD Work Phone: [facility] 02-25-2023 13:16-0500 Body weight 76.67 kg Rosas Mckinney MD Work Phone: [facility] 07-10-2022 15:15-0400 Body height 181.61 cm Imad Asaad Other [facility] Other 07-10-2022 15:15-0400 Body mass index (BMI) [Ratio] 24.48 kg/m2 Imad Asaad Other [facility] Other 07-10-2022 15:15-0400 Body weight 80.74 kg Imad Asaad Other [facility] Other 07-10-2022 15:15-0400 Diastolic blood pressure 78 mm[Hg] Imad Asaad Other [employer] [facility] [employer] Other 07-10-2022 15:15-0400 Systolic blood pressure 130 mm[Hg] Imad Asaad Other [facility] [employer] Other 05-26-2022 09:29-0500 Blood Pressure Location Roxanne MSOLEY [facility] 05-26-2022 09:29-0500 Body temperature 98.42 [degF] Roxanne MOSLEY [facility] 05-26-2022 09:29-0500 Diastolic blood pressure 78 mm[Hg] Roxanne MOSLEY [facility] 05-26-2022 09:29-0500 Heart rate 115 /min Roxanne DIMITRI [facility] 05-26-2022 09:29-0500 SaO2% (BldA) [Mass fraction] 98 % Roxanne MOSLEY [facility] 05-26-2022 09:29-0500 Systolic blood pressure 120 mm[Hg] Roxanne MOSLEY [facility] 02-23-2022 09:10-0400 Body temperature 98.42 [degF] Chayo Anne [facility] 02-23-2022 09:10-0400 Diastolic blood pressure 67 mm[Hg] Chayo Anne [facility] 02-23-2022 09:10-0400 Heart rate 88 /min Chayo Anne [facility] 02-23-2022 09:10-0400 Respiratory rate 18 /min Chayo Anne [facility] 02-23-2022 09:10-0400 SaO2% (BldA) [Mass fraction] 98 % Chayo Anne [facility] 02-23-2022 09:10-0400 Systolic blood pressure 141 mm[Hg] Chayo Anne [facility] Encounters Encounter Date Encounter Type Care Provider Facility Start: 02-18-2024 End: 02-18-2024 Bamboo flowsheet Franny COSTELLO Work Phone: [facility] Start: 02-18-2024 End: 02-18-2024 Bamboo flowsheet Franny COSTELLO Work Phone: [facility] Start: 02-18-2024 End: 02-18-2024 ambulatory FRANNY HAGER Not Available Start: 02-18-2024 End: 02-18-2024 flow sheet Franny COSTELLO Work Phone: [facility] Comment on above: Third trimester preg lencho; 37 weeks gestation of Start: 02-10-2024 End: 02-10-2024 Bamboo flowsheet Guillaume Pedro DO Work Phone: [facility] Start: 02-10-2024 End: 02-10-2024 Bamboo flowsheet Guillaume Pedro DO Work Phone: [facility] Start: 02-10-2024 End: 02-10-2024 ambulatory GUILLAUME PEDRO Not Available Start: 02-10-2024 End: 02-10-2024 flow sheet Guillaume Pedro DO Work Phone: [facility] Comment on above: 35 weeks gestation o f ; Third trimester Start: 02-05-2024 End: 02-05-2024 ambulatory ANUPAMA BROWN Facility:[facility] Start: 01-27-2024 End: 01-27-2024 Bamboo flowsheet Franny [...] type Start: 01-19-2024 End: 01-19-2024 ambulatory ANUPAMA SANTOS KEVIN Facility:[facility] Start: 01-13-2024 End: 01-13-2024 ambulatory GUILLAUME PEDRO Not Available Start: 01-05-2024 End: 01-05-2024 ambulatory ANUPAMA SANTOS KEVIN Facility:[facility] Start: 12-30-2023 End: 12-30-2023 ambulatory GUILLAUME PEDRO Not Available Start: 12-16-2023 End: 12-16-2023 ambulatory GUILLAUME PEDRO Not Available Start: 12-08-2023 End: 12-08-2023 ambulatory GUILLAUME R PEDRO Facility:[facility] Start: 11-20-2023 End: 11-20-2023 ambulatory FRANNY HAGER Facility:[facility] Start: 11-18-2023 End: 11-18-2023 ambulatory FRANNY HAGER Not Available Start: 10-22-2023 End: 10-22-2023 ambulatory GUILLAUME R PEDRO Facility:[facility] Start: 10-21-2023 End: 10-21-2023 ambulatory GUILLAUME PEDRO Not Available Start: 10-16-2023 End: 10-16-2023 ambulatory [facility] Start: 09-24-2023 End: 09-24-2023 ambulatory FRANNY HAGER Not Available Start: 08-26-2023 End: 08-26-2023 ambulatory GUILLAUME VELASQUEZO Not Available Start: 08-08-2023 End: 08-08-2023 ambulatory ANUPAMA BROWN Facility:[facility] Start: 07-24-2023 End: 07-24-2023 ambulatory GUILLAUMECodey VELASQUEZO Not Available Start: 06-04-2023 End: 06-04-2023 ambulatory ASIF SCHAEFER [facility] Start: 06-02-2023 End: 06-02-2023 Phys/qhp telephone evaluation 5-10 min Guillaume Pedro DO Work Phone: [facility] Comment on above: Irregular menses (Pr imary Dx) Start: 06-02-2023 End: 06-02-2023 ambulatory GUILLAUME PEDRO Not Available Start: 05-28-2023 Chart abstracting Guillaumecodey Velasquezo DO Work Phone: [facility] Start: 05-16-2023 End: 05-16-2023 ambulatory ANUPAMA BROWN Facility:[facility] Start: 05-05-2023 End: 05-05-2023 ambulatory ANUPAMA BROWN Facility:[facility] Start: 05-02-2023 End: 05-02-2023 ambulatory [facility] Start: 05-02-2023 End: 05-02-2023 Office outpatient visit 25 minutes Asif Schaefer 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 Work Phone: [facility] Comment on above: Attention deficit hy peractivity disorder (ADHD), predominantly inattentive type (Primary Dx); Moderate episode of recurrent major depressive disorder (CMS-HCC); Generalized anxiety disorder Start: 03-04-2023 End: 03-04-2023 ambulatory GUILLAUME PEDRO Not Available Start: 02-25-2023 End: 02-25-2023 ambulatory ANUPAMA BROWN Facility:[facility] Start: 02-25-2023 End: 02-25-2023 Office outpatient visit 25 minutes Rosas Mckinney MD Work Phone: Orthopaedics Comment on above: Lytic bone lesion of femur (Primary Dx); Greater trochanteric bursitis of right hip; Chronic pain of right hip; Chronic low back pain, unspecified back pain laterality, unspecified whether sciatica present; Pain of right hip; Bone lesion Start: 02-20-2023 End: 02-20-2023 ambulatory ANUPAMA BROWN Facility:[facility] Start: 02-20-2023 End: 02-20-2023 Subsequent hospital visit [...] 07-10-2022 End: 07-10-2022 ambulatory Imad Asaad Other [facility] Other Start: 07-10-2022 Office outpatient ne w 45 minutes Imad Asaad [facility] Start: 05-26-2022 End: 05-27-2022 ambulatory Roxanne MOSLEY Facility:[facility] Start: 05-26-2022 End: 05-26-2022 Patient encounter procedure Roxanne MOSLEY [facility] Start: 05-08-2022 End: 05-08-2022 ambulatory PRAVIN FRANNY HAGER Facility:[facility] Start: 02-26-2022 End: 02-26-2022 Patient encounter procedure Rosas Mckinney MD Work Phone: Orthopaedics Comment on above: Lytic bone lesion of femur (Primary Dx) Start: 02-23-2022 End: 02-23-2022 Emergency department patient visit Chayo Anne Facility:[facility] Start: 02-23-2022 End: 02-23-2022 Emergency department patient visit Chayo Anne [facility] Start: 02-18-2022 End: 02-18-2022 Subsequent hospital [...] Dx) Start: 10-04-2021 Orders Only Macy Jones APRN.SPRAY PAINTING MACHINE OPERATOR Work Phone: Hematology/Oncology Comment on above: Acute bilateral low back pain with bilateral sciatica (Primary Dx) Procedures Date Procedure Procedure Detail Performing Clinician Start: 02-10-2024 Urnls dip stick/tabl et rgnt non-auto w/o micrscp Guillaume Vasquez DO Work Phone: Start: 01-27-2024 Urnls [...] T SCR #### CC MAIN BLOOD BANK CL[facility] [id number] [address] [place] [address] [place] Start: 02-25-2023 Arthrocentesis aspir &/inj major jt/bursa w/o us Tiana Cronin PA-C Work Phone: Start: 02-20-2023 Radex hip unilateral with pelvis 2-3 views Roni Dumas MD Work Phone: Start: 08-08-2022 Adult depression scr eening assessment Asif Schaefer 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 Work Phone: Start: 08-01-2022 Radex hip [...] Td Vaccines (4 - Td or Tdap) [facility] Start: 01-04-2030 Urine microalbumin profile DTa P,Tdap,Td Vaccine (4 - Td or Tdap) [facility] Start: 10-20-2028 Screening for malign ant neoplasm of cervix [facility] Start: 04-06-2024 End: 04-06-2024 ambulatory 04/06/2024 9:30 AM EST [facility] [address] [place] [phone] Franny Hager PA [address] [place], [place] [id number] [facility] Start: 03-10-2024 Tobacco Screening Tobacco Screening [facility] Start: 02-23-2024 Screening for malign ant neoplasm of cervix [facility] Start: 02-18-2024 End: 02-18-2024 Patient encounter procedure 02/18/2024 9:40 AM EDT Routine [facility] [address] [phone] Franny Hager PA [address] [place], [place] [id number] [facility] Start: 02-10-2024 End: 02-09-2025 Strep B DNA probe, amplification Strep B DNA probe, amplification Lab Routine Third trimester Expected: 02/10/2024 (Approximate), Expires: 02/09/2025 [facility] Work Phone: Comment on above: Expected: 02/10/2024 (Approximate), Expires: 02/09/2025 Start: 02-10-2024 End: 02-10-2024 Patient encounter procedure 02/10/2024 1:00 PM EDT Routine [facility] [address] [place] [address] Guillaume Vasquez DO [address] [place], [place] [id number] [facility] Start: 12-21-2023 Covid-19 Vaccine ( season) Covid-19 Vaccine ( season) [facility] Start: 12-21-2023 Covid-19 Vaccine ( season) Covid-19 Vaccine ( season) [facility] Start: 12-21-2023 Influenza vaccination Influenza Vacc ine (#1) [facility] Start: 08-09-2023 Adult BMI Screening Adult BMI Screen ing [facility] Start: 08-09-2023 Depression Screening Depression Scre ening [facility] Start: 05-29-2023 End: 05-29-2023 Patient encounter procedure 05/29/2023 8:10 AM EST Office Visit [facility] [address] [place] [phone] Guillaume Vasquez DO [address] [place] [address] Irregular menses [facility] Comment on above: Irregular menses Start: 12-20-2022 Covid-19 Vaccine ( season) Covid-19 Vaccine () [facility] Start: 12-20-2022 Influenza vaccination INFLUENZA (#1) [facility] Start: 11-15-2022 End: 01-15-2023 Comprehensive metabolic 2000 panel - Serum or Plasma [facility] Work Phone: Comment on above: Expected: 11/15/2022 , Expires: 01/15/2023 Start: 11-15-2022 End: 01-15-2023 Lipid 1996 panel - Serum or Plasma [facility] Work Phone: Comment on above: Expected: 11/15/2022 , Expires: 01/15/2023 Start: 11-15-2022 End: 01-15-2023 T4/FTI/T4U [facility] Work Phone: Comment on above: Expected: 11/15/2022 , Expires: 01/15/2023 Start: 11-15-2022 End: 01-15-2023 Thyrotropin [Units/volume] in Serum or Plasma [facility] Work Phone: Comment on above: Expected: 11/15/2022 , Expires: 01/15/2023 Start: 08-26-2022 End: 03-28-2023 XR HIP GENERAL 3V PELV/AP/LAT RIGHT XR HIP GENERAL 3V PELV/AP/LAT RIGHT Radiology Routine Lytic bone lesion of femur Expected: 08/26/2022, Expires: 03/28/2023 [facility] Work Phone: Comment on above: Expected: 08/26/2022 , Expires: 03/28/2023 Start: 08-09-2022 End: 10-09-2022 25-hydroxyvitamin D3 [Mass/volume] in Serum or Plasma [facility] Work Phone: Comment on above: Expected: 08/09/2022 , Expires: 10/09/2022 Start: 04-21-2022 DEPRESSION ASSESSMENT DEPRESSION ASS ESSMENT [facility] Start: 12-20-2021 Influenza vaccination INFLUENZA (#1) [facility] Start: 12-06-2021 End: 02-05-2022 Thyrotropin [Units/volume] in Serum or Plasma [facility] Work Phone: Comment on above: Expected: 12/06/2021 , Expires: 02/05/2022 Start: 12-06-2021 End: 02-05-2022 Thyroxine (T4) free [Mass/volume] in Serum or Plasma [facility] Work Phone: Comment on above: Expected: 12/06/2021 , Expires: 02/05/2022 Start: 12-06-2021 End: 02-05-2022 Triiodothyronine (T3) [Mass/volume] in Serum or Plasma [facility] Work Phone: Comment on above: Expected: 12/06/2021 , Expires: 02/05/2022 Start: 11-08-2021 End: 01-08-2022 Choriogonadotropin ( test) [Presence] in Urine [facility] Work Phone: Comment on above: Expected: 11/08/2021 , Expires: 01/08/2022 Start: 11-08-2021 End: 01-08-2022 URINALYSIS, REFLEX MICROSCOPIC [facility] Work Phone: Comment on above: Expected: 11/08/2021 , Expires: 01/08/2022 Start: 04-21-2021 DEPRESSION ASSESSMENT DEPRESSION ASS ESSMENT [facility] Start: 2021 HPV TESTING HPV TESTING [facility] Start: 10-13-2020 COVID-19 VACCINE (3 - Booster for Moderna series) COVID-19 VACCINE (3 - Booster for Moderna series) [facility] Start: 07-10-2020 COVID-19 VACCINE (3 - Booster for Moderna series) COVID-19 VACCINE (3 - Booster for Moderna series) [facility] Start: 07-10-2020 COVID-19 VACCINE (3 - Moderna series) COVID-19 VACCINE (3 - Moderna series) [facility] Start: 02-08-2012 PAP TESTING PAP TESTING [facility] Start: 02-08-2012 Screening for malign ant neoplasm of cervix [facility] Start: 2010 Urine microalbumin profile DTA P,TDAP,TD (1 - Tdap) [facility] Start: 2009 Anxiety Screening Anxiety Screening [facility] Start: 2009 Depression Screening Depression Scre ening [facility] Start: 2009 HEPATITIS C SCREENING HEPATITIS C SC REENING [facility] Start: 2009 HIV SCREENING HIV SCREENING [facility] Start: 2003 Adult depression scr eening assessment DEPRESSION SCREENING [facility] Start: 1997 Pneumococcal vaccination [facility] Start: 1991 HEPATITIS B (1 of 3 - 3-dose series) HEPATITIS B (1 of 3 - 3-dose series) [facility] Bacteria identified in Urine by Culture URINE CULTURE Microbiology Routine Pelvic pain 11/08/2021 11:36 AM EDT [facility] Work Phone: End: 06-02-2023 Drug [...] lesion 1 Occurrences starting 02/25/2023 until 03/26/2024 [facility] Work Phone: Comment on above: 1 Occurrences starti ng 02/25/2023 until 03/26/2024 End: 03-18-2024 XR HIP GENERAL 3V PELV/AP/LAT RIGHT XR HIP GENERAL 3V PELV/AP/LAT RIGHT Radiology Routine Lytic bone lesion of femur 1 Occurrences starting 02/17/2023 until 03/18/2024 [facility] Work Phone: Comment on above: 1 Occurrences starti ng 02/17/2023 until 03/18/2024 [facility] Immunizations Immunization Date Immunization Notes Care Provider [facility] 01-28-2023 influenza virus vaccine, unspecified formulation Roni Dumas MD Work Phone: [facility] 02-14-2022 influenza virus vaccine, unspecified formulation Rosas Mckinney MD Work Phone: [facility] 01-18-2021 influenza virus vaccine, unspecified formulation Macy Jones APRN.CNP Work Phone: [facility] 03-01-2020 influenza, seasonal, injectable Imad Asaad Other [facility] Other 02-03-2016 influenza, injectable, quadrivalent, contains preservative Imad Asaad Other [facility] Other NEGATED: Highlighted row has not occurred!03-02-2019 influenza, seasonal, injectable Imad Asaad Other [facility] Other Payers Date Payer Category Payer Private Health Insurance [employer] [id number] 2018 Unknown [id number] 1991 Unknown [id number] 2.16.840.1.441868.3.579.2. 593 1991 Unknown [id number] 2.16.840.1.647004.3.579.2. 593 1991 Unknown [id number] 2.16.840.1.086460.3.579.2. 593 1991 Unknown [id number] 2.16.840.1.325947.3.579.2. 727 1991 Unknown [id number] 2.16.840.1.434633.3.579.2. 727 1991 Unknown [id number] 2.16.840.1.629354.3.579.2. 1286 1991 Unknown [id number] 2.16.840.1.064133.3.579.2. 1286 1991 Unknown [id number] 2.16.840.1.212188.3.579.2. 1286 1991 Unknown [id number] 2.16.840.1.384691.3.579.2. 1286 1991 Unknown [id number] 2.16.840.1.350953.3.579.2. 1259 1991 Unknown [id number] 2.16.840.1.648366.3.579.2. 9 1991 Unknown [id number] 2.16.840.1.307607.3.579.2. 9 1991 Unknown [id number] 2.16.840.1.793248.3.579.2. 9 1991 Unknown [id number] 2.16.840.1.977098.3.579.2. 9 1991 Unknown [id number] 2.16.840.1.897688.3.579.2. 9 1991 Unknown [id number] 2.16.840.1.525494.3.579.2. 9 1991 Unknown [id number] 2.16.840.1.139489.3.579.2. 9 1991 Unknown [id number] 2.16.840.1.826242.3.579.2. 9 1991 Unknown [id number] 2.16.840.1.266225.3.579.2. 9 1991 Unknown [id number] 2.16.840.1.459515.3.579.2. 9 1991 Unknown [id number] 2.16.840.1.937321.3.579.2. 9 1991 Unknown [id number] 2.16.840.1.672909.3.579.2. 1259 1959 Unknown [id number] Social History Date Type Detail Facility Tobacco smoking stat [facility] Tobacco smoking consumption unknown [facility] Work Phone: Start: 1991 Sex Assigned At Not on file C [facility] Start: 10-29-2021 End: 02-26-2022 Exposure to SARS-CoV-2 (event) Not sure [facility] Start: 03-21-2013 End: 10-21-2023 Tobacco smoking status Ex-smoker (finding) [facility] Comment on above: quit 01/2013 Start: 02-26-2022 End: 10-21-2023 Sex Assigned At Female [facility] History of tobacco use Current smoker [facility] History of tobacco use Cigarette Smoker [facility] History of tobacco use Passive smoker [facility] Start: 02-11-2022 End: 10-21-2023 Tobacco use and exposure Smokeless tobacco non-user [facility] Start: 02-11-2022 End: 02-26-2022 Alcohol intake Current drinker of alcohol (finding) [facility] Tobacco smoking status Never [facility] Start: 02-26-2022 End: 10-21-2023 History of Social function [facility] Start: 02-25-2023 End: 05-28-2023 Tobacco smoking status NHIS Occasional tobacco smoker [facility] Start: 08-08-2022 Alcohol Comment on the weekends [facility] Start: 05-28-2023 Alcohol Comment caffeine: 2-3 cups per day coffee; soda [facility] Start: 01-13-2024 End: 02-18-2024 Alcoholic beverage intake Ex-drinker (finding) [facility] Start: 06-19-2023 [facility] Functional Status Date Assessment Result Facility 05-26-2022 Functional Status N/A [facility] 02-23-2022 Functional Status N/A [facility] Clinical Notes 08-20-2015 to 02-18-2024 PRAVIN Dumont - 02/18/2024 9:40 AM Domingo Francis LPN - 02/10/2024 1:00 PM PRAVIN Kemp - 01/27/2024 9:50 AM Billie Vasquez DO - 06/02/2023 4:20 PM ESTPatient Instructions Note Date & Type Note Facility 02-18-2024 History of Present illness Narrative Reason for [...] Exam Constitutional: Appearance: Normal appearance. She is normal weight. HENT: Head: Normocephalic. Cardiovascular: Rate and Rhythm: Normal rate. Pulses: Normal pulses. Pulmonary: Effort: Pulmonary effort is normal. Breath sounds: Normal breath sounds. Abdominal: Palpations: Abdomen is soft. Musculoskeletal: General: Normal range of motion. Neurological: General: No focal deficit present. Mental Status: She is alert and oriented to person, place, and time. Psychiatric: Mood and Affect: Mood normal. Behavior: Behavior normal. Thought Content: Thought content normal. Judgment: Judgment normal. Vitals and nursing note reviewed. Vitals: Estimated body mass index is 30.42 kg/m as calculated from the following: Height as of 05/07/22: 6' 0.5 . Weight as of this encounter: 227 lb 6.4 oz. BP: 112/68 Patient's last menstrual period was 05/25/2023. ASSESSMENT & PLAN ICD-10-CM 1. Third trimester Z34.93 2. 37 weeks gestation of Z3A.37 Return OB: Patient presents today for a routine obstetrics appointment. Patient is currently 36w6d . Patient states she is doing well but has complaints of being tired due to current . Patient has verbalizes frequent movement. labor precautions was discussed/given and patient was instructed to perform kick counts three times a day. No orders of the defined types were placed in this encounter. Follow Up: Patient is to return to office in 1 week for routine OB appointment. Documented by PRAVIN Dumont on behalf of: PRAVIN Dumont documented in this encounter [facility] 02-10-2024 History of Present illness Narrative Reason [...] nursing note reviewed. Exam conducted with a kick plate installer present. Vitals: Estimated body mass index is [...] Vasquez DO documented in this encounter [facility] 01-27-2024 History of Present illness Narrative Reason [...] nursing note reviewed. Exam conducted with a kick plate installer present. Vitals: Estimated body mass index is [...] PRAVIN Dumont documented in this encounter [facility] 06-02-2023 History of Present illness Narrative Reason for Appointment: Patient ID: Jessee Almodovar is a 33 y.o. female who presents for No chief complaint on file. Patient presents today via telephone call for a telehealth appointment. Patients Phone #: [phone] (mobile) Current Medications: has a current medication [...] needed. [facility] Documented by Guillaume Vasquez DO on behalf of: Guillaume Vasquez DO documented in this encounter [facility] 05-02-2023 Miscellaneous Notes [address] [place] [address] [facility] [address] Patient: Jessee Almodovar Date of : 1990 Encounter Date: 05/02/2023 History of Present Illness/Psychiatric Review of Symptoms/Medical Review of Systems: Video Visit via Real-time Synchronous Audiovisual Provider [facility] [address] [place] [address] Patient Location: patient's office in [place], [place] Video Visit Consent Statement: I discussed [...] that there are some limitations compared to dbfl-nh-muwi evaluations. The patient consented to the presence of additional virtual and/or in-person participants. We elected to proceed. Jessee is a 33 y.o. female, established patient, and is logged on via Netcipia for a follow-up video visit. HPI: Jessee reports she is feeling about the same since last visit. She was unable to tell the difference between taking the immediate release Adderall. She expresses frustrations with still feeling easily distractible. She has had a lot going on since the holidays. She enjoyed [place] and new year's with her immediate family. She traveled to [place] to see her parents, which went well. [...] Moderate episode of recurrent major depressive disorder ([facility]-H[facility]) Generalized anxiety disorder Medication Changes: yes [...] Leon 05/02/23 1746 documented in this encounter [facility] 05-02-2023 Progress note Formatting of t his note is different from the original. [address] [place] [facility] [id number] Patient: Jessee Almodovar Date of : 1990 Encounter Date: 05/02/2023 History of Present Illness/Psychiatric Review of Symptoms/Medical Review of Systems: Video Visit via Real-time Synchronous Audiovisual Provider Location: [facility] [address] [place] [address] Patient Location: patient's office in [place], [place] Video Visit Consent Statement: I discussed [...] that there are some limitations compared to kozk-ui-nqpt evaluations. The patient consented to the presence of additional virtual and/or in-person participants. We elected to proceed. Jessee is a 33 y.o. female, established patient, and is logged on via Netcipia for a follow-up video visit. HPI: Jessee reports she is feeling about the same since last visit. She was unable to tell the difference between taking the immediate release Adderall. She expresses frustrations with still feeling easily distractible. She has had a lot going on since the holidays. She enjoyed [place] and new year's with her immediate family. She traveled to [place] to see her parents, which went well. [...] Moderate episode of recurrent major depressive disorder ([facility]) Generalized anxiety disorder Medication Changes: yes [...] CNP, PMHNP-. BARAK De Leon 05/02/23 1746 [facility] 02-25-2023 Instructions Tiana Cronin PA-C - 02/25/2023 1:56 PM EST Images from the original note were not included. MRI right hip Home exercises Continue with NSAIDS CSI right hip- may repeat in 3 months if needed documented in this encounter [facility] 02-25-2023 Note HNO ID: [id number] Author: Rosas Mckinney MD Service: ? Author [...] given from AAOS (more content not included)... [facility] [place] [facility] 02-25-2023 History of Present illness Narrative [...] trochanteric bursa Informed Consent Consent Obtained: Verbal [place] Protocol A moment to CARE was completed. [...] PM documented in this encounter [facility] 02-20-2023 History of Present illness Narrative [...] AM documented in this encounter [facility] 02-20-2023 Note HNO ID: [id number] Author: Kathrine Smith RT(R) Service: ? Author [...] RT Francisco(R) February 20, 2023 8:45 AM [facility] [place] [facility] 02-17-2023 Miscellaneous Notes Jourdan Dennise, My [...] Td. documented in this encounter [facility] 08-01-2022 History of Present illness Narrative [...] AM documented in this encounter [facility] 07-10-2022 Evaluation note Encounter Date Diagnosis Assessment Notes Jun, Constipation (ICD-10 - K59.00) Jun, Change in bowel habits (ICD-10 - R19.4) Jun, Diarrhea (ICD-10 - R19.7) Patient to start Align probiotic. Jun, Bloating (ICD-10 - R14.0) [facility] Other 02-05-2023 Hospital Discharge instructions Patient Education 05/26/2022 10:06:58 Strep Throat, Adult, Ucyo-de-Rdvv Strep Throat, Adult Strep throat is an [...] Follow these instructions at home: Medicines Take wslf-vqk-snjzxmf and prescription medicines only as told by [...] 09/23/2008 Document Revised: 06/25/2019 Document Reviewed: 06/25/2019 [employer] Patient Education 2020 [employer]. 05/26/2022 10:06:56 BMI for Adults BMI for [...] height. This can be done either in [place] or metric measurements. Note that charts are available to help you find your BMI quickly and easily without having to do these calculations yourself. To calculate your BMI in [place] measurements, your health care provider will: [...] medical problems. BMI can be measured using [place] measurements or metric measurements. 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 Patient does [...] being sent back to Roni Dumas via facsDelectablee/MarkMonitor Boat Builder or Chart CC for [facility] Providers. Rosas Mckinney MD Manager Relocation, Orthopaedic Surgery Division of Musculoskeletal Oncology [facility] Evaluation + Plan note Extracted from: Title:ED Note Author:Jose BALL, Mohan Diamond te:02/23/22 Sprain of left foot (S93.602 A: Unspecified sprain of left foot, initial encounter) Orders: Crutches Elastic Bandage Application XR Foot 3+ Views Left [facility]11-05-2022 Hospital Discharge instructions Patient Education 02/23/2022 [...] fully hardened. This may takeseveral hours. Take yvsh-hoq-ofyifrt and prescription medicines only as told by [...] 09/27/2002 Document Revised: 04/11/2018 Document Reviewed: 04/11/2018 [employer]Cap Patient Education 2020 [employer]. 02/23/2022 11:07:01 How to Use Cold Therapy, Vbti-gj-Hery How to Use Cold Therapy Cold therapy, [...] 09/23/2008 Document Revised: 01/04/2019 Document Reviewed: 01/04/2019 [employer] Patient Education 2020 [employer]. 02/23/2022 11:07:01 Elastic Bandage and RICE Therapy [...] limityour activities and whether you should start yocat-fc-wmmylp exercises for your injury. Ice Ice your [...] 09/27/2002 Document Revised: 12/26/2017 Document Reviewed: 12/26/2017 [employer]Cap Patient Education 2020 [employer]. Follow Up Care 02/23/2022 09:05:48 With:CHELSEA KRAUS Address: [facility] [employer] [address] [place], [place] [id number] Business (1) When:02/26/2022 10:46:43 Comments:Follow-up with your primary care provider in 3 to 5 days. If symptoms worsen, do not improve, or new symptoms arise please report back to emergency department for further evaluation. [facility]10-31-2022 History of Present illness Narrative* Kathrine [...] 3:09 PM [facility] Nurse Note* Lillie Smith - 11/08/2021 11:25 AM EDT UA performed as ordered. Lillie Smith [facility] History of Present illness Narrative* Macy Jones APRN.CNP - 10/04/2021 3:36 PM EDT Physical [facility] History general Narrative - Reported* Type Description Date Medical History Bernardo's thyroiditis Medical History Post- depression 2019 Surgical History D & C d/t miscarriage 08/2015 Surgical History LEEP 2012 Hospitalization History child [facility] Other Evaluation note* Diagnosis Acute bilateral low back pain with bilateral sciatica- Primary [facility]* Diagnosis Pelvic pain- Primary [facility]* Diagnosis Dysuria- Primary [facility]* Diagnosis Dysuria- Primary [facility]* Diagnosis Unspecified hypothyroidism- Primary [facility]* Diagnosis Lytic bone lesion of femur- Primary [facility]* Diagnosis Moderate episode of recurrent major depressive disorder (HCC)- Primary [facility]* Diagnosis Unspecified hypothyroidism- Primary Essential hypertension, malignant Lipids blood increased Other and unspecified hyperlipidemia Vegans' anemia Other vitamin B12 deficiency anemia [facility]* Diagnosis Lytic bone lesion of femur- Primary [facility]* Diagnosis Lytic bone lesion of femur- Primary Greater trochanteric bursitis of right hip Enthesopathy of hip region Chronic pain of right hip Chronic low back pain, unspecified back pain laterality, unspecified whether sciatica present Pain of right hip Bone lesion Disorder of bone and cartilage, unspecified [facility]* Diagnosis Attention deficit hyperactivity disorder (ADHD), predominantly 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 (CMS-HCC) Generalized anxiety disorder [facility]* Diagnosis Irregular menses- Primary Irregular menstrual cycle [facility] Diagnosis Lytic bone lesion of femur [facility]* Diagnosis Lytic bone lesion of femur [facility] Diagnosis Lytic bone lesion of femur [facility]* Diagnosis 33 weeks gestation of Third trimester state, incidental Low iron Unspecified iron deficiency anemia Nonintractable headache, unspecified chronicity pattern, unspecified headache type Constipation, unspecified constipation type documented in this encounter [facility]* Diagnosis 35 weeks gestation of Third trimester state, incidental documented in this encounter [facility]* Diagnosis Third trimester state, incidental 37 weeks gestation of documented in this encounter [facility] HealthcareH[facility] Narrative No data available for this section [facility]* Attachments The following attachments cannot be sent through Care Everywhere. * Methylphenidate, ADULT (Eritrean) [facility] No data available for this section [facility])* Diagnostic Procedure Only (Routine) - Pending Review Specialty Diagnoses / Procedures Referred By Bry pittman Referred To Contact XR IMAGING Diagnoses Lytic bone lesion of femur Procedures XR HIP GENERAL 3V PELV/AP/LAT RIGHT RADEX HIP UNILATERAL WITH PELVIS 2-3 VIEWS Rosas Mckinney MD [address] [place] [address] Xr Imaging Referral ID Status Reason Start Date Expiration Date Visits Requested Visits Authorized [id number] Pending Review Auto-Generat ed Referral 08/26/2022 03/28/2023 1 1 [facility] for referral (narrative)* Diagnostic Procedure Only (Routine) - Pending Review Specialty Diagnoses / Procedures Referred By Bry t Referred To Contact XR IMAGING Diagnoses Lytic bone lesion of femur Procedures XR HIP GENERAL 3V PELV/AP/LAT RIGHT RADEX HIP UNILATERAL WITH PELVIS 2-3 VIEWS Tiana Cronin PA-C [address] [place] [id number] Xr Imaging [place] [address] Referral ID Status Reason Start Date Expiration Date Visits Requested Visits Authorized [id number] Pending Review Auto-Generat ed Referral 03/18/2024 1 1 [facility] for referral (narrative)* Diagnostic Procedure Only (Routine) - Closed Specialty Diagnoses / Procedures Referred By Contac t Referred To Contact XR IMAGING Diagnoses Lytic bone lesion of femur Procedures XR HIP GENERAL 3V PELV/AP/LAT RIGHT RADEX HIP UNILATERAL WITH PELVIS 2-3 VIEWS Roni Dumas MD [address] [place] [address] [place] [address] Referral ID Status Reason Start Date Expiration Date V isits Requested Visits Authorized [id number] Closed Auto-Generate d Referral 02/17/2023 03/18/2024 1 1 [facility] for referral (narrative)* Diagnostic Procedure Only (Routine) - Closed Specialty Diagnoses / Procedures Referred By Contac t Referred To Contact XR IMAGING Diagnoses Lytic bone lesion of femur Procedures XR HIP GENERAL 3V PELV/AP/LAT RIGHT RADEX HIP UNILATERAL WITH PELVIS 2-3 VIEWS Rosas Mckinney MD [address] [facility] [address] [place] [address] [place] [address] Referral ID Status Reason Start Date Expiration Date V isits Requested Visits Authorized [id number] Closed Auto-Generate d Referral 08/26/2022 03/28/2023 1 1 [facility] for referral (narrative)* Diagnostic Procedure Only (Routine) - Closed Specialty Diagnoses / Procedures Referred By Contac t Referred To Contact XR IMAGING Diagnoses Lytic bone lesion of femur Procedures XR HIP GENERAL 3V PELV/AP/LAT RIGHT RADEX HIP UNILATERAL WITH PELVIS 2-3 VIEWS Roni Dumas MD [address] [place] [address] [place] [address] Referral ID Status Reason Start Date Expiration Date V isits Requested Visits Authorized [id number] Closed Auto-Generate d Referral 02/18/2022 03/20/2023 1 1 [facility] Reason for Referral Specialty Diagnoses / Procedures Referred By Contac t Referred To Contact [facility] Diagnoses Acute bilateral low back pain with bilateral sciatica Procedures CONSULT TO PHYSICAL THERAPY PHYSICAL THERAPY EVALUATION HIGH COMPLEX 45 MINS Macy Jones, HOSIERY OPERATOR.SPRAY PAINTING MACHINE OPERATOR [address] [place] [address] [facility] [place] [address] [place] [address] Referral ID Status Reason Start Date Expiration Date Visits Requested Visits Authorized [id number] Pending Review Auto-Generat ed Referral 10/04/2021 10/04/2022 1 1 Specialty Diagnoses / Procedures Referred By Contac t Referred To Contact MR IMAGING Diagnoses Greater trochanteric bursitis of right hip Chronic pain of right hip Pain of right hip Bone lesion Procedures MRI HIP WO IVCON RIGHT MRI ANY JT LOWER EXTREM W/O CONTRAST MATRL Tiana Cronin, PAYamel [address] [place] [address] [place] [address] Referral ID Status Reason Start Date Expiration Date Visits Requested Visits Authorized [id number] Authorized Auto-Generat ed Referral 02/25/2023 03/26/2024 1 [...] any alcohol or drug abuse patient.[facility] the event this information is protected by the Federal Confidentiality of Alcohol and Drug Abuse Patient Records regulations: The Federal rules restrict any use of the information to criminally investigate or prosecute any alcohol or drug abuse patient.[facility] Hospital[facility] the event this information is protected by the Federal Confidentiality of Alcohol and Drug Abuse Patient Records regulations: The Federal rules restrict any use of the information to criminally investigate or prosecute any alcohol or drug abuse patient.[facility] Hospital[facility] the event this information is protected by the Federal Confidentiality of Alcohol and Drug Abuse Patient Records regulations: The Federal rules restrict any use of the information to criminally investigate or prosecute any alcohol or drug abuse patient.[facility] Hospital[facility] the event this information is protected by the Federal Confidentiality of Alcohol and Drug Abuse Patient Records regulations: The Federal rules restrict any use of the information to criminally investigate or prosecute any alcohol or drug abuse patient.[facility] Hospital[facility] the event this information is protected by the Federal Confidentiality of Alcohol and Drug Abuse Patient Records regulations: The Federal rules restrict any use of the information to criminally investigate or prosecute any alcohol or drug abuse patient.[facility] Hospital[facility] the event this information is protected by the Federal Confidentiality of Alcohol and Drug Abuse Patient Records regulations: The Federal rules restrict any use of the information to criminally investigate or prosecute any alcohol or drug abuse patient.[facility] Hospital[facility] the event this information is protected by the Federal Confidentiality of Alcohol and Drug Abuse Patient Records regulations: The Federal rules restrict any use of the information to criminally investigate or prosecute any alcohol or drug abuse patient.[facility] Hospital[facility] the event this information is protected by the Federal Confidentiality of Alcohol and Drug Abuse Patient Records regulations: The Federal rules restrict any use of the information to criminally investigate or prosecute any alcohol or drug abuse patient.[facility] Hospital[facility] the event this information is protected by the Federal Confidentiality of Alcohol and Drug Abuse Patient Records regulations: The Federal rules restrict any use of the information to criminally investigate or prosecute any alcohol or drug abuse patient.[facility] HospitalIn the event this information is protected by the Federal Confidentiality of Alcohol and Drug Abuse Patient Records regulations: The Federal rules restrict any use of the information to criminally investigate or prosecute any alcohol or drug abuse patient.[facility] Hospital[facility] the event this information is protected by the Federal Confidentiality of Alcohol and Drug Abuse Patient Records regulations: The Federal rules restrict any use of the information to criminally investigate or prosecute any alcohol or drug abuse patient.[facility] Hospital[facility] the event this information is protected by the Federal Confidentiality of Alcohol and Drug Abuse Patient Records regulations: The Federal rules restrict any use of the information to criminally investigate or prosecute any alcohol or drug abuse patient.[facility] Patient Care team informatio n (unrecognized section and content) Bunk House Worker Relationship Specialty Start Date End Date Anupama Brown DO [address] [place] [address] PCP - General Family Medicine 07/25/22 Emile Mesa MD [address] [address] Gastroenterology 07/25/22 Guillaume Vasquez, DO [address] [place] [address] OUTREACH CLINICIAN 07/25/22 Bunk House Worker Relationship Specialty Start Date End Date Anupama Brown DO [address] [place] [address] PCP - General Family Medicine 07/25/22 Emile Mesa MD [address] [place] [address] Gastroenterology 07/25/22 Guillaume Vasquez DO [address] [place] [address] OUTREACH CLINICIAN 07/25/22 Bunk House Worker Relationship Specialty Start Date End Date Anupama Brown, [address] [place] [address] PCP - General Family Medicine 07/25/22 Emile Mesa MD [address] [address] Gastroenterology 07/25/22 Guillaume Vasquez DO [address] [place] [address] [place] [address] OUTREACH CLINICIAN 07/25/22 Bunk House Worker Relationship Specialty Start Date End Date Anupama Brown DO [address] [place] [address] PCP - General Family Medicine 07/25/22 Emile Mesa MD [address] [place] [address] Gastroenterology 07/25/22 Guillaume Vasquez DO [address] [place] [address] [place] [address] OUTREACH CLINICIAN 07/25/22 Bunk House Worker Relationship Specialty Start Date End Date Chelsea Kraus DO [address] [facility] [address] [address] [place] [address] PCP - General Family Medicine 07/02/19 Bunk House Worker Relationship Specialty Start Date End Date Anupama Brown MD [address] [place] [phone] PCP - General Family Medicine 03/04/23 Bunk House Worker Relationship Specialty Start Date End Date Anupama Brown MD [address] [place] [phone] PCP - General Family Medicine 03/04/23 Bunk House Worker Relationship Specialty Start Date End Date Anupama Brown DO [address] [place], [place] [phone] PCP - General Family Medicine 07/25/22 Emile Mesa MD [address] [place] [address] [place] [address] Gastroenterology 07/25/22 Guillaume Vasquez DO [address] [place] [address] [place] [address] Ecommerce Manager 07/25/22 Bunk House Worker Relationship Specialty Start Date End Date Anupama Brown DO [address] [place] [address] PCP - General Family Medicine 07/25/22 Emile Mesa MD [address] [place] [address] [address] [place] [address] Gastroenterology 07/25/22 Guillaume Vasquez DO [address] [place] [address] [place] [address] Ecommerce Manager 07/25/22 Bunk House Worker Relationship Specialty Start Date End Date Anupama Brown MD [address] [place] [phone] PCP - General Family Medicine 03/04/23 Bunk House Worker Relationship Specialty Start Date End Date Anupama Brown MD [address] [place] [phone] PCP - General Family Medicine 03/04/23 Bunk House Worker Relationship Specialty Start Date End Date Anupama Brown MD [address] [place] [phone] PCP - General Family Medicine 03/04/23 Bunk House Worker Relationship Specialty Start Date End Date Anupama Brown MD [address] [place] [phone] PCP - General Family Medicine 03/04/23 Reason for Visit (unrecogniz ed section and content) Reason Comments New Pain Tumor/Mass Specialty Diagnoses / Procedures Referred By Contsteffen t Referred To Contact Orthopedics Diagnoses Lytic bone lesion of femur Procedures CONSULT TO ORTHOPAEDICS OFFICE/OUTPATIENT NEW HIGH MDM 60-74 MINUTES Roni Dumas MD [address] [place] [address] [place] [address] Referral ID Status Reason Start Date Expiration Date V isits Requested Visits Authorized [id number] Closed PCP Requested Referral 02/18/2022 02/18/2023 1 1 Reason Comments New Pain Reason Comments Radio Gen RMP Specialty Diagnoses / Procedures Referred By Contac t Referred To Contact XR IMAGING Diagnoses Lytic bone lesion of femur Procedures XR HIP GENERAL 3V PELV/AP/LAT RIGHT RADEX HIP UNILATERAL WITH PELVIS 2-3 VIEWS Roni Dumas MD [address] [place] [address] [place] [address] Referral ID Status Reason Start Date Expiration Date V isits Requested Visits Authorized [id number] Closed Auto-Generate d Referral 02/17/2023 03/18/2024 1 1 Specialty Diagnoses / Procedures Referred By Contac t Referred To Contact XR IMAGING Diagnoses Lytic bone lesion of femur Procedures XR HIP GENERAL 3V PELV/AP/LAT RIGHT RADEX HIP UNILATERAL WITH PELVIS 2-3 VIEWS Rosas Mckinney MD [address] [place] [address] [place] [address] Referral ID Status Reason Start Date Expiration Date V isits Requested Visits Authorized [id number] Closed Auto-Generate d Referral 08/26/2022 03/28/2023 1 1 Referral ID Status Reason Start Date Expiration Date V isits Requested Visits Authorized [id number] Closed Auto-Generate d Referral 02/18/2022 03/20/2023 1 1 Reason Comments Routine Visit INFORMATION SOURCE (unrecogn ized section and content) DATE CREATED AUTHOR 05/08/2022 [facility] DATE CREATED AUTHOR AUTHOR'S ORGANIZ ATION 05/26/2022 [facility] DATE CREATED AUTHOR AUTHOR'S ORGANIZ ATION 05/04/2023 [facility] DATE CREATED AUTHOR AUTHOR'S ORGANIZ ATION 06/06/2023 [facility] DATE CREATED AUTHOR AUTHOR'S ORGANIZ ATION 10/17/2023 [facility] DATE CREATED AUTHOR AUTHOR'S ORGANIZ ATION 2024 [facility] DATE CREATED AUTHOR AUTHOR'S ORGANIZ ATION 02/20/2024 [facility] FOR RECORDS PERTAINING TO PATIENTS WHO ARE [...] BE BASED ON THE PRIMARY CLINICAL RECORDS. [employer] provides no warranty or guarantee of the accuracy or completeness of information in this document.
--- NOTE | 2024-02-21 13:05 | US_ITS ---
[address] [address] Patient Name: JESSEE JEFFERS MRN: [id number] date: 1990 Sex: F Assigned Patient Location: [facility] Current Patient Location: Accession/Order Number: [id number] Exam Date: 02/21/2024 13:06 Report Date: 02/22/2024 08:40 At the request of: TEE RUBIN Procedure: US OB BPP w non-stress EXAMINATION: US OB BPP w non-stress HISTORY:Excessive growth COMPARISON: Ultrasound OB biophysical 02/14/2024 TECHNIQUE: Ultrasound biophysical profile was performed in the radiology department. BREATHING MOVEMENTS: 2 GROSS BODY MOVEMENTS: 2 TONE: 2 QUALITATIVE AMNIOTIC FLUID VOLUME: 2 PRESENTATION: CEPHALIC HEART RATE: 160.71 bpm AMNIOTIC FLUID VOLUME: 16.29 cm GESTATIONAL AGE: 37 weeks 2 days US/US OB BPP w non-stress IMPRESSION: Total biophysical profile score: 8 Electronically authenticated by: JENNIFER HARTLEY Date: 02/22/2024 08:40
[2024-02-21 13:30] VITALS: BP 128/74; PULSE 89
== END 2024-02-21 14:00 | disposition home or self-care (01) ==
LOC: FBCO 07:45 → FBC 13:02
PROVIDERS: Visit Provider Obstetrics & Gynecology
DX: O36.63X0 Maternal care for excessive fetal growth, third trimester, not applicable or unspecified (principal); Z3A.37 37 weeks gestation of pregnancy
CPT/HCPCS: 76818

== ENCOUNTER 2024-02-23 04:52 | Inpatient (IN) | payer OTHER, SELFPAY ==
[2024-02-23] VITALS (40 sets, daily range): BP systolic 101–149; BP diastolic 51–84; PULSE 75–131; TEMP 36.2–36.8
--- OUTSIDE RECORDS SUMMARY | 2024-02-23 04:56 | XMS_ITS | CCD ---
Author Organization [facility] Care Team Providers Care Etl Manager Name Role Phone Unavailable Primary Care Provider UnavailCHELSEA Murrieta Primary Care Physician [phone] Janice De La Rosa Unavailable Unavailable Unavailable [...] Unavailable PEDRO, DR OLIVEIRA Primary Care Unavailable ROCK TAVERN, DR EMELIA Luna Consulting Unavailable PEDRO, DR OLIVEIRA Consulting Unavailable Chaoy Anne Attending Unavailable Roxanne MOSLEY Attending Unavailable Asakatlyn, Imad Unavailable Anupama Brown DO Primary Care Provider Emile Mesa MD Unavailable Guillaume Vasquez DO Unavailable Anupama Brown DO Primary Care Provider Emile Mesa MD Unavailable Chelsea rKaus DO Primary Care Provider ASIF SCHAEFER Attending Unavailable CHELSEA KRAUS Referring Unavailable CHELSEA KRAUS Primary Care Unavailable Anupama Brown MD Primary Care Provider [phone] ASIF SCHAEFER Attending Unavailable EFRA, CHELSEA Quezada [...] Unavailable Primary Care Provider Unavailabl e KEVIN, [facility] Primary Care Unavailabl e KEVIN, [facility] Primary Care Unavailabl e ABHYANKAR, RONI Referring Unavailable ROSAS MCKINNEY Attending Unavailable KEVIN, [facility] Care Unavailabl e ABHYANKAR, RONI Referring Unavailable KEVIN, [facility] Care Unavailabl e KEVIN, [facility] Care Unavailabl e KEVIN, [facility] Primary Care Unavailabl e PEDRO, GUILLAUME R Referring Unavailable KEVIN, [facility] Care Unavailabl e FRANNY HAGER Referring Unavailable KEVIN, [facility] Care Unavailabl e PEDRO, GUILLAUME R Referring Unavailable KEVIN, [facility] Primary Care Unavailabl e KEVIN, [facility] Primary Care Unavailabl e PEDRO, GUILLAUME R Referring Unavailable KEVIN, [facility] Care Unavailabl e KEVIN, [facility] Primary Care Unavailabl e ASIF SCHAEFER Referring Unavailable PEDOR, GUILLAUME Attending Unavailable PEDRO, GUILLAUME Attending [...] day(s), # 20 cap(s), Refills(s) 0, Pharmacy: [facility], 172, cm, 05/26/22 9:34:00 EST, [...] Start: 09-11-2021 take 1 capsule by mo [facility] before mealtime omeprazole (PriLOSEC) [address] capsule Take 40 mg by mouth in the morning. Take before meals. 05/26/2022 Active Comment on above: Take 1 capsule by mo [facility] once daily. Wait 20-30 minutes before eating or taking other medications. Take 1 capsule by mo [facility] once daily in the morning, wait 20-30 minutes before eating or taking other medications Take 1 capsule by mo [facility] once daily. 20-30 minutes before eating [...] Comment on above: Take 1 capsule by [facility] twice daily. escitalopram 20 mg oral [...] Comment on above: Take 1 tablet by [facility] once daily. fluconazole 150 mg oral tablet (8 sources) Azole Antifungal Start: 02-07-20 End: 02-26-20 take 1 tablet by mouth once fluconazole (DIFLUCAN) 150 mg tablet 1 (one) tablet by mouth one time dose 1 tablet 1 02/06/2022 02/25/2023 Discontinued Comment on above: 1 (one) tablet by [facility] one time dose hydrOXYzine hydrochloride 50 [...] Comment on above: Take 1 tablet by [facility] three times daily as needed. 10 [...] 02/25/2023 Discontinued Start: 08-23-2020 End: 02-25-2023 medroxyPROGESTERone (DEPO-MS OVERA) 150 mg/mL injection Indications: Excessive or [...] UA Negative Negative - 4(70) +++ mg/dL [facility] Blood, UA Negative Negative - 50 Pepito/mcL [facility] Clarity, UA Clear [facility] Color, UA Yellow [facility] Glucose, UA Negative Negative - 2000(110) ++++ mg/dL [facility] Interpretation and review of laboratory results Normal [facility] Ketones, UA Negative Negative - 160(16) ++++ mg/dL [facility] Leukocytes, UA Negative Negative - 500+++ Ilia/mcL [facility] Nitrite, UA Negative Negative - Positive [facility] pH, UA 6.5 5 - 9 [facility] Protein, UA Negative Negative - 2000(20) ++++ mg/dL [facility] Spec Grav, UA 1.01 1 - 1.03 [facility] Urobilinogen, UA 0.2 0.2 - 12 mg/dL [facility] T4 Free SerPl-mCncon 024 Free T4 [Mass/Vol] 1.1 ng/dL Normal 0.9-1.[address] [facility] Comment on above: Order Comment: Speci men Type: BLOOD SPECIMEN Ordering Facility: [facility] OB-STEP DOWN NURSE Karina Address: [address] [place] [address] , [place] [address] Performed By: #### 3 016-3, 3024-7 #### [facility] CLIA [id number] [address] [place] [address] [place] TSH SerPl-aCncon 02-05-2024 TSH Qn 1.340 m[IU]/L Normal 0.270-4.200 [facility] Comment on above: Order Comment: Speci men Type: BLOOD SPECIMEN Ordering Facility: [facility] OB-STEP DOWN NURSE Karina Address: [address] [place], [place] [address] [place] [address] Result Comment: If t he patient is , TSH reference range varies by gestational period: First Trimester (weeks 9-12): 0.180-2.990 mIU/L Second Trimester: 0.110-3.980 mIU/L Third Trimester: 0.480-4.710 mIU/L Manuel Grayson et al. A Practical Approach for the Verifications and Determination of Site- and Trimester-Specific Reference Intervals for Thyroid Function tests in . Thyroid, 2019:29:3:412-420. Emanuel E, et al. 2017 Guidelines of the [place] Thyroid Association for the Diagnosis and Management of Thyroid Disease during and the . Thyroid, 2017:27:3:315-389. Performed By: #### 3 016-3, 3024-7 #### [facility] CLIA [id number] [address] [place] [address] STATES OF [facility] Urinalysis macro (dipstick) panel (U)on 01-27-2024 Bilirubin, UA Negative Negative - 4(70) +++ mg/dL [facility] Blood, UA Negative Negative - 50 Pepito/mcL [facility] Clarity, UA Clear [facility] Color, UA Yellow [facility] Glucose, UA Negative Negative - 2000(110) ++++ mg/dL [facility] Interpretation and review of laboratory results Normal [facility] Ketones, UA Negative Negative - 160(16) ++++ mg/dL [facility] Leukocytes, UA Negative Negative - 500+++ Ilia/mcL [facility] Nitrite, UA Negative Negative - Positive [facility] pH, UA 5.5 5 - 9 [facility] Protein, UA Negative Negative - 2000(20) ++++ mg/dL [facility] Spec Grav, UA 1.020 1 - 1.03 [facility] Urobilinogen, UA 0.2 0.2 - 12 mg/dL [facility] CBC W Auto Differential pane l (Bld)on 01-19-2024 Basophils (Bld) [#/Vol] 10*3/uL Normal <0.11 [facility] Comment on above: Order Comment: Speci men Type: BLOOD SPECIMEN Ordering Facility: External Submitter Address: , , Performed By: #### 5 7021-8 #### [facility] CLIA [id number] [address] [place] [address] Basophils/100 WBC (Bld) 0.2 % Normal [facility] Comment on above: Order Comment: Speci men Type: BLOOD SPECIMEN Ordering Facility: External Submitter Address: , , Performed By: #### 5 7021-8 #### [facility] CLIA [id number] [address] [place] [address]37 Differential cell count method Nom (Bld) Auto Normal [facility] Comment on above: Order Comment: Speci men Type: BLOOD SPECIMEN Ordering Facility: External Submitter Address: , , Performed By: #### 5 7021-8 #### [facility] CLIA [id number] [address] [place] [address] Eosinophils (Bld) [#/Vol] 0.06 10*3/uL Normal <0.46 [facility] Comment on above: Order Comment: Speci men Type: BLOOD SPECIMEN Ordering Facility: External Submitter Address: , , Performed By: #### 5 7021-8 #### [facility] CLIA [id number] [address] [place] [address]358 Eosinophils/100 WBC (Bld) 0.6 % Normal [facility] Comment on above: Order Comment: Speci men Type: BLOOD SPECIMEN Ordering Facility: External Submitter Address: , , Performed By: #### 5 7021-8 #### [facility] CLIA [id number] [address] [place] [address] 63252 Erythrocyte distribution width (RBC) [Ratio] 13.3 % Normal 11.5-15.0 [facility] Comment on above: Order Comment: Speci men Type: BLOOD SPECIMEN Ordering Facility: External Submitter Address: , , Performed By: #### 5 7021-8 #### [facility] CLIA [id number] [address] [place] [address] Hematocrit (Bld) [Volume fraction] 32.8 % Low 36.0-46.0 [facility] Comment on above: Order Comment: Speci men Type: BLOOD SPECIMEN Ordering Facility: External Submitter Address: , , Performed By: #### 5 7021-8 #### [facility] CLIA [id number] [address] [place] [address] 13576 Hemoglobin (Bld) [Mass/Vol] 10.7 g/dL Low 11.5-15.5 [facility] Comment on above: Order Comment: Speci men Type: BLOOD SPECIMEN Ordering Facility: External Submitter Address: , , Performed By: #### 5 7021-8 #### [facility] IA [id number] [address] [place] [address] 27886 Immature granulocytes (Bld) [#/Vol] 0.05 10*3/uL Normal <0.10 [facility] Comment on above: Order Comment: Speci men Type: BLOOD SPECIMEN Ordering Facility: External Submitter Address: , , Performed By: #### 5 7021-8 #### [facility] IA [id number] [address] [place] [address] 57130 Immature granulocytes/100 WBC (Bld) 0.5 % Normal [facility] Comment on above: Order Comment: Speci men Type: BLOOD SPECIMEN Ordering Facility: External Submitter Address: , , Performed By: #### 5 7021-8 #### [facility] IA [id number] [address] [place] [address] 35843 Lymphocytes (Bld) [#/Vol] 1.55 10*3/uL Normal 1.00-4.00 [facility] Comment on above: Order Comment: Speci men Type: BLOOD SPECIMEN Ordering Facility: External Submitter Address: , , Performed By: #### 5 7021-8 #### [facility] IA [id number] [address] [place] [address]77 Lymphocytes/100 WBC (Bld) 15.1 % Normal [facility] Comment on above: Order Comment: Speci men Type: BLOOD SPECIMEN Ordering Facility: External Submitter Address: , , Performed By: #### 5 7021-8 #### [facility] CLIA [id number] [address] [place] [address] 98041 MCH (RBC) [Entitic mass] 27.8 pg Normal 26.0-34.0 [facility] Comment on above: Order Comment: Speci men Type: BLOOD SPECIMEN Ordering Facility: External Submitter Address: , , Performed By: #### 5 7021-8 #### [facility] CLIA [id number] [address] [place] [address]85 MCHC (RBC) [Mass/Vol] 32.6 g/dL Normal 30.5-36.0 [facility] Comment on above: Order Comment: Speci men Type: BLOOD SPECIMEN Ordering Facility: External Submitter Address: , , Performed By: #### 5 7021-8 #### [facility] CLIA [id number] [address] [place] [address]508 MCV (RBC) [Entitic vol] 85.2 fL Normal 80.0-100.0 [facility] Comment on above: Order Comment: Speci men Type: BLOOD SPECIMEN Ordering Facility: External Submitter Address: , , Performed By: #### 5 7021-8 #### [facility] CLIA [id number] [address] [place] [address] 71415 Monocytes (Bld) [#/Vol] 0.77 10*3/uL Normal <0.87 [facility] Comment on above: Order Comment: Speci men Type: BLOOD SPECIMEN Ordering Facility: External Submitter Address: , , Performed By: #### 5 7021-8 #### [facility] CLIA [id number] [address] [place] [address] 74742 Monocytes/100 WBC (Bld) 7.5 % Normal [facility] Comment on above: Order Comment: Speci men Type: BLOOD SPECIMEN Ordering Facility: External Submitter Address: , , Performed By: #### 5 7021-8 #### [facility] CLIA [id number] [address] [place] [address] 43560 Neutrophils (Bld) [#/Vol] 7.81 10*3/uL High 1.45-7.50 [facility] Comment on above: Order Comment: Speci men Type: BLOOD SPECIMEN Ordering Facility: External Submitter Address: , , Performed By: #### 5 7021-8 #### [facility] CLIA [id number] [address] [place] [address] 97200 Neutrophils/100 WBC (Bld) 76.1 % Normal [facility] Comment on above: Order Comment: Speci men Type: BLOOD SPECIMEN Ordering Facility: External Submitter Address: , , Performed By: #### 5 7021-8 #### [facility] CLIA [id number] [address] [place] [address] 87444 Nucleated RBC (Bld) [#/Vol] 10*3/uL Normal <0.01 [facility] Comment on above: Order Comment: Speci men Type: BLOOD SPECIMEN Ordering Facility: External Submitter Address: , , Performed By: #### 5 7021-8 #### [facility] CLIA [id number] [address] [place] [address] 20705 Nucleated RBC/100 WBC (Bld) [Ratio] 0.0 /100 WBC Normal [facility] Comment on above: Order Comment: Speci men Type: BLOOD SPECIMEN Ordering Facility: External Submitter Address: , , Performed By: #### 5 7021-8 #### [facility] CLIA [id number] [address] [place] [address] 87151 Platelet mean volume (Bld) [Entitic vol] 11.3 fL Normal 9.0-12.7 [facility] Comment on above: Order Comment: Speci men Type: BLOOD SPECIMEN Ordering Facility: External Submitter Address: , , Performed By: #### 5 7021-8 #### [facility] CLIA [id number] [address] [place] [address] 12863 Platelets (Bld) [#/Vol] 172 10*3/uL Normal 150-400 [facility] Comment on above: Order Comment: Speci men Type: BLOOD SPECIMEN Ordering Facility: External Submitter Address: , , Performed By: #### 5 7021-8 #### [facility] CLIA [id number] [address] [place] [address] 34731 RBC (Bld) [#/Vol] 3.85 10*6/uL Low 3.90-5.[address] [facility] Comment on above: Order Comment: Speci men Type: BLOOD SPECIMEN Ordering Facility: External Submitter Address: , , Performed By: #### 5 7021-8 #### [facility] CLIA [id number] [address] [place] [address] 90523 WBC (Bld) [#/Vol] 10.26 10*3/uL Normal 3.70-11.00 [facility] Comment on above: Order Comment: Speci men Type: BLOOD SPECIMEN Ordering Facility: External Submitter Address: , , Performed By: #### 5 7021-8 #### [facility] IA [id number] [address] [place] [address] 25625 T4 Free SerPl-mCncon 024 Free T4 [Mass/Vol] 0.9 ng/dL Normal 0.9-1.[address] [facility] Comment on above: Order Comment: Speci men Type: BLOOD SPECIMEN Ordering Facility: [facility] OB-STEP DOWN NURSE Karina Address: [address] [place], [place] [address] [address] Performed By: #### G LTGST #### [facility] CLIA [id number] [address] [place] [address] [place] TSH SerPl-aCncon 01-05-2024 TSH Qn 1.220 m[IU]/L Normal 0.270-4.200 [facility] Comment on above: Order Comment: Speci [...] Nassar, et al. 2017 Guidelines of the [place] Thyroid Association for the Diagnosis and Management of Thyroid Disease during and the . Thyroid, 2017:27:3:315-389. Performed By: #### 5 7021-8 #### [facility] CLIA [id number] [address] [place], [place] [address] T4 Free SerPl-mCncon 024 Free T4 [Mass/Vol] 1.1 ng/dL Normal 0.9-1.[address] [facility] Comment on above: Order Comment: Speci men Type: BLOOD SPECIMEN Ordering Facility: [facility] OB-STEP DOWN NURSE [place] Address: [facility] [address] [place] [address] Performed By: #### G LTGST #### [facility] CLIA [id number] [address] [place] [address] [place] TSH SerPl-aCncon 12-08-2023 TSH Qn 0.607 m[IU]/L Normal 0.270-4.200 [facility] Comment on above: Order Comment: Speci vishnu Type: BLOOD SPECIMEN Ordering Facility: [facility] OB-STEP DOWN NURSE [place] Address: [facility] [place] [place] [address] Result Comment: If t he patient is , TSH reference range varies by gestational period: First Trimester (weeks 9-12): 0.180-2.990 mIU/L Second Trimester: 0.110-3.980 mIU/L Third Trimester: 0.480-4.710 mIU/L Manuel Grayson et al. A Practical Approach for the Verifications and Determination of Site- and Trimester-Specific Reference Intervals for Thyroid Function tests in . Thyroid, 2019:29:3:412-420. Emanuel E, et al. 2017 Guidelines of the [place] Thyroid Association for the Diagnosis and Management of Thyroid Disease during and the . Thyroid, 2017:27:3:315-389. Performed By: #### G LTGST #### [facility] CLIA [id number] [facility] [place] [address] [place] CBC W Auto Differential pane l (Bld)on 11-20-2023 Basophils (Bld) [#/Vol] 0.04 10*3/uL Normal <0.11 [facility] Comment on above: Order Comment: Speci men Type: BLOOD SPECIMEN Ordering Facility: [facility] OB-STEP DOWN NURSE [place] Address: [address] [place] [address] Performed By: #### 5 7021-8 #### [facility] CLIA [id number] [address] [place] [address] 94348 Basophils/100 WBC (Bld) 0.6 % Normal [facility] Comment on above: Order Comment: Speci men Type: BLOOD SPECIMEN Ordering Facility: [facility] Address: [address] [place] [address] Performed By: #### 5 7021-8 #### [facility] CLIA [id number] [address] [place] [address] 85764 Differential cell count method Nom (Bld) Auto Normal [facility] Comment on above: Order Comment: Speci men Type: BLOOD SPECIMEN Ordering Facility: [facility] OBSTEP DOWN NURSE [place] Address: [address] [place] [address] Performed By: #### 5 7021-8 #### [facility] CLIA [id number] [address] [place] [address] 94419 Eosinophils (Bld) [#/Vol] 0.05 10*3/uL Normal <0.46 [facility] Comment on above: Order Comment: Speci men Type: BLOOD SPECIMEN Ordering Facility: [facility] OB-STEP DOWN NURSE [place] Address: [address] [place] [address] Performed By: #### 5 7021-8 #### [facility] CLIA [id number] [address] [place] [address] 06910 Eosinophils/100 WBC (Bld) 0.7 % Normal [facility] Comment on above: Order Comment: Speci men Type: BLOOD SPECIMEN [facility] Address: [address] [place] [address] Performed By: #### 5 7021-8 #### [facility] CLIA [id number] [address] [place] [address] 39047 Erythrocyte distribution width (RBC) [Ratio] 12.9 % Normal 11.5-15.0 [facility] Comment on above: Order Comment: Speci men Type: BLOOD SPECIMEN Ordering Facility: [facility] Address: [facility] [place] [address] Performed By: #### 5 7021-8 #### [facility] CLIA [id number] [address] [place] [address] 74075 Hematocrit (Bld) [Volume fraction] 35.0 % Low 36.0-46.0 [facility] Comment on above: Order Comment: Speci men Type: BLOOD SPECIMEN Ordering Facility: [facility] Address: [address] [place] [address] Performed By: #### 5 7021-8 #### [facility] CLIA [id number] [address] [place] [address] 20569 Hemoglobin (Bld) [Mass/Vol] 11.4 g/dL Low 11.5-15.5 [facility] Comment on above: Order Comment: Speci men Type: BLOOD SPECIMEN Ordering Facility: [facility] Address: [address] [place] [id number] Performed By: #### 5 7021-8 #### [facility] CLIA [id number] [address] [place] [address] 69389 Immature granulocytes (Bld) [#/Vol] 10*3/uL Normal <0.10 [facility] Comment on above: Order Comment: Speci men Type: BLOOD SPECIMEN Ordering Facility: [facility] OB-STEP DOWN NURSE [place] Address: [address] [place] [address] Performed By: #### 5 7021-8 #### [facility] CLIA [id number] [address] [place] [address] Immature granulocytes/100 WBC (Bld) 0.3 % Normal [facility] Comment on above: Order Comment: Speci men Type: BLOOD SPECIMEN Ordering Facility: [facility] OBSTEP DOWN NURSE [place] Address: [address] [place] [address] Performed By: #### 5 7021-8 #### [facility] CLIA [id number] [address] [place] [address] 78471 Lymphocytes (Bld) [#/Vol] 1.25 10*3/uL Normal 1.00-4.00 [facility] Comment on above: Order Comment: Speci men Type: BLOOD SPECIMEN Ordering Facility: [facility] Address: [address] [place] [address] Performed By: #### 5 7021-8 #### [facility] CLIA [id number] [address] [place] [address] 65823 Lymphocytes/100 WBC (Bld) 18.3 % Normal [facility] Comment on above: Order Comment: Speci men Type: BLOOD SPECIMEN Ordering Facility: [facility] OB-STEP DOWN NURSE [place] Address: [address] [place] [address] Performed By: #### 5 7021-8 #### [facility] CLIA [id number] [address] [place] [address] 97902 MCH (RBC) [Entitic mass] 29.9 pg Normal 26.0-34.0 [facility] Comment on above: Order Comment: Speci men Type: BLOOD SPECIMEN [facility] [place] Address: [address] [place] [address] Performed By: #### 5 7021-8 #### [facility] CLIA [id number] [address] [place] [address] MCHC (RBC) [Mass/Vol] 32.6 g/dL Normal 30.5-36.0 [facility] Comment on above: Order Comment: Speci men Type: BLOOD SPECIMEN Ordering Facility: [facility] OB-STEP DOWN NURSE [place] Address: [facility] [address] [place] [id number] Performed By: #### 5 7021-8 #### [facility] CLIA [id number] [address] [place] [address] MCV (RBC) [Entitic vol] 91.9 fL Normal 80.0-100.0 [facility] Comment on above: Order Comment: Speci men Type: BLOOD SPECIMEN Ordering Facility: [facility] OB-STEP DOWN NURSE [place] Address: [facility] [address] [place] [id number] Performed By: #### 5 7021-8 #### [facility] CLIA [id number] [address] [place] [address] 32070 Monocytes (Bld) [#/Vol] 0.52 10*3/uL Normal <0.87 [facility] Comment on above: Order Comment: Speci men Type: BLOOD SPECIMEN Ordering Facility: [facility] Address: [facility] [address] [place] [id number] Performed By: #### 5 7021-8 #### [facility] CLIA [id number] [address] [place] [address] 48093 Monocytes/100 WBC (Bld) 7.6 % Normal [facility] Comment on above: Order Comment: Speci men Type: BLOOD SPECIMEN Ordering Facility: [facility] [place] Address: [facility] [address] [place] [id number] Performed By: #### 5 7021-8 #### [facility] CLIA [id number] [address] [place] [address] 00968 Neutrophils (Bld) [#/Vol] 4.94 10*3/uL Normal 1.45-7.50 [facility] Comment on above: Order Comment: Speci men Type: BLOOD SPECIMEN Ordering Facility: [facility] [place] Address: [address] [place] [address] Performed By: #### 5 7021-8 #### [facility] CLIA [id number] [address] [place] [address] Neutrophils/100 WBC (Bld) 72.5 % Normal [facility] Comment on above: Order Comment: Speci men Type: BLOOD SPECIMEN Ordering Facility: [facility] [place] Address: [address] [place] [address] Performed By: #### 5 7021-8 #### [facility] CLIA [id number] [address] [place] [address] 51827 Nucleated RBC (Bld) [#/Vol] 10*3/uL Normal <0.01 [facility] Comment on above: Order Comment: Speci men Type: BLOOD SPECIMEN Ordering Facility: [facility] Address: [address] [place] [address] Performed By: #### 5 7021-8 #### [facility] CLIA [id number] [address] [place] [address] 09026 Nucleated RBC/100 WBC (Bld) [Ratio] 0.0 /100 WBC Normal [facility] Comment on above: Order Comment: Speci men Type: BLOOD SPECIMEN Ordering Facility: [facility] Address: [address] [place] [address] Performed By: #### 5 7021-8 #### [facility] CLIA [id number] [address] [place] [address] Platelet mean volume (Bld) [Entitic vol] 11.4 fL Normal 9.0-12.7 [facility] Comment on above: Order Comment: Speci men Type: BLOOD SPECIMEN Ordering Facility: [facility] Address: [address] [place] [address] Performed By: #### 5 7021-8 #### [facility] CLIA [id number] [address] [place] [address] Platelets (Bld) [#/Vol] 167 10*3/uL Normal 150-400 [facility] Comment on above: Order Comment: Speci men Type: BLOOD SPECIMEN [facility] Address: [facility] [place] [address] Performed By: #### 5 7021-8 #### [facility] CLIA [id number] [address] [place] [address] 11964 RBC (Bld) [#/Vol] 3.81 10*6/uL Low 3.90-5.[address] [facility] Comment on above: Order Comment: Speci men Type: BLOOD SPECIMEN [facility] Address: [facility] [place] [address] Performed By: #### 5 7021-8 #### [facility] CLIA [id number] [address] [place] [address] 62443 WBC (Bld) [#/Vol] 6.82 10*3/uL Normal 3.70-11.[address] [facility] Comment on above: Order Comment: Speci men Type: BLOOD SPECIMEN Ordering Facility: [facility] Address: [facility] [place] [address] Performed By: #### 5 7021-8 #### [facility] CLIA [id number] [address] [place] [address] 39326 GESTATIONAL GLUCOSE SCREEN, 1-HOUR, 50 GRAM, NON-FASTINGon 11-20-2023 Glucose [Mass/Vol] 97 mg/dL Normal 74-[address] [facility] Comment on above: Order Comment: Speci men Type: BLOOD SPECIMEN [facility] Address: [facility] [place] [address] Result Comment: [facility] Congress of Obstetricians and Gynecologists (Alma/Adrián) guidelines state a gestational diabetes mellitus positive screen is made, in women not previously diagnosed with overt diabetes, when the 1 hr plasma glucose level is equal to or above 140 mg/dL. The [facility] [employer] [facility] [place] recommends a 135 mg/dL cutoff. Performed By: #### G LTGST #### [facility] CLIA [id number] [facility] [place] [address] [place] T4 Free SerPl-mCncon 024 Free T4 [Mass/Vol] 1.0 ng/dL Normal 0.9-1.[address] [facility] Comment on above: Order Comment: Speci men Type: BLOOD SPECIMEN Ordering Facility: External Submitter Address: , , Performed By: #### 5 7021-8 #### [facility] CLIA [id number] [address] [place] [address] 93239 TSH SerPl-aCncon 10-22-2023 TSH Qn 4.510 m[IU]/L High 0.270-4.200 [facility] Comment on above: Order Comment: Speci [...] Nassar, et al. 2017 Guidelines of the [place] Thyroid Association for the Diagnosis and Management of Thyroid Disease during and the . Thyroid, 2017:27:3:315-389. Performed By: #### 5 7021-8 #### [facility] CLIA [id number] [address] [place] [address] 94875 CBC W Auto Differential pane l (Bld)on 08-08-2023 Basophils (Bld) [#/Vol] 10*3/uL Normal <0.11 [facility] Comment on above: Order Comment: Speci men Type: BLOOD SPECIMEN Ordering Facility: External Submitter Address: , , Performed By: #### 5 7021-8 #### [facility] CLIA [id number] [address] [place] [address] 78137 Basophils/100 WBC (Bld) 0.3 % Normal [facility] Comment on above: Order Comment: Speci men Type: BLOOD SPECIMEN Ordering Facility: External Submitter Address: , , Performed By: #### 5 7021-8 #### [facility] CLIA [id number] [address] [place] [address] 12152 Differential cell count method Nom (Bld) Auto Normal [facility] Comment on above: Order Comment: Speci men Type: BLOOD SPECIMEN Ordering Facility: External [facility] Address: , , Performed By: #### 5 7021-8 #### [facility] CLIA [id number] [address] [place] [address] 93153 Eosinophils (Bld) [#/Vol] 0.06 10*3/uL Normal <0.46 [facility] Comment on above: Order Comment: Speci men Type: BLOOD SPECIMEN Ordering Facility: External Submitter Address: , , Performed By: #### 5 7021-8 #### [facility] CLIA [id number] [address] [place] [address] 87350 Eosinophils/100 WBC (Bld) 0.9 % Normal [facility] Comment on above: Order Comment: Speci men Type: BLOOD SPECIMEN Ordering Facility: External Submitter Address: , , Performed By: #### 5 7021-8 #### [facility] CLIA [id number] [address] [place] [address] 24832 Erythrocyte distribution width (RBC) [Ratio] 13.7 % Normal 11.5-15.0 [facility] Comment on above: Order Comment: Speci men Type: BLOOD SPECIMEN Ordering Facility: External Submitter Address: , , Performed By: #### 5 7021-8 #### [facility] CLIA [id number] [address] [place] [address] 39732 Hematocrit (Bld) [Volume fraction] 40.1 % Normal 36.0-46.0 [facility] Comment on above: Order Comment: Speci men Type: BLOOD SPECIMEN Ordering Facility: External Submitter Address: , , Performed By: #### 5 7021-8 #### [facility] CLIA [id number] [address] [place] [address] Hemoglobin (Bld) [Mass/Vol] 13.4 g/dL Normal 11.5-15.5 [facility] Comment on above: Order Comment: Speci men Type: BLOOD SPECIMEN Ordering Facility: External [facility]mitter Address: , , Performed By: #### 5 7021-8 #### [facility] CLIA [id number] [address] [place] [address] 94089 Immature granulocytes (Bld) [#/Vol] 10*3/uL Normal <0.10 [facility] Comment on above: Order Comment: Speci men Type: BLOOD SPECIMEN Ordering Facility: External Submitter Address: , , Performed By: #### 5 7021-8 #### [facility] CLIA [id number] [address] [place] [address] 58084 Immature granulocytes/100 WBC (Bld) 0.3 % Normal [facility] Comment on above: Order Comment: Speci men Type: BLOOD SPECIMEN Ordering Facility: External Submitter Address: , , Performed By: #### 5 7021-8 #### [facility] CLIA [id number] [address] [place] [address] 49416 Lymphocytes (Bld) [#/Vol] 1.67 10*3/uL Normal 1.00-4.00 [facility] Comment on above: Order Comment: Speci men Type: BLOOD SPECIMEN Ordering Facility: [facility]mitter Address: , , Performed By: #### 5 7021-8 #### [facility] CLIA [id number] [address] [place] [address] 24481 Lymphocytes/100 WBC (Bld) 24.9 % Normal [facility] Comment on above: Order Comment: Speci men Type: BLOOD SPECIMEN Ordering Facility: External Submitter Address: , , Performed By: #### 5 7021-8 #### [facility] CLIA [id number] [address] [place] [address] 60206 MCH (RBC) [Entitic mass] 31.1 pg Normal 26.0-34.0 [facility] Comment on above: Order Comment: Speci men Type: BLOOD SPECIMEN Ordering Facility: External Submitter Address: , , Performed By: #### 5 7021-8 #### [facility] CLIA [id number] [address] [place] [address] 98797 MCHC (RBC) [Mass/Vol] 33.4 g/dL Normal 30.5-36.0 [facility] Comment on above: Order Comment: Speci men Type: BLOOD SPECIMEN Ordering Facility: External Submitter Address: , , Performed By: #### 5 7021-8 #### [facility] CLIA [id number] [address] [place] [address] 40850 MCV (RBC) [Entitic vol] 93.0 fL Normal 80.0-100.0 [facility] Comment on above: Order Comment: Speci men Type: BLOOD SPECIMEN Ordering Facility: External [facility]mitter Address: , , Performed By: #### 5 7021-8 #### [facility] CLIA [id number] [address] [place] [address] 76394 Monocytes (Bld) [#/Vol] 0.50 10*3/uL Normal <0.87 [facility] Comment on above: Order Comment: Speci men Type: BLOOD SPECIMEN Ordering Facility: External Submitter Address: , , Performed By: #### 5 7021-8 #### [facility] CLIA [id number] [address] [place] [address] 56029 Monocytes/100 WBC (Bld) 7.5 % Normal [facility] Comment on above: Order Comment: Speci men Type: BLOOD SPECIMEN Ordering Facility: External Submitter Address: , , Performed By: #### 2 5421-8 #### [facility] CLIA [id number] [address] [place] [address] 71698 Neutrophils (Bld) [#/Vol] 4.44 10*3/uL Normal 1.45-7.50 [facility] Comment on above: Order Comment: Speci men Type: BLOOD SPECIMEN Ordering Facility: External Submitter Address: , , Performed By: #### 5 7021-8 #### [facility] CLIA [id number] [address] [place] [address] 49493 Neutrophils/100 WBC (Bld) 66.1 % Normal [facility] Comment on above: Order Comment: Speci men Type: BLOOD SPECIMEN Ordering Facility: External Submitter Address: , , Performed By: #### 5 7021-8 #### [facility] CLIA [id number] [address] [place] [address] 14823 Nucleated RBC (Bld) [#/Vol] 10*3/uL Normal <0.01 [facility] Comment on above: Order Comment: Speci men Type: BLOOD SPECIMEN Ordering Facility: External Submitter Address: , , Performed By: #### 5 7021-8 #### [facility] CLIA [id number] [address] [place] [address] 85376 Nucleated RBC/100 WBC (Bld) [Ratio] 0.0 /100 WBC Normal [facility] Comment on above: Order Comment: Speci men Type: BLOOD SPECIMEN Ordering Facility: External Submitter Address: , , Performed By: #### 5 7021-8 #### [facility] CLIA [id number] [address] [place] [address] 72944 Platelet mean volume (Bld) [Entitic vol] 12.1 fL Normal 9.0-12.7 [facility] Comment on above: Order Comment: Speci men Type: BLOOD SPECIMEN Ordering Facility: External Submitter Address: , , Performed By: #### 5 7021-8 #### [facility] CLIA [id number] [address] [place] [address] 36995 Platelets (Bld) [#/Vol] 148 10*3/uL Low 150-400 [facility] Comment on above: Order Comment: Speci men Type: BLOOD SPECIMEN Ordering Facility: External Submitter Address: , , Performed By: #### 5 7021-8 #### [facility] CLIA [id number] [address] [place] [address] 06724 RBC (Bld) [#/Vol] 4.31 10*6/uL Normal 3.90-5.[address] [facility] Comment on above: Order Comment: Speci men Type: BLOOD SPECIMEN Ordering Facility: External Submitter Address: , , Performed By: #### 5 7021-8 #### [facility] CLIA [id number] [address] [place] [address] 93280 WBC (Bld) [#/Vol] 6.71 10*3/uL Normal 3.70-11.[address] [facility] Comment on above: Order Comment: Speci men Type: BLOOD SPECIMEN Ordering Facility: External Submitter Address: , , Performed By: #### 5 7021-8 #### [facility] CLIA [id number] [address] [place] [address] 59185 HBV surface Ag Ser Qlon 07-20 HBV surface Ag Ql (S) Negative Normal Negative [facility] Comment on above: Order Comment: Roycei [facility] Type: BLOOD SPECIMEN Ordering Facility: External Submitter Address: , , Performed By: #### 5 7021-8 #### [facility] CLIA [id number] [address] [place] [address] 10533 HCV Ab Ser Qlon 08-08-2023 HCV Ab Ql (S) Negative Normal Negative [facility] Comment on above: Order Comment: Tammy [facility] Type: BLOOD SPECIMEN Ordering Facility: External Submitter Address: , , Result Comment: The result suggests no evidence of active infection with Hepatitis C virus. Should recent infection be suspected, repeat testing may be considered 4-6 weeks after this draw. Performed By: #### 1 6128-1 #### [facility] CLIA [id number] [address] [place], [place] [address] [place] HIV 1+2 Ab IA Qlon HIV 1 and 2 Ab IA.rapid Nom (S/P/Bld) Normal [facility] Comment on above: Order Comment: Speci men Type: BLOOD SPECIMEN Ordering Facility: External Submitter Address: , , Result Comment: Test not indicated. Performed By: #### 5 7021-8 #### [facility] CLIA [id number] [address] [place] [address] 22420 HIV 1+2 Ab+HIV1 p24 Ag IA Ql Non-Reactive Normal Nonreactive [facility] Comment on above: Order Comment: Speci vishnu Type: BLOOD SPECIMEN Ordering Facility: External Submitter Address: , , Performed By: #### 5 7021-8 #### [facility] CLIA [id number] [address] [place] [address] 36617 HIV immunoassay testing algorithm interpretation (S/P/Bld) [Interp] Normal [facility] Comment on above: Order Comment: Speci vishnu Type: BLOOD SPECIMEN Ordering Facility: External Submitter Address: , , Result Comment: No e vidence of HIV-1 or HIV-2 infection. Should recent infection be suspected, repeat testing may be considered 2-3 weeks after this draw. [place] Rev. Code 3701.243(E): This information has been [...] diagnoses. Performed By: #### 5 7021-8 #### [facility] CLIA [id number] [address] [place] [address] 36174 HbA1c (Bld)on 08-08-2023 Average glucose Estimated from glycated hemoglobin (Bld) [Mass/Vol] 105 mg/dL Normal [facility] Comment on above: Order Comment: Speci vishnu Type: BLOOD SPECIMEN Ordering Facility: External Submitter Address: , , Result Comment: eAG: (Estimated average glucose) is a calculated value from HgbA1c and is patient service representative of the average blood glucose level in the last 2-3 month period. Performed By: #### 5 5454-3 #### [facility] CLIA [id number] [address] [place] [address] [place] HbA1c (Bld) [Mass fraction] 5.3 % Normal 4.3-5.6 [facility] Comment on above: Order Comment: Speci [...] diabetes. Performed By: #### 5 5454-3 #### [facility] CLIA [id number] [address] [place] [address] [place] RPR Ser Qlon 08-08-2023 Reagin Ab RPR Ql (S) Non-Reactive Normal Nonreactive [facility] Comment on above: Order Comment: aTmmy mares Type: BLOOD SPECIMEN Ordering Facility: [facility] [place] Address: [facility] [address] [place] [address] Result Comment: Rapi d plasma reagin (RPR) test detects non-treponemal antibodies. RPR may be reactive in a variety of infectious and non-infectious conditions. Correlation with clinical picture and with treponemal antibody results is required for final interpretation. Performed By: #### G LTGST #### [facility] CLIA [id number] [facility] [place] [address] [place] RUBELLA IGG ANTIBODYon 08-07 RUBELLA IGG AB, QUAL Positive Normal Positive [facility] Comment on above: Order Comment: Tammy mares Type: BLOOD SPECIMEN Ordering Facility: [facility] [place] Address: [facility] [address] [place] [address] Result Comment: The result suggests recent or past exposure to Rubella virus or history of Rubella vaccination. Positive result may also be seen due to presence of passively-transferred antibodies. Please correlate with patient's history. Performed By: #### G LTGST #### [facility] CLIA [id number] [address] [place] TYPE + SCREENon 08-08-2023 ABO A Normal [facility] Comment on above: Order Comment: Speci men Type: BLOOD SPECIMEN Ordering Facility: External Submitter Address: , , Performed By: #### T SCR #### [facility] CLIA [id number] [address] [place] [address] [place] HISTORICAL AB SCR STATUS Negative Normal [facility] Comment on above: Order Comment: Speci men Type: BLOOD SPECIMEN Ordering Facility: External Submitter Address: , , Performed By: #### T SCR #### [facility] CLIA [id number] [address] [place] [address] [place] Rh Nom (Bld) Positive Normal [facility] Comment on above: Order Comment: Speci men Type: BLOOD SPECIMEN Ordering Facility: External Submitter Address: , , Performed By: #### T SCR #### [facility] CLIA [id number] [address] [place] [address] [place] TYPE AND SCREEN EXPIRATION 08/11/2023 23:59 Normal [facility] Comment on above: Order Comment: Speci men Type: BLOOD SPECIMEN Ordering Facility: External Submitter Address: , , Performed By: #### T SCR #### [facility] CLIA [id number] [address] [place] [address] [place] B-HCG SerPl-aCncon 4 HCG.beta subunit Qn m[IU]/mL Normal <5.0 [facility] Comment on above: Order Comment: Speci men Type: BLOOD SPECIMEN Ordering Facility: External Submitter Address: , , Result Comment: Negdonita tiolvin Performed By: #### 5 7021-8 #### [facility] CLIA [id number] [address] [place] [address] 92461 Jenni 05-16-2023 SUN Telephone (MAGDYASA) JESSEE ALMODOVAR ([id number]) 1990 [address] [facility] Date Time Provider Department 05/16/23 RONI DUMAS During your visit today, we recorded the following information about you: Allergies As of Date: 05/16/2023 (No Known Allergies) Date Reviewed: 04/11/2023 Reviewed by: Macy Jones APRN.ASSET CARD CLERK - Fully Assessed Reason for Visit: Lab Orders [1688] Primary Visit Diagnosis:Possible , not confirmed [Z32.00] Order(s):HCG QUANTITATIVE [SQHCGQT] Order #: [id number] FUTURE Prescriptions as of 05/16/2023 - doxycycline [...] Status:Closed by RONI DUMAS on 05/16/23 Normal [facility] TOX SCREEN ROUT URon 024 Amphetamines Confirm (U) [Mass/Vol] Negative Normal Negative [facility] Comment on above: Order Comment: Speci men Type: BLOOD SPECIMEN Ordering Facility: [facility] [place] Address: [address] [place] [address] [address], [place] [address] Result Comment: Cuto ff threshold at 1000 ng/mL. Performed By: #### G LTGST #### [facility] CLIA [id number] [address] [place] [address] [place] BARBITURATES, URINE Negative Normal Negative [facility] Comment on above: Order Comment: Speci men Type: BLOOD SPECIMEN Ordering Facility: [facility] [place] Address: [facility] [place] [address] Result Comment: Cuto ff threshold at 200 ng/mL. Performed By: #### G LTGST #### [facility] CLIA [id number] [address] [place] [address] [place] BENZODIAZEPINES, UR Negative Normal Negative [facility] Comment on above: Order Comment: Speci men Type: BLOOD SPECIMEN Ordering Facility: [facility] [place] Address: [facility] [place] [address] Result Comment: Cuto ff threshold at 200 ng/mL. Performed By: #### G LTGST #### [facility] CLIA [id number] [address] [place] [address] [place] Cannabinoids Screen Ql (U) Negative Normal Negative [facility] Comment on above: Order Comment: Speci men Type: BLOOD SPECIMEN [facility] [place] Address: [facility] [place] [address] Result Comment: Cuto ff threshold at 50 ng/mL. Performed By: #### G LTGST #### [facility] IA [id number] [address] [place] [address] [place] Cocaine Ql (U) Negative Normal Negative [facility] Comment on above: Order Comment: Speci men Type: BLOOD SPECIMEN Ordering Facility: [facility] [place] Address: [facility] [place] [address] Result Comment: Cuto ff threshold at 300 ng/mL. Performed By: #### G LTGST #### [facility] CLIA [id number] [address] [place] [address] [place] Ethanol (U) [Mass/Vol] <11 Normal <11 [facility] Comment on above: Order Comment: Speci men Type: BLOOD SPECIMEN Ordering Facility: [facility] [place] Address: [facility] [place] [address] Performed By: #### G LTGST #### [facility] CLIA [id number] [address] [place] [address] [place] Opiates Screen Ql (U) Negative Normal Negative [facility] Comment on above: Order Comment: Speci men Type: BLOOD SPECIMEN Ordering Facility: [facility] [place] Address: [facility] [place] [address] Result Comment: Cuto ff threshold at 300 ng/mL. Performed By: #### G LTGST #### [facility] CLIA [id number] [address] [place] [address] [place] oxyCODONE cutoff Screen (U) [Mass/Vol] Negative Normal Negative [facility] Comment on above: Order Comment: Speci men Type: BLOOD SPECIMEN Ordering Facility: [facility] [place] Address: [address] [place] [address] [place] [address] Result Comment: Cuto ff threshold at 100 ng/mL. Performed By: #### G LTGST #### [facility] CLIA [id number] [address] [place] [address] [place] Phencyclidine Ql (U) Negative Normal Negative [facility] Comment on above: Order Comment: Speci men Type: BLOOD SPECIMEN Ordering Facility: [facility] Address: [address] [place], [place] [address] [place] [place] [place] [address] Result Comment: Cuto ff threshold at 25 ng/mL. Performed By: #### G LTGST #### [facility] CLIA [id number] [address] [place] [address] [place] B-HCG SerPl-aCncon 4 HCG.beta subunit Qn m[IU]/mL Normal <5.0 [facility] Comment on above: Order Comment: Speci men Type: BLOOD SPECIMEN Ordering Facility: External Submitter Address: , , Result Comment: Dianne logan Performed By: #### 5 [id number] #### [facility] CLIA [id number] [address] [place] [address] SAGRARIOOVernie 02-25-2023 CNOV Office Visit (ORTHMN ) JESSEE ALMODOVAR ([id number]) 1990 F [facility] Date Time [...] with a (more content not included)... Normal [facility] XR HIP 3V PELV+ AP/LAT RTon [...] any questions regarding this interpretation, please call [phone]. If you are unable to reach us at the number above, please feel free to contact [facility] at [phone]. [id number] Normal [facility] XR Pelvis and Hip - right [...] any questions regarding this interpretation, please call [phone]. If you are unable to reach us at the number above, please feel free to contact [facility] eRadiology at [phone]. DIVISION OF RADIOLOGY * * *Final Report* [...] unremarkable. DIVISION OF RADIOLOGY Provider, Tom Salinas [facility] - 02/20/2023 * * *Final Report* [...] any questions regarding this interpretation, please call [phone]. If you are unable to reach us at the number above, please feel free to contact [facility]iology at [phone]. 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] Order(s):XR HIP GENERAL 3V PELV/AP/LAT RIGHT [[id number]] Order #: [id number] FUTURE Prescriptions as of 02/17/2023 - amphetamine-dextroamphe [...] Status:Closed by TIANA CRONIN on 02/17/23 Normal [facility] CBC W Auto Differential pane l (Bld)on 11-15-2022 Basophils (Bld) [#/Vol] 0.04 10*3/uL <0.11 k/uL [facility] Basophils/100 WBC (Bld) 0.8 % [facility] Differential cell count method Nom (Bld) Auto [facility] Eosinophils (Bld) [#/Vol] 0.11 10*3/uL <0.46 k/uL [facility] Eosinophils/100 WBC (Bld) 2.1 % [facility] Erythrocyte distribution width (RBC) [Ratio] 13.7 % 11.5 - 15.0 % [facility] Hematocrit (Bld) [Volume fraction] 46.7 % High 36.0 - 46.0 % [facility] Hemoglobin (Bld) [Mass/Vol] 15.6 g/dL High 11.5 - 15.5 g/dL [facility] Immature granulocytes (Bld) [#/Vol] <0.10 k/uL [facility] Immature granulocytes/100 WBC (Bld) 0.2 % [facility] Lymphocytes (Bld) [#/Vol] 1.77 10*3/uL 1.00 - 4.00 k/uL [facility] Lymphocytes/100 WBC (Bld) 33.7 % [facility] MCH (RBC) [Entitic mass] 31.8 pg 26.0 - 34.0 pg [facility] MCHC (RBC) [Mass/Vol] 33.4 g/dL 30.5 - 36.0 g/dL [facility] MCV (RBC) [Entitic vol] 95.3 fL 80.0 - 100.0 fL [facility] Monocytes (Bld) [#/Vol] 0.64 10*3/uL <0.87 k/uL [facility] Monocytes/100 WBC (Bld) 12.2 % [facility] Neutrophils (Bld) [#/Vol] 2.68 10*3/uL 1.45 - 7.50 k/uL [facility] Neutrophils/100 WBC (Bld) 51.0 % [facility] Nucleated RBC (Bld) [#/Vol] <0.01 k/uL [facility] Nucleated RBC/100 WBC (Bld) [Ratio] 0.0 /100 WBC [facility] Platelet mean volume (Bld) [Entitic vol] 11.3 fL 9.0 - 12.7 fL [facility] Platelets (Bld) [#/Vol] 154 10*3/uL 150 - 400 k/uL [facility] RBC (Bld) [#/Vol] 4.90 10*6/uL 3.90 - 5.2 0 m/uL [facility] WBC (Bld) [#/Vol] 5.25 10*3/uL 3.70 - 11. 00 k/uL [facility] CBC W Auto Differential pane l (Bld)on 08-09-2022 Basophils (Bld) [#/Vol] 0.03 10*3/uL <0.11 k/uL [facility] Basophils/100 WBC (Bld) 0.6 % [facility] Differential cell count method Nom (Bld) Auto [facility] Eosinophils (Bld) [#/Vol] 0.05 10*3/uL <0.46 k/uL [facility] Eosinophils/100 WBC (Bld) 0.9 % [facility] Erythrocyte distribution width (RBC) [Ratio] 13.6 % 11.5 - 15.0 % [facility] Hematocrit (Bld) [Volume fraction] 42.0 % 36.0 - 46.0 % [facility] Hemoglobin (Bld) [Mass/Vol] 13.5 g/dL 11.5 - 15.5 g/dL [facility] Immature granulocytes (Bld) [#/Vol] <0.10 k/uL [facility] Immature granulocytes/100 WBC (Bld) 0.4 % [facility] Lymphocytes (Bld) [#/Vol] 1.57 10*3/uL 1.00 - 4.00 k/uL [facility] Lymphocytes/100 WBC (Bld) 29.0 % [facility] MCH (RBC) [Entitic mass] 30.5 pg 26.0 - 34.0 pg [facility] MCHC (RBC) [Mass/Vol] 32.1 g/dL 30.5 - 36.0 g/dL [facility] MCV (RBC) [Entitic vol] 94.8 fL 80.0 - 100.0 fL [facility] Monocytes (Bld) [#/Vol] 0.47 10*3/uL <0.87 k/uL [facility] Monocytes/100 WBC (Bld) 8.7 % [facility] Neutrophils (Bld) [#/Vol] 3.27 10*3/uL 1.45 - 7.50 k/uL [facility] Neutrophils/100 WBC (Bld) 60.4 % [facility] Nucleated RBC (Bld) [#/Vol] <0.01 k/uL [facility] Nucleated RBC/100 WBC (Bld) [Ratio] 0.0 /100 WBC [facility] Platelet mean volume (Bld) [Entitic vol] 11.1 fL 9.0 - 12.7 fL [facility] Platelets (Bld) [#/Vol] 145 10*3/uL Low 150 - 400 k/uL [facility] RBC (Bld) [#/Vol] 4.43 10*6/uL 3.90 - 5.2 0 m/uL [facility] WBC (Bld) [#/Vol] 5.41 10*3/uL 3.70 - 11. 00 k/uL [facility] XR Pelvis and Hip - [...] any questions regarding this interpretation, please call [phone]. If you are unable to reach us at the number above, please feel free to contact [facility] at [phone]. DIVISION OF RADIOLOGY * * *Final Report* [...] in the interval. DIVISION OF RADIOLOGY Provider, [facility] - 08/01/2022 * * *Final Report* [...] any questions regarding this interpretation, please call [phone]. If you are unable to reach us at the number above, please feel free to contact [facility] eRadiology at [phone]. [facility] Radiology Study observation (narrative) [facility] XR Pelvis and Hip - right AP and Lateral frogOrdered By: Ccf Provider on 08-01-2022 [facility] Ambulatory Visit Summaryon 0 05-26-2022 [...] Up with CHELSEA KRAUS DO When: Where: [facility] [address] [place] [id number]- Medications What How Much When Why Instructions New amoxicillin (amoxicillin 500 mg Cap) 1 Capsules By Mouth Every 12 hours Strep pharyngitis Duration: 10 Days Pickup at [facility] 1985 Unchanged biotin Contact prescribing physician [...] physician if questions or concerns Pharmacy Information [facility]: [address] [place] [id number] [phone] Allergies No Known Allergies Problems Ongoing - [...] these instructions at home: Medicines ? Take pbcu-sil-rebkjlh and prescription medicines only as told by [...] drinking cup (more content not included)... 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 No vuys-jae-meeduaj medications today. Review of Systems PHQ Score [...] day(s), # 20 cap(s), Refills(s) 0, Pharmacy: [facility], 172, cm, 05/26/22 9:34:00 EST, [...] Acute pharyngitis, unspecified) Ordered: Rapid Strep POC 54557 Follow-up With When Contact Information CHELSEA KRAUS DO [facility] [address] [place] [address]- Additional Instructions: Patient Education Strep Throat, Adult, Dizm-cv-Vnbx BMI for Adults Problem List/Past Medical History [...] Strep POC Result: Positive (05/26/22 09:56:00) Normal [facility] Comment on above: Result Comment: Elec [...] these instructions at home: Medicines ? Take vdom-zov-jtvgnav and prescription medicines only as told by [...] 09/23/2008 Document Revised: 06/25/2019 Document Reviewed: 06/25/2019 [employer] Patient Education ? 2019 [employer]. Nutrition BMI for Adults Body mass index (BMI) is a number that is calculated from a person's weight and height. BMI may help to estimate how much of a person's weight is composed of fat. BMI can help identify those who may be (more content not included)... Normal [facility] Coding Summary.on 02-26-2022 Coding Summary. [id number] Gh0 bWw+PGhlYWQ+UA7NOYLnT91 kfZSbsS6GB0xSSV5KXSZGVK PJBA9MDD0trPE4GZpgI1Qyb iAv IzljvXZoMF15AIw1JGL5pGw rUYmpiP9qnJYfG4k0LsOiBB 62wD80XHmcNTDeWdU6WwWtb jsgbWFy H7odUmCbwRMsImr+PHRhYmx lIHdpZHRoPScxMDAlJyBzdH agZY4eWg3eIBKzXVAvqYuia HNlOiBj o8gyRQUeZUhyFS6fyKpyO9T gbBY0XZFdc4g9Sj48oPD+PH GeYOA4mGxdARcgg829IaZuq 4ofWAQ9 uVFmBPtbDTI4J04kt1T8NKL bPEKyMCC1lIN6bY4btMpgvj sqL7EtdPTzMwF0KRA5mUJnx F6yeLcd qjjjuF2tJpt+E91VQS9DRSN RSU6AHth1Z6EbZgesxBX+PC 02BRMgJI08uUOeeRYqv3say Ds2RwPr CNQkVEV9iMsqUMafg9ImAWR iS87wgXQrh2R8UGXrqPloxB KeGxCyeYY0kH9tWIzspbqwc 2hvdzsn Wzqqy3qpvk98hO10M02eTEg gGVPsAQO5KHEmOSWmpVfdwu 6dnD5aKe0+DFful1heb3csa Hd4QvAq NATrtkUcuVqwXET3o6NsRb4 6W0JchTlex3WwIpo6zu26eZ Cvb8Y5uAE1ORfdXASdeM4qQ WxlZnQ6 LENtBuPnlZ74sACuLSveIz7 fvJvkxErzFV1bBXZwnlmvVA OtnV5hLDXkdSPfrWrkNP5qM TBpbjtm v813HwKsQLC0GYMahJOdZ9O yqP8iEfYvKJCyTWNdS2PutC BkKFsoZ845HZuwEdC6UUPit dHwC2Mk DZSgjVnjKrK3m3B2Yc6Ut4X tslofSRI5RLetAIVaUtL4Qt PvBkX6Q9UsVqu1QJSptWdyO D7uC2Ww HMAssfprkkmyoBU1MTVwROU xyC76uKBfQRfwOb6fz8N4e7 13CBHzLDEmoU63Py2cpZhtY TBwdCBU mK6puxcqb0jxwkcuCrSeRPW vXQu9HHh0OVWreIadTiRxUO I1TuE8XYW2uLJvuF1uxEico laetL4e Oyc+G23heY4hWLR9FSU6mye uXMDnrtIaQA60PI57B5JwKp wvdGFibGU+PGRpdiBzdHlsZ B3iJqZx r7fbf5IwDYhjY9EjHFAlNFa zYeo9DWHrLMG4kFO2oK9zMK EdPYpcm6S1mUT8J6YpcqBmo m1ql1kd TYVnVYkhI86jyVVju9P9QTY wkBF1ILFtpOdhMeGnaB85My c+BGVjpDepf3QbUkhjw6afn 8hjxPm1 OcUeGLBaiaLpiUkuQGB9d7B wDb01L15lSNimBXTtAHTpRQ GyDFVdvKuvxb9fpK4sNc4+P GNvbCB3 bTG0iL1tIWLuIeQ4NWijI33 2NrTthSNyFifdm5zsj1eueQ p2WzJmFJIdqvFjyNdsPIK8i 3RuZl13 Q18cZVpsNCVuREMxMSWcLGX duEhwkc5rvA2qLi1+PC9jb2 ndrb36cX29sHK+UNCtFYP1h WxlPSdw EJUcvB0bPTfhXtQ7YLYyInW jlD60zMBtOHepXt3ecOjuiD njJG0qZYUofoecu940PaEaw 2xkIDEw aEUvJKlmGAE2T37xy4X7XJT vEZMyNCM8wPC3jQ5yfFptnn ogbGVmdDsgdmVydGljYWwtY UruT964 IHRvcDsnPlBhdGllbnQgTmF sUQk0P4LfJec6ENXbfOxsTX 9oyOOpKFyeUf5etUnytNsaJ K0pHBHl kikkr723XuZtr8blCLFoxBR jSTuhHYN4F17bb5I1MDHhFH QlSUB9eLO2vQ4zjYzecrqyg GVmdDsg raKugIeyFOpoPMnwC309LVS kzZmtRmYwwsAkGDDqiPE8ID 91GH66mSJiu6J0xCY4I8FbG GRpbmct cemlqNR0IJJvGYDcnJ67Na3 whAjiWv6gCOBfTIO2TGGztS MaC8AmjI2xJcGnLEPxWRDxW 3RleHQt LUomY902ZJysRvZ8OOUjhvC oZ5RrTSRfxWwdWrG5j9C7Pm 7PZ1K9UG27BW12uRDuc9C3e AA2K7Hm NBAkipwiulltxFK0AMSrNOE rwG73Av4iaZwbFi5uXDDuET Z1INCkcEWtH4PuiW2uFfUhB DAwMDAw N8UreTYqMQwgR006HLjfVuX 9GFZdtaPlE5PuPFDowBatTc S5h0I2Bn6FNKl2MW15QT65m LNyx3A6 tYF3A8RkKPCmegnkgpgmgTC 3DCPqZLOxyT07Gm1yhDjhKc 5cFJSvAFZ9OKOyuHIuN2Gqm E7aMoNi DKJqWRKcP5OypGAdXCteU92 5PWbzVpG7VZRrfkAnT5NkKY LrqUdjZsK9b6U7Fl6BOWLmO A81QOQ6 zQU0XC01TM61G2OmShivcWU ibGU+PHRhYmxlIHdpZHRoPS gyBVPnMzRwyZafUM4ySj8oQ GVyLWNv wPaivHAmWnRkr8lvGQJiGMv iOP1fgTklA1WpzQA6QHCcx0 r2Gq23F40dY5GhdLE+PGNvb QY5wZT2 gG0uEaGbPoI1UCgpH310KnR jaYRlJchgy0ulr8zefPi3Ui W4CRHhwcGwlZdsPYK9s5YpA r48S29x IHdpZHRoPSIxNSUiIHZhbGl ljy4llP4uOi8+BSHysRY3zX B6yM4jOhTnOwP3OMuxR341A nRvcCIv Upczf0rip0nwkNw9FmWwZVU jcqKtsMvwPDS3f5OvRs55Q4 TllSohw7FwLcx6tb14jZHcw 3Z4oAY2 L8CnVEBclqyawSNmxAukZI8 kMINnhtaiFYAymN5kEXAbO9 w1FoGtMwR6WDuuF1BalcP9Q DEwcHQg WScdLUQ1K72hl4I0FSTcHGT nUAE8vYY0zU6chCrzmwaigQ VmdDsgdmVydGljYWwtYWxpZ 246IHRv lLgdENEeoU4rDTIqmQAkyBk gBS2wSFSfpkpvGxaQEYxVXS yOIatfHEYTQG98D8ZaPzk2Q CBzdHls TK3phLDbYZdkQr1vlVudnMl dOS1cTRIkmkgvANKtfT6vCG QigDScoVmkMQ2aLFQlsxzku 250OiAx WNV2UKCliFIoD7IulR9gGbT aJEAhNHKeR3HudJLwJGadT7 88YKdsFqH7GRDrsqSqD6AsZ WFsaWdu SvI4x8U9Wn0sGO6vKM4vRFk dJR28SG63iZSoh6L3bJQ8T6 LcYVLqqubcartpsJH0GEOlG DUwaW47 iXHwOJsqLp9my1W9w521DCT zZFNnvK04Yw2zmEruURSjjL HLiI2rwgytf6rvuojuNhXeP DAwMDt0 PJo5NVYyqTqcMzXxNTC9RkB 8YSZ4lQOgkB4reOcoyilknO 9wOyc+NpXyOEPelgH1E1FcI zh9CKTe tJrbSR4alMIiLEejZf4asIr npAmsZS0aWVKmsjjoJKOxlK 0sLAAlwYPvcIthZQ9iBHDin nzmv189 UyKwRXL0KSRzoKIgH6XuuT4 fQfIuDNIgIVOmV0VpgUWiLR luA708VFslCpH8UMHfokAmH 2FsLWFs qHleNeZ7n9H0Jl4KKT3yfMH 5C7OiNzf6PHEetLjmYO1kjA ByFCazKv7luFqtrGjiIE2xC TBpbjtw NQSpyB3mFNDopCEmcFaeTC7 iEAMqnjtro827RaEtVOD7CZ GngJEqX7ZnnL9dMzXrCYRxJ BWvJ5Oj gMLsNTryK535IFfqIhP5MUO qthZtS5KsNZCtfUqoBwM5k3 T3Vr7YtOTzA5KvE8c1Z8BcT jwvdHI+ ON13VZQwUJ40fXLswNMwp9g daVo8OcZqSOWdXNL5lZxvMI tmm9WjSMRbT48qvOUvh8X6E GNvbGxh gWHjMjDnkCX9yG9xNJdvumf pv1plcvirWktma5zfbg21rP 32L89kGXndBBSvIQNjJMAgJ HZhbGln iq8tpH0fVs2+OUXygJY5zPR 0hV2nLvAdZtC9BWszX693Om YjvABvOmnzr5dau8gtwBm5G jIwJSIg gwYteMknHYJ1w2AeWk75L05 sIHdpZHRoPSIyMCUiIHZhbG gutr1fgX6sVp0+DV1lj8pia g39qE97 dHI+IHKaDRG7vAgvKAbxPHJ cbS5gYJgjKzN1UHMxUsEuaN 92uKIzSGjjHe9uyWybnQirV O7bDXAw phcfc002HoIxh7qyBRVgbIH dWKwkFFX5L41ho8G1ROKjFX TcFJT4xUC1qX5ubRvwxwuot GVmdDsg dtUzwBlbBLjsHJikU990KKA ikDyoWlZxcTCfK1jjnvARGE 1lOjwvdGQ+SEAfQCA5dWjyI SdwYWRk xM2yEVIjJ5u5NxCvIaJ3KXj tD3LrvxS7CDPomIXrEYLgsZ RFjG4nxmnae6qctbodOmRnM DAwMDt0 XWy2GPAyxNnmZpJmCNW5TgQ 2PNH4dLBpqJ2sfIiewvzplE 9wOyc+RklOOjwvdGQ+PHRkI YU1rMxh TPsxTIMpnX2hMNLiH7l5YgL vIoM5LYmxG9NvvuV7UEDotN EqJYVpsAOOmB6xhynlm2hbi jogIzAw POYyKAn2GFn5XBIbtHgtGlG qPBG8RdM0RXN4tYYlnB9koH nqiksgnI9bNdx+TVJOOjwvd GQ+PHRk YTE5jYvpAOshENNgnI6bXGO yO2t2EmOjPwB4HAuzL5Nvrd L1UUDsoRXcZKGwpICAtI7ej zxvw3ie gknxSjAiZXEhBHa5LDf6XGA yhRgnPhFdEKK8VgD5OCN5qW XvwH8kiRgdixupgP0hGik+U DW7AWU6 KW68PE59N1PgYelncBTzvMV +PHRhYmxlIHdpZHRoPScxMD LwLwKujZfkZT4rIs0lRUXcB WNvbGxh cHNl (more content not included)... Normal [facility] Discharge Instructionson Discharge Instructions [id number] CD:127 Normal [facility] ED Clinical Summaryon 2021 ED Clinical Summary [address] [address] ED Clinical Summary Person Information Name: JESSEE ALMODOVAR/[facility] Age: 32 Years : 1990 Sex: Female Language: St Helenian PCP: Marital Status: Phone: [phone] Visit Id: Visit Reason: Foot pain-swelling; HURT [...] 02/23/2022 11:07:01 02/23/2022 11:07:01 ADDRESS: [place] [id number] PHYS DOC NOTES: MEDICAL INFORMATION: Prescriptions Given: PATIENT EDUCATION INFORMATION: Instructions: Foot Sprain; How to Use Cold Therapy, Toyz-mu-Idjf; Elastic Bandage and RICE Therapy Follow up: With: Address: When: CHELSEA EFRA [facility], [address] [place] [address] [place] ([employer] In 3 days 02/26/2022 Comments: Follow-up with your primary care provider in 3 to 5 days. If symptoms worsen, do not improve, or new symptoms arise please report back to emergency department for further evaluation. DIAGNOSIS: Sprain of left foot Normal [facility] ED Note-Physicianon 02-24-20 ED Note-Physician Basic [...] Information CHELSEA KRAUS In 3 days 02/26/2022 [facility] [address] [place] [address] Business (1) Additional Instructions: Follow-up with your primary care provider in 3 to 5 days. If symptoms worsen, do not improve, or new symptoms arise please report back to emergency department for further evaluation. Patient Education Foot Sprain How to Use Cold Therapy, Bwjl-sm-Yyxs Elastic Bandage and RICE Therapy Attestation Patient seen and evaluated by the physician assistant federal public defender. Attending physician was present in the emergency department and supervised care. This visit was performed by both the physician and an APC. I performed all aspects of the MDM as documented. This report was transcribed using voice recognition software. Every effort was made to ensure accuracy, however, inadvertently computerized engineering executive mistakes may be present. Appropriate healthcare PPE [...] medications Ho (more content not included)... Normal [facility] Comment on above: Result Comment: Elec [...] This may take several hours. ? Take eocz-ghy-yfduiln and prescription medicines only as told by [...] is no (more content not included)... Normal [facility] ED Patient Summaryon 022 ED Patient Summary (Inserted Image. Kelsi ble to display) [address] [address] Patient Discharge Instructions Person Information Name: JESSEE ALMODOVAR Age: 32 Years Arrival Date: 02/23/2022 09:05:13 Discharge Diagnosis: Sprain of left foot Primary Care Physician: Provider Information Primary Provider: Chayo Anne DO [employer] Analyst:None The exam and treatment you received in the Emergency Department were for an urgent problem and are not intended as complete care. It is important that you follow up with a doctor, nurse practitioner, or physician?s assistant federal public defender for ongoing care. If your symptoms become worse or you do not improve as expected and you are unable to reach your usual health care provider, you should return to the Emergency Department. We are available 24 hours a day. JESSEE ALMODOVAR has been given the following list of patient education materials, prescriptions and follow-up instructions: Follow-up Instructions: With: Address: When: [facility], [address] [place], [place] [id number] Business (1) In 3 days 02/26/2022 Comments: [...] Foot Sprain; How to Use Cold Therapy, Yczo-tq-Cils; Elastic Bandage and RICE Therapy A MESSAGE TO ALL PATIENTS REGARDING OPIOIDS PRESCRIPTION OPIOIDS: WHAT YOU NEED TO KNOW Prescription opioids can be used to help relieve zlsqgbpa-mq-gpdjwj pain and are often prescribed following a [...] www.cdc.gov/ (more content not included)... Normal [facility] XR Foot 3+ Views Lefton [...] DO Transcribed by: SUZY Technologist: TIM [facility] XR Pelvis and Hip - right [...] any questions regarding this interpretation, please call [phone]. If you are unable to reach us at the number above, please feel free to contact [facility] eRadiology at [phone]. DIVISION OF RADIOLOGY * * *Final Report* [...] joint appears preserved. DIVISION OF RADIOLOGY [facility] * * *Final [...] any questions regarding this interpretation, please call [phone]. If you are unable to reach us at the number above, please feel free to contact [facility]Radiology at [phone]. [facility] XR Pelvis and Hip - right AP and Lateral frogOrdered By: Ccf Provider on 02-19-2022 [facility] XR Pelvis and Hip - right AP and Lateral frogon 02-18-2022 Radiology Study observation (narrative) [facility] CT ABD/PELV W CONon 02-12-20 [...] by: EMELIA STEWART Date: 2022-02-11 07:23 Normal [facility] US PELVIS AND TRANSVAGon US PELVIS AND [...] by: JENNIFER HARTLEY Date: 2022-01-08 14:12 Normal [facility] UA DIP, URINE (POC)on 2021 BILIRUBIN UA (POCT) Negative Negative [facility] CLARITY UA (POCT) Cloudy [facility] COLOR UA (POCT) Yellow [facility] GLUCOSE UA (POCT) Negative Negative mg/dL [facility] HEMOGLOBIN/BLOOD UA (POCT) Trace-intact Abnormal Negative [facility] KETONE UA (POCT) Negative Negative mg/dL [facility] LEUKOCYTES UA (POCT) Small Abnormal Negative [facility] NITRITE UA (POCT) Negative Negative [facility] PH UA (POCT) 6.5 4.5 - 8.0 [facility] Protein Ql (U) Negative Negative mg/dL [facility] SPECIFIC GRAVITY UA (POCT) 1.015 1.005 - 1.030 [facility] UROBILINOGEN UA (POCT) 0.2 E.U./dL Normal E.U./dL [facility] Large Joint Arthro/Inj: R gr eater trochanteric bursa [facility] Vital Signs Date Time Vital Sign Value Performing Clinician Facility 02-18-2024 10:23-040 Body mass index (BMI) [Ratio] 30.42 kg/m2 Franny COSTELLO Work Phone: [facility] 02-18-2024 10:23-040 Body weight 103.15 kg Franny COSTELLO Work Phone: [facility] 02-18-2024 10:23-040 Diastolic blood pressure 68 mm[Hg] Franny COSTELLO Work Phone: [facility] 02-18-2024 10:23-0400 Systolic blood pressure 112 mm[Hg] Franny COSTELLO Work Phone: [facility] 02-10-2024 13:39-0400 Body mass index (BMI) [Ratio] 29.83 kg/m2 Guillaume Pedro DO Work Phone: [facility] 02-10-2024 13:39-0400 Body weight 101.15 kg Guillaume Pedro DO Work Phone: [facility] 02-10-2024 13:39-0400 Diastolic blood pressure 70 mm[Hg] Guillaume Pedro DO Work Phone: [facility] 02-10-2024 13:39-0400 Systolic blood pressure 120 mm[Hg] Guillaume Pedro DO Work Phone: [facility] 01-27-2024 10:17-0400 Body mass index (BMI) [Ratio] 29 kg/m2 Franny Madan PA Work Phone: [facility] 01-27-2024 10:17-0400 Body weight 98.34 kg Franny Madan PA Work Phone: [facility] 01-27-2024 10:17-0400 Diastolic blood pressure 60 mm[Hg] Franny Cohoctah PA Work Phone: [facility] 01-27-2024 10:17-0400 Systolic blood pressure 110 mm[Hg] Franny Madan PA Work Phone: [facility] 02-25-2023 13:16-0500 Body height 185.4 cm Rosas Mckinney MD Work Phone: [facility] 02-25-2023 13:16-0500 Body weight 76.67 kg Rosas Mckinney MD Work Phone: [facility] 07-10-2022 15:15-0400 Body height 181.61 cm Imad Asaad Other [employer] Other 07-10-2022 15:15-0400 Body mass index (BMI) [Ratio] 24.48 kg/m2 Imad Asaad Other [employer] Other 07-10-2022 15:15-0400 Body weight 80.74 kg Imad Asaad Other [employer] Other 07-10-2022 15:15-0400 Diastolic blood pressure 78 mm[Hg] Imad Asaad Other [employer] [facility] [employer] Other 07-10-2022 15:15-0400 Systolic blood pressure 130 mm[Hg] Imad Asaad Other [facility] [employer] Other 05-26-2022 09:29-0500 Blood Pressure Location Roxanne MOSLEY [facility] 05-26-2022 09:29-0500 Body temperature 98.42 [degF] Roxanne MOSLEY [facility] 05-26-2022 09:29-0500 Diastolic blood pressure 78 mm[Hg] Roxanne MOSLEY [facility] 05-26-2022 09:29-0500 Heart rate 115 /min Roxanne DIMITRI [facility] 05-26-2022 09:29-0500 SaO2% (BldA) [Mass fraction] 98 % Roxanne MOSLEY [facility] Care 05-26-2022 09:29-0500 Systolic blood pressure 120 mm[Hg] Roxanne MOSLEY [facility] 02-23-2022 09:10-0400 Body temperature 98.42 [degF] Chayo Anne [facility] 02-23-2022 09:10-0400 Diastolic blood pressure 67 mm[Hg] Chayo Anne [facility] 02-23-2022 09:10-0400 Heart rate 88 /min Chayo Anne [facility] 02-23-2022 09:10-0400 Respiratory rate 18 /min Chayo Anne [facility] 02-23-2022 09:10-0400 SaO2% (BldA) [Mass fraction] 98 % Chayo Anne [facility] 02-23-2022 09:10-0400 Systolic blood pressure 141 mm[Hg] Chayo Anne [facility] Encounters Encounter Date Encounter Type Care [...] Start: 02-05-2024 End: 02-05-2024 ambulatory ANUPAMA BROWN Facility:[facility] Start: 01-27-2024 End: 01-27-2024 Bamboo [...] 01-19-2024 End: 01-19-2024 ambulatory ANUPAMA SANTOS KEVIN Facility:[facility] Start: 01-13-2024 End: 01-13-2024 ambulatory GUILLAUME PEDRO Not Available Start: 01-05-2024 End: 01-05-2024 ambulatory ANUPAMA SANTOS KEVIN Facility:[facility] Start: 12-30-2023 End: 12-30-2023 ambulatory GUILLAUME PEDRO Not Available Start: 12-16-2023 End: 12-16-2023 ambulatory GUILLAUME PEDRO Not Available Start: 12-08-2023 End: 12-08-2023 ambulatory GUILLAUME R PEDRO Facility:[facility] Start: 11-20-2023 End: 11-20-2023 ambulatory FRANNY HAGER Facility:[facility] Start: 11-18-2023 End: 11-18-2023 ambulatory FRANNY HAGER Not Available Start: 10-22-2023 End: 10-22-2023 ambulatory GUILLAUME R PEDRO Facility:[facility] Start: 10-21-2023 End: 10-21-2023 ambulatory GUILLAUME PEDRO Not Available Start: 10-16-2023 End: 10-16-[address] [facility] Start: 09-24-2023 End: 09-24-2023 ambulatory FRANNY HAGER Not Available Start: 08-26-2023 End: 08-26-2023 ambulatory GUILLAUME VELASQUEZO Not Available Start: 08-08-2023 End: 08-08-2023 ambulatory ANUPAMA BROWN Facility:[facility] Start: 07-24-2023 End: 07-24-2023 ambulatory GUILLAUMECodey VELASQUEZO Not Available Start: 06-04-2023 End: 06-04-2023 ambulatory ASIF SCHAEFER [facility] Start: 06-02-2023 End: 06-02-2023 Phys/qhp telephone evaluation 5-10 min Guillaume Pedro DO Work Phone: [facility] Comment on above: Irregular menses (Pr imary Dx) Start: 06-02-2023 End: 06-02-2023 ambulatory GUILLAUME PEDRO Not Available Start: 05-28-2023 Chart abstracting Guillaumecodey Velasquezo DO Work Phone: [facility] Start: 05-16-2023 End: 05-16-2023 ambulatory ANUPAMA BROWN Facility:[facility] Start: 05-05-2023 End: 05-05-2023 ambulatory ANUPAMA BROWN Facility:[facility] Start: 05-02-2023 End: 05-02-2023 ambulatory [facility] Start: 05-02-2023 End: 05-02-2023 Office outpatient visit 25 minutes Asif Schaefer HEAT ENGINEERING TEACHER-ASSET CARD CLERK Work Phone: [facility] Comment on above: Attention deficit hy peractivity disorder (ADHD), predominantly inattentive type (Primary Dx); Moderate episode of recurrent major depressive disorder (CMS-HCC); Generalized anxiety disorder Start: 03-04-2023 End: 03-04-2023 ambulatory GUILLAUME PEDRO Not Available Start: 02-25-2023 End: 02-25-2023 ambulatory ANUPAMA BROWN Facility:[facility] Start: 02-25-2023 End: 02-25-2023 Office outpatient visit 25 minutes Rosas Mckinney MD Work Phone: Orthopaedics Comment on above: Lytic bone lesion of femur (Primary Dx); Greater trochanteric bursitis of right hip; Chronic pain of right hip; Chronic low back pain, unspecified back pain laterality, unspecified whether sciatica present; Pain of right hip; Bone lesion Start: 02-20-2023 End: 02-20-2023 ambulatory ANUPAMA BROWN Facility:[facility] Start: 02-20-2023 End: 02-20-2023 Subsequent [...] 08-01-2022 Subsequent hospital visit by physician General hTi Bunch Work Phone: Radiology Comment on above: 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] Start: 07-10-2022 End: 07-10-2022 ambulatory Imad Asaad Other [facility] Other Start: 07-10-2022 Office outpatient ne w 45 minutes Imad Asaad [facility] Start: 05-26-2022 End: 05-27-2022 ambulatory Roxanne MOSLEY Facility:[facility] Start: 05-26-2022 End: 05-26-2022 Patient encounter procedure Roxanne MOSLEY [facility] Start: 05-08-2022 End: 05-08-2022 ambulatory PRAVIN FRANNY HAGER Facility:[facility] Start: 02-26-2022 End: 02-26-2022 Patient encounter procedure Rosas Mckinney MD Work Phone: Orthopaedics Comment on above: Lytic bone lesion of femur (Primary Dx) Start: 02-23-2022 End: 02-23-2022 Emergency department patient visit Chayo Anne Facility:[facility] Start: 02-23-2022 End: 02-23-2022 Emergency department patient visit Chayo Anne [facility] Start: 02-18-2022 End: 02-18-2022 Subsequent hospital [...] Dx) Start: 10-04-2021 Orders Only Macy Jones APRN.ASSET CARD CLERK Work Phone: Hematology/Oncology Comment on above: Acute [...] T SCR #### CC MAIN BLOOD BANK CLMN [id number] [address] [place] [address] [place] Start: 02-25-2023 Arthrocentesis aspir &/inj major jt/bursa w/o us Tiana Cronin PA-C Work Phone: Start: 02-20-2023 Radex hip unilateral with pelvis 2-3 views Roni Dumas MD Work Phone: Start: 08-08-2022 Adult depression scr eening assessment Asif Schaefer HEAT ENGINEERING TEACHER-ASSET CARD CLERK Work Phone: Start: 08-01-2022 Radex hip unilateral [...] Td Vaccines (4 - Td or Tdap) [facility] Start: 01-04-2030 Urine microalbumin profile DTa P,Tdap,Td Vaccine (4 - Td or Tdap) [facility] Start: 10-20-2028 Screening for malign ant neoplasm of cervix [facility] Start: 04-06-2024 End: 04-06-2024 ambulatory 04/06/2024 9:30 AM EST [facility] [address] [place] [id number] Franny Hager PA [address] [place], [place] [id number] [facility] Start: 03-10-2024 Tobacco Screening Tobacco Screening [facility] Start: 02-23-2024 Screening for malign ant neoplasm of cervix [facility] Start: 02-18-2024 End: 02-18-2024 Patient encounter procedure 02/18/2024 9:40 AM EDT Routine [facility] [address] [place] [id number] Franny Hager PA [address] [place], [place] [id number] [facility] Start: 02-10-2024 End: 02-09-2025 Strep B DNA probe, amplification Strep B DNA probe, amplification Lab Routine Third trimester Expected: 02/10/2024 (Approximate), Expires: 02/09/2025 [facility] Work Phone: Comment on above: Expected: 02/10/2024 (Approximate), Expires: 02/09/2025 Start: 02-10-2024 End: 02-10-2024 Patient encounter procedure 02/10/2024 1:00 PM EDT Routine [facility] [address] [place] [place] [address] Guillaume Vasquez DO [address] [place], [place] [id number] [facility] Start: 12-21-2023 Covid-19 Vaccine ( season) Covid-19 Vaccine ( season) [facility] Start: 12-21-2023 Covid-19 Vaccine ( season) Covid-19 Vaccine ( season) [facility] Start: 12-21-2023 Influenza vaccination Influenza Vacc ine (#1) [facility] Start: 08-09-2023 Adult BMI Screening Adult BMI Screen ing [facility] Start: 08-09-2023 Depression Screening Depression Scre ening [facility] Start: 05-29-2023 End: 05-29-2023 Patient encounter procedure 05/29/2023 8:10 AM EST Office Visit [facility] [address] [place] [phone] Guillaume Vasquez DO [address] [place] [address] Irregular menses [facility] Comment on above: Irregular menses Start: 12-20-2022 Covid-19 Vaccine ( season) Covid-19 Vaccine () [facility] Start: 12-20-2022 Influenza vaccination INFLUENZA (#1) [facility] Start: 11-15-2022 End: 01-15-2023 Comprehensive metabolic 2000 panel - Serum or Plasma [facility] Work Phone: Comment on above: Expected: 11/15/2022 , Expires: 01/15/2023 Start: 11-15-2022 End: 01-15-2023 Lipid 1996 panel - Serum or Plasma [facility] Work Phone: Comment on above: Expected: 11/15/2022 , Expires: 01/15/2023 Start: 11-15-2022 End: 01-15-2023 T4/FTI/T4U [facility] Work Phone: Comment on above: Expected: 11/15/2022 , Expires: 01/15/2023 Start: 11-15-2022 End: 01-15-2023 Thyrotropin [Units/volume] in Serum or Plasma [facility] Work Phone: Comment on above: Expected: 11/15/2022 , Expires: 01/15/2023 Start: 08-26-2022 End: 03-28-2023 XR HIP GENERAL 3V PELV/AP/LAT RIGHT XR HIP GENERAL 3V PELV/AP/LAT RIGHT Radiology Routine Lytic bone lesion of femur Expected: 08/26/2022, Expires: 03/28/2023 [facility] Work Phone: Comment on above: Expected: 08/26/2022 , Expires: 03/28/2023 Start: 08-09-2022 End: 10-09-2022 25-hydroxyvitamin D3 [Mass/volume] in Serum or Plasma [facility] Work Phone: Comment on above: Expected: 08/09/2022 , Expires: 10/09/2022 Start: 04-21-2022 DEPRESSION ASSESSMENT DEPRESSION ASS ESSMENT [facility] Start: 12-20-2021 Influenza vaccination INFLUENZA (#1) [facility] Start: 12-06-2021 End: 02-05-2022 Thyrotropin [Units/volume] in Serum or Plasma [facility] Work Phone: Comment on above: Expected: 12/06/2021 , Expires: 02/05/2022 Start: 12-06-2021 End: 02-05-2022 Thyroxine (T4) free [Mass/volume] in Serum or Plasma [facility] Work Phone: Comment on above: Expected: 12/06/2021 , Expires: 02/05/2022 Start: 12-06-2021 End: 02-05-2022 Triiodothyronine (T3) [Mass/volume] in Serum or Plasma [facility] Work Phone: Comment on above: Expected: 12/06/2021 , Expires: 02/05/2022 Start: 11-08-2021 End: 01-08-2022 Choriogonadotropin ( test) [Presence] in Urine [facility] Work Phone: Comment on above: Expected: 11/08/2021 , Expires: 01/08/2022 Start: 11-08-2021 End: 01-08-2022 URINALYSIS, REFLEX MICROSCOPIC [facility] Work Phone: Comment on above: Expected: 11/08/2021 , Expires: 01/08/2022 Start: 04-21-2021 DEPRESSION ASSESSMENT DEPRESSION ASS ESSMENT [facility] Start: 2021 HPV TESTING HPV TESTING [facility] Start: 10-13-2020 COVID-19 VACCINE (3 - Booster for Moderna series) COVID-19 VACCINE (3 - Booster for Moderna series) [facility] Start: 07-10-2020 COVID-19 VACCINE (3 - Booster for Moderna series) COVID-19 VACCINE (3 - Booster for Moderna series) [facility] Start: 07-10-2020 COVID-19 VACCINE (3 - Moderna series) COVID-19 VACCINE (3 - Moderna series) [facility] Start: 02-08-2012 PAP TESTING PAP TESTING [facility] Start: 02-08-2012 Screening for malign ant neoplasm of cervix [facility] Start: 2010 Urine microalbumin profile DTA P,TDAP,TD (1 - Tdap) [facility] Start: 2009 Anxiety Screening Anxiety Screening [facility] Start: 2009 Depression Screening Depression Scre ening [facility] Start: 2009 HEPATITIS C SCREENING HEPATITIS C SC REENING [facility] Start: 2009 HIV SCREENING HIV SCREENING [facility] Start: 2003 Adult depression scr eening assessment DEPRESSION SCREENING [facility] Start: 1997 Pneumococcal vaccination [facility] Start: 1991 HEPATITIS B (1 of 3 - 3-dose series) HEPATITIS B (1 of 3 - 3-dose series) [facility] Bacteria identified in Urine by Culture URINE CULTURE Microbiology Routine Pelvic pain 11/08/2021 11:36 AM EDT [facility] Work Phone: End: 06-02-2023 [...] lesion 1 Occurrences starting 02/25/2023 until 03/26/2024 [facility] Work Phone: Comment on above: 1 Occurrences starti ng 02/25/2023 until 03/26/2024 End: 03-18-2024 XR HIP GENERAL 3V PELV/AP/LAT RIGHT XR HIP GENERAL 3V PELV/AP/LAT RIGHT Radiology Routine Lytic bone lesion of femur 1 Occurrences starting 02/17/2023 until 03/18/2024 [facility] Work Phone: Comment on above: 1 Occurrences starti ng 02/17/2023 until 03/18/2024 [facility] Immunizations Immunization Date Immunization Notes Care Provider [facility] 01-28-2023 influenza virus vaccine, unspecified formulation Roni Dumas MD Work Phone: [facility] 02-14-2022 influenza virus vaccine, unspecified formulation Rosas Mckinney MD Work Phone: [facility] 01-18-2021 influenza virus vaccine, unspecified formulation Macy Jones APRN.CNP Work Phone: [facility] 03-01-2020 influenza, seasonal, injectable Imad Asaad Other [facility] Other 02-03-2016 influenza, injectable, quadrivalent, contains preservative Imad Asaad Other [facility] Other NEGATED: Highlighted row has not occurred!03-02-2019 influenza, seasonal, injectable Imad Asaad Other [employer] Other Payers Date Payer Category Payer Private Health Insurance [employer] [id number] 2018 Unknown [id number] 1991 Unknown [id number] 2.16.840.1.418216.3.579.2. 593 1991 Unknown [id number] 2.16.840.1.041941.3.579.2. 593 1991 Unknown [id number] 2.16.840.1.638718.3.579.2. 593 1991 Unknown [id number] 2.16.840.1.721306.3.579.2. 727 1991 Unknown [id number] 2.16.840.1.056660.3.579.2. 727 1991 Unknown [id number] 2.16.840.1.584323.3.579.2. 1286 1991 Unknown [id number] 2.16.840.1.794485.3.579.2. 1286 1991 Unknown [id number] 2.16.840.1.251530.3.579.2. 1286 1991 Unknown [id number] 2.16.840.1.712858.3.579.2. 1286 1991 Unknown [id number] 2.16.840.1.946926.3.579.2. 1259 1991 Unknown [id number] 2.16.840.1.612465.3.579.2. 9 1991 Unknown [id number] 2.16.840.1.607051.3.579.2. 9 1991 Unknown [id number] 2.16.840.1.213265.3.579.2. 9 1991 Unknown [id number] 2.16.840.1.023220.3.579.2. 9 1991 Unknown [id number] 2.16.840.1.468961.3.579.2. 9 1991 Unknown [id number] 2.16.840.1.419293.3.579.2. 9 1991 Unknown [id number] 2.16.840.1.770106.3.579.2. 9 1991 Unknown [id number] 2.16.840.1.793095.3.579.2. 9 1991 Unknown [id number] 2.16.840.1.475100.3.579.2. 9 1991 Unknown [id number] 2.16.840.1.174214.3.579.2. 9 1991 Unknown [id number] 2.16.840.1.389979.3.579.2. 9 1991 Unknown [id number] 2.16.840.1.297812.3.579.2. 1259 1959 Unknown [id number] Social History Date Type Detail Facility Tobacco smoking stat [facility] Tobacco smoking consumption unknown [facility] Work Phone: Start: 1990 Sex Assigned At Not on file [facility] Start: 10-29-2021 End: 02-26-2022 Exposure to SARS-CoV-2 (event) Not sure [facility] Start: 03-21-2013 End: 10-21-2023 Tobacco smoking status Ex-smoker (finding) [facility] Comment on above: quit 01/2013 Start: 02-26-2022 End: 10-21-2023 Sex Assigned At Female [facility] History of tobacco use Current smoker [facility] History of tobacco use Cigarette Smoker [facility] History of tobacco use Passive smoker [facility] Start: 02-11-2022 End: 10-21-2023 Tobacco use and exposure Smokeless tobacco non-user [facility] Start: 02-11-2022 End: 02-26-2022 Alcohol intake Current drinker of alcohol (finding) [facility] Tobacco smoking status Never [facility] Start: 02-26-2022 End: 10-21-2023 History of Social function [facility] Start: 02-25-2023 End: 05-28-2023 Tobacco smoking status NHIS Occasional tobacco smoker [facility] Start: 08-08-2022 Alcohol Comment on the weekends [facility] Start: 05-28-2023 Alcohol Comment caffeine: 2-3 cups per day coffee; soda [facility] Start: 01-13-2024 End: 02-18-2024 Alcoholic beverage intake Ex-drinker (finding) [facility] Start: 06-19-2023 [facility] Functional Status Date Assessment Result Facility 05-26-2022 Functional Status N/A [facility] 02-23-2022 Functional Status N/A [facility] Clinical Notes 08-20-2015 to 02-18-2024 PRAVIN [...] of: PRAVIN Dumont documented in this encounter [facility] 02-10-2024 History of Present illness Narrative Reason [...] nursing note reviewed. Exam conducted with a wool sacker present. Vitals: Estimated body mass index is [...] Guillaume Vasquez DO documented in this encounter [facility] 01-27-2024 History of Present illness Narrative Reason [...] nursing note reviewed. Exam conducted with a wool sacker present. Vitals: Estimated body mass index is [...] of: PRAVIN Dumont documented in this encounter [facility] 06-02-2023 History of Present illness Narrative Reason for Appointment: Patient ID: Jessee Almodovar is a 33 y.o. female who presents for No chief complaint on file. Patient presents today via telephone call for a telehealth appointment. Patients Phone #: [phone] (mobile) Current Medications: has a current medication [...] or as needed. Will consider referral to [facility] in future Documented by Guillaume Vasquez DO on behalf of: Guillaume Vasquez DO documented in this encounter [facility] 05-02-2023 Miscellaneous Notes [address] [facility] [address] Patient: Jessee Almodovar Date of : 1990 Encounter Date: 05/02/2023 History of Present Illness/Psychiatric Review of Symptoms/Medical Review of Systems: Video Visit via Real-time Synchronous Audiovisual Provider [facility] [address] [place] [address] Patient Location: patient's office in [place], [place] Video Visit Consent Statement: I discussed [...] that there are some limitations compared to [id number] evaluations. The patient consented to the presence of additional virtual and/or in-person participants. We elected to proceed. Jessee is a 33 y.o. female, established patient, and is logged on via [employer] for a follow-up video visit. HPI: Jessee reports she is feeling about the same since last visit. She was unable to tell the difference between taking the immediate release Adderall. She expresses frustrations with still feeling easily distractible. She has had a lot going on since the holidays. She enjoyed [place] and new year's with her immediate family. She traveled to [place] to see her parents, which went well. [...] Moderate episode of recurrent major depressive disorder ([facility]) Generalized anxiety disorder Medication Changes: yes [...] Leon 05/02/23 1746 documented in this encounter [facility] 05-02-2023 Progress note Formatting of t his note is different from the original. [address] [place] [facility] [id number] Patient: Jessee Almodovar Date of : 1990 Encounter Date: 05/02/2023 History of Present Illness/Psychiatric Review of Symptoms/Medical Review of Systems: Video Visit via Real-time Synchronous Audiovisual Provider Location: [facility] [address] [address] Patient Location: patient's office in [place], [place] Video Visit Consent Statement: I discussed [...] that there are some limitations compared to [id number] evaluations. The patient consented to the presence of additional virtual and/or in-person participants. We elected to proceed. Jessee is a 33 y.o. female, established patient, and is logged on via [employer] for a follow-up video visit. HPI: Jessee reports she is feeling about the same since last visit. She was unable to tell the difference between taking the immediate release Adderall. She expresses frustrations with still feeling easily distractible. She has had a lot going on since the holidays. She enjoyed [place] and new year's with her immediate family. She traveled to [place] to see her parents, which went well. [...] Moderate episode of recurrent major depressive disorder ([facility]) Generalized anxiety disorder Medication Changes: yes [...] CNP, PMHNP-. BARAK De Leon 05/02/23 1746 [facility] 02-25-2023 Instructions Tiana Cronin PA-C - 02/25/2023 1:56 PM EST Images from the original note were not included. MRI right hip Home exercises Continue with NSAIDS CSI right hip- may repeat in 3 months if needed documented in this encounter [facility] 02-25-2023 Note HNO ID: [id number] Author: Rosas Mckinney MD Service: ? Author [...] given from [facility] (more content not included)... [facility] 02-25-2023 History of Present illness Narrative [...] trochanteric bursa Informed Consent Consent Obtained: Verbal [place] Protocol A moment to CARE was completed. [...] 10:49 PM documented in this encounter [facility] 02-20-2023 History of Present illness [...] 8:45 AM documented in this encounter [facility] 02-20-2023 Note HNO ID: [id number] Author: Kathrine Smith RT(R) Service: ? Author [...] RT Francisco(R) February 20, 2023 8:45 AM [facility] 02-17-2023 Miscellaneous Notes Jourdan Dennise, My [...] Thanks, Td. documented in this encounter [facility] 08-01-2022 History of Present illness [...] 9:04 AM documented in this encounter [facility] 07-10-2022 Evaluation note Encounter Date Diagnosis Assessment Notes Jun, Constipation (ICD-10 - K59.00) Jun, Change in bowel habits (ICD-10 - R19.4) Jun, Diarrhea (ICD-10 - R19.7) Patient to start Align probiotic. Jun, Bloating (ICD-10 - R14.0) [facility] Other 02-05-2023 Hospital Discharge instructions Patient Education 05/26/2022 10:06:58 Strep Throat, Adult, Ijdo-at-Aeyc Strep Throat, Adult Strep throat is an [...] Follow these instructions at home: Medicines Take yipk-akc-hmzxmvc and prescription medicines only as told by [...] 09/23/2008 Document Revised: 06/25/2019 Document Reviewed: 06/25/2019 [employer] Patient Education 2020 [employer]. 05/26/2022 10:06:56 BMI for Adults BMI for [...] height. This can be done either in [place] or metric measurements. Note that charts are available to help you find your BMI quickly and easily without having to do these calculations yourself. To calculate your BMI in [place] measurements, your health care provider will: [...] medical problems. BMI can be measured using [place] measurements or metric measurements. 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 Patient does [...] being sent back to Roni Dumas via [employer] Underwater Photographer or Chart CC for [facility] Providers. Rosas Mckinney MD Tube Roller, Orthopaedic Surgery Division of Musculoskeletal Oncology [facility] Evaluation + Plan note Extracted from: Title:ED Note Author:Jose BALL, Mohan Daimond te:02/23/22 Sprain of left foot (S93.602 A: Unspecified sprain of left foot, initial encounter) Orders: Crutches Elastic Bandage Application XR Foot 3+ Views Left [facility]11-05-2022 Hospital Discharge instructions Patient Education 02/23/2022 [...] fully hardened. This may takeseveral hours. Take ljdq-djq-fiboxbv and prescription medicines only as told by [...] 09/27/2002 Document Revised: 04/11/2018 Document Reviewed: 04/11/2018 [employer] Patient Education 2020 [employer]. 02/23/2022 11:07:01 How to Use Cold Therapy, Mzyp-au-Ldee How to Use Cold Therapy Cold therapy, [...] 09/23/2008 Document Revised: 01/04/2019 Document Reviewed: 01/04/2019 [employer] Patient Education 2020 [employer]. 02/23/2022 11:07:01 Elastic Bandage and RICE Therapy [...] limityour activities and whether you should start learg-hv-lrcppl exercises for your injury. Ice Ice your [...] 09/27/2002 Document Revised: 12/26/2017 Document Reviewed: 12/26/2017 [employer] Patient Education 2020 [employer]. Follow Up Care 02/23/2022 09:05:48 With:CHELSEA KRAUS Address: [employer] [address] [place], [place] [id number] Business (1) When:02/26/2022 10:46:43 Comments:Follow-up with your primary care provider in 3 to 5 days. If symptoms worsen, do not improve, or new symptoms arise please report back to emergency department for further evaluation. [facility]10-31-2022 History of Present illness Narrative* Kathrine [...] 18, 2022 3:09 PM documented in [facility] encounter[facility] Nurse Note* Lillie Smith - 11/08/2021 11:25 AM EDT UA performed as ordered. Lillie Smith documented in this encounterOhio[facility]06-16-2022 History of Present illness Narrative* Macy Jones APRN.CNP - 10/04/2021 3:36 PM EDT Physical documented in this encounterOhio[facility]05-01-2016 History general Narrative - Reported* Type Description Date Medical History Bernardo's thyroiditis Medical History Post- depression 2019 Surgical History D & C d/t miscarriage 08/2015 Surgical History LEEP 2012 Hospitalization History child beModel Other Evaluation note* Diagnosis Acute bilateral low back pain with bilateral sciatica- Primary [facility] [place] [facility]* Diagnosis Pelvic pain- Primary [facility] [place] [facility]* Diagnosis Dysuria- Primary documented [facility] [place] [facility]* Diagnosis Dysuria- Primary documented [facility] [place] [facility]* Diagnosis Unspecified hypothyroidism- Primary [facility] [place] [facility]* Diagnosis Lytic bone lesion of femur- Primary [facility] [place] [facility]* Diagnosis Moderate episode of recurrent major depressive disorder (HCC)- Primary [facility] [place] [facility]* Diagnosis Unspecified hypothyroidism- Primary Essential hypertension, malignant Lipids blood increased Other and unspecified hyperlipidemia Vegans' anemia Other vitamin B12 deficiency anemia documented [facility] [place] [facility]* Diagnosis Lytic bone lesion of femur- Primary [facility] [place] [facility]* Diagnosis Lytic bone lesion of femur- Primary Greater trochanteric bursitis of right hip Enthesopathy of hip region Chronic pain of right hip Chronic low back pain, unspecified back pain laterality, unspecified whether sciatica present Pain of right hip Bone lesion Disorder of bone and cartilage, unspecified [facility] [place] [facility]* Diagnosis Attention deficit hyperactivity disorder (ADHD), predominantly 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 (CMS-HCC) Generalized anxiety disorder [facility]* Diagnosis Irregular menses- Primary Irregular menstrual cycle [facility] Diagnosis Lytic bone lesion of femur documented [facility] [place] [facility]* Diagnosis Lytic bone lesion of femur [facility] this [facility] [place] [facility]* Diagnosis Lytic bone lesion of femur documented [facility] this [facility] [place] [facility]* Diagnosis 33 weeks gestation of Third trimester state, incidental Low iron Unspecified iron deficiency anemia Nonintractable headache, unspecified chronicity pattern, unspecified headache type Constipation, unspecified constipation type documented in this encounter [facility]* Diagnosis 35 weeks gestation of Third trimester state, incidental documented in this encounter [facility]* Diagnosis Third trimester state, incidental 37 weeks gestation of documented in this encounter [facility] HealthcareHospital course Narrative No data available for this section [facility] Attachments The following attachments cannot be sent through Care Everywhere. * Methylphenidate, ADULT ([place]) [facility] No data available for this section [facility]ative[facility] Diagnostic Procedure Only (Routine) - Pending Review Specialty Diagnoses / Procedures Referred By Bry pittman Referred To Contact XR IMAGING Diagnoses Lytic bone lesion of femur Procedures XR HIP GENERAL 3V PELV/AP/LAT RIGHT RADEX HIP UNILATERAL WITH PELVIS 2-3 VIEWS Rosas Mckinney MD [address] [place] [address] Xr Imaging Referral ID Status Reason Start Date Expiration Date Visits Requested Visits Authorized [id number] Pending Review Auto-Generat ed Referral 08/26/2022 03/28/2023 1 1 [facility] for referral (narrative)* Diagnostic Procedure Only (Routine) - Pending Review Specialty Diagnoses / Procedures Referred By Bry t Referred To Contact XR IMAGING Diagnoses Lytic bone lesion of femur Procedures XR HIP GENERAL 3V PELV/AP/LAT RIGHT RADEX HIP UNILATERAL WITH PELVIS 2-3 VIEWS Tiana Cronin PA-C [address] [place] [id number] Xr Imaging [place] [address] Referral ID Status Reason Start Date Expiration Date Visits Requested Visits Authorized [id number] Pending Review Auto-Generat ed Referral 03/18/2024 1 1 [facility] for referral (narrative)* Diagnostic Procedure Only (Routine) - Closed Specialty Diagnoses / Procedures Referred By Contac t Referred To Contact XR IMAGING Diagnoses Lytic bone lesion of femur Procedures XR HIP GENERAL 3V PELV/AP/LAT RIGHT RADEX HIP UNILATERAL WITH PELVIS 2-3 VIEWS Roni Dumas MD [address] [place] [address] [place] [address] Referral ID Status Reason Start Date Expiration Date V isits Requested Visits Authorized [id number] Closed Auto-Generate d Referral 02/17/2023 03/18/2024 1 1 [facility] for referral (narrative)* Diagnostic Procedure Only (Routine) - Closed Specialty Diagnoses / Procedures Referred By Contac t Referred To Contact XR IMAGING Diagnoses Lytic bone lesion of femur Procedures XR HIP GENERAL 3V PELV/AP/LAT RIGHT RADEX HIP UNILATERAL WITH PELVIS 2-3 VIEWS Rosas Mckinney MD [address] [place] [address] [place] [address] Referral ID Status Reason Start Date Expiration Date V isits Requested Visits Authorized [id number] Closed Auto-Generate d Referral 08/26/2022 03/28/2023 1 1 [facility] for referral (narrative)* Diagnostic Procedure Only (Routine) - Closed Specialty Diagnoses / Procedures Referred By Contac t Referred To Contact XR IMAGING Diagnoses Lytic bone lesion of femur Procedures XR HIP GENERAL 3V PELV/AP/LAT RIGHT RADEX HIP UNILATERAL WITH PELVIS 2-3 VIEWS Roni Dumas MD [address] [place] [address] [place] [address] Referral ID Status Reason Start Date Expiration Date V isits Requested Visits Authorized [id number] Closed Auto-Generate d Referral 02/18/2022 03/20/2023 1 1 [facility] Reason for Referral Specialty Diagnoses / Procedures Referred By Contac t Referred To Contact [facility] Diagnoses Acute bilateral low back pain with bilateral sciatica Procedures CONSULT TO PHYSICAL THERAPY PHYSICAL THERAPY EVALUATION HIGH COMPLEX 45 MINS Macy Jones, HEAT ENGINEERING TEACHER.ASSET CARD CLERK [address] [place] [address] [facility] [address] [place] [address] Referral ID Status Reason Start Date Expiration Date Visits Requested Visits Authorized [id number] Pending Review Auto-Generat ed Referral 10/04/2021 10/04/2022 1 1 Specialty Diagnoses / Procedures Referred By Contac t Referred To Contact MR IMAGING Diagnoses Greater trochanteric bursitis of right hip Chronic pain of right hip Pain of right hip Bone lesion Procedures MRI HIP WO IVCON RIGHT MRI ANY JT LOWER EXTREM W/O CONTRAST MATRL Tiana Cronin, PAYamel [address] [place] [address] [place] [address] Referral ID Status Reason Start Date Expiration Date Visits Requested Visits Authorized [id number] Authorized Auto-Generat ed Referral 02/25/2023 03/26/2024 1 [...] prosecute any alcohol or drug abuse patient.[facility] HospitalIn the event this information is protected by the Federal Confidentiality of Alcohol and Drug Abuse Patient Records regulations: The Federal rules restrict any use of the information to criminally investigate or prosecute any alcohol or drug abuse patient.[facility] HospitalIn the event this information is protected by the Federal Confidentiality of Alcohol and Drug Abuse Patient Records regulations: The Federal rules restrict any use of the information to criminally investigate or prosecute any alcohol or drug abuse patient.[facility] HospitalIn the event this information is protected by the Federal Confidentiality of Alcohol and Drug Abuse Patient Records regulations: The Federal rules restrict any use of the information to criminally investigate or prosecute any alcohol or drug abuse patient.[facility] HospitalIn the event this information is protected by the Federal Confidentiality of Alcohol and Drug Abuse Patient Records regulations: The Federal rules restrict any use of the information to criminally investigate or prosecute any alcohol or drug abuse patient.[facility] HospitalIn the event this information is protected by the Federal Confidentiality of Alcohol and Drug Abuse Patient Records regulations: The Federal rules restrict any use of the information to criminally investigate or prosecute any alcohol or drug abuse patient.[facility] HospitalIn the event this information is protected by the Federal Confidentiality of Alcohol and Drug Abuse Patient Records regulations: The Federal rules restrict any use of the information to criminally investigate or prosecute any alcohol or drug abuse patient.[facility] HospitalIn the event this information is protected by the Federal Confidentiality of Alcohol and Drug Abuse Patient Records regulations: The Federal rules restrict any use of the information to criminally investigate or prosecute any alcohol or drug abuse patient.[facility] HospitalIn the event this information is protected by the Federal Confidentiality of Alcohol and Drug Abuse Patient Records regulations: The Federal rules restrict any use of the information to criminally investigate or prosecute any alcohol or drug abuse patient.[facility] HospitalIn the event this information is protected by the Federal Confidentiality of Alcohol and Drug Abuse Patient Records regulations: The Federal rules restrict any use of the information to criminally investigate or prosecute any alcohol or drug abuse patient.[facility] HospitalIn the event this information is protected by the Federal Confidentiality of Alcohol and Drug Abuse Patient Records regulations: The Federal rules restrict any use of the information to criminally investigate or prosecute any alcohol or drug abuse patient.[facility] HospitalIn the event this information is protected by the Federal Confidentiality of Alcohol and Drug Abuse Patient Records regulations: The Federal rules restrict any use of the information to criminally investigate or prosecute any alcohol or drug abuse patient.[facility] HospitalIn the event this information is protected by the Federal Confidentiality of Alcohol and Drug Abuse Patient Records regulations: The Federal rules restrict any use of the information to criminally investigate or prosecute any alcohol or drug abuse patient.[facility] Patient Care team informatio n (unrecognized section and content) Etl Manager Relationship Specialty Start Date End Date Anupama Brown DO [address] [place] [address] PCP - General Family Medicine 07/25/22 Emile Mesa MD [address] [address] Gastroenterology 07/25/22 Guillaume Vasquez, DO [address] [place] [address] SYSTEMS CONSULTANT 07/25/22 Etl Manager Relationship Specialty Start Date End Date Anupama Brwon DO [address] [place] [address] PCP - General Family Medicine 07/25/22 Emile Mesa MD [address] [place] [address] Gastroenterology 07/25/22 Guillaume Vasquez DO [address] [place] [address] SYSTEMS CONSULTANT 07/25/22 Etl Manager Relationship Specialty Start Date End Date Anupama Brown, [address] [place] [address] PCP - General Family Medicine 07/25/22 Emile Mesa MD [address] [address] Gastroenterology 07/25/22 Guillaume Vasquez DO [address] [place] [address] [place] [address] SYSTEMS CONSULTANT 07/25/22 Etl Manager Relationship Specialty Start Date End Date Anpuama Brown DO [address] [place] [address] PCP - General Family Medicine 07/25/22 Emile Mesa MD [address] [place] [address] Gastroenterology 07/25/22 Guillaume Vasquez DO [address] [place] [address] [place] [address] SYSTEMS CONSULTANT 07/25/22 Etl Manager Relationship Specialty Start Date End Date Chelsea Kraus DO [address] [facility] [address] [place] [address] PCP - General Family Medicine 07/02/19 Etl Manager Relationship Specialty Start Date End Date Anupama Brown MD [address] [place] [phone] PCP - General Family Medicine 03/04/23 Etl Manager Relationship Specialty Start Date End Date Anupama Brown MD [address] [place] [phone] PCP - General Family Medicine 03/04/23 Etl Manager Relationship Specialty Start Date End Date Anupama Brown DO [address] [place], [place] [phone] PCP - General Family Medicine 07/25/22 Emile Mesa MD [address] [place] [address] [place] [address] Gastroenterology 07/25/22 Guillaume Vasquez DO [address] [place] [address] [place] [address] Tool Dresser 07/25/22 Etl Manager Relationship Specialty Start Date End Date Anupama Brown DO [address] [place] [address] PCP - General Family Medicine 07/25/22 Emile Mesa MD [address] [place] [address] [address] [place] [address] Gastroenterology 07/25/22 Guillaume Vasquez DO [address] [place] [address] [place] [address] Tool Dresser 07/25/22 Etl Manager Relationship Specialty Start Date End Date Anupama Brown MD [address] [place] [phone] PCP - General Family Medicine 03/04/23 Etl Manager Relationship Specialty Start Date End Date Anupama Brown MD [address] [place] [phone] PCP - General Family Medicine 03/04/23 Etl Manager Relationship Specialty Start Date End Date Anupama Brown MD [address] [place] [phone] PCP - General Family Medicine 03/04/23 Etl Manager Relationship Specialty Start Date End Date Anupama Brown MD [address] [place] [phone] PCP - General Family Medicine 03/04/23 Reason for Visit (unrecogniz ed section and content) Reason Comments New Pain Tumor/Mass Specialty Diagnoses / Procedures Referred By Contsteffen t Referred To Contact Orthopedics Diagnoses Lytic bone lesion of femur Procedures CONSULT TO ORTHOPAEDICS OFFICE/OUTPATIENT NEW HIGH MDM 60-74 MINUTES Roni Dumas MD [address] [place] [address] [place] [address] Referral ID Status Reason Start Date Expiration Date V isits Requested Visits Authorized [id number] Closed PCP Requested Referral 02/18/2022 02/18/2023 1 1 Reason Comments New Pain Reason Comments Radio Gen RMP Specialty Diagnoses / Procedures Referred By Contac t Referred To Contact XR IMAGING Diagnoses Lytic bone lesion of femur Procedures XR HIP GENERAL 3V PELV/AP/LAT RIGHT RADEX HIP UNILATERAL WITH PELVIS 2-3 VIEWS Roni Dumas MD [address] [place] [place] [address] [place] [address] Referral ID Status Reason Start Date Expiration Date V isits Requested Visits Authorized [id number] Closed Auto-Generate d Referral 02/17/2023 03/18/2024 1 1 Specialty Diagnoses / Procedures Referred By Contac t Referred To Contact XR IMAGING Diagnoses Lytic bone lesion of femur Procedures XR HIP GENERAL 3V PELV/AP/LAT RIGHT RADEX HIP UNILATERAL WITH PELVIS 2-3 VIEWS Rosas Mckinney MD [address] [place] [address] [place] [address] Referral ID Status Reason Start Date Expiration Date V isits Requested Visits Authorized [id number] Closed Auto-Generate d Referral 08/26/2022 03/28/2023 1 1 Referral ID Status Reason Start Date Expiration Date V isits Requested Visits Authorized [id number] Closed Auto-Generate d Referral 02/18/2022 03/20/2023 1 1 Reason Comments Routine Visit INFORMATION SOURCE (unrecogn ized section and content) DATE CREATED AUTHOR 05/08/2022 [facility] DATE CREATED AUTHOR AUTHOR'S ORGANIZ ATION 05/26/2022 [facility] DATE CREATED AUTHOR AUTHOR'S ORGANIZ ATION 05/04/2023 [facility] DATE CREATED AUTHOR AUTHOR'S ORGANIZ ATION 06/06/2023 [facility] DATE CREATED AUTHOR AUTHOR'S ORGANIZ ATION 10/17/2023 [facility] DATE CREATED AUTHOR AUTHOR'S ORGANIZ ATION 2024 [facility] DATE CREATED AUTHOR AUTHOR'S ORGANIZ ATION 02/20/2024 [facility] FOR RECORDS PERTAINING TO PATIENTS WHO [...] BE BASED ON THE PRIMARY CLINICAL RECORDS. [employer] provides no warranty or guarantee of the accuracy or completeness of information in this document.
[2024-02-23] MEDS: 0.9 % SODIUM CHLORIDE 1,000 ML 125 ML IV ×2 (05:47→13:09)
[2024-02-23] MEDS: OXYTOCIN/0.9 % SODIUM CHLORIDE 10 UNITS/500 ML PLAST..BAG 6 UNIT IV (05:48)
[2024-02-23 06:43] LABS: Hematocrit 34.6 % (36.0-48.0); Hemoglobin 10.9 g/dL (12.0-16.0); Mean Corpuscular HGB Conc 31.5 g/dL (29.9-35.2); Mean Corpuscular Hemoglobin 25.6 pg (26.7-34.0); Mean Corpuscular Volume 81.4 fL (81.0-99.0); Mean Platelet Volume 12.8 fL (9.5-13.5); Platelet Count 178 10^3/uL (150-450); Red Blood Count 4.25 10^6/uL (4.20-5.40); Red Cell Distribution Width 14.3 % (11.0-15.0); White Blood Count 9.5 10^3/uL (4.0-11.0)
[2024-02-23 07:09] LABS: Amphetamine Screen Urine NEGATIVE (NEGATIVE); Barbiturates Screen Urine NEGATIVE (NEGATIVE); Benzodiazepines Screen Urine NEGATIVE (NEGATIVE); Buprenorphine Screen Urine NEGATIVE (NEGATIVE); Cannabinoid Screen Urine NEGATIVE (NEGATIVE); Cocaine Screen Urine NEGATIVE (NEGATIVE); Methadone Screen Urine NEGATIVE (NEGATIVE); Methamphetamines Screen Urine NEGATIVE (NEGATIVE); Opiate Screen Urine NEGATIVE (NEGATIVE); Oxycodone Screen Urine NEGATIVE (NEGATIVE); Phencyclidine Screen Urine NEGATIVE (NEGATIVE); Tricyclic Antidepressant Urine NEGATIVE (NEGATIVE)
[2024-02-23] MEDS: AMPICILLIN SODIUM 2,000 MG in 0.9 % SODIUM CHLORIDE 100 ML 200 MG IV (09:08)
[2024-02-23] MEDS: ROPIVACAINE HCL/PF 400 MG/200 ML PREMIX 6 MG EPIDURAL (13:09)
[2024-02-23] MEDS: AMPICILLIN SODIUM 1,000 MG in 0.9 % SODIUM CHLORIDE 50 ML 100 MG IV (13:46)
[2024-02-23] MEDS: OXYTOCIN/0.9 % SODIUM CHLORIDE 20 UNITS/1,000 ML PLAST..BAG 125 UNIT IV (15:58)
--- NOTE | 2024-02-23 16:18 | PM.OBPRCVD ---
Procedure Intrapartal events: None Induction method: per pitocin protocol Delivery augmentation: rupture of membranes and pitocin Delivery monitor: external FHT and external uterine Route of delivery: Episiotomy Description: midline L&D Laceration Description: perineal - 2nd degree Delivery repair: Vicryl Estimated blood loss (mL): 300 Anesthesia type: Epidural Disposition: floor Infant Delivery date: 02/23/24 Gender: female presentation: vertex Placental delivery description: Spontaneous cord description: 3 Vessels and Nuchal Cord
[2024-02-23] MEDS: IBUPROFEN 600 MG TABLET PO (18:53)
[2024-02-23] MEDS: BENZOCAINE/MENTHOL 85 GRAM SPRAY BOTTLE 1 APPLIC TOPICAL (19:03)
[2024-02-23] MEDS: GLYCERIN/WITCH HAZEL PADS 1 PAD TOPICAL (19:04)
[2024-02-24] VITALS (7 sets, daily range): BP systolic 122–128; BP diastolic 62–75; PULSE 72–96; TEMP 36.6–36.8
--- NOTE | 2024-02-24 02:44 | W.PC.ACHO ---
Registration Status: ADM IN Primary Language: Chinese Preferred Language: Chinese Report given to Clarisse SORENSEN. Care relinquished. Active Medications Generic Name Dose Route Start Last Admin Trade Name Tam PRN Reason Stop Dose Admin Acetaminophen 650 mg 02/23/24 16:19 Acetaminophen 325 Mg Tablet PO Q6H PRN Mild Pain Al Hydroxide/Mg Hydroxide 2,400 mg 02/23/24 16:19 Magnesium Hydroxide 2,400 Mg/10 Ml Oral.Susp PO Q6H PRN Dyspepsia Benzocaine/Menthol 1 applic 02/23/24 16:19 02/23/24 19:03 Benzocaine/Menthol 85 Gram [place] TOPICAL 1 applic Q2H PRN Administration Pain Carboprost Tromethamine 250 mcg 02/23/24 04:55 Carboprost Tromethamine 250 Mcg/Ml 1 Ml Vial IM 02/25/24 04:55 Q15M PRN Bleeding Diphenhydramine HCl 25 mg 02/23/24 04:55 Diphenhydramine Hcl 50 Mg/Ml Vial IV 02/24/24 04:58 Q6H PRN Itching Diphtheria/Pertussis/Tetanus Vacc 0.5 ml 02/25/24 09:00 Adacel Diph,Pertuss(Acell),Tet Vac/Pf 0.5 Ml Adult Syringe IM 02/25/24 09:01 .ONCE ONE Docusate Sodium 100 mg 02/24/24 09:00 Docusate Sodium 100 Mg Capsule PO BID VALORIE Ephedrine Sulfate 5 mg 02/23/24 04:55 Ephedrine Sulfate 50 Mg/Ml Vial IV 02/24/24 04:58 Q5M PRN Blood Pressure - Low Fentanyl Citrate 100 mcg 02/23/24 04:55 Fentanyl Citrate/Pf 100 Mcg/2 Ml Vial EPIDURAL ONCE PRN epidural Fentanyl Citrate 100 mcg 02/23/24 04:55 Fentanyl Citrate/Pf 100 Mcg/2 Ml Vial EPIDURAL ONCE PRN epidural Tranexamic Acid 1,000 mg/ 110 mls @ 440 mls/hr 02/23/24 04:55 Sodium Chloride IV 02/25/24 04:55 ONCE PRN Uterine Bleeding Sodium Chloride 1,000 mls @ 125 mls/hr 02/23/24 05:00 02/23/24 13:09 Sodium Chloride 0.9% 1,000 Ml IV 125 mls/hr .Q8H VALORIE Administration Oxytocin/Sodium Chloride 10 units in 500 mls @ 6 mls/hr 02/23/24 05:00 02/23/24 11:39 Pitocin 10 Unit/500 Ml-Ns IV 18 milliunit/min TITR VALORIE 54 mls/hr Infusion Protocol 2 MILLIUNIT/MIN Ropivacaine/Sodium Chloride 400 mg in 200 mls @ 6 mls/hr 02/23/24 05:00 02/23/24 13:09 Naropin 0.2% 400 Mg/200 Ml Bag EPIDURAL 6 mls/hr Q24H VALORIE Administration Ibuprofen 600 mg 02/23/24 16:19 02/23/24 18:53 Ibuprofen 600 Mg Tablet PO 600 mg Q6H PRN Administration Moderate Pain Labetalol HCl 100 mg 02/23/24 09:00 Labetalol Hcl 100 Mg Tablet PO ONCE VALORIE Levothyroxine Sodium 250 mcg 02/25/24 06:30 Levothyroxine Sodium 125 Mcg Tablet PO MoWeFr [facility] Levothyroxine Sodium 125 mcg 02/24/24 06:30 Levothyroxine Sodium 125 Mcg Tablet PO TuTh [facility] Levothyroxine Sodium 100 mcg 02/24/24 20:59 Levothyroxine Sodium 100 Mcg Tablet PO TuTh [facility] Lidocaine 5 ml 02/23/24 04:55 Lidocaine Viscous 2% 15 Ml Solution TOPICAL 02/25/24 04:57 ONCE PRN Pain Lidocaine 1 ml 02/23/24 04:55 Lidocaine Hcl 1% 200 Mg/20 Ml Mdv INJ 02/25/24 04:57 ONCE PRN Pain Lidocaine 5 ml 02/23/24 04:55 Lidocaine Hcl 2% Pf 100 Mg/5 Ml Vial INJ 02/24/24 04:58 Q1H PRN Pain Measles/Mumps/Rubella Vaccine Live 0.5 ml 02/25/24 09:00 Measles,Mumps,Rubella Vacc/Pf 0.5 Ml Vial SQ 02/25/24 09:01 .ONCE ONE Methylergonovine Maleate 0.2 mg 02/23/24 04:55 Methylergonovine Maleate 0.2 Mg/Ml Ampule IM 02/25/24 04:55 ONCE PRN Uterine Contractility/Contract Methylergonovine Maleate 0.2 mg 02/23/24 04:55 Methylergonovine Maleate 0.2 Mg Tablet PO 02/25/24 04:55 Q4H PRN Uterine Contractility/Contract Misoprostol 600 mcg 02/23/24 04:55 Misoprostol 100 Mcg Tablet PO 02/25/24 04:55 ONCE PRN Uterine Bleeding Misoprostol 800 mcg 02/23/24 04:55 Misoprostol 100 Mcg Tablet SL 02/25/24 04:55 ONCE PRN Uterine Bleeding Misoprostol 1,000 mcg 02/23/24 04:55 Misoprostol [address] 02/25/24 04:55 ONCE PRN Uterine Bleeding Nalbuphine HCl 10 mg 02/23/24 04:55 Nalbuphine Hcl 10 Mg/Ml Ampule IV Q3H PRN Pain Naloxone HCl 0.4 mg 02/23/24 04:55 Naloxone Hcl 0.4 Mg/Ml Vial IV 02/24/24 04:58 ONCE PRN Opioid Reversal Ondansetron HCl 4 mg 02/23/24 04:55 Ondansetron Pf 4 Mg/2 Ml Vial IV Q6H PRN Nausea And Vomiting Ondansetron HCl 4 mg 02/23/24 04:55 Ondansetron 4 Mg Rapdis Tablet SL Q6H PRN Nausea And Vomiting Oxytocin 10 unit 02/23/24 04:55 Oxytocin 10 Unit/Ml Vial IM 02/25/24 04:55 ONCE PRN Bleeding Senna 17.2 mg 02/23/24 20:00 Sennosides 8.6 Mg Tablet PO QHS PRN Constipation Simethicone 80 mg 02/23/24 16:19 Simethicone 80 Mg Tab.Chew PO QID PRN Abdominal Distention Temazepam 15 mg 02/23/24 20:00 Temazepam 15 Mg Capsule PO QHS PRN Sleep Witch Ivania/Glycerin 1 pad 02/23/24 16:19 02/23/24 19:04 Glycerin/Witch [place]ia Pads TOPICAL 1 pad Q2H PRN Administration Pain Witch Ivania/Glycerin 1 pad 02/23/24 18:59 Glycerin/Witch [place]ia Pads TOPICAL Q2H PRN Pain Diet Category Date Time Status Regular Consistency Diet Diet 02/23/24 16:19 Active IV Insertion/Site Date of IV Line Insertion [ 02/23/24 left Wrist] IV Insertion Time [left Wrist] 05:10 Neurology Patient orientation (short person,place,time,situation list) Respiratory Oxygen Delivery Method Room Air Oxygen Delivery Method Room Air Oxygen Delivery Method Room Air Oxygen Delivery Method Room Air Renal Bladder Pattern Continent
[2024-02-24] MEDS: IBUPROFEN 600 MG TABLET PO ×3 (04:36→17:00)
[2024-02-24 07:36] LABS: Basophils Percent Auto 0.3 % (0.2-2.0); Eosinophils Absolute Auto 0.1 10^3/uL (0.0-0.7); Eosinophils Percent Auto 0.8 % (0.9-7.0); Hematocrit 32.4 % (36.0-48.0); Immature Granulocytes Abs Auto 0.05 10^3/uL (0.00-0.03); Immature Granulocytes Pct Auto 0.5 % (0.0-0.5); Lymphocytes Absolute Auto 1.4 10^3/uL (1.2-3.8); Lymphocytes Percent Auto 12.7 % (20.5-60.0); Mean Corpuscular HGB Conc 30.9 g/dL (29.9-35.2); Mean Corpuscular Hemoglobin 25.4 pg (26.7-34.0); Mean Corpuscular Volume 82.2 fL (81.0-99.0); Mean Platelet Volume 11.7 fL (9.5-13.5); Monocytes Percent Auto 9.4 % (1.7-12.0); Neutrophils Absolute Auto 8.3 10^3/uL (1.4-6.5); Neutrophils Percent Auto 76.3 % (43.0-75.0); Platelet Count 158 10^3/uL (150-450); Red Blood Count 3.94 10^6/uL (4.20-5.40); Red Cell Distribution Width 14.3 % (11.0-15.0); White Blood Count 10.9 10^3/uL (4.0-11.0)
[2024-02-24] MEDS: LEVOTHYROXINE SODIUM 125 MCG TABLET PO (07:40)
[2024-02-24] MEDS: LEVOTHYROXINE SODIUM 100 MCG TABLET PO (07:40)
--- NOTE | 2024-02-24 07:55 | P.OBPN_ITS ---
OB - PN: Subj Subjective Patient comments: no complaints and pain well controlled [place] status: doing well feeding status: exclusively Exam Constitutional Vital Signs, click to edit/add: Last Vital Signs Temp 97.9 F 02/24/24 04:41 Pulse 82 02/24/24 07:26 Resp 16 02/24/24 04:41 BP 125/69 02/24/24 07:26 O2 Del Method Room Air 02/24/24 04:41 Documenting provider has reviewed patient's vital signs: yes Common normals: no apparent distress, average body habitus, oriented x3, no limitations, healthy appearing, alert and well nourished Orientation/consciousness: Yes awake, Yes oriented to person, Yes oriented to place and Yes oriented to time HENMT Common normals: normocephalic Eye Common normals: EOMs intact bilaterally General eye: normal appearance of both eyes Neck & C-Spine Common normals: full ROM Lymph Lymphatic: no lymphadenopathy noted Chest Common normals: inspection of chest normal Respiratory Common normals: normal respiratory effort, no retractions, no use of accessory muscles, clear to auscultation bilaterally and percussion normal Effort & inspection: able to speak in complete sentences Auscultation: clear to auscultation bilaterally Cardio Common normals: regular rate and regular rhythm Rate: regular rate Rhythm: regular rhythm GI Common normals: Normal to inspection, nondistended, normoactive bowel sounds present Inspection: normal to inspection Back & Pelvis Common normals: no CVA tenderness General back: CVA tenderness Extremity Common normals: normal to inspection Neuro Common normals: oriented x3 Sensorium/orientation: awake, alert, oriented to person, oriented to place, oriented to time and orientation impaired Psych Common normals: mental status grossly normal, thought process normal, cooperative, affect normal, speech normal, activity/motor behavior normal, denies hallucinations, denies homicidal ideation and denies suicidal ideation Appearance: grossly normal and well kempt Attitude: calm Thought process: normal thought process Thought content: normal thought content Results Labs Labs: Short CBC 02/24/24 Range/Units 07:13 WBC 10.9 (4.0-11.0) 10^3/uL Hgb 10.0 L (12.0-16.0) g/dL Hct 32.4 L (36.0-48.0) % Plt Count 158 (150-450) 10^3/uL OB - PN: A/P Plan - Vaginal Delivery day: 1 Plan: routine care Time Spent with Patient Time: Total time spent is greater than 50% in coordination of care (as documented) at patient's floor/unit and/or counseling patient: Total time spent with greater than 50% in coordination of care (as documented) at patient's floor/unit and/or counseling patient: less than 15 minutes
[2024-02-24] MEDS: DOCUSATE SODIUM 100 MG CAPSULE PO (08:36)
[2024-02-24] MEDS: LABETALOL HCL 100 MG TABLET PO (08:36)
[2024-02-25] MEDS: ACETAMINOPHEN 325 MG TABLET 650 MG PO (00:14)
[2024-02-25] MEDS: DOCUSATE SODIUM 100 MG CAPSULE PO ×2 (00:15→08:34)
[2024-02-25 00:17] VITALS: BP 118/56; PULSE 79
--- NOTE | 2024-02-25 07:42 | P.OBPN_ITS ---
OB - PN: Subj Subjective Patient comments: no complaints and pain well controlled [place] status: doing well Exam Constitutional Vital Signs, click to edit/add: Last Vital Signs Temp 98.2 F 02/24/24 16:54 Pulse 79 02/25/24 00:17 Resp 18 02/24/24 16:54 BP 118/56 02/25/24 00:17 O2 Del Method Room Air 02/24/24 17:00 Documenting provider has reviewed patient's vital signs: yes Common normals: no apparent distress Respiratory Common normals: clear to auscultation bilaterally Cardio Common normals: regular rate and regular rhythm GI Common normals: Normal to inspection, nondistended, normoactive bowel sounds present Extremity Common normals: no clubbing, cyanosis or edema and no calf tenderness OB - PN: A/P Plan - Vaginal Delivery day: 2 Plan: routine care, discharge home and follow up 6 weeks Time Spent with Patient Time: Total time spent is greater than 50% in coordination of care (as documented) at patient's floor/unit and/or counseling patient: Total time spent with greater than 50% in coordination of care (as documented) at patient's floor/unit and/or counseling patient: less than 15 minutes
[2024-02-25 08:33] VITALS: BP 128/81; PULSE 85
[2024-02-25] MEDS: IBUPROFEN 600 MG TABLET PO (08:33)
[2024-02-25] MEDS: LABETALOL HCL 100 MG TABLET PO (08:34)
[2024-02-25 08:35] VITALS: TEMP 36.5
== END 2024-02-25 12:55 | disposition home or self-care (01) | DRG 807 ==
PROVIDERS: Admitting Provider Obstetrics & Gynecology; PCP Family Medicine; Visit Provider Obstetrics & Gynecology
DX: O10.02 Pre-existing essential hypertension complicating childbirth (principal); Z37.0 Single live birth; O99.284 Endocrine, nutritional and metabolic diseases complicating childbirth; E03.9 Hypothyroidism, unspecified; O69.81X0 Labor and delivery complicated by cord around neck, without compression, not applicable or unspecified; O70.1 Second degree perineal laceration during delivery; Z3A.39 39 weeks gestation of pregnancy
CPT/HCPCS: 36415; 59050; 59410; 80307; 85025; 85027; 86850; 86900; 86901; J0290; J2795

== ENCOUNTER 2024-02-27 08:18 | Outpatient (OUT) | payer OTHER, SELFPAY ==
--- OUTSIDE RECORDS SUMMARY | 2024-02-27 08:27 | XMS_ITS | CCD ---
Author Organization [facility] Care Team Providers Care [facility] Sales Associate Name Role Phone Unavailable Primary Care Provider [...] Unavailable PEDRO, DR OLIVEIRA Primary Care Unavailable [place], DR EMELIA Luna Consulting Unavailable PEDRO, DR [...] A Primary Care Unavailable Kevinricky OVERTON Anupama Martin Primary Care Provider Moshe PALOMINO, Emile Unavailable Pedro DO, Guillaume R Unavailable Unavailable Primary Care Provider Unavailabl e KEVIN, [facility] Primary Care Unavailabl e KEVIN, [facility] Primary Care Unavailabl e ABHYANKAR, RONI Referring Unavailable ROSAS MCKINNEY Attending Unavailable KEVIN, [facility] Care Unavailabl e ABHYANKAR, RONI Referring Unavailable KEVIN, [facility] Care Unavailabl e KEVIN, [facility] Care Unavailabl e KEVIN, [facility] Primary Care Unavailabl e PEDRO, GUILLAUME R Referring Unavailable KEVIN, [facility] Care Unavailabl e FRANNY HAGER Referring Unavailable KEVIN, [facility] Care Unavailabl e PEDRO, GUILLAUME R Referring Unavailable KEVIN, [facility] Primary Care Unavailabl e KEVIN, [facility] Primary Care Unavailabl e PEDRO, GUILLAUME R Referring Unavailable KEVIN, [facility] Care Unavailabl e KEVIN, [facility] Primary Care Unavailabl e ASIF SCHAEFER [...] day(s), # 20 cap(s), Refills(s) 0, Pharmacy: [facility], 172, cm, 05/26/22 9:34:00 EST, Height/Length Dosing, 83.6, kg, 05/26/22 9:34:00 EST, Weight Dosing Start Date: 05/26/22 Stop Date: 06/05/22 Status: Ordered aspirin 81 mg delayed release oral tablet (11 sources) Platelet Aggregation Inhibitor, Nonsteroidal Anti-inflammatory Drug [...] Active docusate sodium 100 mg oral capsule (10 sources) Start: 01-27-20 24 End: 02-26-20 24 take 1 capsule by mouth twice daily as needed for constipation docusate sodium (Colace) 100 MG capsule Indications: Constipation, unspecified constipation type Take 1 capsule (100 mg) by mouth 2 (two) times a day as needed for constipation 30 capsule 5 01/27/2024 02/26/2024 Active labetalol hydrochloride 100 mg oral tablet (11 sources) beta-Adrenergic Anais Start: 07-24-19 24 End: [...] medications magnesium oxide 400 mg oral tablet (10 sources) Start: End: take 1 tablet by [...] Start: 09-11-2021 take 1 capsule by mo [facility] before mealtime omeprazole (PriLOSEC) [address] capsule Take 40 mg by mouth in the morning. Take before meals. 05/26/2022 Active Comment on above: Take 1 capsule by mo [facility] once daily. Wait 20-30 minutes before eating or taking other medications. Take 1 capsule by mo [facility] once daily in the morning, wait 20-30 minutes before eating or taking other medications Take 1 capsule by mo [facility] once daily. 20-30 minutes before [...] polysaccharide iron complex 391 mg oral capsule (10 sources) Start: 4 End: 5 take 1 [...] Status: Ordered MV-Min-Fe Fum-FA-DHA ( 1 PO) (14 sources) MV-Min- Fe Fum-FA-DHA ( 1 PO) [...] Comment on above: Take [address] [facility] twice daily. escitalopram 20 mg [...] Comment on above: Take 1 tablet by [facility] once daily. fluconazole 150 mg oral tablet (8 sources) Azole Antifungal Start: 02-07-20 End: 02-26-20 take 1 tablet by mouth once fluconazole (DIFLUCAN) 150 mg tablet 1 (one) tablet by mouth one time dose 1 tablet 1 02/06/2022 02/25/2023 Discontinued Comment on above: 1 (one) tablet by [facility] one time dose hydrOXYzine hydrochloride [...] Comment on above: Take 1 tablet by [facility] three times daily as needed. 10 [...] 02/25/2023 Discontinued Start: 08-23-2020 End: 02-25-2023 medroxyPROGESTERone (DEPO-MN OVERA) 150 mg/mL injection Indications: Excessive or [...] first trimester] Onset: 09-16-2023 Chronic Menstrual disorders (16 sources) Irregular periods; Translations: [Irregular menstruation, unspecified] [...] Name Value Interpretation Reference Range Facil ity ALL CBC WITH AUTO DIFFon BASOPHILS ABSOLUTE AUTO 0 [facility] Basophils/100 WBC (Bld) 0.3 % 0.2 - 2.0 % [facility] Eosinophils/100 WBC (Bld) 0.8 % Low 0.9 - 7.0 % [facility] Erythrocyte distribution width (RBC) [Ratio] 14.3 % 11.0 - 15.0 % [facility] Hematocrit (Bld) [Volume fraction] 32.4 % Low 36.0 - 48.0 % [facility] Hemoglobin (Bld) [Mass/Vol] 10 g/dL Low 12.0 - 16.0 g/dL [facility] IMMATURE GRANULOCYTES ABS AUTO 0.05 High [facility] Immature granulocytes/100 WBC (Bld) 0.5 % 0.0 - 0.5 % [facility] Interpretation and review of laboratory results Abnormal [facility] LYMPHOCYTES ABSOLUTE AUTO 1.4 [facility] Lymphocytes/100 WBC (Bld) 12.7 % Low 20.5 - 60.0 % [facility] MCH (RBC) [Entitic mass] 25.4 pg Low 26.7 - 34.0 pg [facility] MCHC (RBC) [Mass/Vol] 30.9 g/dL 29.9 - 35.2 g/dL [facility] MCV (RBC) [Entitic vol] 82.2 fL 81.0 - 99.0 fL [facility] MONOCYTES ABSOLUTE AUTO 1 High [facility] Monocytes/100 WBC (Bld) 9.4 % 1.7 - 12.0 % [facility] NEUTROPHILS ABSOLUTE AUTO 8.3 High [facility] Neutrophils/100 WBC (Bld) 76.3 % High 43.0 - 75.0 % [facility] Platelet mean volume (Bld) [Entitic vol] 11.7 fL 9.5 - 13.5 fL [facility] EO # 0.1 [facility] PLT 158 [facility] RBC 3.94 Low [facility] WBC 10.9 [facility] WITH PLATELET NO DI FFERENTIALon 02-23-2024 Erythrocyte distribution width (RBC) [Ratio] 14.3 % 11.0 - 15.0 % [facility] Hematocrit (Bld) [Volume fraction] 34.6 % Low 36.0 - 48.0 % [facility] Hemoglobin (Bld) [Mass/Vol] 10.9 g/dL Low 12.0 - 16.0 g/dL [facility] Interpretation and review of laboratory results Abnormal [facility] MCH (RBC) [Entitic mass] 25.6 pg Low 26.7 - 34.0 pg [facility] MCHC (RBC) [Mass/Vol] 31.5 g/dL 29.9 - 35.2 g/dL [facility] MCV (RBC) [Entitic vol] 81.4 fL 81.0 - 99.0 fL [facility] Platelet mean volume (Bld) [Entitic vol] 12.8 fL 9.5 - 13.5 fL [facility] PLT 178 [facility] RBC 4.25 [facility] WBC 9.5 [facility] Urinalysis macro (dipstick) panel (U)on 02-10-2024 Bilirubin, UA Negative Negative - 4(70) +++ mg/dL [facility] Blood, UA Negative Negative - 50 Pepito/mcL [facility] Clarity, UA Clear [facility] Color, UA Yellow [facility] Glucose, UA Negative Negative - 1999(110) ++++ mg/dL [facility] Interpretation and review of laboratory results Normal [facility] Ketones, UA Negative Negative - 160(16) ++++ mg/dL [facility] Leukocytes, UA Negative Negative - 500+++ Ilia/mcL [facility] Nitrite, UA Negative Negative - Positive [facility] pH, UA 6.5 5 - 9 [facility] Protein, UA Negative Negative - 1999(20) ++++ mg/dL [facility] Spec Grav, UA 1.01 1 - 1.03 [facility] Urobilinogen, UA 0.2 0.2 - 12 mg/dL [facility] T4 Free SerPl-mCncon 024 Free T4 [Mass/Vol] 1.1 ng/dL Normal 0.9-1.7 [facility] Comment on above: Order Comment: Speci men Type: BLOOD SPECIMEN Ordering Facility: [facility]-DIRECT[facility]ER[facility] [place] Address: [facility] [address] [place] [address] Performed By: #### 3 016-3, 3024-7 #### [facility] CLIA [id number] [address] [place] [address] [place] TSH SerPl-aCncon 02-05-2024 TSH Qn 1.340 m[IU]/L Normal 0.270-4.200 [facility] Comment on above: Order Comment: Speci men Type: BLOOD SPECIMEN Ordering Facility: [facility]ER[facility] [place] Address: [facility] [address] [place] [address] Result Comment: If t he patient is , TSH reference range varies by gestational period: First Trimester (weeks 9-12): 0.180-2.990 mIU/L Second Trimester: 0.110-3.980 mIU/L Third Trimester: 0.480-4.710 mIU/L Manuel Grayson et al. A Practical Approach for the Verifications and Determination of Site- and Trimester-Specific Reference Intervals for Thyroid Function tests in . Thyroid, 2019:29:3:412-420. Emanuel E, et al. 2017 Guidelines of the [place] [employer] for the Diagnosis and Management of Thyroid Disease during and the . Thyroid, 2017:27:3:315-389. Performed By: #### 3 016-3, 3024-7 #### [facility] CLIA [id number] [facility] [place] [address] [place] Urinalysis macro (dipstick) panel (U)on 01-27-2024 Bilirubin, UA Negative Negative - 4(70) +++ mg/dL [facility] Blood, UA Negative Negative - 50 Pepito/mcL [facility] Clarity, UA Clear [facility] Color, UA Yellow [facility] Glucose, UA Negative Negative - 2000(110) ++++ mg/dL [facility] Interpretation and review of laboratory results Normal [facility] Ketones, UA Negative Negative - 160(16) ++++ mg/dL [facility] Leukocytes, UA Negative Negative - 500+++ Ilia/mcL [facility] Nitrite, UA Negative Negative - Positive [facility] pH, UA 5.5 5 - 9 [facility] Protein, UA Negative Negative - 2000(20) ++++ mg/dL [facility] Spec Grav, UA 1.020 1 - 1.03 [facility] Urobilinogen, UA 0.2 0.2 - 12 mg/dL [facility] CBC W Auto Differential pane l (Bld)on 01-19-2024 Basophils (Bld) [#/Vol] 10*3/uL Normal <0.11 [facility] Comment on above: Order Comment: Speci men Type: BLOOD SPECIMEN Ordering Facility: External Submitter Address: , , Performed By: #### 5 7021-8 #### [facility] CLIA [id number] [address] [place] [address]109 Basophils/100 WBC (Bld) 0.2 % Normal [facility] Comment on above: Order Comment: Speci men Type: BLOOD SPECIMEN Ordering Facility: External Submitter Address: , , Performed By: #### 5 7021-8 #### [facility] CLIA [id number] [address] [place] [address] 67105 Differential cell count method Nom (Bld) Auto Normal [facility] Comment on above: Order Comment: Speci men Type: BLOOD SPECIMEN Ordering Facility: External Submitter Address: , , Performed By: #### 5 7021-8 #### [facility] CLIA [id number] [address] [place] [address] 09923 Eosinophils (Bld) [#/Vol] 0.06 10*3/uL Normal <0.46 [facility] Comment on above: Order Comment: Speci men Type: BLOOD SPECIMEN Ordering Facility: External Submitter Address: , , Performed By: #### 5 7021-8 #### [facility] CLIA [id number] [address] [place] [address] 65397 Eosinophils/100 WBC (Bld) 0.6 % Normal [facility] Comment on above: Order Comment: Speci men Type: BLOOD SPECIMEN Ordering Facility: External Submitter Address: , , Performed By: #### 5 7021-8 #### [facility] CLIA [id number] [address] [place] [address] 41491 Erythrocyte distribution width (RBC) [Ratio] 13.3 % Normal 11.5-15.0 [facility] Comment on above: Order Comment: Speci men Type: BLOOD SPECIMEN Ordering Facility: External Submitter Address: , , Performed By: #### 5 7021-8 #### [facility] IA [id number] [address] [place] [address] 25359 Hematocrit (Bld) [Volume fraction] 32.8 % Low 36.0-46.0 [facility] Comment on above: Order Comment: Speci men Type: BLOOD SPECIMEN Ordering Facility: External Submitter Address: , , Performed By: #### 5 7021-8 #### [facility] CLIA [id number] [address] [place] [address] 98144 Hemoglobin (Bld) [Mass/Vol] 10.7 g/dL Low 11.5-15.5 [facility] Comment on above: Order Comment: Speci men Type: BLOOD SPECIMEN Ordering Facility: External Submitter Address: , , Performed By: #### 5 7021-8 #### [facility] CLIA [id number] [address] [place] [address] 41363 Immature granulocytes (Bld) [#/Vol] 0.05 10*3/uL Normal <0.10 [facility] Comment on above: Order Comment: Speci men Type: BLOOD SPECIMEN Ordering Facility: External Submitter Address: , , Performed By: #### 5 7021-8 #### [facility] CLIA [id number] [address] [place] [address] 91574 Immature granulocytes/100 WBC (Bld) 0.5 % Normal [facility] Comment on above: Order Comment: Speci men Type: BLOOD SPECIMEN Ordering Facility: External Submitter Address: , , Performed By: #### 5 7021-8 #### [facility] CLIA [id number] [address] [place] [address] 52875 Lymphocytes (Bld) [#/Vol] 1.55 10*3/uL Normal 1.00-4.00 [facility] Comment on above: Order Comment: Speci men Type: BLOOD SPECIMEN Ordering Facility: External Submitter Address: , , Performed By: #### 5 7021-8 #### [facility] CLIA [id number] [address] [place] [address] 27780 Lymphocytes/100 WBC (Bld) 15.1 % Normal [facility] Comment on above: Order Comment: Speci men Type: BLOOD SPECIMEN Ordering Facility: External Submitter Address: , , Performed By: #### 5 7021-8 #### [facility] CLIA [id number] [address] [place] [address] 00074 MCH (RBC) [Entitic mass] 27.8 pg Normal 26.0-34.0 [facility] Comment on above: Order Comment: Speci men Type: BLOOD SPECIMEN Ordering Facility: External Submitter Address: , , Performed By: #### 5 7021-8 #### [facility] CLIA [id number] [address] [place] [address] 30828 MCHC (RBC) [Mass/Vol] 32.6 g/dL Normal 30.5-36.0 [facility] Comment on above: Order Comment: Speci men Type: BLOOD SPECIMEN Ordering Facility: External Submitter Address: , , Performed By: #### 5 7021-8 #### [facility] CLIA [id number] [address] [place] [address] 16407 MCV (RBC) [Entitic vol] 85.2 fL Normal 80.0-100.0 [facility] Comment on above: Order Comment: Speci men Type: BLOOD SPECIMEN Ordering Facility: External Submitter Address: , , Performed By: #### 5 7021-8 #### [facility] CLIA [id number] [address] [place] [address] 02141 Monocytes (Bld) [#/Vol] 0.77 10*3/uL Normal <0.87 [facility] Comment on above: Order Comment: Speci men Type: BLOOD SPECIMEN Ordering Facility: External Submitter Address: , , Performed By: #### 5 7021-8 #### [facility] CLIA [id number] [address] [place] [address] 06928 Monocytes/100 WBC (Bld) 7.5 % Normal [facility] Comment on above: Order Comment: Speci men Type: BLOOD SPECIMEN Ordering Facility: External Submitter Address: , , Performed By: #### 5 7021-8 #### [facility] CLIA [id number] [address] [place] [address] 91065 Neutrophils (Bld) [#/Vol] 7.81 10*3/uL High 1.45-7.50 [facility] Comment on above: Order Comment: Speci men Type: BLOOD SPECIMEN Ordering Facility: External Submitter Address: , , Performed By: #### 5 7021-8 #### [facility] CLIA [id number] [address] [place] [address] 60460 Neutrophils/100 WBC (Bld) 76.1 % Normal [facility] Comment on above: Order Comment: Speci men Type: BLOOD SPECIMEN Ordering Facility: External Submitter Address: , , Performed By: #### 5 7021-8 #### [facility] CLIA [id number] [address] [place] [address] 70060 Nucleated RBC (Bld) [#/Vol] 10*3/uL Normal <0.01 [facility] Comment on above: Order Comment: Speci men Type: BLOOD SPECIMEN Ordering Facility: External Submitter Address: , , Performed By: #### 5 7021-8 #### [facility] CLIA [id number] [address] [place] [address] 78576 Nucleated RBC/100 WBC (Bld) [Ratio] 0.0 /100 WBC Normal [facility] Comment on above: Order Comment: Speci men Type: BLOOD SPECIMEN Ordering Facility: External Submitter Address: , , Performed By: #### 5 7021-8 #### [facility] CLIA [id number] [address] [place] [address] Platelet mean volume (Bld) [Entitic vol] 11.3 fL Normal 9.0-12.7 [facility] Comment on above: Order Comment: Speci men Type: BLOOD SPECIMEN Ordering Facility: External Submitter Address: , , Performed By: #### 5 7021-8 #### [facility] CLIA [id number] [address] [place] [address] 84910 Platelets (Bld) [#/Vol] 172 10*3/uL Normal 150-400 [facility] Comment on above: Order Comment: Speci men Type: BLOOD SPECIMEN Ordering Facility: External Submitter Address: , , Performed By: #### 5 7021-8 #### [facility] CLIA [id number] [address] [place] [address] 37705 RBC (Bld) [#/Vol] 3.85 10*6/uL Low 3.90-5.20 [facility] Comment on above: Order Comment: Speci men Type: BLOOD SPECIMEN Ordering Facility: External Submitter Address: , , Performed By: #### 5 7021-8 #### [facility] CLIA [id number] [address] [place] [address] 40470 WBC (Bld) [#/Vol] 10.26 10*3/uL Normal 3.70-11.00 [facility] Comment on above: Order Comment: Speci men Type: BLOOD SPECIMEN Ordering Facility: External Submitter Address: , , Performed By: #### 5 7021-8 #### [facility] CLIA [id number] [address] [place] [address] 41966 T4 Free SerPl-mCncon 09-16-2 024 Free T4 [Mass/Vol] 0.9 ng/dL Normal 0.9-1.7 [facility] Comment on above: Order Comment: Speci men Type: BLOOD SPECIMEN Ordering Facility: [facility] [place] Address: [address] [place] [address] Performed By: #### G LTGST #### [facility] CLIA [id number] [address] [place] [address] [place] TSH SerPl-aCncon 01-05-2024 TSH Qn 1.220 m[IU]/L Normal 0.270-4.200 [facility] Comment on above: Order Comment: [...] E, et al. 2017 Guidelines of the [place] Thy[employer] Association for the Diagnosis and Management of Thyroid Disease during and the . Thyroid, 2017:27:3:315-389. Performed By: #### 5 7021-8 #### [facility] CLIA [id number] [address] [place] [address] T4 Free SerPl-mCncon 024 Free T4 [Mass/Vol] 1.1 ng/dL Normal 0.9-1.7 [facility] Comment on above: Order Comment: Tammy mares Type: BLOOD SPECIMEN [facility] [place] Address: [facility] [address] [place] [address] Performed By: #### G LTGST #### [facility] CLIA [id number] [address] [place] [address] [place] TSH SerPl-aCncon 12-08-2023 TSH Qn 0.607 m[IU]/L Normal 0.270-4.200 [facility] Comment on above: Order Comment: Speci men Type: BLOOD SPECIMEN Ordering Facility: [facility] OF MUSIC THERAPY [place] Address: [facility] [address] [address] Result Comment: If t he patient is , TSH reference range varies by gestational period: First Trimester (weeks 9-12): 0.180-2.990 mIU/L Second Trimester: 0.110-3.980 mIU/L Third Trimester: 0.480-4.710 mIU/L Manuel Grayson et al. A Practical Approach for the Verifications and Determination of Site- and Trimester-Specific Reference Intervals for Thyroid Function tests in . Thyroid, 2019:29:3:412-420. Emanuel Nassar et al. 2017 Guidelines of the [place] Thy[employer] Association for the Diagnosis and Management of Thyroid Disease during and the . Thyroid, 2017:27:3:315-389. Performed By: #### G LTGST #### [facility] CLIA [id number] [address] [place], [place] [id number] [place] CBC W Auto Differential pane l (Bld)on 11-20-2023 Basophils (Bld) [#/Vol] 0.04 10*3/uL Normal <0.11 [facility] Comment on above: Order Comment: Speci men Type: BLOOD SPECIMEN Ordering Facility: [facility] THERAP[facility] [place] Address: [facility] [address] [address] Performed By: #### 5 7021-8 #### [facility] CLIA [id number] [address] [place] [address] 43974 Basophils/100 WBC (Bld) 0.6 % Normal [facility] Comment on above: Order Comment: Speci men Type: BLOOD SPECIMEN Ordering Facility: [facility] OBDIRECTOR OF MUSIC THERAPY [place] Address: [facility] [address] [address] Performed By: #### 5 7021-8 #### [facility] CLIA [id number] [address] [place] [address] 35701 Differential cell count method Nom (Bld) Auto Normal [facility] Comment on above: Order Comment: Speci men Type: BLOOD SPECIMEN Ordering Facility: [facility] OBD[facility] MUSIC THERAP[facility] [place] Address: [address] [place] [address] Performed By: #### 5 7021-8 #### [facility] CLIA [id number] [address] [place] [address] 85730 Eosinophils (Bld) [#/Vol] 0.05 10*3/uL Normal <0.46 [facility] Comment on above: Order Comment: Speci men Type: BLOOD SPECIMEN [facility] [place] Address: [address] [place] [address] Performed By: #### 5 7021-8 #### [facility] CLIA [id number] [address] [place], [place] [address] Eosinophils/100 WBC (Bld) 0.7 % Normal [facility] Comment on above: Order Comment: Speci men Type: BLOOD SPECIMEN Ordering Facility: [facility] Address: [address] [place] [address] Performed By: #### 5 7021-8 #### [facility] CLIA [id number] [address] [place] [address] 23615 Erythrocyte distribution width (RBC) [Ratio] 12.9 % Normal 11.5-15.0 [facility] Comment on above: Order Comment: Speci men Type: BLOOD SPECIMEN Ordering Facility: [facility] Address: [address] [place] [address] Performed By: #### 5 7021-8 #### [facility] IA [id number] [address] [place], [place] [address] Hematocrit (Bld) [Volume fraction] 35.0 % Low 36.0-46.0 [facility] Comment on above: Order Comment: Speci men Type: BLOOD SPECIMEN [facility] [place] Address: [address] [place] [address] Performed By: #### 5 7021-8 #### [facility] CLIA [id number] [address] [place] [address] 67962 Hemoglobin (Bld) [Mass/Vol] 11.4 g/dL Low 11.5-15.5 [facility] Comment on above: Order Comment: Speci men Type: BLOOD SPECIMEN Ordering Facility: [facility] THER[facility] [place] Address: [address] [place] [id number] Performed By: #### 5 7021-8 #### [facility] CLIA [id number] [address] [place] [address] 25569 Immature granulocytes (Bld) [#/Vol] 10*3/uL Normal <0.10 [facility] Comment on above: Order Comment: Speci men Type: BLOOD SPECIMEN Ordering Facility: [facility] OB-DIRECT[facility] OF MUSIC THERAPY [place] Address: [address] [place] [id number] Performed By: #### 5 7021-8 #### [facility] CLIA [id number] [address] [place] [address] 32113 Immature granulocytes/100 WBC (Bld) 0.3 % Normal [facility] Comment on above: Order Comment: Speci men Type: BLOOD SPECIMEN Ordering Facility: [facility] Address: [address] [place] [id number] Performed By: #### 5 7021-8 #### [facility] CLIA [id number] [address] [place] [address] 17026 Lymphocytes (Bld) [#/Vol] 1.25 10*3/uL Normal 1.00-4.00 [facility] Comment on above: Order Comment: Speci men Type: BLOOD SPECIMEN Ordering Facility: [facility] Address: [address] [place] [id number] Performed By: #### 5 7021-8 #### [facility] CLIA [id number] [address] [place] [address] 02633 Lymphocytes/100 WBC (Bld) 18.3 % Normal [facility] Comment on above: Order Comment: Speci men Type: BLOOD SPECIMEN [facility] Address: [address] [address] Performed By: #### 5 7021-8 #### [facility] CLIA [id number] [address] [place] [address] 27647 MCH (RBC) [Entitic mass] 29.9 pg Normal 26.0-34.0 [facility] Comment on above: Order Comment: Speci men Type: BLOOD SPECIMEN Ordering Facility: [facility] Address: [address] [place] [address] Performed By: #### 5 7021-8 #### [facility] CLIA [id number] [address] [place] [address] 09230 MCHC (RBC) [Mass/Vol] 32.6 g/dL Normal 30.5-36.0 [facility] Comment on above: Order Comment: Speci men Type: BLOOD SPECIMEN Ordering Facility: [facility] Address: [address] [address] Performed By: #### 5 7021-8 #### [facility] CLIA [id number] [address] [place] [address] 81684 MCV (RBC) [Entitic vol] 91.9 fL Normal 80.0-100.0 [facility] Comment on above: Order Comment: Speci men Type: BLOOD SPECIMEN Ordering Facility: [facility] Address: [address] [place] [address] Performed By: #### 5 7021-8 #### [facility] CLIA [id number] [address] [place] [address] 91097 Monocytes (Bld) [#/Vol] 0.52 10*3/uL Normal <0.87 [facility] Comment on above: Order Comment: Speci men Type: BLOOD SPECIMEN [facility] Address: [address] [place] [id number] Performed By: #### 5 7021-8 #### [facility] CLIA [id number] [address] [place] [address] Monocytes/100 WBC (Bld) 7.6 % Normal [facility] Comment on above: Order Comment: Speci men Type: BLOOD SPECIMEN [facility] Address: [address] [place] [address] Performed By: #### 5 7021-8 #### [facility] CLIA [id number] [address] [place] [address] 18993 Neutrophils (Bld) [#/Vol] 4.94 10*3/uL Normal 1.45-7.50 [facility] Comment on above: Order Comment: Speci men Type: BLOOD SPECIMEN Ordering Facility: [facility] Address: [address] [place] [address] Performed By: #### 5 7021-8 #### [facility] CLIA [id number] [address] [place] [address] 04167 Neutrophils/100 WBC (Bld) 72.5 % Normal [facility] Comment on above: Order Comment: Speci men Type: BLOOD SPECIMEN Ordering Facility: [facility] Address: [address] [place] [id number] Performed By: #### 5 7021-8 #### [facility] CLIA [id number] [address] [place] [address] 11047 Nucleated RBC (Bld) [#/Vol] 10*3/uL Normal <0.01 [facility] Comment on above: Order Comment: Speci men Type: BLOOD SPECIMEN Ordering Facility: [facility] Address: [address] [place] [address] Performed By: #### 5 7021-8 #### [facility] CLIA [id number] [address] [place] [address] Nucleated RBC/100 WBC (Bld) [Ratio] 0.0 /100 WBC Normal [facility] Comment on above: Order Comment: Speci men Type: BLOOD SPECIMEN Ordering Facility: [facility] [place] Address: [address] [address] Performed By: #### 5 7021-8 #### [facility] CLIA [id number] [address] [place] [address] Platelet mean volume (Bld) [Entitic vol] 11.4 fL Normal 9.0-12.7 [facility] Comment on above: Order Comment: Speci men Type: BLOOD SPECIMEN Ordering Facility: [facility] [place] Address: [address] [address] Performed By: #### 5 7021-8 #### [facility] CLIA [id number] [address] [place] [address] Platelets (Bld) [#/Vol] 167 10*3/uL Normal 150-400 [facility] Comment on above: Order Comment: Speci men Type: BLOOD SPECIMEN Ordering Facility: [facility] OBDIRECTOR OF MUSIC THERAPY [place] Address: [address] [address] Performed By: #### 5 7021-8 #### [facility] CLIA [id number] [address] [place] [address] 42268 RBC (Bld) [#/Vol] 3.81 10*6/uL Low 3.90-5.20 [facility] Comment on above: Order Comment: Speci men Type: BLOOD SPECIMEN Ordering Facility: [facility] MUSIC THERAP[facility] [place] Address: [address] [place] [address] Performed By: #### 5 7021-8 #### [facility] CLIA [id number] [address] [place] [address] WBC (Bld) [#/Vol] 6.82 10*3/uL Normal 3.70-11.00 [facility] Comment on above: Order Comment: Speci men Type: BLOOD SPECIMEN Ordering Facility: [facility]ER[facility] [place] Address: [address] [address] Performed By: #### 5 7021-8 #### [facility] CLIA [id number] [address] [place] [address] 00577 GESTATIONAL GLUCOSE SCREEN, 1-HOUR, 50 GRAM, NON-FASTINGon 11-20-2023 Glucose [Mass/Vol] 97 mg/dL Normal 74-134 [facility] Comment on above: Order Comment: Tammy mares Type: BLOOD SPECIMEN Ordering Facility: [facility] OB-DIRECTOR OF MUSIC THERAPY [place] Address: [facility] [address] [place] [address] Result Comment: [facility] Congress of Obstetricians and Gynecologists (Alma/Adrián) guidelines state a gestational diabetes mellitus positive screen is made, in women not previously diagnosed with overt diabetes, when the 1 hr plasma glucose level is equal to or above 140 mg/dL. The [facility] Mid Level Practitioner and [facility] [place] recommends a 135 mg/dL cutoff. Performed By: #### G LTGST #### [facility] CLIA [id number] [address] [place] [address] [place] T4 Free SerPl-mCncon 024 Free T4 [Mass/Vol] 1.0 ng/dL Normal 0.9-1.7 [facility] Comment on above: Order Comment: Tammy mares Type: BLOOD SPECIMEN Ordering Facility: External Submitter Address: , , Performed By: #### 5 7021-8 #### [facility] CLIA [id number] [address] [place], [place] [address] TSH SerPl-aCncon 10-22-2023 TSH Qn 4.510 m[IU]/L High 0.270-4.200 [facility] Comment on above: Order Comment: Tammy mares Type: BLOOD SPECIMEN Ordering Facility: External Submitter Address: , , Result Comment: If t he patient is , TSH reference range varies by gestational period: First Trimester (weeks 9-12): 0.180-2.990 mIU/L Second Trimester: 0.110-3.980 mIU/L Third Trimester: 0.480-4.710 mIU/L maulik Keane al. A Practical Approach for the Verifications and Determination of Site- and Trimester-Specific Reference Intervals for Thyroid Function tests in . Thyroid, 2019:29:3:412-420. Emanuel Nassar, et al. 2017 Guidelines of the [place] Thyroid Association for the Diagnosis and Management of Thyroid Disease during and the . Thyroid, 2017:27:3:315-389. Performed By: #### 5 7021-8 #### [facility] CLIA [id number] [address] [place] [address] 40395 CBC W Auto Differential pane l (Bld)on 08-08-2023 Basophils (Bld) [#/Vol] 10*3/uL Normal <0.11 [facility] Comment on above: Order Comment: Speci men Type: BLOOD SPECIMEN Ordering Facility: External Submitter Address: , , Performed By: #### 5 7021-8 #### [facility] CLIA [id number] [address] [place] [address] 26224 Basophils/100 WBC (Bld) 0.3 % Normal [facility] Comment on above: Order Comment: Speci men Type: BLOOD SPECIMEN Ordering Facility: External Submitter Address: , , Performed By: #### 5 7021-8 #### [facility] CLIA [id number] [address] [place] [address] 09116 Differential cell count method Nom (Bld) Auto Normal [facility] Comment on above: Order Comment: Speci men Type: BLOOD SPECIMEN Ordering Facility: External Submitter Address: , , Performed By: #### 5 7021-8 #### [facility] CLIA [id number] [address] [place] [address] 51453 Eosinophils (Bld) [#/Vol] 0.06 10*3/uL Normal <0.46 [facility] Comment on above: Order Comment: Speci men Type: BLOOD SPECIMEN Ordering Facility: External Submitter Address: , , Performed By: #### 5 7021-8 #### [facility] CLIA [id number] [address] [place] [address] 73008 Eosinophils/100 WBC (Bld) 0.9 % Normal [facility] Comment on above: Order Comment: Speci men Type: BLOOD SPECIMEN Ordering Facility: External Submitter Address: , , Performed By: #### 5 7021-8 #### [facility] CLIA [id number] [address] [place] [address] 17049 Erythrocyte distribution width (RBC) [Ratio] 13.7 % Normal 11.5-15.0 [facility] Comment on above: Order Comment: Speci men Type: BLOOD SPECIMEN Ordering Facility: External Submitter Address: , , Performed By: #### 5 7021-8 #### [facility] CLIA [id number] [address] [place] [address] 81578 Hematocrit (Bld) [Volume fraction] 40.1 % Normal 36.0-46.0 [facility] Comment on above: Order Comment: Speci men Type: BLOOD SPECIMEN Ordering Facility: External Submitter Address: , , Performed By: #### 5 7021-8 #### [facility] CLIA [id number] [address] [place] [address] 75080 Hemoglobin (Bld) [Mass/Vol] 13.4 g/dL Normal 11.5-15.5 [facility] Comment on above: Order Comment: Speci men Type: BLOOD SPECIMEN Ordering Facility: External Submitter Address: , , Performed By: #### 5 7021-8 #### [facility] CLIA [id number] [address] [place] [address] 59556 Immature granulocytes (Bld) [#/Vol] 10*3/uL Normal <0.10 [facility] Comment on above: Order Comment: Speci men Type: BLOOD SPECIMEN Ordering Facility: External Submitter Address: , , Performed By: #### 5 7021-8 #### [facility] CLIA [id number] [address] [place] [address] 74866 Immature granulocytes/100 WBC (Bld) 0.3 % Normal [facility] Comment on above: Order Comment: Speci men Type: BLOOD SPECIMEN Ordering Facility: External Submitter Address: , , Performed By: #### 5 7021-8 #### [facility] CLIA [id number] [address] [place] [address] 30222 Lymphocytes (Bld) [#/Vol] 1.67 10*3/uL Normal 1.00-4.00 [facility] Comment on above: Order Comment: Speci men Type: BLOOD SPECIMEN Ordering Facility: External Submitter Address: , , Performed By: #### 5 7021-8 #### [facility] CLIA [id number] [address] [place] [address] 62473 Lymphocytes/100 WBC (Bld) 24.9 % Normal [facility] Comment on above: Order Comment: Speci men Type: BLOOD SPECIMEN Ordering Facility: External Submitter Address: , , Performed By: #### 5 7021-8 #### [facility] CLIA [id number] [address] [place] [address] 32782 MCH (RBC) [Entitic mass] 31.1 pg Normal 26.0-34.0 [facility] Comment on above: Order Comment: Speci men Type: BLOOD SPECIMEN Ordering Facility: External Submitter Address: , , Performed By: #### 5 7021-8 #### [facility] CLIA [id number] [address] [place] [address] 37369 MCHC (RBC) [Mass/Vol] 33.4 g/dL Normal 30.5-36.0 [facility] Comment on above: Order Comment: Speci men Type: BLOOD SPECIMEN Ordering Facility: External Submitter Address: , , Performed By: #### 5 7021-8 #### [facility] CLIA [id number] [address] [place] [address] 74270 MCV (RBC) [Entitic vol] 93.0 fL Normal 80.0-100.0 [facility] Comment on above: Order Comment: Speci men Type: BLOOD SPECIMEN Ordering Facility: External Submitter Address: , , Performed By: #### 5 7021-8 #### [facility] CLIA [id number] [address] [place] [address] Monocytes (Bld) [#/Vol] 0.50 10*3/uL Normal <0.87 [facility] Comment on above: Order Comment: Speci men Type: BLOOD SPECIMEN Ordering Facility: External Submitter Address: , , Performed By: #### 5 7021-8 #### [facility] CLIA [id number] [address] [place] [address] 96280 Monocytes/100 WBC (Bld) 7.5 % Normal [facility] Comment on above: Order Comment: Speci men Type: BLOOD SPECIMEN Ordering Facility: External Submitter Address: , , Performed By: #### 5 7021-8 #### [facility] CLIA [id number] [address] [place] [address] 08906 Neutrophils (Bld) [#/Vol] 4.44 10*3/uL Normal 1.45-7.50 [facility] Comment on above: Order Comment: Speci men Type: BLOOD SPECIMEN Ordering Facility: External Submitter Address: , , Performed By: #### 5 7021-8 #### [facility] CLIA [id number] [address] [place] [address] 15405 Neutrophils/100 WBC (Bld) 66.1 % Normal [facility] Comment on above: Order Comment: Speci men Type: BLOOD SPECIMEN Ordering Facility: External Submitter Address: , , Performed By: #### 5 7021-8 #### [facility] CLIA [id number] [address] [place] [address] 96373 Nucleated RBC (Bld) [#/Vol] 10*3/uL Normal <0.01 [facility] Comment on above: Order Comment: Speci men Type: BLOOD SPECIMEN Ordering Facility: External Submitter Address: , , Performed By: #### 5 7021-8 #### [facility] CLIA [id number] [address] [place] [address] 44473 Nucleated RBC/100 WBC (Bld) [Ratio] 0.0 /100 WBC Normal [facility] Comment on above: Order Comment: Speci men Type: BLOOD SPECIMEN Ordering Facility: External Submitter Address: , , Performed By: #### 5 7021-8 #### [facility] CLIA [id number] [address] [place] [address] 26565 Platelet mean volume (Bld) [Entitic vol] 12.1 fL Normal 9.0-12.7 [facility] Comment on above: Order Comment: Speci men Type: BLOOD SPECIMEN Ordering Facility: External Submitter Address: , , Performed By: #### 5 7021-8 #### [facility] CLIA [id number] [address] [place] [address] 85697 Platelets (Bld) [#/Vol] 148 10*3/uL Low 150-400 [facility] Comment on above: Order Comment: Speci men Type: BLOOD SPECIMEN Ordering Facility: External Submitter Address: , , Performed By: #### 5 7021-8 #### [facility] CLIA [id number] [address] [place] [address] 70592 RBC (Bld) [#/Vol] 4.31 10*6/uL Normal 3.90-5.20 [facility] Comment on above: Order Comment: Speci men Type: BLOOD SPECIMEN Ordering Facility: External Submitter Address: , , Performed By: #### 5 7021-8 #### [facility] CLIA [id number] [address] [place] [address] 81455 WBC (Bld) [#/Vol] 6.71 10*3/uL Normal 3.70-11.00 [facility] Comment on above: Order Comment: Speci men Type: BLOOD SPECIMEN Ordering Facility: External Submitter Address: , , Performed By: #### 5 7021-8 #### [facility] CLIA [id number] [address] [place] [address] 35705 HBV surface Ag Ser Qlon 04- HBV surface Ag Ql (S) Negative Normal Negative [facility] Comment on above: Order Comment: Speci men Type: BLOOD SPECIMEN Ordering Facility: External Submitter Address: , , Performed By: #### 5 7021-8 #### [facility] CLIA [id number] [address] [place], [place] [address] HCV Ab Ser Qlon 08-08-2023 HCV Ab Ql (S) Negative Normal Negative [facility] Comment on above: Order Comment: Specbertha mares Type: BLOOD SPECIMEN Ordering Facility: External Submitter Address: , , Result Comment: The result suggests no evidence of active infection with Hepatitis C virus. Should recent infection be suspected, repeat testing may be considered 4-6 weeks after this draw. Performed By: #### 1 6128-1 #### [facility] CLIA [id number] [address] [place] [address] [place] HIV 1+2 Ab IA Qlon HIV 1 and 2 Ab IA.rapid Nom (S/P/Bld) Normal [facility] Comment on above: Order Comment: Tammy mares Type: BLOOD SPECIMEN Ordering Facility: External Submitter Address: , , Result Comment: Test not indicated. Performed By: #### 5 7021-8 #### [facility] CLIA [id number] [address] [place], [place] [address] HIV 1+2 Ab+HIV1 p24 Ag IA Ql Non-Reactive Normal Nonreactive [facility] Comment on above: Order Comment: Tammy mares Type: BLOOD SPECIMEN Ordering Facility: External Submitter Address: , , Performed By: #### 5 7021-8 #### [facility] CLIA [id number] [address] [place], [place] [address] HIV immunoassay testing algorithm interpretation (S/P/Bld) [Interp] Normal [facility] Comment on above: Order Comment: Tammy mares Type: BLOOD SPECIMEN Ordering Facility: External Submitter Address: , , Result Comment: No e vidence of HIV-1 or HIV-2 infection. Should recent infection be suspected, repeat testing may be considered 2-3 weeks after this draw. [place] Rev. Code 3701.243(E): This information has been [...] diagnoses. Performed By: #### 5 7021-8 #### [facility] CLIA [id number] [address] [place] [address] HbA1c (Bld)on 08-08-2023 Average glucose Estimated from glycated hemoglobin (Bld) [Mass/Vol] 105 mg/dL Normal [facility] Comment on above: Order Comment: Specbertha mares Type: BLOOD SPECIMEN Ordering Facility: External Submitter Address: , , Result Comment: eAG: (Estimated average glucose) is a calculated value from HgbA1c and is industrial relations representative of the average blood glucose level in the last 2-3 month period. Performed By: #### 5 5454-3 #### [facility] CLIA [id number] [address] [place] [address] [place] HbA1c (Bld) [Mass fraction] 5.3 % Normal 4.3-5.6 [facility] Comment on above: Order Comment: [...] diabetes. Performed By: #### 5 5454-3 #### [facility] CLIA [id number] [address] [place] [address] [place] RPR Ser Qlon 08-08-2023 Reagin Ab RPR Ql (S) Non-Reactive Normal Nonreactive [facility] Comment on above: Order Comment: Speci men Type: BLOOD SPECIMEN Ordering Facility: [facility]IC [facility]ERAP[facility] Ketan Address: [address] [place] [address] [address], [place] [address] Result Comment: Rapi d plasma reagin (RPR) test detects non-treponemal antibodies. RPR may be reactive in a variety of infectious and non-infectious conditions. Correlation with clinical picture and with treponemal antibody results is required for final interpretation. Performed By: #### G LTGST #### [facility] CLIA [id number] [address] OF [place] RUBELLA IGG ANTIBODYon 08-07 RUBELLA IGG AB, QUAL Positive Normal Positive [facility] Comment on above: Order Comment: Speci men Type: BLOOD SPECIMEN [facility] OB-DIRECT[facility] OF MUSIC THERAPY [place] Address: [address] [place] [address] [address], [place] [address] Result Comment: The result suggests recent or past exposure to Rubella virus or history of Rubella vaccination. Positive result may also be seen due to presence of passively-transferred antibodies. Please correlate with patient's history. Performed By: #### G LTGST #### [facility] CLIA [id number] [facility] [address] [place] TYPE + SCREENon 08-08-2023 ABO A Normal [facility] Comment on above: Order Comment: Speci men Type: BLOOD SPECIMEN Ordering Facility: External Submitter Address: , , Performed By: #### T SCR #### [facility] CLIA [id number] [address] [place] [address] OF [place] HISTORICAL AB SCR STATUS Negative Normal [facility] Comment on above: Order Comment: Speci men Type: BLOOD SPECIMEN Ordering Facility: External Submitter Address: , , Performed By: #### T SCR #### [facility] CLIA [id number] [facility] [address] STATES [place] Rh Nom (Bld) Positive Normal [facility] Comment on above: Order Comment: Speci men Type: BLOOD SPECIMEN Ordering Facility: External Submitter Address: , , Performed By: #### T SCR #### [facility] CLIA [id number] [facility] [place] [id number] [facility] OF [place] TYPE AND SCREEN EXPIRATION 08/11/2023 23:59 Normal [facility] Comment on above: Order Comment: Tammy mares Type: BLOOD SPECIMEN Ordering Facility: External Submitter Address: , , Performed By: #### T SCR #### [facility] CLIA [id number] [address] [place] [id number] [facility] OF [place] B-HCG SerPl-aCncon 4 HCG.beta subunit Qn m[IU]/mL Normal <5.0 [facility] Comment on above: Order Comment: Tammy mares Type: BLOOD SPECIMEN Ordering Facility: External Submitter Address: , , Result Comment: Dianne logan Performed By: #### 5 7021-8 #### [facility] CLIA [id number] [address] [place], [place] [address] [employer] 05-16-2023 CNPN Telephone (HEMASA) JESSEE ALMODOVAR ([id number]) 1990 [facility] Date Time Provider Department 05/16/23 RONI DUMAS HEMJUDSON During your visit today, we recorded the following information about you: Allergies As of Date: 05/16/2023 (No Known Allergies) Date Reviewed: 04/11/2023 Reviewed by: Macy Jones APRN.FRONT END TECHNICIAN - Fully Assessed Reason for Visit: Lab Orders [1688] Primary Visit Diagnosis:Possible , not confirmed [Z32.00] Order(s):HCG QUANTITATIVE [SQHCGQT] Order #: [id number] FUTURE Prescriptions as of 05/16/2023 - doxycycline [...] hip [M25.551, G89.29] 02/25/2023 Encounter Status:Closed by ABHYANKAR, RONI on 05/16/23 Normal [facility] TOX SCREEN ROUT URon 024 Amphetamines Confirm (U) [Mass/Vol] Negative Normal Negative [facility] Comment on above: Order Comment: Speci men Type: BLOOD SPECIMEN [facility] Address: [facility] [address] [address] Result Comment: Cuto ff threshold at 1000 ng/mL. Performed By: #### G LTGST #### [facility] CLIA [id number] [address] [place] [address] [place] BARBITURATES, URINE Negative Normal Negative [facility] Comment on above: Order Comment: Speci men Type: BLOOD SPECIMEN [facility] Address: [facility] [place] [address] Result Comment: Cuto ff threshold at 200 ng/mL. Performed By: #### G LTGST #### [facility] [facility] CLIA [id number] [address] [place] [address] [place] BENZODIAZEPINES, UR Negative Normal Negative [facility] Comment on above: Order Comment: Speci men Type: BLOOD SPECIMEN Ordering Facility: [facility] Address: [facility] [place] [address] Result Comment: Cuto ff threshold at 200 ng/mL. Performed By: #### G LTGST #### [facility] CLIA [id number] [address] [place] [address] [place] Cannabinoids Screen Ql (U) Negative Normal Negative [facility] Comment on above: Order Comment: Speci men Type: BLOOD SPECIMEN Ordering Facility: [facility] Address: [facility] [address] [address] Result Comment: Cuto ff threshold at 50 ng/mL. Performed By: #### G LTGST #### [facility] CLIA [id number] [address] [place] [address] [place] Cocaine Ql (U) Negative Normal Negative [facility] Comment on above: Order Comment: Speci men Type: BLOOD SPECIMEN Ordering Facility: [facility] OB-DIRECTOR OF MUSIC THERAPY [place] Address: [facility] [address] [address] Result Comment: Cuto ff threshold at 300 ng/mL. Performed By: #### G LTGST #### [facility] CLIA [id number] [address] [place] [address] [place] Ethanol (U) [Mass/Vol] <11 Normal <11 [facility] Comment on above: Order Comment: Speci men Type: BLOOD SPECIMEN Ordering Facility: [facility] OB-DIRECTOR OF MUSIC THERAPY [place] Address: [facility] [address] [place] [address] Performed By: #### G LTGST #### [facility] CLIA [id number] [facility] [place] [address] [place] Opiates Screen Ql (U) Negative Normal Negative [facility] Comment on above: Order Comment: Speci men Type: BLOOD SPECIMEN Ordering Facility: [facility] Address: [facility] [place] [address] Result Comment: Cuto ff threshold at 300 ng/mL. Performed By: #### G LTGST #### [facility] CLIA [id number] [address] [place] [address] [place] oxyCODONE cutoff Screen (U) [Mass/Vol] Negative Normal Negative [facility] Comment on above: Order Comment: Speci men Type: BLOOD SPECIMEN Ordering Facility: [facility] Address: [facility] [place] [address] Result Comment: Cuto ff threshold at 100 ng/mL. Performed By: #### G LTGST #### [facility] CLIA [id number] [address] [place] [address] [place] Phencyclidine Ql (U) Negative Normal Negative [facility] Comment on above: Order Comment: Speci men Type: BLOOD SPECIMEN Ordering Facility: [facility] OB-DIRECTOR OF MUSIC THERAPY [place] Address: [address] [place], [place] [address] [place] [address] Result Comment: Cuto ff threshold at 25 ng/mL. Performed By: #### G LTGST #### [facility] CLIA [id number] [address] [facility] [place] [address] [place] B-HCG SerPl-aCncon 4 HCG.beta subunit Qn m[IU]/mL Normal <5.0 [facility] Comment on above: Order Comment: Tammy mares Type: BLOOD SPECIMEN Ordering Facility: External Submitter Address: , , Result Comment: Dianne logan Performed By: #### 5 [id number] #### [facility] CLIA [id number] [address] [place] [address] CNOVon 02-25-2023 CNOV Office Visit (ORTHMN ) JESSEE ALMODOVAR ([id number]) 1990 [facility] Date Time Provider Department 02/25/23 1:00 [...] a (more content not included)... Normal [facility] XR HIP 3V PELV+ AP/LAT [...] any questions regarding this interpretation, please call [phone]. If you are unable to reach us at the number above, please feel free to contact [facility] at [phone]. [id number] Normal [facility] XR Pelvis and Hip - [...] any questions regarding this interpretation, please call [phone]. If you are unable to reach us at the number above, please feel free to contact [facility] at [phone]. DIVISION OF RADIOLOGY * * *Final Report* [...] hip are unremarkable. DIVISION OF RADIOLOGY Provider, [facility] - 02/20/2023 * * *Final Report* [...] any questions regarding this interpretation, please call [phone]. If you are unable to reach us at the number above, please feel free to contact [facility] eRadiology at [phone]. [facility] Radiology Study observation (narrative) [facility] XR Pelvis and Hip - right AP and Lateral frogOrdered By: Ccf Provider on 02-20-[address] 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 Basophils/100 WBC (Bld) 0.8 % [facility] Differential cell count method Nom (Bld) Auto [facility] Eosinophils (Bld) [#/Vol] 0.11 10*3/uL <0.46 k/uL [facility] Eosinophils/100 WBC (Bld) 2.1 % [facility] Erythrocyte distribution width (RBC) [Ratio] 13.7 % 11.5 - 15.0 % [facility] Hematocrit (Bld) [Volume fraction] 46.7 % High 36.0 - 46.0 % [facility] Hemoglobin (Bld) [Mass/Vol] 15.6 g/dL High 11.5 - 15.5 g/dL [facility] Immature granulocytes (Bld) [#/Vol] <0.10 k/uL [facility] Immature granulocytes/100 WBC (Bld) 0.2 % [facility] Lymphocytes (Bld) [#/Vol] 1.77 10*3/uL 1.00 - 4.00 k/uL [facility] Lymphocytes/100 WBC (Bld) 33.7 % [facility] MCH (RBC) [Entitic mass] 31.8 pg 26.0 - 34.[address] [facility] MCHC (RBC) [Mass/Vol] 33.4 g/dL 30.5 - 36.0 g/dL [facility] MCV (RBC) [Entitic vol] 95.3 fL 80.0 - 100.[address] [facility] Monocytes (Bld) [#/Vol] 0.64 10*3/uL <0.87 k/uL [facility] Monocytes/100 WBC (Bld) 12.2 % [facility] Neutrophils (Bld) [#/Vol] 2.68 10*3/uL 1.45 - 7.50 k/uL [facility] Neutrophils/100 WBC (Bld) 51.0 % [facility] Nucleated RBC (Bld) [#/Vol] <0.01 k/uL [facility] Nucleated RBC/100 WBC (Bld) [Ratio] 0.0 /[address] [facility] Platelet mean volume (Bld) [Entitic vol] 11.3 fL 9.0 - 12.[address] [facility] Platelets (Bld) [#/Vol] 154 10*3/uL 150 - 400 k/uL [facility] RBC (Bld) [#/Vol] 4.90 10*6/uL 3.90 - 5.2 0 m/uL [facility] WBC (Bld) [#/Vol] 5.25 10*3/uL 3.70 - 11. 00 k/uL [facility] CBC W Auto Differential pane l (Bld)on 08-09-2022 Basophils (Bld) [#/Vol] 0.03 10*3/uL <0.11 k/uL [facility] Basophils/100 WBC (Bld) 0.6 % [facility] Differential cell count method Nom (Bld) Auto [facility] Eosinophils (Bld) [#/Vol] 0.05 10*3/uL <0.46 k/uL [facility] Eosinophils/100 WBC (Bld) 0.9 % [facility] Erythrocyte distribution width (RBC) [Ratio] 13.6 % 11.5 - 15.0 % [facility] Hematocrit (Bld) [Volume fraction] 42.0 % 36.0 - 46.0 % [facility] Hemoglobin (Bld) [Mass/Vol] 13.5 g/dL 11.5 - 15.5 g/dL [facility] Immature granulocytes (Bld) [#/Vol] <0.10 k/uL [facility] Immature granulocytes/100 WBC (Bld) 0.4 % [facility] Lymphocytes (Bld) [#/Vol] 1.57 10*3/uL 1.00 - 4.00 k/uL [facility] Lymphocytes/100 WBC (Bld) 29.0 % [facility] MCH (RBC) [Entitic mass] 30.5 pg 26.0 - 34.[address] [facility] MCHC (RBC) [Mass/Vol] 32.1 g/dL 30.5 - 36.0 g/dL [facility] MCV (RBC) [Entitic vol] 94.8 fL 80.0 - 100.[address] [facility] Monocytes (Bld) [#/Vol] 0.47 10*3/uL <0.87 k/uL [facility] Monocytes/100 WBC (Bld) 8.7 % [facility] Neutrophils (Bld) [#/Vol] 3.27 10*3/uL 1.45 - 7.50 k/uL [facility] Neutrophils/100 WBC (Bld) 60.4 % [facility] Nucleated RBC (Bld) [#/Vol] <0.01 k/uL [facility] Nucleated RBC/100 WBC (Bld) [Ratio] 0.0 /[address] [facility] Platelet mean volume (Bld) [Entitic vol] 11.1 fL 9.0 - 12.[address] [facility] Platelets (Bld) [#/Vol] 145 10*3/uL Low 150 - 400 k/uL [facility] RBC (Bld) [#/Vol] 4.43 10*6/uL 3.90 - 5.2 0 m/uL [facility] WBC (Bld) [#/Vol] 5.41 10*3/uL 3.70 - 11. 00 k/uL [facility] XR Pelvis and Hip [...] any questions regarding this interpretation, please call [phone]. If you are unable to reach us at the number above, please feel free to contact [facility] eRadiology at [phone]. DIVISION OF RADIOLOGY * * *Final Report* [...] interval. DIVISION OF RADIOLOGY Provider, Tom Salinas [facility] - 08/01/2022 * * *Final Report* * [...] any questions regarding this interpretation, please call [phone]. If you are unable to reach us at the number above, please feel free to contact [facility] eRadiology at [phone]. [facility] Radiology Study observation (narrative) [facility] XR Pelvis and Hip - right AP and Lateral frogOrdered By: Ccf Provider on 08-01-[address] [facility] Ambulatory Visit Summaryon 0 05-26-2022 Ambulatory [...] Up with CHELSEA KRAUS DO When: Where: [facility] [address] [place] [address]- Medications What How Much When Why Instructions New amoxicillin (amoxicillin 500 mg Cap) 1 Capsules By Mouth Every 12 hours Strep pharyngitis Duration: 10 Days Pickup at [facility] 1985 Unchanged biotin Contact prescribing [...] physician if questions or concerns Pharmacy Information [facility] 1986: [address] [facility] [place], [place] [phone] Allergies No Known Allergies Problems Ongoing - [...] these instructions at home: Medicines ? Take gkmi-oyt-cskpbrz and prescription medicines only as told by [...] cup (more content not included)... 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 No azqk-vds-xmylcsh medications today. Review of Systems PHQ Score [...] day(s), # 20 cap(s), Refills(s) 0, Pharmacy: [facility] 1985, 172, cm, 05/26/22 9:34:00 [...] Acute pharyngitis, unspecified) Ordered: Rapid Strep POC 95201 Follow-up With When Contact Information CHELSEA KRAUS DO [facility] [address] [place] [address]- Additional Instructions: Patient Education Strep Throat, Adult, Euna-gf-Xvmf BMI for Adults Problem List/Past Medical History [...] Strep POC Result: Positive (05/26/22 09:56:00) Normal [facility] Comment on above: Result Comment: Elec tronically Signed By: DIMITRI ACEVES, Roxanne Villareal\.shelley\Date and Time Signed: 05/26/22 10:07 EST Patient [...] these instructions at home: Medicines ? Take howc-gse-lyuprwz and prescription medicines only as told by [...] 09/23/2008 Document Revised: 06/25/2019 Document Reviewed: 06/25/2019 [employer] Patient Education ? 2020 [employer]. Nutrition BMI for Adults Body mass index (BMI) is a number that is calculated from a person's weight and height. BMI may help to estimate how much of a person's weight is composed of fat. BMI can help identify those who may be (more content not included)... Normal [facility] Coding Summary.on 02-26-2022 Coding Summary. [id number] Gh0 bWw+PGhlYWQ+OZ9FUIVlF60 wnTQlxF9LH0vLFF5XTMUCAM PTAR2LCR9raMN8BYbnV1Rwf iAv ThdpnLPnKR91KHa9QPN9aGc dDTqxwM3tdCZzB4s1DlSxMO 03yU65RDgsCPQpMuP6ArLhx jsgbWFy N6tuLvWrwBLbCow+PHRhYmx lIHdpZHRoPScxMDAlJyBzdH nlZW3mDd4lPHUsTYTkpYjqw HNlOiBj p3pbYDSlEFhhYY1tuOpxZ4O vlLN7AJLqd3l9Ff10zVP+PH JbTLE2jUvjZSlox979EsQov 2hcXQA8 aMUyPOgwKAV5L83um2O7VSM qQVGaUUL3rHB7tI4rrXhwde axK1RgrRJuYbB1TGZ4qQDvu M2zzKoj mdwipV3mRxq+O18IGA7XUZF RJZ9SJmu5B6AiOhzaoVQ+PC 64YZLiQE06hZGpaAQhe4fyo Pf5YoIl LUAwJNX0cGwiVKaic8KnHBI kH86ohTHle2B5PQDjzYhfnV FlRjMxwBI3aT7xZPukdhdgk 2hvdzsn Nwtnl5shiz52eN93N34lUBu wFWUxHPF9XNPiTXChyFqres 5meE8dTs4+LEkhu8vhu6cbl Ud7CtZj PCRubeZcfWxdAER6a1PyGk1 1K5CndNocj7KaBfe3zw41qW Dpe3R4yQH1HOxvXBThtJ7lT WxlZnQ6 BZNoClXsnN51aFPwVMlbLx7 eySsqvCbuET0hKLYyaenfDH MwnU5kMGStqEDozUyyID9lP TBpbjtm b610NxGqOWZ7UIKowLDrB7W kmZ8aHoNgKMTbIMKeP6GmkV PvLJnwK730AVmaVwB4NNKur oOqP8Iu YNRbmYlfKsP2n7R4Ao3Dh2G hwthwCJW1QTqfAPNiOxK1Zs GbFrO1Y3RjLcr8BYEzeWygR I1cQ4Pu PBGcgrrgxqinbVD5YDWuWYN qxH62lXQkGNiaFj1yd9L9u2 79LPOdFGMmpK98Uw8uvFxdF TBwdCBU mP0hvboxq1bbdlkjXjYzQYS fZQs4VLb4YHHykFlbIeMsZI S7CfF0LDD6iORuwA0fpPbog luzwH2g Oyc+R57cfY2sFAR5YCI3bgi pZCRmsaQoMY91GW44L2MxYx wvdGFibGU+PGRpdiBzdHlsZ O8mAsWb d2axz7RrZBctB0NcBECbOYp lMma7UZRcERJ7wTV7xH8tME XvHIuge7Z5mJT0Y1VcbwAam x9fp3zi BQJfJWwrU39epLCam0Q9IVN brKH7DLFibXafMsSajO97Ra c+YJTiuMvpm5MaKwzpv7cxy 5ulkRi1 IuFcMBKeydOdkIvlVJK7j2G tSo52P86sIUvdARLhIXBaCE DcLBRcrOlmut6zsT9yUb7+P GNvbCB3 sAI1eV0gUDAlDrN5XVxmT47 1RgFuiJNdGpvns2sfz5dtgR c5ZeEnTSQyqkCafVerBLF9o 1NbCe80 A00wGZzkKKPkBIYxLOMzRJY pgYtnsk8fyE4sXl7+PC9jb2 nizi11nY86bXQ+UZZuTKA0f WxlPSdw AOFsnY2eQOyzErT2DBDzNyT egH88kASiLHsuIv4pgDqycN mtVA3jPMAnrxlqf013HmOcy 2xkIDEw sNWeBMwqWFI8T77lw6N5TYL zNYTuIVN5qNZ6jX4ulNfwtr ogbGVmdDsgdmVydGljYWwtY FiuR542 IHRvcDsnPlBhdGllbnQgTmF eRHt0N1XrDgf6YQAprNkgLG 9zsHZyRDvyUz8toEjmdQezE E7kVGHy bbrur466ZwIlx6iyYCRtoQH dQSsbHCK7U58pf1S5MMOnOA BeXRM7lKA7rC3ceGvsllrtm GVmdDsg kcLkaFnnRGwkEJqoF190JYH gyXtwWwFyflQiEEBxdGD9KR 08PP67eRFfg5A1sLA3Z0RcT GRpbmct yrehqGF4TITyPUXsrG06Lb7 qcMvnBq7yZVVdXVC4BPMxiU GsZ5QwmU2vCbUtHXMtKWYvV 3RleHQt DUarZ885VQxjOiE6OCOvzbO eG1JyZNDbuHmaOlF6i3D9Zs 0TT0F9AG31ZH46dXQtg6J1z WS8Z3Vx LMXvukxtawdpsSY2ZIAxJJY epZ30Ts1onZhiNi6oQDIoFO B2FMSlzUJdD4MxqI4pZoWjP DAwMDAw C1JbbBQhWPkaN391XOehAhC 9MWQcmnIlS0MmFVWsgPuaNc A9d7X1Hw6IDCx1FP76IR87b EKhs9I6 eKT0W5OnZGHkeshidznuoBD 6MKGjLSVerF87Qe2diRvsNk 5qDZOvFZM7FXDcwNPvL4Nmg O7wJeDx ASDcNJLaK9LkeOTmKGkgD20 7YMdaJoN9PTSpceByX5ErEM WkkCsnIbS9d3T1Yi0IRTOdO L50ZKU1 wNB0QT21KO60D4FeAhwkjEQ ibGU+PHRhYmxlIHdpZHRoPS xrXHUhAuWroRexGC6gRc3fE GVyLWNv iTvzmQQwPqXvy6nrJHSkONv aVK2qeInbM0QtlMF0PXAna2 h4Ex38P99tT1OrsDE+PGNvb DC1rKS8 sI5cBsPoBqA7MOtuU873HbQ pyWRhDyhur5yrx0bsaMh6Xs M1FDYrpcTkuDofZHL3a2TeM n82J55g IHdpZHRoPSIxNSUiIHZhbGl lmy4ksD8fDq3+DQCvbIY4yD I7kA3bGoFiPkO2CYvwL155C nRvcCIv Iyuzn1xut4kebMv1WtOcUYF viuNviQpfHJZ8b6AwIa67Y7 VppExhm8PuMip1nq47kHAsq 9F1lXS5 X0XfLHFixczyhLOizNnySQ6 zVFRacidpPFHssT8eSEPgP4 q6XfAtPhR2ZYlcF0WgeuC1W DEwcHQg PTnjENY0J54pl2R7JAFhIFE hWIT0wFW3iR5waUatrnofdA VmdDsgdmVydGljYWwtYWxpZ 246IHRv vCebHPFzgO2fZJQtxMMmuXl nDH8lTFNpsifbKcnQDBfCSW oOLhljKMFWDO77T5XjKep3C CBzdHls GO8fnLTkZYyuNn2soUjbqLc nAL9aCARhsaliWDWynF4lZC EdxZXbbRghNP4hSWUkdfkcd 250OiAx QUY1DKCysSUjP8ZpzM0zEcD zRZEwDWOxZ2UzeVGxYWjnF3 30CYieOxC6VZOabyLvR0JvT WFsaWdu ZbF2i6D1Jc5aPI7fPX3lZRv pJP20WG58pLFea9P3gXA1H6 VzUPEakssegatplCQ8NQAqN DUwaW47 sLVqMZckPo5gk7M0d113ESC pSEAqlP91Tp1ozTlcDFPiwP RWzM6cvosrz5nrpittZuVuM DAwMDt0 LXj5HQRxzBdaGxSgKXU3YsG 0FWN4iBDoiB6ycTdtwhxauA 9wOyc+JePtIHCcxxK9E2OtZ qq3UCOi pIdqRR5nrOVqRCwtTg0yfAz kbSpfET9mGSUpszqsIAHksY 1oAELbwICguPgcPW6dBHZsb ekyn008 MjIbJRB5KLOuvCGoN6WytG5 yOwZvAVXwVATwT8TzfIMeCY gkW409GEqpCgQ5QHYxgoXlO 2FsLWFs uRzbOdW7k4V2Nn8LLK0mtBS 9E1AkTbo5RCHzyVmiDC4vcM NdSXtrDb5xgVwrlDlsEP1rW TBpbjtw PAXraH7mLESdfHWlxVobIC5 wAPEtzhnds677GjNrWIS8IP DlvLYzS0QxmH0hMpWbNJAcR FDpV4Es lCSgKCyxB209CWqrLeA4DBP xvkJvT0QlIKWvzMnwSqO3t3 V2Hl4FjWTiR0ZoH7x0T6ZoB jwvdHI+ TB72GXDgGV20dWWtcRSjd0s rsIo4QkNbOBLvUNF6oIpnQD cwo0YeDKYnQ77tjIMao4J3V GNvbGxh gTEbQvBdrXQ4rN8pAIrgjqj fh0dmupwaOkkpl6wmtv68xT 55X84iLIwlQWHzNRYkFLIiL HZhbGln zt2oiB5xWa2+BFDzyRO9hGF 9iN0nViKeGxT3LFosE970De BjkBTaOeokz2vgm8ecnLm6C jIwJSIg tfArbUllKKP6p8CkJo52M83 sIHdpZHRoPSIyMCUiIHZhbG ihow0csS5eYw9+UZ3xa0rct k34gG58 dHI+BVBrJTD0gOodEUtrMQB khW1wXUkoJjV8MQYpLpTsjQ 95rUYhCMzfZm8ubEjunZrpL Z8pRUEh vegii033FyYhj0ilHWUagML jJKvdWNN9S77wp2R9LDRvIW XyRKJ5fUY6sK7lrBjflhupu GVmdDsg fyHouLcfYMyoQAevM759SKD psHtuWrLzrURwR8fuilBBMY 1lOjwvdGQ+ELSwTQY8eBgfC SdwYWRk pF5cKFJxZ1j7EnPxJgK5KOr bK8KkxkT1ULTxwZNmMXHnkE WWxZ7ffmexd3iwjcvgNcMpT DAwMDt0 SJf6TAEpeNchKoBaYCS9KxL 5SLT1hKQnnW5fkVakzjxhmT 9wOyc+RklOOjwvdGQ+PHRkI IX1hUqp EQmmXEBfyX8wYQJyA4b3DkN tEuJ3LAwqK8CevqW1EVNisD GhJHCjkZPXqF2nskzfg1mxy jogIzAw PCMrMWo2OFi3WFEdoGuoOcF jQYX9XqB1SDI5aDCggR5jeS ohckmnnU3xVcj+TVJOOjwvd GQ+PHRk FME7vGbnKDrkWADxjJ7qHRT cJ5x1NkAxYaE9LNqbC9Xxxd J0YMAzoMImQMNdaTSWjK9ps uiqs4bu vqcsYyKuJATfSZt1XSm5JOF tfRfpDaQnAWN1ByO6CNF6zH AyiF0jcTjfoeyeeY3hLai+U MN1JDD8 CV06DF28W0RiRdarlVRbzAF +PHRhYmxlIHdpZHRoPScxMD ZiChZdkIliYZ0kRj0yNOEfK WNvbGxh cHNl (more content not included)... Normal [facility] Discharge Instructionson Discharge Instructions [id number] CD:127 Normal [facility] ED Clinical Summaryon 2021 ED Clinical Summary [address] [address] ED Clinical Summary Person Information Name: JESSEE ALMODOVAR/Mindy Age: 32 Years : 1990 Sex: Female Language: Cambodian PCP: Marital Status: Phone: [phone] Visit Id: Visit Reason: Foot pain-swelling; HURT [...] 02/23/2022 11:07:01 02/23/2022 11:07:01 ADDRESS: [place] [id number] PHYS DOC NOTES: MEDICAL INFORMATION: Prescriptions Given: PATIENT EDUCATION INFORMATION: Instructions: Foot Sprain; How to Use Cold Therapy, Vfcy-ch-Sejs; Elastic Bandage and RICE Therapy Follow up: With: Address: When: [facility], [address] [place], [place] [id number] [facility] () In 3 days 02/26/2022 Comments: Follow-up with your primary care provider in 3 to 5 days. If symptoms worsen, do not improve, or new symptoms arise please report back to emergency department for further evaluation. DIAGNOSIS: Sprain of left foot Normal [facility] ED Note-Physicianon 02-24-20 ED Note-Physician [...] [facility] [address] [place], [place] [id number] Business (1) Additional Instructions: Follow-up with your primary care provider in 3 to 5 days. If symptoms worsen, do not improve, or new symptoms arise please report back to emergency department for further evaluation. Patient Education Foot Sprain How to Use Cold Therapy, Clzb-at-Xlbx Elastic Bandage and RICE Therapy Attestation Patient seen and evaluated by the physician bilingual office assistant. Attending physician was present in the emergency department and supervised care. This visit was performed by both the physician and an APC. I performed all aspects of the MDM as documented. This report was transcribed using voice recognition software. Every effort was made to ensure accuracy, however, inadvertently computerized quality systems technician mistakes may be present. Appropriate healthcare [...] medications Ho (more content not included)... Normal [facility] Comment on above: Result Comment: Elec tronically Signed By: Mohan Garcia PA-C.shelley\Date and Time Signed: 02/23/22 13:47 EDT\.br\Electronically Co-Signed [...] This may take several hours. ? Take zzhx-fjn-isxhihf and prescription medicines only as told by [...] is no (more content not included)... Normal [facility] ED Patient Summaryon ED Patient Summary (Inserted Image. Kelsi ble to display) [address] [address] Patient Discharge Instructions Person Information Name: JESSEE ALMODOVAR Age: 32 Years Arrival Date: 02/23/2022 09:05:13 Discharge Diagnosis: Sprain of left foot Primary Care Physician: Provider Information Primary Provider: Chayo Anne DO [employer] Supervisor:None The exam and treatment you received in the Emergency Department were for an urgent problem and are not intended as complete care. It is important that you follow up with a doctor, nurse practitioner, or physician?s bilingual office assistant for ongoing care. If your symptoms become worse or you do not improve as expected and you are unable to reach your usual health care provider, you should return to the Emergency Department. We are available 24 hours a day. JESSEE ALMODOVAR has been given the following list of patient education materials, prescriptions and follow-up instructions: Follow-up Instructions: With: Address: When: [facility], [address] [place] [id number] Business (1) In 3 days 02/26/2022 [...] Foot Sprain; How to Use Cold Therapy, Cely-zq-Rnxr; Elastic Bandage and RICE Therapy A MESSAGE TO ALL PATIENTS REGARDING OPIOIDS PRESCRIPTION OPIOIDS: WHAT YOU NEED TO KNOW Prescription opioids can be used to help relieve iexzuxie-tz-uwwngz pain and are often prescribed following a [...] Visit www.cdc.gov/ (more content not included)... Normal [facility] XR Foot 3+ Views Lefton [...] DO Transcribed by: SUZY Technologist: TIM Normal [facility] XR Pelvis and Hip [...] any questions regarding this interpretation, please call [phone]. If you are unable to reach us at the number above, please feel free to contact [facility] e[facility] at [phone]. DIVISION OF RADIOLOGY * * *Final Report* [...] joint appears preserved. DIVISION OF RADIOLOGY Provider, [facility] - 02/19/2022 * * *Final Report* [...] any questions regarding this interpretation, please call [phone]. If you are unable to reach us at the number above, please feel free to contact [facility] at [phone]. [facility] XR Pelvis and Hip - right AP and Lateral frogOrdered By: Ccf Provider on 02-19-[address] [facility] XR Pelvis and Hip - right AP and Lateral frogon 02-18-2022 Radiology Study observation (narrative) [facility] CT ABD/PELV W CONon 02-12-20 CT [...] by: EMELIA STEWART Date: 2022-02-11 07:23 Normal [facility] US PELVIS AND TRANSVAGon US PELVIS AND [...] by: JENNIFER HARTLEY Date: 2022-01-08 14:12 Normal [facility] UA DIP, URINE (POC)on 2021 BILIRUBIN UA (POCT) Negative Negative [facility] CLARITY UA (POCT) Cloudy [facility] COLOR UA (POCT) Yellow [facility] GLUCOSE UA (POCT) Negative Negative mg/dL [facility] HEMOGLOBIN/BLOOD UA (POCT) Trace-intact Abnormal Negative [facility] KETONE UA (POCT) Negative Negative mg/dL [facility] LEUKOCYTES UA (POCT) Small Abnormal Negative [facility] NITRITE UA (POCT) Negative Negative [facility] PH UA (POCT) 6.5 4.5 - 8.[address] [facility] Protein Ql (U) Negative Negative mg/dL [facility] SPECIFIC GRAVITY UA (POCT) 1.015 1.005 - 1.[address] [facility] [facility] UROBILINOGEN UA (POCT) 0.2 E.U./dL Normal E.U./dL [facility] Large Joint Arthro/Inj: R gr eater trochanteric bursa [facility] Vital Signs Date Time Vital Sign Value Performing Clinician Facility 02-18-2024 10:23-0400 Body mass index (BMI) [Ratio] 30.42 kg/m2 Franny COSTELLO Work Phone: [facility] 02-18-2024 10:23-0400 Body weight 103.15 kg Franny COSTELLO Work Phone: [facility] 02-18-2024 10:23-0400 Diastolic blood pressure 68 mm[Hg] Franny COSTELLO Work Phone: [facility] 02-18-2024 10:23-0400 Systolic blood pressure 112 mm[Hg] Franny COSTELLO Work Phone: [facility] 02-10-2024 13:39-0400 Body mass index (BMI) [Ratio] 29.83 kg/m2 Guillaume Pedro DO Work Phone: [facility] 02-10-2024 13:39-0400 Body weight 101.15 kg Guillaume Pedro DO Work Phone: [facility] 02-10-2024 13:39-0400 Diastolic blood pressure 70 mm[Hg] Guillaume Pedro DO Work Phone: [facility] 02-10-2024 13:39-0400 Systolic blood pressure 120 mm[Hg] Guillaume Pedro DO Work Phone: [facility] 01-27-2024 10:17-0400 Body mass index (BMI) [Ratio] 29 kg/m2 Franny COSTELLO Work Phone: [facility] 01-27-2024 10:17-0400 Body weight 98.34 kg Franny COSTELLO Work Phone: [facility] 01-27-2024 10:17-0400 Diastolic blood pressure 60 mm[Hg] Franny COSTELLO Work Phone: [facility] 01-27-2024 10:17-0400 Systolic blood pressure 110 mm[Hg] Franny COSTELLO Work Phone: [facility] 02-25-2023 13:16-0500 Body height 185.4 cm Rosas Mckinney MD Work Phone: [facility] 02-25-2023 13:16-0500 Body weight 76.67 kg Rosas Mckinney MD Work Phone: [facility] 07-10-2022 15:15-0400 Body height 181.61 cm Imad Asaad Other [facility] 07-10-2022 15:15-0400 Body mass index (BMI) [Ratio] 24.48 kg/m2 Imad Asaad [facility] 07-10-2022 15:15-0400 Body weight 80.74 kg Imad Asaad [facility] 07-10-2022 15:15-0400 Diastolic blood pressure 78 mm[Hg] Imad Asaad [facility] 07-10-2022 15:15-0400 Systolic blood pressure 130 mm[Hg] Imad Asaad [facility] Other 05-26-2022 09:29-0500 Blood Pressure Location Roxanne [facility] 05-26-2022 09:29-0500 Body temperature 98.42 [degF] Roxanne [facility] 05-26-2022 09:29-0500 Diastolic blood pressure 78 mm[Hg] Roxanne MOS[facility] 05-26-2022 09:29-0500 Heart rate 115 /min Roxanne MOSLEY [facility] 05-26-2022 09:29-0500 SaO2% (BldA) [Mass fraction] 98 % Roxanne MOSLEY [facility] 05-26-2022 09:29-0500 Systolic blood pressure 120 mm[Hg] Roxanne MOSLEY [facility] 02-23-2022 09:10-0400 Body temperature 98.42 [degF] Chayo Anne [facility] 02-23-2022 09:10-0400 Diastolic blood pressure 67 mm[Hg] Chayo Anne [facility] 02-23-2022 09:10-0400 Heart rate 88 /min Chayo Anne [facility] 02-23-2022 09:10-0400 Respiratory rate 18 /min Chayo Anne [facility] 02-23-2022 09:10-0400 SaO2% (BldA) [Mass fraction] 98 % Chayo Anne [facility] 02-23-2022 09:10-0400 Systolic blood pressure 141 mm[Hg] Chayo Anne [facility] Encounters Encounter Date Encounter Type Care Provider Facility Start: 02-24-2024 End: 02-24-2024 Clinisync Result Encounter Guillaume Pedro DO Work Phone: [facility] Unsolicited Start: 02-24-2024 End: 02-24-2024 Clinisync Result Encounter Guillaume Pedro DO Work Phone: [facility] Unsolicited Start: 02-23-2024 End: 02-23-2024 Clinisync Result Encounter Guillaume Pedro DO Work Phone: [facility] Unsolicited Start: 02-23-2024 End: 02-23-2024 Clinisync Result Encounter Guillaume Pedro DO Work Phone: [facility] Unsolicited Start: 02-18-2024 End: 02-18-2024 Bamboo flowsheet Franny COSTELLO Work Phone: [facility] Start: 02-18-2024 End: 02-18-2024 Bamboo flowsheet Franny COSTELLO Work Phone: [facility] Start: 02-18-2024 End: 02-18-2024 ambulatory FRANNY HAGER Not Available Start: 02-18-2024 End: 02-18-2024 flow sheet Franny Hager PA Work Phone: [facility] Comment on [...] Start: 02-05-2024 End: 02-05-2024 ambulatory ANUPAMA BROWN Facility:[facility] Start: 01-27-2024 End: 01-27-2024 Bamboo [...] Start: 01-19-2024 End: 01-19-2024 ambulatory ANUPAMA BROWN Facility:[facility] Start: 01-13-2024 End: 01-13-2024 ambulatory GUILLAUME PEDRO Not Available Start: 01-05-2024 End: 01-05-2024 ambulatory ANUPAMA BROWN Facility:[facility] Start: 12-30-2023 End: 12-30-2023 ambulatory GUILLAUME PEDRO Not Available Start: 12-16-2023 End: 12-16-2023 ambulatory GUILLAUME PEDRO Not Available Start: 12-08-2023 End: 12-08-2023 ambulatory GUILLAUME R PEDRO Facility:[facility] Start: 11-20-2023 End: 11-20-2023 ambulatory FRANNY L KIN Facility:[facility] Start: 11-18-2023 End: 11-18-2023 ambulatory FRANNY KIN Not Available Start: 10-22-2023 End: 10-22-2023 ambulatory GUILLAUME R PEDRO Facility:[facility] Start: 10-21-2023 End: 10-21-2023 ambulatory GUILLAUME PEDRO Not Available Start: 10-16-2023 End: 10-16-2023 ambulatory [facility] Start: 09-24-2023 End: 09-24-2023 ambulatory FRANNY KIN Not Available Start: 08-26-2023 End: 08-26-2023 ambulatory GUILLAUME PEDRO Not Available Start: 08-08-2023 End: 08-08-2023 ambulatory ANUPAMA BROWN Facility:[facility] Start: 07-24-2023 End: 07-24-2023 ambulatory GUILLAUME PEDRO Not Available Start: 06-04-2023 End: 06-04-2023 ambulatory ASIF [facility] Start: 06-02-2023 End: 06-02-2023 Phys/qhp telephone evaluation 5-10 min Guillaume Velasquezo DO Work Phone: [facility] Comment on above: Irregular menses (Pr imary Dx) Start: 06-02-2023 End: 06-02-2023 ambulatory GUILLAUME PEDRO Not Available Start: 05-28-2023 Chart abstracting Guillaume Velasquezo DO Work Phone: [facility] Start: 05-16-2023 End: 05-16-2023 ambulatory ANUPAMA BROWN Facility:[facility] Start: 05-05-2023 End: 05-05-2023 ambulatory ANUPAMA DANIELLE HENDRICKSKER Facility:[facility] Start: 05-02-2023 End: 05-02-2023 ambulatory ASIF [facility] Start: 05-02-2023 End: 05-02-2023 Office outpatient visit 25 minutes Asif Schaefer PUNCH MOLDER-FRONT END TECHNICIAN Work Phone: [facility] Comment on above: Attention deficit hy peractivity disorder (ADHD), predominantly inattentive type (Primary Dx); Moderate episode of recurrent major depressive disorder ([facility]); Generalized anxiety disorder Start: 03-04-2023 End: 03-04-2023 ambulatory GUILLAUME VASQUEZ Not Available Start: 02-25-2023 End: 02-25-2023 ambulatory ANUPAMA BROWN Facility:[facility] Start: 02-25-2023 End: 02-25-2023 Office outpatient visit 25 minutes Rosas Mckinney MD Work Phone: Orthopaedics Comment on above: Lytic bone lesion of femur (Primary Dx); Greater trochanteric bursitis of right hip; Chronic pain of right hip; Chronic low back pain, unspecified back pain laterality, unspecified whether sciatica present; Pain of right hip; Bone lesion Start: 02-20-2023 End: 02-20-2023 ambulatory ANUPAMA BROWN Facility:[facility] Start: 02-20-2023 End: 02-20-2023 Subsequent [...] 07-10-2022 End: 07-10-2022 ambulatory Imad Asaad Other [facility] Start: 07-10-2022 Office outpatient ne w 45 minutes Imad Asaad [facility] Start: 05-26-2022 End: 05-27-2022 ambulatory Roxanne MOSLEY Facility:[facility] Start: 05-26-2022 End: 05-26-2022 Patient encounter procedure Roxanne MOSLEY [facility] Start: 05-08-2022 End: 05-08-2022 ambulatory PRAVIN HAGER Facility: Start: 02-26-2022 End: 02-26-2022 Patient encounter procedure Rosas Mckinney MD Work Phone: Orthopaedics Comment on above: Lytic bone lesion of femur (Primary Dx) Start: 02-23-2022 End: 02-23-2022 Emergency department patient visit Chayo Anne Facility:[facility] Start: 02-23-2022 End: 02-23-2022 Emergency department patient visit Chayo Dayana [facility] Start: 02-18-2022 End: 02-18-2022 Subsequent [...] Dx) Start: 10-04-2021 Orders Only Macy Jones APRN.FRONT END TECHNICIAN Work Phone: Hematology/Oncology Comment on above: Acute bilateral low back pain with bilateral sciatica (Primary Dx) Procedures Date Procedure Procedure Detail Performing Clinician Start: 02-24-2024 ALL CBC WITH AUTO DIFF Guillaume Pedro DO Work Phone: Start: 02-23-2024 HMHP CBC WITH PLATEL ET NO DIFFERENTIAL Guillaume Pedro DO Work Phone: Start: 02-10-2024 Urnls dip stick/tabl et rgnt non-auto w/o micrscp Guillaume Pedro DO Work Phone: Start: 01-27-2024 Urnls dip [...] CC MAIN BLOOD BANK [facility] [id number] [place] Start: 02-25-2023 Arthrocentesis aspir &/inj major jt/bursa w/o us Tiana Cronin PA-C Work Phone: Start: 02-20-2023 Radex hip unilateral with pelvis 2-3 views Roni Dumas MD Work Phone: Start: 08-08-2022 Adult depression scr eening assessment Asif Schaefer PUNCH MOLDER-FRONT END TECHNICIAN Work Phone: Start: 08-01-2022 Radex hip unilateral [...] Td Vaccines (4 - Td or Tdap) [facility] Start: 01-04-2030 Urine microalbumin profile DTa P,Tdap,Td Vaccine (4 - Td or Tdap) [facility] Start: 10-20-2028 Screening for malign ant neoplasm of cervix [facility] Start: 04-06-2024 End: 04-06-2024 ambulatory 04/06/2024 9:30 AM EST Visit [facility] [address] [place] [place] [id number] Franny Hager PA [address] [place], [place] [id number] [facility] Start: 03-10-2024 Tobacco Screening Tobacco Screening [facility] Start: 02-23-2024 Screening for malign ant neoplasm of cervix [facility] Start: 02-18-2024 End: 02-18-2024 Patient encounter procedure 02/18/2024 9:40 AM EDT Routine [facility] [address] [place] [place] [phone] Franny Hager PA [address] [place], [place] [id number] [facility] Start: 02-10-2024 End: 02-09-2025 Strep B DNA probe, amplification Strep B DNA probe, amplification Lab Routine Third trimester Expected: 02/10/2024 (Approximate), Expires: 02/09/2025 [facility] Work Phone: Comment on above: Expected: 02/10/2024 (Approximate), Expires: 02/09/2025 Start: 02-10-2024 End: 02-10-2024 Patient encounter procedure 02/10/2024 1:00 PM EDT Routine [facility] [address] [place] [phone] Guillaume Vasquez DO [address] [place], [place] [id number] [facility] Start: 12-21-2023 Covid-19 Vaccine ( season) Covid-19 Vaccine ( season) [facility] Start: 12-21-2023 Covid-19 Vaccine () Covid-19 Vaccine ( season) [facility] Start: 12-21-2023 Influenza vaccination Influenza Vacc ine (#1) [facility] Start: 08-09-2023 Adult BMI Screening Adult BMI Screen ing [facility] Start: 08-09-2023 Depression Screening Depression Scre ening [facility] Start: 05-29-2023 End: 05-29-2023 Patient encounter procedure 05/29/2023 8:10 AM EST Office Visit [facility] [address] [place] [place] [address] Guillaume Vasquez, DO [address] [place] [address] Irregular menses [facility] Comment on above: Irregular menses Start: 12-20-2022 Covid-19 Vaccine ( season) Covid-19 Vaccine ( season) [facility] Start: 12-20-2022 Influenza vaccination INFLUENZA (#1) [facility] Start: 11-15-2022 End: 01-15-2023 Comprehensive metabolic 2000 panel - Serum or Plasma [facility] Work Phone: Comment on above: Expected: 11/15/2022 , Expires: 01/15/2023 Start: 11-15-2022 End: 01-15-2023 Lipid 1996 panel - Serum or Plasma [facility] Work Phone: Comment on above: Expected: 11/15/2022 , Expires: 01/15/2023 Start: 11-15-2022 End: 01-15-2023 T4/FTI/T4U [facility] Work Phone: Comment on above: Expected: 11/15/2022 , Expires: 01/15/2023 Start: 11-15-2022 End: 01-15-2023 Thyrotropin [Units/volume] in Serum or Plasma [facility] Work Phone: Comment on above: Expected: 11/15/2022 , Expires: 01/15/2023 Start: 08-26-2022 End: 03-28-2023 XR HIP GENERAL 3V PELV/AP/LAT RIGHT XR HIP GENERAL 3V PELV/AP/LAT RIGHT Radiology Routine Lytic bone lesion of femur Expected: 08/26/2022, Expires: 03/28/2023 [facility] Work Phone: Comment on above: Expected: 08/26/2022 , Expires: 03/28/2023 Start: 08-09-2022 End: 10-09-2022 25-hydroxyvitamin D3 [Mass/volume] in Serum or Plasma [facility] Work Phone: Comment on above: Expected: 08/09/2022 , Expires: 10/09/2022 Start: 04-21-2022 DEPRESSION ASSESSMENT DEPRESSION ASS ESSMENT [facility] Start: 12-20-2021 Influenza vaccination INFLUENZA (#1) [facility] Start: 12-06-2021 End: 02-05-2022 Thyrotropin [Units/volume] in Serum or Plasma [facility] Work Phone: Comment on above: Expected: 12/06/2021 , Expires: 02/05/2022 Start: 12-06-2021 End: 02-05-2022 Thyroxine (T4) free [Mass/volume] in Serum or Plasma [facility] Work Phone: Comment on above: Expected: 12/06/2021 , Expires: 02/05/2022 Start: 12-06-2021 End: 02-05-2022 Triiodothyronine (T3) [Mass/volume] in Serum or Plasma [facility] Work Phone: Comment on above: Expected: 12/06/2021 , Expires: 02/05/2022 Start: 11-08-2021 End: 01-08-2022 Choriogonadotropin ( test) [Presence] in Urine [facility] Work Phone: Comment on above: Expected: 11/08/2021 , Expires: 01/08/2022 Start: 11-08-2021 End: 01-08-2022 URINALYSIS, REFLEX MICROSCOPIC [facility] Work Phone: Comment on above: Expected: 11/08/2021 , Expires: 01/08/2022 Start: 04-21-2021 DEPRESSION ASSESSMENT DEPRESSION ASS ESSMENT [facility] Start: 2021 HPV TESTING HPV TESTING [facility] Start: 10-13-2020 COVID-19 VACCINE (3 - Booster for Moderna series) COVID-19 VACCINE (3 - Booster for Moderna series) [facility] Start: 07-10-2020 COVID-19 VACCINE (3 - Booster for Moderna series) COVID-19 VACCINE (3 - Booster for Moderna series) [facility] Start: 07-10-2020 COVID-19 VACCINE (3 - Moderna series) COVID-19 VACCINE (3 - Moderna series) [facility] Start: 02-08-2012 PAP TESTING PAP TESTING [facility] Start: 02-08-2012 Screening for malign ant neoplasm of cervix [facility] Start: 2010 Urine microalbumin profile DTA P,TDAP,TD (1 - Tdap) [facility] Start: 2009 Anxiety Screening Anxiety Screening [facility] Start: 2009 Depression Screening Depression Scre ening [facility] Start: 2009 HEPATITIS C SCREENING HEPATITIS C SC REENING [facility] Start: 2009 HIV SCREENING HIV SCREENING [facility] Start: 2003 Adult depression scr eening assessment DEPRESSION SCREENING [facility] Start: 1997 Pneumococcal vaccination [facility] Start: 1991 HEPATITIS B (1 of 3 - 3-dose series) HEPATITIS B (1 of 3 - 3-dose series) [facility] Bacteria identified in Urine by Culture URINE CULTURE Microbiology Routine Pelvic pain 11/08/2021 11:36 AM EDT [facility] Work Phone: End: 06-02-2023 Drug Screen, Urine Drug Screen, Urine Lab Routine Attention deficit hyperactivity disorder (ADHD), predominantly inattentive type 1 Occurrences starting 05/02/2023 until 06/02/2023 [facility] Work Phone: Comment on above: 1 Occurrences starti ng 05/02/2023 until 06/02/2023 End: 03-26-2024 MRI HIP WO IVCON RIGHT MRI HIP WO IVCON RIGHT Radiology Routine Greater trochanteric bursitis of right hip Chronic pain of right hip Pain of right hip Bone lesion 1 Occurrences starting 02/25/2023 until 03/26/2024 [facility] Work Phone: Comment on above: 1 Occurrences starti ng 02/25/2023 until 03/26/2024 End: 03-18-2024 XR HIP GENERAL 3V PELV/AP/LAT RIGHT XR HIP GENERAL 3V PELV/AP/LAT RIGHT Radiology Routine Lytic bone lesion of femur 1 Occurrences starting 02/17/2023 until 03/18/2024 [facility] Work Phone: Comment on above: 1 Occurrences starti ng 02/17/2023 until 03/18/2024 [facility] Immunizations Immunization Date Immunization Notes Care Provider [facility] 01-28-2023 influenza virus vaccine, unspecified formulation Roni Dumas MD Work Phone: [facility] 02-14-2022 influenza virus vaccine, unspecified formulation Rosas Mckinney MD Work Phone: [facility] 01-18-2021 influenza virus vaccine, unspecified formulation Macy Jones APRN.CNP Work Phone: [facility] 03-01-2020 influenza, seasonal, injectable Imad Asaad Other [facility] 02-03-2016 influenza, injectable, quadrivalent, contains preservative Imad Asaad [facility] Other NEGATED: Highlighted row has not occurred!03-02-2019 influenza, seasonal, injectable Imad Asaad Other [employer] Other Payers Date Payer Category Payer Private Health Insurance [employer] [id number] 2018 Unknown [id number] 1991 Unknown [id number] 2.16.840.1.682384.3.579.2. 593 1991 Unknown [id number] 2.16.840.1.519083.3.579.2. 593 1991 Unknown [id number] 2.16.840.1.463235.3.579.2. 593 1991 Unknown [id number] 2.16.840.1.510536.3.579.2. 727 1991 Unknown [id number] 2.16.840.1.666889.3.579.2. 727 1991 Unknown [id number] 2.16.840.1.634873.3.579.2. 1286 1991 Unknown [id number] 2.16.840.1.885275.3.579.2. 1286 1991 Unknown [id number] 2.16.840.1.435177.3.579.2. 1286 1991 Unknown [id number] 2.16.840.1.427198.3.579.2. 1286 1991 Unknown [id number] 2.16.840.1.835855.3.579.2. 1259 1991 Unknown [id number] 2.16.840.1.334967.3.579.2. 1259 1991 Unknown [id number] 2.16.840.1.744006.3.579.2. 1259 1991 Unknown [id number] 2.16.840.1.024621.3.579.2. 1259 1991 Unknown [id number] 2.16.840.1.095239.3.579.2. 1259 1991 Unknown [id number] 2.16.840.1.632061.3.579.2. 1259 1991 Unknown [id number] 2.16.840.1.021720.3.579.2. 1259 1991 Unknown [id number] 2.16.840.1.957436.3.579.2. 9 1991 Unknown [id number] 2.16.840.1.687127.3.579.2. 1259 1991 Unknown [id number] 2.16.840.1.982033.3.579.2. 9 1991 Unknown [id number] 2.16.840.1.431216.3.579.2. 1259 1991 Unknown [id number] 2.16.840.1.925521.3.579.2. 1259 1991 Unknown [id number] 2.16.840.1.383432.3.579.2. 1259 1959 Unknown [id number] Social History Date Type Detail Facility Tobacco smoking stat [facility] Tobacco smoking consumption unknown [facility] Work Phone: Start: 1990 Sex Assigned At Not on file [facility] Start: 10-29-2021 End: 02-26-2022 Exposure to SARS-CoV-2 (event) Not sure [facility] Start: 03-21-2013 End: 10-21-2023 Tobacco smoking status Ex-smoker (finding) [facility] Comment on above: quit 01/2013 Start: 02-26-2022 End: 10-21-2023 Sex Assigned At Female [facility] History of tobacco use Current smoker [facility] History of tobacco use Cigarette Smoker [facility] History of tobacco use Passive smoker [facility] Start: 02-11-2022 End: 10-21-2023 Tobacco use and exposure Smokeless tobacco non-user [facility] Start: 02-11-2022 End: 02-26-2022 Alcohol intake Current drinker of alcohol (finding) [facility] Tobacco smoking status Never [facility] Start: 02-26-2022 End: 10-21-2023 History of Social function [facility] Start: 02-25-2023 End: 05-28-2023 Tobacco smoking status NHIS Occasional tobacco smoker [facility] Start: 08-08-2022 Alcohol Comment on the weekends [facility] Start: 05-28-2023 Alcohol Comment caffeine: 2-3 cups per day coffee; soda [facility] Start: 01-13-2024 End: 02-18-2024 Alcoholic beverage intake Ex-drinker (finding) [facility] Start: 06-19-2023 [facility]care Functional Status Date Assessment Result Facility 05-26-2022 Functional Status N/A [facility] 02-23-2022 Functional Status N/A [facility] Clinical Notes 08-20-2015 to 02-18-2024 PRAVIN Dumont [...] of: PRAVIN Dumont documented in this encounter [facility] 02-10-2024 History of Present illness Narrative Reason [...] nursing note reviewed. Exam conducted with a marine service operator present. Vitals: Estimated body mass index is [...] Guillaume Vasquez DO documented in this encounter [facility] 01-27-2024 History of Present illness Narrative Reason [...] nursing note reviewed. Exam conducted with a marine service operator present. Vitals: Estimated body mass index is [...] of: PRAVIN Dumont documented in this encounter [facility] 06-02-2023 History of Present illness Narrative Reason for Appointment: Patient ID: Jessee Almodovar is a 33 y.o. female who presents for No chief complaint on file. Patient presents today via telephone call for a telehealth appointment. Patients Phone #: [phone] (mobile) Current Medications: has a current medication [...] or as needed. Will consider referral to [facility] clinic in future Documented by Guillaume Vasquez DO on behalf of: Guillaume Vasquez DO documented in this encounter [facility] 05-02-2023 Miscellaneous Notes [address] [facility] [address] Patient: Jessee Almodovar Date of : 1990 Encounter Date: 05/02/2023 History of Present Illness/Psychiatric Review of Symptoms/Medical Review of Systems: Video Visit via Real-time Synchronous Audiovisual Provider [facility] [address] [place] [address] Patient Location: patient's office in [place], [place] Video Visit Consent Statement: I discussed [...] that there are some limitations compared to [id number] evaluations. The patient consented to the presence of additional virtual and/or in-person participants. We elected to proceed. Jessee is a 33 y.o. female, established patient, and is logged on via Flynn for a follow-up video visit. HPI: Jessee reports she is feeling about the same since last visit. She was unable to tell the difference between taking the immediate release Adderall. She expresses frustrations with still feeling easily distractible. She has had a lot going on since the holidays. She enjoyed Gina and new year's with her immediate family. She traveled to [place] to see her parents, which went well. [...] Moderate episode of recurrent major depressive disorder ([facility]) Generalized anxiety disorder Attention deficit [...] Moderate episode of recurrent major depressive disorder ([facility]) Generalized anxiety disorder Medication Changes: [...] Leon 05/02/23 [id number] documented in this encounter [facility] 05-02-2023 Progress note Formatting of t his note is different from the original. [address] [facility] [address] Patient: Jessee Almodovar Date of : 1990 Encounter Date: 05/02/2023 History of Present Illness/Psychiatric Review of Symptoms/Medical Review of Systems: Video Visit via Real-time Synchronous Audiovisual [facility] [address] [place] [address] Patient Location: patient's office in [place], [place] Video Visit Consent Statement: I discussed [...] that there are some limitations compared to aouj-kp-hgvw evaluations. The patient consented to the presence of additional virtual and/or in-person participants. We elected to proceed. Jessee is a 33 y.o. female, established patient, and is logged on via Flynn for a follow-up video visit. HPI: Jessee reports she is feeling about the same since last visit. She was unable to tell the difference between taking the immediate release Adderall. She expresses frustrations with still feeling easily distractible. She has had a lot going on since the holidays. She enjoyed [place] and new year's with her immediate family. She traveled to [place] to see her parents, which went well. [...] CNP, PMHNP-BC. BARAK De Leon 05/02/23 1746 [facility] 02-25-2023 Instructions Tiana Cronin PA-C - 02/25/2023 1:56 PM EST Images from the original note were not included. MRI right hip Home exercises Continue with NSAIDS CSI right hip- may repeat in 3 months if needed documented in this encounter [facility] 02-25-2023 Note HNO ID: [id number] Author: Rosas Mckinney MD Service: ? Author [...] from AAOS (more content not included)... [facility] 02-25-2023 History of Present illness [...] trochanteric bursa Informed Consent Consent Obtained: Verbal [place] Protocol A moment to CARE was completed. [...] Time: 10:49 PM documented in this encounter [facility] 02-20-2023 History of Present illness Narrative [...] 2023 8:45 AM documented in this encounter [facility] 02-20-2023 Note HNO ID: [id number] Author: Kathrine Smith RT(R) Service: ? Author [...] Francisco(R) February 20, 2023 8:45 AM [facility] 02-17-2023 Miscellaneous Notes Jourdan Wilbert, My MA Karyna is having quite a bit of pain and dysfunction in the right hip. Most days in the mornings especially, are excruciating for her and she's unable to sleep on her right side. Would you mind to see her again please? I can get additional imaging first, if you'd like. Thanks, Td. documented in this encounter [facility] 08-01-2022 History of Present illness Narrative [...] 2022 9:04 AM documented in this encounter [facility] 07-10-2022 Evaluation note Encounter Date Diagnosis Assessment Notes Jun, Constipation (ICD-10 - K59.00) Jun, Change in bowel habits (ICD-10 - R19.4) Jun, Diarrhea (ICD-10 - R19.7) Patient to start Align probiotic. Jun, Bloating (ICD-10 - R14.0) [facility] Other 02-05-2023 Hospital Discharge instructions Patient Education 05/26/2022 10:06:58 Strep Throat, Adult, Veau-jf-Ecyt Strep Throat, Adult Strep throat is an [...] Follow these instructions at home: Medicines Take ftos-eea-ryphctq and prescription medicines only as told by [...] 09/23/2008 Document Revised: 06/25/2019 Document Reviewed: 06/25/2019 [employer] Patient Education 2020 [employer]. 05/26/2022 10:06:56 BMI for Adults BMI for [...] height. This can be done either in Cambodian ([place] or metric measurements. Note that charts are available to help you find your BMI quickly and easily without having to do these calculations yourself. To calculate your BMI in Cambodian ([place] measurements, your health care provider will: [...] medical problems. BMI can be measured using Cambodian measurements or metric measurements. To interpret your [...] 12/17/2004 Document Revised: 03/20/2018 Document Reviewed: 02/18/2018 [employer] Patient Education 2020 [employer]. Follow Up Care 05/26/2022 09:09:50 With:CHELSEA KRAUS DO Address: [facility] [address] [place] [address]- When: Unknown [facility] 11-08-2022 History of Present illness [...] she has undergone a workup with her career technical education instructor. She states she underwent a CT scan [...] abdominal pain with planned GI followup, as retail parts pro workup so far is unremarkable. Patient does [...] being sent back to Roni Dumas via facsLOAGe/ThreatTrack Security Camera Systems Engineer or Chart CC for [facility] Providers. Rosas Mckinney MD Spin Instructor, Orthopaedic Surgery Division of Musculoskeletal Oncology [facility] Evaluation + Plan note Extracted from: Title:ED Note Author:Jose BALL, Mohan Diamond te:02/23/22 Sprain of left foot (S93.602 A: Unspecified sprain of left foot, initial encounter) Orders: Crutches Elastic Bandage Application XR Foot 3+ Views Left [facility]11-05-2022 Hospital Discharge instructions Patient Education [...] fully hardened. This may takeseveral hours. Take yfaa-rua-wsmzhyi and prescription medicines only as told by [...] 09/27/2002 Document Revised: 04/11/2018 Document Reviewed: 04/11/2018 [employer] Patient Education 2020 [employer]. 02/23/2022 11:07:01 How to Use Cold Therapy, Jyci-bp-Hmpg How to Use Cold Therapy Cold therapy, [...] 09/23/2008 Document Revised: 01/04/2019 Document Reviewed: 01/04/2019 [employer] Patient Education 2020 [employer]. 02/23/2022 11:07:01 Elastic Bandage and RICE Therapy [...] limityour activities and whether you should start ijzbm-kl-eswgfb exercises for your injury. Ice Ice your [...] 09/27/2002 Document Revised: 12/26/2017 Document Reviewed: 12/26/2017 [employer] Patient Education 2020 [employer]. Follow Up Care 02/23/2022 09:05:48 With:CHELSEA KRAUS Address: [place] [address] [place] [address]- Business (1) When:02/26/2022 10:46:43 Comments:Follow-up with your primary care provider in 3 to 5 days. If symptoms worsen, do not improve, or new symptoms arise please report back to emergency department for further evaluation. [facility]10-31-2022 History of Present illness Narrative* Kathrine Smith [...] 18, 2022 3:09 PM documented in this [facility]07-21-2022 Nurse Note* Lillie Smith - 11/08/2021 11:25 AM EDT UA performed as ordered. Lillie Smith [facility] History of Present illness Narrative* Macy Jones APRN.CNP - 10/04/2021 3:36 PM EDT Physical [facility] History general Narrative - Reported* Type Description Date Medical History Bernardo's thyroiditis Medical History Post- depression 2019 Surgical History D & C d/t miscarriage 08/2015 Surgical History LEEP 2012 Hospitalization History child [facility] Other Evaluation note* Diagnosis Acute bilateral low back pain with bilateral sciatica- Primary [facility]* Diagnosis Pelvic pain- Primary documented in this encounter [facility] note* Diagnosis Dysuria- Primary documented in this encounter [facility] note* Diagnosis Dysuria- Primary documented in this encounter [facility] note* Diagnosis Unspecified hypothyroidism- Primary documented in this encounter [facility] note* Diagnosis Lytic bone lesion of femur- Primary documented in this encounter [facility] note* Diagnosis Moderate episode of recurrent major depressive disorder (HCC)- Primary [facility]* Diagnosis Unspecified hypothyroidism- Primary Essential hypertension, malignant Lipids blood increased Other and unspecified hyperlipidemia Vegans' anemia Other vitamin B12 deficiency anemia [facility]* Diagnosis Lytic bone lesion of femur- Primary [facility]* Diagnosis Lytic bone lesion of femur- Primary Greater trochanteric bursitis of right hip Enthesopathy of hip region Chronic pain of right hip Chronic low back pain, unspecified back pain laterality, unspecified whether sciatica present Pain of right hip Bone lesion Disorder of bone and cartilage, unspecified [facility]* Diagnosis Attention deficit hyperactivity disorder (ADHD), predominantly 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 (CMS-HCC) Generalized anxiety disorder [facility] Diagnosis Irregular menses- Primary Irregular menstrual cycle [facility] Diagnosis Lytic bone lesion of femur [facility] Diagnosis Lytic bone lesion of femur documented [facility] this [facility]* Diagnosis Lytic bone lesion of femur documented [facility]* Diagnosis 33 weeks gestation of Third trimester state, incidental Low iron Unspecified iron deficiency anemia Nonintractable headache, unspecified chronicity pattern, unspecified headache type Constipation, unspecified constipation type documented in this encounter [facility]* Diagnosis 35 weeks gestation of Third trimester state, incidental [facility] Diagnosis Third trimester state, incidental 37 weeks gestation of documented [facility] Narrative No data available for this section [facility]* Attachments The following attachments cannot be sent through Care Everywhere. * Methylphenidate, ADULT (Cambodian) [facility] No data available for this section [facility] Diagnostic Procedure Only (Routine) - Pending Review Specialty Diagnoses / Procedures Referred By Contac t Referred To Contact XR IMAGING Diagnoses Lytic bone lesion of femur Procedures XR HIP GENERAL 3V PELV/AP/LAT RIGHT RADEX HIP UNILATERAL WITH PELVIS 2-3 VIEWS Rosas Mckinney MD [address] [place] [address] Xr Imaging Referral ID Status Reason Start Date Expiration Date Visits Requested Visits Authorized [id number] Pending Review Auto-Generat ed Referral 08/26/2022 03/28/2023 1 1 [facility] for referral (narrative)* Diagnostic Procedure Only (Routine) - Pending Review Specialty Diagnoses / Procedures Referred By Contac t Referred To Contact XR IMAGING Diagnoses Lytic bone lesion of femur Procedures XR HIP GENERAL 3V PELV/AP/LAT RIGHT RADEX HIP UNILATERAL WITH PELVIS 2-3 VIEWS Tiana Cronin PA-C [address] [place] [address] Xr Imaging [place] [address] Referral ID Status Reason Start Date Expiration Date Visits Requested Visits Authorized [id number] Pending Review Auto-Generat ed Referral 03/18/2024 1 1 [facility] for referral (narrative)* Diagnostic Procedure Only (Routine) - Closed Specialty Diagnoses / Procedures Referred By Contac t Referred To Contact XR IMAGING Diagnoses Lytic bone lesion of femur Procedures XR HIP GENERAL 3V PELV/AP/LAT RIGHT RADEX HIP UNILATERAL WITH PELVIS 2-3 VIEWS Roni Dumas MD [address] [place] [address] [place] [address] Referral ID Status Reason Start Date Expiration Date V isits Requested Visits Authorized [id number] Closed Auto-Generate d Referral 02/17/2023 03/18/2024 1 1 [facility] for referral (narrative)* Diagnostic Procedure Only (Routine) - Closed Specialty Diagnoses / Procedures Referred By Contac t Referred To Contact XR IMAGING Diagnoses Lytic bone lesion of femur Procedures XR HIP GENERAL 3V PELV/AP/LAT RIGHT RADEX HIP UNILATERAL WITH PELVIS 2-3 VIEWS Rosas Mckinney MD [address] [facility] [address] [place] [id number] [place] [address] Referral ID Status Reason Start Date Expiration Date V isits Requested Visits Authorized [id number] Closed Auto-Generate d Referral 08/26/2022 03/28/2023 1 1 [facility] for referral (narrative)* Diagnostic Procedure Only (Routine) - Closed Specialty Diagnoses / Procedures Referred By Contac t Referred To Contact XR IMAGING Diagnoses Lytic bone lesion of femur Procedures XR HIP GENERAL 3V PELV/AP/LAT RIGHT RADEX HIP UNILATERAL WITH PELVIS 2-3 VIEWS Roni Dumas MD [address] [place] [place] [address] [place] [address] Referral ID Status Reason Start Date Expiration Date V isits Requested Visits Authorized [id number] Closed Auto-Generate d Referral 02/18/2022 03/20/2023 [address] [facility] Reason for Referral Specialty Diagnoses / Procedures Referred By Contac t Referred To Contact [facility] Diagnoses Acute bilateral low back pain with bilateral sciatica Procedures CONSULT TO PHYSICAL THERAPY PHYSICAL THERAPY EVALUATION HIGH COMPLEX 45 MINS Macy Jones, PUNCH MOLDER.[address] [place] [address] [facility] [place] [address] [place] [address] Referral ID Status Reason Start Date Expiration Date Visits Requested Visits Authorized [id number] Pending Review Auto-Generat ed Referral 10/04/2021 10/04/2022 1 1 Specialty Diagnoses / Procedures Referred By Contac t Referred To Contact MR IMAGING Diagnoses Greater trochanteric bursitis of right hip Chronic pain of right hip Pain of right hip Bone lesion Procedures MRI HIP WO IVCON RIGHT MRI ANY JT LOWER EXTREM W/O CONTRAST Tiana Ji, LIZZY [address] [place] [address] Mr Imaging [place] [address] Referral ID Status Reason Start Date Expiration Date Visits Requested Visits Authorized [id number] Authorized Auto-Generat ed Referral 02/25/2023 03/26/2024 1 [...] or prosecute any alcohol or drug abuse patient.[facility] Hospital[facility] the event this information is protected by the Federal Confidentiality of Alcohol and Drug Abuse Patient Records regulations: The Federal rules restrict any use of the information to criminally investigate or prosecute any alcohol or drug abuse patient.[facility] Hospital[facility] the event this information is protected by the Federal Confidentiality of Alcohol and Drug Abuse Patient Records regulations: The Federal rules restrict any use of the information to criminally investigate or prosecute any alcohol or drug abuse patient.[facility] HospitalIn the event this information is protected by the Federal Confidentiality of Alcohol and Drug Abuse Patient Records regulations: The Federal rules restrict any use of the information to criminally investigate or prosecute any alcohol or drug abuse patient.[facility] HospitalIn the event this information is protected by the Federal Confidentiality of Alcohol and Drug Abuse Patient Records regulations: The Federal rules restrict any use of the information to criminally investigate or prosecute any alcohol or drug abuse patient.[facility] HospitalIn the event this information is protected by the Federal Confidentiality of Alcohol and Drug Abuse Patient Records regulations: The Federal rules restrict any use of the information to criminally investigate or prosecute any alcohol or drug abuse patient.[facility] HospitalIn the event this information is protected by the Federal Confidentiality of Alcohol and Drug Abuse Patient Records regulations: The Federal rules restrict any use of the information to criminally investigate or prosecute any alcohol or drug abuse patient.[facility] HospitalIn the event this information is protected by the Federal Confidentiality of Alcohol and Drug Abuse Patient Records regulations: The Federal rules restrict any use of the information to criminally investigate or prosecute any alcohol or drug abuse patient.[facility] HospitalIn the event this information is protected by the Federal Confidentiality of Alcohol and Drug Abuse Patient Records regulations: The Federal rules restrict any use of the information to criminally investigate or prosecute any alcohol or drug abuse patient.[facility] HospitalIn the event this information is protected by the Federal Confidentiality of Alcohol and Drug Abuse Patient Records regulations: The Federal rules restrict any use of the information to criminally investigate or prosecute any alcohol or drug abuse patient.[facility] HospitalIn the event this information is protected by the Federal Confidentiality of Alcohol and Drug Abuse Patient Records regulations: The Federal rules restrict any use of the information to criminally investigate or prosecute any alcohol or drug abuse patient.[facility] HospitalIn the event this information is protected by the Federal Confidentiality of Alcohol and Drug Abuse Patient Records regulations: The Federal rules restrict any use of the information to criminally investigate or prosecute any alcohol or drug abuse patient.[facility] HospitalIn the event this information is protected by the Federal Confidentiality of Alcohol and Drug Abuse Patient Records regulations: The Federal rules restrict any use of the information to criminally investigate or prosecute any alcohol or drug abuse patient.[facility] Patient Care team informatio n (unrecognized section and content) Lodge Sales Associate Relationship Specialty Start Date End Date Anupama Brown DO [address] [place] [address] PCP - General Family Medicine 07/25/22 Emile Mesa MD [address] [place] [address] Gastroenterology 07/25/22 Guilalume Vasquez DO [address] [place] [address] [place] [address] HOME HEALTH AID 07/25/22 Lodge Sales Associate Relationship Specialty Start Date End Date Anupama Brown DO [address] [place] [address] PCP - General Family Medicine 07/25/22 Emile Mesa MD [address] [address] Gastroenterology 07/25/22 Guillaume Vasquez, DO [address] [place] [address] HOME HEALTH AID 07/25/22 Lodge Sales Associate Relationship Specialty Start Date End Date Anupama Brown DO [address] [place] [address] PCP - General Family Medicine 07/25/22 Emile Mesa MD [address] [place] [address] Gastroenterology 07/25/22 Guillaume Vasquez, DO [address] [place] [address] HOME HEALTH AID 07/25/22 Lodge Sales Associate Relationship Specialty Start Date End Date Anupama Brown DO [address] [place] [address] PCP - General Family Medicine 07/25/22 Emile Mesa MD [address] [place] [address] Gastroenterology 07/25/22 Guillaume Vasquez, DO [address] [place] [address] HOME HEALTH AID 07/25/22 Lodge Sales Associate Relationship Specialty Start Date End Date Chelsea Kraus DO [address] [place] [address] PCP - General Family Medicine 07/02/19 Lodge Sales Associate Relationship Specialty Start Date End Date Anupama Brown MD [address] [place] [phone] PCP - General Family Medicine 03/04/23 Lodge Sales Associate Relationship Specialty Start Date End Date Anupama Brown MD [address] [place] [phone] PCP - General Family Medicine 03/04/23 Lodge Sales Associate Relationship Specialty Start Date End Date Anupama Brown DO [address] [place] [address] PCP - General Family Medicine 07/25/22 Emile Mesa MD [address] [place] [address] Gastroenterology 07/25/22 Guillaume Vasquez DO [address] [place] [address] [place] [address] Mid Level Practitioner 07/25/22 Lodge Sales Associate Relationship Specialty Start Date End Date Anupama Brown DO [address] [place] [address] PCP - General Family Medicine 07/25/22 Emile Mesa MD [address] [place] [address] Gastroenterology 07/25/22 Guillaume Vasquez DO [address] [place] [address] [place] [address] Mid Level Practitioner 07/25/22 Lodge Sales Associate Relationship Specialty Start Date End Date Anupama Brown MD [address] [place] [phone] PCP - General Family Medicine 03/04/23 Lodge Sales Associate Relationship Specialty Start Date End Date Anupama Brown MD [address] [place], [phone] PCP - General Family Medicine 03/04/23 Lodge Sales Associate Relationship Specialty Start Date End Date Anupama Brown MD [address] [place] [phone] PCP - General Family Medicine 03/04/23 Lodge Sales Associate Relationship Specialty Start Date End Date Anupama Brown MD [address] [place] [phone] PCP - General Family Medicine 03/04/23 Lodge Sales Associate Relationship Specialty Start Date End Date Anupama Brown MD [address] [place] [phone] PCP - General Family Medicine 03/04/23 Reason for Visit (unrecogniz ed section and content) Reason Comments New Pain Tumor/Mass Specialty Diagnoses / Procedures Referred By Contac t Referred To Contact Orthopedics Diagnoses Lytic bone lesion of femur Procedures CONSULT TO ORTHOPAEDICS OFFICE/OUTPATIENT NEW HIGH MDM 60-74 MINUTES Roni Dumas MD [address] [place] [place] [address] Referral ID Status Reason Start Date Expiration Date V isits Requested Visits Authorized [id number] Closed PCP Requested Referral 02/18/2022 02/18/2023 1 1 Reason Comments New Pain Reason Comments Radio Gen RMP Specialty Diagnoses / Procedures Referred By Contac t Referred To Contact XR IMAGING Diagnoses Lytic bone lesion of femur Procedures XR HIP GENERAL 3V PELV/AP/LAT RIGHT RADEX HIP UNILATERAL WITH PELVIS 2-3 VIEWS Roni Dumas MD [address] [place] [place] [address] [place] [address] Referral ID Status Reason Start Date Expiration Date V isits Requested Visits Authorized [id number] Closed Auto-Generate d Referral 02/17/2023 03/18/2024 1 1 Specialty Diagnoses / Procedures Referred By Contac t Referred To Contact XR IMAGING Diagnoses Lytic bone lesion of femur Procedures XR HIP GENERAL 3V PELV/AP/LAT RIGHT RADEX HIP UNILATERAL WITH PELVIS 2-3 VIEWS Rosas Mckinney MD [address] [place] [address] [place] [address] Referral ID Status Reason Start Date Expiration Date V isits Requested Visits Authorized [id number] Closed Auto-Generate d Referral 08/26/2022 03/28/2023 1 1 Referral ID Status Reason Start Date Expiration Date V isits Requested Visits Authorized [id number] Closed Auto-Generate d Referral 02/18/2022 03/20/2023 1 1 Reason Comments Routine Visit INFORMATION SOURCE (unrecogn ized section and content) DATE CREATED AUTHOR 05/08/2022 [facility] DATE CREATED AUTHOR AUTHOR'S ORGANIZ ATION 05/26/2022 [facility] DATE CREATED AUTHOR AUTHOR'S ORGANIZ ATION 05/04/2023 [facility] DATE CREATED AUTHOR AUTHOR'S ORGANIZ ATION 06/06/2023 [facility] DATE CREATED AUTHOR AUTHOR'S ORGANIZ ATION 10/17/2023 [facility] [place] DATE CREATED AUTHOR AUTHOR'S ORGANIZ ATION 2024 [facility] DATE CREATED AUTHOR AUTHOR'S ORGANIZ ATION 02/20/2024 [facility] FOR RECORDS PERTAINING TO PATIENTS WHO [...] BE BASED ON THE PRIMARY CLINICAL RECORDS. [facility] [employer] provides no warranty or guarantee of the accuracy or completeness of information in this document.
--- NOTE | 2024-02-27 12:09 | PC.NURSE ---
Stacie and 4 day old Beena arrive for follow up appointment. Grandma arrives as well. Stacie states feeding her is frustrating , describes feeding pattern as irregular. Some feeds latches are easy and really drinks well , others infant does not latch after multiple efforts and simply goes back to sleep. Other feeds last 1 hour with active sucking and feeding while others last 5-6 minutes and baby very sleepy. Mom states she is sore and tired but otherwise doing ok. VSS and assessment WNL for Stacie. Bleeding described as light flow, red to dark red in color. Takes Motrin as needs for discomfort. Milk came in during the night, breast full and firm. States able to express milk prior to latching. Baby Beena awake and fussy, color jaundiced. VSS and assessment WNL except transcutaneous bili is 15.9, prompting automatic draw for serum level. to breast, assisted with deep latch as breast is full and firm. Mom voices understanding for deeper latch. Baby nurses well this feed. Bili level draw per this proposal manager writer, and taken to lab. Mom able to hold and comfort baby during procedure. Discussed 37 week infant and expectations for feeding and given information foe the same. Will start pumping after every other feed to have easy milk available for baby to top up feeds or to use when no latch achieved. Demo of slow paced feeding as well. Mom leaves to hop picker toddler from preschool. 1128 Lab calls results of serum bili, Total 19.8. Level called to Dr Damon, orders for re admit obtained and to start double phototherapy. Stacie called and explained level and treatment. Voiced under standing and will situate toddler and return to hospital for treatment with Baby Beena.
[2024-02-27 12:21] VITALS: BP 132/85; PULSE 81; TEMP 36.7; O2SAT 98
== END 2024-02-27 11:55 | disposition home or self-care (01) ==
LOC: FBCO 08:19
PROVIDERS: PCP Family Medicine; Visit Provider Obstetrics & Gynecology
DX: Z39.2 Encounter for routine postpartum follow-up (principal)

== ENCOUNTER 2024-03-03 08:47 | Outpatient (OUT) | payer OTHER, SELFPAY ==
--- OUTSIDE RECORDS SUMMARY | 2024-03-03 09:02 | XMS_ITS | CCD ---
Author Organization [facility] Care Team Providers Care Magnet Maker Name Role Phone Unavailable Primary Care [...] Unavailable PEDRO, DR OLIVEIRA Primary Care Unavailable GAINES, DR EMELIA Luna Consulting Unavailable PEDRO, DR OLIVEIRA Consulting Unavailable Chayo Anne Attending Unavailable Roxanne MOSLEY Attending Unavailable Asakatlyn, Imad Unavailable Anupama Brown DO Primary Care Provider Emile [place] MD Unavailable Guillaume Vasquez DO Unavailable Anupama Brown DO Primary Care Provider Emile Mesa MD Unavailable Chelsea Kraus DO Primary Care Provider ASIF SCHAEFER Attending Unavailable CHELSAE KRAUS Referring Unavailable CHELSEA KRAUS Primary Care [...] Unavailable Primary Care Provider Unavailabl e KEVIN, [facility] Primary Care Unavailabl e KEVIN, [facility] Primary Care Unavailabl e ABHYANKAR, RONI Referring Unavailable ROSAS MCKINNEY Attending Unavailable KEVIN, [facility] Care Unavailabl e ABHYANKAR, RONI Referring Unavailable KEVIN, [facility] Care Unavailabl e KEVIN, [facility] Care Unavailabl e KEVIN, [facility] Primary Care Unavailabl e PEDRO, GUILLAUME R Referring Unavailable KEVIN, [facility] Care Unavailabl e FRANNY HAEGR Referring Unavailable KEVIN, [facility] Care Unavailabl e PEDRO, GUILLAUME R Referring Unavailable KEVIN, [facility] Primary Care Unavailabl e KEVIN, [facility] Primary Care Unavailabl e PEDRO, GUILLAUME R Referring Unavailable KEVIN, [facility] Care Unavailabl e KEVIN, [facility] [...] day(s), # 20 cap(s), Refills(s) 0, Pharmacy: [facility], 172, cm, 05/26/22 [...] Start: 09-11-2021 take 1 capsule by mo [facility] before mealtime omeprazole (PriLOSEC) [address] capsule Take 40 mg by mouth in the morning. Take before meals. 05/26/2022 Active Comment on above: Take 1 capsule by mo [facility] once daily. Wait 20-30 minutes before eating or taking other medications. Take 1 capsule by mo [facility] once daily in the morning, wait 20-30 minutes before eating or taking other medications Take 1 capsule by mo [facility] once daily. 20-30 minutes before [...] Comment on above: Take 1 capsule by [facility] twice daily. escitalopram 20 mg oral [...] Comment on above: Take 1 tablet by [facility] once daily. fluconazole 150 mg oral tablet (8 sources) Azole Antifungal Start: 02-07-20 End: 02-26-20 take 1 tablet by mouth once fluconazole (DIFLUCAN) 150 mg tablet 1 (one) tablet by mouth one time dose 1 tablet 1 02/06/2022 02/25/2023 Discontinued Comment on above: 1 (one) tablet by [facility] one time dose hydrOXYzine hydrochloride 50 [...] Comment on above: Take 1 tablet by [facility] three times daily as needed. 10 [...] WITH AUTO DIFFon BASOPHILS ABSOLUTE AUTO 0 [facility] Basophils/100 WBC (Bld) 0.3 % 0.2 - 2.0 % [facility] Eosinophils/100 WBC (Bld) 0.8 % Low 0.9 - 7.0 % [facility] Erythrocyte distribution width (RBC) [Ratio] 14.3 % 11.0 - 15.0 % [facility] Hematocrit (Bld) [Volume fraction] 32.4 % Low 36.0 - 48.0 % [facility] Hemoglobin (Bld) [Mass/Vol] 10 g/dL Low 12.0 - 16.0 g/dL [facility] IMMATURE GRANULOCYTES ABS AUTO 0.05 High [facility] Immature granulocytes/100 WBC (Bld) 0.5 % 0.0 - 0.5 % [facility] Interpretation and review of laboratory results Abnormal [facility] LYMPHOCYTES ABSOLUTE AUTO 1.4 [facility] Lymphocytes/100 WBC (Bld) 12.7 % Low 20.5 - 60.0 % [facility] MCH (RBC) [Entitic mass] 25.4 pg Low 26.7 - 34.0 pg [facility] MCHC (RBC) [Mass/Vol] 30.9 g/dL 29.9 - 35.2 g/dL [facility] MCV (RBC) [Entitic vol] 82.2 fL 81.0 - 99.0 fL [facility] MONOCYTES ABSOLUTE AUTO 1 High [facility] Monocytes/100 WBC (Bld) 9.4 % 1.7 - 12.0 % [facility] NEUTROPHILS ABSOLUTE AUTO 8.3 High [facility] Neutrophils/100 WBC (Bld) 76.3 % High 43.0 - 75.0 % [facility] Platelet mean volume (Bld) [Entitic vol] 11.7 fL 9.5 - 13.5 fL [facility] EO # 0.1 [facility] PLT 158 [facility] RBC 3.94 Low [facility] WBC 10.9 [facility] WITH PLATELET NO DI FFERENTIALon 02-23-2024 Erythrocyte distribution width (RBC) [Ratio] 14.3 % 11.0 - 15.0 % [facility] Hematocrit (Bld) [Volume fraction] 34.6 % Low 36.0 - 48.0 % [facility] Hemoglobin (Bld) [Mass/Vol] 10.9 g/dL Low 12.0 - 16.0 g/dL [facility] Interpretation and review of laboratory results Abnormal [facility] MCH (RBC) [Entitic mass] 25.6 pg Low 26.7 - 34.0 pg [facility] MCHC (RBC) [Mass/Vol] 31.5 g/dL 29.9 - 35.2 g/dL [facility] MCV (RBC) [Entitic vol] 81.4 fL 81.0 - 99.0 fL [facility] Platelet mean volume (Bld) [Entitic vol] 12.8 fL 9.5 - 13.5 fL [facility] PLT 178 [facility] RBC 4.25 [facility] WBC 9.5 [facility] Urinalysis macro (dipstick) panel (U)on 02-10-2024 Bilirubin, UA Negative Negative - 4(70) +++ mg/dL [facility] Blood, UA Negative Negative - 50 Pepito/mcL [facility] Clarity, UA Clear [facility] Color, UA Yellow [facility] Glucose, UA Negative Negative - 1999(110) ++++ mg/dL [facility] Interpretation and review of laboratory results Normal [facility] Ketones, UA Negative Negative - 160(16) ++++ mg/dL [facility] Leukocytes, UA Negative Negative - 500+++ Ilia/mcL [facility] Nitrite, UA Negative Negative - Positive [facility] pH, UA 6.5 5 - 9 [facility] Protein, UA Negative Negative - 1999(20) ++++ mg/dL [facility] Spec Grav, UA 1.01 1 - 1.03 [facility] Urobilinogen, UA 0.2 0.2 - 12 mg/dL [facility] T4 Free SerPl-mCncon 024 Free T4 [Mass/Vol] 1.1 ng/dL Normal 0.9-1.7 [facility] Comment on above: Order Comment: Speci men Type: BLOOD SPECIMEN Ordering Facility: [facility] [employer] [facility] [place] Address: [facility] [address] [place] [address] Performed By: #### 3 016-3, 3024-7 #### [facility] CLIA [id number] [address] [place] [address] [place] TSH SerPl-aCncon 02-05-2024 TSH Qn 1.340 m[IU]/L Normal 0.270-4.200 [facility] Comment on above: Order Comment: Speci men Type: BLOOD SPECIMEN Ordering Facility: [facility] [employer] [facility] [place] Address: [facility] [address] [place] [address] Result Comment: If t he patient is , TSH reference range varies by gestational period: First Trimester (weeks 9-12): 0.180-2.990 mIU/L Second Trimester: 0.110-3.980 mIU/L Third Trimester: 0.480-4.710 mIU/L Manuel Grayson et al. A Practical Approach for the Verifications and Determination of Site- and Trimester-Specific Reference Intervals for Thyroid Function tests in . Thyroid, 2019:29:3:412-420. Emanuel E, et al. 2017 Guidelines of the [place] Thyroid Association for the Diagnosis and Management of Thyroid Disease during and the . Thyroid, 2017:27:3:315-389. Performed By: #### 3 016-3, 3024-7 #### [facility] CLIA [id number] [facility] [place] [address] [place] Urinalysis macro (dipstick) panel (U)on 01-27-2024 Bilirubin, UA Negative Negative - 4(70) +++ mg/dL [facility] Blood, UA Negative Negative - 50 Pepito/mcL [facility] Clarity, UA Clear [facility] Color, UA Yellow [facility] Glucose, UA Negative Negative - 2000(110) ++++ mg/dL [facility] Interpretation and review of laboratory results Normal [facility] Ketones, UA Negative Negative - 160(16) ++++ mg/dL [facility] Leukocytes, UA Negative Negative - 500+++ Ilia/mcL [facility] Nitrite, UA Negative Negative - Positive [facility] pH, UA 5.5 5 - 9 [facility] Protein, UA Negative Negative - 2000(20) ++++ mg/dL [facility] Spec Grav, UA 1.020 1 - 1.03 [facility] Urobilinogen, UA 0.2 0.2 - 12 mg/dL [facility] CBC W Auto Differential pane l (Bld)on 01-19-2024 Basophils (Bld) [#/Vol] 10*3/uL Normal <0.11 [facility] Comment on above: Order Comment: Speci men Type: BLOOD SPECIMEN Ordering Facility: External Submitter Address: , , Performed By: #### 5 7021-8 #### [facility] CLIA [id number] [address] [place] [address]2434 Basophils/100 WBC (Bld) 0.2 % Normal [facility] Comment on above: Order Comment: Speci men Type: BLOOD SPECIMEN Ordering Facility: External Submitter Address: , , Performed By: #### 5 7021-8 #### [facility] CLIA [id number] [address] [place] [address] 68011 Differential cell count method Nom (Bld) Auto Normal [facility] Comment on above: Order Comment: Speci men Type: BLOOD SPECIMEN Ordering Facility: External Submitter Address: , , Performed By: #### 5 7021-8 #### [facility] CLIA [id number] [address] [place] [address] 14998 Eosinophils (Bld) [#/Vol] 0.06 10*3/uL Normal <0.46 [facility] Comment on above: Order Comment: Speci men Type: BLOOD SPECIMEN Ordering Facility: External Submitter Address: , , Performed By: #### 5 7021-8 #### [facility] CLIA [id number] [address] [place] [address] 62621 Eosinophils/100 WBC (Bld) 0.6 % Normal [facility] Comment on above: Order Comment: Speci men Type: BLOOD SPECIMEN Ordering Facility: External Submitter Address: , , Performed By: #### 5 7021-8 #### [facility] CLIA [id number] [address] [place] [address] 07660 Erythrocyte distribution width (RBC) [Ratio] 13.3 % Normal 11.5-15.0 [facility] Comment on above: Order Comment: Speci men Type: BLOOD SPECIMEN Ordering Facility: External Submitter Address: , , Performed By: #### 5 7021-8 #### [facility] IA [id number] [address] [place] [address] 88675 Hematocrit (Bld) [Volume fraction] 32.8 % Low 36.0-46.0 [facility] Comment on above: Order Comment: Speci men Type: BLOOD SPECIMEN Ordering Facility: External Submitter Address: , , Performed By: #### 5 7021-8 #### [facility] CLIA [id number] [address] [place] [address] 06712 Hemoglobin (Bld) [Mass/Vol] 10.7 g/dL Low 11.5-15.5 [facility] Comment on above: Order Comment: Speci men Type: BLOOD SPECIMEN Ordering Facility: External Submitter Address: , , Performed By: #### 5 7021-8 #### [facility] CLIA [id number] [address] [place] [address] 21636 Immature granulocytes (Bld) [#/Vol] 0.05 10*3/uL Normal <0.10 [facility] Comment on above: Order Comment: Speci men Type: BLOOD SPECIMEN Ordering Facility: External Submitter Address: , , Performed By: #### 5 7021-8 #### [facility] CLIA [id number] [address] [place] [address] 52837 Immature granulocytes/100 WBC (Bld) 0.5 % Normal [facility] Comment on above: Order Comment: Speci men Type: BLOOD SPECIMEN Ordering Facility: External Submitter Address: , , Performed By: #### 5 7021-8 #### [facility] CLIA [id number] [address] [place] [address] 22437 Lymphocytes (Bld) [#/Vol] 1.55 10*3/uL Normal 1.00-4.00 [facility] Comment on above: Order Comment: Speci men Type: BLOOD SPECIMEN Ordering Facility: External Submitter Address: , , Performed By: #### 5 7021-8 #### [facility] CLIA [id number] [address] [place] [address] 74823 Lymphocytes/100 WBC (Bld) 15.1 % Normal [facility] Comment on above: Order Comment: Speci men Type: BLOOD SPECIMEN Ordering Facility: External Submitter Address: , , Performed By: #### 5 7021-8 #### [facility] CLIA [id number] [address] [place] [address] 63555 MCH (RBC) [Entitic mass] 27.8 pg Normal 26.0-34.0 [facility] Comment on above: Order Comment: Speci men Type: BLOOD SPECIMEN Ordering Facility: External Submitter Address: , , Performed By: #### 5 7021-8 #### [facility] CLIA [id number] [address] [place] [address] 41398 MCHC (RBC) [Mass/Vol] 32.6 g/dL Normal 30.5-36.0 [facility] Comment on above: Order Comment: Speci men Type: BLOOD SPECIMEN Ordering Facility: External Submitter Address: , , Performed By: #### 5 7021-8 #### [facility] CLIA [id number] [address] [place] [address] 05224 MCV (RBC) [Entitic vol] 85.2 fL Normal 80.0-100.0 [facility] Comment on above: Order Comment: Speci men Type: BLOOD SPECIMEN Ordering Facility: External Submitter Address: , , Performed By: #### 5 7021-8 #### [facility] CLIA [id number] [address] [place] [address] 88142 Monocytes (Bld) [#/Vol] 0.77 10*3/uL Normal <0.87 [facility] Comment on above: Order Comment: Speci men Type: BLOOD SPECIMEN Ordering Facility: External Submitter Address: , , Performed By: #### 5 7021-8 #### [facility] CLIA [id number] [address] [place] [address] 43380 Monocytes/100 WBC (Bld) 7.5 % Normal [facility] Comment on above: Order Comment: Speci men Type: BLOOD SPECIMEN Ordering Facility: External Submitter Address: , , Performed By: #### 5 7021-8 #### [facility] CLIA [id number] [address] [place] [address] 53820 Neutrophils (Bld) [#/Vol] 7.81 10*3/uL High 1.45-7.50 [facility] Comment on above: Order Comment: Speci men Type: BLOOD SPECIMEN Ordering Facility: External Submitter Address: , , Performed By: #### 5 7021-8 #### [facility] CLIA [id number] [address] [place] [address] 14449 Neutrophils/100 WBC (Bld) 76.1 % Normal [facility] Comment on above: Order Comment: Speci men Type: BLOOD SPECIMEN Ordering Facility: External Submitter Address: , , Performed By: #### 5 7021-8 #### [facility] CLIA [id number] [address] [place] [address] 80040 Nucleated RBC (Bld) [#/Vol] 10*3/uL Normal <0.01 [facility] Comment on above: Order Comment: Speci men Type: BLOOD SPECIMEN Ordering Facility: External Submitter Address: , , Performed By: #### 5 7021-8 #### [facility] CLIA [id number] [address] [place] [address] 20525 Nucleated RBC/100 WBC (Bld) [Ratio] 0.0 /100 WBC Normal [facility] Comment on above: Order Comment: Speci men Type: BLOOD SPECIMEN Ordering Facility: External Submitter Address: , , Performed By: #### 5 7021-8 #### [facility] CLIA [id number] [address] [place] [address] Platelet mean volume (Bld) [Entitic vol] 11.3 fL Normal 9.0-12.7 [facility] Comment on above: Order Comment: Speci men Type: BLOOD SPECIMEN Ordering Facility: External Submitter Address: , , Performed By: #### 5 7021-8 #### [facility] CLIA [id number] [address] [place] [address] 90353 Platelets (Bld) [#/Vol] 172 10*3/uL Normal 150-400 [facility] Comment on above: Order Comment: Speci men Type: BLOOD SPECIMEN Ordering Facility: External Submitter Address: , , Performed By: #### 5 7021-8 #### [facility] CLIA [id number] [address] [place] [address] 87865 RBC (Bld) [#/Vol] 3.85 10*6/uL Low 3.90-5.20 [facility] Comment on above: Order Comment: Speci men Type: BLOOD SPECIMEN Ordering Facility: External Submitter Address: , , Performed By: #### 5 7021-8 #### [facility] CLIA [id number] [address] [place] [address] 26579 WBC (Bld) [#/Vol] 10.26 10*3/uL Normal 3.70-11.00 [facility] Comment on above: Order Comment: Speci men Type: BLOOD SPECIMEN Ordering Facility: External Submitter Address: , , Performed By: #### 5 7021-8 #### [facility] CLIA [id number] [address] [place] [address] 92643 T4 Free SerPl-mCncon 09-16-2 024 Free T4 [Mass/Vol] 0.9 ng/dL Normal 0.9-1.7 [facility] Comment on above: Order Comment: Speci men Type: BLOOD SPECIMEN Ordering Facility: [facility] [employer] [facility] [place] Address: [address] [place] [address] Performed By: #### G LTGST #### [facility] CLIA [id number] [address] [place] [address] [place] TSH SerPl-aCncon 01-05-2024 TSH Qn 1.220 m[IU]/L Normal 0.270-4.200 [facility] Comment on above: Order Comment: Speci vishnu [...] E, et al. 2017 Guidelines of the [place] Thyroid Association for the Diagnosis and Management of Thyroid Disease during and the . Thyroid, 2017:27:3:315-389. Performed By: #### 5 7021-8 #### [facility] CLIA [id number] [address] [place] [address] T4 Free SerPl-mCncon 024 Free T4 [Mass/Vol] 1.1 ng/dL Normal 0.9-1.7 [facility] Comment on above: Order Comment: Tammy mares Type: BLOOD SPECIMEN [facility] [place] Address: [facility] [address] [place] [address] Performed By: #### G LTGST #### [facility] CLIA [id number] [address] [place] [address] [place] TSH SerPl-aCncon 12-08-2023 TSH Qn 0.607 m[IU]/L Normal 0.270-4.200 [facility] Comment on above: Order Comment: Speci men Type: BLOOD SPECIMEN Ordering Facility: [facility] [employer] [facility] [place] Address: [facility] [place] [place] [address] Result Comment: If t he patient is , TSH reference range varies by gestational period: First Trimester (weeks 9-12): 0.180-2.990 mIU/L Second Trimester: 0.110-3.980 mIU/L Third Trimester: 0.480-4.710 mIU/L Manuel Grayson et al. A Practical Approach for the Verifications and Determination of Site- and Trimester-Specific Reference Intervals for Thyroid Function tests in . Thyroid, 2019:29:3:412-420. Emanuel Nassar et al. 2017 Guidelines of the [place] Thyroid Association for the Diagnosis and Management of Thyroid Disease during and the . Thyroid, 2017:27:3:315-389. Performed By: #### G LTGST #### [facility] CLIA [id number] [address] [place], [place] [address] [place] CBC W Auto Differential pane l (Bld)on 11-20-2023 Basophils (Bld) [#/Vol] 0.04 10*3/uL Normal <0.11 [facility] Comment on above: Order Comment: Speci men Type: BLOOD SPECIMEN Ordering Facility: [facility] [employer] [facility] [place] Address: [facility] [place] [place] [address] Performed By: #### 5 7021-8 #### [facility] CLIA [id number] [address] [place] [address] 75800 Basophils/100 WBC (Bld) 0.6 % Normal [facility] Comment on above: Order Comment: Speci men Type: BLOOD SPECIMEN Ordering Facility: [facility] [place] Address: [facility] [place] [place] [address] Performed By: #### 5 7021-8 #### [facility] CLIA [id number] [address] [place] [address] 80092 Differential cell count method Nom (Bld) Auto Normal [facility] Comment on above: Order Comment: Speci men Type: BLOOD SPECIMEN Ordering Facility: [facility] [place] Address: [address] [place] [address] Performed By: #### 5 7021-8 #### [facility] CLIA [id number] [address] [place] [address] 69472 Eosinophils (Bld) [#/Vol] 0.05 10*3/uL Normal <0.46 [facility] Comment on above: Order Comment: Speci men Type: BLOOD SPECIMEN [facility] [place] Address: [address] [place] [address] Performed By: #### 5 7021-8 #### [facility] CLIA [id number] [address] [place], [place] [address] Eosinophils/100 WBC (Bld) 0.7 % Normal [facility] Comment on above: Order Comment: Speci men Type: BLOOD SPECIMEN Ordering Facility: [facility] Address: [address] [place] [address] Performed By: #### 5 7021-8 #### [facility] CLIA [id number] [address] [place] [address] 05571 Erythrocyte distribution width (RBC) [Ratio] 12.9 % Normal 11.5-15.0 [facility] Comment on above: Order Comment: Speci men Type: BLOOD SPECIMEN Ordering Facility: [facility] Address: [address] [place] [address] Performed By: #### 5 7021-8 #### [facility] IA [id number] [address] [place], [place] [address] Hematocrit (Bld) [Volume fraction] 35.0 % Low 36.0-46.0 [facility] Comment on above: Order Comment: Speci men Type: BLOOD SPECIMEN [facility] [place] Address: [address] [place] [address] Performed By: #### 5 7021-8 #### [facility] CLIA [id number] [address] [place] [address] 66499 Hemoglobin (Bld) [Mass/Vol] 11.4 g/dL Low 11.5-15.5 [facility] Comment on above: Order Comment: Speci men Type: BLOOD SPECIMEN Ordering Facility: [facility] [employer] [facility] [place] Address: [address] [place] [id number] Performed By: #### 5 7021-8 #### [facility] CLIA [id number] [address] [place] [address] 65663 Immature granulocytes (Bld) [#/Vol] 10*3/uL Normal <0.10 [facility] Comment on above: Order Comment: Speci men Type: BLOOD SPECIMEN Ordering Facility: [facility] [employer] [facility] [place] Address: [address] [place] [id number] Performed By: #### 5 7021-8 #### [facility] CLIA [id number] [address] [place] [address] 63671 Immature granulocytes/100 WBC (Bld) 0.3 % Normal [facility] Comment on above: Order Comment: Speci men Type: BLOOD SPECIMEN Ordering Facility: [facility] Address: [address] [place] [id number] Performed By: #### 5 7021-8 #### [facility] CLIA [id number] [address] [place] [address] 80906 Lymphocytes (Bld) [#/Vol] 1.25 10*3/uL Normal 1.00-4.00 [facility] Comment on above: Order Comment: Speci men Type: BLOOD SPECIMEN Ordering Facility: [facility] Address: [address] [place] [id number] Performed By: #### 5 7021-8 #### [facility] CLIA [id number] [address] [place] [address] 71274 Lymphocytes/100 WBC (Bld) 18.3 % Normal [facility] Comment on above: Order Comment: Speci men Type: BLOOD SPECIMEN [facility] Address: [address] [place] [address] Performed By: #### 5 7021-8 #### [facility] CLIA [id number] [address] [place] [address] 77593 MCH (RBC) [Entitic mass] 29.9 pg Normal 26.0-34.0 [facility] Comment on above: Order Comment: Speci men Type: BLOOD SPECIMEN Ordering Facility: [facility] Address: [address] [place] [address] Performed By: #### 5 7021-8 #### [facility] CLIA [id number] [address] [place] [address] 80074 MCHC (RBC) [Mass/Vol] 32.6 g/dL Normal 30.5-36.0 [facility] Comment on above: Order Comment: Speci men Type: BLOOD SPECIMEN Ordering Facility: [facility] Address: [address] [place] [address] Performed By: #### 5 7021-8 #### [facility] CLIA [id number] [address] [place] [address] 71891 MCV (RBC) [Entitic vol] 91.9 fL Normal 80.0-100.0 [facility] Comment on above: Order Comment: Speci men Type: BLOOD SPECIMEN Ordering Facility: [facility] Address: [address] [place] [address] Performed By: #### 5 7021-8 #### [facility] CLIA [id number] [address] [place] [address] 31494 Monocytes (Bld) [#/Vol] 0.52 10*3/uL Normal <0.87 [facility] Comment on above: Order Comment: Speci men Type: BLOOD SPECIMEN [facility] [place] Address: [address] [place] [id number] Performed By: #### 5 7021-8 #### [facility] CLIA [id number] [address] [place] [address] Monocytes/100 WBC (Bld) 7.6 % Normal [facility] Comment on above: Order Comment: Speci men Type: BLOOD SPECIMEN [facility] Address: [address] [place] [address] Performed By: #### 5 7021-8 #### [facility] CLIA [id number] [address] [place] [address] 87203 Neutrophils (Bld) [#/Vol] 4.94 10*3/uL Normal 1.45-7.50 [facility] Comment on above: Order Comment: Speci men Type: BLOOD SPECIMEN Ordering Facility: [facility] Address: [address] [place] [address] Performed By: #### 5 7021-8 #### [facility] CLIA [id number] [address] [place] [address] 86324 Neutrophils/100 WBC (Bld) 72.5 % Normal [facility] Comment on above: Order Comment: Speci men Type: BLOOD SPECIMEN Ordering Facility: [facility] Address: [address] [place] [address] Performed By: #### 5 7021-8 #### [facility] CLIA [id number] [address] [place] [address] 29199 Nucleated RBC (Bld) [#/Vol] 10*3/uL Normal <0.01 [facility] Comment on above: Order Comment: Speci men Type: BLOOD SPECIMEN Ordering Facility: [facility] Address: [address] [place] [address] Performed By: #### 5 7021-8 #### [facility] CLIA [id number] [address] [place] [address] Nucleated RBC/100 WBC (Bld) [Ratio] 0.0 /100 WBC Normal [facility] Comment on above: Order Comment: Speci men Type: BLOOD SPECIMEN Ordering Facility: [facility] [place] Address: [address] [place] [address] Performed By: #### 5 7021-8 #### [facility] CLIA [id number] [address] [place] [address] Platelet mean volume (Bld) [Entitic vol] 11.4 fL Normal 9.0-12.7 [facility] Comment on above: Order Comment: Speci men Type: BLOOD SPECIMEN Ordering Facility: [facility] [place] Address: [address] [place] [address] Performed By: #### 5 7021-8 #### [facility] CLIA [id number] [address] [place] [address] Platelets (Bld) [#/Vol] 167 10*3/uL Normal 150-400 [facility] Comment on above: Order Comment: Speci men Type: BLOOD SPECIMEN [facility] [place] Address: [address] [place] [address] Performed By: #### 5 7021-8 #### [facility] CLIA [id number] [address] [place] [address] 35082 RBC (Bld) [#/Vol] 3.81 10*6/uL Low 3.90-5.20 [facility] Comment on above: Order Comment: Speci men Type: BLOOD SPECIMEN Ordering Facility: [facility] [place] Address: [address] [place] [address] Performed By: #### 5 7021-8 #### [facility] CLIA [id number] [address] [place] [address] WBC (Bld) [#/Vol] 6.82 10*3/uL Normal 3.70-11.00 [facility] Comment on above: Order Comment: Speci men Type: BLOOD SPECIMEN Ordering Facility: [facility] [place] Address: [address] [place] [address] Performed By: #### 5 7021-8 #### [facility] CLIA [id number] [address] [place] [address] 18007 GESTATIONAL GLUCOSE SCREEN, 1-HOUR, 50 GRAM, NON-FASTINGon 11-20-2023 Glucose [Mass/Vol] 97 mg/dL Normal 74-134 [facility] Comment on above: Order Comment: Tammy mares Type: BLOOD SPECIMEN Ordering Facility: [facility] [place] Address: [facility] [address] [place] [address] Result Comment: [facility] Congress of Obstetricians and Gynecologists (Alma/Adrián) guidelines state a gestational diabetes mellitus positive screen is made, in women not previously diagnosed with overt diabetes, when the 1 hr plasma glucose level is equal to or above 140 mg/dL. The [facility] and [facility] [place] recommends a 135 mg/dL cutoff. Performed By: #### G LTGST #### [facility] CLIA [id number] [address] [place] [address] [place] T4 Free SerPl-mCncon 024 Free T4 [Mass/Vol] 1.0 ng/dL Normal 0.9-1.7 [facility] Comment on above: Order Comment: Tammy mares Type: BLOOD SPECIMEN Ordering Facility: External [facility] Address: , , Performed By: #### 5 7021-8 #### [facility] CLIA [id number] [address] [place], [place] [address] TSH SerPl-aCncon 10-22-2023 TSH Qn 4.510 m[IU]/L High 0.270-4.200 [facility] Comment on above: Order Comment: Tammy mares [...] Nassar, et al. 2017 Guidelines of the [place] Thyroid Association for the Diagnosis and Management of Thyroid Disease during and the . Thyroid, 2017:27:3:315-389. Performed By: #### 5 7021-8 #### [facility] CLIA [id number] [address] [place] [address] 16119 CBC W Auto Differential pane l (Bld)on 08-08-2023 Basophils (Bld) [#/Vol] 10*3/uL Normal <0.11 [facility] Comment on above: Order Comment: Speci men Type: BLOOD SPECIMEN Ordering Facility: [facility] Address: , , Performed By: #### 5 7021-8 #### [facility] CLIA [id number] [address] [place] [address] 64207 Basophils/100 WBC (Bld) 0.3 % Normal [facility] Comment on above: Order Comment: Speci men Type: BLOOD SPECIMEN Ordering Facility: [facility] Address: , , Performed By: #### 5 7021-8 #### [facility] CLIA [id number] [address] [place] [address] 49110 Differential cell count method Nom (Bld) Auto Normal [facility] Comment on above: Order Comment: Speci men Type: BLOOD SPECIMEN Ordering Facility: [facility] Address: , , Performed By: #### 5 7021-8 #### [facility] CLIA [id number] [address] [place] [address] 39998 Eosinophils (Bld) [#/Vol] 0.06 10*3/uL Normal <0.46 [facility] Comment on above: Order Comment: Speci men Type: BLOOD SPECIMEN Ordering Facility: [facility] Address: , , Performed By: #### 5 7021-8 #### [facility] CLIA [id number] [address] [place] [address] 49966 Eosinophils/100 WBC (Bld) 0.9 % Normal [facility] Comment on above: Order Comment: Speci men Type: BLOOD SPECIMEN Ordering Facility: [facility] Address: , , Performed By: #### 5 7021-8 #### [facility] CLIA [id number] [address] [place] [address] 51617 Erythrocyte distribution width (RBC) [Ratio] 13.7 % Normal 11.5-15.0 [facility] Comment on above: Order Comment: Speci men Type: BLOOD SPECIMEN Ordering Facility: External Submitter Address: , , Performed By: #### 5 7021-8 #### [facility] CLIA [id number] [address] [place] [address] 67930 Hematocrit (Bld) [Volume fraction] 40.1 % Normal 36.0-46.0 [facility] Comment on above: Order Comment: Speci men Type: BLOOD SPECIMEN Ordering Facility: External [facility] Address: , , Performed By: #### 5 7021-8 #### [facility] CLIA [id number] [address] [place] [address] 83702 Hemoglobin (Bld) [Mass/Vol] 13.4 g/dL Normal 11.5-15.5 [facility] Comment on above: Order Comment: Speci men Type: BLOOD SPECIMEN Ordering Facility: External Sub[facility] Address: , , Performed By: #### 5 7021-8 #### [facility] CLIA [id number] [address] [place] [address] 22752 Immature granulocytes (Bld) [#/Vol] 10*3/uL Normal <0.10 [facility] Comment on above: Order Comment: Speci men Type: BLOOD SPECIMEN Ordering Facility: External Submitter Address: , , Performed By: #### 5 7021-8 #### [facility] CLIA [id number] [address] [place] [address] 58154 Immature granulocytes/100 WBC (Bld) 0.3 % Normal [facility] Comment on above: Order Comment: Speci men Type: BLOOD SPECIMEN Ordering Facility: External Submitter Address: , , Performed By: #### 5 7021-8 #### [facility] CLIA [id number] [address] [place] [address] 52692 Lymphocytes (Bld) [#/Vol] 1.67 10*3/uL Normal 1.00-4.00 [facility] Comment on above: Order Comment: Speci men Type: BLOOD SPECIMEN Ordering Facility: External Submitter Address: , , Performed By: #### 5 7021-8 #### [facility] CLIA [id number] [address] [place] [address] 06562 Lymphocytes/100 WBC (Bld) 24.9 % Normal [facility] Comment on above: Order Comment: Speci men Type: BLOOD SPECIMEN Ordering Facility: External Submitter Address: , , Performed By: #### 5 7021-8 #### [facility] CLIA [id number] [address] [place] [address] 09362 MCH (RBC) [Entitic mass] 31.1 pg Normal 26.0-34.0 [facility] Comment on above: Order Comment: Speci men Type: BLOOD SPECIMEN Ordering Facility: External Submitter Address: , , Performed By: #### 5 7021-8 #### [facility] CLIA [id number] [address] [place] [address] 92557 MCHC (RBC) [Mass/Vol] 33.4 g/dL Normal 30.5-36.0 [facility] Comment on above: Order Comment: Speci men Type: BLOOD SPECIMEN Ordering Facility: External Submitter Address: , , Performed By: #### 5 7021-8 #### [facility] CLIA [id number] [address] [place] [address] 07729 MCV (RBC) [Entitic vol] 93.0 fL Normal 80.0-100.0 [facility] Comment on above: Order Comment: Speci men Type: BLOOD SPECIMEN Ordering Facility: External Submitter Address: , , Performed By: #### 5 7021-8 #### [facility] CLIA [id number] [address] [place] [address] Monocytes (Bld) [#/Vol] 0.50 10*3/uL Normal <0.87 [facility] Comment on above: Order Comment: Speci men Type: BLOOD SPECIMEN Ordering Facility: External Submitter Address: , , Performed By: #### 5 7021-8 #### [facility] CLIA [id number] [address] [place] [address] 43605 Monocytes/100 WBC (Bld) 7.5 % Normal [facility] Comment on above: Order Comment: Speci men Type: BLOOD SPECIMEN Ordering Facility: External Submitter Address: , , Performed By: #### 5 7021-8 #### [facility] CLIA [id number] [address] [place] [address] 40391 Neutrophils (Bld) [#/Vol] 4.44 10*3/uL Normal 1.45-7.50 [facility] Comment on above: Order Comment: Speci men Type: BLOOD SPECIMEN Ordering Facility: External Submitter Address: , , Performed By: #### 5 7021-8 #### [facility] CLIA [id number] [address] [place] [address] 26940 Neutrophils/100 WBC (Bld) 66.1 % Normal [facility] Comment on above: Order Comment: Speci men Type: BLOOD SPECIMEN Ordering Facility: External Submitter Address: , , Performed By: #### 5 7021-8 #### [facility] CLIA [id number] [address] [place] [address] 72695 Nucleated RBC (Bld) [#/Vol] 10*3/uL Normal <0.01 [facility] Comment on above: Order Comment: Speci men Type: BLOOD SPECIMEN Ordering Facility: External Submitter Address: , , Performed By: #### 5 7021-8 #### [facility] CLIA [id number] [address] [place] [address] 93031 Nucleated RBC/100 WBC (Bld) [Ratio] 0.0 /100 WBC Normal [facility] Comment on above: Order Comment: Speci men Type: BLOOD SPECIMEN Ordering Facility: External Submitter Address: , , Performed By: #### 5 7021-8 #### [facility] CLIA [id number] [address] [place] [address] 03715 Platelet mean volume (Bld) [Entitic vol] 12.1 fL Normal 9.0-12.7 [facility] Comment on above: Order Comment: Speci men Type: BLOOD SPECIMEN Ordering Facility: External Submitter Address: , , Performed By: #### 5 7021-8 #### [facility] CLIA [id number] [address] [place] [address] 64613 Platelets (Bld) [#/Vol] 148 10*3/uL Low 150-400 [facility] Comment on above: Order Comment: Speci men Type: BLOOD SPECIMEN Ordering Facility: External Submitter Address: , , Performed By: #### 5 7021-8 #### [facility] CLIA [id number] [address] [place] [address] 03720 RBC (Bld) [#/Vol] 4.31 10*6/uL Normal 3.90-5.20 [facility] Comment on above: Order Comment: Speci men Type: BLOOD SPECIMEN Ordering Facility: External Submitter Address: , , Performed By: #### 5 7021-8 #### [facility] CLIA [id number] [address] [place] [address] 16140 WBC (Bld) [#/Vol] 6.71 10*3/uL Normal 3.70-11.00 [facility] Comment on above: Order Comment: Speci men Type: BLOOD SPECIMEN Ordering Facility: External Submitter Address: , , Performed By: #### 5 7021-8 #### [facility] CLIA [id number] [address] [place] [address] 33745 HBV surface Ag Ser Qlon 04- HBV surface Ag Ql (S) Negative Normal Negative [facility] Comment on above: Order Comment: Speci men Type: BLOOD SPECIMEN Ordering Facility: External Submitter Address: , , Performed By: #### 5 7021-8 #### [facility] CLIA [id number] [address] [place], [place] [address] HCV Ab Ser Qlon 08-08-2023 HCV Ab Ql (S) Negative Normal Negative [facility] Comment on above: Order Comment: Specbertha mares Type: BLOOD SPECIMEN Ordering Facility: External Submitter Address: , , Result Comment: The result suggests no evidence of active infection with Hepatitis C virus. Should recent infection be suspected, repeat testing may be considered 4-6 weeks after this draw. Performed By: #### 1 6128-1 #### [facility] CLIA [id number] [address] [place] [address] [place] HIV 1+2 Ab IA Qlon HIV 1 and 2 Ab IA.rapid Nom (S/P/Bld) Normal [facility] Comment on above: Order Comment: Tammy mares Type: BLOOD SPECIMEN Ordering Facility: External Submitter Address: , , Result Comment: Test not indicated. Performed By: #### 5 7021-8 #### [facility] CLIA [id number] [address] [place], [place] [address] HIV 1+2 Ab+HIV1 p24 Ag IA Ql Non-Reactive Normal Nonreactive [facility] Comment on above: Order Comment: Tammy mares Type: BLOOD SPECIMEN Ordering Facility: External Submitter Address: , , Performed By: #### 5 7021-8 #### [facility] CLIA [id number] [address] [place], [place] [address] HIV immunoassay testing algorithm interpretation (S/P/Bld) [Interp] Normal [facility] Comment on above: Order Comment: Tammy mares Type: BLOOD SPECIMEN Ordering Facility: External Submitter Address: , , Result Comment: No e vidence of HIV-1 or HIV-2 infection. Should recent infection be suspected, repeat testing may be considered 2-3 weeks after this draw. [place] Rev. Code 3701.243(E): This information has been [...] 7021-8 #### [facility] CLIA [id number] [address] [place] [address] HbA1c (Bld)on 08-08-2023 Average glucose Estimated from glycated hemoglobin (Bld) [Mass/Vol] 105 mg/dL Normal [facility] Comment on above: Order Comment: Specbertha mares Type: BLOOD SPECIMEN Ordering Facility: External Submitter Address: , , Result Comment: eAG: (Estimated average glucose) is a calculated value from HgbA1c and is home office representative of the average blood glucose level in the last 2-3 month period. Performed By: #### 5 5454-3 #### [facility] CLIA [id number] [address] [place] [address] [place] HbA1c (Bld) [Mass fraction] 5.3 % Normal 4.3-5.6 [facility] Comment on above: Order Comment: Tammy mares [...] diabetes. Performed By: #### 5 5454-3 #### [facility] CLIA [id number] [address] [place] [address] [place] RPR Ser Qlon 08-08-2023 Reagin Ab RPR Ql (S) Non-Reactive Normal Nonreactive [facility] Comment on above: Order Comment: Speci men Type: BLOOD SPECIMEN Ordering Facility: [facility] Address: [address] [place] [address] [address], [place] [address] Result Comment: Rapi d plasma reagin (RPR) test detects non-treponemal antibodies. RPR may be reactive in a variety of infectious and non-infectious conditions. Correlation with clinical picture and with treponemal antibody results is required for final interpretation. Performed By: #### G LTGST #### [facility] CLIA [id number] [place] RUBELLA IGG ANTIBODYon 08-07 RUBELLA IGG AB, QUAL Positive Normal Positive [facility] Comment on above: Order Comment: Speci men Type: BLOOD SPECIMEN Ordering Facility: [facility] [place] Address: [address] [place] [address] [address], [place] [address] Result Comment: The result suggests recent or past exposure to Rubella virus or history of Rubella vaccination. Positive result may also be seen due to presence of passively-transferred antibodies. Please correlate with patient's history. Performed By: #### G LTGST #### [facility] CLIA [id number] [facility] [address] [place] TYPE + SCREENon 08-08-2023 ABO A Normal [facility] Comment on above: Order Comment: Speci men Type: BLOOD SPECIMEN Ordering Facility: External Submitter Address: , , Performed By: #### T SCR #### [facility] CLIA [id number] [address] [place] [address] OF [place] HISTORICAL AB SCR STATUS Negative Normal [facility] Comment on above: Order Comment: Speci men Type: BLOOD SPECIMEN Ordering Facility: External Submitter Address: , , Performed By: #### T SCR #### [facility] CLIA [id number] [facility] [address] [place] Rh Nom (Bld) Positive Normal [facility] Comment on above: Order Comment: Speci men Type: BLOOD SPECIMEN Ordering Facility: External Submitter Address: , , Performed By: #### T SCR #### [facility] CLIA [id number] [facility] [place] [id number] [facility] [place] TYPE AND SCREEN EXPIRATION 08/11/2023 23:59 Normal [facility] Comment on above: Order Comment: Tammy mares Type: BLOOD SPECIMEN Ordering Facility: External Submitter Address: , , Performed By: #### T SCR #### [facility] CLIA [id number] [address] [place] [id number] [facility] [place] B-HCG SerPl-aCncon 4 HCG.beta subunit Qn m[IU]/mL Normal <5.0 [facility] Comment on above: Order Comment: Tammy mares Type: BLOOD SPECIMEN Ordering Facility: External Submitter Address: , , Result Comment: Dianne logan Performed By: #### 5 7021-8 #### MIGUEL A [facility] CLIA [id number] [address] [place], [place] [address] [facility] CNPN Telephone (HEMASA) JESSEE ALMODOVAR ([id number]) 1990 [facility] Date Time Provider Department 05/16/23 RONI DUMAS HEMJUDSON During your visit today, we recorded the following information about you: Allergies As of Date: 05/16/2023 (No Known Allergies) Date Reviewed: 04/11/2023 Reviewed by: Macy Jones APRN.[employer] - Fully Assessed Reason for Visit: Lab Orders [1688] Primary Visit Diagnosis:Possible , not confirmed [Z32.00] Order(s):HCG QUANTITATIVE [SQHCGQT] Order #: [id number] FUTURE Prescriptions as of 05/16/2023 - doxycycline [...] Status:Closed by ABHYANKAR, RONI on 05/16/23 Normal [facility] TOX SCREEN ROUT URon 024 Amphetamines Confirm (U) [Mass/Vol] Negative Normal Negative [facility] Comment on above: Order Comment: Speci men Type: BLOOD SPECIMEN [facility] Address: [facility] [place] [place] [place] [address] Result Comment: Cuto ff threshold at 1000 ng/mL. Performed By: #### G LTGST #### [facility] CLIA [id number] [address] [place] [address] [place] BARBITURATES, URINE Negative Normal Negative [facility] Comment on above: Order Comment: Speci men Type: BLOOD SPECIMEN [facility] [place] Address: [facility] [place] [address] Result Comment: Cuto ff threshold at 200 ng/mL. Performed By: #### G LTGST #### [facility] CLIA [id number] [address] [place] [address] [place] BENZODIAZEPINES, UR Negative Normal Negative [facility] Comment on above: Order Comment: Speci men Type: BLOOD SPECIMEN Ordering Facility: [facility] Address: [facility] [place] [address] Result Comment: Cuto ff threshold at 200 ng/mL. Performed By: #### G LTGST #### [facility] CLIA [id number] [address] [place] [address] [place] Cannabinoids Screen Ql (U) Negative Normal Negative [facility] Comment on above: Order Comment: Speci men Type: BLOOD SPECIMEN Ordering Facility: [facility] Address: [facility] [place] [address] Result Comment: Cuto ff threshold at 50 ng/mL. Performed By: #### G LTGST #### [facility] CLIA [id number] [address] [place] [address] [place] Cocaine Ql (U) Negative Normal Negative [facility] Comment on above: Order Comment: Speci men Type: BLOOD SPECIMEN Ordering Facility: [facility] [place] Address: [facility] [place] [address] Result Comment: Cuto ff threshold at 300 ng/mL. Performed By: #### G LTGST #### [facility] CLIA [id number] [address] [place] [address] [place] Ethanol (U) [Mass/Vol] <11 Normal <11 [facility] Comment on above: Order Comment: Speci men Type: BLOOD SPECIMEN [facility] [facility] [place] Address: [facility] [address] [place] [address] Performed By: #### G LTGST #### [facility] CLIA [id number] [facility] [place] [address] [place] Opiates Screen Ql (U) Negative Normal Negative [facility] Comment on above: Order Comment: Speci men Type: BLOOD SPECIMEN Ordering Facility: [facility] Address: [facility] [place] [place] [address] Result Comment: Cuto ff threshold at 300 ng/mL. Performed By: #### G LTGST #### [facility] CLIA [id number] [address] [place] [address] [place] oxyCODONE cutoff Screen (U) [Mass/Vol] Negative Normal Negative [facility] Comment on above: Order Comment: Speci men Type: BLOOD SPECIMEN Ordering Facility: [facility] Address: [facility] [place] [place] [address] Result Comment: Cuto ff threshold at 100 ng/mL. Performed By: #### G LTGST #### [facility] CLIA [id number] [address] [place] [address] [place] Phencyclidine Ql (U) Negative Normal Negative [facility] Comment on above: Order Comment: Speci men Type: BLOOD SPECIMEN Ordering Facility: [facility] [place] Address: [address] [place], [place] [address] [place] [address] Result Comment: Cuto ff threshold at 25 ng/mL. Performed By: #### G LTGST #### [facility] CLIA [id number] [address] [facility] [place] [place] [address] [place] B-HCG SerPl-aCncon 4 HCG.beta subunit Qn m[IU]/mL Normal <5.0 [facility] Comment on above: Order Comment: Tammy mares Type: BLOOD SPECIMEN Ordering Facility: External Submitter Address: , , Result Comment: Dianne logan Performed By: #### 5 [id number] #### [facility] CLIA [id number] [address] [place] [address] CNOVon 02-25-2023 CNOV Office Visit (ORTHMN ) JESSEE ALMODOVAR ([id number]) 1990 [facility] Date Time Provider Department 02/25/23 [...] with a (more content not included)... Normal [facility] XR HIP 3V PELV+ AP/LAT RTon 02-20-2023 [...] any questions regarding this interpretation, please call [phone]. If you are unable to reach us at the number above, please feel free to contact [facility] at [phone]. [id number] Normal [facility] XR Pelvis and Hip - right AP [...] any questions regarding this interpretation, please call [phone]. If you are unable to reach us at the number above, please feel free to contact [facility] at [phone]. DIVISION OF RADIOLOGY * * *Final Report* [...] hip are unremarkable. DIVISION OF RADIOLOGY Provider, [facility] - 02/20/2023 * * *Final [...] any questions regarding this interpretation, please call [phone]. If you are unable to reach us at the number above, please feel free to contact [facility] at [phone]. 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] Order(s):XR HIP GENERAL 3V PELV/AP/LAT RIGHT [[id number]] Order #: [id number] FUTURE Prescriptions as of 02/17/2023 - amphetamine-dextroamphe [...] Status:Closed by TIANA CRONIN on 02/17/23 Normal [facility] CBC W Auto Differential pane l (Bld)on 11-15-2022 Basophils (Bld) [#/Vol] 0.04 10*3/uL <0.11 k/uL [facility] Basophils/100 WBC (Bld) 0.8 % [facility] Differential cell count method Nom (Bld) Auto [facility] Eosinophils (Bld) [#/Vol] 0.11 10*3/uL <0.46 k/uL [facility] Eosinophils/100 WBC (Bld) 2.1 % [facility] Erythrocyte distribution width (RBC) [Ratio] 13.7 % 11.5 - 15.0 % [facility] Hematocrit (Bld) [Volume fraction] 46.7 % High 36.0 - 46.0 % [facility] Hemoglobin (Bld) [Mass/Vol] 15.6 g/dL High 11.5 - 15.5 g/dL [facility] Immature granulocytes (Bld) [#/Vol] <0.10 k/uL [facility] Immature granulocytes/100 WBC (Bld) 0.2 % [facility] Lymphocytes (Bld) [#/Vol] 1.77 10*3/uL 1.00 - 4.00 k/uL [facility] Lymphocytes/100 WBC (Bld) 33.7 % [facility] MCH (RBC) [Entitic mass] 31.8 pg 26.0 - 34.0 pg [facility] MCHC (RBC) [Mass/Vol] 33.4 g/dL 30.5 - 36.0 g/dL [facility] MCV (RBC) [Entitic vol] 95.3 fL 80.0 - 100.0 fL [facility] Monocytes (Bld) [#/Vol] 0.64 10*3/uL <0.87 k/uL [facility] Monocytes/100 WBC (Bld) 12.2 % [facility] Neutrophils (Bld) [#/Vol] 2.68 10*3/uL 1.45 - 7.50 k/uL [facility] Neutrophils/100 WBC (Bld) 51.0 % [facility] Nucleated RBC (Bld) [#/Vol] <0.01 k/uL [facility] Nucleated RBC/100 WBC (Bld) [Ratio] 0.0 /100 WBC [facility] Platelet mean volume (Bld) [Entitic vol] 11.3 fL 9.0 - 12.7 fL [facility] Platelets (Bld) [#/Vol] 154 10*3/uL 150 - 400 k/uL [facility] RBC (Bld) [#/Vol] 4.90 10*6/uL 3.90 - 5.2 0 m/uL [facility] WBC (Bld) [#/Vol] 5.25 10*3/uL 3.70 - 11. 00 k/uL [facility] CBC W Auto Differential pane l (Bld)on 08-09-2022 Basophils (Bld) [#/Vol] 0.03 10*3/uL <0.11 k/uL [facility] Basophils/100 WBC (Bld) 0.6 % [facility] Differential cell count method Nom (Bld) Auto [facility] Eosinophils (Bld) [#/Vol] 0.05 10*3/uL <0.46 k/uL [facility] Eosinophils/100 WBC (Bld) 0.9 % [facility] Erythrocyte distribution width (RBC) [Ratio] 13.6 % 11.5 - 15.0 % [facility] Hematocrit (Bld) [Volume fraction] 42.0 % 36.0 - 46.0 % [facility] Hemoglobin (Bld) [Mass/Vol] 13.5 g/dL 11.5 - 15.5 g/dL [facility] Immature granulocytes (Bld) [#/Vol] <0.10 k/uL [facility] Immature granulocytes/100 WBC (Bld) 0.4 % [facility] Lymphocytes (Bld) [#/Vol] 1.57 10*3/uL 1.00 - 4.00 k/uL [facility] Lymphocytes/100 WBC (Bld) 29.0 % [facility] MCH (RBC) [Entitic mass] 30.5 pg 26.0 - 34.0 pg [facility] MCHC (RBC) [Mass/Vol] 32.1 g/dL 30.5 - 36.0 g/dL [facility] MCV (RBC) [Entitic vol] 94.8 fL 80.0 - 100.0 fL [facility] Monocytes (Bld) [#/Vol] 0.47 10*3/uL <0.87 k/uL [facility] Monocytes/100 WBC (Bld) 8.7 % [facility] Neutrophils (Bld) [#/Vol] 3.27 10*3/uL 1.45 - 7.50 k/uL [facility] Neutrophils/100 WBC (Bld) 60.4 % [facility] Nucleated RBC (Bld) [#/Vol] <0.01 k/uL [facility] Nucleated RBC/100 WBC (Bld) [Ratio] 0.0 /100 WBC [facility] Platelet mean volume (Bld) [Entitic vol] 11.1 fL 9.0 - 12.7 fL [facility] Platelets (Bld) [#/Vol] 145 10*3/uL Low 150 - 400 k/uL [facility] RBC (Bld) [#/Vol] 4.43 10*6/uL 3.90 - 5.2 0 m/uL [facility] WBC (Bld) [#/Vol] 5.41 10*3/uL 3.70 - 11. 00 k/uL [facility] XR Pelvis and Hip - [...] any questions regarding this interpretation, please call [phone]. If you are unable to reach us at the number above, please feel free to contact [facility] at [phone]. DIVISION OF RADIOLOGY * * *Final Report* [...] interval. DIVISION OF RADIOLOGY Provider, Tom Salinas [facility] - 08/01/2022 * * *Final Report* [...] any questions regarding this interpretation, please call [phone]. If you are unable to reach us at the number above, please feel free to contact [facility] at [phone]. [facility] Radiology Study observation (narrative) [facility] XR Pelvis and Hip - right AP and Lateral frogOrdered By: Ccf Provider on 08-01-2022 [facility] Ambulatory Visit Summaryon 0 05-26-2022 [...] Up with CHELSEA KRAUS DO When: Where: [facility] [address] [place] [address]- Medications What How Much When Why Instructions New amoxicillin (amoxicillin 500 mg Cap) 1 Capsules By Mouth Every 12 hours Strep pharyngitis Duration: 10 Days Pickup at [facility] 1984 Unchanged biotin Contact prescribing [...] physician if questions or concerns Pharmacy Information [facility] 1986: [address] [facility] [place], [place] [id number] [phone] Allergies No Known Allergies Problems Ongoing - [...] these instructions at home: Medicines ? Take qoyf-vhe-ckfuioz and prescription medicines only as told by [...] not included)... Normal 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 No aqlx-ffw-lgbcnfb medications today. Review of Systems PHQ Score [...] day(s), # 20 cap(s), Refills(s) 0, Pharmacy: [facility] 1984, 172, cm, 05/26/22 [...] Acute pharyngitis, unspecified) Ordered: Rapid Strep POC 32714 Follow-up With When Contact Information CHELSEA KRAUS DO [facility] [address] [place] [address]- Additional Instructions: Patient Education Strep Throat, Adult, Rocg-zi-Qorz BMI for Adults Problem List/Past Medical History [...] Strep POC Result: Positive (05/26/22 09:56:00) Normal [facility] Comment on above: Result Comment: Elec tronically [...] these instructions at home: Medicines ? Take pbbr-xus-owgsnjp and prescription medicines only as told by [...] 09/23/2008 Document Revised: 06/25/2019 Document Reviewed: 06/25/2019 Emotive Patient Education ? 2020 [employer]. Nutrition BMI for Adults Body mass index (BMI) is a number that is calculated from a person's weight and height. BMI may help to estimate how much of a person's weight is composed of fat. BMI can help identify those who may be (more content not included)... Normal [facility] Coding Summary.on 02-26-2022 Coding Summary. [id number] Gh0 bWw+PGhlYWQ+JQ7GRIGwA56 mnFVypE2WR5pZVQ5FWRASHD TUUN6YCH0zdPX1JRauO0Oxx iAv CvllfIFmNI87FDs8BZF4gSa jSTivoR6zlZArZ6d8LfLbJV 69oF34KLzbYXEoDbI1XeAib jsgbWFy T0ihGwTjgMUnWtm+PHRhYmx lIHdpZHRoPScxMDAlJyBzdH opJL5uMz1pGIVpRJSwhNnhn HNlOiBj t4ulHKVaZBtiTT3znTagS0U rhQK0MZTwh1i7Fc47oBS+PH TvHZG9rPegNOgul574OrFas 9neWXC6 uKUmHYpiSWF1D87xc9B5ABS bQPDjJAT3cNF6hS3pyNemex ugI0YuvZEzFsZ9IBG3dCIdj W4ppWof vwntlC5iOyz+D08PMI8TJIM SPE3FQgu0Z7UkPmhohPS+PC 27SVFnND67wOYfjMQow8eyv Xc4CwKa WLDhLJP7uPqhJJtgk8LxXHM gM92gkPQbr3L8RPMnpOutlV AkVlMahYF9cT5oNHetghmpj 2hvdzsn Msbkd6naxl68iU94B38rBDf aYGTaCYN3YCVjLDViyVgzxq 1msG9pUu9+GJgrs0ueh1oez Lp1LvNr XOCtffQbqUxhXCZ0h4WrDn6 7R5GdpIeky6QkSrt6sp31eG Sdd0J6oSO2CYbjNHYyyK3aZ WxlZnQ6 CQAqYoBfoV42aOImMGrsYs3 akVhotDauBG5zZINaezdpPJ OoqF7vULDmwFClwZrwRZ3hX TBpbjtm h397UcUiTXN9VDZirSMqD3Q uyM8sJeDoUDReSXZqW6XctP YcQBuyK509EFcuJwE1XRYtj tLjO6Zo PFSfgKuyWgB8e3A0Mh0Xs4V cwattNET9XKexCXSmJtN1Hf SdLnS5N2EoAgq4KEVoeNbrY U9aG2Hx QHZkdebhzoretWG1HTKnOCK liM28jFQxQZmuUz1oa0D7u5 30SGLkZUUepG04Ym9pvXchT TBwdCBU jQ8bxotdp0uurjmaSjTqKFV mJDz8BSc5BYFujFgbSaSdPJ J3ExA4PTF2gSYcnP0xfRjfc uxdaY2y Oyc+H48dfE9pTHP6MAP5ajm xQBVwmvDtRF20HX70N1KyAw wvdGFibGU+PGRpdiBzdHlsZ M2fZcIq p0jlk4PpTOmcN2RdYLPhEZo uWjb6PDYbBZX3uOD0zG8nCN EsITejr5P0gLN3U5GqgbRjl t2zt6vy LGVoGPjjB81flNWxz9J1IUO ddWX5RMFhrOpaGmBfbC34Fz c+BFBzzDnem2CqLfiyx4gjl 1retKi9 EjSqPOIzitKxbEtbSKM0w2P oBa20V10tPEsfNLGcMRKsXG IlTVKhlFayzq9idQ9kFe0+P GNvbCB3 qBH6vT6aGUXwShV6CJbeB64 1ZrQfzZOeIczqw4cdc7fqqL k6BbPkMWMxbpXxvSkbQGT7c 6CgJr49 D88lMBqqIGHxDCTcDAHeDBA hoRcoiw2soJ2lUd7+PC9jb2 xfbf27iS54qQY+CWXvWSV9q WxlPSdw YBJimN8eSLltZwO0GVPgQaL ybB08oKPtKYzvHj8zbRbgrE smXY7jZVShhisph848KeDbf 2xkIDEw kUPiJHsmBWG5T34ty8Z1FRH vBTRgZYS4uIO1nC5gqMpxhy ogbGVmdDsgdmVydGljYWwtY ZhwX173 IHRvcDsnPlBhdGllbnQgTmF xUEi9B1OsAqs9FBLapBmfFB 0qfYXdNSigQj5dqDpmeRxlN Y5aNKGv xeaxw551YqIeo9oqVJXtpPL vBAblPYI6A29ee4J8EBRoPD YjXON2yDB4mO5vdEjuwruyp GVmdDsg pbWlkOgnJAxuPNsfD928KQW quFwgAjDdphUhAJYpxHN0LV 90LK67iRFyh7S0sJT0Q7JiQ GRpbmct cnpmdLJ0JSJwAZIdxQ12La6 yuBvxFf1aCYSbTCD8TJJrfP DuD5VkwI5qEbLvJUFxZZSmG 3RleHQt AMduA545GYmxUfK7OUNhytH pV3GdIADlbQqeIcQ1o1W9Zj 2SF0Q6AK49ES18nMNsl5J5z NL9S3Ef OMUpwnkvmpsrvDK5CEWxYBU hxQ35Wa3loFgqYb7uWADfEI O0WCJokIZnU0HptA7kMbBlW DAwMDAw X4NefGZtPOtsG636UQjpKeL 0QPFwudOkU2HfHCOkrMjxHv W0g0G1Cq3XVIr1LS24UX12r RNuc4I8 cGD9P2RzCEIhxegnkknkpDX 2LHPiYSDhiW97Ef0ryHiwJu 7jWTCeUPI8KOWbmFYiI9Swa I4oWnUd PUGyXJYuB8CnnUUgUZvkW23 7YRuyWoY7BFSmwvMlU4FmFY GsyRxdVjL3h7U9Dm6FZZUdX D60PEI4 iDJ5NA64GM06K0FrStndhHJ ibGU+PHRhYmxlIHdpZHRoPS txAWPvAxWmxSehSN5kTm9jV GVyLWNv fRliwUCnBgCvy2itEUNeEPp cEX7bjNfpA9VlpGW9TTYnz2 k2Pm61T23yY2RvcOM+PGNvb DT7iEW1 uM4hOiOcLbH2MOheD542JzS ncLVdJvqzt3gmk8kgwMm6Ki S6NSVuanLanPtlOLD2b8IpV a40G53l IHdpZHRoPSIxNSUiIHZhbGl vgy7liS4rYx2+DYIykAP8hA M4bJ2zVcEzFkU4ZOcyY645H nRvcCIv Uhoyw3enq0eigRt7YqNdCWE ubsKiyQpsGUD0n9NlTy50Z9 LcwUdxn3JbXor5vc59mURee 6Z1qFT2 Q3IcIQDygmpxfRGllKwyNE1 xFKWgwqvjWBVwhU0cFOXqY7 k4SoSwAiP3AZqoU5GtkeZ5S DEwcHQg RPzuUUF6R07ia9E5NJFlYUY fDNJ2rZH0mZ6bfFjrplrlvK VmdDsgdmVydGljYWwtYWxpZ 246IHRv sHxfKGLiwC9qNSVsdZUkpXb aSR4vPONzmyhuHqaTYWySHK hHXjkiFOJSWL04X6VfXqu2Y CBzdHls WG4aeIThXTghFf3acSzfqTu jOZ7tAMLexduzVHLhvN7sBP TntJUqsKhwPA7eAMIqnztue 250OiAx PKH8UPOjfXKbN1AajD2fDzH uBGKsVRLxA3OgaDPhANqhT2 44HHonRlY5HXThitPtM7QcY WFsaWdu AnD6v9T5Zf1iXI7kCF9gKOn xTC27DM12iSCaj9D3rJO3M8 EuKFRxnpheknczvKO3AJFgJ DUwaW47 fRSgNGkjCh9xb1B4g858OER hCPAivQ30Wc6jzAmgKVAihJ LRxW0idgqed3dflppnKiHvF DAwMDt0 CQs4IFAevApuXnNvMMS6ZfY 2UTW0lLUasW9xkLjpxbdozM 9wOyc+BnTmDNCtwuS3P7PcQ kz1WNHu cRihYH7skWEeREfvNw6ofOa ryXufNR4uVUBhtsruINWsqZ 9eHACloZOhxMtiZL9pCVWdu hfjz840 GcMjTDW6FWLfmNAqH9HhtU6 oAyQxVLZpXFAjY9BgoVMqLO hqG812JAqrLxZ2BTSmdqOrS 2FsLWFs fPmpOfQ5v3Y4Ie1KXV2nrGY 2K8MlMzd7AMIsuYesYU0uvV HpGRzpNd5pfNspcKlsFX3hO TBpbjtw BKLgoT2zVTFdhTMbvTkbKU5 cENFoawfnf136IwCtCXF0II FkqHApW8GnbG3wDhGaYMJaX VVpH8Cw xJZrZOwwL581YOisKgC9QVT pqlRxE4StVJEyjCeqVvG8a8 N8Se4FuWNwV6ThN0p5O9TeI jwvdHI+ QR14UDNaTQ48dIBbaOWks5x wnCa7UzRfSMMfLMG9fKncAR oey4CoMZSuD33jbDOmy8R6H GNvbGxh iFQnBqAnpHF2uZ8dZPavkdm bh0etvtrgWzhug1mxkl56eL 78P14cPBlfOWPfWFLyIKEyX HZhbGln rj4hhB6vYw9+OVZfwYP6lNA 6tZ6nRwTaMnV2NMctS097Kn WqjBMpCgxre0cjh2gmmMq5U jIwJSIg wkFdlDerUZZ3w4HsKj38T56 sIHdpZHRoPSIyMCUiIHZhbG knsk1wyT3wQn6+VA9hr4zde j97tR72 dHI+EKBnKTL6qBweBEjnTOM dyP4eRAcmMiF8JFQiXpDagX 47pVEbROwuYz3xzQmdcAzcF X9gIKWu vqkdy776TtEat6xfIQKwtXQ oYNpoWYQ3N91ve7B3WLRiNB PkCGK9uXP3dL6evFqitkrcj GVmdDsg kaVrpJfzAUwlAJpqO593QJP uuMicFjOdcAUtM3qirfJNZJ 1lOjwvdGQ+GXHrEUP0rHulY SdwYWRk qT2uJXQuW3e3QjAlTwM6FGl cC5WmuvQ2TPOwvXRnJUKkmS MChH2klubek8sdrbkyGzZjB DAwMDt0 KPf0LVEiyXbrNhRjALC7GkG 1KQD9vWCstD9usCjiqidcuM 9wOyc+RklOOjwvdGQ+PHRkI AJ9dWqr ERjlTMZzuH9vSXIvJ5x1KuA zZuW0FIcnZ0HggjC4XUXyeT JtRYZyxRNOyV2gzvwea8udy jogIzAw MHCrBUc4VGb0VHPpmQyuLoV zMEQ4KqY5UQO0qVKdqK2nrQ obnlfktS5jGri+TVJOOjwvd GQ+PHRk YZV8wDtuVYewXDPkwA6rLSN yW1a3LkCpUyC1LSmtI0Brma C5PUVoxWAlHZBhcDXOsO2xa vbse1hz lvafIlTfADAuSTo3GXq1GEK xsKesIqKgUVD8EfC8CYN7cC RacX0vvLmtukymgK1uQxy+U BW8MFN0 MX60IU22J7GoXlvunRPhvZW +PHRhYmxlIHdpZHRoPScxMD GkNbLuiOawGZ8eVy5eEYYbE WNvbGxh cHNl (more content not included)... Normal [facility] Discharge Instructionson Discharge Instructions [id number] CD:127 Normal [facility] ED Clinical Summaryon 2021 ED Clinical Summary [address] [address] ED Clinical Summary Person Information Name: JESSEE ALMODOVAR/Mindy Age: 32 Years : 1990 Sex: Female Language: Swiss PCP: Marital Status: Phone: [phone] Visit Id: Visit Reason: Foot pain-swelling; HURT [...] 02/23/2022 11:07:01 02/23/2022 11:07:01 ADDRESS: [place] [id number] PHYS DOC NOTES: MEDICAL INFORMATION: Prescriptions Given: PATIENT EDUCATION INFORMATION: Instructions: Foot Sprain; How to Use Cold Therapy, Qjyw-xt-Gaya; Elastic Bandage and RICE Therapy Follow up: With: Address: When: [employer], [address] [place], [place] [id number] [facility] () In 3 days 02/26/2022 Comments: Follow-up with your primary care provider in 3 to 5 days. If symptoms worsen, do not improve, or new symptoms arise please report back to emergency department for further evaluation. DIAGNOSIS: Sprain of left foot Normal [facility] ED Note-Physicianon 02-24-20 ED Note-Physician Basic Information [...] Information CHELSEA KRAUS In 3 days 02/26/2022 [facility] [employer] [address] [place], [place] [id number] Business (1) Additional Instructions: Follow-up with your primary care provider in 3 to 5 days. If symptoms worsen, do not improve, or new symptoms arise please report back to emergency department for further evaluation. Patient Education Foot Sprain How to Use Cold Therapy, Fvdw-py-Gvtb Elastic Bandage and RICE Therapy Attestation Patient seen and evaluated by the physician orthopaedic physician assistant. Attending physician was present in the emergency department and supervised care. This visit was performed by both the physician and an APC. I performed all aspects of the MDM as documented. This report was transcribed using voice recognition software. Every effort was made to ensure accuracy, however, inadvertently computerized director of perioperative services mistakes may be present. Appropriate healthcare PPE [...] medications Ho (more content not included)... Normal [facility] Comment on above: Result Comment: Elec tronically [...] This may take several hours. ? Take sewt-tps-uttueyi and prescription medicines only as told by [...] is no (more content not included)... Normal [facility] ED Patient Summaryon ED Patient Summary (Inserted Image. Kelsi ble to display) [address] [address] Patient Discharge Instructions Person Information Name: JESSEE ALMODOVAR Age: 32 Years Arrival Date: 02/23/2022 09:05:13 Discharge Diagnosis: Sprain of left foot Primary Care Physician: Provider Information Primary Provider: Chayo Anne DO Advanced Process Control Operator:None The exam and treatment you received in the Emergency Department were for an urgent problem and are not intended as complete care. It is important that you follow up with a doctor, nurse practitioner, or physician?s orthopaedic physician assistant for ongoing care. If your symptoms become worse or you do not improve as expected and you are unable to reach your usual health care provider, you should return to the Emergency Department. We are available 24 hours a day. JESSEE ALMODOVAR has been given the following list of patient education materials, prescriptions and follow-up instructions: Follow-up Instructions: With: Address: When: [facility]HELSEA [facility], [address] [place] [address] Business (1) In 3 days 02/26/2022 [...] Foot Sprain; How to Use Cold Therapy, Ngaz-nh-Wtjp; Elastic Bandage and RICE Therapy A MESSAGE TO ALL PATIENTS REGARDING OPIOIDS PRESCRIPTION OPIOIDS: WHAT YOU NEED TO KNOW Prescription opioids can be used to help relieve xndgnevv-iz-lbcber pain and are often prescribed following a [...] Visit www.cdc.gov/ (more content not included)... Normal [facility] XR Foot 3+ Views Lefton 11-0 XR [...] DO Transcribed by: SUZY Technologist: TIM Normal [facility] XR Pelvis and [...] any questions regarding this interpretation, please call [phone]. If you are unable to reach us at the number above, please feel free to contact [facility] at [phone]. DIVISION OF RADIOLOGY * * *Final Report* [...] joint appears preserved. DIVISION OF RADIOLOGY Provider, [facility] - 02/19/2022 * * *Final Report* * [...] any questions regarding this interpretation, please call [phone]. If you are unable to reach us at the number above, please feel free to contact [facility] at [phone]. [facility] XR Pelvis and Hip - right AP and Lateral frogOrdered By: Ccf Provider on 02-19-2022 [facility] XR Pelvis and Hip - right AP and Lateral frogon 02-18-2022 Radiology Study observation (narrative) [facility] CT ABD/PELV W CONon 02-12-20 [...] by: EMELIA STEWART Date: 2022-02-11 07:23 Normal [facility] US PELVIS AND TRANSVAGon US [...] by: JENNIFER HARTLEY Date: 2022-01-08 14:12 Normal [facility] UA DIP, URINE (POC)on 2021 BILIRUBIN UA (POCT) Negative Negative [facility] CLARITY UA (POCT) Cloudy [facility] COLOR UA (POCT) Yellow [facility] GLUCOSE UA (POCT) Negative Negative mg/dL [facility] HEMOGLOBIN/BLOOD UA (POCT) Trace-intact Abnormal Negative [facility] KETONE UA (POCT) Negative Negative mg/dL [facility] LEUKOCYTES UA (POCT) Small Abnormal Negative [facility] NITRITE UA (POCT) Negative Negative [facility] PH UA (POCT) 6.5 4.5 - 8.0 [facility] Protein Ql (U) Negative Negative mg/dL [facility] SPECIFIC GRAVITY UA (POCT) 1.015 1.005 - 1.030 [facility] UROBILINOGEN UA (POCT) 0.2 E.U./dL Normal E.U./dL [facility] Large Joint Arthro/Inj: R gr eater trochanteric bursa [facility] Vital Signs Date Time Vital Sign Value Performing Clinician Facility 02-18-2024 10:23-0400 Body mass index (BMI) [Ratio] 30.42 kg/m2 Franny COSTELLO Work Phone: [facility] 02-18-2024 10:23-0400 Body weight 103.15 kg Franny COSTELLO Work Phone: [facility] 02-18-2024 10:23-0400 Diastolic blood pressure 68 mm[Hg] Franny COSTELLO Work Phone: [facility] 02-18-2024 10:23-0400 Systolic blood pressure 112 mm[Hg] Franny COSTELLO Work Phone: [facility] 02-10-2024 13:39-0400 Body mass index (BMI) [Ratio] 29.83 kg/m2 Guillaume Pedro DO Work Phone: [facility] 02-10-2024 13:39-0400 Body weight 101.15 kg Guillaume Pedro DO Work Phone: [facility] 02-10-2024 13:39-0400 Diastolic blood pressure 70 mm[Hg] Guillaume Pedro DO Work Phone: [facility] 02-10-2024 13:39-0400 Systolic blood pressure 120 mm[Hg] Guillaume Pedro DO Work Phone: [facility] 01-27-2024 10:17-0400 Body mass index (BMI) [Ratio] 29 kg/m2 Franny COSTELLO Work Phone: [facility] 01-27-2024 10:17-0400 Body weight 98.34 kg Franny COSTELLO Work Phone: [facility] 01-27-2024 10:17-0400 Diastolic blood pressure 60 mm[Hg] Franny COSTELLO Work Phone: [facility] 01-27-2024 10:17-0400 Systolic blood pressure 110 mm[Hg] Franny COSTELLO Work Phone: [facility] 02-25-2023 13:16-0500 Body height 185.4 cm Rosas Mckinney MD Work Phone: [facility] 02-25-2023 13:16-0500 Body weight 76.67 kg Rosas Mckinney MD Work Phone: [facility] 07-10-2022 15:15-0400 Body height 181.61 cm Imad Asaad Other [facility] Other 07-10-2022 15:15-0400 Body mass index (BMI) [Ratio] 24.48 kg/m2 Imad Asaad Other [facility] Other 07-10-2022 15:15-0400 Body weight 80.74 kg Imad Asaad Other [facility] Other 07-10-2022 15:15-0400 Diastolic blood pressure 78 mm[Hg] Imad Asaad Other [facility] Other 07-10-2022 15:15-0400 Systolic blood pressure 130 mm[Hg] Imad Asaad Other [facility] Other 05-26-2022 09:29-0500 Blood Pressure Location Roxanne MOSLEY [facility] 05-26-2022 09:29-0500 Body temperature 98.42 [degF] Roxanne MOSLEY [facility] 05-26-2022 09:29-0500 Diastolic blood pressure 78 mm[Hg] Roxanne MOSLEY [facility] 05-26-2022 09:29-0500 Heart rate 115 /min Roxanne MOSLEY [facility] 05-26-2022 09:29-0500 SaO2% (BldA) [Mass fraction] 98 % Roxanne MOSLEY [facility] 05-26-2022 09:29-0500 Systolic blood pressure 120 mm[Hg] Roxanne MOSLEY [facility] 02-23-2022 09:10-0400 Body temperature 98.42 [degF] Chayo Anne [facility] 02-23-2022 09:10-0400 Diastolic blood pressure 67 mm[Hg] Chayo Anne [facility] 02-23-2022 09:10-0400 Heart rate 88 /min Chayo Anne [facility] 02-23-2022 09:10-0400 Respiratory rate 18 /min Chayo Anne [facility] 02-23-2022 09:10-0400 SaO2% (BldA) [Mass fraction] 98 % Chayo Anne [facility] 02-23-2022 09:10-0400 Systolic blood pressure 141 mm[Hg] Chayo Anne [facility] Encounters Encounter Date Encounter Type Care [...] Start: 02-05-2024 End: 02-05-2024 ambulatory ANUPAMA BROWN Facility:[facility] Start: 01-27-2024 End: 01-27-2024 Bamboo [...] Start: 01-19-2024 End: 01-19-2024 ambulatory ANUPAMA BROWN Facility:[facility] Start: 01-13-2024 End: 01-13-2024 ambulatory GUILLAUME PEDRO Not Available Start: 01-05-2024 End: 01-05-2024 ambulatory ANUPAMA BROWN Facility:[facility] Start: 12-30-2023 End: 12-30-2023 ambulatory GUILLAUME PEDRO Not Available Start: 12-16-2023 End: 12-16-2023 ambulatory GUILLAUME PEDRO Not Available Start: 12-08-2023 End: 12-08-2023 ambulatory GUILLAUME R PEDRO Facility:[facility] Start: 11-20-2023 End: 11-20-2023 ambulatory FRANNY L KIN Facility:[facility] Start: 11-18-2023 End: 11-18-2023 ambulatory FRANNY KIN Not Available Start: 10-22-2023 End: 10-22-2023 ambulatory GUILLAUME R PEDRO Facility:[facility] Start: 10-21-2023 End: 10-21-2023 ambulatory GUILLAUME PEDRO Not Available Start: 10-16-2023 End: 10-16-2023 ambulatory [facility] Start: 09-24-2023 End: 09-24-2023 ambulatory FRANNY KIN Not Available Start: 08-26-2023 End: 08-26-2023 ambulatory GUILLAUME PEDRO Not Available Start: 08-08-2023 End: 08-08-2023 ambulatory ANUPAMA BROWN Facility:[facility] Start: 07-24-2023 End: 07-24-2023 ambulatory GUILLAUME PEDRO Not Available Start: 06-04-2023 End: 06-04-2023 ambulatory ASIF [facility] Start: 06-02-2023 End: 06-02-2023 Phys/qhp telephone evaluation 5-10 min Guillaume Velasquezo DO Work Phone: [facility] Comment on above: Irregular menses (Pr imary Dx) Start: 06-02-2023 End: 06-02-2023 ambulatory GUILLAUME PEDRO Not Available Start: 05-28-2023 Chart abstracting Guillaume Velasquezo DO Work Phone: [facility] Start: 05-16-2023 End: 05-16-2023 ambulatory ANUPAMA BROWN Facility:[facility] Start: 05-05-2023 End: 05-05-2023 ambulatory ANUPAMA DANIELLE HENDRICKSKER Facility:[facility] Start: 05-02-2023 End: 05-02-2023 ambulatory ASIF [facility] Start: 05-02-2023 End: 05-02-2023 Office outpatient visit 25 minutes Asif Schaefer [employer] Work Phone: [facility] Comment on above: Attention deficit hy peractivity disorder (ADHD), predominantly inattentive type (Primary Dx); Moderate episode of recurrent major depressive disorder ([facility]); Generalized anxiety disorder Start: 03-04-2023 End: 03-04-2023 ambulatory GUILLAUME VASQUEZ Not Available Start: 02-25-2023 End: 02-25-2023 ambulatory ANUPAMA BROWN Facility:[facility] Start: 02-25-2023 End: 02-25-2023 Office outpatient visit 25 minutes Rosas Mckinney MD Work Phone: Orthopaedics Comment on above: Lytic bone lesion of femur (Primary Dx); Greater trochanteric bursitis of right hip; Chronic pain of right hip; Chronic low back pain, unspecified back pain laterality, unspecified whether sciatica present; Pain of right hip; Bone lesion Start: 02-20-2023 End: 02-20-2023 ambulatory ANUPAMA BROWN Facility:[facility] Start: 02-20-2023 End: 02-20-2023 Subsequent [...] 07-10-2022 End: 07-10-2022 ambulatory Imad Asaad Other Cint Other Start: 07-10-2022 Office outpatient ne w 45 minutes Imad Asaad [facility] Start: 05-26-2022 End: 05-27-2022 ambulatory Roxanne MOSLEY Facility:[facility] Start: 05-26-2022 End: 05-26-2022 Patient encounter procedure Roxanne MOSLEY [facility] Start: 05-08-2022 End: 05-08-2022 ambulatory PRAVIN HAGER Facility: Start: 02-26-2022 End: 02-26-2022 Patient encounter procedure Rosas Mckinney MD Work Phone: Orthopaedics Comment on above: Lytic bone lesion of femur (Primary Dx) Start: 02-23-2022 End: 02-23-2022 Emergency department patient visit Chayo Anne Facility[facility] Start: 02-23-2022 End: 02-23-2022 Emergency department patient visit Chayo Dayana [facility] Start: 02-18-2022 End: 02-18-2022 Subsequent hospital [...] Dx) Start: 10-04-2021 Orders Only Macy Jones APRN.[employer]CHO[employer] CLE[employer]ER Work Phone: Hematology/Oncology Comment on above: Acute [...] dip stick/tabl et rgnt non-auto w/o micrscp Frnany COSTELLO Work Phone: Start: 10-21-2023 Microscopic observat ion [Identifier] in Cervix by Cyto stain Franny COSTELLO Work Phone: Start: 08-08-2023 Antibody screen ANUPAMA AVERY Comment on above: Order Comment: Speci men Type: BLOOD SPECIMEN Ordering Facility: External Submitter Address: , , Performed By: #### T SCR #### CC MAIN BLOOD BANK [facility] [id number] [place] Start: 02-25-2023 Arthrocentesis aspir &/inj major jt/bursa w/o us Tiana Cronin PA-C Work Phone: Start: 02-20-2023 Radex hip unilateral with pelvis 2-3 views Roni Dumas MD Work Phone: Start: 08-08-2022 Adult depression scr eening assessment Asif Schaefer [employer] Work Phone: Start: 08-01-2022 Radex hip unilateral [...] Td Vaccines (4 - Td or Tdap) [facility] Start: 01-04-2030 Urine microalbumin profile DTa P,Tdap,Td Vaccine (4 - Td or Tdap) [facility] Start: 10-20-2028 Screening for malign ant neoplasm of cervix [facility] Start: 04-06-2024 End: 04-06-2024 ambulatory 04/06/2024 9:30 AM EST Visit [facility] [address] [id number] Franny Hager PA [address] [place], [place] [id number] [facility] Start: 03-10-2024 Tobacco Screening Tobacco Screening [facility] Start: 02-23-2024 Screening for malign ant neoplasm of cervix [facility] Start: 02-18-2024 End: 02-18-2024 Patient encounter procedure 02/18/2024 9:40 AM EDT Routine [facility] [address] [phone] Franny Hager PA [address] [place], [place] [id number] [facility] Start: 02-10-2024 End: 02-09-2025 Strep B DNA probe, amplification Strep B DNA probe, amplification Lab Routine Third trimester Expected: 02/10/2024 (Approximate), Expires: 02/09/2025 [facility] Work Phone: Comment on above: Expected: 02/10/2024 (Approximate), Expires: 02/09/2025 Start: 02-10-2024 End: 02-10-2024 Patient encounter procedure 02/10/2024 1:00 PM EDT Routine [facility] [address] [place] [phone] Guillaume Vasquez DO [address] [place], [place] [id number] [facility] Start: 12-21-2023 Covid-19 Vaccine ( season) Covid-19 Vaccine ( season) [facility] Start: 12-21-2023 Covid-19 Vaccine () Covid-19 Vaccine ( season) [facility] Start: 12-21-2023 Influenza vaccination Influenza Vacc ine (#1) [facility] Start: 08-09-2023 Adult BMI Screening Adult BMI Screen ing [facility] Start: 08-09-2023 Depression Screening Depression Scre ening [facility] Start: 05-29-2023 End: 05-29-2023 Patient encounter procedure 05/29/2023 8:10 AM EST Office Visit [facility] [address] [address] Guillaume Vasquez, DO [address] [place] [address] Irregular menses [facility] Comment on above: Irregular menses Start: 12-20-2022 Covid-19 Vaccine ( season) Covid-19 Vaccine ( season) [facility] Start: 12-20-2022 Influenza vaccination INFLUENZA (#1) [facility] Start: 11-15-2022 End: 01-15-2023 Comprehensive metabolic 2000 panel - Serum or Plasma [facility] Work Phone: Comment on above: Expected: 11/15/2022 , Expires: 01/15/2023 Start: 11-15-2022 End: 01-15-2023 Lipid 1996 panel - Serum or Plasma [facility] Work Phone: Comment on above: Expected: 11/15/2022 , Expires: 01/15/2023 Start: 11-15-2022 End: 01-15-2023 T4/FTI/T4U [facility] Work Phone: Comment on above: Expected: 11/15/2022 , Expires: 01/15/2023 Start: 11-15-2022 End: 01-15-2023 Thyrotropin [Units/volume] in Serum or Plasma [facility] Work Phone: Comment on above: Expected: 11/15/2022 , Expires: 01/15/2023 Start: 08-26-2022 End: 03-28-2023 XR HIP GENERAL 3V PELV/AP/LAT RIGHT XR HIP GENERAL 3V PELV/AP/LAT RIGHT Radiology Routine Lytic bone lesion of femur Expected: 08/26/2022, Expires: 03/28/2023 [facility] Work Phone: Comment on above: Expected: 08/26/2022 , Expires: 03/28/2023 Start: 08-09-2022 End: 10-09-2022 25-hydroxyvitamin D3 [Mass/volume] in Serum or Plasma [facility] Work Phone: Comment on above: Expected: 08/09/2022 , Expires: 10/09/2022 Start: 04-21-2022 DEPRESSION ASSESSMENT DEPRESSION ASS ESSMENT [facility] Start: 12-20-2021 Influenza vaccination INFLUENZA (#1) [facility] Start: 12-06-2021 End: 02-05-2022 Thyrotropin [Units/volume] in Serum or Plasma [facility] Work Phone: Comment on above: Expected: 12/06/2021 , Expires: 02/05/2022 Start: 12-06-2021 End: 02-05-2022 Thyroxine (T4) free [Mass/volume] in Serum or Plasma [facility] Work Phone: Comment on above: Expected: 12/06/2021 , Expires: 02/05/2022 Start: 12-06-2021 End: 02-05-2022 Triiodothyronine (T3) [Mass/volume] in Serum or Plasma [facility] Work Phone: Comment on above: Expected: 12/06/2021 , Expires: 02/05/2022 Start: 11-08-2021 End: 01-08-2022 Choriogonadotropin ( test) [Presence] in Urine [facility] Work Phone: Comment on above: Expected: 11/08/2021 , Expires: 01/08/2022 Start: 11-08-2021 End: 01-08-2022 URINALYSIS, REFLEX MICROSCOPIC [facility] Work Phone: Comment on above: Expected: 11/08/2021 , Expires: 01/08/2022 Start: 04-21-2021 DEPRESSION ASSESSMENT DEPRESSION ASS ESSMENT [facility] Start: 2021 HPV TESTING HPV TESTING [facility] Start: 10-13-2020 COVID-19 VACCINE (3 - Booster for Moderna series) COVID-19 VACCINE (3 - Booster for Moderna series) [facility] Start: 07-10-2020 COVID-19 VACCINE (3 - Booster for Moderna series) COVID-19 VACCINE (3 - Booster for Moderna series) [facility] Start: 07-10-2020 COVID-19 VACCINE (3 - Moderna series) COVID-19 VACCINE (3 - Moderna series) [facility] Start: 02-08-2012 PAP TESTING PAP TESTING [facility] Start: 02-08-2012 Screening for malign ant neoplasm of cervix [facility] Start: 2010 Urine microalbumin profile DTA P,TDAP,TD (1 - Tdap) [facility] Start: 2009 Anxiety Screening Anxiety Screening [facility] Start: 2009 Depression Screening Depression Scre ening [facility] Start: 2009 HEPATITIS C SCREENING HEPATITIS C SC REENING [facility] Start: 2009 HIV SCREENING HIV SCREENING [facility] Start: 2003 Adult depression scr eening assessment DEPRESSION SCREENING [facility] Start: 1997 Pneumococcal vaccination [facility] Start: 1991 HEPATITIS B (1 of 3 - 3-dose series) HEPATITIS B (1 of 3 - 3-dose series) [facility] Bacteria identified in Urine by Culture URINE CULTURE Microbiology Routine Pelvic pain 11/08/2021 11:36 AM EDT [facility] Work Phone: End: 06-02-2023 Drug Screen, Urine Drug Screen, Urine Lab Routine Attention deficit hyperactivity disorder (ADHD), predominantly inattentive type 1 Occurrences starting 05/02/2023 until 06/02/2023 [facility] Work Phone: Comment on above: 1 Occurrences starti ng 05/02/2023 until 06/02/2023 End: 03-26-2024 MRI HIP WO IVCON RIGHT MRI HIP WO IVCON RIGHT Radiology Routine Greater trochanteric bursitis of right hip Chronic pain of right hip Pain of right hip Bone lesion 1 Occurrences starting 02/25/2023 until 03/26/2024 [facility] Work Phone: Comment on above: 1 Occurrences starti ng 02/25/2023 until 03/26/2024 End: 03-18-2024 XR HIP GENERAL 3V PELV/AP/LAT RIGHT XR HIP GENERAL 3V PELV/AP/LAT RIGHT Radiology Routine Lytic bone lesion of femur 1 Occurrences starting 02/17/2023 until 03/18/2024 [facility] Work Phone: Comment on above: 1 Occurrences starti ng 02/17/2023 until 03/18/2024 [facility] Immunizations Immunization Date Immunization Notes Care Provider [facility] 01-28-2023 influenza virus vaccine, unspecified formulation Roni Dumas MD Work Phone: [facility] 02-14-2022 influenza virus vaccine, unspecified formulation Rosas Mckinney MD Work Phone: [facility] 01-18-2021 influenza virus vaccine, unspecified formulation Macy Jones APRN.CNP Work Phone: [facility] 03-01-2020 influenza, seasonal, injectable Imad Asaad Other [facility] Other 02-03-2016 influenza, injectable, quadrivalent, contains preservative Imad Asaad Other [facility] Other NEGATED: Highlighted row has not occurred!03-02-2019 influenza, seasonal, injectable Imad Asaad Other [facility] Other Payers Date Payer Category Payer Private Health Insurance [employer] [id number] 2018 Unknown [id number] 1991 Unknown [id number] 2.16.840.1.730423.3.579.2. 593 1991 Unknown [id number] 2.16.840.1.931639.3.579.2. 593 1991 Unknown [id number] 2.16.840.1.524065.3.579.2. 593 1991 Unknown [id number] 2.16.840.1.497587.3.579.2. 727 1991 Unknown [id number] 2.16.840.1.473162.3.579.2. 727 1991 Unknown [id number] 2.16.840.1.015749.3.579.2. 1286 1991 Unknown [id number] 2.16.840.1.856199.3.579.2. 1286 1991 Unknown [id number] 2.16.840.1.792790.3.579.2. 1286 1991 Unknown [id number] 2.16.840.1.359878.3.579.2. 1286 1991 Unknown [id number] 2.16.840.1.186228.3.579.2. 1259 1991 Unknown [id number] 2.16.840.1.461137.3.579.2. 1259 1991 Unknown [id number] 2.16.840.1.078348.3.579.2. 1259 1991 Unknown [id number] 2.16.840.1.250201.3.579.2. 1259 1991 Unknown [id number] 2.16.840.1.321504.3.579.2. 1259 1991 Unknown [id number] 2.16.840.1.201795.3.579.2. 1259 1991 Unknown [id number] 2.16.840.1.474886.3.579.2. 1259 1991 Unknown [id number] 2.16.840.1.494361.3.579.2. 9 1991 Unknown [id number] 2.16.840.1.570184.3.579.2. 1259 1991 Unknown [id number] 2.16.840.1.930387.3.579.2. 9 1991 Unknown [id number] 2.16.840.1.127816.3.579.2. 1259 1991 Unknown [id number] 2.16.840.1.466884.3.579.2. 1259 1991 Unknown [id number] 2.16.840.1.662850.3.579.2. 1259 1959 Unknown [id number] Social History Date Type Detail Facility Tobacco smoking stat [facility] Tobacco smoking consumption unknown [facility] Work Phone: Start: 1990 Sex Assigned At Not on file C [facility] Start: 10-29-2021 End: 02-26-2022 Exposure to SARS-CoV-2 (event) Not sure [facility] Start: 03-21-2013 End: 10-21-2023 Tobacco smoking status Ex-smoker (finding) [facility] Comment on above: quit 01/2013 Start: 02-26-2022 End: 10-21-2023 Sex Assigned At Female [facility] History of tobacco use Current smoker [facility] History of tobacco use Cigarette Smoker C [facility] History of tobacco use Passive smoker [facility] Start: 02-11-2022 End: 10-21-2023 Tobacco use and exposure Smokeless tobacco non-user [facility] Start: 02-11-2022 End: 02-26-2022 Alcohol intake Current drinker of alcohol (finding) [facility] Tobacco smoking status Never [facility] Start: 02-26-2022 End: 10-21-2023 History of Social function [facility] Start: 02-25-2023 End: 05-28-2023 Tobacco smoking status NHIS Occasional tobacco smoker [facility] Start: 08-08-2022 Alcohol Comment on the weekends [facility] Start: 05-28-2023 Alcohol Comment caffeine: 2-3 cups per day coffee; soda [facility] Start: 01-13-2024 End: 02-18-2024 Alcoholic beverage intake Ex-drinker (finding) [facility] Start: 06-19-[address] [facility]care Functional Status Date Assessment Result Facility 05-26-2022 Functional Status N/A [facility] 02-23-2022 Functional Status N/A [facility] Clinical Notes 08-20-2015 to 02-18-2024 PRAVIN [...] of: PRAVIN Dumont documented in this encounter [facility] 02-10-2024 History of Present illness Narrative Reason [...] nursing note reviewed. Exam conducted with a sensor operator present. Vitals: Estimated body mass index [...] Guillaume Vasquez DO documented in this encounter [facility] 01-27-2024 History of Present illness Narrative Reason [...] nursing note reviewed. Exam conducted with a sensor operator present. Vitals: Estimated body mass index [...] of: PRAVIN Dumont documented in this encounter [facility] 06-02-2023 History of Present illness Narrative Reason for Appointment: Patient ID: Jessee Almodovar is a 33 y.o. female who presents for No chief complaint on file. Patient presents today via telephone call for a telehealth appointment. Patients Phone #: [phone] (mobile) Current Medications: has a current medication [...] or as needed. Will consider referral to [facility] in future Documented by Guillaume Vasquez DO on behalf of: Guillaume Vasquez DO documented in this encounter [facility] 05-02-2023 Miscellaneous Notes [address] [place] [facility] [phone] Patient: Jessee Almodovar Date of : 1990 Encounter Date: 05/02/2023 History of Present Illness/Psychiatric Review of Symptoms/Medical Review of Systems: Video Visit via Real-time Synchronous Audiovisual Provider Location: [facility] JORGE ALBERTO [facility] [address] [place] [address] Patient Location: patient's office in [place], [place] Video Visit Consent Statement: I discussed [...] that there are some limitations compared to [id number] evaluations. The patient consented to the presence of additional virtual and/or in-person participants. We elected to proceed. Jessee is a 33 y.o. female, established patient, and is logged on via bCODE for a follow-up video visit. HPI: Jessee reports she is feeling about the same since last visit. She was unable to tell the difference between taking the immediate release Adderall. She expresses frustrations with still feeling easily distractible. She has had a lot going on since the holidays. She enjoyed Gina and new year's with her immediate family. She traveled to [place] to see her parents, which went well. [...] Moderate episode of recurrent major depressive disorder ([facility]) Generalized anxiety disorder Attention deficit hyperactivity disorder [...] Moderate episode of recurrent major depressive disorder ([facility]) Generalized anxiety disorder Medication Changes: yes start [...] Leon 05/02/23 1746 documented in this encounter [facility] 05-02-2023 Progress note Formatting of t his note is different from the original. [address] [facility] [phone] Patient: Jessee Almodovar Date of : 1990 Encounter Date: 05/02/2023 History of Present Illness/Psychiatric Review of Symptoms/Medical Review of Systems: Video Visit via Real-time Synchronous Audiovisual Provider [facility] [address] [place] [address] Patient Location: patient's office in [place], [place] Video Visit Consent Statement: I discussed [...] that there are some limitations compared to [id number] evaluations. The patient consented to the presence of additional virtual and/or in-person participants. We elected to proceed. Jessee is a 33 y.o. female, established patient, and is logged on via bCODE for a follow-up video visit. HPI: Jessee reports she is feeling about the same since last visit. She was unable to tell the difference between taking the immediate release Adderall. She expresses frustrations with still feeling easily distractible. She has had a lot going on since the holidays. She enjoyed Gina and new year's with her immediate family. She traveled to [place] to see her parents, which went well. [...] CNP, PMHNP-BC. BARAK De Leon 05/02/23 1746 [facility] 02-25-2023 Instructions Tiana Cronin PA-C - 02/25/2023 1:56 PM EST Images from the original note were not included. MRI right hip Home exercises Continue with NSAIDS CSI right hip- may repeat in 3 months if needed documented in this encounter [facility] 02-25-2023 Note HNO ID: [id number] Author: Rosas Mckinney MD Service: ? Author [...] given from [facility] (more content not included)... [facility] 02-25-2023 History of Present illness Narrative Associated [...] trochanteric bursa Informed Consent Consent Obtained: Verbal [place] Protocol A moment to CARE was completed. [...] Time: 10:49 PM documented in this encounter [facility] 02-20-2023 History of Present illness [...] 2023 8:45 AM documented in this encounter [facility] 02-20-2023 Note HNO ID: [id number] Author: Kathrine Smith RT(R) Service: ? Author [...] RT Francisco(R) February 20, 2023 8:45 AM [facility] 02-17-2023 Miscellaneous Notes Jourdan Wilbert, My MA Karyna is having quite a bit of pain and dysfunction in the right hip. Most days in the mornings especially, are excruciating for her and she's unable to sleep on her right side. Would you mind to see her again please? I can get additional imaging first, if you'd like. Thanks, Td. documented in this encounter [facility] 08-01-2022 History of Present illness [...] 2022 9:04 AM documented in this encounter [facility] 07-10-2022 Evaluation note Encounter Date Diagnosis Assessment Notes Jun, Constipation (ICD-10 - K59.00) Jun, Change in bowel habits (ICD-10 - R19.4) Jun, Diarrhea (ICD-10 - R19.7) Patient to start Align probiotic. Jun, Bloating (ICD-10 - R14.0) [facility] Other 02-05-2023 Hospital Discharge instructions Patient Education 05/26/2022 10:06:58 Strep Throat, Adult, Pxtu-fj-Qadq Strep Throat, Adult Strep throat is an [...] Follow these instructions at home: Medicines Take hlxg-tiy-ykukpnk and prescription medicines only as told by [...] 09/23/2008 Document Revised: 06/25/2019 Document Reviewed: 06/25/2019 [employer] Patient Education 2020 [employer]. 05/26/2022 10:06:56 BMI for Adults BMI for [...] 12/17/2004 Document Revised: 03/20/2018 Document Reviewed: 02/18/2018 [employer] Patient Education 2020 [employer]. Follow Up Care 05/26/2022 09:09:50 With:CHELSEA KRAUS DO Address: [employer] [address] [place] [address]- When: Unknown [facility] 11-08-2022 History of Present illness [...] she has undergone a workup with her operating engineer apprentice. She states she underwent a CT scan [...] abdominal pain with planned GI followup, as bender helper workup so far is unremarkable. Patient does [...] being sent back to Roni Dumas via facsGBookinge/[employer] TV Director Franch[employer] Sales or Chart CC for [facility] Providers. Rosas Mckinney MD Dial Screw Assembler, Orthopaedic Surgery Division of Musculoskeletal Oncology documented in [facility] Evaluation + Plan note Extracted from: Title:ED Note Author:Jose BALL, Mohan Diamond te:02/23/22 Sprain of left foot (S93.602 A: Unspecified sprain of left foot, initial encounter) Orders: Crutches Elastic Bandage Application XR Foot 3+ Views Left [facility]11-05-2022 Hospital Discharge instructions Patient Education 02/23/2022 [...] fully hardened. This may takeseveral hours. Take jdxg-gzh-bryaaoc and prescription medicines only as told by [...] 09/27/2002 Document Revised: 04/11/2018 Document Reviewed: 04/11/2018 Emotive Patient Education 2020 [employer]. 02/23/2022 11:07:01 How to Use Cold Therapy, Yopx-js-Iajt How to Use Cold Therapy Cold therapy, [...] 09/23/2008 Document Revised: 01/04/2019 Document Reviewed: 01/04/2019 Emotive Patient Education 2020 [employer]. 02/23/2022 11:07:01 Elastic Bandage and RICE Therapy [...] limityour activities and whether you should start ghdbi-ei-jpjszm exercises for your injury. Ice Ice your [...] 09/27/2002 Document Revised: 12/26/2017 Document Reviewed: 12/26/2017 Emotive Patient Education 2020 [employer]. Follow Up Care 02/23/2022 09:05:48 With:CHELSEA KRAUS Address: [employer] [address] [place] [phone] Business (1) When:02/26/2022 10:46:43 Comments:Follow-up with your primary care provider in 3 to 5 days. If symptoms worsen, do not improve, or new symptoms arise please report back to emergency department for further evaluation. [facility]10-31-2022 History of Present illness Narrative* Kathrine [...] 18, 2022 3:09 PM documented in this [facility]07-21-2022 Nurse Note* Lillie Smith - 11/08/2021 11:25 AM EDT UA performed as ordered. Lillie Smith documented in [facility] History of Present illness Narrative* Macy Jones APRN.CNP - 10/04/2021 3:36 PM EDT Physical documented in [facility] History general Narrative - Reported* Type Description Date Medical History Bernardo's thyroiditis Medical History Post- depression 2019 Surgical History D & C d/t miscarriage 08/2015 Surgical History LEEP 2012 Hospitalization History child Cint Other Evaluation note* Diagnosis Acute bilateral low back pain with bilateral sciatica- Primary [facility]* Diagnosis Pelvic pain- Primary documented in this encounter [facility] note* Diagnosis Dysuria- Primary documented in this encounter [facility] note* Diagnosis Dysuria- Primary documented in this encounter [facility] note* Diagnosis Unspecified hypothyroidism- Primary documented in this encounter [facility] note* Diagnosis Lytic bone lesion of femur- Primary documented in this encounter [facility] note* Diagnosis Moderate episode of recurrent major depressive disorder (HCC)- Primary [facility]* Diagnosis Unspecified hypothyroidism- Primary Essential hypertension, malignant Lipids blood increased Other and unspecified hyperlipidemia Vegans' anemia Other vitamin B12 deficiency anemia documented [facility]* Diagnosis Lytic bone lesion of femur- Primary documented [facility]* Diagnosis Lytic bone lesion of femur- Primary Greater trochanteric bursitis of right hip Enthesopathy of hip region Chronic pain of right hip Chronic low back pain, unspecified back pain laterality, unspecified whether sciatica present Pain of right hip Bone lesion Disorder of bone and cartilage, unspecified [facility]* Diagnosis Attention deficit hyperactivity disorder (ADHD), predominantly 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 (CMS-HCC) Generalized anxiety disorder documented [facility]* Diagnosis Irregular menses- Primary Irregular menstrual cycle [facility] Diagnosis Lytic bone lesion of femur [facility]* Diagnosis Lytic bone lesion of femur documented in this [facility]* Diagnosis Lytic bone lesion of femur documented in this encounter [facility]* Diagnosis 33 weeks gestation of Third trimester state, incidental Low iron Unspecified iron deficiency anemia Nonintractable headache, unspecified chronicity pattern, unspecified headache type Constipation, unspecified constipation type documented in this encounter [facility]* Diagnosis 35 weeks gestation of Third trimester state, incidental [facility]* Diagnosis Third trimester state, incidental 37 weeks gestation of documented in this [facility] Narrative No data available [facility] this section [facility] Attachments The following attachments cannot be sent through Care Everywhere. * Methylphenidate, ADULT (Swiss) [facility] No data available for this section [facility] Diagnostic Procedure Only (Routine) - Pending Review Specialty Diagnoses / Procedures Referred By Contac t Referred To Contact XR IMAGING Diagnoses Lytic bone lesion of femur Procedures XR HIP GENERAL 3V PELV/AP/LAT RIGHT RADEX HIP UNILATERAL WITH PELVIS 2-3 VIEWS Rosas Mckinney MD [address] [place] [address] Xr Imaging Referral ID Status Reason Start Date Expiration Date Visits Requested Visits Authorized [id number] Pending Review Auto-Generat ed Referral 08/26/2022 03/28/2023 1 1 [facility] for referral (narrative)* Diagnostic Procedure Only (Routine) - Pending Review Specialty Diagnoses / Procedures Referred By Contac t Referred To Contact XR IMAGING Diagnoses Lytic bone lesion of femur Procedures XR HIP GENERAL 3V PELV/AP/LAT RIGHT RADEX HIP UNILATERAL WITH PELVIS 2-3 VIEWS Tiana Cronin PA-C [address] [place] [address] Xr Imaging [place] [address] Referral ID Status Reason Start Date Expiration Date Visits Requested Visits Authorized [id number] Pending Review Auto-Generat ed Referral 03/18/2024 1 1 [facility] for referral (narrative)* Diagnostic Procedure Only (Routine) - Closed Specialty Diagnoses / Procedures Referred By Contac t Referred To Contact XR IMAGING Diagnoses Lytic bone lesion of femur Procedures XR HIP GENERAL 3V PELV/AP/LAT RIGHT RADEX HIP UNILATERAL WITH PELVIS 2-3 VIEWS Roni Dumas MD [address] [place] [address] [place] [address] Referral ID Status Reason Start Date Expiration Date V isits Requested Visits Authorized [id number] Closed Auto-Generate d Referral 02/17/2023 03/18/2024 1 1 [facility] for referral (narrative)* Diagnostic Procedure Only (Routine) - Closed Specialty Diagnoses / Procedures Referred By Contac t Referred To Contact XR IMAGING Diagnoses Lytic bone lesion of femur Procedures XR HIP GENERAL 3V PELV/AP/LAT RIGHT RADEX HIP UNILATERAL WITH PELVIS 2-3 VIEWS Rosas Mckinney MD [address] [facility] [address] [place] [phone] [place] [address] Referral ID Status Reason Start Date Expiration Date V isits Requested Visits Authorized [id number] Closed Auto-Generate d Referral 08/26/2022 03/28/2023 1 1 [facility] for referral (narrative)* Diagnostic Procedure Only (Routine) - Closed Specialty Diagnoses / Procedures Referred By Contac t Referred To Contact XR IMAGING Diagnoses Lytic bone lesion of femur Procedures XR HIP GENERAL 3V PELV/AP/LAT RIGHT RADEX HIP UNILATERAL WITH PELVIS 2-3 VIEWS Roni Dumas MD [address] [place] [address] [place] [address] Referral ID Status Reason Start Date Expiration Date V isits Requested Visits Authorized [id number] Closed Auto-Generate d Referral 02/18/2022 03/20/2023 1 1 [facility] Reason for Referral Specialty Diagnoses / Procedures Referred By Contac t Referred To Contact [facility] Diagnoses Acute bilateral low back pain with bilateral sciatica Procedures CONSULT TO PHYSICAL THERAPY PHYSICAL THERAPY EVALUATION HIGH COMPLEX 45 MINS Macy Jones, PRE K LEAD TEACHER.[address] [place] [address] [facility] [place] [address] [place] [address] Referral ID Status Reason Start Date Expiration Date Visits Requested Visits Authorized [id number] Pending Review Auto-Generat ed Referral 10/04/2021 10/04/2022 1 1 Specialty Diagnoses / Procedures Referred By Contac t Referred To Contact MR IMAGING Diagnoses Greater trochanteric bursitis of right hip Chronic pain of right hip Pain of right hip Bone lesion Procedures MRI HIP WO IVCON RIGHT MRI ANY JT LOWER EXTREM W/O CONTRAST Tiana Ji, LIZZY [address] [place] [address] Mr Imaging [place] [address] Referral ID Status Reason Start Date Expiration Date Visits Requested Visits Authorized [id number] Authorized Auto-Generat ed Referral 02/25/2023 03/26/2024 1 [...] or prosecute any alcohol or drug abuse patient.[facility] HospitalIn the event this information is protected by the Federal Confidentiality of Alcohol and Drug Abuse Patient Records regulations: The Federal rules restrict any use of the information to criminally investigate or prosecute any alcohol or drug abuse patient.[facility] HospitalIn the event this information is protected by the Federal Confidentiality of Alcohol and Drug Abuse Patient Records regulations: The Federal rules restrict any use of the information to criminally investigate or prosecute any alcohol or drug abuse patient.[facility] HospitalIn the event this information is protected by the Federal Confidentiality of Alcohol and Drug Abuse Patient Records regulations: The Federal rules restrict any use of the information to criminally investigate or prosecute any alcohol or drug abuse patient.[facility] HospitalIn the event this information is protected by the Federal Confidentiality of Alcohol and Drug Abuse Patient Records regulations: The Federal rules restrict any use of the information to criminally investigate or prosecute any alcohol or drug abuse patient.[facility] HospitalIn the event this information is protected by the Federal Confidentiality of Alcohol and Drug Abuse Patient Records regulations: The Federal rules restrict any use of the information to criminally investigate or prosecute any alcohol or drug abuse patient.[facility] HospitalIn the event this information is protected by the Federal Confidentiality of Alcohol and Drug Abuse Patient Records regulations: The Federal rules restrict any use of the information to criminally investigate or prosecute any alcohol or drug abuse patient.[facility] HospitalIn the event this information is protected by the Federal Confidentiality of Alcohol and Drug Abuse Patient Records regulations: The Federal rules restrict any use of the information to criminally investigate or prosecute any alcohol or drug abuse patient.[facility] HospitalIn the event this information is protected by the Federal Confidentiality of Alcohol and Drug Abuse Patient Records regulations: The Federal rules restrict any use of the information to criminally investigate or prosecute any alcohol or drug abuse patient.[facility] HospitalIn the event this information is protected by the Federal Confidentiality of Alcohol and Drug Abuse Patient Records regulations: The Federal rules restrict any use of the information to criminally investigate or prosecute any alcohol or drug abuse patient.[facility] HospitalIn the event this information is protected by the Federal Confidentiality of Alcohol and Drug Abuse Patient Records regulations: The Federal rules restrict any use of the information to criminally investigate or prosecute any alcohol or drug abuse patient.[facility] HospitalIn the event this information is protected by the Federal Confidentiality of Alcohol and Drug Abuse Patient Records regulations: The Federal rules restrict any use of the information to criminally investigate or prosecute any alcohol or drug abuse patient.[facility] HospitalIn the event this information is protected by the Federal Confidentiality of Alcohol and Drug Abuse Patient Records regulations: The Federal rules restrict any use of the information to criminally investigate or prosecute any alcohol or drug abuse patient.[facility] Patient Care team informatio n (unrecognized section and content) Magnet Maker Relationship Specialty Start Date End Date Anupama Brown DO [address] [place] [address] PCP - General Family Medicine 07/25/22 mEile Mesa MD [address] [place] [address] Gastroenterology 07/25/22 Guillaume Vasquez DO [address] [place] [address] [place] [address] TALENT SOLUTIONS MANAGER 07/25/22 Magnet Maker Relationship Specialty Start Date End Date Anupama Brown DO [address] [place] [address] PCP - General Family Medicine 07/25/22 Emile Mesa MD [address] [address] Gastroenterology 07/25/22 Guillaume Vasquez, DO [address] [place] [address] TALENT SOLUTIONS MANAGER 07/25/22 Magnet Maker Relationship Specialty Start Date End Date Anupama Brown DO [address] [place] [address] PCP - General Family Medicine 07/25/22 Emile Mesa MD [address] [place] [address] Gastroenterology 07/25/22 Guillaume Vasquez, DO [address] [place] [address] TALENT SOLUTIONS MANAGER 07/25/22 Magnet Maker Relationship Specialty Start Date End Date Anupama Brown DO [address] [place] [address] PCP - General Family Medicine 07/25/22 Emile Mesa MD [address] [place] [address] Gastroenterology 07/25/22 Guillaume Vasquez, DO [address] [place] [address] TALENT SOLUTIONS MANAGER 07/25/22 Magnet Maker Relationship Specialty Start Date End Date Chelsea Kraus DO [address] [place] [address] PCP - General Family Medicine 07/02/19 Magnet Maker Relationship Specialty Start Date End Date Anupama Brown MD [address] [place] [phone] PCP - General Family Medicine 03/04/23 Magnet Maker Relationship Specialty Start Date End Date Anuapma Brown MD [address] [place] [phone] PCP - General Family Medicine 03/04/23 Magnet Maker Relationship Specialty Start Date End Date Anupama Brown DO [address] [place] [address] PCP - General Family Medicine 07/25/22 Emile Mesa MD [address] [place] [address] Gastroenterology 07/25/22 Guillaume Vasquez DO [address] [place] [address] [place] [address] B Operator 07/25/22 Magnet Maker Relationship Specialty Start Date End Date Anupama Brown DO [address] [place] [address] PCP - General Family Medicine 07/25/22 Emile Mesa MD [address] [place] [address] Gastroenterology 07/25/22 Guillaume Vasquez DO [address] [place] [address] [place] [address] B Operator 07/25/22 Magnet Maker Relationship Specialty Start Date End Date Anupama Brown MD [address] [place] [phone] PCP - General Family Medicine 03/04/23 Magnet Maker Relationship Specialty Start Date End Date Anupama Brown MD [address] [place], [phone] PCP - General Family Medicine 03/04/23 Magnet Maker Relationship Specialty Start Date End Date Anupama Brown MD [address] [place] [phone] PCP - General Family Medicine 03/04/23 Magnet Maker Relationship Specialty Start Date End Date Anupama Brown MD [address] [place] [phone] PCP - General Family Medicine 03/04/23 Magnet Maker Relationship Specialty Start Date End Date Anupama Brown MD [address] [place] [phone] PCP - General Family Medicine 03/04/23 Reason for Visit (unrecogniz ed section and content) Reason Comments New Pain Tumor/Mass Specialty Diagnoses / Procedures Referred By Contac t Referred To Contact Orthopedics Diagnoses Lytic bone lesion of femur Procedures CONSULT TO ORTHOPAEDICS OFFICE/OUTPATIENT NEW HIGH MDM 60-74 MINUTES Roni Dumas MD [address] [place] [address] Referral ID Status Reason Start Date Expiration Date V isits Requested Visits Authorized [id number] Closed PCP Requested Referral 02/18/2022 02/18/2023 1 1 Reason Comments New Pain Reason Comments Radio Gen RMP Specialty Diagnoses / Procedures Referred By Contac t Referred To Contact XR IMAGING Diagnoses Lytic bone lesion of femur Procedures XR HIP GENERAL 3V PELV/AP/LAT RIGHT RADEX HIP UNILATERAL WITH PELVIS 2-3 VIEWS Roni Dumas MD [address] [place] [address] [place] [address] Referral ID Status Reason Start Date Expiration Date V isits Requested Visits Authorized [id number] Closed Auto-Generate d Referral 02/17/2023 03/18/2024 1 1 Specialty Diagnoses / Procedures Referred By Contac t Referred To Contact XR IMAGING Diagnoses Lytic bone lesion of femur Procedures XR HIP GENERAL 3V PELV/AP/LAT RIGHT RADEX HIP UNILATERAL WITH PELVIS 2-3 VIEWS Rosas Mckinney MD [address] [place] [address] [place] [address] Referral ID Status Reason Start Date Expiration Date V isits Requested Visits Authorized [id number] Closed Auto-Generate d Referral 08/26/2022 03/28/2023 1 1 Referral ID Status Reason Start Date Expiration Date V isits Requested Visits Authorized [id number] Closed Auto-Generate d Referral 02/18/2022 03/20/2023 1 1 Reason Comments Routine Visit INFORMATION SOURCE (unrecogn ized section and content) DATE CREATED AUTHOR 05/08/2022 [facility] DATE CREATED AUTHOR AUTHOR'S ORGANIZ ATION 05/26/2022 [facility] DATE CREATED AUTHOR AUTHOR'S ORGANIZ ATION 05/04/2023 [facility] DATE CREATED AUTHOR AUTHOR'S ORGANIZ ATION 06/06/[address] [facility] DATE CREATED AUTHOR AUTHOR'S ORGANIZ ATION 10/17/2023 [facility] DATE CREATED AUTHOR AUTHOR'S ORGANIZ ATION 2024 [facility] DATE CREATED AUTHOR AUTHOR'S ORGANIZ ATION 02/20/2024 [facility] PSYCHIATRIC FOR RECORDS PERTAINING TO PATIENTS WHO ARE [...] BE BASED ON THE PRIMARY CLINICAL RECORDS. [facility] [employer] provides no warranty or guarantee of the accuracy or completeness of information in this document.
--- NOTE | 2024-03-03 11:23 | PC.NURSE ---
Stacie and Beena arrive for support. Stacie reports stopped latching at breast after hospitalization for phototherapy. Has been pumping and bottle feeding as baby becomes frustrated and cries when offered breast. Infant weight is up from last visit ( 7-10) to 8-0.5 today. Increased wet and stool diapers reported by mom. rooting, to breast, mom uses good positioning and cross cradle hold. Infant eagerly roots and latches, few sucks and off breast. Cycle repeated several times with mom gently talking and encouraging infant. No sustained latch or suck achieved. Discussed use of nipple shield to bridge gap if no latch to latch at the breast. Mom agreeable. Shown how to place shield correctly and latch. immediately latches and sustains feed. Discussed using shield and removing during feed to encourage re latch without shield. Mom states confident can use shield and offer without shield as well. Mom to return 03/10/2024 0930 for further support. No further concerns offered. Aware to call for questions as needed.
== END 2024-03-03 11:34 | disposition home or self-care (01) ==
LOC: FBCO 08:48
PROVIDERS: PCP Family Medicine; Visit Provider Midwife
DX: Z39.1 Encounter for care and examination of lactating mother (principal)

== ENCOUNTER 2024-10-26 12:26 | Outpatient (REF) | payer OTHER, SELFPAY ==
--- OUTSIDE RECORDS SUMMARY | 2024-10-06 07:15 | XMS_ITS ---
Author Organization [facility] es Address [address] [place] [address] Care Team Providers Care Desktop Manager Name Role Phone Paola Alondra Primary Care Provider [phone] REASON FOR VISIT BH F/U Encounters Encounter Location Date Provider Diagnosis [facility] [address] [place] [address] 10/06/2024 Alondra Guevara Plan Of Treatment No Information Progress Notes * JESSEE ALMODOVAR BDOB:1989 (34 yo F)Acc No.[id number]:10/06/2024 Behavioral Health Patient: Kristin JARAJESSEE Bird Provider: Devaughn Guevara CNP :1990 A ge:34 Y S ex:Female Date:10/06/2024 Address:[address] [place], [place] [id number] Subjective: * Chief Complaints: * 1 . BH F/U. * Medical History: Objective: * Vitals: Assessment: Plan: * Treatment: * Images: * Electronic signature of DE Johnson on 10/26/2024 at 09:02 AM EDT Sign off status: Pending * Provider: Devaughn Guevara CNP Date: 10/06/2024 Generated for Zulma keating/Mariya/eTransmitting on: 10/26/2024 09:02 AM EDT
--- OUTSIDE RECORDS SUMMARY | 2024-10-12 06:45 | XMS_ITS ---
Author Organization [facility] es Address [address] [place] [address] Care Team Providers Care Check Pilot Name Role Phone Alondra Guevara Primary Care Provider REASON FOR VISIT navin rs Encounters Encounter Location Date Provider Diagnosis [facility] [address] [facility] [place] [address] 10/12/2024 Alondra Guevara Plan Of Treatment No Information Progress Notes * JESSEE JEFFERS BDOB:1989 (34 yo F)Acc No.[id number]:10/12/2024 Behavioral Health Patient: Kristin GILLJESSEE Provider: Devaughn Guevara CNP :1990 A ge:34 Y S ex:Female Date:10/12/2024 Address:[address] [place], [place] [id number] Subjective: * Chief Complaints: * 1 . navin rs. * Medical History: Objective: * Vitals: Assessment: Plan: * Treatment: * Images: * Electronic signature of DE Johnson on 10/26/2024 at 09:02 AM EDT Sign off status: Pending * Provider: Devaughn Guevara CNP Date: 10/12/2024 Generated for Zulma keating/Mariya/eThyunsmitting on: 10/26/2024 09:02 AM EDT
--- OUTSIDE RECORDS SUMMARY | 2024-10-19 07:15 | XMS_ITS ---
Author Organization [facility] es Address [address] [place] [address] Care Team Providers Care Network Pricing Consultant Name Role Phone Alondra Guevara Primary Care Provider REASON FOR VISIT [facility] RS 10/11 Encounters Encounter Location Date Provider Diagnosis [facility] [address] [place] [place] [address] 10/19/2024 Alondra Guevara Plan Of Treatment No Information Progress Notes * JESSEE JEFFERS BDOB:1989 (34 yo F)Acc No.[id number]:10/19/2024 Behavioral Health Patient: Kristin JARAJESSEE Bird Provider: Devaughn Guevara CNP :1990 A ge:34 Y S ex:Female Date:10/19/2024 Address:[address] [place], [place] [id number] Subjective: * Chief Complaints: * 1 . [facility] RS 10/11. * Medical History: Objective: * Vitals: Assessment: Plan: * Treatment: * Images: * Electronic signature of DE Johnson on 10/26/2024 at 09:02 AM EDT Sign off status: Pending * Provider: Devaughn Guevara CNP Date: 10/19/2024 Generated for Zulma keating/Mariya/eTransmitting on: 10/26/2024 09:02 AM EDT
--- OUTSIDE RECORDS SUMMARY | 2024-10-26 08:59 | XMS_ITS ---
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 Name Role Phone CARYN, TEE Attending Unavailable KIN, ELISEO Attending Unavailable CARYN, TEE Attending Unavailable CARYN, TEE Attending Unavailable CARYN, TEE Attending Unavailable KIN, ELISEO Attending Unavailable CARYN, TEE Attending Unavailable KIN, ELISEO Attending Unavailable KIN, ELISEO Attending Unavailable EFRA, CHELSEA A Referring Unavailable EFRA, CHELSEA A Primary Care Unavailable TI CHANDLER Attending Unavailable EFRA, CHELSEA A Referring Unavailable EFRA, CHELSEA A Primary Care Unavailable KEVIN, ANUPAMAMaday GONZALESYN Primary Care Unavailabl e [facility] Unavailabl e KINELISEO L Referring Unavailable KEVIN, ANUPAMA DANIELLE Primary Care Unavailabl e CARYN, TEE R Referring Unavailable KEVIN, ANUPAMAMaday GONZALESYN Primary Care Unavailabl e KEVIN, [facility] Primary Care Unavailabl e KEVIN, [facility] Primary Care Unavailabl e PROBLEMS DATE TYPE CONDITION / CODE ATTENDING STATUS [facility] 01/19/2024 Active Dizziness / R42(ICD-10) NA Activ e [facility] 09/16/2023 Unknown Unspecified mate rnal hypertension, first trimester / O16.1(ICD-10) Active [facility] 12/03/2022 Unknown Attention-defici t hyperactivity disorder, 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 07/02/2019 Unknown Hypothyroidism, unspecified / E03.9(ICD-10) [facility] 11/13/2023 Unknown Hx hypertension / UNK(Unknown) [facility] PROCEDURES No Procedure Records Found RESULTS US PELVIC COMPLETE W/ TV Observed: 08/03 9:24 AM Status: F Source: [facility] Order Comment: US PELVIS-TRA NSVAG IF INDICATED No LMP recorded. EXAM: US PELVIC COMPLETE W/ TV HISTORY: PCOS, heavy cycles x 3 months. COMPARISON: None available. TECHNIQUE: Two-dimensional transvaginal grayscale ultrasound imaging of the pelvis was performed. Color flow Doppler imaging of the ovaries was also performed. FINDINGS: UTERUS 8.5 x 4.3 x 6.1 cm The uterus is insert in position and demonstrates a normal, homogeneous echotexture. Multiple nabothian cysts are visualized within the cervix. ENDOMETRIUM 1.2 cm The endometrium demonstrates a normal, homogeneous echotexture. RIGHT OVARY 2.8 x 1.7 x 2.8 cm The right ovary demonstrates a normal echotexture. There is normal color Doppler flow. LEFT OVARY 2.6 x 1.7 x 2.3 cm The left ovary demonstrates a normal echotexture. There is normal color Doppler flow. There is a dominant follicle visualized. No fluid is present within the cul-de-sac. IMPRESSION: 1. Unremarkable ultrasound of the pelvis. 2. Normal color Doppler flow within the bilateral ovaries. Interpreted by: Electronically signed by CEFERINO NORRIS II, MD, PHD at 04-Aug-2024 12:04:16 AM [facility] B-HCG SERPL-ACNC Collected: 5 8:15 AM Status: C Source: [facility] Order Comment: Specimen Type : BLOOD SPECIMEN Ordering Facility: [facility] OB-CIRCULAR SAW OPERATOR [place] Address: [address] [place] [address] , [place] [address] TYPE CODE TESTS RESULT OUT OF RANGE REFERENCE UNITS LAB 37972-0(LOINC) B-HCG SerPl-aCnc <0.6 <5.0 mIU/mL Result Comment: Negative Performed By: #### 89546-8 # ### [facility] CLIA [id number] [address] [place] [address] [place] TSH SERPL-ACNC Collected: 5 8:15 AM Status: C Source: [facility] Comment: Specimen Type : BLOOD SPECIMEN Ordering Facility: [facility] OB-CIRCULAR SAW OPERATOR [place] Address: [address] [place], [place] [address] [place] [address] TYPE CODE TESTS RESULT OUT OF RANGE REFERENCE UNITS LAB 3016-3(LOINC) TSH SerPl-aCnc 6.050 High 0.270-4.200 mIU/L Result Comment: If the patie nt is , TSH reference range varies by [...] the . Thyroid, 2017:27:3:315-389. Performed By: #### 3016-3 ## ## [facility] CLIA [id number] [address] [place] [address] [place] CBC W AUTO DIFF BLD Collected: 07/16/2024 8:[address] atus: C Source: [facility] Order Comment: Specimen Type : BLOOD SPECIMEN Ordering Facility: [facility] OB-CIRCULAR SAW OPERATOR [place] Address: [facility] [address] [place] [id number] TYPE CODE TESTS RESULT OUT OF RANGE REFERENCE UNITS LAB 6690-2(LOINC) WBC # Bld Auto 4.69 3.70-11.00 k/uL LAB 789-8(LOINC) RBC # Bld Auto 4.74 3.90-5.20 m/ uL LAB 718-7(LOINC) Hgb Bld-mCnc 14.0 11.5-15.5 g/dL LAB 4544-3(LOINC) Hct VFr Bld Auto 42.7 36.0-46.0 % LAB 787-2(LOINC) MCV RBC Auto 90.1 80.0-100.0 fL LAB 785-6(LOINC) MCH RBC Qn Auto 29.5 26.0-34.0 p g LAB 786-4(LOINC) MCHC RBC Auto-mCnc 32.8 30.5-36.0 g/dL LAB 12338-2([facility]) RDW RBC-Rto 15.4 High 11.5-15.0 % LAB 777-3(INC) Platelet # Bld Auto 146 Low 150-400 k/uL Result Comment: Results chec ked and verified.No clot detected. LAB 18187-5([facility]) PMV Bld Auto 11.8 9.0-12.7 fL LAB 770-8([facility]) Neutrophils/leuk NFr Bld Auto 53.7 % LAB 751-8([facility]) Neutrophils # Bld Auto 2.52 1.45-7.50 k/uL LAB 736-9([facility]) Lymphocytes/leuk NFr Bld Auto 32.6 % LAB 731-0([facility]) Lymphocytes # Bld Auto 1.53 1.00-4.00 k/uL LAB 5905-5([facility]) Monocytes/leuk NFr Bld Auto 10.9 % LAB 742-7([facility]) Monocytes # Bld Auto 0.51 <0.87 k/uL LAB 713-8([facility]) Eosinophil/leuk NFr Bld Auto 1.5 % LAB 711-2([facility]) Eosinophil # Bld Auto 0.07 <0.46 k/uL LAB 706-2([facility]) Basophils/leuk NFr Bld Auto 0.9 % LAB 704-7(INC) Basophils # Bld Auto 0.04 <0.11 k/uL LAB 05714-7([facility]) Imm Granulocytes/payton k NFr Bld Auto 0.4 % LAB 02501-1([facility]) Imm Granulocytes # Bld Auto <0.03 <0.10 k/uL LAB 81058-8([facility]) nRBC/100 WBC Bld-Rto 0.0 /100 WBC LAB 771-6([facility]) nRBC # Bld Auto <0.01 <0.01 k/u L LAB 48752-6([facility]) Differential method Bld Auto Performed By: #### 97107-6 # ### [facility] CLIA [id number] [address] [place] [address] DEPRECATED HGB A1C BLD Collected: 07/16 8:15 AM Status: C Source: [facility] Comment: Specimen Type : BLOOD SPECIMEN Ordering Facility: [facility] OBCIRCULAR SAW OPERATOR [place] Address: [facility] [place] [address] [place] [address] TYPE CODE TESTS RESULT OUT OF RANGE REFERENCE UNITS LAB 4548-4(LOINC) HbA1c MFr Bld 5.0 4.3-5.6 % Result Comment: [place] [employer] guidelines indicate that patients with HgbA1c in the range 5.7-6.4% are at increased risk for development of diabetes, and intervention by lifestyle modification may be beneficial. HgbA1c greater or equal to 6.5% is considered diagnostic of diabetes. LAB 42660-6(LOINC) Est. average glucose Bld gHb Est-mCnc 97 mg/dL Result Comment: eAG: (Estima rafael average glucose) is a calculated value from HgbA1c and is chain sales representative of the average blood glucose level in the last 2-3 month period. Performed By: #### 12081-5 # ### [facility] CLIA [id number] [address] [place] [address] OF [facility] DHEA BLOOD Collected: 8:15 AM Status: C Source: [facility] Comment: Specimen Type : BLOOD SPECIMEN Ordering Facility: [facility] Address: [facility] [place] [place] [address] TYPE CODE TESTS RESULT OUT OF RANGE REFERENCE UNITS LAB DHEA DHEA 1.775 1.330-7.780 ng/mL Result Comment: INTERPRETIVE INFORMATION: Dehydroepiandrosterone, Females 18 years and older: Postmenopausal: 0.60-5.73 ng/mL REFERENCE INTERVAL: Dehydroepiandrosterone by TMS Access complete set of age- and/or gender-specific reference intervals for this test in the [facility] Test Directory ([employer]). This test was developed and its performance characteristics determined by [facility]. It has not been cleared or approved by the [place] Food and Drug Administration. This test was performed in a CLIA certified laboratory and is intended for clinical purposes. Performed By: [facility] [address] [place] [address] Fruit Dryer: Charlie Forde MD, PhD CLIA Number: [id number] Performed By: #### DHEA #### [facility] CLIA [id number] [address] [place] [address] DHEA-S BLD Collected: 8:15 AM Status: C Source: [facility] Comment: Specimen Type : BLOOD SPECIMEN Ordering Facility: [facility] OB-CIRCULAR SAW OPERATOR [place] Address: [address] [place] [address] [address], [place] [address] TYPE CODE TESTS RESULT OUT OF RANGE REFERENCE UNITS LAB 2191-5(LOINC) DHEA-S SerPl-mCnc 71.1 Low 98.8-340.0 ug/dL Result Comment: Reference ra nges are age and gender specific. For additional information, reference range tables can be found in the laboratory test directory. The normal values are based on the following source: Dehydroepiandrosterone sulfate (DHEA S) [package insert V 17.0 [place]]. [facility], [place], [place]: November 2012. Performed By: #### 25827-5, DHEAS, 3023-7, 57138-3 #### [facility] CLIA [id number] [address] [place], [place] [address] [facility] FSH SERPL-ACNC Collected: 8:15 AM Status: C Source: [facility] Comment: Specimen Type : BLOOD SPECIMEN Ordering Facility: [facility] Address: [address] [place] [address] [address], [place] [address] TYPE CODE TESTS RESULT OUT OF RANGE REFERENCE UNITS LAB 88445-0(LOINC) FSH SerPl-aCnc 18.9 See comment mIU/mL Result Comment: Reference ra nge: Follicular: 3.5-12.5 mIU/mL Ovulation: 4.7-21.5 mIU/mL Luteal: 1.7-7.7 mIU/mL Postmenopausal: 25.8-134.8 mIU/mL Performed By: #### 98567-2, DHEAS, 3024-7, 51483-2 #### [facility] CLIA [id number] [address] [place] [address] [facility] T4 FREE SERPL-MCNC Collected: 07/16/2024 8:15 AM Sta tus: C Source: [facility] Comment: Specimen Type : BLOOD SPECIMEN Ordering Facility: [facility] OB-CIRCULAR SAW OPERATOR [place] Address: [facility] [place] [place] [address] TYPE CODE TESTS RESULT OUT OF RANGE REFERENCE UNITS LAB 3024-7(LOINC) T4 Free SerPl-mCnc 1.2 0.9-1.7 ng/dL Performed By: #### 29524-8, DHEAS, 3024-7, 90023-1 #### [facility] CLIA [id number] [address] [place] [address] LH SERPL-ACNC Collected: 8:15 AM Status: C Source: [facility] Comment: Specimen Type : BLOOD SPECIMEN Ordering Facility: [facility] OB-CIRCULAR SAW OPERATOR [place] Address: [facility] [address] [place] [address] TYPE CODE TESTS RESULT OUT OF RANGE REFERENCE UNITS LAB 18101-5(LOINC) LH SerPl-aCnc 12.5 See comment mIU/mL Result Comment: Reference ra nge: Follicular: 2.4-12.6 mIU/mL Midcycle: 14.0-95.6 mIU/mL Luteal: 1.0-11.4 mIU/mL Post Priscila: 7.7-58.5 mIU/mL Performed By: #### 87500-0, DHEAS, 3024-7, 49406-2 #### [facility] CLIA [id number] [address] [place], [place] [address] [facility] T4 FREE SERPL-MCNC Collected: 10:29 AM Status: F Source: [facility] Comment: Specimen Type : BLOOD SPECIMEN Ordering Facility: [facility] OB-CIRCULAR SAW OPERATOR [place] Address: [facility] [place] [place] [address] TYPE CODE TESTS RESULT OUT OF RANGE REFERENCE UNITS LAB 3024-7(LOINC) T4 Free SerPl-mCnc 1.1 0.9-1.7 ng/dL Performed By: #### 3024-7, 3 016-3 #### [facility] CLIA [id number] [address] [place] [address] [place] TSH SERPL-ACNC Collected: 10:29 AM Status: F Source: [facility] Order Comment: Specimen Type : BLOOD SPECIMEN Ordering Facility: [facility] OB-CIRCULAR SAW OPERATOR [place] Address: [facility] [address] [place] [address] TYPE CODE TESTS RESULT OUT OF RANGE REFERENCE UNITS LAB 3016-3(LOINC) TSH SerPl-aCnc 1.340 0.270-4.200 mIU/L Result Comment: If the patie nt is , TSH reference range varies by [...] the . Thyroid, 2017:27:3:315-389. Performed By: #### 3024-7, 3 016-3 #### [facility] CLIA [id number] [address] [place] [address] [place] CBC W AUTO DIFF BLD Collected: 01/19/2024 2:[address] atus: C Source: [facility] Order Comment: Specimen Type : BLOOD SPECIMEN Ordering Facility: [facility] OB-CIRCULAR SAW OPERATOR [place] Address: [facility] [address] [place] [address] TYPE CODE TESTS RESULT OUT OF RANGE REFERENCE UNITS LAB 6690-2(LOINC) WBC # Bld Auto 10.26 3.70-11.00 k/uL LAB 789-8(LOINC) RBC # Bld Auto 3.85 Low 3.90-5.20 m/ uL LAB 718-7(LOINC) Hgb Bld-mCnc 10.7 Low 11.5-15.5 g/dL LAB 4544-3([facility]) Hct VFr Bld Auto 32.8 Low 36.0-46.0 % LAB 787-2([facility]) MCV RBC Auto 85.2 80.0-100.0 fL LAB 785-6([facility]) MCH RBC Qn Auto 27.8 26.0-34.0 p g LAB 786-4([facility]) MCHC RBC Auto-mCnc 32.6 30.5-36.0 g/dL LAB 57581-2([facility]) RDW RBC-Rto 13.3 11.5-15.0 % LAB 777-3([facility]) Platelet # Bld Auto 172 150-400 k/uL LAB 30336-0([facility]) PMV Bld Auto 11.3 9.0-12.7 fL LAB 770-8([facility]) Neutrophils/leuk NFr Bld Auto 76.1 % LAB 751-8([facility]) Neutrophils # Bld Auto 7.81 High 1.45-7.50 k/uL LAB 736-9([facility]) Lymphocytes/leuk NFr Bld Auto 15.1 % LAB 731-0([facility]) Lymphocytes # Bld Auto 1.55 1.00-4.00 k/uL LAB 5905-5([facility]) Monocytes/leuk NFr Bld Auto 7.5 % LAB 742-7([facility]) Monocytes # Bld Auto 0.77 <0.87 k/uL LAB 713-8([facility]) Eosinophil/leuk NFr Bld Auto 0.6 % LAB 711-2([facility]) Eosinophil # Bld Auto 0.06 <0.46 k/uL LAB 706-2([facility]) Basophils/leuk NFr Bld Auto 0.2 % LAB 704-7([facility]) Basophils # Bld Auto <0.03 <0.11 k/uL LAB 05531-9([facility]) Imm Granulocytes/payton k NFr Bld Auto 0.5 % LAB 24875-1([facility]) Imm Granulocytes # Bld Auto 0.05 <0.10 k/uL LAB 10542-0([facility]) nRBC/100 WBC Bld-Rto 0.0 /100 WBC LAB 771-6(LOINC) nRBC # Bld Auto <0.01 <0.01 k/u L LAB 39904-3(LOINC) Differential method Bld Auto Performed By: #### 76641-1 # ### [facility] CLIA [id number] [address] [place] [address] T4 FREE SERPL-MCNC Collected: 4 10:14 AM Status: F Source: [facility] Order Comment: Specimen Type : BLOOD SPECIMEN Ordering Facility: External Submitter Address: , , TYPE CODE TESTS RESULT OUT OF RANGE REFERENCE UNITS LAB 3024-7([facility]) T4 Free SerPl-mCnc 0.9 0.9-1.7 ng/dL Performed By: #### 3016-3, 3 024-7 #### [facility] CLIA [id number] [address] [place] [address] STATES [facility] TSH SERPL-ACNC Collected: 4 10:14 AM Status: F Source: [facility] Order Comment: Specimen Type : BLOOD SPECIMEN Ordering Facility: External Submitter Address: , , TYPE CODE TESTS RESULT OUT OF RANGE REFERENCE UNITS LAB 3016-3([facility]) TSH SerPl-aCnc 1.220 0.270-4.200 mIU/L Result Comment: If the patie nt is , TSH reference range varies by [...] the . Thyroid, 2017:27:3:315-389. Performed By: #### 3016-3, 3 024-7 #### [facility] CLIA [id number] [address] [place] [address] OF [place] T4 FREE SERPL-MCNC Collected: 12/08/2023 4:06 PM Sta tus: F Source: [facility] Comment: Specimen Type : BLOOD SPECIMEN Ordering Facility: External Submitter Address: , , TYPE CODE TESTS RESULT OUT OF RANGE REFERENCE UNITS LAB 3024-7(LOINC) T4 Free SerPl-mCnc 1.1 0.9-1.7 ng/dL Performed By: #### 3024-7, 3 016-3 #### [facility] CLIA [id number] [address] [place] [address] [place] TSH SERPL-ACNC Collected: 4:06 PM Status: F Source: [facility] Comment: Specimen Type : BLOOD SPECIMEN Ordering Facility: External Submitter Address: , , TYPE CODE TESTS RESULT OUT OF RANGE REFERENCE UNITS LAB 3016-3(LOINC) TSH SerPl-aCnc 0.607 0.270-4.200 mIU/L Result Comment: If the patie nt is , TSH reference range varies by [...] the . Thyroid, 2017:27:3:315-389. Performed By: #### 3024-7, 3 016-3 #### [facility] CLIA [id number] [address] [place] [address] [place] GESTATIONAL GLUCOSE SCREEN, 1-HOUR, 50 GRAM, NON-FASTING Collected: 11/20/2023 8:42 AM Status: F Source: [facility] Comment: Specimen Type : BLOOD SPECIMEN Ordering Facility: [facility] OB-CIRCULAR SAW OPERATOR [place] Address: [address] [place] [address] TYPE CODE TESTS RESULT OUT OF RANGE REFERENCE UNITS LAB 2345-7(LOINC) Glucose SerPl-mCnc 97 74-134 mg/dL Result Comment: [facility]stetricians and Gynecologists (Alma/Adrián) guidelines state a gestational diabetes mellitus positive screen is made, in women not previously diagnosed with overt diabetes, when the 1 hr plasma glucose level is equal to or above 140 mg/dL. The [facility] Benefits Specialist and [facility] recommends a 135 mg/dL cutoff. Performed By: #### GLTGST ## ## [facility] CLIA [id number] [address] [place] [address] [place] CBC W AUTO DIFF BLD Collected: 11/20/2023 8:[address] atus: C Source: [facility] Order Comment: Specimen Type : BLOOD SPECIMEN Ordering Facility: [facility] OB-CIRCULAR SAW OPERATOR [place] Address: [facility] [address] [place] [address] TYPE CODE TESTS RESULT OUT OF RANGE REFERENCE UNITS LAB 6690-2(LOINC) WBC # Bld Auto 6.82 3.70-11.00 k/uL LAB 789-8(LOINC) RBC # Bld Auto 3.81 Low 3.90-5.20 m/ uL LAB 718-7(LOINC) Hgb Bld-mCnc 11.4 Low 11.5-15.5 g/dL LAB 4544-3(LOINC) Hct VFr Bld Auto 35.0 Low 36.0-46.0 % LAB 787-2(LOINC) MCV RBC Auto 91.9 80.0-100.0 fL LAB 785-6(LOINC) MCH RBC Qn Auto 29.9 26.0-34.0 p g LAB 786-4(LOINC) MCHC RBC Auto-mCnc 32.6 30.5-36.0 g/dL LAB 51645-9(LOINC) RDW RBC-Rto 12.9 11.5-15.0 % LAB 777-3(LOINC) Platelet # Bld Auto 167 150-400 k/uL LAB 64602-0(LOINC) PMV Bld Auto 11.4 9.0-12.7 fL LAB 770-8(LOINC) Neutrophils/leuk NFr Bld Auto 72.5 % LAB 751-8(LOINC) Neutrophils # Bld Auto 4.94 1.45-7.50 k/uL LAB 736-9(LOINC) Lymphocytes/leuk NFr Bld Auto 18.3 % LAB 731-0(LOINC) Lymphocytes # Bld Auto 1.25 1.00-4.00 k/uL LAB 5905-5(LOINC) Monocytes/leuk NFr Bld Auto 7.6 % LAB 742-7(INC) Monocytes # Bld Auto 0.52 <0.87 k/uL LAB 713-8(LOINC) Eosinophil/leuk NFr Bld Auto 0.7 % LAB 711-2(INC) Eosinophil # Bld Auto 0.05 <0.46 k/uL LAB 706-2(INC) Basophils/leuk NFr Bld Auto 0.6 % LAB 704-7(INC) Basophils # Bld Auto 0.04 <0.11 k/uL LAB 66514-9([facility]) Imm Granulocytes/payton k NFr Bld Auto 0.3 % LAB 06880-4(INC) Imm Granulocytes # Bld Auto <0.03 <0.10 k/uL LAB 89783-7([facility]) nRBC/100 WBC Bld-Rto 0.0 /100 WBC LAB 771-6([facility]) nRBC # Bld Auto <0.01 <0.01 k/u L LAB 24189-8([facility]) Differential method Bld Auto Performed By: #### 19476-3 # ### [facility] CLIA [id number] [address] [place] [address] ALLERGIES DATE TYPE / CODE NAME / CODE REACTION SEVERITY SOURCE Drug Class/[id number](SNO MED CT) NO KNOWN ALLERGIES [facility]as Cli sofia Armas Drug Class/[id number](SNO MED CT) NO KNOWN ALLERGIES [facility] ENCOUNTERS ADMIT/DISCHARGE ACCOUNT NUMBER ADMITTING ENCOUNTER CLASS LOCATION SOURCE 10/26/2024/10/27/19 [id number] Ambulatory Building:[facility] OB [facility] 08/03/2024/08/04/19 [id number] Ambulatory Building:[facility] OB [facility] EPIC 07/16/2024/07/17/19 25 [id number] Ambulatory [facility] ing[facility] 04/06/2024/04/06/20 24 [id number] Ambulatory Building:[facility] EPIC 02/18/2024/02/18/20 24 [id number] Ambulatory Building:[facility] EPIC 02/10/2024/02/10/20 24 [id number] Ambulatory Building:[facility] EPIC 02/05/2024/02/05/20 24 [id number] Ambulatory [facility] ing:[facility] 01/27/2024/01/27/20 24 [id number] Ambulatory Building:[facility] EPIC 01/19/2024/01/19/20 24 [id number] Ambulatory [facility] HospitalBuild ing:[facility] 01/13/2024/01/13/20 24 [id number] Ambulatory Building:[facility] EPIC 01/05/2024/01/05/20 24 [id number] Ambulatory [facility] HospitalBuild ing:[facility] 12/30/2023/12/30/19 24 [id number] Ambulatory Building:[facility] EPIC 12/16/2023/12/16/19 24 [id number] Ambulatory Building:[facility] EPIC 12/08/2023/12/08/19 24 [id number] Ambulatory [facility] ing:[facility] 11/20/2023/11/20/19 24 [id number] Ambulatory [facility] HospitalBuild ing:[facility] 11/18/2023/11/18/19 24 [id number] Ambulatory Building:[facility] OB [facility] EPIC 11/13/2023/11/13/19 24 [id number] Ambulatory Buildin 1 [facility] 11/13/2023/11/13/19 24 [id number] Ambulatory Buildin 0 [facility] PAYERS ENCOUNTER GUARANTOR PAYER SUBSCRIBER SOURCE 10/26/2024 JESSEE WHATLEYB: [place] [address]Uoi: (HP) (WP) Primary Insurance:MEDICAL MUTUALPolicy Number: [id number] Date:2021-09-19 KAT WHATLEYB: [id number] [place] [address] [facility] 08/03/2024 JESSEE WHATLEYB: [place] [address]Tly: (HP) (WP) Primary Insurance:MEDICAL MUTUALPolicy Number: [id number] Date:2021-09-19 KAT WHATLEYB: [id number] [place] [address] [facility] EPIC 07/16/2024 Primary Insuranc e:MMO SUPERMED PPOPolicy Number: [id number] Date:[id number] Name:Micky GAN: [id number] [place] [address] [facility] 04/06/2024 JESSEE WHATLEYB: [place] [address]Lle: (HP) (WP) Primary Insurance:MEDICAL MUTUALPolicy Number: [id number] Date:2021-09-19 KAT WHATLEYB: [id number] [place] [address] [facility] EPIC 02/18/2024 JESSEE WHATLEYB: [place] [address]Rbd: (HP) (WP) Primary Insurance:MEDICAL MUTUALPolicy Number: [id number] Date:2021-09-19 KAT WHATLEYB: [id number] [place] [address] [facility] 02/10/2024 JESSEE WHATLEYB: [place] [address]Tgs: (HP) (WP) Primary Insurance:MEDICAL MUTUALPolicy Number: [id number] Date:2021-09-19 KAT WHATLEYB: [id number] [place] [address] [facility] 02/05/2024 Primary Insuranc e:MMO SUPERMED PPOPolicy Number: [id number] Date:[id number] Name:Micky WHATLEYB: [id number] [place] [address] [facility] 01/27/2024 JESSEE WHATLEYB: [place] [address]Cch: (HP) (WP) Primary Insurance:MEDICAL MUTUALPolicy Number: [id number] Date:2021-09-19 KAT WHATLEYB: [id number] [place] [address] [facility] 01/19/2024 Primary Insuranc e:MMO SUPERMED PPOPolicy Number: [id number] Date:4680-08-61Yuge Name:Micky GAN: [id number] [place] [address] [facility] 01/13/2024 JESSEE WHATLEYB: [place] [address]Pwg: (HP) (WP) Primary Insurance:MEDICAL MUTUALPolicy Number: [id number] Date:2021-09-19 KAT WHATLEYB: [id number] [place] [address] [facility] 01/05/2024 Primary Insuranc e:MMO SUPERMED PPOPolicy Number: [id number] Date:8111-17-07Ofws Name:Micky WHATLEYB: [id number] [place] [address] [facility] 12/30/2023 JESSEE WHATLEYB: [place] [address]Xnn: (HP) (WP) Primary Insurance:MEDICAL MUTUALPolicy Number: [id number] Date:2021-09-19 KAT WHATLEYB: [id number] [place] [address] [facility] 12/16/2023 JESSEE WHATLEYB: [place] [address]Nkw: (HP) (WP) Primary Insurance:MEDICAL MUTUALPolicy Number: [id number] Date:2021-09-19 KAT WHATLEYB: [id number] [place] [address] [facility] 12/08/2023 Primary Insuranc e:MMO SUPERMED PPOPolicy Number: [id number] Date:1751-39-58Vsil Name:Micky WHATLEYB: [id number] [place] [address] [facility] 11/20/2023 Primary Insuranc e:MMO SUPERMED PPOPolicy Number: [id number] Date:[id number] Name:Micky WHATLEYB: [id number] [place] [address] [facility] 11/18/2023 JESSEE Weeks CHACORTAB: [place] [address]Xsx: (HP) (WP) Primary Insurance:MEDICAL MUTUALPolicy Number: [id number] Date:2021-09-19 KAT WHATLEYB: [id number] [place] [address] [facility] 11/13/2023 JESSEE CHALO CHACORTAB: [place] [address]Evn: () Primary Insurance:MMO SUPERMEDPolicy Number: [id number] Date:2018-07-10 GORDON CHACORTAB: [id number] [place] [address]Vxg: () [facility] 11/13/2023 JESSEE CHALO CHACORTAB: [place], [place] [address]Euw: (HP) Primary Insurance:MMO SUPERMEDPolicy Number: [id number] Date:2018-07-10 GORDON CHACORTAB: [id number] [place] [address]Atk: (HP) [facility]
--- OUTSIDE RECORDS SUMMARY | 2024-10-26 09:00 | XMS_ITS | Encounter Summary ---
Author Organization [facility] Address [address] [facility] [place] [address] Care Team Providers Care Clearance Coordinator Name Role Phone Chhaya Ceballos MD Primary Care Provider [phone] Reason for Visit * Reason Comments Well Women Visit Encounter Details Date Type Department Care Team (Late st Contact Info) Description 10/26/2024 9:00 AM EDT Office Visit [facility] [address] [place] [id number] Guillaume Vasquez, DO [address] [place], [place] [id number] Well woman exam with routine gynecological exam Social History Tobacco Use Types Packs/Day Years Used Date Smoking Tobacco: Former Cigarettes Smokeless Tobacco: Never Alcohol Use Standard Drinks/Week Comments Not Currently 0 (1 standard drink = 0.6 oz pure alcohol) caffeine: 2-3 cups per day coffee; soda Comments Unknown Sex and Gender Information Value Date Recorded Sex Assigned at Not on file Legal Sex Female 6:52 PM EDT Gender Identity Not on file Sexual Orientation Not on file documented as of this encounter Last Filed Vital Signs Vital Sign Reading Time Taken Comments Blood Pressure 122/78 10/26/2024 9:24 AM EDT Pulse - - Temperature - - Respiratory Rate - - Oxygen Saturation - - Inhaled Oxygen Concentration - - Weight 81.8 kg (180 lb 6.6 oz) 10/26/2024 9:24 A M EDT Height 182.9 cm (6') 10/26/2024 9:24 AM EDT Body Mass Index 24.47 10/26/2024 9:24 AM EDT documented in this encounter Progress Notes * Wilda Francis, [employer] - 10/26/2024 9:00 AM EDT Reason for Appointment: Patient ID: Stacie Almodovar is a 34 y.o. female who presents for Well Women Visit Patient presents today for Annual Exam. MEDICATIONS Current Outpatient Medications Medication Instructions Adderall 5 MG tablet 5 mg, As needed amphetamine-dextroamphetamine XR (Adderall XR) 10 MG 24 hr capsule 10 mg, Oral, Every morning labetalol (NORMODYNE) 100 mg, Oral, 2 times daily levothyroxine (SYNTHROID, LEVOXYL) 200 mcg, Oral, Daily RT omeprazole (PRILOSEC) 40 mg, Oral, Daily MV-Min-Fe Fum-FA-DHA ( 1 PO) Take by mouth. venlafaxine XR (EFFEXOR XR) 37.5 mg, Oral, Daily, Do not crush or chew. venlafaxine XR (EFFEXOR XR) 150 mg, Oral, Daily, Do not crush or chew. venlafaxine XR (EFFEXOR XR) 150 mg, Daily ALLERGIES No Known Allergies PROBLEMS Active Ambulatory Problems Diagnosis Date Noted Irregular menses 06/02/2023 Resolved Ambulatory Problems Diagnosis Date Noted No Resolved Ambulatory Problems Past Medical History: Diagnosis Date Acne Anxiety Endometrial polyp Hypertension Hypothyroidism HISTORY PAST MEDICAL HISTORY SOCIAL HISTORY Past Medical History: Diagnosis Date Acne Anxiety Endometrial polyp Hypertension Hypothyroidism Social History Tobacco Use Smoking status: Former [...] nursing note reviewed. Exam conducted with a recycling collections driver present. Vitals: Estimated body mass index is 24.47 kg/m?? as calculated from the following: Height as of this encounter: 6'. Weight as of this encounter: 180 lb 6.6 oz. BP: 122/78 No LMP recorded. ASSESSMENT & PLAN ICD-10-CM 1. Well woman exam with routine gynecological exam Z01.419 Pap Smear HPV DNA probe, amplified Orders Placed This Encounter Procedures HPV DNA probe, amplified Annual Wellness Exam: Patient presents today for routine annual exam. Patient states she has complaints of decreased libido. Patients vitals were reviewed and within normal limits. Growth and development is noted to be appropriate for age. Menstrual history is noted to be regular with no concerns reported. No mental health concerns was expressed. Pap Smear: Speculum was inserted into the vagina and pap was obtained without difficulty. HPV testing was performed per age guideline. Patient was advised that pap results could take anywhere from 7 to 10 days to receive and our office will reach out to the patient with those once we have them. Patient can also view results via [employer]. I reinforced importance of condom use for STI prevention. Patient declined cultures to be performed with today's visit. Breast Exam: Upon examination, clinical breast exam was noted to be normal. Patient was counseled on breast self-awareness, including the importance of knowing what is normal for her own breasts and promptly reporting any changes such as new lumps, skin dimpling, nipple discharge, or pain. Screening mammogram recommended annually beginning at age 40 or earlier if risk factors are present. Discussed signs and symptoms of breast cancer and when to seek medical attention. Answered all patient questions. Contraceptive Counseling (if applicable): Patient is currently using no control at this time as a form of contraceptive. Patient had vasectomy Follow Up: Patient is to return to our office in one year for annual exam unless needed otherwise. Documented by Wilda Francis LPN on behalf of: Guillaume Vasquez DO documented in this encounter Plan of Treatment Upcoming Encounters Date Type Department Care Team (Late st Contact Info) Description 11/01/2025 9:00 AM EDT Office Visit [facility] [address] [facility] [place] [address] Guillaume Vasquez DO [address] [place] [address] Scheduled Orders Name Type Priority Associated Diagnoses Orde r Schedule Pap Smear Pathology and Cytology Routine Well woman exam with routine gynecological exam Ordered: 10/26/2024 HPV DNA probe, amplified Microbiology Routine Well woman exam with routine gynecological exam Ordered: 10/26/2024 documented as of this encounter Visit Diagnoses Diagnosis Well woman exam with routine gynecological exam Routine gynecological examination documented in this encounter Care Teams Clearance Coordinator Relationship Specialty Start Date End Date Chhaya Ceballos MD PCP - General Family Medicine 03/04/23 documented as of this encounter
--- OUTSIDE RECORDS SUMMARY | 2024-10-26 12:31 | XMS_ITS | Encounter Summary ---
Author Organization [facility] Address [address] [facility] [place] [address] Care Team Providers Care Property Utilization Manager Name Role Phone Chhaya Ceballos MD Primary Care Provider [phone] Encounter Details Date Type Department Care Team (Late st Contact Info) Description 10/21/2023 Abstract [facility] OB [address] [facility] [address] [place] [address] Jeanne Alvarado LPN [address] [place] [id number] Social History Tobacco Use Types Packs/Day Years Used Date Smoking Tobacco: Former Cigarettes Smokeless Tobacco: Never Alcohol Use Standard Drinks/Week Comments Not Currently 0 (1 standard drink = 0.6 oz pure alcohol) caffeine: 2-3 cups per day coffee; soda Comments Yes Sex and Gender Information Value Date Recorded Sex Assigned at Not on file Legal Sex Female 6:52 PM EDT Gender Identity Not on file Sexual Orientation Not on file documented as of this encounter Plan of Treatment Upcoming Encounters Date Type Department Care Team (Late st Contact Info) Description 11/01/2025 9:00 AM EDT Office Visit [facility] OB [address] [facility] [address] [place] [address] Guillaume Vasquez, DO [address] [facility] [address] [place], [facility] documented as of this encounter Visit Diagnoses Not on filedocumented in this encounter Care Teams Property Utilization Manager Relationship Specialty Start Date End Date Chhaya Ceballos MD PCP - General Family Medicine 03/04/23 documented as of this encounter
--- OUTSIDE RECORDS SUMMARY | 2024-10-26 12:31 | XMS_ITS | Encounter Summary ---
Author Organization [facility] Address [address] [facility] [place] [address] Care Team Providers Care Director Equipment Name Role Phone Chhaya Ceballos MD Primary Care Provider [phone] Encounter Details Date Type Department Care Team (Late st Contact Info) Description 08/11/2023 Abstract [facility] OB [address] [facility] [address] Lisa Montes LPN [address] [facility] [place] [address] Social History Tobacco Use Types Packs/Day Years Used Date Smoking Tobacco: Some Days Cigarettes Alcohol Use Standard Drinks/Week Comments Yes 0 (1 standard drink = 0.6 oz [...] 11/01/2025 9:00 AM EDT Office Visit [facility] [address] [facility] [address] Guillaume Vasquez, [address] [facility] [address] [place], [place] [id number] documented as of this encounter Visit Diagnoses Not on filedocumented in this encounter Care Teams Director Equipment Relationship Specialty Start Date End Date Chhaya Ceballos MD PCP - General Family Medicine 03/04/23 documented as of this encounter
--- OUTSIDE RECORDS SUMMARY | 2024-10-26 12:31 | XMS_ITS | Encounter Summary ---
Author Organization [facility] Address [address] [place] [address] Care Team Providers Care Surveyor'S Assistant Name Role Phone Chhaya Ceballos Primary Care Provider + Emile Mesa MD Unavailable Guillaume Vasquez DO Unavailable [phone] Source Comments In the event this information is protected by the Federal Confidentiality of Alcohol and Drug AbusePatient Records regulations: The Federal rules restrict any use of the information to criminally investigate or prosecute any alcohol or drug abuse patient.[facility] Encounter Details Date Type Department Care Team (Late st Contact Info) Description 03/28/2023 [place] [address] Provider, [facility] MRI Screening Questionnaire Completion Required Social History Tobacco Use Types Packs/Day Years Used Date Smoking Tobacco: Some Days Cigarettes Passive Smoke Exposure: Past Smokeless Tobacco: Never Alcohol Use Standard Drinks/Week Comments Yes 0 (1 standard drink = 0.6 oz pur e alcohol) PHQ-2 Answer Date Recorded PHQ-2 score 2 02/25/2023 Area Deprivation Index Answer Date Umberto rded National Score (1-100), lower number is lower ri sk 91 02/25/2023 State Score (1-10), lower number is lower risk 9 02/25/2023 Data from: https://www.neighborhoodatlas.[facility] Last address used for calculation [address] 02/25/2023 Comments No Sex and Gender Information Value Date Recorded Sex Assigned at Not on file Legal Sex Female 1:05 PM EDT Gender Identity Not on file Sexual Orientation Not on file documented as of this encounter Plan of Treatment Not on file documented as of this encounter Visit Diagnoses Not on filedocumented in this encounter Care Teams Surveyor'S Assistant Relationship Specialty Start Date End Date Chhaya Ceballos DO [address] [facility] [place] [address] PCP - General Family Medicine 07/25/22 Emile Mesa MD [address] [place] [address] Gastroenterology 07/25/22 Guillaume Vasquez DO [address] [place] [address] [place] [address] Sewing Machinist 07/25/22 documented as of this encounter
--- OUTSIDE RECORDS SUMMARY | 2024-10-26 12:31 | XMS_ITS | Encounter Summary ---
Author Organization [facility] Address [address] [facility] [place] [address] Care Team Providers Care Manager Van Name Role Phone Chhaya Ceballos MD Primary Care Provider Encounter Details Date Type Department Care Team (Late st Contact Info) Description 12/10/[address] [facility] OB [address] [place] [address] Guillaume Vasquez DO [facility] [address], [place] [address] Social History Tobacco Use Types Packs/Day Years [...] 11/01/2025 9:00 AM EDT Office Visit [facility] OB [address] [place] [address] Guillaume Vasquez DO [address] [place], [facility] documented as of this encounter Visit Diagnoses Not on filedocumented in this encounter Care Teams Manager Van Relationship Specialty Start Date End Date Chhaya Ceballos MD PCP - General Family Medicine 03/04/23 documented as of this encounter
--- OUTSIDE RECORDS SUMMARY | 2024-10-26 12:31 | XMS_ITS | Encounter Summary ---
Author Organization [facility] Address [address] [place] [address] Care Team Providers Care Timber Harvester Operator Name Role Phone Chhaya Ceballos MD Primary Care Provider [phone] Encounter Details Date Type Department Care Team (Late st Contact Info) Description 12/23/2023 Clinisync Result Encounter [facility] External Department Unsolicited Tee Vasquez, DO [address] [place] [address] Social History Tobacco Use Types Packs/Day Years [...] on file documented as of this encounter Miscellaneous Notes * Result Encounter Note - Jeanne Alvarado LPN - 12/23/2023 1:36 PM EDT Ordered and put with pt's flowsheet for tomorrows appt. documented in this encounter Plan of Treatment Upcoming Encounters Date Type Department Care Team (Late st Contact Info) Description 11/01/2025 9:00 AM EDT Office Visit [facility] OB [address] [place] [address] Tee Vasquez, [address] [facility] [address] [place] [address] documented as of this encounter Procedures Procedure Name Priority Date/Time Associated Diagnosis Comments US OB GROWTH 12/23/2023 1:32 PM EDT documented in this encounter Results * US OB GROWTH (12/23/2023 1:32 PM EDT) Anatomical Region Laterality Modality Other 12/23/2023 1:32 PM EDT Narrative 12/23/2023 1:35 PM EDT [address] [address] Ultrasound Report Signed Patient: JESSEE JEFFERS MR#: [id number] : 1990 Acct:[id number] Age/Sex: 33 / F ADM Date: 12/20/23 Loc: US Attending Dr: Tee Vasquez D.O. Ordering Physician: Tee Vasquez D.O. Date of Service: 12/20/23 Procedure(s): US OB growth Accession Number(s): [id number] cc: Tee Vasquez D.O.; Physician,Non-Staff MUriah The [address] [address] Patient Name: JESSEE JEFFERS MRN: [id number] date: 1990 Sex: F Assigned Patient Location: US Current Patient Location: Accession/Order Number: [id number] Exam Date: 12/20/2023 10:15 Report Date: 12/23/2023 13:32 At the request of: TEE VASQUEZ Procedure: US OB growth EXAMINATION: US OB growth HISTORY: THYROID DISEASE E07.9 COMPARISON: Ultrasound OB transvaginal 07/24/2023 FINDINGS: Heart Rate: 150 bpm Amniotic Fluid Volume: 12.4 cm; normal range Number: 1 Position: CEPHALIC BIOMETRY: BPD: 7.49 cm; 30 weeks 0 days; 88.20 % HC: 27.80 cm; 30 weeks 3 days; 82 % AC: 26.51 cm; 30 weeks 4 days; 95.40 % FL: 5.69 cm; 29 weeks 6 days; 79.50 % EFW: 1552.10 g; 96.80 % FL/AC: 21.48 FL/BPD: 76.01 HC/AC: 1.05 GESTATIONAL AGE: Age by EDC: 20 weeks 2 days MEHUL by EDC: 2024-03-11 Age by US: 30 weeks 2 days MEHUL by US: 2024-02-26 US/US OB growth IMPRESSION: 1. Single live intrauterine with growth detailed above. 2. Estimated weight is at 97th percentile. Electronically authenticated by: ANAND GIPSON Date: 12/23/2023 13:32 Dictated By: Anand Gipson M.D. Signed By: 12/23/23 1335 DD/ 31 TD/TT: Lighthouse Keeper: Procedure Note Radiology, Radiologist, MD - 12/23/2023 [place] [id number] Ultrasound Report Signed Patient: JESSEE JEFFERS BMR#: [id number] : 1990Acct:[id number] Age/Sex: 33 / FADM Date: 12/20/23 Loc: US Attending Dr: Tee Vasquez D.O. Ordering Physician: Tee Vasquez D.O. Date of Service: 12/20/23 Procedure(s): US OB growth Accession Number(s): [id number] cc: Tee Vasquez D.O.; Physician,Non-Staff Asim The [place] [id number] Patient Name: JESSEE JEFFERS MRN: [id number] date: 1990 Sex: F Assigned Patient Location: US Current Patient Location: Accession/Order Number: [id number] Exam Date: 12/20/2023 10:15 Report Date: 12/23/2023 13:32 At the request of: TEE VASQUEZ Procedure: US OB growth EXAMINATION: US OB growth HISTORY: THYROID DISEASE E07.9 COMPARISON: Ultrasound OB transvaginal 07/24/2023 FINDINGS: Heart Rate: 150 bpm Amniotic Fluid Volume: 12.4 cm; normal range Number: 1 Position: CEPHALIC BIOMETRY: BPD: 7.49 cm; 30 weeks 0 days; 88.20 % HC: 27.80 cm; 30 weeks 3 days; 82 % AC: 26.51 cm; 30 weeks 4 days; 95.40 % FL: 5.69 cm; 29 weeks 6 days; 79.50 % EFW: 1552.10 g; 96.80 % FL/AC: 21.48 FL/BPD: 76.01 HC/AC: 1.05 GESTATIONAL AGE: Age by EDC: 20 weeks 2 days MEHUL by EDC: 2024-03-11 Age by US: 30 weeks 2 days MEHUL by US: 2024-02-26 US/US OB growth IMPRESSION: 1. Single live intrauterine with growth detailed above. 2. Estimated weight is at 97th percentile. Electronically authenticated by: ANAND GIPSON Date: 12/23/2023 13:32 Dictated By: Anand Gipson M.D. Signed By:12/23/23 1335 DD/ 31 TD/TT: Lighthouse Keeper: us Tee Vasquez DO [facility] Final Result documented in this encounter Visit Diagnoses Not on filedocumented in this encounter Care Teams Timber Harvester Operator Relationship Specialty Start Date End Date Chhaya Ceballos MD PCP - General Family Medicine 03/04/23 documented as of this encounter
--- OUTSIDE RECORDS SUMMARY | 2024-10-26 12:31 | XMS_ITS | Encounter Summary ---
Author Organization [facility] Address [address] [facility] [place] [address] Care Team Providers Care Supervisor Loading Name Role Phone Chhaya Ceballos MD Primary Care Provider [phone] Encounter Details Date Type Department Care Team (Late st Contact Info) Description 02/05/2024 Abstract [facility] OB [address] [place] [address] Guillaume Vasquez DO [facility] [address] [place], [place] [address] Social History Tobacco Use Types Packs/Day Years [...] 11/01/2025 9:00 AM EDT Office Visit [facility] OB [address] [place] [address] Guillaume Vasquez DO [address], [facility] documented as of this encounter Visit Diagnoses Not on filedocumented in this encounter Care Teams Supervisor Loading Relationship Specialty Start Date End Date Chhaya Ceballos MD PCP - General Family Medicine 03/04/23 documented as of this encounter
--- OUTSIDE RECORDS SUMMARY | 2024-10-26 12:31 | XMS_ITS | Encounter Summary ---
Author Organization [facility] Address [address] [facility] [place] [address] Care Team Providers Care Tester Operator Helper Name Role Phone Chhaya Ceballos MD Primary Care Provider [phone] Encounter Details Date Type Department Care Team (Late st Contact Info) Description 02/10/[address] [facility] OB [address] [place] [address] Guillaume Vasquez DO [facility] [address] [place], [place] [address] Social History Tobacco Use Types Packs/Day Years [...] AM EDT Office Visit [facility] OB [address] [place] [address] Guillaume Vasquez DO [address] [place], [facility]11 documented as of this encounter Visit Diagnoses Not on filedocumented in this encounter Care Teams Tester Operator Helper Relationship Specialty Start Date End Date Chhaya Ceballos MD PCP - General Family Medicine 03/04/23 documented as of this encounter
--- OUTSIDE RECORDS SUMMARY | 2024-10-26 12:31 | XMS_ITS | Encounter Summary ---
Author Organization [facility] Address [address] [facility] [place] [address] Care Team Providers Care Tool Salvage Worker Name Role Phone Chhaya Ceballos MD Primary Care Provider [phone] Encounter Details Date Type Department Care Team (Late st Contact Info) Description 02/06/2024 Abstract [facility] OB [address] [place] [address] Guillaume Vasquez DO [facility] [address] [place], [place] [address] Social History Tobacco Use Types Packs/Day Years [...] 11/01/2025 9:00 AM EDT Office Visit [facility] OB [address] [place] [address] Guillaume Vasquez DO [address] [place], [facility] documented as of this encounter Visit Diagnoses Not on filedocumented in this encounter Care Teams Tool Salvage Worker Relationship Specialty Start Date End Date Chhaya Ceballos MD PCP - General Family Medicine 03/04/23 documented as of this encounter
--- OUTSIDE RECORDS SUMMARY | 2024-10-26 12:31 | XMS_ITS | Encounter Summary ---
Author Organization [facility] Address [address] [place] [address] Care Team Providers Care Central Control Room Operator Name Role Phone Chhaya Ceballos MD Primary Care Provider [phone] Encounter Details Date Type Department Care Team (Late st Contact Info) Description 01/28/2024 Clinisync Result Encounter [facility] External Department Unsolicited Guillaume Vasquez, DO [address] [place], [place] [id number] Social History Tobacco Use Types Packs/Day Years [...] EDT Office Visit [facility] B[facility] OB [address] [place] [address] Guillaume Vasquez DO [facility] [place] [place] [address] documented as of this encounter Procedures Procedure Name Priority Date/Time Associated Diagnosis Comments US OB BPP W NON-STRESS 01/28/2024 10:20 AM EDT documented in this encounter Results * US OB BPP W NON-STRESS (01/28/2024 10:20 AM EDT) Anatomical Region Laterality Modality Other 01/28/2024 10:2 0 AM EDT Narrative 01/28/2024 10:22 [place] [address] Ultrasound Report Signed Patient: STACIE JEFFERS MR#: [id number] : 1990 Acct:[id number] Age/Sex: 33 / F ADM Date: 01/28/24 Loc: [facility] 252-[address]: Guillaume Vasquez D.O. Ordering Physician: Guillaume Vasquez D.O. Date of Service: 01/28/24 Procedure(s): US OB BPP w non-stress Accession Number(s): [id number] cc: Guillaume Vasquez D.O.; Physician,Non-Staff M.DCristopher [place] [id number] Patient Name: STACIE JEFFERS MRN: [facility]:[id number] date: 1990 Sex: F Assigned Patient Location: [facility] Current Patient Location: [facility] Accession/Order Number: [id number] Exam Date: 01/28/2024 09:20 Report Date: 01/28/2024 10:20 At the request of: GUILLAUME VASQUEZ Procedure: US OB BPP w non-stress EXAMINATION: US OB BPP w non-stress HISTORY:repeat - 09/26 on Friday01/24/24 COMPARISON: Ultrasound OB biophysical 01/24/2024 TECHNIQUE: Ultrasound biophysical profile was performed in the radiology department. BREATHING MOVEMENTS: 2 GROSS BODY MOVEMENTS: 2 TONE: 2 QUALITATIVE AMNIOTIC FLUID VOLUME: 2 PRESENTATION: CEPHALIC HEART RATE: 142.86 bpm AMNIOTIC FLUID VOLUME: 21.89 cm GESTATIONAL AGE: 33 weeks 6 days US/US OB BPP w non-stress IMPRESSION: Total biophysical profile score: 8 Electronically authenticated by: ANAND GIPSON Date: 01/28/2024 10:20 Dictated By: Anand Gipson M.D. Signed By: 01/28/24 1022 DD/ 1020 TD/TT: Phlebotomy Tech: Procedure Note Radiology, Radiologist, - 01/28/2024 [place] [address] Ultrasound Report Signed Patient: STACIE JEFFERS BMR#: [id number] : 1990Acct:[id number] Age/Sex: 33 / FADM Date: 01/28/24 Loc: [facility] 252-[address]: Guillaume Vasquez D.O. Ordering Physician: Guillaume Vasquez D.O. Date of Service: 01/28/24 Procedure(s): US OB BPP w non-stress Accession Number(s): [id number] cc: Guillaume Vasquez D.O.; Physician,Non-Staff Asim The [place] [address] Patient Name: STACIE JEFFERS MRN: [facility]:[id number] date: 1990 Sex: F Assigned Patient Location: [facility] Current Patient Location: [facility] Accession/Order Number: [id number] Exam Date: 01/28/2024 09:20 Report Date: 01/28/2024 10:20 At the request of: GUILLAUME VASQUEZ Procedure: US OB BPP w non-stress EXAMINATION: US OB BPP w non-stress HISTORY:repeat - 09/26 on Friday01/24/24 COMPARISON: Ultrasound OB biophysical 01/24/2024 TECHNIQUE: Ultrasound biophysical profile was performed in the radiology department. BREATHING MOVEMENTS: 2 GROSS BODY MOVEMENTS: 2 TONE: 2 QUALITATIVE AMNIOTIC FLUID VOLUME: 2 PRESENTATION: CEPHALIC HEART RATE: 142.86 bpm AMNIOTIC FLUID VOLUME: 21.89 cm GESTATIONAL AGE: 33 weeks 6 days US/US OB BPP w non-stress IMPRESSION: Total biophysical profile score: 8 Electronically authenticated by: ANAND GIPSON Date: 01/28/2024 10:20 Dictated By: Anand Gipson M.D. Signed By:01/28/24 1022 DD/ 1020 TD/TT: Phlebotomy Tech: us Guillaume Pedro DO [facility] Final Result documented in this encounter Visit Diagnoses Not on filedocumented in this encounter Care Teams Central Control Room Operator Relationship Specialty Start Date End Date Chhaya Ceballos MD PCP - General Family Medicine 03/04/23 documented as of this encounter
--- OUTSIDE RECORDS SUMMARY | 2024-10-26 12:31 | XMS_ITS | Clinical Summary ---
Author Organization [facility] Address [address] [place] [address] Care Team Providers Care Supervisor Twisting Department Name Role Phone Chhaya Ceballos MD Primary Care Provider [phone] Allergies No known active allergies Medications MV-Min-Fe Fum-FA-DHA ( 1 PO) Take by mouth. Active labetalol (Normodyne) 100 MG tabletIndications :Pre-existing hypertension during , antepartum, unspecified pre-existing hypertension type (HHS-HCC) Take 1 tablet (100 mg) by mouth in the morning and 1 tablet (100 mg) before bedtime. 60 tablet 11 4 Active venlafaxine XR (Effexor XR) 37.5 MG 24 hr capsuleIndication s:Anxiety and depression Take 1 capsule (37.5 mg) by mouth Daily Do not crush or chew. 30 capsule 11 4 Active levothyroxine (Synthroid, Levoxyl) 200 MCG tabletIndications :Thyroid disease Take 1 tablet (200 mcg) by mouth in the morning. 30 tablet 11 4 Active venlafaxine XR (Effexor XR) 75 MG 24 hr capsuleIndication s:Anxiety and depression Take 2 capsules (150 mg) by mouth Daily Do not crush or chew. 60 capsule 11 4 04/06/20 25 Active omeprazole (PriLOSEC) [address] capsuleIndication s:Other specified related conditions, first trimester (HHS-HCC) Take 1 capsule by mouth once daily. 30 capsule 11 5 Active amphetamine-dextr oamphetamine XR (Adderall XR) 10 MG 24 hr capsule Take 10 mg by mouth in the morning. Active Adderall 5 MG tablet Take 5 mg by mouth if needed 5 Active venlafaxine XR (Effexor XR) 150 MG 24 hr capsule Take 150 mg by mouth Daily 5 Active Active Problems Problem Noted Date Diagnosed Date Irregular menses 06/02/2023 Encounters Date Type Department Care Team Description 10/26/2024 9:00 AM EDT Office Visit [facility] [address] [place] [address] Guillaume Vasquez, Well woman exam with routine gynecological exam 10/26/2024 Bamboo flowsheet [facility] [address] [place] [address] Guillaume Vasquez DO 08/25/20[address] [facility] [address] [place] [address] Guillaume Vasquez, Other specified related conditions, first trimester ([facility]) 08/03/2024 9:30 AM EDT Ancillary Procedure [facility] [address] [place] [address] PCOS (polycystic ovarian syndrome) 07/27/[address] [facility] [address] [place] [address] Wilda Francis LPN from Last 3 Months Family History Medical History Relation Name Comments Osteoarthritis Father Cancer Maternal Grandfather Grandpa Heart problems Maternal Grandmother Hypertension Mother Relation Name Status Comments Father Maternal Grandfather Grandpa Maternal Grandmother Mother Social History Tobacco Use Types Packs/Day Years Used Date Smoking Tobacco: Former Cigarettes Smokeless Tobacco: Never Tobacco Cessation:Counseling Given: Not Answered Alcohol Use Standard Drinks/Week Comments Not Currently 0 (1 standard drink = 0.6 oz pure alcohol) caffeine: 2-3 cups per day coffee; soda Comments Unknown Sex and Gender Information Value Date Recorded Sex Assigned at Not on file Legal Sex Female 6:52 PM EDT Gender Identity Not on file Sexual Orientation Not on file Last Filed Vital Signs Vital Sign Reading [...] Mass Index 24.47 10/26/2024 9:24 AM EDT Plan of Treatment Upcoming Encounters Date Type Department Care Team (Late st Contact Info) Description 11/01/2025 9:00 AM EDT Office Visit [facility] B[facility] OB [address] [facility] [place] [address] Guillaume Vasquez, DO [address] [place] [address] Health Maintenance Due Date Last Done Comments Influenza Vaccine (#1) 2024 , 01/28/2023, 02/14/2022, Additional history exists Cervical Cancer Screening 10/20/2028 HPV/Cotest 10/20/2028 02/22/2019 Pap Smear 10/20/2028 10/21/2023 Procedures Procedure Name Priority Date/Time Associated Diagnosis Comments US PELVIC COMPLETE W/ TV Routine 08/03/2024 10:00 AM EDT PCOS (polycystic ovarian syndrome) PAP SMEAR Routine 10/21/2023 12:00 AM EDT THINPREP TIS PAP REFLEX HPV MRNA E6/E7 (58439) Routine 02/22/2019 from Last 3 Months or Most Recently Relevant to Health Maintenance Results * US Pelvis w/ TV (08/03/2024 10:00 AM EDT) Anatomical Region Laterality Modality Pelvis Ultrasound 08/04/2024 12:0 5 AM EDT Narrative 08/04/2024 12:05 AM EDT EXAM: US PELVIC COMPLETE W/ TV HISTORY: [...] II, MD, PHD at 04-Aug-2024 12:04:16 AM [facility] Procedure Note Ceferino Norris MD - 08/04/2024 EXAM: US PELVIC COMPLETE W/ TV HISTORY: PCOS, heavy cycles x 3 months. COMPARISON: None available. TECHNIQUE: Two-dimensional transvaginal grayscale ultrasound imaging ofthe pelvis was performed. Color flow Doppler imaging of the ovaries wasalso performed. FINDINGS: UTERUS 8.5 x 4.3 x 6.1 cm The uterus is insert in position and demonstrates a normal, homogeneousechotexture. Multiple nabothian cysts are visualized within the cervix. ENDOMETRIUM 1.2 cm The endometrium demonstrates a normal, homogeneous echotexture. RIGHT OVARY 2.8 x 1.7 x 2.8 cm The right ovary demonstrates a normal echotexture. There is normal colorDoppler flow. LEFT OVARY 2.6 x 1.7 x 2.3 cm The left ovary demonstrates a normal echotexture. There is normal colorDoppler flow. There is a dominant follicle visualized. No fluid is present within the cul-de-sac. IMPRESSION: 1. Unremarkable ultrasound of the pelvis. 2. Normal color Doppler flow within the bilateral ovaries. Interpreted by: Electronically signed by CEFERINO NORRIS II, MD, PHD [id number] 12:04:16 AM [facility] us Guillaume Pedro DO IMG US PROCEDURES Final Result * Pap Smear (10/21/2023 12:00 AM EDT) Swab Cervical swab / Unknown us Guillaume Pedro DO LAB CYTOLOGY ORDERABLES Final Re sult EXTERNAL LAB * THINPREP TIS PAP REFLEX HPV MRNA E6/E7 (62953) (02/22/2019) CLINICAL INFORMATION: None given [facility] LMP: None given [facility] PREV. PAP: None given [facility] EX[facility] PREV. BX: None given [facility] SOURCE: None given [facility] STATEMENT OF ADEQUACY: SEE COMMENT [facility] Comment: Satisfactory for evaluation. Endocervical/transformation zone component present. INTERPRETATION/RESU LT: SEE COMMENT [facility] Comment: Negative for intraepithelial lesion or malignancy. Reactive cellular changes associated with repair COMMENT: This Pap test has been evaluated with computer assisted technology. [facility] PIANO TECHNICIAN: SEE COMMENT [facility] Comment: [employer](ASCP) CT screening location: [place] [address]. PATHOLOGIST: SEE COMMENT [facility] Comment: Juarez Dorman M.D. Board Certified in Anatomic Pathology and Cytopathology (electronic signature) For questions regarding this report call Anatomic Pathology at [phone] Juarez Dorman MD, [employer] [place], [place] COMMENT SEE COMMENT [facility] Comment: EXPLANATORY NOTE: The Pap is a screening test for cervical cancer. It is not a diagnostic test and is subject to false negative and false positive results. It is most reliable when a satisfactory sample, regularly obtained, is submitted with relevant clinical findings and history, and when the Pap result is evaluated along with historic and current clinical information. 02/22/2019 us Yobany Art MD [facility] Final Result [facility] from Last 3 Months or Most Recently Relevant to Health Maintenance Insurance [employer] Member Subscriber Plan / Payer (Ef fective 2021-Present) Name:Stacie Jeffers Relation to Subscriber:Spouse Name:KAT JEFFERS AnilCristopher Date of :1971 Address: [address] [place] [address] Payer ID:Not on file Type:Not on file Address: [place] [id number] Care Teams Supervisor Twisting Department Relationship Specialty Start Date End Date Chhaya Ceballos MD PCP - General Family Medicine 03/04/23
--- OUTSIDE RECORDS SUMMARY | 2024-10-26 12:31 | XMS_ITS | Encounter Summary ---
Author Organization [facility] Address [address] [facility] [place] [address] Care Team Providers Care Human Resources Benefits Administrator Name Role Phone Chhaya Ceballos MD Primary Care Provider [phone] Encounter Details Date Type Department Care Team (Late st Contact Info) Description 10/16/2023 Abstract [facility] OB [address] [place] [address] Lisa Montes LPN [address] [facility] [address] [place] [place] [address] Social History Tobacco Use Types Packs/Day Years [...] 11/01/2025 9:00 AM EDT Office Visit [facility] OB [address] [place] [place] [address] Guillaume Vasquez, [address] [facility] [address] [place], [place] [id number] documented as of this encounter Visit Diagnoses Not on filedocumented in this encounter Care Teams Human Resources Benefits Administrator Relationship Specialty Start Date End Date Chhaya Ceballos MD PCP - General Family Medicine 03/04/23 documented as of this encounter
--- OUTSIDE RECORDS SUMMARY | 2024-10-26 12:31 | XMS_ITS | Encounter Summary ---
Author Organization [facility] Address [address] [place] [address] Care Team Providers Care Senior Data Architect Name Role Phone Chhaya Ceballos MD Primary Care Provider [phone] Encounter Details Date Type Department Care Team (Late st Contact Info) Description 02/01/2024 Clinisync Result Encounter [facility] External Department Unsolicited Guillaume Vasquez, DO [address] [place], [place] [id number] Social History Tobacco Use Types Packs/Day Years [...] Visit [facility] BCP OB [address] [place] [address] Guillaume Vasquez DO [facility] [place] [address] documented as of this encounter Procedures Procedure Name Priority Date/Time Associated Diagnosis Comments US OB BPP W NON-STRESS 02/01/2024 4:24 AM EDT documented in this encounter Results * US OB BPP W NON-STRESS (02/01/2024 4:24 AM EDT) Anatomical Region Laterality Modality Other 02/01/2024 4:24 AM EDT Narrative 02/01/2024 4:27 [place] [address] Ultrasound Report Signed Patient: STACIE JEFFERS MR#: [id number] : 1990 Acct:[id number] Age/Sex: 33 / F ADM Date: 01/31/24 Loc: US Attending Dr: Guillaume Vasquez D.O. Ordering Physician: Guillaume Vasquez D.O. Date of Service: 01/31/24 Procedure(s): US OB BPP w non-stress Accession Number(s): [id number] cc: Guillaume Vasquez D.O.; Physician,Non-Staff M.DCristopher [place] [id number] Patient Name: STACIE JEFFERS MRN: [facility]:[id number] date: 1990 Sex: F Assigned Patient Location: [facility] Current Patient Location: Accession/Order Number: [id number] Exam Date: 01/31/2024 13:06 Report Date: 02/01/2024 04:24 At the request of: GUILLAUME VASQUEZ Procedure: US OB BPP w non-stress EXAMINATION: US OB BPP w non-stress HISTORY:EXCESSIVE GROWTH AFFECTING O36.63X0 COMPARISON: Ultrasound OB biophysical 01/28/2024 TECHNIQUE: Ultrasound biophysical profile was performed in the radiology department. BREATHING MOVEMENTS: 2 GROSS BODY MOVEMENTS: 2 TONE: 2 QUALITATIVE AMNIOTIC FLUID VOLUME: 2 PRESENTATION: CEPHALIC HEART RATE: 142.86 bpm AMNIOTIC FLUID VOLUME: 16.45 cm GESTATIONAL AGE: 34 weeks 2 days US/US OB BPP w non-stress IMPRESSION: Total biophysical profile score: 8 Electronically authenticated by: ANAND GIPSON Date: 02/01/2024 04:24 Dictated By: Anand Gipson M.D. Signed By: 02/01/24426 DD/ 3 TD/TT: Mannequin Coloring Artist: Procedure Note Radiology, Radiologist, - 02/01/2024 [place] [address] Ultrasound Report Signed Patient: STACIE JEFFERS BMR#: [id number] : 1990Acct:[id number] Age/Sex: 33 / FADM Date: 01/31/24 Loc: US Attending Dr: Guillaume Vasquez D.O. Ordering Physician: Guillaume Vasquez D.O. Date of Service: 01/31/24 Procedure(s): US OB BPP w non-stress Accession Number(s): [id number] cc: Guillaume Vasquez D.O.; Physician,Non-Staff Asim The [place] [id number] Patient Name: STACIE JEFFERS MRN: [facility]:[id number] date: 1990 Sex: F Assigned Patient Location: [facility] Current Patient Location: Accession/Order Number: [id number] Exam Date: 01/31/2024 13:06 Report Date: 02/01/2024 04:24 At the request of: GUILLAUME VASQUEZ Procedure: US OB BPP w non-stress EXAMINATION: US OB BPP w non-stress HISTORY:EXCESSIVE GROWTH AFFECTING O36.63X0 COMPARISON: Ultrasound OB biophysical 01/28/2024 TECHNIQUE: Ultrasound biophysical profile was performed in the radiology department. BREATHING MOVEMENTS: 2 GROSS BODY MOVEMENTS: 2 TONE: 2 QUALITATIVE AMNIOTIC FLUID VOLUME: 2 PRESENTATION: CEPHALIC HEART RATE: 142.86 bpm AMNIOTIC FLUID VOLUME: 16.45 cm GESTATIONAL AGE: 34 weeks 2 days US/US OB BPP w non-stress IMPRESSION: Total biophysical profile score: 8 Electronically authenticated by: ANAND GIPSON Date: 02/01/2024 04:24 Dictated By: Anand Gipson M.D. Signed By:02/01/247 DD/ 3 TD/TT: Mannequin Coloring Artist: us Guillaume Pedro DO [facility] Final Result documented in this encounter Visit Diagnoses Not on filedocumented in this encounter Care Teams Senior Data Architect Relationship Specialty Start Date End Date Chhaya Ceballos MD PCP - General Family Medicine 03/04/23 documented as of this encounter
--- OUTSIDE RECORDS SUMMARY | 2024-10-26 12:31 | XMS_ITS | Encounter Summary ---
Author Organization [employer] Address [id number] [address] [place] [address] Care Team Providers Care Lottery Office Manager Name Role Phone Mely Castillo DO Primary Care Provider [phone] Encounter Details Date Type Department Care Team (Late st Contact Info) Description 03/25/2023 Orders Only [facility] [address] [place] [address] Mei Schaefer, PROFESSOR OF SPORT MANAGEMENT[employer] [address] [place] [address] Social History Tobacco Use Types Packs/Day Years Used Date Smoking Tobacco: Former Smokeless Tobacco: Never Alcohol Use Standard Drinks/Week Comments Yes 2 (1 standard drink = 0.6 oz pur e alcohol) on the weekends PHQ-2 Answer Date Recorded Total Score 10 08/08/2022 Childcare Answer Date Recorded Childcare Unknown 04/27/2019 Employment Answer Date Recorded Employment Unknown 04/27/2019 Hunger Screening Answer Date Recorded Within the past 12 months we worried whether our food would run out before we got money to buy more. Never True 08/08/2022 Within the past 12 months th e food we bought just didn't last and we didn't have money to get more. Never True 08/08/2022 Purpose - Life Answer Date Recorded Purpose and direction in life Unknown Comments No Sex and Gender Information Value Date Recorded Sex Assigned at Not on file Legal Sex Female 8:21 AM EST Gender Identity Not on file Sexual Orientation Not on file documented as of this encounter Plan of Treatment Not on file documented as of this encounter Visit Diagnoses Not on filedocumented in this encounter Additional Health Concerns Assessment Noted Time PHQ-9 Depression Total Score: 10 08/08/ 023 5:16 PM EDT documented as of this encounter Care Teams Lottery Office Manager Relationship Specialty Start Date End Date Mely Castillo DO [address] [place] [address] PCP - General Family Medicine 07/02/19 documented as of this encounter
--- OUTSIDE RECORDS SUMMARY | 2024-10-26 12:31 | XMS_ITS | Encounter Summary ---
Author Organization [facility] Address [address] [facility] [place] [address] Care Team Providers Care Lens Cementer Name Role Phone Chhaya Ceballos MD Primary Care Provider [phone] Encounter Details Date Type Department Care Team (Late st Contact Info) Description 08/11/2023 Abstract [facility] OB [address] [place] [address] Lisa Montes LPN [address] [facility] [address] [place] [address] Social History Tobacco Use Types Packs/Day Years [...] 11/01/2025 9:00 AM EDT Office Visit [facility] OB [address] [place] [address] Guillaume Vasquez, [address] [facility] [address] [place] [place], [place] [id number] documented as of this encounter Visit Diagnoses Not on filedocumented in this encounter Care Teams Lens Cementer Relationship Specialty Start Date End Date Chhaya Ceballos MD PCP - General Family Medicine 03/04/23 documented as of this encounter
--- OUTSIDE RECORDS SUMMARY | 2024-10-26 12:31 | XMS_ITS | Encounter Summary ---
Author Organization [facility] Address [address] [facility] [place] [address] Care Team Providers Care Boating Safety Officer Name Role Phone Chhaya Ceballos MD Primary Care Provider [phone] Encounter Details Date Type Department Care Team (Late st Contact Info) Description 10/27/2023 Abstract [facility] OB [address] [place] [address] Guillaume Vasquez DO [facility] [address] [place], [place] [address] Social History Tobacco Use Types Packs/Day Years [...] 11/01/2025 9:00 AM EDT Office Visit [facility] OB [address] [place] [address] Guillaume Vasquez DO [address] [place], [facility] documented as of this encounter Visit Diagnoses Not on filedocumented in this encounter Care Teams Boating Safety Officer Relationship Specialty Start Date End Date Chhaya Ceballos MD PCP - General Family Medicine 03/04/23 documented as of this encounter
--- OUTSIDE RECORDS SUMMARY | 2024-10-26 12:31 | XMS_ITS | Encounter Summary ---
Author Organization [facility] Address [address] [place] [address] Care Team Providers Care Freight Clerk Name Role Phone Chhaya Ceballos MD Primary Care Provider [phone] Encounter Details Date Type Department Care Team (Late st Contact Info) Description 10/27/2023 Orders Only [facility] OB [address] [facility] [place] [address] Angela Weir MA [address] [facility] [place] [address] Social History Tobacco Use Types Packs/Day Years [...] EDT Office Visit [facility] OB [address] [facility] [place] [address] Guillaume Vasquez [address] [facility] [address] [place], [place] [address] documented as of this encounter Procedures Procedure Name Priority Date/Time Associated Diagnosis Comments PAP SMEAR Routine 10/21/2023 12:00 AM EDT documented in this encounter Results * Pap Smear (10/21/2023 12:00 AM EDT) Swab Cervical swab / Unknown us Guillaume Vasquez DO LAB CYTOLOGY ORDERABLES Final Re sult EXTERNAL LAB documented in this encounter Visit Diagnoses Not on filedocumented in this encounter Care Teams Freight Clerk Relationship Specialty Start Date End Date Chhaya Ceballos MD PCP - General Family Medicine 03/04/23 documented as of this encounter
--- OUTSIDE RECORDS SUMMARY | 2024-10-26 12:31 | XMS_ITS | Encounter Summary ---
Author Organization [facility] Address [facility] [place] [address] Care Team Providers Care Business Account Manager Name Role Phone Chhaya Ceballos Primary Care Provider + Emile Mesa MD Unavailable Guillaume Vasquez DO Unavailable [phone] Source Comments In the event this information is protected by the Federal Confidentiality of Alcohol and Drug AbusePatient Records regulations: The Federal rules restrict any use of the information to criminally investigate or prosecute any alcohol or drug abuse patient.[facility] Encounter Details Date Type Department Care Team (Late st Contact Info) Description 12/02/2022 Patient [facility] -[address] [place] [address] Provider, Ccf Medication Refill Past Due Social History Tobacco Use Types Packs/Day Years Used Date Smoking Tobacco: Former Cigarettes Passive Smoke Exposure: Past Smokeless Tobacco: Never Alcohol Use Standard Drinks/Week Comments Yes 0 (1 standard drink = 0.6 oz pur e alcohol) Area Deprivation Index Answer Date Umberto rded National Score (1-100), lower number is lower ri sk 88 05/14/2022 State Score (1-10), lower number is lower risk N ot on file 05/14/2022 Data from: https://www.neighborhoodatlas.[facility]/. Last address used for calculation 5 [address] 05/14/2022 Comments No Sex and Gender Information Value Date Recorded Sex Assigned at Not on file Legal Sex Female 1:05 PM EDT Gender Identity Not on file Sexual Orientation Not on file documented as of this encounter Plan of Treatment Not on file documented as of this encounter Visit Diagnoses Not on filedocumented in this encounter Care Teams Business Account Manager Relationship Specialty Start Date End Date Chhaya Ceballos DO [address] [facility] [place] [address] PCP - General Family Medicine 07/25/22 Emile Mesa MD [address] [place] [address] Gastroenterology 07/25/22 Guillaume Vasquez DO [address] [place] [address] [place] [address] Denture Packer 07/25/22 documented as of this encounter
--- OUTSIDE RECORDS SUMMARY | 2024-10-26 12:31 | XMS_ITS | Encounter Summary ---
Author Organization [facility] Address [address] [place] [address] Care Team Providers Care Websphere Process Server Developer Name Role Phone Chhaya Ceballos MD Primary Care Provider [phone] Encounter Details Date Type Department Care Team (Late st Contact Info) Description 02/09/2024 Clinisync Result Encounter [facility] External Department Unsolicited Guillaume Vasquez, DO [address] [place], [place] [id number] Social History Tobacco Use Types Packs/Day Years [...] [place] [address] Guillaume Vasquez DO [facility] [place] [address] documented as of this encounter Procedures Procedure Name Priority Date/Time Associated Diagnosis Comments US OB BPP W NON-STRESS 02/09/2024 7:33 AM EDT documented in this encounter Results * US OB BPP W NON-STRESS (02/09/2024 7:33 AM EDT) Anatomical Region Laterality Modality Other 02/09/2024 7:33 AM EDT Narrative 02/09/2024 7:36 [place] [address] Ultrasound Report Signed Patient: STACIE JEFFERS MR#: [id number] : 1990 Acct:[id number] Age/Sex: 33 / F ADM Date: 02/07/24 Loc: US Attending Dr: Guillaume Vasquez D.O. Ordering Physician: Guillaume Vasquez D.O. Date of Service: 02/07/24 Procedure(s): US OB BPP w non-stress Accession Number(s): [id number] cc: Guillaume Vasquez D.O.; Physician,Non-Staff M.DCristopher The [address] [address] Patient Name: STACIE JEFFERS MRN: [id number] date: 1990 Sex: F Assigned Patient Location: US Current Patient Location: Accession/Order Number: [id number] Exam Date: 2024 13:01 Report Date: 02/09/2024 07:33 At the request of: GUILLAUME VASQUEZ Procedure: US OB BPP w non-stress EXAMINATION: US OB BPP w non-stress HISTORY: Excessive growth O36.63x0 COMPARISON: No relevant comparison available. TECHNIQUE: Ultrasound biophysical profile was performed in the radiology department. non-reactive stress testing was performed by nursing staff in the birthing center. FINDINGS: BREATHING MOVEMENTS: 2 GROSS BODY MOVEMENTS: 2 TONE: 2 QUALITATIVE AMNIOTIC FLUID VOLUME: 2 PRESENTATION: CEPHALIC HEART RATE: 127.96 bpm AMNIOTIC FLUID VOLUME: 25.2 cm GESTATIONAL AGE: 35 weeks 2 days US/US OB BPP w non-stress IMPRESSION: Total biophysical profile score: 8 Electronically authenticated by: EMELIA STEWART Date: 02/09/2024 07:33 Dictated By: Emelia Stewart M.D. Signed By: 02/09/24735 DD/ 2 TD/TT: Director Sales And Marketing: Procedure Note Radiology, Radiologist, - 02/09/2024 [place] [address] Ultrasound Report Signed Patient: STACIE JEFFERS BMR#: [id number] : 1990Acct:[id number] Age/Sex: 33 / FADM Date: 02/07/24 Loc: US Attending Dr: Guillaume Vasquez D.O. Ordering Physician: Guillaume Vasquez D.O. Date of Service: 02/07/24 Procedure(s): US OB BPP w non-stress Accession Number(s): [id number] cc: Guillaume Vasquez D.O.; Physician,Non-Staff Asim The [place] [address] Patient Name: STACIE JEFFERS MRN: [facility]:[id number] date: 1990 Sex: F Assigned Patient Location: Current Patient Location: Accession/Order Number: [id number] Exam Date: 2024 13:01 Report Date: 02/09/2024 07:33 At the request of: GUILLAUME VASQUEZ Procedure: US OB BPP w non-stress EXAMINATION: US OB BPP w non-stress HISTORY: Excessive growth O36.63x0 COMPARISON: No relevant comparison available. TECHNIQUE: Ultrasound biophysical profile was performed in the radiology department. non-reactive stress testing was performed by nursingstaff in the birthing center. FINDINGS: BREATHING MOVEMENTS: 2 GROSS BODY MOVEMENTS: 2 TONE: 2 QUALITATIVE AMNIOTIC FLUID VOLUME: 2 PRESENTATION: CEPHALIC HEART RATE: 127.96 bpm AMNIOTIC FLUID VOLUME: 25.2 cm GESTATIONAL AGE: 35 weeks 2 days US/US OB BPP w non-stress IMPRESSION: Total biophysical profile score: 8 Electronically authenticated by: EMELIA STEWART Date: 02/09/2024 07:33 Dictated By: Emelia Stewart M.D. Signed By:02/09/24735 DD/ 2 TD/TT: Director Sales And Marketing: us Guillaume Pedro DO [facility] Final Result documented in this encounter Visit Diagnoses Not on filedocumented in this encounter Care Teams Websphere Process Server Developer Relationship Specialty Start Date End Date Chhaya Ceballos MD PCP - General Family Medicine 03/04/23 documented as of this encounter
--- OUTSIDE RECORDS SUMMARY | 2024-10-26 12:31 | XMS_ITS | Encounter Summary ---
Author Organization [facility] Address [address] [facility] [place] [address] Care Team Providers Care Supervisor Tan Room Name Role Phone Chhaya Ceballos MD Primary Care Provider [phone] Encounter Details Date Type Department Care Team (Late st Contact Info) Description 01/06/2024 Abstract [facility] OB [address] [place] [address] Guillaume Vasquez DO [facility] [address], [place] [address] Social History Tobacco Use Types Packs/Day Years [...] [facility] [address] [place] [address] Guillaume Vasquez DO [address], [facility] documented as of this encounter Visit Diagnoses Not on filedocumented in this encounter Care Teams Supervisor Tan Room Relationship Specialty Start Date End Date Chhaya Ceballos MD PCP - General Family Medicine 03/04/23 documented as of this encounter
--- OUTSIDE RECORDS SUMMARY | 2024-10-26 12:31 | XMS_ITS | Patient Health Record ---
Author Organization [employer] Address [address] [place] [address] Care Team Providers Care Official Court Reporter Name Role Phone Alondra Guevara Primary Care Provider Allergies No Known Allergies Reason For Referral No Information Medications Medication SIG (Take, Route, Frequency, Duration) Notes Start Date End Date Status Vitamin B12 Not-Taki ng Lisinopril 5 MG 1 tablet Orally once a day Not-Taking Biotin 5000 MCG 1 capsule Orally onc e a day Not-Taking Labetalol HCl Active Lexapro 20 MG 1 tablet Orally Once a day Not-Taking Strattera 40 MG 1 capsule in the morning Orally Once a day; Duration: 30 day(s) 11/07/2021 Not-Taking hydrOXYzine HCl 25 MG 1 tablet Orally th ree times a day (tid) as needed; Duration: 30 day(s) 10/16/2021 Not-Taking Adderall 5 MG 1 tablet in the afternoon Orally daily; Duration: 30 days 09/08/2024 Active Venlafaxine HCl ER 150 MG Take 1 capsule by mouth once a day Orally Once a day; Duration: 30 days Active Adderall XR 10 MG 1 capsule in the morning Orally Once a day; Duration: 30 days 10/05/2024 Active Levothyroxine Sodium 200 MCG 1 capsule Orally once a day Active Omeprazole 40 MG 1 capsule Orally onc e a day Active Social History Tobacco Use: Social History Observation Description Date Details (start date - stop date) Never Smoker NA - NA Tobacco Screen: Question Answer Notes Are you a: current smoker How often do you smoke cigarettes? every day How many cigarettes a day do you smoke? 5 or les s Alcohol Screening: Question Answer Notes Did you have a drink contain ing alcohol in the past year? Yes How often did you have a dri nk containing alcohol in the past year? Four or more times a week (4 points) How many drinks did you have on a typical day when you were drinking in the past year? 1 or 2 (0 points) Points 4 Interpretation Positive Depression Screening (PHQ-9): Question Answer Notes Little interest or pleasure in doing things More than half the days Feeling down, depressed, or hopeless Several day s Trouble falling or staying asleep, or sleeping t oo much Nearly every day Feeling tired or having little energy Nearly alex ry day Poor appetite or overeating Not at all Feeling bad about yourself-o r that you are a failure or have let yourself or your family down Not at all Trouble concentrating on thi ngs, such as reading the newspaper or watching television Nearly every day Moving or speaking so slowly that other people could have noticed. Or the opposite being so fidgety or restless that you have been moving around a lot more than usual Not at all Thoughts that you would be b kareen off , or of hurting yourself in some way Not at all Total Score 12 Intepretation Moderate Depression Tobacco Control (Standard) Question Answer Notes Tobacco use: Nonsmoker Problems Problem Type SNOMED Code ICD Code Onset Dates Problem Status W/U Status Risk Notes Problem Anxiety (07391398) Anxiety (F41.9) Active confirmed Problem Attention deficit hyperactivity disorder (883620430) ADHD (attention deficit hyperactivity disorder), combined type (F90.2) Active confirmed Problem Moderate recurrent major depression (65076606) Moderate episode of recurrent major depressive disorder (F33.1) Active confirmed Problem Inattention (54525298) Inattention (R41.840) Active confirmed Vital Signs Heart Rate 88 /min 09/08/2024 Blood pressure diastolic 95 mm Hg 09/08/2024 Oximetry 98 % 09/08/2024 Height 71.5 in 09/08/2024 Blood pressure systolic 151 mm Hg 09/08/2024 Weight 183.6 lbs 09/08/2024 BMI 25.25 kg/m2 09/08/2024 Encounters Encounter Location Date Provider Diagnosis [facility][1] [address] [place] [address] 09/01/2024 Alondra Guevara [facility] [address] [place] [address] 10/05/2024 Alondra Paola ADHD (attention defi cit hyperactivity disorder), combined type F90.2 [facility][1] [address] [place] [address] 10/18/2024 Alondra Paola [facility] [address] [place] [address] 07/28/2024 Alondra Paola ADHD (attention defi cit hyperactivity disorder), combined type F90.2 and Moderate episode of recurrent major depressive disorder F33.1 [facility] [address] [facility] [place] [address] 08/18/2024 Alondra Paola ADHD (attention defi cit hyperactivity disorder), combined type F90.2 [facility] [address] [facility] [place] [address] 09/08/2024 Alondra Paoal ADHD (attention defi cit hyperactivity disorder), combined type F90.2 Assessments Encounter Date Diagnosis (ICD Code) Assessment Notes Treatment Notes Treatment Clinical Notes Section Notes 07/28/2024 ADHD (attention deficit hyperactivity disorder), combined type (ICD-10 - F90.2) Patient meets the criteria for the diagnosis of Attention Deficit Hyperactivity Disorder. Recommended treatment is FDA approved stimulant medication for this age group. At this time, will start *. Discussed adverse effects from medication including HTN, tachycardia, insomnia, irritability, headache, or decreased appetite. OARRS reviewed, patient history consistent with report. The patient verbalizes understanding with all questions answered thoroughly and is in agreement with treatment plan. Currently at low risk for self harm. Denies ongoing feelings of hopelessness. Denies ongoing suicidal ideation, intent or plan in session. Follow up in 2 weeks. Tempus swab obtained today 08/18/2024 ADHD (attention deficit hyperactivity disorder), combined type (ICD-10 - F90.2) Stop Focalin start Vyvanse 30mg daily Patient meets the criteria for the diagnosis of Attention Deficit Hyperactivity Disorder. Recommended treatment is FDA approved stimulant medication for this age group. At this time, will start *Vyvanse 30mg daily. Discussed adverse effects from medication including HTN, tachycardia, insomnia, irritability, headache, or decreased appetite. OARRS reviewed, patient history consistent with report. The patient verbalizes understanding with all questions answered thoroughly and is in agreement with treatment plan. Currently at low risk for self harm. Denies ongoing feelings of hopelessness. Denies ongoing suicidal ideation, intent or plan in session. Follow up in 1 month & PRN. 09/08/2024 ADHD (attention deficit hyperactivity disorder), combined type (ICD-10 - F90.2) She has trialed many diferent stimulant with no sucess. Trial Adderal ER 10mg in am and IR 5mg in afternoon. Patient meets the criteria for the diagnosis of Attention Deficit Hyperactivity Disorder. Recommended treatment is FDA approved stimulant medication for this age group. At this time, will start *Adderall. Discussed adverse effects from medication including HTN, tachycardia, insomnia, irritability, headache, or decreased appetite. OARRS reviewed, patient history consistent with report. The patient verbalizes understanding with all questions answered thoroughly and is in agreement with treatment plan. Currently at low risk for self harm. Denies ongoing feelings of hopelessness. Denies ongoing suicidal ideation, intent or plan in session. Follow up in 1 month & PRN. 10/05/2024 ADHD (attention deficit hyperactivity disorder), combined type (ICD-10 - F90.2) 07/28/2024 Moderate episode of recurrent major depressive disorder (ICD-10 - F33.1) Mood has room for improvement, will increase *Effexor to 150mg daily. Discussed risks and side effects of medication. Patient denies SI/HI today. Follow up if mood does not improve. Patient verbalized understanding. Plan Of Treatment No Information Insurance Providers Payer Name Payer Address Payer Phone Subscriber Number Group Number Insured Name Patient Relationship to Insured Coverage Start Date Coverage End Date MEDICAL [facility] [address] [place] [phone] [id number] JESSEE MASTERSON Self - patient is the insured 2 Medical (General) History Medical History History ICD Code Anxiety Depression Hypothyroidism ADHD-combined type Surgical History Surgery Date(Month/Year) Ear tubes Hospitalization History Reason Date(Month/Year) Child
--- OUTSIDE RECORDS SUMMARY | 2024-10-26 12:31 | XMS_ITS | Encounter Summary ---
Author Organization [facility] Address [address] [facility] [place] [address] Care Team Providers Care Bread Supervisor Name Role Phone Chhaya Ceballos MD Primary Care Provider [phone] Encounter Details Date Type Department Care Team (Late st Contact Info) Description 07/24/2023 Clinisync Result Encounter [facility] External Department Unsolicited Guillaume Vasquez, [facility] [place] [address] Social History Tobacco Use Types Packs/Day Years [...] [facility] [address] [place] [address] Guillaume Vasquez DO [address] [place] [address] [place] [address] documented as of this encounter Procedures Procedure Name Priority Date/Time Associated Diagnosis Comments US OB TRANSVAGINAL 07/24/2023 2: 24 PM EDT documented in this encounter Results * US OB TRANSVAGINAL (07/24/2023 2:24 PM EDT) Anatomical Region Laterality Modality Other 07/24/2023 2:24 PM EDT Narrative 07/24/2023 2:26 [place] [address] Ultrasound Report Signed Patient: Stacie Almodovar MR#: [id number] : 1990 Acct:[id number] Age/Sex: 33 / F ADM Date: 07/24/23 Loc: [facility] Attending Dr: Guillaume Vasquez D.O. Ordering Physician: Guillaume Vasquez D.O. Date of Service: 07/24/23 Procedure(s): US OB transvaginal Accession Number(s): [id number] cc: Guillaume Vasquez D.O.; Physician,Non-Staff M.DCristopher [place] [address] Patient Name: STACIE ALMODOVAR MRN: [id number] date: 1990 Sex: F Assigned Patient Location: [facility] Current Patient Location: [facility] Accession/Order Number: [id number] Exam Date: 07/24/2023 13:12 Report Date: 07/24/2023 14:24 At the request of: GUILLAUME VASQUEZ Procedure: US OB transvaginal EXAMINATION: US OB transvaginal HISTORY: MISSED MENSES COMPARISON: No relevant comparison available. FINDINGS: GESTATIONAL SAC: Present and normal appearing. YOLK SAC: Present and normal appearing. POLE: Present and normal appearing. CARDIAC: Present. UTERUS: Normal size and appearance. OVARIES: Right: Normal. Left: Normal. CERVIX: 3.7 cm in length and closed. CUL-DE-SAC: Normal. OTHER: None. AGE BY LMP: 8 weeks 4 days MEHUL BY LMP: 02/29/2024 AGE BY US CRL: 7 weeks 0 days MEHUL BY US CRL: 03/11/2024 US/US OB transvaginal IMPRESSION: 1. Single live intrauterine . Electronically authenticated by: ANAND GIPSON Date: 07/24/2023 14:24 Dictated By: Anand Gipson M.D. Signed By: 07/24/23 1426 DD/ 23 TD/TT: Assistant Sales Director: Procedure Note Radiology, Radiologist, MD - 07/24/2023 [place] [address] Ultrasound Report Signed Patient: Stacie Almodovar BMR#: [id number] : 1990Acct:[id number] Age/Sex: 33 / FADM Date: 07/24/23 Loc: [facility] Attending Dr: Guillaume Vasquez D.O. Ordering Physician: Guillaume Vasquez D.O. Date of Service: 07/24/23 Procedure(s): US OB transvaginal Accession Number(s): [id number] cc: Guillaume Vasquez D.O.; Physician,Non-Staff Asim The [address] [address] Patient Name: STACIE ALMODOVAR MRN: [facility]:[id number] date: 1990 Sex: F Assigned Patient Location: [facility] Current [facility] Location: [facility] Accession/Order Number: [id number] Exam Date: 07/24/2023 13:12 Report Date: 07/24/2023 14:24 At the request of: GUILLAUME VASQUEZ Procedure: US OB transvaginal EXAMINATION: US OB transvaginal HISTORY: MISSED MENSES COMPARISON: No relevant comparison available. FINDINGS: GESTATIONAL SAC: Present and normal appearing. YOLK SAC: Present and normal appearing. POLE: Present and normal appearing. CARDIAC: Present. UTERUS: Normal size and appearance. OVARIES: Right: Normal. Left: Normal. CERVIX: 3.7 cm in length and closed. CUL-DE-SAC: Normal. OTHER: None. AGE BY LMP: 8 weeks 4 days MEHUL BY LMP: 02/29/2024 AGE BY US CRL: 7 weeks 0 days MEHUL BY US CRL: 03/11/2024 US/US OB transvaginal IMPRESSION: 1. Single live intrauterine . Electronically authenticated by: ANAND GIPSON Date: 07/24/2023 14:24 Dictated By: Anand Gipson M.D. Signed By:07/24/23 1426 DD/ 142 TD/TT: Assistant Sales Director: us Guillaume Pedro DO [facility] Final Result documented in this encounter Visit Diagnoses Not on filedocumented in this encounter Care Teams Bread Supervisor Relationship Specialty Start Date End Date Chhaya Ceballos MD PCP - General Family Medicine 03/04/23 documented as of this encounter
--- OUTSIDE RECORDS SUMMARY | 2024-10-26 12:32 | XMS_ITS | Encounter Summary ---
Author Organization [facility] Address [address] [place] [address] Care Team Providers Care Radiator Fitter Name Role Phone Chhaya Ceballos Primary Care Provider + Emile Mesa MD Unavailable Guillaume Vasquez DO Unavailable [phone] Source Comments In the event this information is protected by the Federal Confidentiality of Alcohol and Drug AbusePatient Records regulations: The Federal rules restrict any use of the information to criminally investigate or prosecute any alcohol or drug abuse patient.[facility] Encounter Details Date Type Department Care Team (Late st Contact Info) Description 12/22/2023 Patient [facility] -[address] [place] [address] Noemi Chavez RPh Medication Refill(s) Past Due Social History Tobacco Use Types [...] is lower risk 9 02/25/2023 Data from: https://www.neighborhoodatlas.medicine.[facility].edu/. Last address used for calculation 5 Vania [...] on filedocumented in this encounter Care Teams Radiator Fitter Relationship Specialty Start Date End Date Chhaya Ceballos DO [address] [place] [address] PCP - General Family Medicine 07/25/22 Emile Mesa MD [address] [place] [address] [place] [address] Gastroenterology 07/25/22 Guillaume Vasquez DO [address] [place] [address] [place] [address] Former Hand 07/25/22 documented as of this encounter
--- OUTSIDE RECORDS SUMMARY | 2024-10-26 12:32 | XMS_ITS | Clinical Summary ---
Author Organization [employer] [facility] Address [id number] [address] [place] [address] Care Team Providers Care Project Landscape Architect Name Role Phone Mely Castillo DO Primary Care Provider [phone] Allergies No known active allergies Medications * This document contains information received from the source organization and may not represent a complete record from that organization. 25/iron fum/folic/dha (-1 ORAL) Take 1 tablet by mouth daily. Active omeprazole (PriLOSEC) 40 mg capsule Take 1 capsule (40 mg total) by mouth in the morning. Active biotin 5 mg tablet Take by mouth. Activ e traZODone (DESYREL) 100 mg tabletIndication s:Insomnia, unspecified type Take 1 tablet (100 mg total) by mouth nightly as needed for sleep. 30 tablet 6 4 Active Additional Information Patient not taking.Reported on 10/16/2023 labetaloL (NORMODYNE) 100 mg tablet Take 1 tablet (100 mg total) by mouth in the morning and 1 tablet (100 mg total) before bedtime. Active levothyroxine (SYNTHROID, LEVOTHROID) 200 MCG tabletIndication s:Hypothyroidism affecting , antepartum Take 1 tablet (200 mcg total) by mouth in the morning. 30 tablet 2 4 Active levothyroxine (SYNTHROID, LEVOTHROID) 25 MCG tabletIndication s:Hypothyroidism affecting , antepartum Take 2pills M, W, F and 1 pill ,, Sa, Barrett 60 tablet 2 4 Active Active Problems Problem Noted Date Diagnosed Date Hypertension affecting 09/16/2023 Attention deficit hyperactiv ity disorder (ADHD), predominantly inattentive type 12/03/2022 Moderate episode of recurrent major depressive d isorder 08/08/2022 Generalized anxiety disorder 08/08/2022 Hypothyroidism affecting 07/02/2019 Family History Medical History Relation Name Comments Alcohol abuse Brother Depression Brother Drug abuse Brother Osteoarthritis Father Cancer Maternal Grandfather STOMACH Depression Mother Hypertension Mother Alzheimer's disease Paternal Grandfather Dementia Paternal Grandmother Relation Name Status Comments Brother Father Maternal Grandfather Mother Paternal Grandfather Paternal Grandmother Social History Tobacco Use Types Packs/Day Years Used Date Smoking Tobacco: Former Cigarettes Smokeless Tobacco: Never Tobacco Cessation:Counseling Given: Not Answered Alcohol Use Standard Drinks/Week Comments Not Currently 2 (1 standard drink = 0.6 oz pur e alcohol) on the weekends PHQ-2 Answer Date Recorded Total Score 10 08/08/2022 Childcare Answer Date Recorded Childcare Unknown 04/27/2019 Employment Answer Date Recorded Employment Unknown 04/27/2019 Hunger Screening Answer Date Recorded Within the past 12 months we worried whether our food would run out before we got money to buy more. Never True 11/13/2023 Within the past 12 months th e food we bought just didn't last and we didn't have money to get more. Never True 11/13/2023 Purpose - Life Answer Date Recorded Purpose and direction in life Unknown Comments No Sex and Gender Information Value Date Recorded Sex Assigned at Not on file Legal Sex Female 8:21 AM EST Gender Identity Not on file Sexual Orientation Not on file Last Filed Vital Signs Vital Sign Reading Time Taken Comments Blood Pressure 122/76 11/13/2023 11:34 AM EDT Pulse 102 08/08/2022 2:06 PM EDT Temperature - - Respiratory Rate - - Oxygen Saturation - - Inhaled Oxygen Concentration - - Weight 90.4 kg (199 lb 6.4 oz) 11/13/2023 11:34 AM EDT Height 185.4 cm (6' 0.99 ) 11/13/2023 11:34 AM E DT Body Mass Index 26.31 11/13/2023 11:34 AM EDT Plan of Treatment Health Maintenance Due Date Last Done Comments Adult BMI Follow Up Plan 2009 Depression Screening 08/09/2023 08/08/2022 COVID-19 Vaccine (3 - 2023-2 5 season) 2023 05/15/2020, 04/17/2020 Adult BMI Screening 11/12/2024 11/13/2023 Tobacco Screening 11/12/2024 11/13/2023 Influenza Vaccine 12/20/2024 01/28/2023, , 01/18/2021, Additional history exists Pap Smear 10/20/2026 10/21/2023 DTaP,Tdap and Td Vaccines (4 - Td or Tdap) 01/04/2030 01/05/2020, 12/07/2018, 1991 Medical Devices Not on file Insurance [employer] Care Teams Project Landscape Architect Relationship Specialty Start Date End Date Mely Castillo DO [address] [place] [address] PCP - General Family Medicine 07/02/19
--- OUTSIDE RECORDS SUMMARY | 2024-10-26 12:32 | XMS_ITS | Encounter Summary ---
Author Organization [facility] Address [address] [facility] [place] [address] Care Team Providers Care Peanut Salter Name Role Phone Chhaya Ceballos MD Primary Care Provider [phone] Encounter Details Date Type Department Care Team (Late st Contact Info) Description 11/21/2023 Abstract [facility] [address] [place] [address] Guillaume Vasquez DO [facility] [address], [place] [address] Social History Tobacco Use Types Packs/Day Years [...] 11/01/2025 9:00 AM EDT Office Visit [facility] [address] [place] [address] Guillaume Vasquez DO [address], [facility]11 documented as of this encounter Visit Diagnoses Not on filedocumented in this encounter Care Teams Peanut Salter Relationship Specialty Start Date End Date Chhaya Ceballos MD PCP - General Family Medicine 03/04/23 documented as of this encounter
--- OUTSIDE RECORDS SUMMARY | 2024-10-26 12:32 | XMS_ITS | Encounter Summary ---
Author Organization [facility] Address [address] [facility] [place] [address] Care Team Providers Care Emt Intermediate Name Role Phone Chhaya Ceballos MD Primary Care Provider [phone] Encounter Details Date Type Department Care Team (Late st Contact Info) Description 11/21/2023 Abstract [facility] [address] [place] [address] Guillaume Vasquez DO [facility] [address], [place] [address] Social History Tobacco Use Types Packs/Day Years [...] 11/01/2025 9:00 AM EDT Office Visit [facility] [address] [place] [address] Guillaume Vasquez DO [address], [facility]11 documented as of this encounter Visit Diagnoses Not on filedocumented in this encounter Care Teams Emt Intermediate Relationship Specialty Start Date End Date Chhaya Ceballos MD PCP - General Family Medicine 03/04/23 documented as of this encounter
--- OUTSIDE RECORDS SUMMARY | 2024-10-26 12:32 | XMS_ITS | Encounter Summary ---
Author Organization [facility] Address [address] [facility] [place] [address] Care Team Providers Care Healthcare Consultant Name Role Phone Chhaya Ceballos MD Primary Care Provider Encounter Details Date Type Department Care Team (Late st Contact Info) Description 07/23/2024 Abstract [facility] [address] [place] [address] Guillaume Vasquez DO [facility] [address], [place] [address] Social History Tobacco Use Types Packs/Day Years Used Date Smoking Tobacco: Former Cigarettes Smokeless Tobacco: Never Alcohol Use Standard Drinks/Week Comments Not Currently 0 (1 standard drink = 0.6 oz pure alcohol) caffeine: 2-3 cups per day coffee; soda Comments No Sex and Gender Information Value Date Recorded Sex Assigned at Not on file Legal Sex Female 6:52 PM EDT Gender Identity Not on file Sexual Orientation Not on file documented as of this encounter Plan of Treatment Upcoming Encounters Date Type Department Care Team (Late st Contact Info) Description 11/01/2025 9:00 AM EDT Office Visit [facility] [address] [place] [address] Guillaume Vasquez DO [address], [facility]11 documented as of this encounter Visit Diagnoses Not on filedocumented in this encounter Care Teams Healthcare Consultant Relationship Specialty Start Date End Date Chhaya Ceballos MD PCP - General Family Medicine 03/04/23 documented as of this encounter
--- OUTSIDE RECORDS SUMMARY | 2024-10-26 12:32 | XMS_ITS | Encounter Summary ---
Author Organization [facility] tem Address [facility] [id number] [address] [place] [address] Care Team Providers Care Resourcing Advisor Name Role Phone Mely Castillo DO Primary Care Provider [phone] Encounter Details Date Type Department Care Team (Late st Contact Info) Description 09/16/2023 Orders Only Maternal- Medicine at [facility] [address] [place] [id number] Ref Prov, [place] [address] Social History Tobacco Use Types Packs/Day Years [...] Purpose and direction in life Unknown Comments Yes Sex and Gender Information Value Date Recorded Sex Assigned at Not on file Legal Sex Female 8:21 AM EST Gender Identity Not on file Sexual Orientation Not on file documented as of this encounter Plan of Treatment Not on file documented as of this encounter Procedures Procedure Name Priority Date/Time Associated Diagnosis Comments US PREG LMTD 1 OR MORE FETUS Routine 09/16/2023 12:23 PM EDT documented in this encounter Results * Ultrasound limited 1 or more fetus (09/16/2023 12:23 PM EDT) Anatomical Region Laterality Modality OB-KNITTING DEMONSTRATOR Ultrasound us Not In System Ref Prov IMG US ORDERABLES Final R esult documented in this encounter Visit Diagnoses Not on filedocumented in this encounter Additional Health Concerns Assessment Noted Time PHQ-9 Depression Total Score: 10 08/08/ 023 5:16 PM EDT documented as of this encounter Care Teams Resourcing Advisor Relationship Specialty Start Date End Date Mely Castillo DO [address] [place] [address] PCP - General Family Medicine 07/02/19 documented as of this encounter
--- OUTSIDE RECORDS SUMMARY | 2024-10-26 12:32 | XMS_ITS | Encounter Summary ---
Author Organization [facility] Address [address] [facility] [place] [address] Care Team Providers Care Mixing Roll Operator Name Role Phone Chhaya Ceballos MD Primary Care Provider [phone] Encounter Details Date Type Department Care Team (Late Contact Info) Description 10/26/2024 Bamboo flowsheet [facility] [address] [place] [address] Guillaume Vasquez, DO [address], [place] [address] Social History Tobacco Use Types Packs/Day Years [...] Visit [facility] [address] [place] [address] Guillaume Vasquez, DO [address], [facility]11 documented as of this encounter Visit Diagnoses Not on filedocumented in this encounter Care Teams Mixing Roll Operator Relationship Specialty Start Date End Date Chhaya Ceballos MD PCP - General Family Medicine 03/04/23 documented as of this encounter
--- OUTSIDE RECORDS SUMMARY | 2024-10-26 12:32 | XMS_ITS | Clinical Summary ---
Author Organization [facility] Address [address] [place] [address] Care Team Providers Care Boat Diesel Motor Mechanic Name Role Phone LinJoebarbara Mathuryn Primary Care Provider + Emile Mesa MD Unavailable Guillaume Vasquez DO Unavailable [phone] Allergies No known active allergies Medications mupirocin (BACTROBAN) 2 % ointment Apply to affected area three times a day 22 g 2 8:35 AM EDT 09/12/19 22 Active omeprazole (PRILOSEC) 40 mg capsule Take 1 capsule by mouth once daily in the morning, wait 20-30 minutes before eating or taking other medications 90 capsule 1 2 2:57 PM EST 01/01/20 22 Active BIOTIN ORAL Take by mouth. Act thuan PNV no.95/ferrous fum/folic ac ( ORAL) Take by mouth. Active omeprazole (PRILOSEC) 20 mg capsule Take 1 tablet by mouth once daily in the morning, 20-30 minutes before eating or taking other medications 30 capsule 2 3 11:45 AM EDT 05/14/19 23 Active lisinopril (ZESTRIL) 40 mg tablet Take 1 tablet by mouth once daily. 90 tablet 3 3 11:00 AM EST 11/14/19 23 Active omeprazole (PRILOSEC) 20 mg capsule Take 1 capsule by mouth twice daily. 180 capsule 1 3 2:52 PM EDT 11/14/19 23 Active levothyroxine (SYNTHROID) 200 mcg tablet Take 1 tablet by mouth once daily. 90 tablet 3 11:00 AM EST 11/19/19 23 Active traZODone (DESYREL) 50 mg tablet Take 1 tablet (50 mg total) by mouth at bedtime as needed for sleep. 30 tablet 6 3 3:51 PM EST 01/30/20 23 Active amphetamine-dextro amphetamine XR (ADDERALL XR) 20 mg capsule Take 1 capsule (20 mg total) by mouth in the morning for 15 days. Max Daily Amount: 20 mg. 15 capsule 3 8:31 AM EDT 02/12/20 23 Active amphetamine-dextro amphetamine XR (ADDERALL XR) 30 mg capsule Take 1 capsule (30 mg total) by mouth in the morning for 15 days. Max Daily Amount: 30 mg. 15 capsule 3 10:45 AM EST 02/27/20 23 Active traZODone (DESYREL) 100 mg tablet Take 1 tablet (100 mg total) by mouth nightly as needed for sleep. 30 tablet 3 3 10:45 AM EST 02/27/20 23 Active doxycycline hyclate (VIBRAMYCIN) 100 mg capsule Take 1 capsule (100 mg) by mouth in the morning and 1 capsule (100 mg) before bedtime. Do all this for 7 days. Take with at least 8 ounces (large glass) of water, do not lie down for 30 minutes after. 14 capsule 3 3:59 PM EST 03/04/20 23 Active Desogestrel-Ethiny l Estradiol 0.15-0.03 mg per tablet Take 1 tablet by mouth once daily. 90 tablet 4 11:54 AM EST 05/29/19 24 Active traZODone (DESYREL) 100 mg tablet Take 1 tablet (100 mg total) by mouth nightly as needed for sleep. 30 tablet 6 4 3:45 PM EDT 06/04/19 24 Active lisinopril (ZESTRIL) 40 mg tablet Take 1 tablet by mouth once daily. 90 tablet 1 4 8:58 AM EDT 07/15/19 24 Active labetalol (TRANDATE) 100 mg tablet Take 1 tablet (100 mg) by mouth in the morning and 1 tablet (100 mg) before bedtime. 60 tablet 11 5 3:19 PM EST 07/24/19 24 Active ondansetron orally disintegrating (ZOFRAN ODT) 4 mg disintegrating tablet Take 1 tablet (4 mg) by mouth every 6 (six) hours if needed for nausea or vomiting for up to 14 days 54 tablet 4 9:47 AM EDT 07/24/19 24 Active omeprazole (PRILOSEC) 20 mg capsule Take 1 capsule (20 mg) by mouth at bedtime Do not crush or chew. 30 capsule 11 4 8:52 AM EDT 07/24/19 24 Active metroNIDAZOLE (FLAGYL) 500 mg tablet Take 1 tablet (500 mg) by mouth in the morning and 1 tablet (500 mg) before bedtime. Do all this for 7 days. Do not drink alcohol while taking this medication. 14 tablet 4 1:11 PM EDT 10/22/19 24 Active terconazole (TERAZOL 7) 0.4 % vaginal cream Insert 1 applicator into the vagina at bedtime for 7 days 45 g 10/22/19 24 Active levothyroxine (SYNTHROID) 25 mcg tablet Take 1 tablet (25 mcg) by mouth in the morning. Take before meals. 30 tablet 11 4 3:32 PM EST 11/03/19 24 Active levothyroxine (SYNTHROID) 25 mcg tablet Take 2 tablets by mouth on Mon, Wed, Fri and 1 tablet by mouth on Tu, Th , Sat, and Sun 60 tablet 2 4 2:47 PM EDT 11/13/19 24 Active Polysaccharide Iron Complex (PRO FE) 180 mg iron cap Take 1 capsule by mouth once daily 90 capsule 4 11:14 AM EDT 01/27/20 24 Active docusate sodium (COLACE) 100 mg capsule Take 1 capsule (100 mg) by mouth 2 (two) times a day as needed for constipation 30 capsule 5 4 11:14 AM EDT 01/27/20 24 Active magnesium oxide (MAG-OX) 400 mg (241.3 mg magnesium) tablet Take 1 tablet (400 mg) by mouth Daily 90 tablet 4 11:14 AM EDT 01/27/20 24 Active venlafaxine ER (EFFEXOR XR) 37.5 mg 24 hr capsule Take 1 capsule (37.5 mg) by mouth Daily Do not crush or chew. 30 capsule 11 4 9:22 AM EST 03/08/20 24 Active levothyroxine (SYNTHROID) 200 mcg tablet Take 1 tablet (200 mcg) by mouth in the morning. 30 tablet 11 5 11:34 AM EDT 03/09/20 24 Active venlafaxine ER (EFFEXOR XR) 75 mg 24 hr capsule Take 2 capsules (150 mg) by mouth Daily Do not crush or chew. 60 capsule 11 5 3:51 PM EDT 04/06/20 24 Active omeprazole (PRILOSEC) 40 mg capsule Take 1 capsule by mouth once daily. 30 capsule 11 5 11:34 AM EDT 08/26/19 25 Active Active Problems Problem Noted Date Diagnosed Date Greater trochanteric bursitis of right hip 02/25 Chronic low back pain 02/25/2023 Chronic pain of right hip 02/25/2023 Immunizations Immunization Administration Dates Next Due influenza (IIV3) vaccine, tr ivalent, PF (AFLURIA, FLUARIX, FLULAVAL, FLUVIRIN, FLUZONE) 02/19/2024 influenza vaccine, unspecified formulation 01/28,02/14/2022,01/18/2021 Family History Medical History Relation Comments Pancreatic Cancer Maternal Grandfather Dementia Maternal Grandmother Anxiety disorder Mother Relation Status Comments Father Alive Maternal Grandfather Maternal Grandmother Alive Mother Alive Social History Tobacco Use Types Packs/Day Years Used Date Smoking Tobacco: Some Days Cigarettes Passive Smoke Exposure: Past Smokeless Tobacco: Never Tobacco Cessation:Ready to Q uit: Not Asked; Counseling Given: Not Answered Alcohol Use Standard Drinks/Week Comments Yes 0 (1 standard drink = 0.6 oz pur e alcohol) PHQ-2 Answer Date Recorded PHQ-2 score 2 02/25/2023 Area Deprivation Index Answer Date Umberto rded National Score (1-100), lower number is lower ri sk 91 02/25/2023 State Score (1-10), lower number is lower risk 9 02/25/2023 Data from: https://www.neighborhoodatlas.medicine.[facility]/. Last address used for calculation [address] 02/25/2023 Comments No Sex and Gender Information Value Date Recorded Sex Assigned at Not on file Legal Sex Female 1:05 PM EDT Gender Identity Not on file Sexual Orientation Not on file Last Filed Vital Signs Vital Sign Reading Time Taken Comments Blood Pressure 145/93 02/11/2022 3:15 PM EDT Pulse 82 02/11/2022 3:15 PM EDT Temperature 36.6 C (97.8 F) 02/11/2022 3:15 PM EDT Respiratory Rate 16 02/11/2022 3:15 PM EDT Oxygen Saturation 99% 02/11/2022 3:15 PM EDT Inhaled Oxygen Concentration - - Weight 76.7 kg (169 lb 0.3 oz) 02/25/2023 1:16 P M EST Height 185.4 cm (6' 1 ) 02/25/2023 1:16 PM EST Body Mass Index 22.3 02/25/2023 1:16 PM EST Plan of Treatment Health Maintenance Due Date Last Done Comments Anxiety Screening 2009 Depression Screening 2009 Pneumococcal Vaccine (1 of 2 - PCV) 2010 Cervical Cancer Screening 02/08/2012 Covid-19 Vaccine (3 - 2023-2 5 season) 2023 05/15/2020, 04/17/2020 Influenza Vaccine (#1) 2024 , 01/28/2023, 02/14/2022, Additional history exists DTaP,Tdap,Td Vaccine (4 - Td or Tdap) 01/04/2030 01/05/2020, 12/07/2018, 1991 Hepatitis B Vaccine Completed 10/30/2018, 08/21/2018, 05/13/2018 HIV Screening Completed 08/08/2023, 07/11/2022 Hepatitis C Screening Completed 08/08/2023 Procedures Procedure Name Priority Date/Time Associated Diagnosis Comments HIV 1/2 COMBO WITH REFLEX TO DIFFERENTIATION Routine 08/08/2023 1:07 PM EDT Missed periods HEPATITIS C ANTIBODY IA WITH CONFIRMATION Routine 08/08/2023 1:07 PM EDT Missed periods from Last 3 Months or Most Recently Relevant to Health Maintenance Results * HIV 1/2 COMBO WITH REFLEX TO DIFFERENTIATION (08/08/2023 1:07 PM EDT) HIV 12 Combo (Ag/Ab) Nonreactive Nonreactive 08/10/2023 11:33 AM EDT [facility] HIV-1/2 AB (Confirmatory) 08/10/2023 11:33 AM EDT [facility] Comment:Test not indicated. HIV Interpretation 08/10/2023 11:33 AM EDT [facility] Comment: No evidence of HIV-1 or HIV-2 infection. Should recent infection be suspected, repeat testing may be considered 2-3 weeks after this draw. [place] Rev. Code 3701.243(E): This information has been disclosed to you from confidential records protected from disclosure by state law. You shall make no further disclosure of this information without the specific, written, and informed release of the individual to whom it pertains or as otherwise permitted by state law. A general authorization for the release of medical or other information is not sufficient for the purpose of the release of HIV test results or diagnoses. Blood BLOOD SPECIMEN / Unknown Venipuncture / Unknown 08/08/2023 1:07 PM EDT 08/08/2023 1:07 PM EDT Guillaume Vasquez DO LABORATORY Final Result [facility] [address] [place] [address] * HEPATITIS C ANTIBODY IA WITH CONFIRMATION (08/08/2023 1:07 PM EDT) Hep C Antibody IA Negative Negative 08/10/2023 1:39 PM EDT [facility] Comment:The result suggests no evidence of active infection with Hepatitis C virus. Should recent infection be suspected, repeat testing may be considered 4-6 weeks after this draw. Blood BLOOD SPECIMEN / Unknown Venipuncture / Unknown 08/08/2023 1:07 PM EDT 08/08/2023 1:07 PM EDT Guillaume Vasquez DO LABORATORY Final Result [facility] [address] [facility] [address] [place] [address], from Last 3 Months or Most Recently Relevant to Health Maintenance Insurance [employer] P[employer] Care Teams Boat Diesel Motor Mechanic Relationship Specialty Start Date End Date Chhaya Ceballos DO [address] [place] [address] PCP - General Family Medicine 07/25/22 Emile Mesa MD [address] [place] [id number] Gastroenterology 07/25/22 Guillaume Vasquez DO [address] [place], [place] [address] [place] [address] Global Lead 07/25/22
--- OUTSIDE RECORDS SUMMARY | 2024-10-26 12:32 | XMS_ITS | Encounter Summary ---
Author Organization [facility] Address [address] [place] [address] Care Team Providers Care Machine Joiner Cementer Name Role Phone Chhaya Ceballos MD Primary Care Provider [phone] Encounter Details Date Type Department Care Team (Late st Contact Info) Description 02/16/2024 Clinisync Result Encounter [facility] External Department Unsolicited Guillaume Vasquez, DO [address] [place], [place] [id number] Social History Tobacco Use Types Packs/Day Years [...] Visit [facility] BCP OB [address] [place] [address] Guillaume Vasquez DO [facility] [place] [address] documented as of this encounter Procedures Procedure Name Priority Date/Time Associated Diagnosis Comments US OB BPP W NON-STRESS 02/16/2024 4:32 AM EDT documented in this encounter Results * US OB BPP W NON-STRESS (02/16/2024 4:32 AM EDT) Anatomical Region Laterality Modality Other 02/16/2024 4:32 AM EDT Narrative 02/16/2024 4:35 [place] [address] Ultrasound Report Signed Patient: STACIE JEFFERS MR#: [id number] : 1990 Acct:[id number] Age/Sex: 34 / F ADM Date: 02/14/24 Loc: US Attending Dr: Guillaume Vasquez D.O. Ordering Physician: Guillaume Vasquez D.O. Date of Service: 02/14/24 Procedure(s): US OB BPP w non-stress Accession Number(s): [id number] cc: Guillaume Vasquez D.O.; Physician,Non-Staff M.DCristopher The [place] [address] Patient Name: STACIE JEFFERS MRN: [facility]:[id number] date: 1990 Sex: F Assigned Patient Location: [facility] Current Patient Location: Accession/Order Number: [id number] Exam Date: 02/14/2024 13:15 Report Date: 02/16/2024 04:32 At the request of: GUILLAUME VASQUEZ Procedure: US OB BPP w non-stress EXAMINATION: US OB BPP w non-stress HISTORY:EXCESSIVE GROWTH 036.63X0 COMPARISON: Ultrasound OB biophysical 2024 TECHNIQUE: Ultrasound biophysical profile was performed in the radiology department. BREATHING MOVEMENTS: 2 GROSS BODY MOVEMENTS: 2 TONE: 2 QUALITATIVE AMNIOTIC FLUID VOLUME: 2 PRESENTATION: CEPHALIC HEART RATE: 115.88 bpm AMNIOTIC FLUID VOLUME: 25.30 cm GESTATIONAL AGE: 36 weeks 2 days US/US OB BPP w non-stress IMPRESSION: Total biophysical profile score: 8 Electronically authenticated by: ANAND GIPSON Date: 02/16/2024 04:32 Dictated By: Anand Gipson M.D. Signed By: 02/16/24434 DD/ 1 TD/TT: Plastic Surgeon: Procedure Note Radiology, Radiologist, - 02/16/2024 [place] [address] Ultrasound Report Signed Patient: STACIE JEFFERS BMR#: [id number] : 1990Acct:[id number] Age/Sex: 34 / FADM Date: 02/14/24 Loc: US Attending Dr: Guillaume Vasquez D.O. Ordering Physician: Guillaume Vasquez D.O. Date of Service: 02/14/24 Procedure(s): US OB BPP w non-stress Accession Number(s): [id number] cc: Guillaume Vasquez D.O.; Physician,Non-Staff Asim The [place] [id number] Patient Name: STACIE JEFFERS MRN: [facility]:[id number] date: 1990 Sex: F Assigned Patient Location: [facility] Current Patient Location: Accession/Order Number: [id number] Exam Date: 02/14/2024 13:15 Report Date: 02/16/2024 04:32 At the request of: GUILLAUME VASQUEZ Procedure: US OB BPP w non-stress EXAMINATION: US OB BPP w non-stress HISTORY:EXCESSIVE GROWTH 036.63X0 COMPARISON: Ultrasound OB biophysical 2024 TECHNIQUE: Ultrasound biophysical profile was performed in the radiology department. BREATHING MOVEMENTS: 2 GROSS BODY MOVEMENTS: 2 TONE: 2 QUALITATIVE AMNIOTIC FLUID VOLUME: 2 PRESENTATION: CEPHALIC HEART RATE: 115.88 bpm AMNIOTIC FLUID VOLUME: 25.30 cm GESTATIONAL AGE: 36 weeks 2 days US/US OB BPP w non-stress IMPRESSION: Total biophysical profile score: 8 Electronically authenticated by: ANAND GIPSON Date: 02/16/2024 04:32 Dictated By: Anand Gipson M.D. Signed By:02/16/24 0435 DD/ TD/TT: Plastic Surgeon: us Guillaume Pedro DO [facility] Final Result documented in this encounter Visit Diagnoses Not on filedocumented in this encounter Care Teams Machine Joiner Cementer Relationship Specialty Start Date End Date Chhaya Ceballos MD PCP - General Family Medicine 03/04/23 documented as of this encounter
--- OUTSIDE RECORDS SUMMARY | 2024-10-26 12:32 | XMS_ITS | Encounter Summary ---
Author Organization [facility] Address [address] [place] [address] Care Team Providers Care Supervisor Sign Shop Name Role Phone Chhaya Ceballos MD Primary Care Provider [phone] Encounter Details Date Type Department Care Team (Late st Contact Info) Description 02/22/2024 Clinisync Result Encounter [facility] External Department Unsolicited Guillaume Vasquez, DO [address] [place], [place] [id number] Social History Tobacco Use Types Packs/Day Years [...] Visit [facility] BCP OB [address] [place] [address] Guillaume Vasquez DO [facility] [place] [address] documented as of this encounter Procedures Procedure Name Priority Date/Time Associated Diagnosis Comments US OB BPP W NON-STRESS 02/22/2024 8:40 AM EST documented in this encounter Results * US OB BPP W NON-STRESS (02/22/2024 8:40 AM EST) Anatomical Region Laterality Modality Other 02/22/2024 8:40 AM EST Narrative 02/22/2024 8:42 [place] [address] Ultrasound Report Signed Patient: STACIE JEFFERS MR#: [id number] : 1990 Acct:[id number] Age/Sex: 34 / F ADM Date: 02/21/24 Loc: FBCO Attending Dr: Guillaume Vasquez D.O. Ordering Physician: Guillaume Vasquez D.O. Date of Service: 02/21/24 Procedure(s): US OB BPP w non-stress Accession Number(s): [id number] cc: Guillaume Vasquez D.O.; Physician,Non-Staff M.DCristopher The [place] [address] Patient Name: STACIE JEFFERS MRN: [facility]:[id number] date: 1990 Sex: F Assigned Patient Location: [facility] Current Patient Location: Accession/Order Number: [id number] Exam Date: 02/21/2024 13:06 Report Date: 02/22/2024 08:40 At the request of: GUILLAUME VASQUEZ Procedure: US OB BPP w non-stress EXAMINATION: US OB BPP w non-stress HISTORY:Excessive growth COMPARISON: Ultrasound OB biophysical 02/14/2024 TECHNIQUE: Ultrasound biophysical profile was performed in the radiology department. BREATHING MOVEMENTS: 2 GROSS BODY MOVEMENTS: 2 TONE: 2 QUALITATIVE AMNIOTIC FLUID VOLUME: 2 PRESENTATION: CEPHALIC HEART RATE: 160.71 bpm AMNIOTIC FLUID VOLUME: 16.29 cm GESTATIONAL AGE: 37 weeks 2 days US/US OB BPP w non-stress IMPRESSION: Total biophysical profile score: 8 Electronically authenticated by: ANAND GIPSON Date: 02/22/2024 08:40 Dictated By: Anand Gipson M.D. Signed By: 02/22/2442 DD/ 9 TD/TT: Sales Branch Manager: Procedure Note Radiology, Radiologist, - 02/22/2024 [place] [address] Ultrasound Report Signed Patient: STACIE JEFFERS BMR#: [id number] : 1990Acct:[id number] Age/Sex: 34 / FADM Date: 02/21/24 Loc: [facility]BCO Attending Dr: Guillaume Vasquez D.O. Ordering Physician: Guillaume Vasquez D.O. Date of Service: 02/21/24 Procedure(s): US OB BPP w non-stress Accession Number(s): [id number] cc: Guillaume Vasquez D.O.; Physician,Non-Staff Asim The [place] [id number] Patient Name: STACIE JEFFERS MRN: [facility]:[id number] date: 1990 Sex: F Assigned Patient Location: [facility] Current Patient Location: Accession/Order Number: [id number] Exam Date: 02/21/2024 13:06 Report Date: 02/22/2024 08:40 At the request of: GUILLAUME VASQUEZ Procedure: US OB BPP w non-stress EXAMINATION: US OB BPP w non-stress HISTORY:Excessive growth COMPARISON: Ultrasound OB biophysical 02/14/2024 TECHNIQUE: Ultrasound biophysical profile was performed in the radiology department. BREATHING MOVEMENTS: 2 GROSS BODY MOVEMENTS: 2 TONE: 2 QUALITATIVE AMNIOTIC FLUID VOLUME: 2 PRESENTATION: CEPHALIC HEART RATE: 160.71 bpm AMNIOTIC FLUID VOLUME: 16.29 cm GESTATIONAL AGE: 37 weeks 2 days US/US OB BPP w non-stress IMPRESSION: Total biophysical profile score: 8 Electronically authenticated by: ANAND GIPSON Date: 02/22/2024 08:40 Dictated By: Anand Gipson M.D. Signed By:02/22/2442 DD/ TD/TT: Sales Branch Manager: us Guillaume Pedro DO [facility] Final Result documented in this encounter Visit Diagnoses Not on filedocumented in this encounter Care Teams Supervisor Sign Shop Relationship Specialty Start Date End Date Chhaya Ceballos MD PCP - General Family Medicine 03/04/23 documented as of this encounter
--- OUTSIDE RECORDS SUMMARY | 2024-10-26 12:32 | XMS_ITS | Encounter Summary ---
Author Organization [facility] Address [address] [facility] [place] [address] Care Team Providers Care Raw Material Planner Name Role Phone Chhaya Ceballos MD Primary Care Provider [phone] Encounter Details Date Type Department Care Team (Late st Contact Info) Description 02/23/2024 Abstract [facility] OB [address] [place] [address] Guillaume Vasquez DO [facility] [address] [place], [place] [address] Social History Tobacco Use Types Packs/Day Years [...] 11/01/2025 9:00 AM EDT Office Visit [facility] OB [address] [place] [address] Guillaume Vasquez DO [address] [place], [facility]11 documented as of this encounter Visit Diagnoses Not on filedocumented in this encounter Care Teams Raw Material Planner Relationship Specialty Start Date End Date Chhaya Ceballos MD PCP - General Family Medicine 03/04/23 documented as of this encounter
--- OUTSIDE RECORDS SUMMARY | 2024-10-26 12:32 | XMS_ITS | Encounter Summary ---
Author Organization [facility] Address [address] [place] [address] Care Team Providers Care Reimbursement Representative Name Role Phone Chhaya Ceballos MD Primary Care Provider [phone] Encounter Details Date Type Department Care Team (Late st Contact Info) Description 01/25/2024 Clinisync Result Encounter [facility] External Department Unsolicited Guillaume Vasquez, DO [address] [place], [place] [address] Social History Tobacco Use Types Packs/Day Years [...] Visit [facility] BCP OB [address] [place] [address] Guillaume Vasquez DO [place] [address] documented as of this encounter Procedures Procedure Name Priority Date/Time Associated Diagnosis Comments US OB BPP W NON-STRESS 01/25/2024 6:17 AM EDT documented in this encounter Results * US OB BPP W NON-STRESS (01/25/2024 6:17 AM EDT) Anatomical Region Laterality Modality Other 01/25/2024 6:17 AM EDT Narrative 01/25/2024 6:20 [place] [address] Ultrasound Report Signed Patient: STACIE JEFFERS MR#: [id number] : 1990 Acct:[id number] Age/Sex: 33 / F ADM Date: 01/24/24 Loc: US Attending Dr: Guillaume Vasquez D.O. Ordering Physician: Guillaume Vasquez D.O. Date of Service: 01/24/24 Procedure(s): US OB BPP w non-stress Accession Number(s): [id number] cc: Guillaume Vasquez D.O.; Physician,Non-Staff M.DCristopher The [place] [address] Patient Name: STACIE JEFFERS MRN: [id number] date: 1990 Sex: F Assigned Patient Location: US Current Patient Location: US Accession/Order Number: [id number] Exam Date: 01/24/2024 11:40 Report Date: 01/25/2024 06:17 At the request of: GUILLAUME VASQUEZ Procedure: US OB BPP w non-stress EXAMINATION: US OB BPP w non-stress HISTORY:LARGE FOR GESTATIONAL AGE COMPARISON: Ultrasound OB biophysical 01/09/2024 TECHNIQUE: Ultrasound biophysical profile was performed in the radiology department. BREATHING MOVEMENTS: 0 GROSS BODY MOVEMENTS: 2 TONE: 2 QUALITATIVE AMNIOTIC FLUID VOLUME: 2 PRESENTATION: CEPHALIC HEART RATE: 125.58 bpm AMNIOTIC FLUID VOLUME: 24.15 cm GESTATIONAL AGE: 33 weeks 2 days US/US OB BPP w non-stress IMPRESSION: 1. Total biophysical profile score: 6 2. Amniotic fluid volume is at 95th percentile. [facility] notified of these findings at time of imaging. Electronically authenticated by: ANAND GIPSON Date: 01/25/2024 06:17 Dictated By: Anand Gipson M.D. Signed By: 01/25/24619 DD/ 6 TD/TT: Teacher Advisor: Procedure Note Radiology, Radiologist, - 01/25/2024 [place] [address] Ultrasound Report Signed Patient: STACIE JEFFERS BMR#: [id number] : 1990Acct:[id number] Age/Sex: 33 / FADM Date: 01/24/24 Loc: US Attending Dr: Guillaume Vasquez D.O. Ordering Physician: Guillaume Vasquez D.O. Date of Service: 01/24/24 Procedure(s): US OB BPP w non-stress Accession Number(s): [id number] cc: Guillaume Vasquez D.O.; Physician,Non-Staff Asim The [place] [id number] Patient Name: STACIE JEFFERS MRN: [facility]:[id number] date: 1990 Sex: F Assigned Patient Location: US Current Patient Location: Accession/Order Number: [id number] Exam Date: 01/24/2024 11:40 Report Date: 01/25/2024 06:17 At the request of: GUILLAUME VASQUEZ Procedure: US OB BPP w non-stress EXAMINATION: US OB BPP w non-stress HISTORY:LARGE FOR GESTATIONAL AGE COMPARISON: Ultrasound OB biophysical 01/09/2024 TECHNIQUE: Ultrasound biophysical profile was performed in the radiology department. BREATHING MOVEMENTS: 0 GROSS BODY MOVEMENTS: 2 TONE: 2 QUALITATIVE AMNIOTIC FLUID VOLUME: 2 PRESENTATION: CEPHALIC HEART RATE: 125.58 bpm AMNIOTIC FLUID VOLUME: 24.15 cm GESTATIONAL AGE: 33 weeks 2 days US/US OB BPP w non-stress IMPRESSION: 1. Total biophysical profile score: 6 2. Amniotic fluid volume is at 95th percentile. [facility] notified of these findings at time of imaging. Electronically authenticated by: ANAND GIPSON Date: 01/25/2024 06:17 Dictated By: Anand Gipson M.D. Signed By:01/25/24619 DD/ 6 TD/TT: Teacher Advisor: us Guillaume Pedro DO [facility] Final Result documented in this encounter Visit Diagnoses Not on filedocumented in this encounter Care Teams Reimbursement Representative Relationship Specialty Start Date End Date Chhaya Ceballos MD PCP - General Family Medicine 03/04/23 documented as of this encounter
--- OUTSIDE RECORDS SUMMARY | 2024-10-26 12:32 | XMS_ITS | Encounter Summary ---
Author Organization [facility] Address [address] [place] [address] Care Team Providers Care Physician Office Specialist Name Role Phone Chhaya Ceballos Primary Care Provider + Emile Mesa MD Unavailable Guillaume Vasquez DO Unavailable [phone] Source Comments In the event this information is protected by the Federal Confidentiality of Alcohol and Drug AbusePatient Records regulations: The Federal rules restrict any use of the information to criminally investigate or prosecute any alcohol or drug abuse patient.[facility] Encounter Details Date Type Department Care Team (Late st Contact Info) Description 09/08/2023 Patient [facility] -[address] [place] [address] Noemi Chavez RPh Medication Refill Past Due Social History Tobacco [...] is lower risk 9 02/25/2023 Data from: https://www.neighborhoodatlas.medicine.[facility].edu/. Last address used for calculation [address] [...] on filedocumented in this encounter Care Teams Physician Office Specialist Relationship Specialty Start Date End Date Chhaya Ceballos DO [address] [facility] [place] [address] PCP - General Family Medicine 07/25/22 Emile Mesa MD [address] [place] [address] [place] [address] Gastroenterology 07/25/22 Guillaume Vasquez DO [address] [place] [address] [place] [address] Rouge Mixer 07/25/22 documented as of this encounter
--- OUTSIDE RECORDS SUMMARY | 2024-10-26 12:32 | XMS_ITS | Encounter Summary ---
Author Organization [facility] Address [address] [facility] [place] [address] Care Team Providers Care Associate Professor Of Medicine Name Role Phone Chhaya Ceballos MD Primary Care Provider [phone] Encounter Details Date Type Department Care Team (Late st Contact Info) Description 11/14/2023 Abstract [facility] OB [address] [facility] [place] [address] Jeanne Alvarado LPN [address] [place] [id number] Social History Tobacco Use Types Packs/Day Years [...] EDT Office Visit [facility] BCP OB [address] [facility] [place] [address] Guillaume Vasquez, DO [address] [facility] [address] [place], [facility]11 documented as of this encounter Visit Diagnoses Not on filedocumented in this encounter Care Teams Associate Professor Of Medicine Relationship Specialty Start Date End Date Chhaya Ceballos MD PCP - General Family Medicine 03/04/23 documented as of this encounter
--- OUTSIDE RECORDS SUMMARY | 2024-10-26 12:32 | XMS_ITS | Encounter Summary ---
Author Organization [facility] Address [address] [facility] [place] [address] Care Team Providers Care Medical Corps Officer Name Role Phone Chhaya Ceballos MD Primary Care Provider [phone] Encounter Details Date Type Department Care Team (Late st Contact Info) Description 02/17/2024 Abstract [facility] OB [address] [place] [address] Guillaume Vasquez DO [facility] [address], [place] [address] Social History Tobacco Use Types Packs/Day Years [...] 11/01/2025 9:00 AM EDT Office Visit [facility] [address] [place] [address] Guillaume Vasquez DO [address] [place], [facility] [address] [address] documented as of this encounter Visit Diagnoses Not on filedocumented in this encounter Care Teams Medical Corps Officer Relationship Specialty Start Date End Date Chhaya Ceballos MD PCP - General Family Medicine 03/04/23 documented as of this encounter
--- OUTSIDE RECORDS SUMMARY | 2024-10-26 12:32 | XMS_ITS | Encounter Summary ---
Author Organization [facility] Address [address] [place] [address] Care Team Providers Care Hydrology Teacher Name Role Phone Chhaya Ceballos MD Primary Care Provider [phone] Encounter Details Date Type Department Care Team (Late st Contact Info) Description 01/18/2024 Clinisync Result Encounter [facility] External Department Unsolicited Guillaume Vasquez, DO [address] [place], [place] [id number] Social History Tobacco Use Types Packs/Day Years [...] Visit [facility] BCP OB [address] [place] [address] Guillaume Vasquez DO [facility] [place] [address] documented as of this encounter Procedures Procedure Name Priority Date/Time Associated Diagnosis Comments US OB BPP W NON-STRESS 01/18/2024 6:52 AM EDT documented in this encounter Results * US OB BPP W NON-STRESS (01/18/2024 6:52 AM EDT) Anatomical Region Laterality Modality Other 01/18/2024 6:52 AM EDT Narrative 01/18/2024 6:55 [place] [address] Ultrasound Report Signed Patient: STACIE JEFEFRS MR#: [id number] : 1990 Acct:[id number] Age/Sex: 33 / F ADM Date: 01/17/24 Loc: US Attending Dr: Guillaume Vasquez D.O. Ordering Physician: Guillaume Vasquez D.O. Date of Service: 01/17/24 Procedure(s): US OB BPP w non-stress Accession Number(s): [id number] cc: Guillaume Vasquez D.O.; Physician,Non-Staff M.DCristopher The [place] [address] Patient Name: STACIE JEFFERS MRN: [facility]:[id number] date: 1990 Sex: F Assigned Patient Location: US Current Patient Location: US Accession/Order Number: [id number] Exam Date: 01/17/2024 13:30 Report Date: 01/18/2024 06:52 At the request of: GUILLAUME VASQUEZ Procedure: US OB BPP w non-stress EXAMINATION: US OB BPP w non-stress HISTORY:Thyroid disease COMPARISON: Ultrasound OB growth 12/20/2023 TECHNIQUE: Ultrasound biophysical profile was performed in the radiology department. BREATHING MOVEMENTS: 2 GROSS BODY MOVEMENTS: 2 TONE: 2 QUALITATIVE AMNIOTIC FLUID VOLUME: 2 PRESENTATION: CEPHALIC HEART RATE: 137.06 bpm AMNIOTIC FLUID VOLUME: 18.16 cm GESTATIONAL AGE: 32 weeks 2 days US/US OB BPP w non-stress IMPRESSION: Total biophysical profile score: 8 Electronically authenticated by: ANAND GIPSON Date: 01/18/2024 06:52 Dictated By: Anand Gipson M.D. Signed By: 01/18/2455 DD/ 1 TD/TT: Mounter Brass Wind Instruments: Procedure Note Radiology, Radiologist, - 01/18/2024 [place] [address] Ultrasound Report Signed Patient: STACIE JEFFERS BMR#: [id number] : 1990Acct:[id number] Age/Sex: 33 / FADM Date: 01/17/24 Loc: US Attending Dr: Guillaume Vasquez D.O. Ordering Physician: Guillaume Vasquez D.O. Date of Service: 01/17/24 Procedure(s): US OB BPP w non-stress Accession Number(s): [id number] cc: Guillaume Vasquez D.O.; Physician,Non-Staff Asim [address] [place] [address] Patient Name: STACIE JEFFERS MRN: [facility]:[id number] date: 1990 Sex: F Assigned Patient Location: US Current Patient Location: US Accession/Order Number: [id number] Exam Date: 01/17/2024 13:30 Report Date: 01/18/2024 06:52 At the request of: GUILLAUME VASQUEZ Procedure: US OB BPP w non-stress EXAMINATION: US OB BPP w non-stress HISTORY:Thyroid disease COMPARISON: Ultrasound OB growth 12/20/2023 TECHNIQUE: Ultrasound biophysical profile was performed in the radiology department. BREATHING MOVEMENTS: 2 GROSS BODY MOVEMENTS: 2 TONE: 2 QUALITATIVE AMNIOTIC FLUID VOLUME: 2 PRESENTATION: CEPHALIC HEART RATE: 137.06 bpm AMNIOTIC FLUID VOLUME: 18.16 cm GESTATIONAL AGE: 32 weeks 2 days US/US OB BPP w non-stress IMPRESSION: Total biophysical profile score: 8 Electronically authenticated by: ANAND GIPSON Date: 01/18/2024 06:52 Dictated By: Anand Gipson M.D. Signed By:01/18/2455 DD/ 0652 TD/TT: Mounter Brass Wind Instruments: us Guillaume Pedro DO [facility] Final Result documented in this encounter Visit Diagnoses Not on filedocumented in this encounter Care Teams Hydrology Teacher Relationship Specialty Start Date End Date Chhaya Ceballos MD PCP - General Family Medicine 03/04/23 documented as of this encounter
--- OUTSIDE RECORDS SUMMARY | 2024-10-26 12:32 | XMS_ITS | Encounter Summary ---
Author Organization [facility] Address [address] [facility] [place] [address] Care Team Providers Care Assessment Manager Name Role Phone Chhaya Ceballos MD Primary Care Provider [phone] Encounter Details Date Type Department Care Team (Late st Contact Info) Description 02/16/2024 Clinisync Result Encounter [facility] External Department Unsolicited Guillaume Vasquez, [address] [place] [address] Social History Tobacco Use Types Packs/Day Years [...] 11/01/2025 9:00 AM EDT Office Visit [facility] OB [address] [place] [address] Guillaume Vasquez DO [facility] [place] [address] documented as of this encounter Procedures Procedure Name Priority Date/Time Associated Diagnosis Comments US OB GROWTH 02/16/2024 4:34 AM EDT documented in this encounter Results * US OB GROWTH (02/16/2024 4:34 AM EDT) Anatomical Region Laterality Modality Other 02/16/2024 4:34 AM EDT Narrative 02/16/2024 4:37 [place] [address] Ultrasound Report Signed Patient: STACIE JEFFERS MR#: [id number] : 1990 Acct:[id number] Age/Sex: 34 / F ADM Date: 02/14/24 Loc: US Attending Dr: Guillaume Vasquez D.O. Ordering Physician: Guillaume Vasquez D.O. Date of Service: 02/14/24 Procedure(s): US OB growth Accession Number(s): [id number] cc: Guillaume Vasquez D.O.; Physician,Non-Staff M.D. [facility] [place] [address] Patient Name: STACIE JEFFERS MRN: [id number] date: 1990 Sex: F Assigned Patient Location: US Current Patient Location: US Accession/Order Number: [id number] Exam Date: 02/14/2024 13:15 Report Date: 02/16/2024 04:34 At the request of: GUILLAUME VASQUEZ Procedure: US OB growth EXAMINATION: US OB growth HISTORY: LGA COMPARISON: Ultrasound OB growth 01/17/2024 FINDINGS: Heart Rate: 115.88 bpm Amniotic Fluid Volume: 25.3 cm; greater than 95th percentile. Number: 1 Position: CEPHALIC BIOMETRY: BPD: 9.47 cm; 38 weeks 4 days; 97 % HC: 34.54 cm; 40 weeks 0 days; 94.30 % AC: 35.57 cm; 39 weeks 3 days; 97 % FL: 7.09 cm; 36 weeks 2 days; 47.90 % EFW: 3586.42 g; 97 % FL/AC: 19.93 FL/BPD: 74.86 HC/AC: 0.97 GESTATIONAL AGE: Age by EDC: 36 weeks 2 days MEHUL by EDC: 2024-03-11 Age by US: 38 weeks 4 days MEHUL by US: 2024-02-24 US/US OB growth IMPRESSION: 1. Single live intrauterine with growth detailed above. 2. Estimated weight is greater than 97th percentile. 3. Polyhydramnios. Electronically authenticated by: ANAND GIPSON Date: 02/16/2024 04:34 Dictated By: Anand Gipson M.D. Signed By: 02/16/24436 DD/ 3 TD/TT: Television Antenna Installer: Procedure Note Radiology, Radiologist, MD - 02/16/2024 [place] [address] Ultrasound Report Signed Patient: STACIE JEFFERS BMR#: [id number] : 1990Acct:[id number] Age/Sex: 34 / FADM Date: 02/14/24 Loc: US Attending Dr: Guillaume Vasquez D.O. Ordering Physician: Guillaume Vasquez D.O. Date of Service: 02/14/24 Procedure(s): US OB growth Accession Number(s): [id number] cc: Guillaume Vasquez D.O.; Physician,Non-Staff Asim [facility] [place] [id number] Patient Name: STACIE JEFFERS MRN: [facility]:[id number] date: 1990 Sex: F Assigned Patient Location: US Current Patient Location: US Accession/Order Number: [id number] Exam Date: 02/14/2024 13:15 Report Date: 02/16/2024 04:34 At the request of: GUILLAUME VASQUEZ Procedure: US OB growth EXAMINATION: US OB growth HISTORY: LGA COMPARISON: Ultrasound OB growth 01/17/2024 FINDINGS: Heart Rate: 115.88 bpm Amniotic Fluid Volume: 25.3 cm; greater than 95th percentile. Number: 1 Position: CEPHALIC BIOMETRY: BPD: 9.47 cm; 38 weeks 4 days; 97 % HC: 34.54 cm; 40 weeks 0 days; 94.30 % AC: 35.57 cm; 39 weeks 3 days; 97 % FL: 7.09 cm; 36 weeks 2 days; 47.90 % EFW: 3586.42 g; 97 % FL/AC: 19.93 FL/BPD: 74.86 HC/AC: 0.97 GESTATIONAL AGE: Age by EDC: 36 weeks 2 days MEHUL by EDC: 2024-03-11 Age by US: 38 weeks 4 days MEHUL by US: 2024-02-24 US/US OB growth IMPRESSION: 1. Single live intrauterine with growth detailed above. 2. Estimated weight is greater than 97th percentile. 3. Polyhydramnios. Electronically authenticated by: ANAND GIPSON Date: 02/16/2024 04:34 Dictated By: Anand Gipson M.D. Signed By:02/16/24436 DD/ 3 TD/TT: Television Antenna Installer: us Guillaume Pedro DO [facility] Final Result documented in this encounter Visit Diagnoses Not on filedocumented in this encounter Care Teams Assessment Manager Relationship Specialty Start Date End Date Chhaya Ceballos MD PCP - General Family Medicine 03/04/23 documented as of this encounter
--- OUTSIDE RECORDS SUMMARY | 2024-10-26 12:32 | XMS_ITS | Encounter Summary ---
Author Organization [facility] Address [address] [facility] [place] [address] Care Team Providers Care Cashier Host/Hostess Name Role Phone Chhaya Ceballos MD Primary Care Provider [phone] Encounter Details Date Type Department Care Team (Late st Contact Info) Description 01/18/2024 Clinisync Result Encounter [facility] External Department Unsolicited Guillaume Vasquez DO [address] [place] [address] Social History Tobacco Use Types Packs/Day Years [...] 11/01/2025 9:00 AM EDT Office Visit [facility] OB [address] [place] [address] Guillaume Vasquez DO [facility] [place] [address] documented as of this encounter Procedures Procedure Name Priority Date/Time Associated Diagnosis Comments US OB GROWTH 01/18/2024 6:55 AM EDT documented in this encounter Results * US OB GROWTH (01/18/2024 6:55 AM EDT) Anatomical Region Laterality Modality Other 01/18/2024 6:55 AM EDT Narrative 01/18/2024 6:57 [place] [address] Ultrasound Report Signed Patient: STACIE JEFFERS MR#: [id number] : 1990 Acct:[id number] Age/Sex: 33 / F ADM Date: 01/17/24 Loc: US Attending Dr: Guillaume Vasquez D.O. Ordering Physician: Guillaume Vasquez D.O. Date of Service: 01/17/24 Procedure(s): US OB growth Accession Number(s): [id number] cc: Guillaume Vasquez D.O.; Physician,Non-Staff M.D. [facility] [place] [address] Patient Name: STACIE JEFFERS MRN: [id number] date: 1990 Sex: F Assigned Patient Location: US Current Patient Location: US Accession/Order Number: [id number] Exam Date: 01/17/2024 13:30 Report Date: 01/18/2024 06:55 At the request of: GUILLAUME VASQUEZ Procedure: US OB growth EXAMINATION: US OB growth HISTORY: Excessive growth COMPARISON: Ultrasound OB growth 12/20/2023 FINDINGS: Heart Rate: 137.06 bpm Amniotic Fluid Volume: 18.2 cm; normal range. Number: 1 Position: CEPHALIC BIOMETRY: BPD: 8.63 cm; 34 weeks 6 days; 96.20 % HC: 32.40 cm; 36 weeks 5 days; >97 % AC: 29.87 cm; 33 weeks 6 days; 88.20 % FL: 6.57 cm; 33 weeks 6 days; 78.20 % EFW: 2377.31 g; 92.40 % FL/AC: 21.99 FL/BPD: 76.05 HC/AC: 1.08 GESTATIONAL AGE: Age by EDC: 32 weeks 2 days MEHUL by EDC: 2024-03-11 Age by US: 34 weeks 6 days MEHUL by US: 2024-02-22 US/US OB growth IMPRESSION: 1. Single live intrauterine with growth detailed above. 2. Head circumference is greater than 97th percentile. Electronically authenticated by: ANAND GIPSON Date: 01/18/2024 06:55 Dictated By: Anand Gipson M.D. Signed By: 01/18/2457 DD/ 4 TD/TT: Slice Cutting Machine Operator: Procedure Note Radiology, Radiologist, MD - 01/18/2024 [place] [address] Ultrasound Report Signed Patient: STACIE JEFFERS BMR#: [id number] : 1990Acct:[id number] Age/Sex: 33 / FADM Date: 01/17/24 Loc: US Attending Dr: Guillaume Vasquez D.O. Ordering Physician: Guillaume Vasquez D.O. Date of Service: 01/17/24 Procedure(s): US OB growth Accession Number(s): [id number] cc: Guillaume Vasquez D.O.; Physician,Non-Staff Asim [facility] [place] [id number] Patient Name: STACIE JEFFERS MRN: [facility]:[id number] date: 1990 Sex: F Assigned Patient Location: US Current Patient Location: US Accession/Order Number: [id number] Exam Date: 01/17/2024 13:30 Report Date: 01/18/2024 06:55 At the request of: GUILLAUME VASQUEZ Procedure: US OB growth EXAMINATION: US OB growth HISTORY: Excessive growth COMPARISON: Ultrasound OB growth 12/20/2023 FINDINGS: Heart Rate: 137.06 bpm Amniotic Fluid Volume: 18.2 cm; normal range. Number: 1 Position: CEPHALIC BIOMETRY: BPD: 8.63 cm; 34 weeks 6 days; 96.20 % HC: 32.40 cm; 36 weeks 5 days; >97 % AC: 29.87 cm; 33 weeks 6 days; 88.20 % FL: 6.57 cm; 33 weeks 6 days; 78.20 % EFW: 2377.31 g; 92.40 % FL/AC: 21.99 FL/BPD: 76.05 HC/AC: 1.08 GESTATIONAL AGE: Age by EDC: 32 weeks 2 days MEHUL by EDC: 2024-03-11 Age by US: 34 weeks 6 days MEHUL by US: 2024-02-22 US/US OB growth IMPRESSION: 1. Single live intrauterine with growth detailed above. 2. Head circumference is greater than 97th percentile. Electronically authenticated by: ANAND GIPSON Date: 01/18/2024 06:55 Dictated By: Anand Gipson M.D. Signed By:01/18/2457 DD/ TD/TT: Slice Cutting Machine Operator: [facility] Pedro DO [facility] Final Result documented in this encounter Visit Diagnoses Not on filedocumented in this encounter Care Teams Cashier Host/Hostess Relationship Specialty Start Date End Date Chhaya Ceballos MD PCP - General Family Medicine 03/04/23 documented as of this encounter
--- OUTSIDE RECORDS SUMMARY | 2024-10-26 12:32 | XMS_ITS | Encounter Summary ---
Author Organization [facility] Address [address] [facility] [place] [address] Care Team Providers Care Sludge Control Attendant Name Role Phone Chhaya Ceballos MD Primary Care Provider [phone] Encounter Details Date Type Department Care Team (Late st Contact Info) Description 11/20/2023 Abstract [facility] OB [address] [place] [address] Guillaume Vasquez DO [facility] [address], [place] [address] Social History Tobacco Use Types Packs/Day Years [...] 11/01/2025 9:00 AM EDT Office Visit [facility] OB [address] [place] [address] Guillaume Vasquez DO [address], [facility] documented as of this encounter Visit Diagnoses Not on filedocumented in this encounter Care Teams Sludge Control Attendant Relationship Specialty Start Date End Date Chhaya Ceballos MD PCP - General Family Medicine 03/04/23 documented as of this encounter
--- OUTSIDE RECORDS SUMMARY | 2024-10-26 12:32 | XMS_ITS | Encounter Summary ---
Author Organization [facility] Address [address] [place] [address] Care Team Providers Care Adding Machine Servicer Name Role Phone Chhaya Ceballos Primary Care Provider + Emile Mesa MD Unavailable Guillaume Vasquez DO Unavailable [phone] Source Comments In the event this information is protected by the Federal Confidentiality of Alcohol and Drug AbusePatient Records regulations: The Federal rules restrict any use of the information to criminally investigate or prosecute any alcohol or drug abuse patient.[facility] Encounter Details Date Type Department Care Team (Late st Contact Info) Description 08/25/2023 Patient [facility] -[address] [place] [address] Noemi Chavez RPh Medication Refill(s) Past Due [...] risk 9 02/25/2023 Data from: https://www.neighborhoodatlas.medicine.[facility].edu/. Last address used for calculation [address] [...] on filedocumented in this encounter Care Teams Adding Machine Servicer Relationship Specialty Start Date End Date Chhaya Ceballos DO [address] [place] [address] PCP - General Family Medicine 07/25/22 Emile Mesa MD [address] [place] [address] [place] [address] Gastroenterology 07/25/22 Guillaume Vasquez DO [address] [place] [address] [place] [address] Print Operator 07/25/22 documented as of this encounter
--- OUTSIDE RECORDS SUMMARY | 2024-10-26 12:32 | XMS_ITS | Encounter Summary ---
Author Organization [facility] Address [address] [facility] [place] [address] Care Team Providers Care Clinical Fellow Name Role Phone Chhaya Ceballos MD Primary Care Provider [phone] Encounter Details Date Type Department Care Team (Late st Contact Info) Description 01/20/2024 Abstract [facility] [address] [place] [address] Guillaume Vasquez DO [facility] [address], [place] [address] Social History Tobacco Use Types Packs/Day Years [...] 11/01/2025 9:00 AM EDT Office Visit [facility] [address] [place] [address] Guillaume Vasquez DO [address], [facility] documented as of this encounter Visit Diagnoses Not on filedocumented in this encounter Care Teams Clinical Fellow Relationship Specialty Start Date End Date Chhaay Ceballos MD PCP - General Family Medicine 03/04/23 documented as of this encounter
--- OUTSIDE RECORDS SUMMARY | 2024-10-26 12:32 | XMS_ITS | Encounter Summary ---
Author Organization [facility] Address [address] [facility] [place] [address] Care Team Providers Care Outside Property Agent Name Role Phone Chhaya Ceballos MD Primary Care Provider [phone] Encounter Details Date Type Department Care Team (Late st Contact Info) Description 02/23/2024 Abstract [facility] [address] [place] [address] Guillaume Vasquez DO [facility] [address], [place] [address] Social History Tobacco Use Types Packs/Day Years [...] 11/01/2025 9:00 AM EDT Office Visit [facility] OB [address] [place] [address] Guillaume Vasquez DO [address], [facility] documented as of this encounter Visit Diagnoses Not on filedocumented in this encounter Care Teams Outside Property Agent Relationship Specialty Start Date End Date Chhaya Ceballos MD PCP - General Family Medicine 03/04/23 documented as of this encounter
[2024-10-30 10:08] LABS: Age Gdln ACOG Testing Note (.); IGP, Aptima HPV, rfx 16/18,45 Note (.)
== END 2024-10-26 12:27 | disposition home or self-care (01) ==
LOC: LAB 12:26
PROVIDERS: PCP Family Medicine; Visit Provider Obstetrics & Gynecology
DX: Z01.419 Encounter for gynecological examination (general) (routine) without abnormal findings (principal)
CPT/HCPCS: 87624; 88175

== ENCOUNTER 2024-12-22 09:03 | Outpatient (OUT) | payer OTHER, SELFPAY ==
--- OUTSIDE RECORDS SUMMARY | 2024-10-12 06:45 | XMS_ITS ---
Author Organization [facility] es Address [address] [facility] [place] [address] Care Team Providers Care Roll Forming Machine Operator Name Role Phone Paola, Alondra Primary Care Provider REASON FOR VISIT fu rs Social History Sex Assigned At : Social History Observation Description Sex Assigned At Female Encounters Encounter Location Date Provider Diagnosis [facility] [place] [address] [place] [address] 10/12/2024 Alondra Guevara Plan Of Treatment Next Appt Details Provider Name:Alondra Mcmahon n, 01/11/2025 09:00:00 AM, [address] [facility], [address], Progress Notes * JESSEE ALMODOVAR BDOB:1989 (34 yo F)Acc No.[id number]:10/12/2024 Behavioral Health Patient: Kristin JARAJESSEE Bird Provider: Devaughn Guevara CNP :1990 A ge:34 Y S ex:Female Date:10/12/2024 Address:[address], [address] [facility], [id number] Subjective: * Chief Complaints: * 1 . fu rs. * Medical History: Objective: * Vitals: Assessment: Plan: * Treatment: * Images: * Electronic signature of DE Johnson on 12/22/2024 at 09:07 AM EDT Sign off status: Pending * Provider: Devaughn Guevara CNP Date: 0 10/12/2024 Generated for Zulma keating/Mariya/Garciaitting on: 0 12/22/2024 09:07 AM EDT
--- OUTSIDE RECORDS SUMMARY | 2024-10-19 07:15 | XMS_ITS ---
Author Organization [facility] es Address [address] [place] [address] Care Team Providers Care Jukebox Coin Collector Name Role Phone Paola, Alondra Primary Care Provider [phone] REASON FOR VISIT [facility] RS 10/11 Social History Sex Assigned At : Social History Observation Description Sex Assigned At Female Encounters Encounter Location Date Provider Diagnosis [facility] [address] [place] [address] 10/19/2024 Alondra Guevara Plan Of Treatment Next Appt Details Provider Name:Alondra Mcmahon n, 01/11/2025 09:00:00 AM, [address] [place], [address], Progress Notes * JESSEE ALMODOVAR BDOB:1989 (34 yo F)Acc No.[id number]:10/19/2024 Behavioral Health Patient: Kristin JARAJESSEE Bird Provider: Devaughn Guevara CNP :1990 A ge:34 Y S ex:Female Date:10/19/2024 Address:[address], [facility], [id number] Subjective: * Chief Complaints: * 1 . [facility] RS 10/11. * Medical History: Objective: * Vitals: Assessment: Plan: * Treatment: * Images: * Electronic signature of DE Johnson on 12/22/2024 at 09:07 AM EDT Sign off status: Pending * Provider: Devaughn Guevara CNP Date: 0 10/19/2024 Generated for Zulma keating/Mariya/Garciaitting on: 0 12/22/2024 09:07 AM EDT
--- OUTSIDE RECORDS SUMMARY | 2024-11-10 06:30 | XMS_ITS ---
Author Organization [facility] Address [address] [place] [address] Care Team Providers Care Government Relations Director Name Role Phone Paola Alondra Primary Care Provider REASON FOR VISIT [facility] Social History Sex Assigned At : Social History Observation Description Sex Assigned At Female Encounters Encounter Location Date Provider Diagnosis [facility] [address] [place] [address] 11/10/2024 Alondra Guevara Plan Of Treatment Next Appt Details Provider Name:Alondra A Hyjosé miguel n, 01/11/2025 09:00:00 AM, [email or web address], [address], Progress Notes * JESSEE ALMODOVAR BDOB:1989 (34 yo F)Acc No.[id number]:11/10/2024 Behavioral Health Patient: Kristin JARAJESSEE Bird Provider: Devaughn Guevara CNP :1990 A ge:34 Y S ex:Female Date:11/10/2024 Address:[address], [place] [facility], [id number] Subjective: * Chief Complaints: * 1 . FU. * Medical History: Objective: * Vitals: Assessment: Plan: * Treatment: * Images: * Electronic signature of DE Johnson on 12/22/2024 at 09:08 AM EDT Sign off status: Pending * Provider: Devaughn Guevara CNP Date: 0 11/10/2024 Generated for Zulma keating/Mariya/Garciaitting on: 0 12/22/2024 09:08 AM EDT
--- OUTSIDE RECORDS SUMMARY | 2024-12-14 05:00 | XMS_ITS ---
Author Organization [facility] Servic es Address [address] [place] [address] Care Team Providers Care Property Manager Name Role Phone PaolaAlondra garvin Primary Care Provider [phone] Allergies No Known Allergies REASON FOR VISIT F/U, Pt here for f/u. Moods are ok, has a lot of stress going on right now causing anxiety. Sleep is not good, having issues staying asleep, would like something to help her sleep. Appetite is good. KSJ Medications Medication SIG (Take, Route, Frequency, Duration) Notes Start Date End Date Status Lisinopril 5 MG 1 tablet Orally once a day Not-Taking Biotin 5000 MCG 1 capsule Orally onc e a day Not-Taking Lexapro 20 MG 1 tablet Orally Once a day Not-Taking Strattera 40 MG 1 capsule in the morning Orally Once a day; Duration: 30 day(s) 11/07/2021 Not-Taking hydrOXYzine HCl 25 MG 1 tablet Orally th ree times a day (tid) as needed; Duration: 30 day(s) 10/16/2021 Not-Taking Vitamin B12 Not-Taki ng Levothyroxine Sodium 200 MCG 1 capsule Orally once a day Active Venlafaxine HCl ER 150 MG Take 1 capsule by mouth once a day Orally Once a day; Duration: 30 days Active Adderall XR 20 MG 1 capsule in the morning Orally Once a day; Duration: 30 days 12/14/2024 Active Adderall 10 MG 1 tablet in the afternoon Orally daily; Duration: 30 days 12/14/2024 Active traZODone HCl 50 MG 1 tablet at bedtime as needed Orally Once a day; Duration: 30 days 12/14/2024 Active Omeprazole 40 MG 1 capsule Orally onc e a day Active Labetalol HCl Active Active ZyrTEC Active Social History Tobacco Use: Social History Observation Description Date Details (start date - stop date) Former Smoker NA - NA Sex Assigned At : Social History Observation Description Sex Assigned At Female Alcohol Screening: Question Answer Notes Did you [...] Control (Standard) Question Answer Notes Tobacco use: Former smoker How long has it been since you last smoked? 5-10 years Problems Problem Type SNOMED Code ICD Code Onset Dates Problem Status W/U Status Risk Notes Problem Insomnia (111956659) Insomnia, unspecified type (G47.00) Active confirmed Vital Signs Height 71.5 in 12/14/2024 Weight 178.65 lbs 12/14/2024 BMI 24.57 kg/m2 12/14/2024 Temperature 97.5 degrees Fahrenheit 12/15/19 25 Blood pressure systolic 166 mm Hg 12/15/19 25 Blood pressure diastolic 113 mm Hg 025 Oximetry 98 % 12/14/2024 Heart Rate 77 /min 12/14/2024 Pt did not take pill this mo rning Encounters Encounter Location Date Provider Diagnosis [facility] [place] [address] [place] [address] 12/14/2024 Alondra Guevara ADHD (attention d eficit hyperactivity disorder), combined type F90.2 ; Moderate episode of recurrent major depressive disorder F33.1 and Insomnia, unspecified type G47.00 Assessments Encounter Date Diagnosis (ICD Code) Assessment Notes Treatment Notes Treatment Clinical Notes Section Notes 12/14/2024 ADHD (attention deficit hyperactivity disorder), combined type (ICD-10 - F90.2) ADHD stable, patient denies unfavorable side effects such as CP, stomach aches, or sleep difficulties. Weight is stable. OARRS reviewed. Patient enjoys being in school. Continue current regimen. Refills will be sent at todays visit. Follow up in 3 months and PRN. 12/14/2024 Moderate episode of recurrent major depressive disorder (ICD-10 - F33.1) Continue medication, potential side effects were discussed as well as proper administration of medication. Pt verbalizes understanding. Pt is aware not to stop medication suddenly and to come to office to be weaned down, abrupt discontinuation can cause withdrawal symptoms. Stable mood today, no c/o SI/HI, if feelings occur pt to call 911/ER. Discussed coping mechanisms such as exercise, group therapy, and counseling. f/u in 1 month and PRN 12/14/2024 Insomnia, unspecified type (ICD-10 - G47.00) will trial Trazodone 50 mg QHS f/u in 1 month and PRN good sleep hygiene discussed. Avoid stimulants such as tv, electronic, exercises before bed. Relaxation techniques also discussed. pt has tried 5mg to 10 mg melatonin and Magnesium with no success. Plan Of Treatment Medication Medication Name Sig Start Date Stop Date Notes Venlafaxine HCl ER 150 MG Take 1 capsule by mouth once a day Orally Once a day; Duration: 30 days Adderall XR 20 MG 1 capsule in the mor israel Orally Once a day; Duration: 30 days 12/14/2024 Adderall 10 MG 1 tablet in the afte rnoon Orally daily; Duration: 30 days 12/14/2024 traZODone HCl 50 MG 1 tablet at bedtime as needed Orally Once a day; Duration: 30 days 12/14/2024 Treatment Notes Assessment Notes ADHD (attention deficit hype ractivity disorder), combined type ADHD stable, patient denies unfavorable side effects such as CP, stomach aches, or sleep difficulties. Weight is stable. OARRS reviewed. Patient enjoys being in school. Continue current regimen. Refills will be sent at todays visit. Follow up in 3 months and PRN. Moderate episode of recurren t major depressive disorder Continue medication, potential side effects were discussed as well as proper administration of medication. Pt verbalizes understanding. Pt is aware not to stop medication suddenly and to come to office to be weaned down, abrupt discontinuation can cause withdrawal symptoms. Stable mood today, no c/o SI/HI, if feelings occur pt to call 911/ER. Discussed coping mechanisms such as exercise, group therapy, and counseling. f/u in 1 month and PRN Insomnia, unspecified type will trial Trazodone 50 mg QHS f/u in 1 month and PRN good sleep hygiene discussed. Avoid stimulants such as tv, electronic, exercises before bed. Relaxation techniques also discussed. pt has tried 5mg to 10 mg melatonin and Magnesium with no success. Next Appt Details Follow Up: 4 Weeks, Reason: BH f/u Provider Name:Alondra rutherford, 01/11/2025 09:00:00 AM, [address] [place] [address], [id number], Progress Notes * JESSEE ALMODOVAR BDOB:1989 (34 yo F)Acc No.[id number]:12/14/2024 Behavioral Health Patient: JESSEE SALAS Provider: Devaughn Guevara CNP :1990 A ge:34 Y S ex:Female Date:12/14/2024 Address: [address], [address], [address] [facility], [id number] Subjective: * Chief Complaints: * B H F/UPt here for BH f/u. Moods are ok, has a lot of stress going on right now causing anxiety. Sleep is not good, having issues staying asleep, would like something to help her sleep. Appetite is good. KSJ * HPI: D epression Screening: PHQ-2 (2015 Edition) L ittle interest or pleasure in doing things??Not at all F eeling down, depressed, or hopeless? N ot at all T otal Score 0 . Patient is here for a follow up visit today. Stimulant medication continues to significantly improve symptoms of inattention and hyperactivity. Pt is able to maintain mental attention without need for redirection, can multi task, remain organized, and avoid procrastination. Pt is able to remain seated especially when being seated is necessary at home and work, limited fidgetiness, and avoid blurting out and interrupting others. Has alot going on with life stressors. . Mood is good daily, energy and motivation intact, irritability is not pervasive, is not sleeping well at night denies difficulty falling asleep but will wake up 3 x through out the night. . Denies suicidal or homicidal ideation or plan. No morbid thoughts. Interpersonal issues discussed. Support provided Insight oriented/ Behavior modifying/ Supportive therapy Plan: P t would like to continue current treatment plan. nick trial Trazodone 50mg QHS. f/u in 1 month and PRN . * ROS: C ONSTITUTIONAL: No fever, chills, sweats, weakness SKIN: No jaundice, rash, lesions, petechiae GASTROINTESTINAL: No nausea, vomiting, diarrhea, or GI bleeding MUSCULOSKELETAL: No muscle pain or weakness NEUROLOGIC: No headache, dizziness, numbness, or weakness . * Medical History: * Surgical History: E ar tubes * Hospitalization/Major Diagno stic Procedure: C hild * Family History: F ather: alive. M other: alive, diagnosed with Hypertension. P aternal Grand Father: . P aternal Grand Mother: . M aternal Grand Father: , diagnosed with Cancer. M aternal Grand Mother: alive, diagnosed with Heart Disease. 1 brother(s) . 1 daughter(s) . . PGM- Kidney Disease MGM/PGH- Dementia. * Social History: G eneral: A lcohol Screening D id you have a drink containing alcohol in the past year? Y es H ow often did you have a drink containing alcohol in the past year? F our or more times a week (4 points) H ow many drinks did you have on a typical day when you were drinking in the past year? 1 or 2 (0 points) P oints 4 I nterpretation P ositive Depression Screening (PHQ-9) L ittle interest or pleasure in doing things?More than half the days F eeling down, depressed, or hopeless S everal days T rouble falling or staying asleep, or sleeping too much N early every day F eeling tired or having little energy N early every day P oor appetite or overeating N ot at all F eeling bad about yourself-or that you are a failure or have let yourself or your family down N ot at all T rouble concentrating on things, such as reading the newspaper or watching television N early every day M oving or speaking so slowly that other people could have noticed. Or the opposite being so fidgety or restless that you have been moving around a lot more than usual N ot at all T houghts that you would be better off , or of hurting yourself in some way N ot at all T otal Score 1 2 I ntepretation M oderate Depression T obacco Use: T obacco Control (Standard) T obacco use: F ormer smoker H ow long has it been since you last smoked??5-10 years * Medications: T akingZyrTEC Labetalol HCl Omeprazole 40 MG Capsule Delayed Release 1 capsule Orally once a day Levothyroxine Sodium 200 MCG Capsule 1 capsule Orally once a day Venlafaxine HCl ER 150 MG Capsule Extended Release 24 Hour Take 1 capsule by mouth once a day Orally Once a day Adderall XR 20 MG Capsule Extended Release 24 Hour 1 capsule in the morning Orally Once a day Adderall 10 MG Tablet 1 tablet in the afternoon Orally daily Taking ZyrTEC Taking Taking Labetalol HCl Taking Omeprazole 40 MG Capsule Delayed Release 1 capsule Orally once a day Taking Levothyroxine Sodium 200 MCG Capsule 1 capsule Orally once a day Taking Venlafaxine HCl ER 150 MG Capsule Extended Release 24 Hour Take 1 capsule by mouth once a day Orally Once a day Taking Adderall XR 20 MG Capsule Extended Release 24 Hour 1 capsule in the morning Orally Once a day Taking Adderall 10 MG Tablet 1 tablet in the afternoon Orally daily Not-Taking/PRNVitamin B12 Biotin 5000 MCG Capsule 1 capsule Orally once a day Lisinopril 5 MG Tablet 1 tablet Orally once a day hydrOXYzine HCl 25 MG Tablet 1 tablet Orally three times a day (tid) as needed Strattera 40 MG Capsule 1 capsule in the morning Orally Once a day Lexapro 20 MG Tablet 1 tablet Orally Once a day Medication List reviewed and reconciled with the patientNot-Taking/PRN Vitamin B12 Not-Taking/PRN Biotin 5000 MCG Capsule 1 capsule Orally once a day Not-Taking/PRN Lisinopril 5 MG Tablet 1 tablet Orally once a day Not-Taking/PRN hydrOXYzine HCl 25 MG Tablet 1 tablet Orally three times a day (tid) as needed Not-Taking/PRN Strattera 40 MG Capsule 1 capsule in the morning Orally Once a day Not-Taking/PRN Lexapro 20 MG Tablet 1 tablet Orally Once a day Medication List reviewed and reconciled with the patient * Allergies: N .K.D.A.no[Allergies Verified] Objective: * Vitals: H t: 71.5 in, Wt: 178.65 lbs, BMI:24.57Index, Temp: 97.5 F, BP: 166/113 mm Hg, SaO2:98%, HR: 77 /min. Pt did not take pill this morning. * Examination: G eneral Examination: . MENTAL STATUS EXAM: . Appearance: Appropriately dressed and groomed, good eye contact, cooperative, pleasant Behavior/Motor Activity: Normal Gait/Station: Within normal limits BH Speech: Normal Mood: Good Affect: Full Thought processes/Associations: Logical and goal directed Thought Content: Non-psychotic Cognition/Attention/Memory/Concentration: Alert and oriented x 4; grossly intact attention; memory-recent/remote judged adequate by interviewer Insight: Good Judgement: Good BH language: Within normal limits Fund of Knowledge: Adequate . . Assessment: * Assessment: 1. M oderate episode of recurrent major depressive disorder - F33.1 (Primary) 2 . A DHD (attention deficit hyperactivity disorder), combined type - F90.2 3 .?Insomnia, unspecified type - G47.00 Plan: * Treatment: 2. A DHD (attention deficit hyperactivity disorder), combined type Refill Adderall Tablet, 10 MG, 1 tablet in the afternoon, Orally, daily, 30 days, 30 Tablet, Refills 0; R efill Adderall XR Capsule Extended Release 24 Hour, 20 MG, 1 capsule in the morning, Orally, Once a day, 30 days, 30 Capsule, Refills 0. Notes: ADHD stable, patient denies unfavorable side effects such as CP, stomach aches, or sleep difficulties. Weight is stable. OARRS reviewed. Patient enjoys being in school. Continue current regimen. Refills will be sent at todays visit. Follow up in 3 months and PRN. 3. I nsomnia, unspecified type Start traZODone HCl Tablet, 50 MG, 1 tablet at bedtime as needed, Orally, Once a day, 30 days, 30, Refills 0. Notes: will trial Trazodone 50 mg QHS f/u in 1 month and PRN good sleep hygiene discussed. Avoid stimulants such as tv, electronic, exercises before bed. Relaxation techniques also discussed. pt has tried 5mg to 10 mg melatonin and Magnesium with no success. ? * Procedure Codes: 3 080F DIAST BP = 90 MM [id number] MEDS BY RX/DR IN [id number] SYST BP >= 140 MM HG * Preventive Medicine: COUNSELING: Kenyetta batista Primary Pharmacy Discussion Patient agrees to primary pharmacy being set to [facility] N o Patient Declines: Explain Why Kenyetta batista explained that location of pharmacy is a barrier wants medications sent to local pharmacy, Is on controlled medications * Follow Up: 4 Weeks (Reason: BH f/u) * Images: * Sign off status: Completed true * Provider: Devaughn Guevara CNP Date: 12/14/2024 Generated for Zulma keating/Mariya/Ha on: 0 12/22/2024 09:07 AM EDT History and Physical Notes * HPI (History of Present Illness) Category Sub-Category Detail Notes Category Not es Depression Screening PHQ-2 (2015 Edition) Little interest or pleasure in doing things?: Not at all . Patient is here for a follow up visit today. Stimulant medication continues to significantly improve symptoms of inattention and hyperactivity. Pt is able to maintain mental attention without need for redirection, can multi task, remain organized, and avoid procrastination. Pt is able to remain seated especially when being seated is necessary at home and work, limited fidgetiness, and avoid blurting out and interrupting others. Has alot going on with life stressors. . Mood is good daily, energy and motivation intact, irritability is not pervasive, is not sleeping well at night denies difficulty falling asleep but will wake up 3 x through out the night. . Denies suicidal or homicidal ideation or plan. No morbid thoughts. Interpersonal issues discussed. Support provided Insight oriented/ Behavior modifying/ Supportive therapy Plan: Pt would like to continue current treatment plan. nick trial Trazodone 50mg QHS. f/u in 1 month and PRN . Feeling down, depressed, or hopeless?: N ot at all Total Score: 0 Examination Category Sub-Category Detail Notes Category Not es General Examination . MENTAL STATUS EXAM: . Appearance: Appropriately dressed and groomed, good eye contact, cooperative, pleasant Behavior/Motor Activity: Normal Gait/Station: Within normal limits BH Speech: Normal Mood: Good Affect: Full Thought processes/Associations: Logical and goal directed Thought Content: Non-psychotic Cognition/Attention/Memory/Con centration: Alert and oriented x 4; grossly intact attention; memory-recent/remote judged adequate by interviewer Insight: Good Judgement: Good BH language: Within normal limits Fund of Knowledge: Adequate .
--- OUTSIDE RECORDS SUMMARY | 2024-12-22 09:07 | XMS_ITS | Encounter Summary ---
Author Organization [facility] Address [address] [place] [address] Care Team Providers Care Cobol Developer Name Role Phone Chhaya Ceballos MD Primary Care Provider [phone] Franny Hager Unavailable Encounter Details Date Type Department Care Team (Late st Contact Info) Description 01/06/2024 Abstract YAMILET JENNINGS [facility] [place] [address] Guillaume Vasquez DO [address], [facility] Social History Tobacco Use Types Packs/Day Years [...] Care Team (Late st Contact Info) Description 01/11/2025 10:20 AM EDT Office Visit YAMILET JENNINGS [address] [place] [address] Guillaume Vasquez DO [address], [facility] 11/01/2025 9:00 AM EDT Office Visit [facility] Ketan JENNINGS [address] [place] [address] Guillaume Vasquez DO [address] [place] [address] documented as of this encounter Visit Diagnoses Not on filedocumented in this encounter Care Teams Cobol Developer Relationship Specialty Start Date End Date Chhaya Ceballos MD PCP - General Family Medicine 03/04/23 Franny Hager PA [address] [place] [address] PCP - Medical [place] [employer] 07/10/18 04/20/99 documented as of this encounter
--- OUTSIDE RECORDS SUMMARY | 2024-12-22 09:07 | XMS_ITS | Encounter Summary ---
Author Organization [facility] Address [address] [place] [address] Care Team Providers Care Carbon Brushes Assembler Name Role Phone Chhaya Ceballos MD Primary Care Provider Franny Hager Unavailable Encounter Details Date Type Department Care Team (Late st Contact Info) Description 10/21/2023 Abstract YAMILET JENNINGS [address] [place] [address] Jeanne Alvarado LPN [address] [place] [address] Social History Tobacco Use Types Packs/Day Years [...] AM EDT Office Visit YAMILET JENNINGS [address] [place] [address] Guillaume Vasquez DO [address] [place], [facility] 11/01/2025 9:00 AM EDT Office Visit [facility] Ketan JENNINGS [address] [place] [address] Guillaume Vasquez DO [address] [place] [address] documented as of this encounter Visit Diagnoses Not on filedocumented in this encounter Care Teams Carbon Brushes Assembler Relationship Specialty Start Date End Date Chhaya Ceballos MD PCP - General Family Medicine 03/04/23 Franny Hager PA [address] [place] [address] PCP - Medical [place] [employer] 07/10/18 04/20/99 documented as of this encounter
--- OUTSIDE RECORDS SUMMARY | 2024-12-22 09:07 | XMS_ITS | Encounter Summary ---
Author Organization [facility] Address [address] [place] [address] Care Team Providers Care Pipe [address] Service Name Role Phone Chhaya Ceballos Primary Care Provider + Emile Mesa MD Unavailable Guillaume Vasquez DO Unavailable [phone] Source Comments In the event this information is protected by the Federal Confidentiality of Alcohol and Drug AbusePatient Records regulations: The Federal rules restrict any use of the information to criminally investigate or prosecute any alcohol or drug abuse patient.[facility] Encounter Details Date Type Department Care Team (Late st Contact Info) Description 03/28/2023 [place] [address] Provider, [facility] MRI Screening Questionnaire Completion Required [...] is lower risk 9 02/25/2023 Data from: https://www.neighborhoodatlas.[facility]/. Last address used for calculation 5 [address] [...] on filedocumented in this encounter Care Teams [address] Service Relationship Specialty Start Date End Date Chhaya Ceballos DO [address] [place] [address] PCP - General Family Medicine 07/25/22 Emile Mesa MD [address] [place] [address] Gastroenterology 07/25/22 Guillaume Vasquez DO [address] [place] [address] [place] [address] Rn Documentation 07/25/22 documented as of this encounter
--- OUTSIDE RECORDS SUMMARY | 2024-12-22 09:07 | XMS_ITS | Encounter Summary ---
Author Organization [facility] Address [address] [place] [address] Care Team Providers Care Gold Layer Name Role Phone Chhaya Ceballos MD Primary Care Provider Franny Hager Unavailable Encounter Details Date Type Department Care Team (Late Contact Info) Description 12/10/2023 Abstract YAMILET JENNINGS [facility] [place] [address] Guillaume Vasquez DO [address], [facility] Social History Tobacco Use Types Packs/Day Years [...] Encounters Date Type Department Care Team (Late Contact Info) Description 01/11/2025 10:20 AM EDT Office Visit YAMILET JENNINGS [address] [place] [address] Guillaume Vasquez DO [address], [facility] 11/01/2025 9:00 AM EDT Office Visit [facility] Ketan JENNINGS [address] [place] [address] Guillaume Vasquez DO [address] [place] [address] documented as of this encounter Visit Diagnoses Not on filedocumented in this encounter Care Teams Gold Layer Relationship Specialty Start Date End Date Chhaya Ceballos MD PCP - General Family Medicine 03/04/23 Franny Hager PA [address] [place] [address] PCP - Medical [place] [employer] 07/10/18 04/20/99 documented as of this encounter
--- OUTSIDE RECORDS SUMMARY | 2024-12-22 09:07 | XMS_ITS | Encounter Summary ---
Author Organization [facility] Address [address] [place] [address] Care Team Providers Care Manager Of Case Name Role Phone Chhaya Ceballos MD Primary Care Provider [phone] Franny Hager Unavailable Encounter Details Date Type Department Care Team (Late Contact Info) Description 10/16/2023 Abstract YAMILET JENNINGS [address] [place] [address] Lisa Montes LPN [address] [employer] [facility] [address] [facility] Social History Tobacco Use Types Packs/Day [...] 10:20 AM EDT Office Visit YAMILET JENNINGS [facility] [place] [address] Guillaume Vasquez DO [address] [place] [address] 11/01/2025 9:00 AM EDT Office Visit [facility] Ketan JENNINGS [address] [place] [id number] Guillaume Vasquez DO [address] [facility] [place] [address] documented as of this encounter Visit Diagnoses Not on filedocumented in this encounter Care Teams Manager Of Case Relationship Specialty Start Date End Date Chhaya Ceballos MD PCP - General Family Medicine 03/04/23 Franny Hager PA [address] [facility] [address] [address] PCP - Medical [place] [employer] 07/10/18 04/20/99 documented as of this encounter
--- OUTSIDE RECORDS SUMMARY | 2024-12-22 09:07 | XMS_ITS | Encounter Summary ---
Author Organization [facility] Address [address] [place] [address] Care Team Providers Care Switch Maker Name Role Phone Chhaya Ceballos MD Primary Care Provider [phone] Franny Hager Unavailable Encounter Details Date Type Department Care Team (Late st Contact Info) Description 12/23/2023 Clinisync Result Encounter N[facility]S External Department Unsolicited Tee Vasquez, DO [address] [place], [place] [id number] Social History Tobacco Use Types Packs/Day Years [...] Description 01/11/2025 10:20 AM EDT Office Visit [facility] [address] [place] [phone] Tee Vasquez, [address] [place] [address] 11/01/2025 9:00 AM EDT Office Visit [facility] JENNINGS [address] [place] [address] Tee Vasquez DO [address] [place] [address] documented as of this encounter Procedures Procedure Name Priority Date/Time Associated Diagnosis Comments US OB GROWTH 12/23/2023 1:32 PM EDT documented in this encounter Results * US OB GROWTH (12/23/2023 1:32 PM EDT) Anatomical Region Laterality Modality Other 12/23/2023 1:32 PM EDT Narrative 12/23/2023 1:35 PM EDT The [address] [address] Ultrasound Report Signed Patient: JESSEE ALMODOVAR MR#: [id number] : 1990 Acct:[id number] Age/Sex: 33 / F ADM Date: 12/20/23 Loc: US Attending Dr: Tee Vasquez D.O. Ordering Physician: Tee Vasquez D.O. Date of Service: 12/20/23 Procedure(s): US OB growth Accession Number(s): [id number] cc: Tee Vasquez D.O.; Physician,Non-Staff MUriah The [address] [address] Patient Name: JESSEE ALMODOVAR MRN: [id number] date: 1990 Sex: F Assigned Patient Location: US Current Patient Location: Accession/Order Number: [id number] Exam Date: 12/20/2023 10:15 Report Date: 12/23/2023 [...] Gipson M.D. Signed By: 12/23/23 1335 DD/ 1332 TD/TT: Production Coordinator: Procedure Note Radiology, Radiologist, - 12/23/2023 [place] [address] Ultrasound Report Signed Patient: JESSEE ALMODOVAR BMR#: [id number] : 1990Acct:[id number] Age/Sex: 33 / FADM Date: 12/20/23 Loc: US Attending Dr: Tee Vasquez D.O. Ordering Physician: Tee Vasquez D.O. Date of Service: 12/20/23 Procedure(s): US OB growth Accession Number(s): [id number] cc: Tee Vasquez D.O.; Physician,Non-Staff Asim [address] [address] Patient Name: JESSEE ALMODOVAR MRN: [id number]:[id number] date: 1990 Sex: F Assigned Patient Location: US Current Patient Location: Accession/Order Number: [id number] Exam Date: 12/20/2023 10:15 Report Date: 12/23/2023 [...] Anand Gipson M.D. Signed By:12/23/23 1335 DD/ 133 TD/TT: Production Coordinator: us Tee Vasquez DO [facility] Final Result documented in this encounter Visit Diagnoses Not on filedocumented in this encounter Care Teams Switch Maker Relationship Specialty Start Date End Date Chhyaa Ceballos MD PCP - General Family Medicine 03/04/23 Franny Hager PA [address] [place] [address] Dr [place], [place] [address] PCP - Medical [place] [employer] 07/10/18 04/20/99 documented as of this encounter
--- OUTSIDE RECORDS SUMMARY | 2024-12-22 09:07 | XMS_ITS | Patient Health Record ---
Author Organization [employer] es Address [address] [place] [address] Care Team Providers Care Chain Pegger Name Role Phone Alondra Guevara Primary Care Provider Allergies No Known Allergies Reason For Referral No Information Medications Medication SIG (Take, Route, Frequency, Duration) Notes Start Date End Date Status Lisinopril 5 MG 1 tablet Orally once a day Not-Taking Biotin 5000 MCG 1 capsule Orally onc e a day Not-Taking traZODone HCl 50 MG 1 tablet at bedtime as needed Orally Once a day; Duration: 30 days 12/14/2024 Active Vitamin B12 Not-Taki ng Levothyroxine Sodium 200 MCG 1 capsule Orally once a day Active Omeprazole 40 MG 1 capsule Orally onc e a day Active Labetalol HCl Active Lexapro 20 MG 1 tablet Orally Once a day Not-Taking Active ZyrTEC Active Venlafaxine HCl ER 150 MG Take 1 capsule by mouth once a day Orally Once a day; Duration: 30 days Active Adderall XR 20 MG 1 capsule in the morning Orally Once a day; Duration: 30 days 12/14/2024 Active Adderall 10 MG 1 tablet in the afternoon Orally daily; Duration: 30 days 12/14/2024 Active Strattera 40 MG 1 capsule in the morning Orally Once a day; Duration: 30 day(s) 11/07/2021 Not-Taking hydrOXYzine HCl 25 MG 1 tablet Orally th ree times a day (tid) as needed; Duration: 30 day(s) 10/16/2021 Not-Taking Social History Tobacco Use: Social History Observation [...] Status W/U Status Risk Notes Problem Anxiety (38561657) Anxiety (F41.9) Active confirmed Problem Insomnia (399689610) Insomnia, unspecified type (G47.00) Active confirmed Problem Attention deficit hyperactivity disorder (723121506) ADHD (attention deficit hyperactivity disorder), combined type (F90.2) Active confirmed Problem Moderate recurrent major depression (52313254) Moderate episode of recurrent major depressive disorder (F33.1) Active confirmed Problem Inattention (45840413) Inattention (R41.840) Active confirmed Vital Signs Heart Rate 77 /min 12/14/2024 Pt did not take pill this morning Temperature 97.5 degrees Fahrenheit 12/14/2024 Pt d id not take pill this morning Blood pressure diastolic 113 mm Hg 12/14/2024 Pt did not take pill this morning Oximetry 98 % 12/14/2024 Pt did not take pill this morning Height 71.5 in 12/14/2024 Pt did not take pill this morning Blood pressure systolic 166 mm Hg 12/14/2024 Pt d id not take pill this morning Weight 178.65 lbs 12/14/2024 Pt did not take pill this morning BMI 24.57 kg/m2 12/14/2024 Pt did not take pill this morning Encounters Encounter Location Date Provider Diagnosis [facility] [address] [place] [address] 09/01/2024 Alondra Paola [facility] [address] [place] [address] 10/05/2024 Alondra Paola ADHD (attention defi cit hyperactivity disorder), combined type F90.2 [facility] [address] [place] [address] 10/18/2024 Alondra Paola [facility] [address] [place] [address] 11/09/2024 Alondra Paola ADHD (attention defi cit hyperactivity disorder), combined type F90.2 [address] [place] [address] 07/28/2024 Alondra Paola ADHD (attention defi cit hyperactivity disorder), combined type F90.2 and Moderate episode of recurrent major depressive disorder F33.[address] [address] 08/18/2024 Alondra Paola ADHD (attention defi cit hyperactivity disorder), combined type F90.[address] [address] 09/08/2024 Alondra Paola ADHD (attention defi cit hyperactivity disorder), combined type F90.2 [address] [place] [address] 11/12/2024 Alondra Paola ADHD (attention defi cit hyperactivity disorder), combined type F90.2 [address] [place] [address] 12/14/2024 Alondra Paola ADHD (attention defi cit hyperactivity disorder), combined type F90.2 ; Moderate [...] hyperactivity disorder), combined type (ICD-10 - F90.2) 11/09/2024 ADHD (attention deficit hyperactivity disorder), combined type (ICD-10 - F90.2) 11/12/2024 ADHD (attention deficit hyperactivity disorder), combined type (ICD-10 - F90.2) ADHD symptoms persist. At this time will increase dose of *Adderal to 20mg*. Discussed adverse effects from medication including HTN, [...] Follow up in 1 month & PRN. Continue current regimen. 12/14/2024 ADHD (attention deficit hyperactivity disorder), combined [...] mg melatonin and Magnesium with no success. 07/28/2024 Moderate episode of recurrent major depressive disorder (ICD-10 - F33.1) Mood has room for improvement, will increase *Effexor to 150mg daily. Discussed risks and side effects of medication. Patient denies SI/HI today. Follow up if mood does not improve. Patient verbalized understanding. Plan Of Treatment Next Appt Details Provider Name:Alondra Quezada Salome rutherford, 01/11/2025 09:00:00 AM, [address] [place], [address], Insurance Providers Payer Name Payer Address Payer Phone Subscriber Number Group Number Insured Name Patient Relationship to Insured Coverage Start Date Coverage End Date [facility] [address] [place] [address] [id number] JESSEE MASTERSON Self - patient is the insured 2 Medical (General) History Medical History History ICD Code Anxiety Depression Hypothyroidism ADHD-combined type precancerous cells on last pap Surgical History Surgery Date(Month/Year) Ear tubes Hospitalization History Reason Date(Month/Year) Child
--- OUTSIDE RECORDS SUMMARY | 2024-12-22 09:07 | XMS_ITS | Clinical Summary ---
Author Organization [facility] Address [address] [place] [address] Care Team Providers Care Director Funds Development Name Role Phone Chhaya Ceballos MD Primary Care Provider [phone] Franny Hager Unavailable Allergies No known active allergies Medications MV-Min-Fe Fum-FA-DHA ( 1 PO) Take by mouth. Active levothyroxine (Synthroid, Levoxyl) 200 MCG tabletIndication s:Thyroid disease Take 1 tablet (200 mcg) by mouth in the morning. 30 tablet 11 03/09/20 24 Active omeprazole (PriLOSEC) [address] [place] ns:Other specified related conditions, first trimester (HHS-HCC) Take 1 capsule by mouth once daily. 30 capsule 11 08/26/19 25 Active amphetamine-dext roamphetamine XR (Adderall XR) 10 MG 24 hr capsule Take 20 mg by mouth in the morning. Active Adderall 5 MG tablet Take 10 mg by mouth if needed 09/09/19 25 Active venlafaxine XR (Effexor XR) 150 MG 24 hr capsule Take 150 mg by mouth Daily 07/29/19 25 Active labetalol (Normodyne) 100 MG tabletIndication s:Pre-existing hypertension during , antepartum, unspecified pre-existing hypertension type (HHS-HCC) Take 1 tablet (100 mg) by mouth in the morning and 1 tablet (100 mg) before bedtime. 60 tablet 10/28/19 25 026 Active venlafaxine XR (Effexor XR) 37.5 MG 24 hr capsuleIndicatio ns:Anxiety and depression Take 1 capsule (37.5 mg) by mouth Daily Do not crush or chew. 30 capsule 11 03/08/20 24 025 Discontinued venlafaxine XR (Effexor XR) 75 MG 24 hr capsuleIndicatio ns:Anxiety and depression Take 2 capsules (150 mg) by mouth Daily Do not crush or chew. 60 capsule 11 04/06/20 24 025 Discontinued Active Problems Problem Noted Date Diagnosed Date Irregular menses 06/02/2023 Encounters Date Type Department Care Team Description 11/30/2024 2:40 PM [place] [address] Guillaume Vasquez, Low grade squamous intraepithelial lesion on cytologic smear of cervix (LGSIL); Pap smear with atypical squamous cells, cannot exclude high grade squamous intraepithelial lesion (ASC-H) 11/30/2024 [place] [address] Guillaume Vasquez DO 11/05/2024 Results [place] [address] DendingerJulioa, ADMISSIONS CONSULTANT IGP,APTIMA HPV,AGE GDLN 10/27/2024 [place] [address] Guillaume Vasquez, Pre-existing hypertension during , antepartum, unspecified pre-existing hypertension type ([facility]) 10/26/2024 9:00 AM EDT [place] [address] Guillaume Vasquez, Well woman exam with routine gynecological exam 10/26/2024 Clinisync Result Encounter NOMS External Department Unsolicited Guillaume VasquezDO 10/26/2024 Bamboo flowsheet [facility]T JENNINGS [address] [place] [address] Guillaume Vasquez DO from Last 3 Months Family History Medical [...] Sign Reading Time Taken Comments Blood Pressure 138/84 11/30/2024 2:55 PM EDT Pulse - - Temperature - - Respiratory Rate - - Oxygen Saturation - - Inhaled Oxygen Concentration - - Weight 82.6 kg (182 lb) 11/30/2024 2:55 PM EDT Height 182.9 cm (6') 10/26/2024 9:24 AM EDT Body Mass Index 24.68 10/26/2024 9:24 AM EDT Plan of Treatment Upcoming Encounters Date Type Department Care Team (Late st Contact Info) Description 01/11/2025 10:20 AM EDT Office Visit YAMILET JENNINGS [facility] [place] [address] Guillaume Vasquez DO [address] [place] [address] 11/01/2025 9:00 AM EDT Office Visit YAMILET JENNINGS [address] [place] [address] Guillaume Vasquez DO [address] [place], [place] [address] Health Maintenance Due Date Last Done Comments Influenza Vaccine (#1) 2024 4, 01/28/2023, 02/14/2022, Additional history exists Pap Smear 10/27/2027 10/26/2024, 10/21/2023 Cervical Cancer Screening 10/20/2028 HPV/Cotest 10/20/2028 02/22/2019 Procedures Procedure Name Priority Date/Time Associated Diagnosis Comments IGP,APTIMA HPV,AGE GDLN Routine 10/26/2024 9:13 AM EDT PAP SMEAR Routine 10/26/2024 12:00 AM EDT THINPREP TIS PAP REFLEX HPV MRNA E6/E7 (60999) Routine 02/22/2019 from Last 3 Months or Most Recently Relevant to Health Maintenance Results * (ABNORMAL) IGP,APTIMA HPV,AGE GDLN (10/26/2024 9:13 AM EDT) AGE GDLN ACOG TESTING Note . [facility] Comment: TESTS RESULT FLAG UNITS REF RANGE LAB Clinician Provided Cytology Information Source.............Cervix;Endocervix No. of containers..01 ThinPrep Vial Age Luis CABALLERO Anayeli... 30-65 FLAG LEGEND: L-Low Normal,H-High Normal,LL-Alert Low,HH-Alert High <-Panic Low,>-Panic High,A-Abnormal,AA-Critical Abnormal Performed at: 01 =[facility] [address] [place] [address] Gabrielle Luna MD, IGP, APTIMA HPV, RFX 16/18,45 Note(A) . [facility] Comment: TESTS RESULT FLAG UNITS REF RANGE LAB DIAGNOSIS: [A] 02 EPITHELIAL CELL ABNORMALITY. LOW GRADE SQUAMOUS INTRAEPITHELIAL LESION (LSIL). ATYPICAL SQUAMOUS CELLS, CANNOT EXCLUDE HIGH-GRADE SQUAMOUS INTRAEPITHELIAL LESION (ASC-H). Recommendation: [A] 02 Suggest colposcopy and biopsy if indicated. Specimen adequacy: 02 Satisfactory for evaluation. Endocervical and/or squamous metaplastic cells (endocervical component) are present. Performed by: 02 Terence Martinez, Roller Cleaner (ASCP) Electronically si... 02 Christine Alvarez MD, Pathologist . 02 Pathologist ICD10: 02 R87.612, R87.611 Note: Note 02 The Pap smear is a screening test designed to aid in the detection of premalignant and malignant conditions of the uterine cervix. It is not a diagnostic procedure and should not be used as the sole means of detecting cervical cancer. Both false-positive and false-negative reports do occur. Test Methodology: Note 02 This liquid based ThinPrep(R) pap test was screened with the use of an image guided system. HPV Genotype Reflex Note 02 Criteria not met, HPV Genotype not performed. FLAG LEGEND: L-Low Normal,H-High Normal,LL-Alert Low,HH-Alert High <-Panic Low,>-Panic High,A-Abnormal,AA-Critical Abnormal Performed at: [address] [address] Gabrielle Luna MD, HPV APTIMA Positive( A) Negative [facility] Comment: This nucleic acid amplification test detects fourteen high- risk HPV types (16,18,31,33,35,39,45,51,52,56,58,59,66,68) without differentiation. Performed at: =[address] [id number] Lawn Mower: Gabrielle Luna MD, Phone: [phone] Performed at: [address] [id number] Lawn Mower: Gabrielle Luna MD, Phone: [phone] 10/26/2024 9:13 AM EDT 10/26/2024 12:28 PM EDT Narrative [facility] - 10/30/2024 10:08 AM EDT BRUSH-SPATULA CERVIX ENDOCERVIX Guillaume Pedro DO LAB BLOOD ORDERABLES Final Resul t Performing Organization Address [facility] Co de Phone Number [facility] * (ABNORMAL) Pap Smear (10/26/2024 12:00 AM EDT) Swab Cervical swab / Unknown Guillaume Pedro DO LAB CYTOLOGY ORDERABLES Final Re sult Performing Organization Address [facility]/ZIP Co de Phone Number EXTERNAL LAB * THINPREP TIS PAP REFLEX HPV MRNA E6/E7 (24454) (02/22/2019) CLINICAL INFORMATION: None given [facility] [...] computer assisted technology. [facility] SALES EFFECTIVENESS MANAGER: SEE COMMENT [facility] Comment: [facility], CT(ASCP) CT screening location: [facility], [address] [place] [address]. PATHOLOGIST: SEE COMMENT [facility] Comment: Juarez Dorman M.D. Board Certified in Anatomic Pathology and Cytopathology (electronic signature) For questions regarding this report call Anatomic Pathology at [phone] Juarez Dorman MD, Software Quality Engineer [employer] [place], [place] COMMENT SEE COMMENT [facility] ACY [...] with historic and current clinical information. 02/22/2019 Yobany Art MD [facility] Final Result [facility] from Last 3 Months or Most Recently Relevant to Health Maintenance Insurance [employer] Care Teams Director Funds Development Relationship Specialty Start Date End Date Chhaya Ceballos MD PCP - General Family Medicine 03/04/23 Franny Hager PA [address] [place] [address] [place] [address] PCP - Medical [place] Commercial 07/10/18 04/20/99
--- OUTSIDE RECORDS SUMMARY | 2024-12-22 09:08 | XMS_ITS | Encounter Summary ---
Author Organization [facility] Address [address] [place] [address] Care Team Providers Care Coloring Machine Operator Name Role Phone Chhaya Ceballos Primary Care Provider + Emile Mesa MD Unavailable Guillaume Vasquez DO Unavailable [phone] Source Comments In the event this information is protected by the Federal Confidentiality of Alcohol and Drug AbusePatient Records regulations: The Federal rules restrict any use of the information to criminally investigate or prosecute any alcohol or drug abuse patient.[facility] Encounter Details Date Type Department Care Team (Late st Contact Info) Description 08/25/2023 Patient [facility] -[address] [place] [address] Noemi Chavez RPh Medication Refill(s) Past Due [...] is lower risk 9 02/25/2023 Data from: https://www.neighborhoodatlas.medicine.[facility].edu/. Last address used for calculation [...] on filedocumented in this encounter Care Teams Coloring Machine Operator Relationship Specialty Start Date End Date Chhaya Ceballos DO [address] [place] [address] PCP - General Family Medicine 07/25/22 Emile Mesa MD [address] [place] [address] [place] [address] Gastroenterology 07/25/22 Guillaume Vasquez DO [address] [place] [address] [place] [address] Weight Reduction Specialist 07/25/22 documented as of this encounter
--- OUTSIDE RECORDS SUMMARY | 2024-12-22 09:08 | XMS_ITS | Clinical Summary ---
Author Organization [employer] Address [id number] [address] [place] [address] Care Team Providers Care Data Processing Manager Name Role Phone Mely Castillo DO Primary Care Provider [phone] Allergies No known active allergies Medications * [...] Health Maintenance Due Date Last Done Comments Depression Screening 08/09/2023 08/08/2022 COVID-19 Vaccine (3 2023-2 5 season) 2023 05/15/2020, 04/17/2020 Adult BMI Screening 11/12/2024 11/13/2023 Tobacco Screening 11/12/2024 11/13/2023 Influenza Vaccine 12/20/2024 01/28/2023, , 01/18/2021, Additional history exists Pap Smear 10/20/2026 10/21/2023 DTaP,Tdap and Td Vaccines (4 - Td or Tdap) 01/04/2030 01/05/2020, 12/07/2018, 1990 [employer] Not on file Insurance [employer] Care Teams Data Processing Manager Relationship Specialty Start Date End Date Mely Castillo DO [address] [place] [address] PCP - General Family Medicine 07/02/19
--- OUTSIDE RECORDS SUMMARY | 2024-12-22 09:08 | XMS_ITS | Encounter Summary ---
Author Organization [facility] Address [address] [place] [address] Care Team Providers Care Fitness Professional Name Role Phone Chhaya Ceballos MD Primary Care Provider Franny Hager Unavailable Encounter Details Date Type Department Care Team (Late st Contact Info) Description 02/23/2024 Abstract [facility] [place] [place] [address] Guillaume Vasquez DO [address], [place] [address] Social History Tobacco Use Types Packs/Day Years [...] Office Visit YAMILET JENNINGS [address] [place] [address] Guillaume Vasquez DO [address], [facility] 11/01/2025 9:00 AM EDT Office Visit N[facility] Ketan JENNINGS [address] [place] [address] Guillaume Vasquez DO [address] [place] [address] documented as of this encounter Visit Diagnoses Not on filedocumented in this encounter Care Teams Fitness Professional Relationship Specialty Start Date End Date Chhaya Ceballos MD PCP - General Family Medicine 03/04/23 Franny Hager PA [address] [place] [address] PCP - Medical [place] [employer] [employer] 07/10/18 04/20/99 documented as of this encounter
--- OUTSIDE RECORDS SUMMARY | 2024-12-22 09:08 | XMS_ITS | Encounter Summary ---
Author Organization [facility] Address [address] [place] [address] Care Team Providers Care Balloon Dipper Name Role Phone Chhaya Ceballos MD Primary Care Provider Franny Hager Unavailable Encounter Details Date Type Department Care Team (Late st Contact Info) Description 02/16/2024 Clinisync Result Encounter [facility] External Department Unsolicited Tee Vasquez, [address] [place], [place] [phone] Social History Tobacco Use Types Packs/Day Years [...] 01/11/2025 10:20 AM EDT Office Visit [facility] [address] [place] [phone] Tee Vasquez DO [address] [place] [address] 11/01/2025 9:00 AM EDT Office Visit [facility] Ketan MOCKGYN [address] [facility] [place] [phone] Tee Vasquez DO [address] [facility] [place] [address] documented as of this encounter Procedures Procedure Name Priority Date/Time Associated Diagnosis Comments US OB BPP W NON-STRESS 02/16/2024 4:32 AM EDT documented in this encounter Results * US OB BPP W NON-STRESS (02/16/2024 4:32 AM EDT) Anatomical Region Laterality Modality Other 02/16/2024 4:32 AM EDT Narrative 02/16/2024 4:35 AM EDT The [address] [address] Ultrasound Report Signed Patient: JESSEE ALMODOVAR MR#: [id number] : 1990 Acct:[id number] Age/Sex: 34 / F ADM Date: 02/14/24 Loc: US Attending Dr: Tee Vasquez D.O. Ordering Physician: Tee Vasquez D.O. Date of Service: 02/14/24 Procedure(s): US OB BPP w non-stress Accession Number(s): [id number] cc: Tee Vasquez D.O.; Physician,Non-Staff M.DCristopher The [address] [address] Patient Name: JESSEE ALMODOVAR MRN: [id number] date: 1990 Sex: F Assigned Patient Location: [facility] Current Patient Location: US Accession/Order Number: [id number] Exam Date: 02/14/2024 13:15 Report Date: 02/16/2024 04:32 At the request of: TEE VASQUEZ Procedure: US OB BPP w non-stress [...] M.D. Signed By: 02/16/24434 DD/ 1 TD/TT: Color Corrector: Procedure Note Radiology, Radiologist, MD - 02/16/2024 [place] [address] Ultrasound Report Signed Patient: JESSEE ALMODOVAR BMR#: [id number] : 1990Acct:[id number] Age/Sex: 34 / FADM Date: 02/14/24 Loc: US Attending Dr: Tee Vasquez D.O. Ordering Physician: Tee Vasquez D.O. Date of Service: 02/14/24 Procedure(s): US OB BPP w non-stress Accession Number(s): [id number] cc: Tee Vasquez D.O.; Physician,Non-Staff Asim The [address] [address] Patient Name: JESSEE ALMODOVAR MRN: [id number] date: 1990 Sex: F Assigned Patient Location: [facility] Current Patient Location: US Accession/Order Number: [id number] Exam Date: 02/14/2024 13:15 Report Date: 02/16/2024 04:32 At the request of: TEE VASQUEZ Procedure: US OB BPP w non-stress [...] 04:32 Dictated By: Anand Gipson M.D. Signed By:02/16/24434 DD/ 1 TD/TT: Color Corrector: us Tee Pedro DO [facility] Final Result documented in this encounter Visit Diagnoses Not on filedocumented in this encounter Care Teams Balloon Dipper Relationship Specialty Start Date End Date Chhaya Ceballos MD PCP - General Family Medicine 03/04/23 Franny Hager PA [address] [place] [address] [place] [address] PCP - Medical [place] [employer] 07/10/18 04/20/99 documented as of this encounter
--- OUTSIDE RECORDS SUMMARY | 2024-12-22 09:08 | XMS_ITS | Encounter Summary ---
Author Organization [facility] Address [address] [place] [address] Care Team Providers Care Dehydrator Operator Name Role Phone Chhaya Ceballos MD Primary Care Provider Franny Hager Unavailable Encounter Details Date Type Department Care Team (Late st Contact Info) Description 01/28/2024 Clinisync Result Encounter [facility] External Department Unsolicited Tee Vasquez, [address] [place], [place] [phone] Social History Tobacco Use Types Packs/Day Years [...] Visit [facility] [address] [place] [phone] Tee Vasquez DO [address] [place] [address] 11/01/2025 9:00 AM EDT Office Visit [facility] Ketan MOCKGYMarge [address] [facility] [place] [phone] eTe Vasquez DO [address] [facility] [place] [address] documented as of this encounter Procedures Procedure Name Priority Date/Time Associated Diagnosis Comments US OB BPP W NON-STRESS 01/28/2024 10:20 AM EDT documented in this encounter Results * US OB BPP W NON-STRESS (01/28/2024 10:20 AM EDT) Anatomical Region Laterality Modality Other 01/28/2024 10:2 0 AM EDT Narrative 01/28/2024 10:22 AM EDT The [place] [id number] Ultrasound Report Signed Patient: JESSEE ALMODOVAR MR#: [id number] : 1990 Acct:[id number] Age/Sex: 33 / F ADM Date: 01/28/24 Loc: [facility] 252-[address]: Tee Vasquez D.O. Ordering Physician: Tee Vasquez D.O. Date of Service: 01/28/24 Procedure(s): US OB BPP w non-stress Accession Number(s): [id number] cc: Tee Vasquez D.O.; Physician,Non-Staff M.DCristopher The [address] [address] Patient Name: JESSEE ALMODOVAR MRN: [id number] date: 1990 Sex: F Assigned Patient Location: [facility] Current Patient Location: [facility] Accession/Order Number: [id number] Exam Date: 01/28/2024 09:20 Report Date: 01/28/2024 10:20 At the request of: TEE VASQUEZ Procedure: [...] Signed By: 01/28/24 1022 DD/ 1020 TD/TT: Stockroom Coordinator: Procedure Note Radiology, Radiologist, MD - 01/28/2024 [place] [address] Ultrasound Report Signed Patient: JESSEE ALMODOVAR BMR#: [id number] : 1990Acct:[id number] Age/Sex: 33 / FADM Date: 01/28/24 Loc: [facility] 252-[address]: Tee Vasquez D.O. Ordering Physician: Tee Vasquez D.O. Date of Service: 01/28/24 Procedure(s): US OB BPP w non-stress Accession Number(s): [id number] cc: Tee Vasquez D.O.; Physician,Non-Staff M.Zarina The [place] [id number] Patient Name: JESSEE ALMODOVAR MRN: [id number] date: 1990 Sex: F Assigned Patient Location: [facility] Current Patient Location: [facility] Accession/Order Number: [id number] Exam Date: 01/28/2024 09:20 Report Date: 01/28/2024 10:20 At the request of: TEE VASQUEZ Procedure: [...] M.D. Signed By:01/28/24 1022 DD/ 1020 TD/TT: Stockroom Coordinator: us Tee Pedro DO [facility] Final Result documented in this encounter Visit Diagnoses Not on filedocumented in this encounter Care Teams Dehydrator Operator Relationship Specialty Start Date End Date Chhaya Ceballos MD PCP - General Family Medicine 03/04/23 Franny Hager PA [address] [place] [address] [place] [address] PCP - Medical [place] [employer] 07/10/18 04/20/99 documented as of this encounter
--- OUTSIDE RECORDS SUMMARY | 2024-12-22 09:08 | XMS_ITS | Encounter Summary ---
Author Organization [facility] Address [address] [place] [address] Care Team Providers Care Diagrammer Name Role Phone Chhaya Ceballos MD Primary Care Provider Franny Hager Unavailable Encounter Details Date Type Department Care Team (Late st Contact Info) Description 02/09/2024 Clinisync Result Encounter [facility] External Department Unsolicited Tee Vasquez, [address] [place], [place] [phone] Social History Tobacco Use Types Packs/Day Years [...] Visit [facility] [place] [facility] [address] [place] [phone] Tee Vasquez DO [address] [place] [address] 11/01/2025 9:00 AM EDT Office Visit [facility] Ketan MOCKGYMarge [address] [facility] [place] [phone] Tee Vasquez DO [address] [facility] [place] [address] documented as of this encounter Procedures Procedure Name Priority Date/Time Associated Diagnosis Comments US OB BPP W NON-STRESS 02/09/2024 7:33 AM EDT documented in this encounter Results * US OB BPP W NON-STRESS (02/09/2024 7:33 AM EDT) Anatomical Region Laterality Modality Other 02/09/2024 7:33 AM EDT Narrative 02/09/2024 7:36 AM EDT The [address] [address] Ultrasound Report Signed Patient: JESSEE ALMODOVAR MR#: [id number] : 1990 Acct:[id number] Age/Sex: 33 / F ADM Date: 02/07/24 Loc: US Attending Dr: Tee Vasquez D.O. Ordering Physician: Tee Vasquez D.O. Date of Service: 02/07/24 Procedure(s): US OB BPP w non-stress Accession Number(s): [id number] cc: Tee Vasquez D.O.; Physician,Non-Staff M.DCristopher The [address] [address] Patient Name: JESSEE ALMODOVAR MRN: [id number] date: 1990 Sex: F Assigned Patient Location: US Current Patient Location: US Accession/Order Number: [id number] Exam Date: 2024 13:01 Report Date: 02/09/2024 07:33 At the request of: TEE VASQUEZ Procedure: [...] M.D. Signed By: 02/09/24735 DD/ 2 TD/TT: Motor Scooter Mechanic: Procedure Note Radiology, Radiologist, - 02/09/2024 [place] [address] Ultrasound Report Signed Patient: JESSEE ALMODOVAR BMR#: [id number] : 1990Acct:[id number] Age/Sex: 33 / FADM Date: 02/07/24 Loc: US Attending Dr: Tee Vasquez D.O. Ordering Physician: Tee Vasquez D.O. Date of Service: 02/07/24 Procedure(s): US OB BPP w non-stress Accession Number(s): [id number] cc: Tee Vasquez D.O.; Physician,Non-Staff MUriah The [place] [id number] Patient Name: JESSEE ALMODOVAR MRN: [id number] date: 1990 Sex: F Assigned Patient Location: US Current Patient Location: US Accession/Order Number: [id number] Exam Date: 2024 13:01 Report Date: 02/09/2024 07:33 At the request of: TEE VASQUEZ Procedure: [...] Stewart M.D. Signed By:02/09/24735 DD/ 2 TD/TT: Motor Scooter Mechanic: us Tee Pedro DO [facility] Final Result documented in this encounter Visit Diagnoses Not on filedocumented in this encounter Care Teams Diagrammer Relationship Specialty Start Date End Date Chhaya Ceballos MD PCP - General Family Medicine 03/04/23 Franny Hager PA [address] [place] [address] [place] [address] PCP - Medical [place] [employer] 07/10/18 04/20/99 documented as of this encounter
--- OUTSIDE RECORDS SUMMARY | 2024-12-22 09:08 | XMS_ITS | Encounter Summary ---
Author Organization [facility] Address [address] [place] [address] Care Team Providers Care Shingle Catcher Name Role Phone Chhaya Ceballos MD Primary Care Provider [phone] Franny Hager Unavailable Encounter Details Date Type Department Care Team (Late st Contact Info) Description 02/05/2024 Abstract YAMILET JENNINGS [facility] [place] [address] Guillaume Vasquez DO [address], [place] [address] Social History Tobacco Use Types Packs/Day Years [...] Office Visit YAMILET JENNINGS [address] [place] [address] Guillaume Vasquez DO [address], [facility] 11/01/2025 9:00 AM EDT Office Visit [facility]S Ketan JENNINGS [address] [facility] [place] [address] Guillaume Vasquez DO [address] [facility] [place] [address] documented as of this encounter Visit Diagnoses Not on filedocumented in this encounter Care Teams Shingle Catcher Relationship Specialty Start Date End Date Chhaya Ceballos MD PCP - General Family Medicine 03/04/23 Franny Hager PA [address] [facility] [place] [address] PCP - Medical [place] [employer] 07/10/18 04/20/99 documented as of this encounter
--- OUTSIDE RECORDS SUMMARY | 2024-12-22 09:08 | XMS_ITS | Encounter Summary ---
Author Organization [facility] Address [address] [place] [address] Care Team Providers Care Run Boat Operator Name Role Phone Chhaya Ceballos MD Primary Care Provider Franny Hager Unavailable Encounter Details Date Type Department Care Team (Late st Contact Info) Description 02/10/2024 Abstract YAMILET JENNINGS [facility] [place] [address] Guillaume Vasquez DO [address], [id number] Social History Tobacco Use Types Packs/Day Years [...] Office Visit YAMILET JENNINGS [address] [place] [address] Guillaume Vasquez DO [address], [id number] 11/01/2025 9:00 AM EDT Office Visit [facility] Ketan JENNINGS [address] [facility] [place] [address] Guillaume Vasquez DO [address] [facility] [place] [address] documented as of this encounter Visit Diagnoses Not on filedocumented in this encounter Care Teams Run Boat Operator Relationship Specialty Start Date End Date Chhaya Ceballos MD PCP - General Family Medicine 03/04/23 Franny Hager PA [address] [facility] [place] [address] PCP - Medical [place] [employer] 07/10/18 04/20/99 documented as of this encounter
--- OUTSIDE RECORDS SUMMARY | 2024-12-22 09:08 | XMS_ITS | Encounter Summary ---
Author Organization [facility] Address [address] [place] [address] Care Team Providers Care Ward Secretary Name Role Phone Chhaya Ceballos MD Primary Care Provider Franny Hager Unavailable Encounter Details Date Type Department Care Team (Late Contact Info) Description 11/20/2023 Abstract YAMILET JENNINGS [facility] [address] Guillaume Vasquez DO [address], [place] [address] Social History Tobacco Use Types Packs/Day Years [...] Office Visit YAMILET JENNINGS [address] [place] [address] Guillaume Vasquez DO [address], [facility] 11/01/2025 9:00 AM EDT Office Visit [facility]S Ketan JENNINGS [address] [facility] [place] [address] Guillaume Vasquez DO [address] [facility] [place] [address] documented as of this encounter Visit Diagnoses Not on filedocumented in this encounter Care Teams Ward Secretary Relationship Specialty Start Date End Date Chhaya Ceballos MD PCP - General Family Medicine 03/04/23 Franny Hager PA [address] [place] [address] PCP - Medical [place] [employer] 07/10/18 04/20/99 documented as of this encounter
--- OUTSIDE RECORDS SUMMARY | 2024-12-22 09:08 | XMS_ITS | Encounter Summary ---
Author Organization [facility] Address [address] [place] [address] Care Team Providers Care Supplier Specialist Name Role Phone Chhaya Ceballos MD Primary Care Provider Franny Hager Unavailable Encounter Details Date Type Department Care Team (Late st Contact Info) Description 07/23/2024 Abstract YAMILET JENNINGS [facility] [place] [address] Guillaume Vasquez DO [address], [place] [address] Social History Tobacco Use Types Packs/Day Years [...] Office Visit YAMILET JENNINGS [address] [place] [address] Guillaume Vasquez DO [address], [id number] 11/01/2025 9:00 AM EDT Office Visit [facility] Ketan JENNINGS [address] [facility] [place] [address] Guillaume Vasquez DO [address] [facility] [place] [address] documented as of this encounter Visit Diagnoses Not on filedocumented in this encounter Care Teams Supplier Specialist Relationship Specialty Start Date End Date Chhaya Ceballos MD PCP - General Family Medicine 03/04/23 Franny Hager PA [address] [facility] [place] [address] PCP - Medical [place] [employer] 07/10/18 04/20/99 documented as of this encounter
--- OUTSIDE RECORDS SUMMARY | 2024-12-22 09:08 | XMS_ITS | Encounter Summary ---
Author Organization [facility] Address [address] [place] [address] Care Team Providers Care Deposition Operator Name Role Phone Chhaya Ceballos MD Primary Care Provider Franny Hager Unavailable Encounter Details Date Type Department Care Team (Late st Contact Info) Description 02/22/2024 Clinisync Result Encounter NOMS External Department Unsolicited Tee Vasquez, [address] [place], [place] [phone] Social History Tobacco Use Types Packs/Day Years [...] Visit [facility] [place] [facility] [address] [place] [phone] Tee Vasquez DO [address] [place] [address] 11/01/2025 9:00 AM EDT Office Visit [facility] Ketan MOCKGYN [address] [place] [address] Tee Vasquez DO [address] [place] [address] documented as of this encounter Procedures Procedure Name Priority Date/Time Associated Diagnosis Comments US OB BPP W NON-STRESS 02/22/2024 8:40 AM EST documented in this encounter Results * US OB BPP W NON-STRESS (02/22/2024 8:40 AM EST) Anatomical Region Laterality Modality Other 02/22/2024 8:40 AM EST Narrative 02/22/2024 8:42 AM EST The [address] [address] Ultrasound Report Signed Patient: JESSEE ALMODOVAR MR#: [id number] : 1990 Acct:[id number] Age/Sex: 34 / F ADM Date: 02/21/24 Loc: [facility] Attending Dr: Tee Vasquez D.O. Ordering Physician: Tee Vasquez D.O. Date of Service: 02/21/24 Procedure(s): US OB BPP w non-stress Accession Number(s): [id number] cc: Tee Vasquez D.O.; Physician,Non-Staff M.DCristopher The [address] [address] Patient Name: JESSEE ALMODOVAR MRN: [id number] date: 1990 Sex: F Assigned Patient Location: [facility] Current Patient Location: Accession/Order Number: [id number] Exam Date: 02/21/2024 13:06 Report Date: 02/22/2024 08:40 At the request of: TEE VASQUEZ Procedure: [...] Dictated By: Anand Gipson M.D. Signed By: 02/22/24841 DD/ 9 TD/TT: Chinese Instructor: Procedure Note Radiology, Radiologist, MD - 02/22/2024 [place] [address] Ultrasound Report Signed Patient: JESSEE ALMODOVAR BMR#: [id number] : 1990Acct:[id number] Age/Sex: 34 / FADM Date: 02/21/24 Loc: [facility] Attending Dr: Tee Vasquez D.O. Ordering Physician: Tee Vasquez D.O. Date of Service: 02/21/24 Procedure(s): US OB BPP w non-stress Accession Number(s): [id number] cc: Tee Vasquez D.O.; Physician,Non-Staff Asim The [place] [id number] Patient Name: JESSEE ALMODOVAR MRN: [id number] date: 1990 Sex: F Assigned Patient Location: [facility] Current Patient Location: Accession/Order Number: [id number] Exam Date: 02/21/2024 13:06 Report Date: 02/22/2024 08:40 At the request of: TEE VASQUEZ Procedure: [...] 08:40 Dictated By: Anand Gipson M.D. Signed By:02/22/24841 DD/ 9 TD/TT: Chinese Instructor: us Tee Pedro DO [facility] Final Result documented in this encounter Visit Diagnoses Not on filedocumented in this encounter Care Teams Deposition Operator Relationship Specialty Start Date End Date Chhaya Ceballos MD PCP - General Family Medicine 03/04/23 Franny Hager PA [address] [place] [address] [place] [address] PCP - Medical [place] [employer] 07/10/18 04/20/99 documented as of this encounter
--- OUTSIDE RECORDS SUMMARY | 2024-12-22 09:08 | XMS_ITS | Clinical Summary ---
Author Organization [facility] Address [address] [place] [address] Care Team Providers Care Principal Bioinformatics Specialist Name Role Phone LinJoebarbara Mathuryn Primary Care Provider + Emile Mesa MD Unavailable Guillaume Vasquez DO Unavailable [phone] Allergies No known active allergies Medications mupirocin (BACTROBAN) 2 % ointment Apply to affected area three times a day 22 g 09/13/19 22 8:35 AM EDT 022 Active omeprazole (PRILOSEC) 40 mg capsule Take 1 capsule by mouth once daily in the morning, wait 20-30 minutes before eating or taking other medications 90 capsule 1 03/29/20 22 2:57 PM EST 022 Active BIOTIN ORAL Take by mouth. Act thuan PNV no.95/ferrous fum/folic ac ( ORAL) Take by mouth. Active omeprazole (PRILOSEC) 20 mg capsule Take 1 tablet by mouth once daily in the morning, 20-30 minutes before eating or taking other medications 30 capsule 2 10/12/19 23 11:45 AM EDT 023 Active lisinopril (ZESTRIL) 40 mg tablet Take 1 tablet by mouth once daily. 90 tablet 3 03/27/20 23 11:00 AM EST 023 Active omeprazole (PRILOSEC) 20 mg capsule Take 1 capsule by mouth twice daily. 180 capsule 1 02/22/20 23 2:52 PM EDT 023 Active levothyroxine (SYNTHROID) 200 mcg tablet Take 1 tablet by mouth once daily. 90 tablet 03/27/20 11:00 AM EST 023 Active traZODone (DESYREL) 50 mg tablet Take 1 tablet (50 mg total) by mouth at bedtime as needed for sleep. 30 tablet 6 03/07/20 3:51 PM EST 023 Active amphetamine-dextr oamphetamine XR (ADDERALL XR) 20 mg capsule Take 1 capsule (20 mg total) by mouth in the morning for 15 days. Max Daily Amount: 20 mg. 15 capsule 02/14/20 8:31 AM EDT 023 Active amphetamine-dextr oamphetamine XR (ADDERALL XR) 30 mg capsule Take 1 capsule (30 mg total) by mouth in the morning for 15 days. Max Daily Amount: 30 mg. 15 capsule 02/28/20 10:45 AM EST 023 Active traZODone (DESYREL) 100 mg tablet Take 1 tablet (100 mg total) by mouth nightly as needed for sleep. 30 tablet 3 02/28/20 10:45 AM EST 023 Active doxycycline hyclate (VIBRAMYCIN) 100 mg capsule Take 1 capsule (100 mg) by mouth in the morning and 1 capsule (100 mg) before bedtime. Do all this for 7 days. Take with at least 8 ounces (large glass) of water, do not lie down for 30 minutes after. 14 capsule 03/05/20 3:59 PM EST 023 Active Desogestrel-Ethin yl Estradiol 0.15-0.03 mg per tablet Take 1 tablet by mouth once daily. 90 tablet 06/04/19 11:54 AM EST 024 Active traZODone (DESYREL) 100 mg tablet Take 1 tablet (100 mg total) by mouth nightly as needed for sleep. 30 tablet 6 07/07/19 3:45 PM EDT 024 Active lisinopril (ZESTRIL) 40 mg tablet Take 1 tablet by mouth once daily. 90 tablet 1 07/16/19 8:58 AM EDT 024 Active ondansetron orally disintegrating (ZOFRAN ODT) 4 mg disintegrating tablet Take 1 tablet (4 mg) by mouth every 6 (six) hours if needed for nausea or vomiting for up to 14 days 54 tablet 08/18/19 24 9:47 AM EDT Active omeprazole (PRILOSEC) 20 mg capsule Take 1 capsule (20 mg) by mouth at bedtime Do not crush or chew. 30 capsule 11 07/29/19 24 8:52 AM EDT 024 Active metroNIDAZOLE (FLAGYL) 500 mg tablet Take 1 tablet (500 mg) by mouth in the morning and 1 tablet (500 mg) before bedtime. Do all this for 7 days. Do not drink alcohol while taking this medication. 14 tablet 10/22/19 24 1:11 PM EDT Active terconazole (TERAZOL 7) 0.4 % vaginal cream Insert 1 applicator into the vagina at bedtime for 7 days 45 g 024 Active levothyroxine (SYNTHROID) 25 mcg tablet Take 1 tablet (25 mcg) by mouth in the morning. Take before meals. 30 tablet 11 03/26/20 24 3:32 PM EST Active levothyroxine (SYNTHROID) 25 mcg tablet Take 2 tablets by mouth on Mon, Wed, Fri and 1 tablet by mouth on , , Fri, and Sun 60 tablet 2 02/20/20 24 2:47 PM EDT Active Polysaccharide Iron Complex (PRO FE) 180 mg iron cap Take 1 capsule by mouth once daily 90 capsule 01/28/20 24 11:14 AM EDT 024 Active docusate sodium (COLACE) 100 mg capsule Take 1 capsule (100 mg) by mouth 2 (two) times a day as needed for constipation 30 capsule 5 01/28/20 24 11:14 AM EDT 024 Active magnesium oxide (MAG-OX) 400 mg (241.3 mg magnesium) tablet Take 1 tablet (400 mg) by mouth Daily 90 tablet 01/28/20 24 11:14 AM EDT 024 Active venlafaxine ER (EFFEXOR XR) 37.5 mg 24 hr capsule Take 1 capsule (37.5 mg) by mouth Daily Do not crush or chew. 30 capsule 11 04/07/20 9:22 AM EST Active levothyroxine (SYNTHROID) 200 mcg tablet Take 1 tablet (200 mcg) by mouth in the morning. 30 tablet 11 11/27/19 12:42 PM EDT 024 Active venlafaxine ER (EFFEXOR XR) 75 mg 24 hr capsule Take 2 capsules (150 mg) by mouth Daily Do not crush or chew. 60 capsule 11 07/27/19 3:51 PM EDT 024 Active omeprazole (PRILOSEC) 40 mg capsule Take 1 capsule by mouth once daily. 30 capsule 11 11/27/19 12:42 PM EDT 025 Active labetalol (TRANDATE) 100 mg tablet Take 1 tablet (100 mg) by mouth in the morning and 1 tablet (100 mg) before bedtime. 60 tablet 11/27/19 12:42 PM EDT 025 Active dextroamphetamine -amphetamine (ADDERALL) 10 mg tablet Take 1 tablet by mouth once daily in the afternoon. 30 tablet 12/16/19 9:52 AM EDT 025 Active amphetamine-dextr oamphetamine XR (ADDERALL XR) 20 mg capsule Take 1 capsule by mouth every morning. 30 capsule 12/16/19 9:52 AM EDT 025 Active traZODone (DESYREL) 50 mg tablet Take 1 tablet by mouth daily at bedtime. 30 tablet 12/16/19 9:52 AM EDT 025 Active venlafaxine ER (EFFEXOR XR) 150 mg 24 hr capsule Take 1 capsule by mouth once a day 30 capsule 2 12/16/19 9:52 AM EDT 025 Active dextroamphetamine -amphetamine (ADDERALL) 10 mg tablet Take 1 tablet by mouth once daily. 30 tablet 11/16/19 11:57 AM EDT 025 2024 Discontinued amphetamine-dextr oamphetamine XR (ADDERALL XR) 20 mg capsule Take 1 capsule by mouth once daily. 30 capsule 11/16/19 11:57 AM EDT 025 2024 Discontinued Active Problems Problem Noted Date Diagnosed [...] is lower risk 9 02/25/2023 Data from: https://www.neighborhoodatlas.medicine.[facility].edu/. Last address used for calculation 5 [place] [...] - PCV) 2010 Cervical Cancer Screening 02/08/2012 HPV Vaccine (1 - 3-dose SCDM series) 2018 Influenza Vaccine (#1) 2024 4, 01/28/2023, 02/14/2022, Additional history exists DTaP,Tdap,Td Vaccine [...] (Ag/Ab) Nonreactive Nonreactive 08/10/2023 11:33 AM EDT [facility] HIV-1/2 AB (Confirmatory) 08/10/2023 11:33 AM EDT [facility] Comment:Test not indicated. HIV Interpretation 08/10/2023 11:33 AM EDT [facility] Comment: No evidence of HIV-1 or HIV-2 infection. Should recent infection be suspected, repeat testing may be considered 2-3 weeks after this draw. [place] Rev. Code 3701.243(E): This information has been [...] PM EDT 08/08/2023 1:07 PM EDT Guillaume R Pedro DO LABORATORY Final Result Performing Organization Address [facility] Co de Phone Number [facility] [place] [phone], * HEPATITIS C ANTIBODY IA WITH CONFIRMATION (08/08/2023 1:07 PM EDT) [facility] Hep C Antibody IA Negative Negative 08/10/2023 1:39 PM EDT [facility] Comment:The result suggests no evidence of active infection with Hepatitis C virus. Should recent infection be suspected, repeat testing may be considered 4-6 weeks after this draw. Blood BLOOD SPECIMEN / Unknown Venipuncture / Unknown 08/08/2023 1:07 PM EDT 08/08/2023 1:07 PM EDT Guillaume R Pedro DO LABORATORY Final Result Performing Organization Address [facility] Co de Phone Number [facility] [place] [phone], from Last 3 Months or Most Recently Relevant to Health Maintenance Insurance [facility] PPO Care Teams Principal Bioinformatics Specialist Relationship Specialty Start Date End Date Chhaya Ceballos DO [address] [place] [address] [place] [address] PCP - General Family Medicine 07/25/22 Emile Mesa MD [address] [place] [address] Gastroenterology 07/25/22 Guillaume Vasquez DO [address] [place] [address] [place] [address] Drum Straightener 07/25/22
--- OUTSIDE RECORDS SUMMARY | 2024-12-22 09:08 | XMS_ITS | Encounter Summary ---
Author Organization [facility] Address [address] [place] [address] Care Team Providers Care Automobile Accessories Installer Name Role Phone Chhaya Ceballos MD Primary Care Provider [phone] Franny Hager Unavailable Encounter Details Date Type Department Care Team (Late st Contact Info) Description 02/17/2024 Abstract YAMILET JENNINGS [facility] [place] [address] Guillaume Vasquez DO [address], [place] [address] Social History Tobacco Use Types Packs/Day Years [...] Office Visit YAMILET JENNINGS [address] [place] [address] Guillaume Vasquez DO [address], [id number] 11/01/2025 9:00 AM EDT Office Visit [facility] Ketan JENNINGS [address] [place] [address] Guillaume Vasquez DO [address] [place] [address] documented as of this encounter Visit Diagnoses Not on filedocumented in this encounter Care Teams Automobile Accessories Installer Relationship Specialty Start Date End Date Chhaay Ceballos MD PCP - General Family Medicine 03/04/23 Franny Hager PA [address] [place] [address] PCP - Medical [place] [employer] 07/10/18 04/20/99 documented as of this encounter
--- OUTSIDE RECORDS SUMMARY | 2024-12-22 09:08 | XMS_ITS | Encounter Summary ---
Author Organization [facility] Address [address] [place] [address] Care Team Providers Care Zig Zag Stitcher Name Role Phone Chhaya Ceballos MD Primary Care Provider [phone] Franny Hager Unavailable Encounter Details Date Type Department Care Team (Late st Contact Info) Description 02/06/2024 Abstract YAMILET JENNINGS [facility] [place] [address] Guillaume Vasquez DO [address], [place] [address] Social History Tobacco Use Types Packs/Day Years [...] Office Visit YAMILET JENNINGS [address] [place] [address] Guillaume Vasquez DO [address], [id number] 11/01/2025 9:00 AM EDT Office Visit [facility] Ketan JENNINGS [address] [place] [address] Guillaume Vasquez DO [address] [facility] [place] [address] documented as of this encounter Visit Diagnoses Not on filedocumented in this encounter Care Teams Zig Zag Stitcher Relationship Specialty Start Date End Date Chhaya Ceballos MD PCP - General Family Medicine 03/04/23 Franny Hager PA [address] [facility] [place] [address] PCP - Medical [place] [employer] 07/10/18 04/20/99 documented as of this encounter
--- OUTSIDE RECORDS SUMMARY | 2024-12-22 09:08 | XMS_ITS | Encounter Summary ---
Author Organization [facility] Address [address] [place] [address] Care Team Providers Care Private Advisor Name Role Phone Chhaya Ceballos MD Primary Care Provider Franny Hager Unavailable Encounter Details Date Type Department Care Team (Late st Contact Info) Description 01/18/2024 Clinisync Result Encounter [facility] External Department Unsolicited Tee Vasquez, [address], [place] [id number] Social History Tobacco Use Types Packs/Day Years [...] Visit NOMAnil [place] [facility] [address] [place] [phone] Tee Vasquez DO [address] [place] [address] 11/01/2025 9:00 AM EDT Office Visit [facility] Ketan MOCKGYMarge [address] [place] [address] Tee Vasquez DO [address] [facility] [place] [address] documented as of this encounter Procedures Procedure Name Priority Date/Time Associated Diagnosis Comments US OB BPP W NON-STRESS 01/18/2024 6:52 AM EDT documented in this encounter Results * US OB BPP W NON-STRESS (01/18/2024 6:52 AM EDT) Anatomical Region Laterality Modality Other 01/18/2024 6:52 AM EDT Narrative 01/18/2024 6:55 AM EDT The [place] [id number] Ultrasound Report Signed Patient: JESSEE ALMODOVAR MR#: [id number] : 1990 Acct:[id number] Age/Sex: 33 / F ADM Date: 01/17/24 Loc: US Attending Dr: Tee Vasquez D.O. Ordering Physician: Tee Vasquez D.O. Date of Service: 01/17/24 Procedure(s): US OB BPP w non-stress Accession Number(s): [id number] cc: Tee Vasquez D.O.; Physician,Non-Staff M.DCristopher The [address] [address] Patient Name: JESSEE ALMODOVAR MRN: [id number] date: 1990 Sex: F Assigned Patient Location: US Current Patient Location: US Accession/Order Number: [id number] Exam Date: 01/17/2024 13:30 Report Date: 01/18/2024 06:52 At the request of: TEE VASQUEZ Procedure: [...] Anand Gipson M.D. Signed By: 01/18/2455 DD/ TD/TT: Wage And Salary Administrator: Procedure Note Radiology, Radiologist, MD - 01/18/2024 [place] [address] Ultrasound Report Signed Patient: JESSEE ALMODOVAR BMR#: [id number] : 1990Acct:[id number] Age/Sex: 33 / FADM Date: 01/17/24 Loc: US Attending Dr: Tee Vasquez D.O. Ordering Physician: Tee Vasquez D.O. Date of Service: 01/17/24 Procedure(s): US OB BPP w non-stress Accession Number(s): [id number] cc: Tee Vasquez D.O.; Physician,Non-Staff Asim The [place] [id number] Patient Name: JESSEE ALMODOVAR MRN: [id number] date: 1990 Sex: F Assigned Patient Location: US Current Patient Location: US Accession/Order Number: [id number] Exam Date: 01/17/2024 13:30 Report Date: 01/18/2024 06:52 At the request of: TEE VASQUEZ Procedure: [...] By: Anand Gipson M.D. Signed By:01/18/2455 DD/ 1 TD/TT: Wage And Salary Administrator: us Tee Pedro DO [facility] Final Result documented in this encounter Visit Diagnoses Not on filedocumented in this encounter Care Teams Private Advisor Relationship Specialty Start Date End Date Chhaya Ceballos MD PCP - General Family Medicine 03/04/23 Franny Hager PA [address] [place] [address] [place] [address] PCP - Medical [place] [employer] 07/10/18 04/20/99 documented as of this encounter
--- OUTSIDE RECORDS SUMMARY | 2024-12-22 09:08 | XMS_ITS | Encounter Summary ---
Author Organization [facility] Address [address] [place] [address] Care Team Providers Care Sales Supervisor Name Role Phone Chhaya Ceballos MD Primary Care Provider Franny Hager Unavailable Encounter Details Date Type Department Care Team (Late Contact Info) Description 08/11/2023 Abstract YAMILET JENNINGS [address] [place] [address] Lisa Montes LPN [address] [facility] Adriana [place] [facility]11 Social History Tobacco Use Types Packs/Day [...] 10:20 AM EDT Office Visit YAMILET JENNINGS [facility] [place] [place] [address] Guillaume Vasquez DO [address] [address] 11/01/2025 9:00 AM EDT Office Visit [facility] Ketan JENNINGS [address] [facility] [place] [address] Guillaume Vasquez DO [address] [facility] [place] [address] documented as of this encounter Visit Diagnoses Not on filedocumented in this encounter Care Teams Sales Supervisor Relationship Specialty Start Date End Date Chhaya Ceballos MD PCP - General Family Medicine 03/04/23 Franny Hager PA [address] [facility] [place] [address] PCP - Medical [place] [employer] 07/10/18 04/20/99 documented as of this encounter
--- OUTSIDE RECORDS SUMMARY | 2024-12-22 09:08 | XMS_ITS | Encounter Summary ---
Author Organization [facility] Address [address] [place] [address] Care Team Providers Care Auto Body Shop Manager Name Role Phone Chhaya Ceballos MD Primary Care Provider [phone] Franny Hager Unavailable Encounter Details Date Type Department Care Team (Late st Contact Info) Description 11/21/2023 Abstract YAMILET JENNINGS [facility] [place] [address] Guillaume Vasquez DO [address], [place] [address] Social History Tobacco Use Types Packs/Day Years [...] Office Visit YAMILET JENNINGS [address] [place] [address] Guillaume Vasquez DO [address], [facility] 11/01/2025 9:00 AM EDT Office Visit [facility] Ketan JENNINGS [address] [facility] [place] [address] Guillaume Vasquez DO [address] [facility] [place] [address] documented as of this encounter Visit Diagnoses Not on filedocumented in this encounter Care Teams Auto Body Shop Manager Relationship Specialty Start Date End Date Chhaya Ceballos MD PCP - General Family Medicine 03/04/23 Franny Hager PA [address] [facility] [place] [address] PCP - Medical [place] Commercial 07/10/18 04/20/99 documented as of this encounter
--- OUTSIDE RECORDS SUMMARY | 2024-12-22 09:08 | XMS_ITS | Encounter Summary ---
Author Organization [facility] Address [id number] [address] [place] [address] Care Team Providers Care Care Advocate Name Role Phone Mely Castillo DO Primary Care Provider [phone] Encounter Details Date Type Department Care Team (Late st Contact Info) Description 03/25/2023 Orders Only [facility] [address] [place] [address] Mei Schaefer, FIELD PROJECT MANAGER-TRIBAL COUNCIL MEMBER [address] [place] [address] Social History Tobacco Use Types Packs/Day Years [...] documented as of this encounter Care Teams Care Advocate Relationship Specialty Start Date End Date Mely Castillo DO [address] [place] [address] PCP - General Family Medicine 07/02/19 documented as of this encounter
--- OUTSIDE RECORDS SUMMARY | 2024-12-22 09:08 | XMS_ITS | Encounter Summary ---
Author Organization [facility] Address [address] [place] [address] Care Team Providers Care Hook Puller Name Role Phone Chhaya Ceballos MD Primary Care Provider [phone] Franny Hager Unavailable Encounter Details Date Type Department Care Team (Late st Contact Info) Description 10/27/2023 Orders Only YAMILET JENNINGS [address] [place] [address] Angela Weir MA [address] [place] [address] Social History Tobacco Use Types Packs/Day Years [...] AM EDT Office Visit NOMAnil JENNINGS [address] [place] [address] Guillaume Vasquez DO [address] [place] [address] [place], [place] [address] 11/01/2025 9:00 AM EDT Office Visit YAMILET JENNINGS [address] [place] [phone] Guillaume Vasquez DO [address], [place] [address] documented as of this encounter Procedures Procedure Name Priority Date/Time Associated Diagnosis Comments PAP SMEAR Routine 10/21/2023 12:00 AM EDT documented in this encounter Results * Pap Smear (10/21/2023 12:00 AM EDT) Swab Cervical swab / Unknown Guillaume Vasquez DO LAB CYTOLOGY ORDERABLES Final Re sult EXTERNAL LAB documented in this encounter Visit Diagnoses Not on filedocumented in this encounter Care Teams Hook Puller Relationship Specialty Start Date End Date Chhaya Ceballos MD PCP - General Family Medicine 03/04/23 Franny Hager PA [address] [place], [place] [phone] PCP - Medical [place] Commercial 07/10/18 04/20/99 documented as of this encounter
--- OUTSIDE RECORDS SUMMARY | 2024-12-22 09:08 | XMS_ITS | Encounter Summary ---
Author Organization [facility] Address [address] [place] [address] Care Team Providers Care Sectional Belt Mold Assembler Name Role Phone Chhaya Ceballos MD Primary Care Provider [phone] Franny Hager Unavailable Encounter Details Date Type Department Care Team (Late st Contact Info) Description 01/25/2024 Clinisync Result Encounter [facility] External Department Unsolicited Tee Vasquez, [address], [place] [address] Social History Tobacco Use Types Packs/Day Years [...] Visit NOMAnil [place] [facility] [address] [place] [address] Tee Vasquez DO [address] [place] [address] 11/01/2025 9:00 AM EDT Office Visit [facility] Ketan MOCKGYN [address] [place] [address] Tee Vasquez DO [address] [facility] [place] [address] documented as of this encounter Procedures Procedure Name Priority Date/Time Associated Diagnosis Comments US OB BPP W NON-STRESS 01/25/2024 6:17 AM EDT documented in this encounter Results * US OB BPP W NON-STRESS (01/25/2024 6:17 AM EDT) Anatomical Region Laterality Modality Other 01/25/2024 6:17 AM EDT Narrative 01/25/2024 6:20 AM EDT The [address] [address] Ultrasound Report Signed Patient: JESSEE ALMODOVAR MR#: [id number] : 1990 Acct:[id number] Age/Sex: 33 / F ADM Date: 01/24/24 Loc: US Attending Dr: Tee Vasquez D.O. Ordering Physician: Tee Vasquez D.O. Date of Service: 01/24/24 Procedure(s): US OB BPP w non-stress Accession Number(s): [id number] cc: Tee Vasquez D.O.; Physician,Non-Staff M.DCristopher The [address] [address] Patient Name: JESSEE ALMODOVAR MRN: [id number] date: 1990 Sex: F Assigned Patient Location: US Current Patient Location: US Accession/Order Number: [id number] Exam Date: 01/24/2024 11:40 Report Date: 01/25/2024 06:17 At the request of: TEE VASQUEZ Procedure: [...] M.D. Signed By: 01/25/24619 DD/ 6 TD/TT: Appeals Coordinator: Procedure Note Radiology, Radiologist, MD - 01/25/2024 [place] [address] Ultrasound Report Signed Patient: JESSEE ALMODOVAR BMR#: [id number] : 1990Acct:[id number] Age/Sex: 33 / FADM Date: 01/24/24 Loc: US Attending Dr: Tee Vasquez D.O. Ordering Physician: Tee Vasquez D.O. Date of Service: 01/24/24 Procedure(s): US OB BPP w non-stress Accession Number(s): [id number] cc: Tee Vasquez D.O.; Physician,Non-Staff M.DCristopher The [place] [id number] Patient Name: JESSEE ALMODOVAR MRN: [id number] date: 1990 Sex: F Assigned Patient Location: US Current Patient Location: US Accession/Order Number: [id number] Exam Date: 01/24/2024 11:40 Report Date: 01/25/2024 06:17 At the request of: TEE VASQUEZ Procedure: [...] Gipson M.D. Signed By:01/25/24619 DD/ 6 TD/TT: Appeals Coordinator: us Tee Pedro DO [facility] Final Result documented in this encounter Visit Diagnoses Not on filedocumented in this encounter Care Teams Sectional Belt Mold Assembler Relationship Specialty Start Date End Date Chhaya Ceballos MD PCP - General Family Medicine 03/04/23 Franny Hager PA [address] [address] [place] [address] PCP - Medical [place] [employer] 07/10/18 04/20/99 documented as of this encounter
--- OUTSIDE RECORDS SUMMARY | 2024-12-22 09:08 | XMS_ITS | Encounter Summary ---
Author Organization [facility] Address [address] [place] [address] Care Team Providers Care Employee Benefits Manager Name Role Phone Chhaya Ceballos Primary Care Provider + Emile Mesa MD Unavailable Guillaume Vasquez DO Unavailable [phone] Source Comments In the event this information is protected by the Federal Confidentiality of Alcohol and Drug AbusePatient Records regulations: The Federal rules restrict any use of the information to criminally investigate or prosecute any alcohol or drug abuse patient.[facility] Encounter Details Date Type Department Care Team (Late st Contact Info) Description 09/08/2023 Patient [facility] -[address] [place] [address] Noemi Chavez RPh Medication Refill Past Due [...] is lower risk 9 02/25/2023 Data from: https://www.neighborhoodatlas.medicine.[facility].edu/. Last address used for calculation 5 [...] on filedocumented in this encounter Care Teams Employee Benefits Manager Relationship Specialty Start Date End Date Chhaya Ceballos DO [address] [facility] [place] [address] PCP - General Family Medicine 07/25/22 Emile Mesa MD [address] [place] [address] [place] [address] Gastroenterology 07/25/22 Guillaume Vasquez DO [address] [place] [address] [place] [address] Song And Dance Performer 07/25/22 documented as of this encounter
--- OUTSIDE RECORDS SUMMARY | 2024-12-22 09:08 | XMS_ITS | Encounter Summary ---
Author Organization [facility] Address [address] [place] [address] Care Team Providers Care Laundry Presser Name Role Phone Chhaya Ceballos MD Primary Care Provider Franny Hager Unavailable Encounter Details Date Type Department Care Team (Late st Contact Info) Description 11/14/2023 Abstract AYMILET JENNINGS [address] [address] Jeanne Alvarado LPN [address] [place] [address] Social History Tobacco Use Types [...] AM EDT Office Visit YAMILET JENNINGS [address] [place] [address] Guillaume Vasquez DO [address] Adriana Aceves, [facility]11 11/01/2025 9:00 AM EDT Office Visit [facility] Ketan JENNINGS [address] [facility] [place] [address] Guillaume Vasquez DO [address] [facility] [place] [address] documented as of this encounter Visit Diagnoses Not on filedocumented in this encounter Care Teams Laundry Presser Relationship Specialty Start Date End Date Chhaya Ceballos MD PCP - General Family Medicine 03/04/23 Franny Hager PA [address] [facility] [place] [address] PCP - Medical [place] [employer] 07/10/18 04/20/99 documented as of this encounter
--- OUTSIDE RECORDS SUMMARY | 2024-12-22 09:08 | XMS_ITS | Encounter Summary ---
Author Organization [facility] Address [address] [facility] [place] [address] Care Team Providers Care Fitness Plan Coordinator Name Role Phone Chhaya Ceballos MD Primary Care Provider [phone] Franny Hager Unavailable Encounter Details Date Type Department Care Team (Late Contact Info) Description 10/27/2023 Abstract YAMILET JENNINGS [facility] [place] [address] Guillaume Vasquez DO [address], [place] [address] Social History Tobacco Use Types Packs/Day Years [...] Office Visit YAMILET JENNINGS [address] [place] [address] Guillaume Vasquez DO [address], [facility]11 11/01/2025 9:00 AM EDT Office Visit [facility] Ketan JENNINGS [address] [place] [address] Guillaume Vasquez DO [address] [facility] [facility] [place] [address] documented as of this encounter Visit Diagnoses Not on filedocumented in this encounter Care Teams Fitness Plan Coordinator Relationship Specialty Start Date End Date Chhaya Ceballos MD PCP - General Family Medicine 03/04/23 Franny Hager PA [address] [place] [address] PCP - Medical [place] Commercial 07/10/18 04/20/99 documented as of this encounter
--- OUTSIDE RECORDS SUMMARY | 2024-12-22 09:08 | XMS_ITS | Encounter Summary ---
Author Organization [facility] Address [address] [place] [address] Care Team Providers Care Technician Preventative Medicine Name Role Phone Chhaya Ceballos MD Primary Care Provider Franny Hager Unavailable Encounter Details Date Type Department Care Team (Late st Contact Info) Description 01/20/2024 Abstract YAMILET JENNINGS [facility] [place] [address] Guillaume Vasquez DO [address], [place] [address] Social History Tobacco Use Types Packs/Day Years [...] [address] Guillaume Vasquez DO [address], [facility]11 11/01/2025 9:00 AM EDT Office Visit [facility] Ketan JENNINGS [address] [facility] [place] [place] [address] Guillaume Vasquez DO [address] [facility] [place] [address] documented as of this encounter Visit Diagnoses Not on filedocumented in this encounter Care Teams Technician Preventative Medicine Relationship Specialty Start Date End Date Chhaya Ceballos MD PCP - General Family Medicine 03/04/23 Franny Hager PA [address] [facility] [place] [address] PCP - Medical [place] Commercial 07/10/18 04/20/99 documented as of this encounter
--- OUTSIDE RECORDS SUMMARY | 2024-12-22 09:08 | XMS_ITS | Encounter Summary ---
Author Organization [facility] Address [address] [facility] [place] [address] Care Team Providers Care Ribbon Lapper Tender Name Role Phone Chhaya Ceballos MD Primary Care Provider [phone] Franny Hager Unavailable Encounter Details Date Type Department Care Team (Late st Contact Info) Description 11/05/2024 Results Follow-Up YAMILET Aceves [facility] [address] [facility] [place] [address] Jeanne Alvarado LPN 102 [place] [address] IGP,APTIMA HPV,AGE GDLN Social History Tobacco Use Types Packs/Day Years [...] Encounter Note - Jeanne Alvarado LPN - 11/05/2024 9:07 AM EDT Pt notified and transferred upfront to schedule * Result Encounter Note - Jeanne Alvarado LPN - 11/05/2024 8:35 AM EDT Attempted to call pt but she did not answer. Detailed voicemail left for pt to call office back. documented in this encounter Plan of Treatment Upcoming Encounters Date Type Department Care Team (Late st Contact Info) Description 01/11/2025 10:20 AM EDT Office Visit YAMILET JENNINGS [facility] [place] [address] Guillaume Vasquez, DO [address] [place] [address] 11/01/2025 9:00 AM EDT Office Visit YAMILET JENNINGS [address] [place] [address] Guillaume Vasquez, DO [address] [place] [address] documented as of this encounter Visit Diagnoses Not on filedocumented in this encounter Care Teams Ribbon Lapper Tender Relationship Specialty Start Date End Date Chhaya Ceballos MD PCP - General Family Medicine 03/04/23 Franny Hager PA [address] [place], [place] [address]bar[address] [place] [address] PCP - Medical [place] Commercial 07/10/18 04/20/99 documented as of this encounter
--- OUTSIDE RECORDS SUMMARY | 2024-12-22 09:08 | XMS_ITS | Encounter Summary ---
Author Organization [facility] Address [address] [facility] [place] [address] Care Team Providers Care Artisan Plasterer Name Role Phone Chhaya Ceballos MD Primary Care Provider [phone] Franny Hager Unavailable Encounter Details Date Type Department Care Team (Late Contact Info) Description 08/11/2023 Abstract YAMILET JENNINGS [address] [place] [address] Lisa Montes LPN 102 [facility] Adriana [facility]11 Social History Tobacco Use Types Packs/Day Years [...] 10:20 AM EDT Office Visit YAMILET JENNINGS [facility] [place] [address] Guillaume Vasquez DO [address] [place] [address] 11/01/2025 9:00 AM EDT Office Visit [facility] Ketan JENNINGS [address] [facility] [place] [address] Guillaume Vasquez DO [address] [facility] [place] [address] documented as of this encounter Visit Diagnoses Not on filedocumented in this encounter Care Teams Artisan Plasterer Relationship Specialty Start Date End Date Chhaya Ceballos MD PCP - General Family Medicine 03/04/23 Franny Hager PA [address] [facility] [place] [address] PCP - Medical [place] Commercial 07/10/18 04/20/99 documented as of this encounter
--- OUTSIDE RECORDS SUMMARY | 2024-12-22 09:08 | XMS_ITS | Encounter Summary ---
Author Organization [facility] Address [address] [place] [address] Care Team Providers Care Ambulance Mechanic Name Role Phone Chhaya Ceballos MD Primary Care Provider Franny Hager Unavailable Encounter Details Date Type Department Care Team (Late st Contact Info) Description 11/21/2023 Abstract YAMILET JENNINGS [facility] [place] [address] Guillaume Vasquez DO [address], [place] [address] Social History Tobacco Use Types Packs/Day Years [...] Office Visit YAMILET JENNINGS [address] [place] [address] Guillaume Vasquez DO [address], [facility]11 11/01/2025 9:00 AM EDT Office Visit [facility] Ketan JENNINGS [address] [facility] [place] [address] Guillaume Vasquez DO [address] [facility] [place] [address] documented as of this encounter Visit Diagnoses Not on filedocumented in this encounter Care Teams Ambulance Mechanic Relationship Specialty Start Date End Date Chhaya Ceballos MD PCP - General Family Medicine 03/04/23 Franny Hager PA [address] [facility] [place] [address] PCP - Medical [place] Commercial 07/10/18 04/20/99 documented as of this encounter
--- OUTSIDE RECORDS SUMMARY | 2024-12-22 09:08 | XMS_ITS | Encounter Summary ---
Author Organization [facility] Address [address] [facility] [address] [place] [address] Care Team Providers Care Debt Management Counselor Name Role Phone Chhaya Ceballos MD Primary Care Provider Franny Hager Unavailable Encounter Details Date Type Department Care Team (Late st Contact Info) Description 02/23/2024 Abstract YAMILET JENNINGS [facility] [place] [address] Guillaume Vasquez DO [address], [place] [address] Social History Tobacco Use Types Packs/Day Years [...] [address] Guillaume Vasquez DO [address], [facility] 11/01/2025 9:00 AM EDT Office Visit [facility] Ketan JENNINGS [address] [facility] [place] [address] Guillaume Vasquez DO [address] [facility] [place] [address] documented as of this encounter Visit Diagnoses Not on filedocumented in this encounter Care Teams Debt Management Counselor Relationship Specialty Start Date End Date Chhaya Ceballos MD PCP - General Family Medicine 03/04/23 Franny Hager PA [address] [facility] [place] [address] PCP - Medical [place] Commercial 07/10/18 04/20/99 documented as of this encounter
--- OUTSIDE RECORDS SUMMARY | 2024-12-22 09:08 | XMS_ITS | Encounter Summary ---
Author Organization [facility] Address [address] [place] [address] Care Team Providers Care Calcine Furnace Tender Name Role Phone Chhaya Ceballos MD Primary Care Provider Franny Hager Unavailable Encounter Details Date Type Department Care Team (Late st Contact Info) Description 01/18/2024 Clinisync Result Encounter [facility] External Department Unsolicited Tee Vasquez, [address] [place], [place] [address] Social History Tobacco Use Types Packs/Day Years [...] Visit NOMAnil Aceves OBGYMarge [address] [place] [address] Tee Vasquez DO [address] [place] [address] 11/01/2025 9:00 AM EDT Office Visit [facility] Ketan OBGYN [address] [facility] [place] [address] Tee Vasquez DO [address] [facility] [place] [address] documented as of this encounter Procedures Procedure Name Priority Date/Time Associated Diagnosis Comments US OB GROWTH 01/18/2024 6:55 AM EDT documented in this encounter Results * US OB GROWTH (01/18/2024 6:55 AM EDT) Anatomical Region Laterality Modality Other 01/18/2024 6:55 AM EDT Narrative 01/18/2024 6:57 AM EDT The [address] [address] Ultrasound Report Signed Patient: JESSEE ALMODOVAR MR#: [id number] : 1990 Acct:[id number] Age/Sex: 33 / F ADM Date: 01/17/24 Loc: US Attending Dr: Tee Vasquez D.O. Ordering Physician: Tee Vasquez D.O. Date of Service: 01/17/24 Procedure(s): US OB growth Accession Number(s): [id number] cc: Tee Vasquez D.O.; Physician,Non-Staff M.DCristopher The [address] [address] Patient Name: JESSEE ALMODOVAR MRN: [id number] date: 1990 Sex: F Assigned Patient Location: US Current Patient Location: US Accession/Order Number: [id number] Exam Date: 01/17/2024 13:30 Report Date: 01/18/2024 06:55 At the request of: TEE VASQUEZ Procedure: [...] Anand Gipson M.D. Signed By: 01/18/2457 DD/ TD/TT: Integrated Circuit Ic Layout Designer: Procedure Note Radiology, Radiologist, MD - 01/18/2024 [place] [address] Ultrasound Report Signed Patient: JESSEE ALMODOVAR BMR#: [id number] : 1990Acct:[id number] Age/Sex: 33 / FADM Date: 01/17/24 Loc: US Attending Dr: Tee Vasquez D.O. Ordering Physician: Tee Vasquez D.O. Date of Service: 01/17/24 Procedure(s): US OB growth Accession Number(s): [id number] cc: Tee Vasquez D.O.; Physician,Non-Staff Asim The [address] [address] Patient Name: JESSEE ALMODOVAR MRN: [id number] date: 1990 Sex: F Assigned Patient Location: US Current Patient Location: US Accession/Order Number: [id number] Exam Date: 01/17/2024 13:30 Report Date: 01/18/2024 06:55 At the request of: TEE VASQUEZ Procedure: [...] Anand Gipson M.D. Signed By:01/18/2457 DD/ TD/TT: Integrated Circuit Ic Layout Designer: us Tee Vasquez DO [facility] Final Result documented in this encounter Visit Diagnoses Not on filedocumented in this encounter Care Teams Calcine Furnace Tender Relationship Specialty Start Date End Date Chhaya Ceballos MD PCP - General Family Medicine 03/04/23 Franny Hager PA [address] [place] [address] [place] [address] PCP - Medical [place] Commercial 07/10/18 04/20/99 documented as of this encounter
--- OUTSIDE RECORDS SUMMARY | 2024-12-22 09:08 | XMS_ITS | Encounter Summary ---
Author Organization [facility] tem Address [id number] [address] 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
--- OUTSIDE RECORDS SUMMARY | 2024-12-22 09:08 | XMS_ITS | Encounter Summary ---
Author Organization [facility] Address [address] [place] [address] Care Team Providers Care Chief Operator Hydroformer Name Role Phone Chhaya Ceballos MD Primary Care Provider Franny Hager Unavailable Encounter Details Date Type Department Care Team (Late st Contact Info) Description 07/24/2023 Clinisync Result Encounter [facility]S External Department Unsolicited Tee Vasquez, [address] [place] [address] Social History Tobacco Use Types Packs/Day [...] Office Visit YAMILET JENNINGS [address] [place] [address] Tee Vasquez DO [address] [place], [place] [address] 11/01/2025 9:00 AM EDT Office Visit YAMILET Aceves OBGYN [address] [place] [address] Tee Vasquez DO [address] [facility] [place] [address] documented as of this encounter Procedures Procedure Name Priority Date/Time Associated Diagnosis Comments US OB TRANSVAGINAL 07/24/2023 2: 24 PM EDT documented in this encounter Results * US OB TRANSVAGINAL (07/24/2023 2:24 PM EDT) Anatomical Region Laterality Modality Other 07/24/2023 2:24 PM EDT Narrative 07/24/2023 2:26 PM EDT [address] [address] Ultrasound Report Signed Patient: Jessee Almodovar MR#: [id number] : 1990 Acct:[id number] Age/Sex: 33 / F ADM Date: 07/24/23 Loc: NOMS Attending Dr: Tee Vasquez D.O. Ordering Physician: Tee Vasquez D.O. Date of Service: 07/24/23 Procedure(s): US OB transvaginal Accession Number(s): [id number] cc: Tee Vasquez D.O.; Physician,Non-Staff M.DCristopher The [address] [address] Patient Name: JESSEE ALMODOVAR MRN: [id number] date: 1990 Sex: F Assigned Patient Location: [facility] Current Patient Location: [facility] Accession/Order Number: [id number] Exam Date: 07/24/2023 13:12 Report Date: 07/24/2023 14:24 At the request of: TEE VASQUEZ Procedure: US OB transvaginal EXAMINATION: US [...] Dictated By: Anand Gipson M.D. Signed By: 07/24/231425 DD/ 23 TD/TT: Childbirth Educator: Procedure Note Radiology, Radiologist, MD - 07/24/2023 [place] [address] Ultrasound Report Signed Patient: Jessee Almodovar BMR#: [id number] : 1990Acct:[id number] Age/Sex: 33 / FADM Date: 07/24/23 Loc: NOMS Attending Dr: Tee Vasquez D.O. Ordering Physician: Tee Vasquez D.O. Date of Service: 07/24/23 Procedure(s): US OB transvaginal Accession Number(s): [id number] cc: Tee Vasquez D.O.; Physician,Non-Staff M.DCristopher The [place] [id number] Patient Name: JESSEE ALMODOVAR MRN: [id number] date: 1990 Sex: F Assigned Patient Location: [facility] Current Patient Location: NOMS Accession/Order Number: [id number] Exam Date: 07/24/2023 13:12 Report Date: 07/24/2023 14:24 At the request of: TEE VASQUEZ Procedure: US OB transvaginal EXAMINATION: US [...] 14:24 Dictated By: Anand Gipson M.D. Signed By:07/24/231425 DD/ 23 TD/TT: Childbirth Educator: us Tee Pedro DO [facility] Final Result documented in this encounter Visit Diagnoses Not on filedocumented in this encounter Care Teams Chief Operator Hydroformer Relationship Specialty Start Date End Date Chhaya Ceballos MD PCP - General Family Medicine 03/04/23 Franny Hager PA [address] [place] [address] [place] [address] PCP - Medical [place] Commercial 07/10/18 04/20/99 documented as of this encounter
--- OUTSIDE RECORDS SUMMARY | 2024-12-22 09:08 | XMS_ITS | Encounter Summary ---
Author Organization [facility] Address [address] [place] [address] Care Team Providers Care Programmer Engineering And Scientific Name Role Phone Chhaya Ceballos MD Primary Care Provider [phone] Franny Hager Unavailable Encounter Details Date Type Department Care Team (Late st Contact Info) Description 02/16/2024 Clinisync Result Encounter NOMS External Department Unsolicited Tee Vasquez, [address] [place], [place] [address] Social History Tobacco Use Types Packs/Day Years [...] Visit NOMAnil [place]ves [facility]BGY[facility] [address] [place] [address] Tee Vasquez DO [address] [place] [address] 11/01/2025 9:00 AM EDT Office Visit [facility] [place] OBGYN [address] [facility] [place] [address] Tee Vasquez DO [address] [facility] [place] [address] documented as of this encounter Procedures Procedure Name Priority Date/Time Associated Diagnosis Comments US OB GROWTH 02/16/2024 4:34 AM EDT documented in this encounter Results * US OB GROWTH (02/16/2024 4:34 AM EDT) Anatomical Region Laterality Modality Other 02/16/2024 4:34 AM EDT Narrative 02/16/2024 4:37 AM EDT The [address] [address] Ultrasound Report Signed Patient: JESSEE ALMODOVAR MR#: [id number] : 1990 Acct:[id number] Age/Sex: 34 / F ADM Date: 02/14/24 Loc: US Attending Dr: Tee Vasquez D.O. Ordering Physician: Tee Vasquez D.O. Date of Service: 02/14/24 Procedure(s): US OB growth Accession Number(s): [id number] cc: Tee Vasquez D.O.; Physician,Non-Staff M.DCristopher The [address] [address] Patient Name: JESSEE ALMODOVAR MRN: [id number] date: 1990 Sex: F Assigned Patient Location: US Current Patient Location: US Accession/Order Number: [id number] Exam Date: 02/14/2024 13:15 Report Date: 02/16/2024 04:34 At the request of: TEE VASQUEZ Procedure: [...] M.D. Signed By: 02/16/24436 DD/ 3 TD/TT: Sign Out Clerk: Procedure Note Radiology, Radiologist, MD - 02/16/2024 [place] [address] Ultrasound Report Signed Patient: JESSEE ALMODOVAR BMR#: [id number] : 1990Acct:[id number] Age/Sex: 34 / FADM Date: 02/14/24 Loc: US Attending Dr: Tee Vasquez D.O. Ordering Physician: Tee Vasquez D.O. Date of Service: 02/14/24 Procedure(s): US OB growth Accession Number(s): [id number] cc: Tee Vasquez D.O.; Physician,Non-Staff Asim The [address] [address] Patient Name: JESSEE ALMODOVAR MRN: [id number] date: 1990 Sex: F Assigned Patient Location: US Current Patient Location: US Accession/Order Number: [id number] Exam Date: 02/14/2024 13:15 Report Date: 02/16/2024 04:34 At the request of: TEE VASQUEZ Procedure: [...] Gipson M.D. Signed By:02/16/24436 DD/ 3 TD/TT: Sign Out Clerk: us Tee Vasquez DO [facility] Final Result documented in this encounter Visit Diagnoses Not on filedocumented in this encounter Care Teams Programmer Engineering And Scientific Relationship Specialty Start Date End Date Chhaya Ceballos MD PCP - General Family Medicine 03/04/23 Franny Hager PA [address] [place] [address] [place] [address] PCP - Medical [place] Commercial 07/10/18 04/20/99 documented as of this encounter
--- OUTSIDE RECORDS SUMMARY | 2024-12-22 09:08 | XMS_ITS | Encounter Summary ---
Author Organization [facility] Address [address] [place] [address] Care Team Providers Care Cemetery Laborer Name Role Phone Chhaya Ceballos Primary Care Provider + Emile Mesa MD Unavailable Guillaume Vasquez DO Unavailable [phone] Source Comments In the event this information is protected by the Federal Confidentiality of Alcohol and Drug AbusePatient Records regulations: The Federal rules restrict any use of the information to criminally investigate or prosecute any alcohol or drug abuse patient.[facility] Encounter Details Date Type Department Care Team (Late st Contact Info) Description 12/22/2023 Patient [facility] -[address] [place] [address] Noemi Chavez RPh Medication Refill(s) Past Due [...] is lower risk 9 02/25/2023 Data from: https://www.neighborhoodatlas.medicine.[facility].edu/. Last address used for calculation 5 [...] on filedocumented in this encounter Care Teams Cemetery Laborer Relationship Specialty Start Date End Date Chhaya Ceballos DO [address] [place] [address] PCP - General Family Medicine 07/25/22 Emile Mesa MD [address] [place] [address] [place] [address] Gastroenterology 07/25/22 Guillaume Vasquez DO [address] [place] [address] [place] [address] Transliterator 07/25/22 documented as of this encounter
--- OUTSIDE RECORDS SUMMARY | 2024-12-22 09:08 | XMS_ITS | Encounter Summary ---
Author Organization [facility] Address [address] [place] [place] [address] Care Team Providers Care Supervisor Blueprinting And Photocopy Name Role Phone Chhaya Ceballos MD Primary Care Provider Franny Hager Unavailable Encounter Details Date Type Department Care Team (Late st Contact Info) Description 02/01/2024 Clinisync Result Encounter [facility] Department Unsolicited Tee Vasquez, [address] [place], [place] [id number] Social History Tobacco Use Types Packs/Day Years [...] Visit [facility] [place] [facility] [address] [place] [phone] Tee Vasquez DO [address] [place] [address] 11/01/2025 9:00 AM EDT Office Visit [facility] [address] [facility] [address] [place] [phone] Tee Vasquez DO [address] [facility] [place] [address] documented as of this encounter Procedures Procedure Name Priority Date/Time Associated Diagnosis Comments US OB BPP W NON-STRESS 02/01/2024 4:24 AM EDT documented in this encounter Results * US OB BPP W NON-STRESS (02/01/2024 4:24 AM EDT) Anatomical Region Laterality Modality Other 02/01/2024 4:24 AM EDT Narrative 02/01/2024 4:27 AM EDT The [address] [address] Ultrasound Report Signed Patient: JESSEE ALMODOVAR MR#: [id number] : 1990 Acct:[id number] Age/Sex: 33 / F ADM Date: 01/31/24 Loc: US Attending Dr: Tee Vasquez D.O. Ordering Physician: Tee Vasquez D.O. Date of Service: 01/31/24 Procedure(s): US OB BPP w non-stress Accession Number(s): [id number] cc: Tee Vasquez D.O.; Physician,Non-Staff M.DCristopher The [address] [address] Patient Name: JESSEE ALMODOVAR MRN: [id number] date: 1990 Sex: F Assigned Patient Location: [facility] Current Patient Location: Accession/Order Number: [id number] Exam Date: 01/31/2024 13:06 Report Date: 02/01/2024 04:24 At the request of: TEE VASQUEZ Procedure: [...] M.D. Signed By: 02/01/24426 DD/ 3 TD/TT: In Class Special Education Teacher: Procedure Note Radiology, Radiologist, MD - 02/01/2024 [place] [address] Ultrasound Report Signed Patient: JESSEE ALMODOVAR BMR#: [id number] : 1990Acct:[id number] Age/Sex: 33 / FADM Date: 01/31/24 Loc: US Attending Dr: Tee Vasquez D.O. Ordering Physician: Tee Vasquez D.O. Date of Service: 01/31/24 Procedure(s): US OB BPP w non-stress Accession Number(s): [id number] cc: Tee Vasquez D.O.; Physician,Non-Staff [place] The [place] [id number] Patient Name: JESSEE ALMODOVAR MRN: [id number] date: 1990 Sex: F Assigned Patient Location: [facility] Current Patient Location: Accession/Order Number: [id number] Exam Date: 01/31/2024 13:06 Report Date: 02/01/2024 04:24 At the request of: TEE VASQUEZ Procedure: [...] 04:24 Dictated By: Anand Gipson M.D. Signed By:02/01/24426 DD/ 3 TD/TT: In Class Special Education Teacher: us Tee Pedro DO [facility] Final Result documented in this encounter Visit Diagnoses Not on filedocumented in this encounter Care Teams Supervisor Blueprinting And Photocopy Relationship Specialty Start Date End Date Chhaya Ceballos MD PCP - General Family Medicine 03/04/23 Franny Hager PA [address] [place] [address] [place] [address] PCP - [facility] [employer] 07/10/18 04/20/99 documented as of this encounter
--- OUTSIDE RECORDS SUMMARY | 2024-12-22 09:28 | XMS_ITS | CCD ---
Author Organization [facility] Care Team Providers Care Home Attendant Name Role Phone Unavailable Primary Care Provider CHELSEA Ojeda Primary Care Physician [phone] Janice De La Rosa Unavailable Unavailable Unavailable [...] PEDRO, DR OLIVEIRA Attending Unavailable PEDRO, DR OLIVEIAR Primary Care Unavailable PLOVER, DR EMELIA Luna Consulting Unavailable PEDRO, DR OLIVEIRA Consulting Unavailable Chayo Anne Attending Unavailable Roxanne MOSLEY Attending Unavailable Asaad, Imad Unavailable Anupama Brown DO Primary Care Provider Moshe PALOMINO Imkatlyn Unavailable Guillaume Vasquez DO Unavailable Anupama Brown DO Primary Care Provider Emile Mesa MD Unavailable ASIF SCHAEFER Attending Unavailable CHELSEA KRAUS Referring Unavailable CHELSEA KRAUS Primary Care Unavailable Anupama Brown MD Primary Care Provider ASIF SCHAEFER Attending Unavailable CHELSEA KRAUS Referring Unavailable CHELSEA KRAUS Primary Care Unavailable EFRA CHELSEA Damien Referring Unavailable EFRA, CHELSEA Quezada Primary Care Unavailable HECTOR MANCERA Attending Unavailable EFRA, CHELSEA Quezada Referring Unavailable EFRA, CHELSEA Damien Primary Care Unavailable Kevin OVERTON Anupama Danielle Primary Care Provider Moshe PALOMINO, Imad Unavailable Pedro DO, Guillaume R Unavailable Unavailable Primary Care Provider Unavailmarcos e Efra OVERTON, Chelsea Damien Primary Care Provider FRANNY HAGER Referring Unavailable [facility] Unavailabl e PEDRO, GUILLAUME R Referring Unavailable KEVIN, [facility] Primary Care Unavailabl e PEDRO, GUILLAUME R Referring Unavailable KEVIN, [facility] Primary Care Unavailabl e KEVIN, [facility] Primary Care Unavailabl e KEVIN, [facility] Primary Care Unavailabl e KEVIN, [facility] Primary Care Unavailabl e KEVIN, [facility] Primary Care Unavailabl e PEDRO, GUILLAUME R Referring Unavailable KEVIN, [facility] Primary Care Unavailabl e Kevin PALOMINO, Anupama [facility] Care Provider [phone] PEDRO, GUILLAUME Attending Unavailable PEDRO, GUILLAUME Attending Unavailable PEDRO, GUILLAUME Attending Unavailable PEDRO, GUILLAUME Attending Unavailable PEDRO, GUILLAUME Attending Unavailable MADAN, FRANNY Attending Unavailable PEDRO, GUILLAUME Attending Unavailable MADAN, FRANNY Attending Unavailable MADAN, FRANNY Attending Unavailable Medications Current Medications Medication Drug Class(es) Dates Sig (Normalized) Sig (Original) amoxicillin 500 mg oral capsule (1 source) Penicillin-class Antibacterial Start: 05-26-2022 End: 06-05-2022 take 1 capsule by mouth every twelve hours amoxicillin 500 mg Cap 500 mg = 1 cap(s), Oral, q12hr, X 10 day(s), # 20 cap(s), Refills(s) 0, Pharmacy: [facility], 172, cm, 05/26/22 9:34:00 EST, Height/Length Dosing, 83.6, kg, 05/26/22 9:34:00 EST, Weight Dosing Start Date: 2/5/23 Stop Date: 06/05/22 Status: Ordered amphetamine aspartate 1.25 mg / amphetamine sulfate 1.25 mg / dextroamphetamine saccharate 1.25 mg / dextroamphetamine sulfate 1.25 mg oral tablet (20 sources) Central Nervous System Stimulant Start: 09-08-2024 Adderall 5 MG tablet Take 10 mg by mouth if needed 09/08/2024 Active Start: 09-08-2024 Adderall 5 MG tablet Take 5 mg by mouth if needed 09/08/2024 Active Start: 03-27-2023 End: 05-02-2023 take 1 tablet by mouth in the morning dextroamphetamine-amphetamine (AdderalL) 10 mg tablet Indications: Attention deficit hyperactivity disorder (ADHD), predominantly inattentive type Take 1 tablet by mouth in the morning. Take 1 tablet by mouth after lunch. 30 tablet 0 03/27/2023 05/02/2023 Discontinued (Alternate therapy) Start: 02-26-2023 End: 12-30-2023 take 1 capsule by mouth once daily in the morning amphetamine-dextroamphetamine XR (Adderall XR) 30 MG 24 hr capsule Take 1 capsule (30 mg total) by mouth in the morning for 15 days. Max Daily Amount: 30 mg. 02/26/2023 12/30/2023 Discontinued Start: 02-11-2023 take 1 capsule by mo ut once daily in the morning amphetamine-dextroamphetamine XR (ADDERALL XR) 20 mg capsule Take 1 capsule (20 mg total) by mouth in the morning for 15 days. Max Daily Amount: 20 mg. 15 capsule 02/11/2023 Active Start: 01-29-2023 End: 02-25-2023 take 1 capsule by mouth once daily in the morning amphetamine-dextroamphetamine XR (ADDERALL XR) 10 mg capsule Take 1 capsule (10 mg total) by mouth in the morning for 15 days. Max Daily Amount: 10 mg. 15 capsule 01/29/2023 02/25/2023 Discontinued take 1 capsule by mo uth in the morning, then take 10 mg by mouth every twenty-four hours amphetamine-dextroamphetamine XR (Adderall XR) 10 MG 24 hr capsule Take 20 mg by mouth in the morning. Active Comment on above: Take 1 capsule (10 m g total) by mouth in the morning for 15 days. Max Daily Amount: 10 mg. Take 1 capsule (20 m g total) by mouth in the morning for 15 days. Max Daily Amount: 20 mg. aspirin 81 mg delayed release oral tablet (15 sources) Platelet Aggregation Inhibitor, Nonsteroidal Anti-inflammatory Drug End: 04-06-2024 take 1 tablet by mouth once daily aspirin 81 MG EC tablet Take 81 mg by mouth Daily 04/06/2024 Discontinued Biotin (16 sources) Start: 05-26-2022 biotin Refills(s) 0 Start Date: 05/26/22 Status: Ordered BIOTIN ORAL Take by mouth. Active biotin 5 mg tabl et Take by mouth. Active biotin 1 MG caps ule Biotin 0 Active BIOTIN ORAL Take by mouth. [...] mg oral capsule (10 sources) Start: 01-27-20 End: 02-26-20 take 1 capsule by mouth twice daily as needed for constipation docusate sodium (Colace) 100 MG capsule Indications: Constipation, unspecified constipation type Take 1 capsule (100 mg) by mouth 2 (two) times a day as needed for constipation 30 capsule 5 01/27/2024 02/26/2024 Active doxycycline hyclate 100 mg oral capsule (13 sources) Tetracycline-clas s Drug Start: 03-04-20 End: 12-30-19 doxycycline (Vibramycin) 100 MG capsule Take 1 capsule (100 mg) by mouth in the morning and 1 capsule (100 mg) before bedtime. Do all this for 7 days. Take with at least 8 ounces (large glass) of water, do not lie down for 30 minutes after. 03/04/2023 12/30/2023 Discontinued Start: 12-12-2021 End: 02-25-2023 take 1 capsule by mouth twice daily doxycycline hyclate (VIBRAMYCIN) 100 mg capsule Take 1 capsule by mouth twice daily. 28 capsule 12/12/2021 02/25/2023 Discontinued Comment on above: Take 1 capsule by mo [facility] twice daily. labetalol hydrochloride 100 mg oral tablet (20 sources) beta-Adrenergic Anais Start: End: take 1 tablet by mouth in the morning labetalol (Normodyne) 100 MG tablet Indications: Pre-existing hypertension during , antepartum, unspecified pre-existing hypertension type (HHS-HCC) Take 1 tablet (100 mg) by mouth in the morning and 1 tablet (100 mg) before bedtime. 60 tablet 11 10/27/2024 10/27/2025 Active Start: 07-24-2023 End: 07-23-2024 take 1 tablet by mouth in the morning labetalol (Normodyne) 100 MG tablet Indications: Pre-existing hypertension during , antepartum, unspecified pre-existing hypertension type (HHS-HCC) Take 1 tablet (100 mg) by mouth in the morning and 1 tablet (100 mg) before bedtime. 60 tablet 11 07/24/2023 Active levothyroxine sodium 0.2 mg oral tablet (20 sources) l-Thyroxine Start: 03-09-2024 End: 04-08-2024 take 1 tablet by mouth in the morning levothyroxine (Synthroid, Levoxyl) 200 MCG tablet Indications: Thyroid disease Take 1 tablet (200 mcg) by mouth in the morning. 30 tablet 11 03/09/2024 Active Start: 11-13-2023 levothyroxine (SYNTHROID, LEVOTHROID) 25 MCG tablet Indications: Hypothyroidism affecting , antepartum Take 2pills M, W, F and 1 pill Tues,Th, Sa, Barrett 60 tablet 2 11/13/2023 Active Start: 11-03-2023 End: 11-02-2024 take 1 tablet by mouth before mealtime levothyroxine (Synthroid) 25 MCG tablet Indications: Thyroid disease (CMS/HCC) Take 1 tablet (25 mcg) by mouth in the morning. Take before meals. 30 tablet 11 11/03/2023 04/06/2024 Discontinued Start: 11-18-2022 End: 11-13-2023 take 1 tablet by mouth in the morning levothyroxine (SYNTHROID, LEVOTHROID) 200 MCG tablet Indications: Hypothyroidism affecting , antepartum Take 1 tablet (200 mcg total) by mouth in the morning. 30 tablet 2 11/13/2023 Active Start: 05-26-2022 levothyroxine 175 mcg (0.175 mg) oral capsule Refills(s) 0 Start Date: 05/26/22 Status: Ordered Start: 09-11-2021 End: 11-13-2023 take 1 tablet by mouth once daily [...] suzanna th once daily in the morning lisdexamfetamine dimesylate 30 mg oral capsule (5 sources) Central Nervous System Stimulant Start: End: take 1 capsule by mouth in the morning lisdexamfetamine (Vyvanse) 30 MG capsule Take 30 mg by mouth in the morning. 03/10/2023 12/30/2023 Discontinued lisinopril 40 mg oral tablet (20 sources) Angiotensin Converting Enzyme Inhibitor Start: End: lisinopril 40 MG tablet 07/15/2023 12/30/2023 Discontinued Start: 01-30-2022 End: 02-25-2023 take 1 tablet by mouth once daily lisinopril (ZESTRIL) 20 mg tablet Take 1 tablet by mouth once daily. Take 20-30 minutes before eating or taking other medications 30 tablet 5 01/30/2022 02/25/2023 Discontinued Start: 11-01-2021 End: 10-16-2023 take 1 tablet by mouth once daily [...] medications magnesium oxide 400 mg oral tablet (12 sources) Start: 01-27-20 End: 04-26-19 take 1 tablet by mouth once daily magnesium oxide (Mag-Ox) 400 MG tablet Indications: Nonintractable headache, unspecified chronicity pattern, unspecified headache type Take 1 tablet (400 mg) by mouth Daily 90 tablet 01/27/2024 04/06/2024 Discontinued evening dosing 24 hr methylphenidate hydrochloride 20 mg extended release oral capsule (12 sources) Central Nervous System Stimulant Start: 05-02-19 End: 12-30-19 take 1 capsule by mouth once daily Jornay PM 20 MG 24 hour capsule Take 1 capsule (20 mg) by mouth nightly for 15 days. Max Daily Amount 20 mg 05/02/2023 12/30/2023 Discontinued Start: 12-17-2022 End: 02-25-2023 take 1 tablet [...] (13 sources) RNA Synthetase Inhibitor Antibacterial Start: mupirocin (BACTROBAN) 2 % ointment Apply to affected area three times a day 22 g 09/11/2021 Active Comment on above: Apply to affected ar ea three times a day omeprazole 40 mg delayed release oral capsule (20 sources) Proton Pump Inhibitor Start: 5 take 1 capsule by mouth once daily omeprazole (PriLOSEC) [address] capsule Indications: Other specified related conditions, first trimester ([facility]-HCC) Take 1 capsule by mouth once daily. 30 capsule 11 08/25/2024 Active Start: 11-13-2022 take 1 capsule by mo uth twice daily omeprazole (PRILOSEC) 20 mg capsule [...] taking other medications [facility], 20-30 [...] polysaccharide iron complex 391 mg oral capsule (12 sources) Start: End: 5 take 1 capsule by mouth once daily iron polysaccharides (ProFe) 391.3 (180 Fe) MG capsule Indications: Low iron Take 1 capsule (391.3 mg) by mouth Daily 90 capsule 01/27/2024 04/06/2024 Discontinued 25/iron fum/folic/dha (-1 ORAL) (4 sources) take 1 tablet by mouth once daily 25/iron fum/folic/dha (-1 ORAL) Take 1 tablet by mouth daily. Active take 1 tablet by mouth once beth y 25/iron fum/folic/dha (-1 ORAL) Take 1 tablet by mouth daily. 0 Active Multivitamins (1 source) Start: 05-26-2022 take 1 tablet by mouth once daily Multivitamins 1 tab(s), Oral, Daily, Refill(s) 0 Start Date: 05/26/22 Status: Ordered MV-Min-Fe Fum-FA-DHA ( 1 PO) (20 sources) MV-Min- Fe Fum-FA-DHA ( 1 PO) Take by mouth. Active MV-Min- Fe Fum-FA-DHA ( 1 PO) Take by mouth. 0 Active traZODone hydrochloride 100 mg oral tablet (14 sources) Serotonin Reuptake Inhibitor Start: 06-04-2023 take 1 tablet by mouth once daily as needed for sleep traZODone (DESYREL) 100 mg tablet Indications: Insomnia, unspecified type Take 1 tablet (100 mg total) by mouth nightly as needed for sleep. 30 tablet 6 06/04/2023 Active Start: 02-26-2023 traZODone (Ace yrel) 100 MG tablet Take 100 mg by [...] mouth at bedtime as needed for sleep. 24 hr venlafaxine 150 mg extended release oral capsule (20 sources) Serotonin and Norepinephrine Reuptake Inhibitor Start: 07-29-19 take 1 capsule by mouth once daily venlafaxine XR (Effexor XR) 150 MG 24 hr capsule Take 150 mg by mouth Daily 07/28/2024 Active Start: 04-06-2024 End: 04-06-2025 take 2 capsules by mouth once daily venlafaxine XR (Effexor XR) 75 MG 24 hr capsule Indications: Anxiety and depression Take 2 capsules (150 mg) by mouth Daily Do not crush or chew. 60 capsule 11 04/06/2024 11/30/2024 Discontinued Start: 03-08-2024 End: 11-30-2024 take 1 capsule by mouth once daily venlafaxine XR (Effexor XR) 37.5 MG 24 hr capsule Indications: Anxiety and depression Take 1 capsule (37.5 mg) by mouth Daily Do not crush or chew. 30 capsule 11 03/08/2024 11/30/2024 Discontinued Start: 10-30-2022 End: 10-16-2023 take 1 capsule by mouth every twenty-four hours in the morning venlafaxine XR (EFFEXOR-XR) 150 mg 24 hr capsule Indications: Generalized anxiety disorder , Moderate episode of recurrent major depressive disorder (CMS-HCC) Take 1 capsule (150 mg total) by mouth in the morning. 30 capsule 6 06/04/2023 10/16/2023 Discontinued () Start: 08-08-2022 End: 02-25-2023 take 1 capsule [...] mg total) by mouth in the morning. Completed/Discontinued Medications Medication Drug Class(es) Dates Sig (Normalized) Sig (Original) atomoxetine 40 mg oral capsule (12 sources) Norepinephrine Reuptake Inhibitor Start: 11-07-2021 End: 02-25-2023 take 1 capsule by mouth once daily in the morning atomoxetine (STRATTERA) 40 mg capsule Take 1 capsule by mouth once daily in the morning. 30 capsule 11/07/2021 02/25/2023 Discontinued Comment on above: Take 1 capsule by mo uth once daily in the morning. bifidobacterium infantis 4 mg oral capsule (7 sources) Start: 07-10-2022 End: 02-25-2023 take 1 capsule by mouth once daily Bifidobacterium Infantis (ALIGN) 4 mg cap Take 1 capsule by mouth once daily. 30 capsule 3 07/10/2022 02/25/2023 Discontinued Comment on above: Take 1 capsule by mo uth once daily. citalopram 20 mg oral tablet (13 sources) Serotonin Reuptake Inhibitor Start: 10-12-2020 End: 02-25-2023 take 1 tablet by mouth once daily citalopram (CELEXA) 20 mg tablet Indications: mental disorders of mother Take 1 tablet by mouth daily 30 tablet 3 10/12/2020 02/25/2023 Discontinued Comment on above: Take 1 tablet by suzanna th daily escitalopram 20 mg oral tablet (20 sources) Serotonin Reuptake Inhibitor Start: 09-11-2021 End: 02-25-2023 take 1 tablet [...] 1 tablet by suzanna th once daily. fluconazole 150 mg oral tablet (8 sources) Azole Antifungal Start: 02-07-20 End: 02-26-20 take 1 tablet by mouth once fluconazole (DIFLUCAN) 150 mg tablet 1 (one) tablet by mouth one time dose 1 tablet 1 02/06/2022 02/25/2023 Discontinued Comment on above: 1 (one) tablet by mo [facility] one time dose hydrOXYzine hydrochloride 50 [...] Comment on above: Take 1 tablet by [facility] three times daily as needed. 10 ml lidocaine hydrochloride 10 mg/ml injection (1 source) Antiarrhythmic, Amide Local Anesthetic Start: 3 End: 3 lidocaine (PF) 10 mg/mL (1 %) 4 mL injection (XYLOCAINE) 1 ml medroxyPROGESTERone acetate 150 mg/ml prefilled syringe (20 sources) Progestin Start: End: 3 medroxyPROGESTERone (DEPO-PROVERA) 150 mg/mL Indications: Excessive or frequent menstruation Inject 1 (one) Milliliter every 12 weeks 1 mL 3 09/26/2020 02/25/2023 Discontinued Start: 08-23-2020 End: 02-25-2023 medroxyPROGESTERone (DEPO-LA OVERA) 150 mg/mL injection Indications: Excessive or frequent menstruation Inject 1 mL intramuscularly every 11-12 weeks 1 mL 3 08/23/2020 02/25/2023 Discontinued Comment on above: Inject 1 mL intramus cularly every 11-12 weeks Inject 1 (one) Mara liter every 12 weeks 20 ml ropivacaine hydrochloride 5 mg/ml injection (1 source) Amide Local Anesthetic Start: 02-25-2023 End: 02-25-2023 ROPivacaine (PF) 5 mg/mL (0.5 %) 4 mL injection (NAROPIN) 1 ml triamcinolone acetonide 40 mg/ml injection (1 source) Corticosteroid Start: 02-25-2023 End: 02-25-2023 triamcinolone acetonide 80 mg injection (KeNALog 40) Problems Active Problems Problem Classification Problem Date Documented Da te Episodic/Chronic Anxiety disorders (11 sources) Generalized anxiety disorder; Translations: [Mixed anxiety and depressive disorder] Onset: 08-08-2022 04-06-2024 Chronic Attention-deficit, conduct, and disruptive behavior disorders (2 sources) Attention-deficit hyperactivity disorder, predominantly inattentive type; Translations: [Attention-deficit hyperactivity disorder, predominantly inattentive type] Onset: 12-03-2022 Chronic Attention-deficit, conduct, and disruptive behavior disorders (6 sources) Attention deficit hyperactivity disorder, predominantly inattentive type; Translations: [Attention-deficit hyperactivity disorder, predominantly inattentive type] Onset: 12-03-2022 05-02-2023 Chronic Cancer of cervix (4 sources) Cervicovaginal cytology: Low grade squamous intraepithelial lesion; Translations: [Low grade squamous intraepithelial lesion on cytologic smear of cervix (LGSIL)] 11-30-2024 Episodic Deficiency and other anemia (1 source) Vegan's anemia; Translations: [Other dietary vitamin B12 deficiency anemia] 11-15-2022 Episodic Disorders of lipid metabolism (2 sources) Raised low density lipoprotein cholesterol; Translations: [Pure hypercholesterolemia, unspecified] 11-15-2022 Chronic Essential hypertension (1 source) Malignant essential hypertension; Translations: [Essential (primary) hypertension] 11-15-2022 Chronic Genitourinary symptoms and ill-defined conditions (2 sources) Dysuria; Translations: [Dysuria] Episodic Headache; including migraine (2 sources) Headache; Translations: [Nonintractable headache, unspecified chronicity pattern, unspecified headache type] 01-27-2024 Episodic Hypertension complicating ; childbirth and the puerperium (8 sources) Unspecified maternal hypertension, first trimester; Translations: [Pre-existing hypertension in obstetric context] Onset: 09-16-2023 12-30-2023 Chronic Menstrual disorders (20 sources) Irregular periods; Translations: [Irregular menstruation, unspecified] Onset: 06-02-2023 06-02-2023 Chronic Mood disorders (8 sources) Recurrent major depressive episodes, mild ; Translations: [Major depressive disorder, recurrent, mild] Onset: 08-08-2022 Chronic Nutritional deficiencies (2 sources) Serum iron low; Translations: [Iron deficiency] 01-27-2024 Episodic Other bone disease and musculoskeletal deformities (6 sources) Disorder of thigh; Translations: [Disorder of bone, unspecified] Episodic Other bone disease and musculoskeletal deformities (1 source) Disorder of bone, unspecified; Translations: [Disorder of bone and cartilage, unspecified] 02-25-2023 Episodic Other connective tissue disease (2 sources) [...] 05-26-2022 Episodic Other and delivery including normal (12 sources) Third trimester ; Translations: [Encounter for supervision of normal , unspecified, third trimester] 01-27-2024 Episodic Other screening for suspected conditions (not mental disorders or infectious disease) (4 sources) No current problems or disability; Translations: [...] [37 weeks gestation of ] 02-18-2024 Episodic Residual codes; unclassified (2 sources) Gestation period, 31 weeks; Translations: [31 weeks gestation of ] 01-13-2024 Episodic Spondylosis; intervertebral disc disorders; other back problems (3 sources) Acute back pain with sciatica; Translations: [Lumbago with sciatica, left side] Onset: 02-25-2023 Episodic Sprains and strains (1 source) Sprain of left foot; Translations: [Unspecified sprain of left foot, initial encounter] Onset: 02-23-2022 Episodic Thyroid disorders (6 sources) Hypothyroidism; Translations: [Hypothyroidism, unspecified] Chronic Thyroid disorders (6 sources) Disorder of thyroid gland; Translations: [Disorder of thyroid, unspecified] 04-06-2024 Episodic Unclassified (1 source) [facility] video visit Onset: 10-16-2023 Past or Other Problems Problem Classification Problem Date Documented Date Episodic/Chronic Abdominal pain (5 sources) Pain in pelvis; Translations: [Pelvic and perineal pain] Onset: 01-08-2022 Episodic Conditions associated with dizziness or vertigo (1 source) Dizziness and giddiness; Translations: [Dizziness] Onset: 01-19-2024 Episodic Mood disorders (4 sources) Mood disorders Onset: 08-08-2022 08-08-2022 Other complications of (3 sources) Excessive growth affecting management of mother; Translations: [Maternal care for excessive growth, third trimester, not applicable or unspecified] 12-30-2023 Episodic Other complications of (5 sources) Hypothyroidism in ; Translations: [Endocrine, nutritional and metabolic diseases complicating , unspecified trimester] Onset: 07-02-2019 07-02-2019 Episodic Residual codes; unclassified (1 source) Gestation period, 24 weeks; Translations: [24 weeks gestation of ] 11-13-2023 Episodic Results Test Name Value Interpretation Reference Range Facility IGP,APTIMA HPV,AGE GDLNon AGE GDLN ACOG TESTING Note . [facility] Comment on above: TESTS RESULT FLAG UN ITS REF RANGE LAB Clinician Provided Cytology Information Source.............Cervix;Endocervix No. of containers..01 ThinPrep Vial Age Algo ACOG Anayeli... 30-65 01 FLAG LEGEND: L-Low Normal,H-High Normal,LL-Alert Low,HH-Alert High <-Panic Low,>-Panic High,A-Abnormal,AA-Critical Abnormal Performed at: 01 =G [address] [address] Gabrielle Luna MD, HPV APTIMA Positive Abnormal Negative [facility] Comment on above: This nucleic acid am plification test detects fourteen high- risk HPV types (16,18,31,33,35,39,45,51,52,56,58,59,66,68) without differentiation. Performed at: = - [address] [id number] Last Inserter: Gabrielle Luna MD, Phone: [phone] Performed at: - [facility] [id number] Last Inserter: Gabrielle Luna MD, Phone: [phone] IGP, APTIMA HPV, RFX 16/18,45 Note Abnormal . [facility] Comment on above: TESTS RESULT FLAG UN ITS REF RANGE LAB DIAGNOSIS: [A] 02 EPITHELIAL CELL ABNORMALITY. LOW GRADE SQUAMOUS INTRAEPITHELIAL LESION (LSIL). ATYPICAL SQUAMOUS CELLS, CANNOT EXCLUDE HIGH-GRADE SQUAMOUS INTRAEPITHELIAL LESION (ASC-H). Recommendation: [A] 02 Suggest colposcopy and biopsy if indicated. Specimen adequacy: 02 Satisfactory for evaluation. Endocervical and/or squamous metaplastic cells (endocervical component) are present. Performed by: 02 Terence Martinez, Senior Courtroom Clerk (ASCP) Electronically si... 02 Christine Alvarez MD, [...] <-Panic Low,>-Panic High,A-Abnormal,AA-Critical Abnormal Performed at: 02 [facility] [address] [place] [address] Gabrielle Luna MD, Interpretation and review of laboratory results Abnormal [facility] BRUSH-SPATULA CERVIX ENDOCERVIX CLINISYNC [facility] Cytology Cervical or vaginal smear or scraping studyOrdered By: Angela Weir on 10-26-2024 Interpretation and review of laboratory results Abnormal [facility] US PELVIC COMPLETE W/ TVon 0 08-03-2024 US PELVIC COMPLETE W/ TV EXAM: US PELVIC COMPLETE W/ TV HISTORY: [...] II, MD, PHD at 04-Aug-2024 12:04:16 AM [facility] Normal Not Available Comment on above: Order Comment: US PE LVIS-TRANSVAG IF INDICATED No LMP recorded. B-HCG SerPl-aCncon HCG.beta subunit Qn m[IU]/mL Normal <5.0 [facility] Comment on above: Order Comment: Speci men Type: BLOOD SPECIMEN Ordering Facility: [facility] OB-CASH APPLICATION CLERK [place] Address: [address] [place] [address] Result Comment: Dianne logan Performed By: #### 3 016-3, 3024-7 #### [facility] CLIA [id number] [address] [place] [address] [place] CBC W Auto Differential pane l (Bld)on 07-16-2024 Basophils (Bld) [#/Vol] 0.04 10*3/uL Normal <0.11 [facility] Comment on above: Order Comment: Speci men Type: BLOOD SPECIMEN Ordering Facility: [facility] OB-CASH APPLICATION CLERK [place] Address: [address] [place] [id number] Performed By: #### 5 7021-8 #### [facility] CLIA [id number] [address] [place], [place] [address] Basophils/100 WBC (Bld) 0.9 % Normal [facility] Comment on above: Order Comment: Speci men Type: BLOOD SPECIMEN Ordering Facility: [facility] OB-CASH APPLICATION CLERK [place] Address: [address] [place] [id number] Performed By: #### 5 7021-8 #### [facility] CLIA [id number] [address] [place] [address] 32364 Differential cell count method Nom (Bld) Auto Normal [facility] Comment on above: Order Comment: Speci men Type: BLOOD SPECIMEN Ordering Facility: [facility] OB-CASH APPLICATION CLERK [place] Address: [address] [place] [id number] Performed By: #### 5 7021-8 #### [facility] CLIA [id number] [address] [place] [address] 65189 Eosinophils (Bld) [#/Vol] 0.07 10*3/uL Normal <0.46 [facility] Comment on above: Order Comment: Speci men Type: BLOOD SPECIMEN Ordering Facility: [facility] OBCASH APPLICATION CLERK [place] Address: [address] [place] [id number] Performed By: #### 5 7021-8 #### [facility] CLIA [id number] [address] [place] [address] 77892 Eosinophils/100 WBC (Bld) 1.5 % Normal [facility] Comment on above: Order Comment: Speci men Type: BLOOD SPECIMEN Ordering Facility: [facility] OBCASH APPLICATION CLERK [place] Address: [address] [place] [id number] Performed By: #### 5 7021-8 #### [facility] CLIA [id number] [address] [place] [address] 22072 Erythrocyte distribution width (RBC) [Ratio] 15.4 % High 11.5-15.0 [facility] Comment on above: Order Comment: Speci men Type: BLOOD SPECIMEN Ordering Facility: [facility] Address: [address] [place] [id number] Performed By: #### 5 7021-8 #### [facility] CLIA [id number] [address] [place] [address] 76870 Hematocrit (Bld) [Volume fraction] 42.7 % Normal 36.0-46.0 [facility] Comment on above: Order Comment: Speci men Type: BLOOD SPECIMEN Ordering Facility: [facility] Address: [address] [place] [id number] Performed By: #### 5 7021-8 #### [facility] CLIA [id number] [address] [place] [address] 32692 Hemoglobin (Bld) [Mass/Vol] 14.0 g/dL Normal 11.5-15.5 [facility] Comment on above: Order Comment: Speci men Type: BLOOD SPECIMEN [facility] [place] Address: [address] [place] [address] Performed By: #### 5 7021-8 #### [facility] CLIA [id number] [address] [place] [address] Immature granulocytes (Bld) [#/Vol] 10*3/uL Normal <0.10 [facility] Comment on above: Order Comment: Speci men Type: BLOOD SPECIMEN Ordering Facility: [facility] OB-CASH APPLICATION CLERK [place] Address: [address] [place] [address] Performed By: #### 5 7021-8 #### [facility] CLIA [id number] [address] [place] [address] 80090 Immature granulocytes/100 WBC (Bld) 0.4 % Normal [facility] Comment on above: Order Comment: Speci men Type: BLOOD SPECIMEN [facility]ing Facility: [facility] Address: [address] [place] [address] Performed By: #### 5 7021-8 #### [facility] CLIA [id number] [address] [place] [address] 99826 Lymphocytes (Bld) [#/Vol] 1.53 10*3/uL Normal 1.00-4.00 [facility] Comment on above: Order Comment: Speci men Type: BLOOD SPECIMEN Ordering Facility: [facility] Address: [address] [place] [id number] Performed By: #### 5 7021-8 #### [facility] CLIA [id number] [address] [place] [address] 45883 Lymphocytes/100 WBC (Bld) 32.6 % Normal [facility] Comment on above: Order Comment: Speci men Type: BLOOD SPECIMEN Ordering Facility: [facility] OB-CASH APPLICATION CLERK [place] Address: [address] [place] [id number] Performed By: #### 5 7021-8 #### [facility] CLIA [id number] [address] [place] [address] 36949 MCH (RBC) [Entitic mass] 29.5 pg Normal 26.0-34.0 [facility] Comment on above: Order Comment: Speci men Type: BLOOD SPECIMEN [facility] Address: [address] [place] [address] Performed By: #### 5 7021-8 #### [facility] CLIA [id number] [address] [place] [address] 87885 MCHC (RBC) [Mass/Vol] 32.8 g/dL Normal 30.5-36.0 [facility] Comment on above: Order Comment: Speci men Type: BLOOD SPECIMEN Ordering Facility: [facility] Address: [address] [place] [address] Performed By: #### 5 7021-8 #### [facility] CLIA [id number] [address] [place] [address] 94417 MCV (RBC) [Entitic vol] 90.1 fL Normal 80.0-100.0 [facility] Comment on above: Order Comment: Speci men Type: BLOOD SPECIMEN Ordering Facility: [facility] Address: [address] [place] [address] Performed By: #### 5 7021-8 #### [facility] CLIA [id number] [address] [place] [address] 04801 Monocytes (Bld) [#/Vol] 0.51 10*3/uL Normal <0.87 [facility] Comment on above: Order Comment: Speci men Type: BLOOD SPECIMEN Ordering Facility: [facility] Address: [address] [place] [address] Performed By: #### 5 7021-8 #### [facility] CLIA [id number] [address] [place] [address] 73858 Monocytes/100 WBC (Bld) 10.9 % Normal [facility] Comment on above: Order Comment: Speci men Type: BLOOD SPECIMEN [facility] [place] Address: [address] [place] [phone] Performed By: #### 5 7021-8 #### [facility] CLIA [id number] [address] [place] [address] Neutrophils (Bld) [#/Vol] 2.52 10*3/uL Normal 1.45-7.50 [facility] Comment on above: Order Comment: Speci men Type: BLOOD SPECIMEN Ordering Facility: [facility] OB-CASH APPLICATION CLERK [place] Address: [address] [place] [id number] Performed By: #### 5 7021-8 #### [facility] CLIA [id number] [address] [place] [address] Neutrophils/100 WBC (Bld) 53.7 % Normal [facility] Comment on above: Order Comment: Speci men Type: BLOOD SPECIMEN Ordering Facility: [facility] Address: [facility] [address] [place] [id number] Performed By: #### 5 7021-8 #### [facility] CLIA [id number] [address] [place] [address] 70731 Nucleated RBC (Bld) [#/Vol] 10*3/uL Normal <0.01 [facility] Comment on above: Order Comment: Speci men Type: BLOOD SPECIMEN Ordering Facility: [facility] Address: [facility] [address] [place] [address] Performed By: #### 5 7021-8 #### [facility] CLIA [id number] [address] [place] [address] 25801 Nucleated RBC/100 WBC (Bld) [Ratio] 0.0 /100 WBC Normal [facility] Comment on above: Order Comment: Speci men Type: BLOOD SPECIMEN Ordering Facility: [facility] Address: [address] [place] [address] Performed By: #### 5 7021-8 #### [facility] CLIA [id number] [address] [place] [address] 89658 Platelet mean volume (Bld) [Entitic vol] 11.8 fL Normal 9.0-12.7 [facility] Comment on above: Order Comment: Speci men Type: BLOOD SPECIMEN Ordering Facility: [facility] OB-CASH APPLICATION CLERK [place] Address: [facility] [address] [place] [address] Performed By: #### 5 7021-8 #### [facility] CLIA [id number] [address] [place] [address] 85765 Platelets (Bld) [#/Vol] 146 10*3/uL Low 150-400 [facility] Comment on above: Order Comment: Speci men Type: BLOOD SPECIMEN Ordering Facility: [facility] OB-CASH APPLICATION CLERK [place] Address: [facility] [address] [place] [address] Result Comment: Resu lts checked and verified.No clot detected. Performed By: #### 5 7021-8 #### [facility] CLIA [id number] [address] [place] [address] 84043 RBC (Bld) [#/Vol] 4.74 10*6/uL Normal 3.90-5.20 [facility] Comment on above: Order Comment: Speci men Type: BLOOD SPECIMEN Ordering Facility: [facility] OB-CASH APPLICATION CLERK [place] Address: [address] [place] [address] Performed By: #### 5 7021-8 #### [facility] CLIA [id number] [address] [place] [address] 15198 WBC (Bld) [#/Vol] 4.69 10*3/uL Normal 3.70-11.00 [facility] Comment on above: Order Comment: Speci men Type: BLOOD SPECIMEN Ordering Facility: [facility] OB-CASH APPLICATION CLERK [place] Address: [address] [place] [address] Performed By: #### 5 7021-8 #### [facility] CLIA [id number] [address] [place] [address] 74196 DHEA BLOODon 07-16-2024 DHEA 1.775 ng/mL Normal 1.330-7.780 [facility] Comment on above: Order Comment: Speci men Type: BLOOD SPECIMEN Ordering Facility: [facility] OB-CASH APPLICATION CLERK [place] Address: [address] [place] [address] [address], [place] [address] Result Comment: INTE RPRETIVE INFORMATION: Dehydroepiandrosterone, Females 18 years and older: Postmenopausal: 0.60-5.73 ng/mL REFERENCE INTERVAL: Dehydroepiandrosterone by TMS Access complete set of age- and/or gender-specific reference intervals for this test in the [facility] Test Directory ([employer]). This test was developed and its performance characteristics determined by [employer]. It has not been cleared or approved by the [place] Food and Drug Administration. This test was performed in a CLIA certified laboratory and is intended for clinical purposes. Performed By: [facility] [address] [place] [address] [employer]isher [employer] Dies: Charlie Forde MD, PhD CLIA Number: [id number] Performed By: #### D CLARK #### [facility] CLIA [id number] [address] [place] [address] DHEA-S [facility] 07-16-2024 DHEA-S [Mass/Vol] 71.1 ug/dL Low 98.8-340.0 [facility] Comment on above: Order Comment: Speci men Type: BLOOD SPECIMEN Ordering Facility: External Submitter Address: , , Result Comment: Refe rence ranges are age and gender specific. For additional information, reference range tables can be found in the laboratory test directory. The normal values are based on the following source: Dehydroepiandrosterone sulfate (DHEA S) [package insert V 17.0 Slovak]. [facility], [place], [place]: November 2012. Performed By: #### 5 7021-8 #### [facility] CLIA [id number] [address] [place] [address] 68617 [facility]SH SerPl-aCncon 07-16-2024 Follitropin Qn 18.9 m[IU]/mL Normal See comment [facility] Comment on above: Order Comment: Speci men Type: BLOOD SPECIMEN Ordering Facility: External Submitter Address: , , Result Comment: Refe rence range: Follicular: 3.5-12.5 mIU/mL Ovulation: 4.7-21.5 mIU/mL Luteal: 1.7-7.7 mIU/mL Postmenopausal: 25.8-134.8 mIU/mL Performed By: #### 5 7021-8 #### [facility] CLIA [id number] [address] [place] [address] 03725 HbA1c (Bld)on 07-16-2024 Average glucose Estimated from glycated hemoglobin (Bld) [Mass/Vol] 97 mg/dL Normal [facility] Comment on above: Order Comment: Speci men Type: BLOOD SPECIMEN Ordering Facility: [facility] OB-CASH APPLICATION CLERK [place] Address: [address] [place] [address] Result Comment: eAG: (Estimated average glucose) is a calculated value from HgbA1c and is inside account representative of the average blood glucose level in the last 2-3 month period. Performed By: #### 5 5454-3 #### [facility] CLIA [id number] [address] [place] [address] [place] HbA1c (Bld) [Mass fraction] 5.0 % Normal 4.3-5.6 [facility] Comment on above: Order Comment: Speci men Type: BLOOD SPECIMEN Ordering Facility: [facility] OB-CASH APPLICATION CLERK [place] Address: [facility] [address] [place] [address] Result Comment: [place] Diabetes Association guidelines indicate that patients with HgbA1c in the range 5.7-6.4% are at increased risk for development of diabetes, and intervention by lifestyle modification may be beneficial. HgbA1c greater or equal to 6.5% is considered diagnostic of diabetes. Performed By: #### 5 5454-3 #### [facility] CLIA [id number] [facility] [place] [id number] [place] LH SerPl-aCncon 07-16-2024 Lutropin Qn 12.5 m[IU]/mL Normal See comment [facility] Comment on above: Order Comment: Speci men Type: BLOOD SPECIMEN Ordering Facility: External Submitter Address: , , Result Comment: Refe rence range: Follicular: 2.4-12.6 mIU/mL Midcycle: 14.0-95.6 mIU/mL Luteal: 1.0-11.4 mIU/mL Post Priscila: 7.7-58.5 mIU/mL Performed By: #### 5 7021-8 #### [facility] CLIA [id number] [address] [place] [address] T4 Free SerPl-mCncon 025 Free T4 [Mass/Vol] 1.2 ng/dL Normal 0.9-1.7 [facility] Comment on above: Order Comment: Speci men Type: BLOOD SPECIMEN Ordering Facility: External Submitter Address: , , Performed By: #### 5 7021-8 #### [facility] CLIA [id number] [address] [place] [address] 93158 TSH SerPl-aCncon 07-16-2024 TSH Qn 6.050 m[IU]/L High 0.270-4.200 [facility] Comment on above: Order Comment: Speci men Type: BLOOD SPECIMEN Ordering Facility: [facility] OB-CASH APPLICATION CLERK [place] Address: [address] [place] [address] , [place] [address] Result Comment: If t he patient is , TSH reference range varies by gestational period: First Trimester (weeks 9-12): 0.180-2.990 mIU/L Second Trimester: 0.110-3.980 mIU/L Third Trimester: 0.480-4.710 mIU/L Manuel Grayson et al. A Practical Approach for the Verifications and Determination of Site- and Trimester-Specific Reference Intervals for Thyroid Function tests in . Thyroid, 2019:29:3:412-420. Emanuel Nassar, et al. 2017 Guidelines of the [place] Thyroid Association for the Diagnosis and Management of Thyroid Disease during and the . Thyroid, 2017:27:3:315-389. Performed By: #### 3 016-3, 3024-7 #### [facility] CLIA [id number] [address] [place] [address] [place] ALL CBC WITH AUTO DIFFon BASOPHILS ABSOLUTE [facility] 0 [facility] Bas[facility]/100 WBC (Bld) 0.3 % 0.2 - 2.0 % [facility] Eosinophils/100 WBC (Bld) 0.8 % Low 0.9 - 7.0 % [facility] Erythrocyte distribution width (RBC) [Ratio] 14.3 % 11.0 - 15.0 % [facility] Hematocrit (Bld) [Volume fraction] 32.4 % Low 36.0 - 48.0 % [facility] Hemoglobin (Bld) [Mass/Vol] 10 g/dL Low 12.0 - 16.0 g/dL [facility] IMMATURE GRANULOCYTES ABS AUTO 0.05 High [facility] Immature granulocytes/100 WBC (Bld) 0.5 % 0.0 - 0.5 % [facility] Interpretation and review of laboratory results Abnormal [facility] LYMPHOCYTES ABSOLUTE AUTO 1.4 [facility] Lymphocytes/100 WBC (Bld) 12.7 % Low 20.5 - 60.0 % [facility] MCH (RBC) [Entitic mass] 25.4 pg Low 26.7 - 34.0 pg [facility] MCHC (RBC) [Mass/Vol] 30.9 g/dL 29.9 - 35.2 g/dL [facility] MCV (RBC) [Entitic vol] 82.2 fL 81.0 - 99.0 fL [facility] MONOCYTES ABSOLUTE AUTO 1 High [facility] Monocytes/100 WBC (Bld) 9.4 % 1.7 - 12.0 % [facility] NEUTROPHILS ABSOLUTE AUTO 8.3 High [facility] Neutrophils/100 WBC (Bld) 76.3 % High 43.0 - 75.0 % [facility] Platelet mean volume (Bld) [Entitic vol] 11.7 fL 9.5 - 13.5 fL [facility] EO # 0.1 [facility] PLT 158 [facility] RBC 3.94 Low [facility] WBC 10.9 [facility] WITH PLATELET NO DI FFERENTIALon 02-23-2024 Erythrocyte distribution width (RBC) [Ratio] 14.3 % 11.0 - 15.0 % [facility] Hematocrit (Bld) [Volume fraction] 34.6 % Low 36.0 - 48.0 % [facility] Hemoglobin (Bld) [Mass/Vol] 10.9 g/dL Low 12.0 - 16.0 g/dL [facility] Interpretation and review of laboratory results Abnormal [facility] MCH (RBC) [Entitic mass] 25.6 pg Low 26.7 - 34.0 pg [facility] MCHC (RBC) [Mass/Vol] 31.5 g/dL 29.9 - 35.2 g/dL [facility] MCV (RBC) [Entitic vol] 81.4 fL 81.0 - 99.0 fL [facility] Platelet mean volume (Bld) [Entitic vol] 12.8 fL 9.5 - 13.5 fL [facility] PLT 178 [facility]H RBC 4.25 [facility] WBC 9.5 [facility] Urinalysis macro (dipstick) panel (U)on 02-10-2024 Bilirubin, UA Negative Negative - 4(70) +++ mg/dL [facility] Blood, UA Negative Negative - 50 Pepito/mcL [facility] Clarity, UA Clear [facility] Color, UA Yellow [facility] Glucose, UA Negative Negative - 2000(110) ++++ mg/dL [facility] Interpretation and review of laboratory results Normal [facility] Ketones, UA Negative Negative - 160(16) ++++ mg/dL [facility] Leukocytes, UA Negative Negative - 500+++ Ilia/mcL [facility] Nitrite, UA Negative Negative - Positive [facility] pH, UA 6.5 5 - 9 [facility] Protein, UA Negative Negative - 2000(20) ++++ mg/dL [facility] Spec Grav, UA 1.01 1 - 1.03 [facility] Urobilinogen, UA 0.2 0.2 - 12 mg/dL [facility] T4 Free SerPl-mCncon 024 Free T4 [Mass/Vol] 1.1 ng/dL Normal 0.9-1.7 [facility] Comment on above: Order Comment: Speci men Type: BLOOD SPECIMEN Ordering Facility: [facility] OB-CASH APPLICATION CLERK [place] Address: [address] [place] [address] [place] [address] Performed By: #### 3 016-3, 3024-7 #### [facility] CLIA [id number] [address] [place] [address] [place] TSH SerPl-aCncon 02-05-2024 TSH Qn 1.340 m[IU]/L Normal 0.270-4.200 [facility] Comment on above: Order Comment: Speci men Type: BLOOD SPECIMEN Ordering Facility: [facility] OB-CASH APPLICATION CLERK [place] Address: [address] [place] [address] , [place] [address] Result Comment: If t he patient is , TSH reference range varies by gestational period: First Trimester (weeks 9-12): 0.180-2.990 mIU/L Second Trimester: 0.110-3.980 mIU/L Third Trimester: 0.480-4.710 mIU/L Manuel Grayson et al. A Practical Approach for the Verifications and Determination of Site- and Trimester-Specific Reference Intervals for Thyroid Function tests in . Thyroid, 2019:29:3:412-420. Emanuel Nassar, et al. 2017 Guidelines of the [place] Thyroid Association for the Diagnosis and Management of Thyroid Disease during and the . Thyroid, 2017:27:3:315-389. Performed By: #### 3 016-3, 3024-7 #### [facility] CLIA [id number] [address] [place] [address] [place] Urinalysis macro (dipstick) panel (U)on 01-27-2024 Bilirubin, UA Negative Negative - 4(70) +++ mg/dL [facility] Blood, UA Negative Negative - 50 Pepito/mcL [facility] Clarity, UA Clear [facility] Color, UA Yellow [facility] Glucose, UA Negative Negative - 1999(110) ++++ mg/dL [facility] Interpretation and review of laboratory results Normal [facility] Ketones, UA Negative Negative - 160(16) ++++ mg/dL [facility] Leukocytes, UA Negative Negative - 500+++ Ilia/mcL [facility] Nitrite, UA Negative Negative - Positive [facility] pH, UA 5.5 5 - 9 [facility] Protein, UA Negative Negative - 2000(20) ++++ mg/dL [facility] Spec Grav, UA 1.020 1 - 1.03 [facility] Urobilinogen, UA 0.2 0.2 - 12 mg/dL [facility] CBC W Auto Differential pane l (Bld)on 01-19-2024 Basophils (Bld) [#/Vol] 10*3/uL Normal <0.11 [facility] Comment on above: Order Comment: Speci men Type: BLOOD SPECIMEN Ordering Facility: [facility] OB-CASH APPLICATION CLERK [place] Address: [facility] [place] [address] Performed By: #### 3 016-3, 7 #### [facility] CLIA [id number] [address] [place] [address] [place] Basophils/100 WBC (Bld) 0.2 % Normal [facility] Comment on above: Order Comment: Speci men Type: BLOOD SPECIMEN Ordering Facility: [facility] OB-CASH APPLICATION CLERK [place] Address: [facility] [place] [address] Performed By: #### 3 016-3, 3023-10 #### [facility] CLIA [id number] [address] [place] [address] [place] Differential cell count method Nom (Bld) Auto Normal [facility] Comment on above: Order Comment: Speci men Type: BLOOD SPECIMEN Ordering Facility: [facility] OB-CASH APPLICATION CLERK [place] Address: [facility] [address] [place] [address] Performed By: #### 3 016-3, 7 #### [facility] CLIA [id number] [address] [place] [address] [place] Eosinophils (Bld) [#/Vol] 0.06 10*3/uL Normal <0.46 [facility] Comment on above: Order Comment: Speci men Type: BLOOD SPECIMEN Ordering Facility: [facility] Address: [facility] [address] [place] [address] Performed By: #### 3 016-3, 7 #### [facility] CLIA [id number] [address] [place] [id number] [place] Eosinophils/100 WBC (Bld) 0.6 % Normal [facility] Comment on above: Order Comment: Speci men Type: BLOOD SPECIMEN Ordering Facility: [facility] OB-CASH APPLICATION CLERK [place] Address: [facility] [address] [address] [place] [address] Performed By: #### 3 016-3, 7 #### [facility] CLIA [id number] [address] [place] [address] [place] Erythrocyte distribution width (RBC) [Ratio] 13.3 % Normal 11.5-15.0 [facility] Comment on above: Order Comment: Speci men Type: BLOOD SPECIMEN Ordering Facility: [facility] APPLICATION CLERK [place] Address: [facility] [place] [address] Performed By: #### 3 016-3, 7 #### [facility] CLIA [id number] [address] [place] [address] [place] Hematocrit (Bld) [Volume fraction] 32.8 % Low 36.0-46.0 [facility] Comment on above: Order Comment: Speci men Type: BLOOD SPECIMEN Ordering Facility: [facility]-CASH APPLICATION CLERK [place] Address: [facility] [address] [place] [address] Performed By: #### 3 016-3, 7 #### [facility] CLIA [id number] [address] [place] [address] [place] Hemoglobin (Bld) [Mass/Vol] 10.7 g/dL Low 11.5-15.5 [facility] Comment on above: Order Comment: Speci men Type: BLOOD SPECIMEN Ordering Facility: [facility] Address: [facility] [address] [place] [id number] Performed By: #### 3 016-3, 7 #### [facility] CLIA [id number] [address] [place] [address] [place] Immature granulocytes (Bld) [#/Vol] 0.05 10*3/uL Normal <0.10 [facility] Comment on above: Order Comment: Speci men Type: BLOOD SPECIMEN Ordering Facility: [facility]CASH APPLICATION CLERK [place] Address: [address] [place] [address] Performed By: #### 3 016-3, 7 #### [facility] CLIA [id number] [address] [place] [address] [place] Immature granulocytes/100 WBC (Bld) 0.5 % Normal [facility] Comment on above: Order Comment: Speci men Type: BLOOD SPECIMEN Ordering Facility: [facility]CASH APPLICATION CLERK [place] Address: [address] [place] [id number] Performed By: #### 3 016-3, 7 #### [facility] CLIA [id number] [address] [place] [address] [place] Lymphocytes (Bld) [#/Vol] 1.55 10*3/uL Normal 1.00-4.00 [facility] Comment on above: Order Comment: Speci men Type: BLOOD SPECIMEN Ordering Facility: [facility]CASH APPLICATION CLERK [place] Address: [address] [place] [address] Performed By: #### 3 016-3, 7 #### [facility] CLIA [id number] [address] [place] [address] [place] Lymphocytes/100 WBC (Bld) 15.1 % Normal [facility] Comment on above: Order Comment: Speci men Type: BLOOD SPECIMEN Ordering Facility: [facility]CASH APPLICATION CLERK [place] Address: [address] [place] [address] Performed By: #### 3 016-3, 7 #### [facility] CLIA [id number] [address] [place] [address] [place] MCH (RBC) [Entitic mass] 27.8 pg Normal 26.0-34.0 [facility] Comment on above: Order Comment: Speci men Type: BLOOD SPECIMEN Ordering Facility: [facility]-CASH APPLICATION CLERK [place] Address: [address] [place] [phone] Performed By: #### 3 016-3, 3023-10 #### [facility] CLIA [id number] [address] [place] [address] [place] MCHC (RBC) [Mass/Vol] 32.6 g/dL Normal 30.5-36.0 [facility] Comment on above: Order Comment: Speci men Type: BLOOD SPECIMEN Ordering Facility: [facility]-CASH APPLICATION CLERK [place] Address: [address] [place] [address] Performed By: #### 3 -3, 3023-10 #### [facility] CLIA [id number] [address] [place] [address] [place] MCV (RBC) [Entitic vol] 85.2 fL Normal 80.0-100.0 [facility] Comment on above: Order Comment: Speci men Type: BLOOD SPECIMEN Ordering Facility: [facility]-CASH APPLICATION CLERK [place] Address: [address] [place] [address] Performed By: #### 3 -3, 3023-10 #### [facility] CLIA [id number] [address] [place] [address] [place] Monocytes (Bld) [#/Vol] 0.77 10*3/uL Normal <0.87 [facility] Comment on above: Order Comment: Speci men Type: BLOOD SPECIMEN Ordering Facility: [facility]-CASH APPLICATION CLERK [place] Address: [address] [place] [address] Performed By: #### 3 -3, 3023-10 #### [facility] CLIA [id number] [address] [place] [address] [place] Monocytes/100 WBC (Bld) 7.5 % Normal [facility] Comment on above: Order Comment: Speci men Type: BLOOD SPECIMEN Ordering Facility: [facility]-CASH APPLICATION CLERK [place] Address: [address] [place] [address] Performed By: #### 3 -3, 3023-10 #### [facility] CLIA [id number] [address] [address] [place] Neutrophils (Bld) [#/Vol] 7.81 10*3/uL High 1.45-7.50 [facility] Comment on above: Order Comment: Speci men Type: BLOOD SPECIMEN Ordering Facility: [facility]-CASH APPLICATION CLERK [place] Address: [facility] [address] [place] [address] Performed By: #### 3 016-3, 7 #### [facility] CLIA [id number] [address] [address] [place] Neutrophils/100 WBC (Bld) 76.1 % Normal [facility] Comment on above: Order Comment: Speci men Type: BLOOD SPECIMEN Ordering Facility: [facility]-CASH APPLICATION CLERK [place] Address: [facility] [address] [place] [address] Performed By: #### 3 016-3, 7 #### [facility] CLIA [id number] [address] [place] [address] [place] Nucleated RBC (Bld) [#/Vol] 10*3/uL Normal <0.01 [facility] Comment on above: Order Comment: Speci men Type: BLOOD SPECIMEN Ordering Facility: [facility]-CASH APPLICATION CLERK [place] Address: [facility] [address] [place] [address] Performed By: #### 3 016-3, 7 #### [facility] CLIA [id number] [address] [place] [id number] [place] Nucleated RBC/100 WBC (Bld) [Ratio] 0.0 /100 WBC Normal [facility] Comment on above: Order Comment: Speci men Type: BLOOD SPECIMEN Ordering Facility: [facility] Address: [facility] [address] [address] Performed By: #### 3 016-3, 302-7 #### [facility] CLIA [id number] [address] [place] [address] [place] Platelet mean volume (Bld) [Entitic vol] 11.3 fL Normal 9.0-12.7 [facility] Comment on above: Order Comment: Speci men Type: BLOOD SPECIMEN Ordering Facility: [facility] OB-CASH APPLICATION CLERK [place] Address: [facility] [place] [address] Performed By: #### 3 016-3, 3024-7 #### [facility] CLIA [id number] [address] [place] [address] [place] Platelets (Bld) [#/Vol] 172 10*3/uL Normal 150-400 [facility] Comment on above: Order Comment: Speci men Type: BLOOD SPECIMEN Ordering Facility: [facility] OB-CASH APPLICATION CLERK [place] Address: [facility] [address] [place] [id number] Performed By: #### 3 016-3, 3024-7 #### [facility] CLIA [id number] [address] [place] [address] [place] RBC (Bld) [#/Vol] 3.85 10*6/uL Low 3.90-5.20 [facility] Comment on above: Order Comment: Speci men Type: BLOOD SPECIMEN Ordering Facility: [facility]-CASH APPLICATION CLERK [place] Address: [facility] [place] [address] Performed By: #### 3 016-3, 3024-7 #### [facility] CLIA [id number] [address] [place] [address] [place] WBC (Bld) [#/Vol] 10.26 10*3/uL Normal 3.70-11.00 [facility] Comment on above: Order Comment: Speci men Type: BLOOD SPECIMEN Ordering Facility: [facility] OB-CASH APPLICATION CLERK [place] Address: [facility] [address] [place] [id number] Performed By: #### 3 016-3, 3024-7 #### [facility] CLIA [id number] [address] [place] [address] [place] Urinalysis macro (dipstick) panel (U)on 01-13-2024 Bilirubin, UA Negative Negative - 4(70) +++ mg/dL [facility] Blood, UA Negative Negative - 50 Pepito/mcL [facility] Clarity, UA Clear [facility] Color, UA Yellow [facility] Glucose, UA Negative Negative - 1999(110) ++++ mg/dL [facility] Interpretation and review of laboratory results Normal [facility] Ketones, UA Negative Negative - 160(16) ++++ mg/dL [facility] Leukocytes, UA Negative Negative - 500+++ Ilia/mcL [facility] Nitrite, UA Negative Negative - Positive [facility] pH, UA 6.5 5 - 9 [facility] Protein, UA Negative Negative - 2000(20) ++++ mg/dL [facility] Spec Grav, UA 1.020 1 - 1.03 [facility] Urobilinogen, UA 0.2 0.2 - 12 mg/dL [facility] T4 Free SerPl-mCncon 024 Free T4 [Mass/Vol] 0.9 ng/dL Normal 0.9-1.7 [facility] Comment on above: Order Comment: Tammy mares Type: BLOOD SPECIMEN Ordering Facility: External Submitter Address: , , Performed By: #### 5 7021-8 #### [facility] CLIA [id number] [address] [place] [address] TSH SerPl-aCncon 01-05-2024 TSH Qn 1.220 m[IU]/L Normal 0.270-4.200 [facility] Comment on above: Order [...] Nassar et al. 2017 Guidelines of the [place] [employer] for the Diagnosis and Management of Thyroid Disease during and the . Thyroid, 2017:27:3:315-389. Performed By: #### 5 7021-8 #### [facility] CLIA [id number] [address] [place] [address] Urinalysis macro (dipstick) panel (U)on 12-30-2023 Bilirubin, UA Negative Negative - 4(70) +++ mg/dL [facility] Blood, UA Negative Negative - 50 Pepito/mcL [facility] Clarity, UA Clear [facility] Color, UA Yellow [facility] Glucose, UA Negative Negative - 1999(110) ++++ mg/dL [facility] Interpretation and review of laboratory results Abnormal [facility] Ketones, UA Negative Negative - 160(16) ++++ mg/dL [facility] Leukocytes, UA Trace Negative - 500+++ Ilia/mcL [facility] Nitrite, UA Negative Negative - Positive [facility] pH, UA 6.5 5 - 9 [facility] Protein, UA Negative Negative - 1999(20) ++++ mg/dL [facility] Spec Grav, UA 1.025 1 - 1.03 [facility] Urobilinogen, UA 0.2 0.2 - 12 mg/dL [facility] Urinalysis macro (dipstick) panel (U)on 12-16-2023 Bilirubin, UA Negative Negative - 4(70) +++ mg/dL [facility] Blood, UA Negative Negative - 50 Pepito/mcL [facility] Clarity, UA Clear [facility] Color, UA Yellow [facility] Glucose, UA Negative Negative - 1999(110) ++++ mg/dL [facility] Interpretation and review of laboratory results Abnormal [facility] Ketones, UA Negative Negative - 160(16) ++++ mg/dL [facility] Leukocytes, UA Trace Negative - 500+++ Ilia/mcL [facility] Nitrite, UA Negative Negative - Positive [facility] pH, UA 6.0 5 - 9 [facility] Protein, UA Negative Negative - 1999(20) ++++ mg/dL [facility] Spec Grav, UA 1.020 1 - 1.03 [facility] Urobilinogen, UA 0.2 0.2 - 12 mg/dL [facility] T4 Free SerPl-mCncon 024 Free T4 [Mass/Vol] 1.1 ng/dL Normal 0.9-1.7 [facility] Comment on above: Order Comment: Speci men Type: BLOOD SPECIMEN Ordering Facility: External Submitter Address: , , Performed By: #### 5 7021-8 #### [facility] CLIA [id number] [address] [place] [address] TSH SerPl-aCncon 12-08-2023 TSH Qn 0.607 m[IU]/L Normal 0.270-4.200 [facility] Comment on above: Order [...] Nassar, et al. 2017 Guidelines of the [place] [employer] for the Diagnosis and Management of Thyroid Disease during and the . Thyroid, 2017:27:3:315-389. Performed By: #### 5 7021-8 #### [facility] CLIA [id number] [address] [place] [address] CBC W Auto Differential pane l (Bld)on 11-20-2023 Basophils (Bld) [#/Vol] 0.04 10*3/uL Normal <0.11 [facility] Comment on above: Order Comment: Speci vishnu Type: BLOOD SPECIMEN Ordering Facility: [facility] OB-CASH APPLICATION CLERK [place] Address: [address] [place], [place] [address] [place] [address] Performed By: #### 5 7021-8 #### [facility] CLIA [id number] [address] [place] [address] Basophils/100 WBC (Bld) 0.6 % Normal [facility] Comment on above: Order Comment: Speci men Type: BLOOD SPECIMEN Ordering Facility: [facility]-CASH APPLICATION CLERK [place] Address: [address] [place] [address] Performed By: #### 5 7021-8 #### [facility] CLIA [id number] [address] [place] [address] Differential cell count method Nom (Bld) Auto Normal [facility] Comment on above: Order Comment: Speci men Type: BLOOD SPECIMEN Ordering Facility: [facility]-CASH APPLICATION CLERK [place] Address: [address] [place] [id number] Performed By: #### 5 7021-8 #### [facility] CLIA [id number] [address] [place] [address] Eosinophils (Bld) [#/Vol] 0.05 10*3/uL Normal <0.46 [facility] Comment on above: Order Comment: Speci men Type: BLOOD SPECIMEN Ordering Facility: [facility] Address: [address] [place] [id number] Performed By: #### 5 7021-8 #### [facility] CLIA [id number] [address] [place] [address] Eosinophils/100 WBC (Bld) 0.7 % Normal [facility] Comment on above: Order Comment: Speci men Type: BLOOD SPECIMEN Ordering Facility: [facility]-CASH APPLICATION CLERK [place] Address: [address] [place] [id number] Performed By: #### 5 7021-8 #### [facility] IA [id number] [address] [place] [address] Erythrocyte distribution width (RBC) [Ratio] 12.9 % Normal 11.5-15.0 [facility] Comment on above: Order Comment: Speci men Type: BLOOD SPECIMEN Ordering Facility: [facility]-CASH APPLICATION CLERK [place] Address: [address] [place] [phone] Performed By: #### 5 7021-8 #### [facility] CLIA [id number] [address] [place] [address] Hematocrit (Bld) [Volume fraction] 35.0 % Low 36.0-46.0 [facility] Comment on above: Order Comment: Speci men Type: BLOOD SPECIMEN Ordering Facility: [facility]-CASH APPLICATION CLERK [place] Address: [address] [place] [phone] Performed By: #### 5 7021-8 #### [facility] CLIA [id number] [address] [place] [address] Hemoglobin (Bld) [Mass/Vol] 11.4 g/dL Low 11.5-15.5 [facility] Comment on above: Order Comment: Speci men Type: BLOOD SPECIMEN Ordering Facility: [facility] Address: [facility] [address] [place] [phone] Performed By: #### 5 7021-8 #### [facility] CLIA [id number] [address] [place] [address] Immature granulocytes (Bld) [#/Vol] 10*3/uL Normal <0.10 [facility] Comment on above: Order Comment: Speci men Type: BLOOD SPECIMEN Ordering Facility: [facility] Address: [facility] [address] [place] [phone] Performed By: #### 5 7021-8 #### [facility] CLIA [id number] [address] [place] [address] Immature granulocytes/100 WBC (Bld) 0.3 % Normal [facility] Comment on above: Order Comment: Speci men Type: BLOOD SPECIMEN Ordering Facility: [facility] Address: [address] [place] [phone] Performed By: #### 5 7021-8 #### [facility] CLIA [id number] [address] [place] [address] Lymphocytes (Bld) [#/Vol] 1.25 10*3/uL Normal 1.00-4.00 [facility] Comment on above: Order Comment: Speci men Type: BLOOD SPECIMEN Ordering Facility: [facility] OB-CASH APPLICATION CLERK [place] Address: [address] [place] [address] Performed By: #### 5 7021-8 #### [facility] CLIA [id number] [address] [place] [address] Lymphocytes/100 WBC (Bld) 18.3 % Normal [facility] Comment on above: Order Comment: Speci men Type: BLOOD SPECIMEN Ordering Facility: [facility]-CASH APPLICATION CLERK [place] Address: [address] [place] [address] Performed By: #### 5 7021-8 #### [facility] CLIA [id number] [address] [place] [address] MCH (RBC) [Entitic mass] 29.9 pg Normal 26.0-34.0 [facility] Comment on above: Order Comment: Speci men Type: BLOOD SPECIMEN Ordering Facility: [facility] Address: [address] [place] [address] Performed By: #### 5 7021-8 #### [facility] CLIA [id number] [address] [place] [address] MCHC (RBC) [Mass/Vol] 32.6 g/dL Normal 30.5-36.0 [facility] Comment on above: Order Comment: Speci men Type: BLOOD SPECIMEN Ordering Facility: [facility]-CASH APPLICATION CLERK [place] Address: [address] [place] [address] Performed By: #### 5 7021-8 #### [facility] CLIA [id number] [address] [place] [address] MCV (RBC) [Entitic vol] 91.9 fL Normal 80.0-100.0 [facility] Comment on above: Order Comment: Speci men Type: BLOOD SPECIMEN Ordering Facility: [facility]-CASH APPLICATION CLERK [place] Address: [address] [place] [address] Performed By: #### 5 7021-8 #### [facility] CLIA [id number] [address] [place] [address] Monocytes (Bld) [#/Vol] 0.52 10*3/uL Normal <0.87 [facility] Comment on above: Order Comment: Speci men Type: BLOOD SPECIMEN [facility]ing Facility: [facility] Address: [address] [place] [address] Performed By: #### 5 7021-8 #### [facility] CLIA [id number] [address] [place] [address] Monocytes/100 WBC (Bld) 7.6 % Normal [facility] Comment on above: Order Comment: Speci men Type: BLOOD SPECIMEN [facility] Address: [address] [place] [address] Performed By: #### 5 7021-8 #### [facility] CLIA [id number] [address] [place] [address] Neutrophils (Bld) [#/Vol] 4.94 10*3/uL Normal 1.45-7.50 [facility] Comment on above: Order Comment: Speci men Type: BLOOD SPECIMEN Ordering Facility: [facility] Address: [address] [place] [id number] Performed By: #### 5 7021-8 #### [facility] CLIA [id number] [address] [place] [address] Neutrophils/100 WBC (Bld) 72.5 % Normal [facility] Comment on above: Order Comment: Speci men Type: BLOOD SPECIMEN Ordering Facility: [facility] Address: [address] [place] [phone] Performed By: #### 5 7021-8 #### [facility] CLIA [id number] [address] [place] [address] Nucleated RBC (Bld) [#/Vol] 10*3/uL Normal <0.01 [facility] Comment on above: Order Comment: Speci men Type: BLOOD SPECIMEN Ordering Facility: [facility]-CASH APPLICATION CLERK [place] Address: [address] [place] [address] Performed By: #### 5 7021-8 #### [facility] CLIA [id number] [address] [place] [address] Nucleated RBC/100 WBC (Bld) [Ratio] 0.0 /100 WBC Normal [facility] Comment on above: Order Comment: Speci men Type: BLOOD SPECIMEN Ordering Facility: [facility]-CASH APPLICATION CLERK [place] Address: [address] [place] [address] Performed By: #### 5 7021-8 #### [facility] CLIA [id number] [address] [place] [address] Platelet mean volume (Bld) [Entitic vol] 11.4 fL Normal 9.0-12.7 [facility] Comment on above: Order Comment: Speci men Type: BLOOD SPECIMEN Ordering Facility: [facility] Address: [address] [place] [address] Performed By: #### 5 7021-8 #### [facility] CLIA [id number] [address] [place] [address] Platelets (Bld) [#/Vol] 167 10*3/uL Normal 150-400 [facility] Comment on above: Order Comment: Speci men Type: BLOOD SPECIMEN Ordering Facility: [facility]-CASH APPLICATION CLERK [place] Address: [address] [place] [address] Performed By: #### 5 7021-8 #### [facility] CLIA [id number] [address] [place] [address] RBC (Bld) [#/Vol] 3.81 10*6/uL Low 3.90-5.20 [facility] Comment on above: Order Comment: Speci men Type: BLOOD SPECIMEN Ordering Facility: [facility]-CASH APPLICATION CLERK [place] Address: [address] [place] [address] Performed By: #### 5 7021-8 #### [facility] CLIA [id number] [address] [place] [address] WBC (Bld) [#/Vol] 6.82 10*3/uL Normal 3.70-11.00 [facility] Comment on above: Order Comment: Speci men Type: BLOOD SPECIMEN Ordering Facility: [facility]-CASH APPLICATION CLERK [place] Address: [facility] [place] [address] Performed By: #### 5 7021-8 #### [facility] CLIA [id number] [address] [place] [address] GESTATIONAL GLUCOSE SCREEN, 1-HOUR, 50 GRAM, NON-FASTINGon 11-20-2023 Glucose [Mass/Vol] 97 mg/dL Normal 74-134 [facility] Comment on above: Order Comment: Speci men Type: BLOOD SPECIMEN Ordering Facility: [facility]-CASH APPLICATION CLERK [place] Address: [facility] [address] [place] [address] Result Comment: [facility] Congress of Obstetricians and Gynecologists ([place]/Adrián) guidelines state a gestational diabetes mellitus positive screen is made, in women not previously diagnosed with overt diabetes, when the 1 hr plasma glucose level is equal to or above 140 mg/dL. [facility] [place] recommends a 135 mg/dL cutoff. Performed By: #### G LTGST #### [facility] CLIA [id number] [address] [place] [address] [place] T4 Free SerPl-mCncon 024 Free T4 [Mass/Vol] 1.0 ng/dL Normal 0.9-1.7 [facility] Comment on above: Order Comment: Speci men Type: BLOOD SPECIMEN [facility]ing Facility: [facility]-CASH APPLICATION CLERK [place] Address: [facility] [place] [place] [address] Performed By: #### 3 016-3, 3024-7 #### [facility] CLIA [id number] [address] [place] [address] [place] TSH SerPl-aCncon 10-22-2023 TSH Qn 4.510 m[IU]/L High 0.270-4.200 [facility] Comment on above: Order Comment: Tammy mares Type: BLOOD SPECIMEN Ordering Facility: [facility]-C[facility] APPLICATION CLERK [place] Address: [address] [place] [address] , [place] [address] Result Comment: If t he patient is , TSH reference range varies by gestational period: First Trimester (weeks 9-12): 0.180-2.990 mIU/L Second Trimester: 0.110-3.980 mIU/L Third Trimester: 0.480-4.710 mIU/L Manuel Grayson et al. A Practical Approach for the Verifications and Determination of Site- and Trimester-Specific Reference Intervals for Thyroid Function tests in . Thyroid, 2019:29:3:412-420. Emanuel Nassar et al. 2017 Guidelines of the [place] Thy[employer] for the Diagnosis and Management of Thyroid Disease during and the . Thyroid, 2017:27:3:315-389. Performed By: #### 3 016-3, 3024-7 #### [facility] CLIA [id number] [address] [place] [address] [place] CBC W Auto Diff Bldon 2023 Hematocrit (Bld) [Volume fraction] 40.1 % Normal 36.0-46.0 [facility] Comment on above: Order Comment: Tammy mares Type: BLOOD SPECIMEN Ordering Facility: External Submitter Address: , , Performed By: #### 5 7021-8 #### [facility] CLIA [id number] [address] [place] [address]96 Hemoglobin (Bld) [Mass/Vol] 13.4 g/dL Normal 11.5-15.5 [facility] Comment on above: Order Comment: Tammy mares Type: BLOOD SPECIMEN Ordering Facility: External Submitter Address: , , Performed By: #### 5 7021-8 #### [facility] CLIA [id number] [address] [place] [address]4077 Platelets (Bld) [#/Vol] 148 10*3/uL Low 150-400 [facility] Comment on above: Order Comment: Speci men Type: BLOOD SPECIMEN Ordering Facility: External Submitter Address: , , Performed By: #### 5 7021-8 #### [facility] CLIA [id number] [address] [place] [address] 35047 CBC W Auto Differential pane l (Bld)on 08-08-2023 Basophils (Bld) [#/Vol] 10*3/uL Normal <0.11 [facility] Comment on above: Order Comment: Speci men Type: BLOOD SPECIMEN Ordering Facility: External Submitter Address: , , Performed By: #### 5 7021-8 #### [facility] CLIA [id number] [address] [place] [address] 39612 Basophils/100 WBC (Bld) 0.3 % Normal [facility] Comment on above: Order Comment: Speci men Type: BLOOD SPECIMEN Ordering Facility: External Submitter Address: , , Performed By: #### 5 7021-8 #### [facility] CLIA [id number] [address] [place] [address] 17512 Differential cell count method Nom (Bld) Auto Normal [facility] Comment on above: Order Comment: Speci men Type: BLOOD SPECIMEN Ordering Facility: External Submitter Address: , , Performed By: #### 5 7021-8 #### [facility] CLIA [id number] [address] [place] [address] 88593 Eosinophils (Bld) [#/Vol] 0.06 10*3/uL Normal <0.46 [facility] Comment on above: Order Comment: Speci men Type: BLOOD SPECIMEN Ordering Facility: External Submitter Address: , , Performed By: #### 5 7021-8 #### [facility] CLIA [id number] [address] [place] [address] 26719 Eosinophils/100 WBC (Bld) 0.9 % Normal [facility] Comment on above: Order Comment: Speci men Type: BLOOD SPECIMEN Ordering Facility: External Submitter Address: , , Performed By: #### 5 7021-8 #### [facility] CLIA [id number] [address] [place] [address] 33491 Erythrocyte distribution width (RBC) [Ratio] 13.7 % Normal 11.5-15.0 [facility] Comment on above: Order Comment: Speci men Type: BLOOD SPECIMEN Ordering Facility: External Submitter Address: , , Performed By: #### 5 7021-8 #### [facility] CLIA [id number] [address] [place] [address] 06379 Immature granulocytes (Bld) [#/Vol] 10*3/uL Normal <0.10 [facility] Comment on above: Order Comment: Speci men Type: BLOOD SPECIMEN Ordering Facility: External Submitter Address: , , Performed By: #### 5 7021-8 #### [facility] CLIA [id number] [address] [place] [address] 07787 Immature granulocytes/100 WBC (Bld) 0.3 % Normal [facility] Comment on above: Order Comment: Speci men Type: BLOOD SPECIMEN Ordering Facility: External Submitter Address: , , Performed By: #### 5 7021-8 #### [facility] CLIA [id number] [address] [place] [address] 98187 Lymphocytes (Bld) [#/Vol] 1.67 10*3/uL Normal 1.00-4.00 [facility] Comment on above: Order Comment: Speci men Type: BLOOD SPECIMEN Ordering Facility: External Submitter Address: , , Performed By: #### 5 7021-8 #### [facility] CLIA [id number] [address] [place] [address] 56212 Lymphocytes/100 WBC (Bld) 24.9 % Normal [facility] Comment on above: Order Comment: Speci men Type: BLOOD SPECIMEN Ordering Facility: External Submitter Address: , , Performed By: #### 5 7021-8 #### [facility] CLIA [id number] [address] [place] [address] 17768 MCH (RBC) [Entitic mass] 31.1 pg Normal 26.0-34.0 [facility] Comment on above: Order Comment: Speci men Type: BLOOD SPECIMEN Ordering Facility: External Submitter Address: , , Performed By: #### 5 7021-8 #### [facility] CLIA [id number] [address] [place] [address] 16410 MCHC (RBC) [Mass/Vol] 33.4 g/dL Normal 30.5-36.0 [facility] Comment on above: Order Comment: Speci men Type: BLOOD SPECIMEN Ordering Facility: External Submitter Address: , , Performed By: #### 5 7021-8 #### [facility] CLIA [id number] [address] [place] [address] 19510 MCV (RBC) [Entitic vol] 93.0 fL Normal 80.0-100.0 [facility] Comment on above: Order Comment: Speci men Type: BLOOD SPECIMEN Ordering Facility: External Submitter Address: , , Performed By: #### 5 7021-8 #### [facility] CLIA [id number] [address] [place] [address] 57342 Monocytes (Bld) [#/Vol] 0.50 10*3/uL Normal <0.87 [facility] Comment on above: Order Comment: Speci men Type: BLOOD SPECIMEN Ordering Facility: External Submitter Address: , , Performed By: #### 5 7021-8 #### [facility] CLIA [id number] [address] [place] [address] 46649 Monocytes/100 WBC (Bld) 7.5 % Normal [facility] Comment on above: Order Comment: Speci men Type: BLOOD SPECIMEN Ordering Facility: External Submitter Address: , , Performed By: #### 5 7021-8 #### [facility] CLIA [id number] [address] [place] [address] 49999 Neutrophils (Bld) [#/Vol] 4.44 10*3/uL Normal 1.45-7.50 [facility] Comment on above: Order Comment: Speci men Type: BLOOD SPECIMEN Ordering Facility: External Submitter Address: , , Performed By: #### 5 7021-8 #### [facility] CLIA [id number] [address] [place] [address] 92039 Neutrophils/100 WBC (Bld) 66.1 % Normal [facility] Comment on above: Order Comment: Speci men Type: BLOOD SPECIMEN Ordering Facility: External Submitter Address: , , Performed By: #### 5 7021-8 #### [facility] CLIA [id number] [address] [place] [address] 91735 Nucleated RBC (Bld) [#/Vol] 10*3/uL Normal <0.01 [facility] Comment on above: Order Comment: Speci men Type: BLOOD SPECIMEN Ordering Facility: External Submitter Address: , , Performed By: #### 5 7021-8 #### [facility] CLIA [id number] [address] [place] [address] 93869 Nucleated RBC/100 WBC (Bld) [Ratio] 0.0 /100 WBC Normal [facility] Comment on above: Order Comment: Speci men Type: BLOOD SPECIMEN Ordering Facility: External Submitter Address: , , Performed By: #### 5 7021-8 #### [facility] CLIA [id number] [address] [place] [address] 66708 Platelet mean volume (Bld) [Entitic vol] 12.1 fL Normal 9.0-12.7 [facility] Comment on above: Order Comment: Speci men Type: BLOOD SPECIMEN Ordering Facility: External Submitter Address: , , Performed By: #### 5 7021-8 #### [facility] CLIA [id number] [address] [place] [address] 73341 RBC (Bld) [#/Vol] 4.31 10*6/uL Normal 3.90-5.20 [facility] Comment on above: Order Comment: Speci men Type: BLOOD SPECIMEN Ordering Facility: External Submitter Address: , , Performed By: #### 5 7021-8 #### [facility] CLIA [id number] [address] [place] [address] WBC (Bld) [#/Vol] 6.71 10*3/uL Normal 3.70-11.00 [facility] Comment on above: Order Comment: Speci men Type: BLOOD SPECIMEN Ordering Facility: External Submitter Address: , , Performed By: #### 5 7021-8 #### [facility] CLIA [id number] [address] [place] [address] 72780 HBV surface Ag Ser Qlon 07-20 HBV surface Ag Ql (S) Negative Normal Negative [facility] Comment on above: Order Comment: Speci men Type: BLOOD SPECIMEN Ordering Facility: [facility] OB-CASH APPLICATION CLERK [place] Address: [facility] [address] [place] [address] Performed By: #### 3 016-3, 3024-7 #### [facility] CLIA [id number] [address] [place] [address] [place] HCV Ab Ser Qlon 08-08-2023 HCV Ab Ql (S) Negative Normal Negative [facility] Comment on above: Order Comment: Speci men Type: BLOOD SPECIMEN Ordering Facility: External Submitter Address: , , Result Comment: The result suggests no evidence of active infection with Hepatitis C virus. Should recent infection be suspected, repeat testing may be considered 4-6 weeks after this draw. Performed By: #### 1 6128-1 #### [facility] IA [id number] [address] [place] [address] [place] HIV 1&2 AB/AG Screen (P24 AG )on 08-08-2023 HIV 1&2 AB/AG Non-Reactive [facility] HIV 1+2 Ab IA Qlon HIV 1 and 2 Ab IA.rapid Nom (S/P/Bld) Normal [facility] Comment on above: Order Comment: Speci men Type: BLOOD SPECIMEN Ordering Facility: [facility] OB-CASH APPLICATION CLERK [place] Address: [facility] [place] [address] Result Comment: Test not indicated. Performed By: #### 3 016-3, 7 #### [facility] CLIA [id number] [address] [place] [address] [place] HIV 1+2 Ab+HIV1 p24 Ag IA Ql Non-Reactive Normal Nonreactive [facility] Comment on above: Order Comment: Speci men Type: BLOOD SPECIMEN Ordering Facility: [facility] OB-CASH APPLICATION CLERK [place] Address: [facility] [address] [place] [address] Performed By: #### 3 016-3, 7 #### [facility] CLIA [id number] [address] [place] [address] [place] HIV immunoassay testing algorithm interpretation (S/P/Bld) [Interp] Normal [facility] Comment on above: Order Comment: Speci men Type: BLOOD SPECIMEN Ordering Facility: [facility] OB-CASH APPLICATION CLERK [place] Address: [facility] [address] [place] [address] Result Comment: No e vidence of HIV-1 or HIV-2 infection. Should recent infection be suspected, repeat testing may be considered 2-3 weeks after this draw. [place] Rev. Code 3701.243(E): This information has been [...] results or diagnoses. Performed By: #### 3 016-3, 7 #### [facility] CLIA [id number] [address] [place] [address] [place] HbA1c (Bld)on 08-08-2023 Average glucose Estimated from glycated hemoglobin (Bld) [Mass/Vol] 105 mg/dL Normal [facility] Comment on above: Order Comment: Speci men Type: BLOOD SPECIMEN Ordering Facility: [facility] OB-CASH APPLICATION CLERK [place] Address: [facility] [address] [place] [address] Result Comment: eAG: (Estimated average glucose) is a calculated value from HgbA1c and is inside account representative of the average blood glucose level in the last 2-3 month period. Performed By: #### 3 016-3, 7 #### [facility] CLIA [id number] [address] [place] [address] [place] HbA1c (Bld) [Mass fraction] 5.3 % Normal 4.3-5.6 [facility] Comment on above: Order Comment: Speci men Type: BLOOD SPECIMEN Ordering Facility: [facility] OB-CASH APPLICATION CLERK [place] Address: [address] [place] [address] Result Comment: [place] Diabetes [employer] guidelines indicate that patients with HgbA1c in the range 5.7-6.4% are at increased risk for development of diabetes, and intervention by lifestyle modification may be beneficial. HgbA1c greater or equal to 6.5% is considered diagnostic of diabetes. Performed By: #### 3 016-3, 3023-10 #### [facility] CLIA [id number] [address] [place] [address] [place] Hepatitis B surface antigeno n 08-08-2023 Hepatitis B Surface Antigen Negative [facility] No Panel Informationon 08-07 [facility] RPR Ser Qlon 08-08-2023 Reagin Ab RPR Ql (S) Non-Reactive Normal Nonreactive [facility] Comment on above: Order Comment: Speci men Type: BLOOD SPECIMEN Ordering Facility: External Submitter Address: , , Result Comment: Rapi d plasma reagin (RPR) test detects non-treponemal antibodies. RPR may be reactive in a variety of infectious and non-infectious conditions. Correlation with clinical picture and with treponemal antibody results is required for final interpretation. Performed By: #### 5 7021-8 #### [facility] CLIA [id number] [address] [place] [address]144 RUBELLA IGG ANTIBODYon 08-07 RUBELLA IGG AB, QUAL Positive Normal Positive [facility] Comment on above: Order Comment: Speci men Type: BLOOD SPECIMEN Ordering Facility: External Submitter Address: , , Result Comment: The result suggests recent or past exposure to Rubella virus or history of Rubella vaccination. Positive result may also be seen due to presence of passively-transferred antibodies. Please correlate with patient's history. Performed By: #### R UBIGG #### [facility] CLIA [id number] [address] [place] [address] [place] Rubella IGG immune statuson 08-08-2023 Rubella immune IgG Positive [facility] [employer] [employer] [facility] Syphilis Total(Unknown Syphi lis Status)on 08-08-2023 [facility]philis [facility]-Reactive [facility] TYPE + SCREENon 08-08-2023 ABO A Normal [facility] Comment on above: Order Comment: Speci men Type: BLOOD SPECIMEN Ordering Facility: External Submitter Address: , , Performed By: #### 5 7021-8 #### [facility] CLIA [id number] [address] [place] [address] HISTORICAL AB SCR STATUS Negative Normal [facility] Comment on above: Order Comment: Speci men Type: BLOOD SPECIMEN Ordering Facility: External Submitter Address: , , Performed By: #### 5 7021-8 #### [facility] CLIA [id number] [address] [place], [place] [address] Rh Nom (Bld) Positive Normal [facility] Comment on above: Order Comment: Speci men Type: BLOOD SPECIMEN Ordering Facility: External Submitter Address: , , Performed By: #### 5 7021-8 #### [facility] CLIA [id number] [address] [place] [address] 72248 TYPE AND SCREEN EXPIRATION 08/11/2023 23:59 Normal [facility] Comment on above: Order Comment: Speci men Type: BLOOD SPECIMEN Ordering Facility: External Submitter Address: , , Performed By: #### 5 7021-8 #### [facility] CLIA [id number] [address] [place], [place] [address] Type and screenon 08-08-2023 Abo/Rh(D) Positive [facility] Drug Screen, Urineon 024 Amphetamine/Metham phetamine Negative [facility] Barbiturate Screen Urine Negative [facility] Benzodiazepine Screen, Urine Negative [facility] Cocaine Metabolite Negative [facility] Mdma Negative [facility] Methadone,Meconium Negative [facility] Opiate Quantitative Urine Negative [facility] Oxycodone Negative [facility] Phencyclidine Negative [facility] Thc Marijuana, Urine Negative [facility] XR Pelvis and Hip - right AP and Lateral frogon 02-20-2023 IMPRESSION: Right intertrochanteric femur bone lesion, similar to prior, and 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 Transcribe Date/Time: Feb 20 2023 9:56A Dictated by: NEREYDA SOUNA MD This examination was interpreted and the report reviewed and electronically signed by: NEREYDA OSUNA MD on Feb 20 2023 10:04AM EST Thank you for allowing us to participate in the care of your patient. Should there be any questions regarding this interpretation, please call [phone]. If you are unable to reach us at the number above, please feel free to contact [facility] at [phone]. DIVISION OF RADIOLOGY * * *Final Report* [...] are unremarkable. DIVISION OF RADIOLOGY Provider, Tom Diaz - 02/20/2023 * * *Final Report* * [...] any questions regarding this interpretation, please call [phone]. If you are unable to reach us at the number above, please feel free to contact [facility] at [phone]. [facility] Study observation (narrative) [facility] XR Pelvis and Hip - right AP and Lateral frogOrdered By: Ccf Provider on 02-20-2023 [facility] CBC W Auto Differential pane l (Bld)on 11-15-2022 Basophils (Bld) [#/Vol] 0.04 10*3/uL <0.11 k/uL [facility] Basophils/100 WBC (Bld) 0.8 % [facility] Differential cell count method Nom (Bld) Auto [facility] Eosinophils (Bld) [#/Vol] 0.11 10*3/uL <0.46 k/uL [facility] Eosinophils/100 WBC (Bld) 2.1 % [facility] Erythrocyte distribution width (RBC) [Ratio] 13.7 % 11.5 - 15.0 % [facility] Hematocrit (Bld) [Volume fraction] 46.7 % High 36.0 - 46.0 % [facility] Hemoglobin (Bld) [Mass/Vol] 15.6 g/dL High 11.5 - 15.5 g/dL [facility] Immature granulocytes (Bld) [#/Vol] <0.10 k/uL [facility] Immature granulocytes/100 WBC (Bld) 0.2 % [facility] Lymphocytes (Bld) [#/Vol] 1.77 10*3/uL 1.00 - 4.00 k/uL [facility] Lymphocytes/100 WBC (Bld) 33.7 % [facility] MCH (RBC) [Entitic mass] 31.8 pg 26.0 - 34.0 pg [facility] MCHC (RBC) [Mass/Vol] 33.4 g/dL 30.5 - 36.0 g/dL [facility] MCV (RBC) [Entitic vol] 95.3 fL 80.0 - 100.0 fL [facility] Monocytes (Bld) [#/Vol] 0.64 10*3/uL <0.87 k/uL [facility] Monocytes/100 WBC (Bld) 12.2 % [facility] Neutrophils (Bld) [#/Vol] 2.68 10*3/uL 1.45 - 7.50 k/uL [facility] Neutrophils/100 WBC (Bld) 51.0 % [facility] Nucleated RBC (Bld) [#/Vol] <0.01 k/uL [facility] Nucleated RBC/100 WBC (Bld) [Ratio] 0.0 /100 WBC [facility] Platelet mean volume (Bld) [Entitic vol] 11.3 fL 9.0 - 12.7 fL [facility] Platelets (Bld) [#/Vol] 154 10*3/uL 150 - 400 k/uL [facility] RBC (Bld) [#/Vol] 4.90 10*6/uL 3.90 - 5.2 0 m/uL [facility] WBC (Bld) [#/Vol] 5.25 10*3/uL 3.70 - 11. 00 k/uL [facility] CBC W Auto Differential pane l (Bld)on 08-09-2022 Basophils (Bld) [#/Vol] 0.03 10*3/uL <0.11 k/uL [facility] Basophils/100 WBC (Bld) 0.6 % [facility] Differential cell count method Nom (Bld) Auto [facility] Eosinophils (Bld) [#/Vol] 0.05 10*3/uL <0.46 k/uL [facility] Eosinophils/100 WBC (Bld) 0.9 % [facility] Erythrocyte distribution width (RBC) [Ratio] 13.6 % 11.5 - 15.0 % [facility] Hematocrit (Bld) [Volume fraction] 42.0 % 36.0 - 46.0 % [facility] Hemoglobin (Bld) [Mass/Vol] 13.5 g/dL 11.5 - 15.5 g/dL [facility] Immature granulocytes (Bld) [#/Vol] <0.10 k/uL [facility] Immature granulocytes/100 WBC (Bld) 0.4 % [facility] Lymphocytes (Bld) [#/Vol] 1.57 10*3/uL 1.00 - 4.00 k/uL [facility] Lymphocytes/100 WBC (Bld) 29.0 % [facility] MCH (RBC) [Entitic mass] 30.5 pg 26.0 - 34.0 pg [facility] MCHC (RBC) [Mass/Vol] 32.1 g/dL 30.5 - 36.0 g/dL [facility] MCV (RBC) [Entitic vol] 94.8 fL 80.0 - 100.0 fL [facility] Monocytes (Bld) [#/Vol] 0.47 10*3/uL <0.87 k/uL [facility] Monocytes/100 WBC (Bld) 8.7 % [facility] Neutrophils (Bld) [#/Vol] 3.27 10*3/uL 1.45 - 7.50 k/uL [facility] Neutrophils/100 WBC (Bld) 60.4 % [facility] Nucleated RBC (Bld) [#/Vol] <0.01 k/uL [facility] Nucleated RBC/100 WBC (Bld) [Ratio] 0.0 /100 WBC [facility] Platelet mean volume (Bld) [Entitic vol] 11.1 fL 9.0 - 12.7 fL [facility] Platelets (Bld) [#/Vol] 145 10*3/uL Low 150 - 400 k/uL [facility] RBC (Bld) [#/Vol] 4.43 10*6/uL 3.90 - 5.2 0 m/uL [facility] WBC (Bld) [#/Vol] 5.41 10*3/uL 3.70 - 11. 00 k/uL [facility] XR Pelvis and Hip - [...] any questions regarding this interpretation, please call [phone]. If you are unable to reach us at the number above, please feel free to contact [facility] at [phone]. DIVISION OF RADIOLOGY * * *Final Report* [...] the interval. DIVISION OF RADIOLOGY Provider, Tom Rita [facility] - 08/01/2022 * * *Final Report* * [...] any questions regarding this interpretation, please call [phone]. If you are unable to reach us at the number above, please feel free to contact [facility] at [phone]. [facility] Rad[facility] Study observation (narrative) [facility] XR Pelvis and Hip - right AP and Lateral frogOrdered By: Ccf Provider on 08-01-2022 [facility] Ambulatory Visit Summaryon 0 05-26-2022 Ambulatory Visit Summary GERARDOROD OLIVAREZN :1990 Visit Date:05/26/2022 Ambulatory Visit Instructions Your [...] Up with CHELSEA KRAUS DO When: Where: [facility] [address] [place] [address]- Medications What How Much When Why Instructions New amoxicillin (amoxicillin 500 mg Cap) 1 Capsules By Mouth Every 12 hours Strep pharyngitis Duration: 10 Days Pickup at [facility] 1985 Unchanged biotin Contact prescribing physician if [...] physician if questions or concerns Pharmacy Information [facility]: [address] [place], [place] [phone] Allergies No Known Allergies Problems Ongoing - [...] these instructions at home: Medicines ? Take lmlo-dcg-auijirp and prescription medicines only as told by [...] cup (more content not included)... 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 No anti-gsv-grnfrqu medications today. Review of Systems PHQ Score [...] day(s), # 20 cap(s), Refills(s) 0, Pharmacy: [facility] 1985, 172, cm, 05/26/22 9:34:00 [...] Acute pharyngitis, unspecified) Ordered: Rapid Strep POC 35922 Follow-up With When Contact Information CHELSEA KRAUS DO [facility] [address] [place] [address]- Additional Instructions: Patient Education Strep Throat, Adult, Rfmj-em-Hjez BMI for Adults Problem List/Past Medical History [...] Strep POC Result: Positive (05/26/22 09:56:00) Normal [facility] Comment on above: Result Comment: Elec [...] these instructions at home: Medicines ? Take pevq-dlo-mmvbrkv and prescription medicines only as told by [...] 09/23/2008 Document Revised: 06/25/2019 Document Reviewed: 06/25/2019 [email or web address] Patient Education ? 2019 [employer]. Nutrition BMI for Adults Body mass index (BMI) is a number that is calculated from a person's weight and height. BMI may help to estimate how much of a person's weight is composed of fat. BMI can help identify those who may be (more content not included)... Normal [facility] Coding Summary.on 02-26-2022 Coding Summary. [id number] Gh0bW w+PGhlYWQ+MU5EOAXqK72rqUZ pxM8RE5aQZE7AXWGEZKPTYV6N NI7kjAY8VCidN8CqkiWj NawhkZAoQG18OLr1DAM9jFtvK PljeJ2tpBMyW1z0HfVrZS16dA 63HYkrTBDrThP6CuZjgpakmMW y J6jtJwOjiEZdKkb+PHRhYmxlI HdpZHRoPScxMDAlJyBzdHlsZT 8oAo8nXJTeBYXicOctyVErWdB j q3tkLZJpDIykBH3dkMvrE1Fvk EA2YRVhd2i8Bl17tDL+PHRkIH A6mUxqRBumo039WbDfw7rbTTU 3 xZPeTIirXTQ8E07ik5X8SSAqB FFeCPM8tOE0hW2qiQtonxavH7 UifEWfSiC2ALF0mDQezF9smLu n vadmyL8oNfj+Z62NSJ4RTNGGZ J1POif8H1ZaYnfuvNR+PC90YW PzYA31uPDysBHzf7lkiNm7UiK w QPCrGEN7zNvuPBycj7YoPSJmL 66jjIVjw1X6GJXiiNfelBQwWu SrhZN4pL8mZWfrkhloy1pkxze n Kkaum2mtqx98yO77U87pWBazG VAdRAH8SCBjNYImfLljhh8xzK 9wIi8+YOkph2tti0kusLh0IgA w DUMtgmCaiXyyENB5r0DmOs27W 3MbhXkbc5QjTyw9nl32hTJzl1 V2gJV0FOqjAMElwJ5dIHpgKoT 6 MLSoUvQeuI63nESlLQhiVb4at MgytNsyBC7vNKYaaugjKNRqnK 1xAHCztBFbnJwcLF9fPZSgfub m x655JkCgDHS0ZLNhsYSeF9Fqk B5aXhOpMHKpFOInE8BqpMLyYQ kcO955BJsfEfN4SUMqjbEdQ1R s TFNwgPuqRoR9k0A9Bh0Wz3Bar gghDAW9POuuRECdQfE8VgOhQi B2E3RgIik5MAJpoSpeRR9nA3H h GBBadwvdfsaagND9NPRjAKRri V86hVSwRTxaPo6ir9J2x022QK TuPYXkoT15Ih7lnLmbUQYcrTL U uW4mhpeyw9fpevefZiUxUUApI Om1DUi2MUCytTcgGaCqRNG8Po S7TDM9rZAyfD4fbQvxaafhdY4 w Oyc+P67gtU9kJBY0XOC2jxhpB VArxnFlRS24FN81G9XgExvwgX FibGU+ONJrvbDavYiwFT6eBnF j z5pgw3CfHSkuX0RvMSCkRLwmI ky9RCAuOHC6rOZ0gU8eTCCaWE eph6N7yLG0Z4SrovDitu3gu5a s FAHbTHbdI47kePDie3F7BFWix EC1USIatHrjZhOolE88Qft+PG IjlCeem4CvSfgsq6lhs4iojCx 9 XoYoVVMopcTexAdvNBG0w2SlP f72S76nCCpfDAOnCXGhWUMgEL IrpMbyvb6lcL6eRe7+PGNvbCB 3 wCO6hM9zUHViIbD7ABtnK306I oFdwFUgQdlwx5str2kctOr0Iw JhITWbpzYgcEvgPNP6q1JiNp7 8 M62sHDxeYBPaAAFnLKZwVAUvx Ltbhx4miG4oGb7+BV5pr2ztaw 53hO93eTZ+YSVcVCI6rDtyNBz w LDWkaK8yIEtxNxN9FXObRgRaa T81zMAzBReoHt4wyIajlEblUS 0pIXYjuuijn169UeCjk1qlBFF w sOUjXCzhBCR1P03zb0U7UDAyU FKoDFM7aGH6wM2zuWbwncwdzC McpBswwxFpeFrmPBkrCWreQ81 6 IHRvcDsnPlBhdGllbnQgTmFtZ Wq5U8SoRlg6LADwcXesJF2xvG TqENdrUm1wbExelXgpYT1uZLM p uydra579VbUcg6xiNEKotKYqG BbmIRW5A79pk2O9XBRzPSDmBJ P4xNE9sB4wbJmbzopmxGKvoJr g xnVcjVafVSfwZMzjZ590AUWye LylVuOspiOwZCFadRK6ZS35QN 03gLYrx0O7oEU9D9YdHSMsxtn t vshtqIL2JJXcSZJioY86Up4tc TffZa8pCNHmSHW4LSArnMVuE2 GjxH8nXuWgPEQzGOTcS7FbrDM t JIwqI200QUeyYdD2NRNbueGnR 5OaMDCqxQepQqB8a5J7Ju0XP9 J4QI32DO38aWJuh0N3oZN9E3T h JTLscgkjwvknhTD2SURmWROcd X14Lm7prHbePl0wIMPmMOH2CC VfuZVlX6WxoN8dGuVvVZMkUCQ w M3JvsMWmZYbvR362DRwnGlI0E WWkbfJnW7ZyVIWbfYbtRwI4l8 R4Pw4VPXh4EO50KC71kBZdb2Z 5 gWO6M8HsGPKlbjjwiompyDV3S WXoJZUceT80Bj1ncZpuTo5qZR NxUYU4KUVsyTThQ0HqxQ3sHvQ j VGGvNHXpC1PveLCsHXarJ664U LpbRaV2RWEqjlKkD7UxAOPfnH htQfA2c0N8Be2EVOFcNV79UKU 5 tKX9OE93HV03C2UxIxhssHZvv +PHRhYmxlIHdpZHRoPScxMD EdDxRnsMilEK1dRj1uEFXwXVK v xNsiqDAjKtZeh1juUXWiAJzkS K6grZpxO7BwsVZ9VFAfb1n7Bb 09X98hE0NxnFQ+NADxaNF4gIZ 0 pU4iHhSwPbC0FYpqI649LiBtp XMkHrgvo7pyv6gdnJv2MxD1KJ WkwtXclObfKJM5h9FiMa77E08 s IHdpZHRoPSIxNSUiIHZhbGlnb x3meI6nAr3+GDSrqRG6vNP4jM 3fXiZhDkN6TDvkC491YpLexGR v Ivcvj3txu2luuSv5XcHxDSOdf hUrbFamKVT5a3MbOd14U5HnjA ntz0YnUgu8cz87lVEiw8Q1gDN 9 O5MjVJMusihzpVLcdCfhUU0cL IDmtoikZIZerR8cODRjT8x9Wo KdSfN1MVjzT5KyqyJ2DOGrlFA g ONlvNGK6W53yi9Y9GZUqZEGcJ FE6fAC7iI4raKqsfntgnPBnnM yqxqKeiMqbMSefBTbeM767DXR v cDagVRKahY3lURJogVTbdHprD Y4hXEPatplsDpxYXByAHBvSVj rrIWAKGV41N8FiKps9TUFtxDb s LK9ytVJsMQljVs0kdUpvuXotT U0nOCQaygmqFYIuoW7oCOLlgK WpvPvcFL2yQMFxnoqsf005WnU x BUM5SCZhkOReG7JojB6xYoEuS MOvMOBhR3GweQCsQFotZ898KZ heKfY9YDHoswEpM4DsGWUwgGn u FiD6o7D3Vc3jWC4gSO7mVVtfZ U23DC18eACus8T4cLH4U6OmIW ArzpvkhonirUP7ESBxVPTokH3 7 lTDbDTgzFk8ip1C2n099JXTeU ERbyM76Ip6znKesYADvzMTIxB 8cffrml8fmrmoiTsDmMKNhZUs 0 SYi1PAFmcCmgLdZhLXE3VrC5P CR0hUArqX5vnNhikujjhP5yZf c+BeDxXTJfskQ3N5RaPuf5FUR z yFimQY4bvEMkGPxgKx8tyDtru IwkDX8dSJSjblmzZOHafI1tXG EiuZTfcLtmBF6wPMEiytqkd17 0 OmYtKWX4JIJmrUPuX1DciV4kP xTvXTEaYSDaP2QhuHTaQRowK9 00RKqkNvN6OTGdyaYxU7YkLHW s tHhqGbO8j5K7Lr1STH3cxKT7F 1XfFnp9MBMwjMsoXY2yfQNwPU rzJw6pbAfkgXkjSM7uIKTtisr w YLZvkL3yWCPxkRIsqYggXR9xT OBscjafn688DqDaZGL5LUTijT QiY2ZkoI9xLzBkYQSkPVHuW1V l tYRyOLzzD546XXdlRoH9JRCyp jEqO1FrYNZhwPwxAkN9p8K2Bx 1WjVLwM1PjZ1k4N0KrJqufjIG + WB35RJYmUI46vDKjcKIar0qal Zc8BlTbVHEzYLD1bSxqATidw9 QvPCHcE55cpDCzk7H8OHJblLk h tIClDlSczWU9tH8wGCqbisxcf 8afujnaMaxpf6wyjs33cU18L5 9sIHdpZHRoPSIzMCUiIHZhbGl n zh8zeV3lWu9+OILmwTD0zJE8v E0lHjCkKlH3IXweQ729IzKpxK VzMlnvr8vin3ozpJw4FjLvFST g mgLvxFrsFYN9k2KpSd90K93iQ HdpZHRoPSIyMCUiIHZhbGlnbj 7dyW6pDa5+GV6qd2lfxg53tN9 8 dHI+FIOwKHB8bOetZTmlNATog E5vKQgzEgI5MBGiPiFluD34bU KrPYesLg8uuTrtiBkvLL5aHZU p gyesp166AkIrn3xhCIDmcQGhA TjfSVS1F31zx9S3FBNlIANvQB J0rMC8jZ5rjSeostrpkQWznJb g vlPyfYeeFQwjDFokA174CEIun IswKqSgxRWoH5pvqqVBPD2wXf wvdGQ+ROEjTYV4qLxcTEluELL k cH8aDZZcY3v1WuDzEnH8SDzvX 8PhrgH4ZGWhfSFzGFEpiOUAfA 1fyrkqj4pbnzgoKpKqYBTbJMe 0 UQs5YWPdkYzbMmZrGOV1DwT1G QT9zYNepI5coCjfclpgnF6yDx c+RklOOjwvdGQ+RQKsTHJ9uTv l KLzhMAUusZ7tBLRjS8g3ZcXlT iT8HSorL8JpktC2NNZjhBTmYL SxeVDWgA1sqcjua3iqdariSoM w TIQzRAl7BQs7WSFrwIilYcEtZ CX4XuB1AYC3hIXpnL0qeNtzqm fakO1rCjc+TVJOOjwvdGQ+PHR k TYV6gYhvPXgzXJUlaT3aSBQxQ 1p9GxPdXuR7CUqzC4ZfwhM6OC NckQRyXWHwhNTWzH5gkfvzf3e v pnglTrTnWGJdMZr3CUy4UYPtj PhrZcCmSJX9ZbI7QTF3qNLymR 6zmFasexpgwT3rCrl+FHK8MKR 6 BG67RU46L6WhBbknwIXspUS+P HRhYmxlIHdpZHRoPScxMDAlJy OxmFwnQJ2hBd7eULJyZRBpkDn h cHNl (more content not included)... Normal [facility] Discharge Instructionson Discharge Instructions [id number] Normal [facility] ED Clinical Summaryon 2021 ED Clinical Summary [place] [id number] ED Clinical Summary Person Information Name: JESSEE ALMODOVAR/[facility] Age: 32 Years : 1990 Sex: Female Language: Slovak PCP: Marital Status: Phone: [phone] Visit Id: Visit Reason: Foot pain-swelling; HURT [...] 02/23/2022 11:07:01 02/23/2022 11:07:01 ADDRESS: [place] [facility] [id number] PHYS DOC NOTES: MEDICAL INFORMATION: Prescriptions Given: PATIENT EDUCATION INFORMATION: Instructions: Foot Sprain; How to Use Cold Therapy, Exbw-rg-Ztwv; Elastic Bandage and RICE Therapy Follow up: With: Address: When: [facility], [address] [place], [place] [id number] [facility] In 3 days 02/26/2022 Comments: Follow-up with your primary care provider in 3 to 5 days. If symptoms worsen, do not improve, or new symptoms arise please report back to emergency department for further evaluation. DIAGNOSIS: Sprain of left foot Normal [facility] ED Note-Physicianon 02-24-20 ED Note-Physician Basic [...] In 3 days 02/26/2022 [facility] [address] [place], [place] [id number] Business (1) Additional Instructions: Follow-up with your primary care provider in 3 to 5 days. If symptoms worsen, do not improve, or new symptoms arise please report back to emergency department for further evaluation. Patient Education Foot Sprain How to Use Cold Therapy, Ytvu-xv-Jfmp Elastic Bandage and RICE Therapy Attestation Patient seen and evaluated by the physician hospital aides and assistants teacher. Attending physician was present in the emergency department and supervised care. This visit was performed by both the physician and an APC. I performed all aspects of the MDM as documented. This report was transcribed using voice recognition software. Every effort was made to ensure accuracy, however, inadvertently computerized winery cellar hand mistakes may be present. Appropriate healthcare PPE [...] medications Ho (more content not included)... Normal [facility] Comment on above: Result Comment: Elec [...] This may take several hours. ? Take jzzx-pdn-eoonhcg and prescription medicines only as told by [...] is no (more content not included)... Normal [facility] ED Patient Summaryon 022 ED Patient Summary (Inserted Image. Kelsi ble to display) [address] [address] Patient Discharge Instructions Person Information Name: JESSEE ALMODOVAR Age: 32 Years Arrival Date: 02/23/2022 09:05:13 Discharge Diagnosis: Sprain of left foot Primary Care Physician: Provider Information Primary Provider: Chayo Anne DO Advanced Senior Mobile Developer:None The exam and treatment you received in the Emergency Department were for an urgent problem and are not intended as complete care. It is important that you follow up with a doctor, nurse practitioner, or physician?s hospital aides and assistants teacher for ongoing care. If your symptoms become worse or you do not improve as expected and you are unable to reach your usual health care provider, you should return to the Emergency Department. We are available 24 hours a day. JESSEE ALMODOVAR has been given the following list of patient education materials, prescriptions and follow-up instructions: Follow-up Instructions: With: Address: When: [facility], [address] [place] [id number] Business (1) In 3 days 02/26/2022 [...] Foot Sprain; How to Use Cold Therapy, Igrc-cm-Jcdr; Elastic Bandage and RICE Therapy A MESSAGE TO ALL PATIENTS REGARDING OPIOIDS PRESCRIPTION OPIOIDS: WHAT YOU NEED TO KNOW Prescription opioids can be used to help relieve yshddein-ps-efmvqp pain and are often prescribed following a [...] guidance from the Food and Drug Administration (www.fda.gov/Drugs/Resour cesForYou). ? Visit www.cdc.gov/ (more content not included)... Normal [facility] XR Foot 3+ Views Lefton XR [...] DO Transcribed by: SUZY Technologist: TIM Normal [facility] XR Pelvis and [...] any questions regarding this interpretation, please call [phone]. If you are unable to reach us at the number above, please feel free to contact [facility] at [phone]. DIVISION OF RADIOLOGY * * *Final Report* [...] joint appears preserved. DIVISION OF RADIOLOGY Provider, [facility] - 02/19/2022 * * *Final Report* * [...] any questions regarding this interpretation, please call [phone]. If you are unable to reach us at the number above, please feel free to contact [facility] at [phone]. [facility] XR Pelvis and Hip - right AP and Lateral frogOrdered By: Ccf Provider on 02-19-2022 [facility] XR Pelvis and Hip - right AP and Lateral frogon 02-18-2022 Radiology Study observation (narrative) [facility] CT ABD/PELV W CONon 02-12-20 CT ABD/PELV W CON EXAMINATION: CT ABD/ PELV W CON, 02/09/2022 8:33 AM EDT HISTORY: [...] by: EMELIA STEWART Date: 2022-02-11 07:23 Normal [facility] US PELVIS AND TRANSVAGon US PELVIS [...] by: JENNIFER HARTLEY Date: 2022-01-08 14:12 Normal [facility] UA DIP, URINE (POC)on 2021 BILIRUBIN UA (POCT) Negative Negative [facility] CLARITY UA (POCT) Cloudy [facility] COLOR UA (POCT) Yellow [facility] GLUCOSE UA (POCT) Negative Negative mg/dL [facility] HEMOGLOBIN/BLOOD UA (POCT) Trace-intact Abnormal Negative [facility] KETONE UA (POCT) Negative Negative mg/dL [facility] LEUKOCYTES UA (POCT) Small Abnormal Negative [facility] NITRITE UA (POCT) Negative Negative [facility] PH UA (POCT) 6.5 4.5 - 8.0 [facility] Protein Ql (U) Negative Negative mg/dL [facility] SPECIFIC GRAVITY UA (POCT) 1.015 1.005 - 1.030 [facility] UROBILINOGEN UA (POCT) 0.2 E.U./dL Normal E.U./dL [facility] Large Joint Arthro/Inj: R gr eater trochanteric bursa [facility] Vital Signs Date Time Vital Sign Value Performing Clinician Facility 11-30-2024 14:55-0400 Body mass index (BMI) [Ratio] 24.68 kg/m2 Guillaume Pedro DO Work Phone: [facility] 11-30-2024 14:55-0400 Body weight 82.56 kg Guillaume Pedro DO Work Phone: [facility] 11-30-2024 14:55-0400 Diastolic blood pressure 84 mm[Hg] Guillaume Perdo DO Work Phone: [facility] 11-30-2024 14:55-0400 Systolic blood pressure 138 mm[Hg] Guillaume Pedro DO Work Phone: [facility] 10-26-2024 09:24-0400 Body height 182.9 cm Guillaume Pedro DO Work Phone: [facility] 10-26-2024 09:24-0400 Body mass index (BMI) [Ratio] 24.47 kg/m2 Guillaume Pedro DO Work Phone: [facility] 10-26-2024 09:24-0400 Body weight 81.83 kg Guillaume Pedro DO Work Phone: [facility] 10-26-2024 09:24-0400 Diastolic blood pressure 78 mm[Hg] Guillaume Pedro DO Work Phone: [facility] 10-26-2024 09:24-0400 Systolic blood pressure 122 mm[Hg] Guillaume Pedro DO Work Phone: [facility] 04-06-2024 09:32-0500 Body mass index (BMI) [Ratio] 26.46 kg/m2 Franny COSTELLO Work Phone: [facility] 04-06-2024 09:32-0500 Body weight 89.72 kg Franny Tickfaw PA Work Phone: [facility] 04-06-2024 09:32-0500 Diastolic blood pressure 80 mm[Hg] Franny Tickfaw PA Work Phone: [facility] 04-06-2024 09:32-0500 Systolic blood pressure 120 mm[Hg] Franny Madan PA Work Phone: [facility] 02-18-2024 10:23-0400 Body mass index (BMI) [Ratio] 30.42 kg/m2 Franny Tickfaw PA Work Phone: [facility] 02-18-2024 10:23-0400 Body weight 103.15 kg Franny Madan PA Work Phone: [facility] 02-18-2024 10:23-0400 Diastolic blood pressure 68 mm[Hg] Franny Madan PA Work Phone: [facility] 02-18-2024 10:23-0400 Systolic blood pressure 112 mm[Hg] Franny Madan PA Work Phone: [facility] 02-10-2024 13:39-0400 Body mass index (BMI) [Ratio] 29.83 kg/m2 Guillaume Pedro DO Work Phone: [facility] 02-10-2024 13:39-0400 Body weight 101.15 kg Guillaume Pedro DO Work Phone: [facility] 02-10-2024 13:39-0400 Diastolic blood pressure 70 mm[Hg] Guillaume Pedro DO Work Phone: [facility] 02-10-2024 13:39-0400 Systolic blood pressure 120 mm[Hg] Guillaume Pedro DO Work Phone: [facility] 01-27-2024 10:17-0400 Body mass index (BMI) [Ratio] 29 kg/m2 Franny Madan PA Work Phone: [facility] 01-27-2024 10:17-0400 Body weight 98.34 kg Franny Madan PA Work Phone: [facility] 01-27-2024 10:17-0400 Diastolic blood pressure 60 mm[Hg] Franny COSTELLO Work Phone: [facility] 01-27-2024 10:17-0400 Systolic blood pressure 110 mm[Hg] Franny COSTELLO Work Phone: [facility] 01-13-2024 09:37-0400 Body mass index (BMI) [Ratio] 28.87 kg/m2 Guillaume Pedro DO Work Phone: [facility] 01-13-2024 09:37-0400 Body weight 97.89 kg Guillaume Pedro DO Work Phone: [facility] 01-13-2024 09:37-0400 Diastolic blood pressure 64 mm[Hg] Guillaume Pedro DO Work Phone: [facility] 01-13-2024 09:37-0400 Systolic blood pressure 110 mm[Hg] Guillaume Pedro DO Work Phone: [facility] 12-30-2023 09:41-0400 Body mass index (BMI) [Ratio] 27.96 kg/m2 Guillaume Pedro DO Work Phone: [facility] 12-30-2023 09:41-0400 Body weight 94.8 kg Guillaume Pedro DO Work Phone: [facility] 12-30-2023 09:41-0400 Diastolic blood pressure 72 mm[Hg] Guillaume Pedro DO Work Phone: [facility] 12-30-2023 09:41-0400 Systolic blood pressure 120 mm[Hg] Guillaume Pedro DO Work Phone: [facility] 12-16-2023 09:36-0400 Body mass index (BMI) [Ratio] 27.69 kg/m2 Guillaume Pedro DO Work Phone: [facility] 12-16-2023 09:36-0400 Body weight 93.89 kg Guillaume Pedro DO Work Phone: [facility] 12-16-2023 09:36-0400 Diastolic blood pressure 74 mm[Hg] Guillaume Pedro DO Work Phone: [facility] 12-16-2023 09:36-0400 Systolic blood pressure 118 mm[Hg] Guillaume Pedro DO Work Phone: [facility] 11-13-2023 11:34-0400 Body height 185.4 cm Catrina Hernandez MD Work Phone: [facility] 11-13-2023 11:34-0400 Body mass index (BMI) [Ratio] 26.31 kg/m2 Catrina Hernandez MD Work Phone: [facility] 11-13-2023 11:34-0400 Body weight 90.45 kg Catrina Hernandez MD Work Phone: [facility] 11-13-2023 11:34-0400 Diastolic blood pressure 76 mm[Hg] Catrina Hernandez MD Work Phone: [facility] 11-13-2023 11:34-0400 Systolic blood pressure 122 mm[Hg] Catrina Hernandez MD Work Phone: [facility] 10-16-2023 10:27-0400 Body mass index (BMI) [Ratio] 25.33 kg/m2 Hector Mancear MD Work Phone: [facility] 10-16-2023 10:27-0400 Body weight 87.09 kg Hector Mancera MD Work Phone: [facility] 10-16-2023 10:27-0400 Diastolic blood pressure 70 mm[Hg] Hector Mancera MD Work Phone: [facility] 10-16-2023 10:27-0400 Systolic blood pressure 116 mm[Hg] Hector Mancera MD Work Phone: [facility] 02-25-2023 13:16-0500 Body height 185.4 cm Link Mckinney MD Work Phone: [facility] 02-25-2023 13:16-0500 Body weight 76.67 kg Link Mckinney MD Work Phone: [facility] 07-10-2022 15:15-0400 Body height 181.61 cm Imad Asaad Other [employer] Other 07-10-2022 15:15-0400 Body mass index (BMI) [Ratio] 24.48 kg/m2 Imad Asaad Other [employer] Other 07-10-2022 15:15-0400 Body weight 80.74 kg Imad Asaad Other [employer] Other 07-10-2022 15:15-0400 Diastolic blood pressure 78 mm[Hg] Imad Asaad Other [employer] Other 07-10-2022 15:15-0400 Systolic blood pressure 130 mm[Hg] Imad Asaad Other [employer] Other 05-26-2022 09:29-0500 Blood Pressure Location Roxanne MOSLEY [facility] 05-26-2022 09:29-0500 Body temperature 98.42 [degF] Roxanne MOSLEY [facility] 05-26-2022 09:29-0500 Diastolic blood pressure 78 mm[Hg] Roxanne MOSLEY [facility] 05-26-2022 09:29-0500 Heart rate 115 /min Roxanne MOSLEY [facility] 05-26-2022 09:29-0500 SaO2% (BldA) [Mass fraction] 98 % Roxanne MOSLEY [facility] 05-26-2022 09:29-0500 Systolic blood pressure 120 mm[Hg] Roxanne MOSLEY [facility] 02-23-2022 09:10-0400 Body temperature 98.42 [degF] Chayo Anne [facility] 02-23-2022 09:10-0400 Diastolic blood pressure 67 mm[Hg] Chayo Anne [facility] 02-23-2022 09:10-0400 Heart rate 88 /min Chayo Anne [facility] 02-23-2022 09:10-0400 Respiratory rate 18 /min Chayo Anne [facility] 02-23-2022 09:10-0400 SaO2% (BldA) [Mass fraction] 98 % Chayo Anne [facility] 02-23-2022 09:10-0400 Systolic blood pressure 141 mm[Hg] Chayo Anne [facility] Encounters Encounter Date Encounter Type Care Provider Facility Start: 11-30-2024 End: 11-30-2024 ambulatory GUILLAUME PEDRO Not Available Start: 11-30-2024 End: 11-30-2024 Office outpatient visit 15 minutes Guillaume Pedro DO Work Phone: [facility] Comment on above: Low grade squamous i ntraepithelial lesion on cytologic smear of cervix (LGSIL); Pap smear with atypical squamous cells, cannot exclude high grade squamous intraepithelial lesion (ASC-H) Start: 11-30-2024 End: 11-30-2024 Bamboo flowsheet Guillaume Perdo DO Work Phone: [facility] Start: 11-30-2024 End: 11-30-2024 Bamboo flowsheet Guillaume Pedro DO Work Phone: [facility] Start: 10-26-2024 End: 10-26-2024 Bamboo flowsheet Guillaume Pedro DO Work Phone: [facility] Start: 10-26-2024 End: 10-30-2024 Bamboo flowsheet Guillaume Pedro DO Work Phone: [facility] Start: 10-26-2024 End: 10-30-2024 Clinisync Result Encounter Guillaume Pedro DO Work Phone: [facility] Unsolicited Start: 10-26-2024 End: 10-26-2024 Patient encounter procedure Guillaume Pedro DO Work Phone: [facility] Work Phone: Start: 10-26-2024 End: 10-26-2024 Periodic preventive med est patient 18-39 yrs Guillaume Pedro DO Work Phone: [facility] Comment on above: Well woman exam with routine gynecological exam Start: 10-26-2024 End: 10-26-2024 ambulatory GUILLAUME PEDRO Not Available Start: 08-03-2024 End: 08-03-2024 ambulatory GUILLAUME PEDRO Not Available Start: 07-16-2024 End: 07-16-2024 ambulatory ANUPAMA BROWN Facility:[facility] Start: 04-06-2024 End: 04-06-2024 care visit Franny COSTELLO Work Phone: [facility] Comment on above: 6 weeks f ollow-up; Anxiety and depression (CMS/HCC); Thyroid disease (CMS/HCC) Start: 04-06-2024 End: 04-06-2024 ambulatory FRANNY HAGER Not Available Start: 02-24-2024 End: 02-24-2024 Clinisync Result Encounter [...] 02-18-2024 flow sheet Franny COSTELLO Work Phone: [facility] Comment on above: Third trimester [...] Start: 02-05-2024 End: 02-05-2024 ambulatory ANUPAMA BROWN Facility:[facility] Start: 01-27-2024 End: 01-27-2024 Bamboo flowsheet [...] constipation type Start: 01-19-2024 End: 01-19-20[facility] Start: 01-13-2024 End: 01-13-2024 Bamboo flowsheet Guillaume Pedro DO Work Phone: [facility] Start: 01-13-2024 End: 01-13-2024 Bamboo flowsheet Guillaume Pedro DO Work Phone: [facility] Start: 01-13-2024 End: 01-13-2024 ambulatory GUILLAUME PEDRO Not Available Start: 01-13-2024 End: 01-13-2024 flow sheet Guillaume Pedro DO Work Phone: [facility] Comment on above: 31 weeks gestation o f Start: 01-05-2024 End: 01-05-20[facility] Start: 12-30-2023 End: 12-30-2023 Bamboo flowsheet Guillaume Pedro DO Work Phone: [facility] Start: 12-30-2023 End: 12-30-2023 Bamboo flowsheet Guillaume Pedro DO Work Phone: [facility] Start: 12-30-2023 End: 12-30-2023 flow sheet Guillaume Pedro DO Work Phone: [facility] Comment on above: Third trimester preg lencho; Thyroid disease (CMS/HCC); Excessive growth affecting management of in third trimester, single or unspecified fetus; Pre-existing hypertension during , antepartum, unspecified pre-existing hypertension type Start: 12-30-2023 End: 12-30-2023 ambulatory GUILLAUME PEDRO Not Available Start: 12-16-2023 End: 12-16-2023 Bamboo flowsheet Guillaume Pedro DO Work Phone: [facility] Start: 12-16-2023 End: 12-16-2023 Bamboo flowsheet Guillaume Pedro DO Work Phone: [facility] Start: 12-16-2023 End: 12-16-2023 ambulatory GUILLAUME PEDRO Not Available Start: 12-16-2023 End: 12-16-2023 flow sheet Guillaume Pedro DO Work Phone: [facility] Comment on above: Second trimester pre gnancy; Thyroid disease ([facility]/HCC) Start: 12-08-2023 End: 12-08-2023 ambulatory GUILLAUME R PEDRO Facility:[facility] Start: 11-20-2023 End: 11-20-2023 ambulatory FRANNY Grayson MADAN Facility:[facility] Start: 11-13-2023 End: 11-13-2023 Office outpatient visit 25 minutes Catrina Hernandez MD Work Phone: [facility] [place] Comment on above: 24 weeks gestation o f (Primary Dx); Hypothyroidism affecting , antepartum; Generalized anxiety disorder; Hypertension affecting in second trimester; Macrosomia of fetus affecting management of mother in second trimester, single or unspecified fetus Start: 10-22-2023 End: 10-22-2023 ambulatory GUILLAUME R PEDRO Facility:[facility] Start: 10-16-2023 End: 10-16-2023 Office consultation new/estab patient 60 min Hector Mancera MD Work Phone: [facility] Comment on above: Hypertension affecti ng in first trimester (Primary Dx); Attention deficit hyperactivity disorder (ADHD), predominantly inattentive type; Generalized anxiety disorder; Encounter for follow-up ultrasound of anatomy Start: 10-16-2023 End: 10-16-2023 ambulatory [facility] Start: 09-16-2023 End: 09-16-2023 Chart abstracting Hector Mancera MD Work Phone: Maternal- Medicine at [facility] Start: 08-08-2023 End: 08-08-2023 ambulatory GUILLAUME R PEDRO Facility:[facility] Start: 06-04-2023 End: 06-04-2023 ambulatory ASIF SCHAEFER [facility] Start: 06-02-2023 End: 06-02-2023 Phys/qhp telephone evaluation 5-10 min Guillaume Pedro DO Work Phone: [facility] Comment on above: Irregular menses (Pr imary Dx) Start: 05-28-2023 Chart abstracting Guillaume Velasquezo DO Work Phone: [facility] Start: 05-02-2023 End: 05-02-2023 ambulatory ASIF SCHAEFER [facility] Start: 05-02-2023 End: 05-02-2023 Office outpatient visit 25 minutes Asif Schaefer SENIOR SUPPLY CHAIN ANALYST-DRUM CARRIER Work Phone: [facility] Comment on above: Attention deficit hy peractivity disorder (ADHD), predominantly inattentive type (Primary Dx); Moderate episode of recurrent major depressive disorder (CMS-HCC); Generalized anxiety disorder Start: 02-25-2023 End: 02-25-2023 Office outpatient visit 25 minutes Link Mckinney MD Work Phone: Orthopaedics Comment on above: Lytic bone lesion of femur (Primary Dx); Greater trochanteric bursitis of right hip; Chronic pain of right hip; Chronic low back pain, unspecified back pain laterality, unspecified whether sciatica present; Pain of right hip; Bone lesion Start: 02-20-2023 End: 02-20-2023 Subsequent hospital visit [...] 07-10-2022 End: 07-10-2022 ambulatory Imad Asaad Other [employer] Other Start: 07-10-2022 Office outpatient ne w 45 minutes Imad Asaad [facility] Start: 05-26-2022 End: 05-27-2022 ambulatory Roxanne MOSLEY Facility:[facility] Start: 05-26-2022 End: 05-26-2022 Patient encounter procedure Roxanne MOSLEY [facility] Start: 05-08-2022 End: 05-08-2022 ambulatory PRAVIN HAGER Facility: Start: 02-26-2022 End: 02-26-2022 Patient encounter procedure Link Mckinney MD Work Phone: Orthopaedics Comment on above: Lytic bone lesion of femur (Primary Dx) Start: 02-23-2022 End: 02-23-2022 Emergency department patient visit Chayo Anne Facility:[facility] Start: 02-23-2022 End: 02-23-2022 Emergency department patient visit Chayo Anne [facility] Start: 02-18-2022 End: 02-18-2022 Subsequent hospital [...] Dx) Start: 11-08-2021 Manual pelvic examination Natanael iMxon MD Work Phone: Hematology/Oncology Comment on above: Pelvic pain (Primary Dx) Dysuria (Primary Dx) Start: 11-08-2021 End: 11-08-2021 Nursing evaluation of patient and report Ma Nurse Yamil Poppy Work Phone: Hematology/Oncology Comment on above: Dysuria (Primary Dx) Start: 10-04-2021 Orders Only Macy Jones SENIOR SUPPLY CHAIN ANALYST.DRUM CARRIER Work Phone: Hematology/Oncology Comment on above: Acute bilateral low back pain with bilateral sciatica (Primary Dx) Procedures Date Procedure Procedure Detail Performing Clinician Start: 10-26-2024 IGP,APTIMA HPV,AGE GDLN [employer] Work Phone: Start: 10-26-2024 Microscopic observat ion [Identifier] in Cervix by Cyto stain [employer] Work Phone: Start: 10-26-2024 Cytp cerv/vag auto t hin layer prep mnl screen HEMINGWAY DO Work Phone: Start: 02-24-2024 ALL CBC WITH AUTO DIFF HEMINGWAY DO Work Phone: Start: 02-23-2024 HMHP CBC WITH PLATEL ET NO DIFFERENTIAL HEMINGWAY DO Work Phone: Start: 02-10-2024 Urnls dip stick/tabl et rgnt non-auto w/o micrscp Guillaume Pedro DO Work Phone: Start: 01-27-2024 Urnls dip stick/tabl et rgnt non-auto w/o micrscp Franny COSTELLO Work Phone: Start: 01-13-2024 Urnls dip stick/tabl et rgnt non-auto w/o micrscp Guillaume Pedro DO Work Phone: Start: 12-30-2023 Urnls dip stick/tabl et rgnt non-auto w/o micrscp Guillaume Pedro DO Work Phone: Start: 12-16-2023 Urnls dip stick/tabl et rgnt non-auto w/o micrscp Guillaume Pedro DO Work Phone: Start: 10-21-2023 Microscopic observat ion [Identifier] in Cervix by Cyto stain Guillaume Pedro DO Work Phone: Start: 08-08-2023 End: 08-08-2023 Antibody screen Hector Mancera MD Work Phone: Comment on above: Order Comment: Speci men Type: BLOOD SPECIMEN Ordering Facility: External Submitter Address: , , Performed By: #### [id number] #### [facility] CLIA [id number] [address] [place] [id number] Start: 08-08-2023 Blood count complete automated Not In System Ref Prov Start: 08-08-2023 Hepatitis c antibody No t In System Ref Prov Start: 08-08-2023 HIV 1&2 AB/AG SCREEN (P24 AG) Not In System Ref Prov Start: 08-08-2023 Iaad ia hepatitis b surface antigen Not In System Ref Prov Start: 08-08-2023 TYPE AND SCREEN Not In System Ref Prov Start: 07-24-2023 Drug scrn 1+ class nonchromo Not In System Ref Prov Start: 02-25-2023 Arthrocentesis aspir &/inj major jt/bursa w/o Codi Cronin PA-C Work Phone: Start: 02-20-2023 Radex hip unilateral with pelvis 2-3 views Roni Magaña MD Work Phone: Start: 08-08-2022 Adult depression scr eening assessment Asif Schaefer LAKISHA-DRUM CARRIER Work Phone: Start: 08-01-2022 Radex hip unilateral with pelvis 2-3 views Jerome Bennie Work Phone: Start: 02-18-2022 Radex hip unilateral with pelvis 2-3 views Roni Magaña MD Work Phone: Start: 11-08-2021 Urnls dip stick/tabl et rgnt auto w/o microscopy Natanael Mixon MD Work Phone: Start: 09-01-2015 Dilation and curetta ge of uterus Chayo Anne Start: 04-21-1995 Myringotomy with ins ertion of tube Chayo Dayana Plan of Treatment Date Care Activity Detail Author Start: 01-04-2030 DTaP,Tdap and Td Vac cines (4 - Td or Tdap) DTaP,Tdap and Td Vaccines (4 - Td or Tdap) [facility] Start: 01-04-2030 Urine microalbumin profile DTa P,Tdap,Td Vaccine (4 - Td or Tdap) [facility] Start: 10-20-2028 Screening for malign ant neoplasm of cervix [facility] Start: 10-27-2027 Screening for malign ant neoplasm of cervix Pap Smear [facility] Start: 10-20-2026 Screening for malign ant neoplasm of cervix Pap Smear [facility] Start: 11-01-2025 End: 11-01-2025 Patient encounter procedure [facility] Start: 01-11-2025 End: 01-11-2025 Patient encounter procedure 01/11/2025 10:20 AM EDT Office Visit [facility] [address] [place] [address] Guillaume Vasquez DO [address] [place], [place] [id number] [facility] Start: 12-20-2024 Influenza vaccination Influenza Vacc ine (#1) [facility] Start: 11-12-2024 Adult BMI Screening Adult BMI Screen ing [facility] Start: 11-12-2024 Tobacco Screening Tobacco Screening [facility] Start: 10-26-2024 End: 10-26-2024 Patient encounter procedure [facility] Comment on above: Arrived Start: 10-15-2024 Adult BMI Screening Adult BMI Screen ing [facility] Start: 10-15-2024 Tobacco Screening Tobacco Screening [facility] Start: 06-04-2024 Tobacco Screening Tobacco Screening [facility] Start: 04-06-2024 End: 04-06-2024 ambulatory 04/06/2024 9:30 AM EST Visit [facility] [address] [place] [phone] Franny Hager, PA [address] [place] [address] [facility] Start: 03-10-2024 Tobacco Screening Tobacco Screening [facility] Start: 02-23-2024 Screening for malign ant neoplasm of cervix [facility] Start: 02-18-2024 End: 02-18-2024 Patient encounter procedure 02/18/2024 9:40 AM EDT Routine [facility] [address] [place] [phone] Franny Hager, PA [address] [place] [address] [facility] Start: 02-10-2024 End: 02-09-2025 Strep B DNA probe, amplification Strep B DNA probe, amplification Lab Routine Third trimester Expected: 02/10/2024 (Approximate), Expires: 02/09/2025 [facility] Work Phone: Comment on above: Expected: 02/10/2024 (Approximate), Expires: 02/09/2025 Start: 02-10-2024 End: 02-10-2024 Patient encounter procedure 02/10/2024 1:00 PM EDT Routine [facility] [address] [place] [phone] Guillaume Vasquez, DO [address] [place] [address] [facility] Start: 01-27-2024 End: 01-27-2024 Patient encounter procedure 01/27/2024 9:50 AM EDT Routine [facility] [address] [place] [phone] Franny Hager PA [address] [place] [address] [facility] Start: 01-13-2024 End: 01-13-2024 Patient encounter procedure 01/13/2024 9:20 AM EDT Routine [facility] [address] [place] [phone] Guillaume Vasquez, DO [address] [place] [address] [facility] Start: 01-08-2024 End: 01-08-2024 Telemedicine consultation with patient 01/08/2024 8:30 AM EDT Telemedicine Maternal- [facility] at [facility] [address] [facility] [place] [address] Catrina Hernandez MD [address] [facility] 1st [place] [address] [facility] at [facility] Start: 01-01-2024 End: 01-01-2024 Patient encounter procedure 01/01/2024 10:20 AM EDT Routine [facility] [address] [place] [phone] Guillaume aVsquez, DO [address] [place] [address] [facility] Start: 12-30-2023 End: 12-30-2023 Patient encounter procedure 12/30/2023 9:20 AM EDT Routine [facility] [address] [place] [phone] Guillaume Vasquez, DO [address] [place] [address] Arrived [facility] Comment on above: [facility] Start: 12-21-2023 Covid-19 Vaccine ( season) Covid-19 Vaccine ( season) [facility] Start: 12-21-2023 Covid-19 Vaccine ( season) Covid-19 Vaccine ( season) [facility] Start: 12-21-2023 Influenza vaccination [facility] Start: 12-16-2023 End: 12-15-2024 US for US OB SCAN FOR GROWTH Imaging Routine Thyroid disease ([facility]/HCC) Expected: 12/16/2023 (Approximate), Expires: 12/15/2024 [facility] Work Phone: Comment on above: Expected: 12/16/2023 (Approximate), Expires: 12/15/2024 Start: 11-13-2023 End: 11-13-2023 Telemedicine consultation with patient 11/13/2023 11:30 AM EDT Telemedicine [facility] [address] [phone] Catrina Hernandez MD [address] [place] [address] [facility] Start: 11-13-2023 End: 11-13-2023 Patient encounter procedure 11/13/2023 11:00 AM EDT Appointment [facility] [address] [address] [facility] Start: 10-16-2023 End: 10-15-2024 US MFM with or without consult US MFM with or without consult Imaging Routine Hypertension affecting in first trimester Attention deficit hyperactivity disorder (ADHD), predominantly inattentive type Generalized anxiety disorder Encounter for follow-up ultrasound of anatomy Expected: 10/16/2023, Expires: 10/15/2024 [facility] Work Phone: Comment on above: Expected: 10/16/2023 , Expires: 10/15/2024 Start: 10-16-2023 End: 10-16-2023 Telemedicine consultation with patient 10/16/2023 11:00 AM EDT Telemedicine [facility] [address] [phone] Hector Mancera MD [address] [facility] [address] [place], [place] [id number] [facility] Start: 10-16-2023 End: 10-16-2023 Patient encounter procedure 10/16/2023 9:30 AM EDT Appointment [facility] [address] [phone] [facility] Start: 08-09-2023 Adult BMI Screening Adult BMI Screen ing [facility] Start: 08-09-2023 Depression Screening Depression Scre ening [facility] Start: 05-29-2023 End: 05-29-2023 Patient encounter procedure 05/29/2023 8:10 AM EST Office Visit [facility] [address] [place] [address] Guillaume Vasquez DO [address] [place] [address] Irregular menses [facility] Comment on above: Irregular menses Start: 12-20-2022 Covid-19 Vaccine () Covid-19 Vaccine ( season) [facility] Start: 12-20-2022 Influenza vaccination INFLUENZA (#1) [facility] Start: 11-15-2022 End: 01-15-2023 Comprehensive metabolic 2000 [...] Start: 04-21-2022 DEPRESSION ASSESSMENT DEPRESSION ASS ESSMENT [facility] Start: 12-20-2021 Influenza vaccination INFLUENZA (#1) [facility] Start: 12-06-2021 End: 02-05-2022 Thyrotropin [Units/volume] in [...] Start: 04-21-2021 DEPRESSION ASSESSMENT DEPRESSION ASS ESSMENT [facility] Start: 2021 HPV TESTING HPV TESTING [facility] Start: 10-13-2020 COVID-19 VACCINE (3 - Booster for Moderna series) COVID-19 VACCINE (3 - Booster for Moderna series) [facility] Start: 07-10-2020 COVID-19 VACCINE (3 - Booster for Moderna series) COVID-19 VACCINE (3 - Booster for Moderna series) [facility] Start: 07-10-2020 COVID-19 VACCINE (3 - Moderna series) COVID-19 VACCINE (3 - Moderna series) [facility] Start: 02-08-2012 PAP TESTING PAP TESTING [facility] Start: 02-08-2012 Screening for malign ant neoplasm of cervix [facility] Start: 2010 Urine microalbumin profile DTA P,TDAP,TD (1 - Tdap) [facility] Start: 2009 Adult BMI Follow Up Plan Adult BMI Follow Up Plan [employer] Start: 2009 Anxiety Screening Anxiety Screening [facility] Start: 2009 Depression Screening Depression Scre ening [facility] Start: 2009 HEPATITIS C SCREENING HEPATITIS C SC REENING [facility] Start: 2009 HIV SCREENING HIV SCREENING [facility] Start: 2003 Adult depression scr eening assessment DEPRESSION SCREENING [facility] Start: 1997 Pneumococcal vaccination [facility] Start: 1991 HEPATITIS B (1 of 3 - 3-dose series) HEPATITIS B (1 of 3 - 3-dose series) [facility] Bacteria identified in Urine by Culture URINE CULTURE Microbiology Routine Pelvic pain 11/08/2021 11:36 AM EDT [facility] Work Phone: Cytology Cervical or vaginal smear or scraping study Pap Smear Pathology and Cytology Routine Well woman exam with routine gynecological exam Ordered: 10/26/2024 [employer] Work Phone: Comment on above: Ordered: 10/26/2024 End: 06-02-2023 Drug Screen, Urine Drug Screen, Urine Lab Routine Attention deficit hyperactivity disorder (ADHD), predominantly inattentive type 1 Occurrences starting 05/02/2023 until 06/02/2023 [employer] Work Phone: Comment on above: 1 Occurrences starti ng 05/02/2023 until 06/02/2023 Human papilloma viru s DNA [Presence] in Unspecified specimen by Probe with amplification HPV DNA probe, amplified Microbiology Routine Well woman exam with routine gynecological exam Ordered: 10/26/2024 [facility] Comment on above: Ordered: 10/26/2024 End: 03-26-2024 MRI HIP WO IVCON RIGHT MRI HIP WO IVCON RIGHT Radiology Routine Greater trochanteric bursitis of right hip Chronic pain of right hip Pain of right hip Bone lesion 1 Occurrences starting 02/25/2023 until 03/26/2024 [facility] Work Phone: Comment on above: 1 Occurrences starti ng 02/25/2023 until 03/26/2024 Thyrotropin [Units/v olume] in Serum or Plasma TSH Lab Routine Thyroid disease (CMS/HCC) Ordered: 04/06/2024 [facility] [employer] Work Phone: Comment on above: Ordered: 04/06/2024 End: 03-18-2024 XR HIP GENERAL 3V PELV/AP/LAT RIGHT XR HIP GENERAL 3V PELV/AP/LAT RIGHT Radiology Routine Lytic bone lesion of femur 1 Occurrences starting 02/17/2023 until 03/18/2024 [facility] Work Phone: Comment on above: 1 Occurrences starti ng 02/17/2023 until 03/18/[facility] Immunization Date Immunization Notes Care Provider [facility] 02-19-2024 influenza virus vaccine, unspecified formulation Guillaume Vasquez DO Work Phone: [facility] [employer] 01-28-2023 influenza virus vaccine, unspecified formulation Roni Magaña MD Work Phone: [facility] 02-14-2022 influenza virus vaccine, unspecified formulation Link Mckinney MD Work Phone: [facility] 01-18-2021 influenza virus vaccine, unspecified formulation Macy Jones APRN.CNP Work Phone: [facility] 03-01-2020 influenza, seasonal, injectable Imad Asaad Other [employer] Other 02-03-2016 influenza, injectable, quadrivalent, contains preservative Imad Asaad Other [employer] Other NEGATED: Highlighted row has not occurred!03-02-2019 influenza, seasonal, injectable Imad Asaad Other [employer] Other Payers Date Payer Category Payer Private Health Insurance [employer] [id number] 2018 Unknown [id number] 1991 Unknown [id number] 2.16.840.1.303922.3.579.2. 593 1991 Unknown [id number] 2.16.840.1.724321.3.579.2. 593 1991 Unknown [id number] 2.16.840.1.980344.3.579.2. 593 1991 Unknown [id number] 2.16.840.1.503440.3.579.2. 727 1991 Unknown [id number] 2.16.840.1.713545.3.579.2. 727 1991 Unknown [id number] 2.16.840.1.728358.3.579.2. 1286 1991 Unknown [id number] 2.16.840.1.496295.3.579.2. 1286 1991 Unknown [id number] 2.16.840.1.376549.3.579.2. 1286 1991 Unknown [id number] 2.16.840.1.932400.3.579.2. 1286 1991 Unknown [id number] 2.16.840.1.069465.3.579.2. 1259 1991 Unknown [id number] 2.16.840.1.879866.3.579.2. 1259 1991 Unknown [id number] 2.16.840.1.132598.3.579.2. 1259 1991 Unknown [id number] 2.16.840.1.073149.3.579.2. 9 1991 Unknown [id number] 2.16.840.1.733099.3.579.2. 1259 1991 Unknown [id number] 2.16.840.1.347550.3.579.2. 9 1991 Unknown [id number] 2.16.840.1.874156.3.579.2. 1259 1991 Unknown [id number] 2.16.840.1.413448.3.579.2. 9 1991 Unknown [id number] 2.16.840.1.353642.3.579.2. 9 1991 Unknown [id number] 2.16.840.1.724754.3.579.2. 1259 1959 Unknown [id number] Social History Date Type Detail Facility [facility] Work Phone: Start: 1991 Sex Assigned At Not on file [facility] Start: 10-29-2021 End: 02-26-2022 Exposure to SARS-CoV-2 (event) Not sure [facility] Start: 03-21-2013 End: 10-21-2023 Tobacco smoking status Ex-smoker (finding) [facility] Comment on above: quit 01/2013 Start: 02-26-2022 End: 12-30-2023 Sex Assigned At Female [facility] History of tobacco use Current smoker [facility] History of tobacco use Cigarette Smoker [facility] History of tobacco use Passive smoker [facility] Start: 02-11-2022 End: 10-21-2023 Tobacco use and exposure Smokeless tobacco non-user [facility] Start: 02-26-2022 End: 09-16-2023 Alcohol intake Current drinker of alcohol (finding) [facility] Tobacco smoking status Never [facility] Start: 02-26-2022 End: 12-30-2023 History of Social function [facility] Start: 02-25-2023 End: 05-28-2023 Tobacco smoking status NHIS Occasional tobacco smoker [facility] Start: 05-28-2023 Alcohol Comment caffeine: 2-3 cups per day coffee; soda [facility] Start: 01-13-2024 End: 11-30-2024 Alcoholic beverage intake Ex-drinker (finding) [facility] Start: 06-08-2023 [facility] Start: 08-08-2022 Alcohol Comment on the weekends [facility] Functional Status Date Assessment Result Facility 05-26-2022 Functional Status N/A [facility] 02-23-2022 Functional Status N/A [facility] Clinical Notes 08-20-2015 to 11-30-2024 Wilda Francis LPN - 11/30/2024 2:40 PM Domingo Francis LPN - 10/26/2024 9:00 AM PRAVIN Kemp - 04/06/2024 9:30 AM PRAVIN Jacques - 02/18/2024 9:40 AM Domingo Francis LPN - 02/10/2024 1:00 PM EDT Note Date & Type Note Facility 11-30-2024 History of Presen t illness Narrative Reason for Appointment: Patient ID: Jessee Almodovar is a 34 y.o. female who presents for Abnormal Pap Smear Patient presents today for Follow up appointment to discuss results. and Pre Op appointment. Patient is scheduled to undergo LEEP on 12/31/[address] Vasquez at [facility]. MEDICATIONS Current Outpatient Medications Medication Instructions Adderall 5 MG tablet 10 mg, Oral, As needed amphetamine-dextroamphetamine XR (Adderall XR) 10 MG 24 hr capsule 20 mg, Oral, Every morning labetalol (NORMODYNE) 100 mg, Oral, 2 times daily levothyroxine (SYNTHROID, LEVOXYL) 200 mcg, Oral, Daily RT omeprazole (PRILOSEC) 40 mg, Oral, Daily MV-Min-Fe Fum-FA-DHA ( 1 PO) Take by mouth. venlafaxine XR (EFFEXOR XR) 150 mg, Daily [...] Constitutional: Appearance: Normal appearance. She is well-developed. Cardiovascular: Rate and Rhythm: Normal rate and [...] nursing note reviewed. Exam conducted with a jet mechanic present. Vitals: Estimated body mass index is 24.68 kg/m as calculated from the following: Height as of 10/26/24: 6'. Weight as of this encounter: 182 lb. BP: 138/84 Patient's last menstrual period was 11/28/2024. ASSESSMENT & PLAN ICD-10-CM 1. Low grade squamous intraepithelial lesion on cytologic smear of cervix (LGSIL) R87.612 2. Pap smear with atypical squamous cells, cannot exclude high grade squamous intraepithelial lesion (ASC-H) R87.610 Pt presents to discuss pap results, LGSIL, ASC-H. Discussed in great detail. Pt to be scheduled for LEEP. Pre Op: I have discussed conservative management vs. surgical management with the patient in detail and patient desires surgical management at this time. Patient will undergo LEEP on 12/31/24. Surgical consents were signed, mmc was reviewed, and patient is to proceed to [facility] OR. Follow Up: Patient is to follow up between 1-2 weeks post operative to assess proper healing and recovery from procedure. Documented by Wilda Francis LPN on behalf of: Guillaume Vasquez DO documented in this encounter [facility] 10-26-2024 History of Presen t illness Narrative Reason for Appointment: Patient ID: [...] nursing note reviewed. Exam conducted with a jet mechanic present. Vitals: Estimated body mass index is 24.47 kg/m as calculated from the following: Height [...] them. Patient can also view results via [employer]. I reinforced importance of condom use for [...] Guillaume Vasquez DO documented in this encounter [facility] 04-06-2024 History of Presen t illness Narrative Reason for Appointment: Patient ID: Jessee Almodovar is a 34 y.o. female who presents for Follow-up Patient presents today for Post Follow Up appointment. MEDICATIONS Current Outpatient Medications Medication Instructions labetalol (NORMODYNE) 100 mg, Oral, 2 times daily levothyroxine (SYNTHROID, LEVOXYL) 200 mcg, Oral, Daily RT omeprazole (PRILOSEC) 40 mg, Daily before breakfast MV-Min-Fe Fum-FA-DHA ( 1 PO) Take by mouth. venlafaxine XR (EFFEXOR XR) 37.5 mg, Oral, Daily, Do not crush or chew. venlafaxine XR (EFFEXOR XR) 150 mg, Oral, Daily, Do not crush or chew. ALLERGIES No Known Allergies PROBLEMS Active Ambulatory [...] Constitutional: Appearance: Normal appearance. She is well-developed. HENT: Head: Normocephalic. Nose: Nose normal. Mouth/Throat: Mouth: Mucous membranes are moist. Cardiovascular: Rate and Rhythm: Normal rate and regular rhythm. Pulmonary: Effort: Pulmonary effort is normal. Breath sounds: Normal breath sounds. Abdominal: General: Bowel sounds are normal. There is no distension. Palpations: Abdomen is soft. Tenderness: There is no abdominal tenderness. There is no guarding or rebound. Musculoskeletal: General: No swelling. Normal range of motion. Cervical back: Normal range of motion. Right lower leg: No edema. Left lower leg: No edema. Neurological: General: No focal deficit present. Mental Status: She is alert and oriented to person, place, and time. Skin: General: Skin is warm and dry. Psychiatric: Mood and Affect: Mood normal. Behavior: Behavior normal. Vitals and nursing note reviewed. Exam conducted with a jet mechanic present. Vitals: Estimated body mass index is 26.46 kg/m as calculated from the following: Height as of 05/07/22: 6' 0.5 . Weight as of this encounter: 197 lb 12.8 oz. BP: 120/80 Patient's last menstrual period was 05/25/2023. ASSESSMENT & PLAN ICD-10-CM 1. 6 weeks follow-up Z39.2 2. Anxiety and depression (CMS/HCC) F41.9 venlafaxine XR (Effexor XR) 75 MG 24 hr capsule F32.A 3. Thyroid disease (CMS/HCC) E07.9 TSH Post Follow Up: Patient is doing well but has complaints of Anxiety and depression. Patient presents today for 6 week visit. Patient is s/p Vaginal delivery. Patient states depression but denies suicidal and homicidal ideations. All options were discussed with the patient regarding control and patient desires none at this time. Patient had TSH levels ordered and her Effexor was increased at this time. Follow Up: Patient is to return for annual unless needed otherwise. Documented by Lisa Montes LPN on behalf of: PRAVIN Dumont documented in this encounter [facility] 02-18-2024 History of Presen t illness Narrative Reason for Appointment: Patient ID: [...] of: PRAVIN Dumont documented in this encounter [facility] 02-10-2024 History of Presen t illness Narrative Reason for Appointment: Patient ID: [...] nursing note reviewed. Exam conducted with a jet mechanic present. Vitals: Estimated body mass index is [...] Guillaume Vasquez DO documented in this encounter [facility] 01-27-2024 History of Presen t illness Narrative Reason for Appointment: Patient ID: [...] nursing note reviewed. Exam conducted with a jet mechanic present. Vitals: Estimated body mass index is [...] of: PRAVIN Dumont documented in this encounter [facility] 01-13-2024 History of Presen t illness Narrative Reason for Appointment: Patient ID: [...] Constitutional: Appearance: Normal appearance. She is well-developed. Cardiovascular: Rate and Rhythm: Normal rate and [...] nursing note reviewed. Exam conducted with a jet mechanic present. Vitals: Estimated body mass index is 28.87 kg/m as calculated from the following: Height as of 05/07/22: 6' 0.5 . Weight as of this encounter: 215 lb 12.8 oz. BP: 110/64 Patient's last menstrual period was 05/25/2023. ASSESSMENT & PLAN ICD-10-CM 1. 31 weeks gestation of Z3A.31 POCT urinalysis dipstick manually resulted Return OB: Patient presents today for a routine obstetrics appointment. Patient is currently 31w5d . Patient states she is doing well but has complaints of being tired due to current . Pt is in pain, ribs hurt just uncomfortable. Patient has verbalizes frequent movement. labor precautions was discussed/given and patient was instructed to perform kick counts three times a day. Orders Placed This Encounter Procedures POCT urinalysis dipstick manually resulted Follow Up: Patient is to return to office in 2 week for routine OB appointment. Documented by Wilda Francis LPN on behalf of: Guillaume Vasquez DO documented in this encounter [facility] 12-30-2023 History of Presen t illness Narrative Reason for Appointment: Patient ID: Jessee Almodovar is a 33 y.o. female who presents for Routine Visit Patient presents today for Return OB appointment. MEDICATIONS Current Outpatient Medications Medication Instructions labetalol (NORMODYNE) 100 mg, Oral, 2 times [...] Constitutional: Appearance: Normal appearance. She is well-developed. Cardiovascular: Rate and Rhythm: Normal rate and [...] nursing note reviewed. Exam conducted with a jet mechanic present. Vitals: Estimated body mass index is 27.96 kg/m as calculated from the following: Height as of 05/07/22: 6' 0.5 . Weight as of this encounter: 209 lb. BP: 120/72 Patient's last menstrual period was 05/25/2023. ASSESSMENT & PLAN ICD-10-CM 1. Third trimester Z34.93 POCT urinalysis dipstick manually resulted 2. Thyroid disease ([facility]) E07.9 3. Excessive growth affecting management of in third trimester, single or unspecified fetus O36.63X0 4. Pre-existing hypertension during , antepartum, unspecified pre-existing hypertension type O10.919 Return OB: Patient presents today for a routine obstetrics appointment. Patient is currently 29w5d . Patient states she is doing well but has complaints of being tired due to current . Patient has verbalizes frequent movement. labor precautions was discussed/given and patient was instructed to perform kick counts three times a day. Pt to be induced 02/23/24. Pt considering section d/t fracture. PT given NST/BPP orders to have scheduled. Orders Placed This Encounter Procedures POCT urinalysis dipstick manually resulted Follow Up: Patient is to return to office in 2 week for routine OB appointment. Documented by Wilda Francis LPN on behalf of: Guillaume Vasquez DO documented in this encounter [facility] 12-16-2023 History of Presen t illness Narrative Reason for Appointment: Patient ID: Jessee Almodovar is a 33 y.o. female who presents for Routine Visit Patient presents today for Return OB appointment. MEDICATIONS Current Outpatient Medications Medication Instructions amphetamine-dextroamphetamine XR (Adderall XR) 30 MG 24 hr capsule Take 1 capsule (30 mg total) by mouth in the morning for 15 days. Max Daily Amount: 30 mg. doxycycline (Vibramycin) 100 MG capsule Take 1 capsule (100 mg) by mouth in the morning and 1 capsule (100 mg) before bedtime. Do all this for 7 days. Take with at least 8 ounces (large glass) of water, do not lie down for 30 minutes after. Jornay PM 20 MG 24 hour capsule Take 1 capsule (20 mg) by mouth nightly for 15 days. Max Daily Amount 20 mg labetalol (NORMODYNE) 100 mg, Oral, 2 times daily levothyroxine (SYNTHROID) 25 mcg, Oral, Daily before breakfast levothyroxine (SYNTHROID, LEVOXYL) 200 mcg, Oral, Daily RT lisdexamfetamine (VYVANSE) 30 mg, Oral, Every morning lisinopril 40 MG tablet omeprazole (PRILOSEC) 40 mg, Oral, Daily before [...] Constitutional: Appearance: Normal appearance. She is well-developed. Cardiovascular: Rate and Rhythm: Normal rate and [...] nursing note reviewed. Exam conducted with a jet mechanic present. Vitals: Estimated body mass index is 27.69 kg/m as calculated from the following: Height as of 05/07/22: 6' 0.5 . Weight as of this encounter: 207 lb. BP: 118/74 Patient's last menstrual period was 05/25/2023. ASSESSMENT & PLAN ICD-10-CM 1. Second trimester Z34.92 POCT urinalysis dipstick manually resulted 2. Thyroid disease (CMS/HCC) E07.9 US OB SCAN FOR GROWTH Return OB: Patient presents today for a routine obstetrics appointment. Patient is currently 27w5d . Patient states she is doing well but has complaints of being tired due to current . Pt given growth ultrasound to have obtained starting at 28 weeks- every 4 weeks until delivery. Patient has verbalizes frequent movement. labor precautions was discussed/given and patient was instructed to perform kick counts three times a day. Orders Placed This Encounter Procedures US OB SCAN FOR GROWTH POCT urinalysis dipstick manually resulted Follow Up: Patient is to return to office in 2 week for routine OB appointment. Documented by Wilda Francis LPN on behalf of: Guillaume Vasquez DO documented in this encounter [facility] 11-13-2023 History of Presen t illness Narrative Headache/epigastric pain/blurry vision/swelling? No Cramping/contractions? No Abnormal vaginal discharge? No Spotting or vaginal bleeding? No Loss or gush of fluid like your water may have broken? No Recent ER visits or hospitalizations? No Any concerns that you would like me to mention to the provider today? No REASON FOR TELEMEDICINE VIDEO CONSULTATION: Multiple medical problems. HISTORY OF PRESENT ILLNESS: Jessee Almodovar is a pleasant 33 y.o. G 2p 1001. at 24w4d due on Estimated Date of Delivery: 02/29/24 . Patient was seen today due to the following 1. Hypertension currently on Labetalol with good blood pressure control. 2. Maternal hypothyroidism. Prepregnany dose 200mcg. Most recent TSH elevated at 4.5 on 10/22/2023. Was increased to 225 mcg daily a week ago from baseline of 200 mcg. Patient is compliant with Lovenox and takes it as prescribed 1st thing in the morning without any additional medication for an hour. 3. Maternal generalized anxiety disorder. Mood is stable. 4. Maternal GERD currently on omeprazole. 5. LGA profile. Has not yet had gestational diabetes testing Currently the patient has no complaints. The patient denies nausea, vomiting, abdominal pain, vaginal bleeding, SOB or chest pain. OB History Para Term AB Living 2 1 1 1 SAB IAB Ectopic Multiple Live Births 1 # Outcome Date GA Lbr Oliver/2nd Weight Sex Type Anes PTL Lv 2 Current 1 Term 01/03/20 37w0d F Vag-Spont EPI TRACI ALLERGIES: No Known Allergies CURRENT MEDICATIONS: Current Outpatient Medications: biotin 5 mg tablet, Take by mouth. (Patient not taking: Reported on 10/16/2023), Disp: , Rfl: labetaloL (NORMODYNE) 100 mg tablet, Take 1 tablet (100 mg total) by mouth in the morning and 1 tablet (100 mg total) before bedtime., Disp: , Rfl: levothyroxine (SYNTHROID, LEVOTHROID) 175 MCG tablet, Take 1 tablet (175 mcg total) by mouth in the morning., Disp: , Rfl: levothyroxine (SYNTHROID, LEVOTHROID) 200 MCG tablet, Take 1 tablet (200 mcg total) by mouth in the morning., Disp: , Rfl: omeprazole (PriLOSEC) 40 mg capsule, Take 1 capsule (40 mg total) by mouth in the morning., Disp: , Rfl: 25/iron fum/folic/dha (-1 ORAL), Take 1 tablet by mouth daily., Disp: , Rfl: traZODone (DESYREL) 100 mg tablet, Take 1 tablet (100 mg total) by mouth nightly as needed for sleep. (Patient not taking: Reported on 10/16/2023), Disp: 30 tablet, Rfl: 6 I did review all the labs results available in addition to labs which were ordered by the primary care physician, and the other consultants, we search on epic and all the available care everywhere epic I did review all the imaging studies of the patient available on EMR, ordered by the primary care physician and the other health consultant PHYSICAL EXAMINATION: BP 122/76 Ht 185.4 cm (6' 0.99 ) Wt 90.4 kg (199 lb 6.4 oz) LMP 05/25/2023 BMI 26.31 kg/m . Gravid abdomen, Respirations not labored. Well oriented time place person, normal gait MEDICAL DECISION MAKING DISCUSSION: RECOMMENDATION: Complete level 2 anatomy ultrasound without any evidence of structural abnormalities Continue low-dose baby aspirin for attempted preeclampsia prevention Levothyroxine dose increased today: 250 mcg Friday, Friday, Friday and 225 mcg for the remainder of the week. Recommend checking TSH every 3 weeks after dosage change and every 4-6 weeks once stable, goal TSH <2.5 uptitrate antihypertensives, either with labetalol or nifedipine, to maintain blood pressure goal of less than 140/90 If she develops severe range BPs in this , I recommend she be admitted to the hospital for evaluation of suspected superimposed preeclampsia. Given LGA profile, recommend gestational diabetes screening Serial growth ultrasounds every 4 weeks starting at 28 weeks weeks' gestation, through primary OB Initiate testing form once a week NST and NICHOLAS at 32 weeks gestation at her OB office Increase testing to twice weekly NST and weekly NICHOLAS 36 weeks gestation at her OB office Delivery at 38 weeks gestation based on maternal essential hypertension on medication criteria at her local hospital. Vaginal delivery is to be anticipated with C section reserve for routine obstetrical indications. restart levothyroxine at pre dose, 200 mcg daily Follow up scheduled in MFM in 8 weeks with MFM physician, please refer back earlier if patient develops gestational diabetes DISPOSITION: At this point the patient is in complete care of her automotive manager. Patient does have 1 more ultrasound office visit scheduled with us Thank you for allowing me to participate in Jessee Almodovar . If there any questions please do not hesitate to contact us. Sincerely, Catrina Hernandez MD Maternal- Medicine [facility] [address] [facility] [address] [place] [address] Video Visit via Real-time Synchronous Audiovisual Provider Location: [facility] AT [address] [address] Patient Location: [facility] Patient Location Blackjack Dealer: None Video Visit Consent Statement: I discussed risks, [...] that there are some limitations compared to [id number] evaluations. We elected to proceed. documented in this encounter [facility] 10-16-2023 History of Presen t illness Narrative Headache/epigastric pain/blurry vision/swelling? denies Cramping/contractions? denies Abnormal vaginal discharge? denies Spotting/vaginal bleeding? denies Loss of fluid like your water may have broken? denies Cats in the home? yes Do you change the litter box? no Flu vaccine? no Genetic testing done this here or other office? none Have you been seen here at [facility] in a previous ? Yes with last Recent ER visits or hospitalizations? denies Bring blood sugar log or meter with you today? (Please bring them with you for every visit at [facility]) na Traveled outside the country in the past 6 month denies Any concerns that you would like me to mention to the provider today? Not at this time REASON FOR TELEMEDICINE VIDEO CONSULTATION: Multiple medical problems. HISTORY OF PRESENT ILLNESS: Jessee Almodovar is a pleasant 33 y.o. G 2p 1001. at 20w4d due on Estimated Date of Delivery: 02/29/24 . Patient was seen today due to the following 1. Hypertension currently on Labetalol with good blood pressure control. 2. Maternal hypothyroidism currently on Synthroid 200 mcg p.o. daily. 3. Maternal generalized anxiety disorder. Mood is stable. 4. Maternal GERD currently on omeprazole. Currently the patient has no complaints. The patient denies nausea, vomiting, abdominal pain, vaginal bleeding, SOB or chest pain. Patient's PMH/PSH,SH,PSYCH Hx, MEDs, ALLERGIES, and ROS were all reviewed and updated in the appropriate sections. Patient Active Problem List Diagnosis Hypothyroidism affecting Moderate episode of recurrent major depressive disorder (CMS-HCC) Generalized anxiety disorder Attention deficit hyperactivity disorder (ADHD), predominantly inattentive type Hypertension affecting Past Medical History: Diagnosis Date Anxiety Depression Endometrial polyp Hypertension Thyroid disease Urinary tract infection PAST OBSTETRICAL HISTORY: OB History 2 Para 1 Term 1 AB Living 1 SAB IAB Ectopic Multiple Live Births 1 SURGICAL HISTORY: Past Surgical History: Procedure Laterality Date CERVICAL BIOPSY W/ LOOP ELECTRODE EXCISION COLPOSCOPY TYMPANOSTOMY TUBE PLACEMENT ALLERGIES: No Known Allergies CURRENT MEDICATIONS: Current Outpatient Medications: labetaloL (NORMODYNE) 100 mg tablet, Take 1 tablet (100 mg total) by mouth in the morning and 1 tablet (100 mg total) before bedtime., Disp: , Rfl: levothyroxine (SYNTHROID, LEVOTHROID) 200 MCG tablet, Take 1 tablet (200 mcg total) by mouth in the morning., Disp: , Rfl: omeprazole (PriLOSEC) 40 mg capsule, Take 1 capsule (40 mg total) by mouth in the morning., Disp: , Rfl: 25/iron fum/folic/dha (-1 ORAL), Take 1 tablet by mouth daily., Disp: , Rfl: biotin 5 mg tablet, Take by mouth. (Patient not taking: Reported on 10/16/2023), Disp: , Rfl: levothyroxine (SYNTHROID, LEVOTHROID) 175 MCG tablet, Take 1 tablet (175 mcg total) by mouth in the morning., Disp: , Rfl: lisinopriL (PRINIVIL,ZESTRIL) 10 mg tablet, Take 1 tablet (10 mg total) by mouth in the morning., Disp: , Rfl: traZODone (DESYREL) 100 mg tablet, Take 1 tablet (100 mg total) by mouth nightly as needed for sleep. (Patient not taking: Reported on 10/16/2023), Disp: 30 tablet, Rfl: 6 venlafaxine XR (EFFEXOR-XR) 150 mg 24 hr capsule, Take 1 capsule (150 mg total) by mouth in the morning., Disp: 30 capsule, Rfl: 6 FAMILY/GENETIC HISTORY: No family history of VTE, cardiac defects and mental retardation . SOCIAL HISTORY:Patient denies tobacco use, alcohol use, or drug use. RECENT HOSPITALIZATION: none I did review all the labs results available in addition to labs which were ordered by the primary care physician, and the other consultants, we search on [employer] and all the available care everywhere epic I did review all the imaging studies of the patient available on EMR, ordered by the primary care physician and the other health consultant HABITS: Patient activity no restrictions, diet no restrictions REVIEW OF SYSTEM: Head and Neck: Negative for any dizziness and headaches. Cardiovascular and Respiratory System: Denies any chest pain, shortness of breath, and coughing. Abdominal and System: Denies any abdominal pain, nausea, vomiting, vaginal bleeding, and vaginal discharge Social Determinants of Health Financial Resource Strain: n Food Insecurity: n Transportation Needs: n Physical Activity: y Social Connections: y Intimate Partner Violence: n Housing Stability: y PHYSICAL EXAMINATION: BP 116/70 Wt 87.1 kg (192 lb) LMP 05/25/2023 BMI 25.33 kg/m . Gravid abdomen, Respirations not labored. Well oriented time place person, normal gait MEDICAL DECISION MAKING DISCUSSION: I explained there is a 1% incidence of hypothyroidism in the general population. The thyroid is important for normal growth and maintenance of lipid and carbohydrate metabolism. We discussed the pathophysiology of thyroid regulation including stimulation of the thyroid from TSH from the anterior pituitary. In , the physiology changes somewhat due to increased amounts of hormones such as estrogen which blocks the degradation of thyroid binding globulin and human chorionic gonadotropin which stimulates thyroid hormone secretion and suppresses TSH. Throughout , there is a 30-50% increase in the requirement of throxine. In the fetus, the small amount of thyroxine that crosses the placenta provides thyroid hormone until 10-12 weeks. After this time, the fetus begins to synthesis thyroid hormone. We also discussed hypothyroidism often occurs due to Bernardo s thyroiditis. If this occurs, there can be antibodies circulating in the patient which cross the placenta and act on the fetus. The fetus can then develop a goiter. Although this is rare, but can be found if the maternal circulating antibodies are elevated. Some of the complications in associated with untreated or partially treated hypothyroidism are preeclampsia, abruption, and low weight. When the maternal free T4 is very low in , the is at risk for impaired psychomotor function and a significantly lower IQ. Therefore, recommendations are to maintain serum TSH 0.5-2.0 microIU/ml and Free T4 in the upper third of normal range. Measure TSH and Free T4 every 4 weeks and patient should go back to pre- dosing in the PP period. I informed the patient that unlike other hypertensive disorders essential hypertension needs to be treated with a goal of keeping the blood pressure at or below 140/90 and therefore labetalol can be titrated accordingly. Please obtain baseline 24 urine protein excretion of protein creatinine ratio along with a comprehensive metabolic profile through her OB office. Serial growth ultrasounds every 4 weeks after 24 weeks gestation and delivery at 38 weeks gestation at her local hospital. RECOMMENDATION: 1. Normal but limited targeted me seen on today's ultrasound. 2. Follow-up in 4 weeks for completion of targeted anatomy at [facility] office 3. Serial growth ultrasounds every 4 weeks after 24 weeks gestation at her OB office. 4. Initiate testing form once a week NST and NICHOLAS at 32 weeks gestation at her OB office 5. Increase testing to twice weekly NST and weekly NICHOLAS 36 weeks gestation at her OB office 6. Delivery at 38 weeks gestation based on maternal essential hypertension on medication criteria at her local hospital. 7. Vaginal delivery is to be anticipated with C section reserve for routine obstetrical indications. 8. Low-dose aspirin therapy 81 mg p.o. daily was resumed today. 9. Continue the function tests evaluation TSH and free T4 every 4-6 weeks through her OB office and titrate accordingly. 10. Please obtain baseline 24 urine protein excretion or protein creatinine ratio along with a comprehensive metabolic profile through her OB office. DISPOSITION: At this point the patient is in complete care of her automotive manager. Patient does have 1 more ultrasound office visit scheduled with us Thank you for allowing me to participate in Jessee Almodovar . If there any questions please do not hesitate to contact us. Sincerely, HECTOR MANCERA MD Video Visit via Real-time Synchronous Audiovisual Provider Location: [facility] AT [place] [id number] Patient Location: Other [facility] Patient Location Blackjack Dealer: None Video Visit Consent Statement: I discussed risks, [...] that there are some limitations compared to [id number] evaluations. We elected to proceed. documented in this encounter [employer] 06-02-2023 History of Presen t illness Narrative Reason for Appointment: Patient ID: Jessee Almodovar is a 33 y.o. female who presents for No chief complaint on file. Patient presents today via telephone call for a telehealth appointment. Patients Phone #: [phone] (mobile) Current Medications: has a current medication [...] or as needed. Will consider referral to [facility] in future Documented by Guillaume Vasquez DO on behalf of: Guillaume Vasquez DO documented in this encounter [facility] 05-02-2023 Miscellaneous Notes [address] [place] [address] [facility] [address] Patient: Jessee Almodovar Date of : 1990 Encounter Date: 05/02/2023 History of Present Illness/Psychiatric Review of Symptoms/Medical Review of Systems: Video Visit via Real-time Synchronous Audiovisual Provider Location: [facility] [address] [place] [address] Patient Location: patient's office in [place], [place] Video Visit Consent Statement: I discussed [...] that there are some limitations compared to [id number] evaluations. The patient consented to the presence of additional virtual and/or in-person participants. We elected to proceed. Jessee is a 33 y.o. female, established patient, and is logged on via [employer] for a follow-up video visit. HPI: Jessee reports she is feeling about the same since last visit. She was unable to tell the difference between taking the immediate release Adderall. She expresses frustrations with still feeling easily distractible. She has had a lot going on since the holidays. She enjoyed [place] and new year's with her immediate family. [...] [id number] documented in this encounter [facility] 05-02-2023 Progress note Formatting of t his note is different from the original. [address] [facility] [address] Patient: Jessee Almodovar Date of : 1990 Encounter Date: 05/02/2023 History of Present Illness/Psychiatric Review of Symptoms/Medical Review of Systems: Video Visit via Real-time Synchronous Audiovisual Provider Location: [facility] [address] [place] [address] Patient Location: patient's office in [place], [place] Video Visit Consent Statement: I discussed [...] that there are some limitations compared to [id number] evaluations. The patient consented to the presence of additional virtual and/or in-person participants. We elected to proceed. Jessee is a 33 y.o. female, established patient, and is logged on via [employer] for a follow-up video visit. HPI: Jessee [...] Moderate episode of recurrent major depressive disorder ([facility]-HCC) Generalized anxiety disorder Medication Changes: [...] Follow-up: In 4 weeks ASIF SCHAEFER CNP, [facility]-. BARAK De Leon 05/02/23 1746 [facility] 02-25-2023 Instructions Codi Cronin PA-C - 02/25/2023 1:56 PM EST Images from the original note were not included. MRI right hip Home exercises Continue with NSAIDS CSI right hip- may repeat in 3 months if needed documented in this encounter [facility] 02-25-2023 History of Presen t illness Narrative Associated Order(s): Large Joint Arthro/Inj: R greater trochanteric bursa Post-Procedure Diagnose(s): Greater trochanteric bursitis of right hip Orthopaedic Oncology Clinic Note Chief Complaint: Bone lesion of right femur- follow up Referring Physician: Roni Magaña History of Present Illness: Jessee is a [...] trochanteric bursa Informed Consent Consent Obtained: Verbal Parkin Protocol A moment to CARE was completed. [...] Making. Other additions or changes: None Signature: Link Mckinney MD Date: 03/01/2023 Time: 10:49 PM documented in this encounter [facility] 02-20-2023 History of Presen t illness Narrative Radiology Service Progress Note PATIENT [...] 2023 8:45 AM documented in this encounter [facility] 02-17-2023 Miscellaneous Notes Jourdan Atkins, My MA Karyna is having quite a bit of pain and dysfunction in the right hip. Most days in the mornings especially, are excruciating for her and she's unable to sleep on her right side. Would you mind to see her again please? I can get additional imaging first, if you'd like. Thanks, Td. documented in this encounter [facility] 08-01-2022 History of Presen t illness Narrative Radiology Service Progress Note PATIENT [...] 2022 9:04 AM documented in this encounter [facility] 07-10-2022 Evaluation note Encounter Date Diagnosis Assessment Notes Jun, Constipation (ICD-10 - K59.00) Jun, Change in bowel habits (ICD-10 - R19.4) Jun, Diarrhea (ICD-10 - R19.7) Patient to start Align probiotic. Jun, Bloating (ICD-10 - R14.0) [employer] Other 02-05-2023 Hospital Discharge instructions Patient Education 05/26/2022 10:06:58 Strep Throat, Adult, Tyle-tg-Mxpr Strep Throat, Adult Strep throat is an [...] Follow these instructions at home: Medicines Take lljh-zrc-uspfmsh and prescription medicines only as told by [...] 09/23/2008 Document Revised: 06/25/2019 Document Reviewed: 06/25/2019 [email or web address] Patient Education 2020 [employer]. 05/26/2022 10:06:56 BMI for Adults BMI for [...] height. This can be done either in [place] ([place] or metric measurements. Note that charts are available to help you find your BMI quickly and easily without having to do these calculations yourself. To calculate your BMI in [place] ([place] measurements, your health care provider will: [...] medical problems. BMI can be measured using Slovak measurements or metric measurements. To interpret your [...] 12/17/2004 Document Revised: 03/20/2018 Document Reviewed: 02/18/2018 [email or web address] Patient Education 2020 [employer]. Follow Up Care 05/26/2022 09:09:50 With:CHELSEA KRAUS DO Address: [facility] [address] [place] [address]- When: Unknown [facility] 11-08-2022 History of Present illness Narrative* Link Mckinney MD - 02/26/2022 11:00 AM EST Orthopaedic Oncology New Patient Evaluation Chief Complaint: Bone lesion of right femur Referring Physician: Roni Magaña History of Present Illness: Jessee Almodovar is a 32 year old year old female who presents for evaluation of the above chief complaint. Patient relates a several month history of intermittent abdominal pain for which she has undergone a workup with her edge finisher. 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 [...] recommendations are being sent back to Roni Magaña via [employer] Offset Printing Operator or Chart CC for [facility] Providers. Link Mckinney MD Maori Liaison Adviser, Orthopaedic Surgery Division of Musculoskeletal Oncology [facility] Evaluation + Plan note Extracted from: Title:ED Note Author:Mohan Garcia PA-C te:02/23/22 Sprain of left foot (S93.602 A: Unspecified sprain of left foot, initial encounter) Orders: Crutches Elastic Bandage Application XR Foot 3+ Views Left [facility]11-05-2022 Hospital Discharge instructions Patient Education 02/23/2022 [...] fully hardened. This may takeseveral hours. Take vlay-fuz-jzzoeek and prescription medicines only as told by [...] 09/27/2002 Document Revised: 04/11/2018 Document Reviewed: 04/11/2018 [email or web address] Patient Education 2020 [employer]. 02/23/2022 11:07:01 How to Use Cold Therapy, Ckks-hv-Tcbj How to Use Cold Therapy Cold therapy, [...] 09/23/2008 Document Revised: 01/04/2019 Document Reviewed: 01/04/2019 [email or web address] Patient Education 2020 [email or web address] 02/23/2022 11:07:01 Elastic Bandage and RICE [...] limityour activities and whether you should start jrial-sz-efyhcc exercises for your injury. Ice Ice your [...] 09/27/2002 Document Revised: 12/26/2017 Document Reviewed: 12/26/2017 [email or web address] Patient Education 2020 [employer]. Follow Up Care 02/23/2022 09:05:48 With:CHELSEA KRAUS Address: [facility] [address] [place], [place] [id number] Business (1) When:02/26/2022 10:46:43 Comments:Follow-up with your primary care provider in 3 to 5 days. If symptoms worsen, do not improve, or new symptoms arise please report back to emergency department for further evaluation. [facility]10-31-2022 History of Present illness Narrative* Kathrine [...] 18, 2022 3:09 PM [facility] Nurse Note* Lillie Smith - 11/08/2021 11:25 AM EDT UA performed as ordered. Lillie Smith [facility] History of Present illness Narrative* Macy Jones APRN.CNP - 10/04/2021 3:36 PM EDT Physical [facility] History general Narrative - Reported* Type Description Date Medical History Bernardo's thyroiditis Medical History Post- depression 2019 Surgical History D & C d/t miscarriage 08/2015 Surgical History LEEP 2012 Hospitalization History child [employer] Other Evaluation note* Diagnosis Acute bilateral low back pain with bilateral sciatica- Primary [facility] Diagnosis Pelvic pain- Primary [facility] Diagnosis Dysuria- Primary [facility]* Diagnosis Dysuria- Primary [facility]* Diagnosis Unspecified hypothyroidism- Primary [facility] Diagnosis Lytic bone lesion of femur- Primary [facility]* Diagnosis Moderate episode of recurrent major depressive disorder (HCC)- Primary [facility]* Diagnosis Unspecified hypothyroidism- Primary Essential hypertension, malignant Lipids blood increased Other and unspecified hyperlipidemia Vegans' anemia Other vitamin B12 deficiency anemia [facility]* Diagnosis Lytic bone lesion of femur- Primary [facility]* Diagnosis Lytic bone lesion of femur- Primary Greater trochanteric bursitis of right hip Enthesopathy of hip region Chronic pain of right hip Chronic low back pain, unspecified back pain laterality, unspecified whether sciatica present Pain of right hip Bone lesion Disorder of bone and cartilage, unspecified [facility]* Diagnosis Irregular menses- Primary Irregular menstrual cycle documented in this encounter [facility]* Diagnosis Lytic bone lesion of femur [facility]* Diagnosis Lytic bone lesion of femur [facility]* Diagnosis Lytic bone lesion of femur [facility]* Diagnosis 33 weeks gestation of Third trimester state, incidental Low iron Unspecified iron deficiency anemia Nonintractable headache, unspecified chronicity pattern, unspecified headache type Constipation, unspecified constipation type documented in this encounter [facility]* Diagnosis 35 weeks gestation of Third trimester state, incidental documented in this encounter [facility]* Diagnosis Third trimester state, incidental 37 weeks gestation of documented in this encounter [facility]* Diagnosis 6 weeks follow-up Anxiety and depression (CMS/HCC) Thyroid disease (CMS/HCC) Unspecified disorder of thyroid documented in this encounter [facility]* Diagnosis Second trimester state, incidental Thyroid disease (CMS/HCC) Unspecified disorder of thyroid documented in this encounter [facility]* Diagnosis Third trimester state, incidental Thyroid disease (CMS/HCC) Unspecified disorder of thyroid Excessive growth affecting management of in third trimester, single or unspecified fetus Pre-existing hypertension during , antepartum, unspecified pre-existing hypertension type documented in this encounter [facility] note* Diagnosis 31 weeks gestation of documented in this encounter [facility]* Diagnosis Attention deficit hyperactivity disorder (ADHD), predominantly 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 (CMS-HCC) Generalized anxiety disorder [facility] Diagnosis Hypertension affecting in first trimester- Primary Attention deficit hyperactivity disorder (ADHD), predominantly inattentive type Generalized anxiety disorder Encounter for follow-up ultrasound of anatomy [facility]* Diagnosis 24 weeks gestation of - Primary Hypothyroidism affecting , antepartum Generalized anxiety disorder Hypertension affecting in second trimester Macrosomia of fetus affecting management of mother in second trimester, single or unspecified fetus [facility]* Diagnosis Well woman exam with routine gynecological exam Routine gynecological examination documented in this encounter [facility] Healthcare[facility] note* Diagnosis Low grade squamous intraepithelial lesion on cytologic smear of cervix (LGSIL) Pap smear with atypical squamous cells, cannot exclude high grade squamous intraepithelial lesion (ASC-H) documented in this encounter [facility] HealthcareHospital course Narrative No data available for this section [facility]* Attachments The following attachments cannot be sent through Care Everywhere. * Methylphenidate, ADULT (Slovak) documented in this [facility] SystemInstructionsNot on file documented in this [facility]Pro[facility] SystemInstructionsNot on file documented in this [facility]Pro[facility] SystemInstructionsNot on file [facility] No data available for this section [facility] (narrative)* Diagnostic Procedure Only (Routine) - Pending Review Specialty Diagnoses / Procedures Referred By Bry t Referred To Contact XR IMAGING Diagnoses Lytic bone lesion of femur Procedures XR HIP GENERAL 3V PELV/AP/LAT RIGHT RADEX HIP UNILATERAL WITH PELVIS 2-3 VIEWS Link Mckinney MD [address] [place] [address] Xr Imaging Referral ID Status Reason Start Date Expiration Date Visits Requested Visits Authorized [id number] Pending Review Auto-Generat ed Referral 08/26/2022 03/28/2023 1 1 [facility] for referral (narrative)* Diagnostic Procedure Only (Routine) - Pending Review Specialty Diagnoses / Procedures Referred By Contac t Referred To Contact XR IMAGING Diagnoses Lytic bone lesion of femur Procedures XR HIP GENERAL 3V PELV/AP/LAT RIGHT RADEX HIP UNILATERAL WITH PELVIS 2-3 VIEWS Codi Cronin PA-C [address] [place] [address] [place] [address] Referral ID Status Reason Start Date Expiration Date Visits Requested Visits Authorized [id number] Pending Review Auto-Generat ed Referral 03/18/2024 1 1 [facility] for referral (narrative)* Diagnostic Procedure Only (Routine) - Closed Specialty Diagnoses / Procedures Referred By Contac t Referred To Contact XR IMAGING Diagnoses Lytic bone lesion of femur Procedures XR HIP GENERAL 3V PELV/AP/LAT RIGHT RADEX HIP UNILATERAL WITH PELVIS 2-3 VIEWS Roni Magaña MD [address] [place] [address] [place] [address] [place] [address] Referral ID Status Reason Start Date Expiration Date V isits Requested Visits Authorized [id number] Closed Auto-Generate d Referral 02/17/2023 03/18/2024 1 1 [facility] for referral (narrative)* Diagnostic Procedure Only (Routine) - Closed Specialty Diagnoses / Procedures Referred By Contac t Referred To Contact XR IMAGING Diagnoses Lytic bone lesion of femur Procedures XR HIP GENERAL 3V PELV/AP/LAT RIGHT RADEX HIP UNILATERAL WITH PELVIS 2-3 VIEWS Link Mckinney MD [address] [place] [address] [place] [address] Referral ID Status Reason Start Date Expiration Date V isits Requested Visits Authorized [id number] Closed Auto-Generate d Referral 08/26/2022 03/28/2023 1 1 [facility] Diagnostic Procedure Only (Routine) - Closed Specialty Diagnoses / Procedures Referred By Contac t Referred To Contact XR IMAGING Diagnoses Lytic bone lesion of femur Procedures XR HIP GENERAL 3V PELV/AP/LAT RIGHT RADEX HIP UNILATERAL WITH PELVIS 2-3 VIEWS Roni Magaña MD [address] [place] [address] Xr Imaging [facility] Referral ID Status Reason Start Date Expiration Date V isits Requested Visits Authorized [id number] Closed Auto-Generate d Referral 02/18/2022 03/20/2023 1 1 [facility] Reason for Referral Specialty Diagnoses / Procedures Referred By Contac t Referred To Contact [facility] Diagnoses Acute bilateral low back pain with bilateral sciatica Procedures CONSULT TO PHYSICAL THERAPY PHYSICAL THERAPY EVALUATION HIGH COMPLEX 45 MINS Macy Jones, SENIOR SUPPLY CHAIN ANALYST.DRUM CARRIER [address] [place] [address] [facility] [place] [address] [id number] Referral ID Status Reason Start Date Expiration Date Visits Requested Visits Authorized [id number] Pending Review Auto-Generat ed Referral 10/04/2021 10/04/2022 1 1 Specialty Diagnoses / Procedures Referred By Contac t Referred To Contact MR IMAGING Diagnoses Greater trochanteric bursitis of right hip Chronic pain of right hip Pain of right hip Bone lesion Procedures MRI HIP WO IVCON RIGHT MRI ANY JT LOWER EXTREM W/O CONTRAST MATRL Codi Cronin, PAYamel [address] [place] [address] [place] [address] Referral ID Status Reason Start Date Expiration Date Visits Requested Visits Authorized [id number] Authorized Auto-Generat ed Referral 02/25/2023 03/26/2024 1 1 Specialty Diagnoses / Procedures Referred By Contac t Referred To Contact Maternal and Medicine Diagnoses Hypertension affecting in first trimester Attention deficit hyperactivity disorder (ADHD), predominantly inattentive type Generalized anxiety disorder Encounter for follow-up ultrasound of anatomy Procedures US MFM with or without consult Hector Mancera MD [address] [place] [address] [facility] Maternal Med [address] [place] [address] Referral ID Status Reason Start Date Expiration Date V isits Requested Visits Authorized [id number] Pending Review 10/16/2023 10/15/2024 1 1 Summary Purpose Family History No [...] or prosecute any alcohol or drug abuse patient.[facility] the event this information is protected by the Federal Confidentiality of Alcohol and Drug Abuse Patient Records regulations: The Federal rules restrict any use of the information to criminally investigate or prosecute any alcohol or drug abuse patient.[facility] the event this information is protected by the Federal Confidentiality of Alcohol and Drug Abuse Patient Records regulations: The Federal rules restrict any use of the information to criminally investigate or prosecute any alcohol or drug abuse patient.[facility] the event this information is protected by the Federal Confidentiality of Alcohol and Drug Abuse Patient Records regulations: The Federal rules restrict any use of the information to criminally investigate or prosecute any alcohol or drug abuse patient.[facility] the event this information is protected by the Federal Confidentiality of Alcohol and Drug Abuse Patient Records regulations: The Federal rules restrict any use of the information to criminally investigate or prosecute any alcohol or drug abuse patient.[facility] the event this information is protected by the Federal Confidentiality of Alcohol and Drug Abuse Patient Records regulations: The Federal rules restrict any use of the information to criminally investigate or prosecute any alcohol or drug abuse patient.[facility] the event this information is protected by the Federal Confidentiality of Alcohol and Drug Abuse Patient Records regulations: The Federal rules restrict any use of the information to criminally investigate or prosecute any alcohol or drug abuse patient.[facility] the event this information is protected by the Federal Confidentiality of Alcohol and Drug Abuse Patient Records regulations: The Federal rules restrict any use of the information to criminally investigate or prosecute any alcohol or drug abuse patient.[facility] the event this information is protected by the Federal Confidentiality of Alcohol and Drug Abuse Patient Records regulations: The Federal rules restrict any use of the information to criminally investigate or prosecute any alcohol or drug abuse patient.[facility] the event this information is protected by the Federal Confidentiality of Alcohol and Drug Abuse Patient Records regulations: The Federal rules restrict any use of the information to criminally investigate or prosecute any alcohol or drug abuse patient.[facility] the event this information is protected by the Federal Confidentiality of Alcohol and Drug Abuse Patient Records regulations: The Federal rules restrict any use of the information to criminally investigate or prosecute any alcohol or drug abuse patient.[facility] the event this information is protected by the Federal Confidentiality of Alcohol and Drug Abuse Patient Records regulations: The Federal rules restrict any use of the information to criminally investigate or prosecute any alcohol or drug abuse patient.[facility] the event this information is protected by the Federal Confidentiality of Alcohol and Drug Abuse Patient Records regulations: The Federal rules restrict any use of the information to criminally investigate or prosecute any alcohol or drug abuse patient.[facility] Patient Care team informatio n (unrecognized section and content) Home Attendant Relationship Specialty Start Date End Date Anupama Brown DO [address] [place] [address] PCP - General Family Medicine 07/25/22 Emile Mesa MD [address] [address] Gastroenterology 07/25/22 Guillaume Vasquez, [address] [facility] [place] [place] [address] ALL AROUND PRESSER 07/25/22 Home Attendant Relationship Specialty Start Date End Date Anupama Brown DO [address] [place] [address] PCP - General Family Medicine 07/25/22 Emile Mesa MD [address] [address] Gastroenterology 07/25/22 Guillaume Vasquez DO [address] [place] [address] ALL AROUND PRESSER 07/25/22 Home Attendant Relationship Specialty Start Date End Date Anupama Brown DO [address] [place] [address] PCP - General Family Medicine 07/25/22 Emile Mesa MD [address] [place] [address] Gastroenterology 07/25/22 Guillaume Vasquez DO [address] [place], [place] [address] [address] ALL AROUND PRESSER 07/25/22 Home Attendant Relationship Specialty Start Date End Date Anupama Brown DO [address] [place] [address] PCP - General Family Medicine 07/25/22 Emile Mesa MD [address] [address] Gastroenterology 07/25/22 Guillaume Vasquez DO [address] [place], [place] [address] [address] ALL AROUND PRESSER 07/25/22 Home Attendant Relationship Specialty Start Date End Date Anupama Brown MD [address] [place] [phone] PCP - General Family Medicine 03/04/23 Home Attendant Relationship Specialty Start Date End Date Anupama Brown MD [address] [place] [address] PCP - General Family Medicine 03/04/23 Home Attendant Relationship Specialty Start Date End Date Anupama Brown DO [address] [place] [address] PCP - General Family Medicine 07/25/22 Emile Mesa MD [address] [place] [address] Gastroenterology 07/25/22 Guillaume Vasquez DO [address] [place], [place] [address] [address] Crab Fisherman 07/25/22 Home Attendant Relationship Specialty Start Date End Date Anupama Brown DO [address] [place] [address] PCP - General Family Medicine 07/25/22 Emile Mesa MD [address] [place] [address] Gastroenterology 07/25/22 Guillaume Vasquez DO [address] [place], [place] [address] [address] Crab Fisherman 07/25/22 Home Attendant Relationship Specialty Start Date End Date Anupama Brown MD [address] [place] [phone] PCP - General Family Medicine 03/04/23 Home Attendant Relationship Specialty Start Date End Date Anupama Brown MD [address] [place] [address] PCP - General Family Medicine 03/04/23 Home Attendant Relationship Specialty Start Date End Date Anupama Brown MD [address] [place] [address] PCP - General Family Medicine 03/04/23 Home Attendant Relationship Specialty Start Date End Date Anupama Brown MD [address] [place] [address] PCP - General Family Medicine 03/04/23 Home Attendant Relationship Specialty Start Date End Date Anupama Brown MD [address] [place] [phone] PCP - General Family Medicine 03/04/23 Home Attendant Relationship Specialty Start Date End Date Anupama Brown MD [address] [place] [phone] PCP - General Family Medicine 03/04/23 Home Attendant Relationship Specialty Start Date End Date Anupama Brown MD [address] [phone] PCP - General Family Medicine 03/04/23 Home Attendant Relationship Specialty Start Date End Date Anupama Brown MD [address] [place] [phone] PCP - General Family Medicine 03/04/23 Home Attendant Relationship Specialty Start Date End Date Anupama Brown MD [address] [place] [address] PCP - General Family Medicine 03/04/23 Home Attendant Relationship Specialty Start Date End Date Anupama Brown MD [address] [place] [address] PCP - General Family Medicine 03/04/23 Home Attendant Relationship Specialty Start Date End Date Chelsea Kraus DO [address] [place], [place] [id number] PCP - General Family Medicine 07/02/19 Home Attendant Relationship Specialty Start Date End Date Chelsea Kraus DO [address] [place] [address] PCP - General Family Medicine 07/02/19 Home Attendant Relationship Specialty Start Date End Date Chelsea Kraus DO [address] [place] [address] PCP - General Family Medicine 07/02/19 Home Attendant Relationship Specialty Start Date End Date Anupama Brown MD PCP - General Family Medicine 03/04/23 Home Attendant Relationship Specialty Start Date End Date Anupama Brown MD PCP - General Family Medicine 03/04/23 Home Attendant Relationship Specialty Start Date End Date Anupama Brown MD PCP - General Family Medicine 03/04/23 Home Attendant Relationship Specialty Start Date End Date Anupama Brown MD PCP - General Family Medicine 03/04/23 Reason for Visit (unrecogniz ed section and content) Reason Comments New Pain Tumor/Mass Specialty Diagnoses / Procedures Referred By Contac t Referred To Contact Orthopedics Diagnoses Lytic bone lesion of femur Procedures CONSULT TO ORTHOPAEDICS OFFICE/OUTPATIENT NEW HIGH MDM 60-74 MINUTES Roni Magaña MD [address] [place] [address] [place] [address] Referral ID Status Reason Start Date Expiration Date V isits Requested Visits Authorized [id number] Closed PCP Requested Referral 02/18/2022 02/18/2023 1 1 Reason Comments New Pain Reason Comments Radio Gen RMP Specialty Diagnoses / Procedures Referred By Contac t Referred To Contact XR IMAGING Diagnoses Lytic bone lesion of femur Procedures XR HIP GENERAL 3V PELV/AP/LAT RIGHT RADEX HIP UNILATERAL WITH PELVIS 2-3 VIEWS Roni Magaña MD [address] [place] [address] [place] [address] Xr Imaging [place] [address] Referral ID Status Reason Start Date Expiration Date V isits Requested Visits Authorized [id number] Closed Auto-Generate d Referral 02/17/2023 03/18/2024 1 1 Specialty Diagnoses / Procedures Referred By Contac t Referred To Contact XR IMAGING Diagnoses Lytic bone lesion of femur Procedures XR HIP GENERAL 3V PELV/AP/LAT RIGHT RADEX HIP UNILATERAL WITH PELVIS 2-3 VIEWS Link Mckinney MD [address] [place] [address] Xr Imaging [facility]95 Referral ID Status Reason Start Date Expiration Date V isits Requested Visits Authorized [id number] Closed Auto-Generate d Referral 08/26/2022 03/28/2023 1 1 Referral ID Status Reason Start Date Expiration Date V isits Requested Visits Authorized [id number] Closed Auto-Generate d Referral 02/18/2022 03/20/2023 1 1 Reason Comments Routine Visit Reason Comments Follow-up Reason Comments mfm video visit Reason Comments Hx hypertension Hx Thyroid Diseas Reason Comments Well Women Visit Reason Comments Abnormal Pap Smear INFORMATION SOURCE (unrecogn ized section and content) DATE CREATED AUTHOR 05/08/2022 [facility] DATE CREATED AUTHOR AUTHOR'S ORGANIZ ATION 05/26/2022 [facility] DATE CREATED AUTHOR AUTHOR'S ORGANIZ ATION 05/04/2023 [facility] DATE CREATED AUTHOR AUTHOR'S ORGANIZ ATION 06/06/2023 [facility] DATE CREATED AUTHOR AUTHOR'S ORGANIZ ATION 10/17/2023 [facility] DATE CREATED AUTHOR AUTHOR'S ORGANIZ ATION 07/23/2024 [facility] DATE CREATED AUTHOR AUTHOR'S ORGANIZ ATION 12/02/2024 [facility] Specialists [facility] FOR RECORDS PERTAINING TO PATIENTS [...] BE BASED ON THE PRIMARY CLINICAL RECORDS. [facility] [employer] provides no warranty or guarantee of the accuracy or completeness of information in this document.
--- NOTE | 2024-12-22 09:37 | ECG_ITS ---
[facility] Test Date: 2024-12-22 Pat Name: JESSEE JEFFERS Department: Room: - Gender: Female Crm Dynamics Developer: : 1990 Requested By: TEE RUBIN Order Number: [id number] Reading MD: BRE MOSQUEDA Measurements Intervals [place] Rate: 82 P: 16 GA: 104 QRS: 52 QRSD: 77 T: 37 QT: 344 QTc: 403 Interpretive Statements SINUS RHYTHM WITH SHORT GA INTERVAL No previous ECG available for comparison Electronically Signed On 12-22-2024 13:59:05 EDT by BRE MOSQUEDA
== END 2024-12-22 09:04 | disposition home or self-care (01) ==
PROVIDERS: PCP Family Medicine; Visit Provider Obstetrics & Gynecology
DX: Z01.810 Encounter for preprocedural cardiovascular examination (principal); R87.610 Atypical squamous cells of undetermined significance on cytologic smear of cervix (ASC-US)
CPT/HCPCS: 93005

== ENCOUNTER 2024-12-31 07:32 | Day surgery (SDC) | payer OTHER, SELFPAY ==
--- OUTSIDE RECORDS SUMMARY | 2024-10-12 06:45 | XMS_ITS ---
Author Organization [facility] es Address [address] [facility] [place] [place] [address] Care Team Providers Care Project Management Instructor Name Role Phone Paola, Alondra Primary Care Provider REASON FOR VISIT fu rs Social History Sex Assigned At : Social History Observation Description Sex Assigned At Female Encounters Encounter Location Date Provider Diagnosis [place] [address] [place] [address] 10/12/2024 Alondra Guevara Plan Of Treatment Next Appt Details Provider Name:Alondra Mcmahon n, 01/11/2025 09:00:00 AM, [address] [facility] [place], [address], Progress Notes * JESSEE ALMODOVAR BDOB:1989 (34 yo F)Acc No.[id number]:10/12/2024 Behavioral Health Patient: Kristin JARAJESSEE Bird Provider: Devaughn Guevara CNP :1990 A ge:34 Y S ex:Female Date:10/12/2024 Address:[address], [place] [facility], [id number] Subjective: * Chief Complaints: * 1 . fu rs. * Medical History: Objective: * Vitals: Assessment: Plan: * Treatment: * Images: * Electronic signature of DE Johnson on 12/31/2024 at 07:36 AM EDT Sign off status: Pending * Provider: Devaughn Guevara CNP Date: 0 10/12/2024 Generated for Zulma keating/Mariya/Garciaitting on: 0 12/31/2024 07:36 AM EDT
--- OUTSIDE RECORDS SUMMARY | 2024-10-19 07:15 | XMS_ITS ---
Author Organization [facility] es Address [address] [place] [address] Care Team Providers Care Patent Lawyer Name Role Phone Paola, Alondra Primary Care Provider [phone] REASON FOR VISIT [facility] RS 10/11 Social History Sex Assigned At : Social History Observation Description Sex Assigned At Female Encounters Encounter Location Date Provider Diagnosis [facility] [address] [place] [address] 10/19/2024 Alondra Guevara Plan Of Treatment Next Appt Details Provider Name:Alondra Mcmahon n, 01/11/2025 09:00:00 AM, [address] [facility] [place], [address], Progress Notes * JESSEE ALMODOVAR BDOB:1989 (34 yo F)Acc No.[id number]:10/19/2024 Behavioral Health Patient: Kristin JARAJESSEE Bird Provider: Devaughn Guevara CNP :1990 A ge:34 Y S ex:Female Date:10/19/2024 Address:[address], [facility] [id number] Subjective: * Chief Complaints: * 1 . [facility] RS 10/11. * Medical History: Objective: * Vitals: Assessment: Plan: * Treatment: * Images: * Electronic signature of DE Johnson on 12/31/2024 at 07:37 AM EDT Sign off status: Pending * Provider: Devaughn Guevara CNP Date: 0 10/19/2024 Generated for Zulma keating/Mariya/Garciaitting on: 0 12/31/2024 07:37 AM EDT
--- OUTSIDE RECORDS SUMMARY | 2024-11-10 06:30 | XMS_ITS ---
Author Organization [facility] Address [address] [place] [address] Care Team Providers Care Lathe Set Up Operator Name Role Phone Paola Alondra Primary Care Provider REASON FOR VISIT [facility] Social History Sex Assigned At : Social History Observation Description Sex Assigned At Female Encounters Encounter Location Date Provider Diagnosis [facility] [address] [place] [address] 11/10/2024 Alondra Guevara Plan Of Treatment Next Appt Details Provider Name:Alondra A Hyjosé miguel n, 01/11/2025 09:00:00 AM, [address] [place] [place], [address], Progress Notes * JESSEE ALMODOVAR BDOB:1989 (34 yo F)Acc No.[id number]:11/10/2024 Behavioral Health Patient: Kristin JARAJESSEE Bird Provider: Devaughn Guevara CNP :1990 A ge:34 Y S ex:Female Date:11/10/2024 Address:[address], [address] [facility], [id number] Subjective: * Chief Complaints: * 1 . FU. * Medical History: Objective: * Vitals: Assessment: Plan: * Treatment: * Images: * Electronic signature of DE Johnson on 12/31/2024 at 07:37 AM EDT Sign off status: Pending * Provider: Devaughn Guevara CNP Date: 0 11/10/2024 Generated for Zulma keating/Mariya/Garciaitting on: 0 12/31/2024 07:37 AM EDT
[2024-12-22 09:42] VITALS: BP 152/88; PULSE 100; TEMP 36.3; O2SAT 100; BMI 23.9
--- OUTSIDE RECORDS SUMMARY | 2024-12-31 07:37 | XMS_ITS | Encounter Summary ---
Author Organization [facility] Address [address] [place] [address] Care Team Providers Care Systems Support Specialist Name Role Phone Chhaya Ceballos MD Primary Care Provider Franny Hager Unavailable Encounter Details Date Type Department Care Team (Late Contact Info) Description 10/16/2023 Abstract YAMILET JENNINGS [address] [place] [address] Lisa Montes LPN [address] [employer] [facility] Adriana [facility]11 Social History Tobacco Use Types [...] 10:20 AM EDT Office Visit YAMILET JENNINGS [facility] [place] [place] [address] Guillaume Vasquez DO [address] [place] [address] 11/01/2025 9:00 AM EDT Office Visit NOM[facility] Ketan JENNINGS [address] [phone] Guillaume Vasquez DO [address] [facility] [place] [address] documented as of this encounter Visit Diagnoses Not on filedocumented in this encounter Care Teams Systems Support Specialist Relationship Specialty Start Date End Date Chhaya Ceballos MD PCP - General Family Medicine 03/04/23 Franny Hager PA [address] [facility] [place] [address] PCP - Medical [place] [employer] 07/10/18 04/20/99 documented as of this encounter
--- OUTSIDE RECORDS SUMMARY | 2024-12-31 07:37 | XMS_ITS | Encounter Summary ---
Author Organization [facility] Address [address] [place] [address] Care Team Providers Care Kitchen Utility Associate Name Role Phone Chhaya Ceballos MD Primary Care Provider [phone] Franny Hager Unavailable Encounter Details Date Type Department Care Team (Late st Contact Info) Description 01/06/2024 Abstract YAMILET JENNINGS [facility] [place] [address] Guillaume Vasquez DO [address], [place] [address] Social History Tobacco Use Types Packs/Day Years [...] [address] Guillaume Vasquez DO [address], [facility] 11/01/2025 9:00 AM EDT Office Visit NOMS Ketan JENNINGS [address] [place] [address] Guillaume Vasquez DO [address] [facility] [place] [address] documented as of this encounter Visit Diagnoses Not on filedocumented in this encounter Care Teams Kitchen Utility Associate Relationship Specialty Start Date End Date Chhaya Ceballos MD PCP - General Family Medicine 03/04/23 Franny Hager PA [address] [facility] [place] [address] PCP - Medical [place] [employer] 07/10/18 04/20/99 documented as of this encounter
--- OUTSIDE RECORDS SUMMARY | 2024-12-31 07:37 | XMS_ITS | Encounter Summary ---
Author Organization [facility] Address [address] [place] [address] Care Team Providers Care Waste Handling Technician Name Role Phone Chhaya Ceballos MD Primary Care Provider Franny Hager Unavailable Encounter Details Date Type Department Care Team (Late Contact Info) Description 11/20/2023 Abstract YAMILET JENNINGS [facility] [place] [address] Guillaume Vasquez DO [address], [place] [address] Social History Tobacco Use Types Packs/Day Years [...] [address] Guillaume Vasquez DO [address], [facility] 11/01/2025 9:00 AM EDT Office Visit NOMS Ketan JENNINGS [address] [place] [address] Guillaume Vasquez DO [address] [facility] [place] [address] documented as of this encounter Visit Diagnoses Not on filedocumented in this encounter Care Teams Waste Handling Technician Relationship Specialty Start Date End Date Chhaya Ceballos MD PCP - General Family Medicine 03/04/23 Franny Hager PA [address] [facility] [place] [address] PCP - Medical [place] [employer] 07/10/18 04/20/99 documented as of this encounter
--- OUTSIDE RECORDS SUMMARY | 2024-12-31 07:37 | XMS_ITS | Encounter Summary ---
Author Organization [facility] Address [address] [place] [address] Care Team Providers Care Tire Tester Name Role Phone Chhaya Ceballos MD Primary Care Provider Franny Hager Unavailable Encounter Details Date Type Department Care Team (Late st Contact Info) Description 01/28/2024 Clinisync Result Encounter NOMS External Department Unsolicited Tee Vasquez, [address], [place] [id number] Social History Tobacco Use Types Packs/Day Years [...] Visit NOMAnil [place] [facility] [address] [place] [phone] Tee Vasquez DO [address] [place] [address] 11/01/2025 9:00 AM EDT Office Visit [facility]OM[facility] Ketan MOCKGYMarge [address] [place] [address] Tee Vasquez DO [address] [facility] [place] [address] documented as of this encounter Procedures Procedure Name Priority Date/Time Associated Diagnosis Comments US OB BPP W NON-STRESS 01/28/2024 10:20 AM EDT documented in this encounter Results * US OB BPP W NON-STRESS (01/28/2024 10:20 AM EDT) Anatomical Region Laterality Modality Other 01/28/2024 10:2 0 AM EDT Narrative 01/28/2024 10:22 AM EDT The [place] [id number] Ultrasound Report Signed Patient: JESSEE ALMODOVAR MR#: [id number] : 1990 Acct:[id number] Age/Sex: 33 / F ADM Date: 01/28/24 Loc: [facility] 252-[address]: Tee Vasquez D.O. Ordering Physician: Tee Vasquez D.O. Date of Service: 01/28/24 Procedure(s): US OB BPP w non-stress Accession Number(s): [id number] cc: Tee Vasquez D.O.; Physician,Non-Staff M.DCristopher The [address] [address] Patient Name: JESSEE ALMODOVAR MRN: [id number] date: 1990 Sex: F Assigned Patient Location: [facility] Current Patient Location: [facility] Accession/Order Number: [id number] Exam Date: 01/28/2024 09:20 Report Date: 01/28/2024 [...] Signed By: 01/28/24 1022 DD/ 1020 TD/TT: Rfid Manager: Procedure Note Radiology, Radiologist, MD - 01/28/2024 [place] [address] Ultrasound Report Signed Patient: JESSEE ALMODOVAR BMR#: [id number] : 1990Acct:[id number] Age/Sex: 33 / FADM Date: 01/28/24 Loc: [facility] 252-[address]: Tee Vasquez D.O. Ordering Physician: Tee Vasquez D.O. Date of Service: 01/28/24 Procedure(s): US OB BPP w non-stress Accession Number(s): [id number] cc: Tee Vasquez D.O.; Physician,Non-Staff M.Zarina The [place] [id number] Patient Name: JESSEE ALMODOVAR MRN: [id number] date: 1990 Sex: F Assigned Patient Location: [facility] Current Patient Location: [facility] Accession/Order Number: [id number] Exam Date: 01/28/2024 09:20 Report Date: 01/28/2024 [...] M.D. Signed By:01/28/24 1022 DD/ 1020 TD/TT: Rfid Manager: us Tee Pedro DO [facility] Final Result documented in this encounter Visit Diagnoses Not on filedocumented in this encounter Care Teams Tire Tester Relationship Specialty Start Date End Date Chhaya Ceballos MD PCP - General Family Medicine 03/04/23 Franny Hager PA [address] [place] [address] [place] [address] PCP - Medical [place] [employer] 07/10/18 04/20/99 documented as of this encounter
--- OUTSIDE RECORDS SUMMARY | 2024-12-31 07:37 | XMS_ITS | Encounter Summary ---
Author Organization [facility] Address [address] [place] [address] Care Team Providers Care Cardiothoracic Anesthesia Technician Name Role Phone Chhaya Ceballos MD Primary Care Provider Franny Hager Unavailable Encounter Details Date Type Department Care Team (Late Contact Info) Description 08/11/2023 Abstract YAMILET JENNINGS [address] [place] [address] Lisa Montes LPN [address] [employer] [facility] Adriana COLLINS [facility]11 Social History Tobacco Use Types Packs/Day Years [...] 10:20 AM EDT Office Visit YAMILET JENNINGS [employer] [place] [address] Guillaume Vasquez DO [address] [place] [address] 11/01/2025 9:00 AM EDT Office Visit NOM[facility] Ketan JENNINGS [address] [place] [phone] Guillaume Vasquez DO [address] [facility] [place] [address] documented as of this encounter Visit Diagnoses Not on filedocumented in this encounter Care Teams Cardiothoracic Anesthesia Technician Relationship Specialty Start Date End Date Chhaya Ceballos MD PCP - General Family Medicine 03/04/23 Franny Hager PA [address] [facility] [place] [address] PCP - Medical [place] [employer] 07/10/18 04/20/99 documented as of this encounter
--- OUTSIDE RECORDS SUMMARY | 2024-12-31 07:37 | XMS_ITS | Encounter Summary ---
Author Organization [facility] Address [address] [place] [address] Care Team Providers Care Cyber Reverse Engineer Name Role Phone Chhaya Ceballos MD Primary Care Provider [phone] Franny Hager Unavailable Encounter Details Date Type Department Care Team (Late st Contact Info) Description 07/23/2024 Abstract YAMILET JENNINGS [facility] [place] [address] Guillaume Vasquez DO [address], [place] [address] Social History Tobacco Use Types Packs/Day Years [...] EDT Office Visit YAMILET JENNINGS [address] [place] [address] Guillaume Vasquez DO [address], [facility] 11/01/2025 9:00 AM EDT Office Visit NOMS Ketan JENNINGS [address] [place] [address] Guillaume Vasquez DO [address] [facility] [place] [address] documented as of this encounter Visit Diagnoses Not on filedocumented in this encounter Care Teams Cyber Reverse Engineer Relationship Specialty Start Date End Date Chhaya Ceballos MD PCP - General Family Medicine 03/04/23 Franny Hager PA [address] [facility] [place] [address] PCP - Medical [place] [employer] 07/10/18 04/20/99 documented as of this encounter
--- OUTSIDE RECORDS SUMMARY | 2024-12-31 07:37 | XMS_ITS | Clinical Summary ---
Author Organization [facility] Address [address] [place] [address] Care Team Providers Care Bellperson Name Role Phone Chhaya Ceballos MD Primary Care Provider [phone] Franny Hager Unavailable Allergies No known active allergies Medications MV-Min-Fe Fum-FA-DHA ( 1 PO) Take by mouth. Active levothyroxine (Synthroid, Levoxyl) 200 MCG tabletIndications :Thyroid disease Take 1 tablet (200 mcg) by mouth in the morning. 30 tablet 11 4 Active omeprazole (PriLOSEC) [address] capsuleIndication s:Other specified related conditions, first trimester (HHS-HCC) Take 1 capsule by mouth once daily. 30 capsule 11 5 Active amphetamine-dextr oamphetamine XR (Adderall XR) 10 MG 24 hr capsule Take 20 mg by mouth in the morning. Active Adderall 5 MG tablet Take 10 mg by mouth if needed 5 Active venlafaxine XR (Effexor XR) 150 MG 24 hr capsule Take 150 mg by mouth Daily 5 Active labetalol (Normodyne) 100 MG tabletIndications :Pre-existing hypertension during , antepartum, unspecified pre-existing hypertension type (HHS-HCC) Take 1 tablet (100 mg) by mouth in the morning and 1 tablet (100 mg) before bedtime. 60 tablet 11 5 10/28/19 26 Active Active Problems Problem Noted Date Diagnosed Date Irregular menses 06/02/2023 Encounters Date Type Department Care Team Description 12/23/2024 Abstract [facility] Ketan JENNINGS [address] [place] [address] Vilma Case MA 12/22/2024 Clinisync Result Encounter NOMS External Department Unsolicited Tee Vasquez DO 11/30/2024 2:40 PM EDT [place] [address] Tee Vasquez DO Low grade squamous intraepithelial lesion on cytologic smear of cervix (LGSIL); Pap smear with atypical squamous cells, cannot exclude high grade squamous intraepithelial lesion (ASC-H) 11/30/2024 Bamboo flowsheet [facility]OM[facility] Ketan JENNINGS [address] [place] [address] Tee Vasquez DO 11/05/2024 Results Follow-Up NOMS Ketan JENNINGS [address] [place] [address] MpingerJeanne, HEADRIG SAWYER IGP,APTIMA HPV,AGE GDLN 10/27/2024 Refill [facility]OM[facility] Ketan JENNINGS [address] [place] [address] Tee Vasquez DO Pre-existing hypertension during , antepartum, unspecified pre-existing hypertension type ([facility]) 10/26/2024 9:00 AM EDT Office Visit NOMS Ketan JENNINGS [address] [place] [address] Tee Vasquez DO Well woman exam with routine gynecological exam 10/26/2024 Clinisync Result Encounter NOMS External Department Unsolicited Tee Vasquez DO 10/26/2024 Bamboo flowsheet NOMS Ketan JENNINGS [address] [place] [address] Tee Vasquez DO from Last 3 Months Family [...] 10:20 AM EDT Office Visit YAMILET JENNINGS [address] [place], [place] [address] [place] [address] Tee Vasquez DO [address] [place], [place] [address] 11/01/2025 9:00 AM EDT Office Visit YAMILET JENNINGS [address] [place] [address] Tee Vasquez DO [address] [place], [place] [address] Health Maintenance Due Date Last Done Comments Influenza Vaccine (#1) 2024 , 01/28/2023, 02/14/2022, Additional history exists Pap Smear 10/27/2027 10/26/2024, 10/21/2023 Cervical Cancer Screening 10/20/2028 HPV/Cotest 10/20/2028 02/22/2019 Procedures Procedure Name Priority Date/Time Associated Diagnosis Comments ECG 12-LEAD 12/22/2024 7:43 AM EDT IGP,APTIMA HPV,AGE GDLN Routine 10/26/2024 9:13 AM EDT PAP SMEAR Routine 10/26/2024 12:00 AM EDT THINPREP TIS PAP REFLEX HPV MRNA E6/E7 (46253) Routine 02/22/2019 from Last 3 Months or Most Recently Relevant to Health Maintenance Results * ECG 12-LEAD (12/22/2024 7:43 AM EDT) Anatomical Region Laterality Modality Other 12/22/2024 7:43 AM EDT Narrative 12/22/2024 1:59 [place] [address] Electrocardiograph Report Signed Patient: JESSEE ALMODOVAR MR#: [id number] : 1990 Acct:[id number] Age/Sex: 34 / F ADM Date: 12/22/24 Loc: [facility] Attending Dr: Tee Vasquez D.O. Ordering Physician: Tee Vasquez D.O. Date of Service: 12/22/24 Procedure(s): ECG 12 lead Accession Number(s): [id number] cc: [facility] Test Date: 2024-12-22 Pat Name: JESSEE ALMODOVAR Department: Room: - Gender: Female Regulatory And Compliance Technician: : 1990 Requested By: TEE VASQUEZ Order Number: [id number] Reading MD: DASHA CHIU Measurements Intervals [place] Rate: 82 P: 16 MS: 104 QRS: 52 QRSD: 77 T: 37 QT: 344 QTc: 403 Interpretive Statements SINUS RHYTHM WITH SHORT MS INTERVAL No previous ECG available for comparison Electronically Signed On 12-22-2024 13:59:05 EDT by DASHA CHIU Dictated By: Dasha Chiu M.D. Signed By: 12/22/24 1359 DD/ 0743 TD/TT: Turn Down Man: Procedure Note Radiology, Radiologist, - 12/22/2024 [place] [address] Electrocardiograph Report Signed Patient: JESSEE ALMODOVAR BMR#: [id number] : 1990Acct:[id number] Age/Sex: 34 / FADM Date: 12/22/24 Loc: PST Attending Dr: Tee Vasquez D.O. Ordering Physician: Tee Vasquez D.O. Date of Service: 12/22/24 Procedure(s): ECG 12 lead Accession Number(s): [id number] cc: [facility] Test Date: 2024-12-22 Pat Name: JESSEE ALMODOVAR Department: Room: - Gender: Female Regulatory And Compliance Technician: : 1990 Requested By: TEE VASQUEZ Order Number: [id number] Reading MD: DASHA CHIU Measurements Intervals [place] Rate: 82 P: 16 MS: 104 QRS: 52 QRSD: 77 T: 37 QT: 344 QTc: 403 Interpretive Statements SINUS RHYTHM WITH SHORT MS INTERVAL No previous ECG available for comparison Electronically Signed On 12-22-2024 13:59:05 EDT by DASHA CHIU Dictated By: Dasha Chiu M.D. Signed By:12/22/24 1359 DD/ TD/TT: Turn Down Man: us Tee Vasquez DO [facility] Final Result * (ABNORMAL) IGP,APTIMA HPV,AGE GDLN (10/26/2024 9:13 AM EDT) AGE GDLN ACOG TESTING Note . TB Comment: TESTS RESULT FLAG UNITS REF RANGE LAB Clinician Provided Cytology Information Source.............Cervix;Endocervix No. of containers..01 ThinPrep Vial Age Luis CABALLERO Anayeli... 30-65 FLAG LEGEND: L-Low Normal,H-High Normal,LL-Alert Low,HH-Alert High <-Panic Low,>-Panic High,A-Abnormal,AA-Critical Abnormal Performed at: 01 [address] [facility] [address] Gabrielle Luna MD, IGP, APTIMA HPV, RFX 16/18,45 Note(A) . [facility] Comment: TESTS RESULT FLAG UNITS REF RANGE LAB DIAGNOSIS: [A] 02 EPITHELIAL CELL ABNORMALITY. LOW GRADE SQUAMOUS INTRAEPITHELIAL LESION (LSIL). ATYPICAL SQUAMOUS CELLS, CANNOT EXCLUDE HIGH-GRADE SQUAMOUS INTRAEPITHELIAL LESION (ASC-H). Recommendation: [A] 02 Suggest colposcopy and biopsy if indicated. Specimen adequacy: 02 Satisfactory for evaluation. Endocervical and/or squamous metaplastic cells (endocervical component) are present. Performed by: Terence Martinez, Pneumatic Tool Operator ([facility]) Electronically si... Christine Alvarez MD, Pathologist . 02 Pathologist [...] <-Panic Low,>-Panic High,A-Abnormal,AA-Critical Abnormal Performed at: [address] [address] Gabrielle Luna MD, HPV APTIMA Positive( A) Negative TB Comment: This nucleic acid amplification test detects fourteen high- risk HPV types (16,18,31,33,35,39,45,51,52,56,58,59,66,68) without differentiation. Performed at: [address] [id number] Scouring Train Operator Chief: Gabrielle Luna MD, Phone: [phone] Performed at: [address] [id number] Scouring Train Operator Chief: Gabrielle Luna MD, Phone: [phone] 10/26/2024 9:13 AM EDT 10/26/2024 12:28 PM EDT Narrative [facility] - 10/30/2024 10:08 AM EDT BRUSH-SPATULA CERVIX ENDOCERVIX us Tee Pedro DO LAB BLOOD ORDERABLES Final Resul t [facility] * (ABNORMAL) Pap Smear (10/26/2024 12:00 AM EDT) Swab Cervical swab / Unknown us Tee Pedro DO LAB CYTOLOGY ORDERABLES Final Re sult EXTERNAL LAB * THINPREP TIS PAP REFLEX HPV MRNA E6/E7 ([id number]) (02/22/2019) CLINICAL INFORMATION: None given [facility] [...] computer assisted technology. [facility] PAYROLL DIRECTOR: SEE COMMENT [facility] Comment: [employer](ASCP) CT screening location: [place] [address]. PATHOLOGIST: SEE COMMENT [facility] Comment: Juarez Dorman M.D. Board Certified in Anatomic Pathology and Cytopathology (electronic signature) For questions regarding this report call Anatomic Pathology at [phone] Juarez Dorman MD, 4Th Grade Math Teacher [employer] [place], [place] COMMENT SEE COMMENT [facility] ACY [...] Health Maintenance Insurance [employer] Care Teams Bellperson Relationship Specialty Start Date End Date Chhaya Ceballos MD PCP - General Family Medicine 03/04/23 Franny Hager PA [address] [place] [address] [place] [address] PCP - Medical [place] Commercial 07/10/18 04/20/99
--- OUTSIDE RECORDS SUMMARY | 2024-12-31 07:37 | XMS_ITS | Clinical Summary ---
Author Organization [facility] Address [address] [place] [address] Care Team Providers Care Diamond Sizer Name Role Phone LinJoebarbara Mathuryn Primary Care Provider + Emile Mesa MD Unavailable Guillaume Vasquez DO Unavailable [phone] Allergies No known active allergies Medications [...] by mouth in the morning. 30 tablet 12/31/19 3:19 PM EDT 024 Active venlafaxine ER (EFFEXOR XR) 75 mg 24 hr capsule Take 2 capsules (150 mg) by mouth Daily Do not crush or chew. 60 capsule 07/27/19 3:51 PM EDT 024 Active omeprazole (PRILOSEC) 40 mg capsule Take 1 capsule by mouth once daily. 30 capsule 12/31/19 3:19 PM EDT 025 Active labetalol (TRANDATE) 100 mg tablet Take 1 tablet (100 mg) by mouth in the morning and 1 tablet (100 mg) before bedtime. 60 tablet 12/31/19 3:19 PM EDT 025 Active dextroamphetamine -amphetamine (ADDERALL) [...] is lower risk 9 02/25/2023 Data from: https://www.neighborhoodatlas.medicine.[facility].edu/. Last address used for calculation 5 [...] (Ag/Ab) Nonreactive Nonreactive 08/10/2023 11:33 AM EDT [facility] HIV-1/2 AB (Confirmatory) 08/10/2023 11:33 AM EDT [facility] Comment:Test not indicated. HIV Interpretation 08/10/2023 11:33 AM EDT [facility] Comment: No evidence of HIV-1 or HIV-2 infection. Should recent infection be suspected, repeat testing may be considered 2-3 weeks after this draw. [place] Rev. Code 3701.243(E): This information has been [...] DO LABORATORY Final Result Performing Organization Address [facility] Co de Phone Number [facility] [place] [phone], * HEPATITIS C ANTIBODY IA WITH CONFIRMATION (08/08/2023 1:07 PM EDT) [facility] Hep C Antibody IA Negative Negative 08/10/2023 1:39 PM EDT [facility] Comment:The result suggests no evidence of active infection with Hepatitis C virus. Should recent infection be suspected, repeat testing may be considered 4-6 weeks after this draw. Blood BLOOD SPECIMEN / Unknown Venipuncture / Unknown 08/08/2023 1:07 PM EDT 08/08/2023 1:07 PM EDT Guillaume R Pedro DO LABORATORY Final Result Performing Organization Address [facility] Co de Phone Number [facility] [place] [phone], from Last 3 Months or Most Recently Relevant to Health Maintenance Insurance [facility] PPO Care Teams Diamond Sizer Relationship Specialty Start Date End Date Chhaya Ceballos DO [address] [place] [address] [place] [address] PCP - General Family Medicine 07/25/22 Emile Mesa MD [address] [place] [address] Gastroenterology 07/25/22 Guillaume Vasquez DO [address] [place] [address] [place] [address] Employment And Claims Aide 07/25/22
--- OUTSIDE RECORDS SUMMARY | 2024-12-31 07:37 | XMS_ITS | Encounter Summary ---
Author Organization [facility] Address [address] [place] [address] Care Team Providers Care Mail Order Biller Name Role Phone Chhaya Ceballos MD Primary Care Provider [phone] Franny Hager Unavailable Encounter Details Date Type Department Care Team (Late st Contact Info) Description 01/25/2024 Clinisync Result Encounter [facility] External Department Unsolicited Tee Vasquez, [address] [place], [place] [id number] Social History Tobacco Use Types Packs/Day Years [...] Visit [facility] [place] [address] [place] [phone] Tee Vasquez DO [address] [place] [address] 11/01/2025 9:00 AM EDT Office Visit [facility] Ketan MOCKGYN [address] [facility] [place] [phone] Tee Vasquez DO [address] [facility] [place] [address] documented as of this encounter Procedures Procedure Name Priority Date/Time Associated Diagnosis Comments US OB BPP W NON-STRESS 01/25/2024 6:17 AM EDT documented in this encounter Results * US OB BPP W NON-STRESS (01/25/2024 6:17 AM EDT) Anatomical Region Laterality Modality Other 01/25/2024 6:17 AM EDT Narrative 01/25/2024 6:20 AM EDT The [address] [address] Ultrasound Report Signed Patient: JESSEE ALMODOVAR MR#: [id number] : 1990 Acct:[id number] Age/Sex: 33 / F ADM Date: 01/24/24 Loc: US Attending Dr: Tee Vasquez D.O. Ordering Physician: Tee Vasquez D.O. Date of Service: 01/24/24 Procedure(s): US OB BPP w non-stress Accession Number(s): [id number] cc: Tee Vasquez D.O.; Physician,Non-Staff M.DCristopher The [address] [address] Patient Name: JESSEE ALMODOVAR MRN: [id number] date: 1990 Sex: F Assigned Patient Location: US Current Patient Location: US Accession/Order Number: [id number] Exam Date: 01/24/2024 11:40 Report Date: 01/25/2024 [...] M.D. Signed By: 01/25/24619 DD/ 6 TD/TT: Termite Control Servicer: Procedure Note Radiology, Radiologist, MD - 01/25/2024 [place] [address] Ultrasound Report Signed Patient: JESSEE ALMODOVAR BMR#: [id number] : 1990Acct:[id number] Age/Sex: 33 / FADM Date: 01/24/24 Loc: US Attending Dr: Tee Vasquez D.O. Ordering Physician: Tee Vasquez D.O. Date of Service: 01/24/24 Procedure(s): US OB BPP w non-stress Accession Number(s): [id number] cc: Tee Vasquez D.O.; Physician,Non-Staff M.DCristopher The [place] [id number] Patient Name: JESSEE ALMODOVAR MRN: [id number] date: 1990 Sex: F Assigned Patient Location: US Current Patient Location: US Accession/Order Number: [id number] Exam Date: 01/24/2024 11:40 Report Date: 01/25/2024 [...] Gipson M.D. Signed By:01/25/24619 DD/ 6 TD/TT: Termite Control Servicer: us Tee Pedro DO [facility] Final Result documented in this encounter Visit Diagnoses Not on filedocumented in this encounter Care Teams Mail Order Biller Relationship Specialty Start Date End Date Chhaya Ceballos MD PCP - General Family Medicine 03/04/23 Franny Hager PA [address] [place] [address] [place] [address] PCP - Medical [place] Commercial 07/10/18 04/20/99 documented as of this encounter
--- OUTSIDE RECORDS SUMMARY | 2024-12-31 07:37 | XMS_ITS | Encounter Summary ---
Author Organization [facility] Address [address] [place] [address] Care Team Providers Care First Officer And Flight Instructor Name Role Phone Chhaya Ceballos MD Primary Care Provider [phone] Franny Hager Unavailable Encounter Details Date Type Department Care Team (Late st Contact Info) Description 01/20/2024 Abstract YAMILET JENNINGS [facility] [place] [address] Guillaume Vasquez DO [address], [place] [address] Social History Tobacco Use Types Packs/Day Years [...] Guillaume Vasquez DO [address], [facility] 11/01/2025 9:00 AM EDT Office Visit [facility] Ketan JENNINGS [address] [place] [address] Guillaume Vasquez DO [address] [facility] [place] [address] documented as of this encounter Visit Diagnoses Not on filedocumented in this encounter Care Teams First Officer And Flight Instructor Relationship Specialty Start Date End Date Chhaya Ceballos MD PCP - General Family Medicine 03/04/23 Franny Hager PA [address] [facility] [place] [address] PCP - Medical [place] Commercial 07/10/18 04/20/99 documented as of this encounter
--- OUTSIDE RECORDS SUMMARY | 2024-12-31 07:37 | XMS_ITS | Encounter Summary ---
Author Organization [facility] Address [address] [place] [address] [place] [address] Care Team Providers Care Home Supervisor Name Role Phone Chhaya Ceballos MD Primary Care Provider [phone] Franny Hager Unavailable Encounter Details Date Type Department Care Team (Late st Contact Info) Description 02/05/2024 Abstract YAMILET JENNINGS [facility] [place] [address] Guillaume Vasquez DO [address], [place] [address] Social History Tobacco Use Types Packs/Day Years [...] Office Visit YAMILET JENNINGS [address] [place] [address] Guillaume Vasquez DO [address], [facility]11 11/01/2025 9:00 AM EDT Office Visit [facility] Ketan JENNINGS [address] [facility] [address] Guillaume Vasquez DO [address] [facility] [place] [address] documented as of this encounter Visit Diagnoses Not on filedocumented in this encounter Care Teams Home Supervisor Relationship Specialty Start Date End Date Chhaya Ceballos MD PCP - General Family Medicine 03/04/23 Franny Hager PA [address] [facility] [place] [address] PCP - Medical [place] Commercial 07/10/18 04/20/99 documented as of this encounter
--- OUTSIDE RECORDS SUMMARY | 2024-12-31 07:37 | XMS_ITS | Encounter Summary ---
Author Organization [facility] Address [address] [place] [address] Care Team Providers Care Meter Calibrator Name Role Phone Chhaya Ceballos MD Primary Care Provider [phone] Franny Hager Unavailable Encounter Details Date Type Department Care Team (Late st Contact Info) Description 02/01/2024 Clinisync Result Encounter [facility] External Department Unsolicited Tee Vasquez, [address] [place], [place] [phone] Social History Tobacco Use Types Packs/Day Years [...] Visit [facility]Anil [place] [address] [place] [phone] Tee Vasquez DO [address] [place] [address] 11/01/2025 9:00 AM EDT Office Visit [facility] Ketan MOCKGYN [address] [facility] [place] [address] Tee Vasquez DO [address] [facility] [place] [address] documented as of this encounter Procedures Procedure Name Priority Date/Time Associated Diagnosis Comments US OB BPP W NON-STRESS 02/01/2024 4:24 AM EDT documented in this encounter Results * US OB BPP W NON-STRESS (02/01/2024 4:24 AM EDT) Anatomical Region Laterality Modality Other 02/01/2024 4:24 AM EDT Narrative 02/01/2024 4:27 AM EDT The [address] [address] Ultrasound Report Signed Patient: JESSEE ALMODOVAR MR#: [id number] : 1990 Acct:[id number] Age/Sex: 33 / F ADM Date: 01/31/24 Loc: US Attending Dr: Tee Vasquez D.O. Ordering Physician: Tee Vasquez D.O. Date of Service: 01/31/24 Procedure(s): US OB BPP w non-stress Accession Number(s): [id number] cc: Tee Vasquez D.O.; Physician,Non-Staff M.DCristopher The [address] [address] Patient Name: JESSEE ALMODOVAR MRN: [id number] date: 1990 Sex: F Assigned Patient Location: [facility] Current Patient Location: Accession/Order Number: [id number] Exam Date: 01/31/2024 13:06 Report Date: 02/01/2024 [...] M.D. Signed By: 02/01/24426 DD/ 3 TD/TT: Basket Braider: Procedure Note Radiology, Radiologist, MD - 02/01/2024 [place] [address] Ultrasound Report Signed Patient: JESSEE ALMODOVAR BMR#: [id number] : 1990Acct:[id number] Age/Sex: 33 / FADM Date: 01/31/24 Loc: US Attending Dr: Tee Vasquez D.O. Ordering Physician: Tee Vasquez D.O. Date of Service: 01/31/24 Procedure(s): US OB BPP w non-stress Accession Number(s): [id number] cc: Tee Vasquez D.O.; Physician,Non-Staff Asim The [place] [id number] Patient Name: JESSEE ALMODOVAR MRN: [id number] date: 1990 Sex: F Assigned Patient Location: [facility] Current Patient Location: Accession/Order Number: [id number] Exam Date: 01/31/2024 13:06 Report Date: 02/01/2024 [...] Gipson M.D. Signed By:02/01/24426 DD/ 3 TD/TT: Basket Braider: us Tee Pedro DO [facility] Final Result documented in this encounter Visit Diagnoses Not on filedocumented in this encounter Care Teams Meter Calibrator Relationship Specialty Start Date End Date Chhaya Ceballos MD PCP - General Family Medicine 03/04/23 Franny Hager PA [address] [place] [address] [place] [address] PCP - Medical [place] Commercial 07/10/18 04/20/99 documented as of this encounter
--- OUTSIDE RECORDS SUMMARY | 2024-12-31 07:37 | XMS_ITS | Encounter Summary ---
Author Organization [facility] Address [address] [place] [address] [place] [address] Care Team Providers Care Mortar Carrier Name Role Phone Chhaya Ceballos MD Primary Care Provider Franny Hager Unavailable Encounter Details Date Type Department Care Team (Late Contact Info) Description 11/21/2023 Abstract YAMILET JENN[facility] [place] [address] Guillaume Vasquez DO [address], [place] [address] Social History Tobacco Use Types Packs/Day Years [...] [address] Guillaume Vasquez DO [address], [facility]11 11/01/2025 9:00 AM EDT Office Visit [facility]S Ketan JENNINGS [address] [facility] [place] [address] Guillaume Vasquez DO [address] [facility] [place] [address] documented as of this encounter Visit Diagnoses Not on filedocumented in this encounter Care Teams Mortar Carrier Relationship Specialty Start Date End Date Chhaya Ceballos MD PCP - General Family Medicine 03/04/23 Franny Hager PA [address] [facility] [address] PCP - Medical [place] Commercial 07/10/18 04/20/99 documented as of this encounter
--- OUTSIDE RECORDS SUMMARY | 2024-12-31 07:37 | XMS_ITS | Encounter Summary ---
Author Organization [facility] Address [address] [place] [address] Care Team Providers Care Warranty Administrator Name Role Phone Chhaya Ceballos Primary Care Provider + Emile Mesa MD Unavailable Guillaume Vasquez DO Unavailable [phone] Source Comments In the event this information is protected by the Federal Confidentiality of Alcohol and Drug AbusePatient Records regulations: The Federal rules restrict any use of the information to criminally investigate or prosecute any alcohol or drug abuse patient.[facility] Encounter Details Date Type Department Care Team (Late st Contact Info) Description 09/08/2023 Patient [facility] -[address] [place] [address] Noemi Chavez RPh Medication Refill Past Due [...] risk 9 02/25/2023 Data from: https://www.neighborhoodatlas.medicine.[facility].edu/. Last address used for calculation 5 [...] on filedocumented in this encounter Care Teams Warranty Administrator Relationship Specialty Start Date End Date Chhaya Ceballos DO [address] [facility] [place] [address] PCP - General Family Medicine 07/25/22 Emile Mesa MD [address] [place] [address] [place] [address] Gastroenterology 07/25/22 Guillaume Vasquez DO [address] [place] [address] [place] [address] Willow Machine Tender 07/25/22 documented as of this encounter
--- OUTSIDE RECORDS SUMMARY | 2024-12-31 07:37 | XMS_ITS | Encounter Summary ---
Author Organization [employer] Address [id number] [address] [place] [address] Care Team Providers Care Revenue Cycle Manager Name Role Phone Mely Castillo DO Primary Care Provider [phone] Encounter Details Date Type Department Care Team (Late st Contact Info) Description 03/25/2023 Orders Only [facility] [address] [place] [address] Mei Schaefer, GREEN END WORKER-BIBLICAL STUDIES PROFESSOR [address] [place], [place] [phone] Social History Tobacco Use Types Packs/Day Years [...] documented as of this encounter Care Teams Revenue Cycle Manager Relationship Specialty Start Date End Date Mely Castillo DO [address] [place] [address] PCP - General Family Medicine 07/02/19 documented as of this encounter
--- OUTSIDE RECORDS SUMMARY | 2024-12-31 07:37 | XMS_ITS | Encounter Summary ---
Author Organization [facility] Address [address] [place] [address] Care Team Providers Care Shipping And Receiving Assistant Name Role Phone Chhaya Ceballos MD Primary Care Provider Franny Hager Unavailable Encounter Details Date Type Department Care Team (Late st Contact Info) Description 02/17/2024 Abstract YAMILET JENNINGS [facility] [place] [address] Guillaume Vasquez DO [address], [place] [address] Social History Tobacco Use Types Packs/Day Years [...] Office Visit YAMILET JENNINGS [address] [place] [address] Guillaume Vasquez DO [address], [facility]11 11/01/2025 9:00 AM EDT Office Visit [facility]S Ketan JENNINGS [address] [facility] [place] [address] Guillaume Vasquez DO [address] [facility] [place] [address] documented as of this encounter Visit Diagnoses Not on filedocumented in this encounter Care Teams Shipping And Receiving Assistant Relationship Specialty Start Date End Date Chhaya Ceballos MD PCP - General Family Medicine 03/04/23 Franny Hager PA [address] [facility] [place] [address] PCP - Medical [place] Commercial 07/10/18 04/20/99 documented as of this encounter
--- OUTSIDE RECORDS SUMMARY | 2024-12-31 07:37 | XMS_ITS | Encounter Summary ---
Author Organization [facility] Address [address] [place] [address] Care Team Providers Care Fast Food Sales Assistant Name Role Phone Chhaya Ceballos MD Primary Care Provider [phone] Franny Hager Unavailable Encounter Details Date Type Department Care Team (Late st Contact Info) Description 12/22/2024 Clinisync Result Encounter NOMS External Department Unsolicited Guillaume Vasquez, DO [address] [place], [place] [phone] Social History Tobacco Use Types Packs/Day Years [...] 10:20 AM EDT Office Visit NOMAnil [place]ves OBGYN [address] [place] [phone] Guillaume Vasquez DO [address] [place] [address] 11/01/2025 9:00 AM EDT Office Visit [facility]S Ketan OBGYN [address] [facility] [place] [address] Guillaume Vasquez DO [address] [facility] [place] [address] documented as of this encounter Procedures Procedure Name Priority Date/Time Associated Diagnosis Comments ECG 12-LEAD 12/22/2024 7:43 AM EDT documented in this encounter Results * ECG 12-LEAD (12/22/2024 7:43 AM EDT) Anatomical Region Laterality Modality Other 12/22/2024 7:43 AM EDT Narrative 12/22/2024 1:59 PM EDT The [address] [address] Electrocardiograph Report Signed Patient: STACIE ALMODOVAR MR#: [id number] : 1990 Acct:[id number] Age/Sex: 34 / F ADM Date: 12/22/24 Loc: PST Attending Dr: Guillaume Vasquez D.O. Ordering Physician: Guillaume Vasquez D.O. Date of Service: 12/22/24 Procedure(s): ECG 12 lead Accession Number(s): [id number] cc: [facility] Test Date: 2024-12-22 Pat Name: STACIE ALMODOVAR Department: Room: - Gender: Female Streetcar Conductor: : 1990 Requested By: GUILLAUME VASQUEZ Order Number: [id number] Reading MD: BRE CHIU Measurements Intervals [place] Rate: 82 P: 16 KS: 104 QRS: 52 QRSD: 77 T: 37 QT: 344 QTc: 403 Interpretive Statements SINUS RHYTHM WITH SHORT [place] INTERVAL No previous ECG available for comparison Electronically Signed On 12-22-2024 13:59:05 EDT by BRE CHIU Dictated By: Bre Chiu M.D. Signed By: 12/22/24 1359 DD/ 0743 TD/TT: Offset Plate Preparation Supervisor: Procedure Note Radiology, Radiologist, - 12/22/[address] [address] Electrocardiograph Report Signed Patient: STACIE ALMODOVAR BMR#: [id number] : 1990Acct:[id number] Age/Sex: 34 / FADM Date: 12/22/24 Loc: PST Attending Dr: Guillaume Vasquez D.O. Ordering Physician: Guillaume Vasquez D.O. 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 Signed By:12/22/24 1359 DD/ 0743 TD/TT: Offset Plate Preparation Supervisor: us Guillaume Vasquez DO [facility] Final Result documented in this encounter Visit Diagnoses Not on filedocumented in this encounter Care Teams Fast Food Sales Assistant Relationship Specialty Start Date End Date Chhaya Ceballos MD PCP - General Family Medicine 03/04/23 Franny Hager PA [address] [place] [address] [place] [address] PCP - Medical [place] Commercial 07/10/18 04/20/99 documented as of this encounter
--- OUTSIDE RECORDS SUMMARY | 2024-12-31 07:37 | XMS_ITS | Encounter Summary ---
Author Organization [facility] Address [address] [place] [address] Care Team Providers Care Scrubber Machine Tender Name Role Phone Chhaya Ceballos MD Primary Care Provider [phone] Franny Hager Unavailable Encounter Details Date Type Department Care Team (Late st Contact Info) Description 12/23/2024 Abstract YAMILET JENNINGS [address] [facility] [place] [address] Vilma Case MA Social History Tobacco Use Types Packs/Day Years [...] AM EDT Office Visit YAMILET JENNINGS [address] [place] [address] Guillaume Vasquez DO [address], [place] [phone] 11/01/2025 9:00 AM EDT Office Visit YAMILET TREADWELLN [address] [place] [address] Guillaume Vasquez DO [address] [place] [address] documented as of this encounter Visit Diagnoses Not on filedocumented in this encounter Care Teams Scrubber Machine Tender Relationship Specialty Start Date End Date Chhaya Ceballos MD PCP - General Family Medicine 03/04/23 Franny Hager PA [address] [place] [address] PCP - Medical [place] Commercial 07/10/18 04/20/99 documented as of this encounter
--- OUTSIDE RECORDS SUMMARY | 2024-12-31 07:37 | XMS_ITS | Encounter Summary ---
Author Organization [facility] Address [address] [place] [address] Care Team Providers Care Vehicle Cost Engineer Name Role Phone Chhaya Ceballos MD Primary Care Provider [phone] Franny Hager Unavailable Encounter Details Date Type Department Care Team (Late Contact Info) Description 11/21/2023 Abstract YAMILET JENNINGS [facility] [place] [address] Guillaume Vasquez DO [address], [place] [address] Social History Tobacco Use Types Packs/Day Years [...] [address] Guillaume Vasquez DO [address], [facility] 11/01/2025 9:00 AM EDT Office Visit NOMS Ketan JENNINGS [address] [facility] [place] [address] Guillaume Vasquez DO [address] [facility] [place] [address] documented as of this encounter Visit Diagnoses Not on filedocumented in this encounter Care Teams Vehicle Cost Engineer Relationship Specialty Start Date End Date Chhaya Ceballos MD PCP - General Family Medicine 03/04/23 Franny Hager PA [address] [facility] [place] [address] PCP - Medical [place] Commercial 07/10/18 04/20/99 documented as of this encounter
--- OUTSIDE RECORDS SUMMARY | 2024-12-31 07:37 | XMS_ITS | Encounter Summary ---
Author Organization [facility] Address [address] [place] [address] Care Team Providers Care Service Administrator Name Role Phone Chhaya Ceballos Primary Care Provider + Emile Mesa MD Unavailable Guillaume Vasquez DO Unavailable [phone] Source Comments In the event this information is protected by the Federal Confidentiality of Alcohol and Drug AbusePatient Records regulations: The Federal rules restrict any use of the information to criminally investigate or prosecute any alcohol or drug abuse patient.[facility] Encounter Details Date Type Department Care Team (Late st Contact Info) Description 12/22/2023 Patient [facility] -[address] [place] [address] Noemi Chavez RPh Medication Refill(s) Past Due [...] risk 9 02/25/2023 Data from: https://www.neighborhoodatlas.medicine.[facility].edu/. Last address used for calculation 5 [...] on filedocumented in this encounter Care Teams Service Administrator Relationship Specialty Start Date End Date Chhaya Ceballos DO [address] [place] [address] PCP - General Family Medicine 07/25/22 Emile Mesa MD [address] [place] [address] [place] [address] Gastroenterology 07/25/22 Guillaume Vasquez DO [address] [place] [address] [place] [address] Button Buttonhole Marker 07/25/22 documented as of this encounter
--- OUTSIDE RECORDS SUMMARY | 2024-12-31 07:37 | XMS_ITS | Encounter Summary ---
Author Organization [facility] Address [address] [place] [address] Care Team Providers Care Master Cosmetologist Name Role Phone Chhaya Ceballos Primary Care Provider + Emile Mesa MD Unavailable Guillaume Vasquez DO Unavailable [phone] Source Comments In the event this information is protected by the Federal Confidentiality of Alcohol and Drug AbusePatient Records regulations: The Federal rules restrict any use of the information to criminally investigate or prosecute any alcohol or drug abuse patient.[facility] Encounter Details Date Type Department Care Team (Late st Contact Info) Description 03/28/2023 [place] [address] Provider, [facility] MRI Screening Questionnaire Completion Required [...] is lower risk 9 02/25/2023 Data from: https://www.neighborhoodatlas.[facility]/. Last address used for calculation 5 [...] on filedocumented in this encounter Care Teams Master Cosmetologist Relationship Specialty Start Date End Date Chhaya Ceballos DO [address] [place] [address] PCP - General Family Medicine 07/25/22 Emile Mesa MD [address] [place] [address] Gastroenterology 07/25/22 Guillaume Vasquez DO [address] [place] [address] [place] [address] Financial Aid Administrator 07/25/22 documented as of this encounter
--- OUTSIDE RECORDS SUMMARY | 2024-12-31 07:37 | XMS_ITS | Encounter Summary ---
Author Organization [facility] Address [address] [place] [address] Care Team Providers Care Shoeblack Name Role Phone Chhaya Ceballos MD Primary Care Provider Franny Hager Unavailable Encounter Details Date Type Department Care Team (Late st Contact Info) Description 02/22/2024 Clinisync Result Encounter [facility]S External Department Unsolicited Tee Vasquez, [address] [place], [place] [phone] Social History Tobacco Use Types Packs/Day Years [...] Visit [facility] [place] [facility] [address] [place] [phone] Tee Vasquez DO [address] [place] [address] 11/01/2025 9:00 AM EDT Office Visit [facility] Ketan MOCKGYN [address] [place] [address] Tee Vasquez DO [address] [address] documented as of this encounter Procedures Procedure Name Priority Date/Time Associated Diagnosis Comments US OB BPP W NON-STRESS 02/22/2024 8:40 AM EST documented in this encounter Results * US OB BPP W NON-STRESS (02/22/2024 8:40 AM EST) Anatomical Region Laterality Modality Other 02/22/2024 8:40 AM EST Narrative 02/22/2024 8:42 AM EST The [address] [address] Ultrasound Report Signed Patient: JESSEE ALMODOVAR MR#: [id number] : 1990 Acct:[id number] Age/Sex: 34 / F ADM Date: 02/21/24 Loc: FBCO Attending Dr: Tee Vasquez D.O. Ordering Physician: Tee Vasquez D.O. Date of Service: 02/21/24 Procedure(s): US OB BPP w non-stress Accession Number(s): [id number] cc: Tee Vasquez D.O.; Physician,Non-Staff M.DCristopher The [address] [address] Patient Name: JESSEE ALMODOVAR MRN: [id number] date: 1990 Sex: F Assigned Patient Location: [facility] Current Patient Location: Accession/Order Number: [id number] Exam Date: 02/21/2024 13:06 Report Date: 02/22/2024 [...] M.D. Signed By: 02/22/24841 DD/ 9 TD/TT: Talk Show Host: Procedure Note Radiology, Radiologist, MD - 02/22/2024 [place] [address] Ultrasound Report Signed Patient: JESSEE ALMODOVAR BMR#: [id number] : 1990Acct:[id number] Age/Sex: 34 / FADM Date: 02/21/24 Loc: FBCO Attending Dr: Tee Vasquez D.O. Ordering Physician: Tee Vasquez D.O. Date of Service: 02/21/24 Procedure(s): US OB BPP w non-stress Accession Number(s): [id number] cc: Tee Vasquez D.O.; Physician,Non-Staff Asim The [place] [address] Patient Name: JESSEE ALMODOVAR MRN: [id number] date: 1990 Sex: F Assigned Patient Location: [facility] Current Patient Location: Accession/Order Number: [id number] Exam Date: 02/21/2024 13:06 Report Date: 02/22/2024 [...] Gipson M.D. Signed By:02/22/24841 DD/ 9 TD/TT: Talk Show Host: us Tee Pedro DO [facility] Final Result documented in this encounter Visit Diagnoses Not on filedocumented in this encounter Care Teams Shoeblack Relationship Specialty Start Date End Date Chhaya Ceballos MD PCP - General Family Medicine 03/04/23 Franny Hager PA [address] [place] [address] [place] [address] PCP - Medical [place] [employer] 07/10/18 04/20/99 documented as of this encounter
--- OUTSIDE RECORDS SUMMARY | 2024-12-31 07:37 | XMS_ITS | Encounter Summary ---
Author Organization [facility] Address [address] [place] [address] Care Team Providers Care Data Center Engineer Name Role Phone Chhaya Ceballos MD Primary Care Provider [phone] Franny Hager Unavailable Encounter Details Date Type Department Care Team (Late st Contact Info) Description 02/09/2024 Clinisync Result Encounter [facility]OMS External Department Unsolicited Tee Vasquez, [address] [place], [place] [phone] Social History Tobacco Use Types Packs/Day Years [...] Visit [facility] [place] [facility] [address] [place] [phone] Tee Vasquez DO [address] [place] [address] 11/01/2025 9:00 AM EDT Office Visit [facility] Ketan MOCKGYMarge [address] [facility] [place] [address] Tee Vasquez DO [address] [facility] [place] [address] documented as of this encounter Procedures Procedure Name Priority Date/Time Associated Diagnosis Comments US OB BPP W NON-STRESS 02/09/2024 7:33 AM EDT documented in this encounter Results * US OB BPP W NON-STRESS (02/09/2024 7:33 AM EDT) Anatomical Region Laterality Modality Other 02/09/2024 7:33 AM EDT Narrative 02/09/2024 7:36 AM EDT The [address] [address] Ultrasound Report Signed Patient: JESSEE ALMODOVAR MR#: [id number] : 1990 Acct:[id number] Age/Sex: 33 / F ADM Date: 02/07/24 Loc: US Attending Dr: Tee Vasquez D.O. Ordering Physician: Tee Vasquez D.O. Date of Service: 02/07/24 Procedure(s): US OB BPP w non-stress Accession Number(s): [id number] cc: Tee Vasquez D.O.; Physician,Non-Staff M.DCristopher The [address] [address] Patient Name: JESSEE ALMODOVAR MRN: [id number] date: 1990 Sex: F Assigned Patient Location: US Current Patient Location: US Accession/Order Number: [id number] Exam Date: 2024 13:01 Report Date: 02/09/2024 [...] M.D. Signed By: 02/09/24735 DD/ 2 TD/TT: Global Engineering Manager: Procedure Note Radiology, Radiologist, - 02/09/2024 [place] [address] Ultrasound Report Signed Patient: JESSEE ALMODOVAR BMR#: [id number] : 1990Acct:[id number] Age/Sex: 33 / FADM Date: 02/07/24 Loc: US Attending Dr: Tee Vasquez D.O. Ordering Physician: Tee Vasquez D.O. Date of Service: 02/07/24 Procedure(s): US OB BPP w non-stress Accession Number(s): [id number] cc: Tee Vasquez D.O.; Physician,Non-Staff MUriah The [place] [address] Patient Name: JESSEE ALMODOVAR MRN: [id number] date: 1990 Sex: F Assigned Patient Location: US Current Patient Location: US Accession/Order Number: [id number] Exam Date: 2024 13:01 Report Date: 02/09/2024 [...] Stewart M.D. Signed By:02/09/24735 DD/ 2 TD/TT: Global Engineering Manager: us Tee Pedro DO [facility] Final Result documented in this encounter Visit Diagnoses Not on filedocumented in this encounter Care Teams Data Center Engineer Relationship Specialty Start Date End Date Chhaya Ceballos MD PCP - General Family Medicine 03/04/23 Franny Hager PA [address] [place] [address] [place] [address] PCP - Medical [place] [employer] 07/10/18 04/20/99 documented as of this encounter
--- OUTSIDE RECORDS SUMMARY | 2024-12-31 07:37 | XMS_ITS | Encounter Summary ---
Author Organization [facility] Address [address] [place] [address] Care Team Providers Care Measurement Advisor Name Role Phone Chhaya Ceballos MD Primary Care Provider [phone] Franny Hager Unavailable Encounter Details Date Type Department Care Team (Late st Contact Info) Description 01/18/2024 Clinisync Result Encounter [facility]OMS External Department Unsolicited Tee Vasquez, [address] [place], [place] [phone] Social History Tobacco Use Types Packs/Day Years [...] Visit [facility] [place] [facility] [address] [place] [phone] Tee Vasquez DO [address] [place] [address] 11/01/2025 9:00 AM EDT Office Visit [facility] Ketan OBGYN [address] [facility] [place] [phone] Tee Vasquez DO [address] [facility] [place] [address] documented as of this encounter Procedures Procedure Name Priority Date/Time Associated Diagnosis Comments US OB GROWTH 01/18/2024 6:55 AM EDT documented in this encounter Results * US OB GROWTH (01/18/2024 6:55 AM EDT) Anatomical Region Laterality Modality Other 01/18/2024 6:55 AM EDT Narrative 01/18/2024 6:57 AM EDT The [address] [address] Ultrasound Report Signed Patient: JESSEE ALMODOVAR MR#: [id number] : 1990 Acct:[id number] Age/Sex: 33 / F ADM Date: 01/17/24 Loc: US Attending Dr: Tee Vasquez D.O. Ordering Physician: Tee Vasquez D.O. Date of Service: 01/17/24 Procedure(s): US OB growth Accession Number(s): [id number] cc: Tee Vasquez D.O.; Physician,Non-Staff M.DCristopher The [address] [address] Patient Name: JESSEE ALMODOVAR MRN: [id number] date: 1990 Sex: F Assigned Patient Location: US Current Patient Location: US Accession/Order Number: [id number] Exam Date: 01/17/2024 13:30 Report Date: 01/18/2024 [...] Gipson M.D. Signed By: 01/18/2457 DD/ TD/TT: Research Recruiter: Procedure Note Radiology, Radiologist, MD - 01/18/2024 [place] [address] Ultrasound Report Signed Patient: JESSEE ALMODOVAR BMR#: [id number] : 1990Acct:[id number] Age/Sex: 33 / FADM Date: 01/17/24 Loc: US Attending Dr: Tee Vasquez D.O. Ordering Physician: Tee Vasquez D.O. Date of Service: 01/17/24 Procedure(s): US OB growth Accession Number(s): [id number] cc: Tee Vasquez D.O.; Physician,Non-Staff Asim The [address] [address] Patient Name: JESSEE ALMODOVAR MRN: [id number] date: 1990 Sex: F Assigned Patient Location: US Current Patient Location: US Accession/Order Number: [id number] Exam Date: 01/17/2024 13:30 Report Date: 01/18/2024 [...] Anand Gipson M.D. Signed By:01/18/2457 DD/ TD/TT: Research Recruiter: us Tee Vasquez DO [facility] Final Result documented in this encounter Visit Diagnoses Not on filedocumented in this encounter Care Teams Measurement Advisor Relationship Specialty Start Date End Date Chhaya Ceballos MD PCP - General Family Medicine 03/04/23 Franny Hager PA [address] [place] [address] [place] [address] PCP - Medical [place] [employer] 07/10/18 04/20/99 documented as of this encounter
--- OUTSIDE RECORDS SUMMARY | 2024-12-31 07:37 | XMS_ITS | Encounter Summary ---
Author Organization [facility] Address [address] [place] [address] Care Team Providers Care Heat Treater Apprentice Name Role Phone Chhaya Ceballos MD Primary Care Provider Franny Hager Unavailable Encounter Details Date Type Department Care Team (Late Contact Info) Description 10/27/2023 Abstract YAMILET JENNINGS [facility] [place] [address] Guillaume Vasquez DO [address], [place] [address] Social History Tobacco Use Types Packs/Day Years [...] Office Visit YAMILET JENNINGS [address] [place] [address] Guillaume Vasquez DO [address], [facility] 11/01/2025 9:00 AM EDT Office Visit [facility] Ketan JENNINGS [address] [facility] [place] [address] Guillaume Vasquez DO [address] [facility] [place] [address] documented as of this encounter Visit Diagnoses Not on filedocumented in this encounter Care Teams Heat Treater Apprentice Relationship Specialty Start Date End Date Chhaya Ceballos MD PCP - General Family Medicine 03/04/23 Franny Hager PA [address] [facility] [place] [address] PCP - Medical [place] [employer] 07/10/18 04/20/99 documented as of this encounter
--- OUTSIDE RECORDS SUMMARY | 2024-12-31 07:37 | XMS_ITS | Encounter Summary ---
Author Organization [facility] Address [address] [place] [address] Care Team Providers Care Medical Doctor Nuclear Medicine Name Role Phone Chhaya Ceballos MD Primary Care Provider [phone] Franny Hager Unavailable Encounter Details Date Type Department Care Team (Late st Contact Info) Description 01/18/2024 Clinisync Result Encounter NOMS External Department Unsolicited Tee Vasquez, [address] [place], [place] [phone] Social History Tobacco Use Types Packs/Day Years [...] [facility] [place] [facility] [address] [place] [phone] Tee Vasquez DO [address] [place] [address] 11/01/2025 9:00 AM EDT Office Visit [facility] Ketan MOCKGYMarge [address] [facility] [facility] [place] [phone] Tee Vasquez DO [address] [facility] [place] [address] documented as of this encounter Procedures Procedure Name Priority Date/Time Associated Diagnosis Comments US OB BPP W NON-STRESS 01/18/2024 6:52 AM EDT documented in this encounter Results * US OB BPP W NON-STRESS (01/18/2024 6:52 AM EDT) Anatomical Region Laterality Modality Other 01/18/2024 6:52 AM EDT Narrative 01/18/2024 6:55 AM EDT The [place] [id number] Ultrasound Report Signed Patient: JESSEE ALMODOVAR MR#: [id number] : 1990 Acct:[id number] Age/Sex: 33 / F ADM Date: 01/17/24 Loc: US Attending Dr: Tee Vasquez D.O. Ordering Physician: Tee Vasquez D.O. Date of Service: 01/17/24 Procedure(s): US OB BPP w non-stress Accession Number(s): [id number] cc: Tee Vasquez D.O.; Physician,Non-Staff M.DCristopher The [address] [address] Patient Name: JESSEE ALMODOVAR MRN: [id number] date: 1990 Sex: F Assigned Patient Location: US Current Patient Location: US Accession/Order Number: [id number] Exam Date: 01/17/2024 13:30 Report Date: 01/18/2024 [...] Gipson M.D. Signed By: 01/18/2455 DD/ TD/TT: Imaging Account Manager: Procedure Note Radiology, Radiologist, MD - 01/18/2024 [place] [address] Ultrasound Report Signed Patient: JESSEE ALMODOVAR BMR#: [id number] : 1990Acct:[id number] Age/Sex: 33 / FADM Date: 01/17/24 Loc: US Attending Dr: Tee Vasquez D.O. Ordering Physician: Tee Vasquez D.O. Date of Service: 01/17/24 Procedure(s): US OB BPP w non-stress Accession Number(s): [id number] cc: Tee Vasquez D.O.; Physician,Non-Staff Asim The [place] [address] Patient Name: JESSEE ALMODOVAR MRN: [id number] date: 1990 Sex: F Assigned Patient Location: US Current Patient Location: US Accession/Order Number: [id number] Exam Date: 01/17/2024 13:30 Report Date: 01/18/2024 [...] Gipson M.D. Signed By:01/18/2455 DD/ 1 TD/TT: Imaging Account Manager: us Tee Pedro DO [facility] Final Result documented in this encounter Visit Diagnoses Not on filedocumented in this encounter Care Teams Medical Doctor Nuclear Medicine Relationship Specialty Start Date End Date Chhaya Ceballos MD PCP - General Family Medicine 03/04/23 Franny Hager PA [address] [place] [address] [place] [address] PCP - Medical [place] [employer] 07/10/18 04/20/99 documented as of this encounter
--- OUTSIDE RECORDS SUMMARY | 2024-12-31 07:37 | XMS_ITS | Patient Health Record ---
Author Organization [employer] [facility] Address [address] [place] [address] Care Team Providers Care Creative Services Coordinator Name Role Phone Alondra Guevara Primary Care [...] Status W/U Status Risk Notes Problem Anxiety (57951228) Anxiety (F41.9) Active confirmed Problem Insomnia (283661554) Insomnia, unspecified type (G47.00) Active confirmed Problem Attention deficit hyperactivity disorder (895156272) ADHD (attention deficit hyperactivity disorder), combined type (F90.2) Active confirmed Problem Moderate recurrent major depression (33153746) Moderate episode of recurrent major depressive disorder (F33.1) Active confirmed Problem Inattention (19205950) Inattention (R41.840) Active confirmed Vital Signs Heart [...] morning Encounters Encounter Location Date Provider Diagnosis [facility] [address] [place] [address] 09/01/2024 Alondra Paola [facility] [address] [place] [address] 10/05/2024 Alondra Paola ADHD (attention defi cit hyperactivity disorder), combined type F90.2 [facility] [address] [place] [address] 10/18/2024 Alondra Paola [facility] [address] [place] [address] 11/09/2024 Alondra Paola ADHD (attention defi cit hyperactivity disorder), combined type F90.2 [address] [place] [address] 07/28/2024 Alondra Paola ADHD (attention defi cit hyperactivity disorder), combined type F90.2 and Moderate episode of recurrent major depressive disorder F33.[address] [address] 08/18/2024 Alondra Paola ADHD (attention defi cit hyperactivity disorder), combined type F90.[address] [address] 09/08/2024 Alondra Paola ADHD (attention defi cit hyperactivity disorder), combined type F90.2 [address] [place] [address] 11/12/2024 Alondra Paola ADHD (attention defi cit hyperactivity disorder), combined type F90.2 [address] [place] [address] 12/14/2024 Alondra Paola ADHD (attention defi cit [...] Quezada Salome rutherford, 01/11/2025 09:00:00 AM, [address] [place], [address], Insurance Providers Payer Name Payer Address Payer Phone Subscriber Number Group Number Insured Name Patient Relationship to Insured Coverage Start Date Coverage End Date [facility] [address] [place] [address] [id number] JESSEE MASTERSON Self - patient is the insured 2 Medical (General) History Medical History History ICD Code Anxiety Depression Hypothyroidism ADHD-combined type precancerous cells on last pap Surgical History Surgery Date(Month/Year) Ear tubes Hospitalization History Reason Date(Month/Year) Child
--- OUTSIDE RECORDS SUMMARY | 2024-12-31 07:37 | XMS_ITS | Encounter Summary ---
Author Organization [facility] Address [address] [place] [address] Care Team Providers Care Chocolate Dipper Name Role Phone Chhaya Ceballos MD Primary Care Provider [phone] Franny Hager Unavailable Encounter Details Date Type Department Care Team (Late st Contact Info) Description 02/16/2024 Clinisync Result Encounter NOMS External Department Unsolicited Tee Vasquez, [address] [place], [place] [phone] Social History Tobacco Use Types Packs/Day Years [...] [facility]il [place] [facility] [address] [place] [phone] Tee Vasquez DO [address] [place] [address] 11/01/2025 9:00 AM EDT Office Visit [facility]S Ketan MOCKGYN [address] [facility] [place] [place] [address] Tee Vasquez DO [address] [facility] [place] [address] documented as of this encounter Procedures Procedure Name Priority Date/Time Associated Diagnosis Comments US OB BPP W NON-STRESS 02/16/2024 4:32 AM EDT documented in this encounter Results * US OB BPP W NON-STRESS (02/16/2024 4:32 AM EDT) Anatomical Region Laterality Modality Other 02/16/2024 4:32 AM EDT Narrative 02/16/2024 4:35 AM EDT The [address] [address] Ultrasound Report Signed Patient: JESSEE ALMODOVAR MR#: [id number] : 1990 Acct:[id number] Age/Sex: 34 / F ADM Date: 02/14/24 Loc: US Attending Dr: Tee Vasquez D.O. Ordering Physician: Tee Vasquez D.O. Date of Service: 02/14/24 Procedure(s): US OB BPP w non-stress Accession Number(s): [id number] cc: Tee Vasquez D.O.; Physician,Non-Staff M.DCristopher The [address] [address] Patient Name: JESSEE ALMODOVAR MRN: [id number] date: 1990 Sex: F Assigned Patient Location: [facility] Current Patient Location: US Accession/Order Number: [id number] Exam Date: 02/14/2024 13:15 Report Date: 02/16/2024 [...] M.D. Signed By: 02/16/24434 DD/ 1 TD/TT: Bushel Girl: Procedure Note Radiology, Radiologist, MD - 02/16/2024 [place] [address] Ultrasound Report Signed Patient: JESSEE ALMODOVAR BMR#: [id number] : 1990Acct:[id number] Age/Sex: 34 / FADM Date: 02/14/24 Loc: US Attending Dr: Tee Vasquez D.O. Ordering Physician: Tee Vasquez D.O. Date of Service: 02/14/24 Procedure(s): US OB BPP w non-stress Accession Number(s): [id number] cc: Tee Vasquez D.O.; Physician,Non-Staff Asim The [address] [address] Patient Name: JESSEE ALMODOVAR MRN: [id number] date: 1990 Sex: F Assigned Patient Location: [facility] Current Patient Location: US Accession/Order Number: [id number] Exam Date: 02/14/2024 13:15 Report Date: 02/16/2024 [...] Gipson M.D. Signed By:02/16/24434 DD/ 1 TD/TT: Bushel Girl: us Tee Pedro DO [facility] Final Result documented in this encounter Visit Diagnoses Not on filedocumented in this encounter Care Teams Chocolate Dipper Relationship Specialty Start Date End Date Chhaya Ceballos MD PCP - General Family Medicine 03/04/23 Franny Hager PA [address] [place] [address] [place] [address] PCP - Medical [place] Commercial 07/10/18 04/20/99 documented as of this encounter
--- OUTSIDE RECORDS SUMMARY | 2024-12-31 07:37 | XMS_ITS | Encounter Summary ---
Author Organization [facility] Address [facility] [place] [address] Care Team Providers Care Rework Machine Operator Name Role Phone Chhaya Ceballos Primary Care Provider + Emile Mesa MD Unavailable Guillaume Vasquez DO Unavailable [phone] Source Comments In the event this information is protected by the Federal Confidentiality of Alcohol and Drug AbusePatient Records regulations: The Federal rules restrict any use of the information to criminally investigate or prosecute any alcohol or drug abuse patient.[facility] Encounter Details Date Type Department Care Team (Late st Contact Info) Description 12/02/[address] [facility] -[address] [place] [address] Provider, Ccf Medication Refill Past Due Social [...] N ot on file 05/14/2022 Data from: https://www.neighborhoodatlas.[facility]/. Last address used for calculation 5 [...] on filedocumented in this encounter Care Teams Rework Machine Operator Relationship Specialty Start Date End Date Chhaya Ceballos DO [address] [place] [address] PCP - General Family Medicine 07/25/22 Emile Mesa MD [address] [place] [address] Gastroenterology 07/25/22 Guillaume Vasquez DO [address] [place] [address] [place] [address] Corporate Strategy Analyst 07/25/22 documented as of this encounter
--- OUTSIDE RECORDS SUMMARY | 2024-12-31 07:37 | XMS_ITS | Encounter Summary ---
Author Organization [facility] Address [address] [place] [address] Care Team Providers Care Security Lead Name Role Phone Chhaya Ceballos MD Primary Care Provider Franny Hager Unavailable Encounter Details Date Type Department Care Team (Late Contact Info) Description 12/10/2023 Abstract YAMILET JENNINGS [facility] [place] [address] Guillaume Vasquez DO [address], [facility] Social History Tobacco Use Types Packs/Day Years [...] [address] Guillaume Vasquez DO [address], [facility] 11/01/2025 9:00 AM EDT Office Visit [facility] Ketan JENNINGS [address] [facility] [address] [place] [address] Guillaume Vasquez DO [address] [facility] [place] [address] documented as of this encounter Visit Diagnoses Not on filedocumented in this encounter Care Teams Security Lead Relationship Specialty Start Date End Date Chhaya Ceballos MD PCP - General Family Medicine 03/04/23 Franny Hager PA [address] [facility] [place] [address] PCP - Medical [place] [employer] 07/10/18 04/20/99 documented as of this encounter
--- OUTSIDE RECORDS SUMMARY | 2024-12-31 07:37 | XMS_ITS | Encounter Summary ---
Author Organization [facility] Address [address] [place] [address] Care Team Providers Care Ingredient Handler Name Role Phone Chhaya Ceballos MD Primary Care Provider [phone] Franny Hager Unavailable Encounter Details Date Type Department Care Team (Late st Contact Info) Description 02/16/2024 Clinisync Result Encounter [facility] External Department Unsolicited Tee Vasquez, [address] [place], [place] [id number] Social History Tobacco Use Types Packs/Day Years [...] Visit NOMAnil [place] [facility]BGY[facility] [address] [place] [phone] Tee Vasquez DO [address] [place] [address] 11/01/2025 9:00 AM EDT Office Visit [facility] Ketan OBGYN [address] [facility] [place] [address] Tee Vasquez DO [address] [facility] [place] [address] documented as of this encounter Procedures Procedure Name Priority Date/Time Associated Diagnosis Comments US OB GROWTH 02/16/2024 4:34 AM EDT documented in this encounter Results * US OB GROWTH (02/16/2024 4:34 AM EDT) Anatomical Region Laterality Modality Other 02/16/2024 4:34 AM EDT Narrative 02/16/2024 4:37 AM EDT The [address] [address] Ultrasound Report Signed Patient: JESSEE ALMODOVAR MR#: [id number] : 1990 Acct:[id number] Age/Sex: 34 / F ADM Date: 02/14/24 Loc: US Attending Dr: Tee Vasquez D.O. Ordering Physician: Tee Vasquez D.O. Date of Service: 02/14/24 Procedure(s): US OB growth Accession Number(s): [id number] cc: Tee Vasquez D.O.; Physician,Non-Staff M.DCristopher The [address] [address] Patient Name: JESSEE ALMODOVAR MRN: [id number] date: 1990 Sex: F Assigned Patient Location: US Current Patient Location: US Accession/Order Number: [id number] Exam Date: 02/14/2024 13:15 Report Date: 02/16/2024 [...] M.D. Signed By: 02/16/24436 DD/ 3 TD/TT: Consumer Affairs Specialist: Procedure Note Radiology, Radiologist, MD - 02/16/2024 [place] [address] Ultrasound Report Signed Patient: JESSEE ALMODOVAR BMR#: [id number] : 1990Acct:[id number] Age/Sex: 34 / FADM Date: 02/14/24 Loc: US Attending Dr: Tee Vasquez D.O. Ordering Physician: Tee Vasquez D.O. Date of Service: 02/14/24 Procedure(s): US OB growth Accession Number(s): [id number] cc: Tee Vasquez D.O.; Physician,Non-Staff Asim The [address] [address] Patient Name: JESSEE ALMODOVAR MRN: [id number] date: 1990 Sex: F Assigned Patient Location: US Current Patient Location: US Accession/Order Number: [id number] Exam Date: 02/14/2024 13:15 Report Date: 02/16/2024 [...] Gipson M.D. Signed By:02/16/24436 DD/ 3 TD/TT: Consumer Affairs Specialist: us Tee Vasquez DO [facility] Final Result documented in this encounter Visit Diagnoses Not on filedocumented in this encounter Care Teams Ingredient Handler Relationship Specialty Start Date End Date Chhaya Ceballos MD PCP - General Family Medicine 03/04/23 Franny Hager PA [address] [place] [address] [place] [address] PCP - Medical [place] [employer] 07/10/18 04/20/99 documented as of this encounter
--- OUTSIDE RECORDS SUMMARY | 2024-12-31 07:37 | XMS_ITS | Encounter Summary ---
Author Organization [facility] Address [address] [place] [address] Care Team Providers Care Metal Flooring Installer Name Role Phone Chhaya Ceballos MD Primary Care Provider Franny Hager Unavailable Encounter Details Date Type Department Care Team (Late Contact Info) Description 08/11/2023 Abstract YAMILET JENNINGS [address] [place] [address] Lisa Montes LPN [address] [employer] [facility] Adriana [facility]11 Social History Tobacco Use Types Packs/Day Years [...] 10:20 AM EDT Office Visit YAMILET JENNINGS [facility] [place] [address] Guillaume Vasquez DO [address] [place] [address] 11/01/2025 9:00 AM EDT Office Visit [facility] Ketan JENNINGS [address] [facility] [address] Guillaume Vasquez DO [address] [facility] [place] [address] documented as of this encounter Visit Diagnoses Not on filedocumented in this encounter Care Teams Metal Flooring Installer Relationship Specialty Start Date End Date Chhaya Ceballos MD PCP - General Family Medicine 03/04/23 Franny Hager PA [address] [facility] [place] [address] PCP - Medical [place] [employer] 07/10/18 04/20/99 documented as of this encounter
--- OUTSIDE RECORDS SUMMARY | 2024-12-31 07:37 | XMS_ITS | Encounter Summary ---
Author Organization [facility] Address [address] [place] [address] Care Team Providers Care End Finder Forming Department Name Role Phone Chhaya Ceballos MD Primary Care Provider Franny Hager Unavailable Encounter Details Date Type Department Care Team (Late st Contact Info) Description 02/06/2024 Abstract YAMILET JENNINGS [facility] [place] [address] Guillaume Vasquez DO [address], [place] [address] Social History Tobacco Use Types Packs/Day Years [...] Office Visit YAMILET JENNINGS [address] [place] [address] Guillaume Vasquez DO [address], [facility] 11/01/2025 9:00 AM EDT Office Visit [facility] Ketan JENNINGS [address] [facility] [place] [address] Guillaume Vasquez DO [address] [facility] [place] [address] documented as of this encounter Visit Diagnoses Not on filedocumented in this encounter Care Teams End Finder Forming Department Relationship Specialty Start Date End Date Chhaya Ceballos MD PCP - General Family Medicine 03/04/23 Franny Hager PA [address] [facility] [place] [address] PCP - Medical [place] Commercial 07/10/18 04/20/99 documented as of this encounter
--- OUTSIDE RECORDS SUMMARY | 2024-12-31 07:37 | XMS_ITS | Encounter Summary ---
Author Organization [facility] Address [address] [place] [address] Care Team Providers Care Equipment Mechanic Specialist Name Role Phone Chhaya Ceballos Primary Care Provider + Emile Mesa MD Unavailable Guillaume Vasquez DO Unavailable [phone] Source Comments In the event this information is protected by the Federal Confidentiality of Alcohol and Drug AbusePatient Records regulations: The Federal rules restrict any use of the information to criminally investigate or prosecute any alcohol or drug abuse patient.[facility] Encounter Details Date Type Department Care Team (Late st Contact Info) Description 08/25/2023 Patient [facility] -[address] [place] [address] Noemi Chavez RPh Medication Refill(s) Past Due [...] is lower risk 9 02/25/2023 Data from: https://www.neighborhoodatlas.medicine.[facility].edu/. Last address used for calculation 5 [...] on filedocumented in this encounter Care Teams Equipment Mechanic Specialist Relationship Specialty Start Date End Date Chhaya Ceballos DO [address] [address] PCP - General Family Medicine 07/25/22 Emile Mesa MD [address] [place] [address] [place] [address] Gastroenterology 07/25/22 Guillaume Vasquez DO [address] [place] [address] [place] [address] Retail Loss Prevention Investigator 07/25/22 documented as of this encounter
--- OUTSIDE RECORDS SUMMARY | 2024-12-31 07:37 | XMS_ITS | Encounter Summary ---
Author Organization [facility] Address [address] [facility] [address] [place] [address] Care Team Providers Care Faith Healer Name Role Phone Chhaya Ceballos MD Primary Care Provider [phone] Franny Hager Unavailable Encounter Details Date Type Department Care Team (Late st Contact Info) Description 07/24/2023 Clinisync Result Encounter NOMS External Department Unsolicited Tee Vasquez, [address] [place] [address] Social History Tobacco Use Types Packs/Day [...] Visit YAMILET JENNINGS [address] [place] [address] Tee Vasquez DO [address] [place], [place] [address] 11/01/2025 9:00 AM EDT Office Visit YAMILET [place] OBGYN [address] [facility] [place] [address] Tee Vasquez DO [address] [facility] [place] [address] documented as of this encounter Procedures Procedure Name Priority Date/Time Associated Diagnosis Comments US OB TRANSVAGINAL 07/24/2023 2: 24 PM EDT documented in this encounter Results * US OB TRANSVAGINAL (07/24/2023 2:24 PM EDT) Anatomical Region Laterality Modality Other 07/24/2023 2:24 PM EDT Narrative 07/24/2023 2:26 PM EDT [address] [address] Ultrasound Report Signed Patient: Jessee Almodovar MR#: [id number] : 1990 Acct:[id number] Age/Sex: 33 / F ADM Date: 07/24/23 Loc: NOMS Attending Dr: Tee Vasquez D.O. Ordering Physician: Tee Vasquez D.O. Date of Service: 07/24/23 Procedure(s): US OB transvaginal Accession Number(s): [id number] cc: Tee Vasquez D.O.; Physician,Non-Staff M.DCristopher The [address] [address] Patient Name: JESSEE ALMODOVAR MRN: [id number] date: 1990 Sex: F Assigned Patient Location: [facility]S Current Patient Location: [facility] Accession/Order Number: [id number] Exam Date: 07/24/2023 13:12 Report Date: 07/24/2023 [...] M.D. Signed By: 07/24/231425 DD/ 23 TD/TT: Natural Resources Engineer: Procedure Note Radiology, Radiologist, MD - 07/24/2023 [place] [address] Ultrasound Report Signed Patient: Jessee Almodovar BMR#: [id number] : 1990Acct:[id number] Age/Sex: 33 / FADM Date: 07/24/23 Loc: NOMS Attending Dr: Tee Vasquez D.O. Ordering Physician: Tee Vasquez D.O. Date of Service: 07/24/23 Procedure(s): US OB transvaginal Accession Number(s): [id number] cc: Tee Vasquez D.O.; Physician,Non-Staff M.DCristopher The [place] [address] Patient Name: JESSEE ALMODOVAR MRN: [id number] date: 1990 Sex: F Assigned Patient Location: NOMS Current Patient Location: NOMS Accession/Order Number: [id number] Exam Date: 07/24/2023 13:12 Report Date: 07/24/2023 [...] Gipson M.D. Signed By:07/24/231425 DD/ 23 TD/TT: Natural Resources Engineer: us Tee Pedro DO [facility] Final Result documented in this encounter Visit Diagnoses Not on filedocumented in this encounter Care Teams Faith Healer Relationship Specialty Start Date End Date Chhaya Ceballos MD PCP - General Family Medicine 03/04/23 Franny Hager PA [address] [place] [address] [place] [address] PCP - Medical [place] Commercial 07/10/18 04/20/99 documented as of this encounter
--- OUTSIDE RECORDS SUMMARY | 2024-12-31 07:37 | XMS_ITS | Encounter Summary ---
Author Organization [facility] Address [address] [address] [place] [address] Care Team Providers Care Scalemaker Name Role Phone Chhaya Ceballos MD Primary Care Provider [phone] Franny Hager Unavailable Encounter Details Date Type Department Care Team (Late st Contact Info) Description 02/10/2024 Abstract YAMILET JENNINGS [facility] [place] [address] Guillaume Vasquez DO [address], [facility]11 Social History Tobacco Use Types Packs/Day [...] Office Visit YAMILET JENNINGS [address] [place] [address] Guillaume Vasquez DO [address], [facility] 11/01/2025 9:00 AM EDT Office Visit [facility]OM[facility] Ketan JENNINGS [address] [facility] [place] [address] Guillaume Vasquez DO [address] [facility] [place] [address] documented as of this encounter Visit Diagnoses Not on filedocumented in this encounter Care Teams Scalemaker Relationship Specialty Start Date End Date Chhaya Ceballos MD PCP - General Family Medicine 03/04/23 Franny Hager PA [address] [facility] [place] [address] PCP - Medical [place] Commercial 07/10/18 04/20/99 documented as of this encounter
--- OUTSIDE RECORDS SUMMARY | 2024-12-31 07:37 | XMS_ITS | Encounter Summary ---
Author Organization [facility] Address [address] [place] [address] Care Team Providers Care Child Welfare Manager Name Role Phone Chhaya Ceballos MD Primary Care Provider [phone] Franny Hager Unavailable Encounter Details Date Type Department Care Team (Late st Contact Info) Description 11/14/2023 Abstract YAMILET JENNINGS [address] [place] [address] Jeanne Alvarado LPN [address] [place] [address] Social History Tobacco Use Types [...] AM EDT Office Visit YAMILET JENNINGS [address] [place] [address] Guillaume Vasquez DO [address] [employer] [address] [place], [facility]11 11/01/2025 9:00 AM EDT Office Visit [facility] Ketan JENNINGS [address] [facility] [place] [address] Guillaume Vasquez DO [address] [facility] [place] [address] documented as of this encounter Visit Diagnoses Not on filedocumented in this encounter Care Teams Child Welfare Manager Relationship Specialty Start Date End Date Chhaya Ceballos MD PCP - General Family Medicine 03/04/23 Franny Hager PA [address] [facility] [place] [address] PCP - Medical [place] Commercial 07/10/18 04/20/99 documented as of this encounter
--- OUTSIDE RECORDS SUMMARY | 2024-12-31 07:37 | XMS_ITS | Encounter Summary ---
Author Organization [facility] Address [address] [facility] [place] [address] Care Team Providers Care Amalgamator Name Role Phone Chhaya Ceballos MD Primary Care Provider [phone] Franny Hager Unavailable Encounter Details Date Type Department Care Team (Late st Contact Info) Description 11/05/2024 Results Follow-Up YAMILET Aceves OBGYMarge [address] [facility] [place] [place] [address] Jeanne Alvarado LPN [address] [place] [address] IGP,APTIMA HPV,AGE GDLN Social History [...] Office Visit YAMILET JENNINGS [facility] [place] [address] Guillaume Vasquez, DO [address] [place] [address] 11/01/2025 9:00 AM EDT Office Visit YAMILET JENNINGS [address] [place] [address] Guillaume Vasquez, DO [address] [place] [address] documented as of this encounter Visit Diagnoses Not on filedocumented in this encounter Care Teams Amalgamator Relationship Specialty Start Date End Date Chhaya Ceballos MD PCP - General Family Medicine 03/04/23 Franny Hager PA [address] [place], [place] [address]bar[address] [place] [address] PCP - Medical [place] Commercial 07/10/18 04/20/99 documented as of this encounter
--- OUTSIDE RECORDS SUMMARY | 2024-12-31 07:37 | XMS_ITS | Encounter Summary ---
Author Organization [facility] Address [address] [facility] [address] Care Team Providers Care Database Marketing Analyst Name Role Phone Chhaya Ceballos MD Primary Care Provider [phone] Franny Hager Unavailable Encounter Details Date Type Department Care Team (Late st Contact Info) Description 12/23/2023 Clinisync Result Encounter NOMS External Department Unsolicited Tee Vasquez, DO [address] [facility] [address] [place] [place], [place] [phone] Social History Tobacco Use Types Packs/Day Years [...] AM EDT Office Visit NOMAnil JENNINGS [address] [facility] [place] [phone] Tee Vasquez, [address] [facility] [place] [address] 11/01/2025 9:00 AM EDT Office Visit NOMAnil JENNINGS [address] [facility] [place] [address] Tee Vasquez DO [address] [place] [address] documented as of this encounter Procedures Procedure Name Priority Date/Time Associated Diagnosis Comments US OB GROWTH 12/23/2023 1:32 PM EDT documented in this encounter Results * US OB GROWTH (12/23/2023 1:32 PM EDT) Anatomical Region Laterality Modality Other 12/23/2023 1:32 PM EDT Narrative 12/23/2023 1:35 PM EDT The [address] [address] Ultrasound Report Signed Patient: JESSEE ALMODOVAR MR#: [id number] : 1990 Acct:[id number] Age/Sex: 33 / F ADM Date: 12/20/23 Loc: US Attending Dr: Tee Vasquez D.O. Ordering Physician: Tee Vasquez D.O. Date of Service: 12/20/23 Procedure(s): US OB growth Accession Number(s): [id number] cc: Tee Vasquez D.O.; Physician,Non-Staff MUriah The [address] [address] Patient Name: JESSEE ALMODOVAR MRN: [id number] date: 1990 Sex: F Assigned Patient Location: US Current Patient Location: Accession/Order Number: [id number] Exam Date: 12/20/2023 10:15 Report Date: 12/23/2023 [...] Signed By: 12/23/23 1335 DD/ 1332 TD/TT: Java Web Developer: Procedure Note Radiology, Radiologist, - 12/23/2023 [place] [address] Ultrasound Report Signed Patient: JESSEE ALMODOVAR BMR#: [id number] : 1990Acct:[id number] Age/Sex: 33 / FADM Date: 12/20/23 Loc: US Attending Dr: Tee Vasquez D.O. Ordering Physician: Tee Vasquez D.O. Date of Service: 12/20/23 Procedure(s): US OB growth Accession Number(s): [id number] cc: Tee Vasquez D.O.; Physician,Non-Staff Asim [address] [address] Patient Name: JESSEE ALMODOVAR MRN: [facility]:[id number] date: 1990 Sex: F Assigned Patient Location: US Current Patient Location: Accession/Order Number: [id number] Exam Date: 12/20/2023 10:15 Report Date: 12/23/2023 [...] M.D. Signed By:12/23/23 1335 DD/ 133 TD/TT: Java Web Developer: us Tee Vasquez DO [facility] Final Result documented in this encounter Visit Diagnoses Not on filedocumented in this encounter Care Teams Database Marketing Analyst Relationship Specialty Start Date End Date Chhaya Ceballos MD PCP - General Family Medicine 03/04/23 Franny Hager PA [address] [place] [address] Dr [place], [place] [address] PCP - Medical [place] Commercial 07/10/18 04/20/99 documented as of this encounter
--- OUTSIDE RECORDS SUMMARY | 2024-12-31 07:37 | XMS_ITS | Encounter Summary ---
Author Organization [facility] Address [address] [place] [address] Care Team Providers Care Metallurgical Engineering Teacher Name Role Phone Chhaya Ceballos MD Primary Care Provider [phone] Franny Hager Unavailable Encounter Details Date Type Department Care Team (Late st Contact Info) Description 10/21/2023 Abstract YAMILET JENNINGS [address] [employer] [place] [address] Jeanne Alvarado LPN [address] [place] [address] Social History Tobacco Use Types [...] AM EDT Office Visit YAMILET JENNINGS [address] [employer] [place] [address] Guillaume Vasquez DO [address] [place], [facility] 11/01/2025 9:00 AM EDT Office Visit NOMS Ketan JENNINGS [address] [facility] [place] [address] Guillaume Vasquez DO [address] [facility] [place] [address] documented as of this encounter Visit Diagnoses Not on filedocumented in this encounter Care Teams Metallurgical Engineering Teacher Relationship Specialty Start Date End Date Chhaya Ceballos MD PCP - General Family Medicine 03/04/23 Franny Hager PA [address] [facility] [place] [address] PCP - Medical [place] Commercial 07/10/18 04/20/99 documented as of this encounter
--- OUTSIDE RECORDS SUMMARY | 2024-12-31 07:37 | XMS_ITS | Encounter Summary ---
Author Organization [facility] Address [address] [facility] [place] [address] Care Team Providers Care Register Repairer Name Role Phone Chhaya Ceballos MD Primary Care Provider [phone] Franny Hager Unavailable Encounter Details Date Type Department Care Team (Late st Contact Info) Description 10/27/2023 Orders Only YAMILET JENNINGS [address] [place] [address] Angela Weir MA [address] [place] [address] Social History Tobacco Use Types Packs/Day Years [...] AM EDT Office Visit NOMAnil JENNINGS [address] [facility] [place] [address] Guillaume Vasquez DO [address] [place], [place] [address] 11/01/2025 9:00 AM EDT Office Visit YAMILET JENNINGS [address] [facility] [place] [address] Guillaume Vasquez DO [address] [place], [place] [address] documented as of this encounter Procedures Procedure Name Priority Date/Time Associated Diagnosis Comments PAP SMEAR Routine 10/21/2023 12:00 AM EDT documented in this encounter Results * Pap Smear (10/21/2023 12:00 AM EDT) Swab Cervical swab / Unknown Guillaume Vasquez DO LAB CYTOLOGY ORDERABLES Final Re sult EXTERNAL LAB documented in this encounter Visit Diagnoses Not on filedocumented in this encounter Care Teams Register Repairer Relationship Specialty Start Date End Date Chhaya Ceballos MD PCP - General Family Medicine 03/04/23 Franny Hager PA [address] [place], [place] [address] PCP - Medical [place] Commercial 07/10/18 04/20/99 documented as of this encounter
--- OUTSIDE RECORDS SUMMARY | 2024-12-31 07:38 | XMS_ITS | Clinical Summary ---
Author Organization [employer] tem Address [id number] [address] [place] [address] Care Team Providers Care Senior Programmer Name Role Phone Mely Castillo DO Primary Care Provider [phone]- [phone] Allergies No known active allergies Medications * [...] Last Done Comments Depression Screening 08/09/2023 08/08/2022 Adult BMI Screening 11/12/2024 11/13/2023 Tobacco Screening 11/12/2024 11/13/2023 COVID-19 Vaccine (3 - 2024-2 6 season) 2024 05/15/2020, 04/17/2020 Influenza Vaccine 12/20/2024 01/28/2023, , 01/18/2021, Additional history exists Pap Smear 10/20/2026 10/21/2023 DTaP,Tdap and Td Vaccines (4 - Td or Tdap) 01/04/2030 01/05/2020, 12/07/2018, 1991 [employer] Not on file Insurance [employer] Care Teams Senior Programmer Relationship Specialty Start Date End Date Mely Castillo DO [address] [place] [address] PCP - General Family Medicine 07/02/19
--- OUTSIDE RECORDS SUMMARY | 2024-12-31 07:38 | XMS_ITS | Encounter Summary ---
Author Organization [facility] tem Address [id number] [address] [place] [address] Care Team Providers Care Development Chemist Name Role Phone Mely Castillo DO Primary Care Provider [phone] Encounter Details Date Type Department Care Team (Late st Contact Info) Description 09/16/2023 Orders Only Maternal- Medicine at [facility] [address] [place] [id number] Ref Prov, [place] [address] Social History Tobacco Use Types Packs/Day Years [...] 12:23 PM EDT) Anatomical Region Laterality Modality OB-CONSERVATION ASSISTANT Ultrasound us Not In System Ref Prov IMG US ORDERABLES Final R esult documented in this encounter Visit Diagnoses Not on filedocumented in this encounter Additional Health Concerns Assessment Noted Time PHQ-9 Depression Total Score: 10 08/08/ 023 5:16 PM EDT documented as of this encounter Care Teams Development Chemist Relationship Specialty Start Date End Date Mely Castillo DO [address] [place] [address] PCP - General Family Medicine 07/02/19 documented as of this encounter
--- OUTSIDE RECORDS SUMMARY | 2024-12-31 07:38 | XMS_ITS | CCD ---
Author Organization [facility] Care Team Providers Care Physics And Astronomy Professor Name Role Phone Unavailable Primary Care Provider CHELSEA Ojeda Primary Care Physician [phone] Janice De La Rosa Unavailable Unavailable Unavailable [...] Unavailable PEDRO, DR OLIVEIRA Primary Care Unavailable POWERS, DR EMELIA Luna Consulting Unavailable PEDRO, DR OLIVEIRA Consulting Unavailable Chayo Anne Attending Unavailable Roxanne MOSLEY Attending Unavailable Asaad, Imad Unavailable Anupama Brown DO Primary Care Provider Moshe PALOMINO Imktalyn Unavailable Guillaume Vasquez DO Unavailable Anupama Brown [...] Unavailable HECTOR MANCERA Attending Unavailable EFRA, CHELSEA Damien Referring Unavailable EFRA, CHELSEA Damien Primary Care Unavailable Kevin OVERTON Anupama Martin Primary Care Provider Moshe PALOMINO, Imad Unavailable Pedro DO, Guillaume R Unavailable Unavailable Primary Care Provider Unavailmarcos e Efra OVERTON, Chelsea Damien Primary Care Provider FRANNY HAGER Referring Unavailable KEVIN, [facility] Primary Care Unavailabl e PEDRO, GUILLAUME R Referring Unavailable KEVIN, [facility] Primary Care Unavailabl e PEDRO, GUILLAUME R Referring Unavailable KEVIN, [facility] Primary Care Unavailabl e KEVIN, [facility] Primary Care Unavailabl e KEVIN, [facility] Primary Care Unavailabl e KEVIN, [facility] Primary Care Unavailabl e KEVIN, [facility] Primary Care Unavailabl e PEDRO, GUILLAUME R Referring Unavailable KEVIN, [facility] Primary Care Unavailabl e Kevin PALOMINO, [facility] Care Provider PEDRO, GUILLAUME Attending Unavailable PEDRO, GUILLAUME Attending Unavailable PEDRO, GUILLAUME Attending Unavailable PEDRO, GUILLAUME Attending Unavailable PEDRO, GUILLAUME Attending Unavailable MADAN, FRANNY Attending Unavailable PEDRO, GUILLAUME Attending Unavailable MADAN, FRANNY Attending Unavailable MADAN, FRANNY Attending Unavailable Franny Carcamo Unavailable Medications Current Medications Medication Drug Class(es) Dates Sig (Normalized) Sig (Original) amoxicillin 500 mg oral capsule (1 source) Penicillin-class Antibacterial Start: 05-26-2022 End: 06-05-2022 take 1 capsule by mouth every twelve hours amoxicillin 500 mg Cap 500 mg = 1 cap(s), Oral, q12hr, X 10 day(s), # 20 cap(s), Refills(s) 0, Pharmacy: [facility], 172, cm, 05/26/22 9:34:00 EST, Height/Length Dosing, 83.6, kg, 05/26/22 9:34:00 EST, Weight Dosing Start Date: 05/26/22 Stop Date: 06/05/22 Status: Ordered amphetamine aspartate [...] on above: Take 1 capsule by mo [facility] twice daily. labetalol hydrochloride 100 mg oral [...] Indications: Other specified related conditions, first trimester ([facility]) Take 1 capsule by mouth once daily. 30 capsule 11 08/25/2024 Active Start: 11-13-2022 take 1 capsule by mo ut twice daily omeprazole (PRILOSEC) 20 mg capsule [...] on above: Take 1 capsule by mo [facility] once daily. Wait 20-30 minutes before eating or taking other medications. Take 1 capsule by mo [facility] once daily in the morning, wait 20-30 minutes before eating or taking other medications Take 1 capsule by mo [facility] once daily. 20-30 minutes before eating or taking other medications Take 1 tablet by [facility] once daily in the morning, 20-30 minutes before eating or taking other medications Take 1 capsule by mo [facility] twice daily. PNV no.95/ferrous fum/folic ac ( ORAL) (8 sources) PNV no.95/ferrou s fum/folic ac ( ORAL) Take by mouth. Active PNV no.95/ferrou s fum/folic ac ( ORAL) Take by mouth. 0 Active Comment on above: Take by mouth. polysaccharide iron complex 391 mg oral capsule (12 sources) Start: 4 End: 5 take 1 [...] on above: 1 (one) tablet by mo [facility] one time dose hydrOXYzine hydrochloride 50 mg [...] Comment on above: Take 1 tablet by [facility] three times daily as needed. 10 [...] 02/25/2023 Discontinued Start: 08-23-2020 End: 02-25-2023 medroxyPROGESTERone (DEPO-MI OVERA) 150 mg/mL injection Indications: Excessive or [...] thyroid, unspecified] 04-06-2024 Episodic Unclassified (1 source) mfm video visit Onset: [...] Test Name Value Interpretation Reference Range Facility ECG 12-LEADon 12-22-2024 [place] [address] Electrocardiograph Report Signed Patient: JESSEE ALMODOVAR MR#: [id number] : 1990 Acct:[id number] Age/Sex: 34 / F ADM Date: 12/22/24 Loc: PST Attending Dr: Guillaume Vasquez D.O. Ordering Physician: Guillaume Vasquez D.O. Date of Service: 12/22/24 Procedure(s): ECG 12 lead Accession Number(s): [id number] cc: 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 Signed By: 12/22/24 1359 DD/ 0722 TD/TT: Electrical Logging Operator: [facility] Radiology, Radiologi st, MD - 12/22/2024 [place] [address] Electrocardiograph Report Signed Patient: JESSEE ALMODOVAR MR#: [id number] : 1990 Acct:[id number] Age/Sex: 34 / F ADM Date: 12/22/24 Loc: [facility] Attending Dr: Guillaume Vasquez D.O. Ordering Physician: Guillaume Vasquez D.O. 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 Signed By: 12/22/24 1359 DD/ 0743 TD/TT: Electrical Logging Operator: [facility] Radiology Study observation (narrative) [facility] ECG 12-LEADOrdered By: Radio logist Radiology on 12-22-2024 [facility] Work Phone: IGP,APTIMA HPV,AGE GDLNon AGE GDLN ACOG TESTING Note . [facility] Comment on above: TESTS RESULT FLAG UN ITS REF RANGE LAB Clinician Provided Cytology Information Source.............Cervix;Endocervix No. of containers..01 ThinPrep Vial Age Luis CABALLERO Anayeli... 30 FLAG LEGEND: L-Low Normal,H-High Normal,LL-Alert Low,HH-Alert High <-Panic Low,>-Panic High,A-Abnormal,AA-Critical Abnormal Performed at: 01 =[address] [phone] Gabrielle Luna MD, HPV APTIMA Positive Abnormal Negative [facility] Comment on above: This nucleic acid am plification test detects fourteen high- risk HPV types (16,18,31,33,35,39,45,51,52,56,58,59,66,68) without differentiation. Performed at: =[address] [id number] Night Cleaner: Gabrielle Luna MD, Phone: [phone] Performed at: [address] [id number] Night Cleaner: Gabrielle Luna MD, Phone: [phone] IGP, APTIMA HPV, RFX 16/18,45 Note Abnormal . [facility] Comment on above: TESTS RESULT FLAG UN ITS REF RANGE LAB DIAGNOSIS: [A] 02 EPITHELIAL CELL ABNORMALITY. LOW GRADE SQUAMOUS INTRAEPITHELIAL LESION (LSIL). ATYPICAL SQUAMOUS CELLS, CANNOT EXCLUDE HIGH-GRADE SQUAMOUS INTRAEPITHELIAL LESION (ASC-H). Recommendation: [A] 02 Suggest colposcopy and biopsy if indicated. Specimen adequacy: 02 Satisfactory for evaluation. Endocervical and/or squamous metaplastic cells (endocervical component) are present. Performed by: 02 Terence Martinez, [facility] ([facility]) Electronically si... Christine Alvarez MD, Pathologist . [...] <-Panic Low,>-Panic High,A-Abnormal,AA-Critical Abnormal Performed at: [address] [address] Gabrielle Luna MD, Interpretation and review of laboratory results Abnormal [facility] Healthcare BRUSH-SPATULA CERVIX ENDOCERVIX [facility] Cytology Cervical or vaginal smear or scraping studyOrdered By: Angela Weir on 10-26-2024 Interpretation and review of laboratory results Abnormal [facility] US PELVIC COMPLETE W/ TVon 0 08-03-2024 [...] II, MD, PHD at 04-Aug-2024 12:04:16 AM [facility] Normal Not Available Comment on above: Order Comment: US PE LVIS-TRANSVAG IF INDICATED No LMP recorded. B-HCG SerPl-aCncon HCG.beta subunit Qn m[IU]/mL Normal <5.0 [facility] Comment on above: Order Comment: Speci men Type: BLOOD SPECIMEN Ordering Facility: [facility] [place] Address: [facility] [address] [place] [address] Result Comment: Nega tive Performed By: #### 3 016-3, 3024-7 #### [facility] CLIA [id number] [address] [place] [address] [place] CBC W Auto Differential pane l (Bld)on 07-16-2024 Basophils (Bld) [#/Vol] 0.04 10*3/uL Normal <0.11 [facility] Comment on above: Order Comment: Speci men Type: BLOOD SPECIMEN Ordering Facility: [facility] [place] Address: [facility] [address] [place] [address] Performed By: #### 5 7021-8 #### [facility] CLIA [id number] [address] [place] [address] Basophils/100 WBC (Bld) 0.9 % Normal [facility] Comment on above: Order Comment: Speci men Type: BLOOD SPECIMEN Ordering Facility: [facility] Address: [address] [place] [address] Performed By: #### 5 7021-8 #### [facility] CLIA [id number] [address] [place] [address] Differential cell count method Nom (Bld) Auto Normal [facility] Comment on above: Order Comment: Speci men Type: BLOOD SPECIMEN [facility] Address: [address] [place] [id number] Performed By: #### 5 7021-8 #### [facility] CLIA [id number] [address] [place] [address] Eosinophils (Bld) [#/Vol] 0.07 10*3/uL Normal <0.46 [facility] Comment on above: Order Comment: Speci men Type: BLOOD SPECIMEN Ordering Facility: [facility] Address: [address] [place] [id number] Performed By: #### 5 7021-8 #### [facility] CLIA [id number] [address] [place] [address] Eosinophils/100 WBC (Bld) 1.5 % Normal [facility] Comment on above: Order Comment: Speci men Type: BLOOD SPECIMEN Ordering Facility: [facility] Address: [address] [place] [id number] Performed By: #### 5 7021-8 #### [facility] IA [id number] [address] [place] [address] Erythrocyte distribution width (RBC) [Ratio] 15.4 % High 11.5-15.0 [facility] Comment on above: Order Comment: Speci men Type: BLOOD SPECIMEN Ordering Facility: [facility] OBNEWS [facility] [place] Address: [address] [place] [address] Performed By: #### 5 7021-8 #### [facility] CLIA [id number] [address] [place] [address] Hematocrit (Bld) [Volume fraction] 42.7 % Normal 36.0-46.0 [facility] Comment on above: Order Comment: Speci men Type: BLOOD SPECIMEN Ordering Facility: [facility] [place] Address: [address] [place] [id number] Performed By: #### 5 7021-8 #### [facility] CLIA [id number] [address] [place] [address] Hemoglobin (Bld) [Mass/Vol] 14.0 g/dL Normal 11.5-15.5 [facility] Comment on above: Order Comment: Speci men Type: BLOOD SPECIMEN Ordering Facility: [facility] [place] Address: [address] [place] [phone] Performed By: #### 5 7021-8 #### [facility] CLIA [id number] [address] [place] [address] Immature granulocytes (Bld) [#/Vol] 10*3/uL Normal <0.10 [facility] Comment on above: Order Comment: Speci men Type: BLOOD SPECIMEN Ordering Facility: [facility] Address: [address] [place] [id number] Performed By: #### 5 7021-8 #### [facility] CLIA [id number] [address] [place] [address] Immature granulocytes/100 WBC (Bld) 0.4 % Normal [facility] Comment on above: Order Comment: Speci men Type: BLOOD SPECIMEN Ordering Facility: [facility] OBNE[facility] [place] Address: [address] [place] [phone] Performed By: #### 5 7021-8 #### [facility] CLIA [id number] [address] [place] [address] Lymphocytes (Bld) [#/Vol] 1.53 10*3/uL Normal 1.00-4.00 [facility] Comment on above: Order Comment: Speci men Type: BLOOD SPECIMEN Ordering Facility: [facility] [place] Address: [address] [place] [address] Performed By: #### 5 7021-8 #### [facility] CLIA [id number] [address] [place] [address] Lymphocytes/100 WBC (Bld) 32.6 % Normal [facility] Comment on above: Order Comment: Speci men Type: BLOOD SPECIMEN Ordering Facility: [facility] Address: [address] [place] [address] Performed By: #### 5 7021-8 #### [facility] CLIA [id number] [address] [place] [address] MCH (RBC) [Entitic mass] 29.5 pg Normal 26.0-34.0 [facility] Comment on above: Order Comment: Speci men Type: BLOOD SPECIMEN Ordering Facility: [facility] Address: [address] [place] [address] Performed By: #### 5 7021-8 #### [facility] CLIA [id number] [address] [place] [address] MCHC (RBC) [Mass/Vol] 32.8 g/dL Normal 30.5-36.0 [facility] Comment on above: Order Comment: Speci men Type: BLOOD SPECIMEN Ordering Facility: [facility] Address: [address] [place] [address] Performed By: #### 5 7021-8 #### [facility] CLIA [id number] [address] [place] [address] MCV (RBC) [Entitic vol] 90.1 fL Normal 80.0-100.0 [facility] Comment on above: Order Comment: Speci men Type: BLOOD SPECIMEN [facility] [place] Address: [address] [place] [address] Performed By: #### 5 7021-8 #### [facility] CLIA [id number] [address] [place] [address] Monocytes (Bld) [#/Vol] 0.51 10*3/uL Normal <0.87 [facility] Comment on above: Order Comment: Speci men Type: BLOOD SPECIMEN Ordering Facility: [facility] [place] Address: [address] [place] [address] Performed By: #### 5 7021-8 #### [facility] CLIA [id number] [address] [place] [address] Monocytes/100 WBC (Bld) 10.9 % Normal [facility] Comment on above: Order Comment: Speci men Type: BLOOD SPECIMEN [facility] Address: [address] [place] [phone] Performed By: #### 5 7021-8 #### [facility] CLIA [id number] [address] [place] [address] Neutrophils (Bld) [#/Vol] 2.52 10*3/uL Normal 1.45-7.50 [facility] Comment on above: Order Comment: Speci men Type: BLOOD SPECIMEN Ordering Facility: [facility] Address: [address] [place] [address] Performed By: #### 5 7021-8 #### [facility] CLIA [id number] [address] [place] [address] Neutrophils/100 WBC (Bld) 53.7 % Normal [facility] Comment on above: Order Comment: Speci men Type: BLOOD SPECIMEN Ordering Facility: [facility] Address: [address] [place] [address] Performed By: #### 5 7021-8 #### [facility] CLIA [id number] [address] [place] [address] Nucleated RBC (Bld) [#/Vol] 10*3/uL Normal <0.01 [facility] Comment on above: Order Comment: Speci men Type: BLOOD SPECIMEN Ordering Facility: [facility] Address: [address] [place] [address] Performed By: #### 5 7021-8 #### [facility] CLIA [id number] [address] [place] [address] Nucleated RBC/100 WBC (Bld) [Ratio] 0.0 /100 WBC Normal [facility] Comment on above: Order Comment: Speci men Type: BLOOD SPECIMEN Ordering Facility: [facility] [place] Address: [address] [place] [address] Performed By: #### 5 7021-8 #### [facility] CLIA [id number] [address] [place] [address] Platelet mean volume (Bld) [Entitic vol] 11.8 fL Normal 9.0-12.7 [facility] Comment on above: Order Comment: Speci men Type: BLOOD SPECIMEN Ordering Facility: [facility] Address: [address] [place] [address] Performed By: #### 5 7021-8 #### [facility] CLIA [id number] [address] [place] [address] Platelets (Bld) [#/Vol] 146 10*3/uL Low 150-400 [facility] Comment on above: Order Comment: Speci men Type: BLOOD SPECIMEN [facility] Address: [address] [place] [address] Result Comment: Resu lts checked and verified.No clot detected. Performed By: #### 5 7021-8 #### [facility] CLIA [id number] [address] [place] [address] RBC (Bld) [#/Vol] 4.74 10*6/uL Normal 3.90-5.20 [facility] Comment on above: Order Comment: Speci men Type: BLOOD SPECIMEN Ordering Facility: [facility] Address: [address] [place] [address] Performed By: #### 5 7021-8 #### [facility] CLIA [id number] [address] [place] [address] WBC (Bld) [#/Vol] 4.69 10*3/uL Normal 3.70-11.00 [facility] Comment on above: Order Comment: Speci men Type: BLOOD SPECIMEN Ordering Facility: [facility] [place] Address: [facility] [address] [place] [phone] Performed By: #### 5 7021-8 #### [facility] CLIA [id number] [address] [place] [address] DHEA BLOODon 07-16-2024 DHEA 1.775 ng/mL Normal 1.330-7.780 [facility] Comment on above: Order Comment: Speci men Type: BLOOD SPECIMEN Ordering Facility: [facility] [place] Address: [address] [place] [address] NILA BOYD [place] [id number] Result Comment: INTE RPRETIVE INFORMATION: Dehydroepiandrosterone, Females 18 years and older: Postmenopausal: 0.60-5.73 ng/mL REFERENCE INTERVAL: Dehydroepiandrosterone by TMS Access complete set of age- and/or gender-specific reference intervals for this test in the [facility] Test Directory ([employer]). This test was developed and its performance characteristics determined by [facility]. It has not been cleared or approved by the US Food and Drug Administration. This test was performed in a CLIA certified laboratory and is intended for clinical purposes. Performed By: [facility] [address] [place] [address] Holistic Nutritionist: Charlie Forde MD, PhD CLIA Number: [id number] Performed By: #### D BONITAA #### [facility] CLIA [id number] [address] [place] [address] DHEA-S BLDon 07-16-2024 DHEA-S [Mass/Vol] 71.1 ug/dL Low 98.8-340.0 [facility] Comment on above: Order Comment: Speci men Type: BLOOD SPECIMEN Ordering Facility: External Submitter Address: , , Result Comment: Refe rence ranges are age and gender specific. For additional information, reference range tables can be found in the laboratory test directory. The normal values are based on the following source: Dehydroepiandrosterone sulfate (DHEA S) [package insert V 17.0 Cuban]. [employer], [place], [place]: November 2012. Performed By: #### 5 7021-8 #### [facility] CLIA [id number] [address] [place] [address] FSH SerPl-aCncon 07-16-2024 Follitropin Qn 18.9 m[IU]/mL Normal See comment [facility] Comment on above: Order Comment: Speci men Type: BLOOD SPECIMEN Ordering Facility: External Submitter Address: , , Result Comment: Refe rence range: Follicular: 3.5-12.5 mIU/mL Ovulation: 4.7-21.5 mIU/mL Luteal: 1.7-7.7 mIU/mL Postmenopausal: 25.8-134.8 mIU/mL Performed By: #### 5 7021-8 #### [facility] CLIA [id number] [address] [place] [address] HbA1c (Bld)on 07-16-2024 Average glucose Estimated from glycated hemoglobin (Bld) [Mass/Vol] 97 mg/dL Normal [facility] Comment on above: Order Comment: Speci men Type: BLOOD SPECIMEN Ordering Facility: [facility] [place] Address: [address] [place] [place] [address] , [place] [address] Result Comment: eAG: (Estimated average glucose) is a calculated value from HgbA1c and is retail wireless sales representative of the average blood glucose level in the last 2-3 month period. Performed By: #### 5 5454-3 #### [facility] CLIA [id number] [address] [place] [address] [place] HbA1c (Bld) [Mass fraction] 5.0 % Normal 4.3-5.6 [facility] Comment on above: Order Comment: Speci men Type: BLOOD SPECIMEN Ordering Facility: [facility] [place] Address: [address] [place] [address] Result Comment: Amer [place] Diabetes Association guidelines indicate that patients with HgbA1c in the range 5.7-6.4% are at increased risk for development of diabetes, and intervention by lifestyle modification may be beneficial. HgbA1c greater or equal to 6.5% is considered diagnostic of diabetes. Performed By: #### 5 5454-3 #### [facility] CLIA [id number] [address] [place] [address] LH SerPl-aCncon 07-16-2024 Lutropin Qn 12.5 m[IU]/mL Normal See comment [facility] Comment on above: Order Comment: Speci vishnu Type: BLOOD SPECIMEN Ordering Facility: External Submitter Address: , , Result Comment: Refe rence range: Follicular: 2.4-12.6 mIU/mL Midcycle: 14.0-95.6 mIU/mL Luteal: 1.0-11.4 mIU/mL Post Whiteside: 7.7-58.5 mIU/mL Performed By: #### 5 7021-8 #### [facility] CLIA [id number] [address] [place] [address] T4 Free SerPl-mCncon 025 Free T4 [Mass/Vol] 1.2 ng/dL Normal 0.9-1.7 [facility] Comment on above: Order Comment: Tammy mares Type: BLOOD SPECIMEN Ordering Facility: External Submitter Address: , , Performed By: #### 5 7021-8 #### [facility] CLIA [id number] [address] [place] [address] TSH SerPl-aCncon 07-16-2024 TSH Qn 6.050 m[IU]/L High 0.270-4.200 [facility] Comment on above: Order Comment: Tammy mares Type: BLOOD SPECIMEN Ordering Facility: [facility] [place] Address: [address] [place] [address] Result Comment: If t he patient is , TSH reference range varies by gestational period: First Trimester (weeks 9-12): 0.180-2.990 mIU/L Second Trimester: 0.110-3.980 mIU/L Third Trimester: 0.480-4.710 mIU/L Manuel Grayson et al. A Practical Approach for the Verifications and Determination of Site- and Trimester-Specific Reference Intervals for Thyroid Function tests in . Thyroid, 2019:29:3:412-420. Emanuel E, et al. 2017 Guidelines of the [place] Thyroid Association for the Diagnosis and Management of Thyroid Disease during and the . Thyroid, 2017:27:3:315-389. Performed By: #### 3 016-3, 3024-7 #### [facility] CLIA [id number] [facility] [place] [address] [place] [facility] ALL CBC WITH AUTO DIFFon BASOPHILS ABSOLUTE AUTO 0 [facility] Basophils/100 WBC (Bld) 0.3 % 0.2 - 2.0 % [facility] Eosinophils/100 WBC (Bld) 0.8 % Low 0.9 - 7.0 % [facility] Erythrocyte distribution width (RBC) [Ratio] 14.3 % 11.0 - 15.0 % [facility] Hematocrit (Bld) [Volume fraction] 32.4 % Low 36.0 - 48.0 % [facility] Hemoglobin (Bld) [Mass/Vol] 10 g/dL Low 12.0 - 16.0 g/dL [facility] IMMATURE GRANULOCYTES ABS AUTO 0.05 High [facility] Immature granulocytes/100 WBC (Bld) 0.5 % 0.0 - 0.5 % [facility] Interpretation and review of laboratory results Abnormal [facility] LYMPHOCYTES ABSOLUTE AUTO 1.4 [facility] Lymphocytes/100 WBC (Bld) 12.7 % Low 20.5 - 60.0 % [facility] MCH (RBC) [Entitic mass] 25.4 pg Low 26.7 - 34.0 pg [facility] MCHC (RBC) [Mass/Vol] 30.9 g/dL 29.9 - 35.2 g/dL [facility] MCV (RBC) [Entitic vol] 82.2 fL 81.0 - 99.0 fL [facility] MONOCYTES ABSOLUTE AUTO 1 High [facility] Monocytes/100 WBC (Bld) 9.4 % 1.7 - 12.0 % [facility] NEUTROPHILS ABSOLUTE AUTO 8.3 High [facility] Neutrophils/100 WBC (Bld) 76.3 % High 43.0 - 75.0 % [facility] Platelet mean volume (Bld) [Entitic vol] 11.7 fL 9.5 - 13.5 fL [facility] EO # 0.1 [facility] PLT 158 [facility] RBC 3.94 Low [facility] WBC 10.9 [facility] WITH PLATELET NO DI FFERENTIALon 02-23-2024 Erythrocyte distribution width (RBC) [Ratio] 14.3 % 11.0 - 15.0 % [facility] Hematocrit (Bld) [Volume fraction] 34.6 % Low 36.0 - 48.0 % [facility] Hemoglobin (Bld) [Mass/Vol] 10.9 g/dL Low 12.0 - 16.0 g/dL [facility] Interpretation and review of laboratory results Abnormal [facility] MCH (RBC) [Entitic mass] 25.6 pg Low 26.7 - 34.0 pg [facility] MCHC (RBC) [Mass/Vol] 31.5 g/dL 29.9 - 35.2 g/dL [facility] MCV (RBC) [Entitic vol] 81.4 fL 81.0 - 99.0 fL [facility] Platelet mean volume (Bld) [Entitic vol] 12.8 fL 9.5 - 13.5 fL [facility] PLT 178 [facility] RBC 4.25 [facility] WBC 9.5 [facility] Urinalysis macro (dipstick) panel (U)on 02-10-2024 Bilirubin, UA Negative Negative - 4(70) +++ mg/dL [facility] Blood, UA Negative Negative - 50 Pepito/mcL [facility] Clarity, UA Clear [facility] Color, UA Yellow [facility] Glucose, UA Negative Negative - 2000(110) ++++ mg/dL [facility] Interpretation and review of laboratory results Normal [facility] Ketones, UA Negative Negative - 160(16) ++++ mg/dL [facility] Leukocytes, UA Negative Negative - 500+++ Ilia/mcL [facility] Nitrite, UA Negative Negative - Positive [facility] pH, UA 6.5 5 - 9 [facility] Protein, UA Negative Negative - 2000(20) ++++ mg/dL [facility] Spec Grav, UA 1.01 1 - 1.03 [facility] Urobilinogen, UA 0.2 0.2 - 12 mg/dL [facility] T4 [facility] 0[facility] Free T4 [Mass/Vol] 1.1 ng/dL Normal 0.9-1.7 [facility] Comment on above: Order Comment: Speci men Type: BLOOD SPECIMEN Ordering Facility: [facility] [place] Address: [facility] [address] [place] [address] Performed By: #### 3 016-3, 3024-7 #### [facility] CLIA [id number] [address] [place] [address] [place] TSH SerPl-aCncon 02-05-2024 TSH Qn 1.340 m[IU]/L Normal 0.270-4.200 [facility] Comment on above: Order Comment: Speci men Type: BLOOD SPECIMEN Ordering Facility: [facility] [place] Address: [facility] [address] [place] [address] Result Comment: If t he patient is , TSH reference range varies by gestational period: First Trimester (weeks 9-12): 0.180-2.990 mIU/L Second Trimester: 0.110-3.980 mIU/L Third Trimester: 0.480-4.710 mIU/L Manuel Grayson et al. A Practical Approach for the Verifications and Determination of Site- and Trimester-Specific Reference Intervals for Thyroid Function tests in . Thyroid, 2019:29:3:412-420. Emanuel E, et al. 2017 Guidelines of the [place] Thyroid Association for the Diagnosis and Management of Thyroid Disease during and the . Thyroid, 2017:27:3:315-389. Performed By: #### 3 016-3, 3024-7 #### [facility] CLIA [id number] [address] [place] [address] [place] Urinalysis macro (dipstick) panel (U)on 01-27-2024 Bilirubin, UA Negative Negative - 4(70) +++ mg/dL [facility] Blood, UA Negative Negative - 50 Pepito/mcL [facility] Clarity, UA Clear [facility] Color, UA Yellow [facility] Glucose, UA Negative Negative - 1999(110) ++++ mg/dL [facility] Interpretation and review of laboratory results Normal [facility] Ketones, UA Negative Negative - 160(16) ++++ mg/dL [facility] Leukocytes, UA Negative Negative - 500+++ Ilia/mcL [facility] Nitrite, UA Negative Negative - Positive [facility] pH, UA 5.5 5 - 9 [facility] Protein, UA Negative Negative - 1999(20) ++++ mg/dL [facility] Spec Grav, UA 1.020 1 - 1.03 [facility] Urobilinogen, UA 0.2 0.2 - 12 mg/dL [facility] CBC W Auto Differential pane l (Bld)on 01-19-2024 Basophils (Bld) [#/Vol] 10*3/uL Normal <0.11 [facility] Comment on above: Order Comment: Speci men Type: BLOOD SPECIMEN Ordering Facility: [facility] [place] Address: [facility] [address] [place] [address] Performed By: #### 3 016-3, 3023-10 #### [facility] CLIA [id number] [address] [place] [address] [place] Basophils/100 WBC (Bld) 0.2 % Normal [facility] Comment on above: Order Comment: Speci men Type: BLOOD SPECIMEN [facility] Address: [facility] [address] [place] [address] Performed By: #### 3 016-3, 3023-10 #### [facility] CLIA [id number] [address] [place] [address] [place] Differential cell count method Nom (Bld) Auto Normal [facility] Comment on above: Order Comment: Speci men Type: BLOOD SPECIMEN Ordering Facility: [facility] [place] Address: [address] [place] [address] Performed By: #### 3 016-3, 7 #### [facility] IA [id number] [address] [place] [address] [place] Eosinophils (Bld) [#/Vol] 0.06 10*3/uL Normal <0.46 [facility] Comment on above: Order Comment: Speci men Type: BLOOD SPECIMEN Ordering Facility: [facility] [place] Address: [address] [place] [address] Performed By: #### 3 016-3, 7 #### [facility] IA [id number] [address] [place] [address] [place] Eosinophils/100 WBC (Bld) 0.6 % Normal [facility] Comment on above: Order Comment: Speci men Type: BLOOD SPECIMEN Ordering Facility: [facility] [place] Address: [address] [place] [address] Performed By: #### 3 016-3, 7 #### [facility] IA [id number] [address] [place] [address] [place] Erythrocyte distribution width (RBC) [Ratio] 13.3 % Normal 11.5-15.0 [facility] Comment on above: Order Comment: Speci men Type: BLOOD SPECIMEN Ordering Facility: [facility] [place] Address: [address] [place] [id number] Performed By: #### 3 016-3, 7 #### [facility] IA [id number] [address] [place] [address] [place] Hematocrit (Bld) [Volume fraction] 32.8 % Low 36.0-46.0 [facility] Comment on above: Order Comment: Speci men Type: BLOOD SPECIMEN Ordering Facility: [facility] [place] Address: [address] [place] [address] Performed By: #### 3 016-3, 7 #### [facility] CLIA [id number] [address] [place] [address] [place] Hemoglobin (Bld) [Mass/Vol] 10.7 g/dL Low 11.5-15.5 [facility] Comment on above: Order Comment: Speci men Type: BLOOD SPECIMEN Ordering Facility: [facility] [place] Address: [address] [place] [address] Performed By: #### 3 016-3, 7 #### [facility] CLIA [id number] [address] [place] [address] [place] Immature granulocytes (Bld) [#/Vol] 0.05 10*3/uL Normal <0.10 [facility] Comment on above: Order Comment: Speci men Type: BLOOD SPECIMEN Ordering Facility: [facility] [place] Address: [address] [place] [address] Performed By: #### 3 016-3, 7 #### [facility] CLIA [id number] [address] [place] [address] [place] Immature granulocytes/100 WBC (Bld) 0.5 % Normal [facility] Comment on above: Order Comment: Speci men Type: BLOOD SPECIMEN Ordering Facility: [facility] [place] Address: [address] [place] [address] Performed By: #### 3 -3, 3023-10 #### [facility] CLIA [id number] [address] [place], [place] [id number] [place] Lymphocytes (Bld) [#/Vol] 1.55 10*3/uL Normal 1.00-4.00 [facility] Comment on above: Order Comment: Speci men Type: BLOOD SPECIMEN Ordering Facility: [facility] [place] Address: [address] [place] [address] Performed By: #### 3 016-3, 7 #### [facility] CLIA [id number] [address] [place] [id number] [place] Lymphocytes/100 WBC (Bld) 15.1 % Normal [facility] Comment on above: Order Comment: Speci men Type: BLOOD SPECIMEN Ordering Facility: [facility] [place] Address: [facility] [address] [place] [address] Performed By: #### 3 016-3, 7 #### [facility] CLIA [id number] [address] [place] [address] [place] MCH (RBC) [Entitic mass] 27.8 pg Normal 26.0-34.0 [facility] Comment on above: Order Comment: Speci men Type: BLOOD SPECIMEN Ordering Facility: [facility] OB[facility]WS [facility]PART[facility] [place] Address: [facility] [address] [address] Performed By: #### 3 016-3, 7 #### [facility] CLIA [id number] [address] [place] [address] [place] MCHC (RBC) [Mass/Vol] 32.6 g/dL Normal 30.5-36.0 [facility] Comment on above: Order Comment: Speci men Type: BLOOD SPECIMEN Ordering Facility: [facility] Address: [facility] [address] [place] [address] Performed By: #### 3 016-3, 7 #### [facility] CLIA [id number] [address] [place] [id number] [place] MCV (RBC) [Entitic vol] 85.2 fL Normal 80.0-100.0 [facility] Comment on above: Order Comment: Speci men Type: BLOOD SPECIMEN Ordering Facility: [facility] Address: [facility] [address] [address] Performed By: #### 3 016-3, 7 #### [facility] CLIA [id number] [address] [place] [address] [place] Monocytes (Bld) [#/Vol] 0.77 10*3/uL Normal <0.87 [facility] Comment on above: Order Comment: Speci men Type: BLOOD SPECIMEN [facility] Address: [facility] [place] [place] [address] Performed By: #### 3 016-3, 3027 #### [facility] CLIA [id number] [address] [place] [address] [place] Monocytes/100 WBC (Bld) 7.5 % Normal [facility] Comment on above: Order Comment: Speci men Type: BLOOD SPECIMEN Ordering Facility: [facility] [place] Address: [facility] [place] [address] Performed By: #### 3 016-3, 3027 #### [facility] CLIA [id number] [address] [place] [address] [place] Neutrophils (Bld) [#/Vol] 7.81 10*3/uL High 1.45-7.50 [facility] Comment on above: Order Comment: Speci men Type: BLOOD SPECIMEN Ordering Facility: [facility] Address: [facility] [place] [address] Performed By: #### 3 016-3, 3027 #### [facility] CLIA [id number] [address] [place] [address] [place] Neutrophils/100 WBC (Bld) 76.1 % Normal [facility] Comment on above: Order Comment: Speci men Type: BLOOD SPECIMEN Ordering Facility: [facility] Address: [facility] [address] [place] [id number] Performed By: #### 3 016-3, 3024-7 #### [facility] CLIA [id number] [address] [place] [address] [place] Nucleated RBC (Bld) [#/Vol] 10*3/uL Normal <0.01 [facility] Comment on above: Order Comment: Speci men Type: BLOOD SPECIMEN Ordering Facility: [facility] [place] Address: [facility] [address] [address] Performed By: #### 3 016-3, 7 #### [facility] CLIA [id number] [address] [place] [address] [place] Nucleated RBC/100 WBC (Bld) [Ratio] 0.0 /100 WBC Normal [facility] Comment on above: Order Comment: Speci men Type: BLOOD SPECIMEN Ordering Facility: [facility] [place] Address: [facility] [address] [address] Performed By: #### 3 016-3, 7 #### [facility] CLIA [id number] [address] [place] [address] [place] Platelet mean volume (Bld) [Entitic vol] 11.3 fL Normal 9.0-12.7 [facility] Comment on above: Order Comment: Speci men Type: BLOOD SPECIMEN Ordering Facility: [facility] [place] Address: [facility] [address] [place] [address] Performed By: #### 3 016-3, 7 #### [facility] CLIA [id number] [address] [place] [address] [place] Platelets (Bld) [#/Vol] 172 10*3/uL Normal 150-400 [facility] Comment on above: Order Comment: Speci men Type: BLOOD SPECIMEN Ordering Facility: [facility]WS [facility]PART[facility]N [place] Address: [facility] [address] [address] Performed By: #### 3 016-3, 7 #### [facility] CLIA [id number] [address] [address] [place] RBC (Bld) [#/Vol] 3.85 10*6/uL Low 3.90-5.20 [facility] Comment on above: Order Comment: Speci men Type: BLOOD SPECIMEN Ordering Facility: [facility] [place] Address: [facility] [address] [place] [address] Performed By: #### 3 016-3, 3024-7 #### [facility] CLIA [id number] [address] [place] [address] [facility] WBC (Bld) [#/Vol] 10.26 10*3/uL Normal 3.70-11.00 [facility] Comment on above: Order Comment: Speci men Type: BLOOD SPECIMEN Ordering Facility: [facility] [place] Address: [facility] [address] [place] [address] Performed By: #### 3 016-3, 3024-7 #### [facility] CLIA [id number] [address] [place] [address] [place] Urinalysis macro (dipstick) panel (U)on 01-13-2024 Bilirubin, UA Negative Negative - 4(70) +++ mg/dL [facility] Blood, UA Negative Negative - 50 Pepito/mcL [facility] Clarity, UA Clear [facility] Color, UA Yellow [facility] Glucose, UA Negative Negative - 2000(110) ++++ mg/dL [facility] Interpretation and review of laboratory results Normal [facility] Ketones, UA Negative Negative - 160(16) ++++ mg/dL [facility] Leukocytes, UA Negative Negative - 500+++ Ilia/mcL [facility] Nitrite, UA Negative Negative - Positive [facility] pH, UA 6.5 5 - 9 [facility] Protein, UA Negative Negative - 2000(20) ++++ mg/dL [facility] Spec Grav, UA 1.020 1 - 1.03 [facility] Urobilinogen, UA 0.2 0.2 - 12 mg/dL [facility] T4 Free SerPl-mCncon 024 Free T4 [Mass/Vol] 0.9 ng/dL Normal 0.9-1.7 [facility] Comment on above: Order Comment: Speci men Type: BLOOD SPECIMEN Ordering Facility: External Submitter Address: , , Performed By: #### 5 7021-8 #### [facility] CLIA [id number] [address] [place] [address] TSH Preml-Docon 01-05-2024 TSH Qn 1.220 m[IU]/L Normal 0.270-4.200 [facility] Comment on above: Order Comment: [...] Nassar, et al. 2017 Guidelines of the [place] Thyroid Association for the Diagnosis and Management of Thyroid Disease during and the . Thyroid, 2017:27:3:315-389. Performed By: #### 5 7021-8 #### [facility] CLIA [id number] [address] [place] [address] Urinalysis macro (dipstick) panel (U)on 12-30-2023 Bilirubin, UA Negative Negative - 4(70) +++ mg/dL [facility] Blood, UA Negative Negative - 50 Pepito/mcL [facility] Clarity, UA Clear [facility] Color, UA Yellow [facility] Glucose, UA Negative Negative - 2000(110) ++++ mg/dL [facility] Interpretation and review of laboratory results Abnormal [facility] Ketones, UA Negative Negative - 160(16) ++++ mg/dL [facility] Leukocytes, UA Trace Negative - 500+++ Ilia/mcL [facility] Nitrite, UA Negative Negative - Positive [facility] pH, UA 6.5 5 - 9 [facility] Protein, UA Negative Negative - 2000(20) ++++ mg/dL [facility] Spec Grav, UA 1.025 1 - 1.03 [facility] Urobilinogen, UA 0.2 0.2 - 12 mg/dL [facility] Urinalysis macro (dipstick) panel (U)on 12-16-2023 Bilirubin, UA Negative Negative - 4(70) +++ mg/dL [facility] Blood, UA Negative Negative - 50 Pepito/mcL [facility] Clarity, UA Clear [facility] Color, UA Yellow [facility] Glucose, UA Negative Negative - 1999(110) ++++ mg/dL [facility] Interpretation and review of laboratory results Abnormal [facility] Ketones, UA Negative Negative - 160(16) ++++ mg/dL [facility] Leukocytes, UA Trace Negative - 500+++ Ilia/mcL [facility] Nitrite, UA Negative Negative - Positive [facility] pH, UA 6.0 5 - 9 [facility] Protein, UA Negative Negative - 1999(20) ++++ mg/dL [facility] Spec Grav, UA 1.020 1 - 1.03 [facility] Urobilinogen, UA 0.2 0.2 - 12 mg/dL [facility] T4 Free SerPl-mCncon 024 Free T4 [Mass/Vol] 1.1 ng/dL Normal 0.9-1.7 [facility] Comment on above: Order Comment: Tammy mares Type: BLOOD SPECIMEN Ordering Facility: External Submitter Address: , , Performed By: #### 5 7021-8 #### [facility] CLIA [id number] [address] [place] [address] TSH SerPl-aCncon 12-08-2023 TSH Qn 0.607 m[IU]/L Normal 0.270-4.200 [facility] Comment on above: Order Comment: Tammy [...] E, et al. 2017 Guidelines of the [place] Thy[employer] Association for the Diagnosis and Management of Thyroid Disease during and the . Thyroid, 2017:27:3:315-389. Performed By: #### 5 7021-8 #### [facility] CLIA [id number] [address] [place] [address] CBC W Auto Differential pane l (Bld)on 11-20-2023 Basophils (Bld) [#/Vol] 0.04 10*3/uL Normal <0.11 [facility] Comment on above: Order Comment: Speci men Type: BLOOD SPECIMEN Ordering Facility: [facility] [place] Address: [address] [place] [address] Performed By: #### 5 7021-8 #### [facility] CLIA [id number] [address] [place] [address] Basophils/100 WBC (Bld) 0.6 % Normal [facility] Comment on above: Order Comment: Speci men Type: BLOOD SPECIMEN [facility] Address: [address] [place] [address] Performed By: #### 5 7021-8 #### [facility] CLIA [id number] [address] [place] [address] Differential cell count method Nom (Bld) Auto Normal [facility] Comment on above: Order Comment: Speci men Type: BLOOD SPECIMEN Ordering Facility: [facility] [place] Address: [address] [place] [address] Performed By: #### 5 7021-8 #### [facility] CLIA [id number] [address] [place] [address] Eosinophils (Bld) [#/Vol] 0.05 10*3/uL Normal <0.46 [facility] Comment on above: Order Comment: Speci men Type: BLOOD SPECIMEN Ordering Facility: [facility] [place] Address: [address] [place] [id number] Performed By: #### 5 7021-8 #### [facility] CLIA [id number] [address] [place] [address] 00253 Eosinophils/100 WBC (Bld) 0.7 % Normal [facility] Comment on above: Order Comment: Speci men Type: BLOOD SPECIMEN [facility] Address: [address] [place] [address] Performed By: #### 5 7021-8 #### [facility] CLIA [id number] [address] [place] [address] 57701 Erythrocyte distribution width (RBC) [Ratio] 12.9 % Normal 11.5-15.0 [facility] Comment on above: Order Comment: Speci men Type: BLOOD SPECIMEN [facility] Address: [facility] [place] [place] [address] Performed By: #### 5 7021-8 #### [facility] CLIA [id number] [address] [place] [address] 40873 Hematocrit (Bld) [Volume fraction] 35.0 % Low 36.0-46.0 [facility] Comment on above: Order Comment: Speci men Type: BLOOD SPECIMEN Ordering Facility: [facility] Address: [facility] [address] [place] [address] Performed By: #### 5 7021-8 #### [facility] CLIA [id number] [address] [place] [address] 97394 Hemoglobin (Bld) [Mass/Vol] 11.4 g/dL Low 11.5-15.5 [facility] Comment on above: Order Comment: Speci men Type: BLOOD SPECIMEN Ordering Facility: [facility] Address: [address] [place] [id number] Performed By: #### 5 7021-8 #### [facility] CLIA [id number] [address] [place] [address] 75693 Immature granulocytes (Bld) [#/Vol] 10*3/uL Normal <0.10 [facility] Comment on above: Order Comment: Speci men Type: BLOOD SPECIMEN Ordering Facility: [facility] [place] Address: [address] [place] [address] Performed By: #### 5 7021-8 #### [facility] CLIA [id number] [address] [place] [address] Immature granulocytes/100 WBC (Bld) 0.3 % Normal [facility] Comment on above: Order Comment: Speci men Type: BLOOD SPECIMEN Ordering Facility: [facility] [place] Address: [address] [place] [address] Performed By: #### 5 7021-8 #### [facility] CLIA [id number] [address] [place] [address] 76781 Lymphocytes (Bld) [#/Vol] 1.25 10*3/uL Normal 1.00-4.00 [facility] Comment on above: Order Comment: Speci men Type: BLOOD SPECIMEN Ordering Facility: [facility] Address: [address] [place] [address] Performed By: #### 5 7021-8 #### [facility] CLIA [id number] [address] [place] [address] 16004 Lymphocytes/100 WBC (Bld) 18.3 % Normal [facility] Comment on above: Order Comment: Speci men Type: BLOOD SPECIMEN Ordering Facility: [facility] [place] Address: [address] [place] [address] Performed By: #### 5 7021-8 #### [facility] CLIA [id number] [address] [place] [address] 72035 MCH (RBC) [Entitic mass] 29.9 pg Normal 26.0-34.0 [facility] Comment on above: Order Comment: Speci men Type: BLOOD SPECIMEN [facility] [place] Address: [address] [place] [address] Performed By: #### 5 7021-8 #### [facility] CLIA [id number] [address] [place] [address] MCHC (RBC) [Mass/Vol] 32.6 g/dL Normal 30.5-36.0 [facility] Comment on above: Order Comment: Speci men Type: BLOOD SPECIMEN Ordering Facility: [facility] [place] Address: [facility] [address] [place] [id number] Performed By: #### 5 7021-8 #### [facility] CLIA [id number] [address] [place] [address] MCV (RBC) [Entitic vol] 91.9 fL Normal 80.0-100.0 [facility] Comment on above: Order Comment: Speci men Type: BLOOD SPECIMEN Ordering Facility: [facility] [place] Address: [facility] [place] [address] [place] [address] Performed By: #### 5 7021-8 #### [facility] CLIA [id number] [address] [place] [address] 08757 Monocytes (Bld) [#/Vol] 0.52 10*3/uL Normal <0.87 [facility] Comment on above: Order Comment: Speci men Type: BLOOD SPECIMEN Ordering Facility: [facility] Address: [facility] [place] [address] Performed By: #### 5 7021-8 #### [facility] CLIA [id number] [address] [place] [address] 63366 Monocytes/100 WBC (Bld) 7.6 % Normal [facility] Comment on above: Order Comment: Speci men Type: BLOOD SPECIMEN Ordering Facility: [facility] [place] Address: [facility] [address] [place] [id number] Performed By: #### 5 7021-8 #### [facility] CLIA [id number] [address] [place] [address] 49330 Neutrophils (Bld) [#/Vol] 4.94 10*3/uL Normal 1.45-7.50 [facility] Comment on above: Order Comment: Speci men Type: BLOOD SPECIMEN Ordering Facility: [facility] [place] Address: [address] [place] [address] Performed By: #### 5 7021-8 #### [facility] CLIA [id number] [address] [place] [address] Neutrophils/100 WBC (Bld) 72.5 % Normal [facility] Comment on above: Order Comment: Speci men Type: BLOOD SPECIMEN Ordering Facility: [facility] [place] Address: [address] [place] [address] Performed By: #### 5 7021-8 #### [facility] CLIA [id number] [address] [place] [address] 56367 Nucleated RBC (Bld) [#/Vol] 10*3/uL Normal <0.01 [facility] Comment on above: Order Comment: Speci men Type: BLOOD SPECIMEN [facility] [place] Address: [address] [place] [address] Performed By: #### 5 7021-8 #### [facility] CLIA [id number] [address] [place] [address] 73041 Nucleated RBC/100 WBC (Bld) [Ratio] 0.0 /100 WBC Normal [facility] Comment on above: Order Comment: Speci men Type: BLOOD SPECIMEN [facility] [place] Address: [address] [place] [address] Performed By: #### 5 7021-8 #### [facility] CLIA [id number] [address] [place] [address] Platelet mean volume (Bld) [Entitic vol] 11.4 fL Normal 9.0-12.7 [facility] Comment on above: Order Comment: Speci men Type: BLOOD SPECIMEN [facility] [place] Address: [address] [place] [address] Performed By: #### 5 7021-8 #### [facility] CLIA [id number] [address] [place] [address] Platelets (Bld) [#/Vol] 167 10*3/uL Normal 150-400 [facility] Comment on above: Order Comment: Speci men Type: BLOOD SPECIMEN [facility] Address: [facility] [place] [address] Performed By: #### 5 7021-8 #### [facility] CLIA [id number] [address] [place] [address] 94689 RBC (Bld) [#/Vol] 3.81 10*6/uL Low 3.90-5.20 [facility] Comment on above: Order Comment: Speci men Type: BLOOD SPECIMEN [facility] Address: [facility] [address] [address] Performed By: #### 5 7021-8 #### [facility] CLIA [id number] [address] [place] [address] 14073 WBC (Bld) [#/Vol] 6.82 10*3/uL Normal 3.70-11.00 [facility] Comment on above: Order Comment: Speci men Type: BLOOD SPECIMEN Ordering Facility: [facility] Address: [facility] [place] [address] Performed By: #### 5 7021-8 #### [facility] CLIA [id number] [address] [place] [address] 06668 GESTATIONAL GLUCOSE SCREEN, 1-HOUR, 50 GRAM, NON-FASTINGon 11-20-2023 Glucose [Mass/Vol] 97 mg/dL Normal 74-134 [facility] Comment on above: Order Comment: Speci men Type: BLOOD SPECIMEN [facility] Address: [facility] [address] [place] [address] Result Comment: [facility] Congress of Obstetricians and Gynecologists (Marquez/Adrián) guidelines state a gestational diabetes mellitus positive screen is made, in women not previously diagnosed with overt diabetes, when the 1 hr plasma glucose level is equal to or above 140 mg/dL. The [facility] [employer] Ramp Supervisor and Women's Health Siler recommends a 135 mg/dL cutoff. Performed By: #### G LTGST #### [facility] CLIA [id number] [address] [place] [id number] [place] T4 Free SerPl-mCncon 024 Free T4 [Mass/Vol] 1.0 ng/dL Normal 0.9-1.7 [facility] Comment on above: Order Comment: Speci men Type: BLOOD SPECIMEN Ordering Facility: [facility] [place] Address: [facility] [address] [place] [address] Performed By: #### 3 016-3, 7 #### [facility] CLIA [id number] [facility] [address] [place] TSH SerPl-aCncon 10-22-2023 TSH Qn 4.510 m[IU]/L High 0.270-4.200 [facility] Comment on above: Order Comment: Speci men Type: BLOOD SPECIMEN Ordering Facility: [facility] [place] Address: [facility] [address] [place] [address] Result Comment: If t he patient is , TSH reference range varies by gestational period: First Trimester (weeks 9-12): 0.180-2.990 mIU/L Second Trimester: 0.110-3.980 mIU/L Third Trimester: 0.480-4.710 mIU/L Manuel Grayson et al. A Practical Approach for the Verifications and Determination of Site- and Trimester-Specific Reference Intervals for Thyroid Function tests in . Thyroid, 2019:29:3:412-420. Emanuel E, et al. 2017 Guidelines of the [place] Thyroid Association for the Diagnosis and Management of Thyroid Disease during and the . Thyroid, 2017:27:3:315-389. Performed By: #### 3 016-3, 3024-7 #### [facility] CLIA [id number] [address] [place] [id number] [place] CBC W Auto Diff Bldon 2023 Hematocrit (Bld) [Volume fraction] 40.1 % Normal 36.0-46.0 [facility] Comment on above: Order Comment: Speci men Type: BLOOD SPECIMEN Ordering Facility: [facility] Address: , , Performed By: #### 5 7021-8 #### [facility] CLIA [id number] [address] [place] [address] 25168 Hemoglobin (Bld) [Mass/Vol] 13.4 g/dL Normal 11.5-15.5 [facility] Comment on above: Order Comment: Speci men Type: BLOOD SPECIMEN Ordering Facility: [facility] Address: , , Performed By: #### 5 7021-8 #### [facility] CLIA [id number] [address] [place] [address] 77652 Platelets (Bld) [#/Vol] 148 10*3/uL Low 150-400 [facility] Comment on above: Order Comment: Speci men Type: BLOOD SPECIMEN Ordering Facility: [facility] Address: , , Performed By: #### 5 7021-8 #### [facility] CLIA [id number] [address] [place] [address] 50767 CBC W Auto Differential pane l (Bld)on 08-08-2023 Basophils (Bld) [#/Vol] 10*3/uL Normal <0.11 [facility] Comment on above: Order Comment: Speci men Type: BLOOD SPECIMEN Ordering Facility: [facility] Address: , , Performed By: #### 5 7021-8 #### [facility] CLIA [id number] [address] [place] [address] 75721 Basophils/100 WBC (Bld) 0.3 % Normal [facility] Comment on above: Order Comment: Speci men Type: BLOOD SPECIMEN Ordering Facility: [facility] Address: , , Performed By: #### 5 7021-8 #### [facility] CLIA [id number] [address] [place] [address] 10607 Differential cell count method Nom (Bld) Auto Normal [facility] Comment on above: Order Comment: Speci men Type: BLOOD SPECIMEN Ordering Facility: [facility] Address: , , Performed By: #### 5 7021-8 #### [facility] CLIA [id number] [address] [place] [address] 28217 Eosinophils (Bld) [#/Vol] 0.06 10*3/uL Normal <0.46 [facility] Comment on above: Order Comment: Speci men Type: BLOOD SPECIMEN Ordering Facility: [facility] Address: , , Performed By: #### 5 7021-8 #### [facility] CLIA [id number] [address] [place] [address] 45258 Eosinophils/100 WBC (Bld) 0.9 % Normal [facility] Comment on above: Order Comment: Speci men Type: BLOOD SPECIMEN Ordering Facility: External [facility] Address: , , Performed By: #### 5 7021-8 #### [facility] CLIA [id number] [address] [place] [address] 62642 Erythrocyte distribution width (RBC) [Ratio] 13.7 % Normal 11.5-15.0 [facility] Comment on above: Order Comment: Speci men Type: BLOOD SPECIMEN Ordering Facility: External [facility] Address: , , Performed By: #### 5 7021-8 #### [facility] CLIA [id number] [address] [place] [address] 58738 Immature granulocytes (Bld) [#/Vol] 10*3/uL Normal <0.10 [facility] Comment on above: Order Comment: Speci men Type: BLOOD SPECIMEN Ordering Facility: External [facility] Address: , , Performed By: #### 5 7021-8 #### [facility] CLIA [id number] [address] [place] [address] 76328 Immature granulocytes/100 WBC (Bld) 0.3 % Normal [facility] Comment on above: Order Comment: Speci men Type: BLOOD SPECIMEN Ordering Facility: [facility] Address: , , Performed By: #### 5 7021-8 #### [facility] CLIA [id number] [address] [place] [address] 93941 Lymphocytes (Bld) [#/Vol] 1.67 10*3/uL Normal 1.00-4.00 [facility] Comment on above: Order Comment: Speci men Type: BLOOD SPECIMEN Ordering Facility: External [facility]mitter Address: , , Performed By: #### 5 7021-8 #### [facility] CLIA [id number] [address] [place] [address] 99506 Lymphocytes/100 WBC (Bld) 24.9 % Normal [facility] Comment on above: Order Comment: Speci men Type: BLOOD SPECIMEN Ordering Facility: External Submitter Address: , , Performed By: #### 5 7021-8 #### [facility] CLIA [id number] [address] [place] [address] 53897 MCH (RBC) [Entitic mass] 31.1 pg Normal 26.0-34.0 [facility] Comment on above: Order Comment: Speci men Type: BLOOD SPECIMEN Ordering Facility: External Submitter Address: , , Performed By: #### 5 7021-8 #### [facility] CLIA [id number] [address] [place] [address] 91447 MCHC (RBC) [Mass/Vol] 33.4 g/dL Normal 30.5-36.0 [facility] Comment on above: Order Comment: Speci men Type: BLOOD SPECIMEN Ordering Facility: External [facility]mitter Address: , , Performed By: #### 5 7021-8 #### [facility] CLIA [id number] [address] [place] [address] 11757 MCV (RBC) [Entitic vol] 93.0 fL Normal 80.0-100.0 [facility] Comment on above: Order Comment: Speci men Type: BLOOD SPECIMEN Ordering Facility: [facility] Address: , , Performed By: #### 5 7021-8 #### [facility] CLIA [id number] [address] [place] [address] 27805 Monocytes (Bld) [#/Vol] 0.50 10*3/uL Normal <0.87 [facility] Comment on above: Order Comment: Speci men Type: BLOOD SPECIMEN Ordering Facility: External [facility]mitter Address: , , Performed By: #### 5 7021-8 #### [facility] CLIA [id number] [address] [place] [address] Monocytes/100 WBC (Bld) 7.5 % Normal [facility] Comment on above: Order Comment: Speci men Type: BLOOD SPECIMEN Ordering Facility: [facility]mitter Address: , , Performed By: #### 5 7021-8 #### [facility] CLIA [id number] [address] [place] [address] 06080 Neutrophils (Bld) [#/Vol] 4.44 10*3/uL Normal 1.45-7.50 [facility] Comment on above: Order Comment: Speci men Type: BLOOD SPECIMEN Ordering Facility: External Submitter Address: , , Performed By: #### 5 7021-8 #### [facility] CLIA [id number] [address] [place] [address] 56959 Neutrophils/100 WBC (Bld) 66.1 % Normal [facility] Comment on above: Order Comment: Speci men Type: BLOOD SPECIMEN Ordering Facility: External Submitter Address: , , Performed By: #### 5 7021-8 #### [facility] CLIA [id number] [address] [place] [address] 51523 Nucleated RBC (Bld) [#/Vol] 10*3/uL Normal <0.01 [facility] Comment on above: Order Comment: Speci men Type: BLOOD SPECIMEN Ordering Facility: External Submitter Address: , , Performed By: #### 5 7021-8 #### [facility] CLIA [id number] [address] [place] [address] 15146 Nucleated RBC/100 WBC (Bld) [Ratio] 0.0 /100 WBC Normal [facility] Comment on above: Order Comment: Speci men Type: BLOOD SPECIMEN Ordering Facility: External Submitter Address: , , Performed By: #### 5 7021-8 #### [facility] CLIA [id number] [address] [place] [address] 12073 Platelet mean volume (Bld) [Entitic vol] 12.1 fL Normal 9.0-12.7 [facility] Comment on above: Order Comment: Speci men Type: BLOOD SPECIMEN Ordering Facility: External Submitter Address: , , Performed By: #### 5 7021-8 #### [facility] CLIA [id number] [address] [place] [address] 28716 RBC (Bld) [#/Vol] 4.31 10*6/uL Normal 3.90-5.20 [facility] Comment on above: Order Comment: Speci men Type: BLOOD SPECIMEN Ordering Facility: External Submitter Address: , , Performed By: #### 5 7021-8 #### [facility] CLIA [id number] [address] [place] [address] 95224 WBC (Bld) [#/Vol] 6.71 10*3/uL Normal 3.70-11.00 [facility] Comment on above: Order Comment: Speci men Type: BLOOD SPECIMEN Ordering Facility: External Submitter Address: , , Performed By: #### 5 7021-8 #### [facility] CLIA [id number] [address] [place] [address] 94366 HBV surface Ag Ser Qlon 07-20 HBV surface Ag Ql (S) Negative Normal Negative [facility] Comment on above: Order Comment: Speci men Type: BLOOD SPECIMEN Ordering Facility: [facility] [place] Address: [facility] [address] [place] [address] Performed By: #### 3 016-3, 3024-7 #### [facility] CLIA [id number] [address] [place] [address] [place] HCV Ab Ser Qlon 08-08-2023 HCV Ab Ql (S) Negative Normal Negative [facility] Comment on above: Order Comment: Speci men Type: BLOOD SPECIMEN Ordering Facility: External Submitter Address: , , Result Comment: The result suggests no evidence of active infection with Hepatitis C virus. Should recent infection be suspected, repeat testing may be considered 4-6 weeks after this draw. Performed By: #### 1 6128-1 #### [facility] CLIA [id number] [address] [place] [address] [place] HIV 1&2 AB/AG Screen (P24 AG )on 08-08-2023 HIV 1&2 AB/AG Non-Reactive [facility] HIV 1+2 Ab IA Qlon HIV 1 and 2 Ab IA.rapid Nom (S/P/Bld) Normal [facility] Comment on above: Order Comment: Speci men Type: BLOOD SPECIMEN Ordering Facility: [facility] Address: [facility] [address] [place] [address] Result Comment: Test not indicated. Performed By: #### 3 016-3, 3024-7 #### [facility] CLIA [id number] [address] [place] [address] [place] HIV 1+2 Ab+HIV1 p24 Ag IA Ql Non-Reactive Normal Nonreactive [facility] Comment on above: Order Comment: Speci men Type: BLOOD SPECIMEN [facility] Address: [facility] [address] [place] [address] Performed By: #### 3 016-3, 3024-7 #### [facility] CLIA [id number] [address] [place], [place] [id number] [place] HIV immunoassay testing algorithm interpretation (S/P/Bld) [Interp] Normal [facility] Comment on above: Order Comment: Speci men Type: BLOOD SPECIMEN [facility] Address: [facility] [address] [place] [address] Result Comment: No e vidence of HIV-1 [...] or diagnoses. Performed By: #### 3 016-3, 3023-7 #### [facility] CLIA [id number] [address] [place] [address] [place] HbA1c (Bld)on 08-08-2023 Average glucose Estimated from glycated hemoglobin (Bld) [Mass/Vol] 105 mg/dL Normal [facility] Comment on above: Order Comment: Speci men Type: BLOOD SPECIMEN Ordering Facility: [facility] [place] Address: [facility] [address] [place] [address] Result Comment: eAG: (Estimated average glucose) is a calculated value from HgbA1c and is retail wireless sales representative of the average blood glucose level in the last 2-3 month period. Performed By: #### 3 016-3, 7 #### [facility] CLIA [id number] [address] [place] [address] [place] HbA1c (Bld) [Mass fraction] 5.3 % Normal 4.3-5.6 [facility] Comment on above: Order Comment: Speci men Type: BLOOD SPECIMEN Ordering Facility: [facility] [place] Address: [facility] [address] [place] [address] Result Comment: [place] Diabetes Association guidelines indicate that patients with HgbA1c in the range 5.7-6.4% are at increased risk for development of diabetes, and intervention by lifestyle modification may be beneficial. HgbA1c greater or equal to 6.5% is considered diagnostic of diabetes. Performed By: #### 3 016-3, 3024-7 #### [facility] CLIA [id number] [address] [place] [address] [place] Hepatitis B surface antigeno n 08-08-2023 Hepatitis B Surface Antigen Negative [facility] No Panel Informationon 08-07 [facility] RPR Ser Qlon 08-08-2023 Reagin Ab RPR Ql (S) Non-Reactive Normal Nonreactive [facility] Comment on above: Order Comment: Tammy mares Type: BLOOD SPECIMEN Ordering Facility: External Submitter Address: , , Result Comment: Rapi d plasma reagin (RPR) test detects non-treponemal antibodies. RPR may be reactive in a variety of infectious and non-infectious conditions. Correlation with clinical picture and with treponemal antibody results is required for final interpretation. Performed By: #### 5 7021-8 #### [facility] CLIA [id number] [address] [place] [address] 28718 RUBELLA IGG ANTIBODYon 08-07 RUBELLA IGG AB, QUAL Positive Normal Positive [facility] Comment on above: Order Comment: Tammy mares Type: BLOOD SPECIMEN Ordering Facility: External Submitter Address: , , Result Comment: The result suggests recent or past exposure to Rubella virus or history of Rubella vaccination. Positive result may also be seen due to presence of passively-transferred antibodies. Please correlate with patient's history. Performed By: #### R UBIGG #### [facility] CLIA [id number] [address] [place] [address] [place] Rubella IGG immune statuson 08-08-[address] IgG Positive [facility] Syphilis Total(Unknown Syphi lis Status)on 08-08-2023 Syphilis Non-Reactive [facility] Health TYPE + SCREENon 08-08-2023 ABO A Normal [facility] Comment on above: Order Comment: Tammy mares Type: BLOOD SPECIMEN Ordering Facility: External Submitter Address: , , Performed By: #### 5 7021-8 #### [facility] CLIA [id number] [address] [place] [address] HISTORICAL AB SCR STATUS Negative Normal [facility] Comment on above: Order Comment: Tammy mares Type: BLOOD SPECIMEN Ordering Facility: External Submitter Address: , , Performed By: #### 5 7021-8 #### [facility] CLIA [id number] [address] [place] [address] Rh Nom (Bld) Positive Normal [facility] Comment on above: Order Comment: Speci men Type: BLOOD SPECIMEN Ordering Facility: External Submitter Address: , , Performed By: #### 5 7021-8 #### [facility] CLIA [id number] [address] [place] [address] TYPE AND SCREEN EXPIRATION 08/11/2023 23:59 Normal [facility] Comment on above: Order Comment: Speci men Type: BLOOD SPECIMEN Ordering Facility: External Submitter Address: , , Performed By: #### 5 7021-8 #### [facility] CLIA [id number] [address] [place] [address] Type and screenon 08-08-2023 Abo/Rh(D) Positive [facility] Drug Screen, Urineon 024 Amphetamine/Metham phetamine Negative [facility] Barbiturate Screen Urine Negative [facility] Benzodiazepine Screen, Urine Negative [facility] Cocaine Metabolite Negative [facility] Mdma Negative [facility] Methadone,Meconium Negative [facility] Opiate Quantitative Urine Negative [facility] Oxycodone Negative [facility] Phencyclidine Negative [facility] Thc Marijuana, Urine Negative [facility] XR Pelvis and Hip - [...] any questions regarding this interpretation, please call [phone]. If you are unable to reach us at the number above, please feel free to contact [facility] eRadiology at [phone]. DIVISION OF RADIOLOGY * * *Final Report* [...] hip are unremarkable. DIVISION OF RADIOLOGY Provider, [facility] - 02/20/2023 [...] any questions regarding this interpretation, please call [phone]. If you are unable to reach us at the number above, please feel free to contact [facility] eRadiology at [phone]. [facility] Radiology Study observation (narrative) [facility] XR Pelvis and Hip - right AP and Lateral frogOrdered By: Ccf Provider on 02-20-[address] [facility] CBC W Auto Differential pane l (Bld)on 11-15-2022 Basophils (Bld) [#/Vol] 0.04 10*3/uL <0.11 k/uL [facility] Basophils/100 WBC (Bld) 0.8 % [facility] Differential cell count method Nom (Bld) Auto [facility] Eosinophils (Bld) [#/Vol] 0.11 10*3/uL <0.46 k/uL [facility] Eosinophils/100 WBC (Bld) 2.1 % [facility] Erythrocyte distribution width (RBC) [Ratio] 13.7 % 11.5 - 15.0 % [facility] Hematocrit (Bld) [Volume fraction] 46.7 % High 36.0 - 46.0 % [facility] Hemoglobin (Bld) [Mass/Vol] 15.6 g/dL High 11.5 - 15.5 g/dL [facility] Immature granulocytes (Bld) [#/Vol] <0.10 k/uL [facility] Immature granulocytes/100 WBC (Bld) 0.2 % [facility] Lymphocytes (Bld) [#/Vol] 1.77 10*3/uL 1.00 - 4.00 k/uL [facility] Lymphocytes/100 WBC (Bld) 33.7 % [facility] MCH (RBC) [Entitic mass] 31.8 pg 26.0 - 34.[address] [facility] MCHC (RBC) [Mass/Vol] 33.4 g/dL 30.5 - 36.0 g/dL [facility] MCV (RBC) [Entitic vol] 95.3 fL 80.0 - 100.[address] [facility] Monocytes (Bld) [#/Vol] 0.64 10*3/uL <0.87 k/uL [facility] Monocytes/100 WBC (Bld) 12.2 % [facility] Neutrophils (Bld) [#/Vol] 2.68 10*3/uL 1.45 - 7.50 k/uL [facility] Neutrophils/100 WBC (Bld) 51.0 % [facility] Nucleated RBC (Bld) [#/Vol] <0.01 k/uL [facility] Nucleated RBC/100 WBC (Bld) [Ratio] 0.0 /[address] [facility] Platelet mean volume (Bld) [Entitic vol] 11.3 fL 9.0 - 12.[address] [facility] Platelets (Bld) [#/Vol] 154 10*3/uL 150 - 400 k/uL [facility] RBC (Bld) [#/Vol] 4.90 10*6/uL 3.90 - 5.2 0 m/uL [facility] WBC (Bld) [#/Vol] 5.25 10*3/uL 3.70 - 11. 00 k/uL [facility] CBC W Auto Differential pane l (Bld)on 08-09-2022 Basophils (Bld) [#/Vol] 0.03 10*3/uL <0.11 k/uL [facility] Basophils/100 WBC (Bld) 0.6 % [facility] Differential cell count method Nom (Bld) Auto [facility] Eosinophils (Bld) [#/Vol] 0.05 10*3/uL <0.46 k/uL [facility] Eosinophils/100 WBC (Bld) 0.9 % [facility] Erythrocyte distribution width (RBC) [Ratio] 13.6 % 11.5 - 15.0 % [facility] Hematocrit (Bld) [Volume fraction] 42.0 % 36.0 - 46.0 % [facility] Hemoglobin (Bld) [Mass/Vol] 13.5 g/dL 11.5 - 15.5 g/dL [facility] Immature granulocytes (Bld) [#/Vol] <0.10 k/uL [facility] Immature granulocytes/100 WBC (Bld) 0.4 % [facility] Lymphocytes (Bld) [#/Vol] 1.57 10*3/uL 1.00 - 4.00 k/uL [facility] Lymphocytes/100 WBC (Bld) 29.0 % [facility] MCH (RBC) [Entitic mass] 30.5 pg 26.0 - 34.[address] [facility] MCHC (RBC) [Mass/Vol] 32.1 g/dL 30.5 - 36.0 g/dL [facility] MCV (RBC) [Entitic vol] 94.8 fL 80.0 - 100.[address] [facility] Monocytes (Bld) [#/Vol] 0.47 10*3/uL <0.87 k/uL [facility] Monocytes/100 WBC (Bld) 8.7 % [facility] Neutrophils (Bld) [#/Vol] 3.27 10*3/uL 1.45 - 7.50 k/uL [facility] Neutrophils/100 WBC (Bld) 60.4 % [facility] Nucleated RBC (Bld) [#/Vol] <0.01 k/uL [facility] Nucleated RBC/100 WBC (Bld) [Ratio] 0.0 /[address] [facility] Platelet mean volume (Bld) [Entitic vol] 11.1 fL 9.0 - 12.[address] [facility] Platelets (Bld) [#/Vol] 145 10*3/uL Low 150 - 400 k/uL [facility] RBC (Bld) [#/Vol] 4.43 10*6/uL 3.90 - 5.2 0 m/uL [facility] WBC (Bld) [#/Vol] 5.41 10*3/uL 3.70 - 11. 00 k/uL [facility] XR Pelvis and Hip - right AP and Lateral frogon 08-01-2022 IMPRESSION: 1. Stable sclerotic lesion of the subtrochanteric RIGHT femur. 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 Transcribe Date/Time: Aug 01 2022 11:54A Dictated by: JUSTIN LORENZANA MD This examination was interpreted and the report reviewed and electronically signed by: JUSTIN LORENZANA MD on Apr 13 2023 11:56AM EST Thank you for allowing us to participate in the care of your patient. Should there be any questions regarding this interpretation, please call [phone]. If you are unable to reach us at the number above, please feel free to contact [facility] at [phone]. DIVISION OF RADIOLOGY * * *Final Report* [...] in the interval. DIVISION OF RADIOLOGY Provider, [facility] - 08/01/2022 * * *Final Report* [...] any questions regarding this interpretation, please call [phone]. If you are unable to reach us at the number above, please feel free to contact [facility] eRadiology at [phone]. [facility] Radiology Study observation (narrative) [facility] XR Pelvis and Hip - right AP and Lateral frogOrdered By: Ccf Provider on 08-01-[address] [facility] Ambulatory Visit Summaryon 0 05-26-2022 Ambulatory [...] Up with CHELSEA KRAUS DO When: Where: [facility] [address] [place] [id number]- Medications What How Much When Why Instructions New amoxicillin (amoxicillin 500 mg Cap) 1 Capsules By Mouth Every 12 hours Strep pharyngitis Duration: 10 Days Pickup at [facility] Unchanged biotin Contact prescribing physician [...] physician if questions or concerns Pharmacy Information [facility]: [address] [facility] [place], [place] [id number] [phone] Allergies No Known Allergies Problems Ongoing - [...] these instructions at home: Medicines ? Take heal-tuh-dqhuqhl and prescription medicines only as told by [...] drinking cup (more content not included)... 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 No gveq-jjq-abtxzgx medications today. Review of Systems PHQ Score [...] day(s), # 20 cap(s), Refills(s) 0, Pharmacy: [facility] 1985, 172, cm, 05/26/22 [...] Acute pharyngitis, unspecified) Ordered: Rapid Strep POC 17424 Follow-up With When Contact Information CHELSEA KRAUS DO [facility] [address] [place] [address]- Additional Instructions: Patient Education Strep Throat, Adult, Dmkw-lg-Szwq BMI for Adults Problem List/Past Medical History [...] Strep POC Result: Positive (05/26/22 09:56:00) [facility] Comment on above: Result Comment: Elec [...] these instructions at home: Medicines ? Take mgfv-alr-dvaudgk and prescription medicines only as told by [...] 09/23/2008 Document Revised: 06/25/2019 Document Reviewed: 06/25/2019 [employer] Patient Education ? 2020 [employer] Nutrition BMI for Adults Body mass index (BMI) is a number that is calculated from a person's weight and height. BMI may help to estimate how much of a person's weight is composed of fat. BMI can help identify those who may be (more content not included)... [facility] Coding Summary.on 02-26-2022 Coding Summary. [id number] Gh0bW w+PGhlYWQ+EB9IHKLxH23zmZB paC7UX3vISN0CBAKBLXBEZG1P KB8ucQU6CZzwP2JagdLe SnwsbJBnCG62KFg4EFD0uEbyD OnikG4hvVEoQ2y6IuWePV49qF 71IHhbKXQeQjW0CeHaywsyvGN y X2tnNzQhxNTlVwr+PHRhYmxlI HdpZHRoPScxMDAlJyBzdHlsZT 2xVa9nOAHuPRCpgYghhDYwFfZ j w7etEIReJQuyOD7xmVuiM8Sax CX4HCBnk6w8Ps49yOL+PHRkIH H4wPrrQCehs153IyTdo3wnWSX 3 iRVxMGfhLCM6L08xp2X3PUZhU RIoKBN1lVB2wF8hbHhyhbgnC0 OjmVNmHcK2MSE9oTEvkV3bsWj n hlyzxH2rVhn+G87DLL5YMYESJ V5QVvx4R4EsXeswqAH+PC90YW PhNL52uQTzwBBgv7zdyVt2BfW w ZHZqUIH2oYtxGEgca1MdSOQvX 07baGBvg3D5UTYdkLiecGLjZh YewVM6fY7aXNjbtgqtg7qykzs n Wxlbs1vcvj70sX90E85lDApmP KOhUPH4FQAqXWQmnPgpjk9rnG 9wIi8+CSqql0vwz9zgwYe2BfV w PCWrdaLfjPecWBP4h3LpMm11T 8XwlWiev2RjMym8jv18aIPiq3 Z4vTV0SGijOURspW6eSRqaRwU 6 MMAdNbTkoI73fEGnQFooDw1dk GdomYmqFG1pYFTcwqmsIWRorF 2cDWKplXRwyHlrPW1oKZGxfkd m e794MaMeNQK1ZMIwuMZtE9Iab P5nVcBmDPXvGJRqJ2BwdSRuDM hgH218TCnaKdF0WHHkciYcQ4C s QPYjlFdsEvX6t4V9Wc5Pd2Lgp rosXID0UTfuANQtZfQ8ZoGzTa U5F6KeJyi4LGIgiMlgWU4fU5B h BIMelpmfbjiuqMM6DLOeHWMjz O66ySYwWMquJa2uy3I2v454LT MtJBLhpD35Cp4ioXsgOZMcuLR U qY0qmdmzs3lridddEePeSPUiT Pq2FEh9QIEdcUedNfVmKWA4Hp A8XJS6bSSfgJ2kcPqiicqnjE1 w Oyc+F18nxY0uOVB3DBS1iggyY WKveqLoKF08KT72C6VvGqhooZ FibGU+ASSnolPgrXfqNQ5wKkK j d8qge9YvDFfsD0BeLMSpIJemC ee4NOSfNLD2qIH2qO4tNDSnFN sgp8K3lOR5X0LvetXrzn9co7p s SPWyTBdhQ43ahIYgy2N2UQJff YS3WFQddEniDqTruD47Rgn+PG KxiPjlc8IfLnxjs5ple5zqeUv 9 CrPmEEYazeFajGbrBHZ3v5KtN x49Y52aRSngBBGdRJVuEEBdTX CokVfcau2uvV5jMl9+PGNvbCB 3 tOZ1cT7fPVCeCnD6QPukC575V sCfzTUlVjdae2loz8avsTx8Xu WdSJZelhSvdOufMQM1q0SqGh6 8 L58qVObrJKBrIVItNDExJRFso Yegpb6fzG9zCv5+EC6ip4nuvr 52iR71kFX+DBBvGJD6hIgdFQo w DORtsQ1wPKxnIzY9OZCcMsAbv G48xUHoWPfaXi7xdWyrlLcvPL 4gKNFnvcnoo953EyPwr5xaXQO w fRAxDDwgTSU1K99pp7I8UWFoD QDrYEL2oPV4mX7pyEsgndebqD GrqBjhxyIbxNkkHZnbYLlnU90 6 IHRvcDsnPlBhdGllbnQgTmFtZ Wu0X5WuLpq0HADmaFmqBD8xhB PfQXsxYh1ivLxetLidFY3eUMI p ukzzy908BuOls4tmAGJbuAPlK HcdGTB7Z67dv5A2PGUlJIZyNA Z7oLF6fM3aqFpcyijqnYWqfKn g pyAorAsyAUudIQfzS324XIDfe LlsTgAtpkPbSHWttBI7QM25DX 47hOPrv5F5rZY0R6VmFFZrmlb t ofvltOB6CGZtMUYefD44Bu9yu UviLa6oGITbJTY5NHWwgKYzJ1 UtzV6zXiLwYCOmUZFyC0CzzEY t PUtoC171DLrlLlI1GOBwxuRvO 2ZgTSWqbLoeAjV8y2G4Fl8NR7 K2GR43WR78jWFsh4R3cNP9N5S h LDKscmwdrmwnuMD8YBRzFCNqc Q44Xe2kiMqqXe3hOVVwETA0DM RvwHYhB8QkpE3yPwGlLUAaBSN w H2TxhHLlZBkuV237YCjhDvM2W DBzvtPrS0BpOVMpfObdSsZ6c5 W6Hm0DENl8CG76LK69fETmk3D 5 jEJ5E6OrVCLzmwhvnpqgfXT0U FKsQXNvyC16Zh9wrQcaUn7gQL AeWCA9ZHXfzQKwO5TqwU6nCbN j HSIrZGOpG4UmkUZqLQgjS167X UovLwH1QVTmlzUhY9XvJANhhI xrJwW1e2B5Uz7XQAVxLH68BAL 5 oVI7ZZ79CS19L3XpXfauhJZbz +PHRhYmxlIHdpZHRoPScxMD CeEmNonKmgFC9oKg0gTCVwAMZ v bSjhwCWiMrVdo0pkSQIaIGvnU N4xgAfbP9NhwKY7FRIcu7w5Iu 55Q40pM9OfbRH+XGHzgMV0sNF 0 rO3lElUmTpC5LZujG804YiHly DKhZnexx1dns3apdEy4AyX7JG QxmzClhUbyWTP5z8KzDr11J35 s IHdpZHRoPSIxNSUiIHZhbGlnb x5pkL6vPa4+BYLedOB6lXE2uQ 7eFmOvIbI4IYusZ879EtHghBD v Fgxov2jbz6tusRx7EwCcLERxi vGvmDbnKND1l7JnVv93I5OxqV xpt5IbIbw8zx13nHSfr4A9fCR 9 Q4NsKGDrfwqxbPWfcVqtVX9kU NTekxyyOCQpxV7wJGOrD1p2Mg DtFqG2NLkrF8FwgtI5GZZzfAJ g FTfgMGF6T58vq8Y3OVCaMCJeC XY4oHZ6rC4iqJqefaqyhNTzqC tumdAjkVsuWLblPMnpC904WWQ v cTmeASMtmE6iRWDmkIJfdKsfH R0cHIShymmtRhhGNGxTJMwANq uyHHCBKC41A8BaWcf2WJVszFo s SY2dmWPbNQirEr3znCpztLbdY A1jELNmvyqcPUFrzP4dPVHdcM JqnLafXH8aTPXqicxjw588KdG x WPJ5SOKtdYRmZ8WmmW8vFbJzJ ISvMNQnZ7OsgNZrVKtzA394GM qkSfS3OGYupiCnX5AjPKAlyYv u NbC2p7G4Tc8pKU9pOW8cBQywH K02NL65kTWys8O2iPZ9M8ZeXJ JmyrgyhliveWY3OPGtQWJsmC2 7 pVIqGJcrWf8ep4U7f145EMYiY GBfpV17Ru6cwPwjCFDcnLMQfK 3nhzxus7lkpverSaDtCOItWKd 0 KMy3LROqpEunDyZrMPY8PiS4Z XG4kNNhgR6tfTidhjisoX4iOb c+IbAcFJUcjhJ6F8KbJoy9QWO z xMhuTL4lbIDxITbxPr0bhUazv UtpBM9yMACqtgvoQKAooY6nVU CyiCLelRocGF0gEPIktajev57 0 VxOkUJV5TQMwbXOaZ1UowA0cC bRuLWGfNPAnX2MlwQEiGJtaH9 02DOpgYoC0KKPdegRgV2AfAAR s tItmHfT3r2D2Cp8HWJ6xmEK0Y 3MuWmq0ZLVsdWvzYJ1fqDFsWN kaEa3ngGcybJxpCA0gQFArjyn w EJNsiD0nFWIkmMVijXdyCS2vG RSgabusd234YvAvGJP4XPIhdL SyJ1PbkW6aXlIcDSTkEQXoW2F l oUWxNFnhH167CFqmJqY2FZShu bKoF7PhYBMmlFzgJjG8o2I5Ff 5MhJImN5GlF5a0R3AmZgltzIS + MA37OUVuFT59bCYpyRPdw6paq Bo1OcGfDLVqPBG6mCbcXXcmh5 IxXNIxQ23itUXgs8J4LPUzkJw h eNVbIeCrpRT4aE6vUPvarvpgt 3htdkibKmrbd6caim45hO00W8 9sIHdpZHRoPSIzMCUiIHZhbGl n mx0srX8bSv6+ADLmhXB4zFK4e V6jTfJfNqT4ZYvwT429DaEmuZ XzFbdyp8tqq1qdzUl6PtPgVWC g coPekDmqRCP4x7SpGz17U29xF HdpZHRoPSIyMCUiIHZhbGlnbj 4wjT9uOt1+PB5tu7wuuy66dO2 8 dHI+IFEtLMC9rIvqTAgqOGIaz J6lBXzlXfJ4GNAlQzMumR29eT NtHMctKj3plYgwuWcyGW2oLCH p ylrhv445EvGyd1vhLFGeqSSaP SkuPHQ4K52zz3D9DGQjMAIoLZ R0iAC4pR0djSfumnztrGTnsZd g gtXymVyoARyrWEflL302HHVal RztXhIyrNUfW7etpaZVRN2oVd wvdGQ+TBJaNMB3vLowZKqoIYW k cO9tFIUvN0m1JsFsRqO9MMysT 7UrrdE2GENkxHLfJIQrsPMVkC 0dxzrxi8ddgbjsZqWsLUBxAEb 0 PRf8SFHmwHdmCcLkJQU7NgZ7I FA3wFSrpB4ljDkigqeocB3yVv c+RklOOjwvdGQ+BWMtCEU2gLh l LKtxGVPatH4eKUGeF3e0KiBnY zM0NSyiM9NrqcH6YFFsjCXqOZ QwdRDXsC3udlzmi9pqykrcLjO w EJCuHRj6ZQh2QLIgbThaQqTuP KT8QdI6NQM5iYVbeE8fqXnmls basT2zHws+TVJOOjwvdGQ+PHR k POI0mPhbVTldIESnfD8kOAHjL 3y8WtZkVlB0FJzpO9TbibD6AP ZykNFzAQJbxYVQdE5ghxvtm2h v dbodWhKaBRJfSPo1ROe1IYGbt XzuAdTgNON0OgK9YSO2qTYwgS 9utScjbmisqM1sTpz+ICX8PHC 6 ZG89PX86R2XuJadycPExvFU+P HRhYmxlIHdpZHRoPScxMDAlJy EblPusDB5mTb3eAHJjIXPljLj h cHNl (more content not included)... [facility] Discharge Instructionson Discharge Instructions [id number] [facility] ED Clinical Summaryon 2021 ED Clinical Summary [place] [id number] ED Clinical Summary Person Information Name: JESSEE ALMODOVAR/[facility] Age: 32 Years : 1990 Sex: Female Language: Cuban PCP: Marital Status: Phone: [phone] Visit Id: Visit Reason: Foot pain-swelling; HURT [...] 11:07:01 02/23/2022 11:07:01 ADDRESS: [address] [place] [id number] PHYS DOC NOTES: MEDICAL INFORMATION: Prescriptions Given: PATIENT EDUCATION INFORMATION: Instructions: Foot Sprain; How to Use Cold Therapy, Klwh-hb-Mgib; Elastic Bandage and RICE Therapy Follow up: With: Address: When: CHELSEA KRAUS [employer], [address] [place] [address] [employer] (1) In 3 days 02/26/2022 Comments: Follow-up with your primary care provider in 3 to 5 days. If symptoms worsen, do not improve, or new symptoms arise please report back to emergency department for further evaluation. DIAGNOSIS: Sprain of left foot [facility] ED Note-Physicianon 02-24-20 ED Note-Physician Basic [...] Information CHELSEA KRAUS In 3 days 02/26/2022 [facility] [employer] [address] [place] [address]- Business (1) Additional Instructions: Follow-up with your primary care provider in 3 to 5 days. If symptoms worsen, do not improve, or new symptoms arise please report back to emergency department for further evaluation. Patient Education Foot Sprain How to Use Cold Therapy, Difl-qe-Mzvs Elastic Bandage and RICE Therapy Attestation Patient seen and evaluated by the physician manufacturing assistant. Attending physician was present in the emergency department and supervised care. This visit was performed by both the physician and an APC. I performed all aspects of the MDM as documented. This report was transcribed using voice recognition software. Every effort was made to ensure accuracy, however, inadvertently computerized foster winder mistakes may be present. Appropriate healthcare PPE [...] medications Ho (more content not included)... [facility] Comment on above: Result Comment: Elec [...] This may take several hours. ? Take arar-rgu-vhsajzo and prescription medicines only as told by [...] is no (more content not included)... [facility] ED Patient Summaryon 022 ED Patient Summary (Inserted Image. Kelsi ble to display) [place] [id number] Patient Discharge Instructions Person Information Name: JESSEE ALMODOVAR Age: 32 Years Arrival Date: 02/23/2022 09:05:13 Discharge Diagnosis: Sprain of left foot Primary Care Physician: Provider Information Primary Provider: Chayo Anne DO [employer] Technician:None The exam and treatment you received in the Emergency Department were for an urgent problem and are not intended as complete care. It is important that you follow up with a doctor, nurse practitioner, or physician?s manufacturing assistant for ongoing care. If your symptoms become worse or you do not improve as expected and you are unable to reach your usual health care provider, you should return to the Emergency Department. We are available 24 hours a day. JESSEE ALMODOVAR has been given the following list of patient education materials, prescriptions and follow-up instructions: Follow-up Instructions: With: Address: When: [employer], [address] [place], [place] [id number] [facility] () In 3 days 02/26/2022 [...] Foot Sprain; How to Use Cold Therapy, Kikg-kq-Tnnb; Elastic Bandage and RICE Therapy A MESSAGE TO ALL PATIENTS REGARDING OPIOIDS PRESCRIPTION OPIOIDS: WHAT YOU NEED TO KNOW Prescription opioids can be used to help relieve clmvoscu-qm-oitslv pain and are often prescribed following a [...] Visit www.cdc.gov/ (more content not included)... [facility] XR Foot 3+ Views Lefton 11-0 [...] DO Transcribed by: SUZY Technologist: TIM Olguin [facility] XR Pelvis and Hip - [...] any questions regarding this interpretation, please call [phone]. If you are unable to reach us at the number above, please feel free to contact [facility] at [phone]. DIVISION OF RADIOLOGY * * *Final Report* [...] any questions regarding this interpretation, please call [phone]. If you are unable to reach us at the number above, please feel free to contact [facility] eRadiology at [phone]. [facility] XR Pelvis and Hip - right AP and Lateral frogOrdered By: Ccf Provider on 02-19-[address] [facility] XR Pelvis and Hip - right AP and Lateral frogon 02-18-2022 Radiology Study observation (narrative) [facility] CT ABD/PELV W CONon 02-12-20 CT [...] by: EMELIA STEWART Date: 2022-02-11 07:[address] [facility] US PELVIS AND TRANSVAGon US PELVIS AND [...] JENNIFER HARTLEY Date: 2022-01-08 14:12 Normal [facility] UA DIP, URINE (POC)on 2021 BILIRUBIN UA (POCT) Negative Negative [facility] CLARITY UA (POCT) [facility] COLOR UA (POCT) Yellow [facility] GLUCOSE UA (POCT) Negative Negative mg/dL [facility] HEMOGLOBIN/BLOOD UA (POCT) Trace-intact Abnormal Negative [facility] KETONE UA (POCT) Negative Negative mg/dL [facility]) Small Abnormal Negative [facility] NITRITE UA (POCT) Negative Negative [facility] PH UA (POCT) 6.5 4.5 - 8.[address] [facility] Protein Ql (U) Negative Negative mg/dL [facility] SPECIFIC GRAVITY UA (POCT) 1.015 1.005 - 1.[address] [facility] UROBILINOGEN UA (POCT) 0.2 E.U./dL Normal E.U./dL [facility] Large Joint Arthro/Inj: R gr eater trochanteric bursa [facility] Vital Signs Date Time Vital Sign Value Performing Clinician Facility 11-30-2024 14:55-0400 Body mass index (BMI) [Ratio] 24.68 kg/m2 [employer] Work Phone: [facility] 11-30-2024 14:55-0400 Body weight 82.56 kg [employer] Work Phone: [facility] 11-30-2024 14:55-0400 Diastolic blood pressure 84 mm[Hg] [employer] Work Phone: [facility] 11-30-2024 14:55-0400 Systolic blood pressure 138 mm[Hg] [employer] Work Phone: [facility] 10-26-2024 09:24-0400 Body height 182.9 cm Guillaume Pedro DO Work Phone: [facility] 10-26-2024 09:24-0400 Body mass index (BMI) [Ratio] 24.47 kg/m2 Guillaume Pedro DO Work Phone: [facility] 10-26-2024 09:24-0400 Body weight 81.83 kg Guillaume Pedro DO Work Phone: [facility] 10-26-2024 09:24-0400 Diastolic blood pressure 78 mm[Hg] Guillaume Pedro DO Work Phone: [facility] 10-26-2024 09:24-0400 Systolic blood pressure 122 mm[Hg] Guillaume Pedro DO Work Phone: [facility] 04-06-2024 09:32-0500 Body mass index (BMI) [Ratio] 26.46 kg/m2 Franny Girard PA Work Phone: [facility] 04-06-2024 09:32-0500 Body weight 89.72 kg Franny Girard PA Work Phone: [facility] 04-06-2024 09:32-0500 Diastolic blood pressure 80 mm[Hg] Franny Madan PA Work Phone: [facility] 04-06-2024 09:32-0500 Systolic blood pressure 120 mm[Hg] Franny Girard PA Work Phone: [facility] 02-18-2024 10:23-0400 Body mass index (BMI) [Ratio] 30.42 kg/m2 Franny Girard PA Work Phone: [facility] 02-18-2024 10:23-0400 Body weight 103.15 kg Franny Madan PA Work Phone: [facility] 02-18-2024 10:23-0400 Diastolic blood pressure 68 mm[Hg] Franny Girard PA Work Phone: [facility] 02-18-2024 10:23-0400 Systolic blood pressure 112 mm[Hg] Franny Girard PA Work Phone: [facility] 02-10-2024 13:39-0400 Body mass index (BMI) [Ratio] 29.83 kg/m2 Guillaume Pedro DO Work Phone: [facility] 02-10-2024 13:39-0400 Body weight 101.15 kg Guillaume Pedro DO Work Phone: [facility] 02-10-2024 13:39-0400 Diastolic blood pressure 70 mm[Hg] Guillaume Pedro DO Work Phone: [facility] 02-10-2024 13:39-0400 Systolic blood pressure 120 mm[Hg] Guillaume Pedro DO Work Phone: [facility] 01-27-2024 10:17-0400 Body mass index (BMI) [Ratio] 29 kg/m2 Franny Hager PA Work Phone: [facility] 01-27-2024 10:17-0400 Body weight 98.34 kg Franny COSTELLO Work Phone: [facility] 01-27-2024 10:17-0400 Diastolic blood pressure 60 mm[Hg] Franny Hager PA Work Phone: [facility] 01-27-2024 10:17-0400 Systolic blood pressure 110 mm[Hg] Franny Hager PA Work Phone: [facility] 01-13-2024 09:37-0400 Body mass index (BMI) [Ratio] 28.87 kg/m2 Guillaume Pedro DO Work Phone: [facility] 01-13-2024 09:37-0400 Body weight 97.89 kg Guillaume Pedro DO Work Phone: [facility] 01-13-2024 09:37-0400 Diastolic blood pressure 64 mm[Hg] Guillaume Pedro DO Work Phone: [facility] 01-13-2024 09:37-0400 Systolic blood pressure 110 mm[Hg] Guillaume Pedro DO Work Phone: [facility] 12-30-2023 09:41-0400 Body mass index (BMI) [Ratio] 27.96 kg/m2 Guillaume Pedro DO Work Phone: [facility] 12-30-2023 09:41-0400 Body weight 94.8 kg Guillaume Pedro DO Work Phone: [facility] 12-30-2023 09:41-0400 Diastolic blood pressure 72 mm[Hg] Guillaume Pedro DO Work Phone: [facility] 12-30-2023 09:41-0400 Systolic blood pressure 120 mm[Hg] Guillaume Pedro DO Work Phone: [facility] 12-16-2023 09:36-0400 Body mass index (BMI) [Ratio] 27.69 kg/m2 Guillaume Pedro DO Work Phone: [facility] 12-16-2023 09:36-0400 Body weight 93.89 kg Guillaume Pedro DO Work Phone: [facility] 12-16-2023 09:36-0400 Diastolic blood pressure 74 mm[Hg] Guillaume Pedro DO Work Phone: [facility] 12-16-2023 09:36-0400 Systolic blood pressure 118 mm[Hg] Guillaume Pedro DO Work Phone: [facility] 11-13-2023 11:34-0400 Body height 185.4 cm Catrina Hernandez MD Work Phone: [facility] 11-13-2023 11:34-0400 Body mass index (BMI) [Ratio] 26.31 kg/m2 Catrina Hernandez MD Work Phone: [facility] 11-13-2023 11:34-0400 Body weight 90.45 kg Catrina Hernandez MD Work Phone: [facility] 11-13-2023 11:34-0400 Diastolic blood pressure 76 mm[Hg] Catrina Hernandez MD Work Phone: [facility] 11-13-2023 11:34-0400 Systolic blood pressure 122 mm[Hg] Catrina Hernandez MD Work Phone: [facility] [employer] [facility] 10-16-2023 10:27-0400 Body mass index (BMI) [Ratio] 25.33 kg/m2 Hector Mancera MD Work Phone: [facility] [employer] [facility] 10-16-2023 10:27-0400 Body weight 87.09 kg Hector Mancera MD Work Phone: [facility] [employer] [facility] 10-16-2023 10:27-0400 Diastolic blood pressure 70 mm[Hg] Hector Mancera MD Work Phone: [facility] 10-16-2023 10:27-0400 Systolic blood pressure 116 mm[Hg] Hector Mancera MD Work Phone: [facility] 02-25-2023 13:16-0500 Body height 185.4 cm Link Mckinney MD Work Phone: [facility] 02-25-2023 13:16-0500 Body weight 76.67 kg Link Mckinney MD Work Phone: [facility] 07-10-2022 15:15-0400 Body height 181.61 cm Imad Asaad Other [employer] Other 07-10-2022 15:15-0400 Body mass index (BMI) [Ratio] 24.48 kg/m2 Imad Asaad Other [employer] Other 07-10-2022 15:15-0400 Body weight 80.74 kg Imad Asaad Other [employer] Other 07-10-2022 15:15-0400 Diastolic blood pressure 78 mm[Hg] Imad Asaad Other [employer] Other 07-10-2022 15:15-0400 Systolic blood pressure 130 mm[Hg] Imad Asaad Other [employer] Other 05-26-2022 09:29-0500 Blood Pressure Location Roxanne MOSLEY [facility] 05-26-2022 09:29-0500 Body temperature 98.42 [degF] Roxanne MOSLEY [facility] 05-26-2022 09:29-0500 Diastolic blood pressure 78 mm[Hg] Roxanne MOSLEY [facility] 05-26-2022 09:29-0500 Heart rate 115 /min Roxanne MOSLEY [facility] 05-26-2022 09:29-0500 SaO2% (BldA) [Mass fraction] 98 % Roxanne MOSLEY [facility] 05-26-2022 09:29-0500 Systolic blood pressure 120 mm[Hg] Roxanne MOSLEY [facility] 02-23-2022 09:10-0400 Body temperature 98.42 [degF] Chayo Anne [facility] 02-23-2022 09:10-0400 Diastolic blood pressure 67 mm[Hg] Chayo Anne [facility] 02-23-2022 09:10-0400 Heart rate 88 /min Chayo Mcneile [facility] 02-23-2022 09:10-0400 Respiratory rate 18 /min Chayo Anne [facility] 02-23-2022 09:10-0400 SaO2% (BldA) [Mass fraction] 98 % Chayo Anne [facility] 02-23-2022 09:10-0400 Systolic blood pressure 141 mm[Hg] Chayo Mcneile [facility] Encounters Encounter Date Encounter Type Care Provider Facility Start: 12-22-2024 End: 12-22-2024 Clinisync Result Encounter Guillaume Pedro DO Work Phone: [facility] Unsolicited Start: 12-22-2024 End: 12-22-2024 Clinisync Result Encounter Guillaume Pedro DO Work Phone: [facility] External [facility] Unsolicited Start: 11-30-2024 End: 11-30-2024 ambulatory GUILLAUME PEDRO Not Available Start: 11-30-2024 End: 11-30-2024 Office outpatient visit 15 minutes Guillaume Pedro DO Work Phone: [facility]ENNINGS Comment on above: Low grade squamous i ntraepithelial lesion on cytologic smear of cervix (LGSIL); Pap smear with atypical squamous cells, cannot exclude high grade squamous intraepithelial lesion (ASC-H) Start: 11-30-2024 End: 11-30-2024 Bamboo flowsheet Guillaume Pedro DO Work Phone: [facility] Start: 11-30-2024 End: 11-30-2024 Bamboo flowsheet Guillaume Pedro DO Work Phone: [facility] Start: 10-26-2024 End: 10-26-2024 Bamboo flowsheet [...] Start: 07-16-2024 End: 07-16-2024 ambulatory ANUPAMA BROWN Facility:[facility] Start: 04-06-2024 End: 04-06-2024 care visit Franny [...] End: 02-05-2024 ambulatory ANUPAMA BROWN Facility:[facility] Start: 01-27-2024 End: 01-27-2024 Bamboo flowsheet Franny [...] constipation type Start: 01-19-2024 End: 01-19-2024 [facility] Start: 01-13-2024 End: 01-13-2024 Bamboo flowsheet Guillaume [...] o f Start: 01-05-2024 End: 01-05-2024 ambulatory ANUPAMA BROWN Facility:[facility] Start: 12-30-2023 End: 12-30-2023 Bamboo flowsheet Guillaume [...] [facility] Start: 12-16-2023 End: 12-16-2023 ambulatory GUILLAUME PEDRO Not Available Start: 12-16-2023 End: 12-16-2023 flow sheet Guillaume Pedro DO Work Phone: [facility] Comment on above: Second trimester pre gnancy; Thyroid disease ([facility]/HCC) Start: 12-08-2023 End: 12-08-2023 ambulatory GUILLAUME R PEDRO Facility:[facility] Start: 11-20-2023 End: 11-20-2023 ambulatory FRANNY HAGER Facility:[facility] Start: 11-13-2023 End: 11-13-2023 Office outpatient visit 25 minutes Catrina Hernandez MD Work Phone: [facility] Comment on above: 24 weeks gestation o f (Primary Dx); Hypothyroidism affecting , antepartum; Generalized anxiety disorder; Hypertension affecting in second trimester; Macrosomia of fetus affecting management of mother in second trimester, single or unspecified fetus Start: 10-22-2023 End: 10-22-2023 ambulatory GUILLAUME R PEDRO Facility:[facility] Start: 10-16-2023 End: 10-16-2023 Office consultation new/estab patient 60 min Hector Mancera MD Work Phone: [facility] [place] Comment on above: Hypertension affecti ng in first trimester (Primary Dx); Attention deficit hyperactivity disorder (ADHD), predominantly inattentive type; Generalized anxiety disorder; Encounter for follow-up ultrasound of anatomy Start: 10-16-2023 End: 10-16-2023 ambulatory [facility] Start: 09-16-2023 End: 09-16-2023 Chart abstracting Hector Mancera MD Work Phone: [facility]- [facility] at [facility] Start: 08-08-2023 End: 08-08-2023 ambulatory GUILLAUME R PEDRO Facility:[facility] Start: 06-04-2023 End: 06-04-2023 ambulatory ASIF GRIFFIN [facility] Start: 06-02-2023 End: 06-02-2023 Phys/qhp telephone evaluation 5-10 min Guillaume Vasquez DO Work Phone: [facility] Comment on above: Irregular menses (Pr imary Dx) Start: 05-28-2023 Chart abstracting Guillaume Vasquez DO Work Phone: [facility] Start: 05-02-2023 End: 05-02-2023 [facility]ulatory [facility] Start: 05-02-2023 End: 05-02-2023 Office outpatient visit 25 minutes Asif Schaefer NURSE EMERGENCY-SAGGER PREPARER Work Phone: [facility] Comment [...] 07-10-2022 End: 07-10-2022 ambulatory Imad Asaad Other [employer] Other Start: 07-10-2022 Office outpatient ne w 45 minutes Imad Asaad [facility] Start: 05-26-2022 End: 05-27-2022 ambulatory Roxanne MOSLEY Facility:[facility] Start: 05-26-2022 End: 05-26-2022 Patient encounter procedure Roxannezen MOSLEY [facility] Start: 05-08-2022 End: 05-08-2022 ambulatory PRAVIN HAGER Facility: Start: 02-26-2022 End: 02-26-2022 Patient encounter procedure Link Mckinney MD Work Phone: Orthopaedics Comment on above: Lytic bone lesion of femur (Primary Dx) Start: 02-23-2022 End: 02-23-2022 Emergency department patient visit [facility] Facility:[facility] Start: 02-23-2022 End: 02-23-2022 Emergency department patient visit Chayo Dayana [facility] Start: 02-18-2022 End: 02-18-2022 Subsequent hospital [...] Nursing evaluation of patient and report Félix Nurse Yamil Mcwilliams Work Phone: Hematology/Oncology Comment on above: Dysuria (Primary Dx) Start: 10-04-2021 Orders Only Macy Jones APRN.CNP Work Phone: Hematology/Oncology Comment on above: Acute bilateral low back pain with bilateral sciatica (Primary Dx) Procedures Date Procedure Procedure Detail Performing Clinician Start: 12-22-2024 ECG 12-LEAD Guillaume FitViazi o DO Work Phone: Start: 10-26-2024 IGP,APTIMA HPV,AGE GDLN Guillaume Pedro DO Work Phone: Start: 10-26-2024 Microscopic observat ion [Identifier] in Cervix by Cyto stain Guillaume Pedro DO Work Phone: Start: 10-26-2024 Cytp cerv/vag auto t hin layer prep mnl screen Guillaume Pedro DO Work Phone: Start: 02-24-2024 ALL CBC [...] micrscp Guillaume Vasquez DO Work Phone: Start: 10-21-2023 Microscopic observat ion [Identifier] in Cervix by Cyto stain Guillaume Vasquez DO Work Phone: Start: 08-08-2023 End: 08-08-2023 Antibody screen Hector Mancera MD Work Phone: Comment on above: Order Comment: Speci men Type: BLOOD SPECIMEN Ordering Facility: External Submitter Address: , , Performed By: #### [id number] #### [facility] CLIA [id number] [address] [place] [address] Start: 08-08-2023 Blood count complete automated Not [...] Arthrocentesis aspir &/inj major jt/bursa w/o us Codi Cronin PA-C Work Phone: Start: 02-20-2023 Radex hip unilateral with pelvis 2-3 views Roni Magaña MD Work Phone: Start: 08-08-2022 Adult depression scr eening assessment Asif Schaefer NURSE EMERGENCY-SAGGER PREPARER Work Phone: Start: 08-01-2022 Radex hip unilateral [...] Td Vaccines (4 - Td or Tdap) [facility] Start: 01-04-2030 Urine microalbumin profile DTa P,Tdap,Td Vaccine (4 - Td or Tdap) [facility] Start: 10-20-2028 Screening for malign ant neoplasm of cervix [facility] Start: 10-27-2027 Screening for malign ant neoplasm of cervix Pap Smear [facility] Start: 10-20-2026 Screening for malign ant neoplasm of cervix Pap Smear [facility] Start: 11-01-2025 End: 11-01-2025 Patient encounter procedure [facility] Start: 01-11-2025 End: 01-11-2025 Patient encounter procedure 01/11/2025 10:20 AM EDT Office Visit [facility] [address] [place] [phone] Guillaume Vasquez DO [address] [place] [address] [facility] Start: 12-20-2024 Influenza vaccination Influenza Vacc ine (#1) [facility] Start: 11-12-2024 Adult BMI Screening Adult BMI Screen ing [facility] Start: 11-12-2024 Tobacco Screening Tobacco Screening [facility] Start: 10-26-2024 End: 10-26-2024 Patient encounter procedure [facility] Comment on above: Arrived Start: 10-15-2024 Adult BMI Screening Adult BMI Screen ing [facility] Start: 10-15-2024 Tobacco Screening Tobacco Screening [facility] Start: 06-04-2024 Tobacco Screening Tobacco Screening [facility] Start: 04-06-2024 End: 04-06-2024 ambulatory 04/06/2024 9:30 AM EST Visit [facility] [address] [place] [phone] Franny Hager PA [address] [place] [address] [facility] Start: 03-10-2024 Tobacco Screening Tobacco Screening [facility] Start: 02-23-2024 Screening for malign ant neoplasm of cervix [facility] Start: 02-18-2024 End: 02-18-2024 Patient encounter procedure 02/18/2024 9:40 AM EDT Routine [facility] [address] [place] [phone] Franny Hager, PA [address] [place] [address] [facility] Start: 02-10-2024 End: 02-09-2025 Strep B DNA probe, amplification Strep B DNA probe, amplification Lab Routine Third trimester Expected: 02/10/2024 (Approximate), Expires: 02/09/2025 [facility] Work Phone: Comment on above: Expected: 02/10/2024 (Approximate), Expires: 02/09/2025 Start: 02-10-2024 End: 02-10-2024 Patient encounter procedure 02/10/2024 1:00 PM EDT Routine [facility] [address] [place] [phone] Guillaume Vasquez DO [address] [place], [place] [id number] [facility] Start: 01-27-2024 End: 01-27-2024 Patient encounter procedure 01/27/2024 9:50 AM EDT Routine [facility] [address] [place] [phone] Franny Hager PA [address] [place] [address] [facility] Start: 01-13-2024 End: 01-13-2024 Patient encounter procedure 01/13/2024 9:20 AM EDT Routine [facility] [address] [facility] [place] [phone] Guillaume Vasquez, DO [address] [place] [address] [facility] Start: 01-08-2024 End: 01-08-2024 Telemedicine consultation with patient 01/08/2024 8:30 AM EDT Telemedicine Maternal- Medicine at [place] [id number] [place] [phone] Catrina Hernandez MD [address] [facility] 1[address] [place] [address] Maternal- Medicine at [facility] Start: 01-01-2024 End: 01-01-2024 Patient encounter procedure 01/01/2024 10:20 AM EDT Routine [facility] [address] [facility] [place] [phone] Guillaume Vasquez, DO [address] [place] [address] [facility] Start: 12-30-2023 End: 12-30-2023 Patient encounter procedure 12/30/2023 9:20 AM EDT Routine [facility] [address] [place] [phone] Guillaume Vasquez, DO [address] [place] [address] Arrived [facility] Comment on above: Arrived Start: 12-21-2023 Covid-19 Vaccine ( season) Covid-19 Vaccine ( season) [facility] Start: 12-21-2023 Covid-19 Vaccine ( season) Covid-19 Vaccine ( season) [facility] Start: 12-21-2023 Influenza vaccination C [facility] Start: 12-16-2023 End: 12-15-2024 US for US OB SCAN FOR GROWTH Imaging Routine Thyroid disease (CMS/HCC) Expected: 12/16/2023 (Approximate), Expires: 12/15/2024 [facility] Work Phone: Comment on above: Expected: 12/16/2023 (Approximate), Expires: 12/15/2024 Start: 11-13-2023 End: 11-13-2023 Telemedicine consultation with patient 11/13/2023 11:30 AM EDT [facility]medicine [facility] [place] [address] [phone] Catrina Hernandez MD [address] [place] [address] [facility] Start: 11-13-2023 End: 11-13-2023 Patient encounter procedure 11/13/2023 11:00 AM EDT Appointment [facility] [address] [address] [facility] Start: 10-16-2023 End: 10-15-2024 US MFM with [...] 10/16/2023 11:00 AM EDT Telemedicine [facility] [place] [address] [place] [phone] Hector Mancera MD [address] [place] [address] [facility] Start: 10-16-2023 End: 10-16-2023 Patient encounter procedure 10/16/2023 9:30 AM EDT Appointment [facility] [address] [place] [address] [facility] Start: 08-09-2023 Adult BMI Screening Adult BMI Screen [facility] Start: 08-09-2023 [facility] Start: 05-29-2023 End: 05-29-2023 Patient encounter procedure 05/29/2023 8:10 AM EST Office Visit [facility] [address] [place] [address] Guillaume Vasquez, DO [address] [place] [address] Irregular menses [facility] Comment on above: Irregular menses Start: 12-20-2022 Covid-19 Vaccine ( season) Covid-19 Vaccine ( season) [facility] Start: 12-20-2022 Influenza vaccination INFLUENZA (#1) [facility] Start: 11-15-2022 End: 01-15-2023 Comprehensive metabolic 2000 panel - Serum or Plasma [facility] Work Phone: Comment on above: Expected: 11/15/2022 , Expires: 01/15/2023 Start: 11-15-2022 End: 01-15-2023 Lipid 1996 panel - Serum or Plasma [facility] Work Phone: Comment on above: Expected: 11/15/2022 , Expires: 01/15/2023 Start: 11-15-2022 End: 01-15-2023 T4/FTI/T4U [facility] Work Phone: Comment on above: Expected: 11/15/2022 , Expires: 01/15/2023 Start: 11-15-2022 End: 01-15-2023 Thyrotropin [Units/volume] in Serum or Plasma [facility] Work Phone: Comment on above: Expected: 11/15/2022 , Expires: 01/15/2023 Start: 08-26-2022 End: 03-28-2023 XR HIP GENERAL 3V PELV/AP/LAT RIGHT XR HIP GENERAL 3V PELV/AP/LAT RIGHT Radiology Routine Lytic bone lesion of femur Expected: 08/26/2022, Expires: 03/28/2023 [facility] Work Phone: Comment on above: Expected: 08/26/2022 , Expires: 03/28/2023 Start: 08-09-2022 End: 10-09-2022 25-hydroxyvitamin D3 [Mass/volume] in Serum or Plasma [facility] Work Phone: Comment on above: Expected: 08/09/2022 , Expires: 10/09/2022 Start: 04-21-2022 DEPRESSION ASSESSMENT DEPRESSION ASS ESSMENT [facility] Start: 12-20-2021 Influenza vaccination INFLUENZA (#1) [facility] Start: 12-06-2021 End: 02-05-2022 Thyrotropin [Units/volume] in Serum or Plasma [facility] Work Phone: Comment on above: Expected: 12/06/2021 , Expires: 02/05/2022 Start: 12-06-2021 End: 02-05-2022 Thyroxine (T4) free [Mass/volume] in Serum or Plasma [facility] Work Phone: Comment on above: Expected: 12/06/2021 , Expires: 02/05/2022 Start: 12-06-2021 End: 02-05-2022 Triiodothyronine (T3) [Mass/volume] in Serum or Plasma [facility] Work Phone: Comment on above: Expected: 12/06/2021 , Expires: 02/05/2022 Start: 11-08-2021 End: 01-08-2022 Choriogonadotropin ( test) [Presence] in Urine [facility] Work Phone: Comment on above: Expected: 11/08/2021 , Expires: 01/08/2022 Start: 11-08-2021 End: 01-08-2022 URINALYSIS, REFLEX MICROSCOPIC [facility] Work Phone: Comment on above: Expected: 11/08/2021 , Expires: 01/08/2022 Start: 04-21-2021 DEPRESSION ASSESSMENT DEPRESSION ASS ESSMENT [facility] Start: 2021 HPV TESTING HPV TESTING [facility] Start: 10-13-2020 COVID-19 VACCINE (3 - Booster for Moderna series) COVID-19 VACCINE (3 - Booster for Moderna series) [facility] Start: 07-10-2020 COVID-19 VACCINE (3 - Booster for Moderna series) COVID-19 VACCINE (3 - Booster for Moderna series) [facility] Start: 07-10-2020 COVID-19 VACCINE (3 - Moderna series) COVID-19 VACCINE (3 - Moderna series) [facility] Start: 02-08-2012 PAP TESTING PAP TESTING [facility] Start: 02-08-2012 Screening for malign ant neoplasm of cervix [facility] Start: 2010 Urine microalbumin profile DTA P,TDAP,TD (1 - Tdap) [facility] Start: 2009 Adult BMI Follow Up Plan Adult BMI Follow Up Plan [facility] Start: 2009 Anxiety Screening Anxiety Screening [facility] Start: 2009 Depression Screening Depression Scre ening [facility] Start: 2009 HEPATITIS C SCREENING HEPATITIS C SC REENING [facility] Start: 2009 HIV SCREENING HIV SCREENING [facility] Start: 2003 Adult depression scr eening assessment DEPRESSION SCREENING [facility] Start: 1997 Pneumococcal vaccination [facility] Start: 1991 HEPATITIS B (1 of 3 - 3-dose series) HEPATITIS B (1 of 3 - 3-dose series) [facility] Bacteria identified in Urine by Culture URINE CULTURE Microbiology Routine Pelvic pain 11/08/2021 11:36 AM EDT [facility] Work Phone: Cytology Cervical or vaginal smear or scraping study Pap Smear Pathology and Cytology Routine Well woman exam with routine gynecological exam Ordered: 10/26/2024 [facility] Work Phone: Comment on above: Ordered: 10/26/2024 [...] exam with routine gynecological exam Ordered: 10/26/2024 [facility] Comment on above: Ordered: 10/26/2024 End: 03-26-2024 MRI HIP WO IVCON RIGHT MRI HIP WO IVCON RIGHT Radiology Routine Greater trochanteric bursitis of right hip Chronic pain of right hip Pain of right hip Bone lesion 1 Occurrences starting 02/25/2023 until 03/26/2024 [facility] Work Phone: Comment on above: 1 Occurrences starti ng 02/25/2023 until 03/26/2024 Thyrotropin [Units/v olume] in Serum or Plasma TSH Lab Routine Thyroid disease ([facility]/HCC) Ordered: 04/06/2024 [facility] Work Phone: Comment on above: Ordered: 04/06/2024 End: 03-18-2024 XR HIP GENERAL 3V PELV/AP/LAT RIGHT XR HIP GENERAL 3V PELV/AP/LAT RIGHT Radiology Routine Lytic bone lesion of femur 1 Occurrences starting 02/17/2023 until 03/18/2024 [facility] Work Phone: Comment on above: 1 Occurrences starti ng 02/17/2023 until 03[facility] Immunization Date Immunization Notes Care Provider Fa jane 02-19-2024 influenza virus vaccine, unspecified formulation Guillaume Velasquezo DO Work Phone: [facility] 01-28-2023 influenza virus vaccine, unspecified formulation Roni Magaña MD Work Phone: [facility] [facility] 02-14-2022 influenza virus vaccine, unspecified formulation Link Mckinney MD Work Phone: [facility] 01-18-2021 influenza virus vaccine, unspecified formulation Macy Jones APRN.SAGGER PREPARER Work Phone: [facility] 03-01-2020 influenza, seasonal, injectable Imad Asaad Other [employer] Other 02-03-2016 influenza, injectable, quadrivalent, contains preservative Imad Asaad Other [employer] Other NEGATED: Highlighted row has not occurred!03-02-2019 influenza, seasonal, injectable Imad Asaad Other [employer] Other Payers Date Payer Category Payer Private Health Insurance [employer] [id number] 2018 Unknown [id number]. [id number] 1991 Unknown [id number] 2.16.840.1.573708.3.579.2. 593 1991 Unknown [id number] 2.16.840.1.170255.3.579.2. 593 1991 Unknown [id number] 2.16.840.1.937741.3.579.2. 593 1991 Unknown [id number] 2.16.840.1.671267.3.579.2. 727 1991 Unknown [id number] 2.16.840.1.475966.3.579.2. 727 1991 Unknown [id number] 2.16.840.1.222177.3.579.2. 1286 1991 Unknown [id number] 2.16.840.1.188634.3.579.2. 1286 1991 Unknown [id number] 2.16.840.1.670057.3.579.2. 1286 1991 Unknown [id number] 2.16.840.1.000108.3.579.2. 1286 1991 Unknown [id number] 2.16.840.1.733595.3.579.2. 1259 1991 Unknown [id number] 2.16.840.1.940758.3.579.2. 1259 1991 Unknown [id number] 2.16.840.1.563240.3.579.2. 1259 1991 Unknown [id number] 2.16.840.1.283988.3.579.2. 1259 1991 Unknown [id number] 2.16.840.1.248324.3.579.2. 1259 1991 Unknown [id number] 2.16.840.1.165472.3.579.2. 1259 1991 Unknown [id number] 2.16.840.1.626927.3.579.2. 1259 1991 Unknown [id number] 2.16.840.1.274777.3.579.2. 1259 1991 Unknown [id number] 2.16.840.1.904111.3.579.2. 1259 1991 Unknown [id number] 2.16.840.1.713481.3.579.2. 1259 1959 Unknown [id number] Social History Date Type Detail Facility Tobacco smoking stat [facility] Tobacco smoking consumption unknown [facility] Work Phone: Start: 1990 Sex Assigned At Not on file C [facility] Start: 10-29-2021 End: 02-26-2022 Exposure to SARS-CoV-2 (event) Not sure [facility] Start: 03-21-2013 End: 10-21-2023 Tobacco smoking status Ex-smoker (finding) [facility] Comment on above: quit 01/2013 Start: 02-26-2022 End: 12-30-2023 Sex Assigned At Female [facility] History of tobacco use Current smoker [facility] History of tobacco use Cigarette Smoker C [facility] History of tobacco use Passive smoker [facility] Start: 02-11-2022 End: 10-21-2023 Tobacco use and exposure Smokeless tobacco non-user [facility] Start: 02-26-2022 End: 09-16-2023 Alcohol intake Current drinker of alcohol (finding) [facility] Tobacco smoking status Never [facility] Start: 02-26-2022 End: 12-30-2023 History of Social function [facility] Start: 02-25-2023 End: 05-28-2023 Tobacco smoking status TXIS Occasional tobacco smoker [facility] Start: 05-28-2023 Alcohol Comment caffeine: 2-3 cups per day coffee; soda [facility] Start: 01-13-2024 End: 11-30-2024 Alcoholic beverage intake Ex-drinker (finding) [facility] Start: 06-08-2023 [facility] Start: 08-08-2022 Alcohol Comment on the weekends [facility] Functional Status Date Assessment Result Facility 05-26-2022 Functional Status N/A [facility] 11-05-2022 Functional Status N/A [facility] Clinical Notes 08-20-2015 to 11-30-2024 Wildazen Francis LPN - 11/30/2024 2:40 PM Domingo Francis LPN - 10/26/2024 9:00 AM Jean Marie Hager, PRAVIN - 04/06/2024 9:30 AM PRAVIN Jacques - [...] on 12/31/[address] Vasquez at [facility]. MEDICATIONS Current Outpatient Medications Medication Instructions Adderall [...] nursing note reviewed. Exam conducted with a mirror inspector present. Vitals: Estimated body mass index [...] reviewed, and patient is to proceed to [facility]. Follow Up: Patient is to follow up between 1-2 weeks post operative to assess proper healing and recovery from procedure. Documented by Wilda Francis LPN on behalf of: Guillaume Vasquez DO documented in this encounter [facility] 10-26-2024 History of Presen t illness Narrative [...] nursing note reviewed. Exam conducted with a mirror inspector present. Vitals: Estimated body mass index [...] them. Patient can also view results via [employer]. I reinforced importance of condom use for [...] documented in this encounter [facility] 04-06-2024 History of Presen t illness Narrative [...] nursing note reviewed. Exam conducted with a mirror inspector present. Vitals: Estimated body mass index [...] of: PRAVIN Dumont documented in this encounter [facility] 02-18-2024 History of Presen t illness Narrative [...] of: PRAVIN Dumont documented in this encounter [facility] 02-10-2024 History of Presen t illness Narrative [...] nursing note reviewed. Exam conducted with a mirror inspector present. Vitals: Estimated body mass index [...] documented in this encounter [facility] 01-27-2024 History of Presen t illness Narrative [...] nursing note reviewed. Exam conducted with a mirror inspector present. Vitals: Estimated body mass index [...] of: PRAVIN Dumont documented in this encounter [facility] 01-13-2024 History of Presen t illness Narrative [...] nursing note reviewed. Exam conducted with a mirror inspector present. Vitals: Estimated body mass index [...] documented in this encounter [facility] 12-30-2023 History of Presen t illness Narrative [...] nursing note reviewed. Exam conducted with a mirror inspector present. Vitals: Estimated body mass index is 27.96 kg/m as calculated from the following: Height as of 05/07/22: 6' 0.5 . Weight as of this encounter: 209 lb. BP: 120/72 Patient's last menstrual period was 05/25/2023. ASSESSMENT & PLAN ICD-10-CM 1. Third trimester Z34.93 POCT urinalysis dipstick manually resulted 2. Thyroid disease (CMS/[facility]) E07.9 3. Excessive growth affecting management of [...] for routine OB appointment. Documented by Wilda Farncis LPN on behalf of: Guillaume Vasquez DO documented in this encounter [facility] 12-16-2023 History of Presen t illness Narrative [...] nursing note reviewed. Exam conducted with a mirror inspector present. Vitals: Estimated body mass index [...] documented in this encounter [facility] 11-13-2023 History of Presen t illness Narrative [...] and the other consultants, we search on [employer] and all the available care everywhere epic I did review all the imaging studies of the patient available on EMR, ordered by the primary care physician and the other customer care voice consultant PHYSICAL EXAMINATION: BP 122/76 Ht 185.4 [...] 200 mcg daily Follow up scheduled in [facility] in 8 weeks with [facility] physician, please refer back earlier if patient develops gestational diabetes DISPOSITION: At this point the patient is in complete care of her fruit and vegetable parer. Patient does have 1 more ultrasound office visit scheduled with us Thank you for allowing me to participate in Jessee Almodovar . If there any questions please do not hesitate to contact us. Sincerely, Catrina Hernandez MD Maternal- Medicine [address] [place] [address] Video Visit via Real-time Synchronous Audiovisual Provider Location: [facility]ER[facility]- MEDICINE AT [address] [facility] [phone] Patient Location: [facility] Patient Location Wind Turbine Engineer: None Video Visit Consent Statement: I discussed [...] that there are some limitations compared to zvkb-wo-nbgf evaluations. We elected to proceed. documented in this encounter [facility] 10-16-2023 History of Presen t illness Narrative Headache/epigastric pain/blurry vision/swelling? denies Cramping/contractions? denies Abnormal vaginal discharge? denies Spotting/vaginal bleeding? denies Loss of fluid like your water may have broken? denies Cats in the home? yes Do you change the litter box? no Flu vaccine? no Genetic testing done this here or other office? none Have you been seen here at [facility] in a previous ? Yes with last Recent ER visits or hospitalizations? denies Bring blood sugar log or meter with you today? (Please bring them with you for every visit at [facility]) na Traveled outside the country in [...] and the other consultants, we search on [employer] and all the available care everywhere epic I did review all the imaging studies of the patient available on EMR, ordered by the primary care physician and the other customer care voice consultant HABITS: Patient activity no restrictions, diet [...] T4 is very low in , the infant is at risk for impaired psychomotor function [...] weeks for completion of targeted anatomy at [facility] office 3. Serial growth ultrasounds every [...] patient is in complete care of her fruit and vegetable parer. Patient does have 1 more ultrasound office visit scheduled with us Thank you for allowing me to participate in Jessee Almodovar . If there any questions please do not hesitate to contact us. Sincerely, HECTOR MANCERA MD Video Visit via Real-time Synchronous Audiovisual Provider Location: [facility]- MEDICINE AT [address] [phone] Patient Location: [facility] Patient Location Wind Turbine Engineer: None Video Visit Consent Statement: I discussed [...] that there are some limitations compared to iivy-tu-bnbf evaluations. We elected to proceed. documented in this encounter [facility] 06-02-2023 History of Presen t illness Narrative Reason for Appointment: Patient ID: Jessee Almodovar is a 33 y.o. female who presents for No chief complaint on file. Patient presents today via telephone call for a telehealth appointment. Patients Phone #: [phone] (mobile) Current Medications: has a current medication [...] or as needed. [facility] Documented by Guillaume Vasquez DO on behalf of: Guillaume Vasquez DO documented in this encounter [facility] 05-02-2023 Miscellaneous Notes [address] [place] [address] Patient: Jessee Almodovar Date of : 1990 Encounter Date: 05/02/2023 History of Present Illness/Psychiatric Review of Symptoms/Medical Review of Systems: Video Visit via Real-time Synchronous Audiovisual Provider Location: [facility] [address] [place] [address] Patient Location: patient's office in [place], [place] Video Visit Consent Statement: I discussed [...] that there are some limitations compared to dexg-ns-wple evaluations. The patient consented to the presence of additional virtual and/or in-person participants. We elected to proceed. Jessee is a 33 y.o. female, established patient, and is logged on via [employer] for a follow-up video visit. HPI: Jessee [...] Moderate episode of recurrent major depressive disorder ([facility]) Generalized anxiety disorder Attention deficit hyperactivity disorder [...] Moderate episode of recurrent major depressive disorder ([facility]) Generalized anxiety disorder Medication Changes: yes [...] Leon 05/02/23 1746 documented in this encounter [facility] 05-02-2023 Progress note Formatting of t his note is different from the original. [address] [address] [facility] [address] Patient: Jessee Almodovar Date of : 1990 Encounter Date: 05/02/2023 History of Present Illness/Psychiatric Review of Symptoms/Medical Review of Systems: Video Visit via Real-time Synchronous Audiovisual Provider Location: [facility] [address] [place] [address] Patient Location: patient's office in [place], [place] Video Visit Consent Statement: I discussed [...] that there are some limitations compared to rzfi-cd-kwai evaluations. The patient consented to the presence of additional virtual and/or in-person participants. We elected to proceed. Jessee is a 33 y.o. female, established patient, and is logged on via [employer] for a follow-up video visit. HPI: Jessee [...] Moderate episode of recurrent major depressive disorder ([facility]) Generalized anxiety disorder Medication Changes: yes [...] CNP, PMHNP-BC. BARAK De Leon 05/02/23 1746 [facility] 02-25-2023 Instructions Codi Cronin PA-C - 02/25/2023 1:56 PM EST Images from the original note were not included. MRI right hip Home exercises Continue with NSAIDS CSI right hip- may repeat in 3 months if needed documented in this encounter [facility] 02-25-2023 History of Presen t illness Narrative [...] trochanteric bursa Informed Consent Consent Obtained: Verbal Walker Protocol A moment to CARE was completed. [...] documented in this encounter [facility] 02-20-2023 History of Presen t illness Narrative [...] documented in this encounter [facility] 02-17-2023 Miscellaneous Notes Jourdan Atkins, My [...] documented in this encounter [facility] 08-01-2022 History of Presen t illness Narrative [...] documented in this encounter [facility] 07-10-2022 Evaluation note Encounter Date Diagnosis Assessment Notes Jun, Constipation (ICD-10 - K59.00) Jun, Change in bowel habits (ICD-10 - R19.4) Jun, Diarrhea (ICD-10 - R19.7) Patient to start Align probiotic. Jun, Bloating (ICD-10 - R14.0) [employer] Other 02-05-2023 Hospital Discharge instructions Patient Education 05/26/2022 10:06:58 Strep Throat, Adult, Ubsp-kc-Bgou Strep Throat, Adult Strep throat is an [...] Follow these instructions at home: Medicines Take svup-joz-jhwffby and prescription medicines only as told by [...] 09/23/2008 Document Revised: 06/25/2019 Document Reviewed: 06/25/2019 [employer] Patient Education 2020 [employer] 05/26/2022 10:06:56 BMI for Adults BMI [...] height. This can be done either in Cuban (U.[place] or metric measurements. Note that charts are available to help you find your BMI quickly and easily without having to do these calculations yourself. To calculate your BMI in Cuban ([place] measurements, your health care provider will: [...] medical problems. BMI can be measured using Cuban measurements or metric measurements. To interpret your [...] 12/17/2004 Document Revised: 03/20/2018 Document Reviewed: 02/18/2018 [employer] Patient Education 2019 [employer]. Follow Up Care 05/26/2022 09:09:50 With:CHELSEA KRAUS DO Address: [employer] [address] [place], [place] [id number]- When: Unknown [facility] 11-08-2022 History of Present [...] she has undergone a workup with her forestry supervisor. She states she underwent a CT [...] abdominal pain with planned GI followup, as cadet deck workup so far is unremarkable. Patient does [...] being sent back to Roni Magaña via [employer]TrumpITe/[employer] Nurses' Aide or Chart CC for [facility] Providers. Link Mckinney MD Manager Dairy, Orthopaedic Surgery Division of Musculoskeletal Oncology documented [facility] Evaluation + Plan note Extracted from: Title:ED Note Author:Mohan Garcia PA-C te:02/23/22 Sprain of left foot (S93.602 A: Unspecified sprain of left foot, initial encounter) Orders: Crutches Elastic Bandage Application XR Foot 3+ Views Left [facility]11-05-2022 Hospital Discharge instructions Patient Education 02/23/2022 [...] fully hardened. This may takeseveral hours. Take khae-bsq-kgcqvjq and prescription medicines only as told by [...] 09/27/2002 Document Revised: 04/11/2018 Document Reviewed: 04/11/2018 [employer] Patient Education 2020 [employer]. 02/23/2022 11:07:01 How to Use Cold Therapy, Jkko-kh-Nvlh How to Use Cold Therapy Cold therapy, [...] 09/23/2008 Document Revised: 01/04/2019 Document Reviewed: 01/04/2019 [employer] Patient Education 2020 [employer]. 02/23/2022 11:07:01 Elastic Bandage and RICE Therapy [...] limityour activities and whether you should start ranfx-dm-qgznwf exercises for your injury. Ice Ice your [...] 09/27/2002 Document Revised: 12/26/2017 Document Reviewed: 12/26/2017 [employer] Patient Education 2020 [employer]. Follow Up Care 02/23/2022 09:05:48 With:CHELSEA KRAUS Address: [employer] [address] [place], [place] [id number] Business (1) When:02/26/2022 10:46:43 Comments:Follow-up with your primary care provider in 3 to 5 days. If symptoms worsen, do not improve, or new symptoms arise please report back to emergency department for further evaluation. [facility]10-31-2022 History of Present illness Narrative* Kathrine Smith RT(Kena) - 02/18/2022 3:00 PM EDT Radiology Service [...] 18, 2022 3:09 PM [facility] Nurse Note* Lillie Smith - 11/08/2021 11:25 AM EDT UA performed as ordered. Lillie Smith documented [facility] History of Present illness Narrative* Macy Jones APRN.CNP - 10/04/2021 3:36 PM EDT Physical [facility] History general Narrative - Reported* Type Description Date Medical History Bernardo's thyroiditis Medical History Post- depression 2019 Surgical History D & C d/t miscarriage 08/2015 Surgical History LEEP 2012 Hospitalization History child [employer] Other Evaluation note* Diagnosis Acute bilateral low back pain with bilateral sciatica- Primary [facility] Diagnosis Pelvic pain- Primary [facility]* Diagnosis Dysuria- Primary documented [facility]* Diagnosis Dysuria- Primary documented [facility] Diagnosis Unspecified hypothyroidism- Primary [facility] Diagnosis Lytic bone lesion of femur- Primary [facility]* Diagnosis Moderate episode of recurrent major depressive disorder (HCC)- Primary [facility] Diagnosis Unspecified hypothyroidism- Primary Essential hypertension, malignant Lipids blood increased Other and unspecified hyperlipidemia Vegans' anemia Other vitamin B12 deficiency anemia [facility] Diagnosis Lytic bone lesion of femur- Primary [facility] Diagnosis Lytic bone lesion of femur- Primary Greater trochanteric bursitis of right hip Enthesopathy of hip region Chronic pain of right hip Chronic low back pain, unspecified back pain laterality, unspecified whether sciatica present Pain of right hip Bone lesion Disorder of bone and cartilage, unspecified [facility] Diagnosis Irregular menses- Primary Irregular menstrual cycle [facility] Diagnosis Lytic bone lesion of femur [facility] Diagnosis Lytic bone lesion of femur documented [facility] Diagnosis Lytic bone lesion of femur [facility] Diagnosis 33 weeks gestation of Third trimester state, incidental Low iron Unspecified iron deficiency anemia Nonintractable headache, unspecified chronicity pattern, unspecified headache type Constipation, unspecified constipation type documented in this encounter [facility]* Diagnosis 35 weeks gestation of Third trimester state, incidental documented in this encounter [facility]* Diagnosis Third trimester state, incidental 37 weeks gestation of [facility]* Diagnosis 6 weeks follow-up Anxiety and depression (CMS/HCC) Thyroid disease (CMS/HCC) Unspecified disorder of thyroid documented in this encounter [facility]* Diagnosis Second trimester state, incidental Thyroid disease (CMS/HCC) Unspecified disorder of thyroid [facility]* Diagnosis Third trimester state, incidental Thyroid disease (CMS/HCC) Unspecified disorder of thyroid Excessive growth affecting management of in third trimester, single or unspecified fetus Pre-existing hypertension during , antepartum, unspecified pre-existing hypertension type [facility]* Diagnosis 31 weeks gestation of [facility]* Diagnosis Attention deficit hyperactivity disorder (ADHD), predominantly 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 (CMS-HCC) Generalized anxiety disorder [facility] Diagnosis Hypertension affecting in first trimester- Primary Attention deficit hyperactivity disorder (ADHD), predominantly inattentive type Generalized anxiety disorder Encounter for follow-up ultrasound of anatomy [facility] Diagnosis 24 weeks gestation of - Primary Hypothyroidism affecting , antepartum Generalized anxiety disorder Hypertension affecting in second trimester Macrosomia of fetus affecting management of mother in second trimester, single or unspecified fetus [facility]* Diagnosis Well woman exam with routine gynecological exam Routine gynecological examination documented in this encounter [facility]* Diagnosis Low grade squamous intraepithelial lesion on cytologic smear of cervix (LGSIL) Pap smear with atypical squamous cells, cannot exclude high grade squamous intraepithelial lesion (ASC-H) documented in this encounter [facility] HealthcareHospital course Narrative No data available for this section [facility]* Attachments The following attachments cannot be sent through Care Everywhere. * Methylphenidate, ADULT (Cuban) documented in [facility] SystemInstructionsNot on file documented in this encounterProSalem City [facility] SystemInstructionsNot on file documented in this encounterProSalem City Hospital SystemInstructionsNot on file documented in this encounterProSalem City Hospital SystemProgress note No data available for this section [facility] HospitalReason for referral (narrative)* Diagnostic Procedure Only (Routine) - Pending Review Specialty Diagnoses / Procedures Referred By Bry pittman Referred To Contact XR IMAGING Diagnoses Lytic bone lesion of femur Procedures XR HIP GENERAL 3V PELV/AP/LAT RIGHT RADEX HIP UNILATERAL WITH PELVIS 2-3 VIEWS Link Mckinney MD [address] [place] [id number] Xr Imaging Referral ID Status Reason Start Date Expiration Date Visits Requested Visits Authorized [id number] Pending Review Auto-Generat ed Referral 08/26/2022 03/28/2023 1 1 [facility] (n[facility]ative[facility] Diagnostic Procedure Only (Routine) - Pending Review Specialty Diagnoses / Procedures Referred By Bry pittman Referred To Contact XR IMAGING Diagnoses Lytic bone lesion of femur Procedures XR HIP GENERAL 3V PELV/AP/LAT RIGHT RADEX HIP UNILATERAL WITH PELVIS 2-3 VIEWS Codi Cronin PA-C [address] [place] [address] Xr Imaging [id number] Referral ID Status Reason Start Date Expiration Date Visits Requested Visits Authorized [id number] Pending Review Auto-Generat ed Referral 3 03/18/2024 1 1 [facility] for referral (narrative)* Diagnostic Procedure Only (Routine) - Closed Specialty Diagnoses / Procedures Referred By Contac t Referred To Contact XR IMAGING Diagnoses Lytic bone lesion of femur Procedures XR HIP GENERAL 3V PELV/AP/LAT RIGHT RADEX HIP UNILATERAL WITH PELVIS 2-3 VIEWS Roni Magaña MD [address] [place] [address] [place] [address] Referral ID Status Reason Start Date Expiration Date V isits Requested Visits Authorized [id number] Closed Auto-Generate d Referral 02/17/2023 03/18/2024 1 1 [facility] for referral (narrative)* Diagnostic Procedure Only (Routine) - Closed Specialty Diagnoses / Procedures Referred By Contac t Referred To Contact XR IMAGING Diagnoses Lytic bone lesion of femur Procedures XR HIP GENERAL 3V PELV/AP/LAT RIGHT RADEX HIP UNILATERAL WITH PELVIS 2-3 VIEWS Link Mckinney MD [address] [place] [address] [place] [address] Referral ID Status Reason Start Date Expiration Date V isits Requested Visits Authorized [id number] Closed Auto-Generate d Referral 08/26/2022 03/28/2023 1 1 T [facility] for referral (narrative)* Diagnostic Procedure Only (Routine) - Closed Specialty Diagnoses / Procedures Referred By Contac t Referred To Contact XR IMAGING Diagnoses Lytic bone lesion of femur Procedures XR HIP GENERAL 3V PELV/AP/LAT RIGHT RADEX HIP UNILATERAL WITH PELVIS 2-3 VIEWS Roni Magaña MD [address] [place] [address] [place] [address] Referral ID Status Reason Start Date Expiration Date V isits Requested Visits Authorized [id number] Closed Auto-Generate d Referral 02/18/2022 03/20/2023 [address] [facility] Reason for Referral Specialty Diagnoses / Procedures Referred By Contac t Referred To Contact [facility] Diagnoses Acute bilateral low back pain with bilateral sciatica Procedures CONSULT TO PHYSICAL THERAPY PHYSICAL THERAPY EVALUATION HIGH COMPLEX 45 MINS Macy Jones, NURSE EMERGENCY.SAGGER PREPARER [address] [place] [address] [facility] [address] [place] [address] Referral ID Status Reason Start Date Expiration Date Visits Requested Visits Authorized [id number] Pending Review Auto-Generat ed Referral 10/04/2021 10/04/2022 1 1 Specialty Diagnoses / Procedures Referred By Contac t Referred To Contact MR IMAGING Diagnoses Greater trochanteric bursitis of right hip Chronic pain of right hip Pain of right hip Bone lesion Procedures MRI HIP WO IVCON RIGHT MRI ANY JT LOWER EXTREM W/O CONTRAST MATRL Codi Cronin, LIZZY [address] [place] [address] Mr Imaging [id number] Referral ID Status Reason Start Date Expiration Date Visits Requested Visits Authorized [id number] Authorized Auto-Generat ed Referral 02/25/2023 03/26/2024 1 1 Specialty Diagnoses / Procedures Referred By Spencerac t Referred To Contact Maternal and Medicine Diagnoses Hypertension affecting in first trimester Attention deficit hyperactivity disorder (ADHD), predominantly inattentive type Generalized anxiety disorder Encounter for follow-up ultrasound of anatomy Procedures US MFM with or without consult Hector Mancera MD [address] [place] [address] [facility] [address] [place] [address] Referral ID Status Reason Start Date Expiration Date V isits Requested Visits Authorized [id number] Pending Review 10/16/2023 10/15/2024 1 1 Summary [...] or drug abuse patient.[facility] the event this information is protected by the Federal Confidentiality of Alcohol and Drug Abuse Patient Records regulations: The Federal rules restrict any use of the information to criminally investigate or prosecute any alcohol or drug abuse patient.[facility] the event this information is protected by the Federal Confidentiality of Alcohol and Drug Abuse Patient Records regulations: The Federal rules restrict any use of the information to criminally investigate or prosecute any alcohol or drug abuse patient.[facility] the event this information is protected by the Federal Confidentiality of Alcohol and Drug Abuse Patient Records regulations: The Federal rules restrict any use of the information to criminally investigate or prosecute any alcohol or drug abuse patient.[facility] the event this information is protected by the Federal Confidentiality of Alcohol and Drug Abuse Patient Records regulations: The Federal rules restrict any use of the information to criminally investigate or prosecute any alcohol or drug abuse patient.[facility] the event this information is protected by the Federal Confidentiality of Alcohol and Drug Abuse Patient Records regulations: The Federal rules restrict any use of the information to criminally investigate or prosecute any alcohol or drug abuse patient.[facility] the event this information is protected by the Federal Confidentiality of Alcohol and Drug Abuse Patient Records regulations: The Federal rules restrict any use of the information to criminally investigate or prosecute any alcohol or drug abuse patient.[facility] the event this information is protected by the Federal Confidentiality of Alcohol and Drug Abuse Patient Records regulations: The Federal rules restrict any use of the information to criminally investigate or prosecute any alcohol or drug abuse patient.[facility] the event this information is protected by the Federal Confidentiality of Alcohol and Drug Abuse Patient Records regulations: The Federal rules restrict any use of the information to criminally investigate or prosecute any alcohol or drug abuse patient.[facility] the event this information is protected by the Federal Confidentiality of Alcohol and Drug Abuse Patient Records regulations: The Federal rules restrict any use of the information to criminally investigate or prosecute any alcohol or drug abuse patient.[facility] the event this information is protected by the Federal Confidentiality of Alcohol and Drug Abuse Patient Records regulations: The Federal rules restrict any use of the information to criminally investigate or prosecute any alcohol or drug abuse patient.[facility] the event this information is protected by the Federal Confidentiality of Alcohol and Drug Abuse Patient Records regulations: The Federal rules restrict any use of the information to criminally investigate or prosecute any alcohol or drug abuse patient.[facility] Hospital[facility] the event this information is protected by the Federal Confidentiality of Alcohol and Drug Abuse Patient Records regulations: The Federal rules restrict any use of the information to criminally investigate or prosecute any alcohol or drug abuse patient.[facility] Patient Care team informatio n (unrecognized section and content) Physics And Astronomy Professor Relationship Specialty Start Date End Date Anupama Brown DO [address] [place] [address] PCP - General Family Medicine 07/25/22 Emile Mesa MD [address] [address] Gastroenterology 07/25/22 Guillaume Vasquez DO [address] [place] [address] [employer]EROCK TOWER LOADER 07/25/22 Physics And Astronomy Professor Relationship Specialty Start Date End Date Anupama Brown DO [address] [place] [address] PCP - General Family Medicine 07/25/22 Emile Mesa MD [address] [place] [address] Gastroenterology 07/25/22 Guillaume Vasquez DO [address] [place] [place] [address] [place] [address] [employer]EROCK TOWER LOADER 07/25/22 Physics And Astronomy Professor Relationship Specialty Start Date End Date Anupama Brown DO [address] [place] [address] PCP - General Family Medicine 07/25/22 Emile Mesa MD [address] [address] Gastroenterology 07/25/22 [address] [place] [address] [employer]EROCK TOWER LOADER 07/25/22 Physics And Astronomy Professor Relationship Specialty Start Date End Date Anupama Brown DO [address] [address] PCP - General Family Medicine 07/25/22 Emile Mesa MD [address] [place] [address], [place] [address] Gastroenterology 07/25/[address] [place] [address] [employer]EROCK TOWER LOADER 07/25/22 Physics And Astronomy Professor Relationship Specialty Start Date End Date Anupama Brown MD [address] [place] [address] PCP - General Family Medicine 03/04/23 Physics And Astronomy Professor Relationship Specialty Start Date End Date Anupama Brown MD [address] [place] [address] PCP - General Family Medicine 03/04/23 Physics And Astronomy Professor Relationship Specialty Start Date End Date Anupama Brown DO [address] [place] [address] PCP - General Family Medicine 07/25/22 Emile Mesa MD [address] [place] [address], [place] [address] Gastroenterology 07/25/22 Guillaume Vasquez DO [address] [place] [address] [place] [address] Airport Ramp Supervisor 07/25/22 Physics And Astronomy Professor Relationship Specialty Start Date End Date Anupama Brown DO [address] [place] [address] PCP - General Family Medicine 07/25/22 Emile Mesa MD [address] [place] [address] [place] [address] Gastroenterology 07/25/22 Guillaume Vasquez DO [address] [place] [address] [place] [address] Airport Ramp Supervisor 07/25/22 Physics And Astronomy Professor Relationship Specialty Start Date End Date Anupama Brown MD [address] [place] [address] PCP - General Family Medicine 03/04/23 Physics And Astronomy Professor Relationship Specialty Start Date End Date Anupama Brown MD [address] [place] [address] PCP - General Family Medicine 03/04/23 Physics And Astronomy Professor Relationship Specialty Start Date End Date Anupama Brown MD [address] [place] [address] PCP - General Family Medicine 03/04/23 Physics And Astronomy Professor Relationship Specialty Start Date End Date Anupama Brown MD [address] [place] [address] PCP - General Family Medicine 03/04/23 Physics And Astronomy Professor Relationship Specialty Start Date End Date Anupama Brown MD [address] [place] [phone] PCP - General Family Medicine 03/04/23 Physics And Astronomy Professor Relationship Specialty Start Date End Date Anupama Brown MD [address] [place] [phone] PCP - General Family Medicine 03/04/23 Physics And Astronomy Professor Relationship Specialty Start Date End Date Anupama Brown MD [address] [place] [address] PCP - General Family Medicine 03/04/23 Physics And Astronomy Professor Relationship Specialty Start Date End Date Anupama Brown MD [address] [place] [address] PCP - General Family Medicine 03/04/23 Physics And Astronomy Professor Relationship Specialty Start Date End Date Anupama Brown MD [address] [place] [address] PCP - General Family Medicine 03/04/23 Physics And Astronomy Professor Relationship Specialty Start Date End Date Anupama Brown MD [address] [place] [phone] PCP - General Family Medicine 03/04/23 Physics And Astronomy Professor Relationship Specialty Start Date End Date Chelsea Kraus DO [address] [facility] [address] [place] [address], [place] [address] PCP - General Family Medicine 07/02/19 Physics And Astronomy Professor Relationship Specialty Start Date End Date Chelsea Kraus DO [address] [place] [address] PCP - General Family Medicine 07/02/19 Physics And Astronomy Professor Relationship Specialty Start Date End Date Chelsea Kraus DO [address] [place] [address] PCP - General Family Medicine 07/02/19 Physics And Astronomy Professor Relationship Specialty Start Date End Date Anupama Brown MD PCP - General Family Medicine 03/04/23 Physics And Astronomy Professor Relationship Specialty Start Date End Date Anupama Brown MD PCP - General Family Medicine 03/04/23 Physics And Astronomy Professor Relationship Specialty Start Date End Date Anupama Brown MD PCP - General Family Medicine 03/04/23 Physics And Astronomy Professor Relationship Specialty Start Date End Date Anupama Brown MD PCP - General Family Medicine 03/04/23 Physics And Astronomy Professor Relationship Specialty Start Date End Date Anupama Brown MD PCP - General Family Medicine 03/04/23 Franny Hager PA [address] [place] [address] [place] [address] PCP - Medical [employer] 07/10/18 04/20/99 Reason for Visit (unrecogniz ed section and content) Reason Comments New Pain Tumor/Mass Specialty Diagnoses / Procedures Referred By Contac t Referred To Contact Orthopedics Diagnoses Lytic bone lesion of femur Procedures CONSULT TO ORTHOPAEDICS OFFICE/OUTPATIENT NEW HIGH MDM 60-74 MINUTES Roni Magaña MD [address] [place] [address] [place] [address] Referral ID Status Reason Start Date Expiration Date V isits Requested Visits Authorized [id number] Closed PCP Requested Referral 02/18/2022 02/18/2023 1 1 Reason Comments New Pain Reason Comments Radio Gen RMP Specialty Diagnoses / Procedures Referred By Contac t Referred To Contact XR IMAGING Diagnoses Lytic bone lesion of femur Procedures XR HIP GENERAL 3V PELV/AP/LAT RIGHT RADEX HIP UNILATERAL WITH PELVIS 2-3 VIEWS Roni Magaña MD [address] [place] [address] [place] [address] [place] [address] Referral ID Status Reason Start Date Expiration Date V isits Requested Visits Authorized [id number] Closed Auto-Generate d Referral 02/17/2023 03/18/2024 1 1 Specialty Diagnoses / Procedures Referred By Contac t Referred To Contact XR IMAGING Diagnoses Lytic bone lesion of femur Procedures XR HIP GENERAL 3V PELV/AP/LAT RIGHT RADEX HIP UNILATERAL WITH PELVIS 2-3 VIEWS Link Mckinney MD [address] [facility] [address] [place] [address] Xr Imaging [id number] Referral ID Status Reason Start Date Expiration Date V isits Requested Visits Authorized [id number] Closed Auto-Generate d Referral 08/26/2022 03/28/2023 1 1 Referral ID Status Reason Start Date Expiration Date V isits Requested Visits Authorized [id number] Closed Auto-Generate d Referral 02/18/2022 03/20/2023 1 1 Reason Comments Routine Visit Reason Comments Follow-up Reason Comments mfm video visit Reason Comments Hx hypertension Hx Thyroid Diseas Reason Comments Well Women Visit Reason Comments Abnormal Pap Smear INFORMATION SOURCE (unrecogn ized section and content) DATE CREATED AUTHOR 05/08/2022 [facility] DATE CREATED AUTHOR AUTHOR'S ORGANIZ ATION 05/26/2022 [facility] DATE CREATED AUTHOR AUTHOR'S ORGANIZ ATION 05/04/2023 [facility] DATE CREATED AUTHOR AUTHOR'S ORGANIZ ATION 06/06/[address] [facility] DATE CREATED AUTHOR AUTHOR'S ORGANIZ ATION 10/17/2023 [facility] DATE CREATED AUTHOR AUTHOR'S ORGANIZ ATION 07/23/2024 [facility] DATE CREATED AUTHOR AUTHOR'S ORGANIZ ATION 12/02/2024 [facility] dical Specialists EPIC FOR RECORDS PERTAINING [...] BE BASED ON THE PRIMARY CLINICAL RECORDS. [facility] [employer] provides no warranty or guarantee of the accuracy or completeness of information in this document.
--- OUTSIDE RECORDS SUMMARY | 2024-12-31 07:38 | XMS_ITS | Encounter Summary ---
Author Organization [facility] Address [address] [place] [address] Care Team Providers Care Sprinkler Worker Name Role Phone Chhaya Ceballos MD Primary Care Provider [phone] Franny Hager Unavailable Encounter Details Date Type Department Care Team (Late st Contact Info) Description 02/23/2024 Abstract YAMILET JENNINGS [facility] [place] [address] Guillaume Vasquez DO [address], [place] [address] Social History Tobacco Use Types Packs/Day Years [...] [address] Guillaume Vasquez DO [address], [facility] 11/01/2025 9:00 AM EDT Office Visit [facility] JENN[facility] [address] [place] [address] Guillaume Vasquez DO [address] [facility] [address] [place] [address] documented as of this encounter Visit Diagnoses Not on filedocumented in this encounter Care Teams Sprinkler Worker Relationship Specialty Start Date End Date Chhaya Ceballos MD PCP - General Family Medicine 03/04/23 Franny Hager PA [address] [place] [address] PCP - Medical [place] [employer] 07/10/18 04/20/99 documented as of this encounter
--- OUTSIDE RECORDS SUMMARY | 2024-12-31 07:38 | XMS_ITS | Encounter Summary ---
Author Organization [facility] Address [address] [place] [address] Care Team Providers Care Macadam Raker Name Role Phone Chhaya Ceballos MD Primary Care Provider [phone] Franny Hager Unavailable Encounter Details Date Type Department Care Team (Late st Contact Info) Description 02/23/2024 Abstract YAMILET JENNINGS [facility] [place] [address] Guillaume Vasquez DO [address], [place] [address] Social History Tobacco Use Types Packs/Day Years [...] Office Visit YAMILET JENNINGS [address] [place] [address] Guillaume Vasquez DO [address], [facility]11 11/01/2025 9:00 AM EDT Office Visit [facility] Ketan JENNINGS [address] [place] [address] Guillaume Vasquez DO [address] [facility] [place] [address] documented as of this encounter Visit Diagnoses Not on filedocumented in this encounter Care Teams Macadam Raker Relationship Specialty Start Date End Date Chhaya Ceballos MD PCP - General Family Medicine 03/04/23 Franny Hager PA [address] [address] [place] [address] PCP - Medical [place] [employer] 07/10/18 04/20/99 documented as of this encounter
[2024-12-31 07:46] LABS: Hematocrit 44.5 % (36.0-48.0); Hemoglobin 15.2 g/dL (12.0-16.0); Immature Granulocytes Abs Auto 0.00 10^3/uL (0.00-0.03); Immature Granulocytes Pct Auto 0.0 % (0.0-0.5); Lymphocytes Absolute Auto 1.6 10^3/uL (1.2-3.8); Mean Corpuscular HGB Conc 34.2 g/dL (29.9-35.2); Mean Corpuscular Hemoglobin 32.8 pg (26.7-34.0); Mean Corpuscular Volume 95.9 fL (81.0-99.0); Platelet Count 162 10^3/uL (150-450); Red Blood Count 4.64 10^6/uL (4.20-5.40); White Blood Count 3.8 10^3/uL (4.0-11.0)
[2024-12-31 08:03] VITALS: BP 147/105; PULSE 93; TEMP 36.2; O2SAT 97; BMI 23.9
[2024-12-31] MEDS: FERRIC SUBSULFATE 8 ML SOLUTION TOPICAL (09:38)
[2024-12-31] MEDS: IODINE/POTASSIUM IODIDE 8 ML SOLUTION TOPICAL (09:38)
--- NOTE | 2024-12-31 09:53 | P.ON_ITS ---
Brief Operative Note Date of procedure: 12/31/24 Pre-op diagnosis general: cervical dysplasia(hgsil) Post-op diagnosis: same as pre-op Procedure: NAME OF PROCEDURE: [leep ] PROCEDURE: Patient was taken back to the Operating Room where she was given general anesthesia without difficulty. She was then placed in the dorsal lithotomy position. She was then prepped and draped in the normal sterile fashion. A weighted speculum was placed into the patient's vagina. The anterior lip of the cervix was identified and grasped with a single-tooth tenaculum. The patient's cervix was then copiously irrigated using vinegar.? Then, a Lugol Solution was also placed onto the patient's cervix which demonstrated increased uptake of the Lugol solution at the [?2 ] o?clock and [? 7] o?clock positions.? At that time, the LEEP portion of the procedure was performed, including both the [? 2] o?clock and [? 7] o?clock positions. The ectocervix was sent out to Pathology. The patient's cervix was then coagulated using suction cautery. Excellent he mostasis was assured.? Monsel Solution was then placed onto the patient's cervix to help maintain adequate hemostasis. All instruments were removed from the patient's vagina. The anterior lip of the cervix demonstrated excellent hemostasis.? The patient tolerated the procedure well. Sponge, lap, and needle counts were correct x 2. The patient was taken to Recovery Room in stable condition. Anesthesia: MAC Surgeon: Guillaume Vasquez Estimated blood loss (mL): 10 Pathology: other (ectocervical tissue) Condition: stable Disposition: PACU Urinary Catheter Management Urinary Catheter Management Straight: Cath placed during this visit: no
[2024-12-31 09:57] VITALS: BP 133/94; PULSE 101; TEMP 36.3; O2SAT 94
[2024-12-31 10:12] VITALS: BP 129/98; PULSE 87; O2SAT 95
[2024-12-31 10:42] VITALS: BP 140/98; PULSE 84
== END 2024-12-31 10:42 | disposition home or self-care (01) ==
PROVIDERS: PCP Family Medicine; Visit Provider Obstetrics & Gynecology
PROC: (CPT 940; principal; 2024-12-31 08:40)
DX: N87.1 Moderate cervical dysplasia (principal); I10 Essential (primary) hypertension; E03.9 Hypothyroidism, unspecified; F41.9 Anxiety disorder, unspecified; Z87.891 Personal history of nicotine dependence
CPT/HCPCS: 57522; 36415; 84702; 85025; J1100; J1171; J1885; J2405; J2704; J3010